=== PATIENT | male | born 1950 | race African-American/Black ===

== ENCOUNTER 2017-08-12 09:00 | Outpatient (CLI) | payer MEDICARE, OTHER, SELFPAY ==
[2017-08-12] VITALS (11 sets, daily range): BP systolic 126–161; BP diastolic 71–91; PULSE 69–83; RESP 18; TEMP 36.4–36.5; O2SAT 97–98; BMI 27.3
[2017-08-12 09:26] LABS: Eosinophils # 0.1 K/mm3 (0.0-0.4); Hematocrit 41.4 % (42.0-52.0); Hemoglobin 13.7 g/dL (14.1-18.0); Lymphocytes # 1.5 K/mm3 (0.7-4.5); Mean Corpuscular HGB Conc 33.2 g/dL (31.8-35.4); Mean Corpuscular Hemoglobin 29.2 pg (27.0-31.2); Mean Platelet Volume 8.8 fl (7.4-10.4); Monocytes # 0.3 K/mm3 (0.1-1.0); Monocytes % 8.8 % (1.7-9.3); Neutrophils # 1.4 K/mm3 (1.8-7.8); Neutrophils % 42.2 % (37.0-80.0); Platelet Count 234 K/mm3 (142-424); Red Blood Count 4.71 M/mm3 (4.60-6.20); Red Cell Distribution Width 12.9 % (11.5-17.5); White Blood Count 3.2 K/mm3 (4.8-10.8)
[2017-08-12 09:41] LABS: Alanine Aminotransferase 24 U/L (12-78); Albumin Level 3.2 gm/dL (3.4-5.0); Albumin/Globulin Ratio 0.9 (1.1-1.8); Alkaline Phosphatase 64 U/L (46-116); Anion Gap 9.8 mEq/L (5-15); Aspartate Amino Transferase 15 U/L (15-37); Bilirubin,Total 0.4 mg/dL (0.2-1.0); Blood Urea Nitrogen 15 mg/dL (7-18); Calcium 8.1 mg/dL (8.5-10.1); Carbon Dioxide 27 mmol/L (21.0-32.0); Chloride 107 mmol/L (98-107); Creatinine Clearance Estimated 85 mL/min (0-300); Creatinine,Serum 0.97 mg/dL (0.70-1.30); Estimated Glomerular Filt Rate 77 ml/min (>60); GFR (African American) 93 ML/MIN (>60); Globulin 3.6 gm/dl (1.3-3.2); Glucose 98 mg/dL (74-106); Potassium 3.8 mmoL/L (3.5-5.1); Sodium 140 mmol/L (136-145); Total Protein,Serum 6.8 gm/dL (6.4-8.2)
[2017-08-12 09:44] LABS: C-Reactive Protein < 0.2 mg/L (0.0-0.9)
== END 2017-08-12 12:50 | disposition home or self-care (01) ==
LOC: INF 09:25
PROVIDERS: Visit Provider Internal Medicine Gastroenterology
DX: K51.90 Ulcerative colitis, unspecified, without complications (principal)
CPT/HCPCS: 80053; 85025; 86140; 96365; 96366; 96413; 96415; J1745

== ENCOUNTER 2017-10-14 09:00 | Outpatient (CLI) | payer MEDICARE, OTHER, SELFPAY ==
[2017-10-14] VITALS (10 sets, daily range): BP systolic 129–173; BP diastolic 75–89; PULSE 64–82; RESP 18; TEMP 36.6; O2SAT 96–98; BMI 29.0
[2017-10-14 10:07] LABS: Basophils % 1.2 % (0.1-2.0); Hemoglobin 14.3 g/dL (14.1-18.0); Lymphocytes # 1.6 K/mm3 (0.7-4.5); Lymphocytes % 49.6 K/mm3 (10-50); Mean Corpuscular HGB Conc 32.6 g/dL (31.8-35.4); Mean Corpuscular Hemoglobin 28.9 pg (27.0-31.2); Mean Corpuscular Volume 88.7 fl (80-94); Mean Platelet Volume 9.4 fl (7.4-10.4); Monocytes # 0.3 K/mm3 (0.1-1.0); Monocytes % 8.5 % (1.7-9.3); Neutrophils # 1.3 K/mm3 (1.8-7.8); Neutrophils % 39.7 % (37.0-80.0); Platelet Count 191 K/mm3 (142-424); Red Blood Count 4.96 M/mm3 (4.60-6.20); Red Cell Distribution Width 12.8 % (11.5-17.5); White Blood Count 3.3 K/mm3 (4.8-10.8)
[2017-10-14 10:10] LABS: Alanine Aminotransferase 10 U/L (12-78); Albumin Level 3.4 gm/dL (3.4-5.0); Albumin/Globulin Ratio 0.9 (1.1-1.8); Alkaline Phosphatase 62 U/L (46-116); Anion Gap 10.6 mEq/L (5-15); Aspartate Amino Transferase 13 U/L (15-37); Bilirubin,Total 0.5 mg/dL (0.2-1.0); Blood Urea Nitrogen 17 mg/dL (7-18); Calcium 8.4 mg/dL (8.5-10.1); Carbon Dioxide 26 mmol/L (21.0-32.0); Chloride 108 mmol/L (98-107); Creatinine Clearance Estimated 91 mL/min (0-300); Creatinine,Serum 0.92 mg/dL (0.70-1.30); Estimated Glomerular Filt Rate 82 ml/min (>60); GFR (African American) 99 ML/MIN (>60); Globulin 3.9 gm/dl (1.3-3.2); Glucose 100 mg/dL (74-106); Potassium 3.6 mmoL/L (3.5-5.1); Sodium 141 mmol/L (136-145); Total Protein,Serum 7.3 gm/dL (6.4-8.2)
[2017-10-14 10:15] LABS: C-Reactive Protein < 0.2 mg/L (0.0-0.9)
--- NOTE | 2017-10-14 13:33 | XR_ITS ---
XR hip RT 2-3V w/pelvis HISTORY: ITS.REASON: RT HIP PAIN ON SCOLIOSIS PT ORDERING PHYSICIAN: Brayden Steward MD PATIENT AGE: 66 years COMPARISON: None FINDINGS: No fracture or dislocation. No lytic changes. Mild sclerosis superior aspect of left SI joint. Degenerative changes lower lumbar spine. There is an oval density overlying left iliac crest laterally at 12 mm and could be something within the soft tissues or within the bone itself. IMPRESSION: 1. Negative right hip. 2. Other findings as described above
== END 2017-10-14 13:20 | disposition home or self-care (01) ==
PROVIDERS: PCP Family Medicine; Visit Provider Internal Medicine Gastroenterology
DX: K51.90 Ulcerative colitis, unspecified, without complications (principal); M25.551 Pain in right hip
CPT/HCPCS: 73502; 80053; 85025; 86140; 96413; 96415; J1745

== ENCOUNTER 2017-12-16 08:35 | Outpatient (CLI) | payer MEDICARE, OTHER, SELFPAY ==
[2017-12-16] VITALS (9 sets, daily range): BP systolic 137–166; BP diastolic 83–96; PULSE 63–79; RESP 18; TEMP 36.6; O2SAT 97–98; BMI 28.3
[2017-12-16 09:32] LABS: Basophils % 1.1 % (0.1-2.0); Eosinophils # 0.1 K/mm3 (0.0-0.4); Eosinophils % 2.7 % (0.1-12.0); Hematocrit 43.6 % (42.0-52.0); Hemoglobin 14.7 g/dL (14.1-18.0); Lymphocytes # 1.8 K/mm3 (0.7-4.5); Lymphocytes % 46.5 K/mm3 (10-50); Mean Corpuscular HGB Conc 33.7 g/dL (31.8-35.4); Mean Corpuscular Hemoglobin 28.9 pg (27.0-31.2); Mean Corpuscular Volume 85.7 fl (80-94); Mean Platelet Volume 9.9 fl (7.4-10.4); Monocytes # 0.3 K/mm3 (0.1-1.0); Monocytes % 8.9 % (1.7-9.3); Neutrophils # 1.6 K/mm3 (1.8-7.8); Neutrophils % 40.8 % (37.0-80.0); Platelet Count 200 K/mm3 (142-424); Red Blood Count 5.09 M/mm3 (4.60-6.20); Red Cell Distribution Width 13.4 % (11.5-17.5); White Blood Count 3.8 K/mm3 (4.8-10.8)
[2017-12-16 09:33] LABS: Alanine Aminotransferase 22 U/L (12-78); Albumin Level 3.6 gm/dL (3.4-5.0); Albumin/Globulin Ratio 0.9 (1.1-1.8); Alkaline Phosphatase 73 U/L (46-116); Anion Gap 14.5 mEq/L (5-15); Aspartate Amino Transferase 13 U/L (15-37); Bilirubin,Total 0.6 mg/dL (0.2-1.0); Blood Urea Nitrogen 19 mg/dL (7-18); Calcium 8.8 mg/dL (8.5-10.1); Carbon Dioxide 25 mmol/L (21.0-32.0); Chloride 111 mmol/L (98-107); Creatinine Clearance Estimated 71 mL/min (0-300); Creatinine,Serum 1.22 mg/dL (0.70-1.30); Estimated Glomerular Filt Rate 59 ml/min (>60); GFR (African American) 71 ML/MIN (>60); Glucose 100 mg/dL (74-106); Potassium 3.5 mmoL/L (3.5-5.1); Sodium 147 mmol/L (136-145); Total Protein,Serum 7.6 gm/dL (6.4-8.2)
[2017-12-16 09:34] LABS: C-Reactive Protein < 0.2 mg/L (0.0-0.9)
== END 2017-12-16 12:40 | disposition home or self-care (01) ==
LOC: INF 08:35
PROVIDERS: PCP Family Medicine; Visit Provider Internal Medicine Gastroenterology
DX: K51.90 Ulcerative colitis, unspecified, without complications (principal)
CPT/HCPCS: 80053; 85025; 86140; 96413; 96415; J1745

== ENCOUNTER 2017-12-31 09:00 | Outpatient (RCR) | payer MEDICARE, OTHER, SELFPAY ==
--- NOTE | 2017-10-27 08:47 | HMH.PTOPEV ---
Rehab Outpatient Evaluation Rehab OP Evaluation Start: 10/27/17 08:34 Freq: Status: Active Protocol: Document 10/27/17 08:34 CINDY (Rec: 10/27/17 08:47 CINDY [id number]) Electronically Signed By Dru De Los Santos, PT 10/27/17 08:34 Outpatient Therapy Subjective History Subjective History Pt reports h/o chronic LBP beginning ~2 yrs ago, with most recent exacerbation beginning with insidious onset ~1 month ago. Pt reports mild R sided LBP with more intense R LE radicular s/s from R hip /glut area to mid thigh ( lateral). PMH: lumbar spine DDD, scoliosis Chief Complaint Pain Stiff Paresthesia Weakness Symptom Type Ache Throb Sharp Symptoms Relieved By Rest/Positioning Heat Ice Symptoms Aggravated By Sitting Standing Physical Activity Twisting Walking Lifting Prior Functional Limitations None Current Functional Limitations Lifting Housework Standing Sitting Walking Symptom Description Constant but Variable Level of pain today (0-10) 3 Pain scale - at its best (0-10) 3 Pain scale - at its worst (0-10) 8 Lumbopelvic Eval Posture Thoracic Spine Posture Standing Position Fixed Scoliosis on (R) Lumbar Spine Posture Standing Position Flattened Assistive device Assistive Devices None / NA Palapation tenderness right lumbar spinal tenderness Yes: 2/4 paraspinal tenderness Yes: 2/4 buttock tenderness Yes: 3/4 Accessory Movement T-spine Vertebrae Accessory Movements Central P/A Bejou that Elicit Symptoms T11 bilateral T12 bilateral L-spine Vertebrae Accessory Movements Central P/A Bejou that Elicit Symptoms L2 bilateral L3 bilateral L4 bilateral L5 bilateral Range of Motion Lumbar Spine Active Flexion Range of 0-60 Motion (degrees)
--- NOTE | 2017-12-29 11:09 | HMH.RHREAS ---
Rehab Reassessment Rehab OP Re-assessment Start: 12/29/17 08:13 Freq: Status: Active Protocol: Document 12/29/17 08:14 CINDY (Rec: 12/29/17 08:19 CINDY [id number]) Electronically Signed By Dru De Los Santos, PT 12/29/17 08:14 Rehab Re-assessment Subjective Subjective Pt reports intermittent R hip pain @8/10 on VAS, however, reports all other LBP related s/s are 85% better overall since I EVAL Objective Objective Notes AROM L-SPINE FLX 0-90, EXT 0- 30, R SB 0-28, L SB 0-35 MMT: B LE'S WFL TTP: R LUMBAR PARA. MM 07/31, R PIRI. MM 07/31 Assessment Progress Assessment Progressing as Expected Assessment Notes PT W/IMPROVED AROM, STRENGTH, AND TTP Patient goals met STG'S 03/04 LTG'S 10 Goals Not Met LTG'S 10 Plan Plan PT TO CONTINUE W/SKILLED P.T. TO MAKE FURTHER IMPROVEMENTS WITH ROM AND TTP TO ALLOW FOR OPTIMAL FUNCTION Frequency of Therapy 1-2X/WK Duration of therapy 2-4WKS Time and Billing Re-Eval Time 15 Re-Eval Billing Units 0 PHYSICIAN CERTIFICATION: I certify the specified therapy services for Simba Cuevas JR are required, authorized, and reviewed every 30 days.
== END 2017-12-31 09:01 | disposition home or self-care (01) ==
LOC: PT 09:00
PROVIDERS: PCP Family Medicine; Visit Provider Nurse Practitioner
DX: M25.551 Pain in right hip (principal)
CPT/HCPCS: 97010; 97012; 97014; 97035; 97110; 97164; G0283

== ENCOUNTER 2018-02-10 09:08 | Outpatient (CLI) | payer MEDICARE, OTHER, SELFPAY ==
[2018-02-10] VITALS (11 sets, daily range): BP systolic 132–172; BP diastolic 85–113; PULSE 70–88; RESP 16–18; TEMP 36.2; BMI 27.6
[2018-02-10 09:43] LABS: Basophils % 1.4 % (0.1-2.0); Eosinophils % 1.4 % (0.1-12.0); Hematocrit 44.1 % (42.0-52.0); Hemoglobin 13.9 g/dL (14.1-18.0); Lymphocytes # 1.4 K/mm3 (0.7-4.5); Lymphocytes % 46.7 K/mm3 (10-50); Mean Corpuscular HGB Conc 31.5 g/dL (31.8-35.4); Mean Corpuscular Hemoglobin 27.7 pg (27.0-31.2); Mean Corpuscular Volume 87.8 fl (80-94); Mean Platelet Volume 9.2 fl (7.4-10.4); Monocytes # 0.3 K/mm3 (0.1-1.0); Monocytes % 8.8 % (1.7-9.3); Neutrophils # 1.2 K/mm3 (1.8-7.8); Neutrophils % 41.7 % (37.0-80.0); Platelet Count 186 K/mm3 (142-424); Red Blood Count 5.02 M/mm3 (4.60-6.20); Red Cell Distribution Width 13.3 % (11.5-17.5); White Blood Count 2.9 K/mm3 (4.8-10.8)
[2018-02-10 09:59] LABS: Alanine Aminotransferase 23 U/L (12-78); Albumin Level 3.2 gm/dL (3.4-5.0); Albumin/Globulin Ratio 0.9 (1.1-1.8); Alkaline Phosphatase 66 U/L (46-116); Anion Gap 11.1 mEq/L (5-15); Aspartate Amino Transferase 10 U/L (15-37); Bilirubin,Total 0.5 mg/dL (0.2-1.0); Blood Urea Nitrogen 13 mg/dL (7-18); Calcium 8.1 mg/dL (8.5-10.1); Carbon Dioxide 26 mmol/L (21.0-32.0); Chloride 109 mmol/L (98-107); Creatinine Clearance Estimated 85 mL/min (0-300); Creatinine,Serum 0.96 mg/dL (0.70-1.30); Estimated Glomerular Filt Rate 78 ml/min (>60); GFR (African American) 94 ML/MIN (>60); Globulin 3.7 gm/dl (1.3-3.2); Glucose 94 mg/dL (74-106); Potassium 4.1 mmoL/L (3.5-5.1); Sodium 142 mmol/L (136-145); Total Protein,Serum 6.9 gm/dL (6.4-8.2)
[2018-02-10 10:00] LABS: C-Reactive Protein < 0.2 mg/L (0.0-0.9)
== END 2018-02-10 13:05 | disposition home or self-care (01) ==
LOC: INF 09:08
PROVIDERS: PCP Family Medicine; Visit Provider Internal Medicine Gastroenterology
DX: K51.90 Ulcerative colitis, unspecified, without complications (principal)
CPT/HCPCS: 80053; 85025; 86140; 96413; 96415; J1745

== ENCOUNTER 2018-04-01 09:15 | Outpatient (CLI) | payer MEDICARE, OTHER, SELFPAY ==
[2018-04-01] VITALS (7 sets, daily range): BP systolic 140–150; BP diastolic 71–85; PULSE 72–92; RESP 18; TEMP 36.6; O2SAT 96–98; BMI 27.6
[2018-04-01 09:49] LABS: Basophils % 0.8 % (0.1-2.0); Eosinophils # 0.1 K/mm3 (0.0-0.4); Eosinophils % 1.6 % (0.1-12.0); Hematocrit 41.4 % (42.0-52.0); Hemoglobin 13.6 g/dL (14.1-18.0); Lymphocytes # 1.5 K/mm3 (0.7-4.5); Lymphocytes % 43.4 K/mm3 (10-50); Mean Corpuscular HGB Conc 32.9 g/dL (31.8-35.4); Mean Corpuscular Hemoglobin 28.5 pg (27.0-31.2); Mean Corpuscular Volume 86.6 fl (80-94); Monocytes # 0.3 K/mm3 (0.1-1.0); Monocytes % 7.2 % (1.7-9.3); Neutrophils # 1.6 K/mm3 (1.8-7.8); Neutrophils % 47.1 % (37.0-80.0); Platelet Count 212 K/mm3 (142-424); Red Blood Count 4.77 M/mm3 (4.60-6.20); White Blood Count 3.4 K/mm3 (4.8-10.8)
[2018-04-01 10:01] LABS: Alanine Aminotransferase 11 U/L (12-78); Albumin Level 3.1 gm/dL (3.4-5.0); Albumin/Globulin Ratio 0.7 (1.1-1.8); Alkaline Phosphatase 82 U/L (46-116); Anion Gap 12.6 mEq/L (5-15); Aspartate Amino Transferase 13 U/L (15-37); Bilirubin,Total 0.5 mg/dL (0.2-1.0); Blood Urea Nitrogen 16 mg/dL (7-18); C-Reactive Protein 0.7 mg/L (0.0-0.9); Calcium 8.3 mg/dL (8.5-10.1); Carbon Dioxide 25 mmol/L (21.0-32.0); Chloride 111 mmol/L (98-107); Creatinine Clearance Estimated 74 mL/min (0-300); Creatinine,Serum 1.15 mg/dL (0.70-1.30); Estimated Glomerular Filt Rate 63 ml/min (>60); GFR (African American) 77 ML/MIN (>60); Globulin 4.2 gm/dl (1.3-3.2); Glucose 105 mg/dL (74-106); Potassium 3.6 mmoL/L (3.5-5.1); Sodium 145 mmol/L (136-145); Total Protein,Serum 7.3 gm/dL (6.4-8.2)
== END 2018-04-01 12:30 | disposition home or self-care (01) ==
LOC: INF 09:15
PROVIDERS: PCP Family Medicine; Visit Provider Internal Medicine Gastroenterology
DX: K51.90 Ulcerative colitis, unspecified, without complications (principal)
CPT/HCPCS: 80053; 85025; 86140; 96413; 96415; J1745

== ENCOUNTER 2018-06-01 09:02 | Outpatient (CLI) | payer MEDICARE, OTHER, SELFPAY ==
[2018-06-01] VITALS (8 sets, daily range): BP systolic 139–163; BP diastolic 74–91; PULSE 73–85; RESP 18–20; TEMP 36.4–36.6; O2SAT 95–97; BMI 27.6
[2018-06-01 09:41] LABS: Basophils % 0.9 % (0.1-2.0); Eosinophils # 0.1 K/mm3 (0.0-0.4); Eosinophils % 1.5 % (0.1-12.0); Hematocrit 45.7 % (42.0-52.0); Hemoglobin 14.4 g/dL (14.1-18.0); Lymphocytes # 1.7 K/mm3 (0.7-4.5); Lymphocytes % 51.7 K/mm3 (10-50); Mean Corpuscular HGB Conc 31.4 g/dL (31.8-35.4); Mean Corpuscular Hemoglobin 28.2 pg (27.0-31.2); Mean Corpuscular Volume 89.6 fl (80-94); Monocytes # 0.2 K/mm3 (0.1-1.0); Monocytes % 6.8 % (1.7-9.3); Neutrophils # 1.3 K/mm3 (1.8-7.8); Platelet Count 206 K/mm3 (142-424); Red Cell Distribution Width 14.1 % (11.5-17.5); White Blood Count 3.2 K/mm3 (4.8-10.8)
[2018-06-01 09:44] LABS: MANUAL DIFFERENTIAL MANUAL DIFFERENTIAL (MANUAL DIFF)
[2018-06-01 09:50] LABS: Alanine Aminotransferase 26 U/L (12-78); Albumin Level 3.2 gm/dL (3.4-5.0); Albumin/Globulin Ratio 0.8 (1.1-1.8); Alkaline Phosphatase 84 U/L (46-116); Anion Gap 10.7 mEq/L (5-15); Aspartate Amino Transferase 13 U/L (15-37); Bilirubin,Total 0.4 mg/dL (0.2-1.0); Blood Urea Nitrogen 20 mg/dL (7-18); C-Reactive Protein < 0.2 mg/L (0.0-0.9); Calcium 8.3 mg/dL (8.5-10.1); Carbon Dioxide 28 mmol/L (21.0-32.0); Chloride 108 mmol/L (98-107); Creatinine Clearance Estimated 72 mL/min (0-300); Creatinine,Serum 1.17 mg/dL (0.70-1.30); Estimated Glomerular Filt Rate 62 ml/min (>60); GFR (African American) 75 ML/MIN (>60); Globulin 4.2 gm/dl (1.3-3.2); Glucose 93 mg/dL (74-106); Potassium 3.7 mmoL/L (3.5-5.1); Sodium 143 mmol/L (136-145); Total Protein,Serum 7.4 gm/dL (6.4-8.2)
[2018-06-01 10:02] LABS: Lymphocytes % 49 % (10-50); Monocytes % 7 % (2-9); Neutrophils % 42 % (42-76); Platelet Estimate Normal; RBC Morphology Normal; Total Cells Counted 100
== END 2018-06-01 12:50 | disposition home or self-care (01) ==
LOC: INF 09:02
PROVIDERS: Visit Provider Internal Medicine Gastroenterology
DX: K51.90 Ulcerative colitis, unspecified, without complications (principal)
CPT/HCPCS: 80053; 85007; 85025; 86140; 86480; 96413; 96415; J1745

== ENCOUNTER → 2018-07-03 07:48 | Outpatient (CLI) | payer MEDICARE, OTHER, SELFPAY ==
--- NOTE | 2018-07-03 07:52 | MR_ITS ---
MR lumbar spine wo con, MR 3-d myelogram/MRCP HISTORY: LBP on RT side X1YR. Pain and numbness down RT leg and into hip. Weakness RT leg. No trauma. NO HX back surgery. ITS.REASON: LUMBAR SPINE PAIN ORDERING PHYSICIAN: Rosa Jones MD PATIENT AGE: 67 years Comparison: X-RAY 02-14-15 TECHNIQUE: Standard multiplanar multiecho sequences are performed without contrast. 3-D MIP and myelographic images are also rendered and reviewed FINDINGS: There is upper lumbar scoliosis convex right measuring 30 degrees and lower lumbar scoliosis convex left measuring 26 degrees. There is diffuse lumbar spondylosis as described below. The spinal cord and at the T12-L1 level. T11-T12: Degenerative disc disease with small left paracentral/foraminal disc protrusion causing left lateral recess narrowing and moderate left-sided foraminal narrowing. There is facet hypertrophic change with moderate to severe bilateral foraminal narrowing. T12-L1: Degenerative disc disease with bulging disc along with facet and ligamentum flavum hypertrophy with mild bilateral foraminal narrowing. L1-L2: Degenerative disc disease with bulging disc with moderate facet and ligamentum flavum hypertrophy greater on the left with moderate left lateral recess narrowing and severe left-sided foraminal narrowing. There are type III endplate changes L2-L3: Degenerative disc disease with bulging disc with facet and ligamentum flavum hypertrophy and moderate bilateral lateral recess narrowing with severe left-sided foraminal narrowing. L3-L4: Degenerative disc disease with bulging disc. There is facet hypertrophic change which is greater on the right a bone spur from the facets projecting medially with impingement upon the right L4 nerve root with moderate right-sided foraminal narrowing. There is minimal retrolisthesis of L3 of 2 to 3 mm. L4-L5: Severe degenerative disc disease with bulging disc. There is a small right paracentral/foraminal disc osteophyte complex that are best detected on sagittal images with moderate to severe right-sided foraminal narrowing. Type II endplate changes. L5-S1: Facet and ligamentum flavum hypertrophy with concentric bulging disc with moderate to severe bilateral foraminal narrowing. Incidental left renal cyst noted at 19 mm. IMPRESSION: Abnormal MRI of the lumbar spine. There is scoliosis with severe spondylosis with multilevel degenerative disc disease with bulging discs, disc osteophyte complexes, with facet arthritic change and facet and ligamentum flavum hypertrophy with very levels of foraminal and lateral recess narrowing. Please see above for description at each level. No extruded herniated disc or canal stenosis is evident.
== END ==
PROVIDERS: PCP Family Medicine; Visit Provider Family Medicine
DX: M54.5 Low back pain (principal)
CPT/HCPCS: 72148; 76376

== ENCOUNTER 2018-08-04 08:29 | Outpatient (CLI) | payer MEDICARE, OTHER, SELFPAY ==
[2018-08-04] VITALS (8 sets, daily range): BP systolic 135–145; BP diastolic 71–88; PULSE 67–73; RESP 18–20; TEMP 36.9; O2SAT 97–98; BMI 27.6
[2018-08-04 08:51] LABS: Basophils % 0.7 % (0.1-2.0); Eosinophils # 0.1 K/mm3 (0.0-0.4); Eosinophils % 1.9 % (0.1-12.0); Hematocrit 46.5 % (42.0-52.0); Hemoglobin 15.5 g/dL (14.1-18.0); Lymphocytes # 1.9 K/mm3 (0.7-4.5); Lymphocytes % 44.7 % (10-50); Mean Corpuscular HGB Conc 33.4 g/dL (31.8-35.4); Mean Corpuscular Hemoglobin 29.2 pg (27.0-31.2); Mean Corpuscular Volume 87.6 fl (80-94); Mean Platelet Volume 8.5 fl (7.4-10.4); Monocytes # 0.3 K/mm3 (0.1-1.0); Monocytes % 6.2 % (1.7-9.3); Neutrophils # 1.9 K/mm3 (1.8-7.8); Neutrophils % 46.5 % (37.0-80.0); Platelet Count 208 K/mm3 (142-424); Red Cell Distribution Width 13.7 % (11.5-17.5); White Blood Count 4.2 K/mm3 (4.8-10.8)
[2018-08-04 09:05] LABS: Alanine Aminotransferase 26 U/L (12-78); Albumin Level 3.4 gm/dL (3.4-5.0); Albumin/Globulin Ratio 0.8 (1.1-1.8); Alkaline Phosphatase 78 U/L (46-116); Anion Gap 13.9 mEq/L (5-15); Aspartate Amino Transferase 16 U/L (15-37); Bilirubin,Total 0.8 mg/dL (0.2-1.0); Blood Urea Nitrogen 15 mg/dL (7-18); Calcium 8.4 mg/dL (8.5-10.1); Carbon Dioxide 24 mmol/L (21.0-32.0); Chloride 107 mmol/L (98-107); Creatinine Clearance Estimated 78 mL/min (50-200); Creatinine,Serum 1.09 mg/dL (0.70-1.30); Estimated Glomerular Filt Rate 67 ml/min (>60); GFR (African American) 81 ML/MIN (>60); Globulin 4.1 gm/dl (1.3-3.2); Glucose 99 mg/dL (74-106); Potassium 3.9 mmoL/L (3.5-5.1); Sodium 141 mmol/L (136-145); Total Protein,Serum 7.5 gm/dL (6.4-8.2)
[2018-08-04 09:46] LABS: C-Reactive Protein < 0.2 mg/L (0.0-0.9)
== END 2018-08-04 11:45 | disposition home or self-care (01) ==
PROVIDERS: Visit Provider Internal Medicine Gastroenterology
DX: K51.90 Ulcerative colitis, unspecified, without complications (principal)
CPT/HCPCS: 80053; 85025; 86140; 96413; 96415; J1745

== ENCOUNTER 2018-09-29 08:05 | Outpatient (CLI) | payer MEDICARE, OTHER, SELFPAY ==
[2018-09-29] VITALS (9 sets, daily range): BP systolic 140–169; BP diastolic 87–101; PULSE 72–82; RESP 16; TEMP 36.3; O2SAT 99; BMI 30.5
[2018-09-29 08:56] LABS: Basophils % 0.8 % (0.1-2.0); Eosinophils # 0.1 K/mm3 (0.0-0.4); Eosinophils % 2.8 % (0.1-12.0); Hematocrit 43.6 % (42.0-52.0); Hemoglobin 14.6 g/dL (14.1-18.0); Lymphocytes # 1.6 K/mm3 (0.7-4.5); Lymphocytes % 34.7 % (10-50); Mean Corpuscular HGB Conc 33.6 g/dL (31.8-35.4); Mean Corpuscular Hemoglobin 29.9 pg (27.0-31.2); Mean Corpuscular Volume 89.1 fl (80-94); Mean Platelet Volume 8.5 fl (7.4-10.4); Monocytes # 0.3 K/mm3 (0.1-1.0); Monocytes % 7.2 % (1.7-9.3); Neutrophils # 2.5 K/mm3 (1.8-7.8); Neutrophils % 54.5 % (37.0-80.0); Platelet Count 232 K/mm3 (142-424); Red Blood Count 4.89 M/mm3 (4.60-6.20); Red Cell Distribution Width 13.4 % (11.5-17.5); White Blood Count 4.5 K/mm3 (4.8-10.8)
[2018-09-29 09:11] LABS: Alanine Aminotransferase 20 U/L (12-78); Albumin Level 3.2 gm/dL (3.4-5.0); Albumin/Globulin Ratio 0.7 (1.1-1.8); Alkaline Phosphatase 85 U/L (46-116); Anion Gap 11.7 mEq/L (5-15); Aspartate Amino Transferase 8 U/L (15-37); Bilirubin,Total 0.4 mg/dL (0.2-1.0); Blood Urea Nitrogen 16 mg/dL (7-18); C-Reactive Protein 0.3 mg/L (0.0-0.9); Calcium 8.7 mg/dL (8.5-10.1); Carbon Dioxide 29 mmol/L (21.0-32.0); Chloride 107 mmol/L (98-107); Creatinine Clearance Estimated 90 mL/min (50-200); Creatinine,Serum 1.04 mg/dL (0.70-1.30); Estimated Glomerular Filt Rate 71 ml/min (>60); GFR (African American) 86 ML/MIN (>60); Globulin 4.3 gm/dl (1.3-3.2); Glucose 97 mg/dL (74-106); Potassium 3.7 mmoL/L (3.5-5.1); Sodium 144 mmol/L (136-145); Total Protein,Serum 7.5 gm/dL (6.4-8.2)
== END 2018-09-29 11:50 | disposition home or self-care (01) ==
LOC: INF 08:16
PROVIDERS: Visit Provider Internal Medicine Gastroenterology
DX: K51.90 Ulcerative colitis, unspecified, without complications (principal)
CPT/HCPCS: 80053; 85025; 86140; 96413; 96415; J1745

== ENCOUNTER → 2018-10-27 10:06 | Outpatient (CLI) | payer MEDICARE, OTHER, SELFPAY ==
[2018-10-31 18:07] LABS: Calprotectin, Fecal 740 ug/g (0-120)
== END ==
PROVIDERS: Visit Provider Physician Assistant
DX: K51.90 Ulcerative colitis, unspecified, without complications (principal)
CPT/HCPCS: 83993

== ENCOUNTER → 2018-11-13 18:54 | Outpatient (CLI) | payer MEDICARE, OTHER, SELFPAY ==
[2018-11-13 11:38] VITALS: BMI 30.5
--- NOTE | 2018-11-13 18:57 | PC.NURSE ---
PT GOT LABS ONLY PER LAB
[2018-11-21 06:44] LABS: Anti-Infliximab Antibody <22 ng/mL (.); Infliximab Drug Level 1.9 ug/mL (.)
== END ==
PROVIDERS: Visit Provider Physician Assistant
DX: K51.90 Ulcerative colitis, unspecified, without complications (principal)
CPT/HCPCS: 36415; 80299; 82397

== ENCOUNTER 2018-11-27 08:00 | Outpatient (CLI) | payer MEDICARE, OTHER, SELFPAY ==
[2018-11-27] VITALS (10 sets, daily range): BP systolic 136–188; BP diastolic 83–101; PULSE 65–80; RESP 16–18; TEMP 36.3; O2SAT 99; BMI 30.5
[2018-11-27 08:36] LABS: Basophils % 0.6 % (0.1-2.0); Eosinophils # 0.1 K/mm3 (0.0-0.4); Eosinophils % 1.9 % (0.1-12.0); Hematocrit 43.9 % (42.0-52.0); Hemoglobin 14.8 g/dL (14.1-18.0); Lymphocytes # 2.2 K/mm3 (0.7-4.5); Lymphocytes % 48.9 % (10-50); Mean Corpuscular HGB Conc 33.8 g/dL (31.8-35.4); Mean Corpuscular Hemoglobin 29.4 pg (27.0-31.2); Mean Platelet Volume 8.1 fl (7.4-10.4); Monocytes # 0.3 K/mm3 (0.1-1.0); Monocytes % 6.3 % (1.7-9.3); Neutrophils # 1.9 K/mm3 (1.8-7.8); Neutrophils % 42.3 % (37.0-80.0); Platelet Count 235 K/mm3 (142-424); Red Blood Count 5.05 M/mm3 (4.60-6.20); Red Cell Distribution Width 13.2 % (11.5-17.5); White Blood Count 4.4 K/mm3 (4.8-10.8)
[2018-11-27 08:49] LABS: Alanine Aminotransferase 22 U/L (12-78); Albumin Level 3.3 gm/dL (3.4-5.0); Albumin/Globulin Ratio 0.7 (1.1-1.8); Alkaline Phosphatase 83 U/L (46-116); Anion Gap 10.6 mEq/L (5-15); Aspartate Amino Transferase 8 U/L (15-37); Bilirubin,Total 0.6 mg/dL (0.2-1.0); Blood Urea Nitrogen 11 mg/dL (7-18); Calcium 8.6 mg/dL (8.5-10.1); Carbon Dioxide 28 mmol/L (21.0-32.0); Chloride 105 mmol/L (98-107); Creatinine Clearance Estimated 88 mL/min (50-200); Creatinine,Serum 1.05 mg/dL (0.70-1.30); Estimated Glomerular Filt Rate 70 ml/min (>60); GFR (African American) 85 ML/MIN (>60); Globulin 4.6 gm/dl (1.3-3.2); Glucose 92 mg/dL (74-106); Potassium 3.6 mmoL/L (3.5-5.1); Sodium 140 mmol/L (136-145); Total Protein,Serum 7.9 gm/dL (6.4-8.2)
[2018-11-27 08:51] LABS: C-Reactive Protein < 0.2 mg/L (0.0-0.9)
== END 2018-11-27 11:45 | disposition home or self-care (01) ==
LOC: INF 08:11
PROVIDERS: Visit Provider Physician Assistant
DX: K51.90 Ulcerative colitis, unspecified, without complications (principal)
CPT/HCPCS: 80053; 85025; 86140; 96413; 96415; J1745

== ENCOUNTER 2019-01-19 13:00 | Outpatient (CLI) | payer MEDICARE, OTHER, SELFPAY ==
[2019-01-19] VITALS (11 sets, daily range): BP systolic 105–154; BP diastolic 70–99; PULSE 77–99; RESP 16–18; O2SAT 93–98; BMI 27.6
[2019-01-19 13:30] LABS: Basophils # 0.1 K/mm3 (0-0.2); Basophils % 1.2 % (0.1-2.0); Eosinophils # 0.1 K/mm3 (0.0-0.4); Eosinophils % 1.6 % (0.1-12.0); Hematocrit 37.5 % (42.0-52.0); Hemoglobin 11.4 g/dL (14.1-18.0); Lymphocytes # 1.4 K/mm3 (0.7-4.5); Lymphocytes % 27.7 % (10-50); Mean Corpuscular HGB Conc 30.4 g/dL (31.8-35.4); Mean Corpuscular Hemoglobin 26.9 pg (27.0-31.2); Mean Corpuscular Volume 88.6 fl (80-94); Monocytes # 0.4 K/mm3 (0.1-1.0); Monocytes % 8.3 % (1.7-9.3); Neutrophils % 61.2 % (37.0-80.0); Platelet Count 395 K/mm3 (142-424); Red Blood Count 4.23 M/mm3 (4.60-6.20); Red Cell Distribution Width 13.7 % (11.5-17.5)
[2019-01-19 13:40] LABS: Alanine Aminotransferase 17 U/L (12-78); Albumin Level 2.7 gm/dL (3.4-5.0); Albumin/Globulin Ratio 0.5 (1.1-1.8); Alkaline Phosphatase 133 U/L (46-116); Anion Gap 13.5 mEq/L (5-15); Aspartate Amino Transferase 11 U/L (15-37); Bilirubin,Total 0.4 mg/dL (0.2-1.0); Blood Urea Nitrogen 11 mg/dL (7-18); C-Reactive Protein 2.9 mg/L (0.0-0.9); Calcium 8.6 mg/dL (8.5-10.1); Carbon Dioxide 27 mmol/L (21.0-32.0); Chloride 104 mmol/L (98-107); Creatinine Clearance Estimated 79 mL/min (50-200); Creatinine,Serum 1.06 mg/dL (0.70-1.30); Estimated Glomerular Filt Rate 69 ml/min (>60); GFR (African American) 84 ML/MIN (>60); Globulin 5.3 gm/dl (1.3-3.2); Glucose 92 mg/dL (74-106); Potassium 3.5 mmoL/L (3.5-5.1); Sodium 141 mmol/L (136-145)
== END 2019-01-19 16:20 | disposition home or self-care (01) ==
LOC: INF 13:04
PROVIDERS: Visit Provider Internal Medicine Gastroenterology
DX: K51.90 Ulcerative colitis, unspecified, without complications (principal)
CPT/HCPCS: 80053; 85025; 86140; 96413; 96415; J1745

== ENCOUNTER 2019-03-16 13:09 | Outpatient (CLI) | payer MEDICARE, OTHER, SELFPAY ==
[2019-03-16] VITALS (10 sets, daily range): BP systolic 99–165; BP diastolic 71–104; PULSE 66–95; RESP 16–18; TEMP 36.4; O2SAT 96; BMI 27.6
[2019-03-16 13:33] LABS: Basophils % 0.9 % (0.1-2.0); Hemoglobin 11.3 g/dL (14.1-18.0); Lymphocytes # 1.7 K/mm3 (0.7-4.5); Lymphocytes % 44.2 % (10-50); Mean Corpuscular HGB Conc 30.4 g/dL (31.8-35.4); Mean Corpuscular Hemoglobin 24.1 pg (27.0-31.2); Mean Corpuscular Volume 79.2 fl (80-94); Mean Platelet Volume 8.4 fl (7.4-10.4); Monocytes # 0.3 K/mm3 (0.1-1.0); Neutrophils # 1.8 K/mm3 (1.8-7.8); Neutrophils % 46.9 % (37.0-80.0); Platelet Count 362 K/mm3 (142-424); Red Blood Count 4.68 M/mm3 (4.60-6.20); Red Cell Distribution Width 14.9 % (11.5-17.5); White Blood Count 3.9 K/mm3 (4.8-10.8)
[2019-03-16 14:11] LABS: Alanine Aminotransferase 13 U/L (12-78); Albumin Level 2.8 gm/dL (3.4-5.0); Albumin/Globulin Ratio 0.6 (1.1-1.8); Alkaline Phosphatase 96 U/L (46-116); Anion Gap 13.8 mEq/L (5-15); Aspartate Amino Transferase 9 U/L (15-37); Bilirubin,Total 0.3 mg/dL (0.2-1.0); Blood Urea Nitrogen 11 mg/dL (7-18); C-Reactive Protein 2.4 mg/dL (0.0-0.9); Calcium 8.6 mg/dL (8.5-10.1); Carbon Dioxide 26 mmol/L (21.0-32.0); Chloride 107 mmol/L (98-107); Creatinine Clearance Estimated 83 mL/min (50-200); Creatinine,Serum 1.01 mg/dL (0.70-1.30); Estimated Glomerular Filt Rate 73 ml/min (>60); GFR (African American) 89 ML/MIN (>60); Glucose 105 mg/dL (74-106); Potassium 3.8 mmoL/L (3.5-5.1); Sodium 143 mmol/L (136-145); Total Protein,Serum 7.8 gm/dL (6.4-8.2)
[2019-03-16 14:48] LABS: Ferritin 33 ng/mL (8-388)
[2019-03-18 08:19] LABS: Iron 23 ug/dL (38-169); UIBC 229 ug/dL (111-343)
[2019-03-19 09:41] LABS: Iron Saturation 9 % (15-55)
== END 2019-03-16 16:38 | disposition home or self-care (01) ==
LOC: INF 13:09
PROVIDERS: Visit Provider Internal Medicine Gastroenterology
DX: K51.90 Ulcerative colitis, unspecified, without complications (principal)
CPT/HCPCS: 80053; 82728; 83540; 83550; 85025; 86140; 96413; 96415; J1745

== ENCOUNTER → 2019-03-17 10:37 | Outpatient (CLI) | payer MEDICARE, OTHER, SELFPAY ==
[2019-03-19 09:51] LABS: Calprotectin, Fecal 322 ug/g (0-120)
== END ==
PROVIDERS: Visit Provider Physician Assistant
DX: K51.90 Ulcerative colitis, unspecified, without complications (principal)
CPT/HCPCS: 83993

== ENCOUNTER 2019-06-02 08:00 | Outpatient (CLI) | payer MEDICARE, OTHER, SELFPAY ==
[2019-06-02] VITALS (10 sets, daily range): BP systolic 129–155; BP diastolic 71–90; PULSE 67–83; RESP 16–18; TEMP 36.7; BMI 27.6
[2019-06-02 08:52] LABS: Basophils % 0.6 % (0.1-2.0); Eosinophils # 0.1 K/mm3 (0.0-0.4); Eosinophils % 1.9 % (0.1-12.0); Hemoglobin 12.5 g/dL (14.1-18.0); Lymphocytes # 1.9 K/mm3 (0.7-4.5); Lymphocytes % 41.8 % (10-50); Mean Corpuscular HGB Conc 30.6 g/dL (31.8-35.4); Mean Corpuscular Hemoglobin 25.2 pg (27.0-31.2); Mean Corpuscular Volume 82.6 fl (80-94); Mean Platelet Volume 9.1 fl (7.4-10.4); Monocytes # 0.3 K/mm3 (0.1-1.0); Monocytes % 6.2 % (1.7-9.3); Neutrophils # 2.2 K/mm3 (1.8-7.8); Neutrophils % 49.5 % (37.0-80.0); Platelet Count 256 K/mm3 (142-424); Red Blood Count 4.96 M/mm3 (4.60-6.20); Red Cell Distribution Width 15.8 % (11.5-17.5); White Blood Count 4.5 K/mm3 (4.8-10.8)
[2019-06-02 09:12] LABS: Alanine Aminotransferase 15 U/L (12-78); Albumin Level 3.2 gm/dL (3.4-5.0); Albumin/Globulin Ratio 0.7 (1.1-1.8); Alkaline Phosphatase 93 U/L (46-116); Anion Gap 11.1 mEq/L (5-15); Aspartate Amino Transferase 10 U/L (15-37); Bilirubin,Total 0.5 mg/dL (0.2-1.0); Blood Urea Nitrogen 12 mg/dL (7-18); Calcium 8.7 mg/dL (8.5-10.1); Carbon Dioxide 27 mmol/L (21.0-32.0); Chloride 106 mmol/L (98-107); Creatinine Clearance Estimated 84 mL/min (50-200); Creatinine,Serum 0.97 mg/dL (0.70-1.30); Estimated Glomerular Filt Rate 77 ml/min (>60); GFR (African American) 93 ML/MIN (>60); Globulin 4.4 gm/dl (1.3-3.2); Glucose 94 mg/dL (74-106); Potassium 4.1 mmoL/L (3.5-5.1); Sodium 140 mmol/L (136-145); Total Protein,Serum 7.6 gm/dL (6.4-8.2)
[2019-06-02 09:13] LABS: C-Reactive Protein < 0.2 mg/dL (0.0-0.9)
== END 2019-06-02 12:25 | disposition home or self-care (01) ==
LOC: INF 08:18
PROVIDERS: Visit Provider Internal Medicine Gastroenterology
DX: K51.90 Ulcerative colitis, unspecified, without complications (principal)
CPT/HCPCS: 80053; 85025; 86140; 96413; 96415; J1745

== ENCOUNTER 2019-06-03 08:00 | Outpatient (RCR) | payer MEDICARE, OTHER, SELFPAY | END 2019-06-03 08:05 | disposition home or self-care (01) | LOC: PT 08:00 | PROVIDERS: Visit Provider Neurological Surgery | DX: M54.5 Low back pain (principal) | CPT/HCPCS: 97010; 97110; 97163 ==

== ENCOUNTER 2019-07-27 08:29 | Outpatient (CLI) | payer MEDICARE, OTHER, SELFPAY ==
[2019-07-27] VITALS (8 sets, daily range): BP systolic 131–173; BP diastolic 73–95; PULSE 73–94; RESP 20; TEMP 36.7; O2SAT 98–99
== END 2019-07-27 12:00 | disposition home or self-care (01) ==
LOC: INF 08:29
PROVIDERS: Visit Provider Physician Assistant
DX: K51.90 Ulcerative colitis, unspecified, without complications (principal)
CPT/HCPCS: 96413; 96415; J1745

== ENCOUNTER → 2019-07-30 09:21 | Outpatient (CLI) | payer OTHER, SELFPAY ==
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
== END ==
PROVIDERS: PCP Nurse Practitioner Family; Visit Provider Nurse Practitioner Family
DX: R07.81 Pleurodynia (principal); M41.124 Adolescent idiopathic scoliosis, thoracic region; M54.6 Pain in thoracic spine; V89.2XXA Person injured in unspecified motor-vehicle accident, traffic, initial encounter
CPT/HCPCS: 71101; 72072

== ENCOUNTER 2019-09-29 09:01 | Outpatient (CLI) | payer MEDICARE, OTHER, SELFPAY ==
[2019-09-29] VITALS (11 sets, daily range): BP systolic 141–172; BP diastolic 82–104; PULSE 77–83; RESP 18; TEMP 36.5; O2SAT 98–99; BMI 27.6
[2019-09-29 09:22] LABS: Basophils % 1.2 % (0.1-2.0); Chloride 107 mmol/L (98-107); Eosinophils % 0.8 % (0.1-12.0); Hematocrit 43.7 % (42.0-52.0); Hemoglobin 13.7 g/dL (14.1-18.0); Lymphocytes # 1.9 K/mm3 (0.7-4.5); Lymphocytes % 57.6 % (10-50); Mean Corpuscular HGB Conc 31.4 g/dL (31.8-35.4); Mean Corpuscular Hemoglobin 26.4 pg (27.0-31.2); Mean Platelet Volume 9.2 fl (7.4-10.4); Monocytes # 0.2 K/mm3 (0.1-1.0); Monocytes % 7.1 % (1.7-9.3); Neutrophils # 1.1 K/mm3 (1.8-7.8); Neutrophils % 33.3 % (37.0-80.0); Platelet Count 227 K/mm3 (142-424); Potassium 3.8 mmoL/L (3.5-5.1); Red Blood Count 5.19 M/mm3 (4.60-6.20); Red Cell Distribution Width 14.3 % (11.5-17.5); Sodium 141 mmol/L (136-145); White Blood Count 3.3 K/mm3 (4.8-10.8)
[2019-09-29 09:24] LABS: Alanine Aminotransferase 15 U/L (12-78); Alkaline Phosphatase 80 U/L (38-126); Aspartate Amino Transferase 18 U/L (17-59); Bilirubin,Total 0.6 mg/dl (0.2-1.3); Blood Urea Nitrogen 15 mg/dl (9-20); Creatinine Clearance Estimated 84 mL/min (50-200); Estimated Glomerular Filt Rate 74 ml/min (>60); GFR (African American) 90 ML/MIN (>60); MANUAL DIFFERENTIAL MANUAL DIFFERENTIAL (MANUAL DIFF)
[2019-09-29 09:25] LABS: Albumin/Globulin Ratio 1.1 (1.1-1.8); Anion Gap 9.8 mEq/L (5-15); Calcium 8.8 mg/dl (8.4-10.2); Carbon Dioxide 28 mmol/L (22.0-30.0); Globulin 3.5 g/dL (1.3-3.2); Glucose 85 mg/dl (74-100); Total Protein,Serum 7.5 g/dl (6.3-8.2)
[2019-09-29 09:32] LABS: Lymphocytes % 57 % (10-50); Monocytes % 8 % (2-9); Neutrophils % 31 % (42-76); Platelet Estimate Normal; RBC Morphology Normal; Total Cells Counted 100
[2019-09-29 09:54] LABS: C-Reactive Protein 0.7 mg/L (0-4)
== END 2019-09-29 12:21 | disposition home or self-care (01) ==
LOC: INF 09:01
PROVIDERS: Visit Provider Physician Assistant
DX: K51.90 Ulcerative colitis, unspecified, without complications (principal)
CPT/HCPCS: 80053; 85007; 85025; 86140; 96413; 96415; J1745

== ENCOUNTER → 2019-10-12 12:18 | Outpatient (CLI) | payer MEDICARE, OTHER, SELFPAY ==
--- NOTE | 2019-10-12 12:29 | XR_ITS ---
PROCEDURE: XR MULTIPLE SPINE 4-5V CLINICAL INDICATION: THORACIC AND LOW BACK PAIN COMPARISON: LS5 LUMBAR SPINE 5 VIEWS from 02/14/2015 XR THORACIC SPINE 3V from 07/30/2019 FINDINGS: AP and lateral views are obtained of the thoracic lumbar spine. Status post prior thoracic and lumbar surgery with inter pedicular screws from T10 L5 and including 2 inter pedicular screws at S1 and S2 with the S2 screws extending into the ileitis on both sides with rods. Disc spacer devices are present at L2-L3 L3-L4 and L5-S1. There is some thoracolumbar scoliosis convex right with multilevel degenerative changes in the lower thoracic and lumbar spine. There is degenerative disc disease from T12-S1. No acute fracture or dislocation. No lytic or blastic change. IMPRESSION: Status post prior posterior fusion with underlying degenerative disc disease and thoracolumbar scoliosis convex right Dictated by: Carlos Pena MD 10/12/2019 13:13 Electronically signed by Carlos Pena MD in [place] 10/12/2019 13:13
== END ==
PROVIDERS: Visit Provider Neurological Surgery
DX: M54.6 Pain in thoracic spine (principal); M54.5 Low back pain
CPT/HCPCS: 72083

== ENCOUNTER 2019-12-01 15:33 | Emergency (ER) | payer MEDICARE, OTHER, SELFPAY ==
--- NOTE | 2019-12-01 | XR_ITS ---
PROCEDURE: XR CHEST PORTABLE CLINICAL HISTORY: REPOSITION PICC LINE COMPARISON: XR RIBS RT MIN 3V W CXR1V from 07/30/2019 XR CHEST PORTABLE PICC PLAC from 12/01/2019 FINDINGS: Left upper extremity PICC line has been reposition. The tip of the line is not well delineated however, the line no longer projects toward the neck and projects toward the superior vena cava. The tip may be at the SVC at the T6-T7 level. It does not appear to be within the right atrium or right ventricle. Metallic artifact from the overlying thoracic and lumbar inter pedicular screws with connecting rods obscures the tip of the line. Hiatal hernia is present. IMPRESSION: Repositioning of the PICC line with tip in the region of the superior vena cava Dictated by: Carlos Pena MD 12/01/2019 17:30 Electronically signed by Carlos Pena MD in [place] 12/01/2019 17:30
[2019-12-01 15:36] VITALS: BP 122/85; PULSE 80; RESP 20; TEMP 36.8; O2SAT 98; BMI 27.1
--- NOTE | 2019-12-01 15:48 | HMH.EDGENADL ---
ED Disposition Clinical Impression: Urinary hesitancy due to benign prostatic hyperplasia, PIC line (peripherally inserted central catheter) removal Disposition: Home, Self-Care Condition on Discharge: Good Referrals: Provider,Referral, [Primary Care Provider] - - Critical Care Critical Care Time: No Attestation: On 12/01/19, the high probability of a clinically significant, sudden or life threatening deterioration of the following system(s) required my full and direct attention, intervention and personal management. The time I documented below is in addition to time spent performing reported procedures but includes the following listed in this critical care notation. Medical Decision Making - Medical Records Medical records reviewed: Yes: I reviewed the patient's medical records. - Bereket Inquiry Pt receiving controlled substance: No Vital Signs: 12/01/19 15:36 Temperature 98.2 F Temperature Source Oral Pulse Rate [Right] 80 Respiratory Rate 20 Blood Pressure [Right Arm] 122/85 Blood Pressure Mean [Right Arm] 97 02 Sat by Pulse Oximetry 98 - Lab Data Lab results reviewed: Yes: I reviewed the patient's lab results. General Adult HPI - General Chief complaint: Extremity Problem,Nontraumatic Stated complaint: picc line issue Time Seen by Provider: 12/01/19 15:48 Mode of Arrival: EMS Limitations: No Limitations Description of Symptoms (Recalled from ER Triage Doc. by RN): Issue with PICC line per home health, pt PICC line lumen is broken off. - History of Present Illness HPI narrative: 69-year-old pleasant gentleman presents to the ED with a PICC line that his faulted. Apparently patient is getting IV antibiotic therapy for a abdominal infection. A subsequent PICC line was placed. Patient been at [facility] for rehab and he was just sent home yesterday. Patient is also getting cath every 4 hours and so I explained to the family how would really benefit the patient to have an indwelling Ovalle catheter and they seem to be agreement. Denies any swelling or pain in the area. - Related Data Home Medications Medication Instructions Recorded Confirmed Carbidopa/Levodopa [Sinemet 25-100 1 each PO TID 08/12/17 09/29/19 mg Tablet] Omeprazole [Omeprazole 20mg 20 mg PO BID 08/12/17 09/29/19 Capsule] Pramipexole Di-HCl [Mirapex ER] 4.5 mg PO DAILY 08/12/17 09/29/19 Rasagiline Mesylate [Azilect] 1 mg PO DAILY 08/12/17 09/29/19 clonazePAM [Clonazepam] 0.5 mg PO HS 08/12/17 09/29/19 Allergies Allergy/AdvReac Type Severity Reaction Status Date / Time No Known Allergies Allergy Verified 08/12/17 09:28 [facility] History - Hepatitis A Screen Drug use history?: No High risk sexual behaviors?: No History of sexually transmitted infection?: No Currently employed?: No Childcare worker?: No Do you have indoor plumbing?: Yes Do you have electricity?: Yes Attestation statement:: This patient has been screened for Hepatitis A risk factors. I have reviewed the patient's past medical history: Yes Medical History: Reports:: Hypertension Denies:: Cancer, Diabetes Mellitus Type 1, Diabetes Mellitus Type 2, MRSA Other Medical History: Reports: Anemia, Cataracts Other Surgeries: Yes: Colonoscopy, EGD, Other (BACK SURERY FOR SCOLIOSIS) - Social History Alcohol Intake: never Occupational Status: retired Housing: house Household Members: spouse Family Hx:: Cancer, Diabetes ROS Obtained: Yes All systems reviewed & no additional complaints - Constitutional Constitutional: Reports system reviewed and no additional complaints, except as docu - Eyes Eyes: Reports system reviewed and no additional complaints, except as docu - ENT Ears, Nose, Mouth, and Throat: Reports system reviewed and no additional complaints, except as docu - Cardiovascular Cardiovascular: Reports system reviewed and no additional complaints, except as docu - Respiratory Respiratory: Yes system reviewed and no
--- NOTE | 2019-12-01 15:48 | PC.NURSE ---
PICC line team at bedside
--- NOTE | 2019-12-01 16:04 | XR_ITS ---
PROCEDURE: XR CHEST PORTABLE PICC PLAC CLINICAL HISTORY: Confirm PICC line placement COMPARISON: XR RIBS RT MIN 3V W CXR1V from 07/30/2019 FINDINGS: Left upper extremity PICC line has been inserted. The tip is not visible but is projected toward the neck. There is increased density in the left paratracheal region suspicious for enlarged thyroid gland. There is a hiatal hernia and there postsurgical changes of the thoracic and lumbar spine. No acute bony abnormalities. IMPRESSION: Abnormal position of the PICC line. Dictated by: Carlos Pena MD 12/01/2019 16:51 Electronically signed by Carlos Pena MD in [place] 12/01/2019 16:51
--- NOTE | 2019-12-01 16:44 | PC.NURSE ---
Rad at bedside.
--- NOTE | 2019-12-01 17:19 | PC.NURSE ---
[address] in the left basilic vein. 13cm was trimmed from original length of 55. 42cm inserted. LOT-[id number], expiration-08/27/20. Flushed with 50ml NS. Verified with Chest x-ray and positive blood return. no distress noted. Picc line education provided and picc line booklet given.
[2019-12-01 18:10] VITALS: BP 122/85; PULSE 80; RESP 20; TEMP 36.8; O2SAT 98
== END 2019-12-01 18:29 | disposition home or self-care (01) ==
PROVIDERS: Emergency Provider Family Medicine
DX: N40.1 Benign prostatic hyperplasia with lower urinary tract symptoms (principal); Z45.2 Encounter for adjustment and management of vascular access device; K51.90 Ulcerative colitis, unspecified, without complications
CPT/HCPCS: 71045; 99283; C1751

== ENCOUNTER 2019-12-29 11:33 | Outpatient (CLI) | payer MEDICARE, OTHER, SELFPAY ==
[2019-12-29 11:38] VITALS: BMI 27.6
[2019-12-29 12:04] VITALS: BP 102/74; PULSE 91; RESP 16; TEMP 36.3; O2SAT 99
[2019-12-29 12:17] LABS: Basophils # 0.1 K/mm3 (0-0.2); Basophils % 0.9 % (0.1-2.0); Eosinophils # 0.1 K/mm3 (0.0-0.4); Eosinophils % 1.5 % (0.1-12.0); Hematocrit 36.2 % (42.0-52.0); Hemoglobin 12.2 g/dL (14.1-18.0); Lymphocytes # 1.9 K/mm3 (0.7-4.5); Lymphocytes % 32.1 % (10-50); Mean Corpuscular HGB Conc 33.6 g/dL (31.8-35.4); Mean Corpuscular Hemoglobin 28.2 pg (27.0-31.2); Mean Corpuscular Volume 83.8 fl (80-94); Mean Platelet Volume 8.6 fl (7.4-10.4); Monocytes # 0.3 K/mm3 (0.1-1.0); Monocytes % 5.3 % (1.7-9.3); Neutrophils # 3.6 K/mm3 (1.8-7.8); Neutrophils % 60.1 % (37.0-80.0); Platelet Count 243 K/mm3 (142-424); Red Blood Count 4.32 M/mm3 (4.60-6.20); Red Cell Distribution Width 16.5 % (11.5-17.5)
[2019-12-29 12:27] LABS: Alanine Aminotransferase 16 U/L (12-78); Albumin Level 3.8 g/dl (3.5-5.0); Albumin/Globulin Ratio 0.9 (1.1-1.8); Alkaline Phosphatase 97 U/L (38-126); Anion Gap 14.2 mEq/L (5-15); Aspartate Amino Transferase 21 U/L (17-59); Bilirubin,Total 0.4 mg/dl (0.2-1.3); Blood Urea Nitrogen 13 mg/dl (9-20); Calcium 9.1 mg/dl (8.4-10.2); Carbon Dioxide 17 mmol/L (22.0-30.0); Chloride 109 mmol/L (98-107); Creatinine Clearance Estimated 82 mL/min (50-200); Estimated Glomerular Filt Rate 83 ml/min (>60); GFR (African American) 101 ML/MIN (>60); Globulin 4.2 g/dL (1.3-3.2); Glucose 137 mg/dl (74-100); Potassium 3.2 mmoL/L (3.5-5.1); Sodium 137 mmol/L (136-145)
[2019-12-29 12:32] LABS: C-Reactive Protein 32.5 mg/L (0-4)
[2019-12-29 12:40] VITALS: BP 112/71; PULSE 83; RESP 18
== END 2019-12-29 12:50 | disposition home or self-care (01) ==
LOC: INF 11:33
PROVIDERS: Visit Provider Physician Assistant
DX: Z87.19 Personal history of other diseases of the digestive system (principal); K51.00 Ulcerative (chronic) pancolitis without complications; K51.90 Ulcerative colitis, unspecified, without complications; K29.70 Gastritis, unspecified, without bleeding; B96.81 Helicobacter pylori [H. pylori] as the cause of diseases classified elsewhere; R14.0 Abdominal distension (gaseous); K25.7 Chronic gastric ulcer without hemorrhage or perforation; D64.9 Anemia, unspecified
CPT/HCPCS: 36415; 80053; 85025; 86140; 96413; J3380

== ENCOUNTER → 2019-12-30 16:55 | Outpatient (CLI) | payer MEDICARE, OTHER, SELFPAY | PROVIDERS: Visit Provider Family Medicine | DX: K52.1 Toxic gastroenteritis and colitis (principal) | CPT/HCPCS: 87045 ==

== ENCOUNTER → 2019-12-31 12:49 | Outpatient (CLI) | payer MEDICARE, OTHER, SELFPAY ==
[2019-12-31 12:53] LABS: Adenovirus F 40/41, stool Not Detected (NotDetected); Astrovirus Not Detected (NotDetected); Campylobacter Not Detected (NotDetected); Cryptosporidium Not Detected (NotDetected); Cyclospora Cayetanesis Not Detected (NotDetected); Entamoeba histolytica Not Detected (NotDetected); Enteroaggregative E coli Not Detected (NotDetected); Enteropathogenic E coli Not Detected (NotDetected); Enterotoxigenic E coli Not Detected (NotDetected); Giardia lamblia Not Detected (NotDetected); Norovirus Not Detected (NotDetected); Plesimonas Shigalloides, PCR Not Detected (NotDetected); Rotavirus A Not Detected (NotDetected); Salmonella, PCR Not Detected (NotDetected); Sapovirus Not Detected (NotDetected); Shiga-like toxin E coli Not Detected (NotDetected); Shigella Enterovasive E coli Not Detected (NotDetected); Vibrio Cholerae Not Detected (NotDetected); Vibrio, PCR Not Detected (NotDetected); Yersinia Entercolitica, PCR Not Detected (NotDetected)
[2019-12-31 17:30] LABS: Clostridium Difficile A/B, PCR Detected (NotDetected)
== END ==
PROVIDERS: Visit Provider Family Medicine
DX: R19.7 Diarrhea, unspecified (principal); A04.72 Enterocolitis due to Clostridium difficile, not specified as recurrent; Z03.818 Encounter for observation for suspected exposure to other biological agents ruled out
CPT/HCPCS: 87507

== ENCOUNTER 2020-01-06 14:58 | Emergency (ER) | payer MEDICARE, OTHER, SELFPAY ==
[2020-01-06 14:58] VITALS: BP 133/88; PULSE 84; RESP 16; TEMP 36.9; O2SAT 98; BMI 27.3
[2020-01-06 14:59] VITALS: BMI 27.3
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
[2020-01-06 15:41] LABS: Basophils # 0.1 K/mm3 (0-0.2); Basophils % 0.7 % (0.1-2.0); Chloride 108 mmol/L (98-107); Eosinophils # 0.1 K/mm3 (0.0-0.4); Eosinophils % 1.5 % (0.1-12.0); Hematocrit 34.7 % (42.0-52.0); Hemoglobin 11.9 g/dL (14.1-18.0); Lymphocytes # 2.7 K/mm3 (0.7-4.5); Lymphocytes % 29.9 % (10-50); Mean Corpuscular HGB Conc 34.3 g/dL (31.8-35.4); Mean Corpuscular Volume 84.6 fl (80-94); Mean Platelet Volume 8.3 fl (7.4-10.4); Monocytes # 0.6 K/mm3 (0.1-1.0); Monocytes % 6.4 % (1.7-9.3); Neutrophils # 5.5 K/mm3 (1.8-7.8); Neutrophils % 61.4 % (37.0-80.0); Platelet Count 290 K/mm3 (142-424); Red Blood Count 4.11 M/mm3 (4.60-6.20); Red Cell Distribution Width 16.2 % (11.5-17.5); White Blood Count 8.9 K/mm3 (4.8-10.8)
[2020-01-06 15:42] LABS: Potassium 3.2 mmoL/L (3.5-5.1); Sodium 137 mmol/L (136-145)
[2020-01-06 15:44] LABS: Blood Urea Nitrogen 13 mg/dl (9-20); Creatinine Clearance Estimated 82 mL/min (50-200); Estimated Glomerular Filt Rate 83 ml/min (>60); GFR (African American) 101 ML/MIN (>60)
[2020-01-06 15:45] LABS: Albumin Level 3.7 g/dl (3.5-5.0); Albumin/Globulin Ratio 0.9 (1.1-1.8); Alkaline Phosphatase 97 U/L (38-126); Anion Gap 12.2 mEq/L (5-15); Bilirubin,Total 0.5 mg/dl (0.2-1.3); Calcium 8.9 mg/dl (8.4-10.2); Carbon Dioxide 20 mmol/L (22.0-30.0); Glucose 91 mg/dl (74-100); Total Protein,Serum 7.7 g/dl (6.3-8.2)
[2020-01-06 15:46] LABS: Alanine Aminotransferase 10 U/L (12-78); Aspartate Amino Transferase 30 U/L (17-59)
[2020-01-06 15:48] LABS: Prothrombin Time 11.1 seconds (9.4-11.8)
[2020-01-06 15:49] LABS: Activated Partial Thrombo Time 23.3 seconds (23.6-34.0); INR 1.09 (0.9-1.1)
[2020-01-06 16:08] VITALS: BP 117/87; PULSE 80; RESP 20; TEMP 36.8; O2SAT 98
== END 2020-01-06 16:17 | disposition home or self-care (01) ==
PROVIDERS: Emergency Provider Emergency Medicine; PCP Family Medicine
DX: I82.412 Acute embolism and thrombosis of left femoral vein (principal); I10 Essential (primary) hypertension; G82.20 Paraplegia, unspecified
CPT/HCPCS: 80053; 85025; 85610; 85730; 93971; 96372; 99282

== ENCOUNTER 2020-01-11 11:38 | Outpatient (CLI) | payer MEDICARE, OTHER, SELFPAY ==
[2020-01-11 11:40] VITALS: BMI 27.3
[2020-01-11 12:02] LABS: Basophils % 0.5 % (0.1-2.0); Eosinophils # 0.1 K/mm3 (0.0-0.4); Eosinophils % 0.9 % (0.1-12.0); Hematocrit 37.7 % (42.0-52.0); Hemoglobin 12.3 g/dL (14.1-18.0); Lymphocytes # 2.3 K/mm3 (0.7-4.5); Mean Corpuscular HGB Conc 32.6 g/dL (31.8-35.4); Mean Corpuscular Hemoglobin 28.3 pg (27.0-31.2); Mean Corpuscular Volume 86.9 fl (80-94); Mean Platelet Volume 7.7 fl (7.4-10.4); Monocytes # 0.4 K/mm3 (0.1-1.0); Monocytes % 5.6 % (1.7-9.3); Neutrophils # 5.1 K/mm3 (1.8-7.8); Platelet Count 394 K/mm3 (142-424); Red Blood Count 4.34 M/mm3 (4.60-6.20); Red Cell Distribution Width 16.1 % (11.5-17.5)
[2020-01-11 12:12] VITALS: BP 123/87; PULSE 84; RESP 18; TEMP 36.7; O2SAT 98
[2020-01-11 12:12] LABS: Blood Urea Nitrogen 9 mg/dl (9-20); Creatinine Clearance Estimated 82 mL/min (50-200); Estimated Glomerular Filt Rate 83 ml/min (>60); GFR (African American) 101 ML/MIN (>60)
[2020-01-11 12:13] LABS: Alanine Aminotransferase 11 U/L (12-78); Albumin Level 3.8 g/dl (3.5-5.0); Alkaline Phosphatase 103 U/L (38-126); Aspartate Amino Transferase 20 U/L (17-59); Bilirubin,Total 0.5 mg/dl (0.2-1.3); Calcium 9.2 mg/dl (8.4-10.2); Glucose 83 mg/dl (74-100); Total Protein,Serum 7.8 g/dl (6.3-8.2)
[2020-01-11 12:18] LABS: C-Reactive Protein 12.9 mg/L (0-4)
[2020-01-11 12:42] VITALS: BP 121/89; PULSE 79; RESP 18; O2SAT 97
[2020-01-11 13:10] LABS: Anion Gap 12.8 mEq/L (5-15)
[2020-01-11 13:11] LABS: Carbon Dioxide 25 mmol/L (22.0-30.0); Chloride 107 mmol/L (98-107); Potassium 3.8 mmoL/L (3.5-5.1); Sodium 141 mmol/L (136-145)
[2020-01-11 13:15] VITALS: BP 119/78; PULSE 81; RESP 18; O2SAT 98
== END 2020-01-11 13:15 | disposition home or self-care (01) ==
LOC: INF 11:38
PROVIDERS: Visit Provider Physician Assistant
DX: K51.80 Other ulcerative colitis without complications (principal)
CPT/HCPCS: 80053; 85025; 86140; 96413; J3380

== ENCOUNTER 2020-02-08 11:55 | Outpatient (CLI) | payer MEDICARE, OTHER, SELFPAY ==
[2020-02-08 11:55] VITALS: BMI 27.6
[2020-02-08 12:16] LABS: Basophils # 0.1 K/mm3 (0-0.2); Basophils % 1.3 % (0.1-2.0); Eosinophils # 0.2 K/mm3 (0.0-0.4); Eosinophils % 3.9 % (0.1-12.0); Hemoglobin 13.4 g/dL (14.1-18.0); Lymphocytes # 1.9 K/mm3 (0.7-4.5); Lymphocytes % 36.1 % (10-50); Mean Corpuscular HGB Conc 34.2 g/dL (31.8-35.4); Mean Corpuscular Hemoglobin 29.2 pg (27.0-31.2); Mean Corpuscular Volume 85.4 fl (80-94); Monocytes # 0.4 K/mm3 (0.1-1.0); Neutrophils # 2.7 K/mm3 (1.8-7.8); Neutrophils % 50.8 % (37.0-80.0); Platelet Count 282 K/mm3 (142-424); Red Blood Count 4.57 M/mm3 (4.60-6.20); Red Cell Distribution Width 15.2 % (11.5-17.5); White Blood Count 5.4 K/mm3 (4.8-10.8)
[2020-02-08 12:20] VITALS: BP 125/84; PULSE 68; RESP 20; TEMP 36.9; O2SAT 95
[2020-02-08 12:20] LABS: Chloride 104 mmol/L (98-107); Potassium 4.3 mmoL/L (3.5-5.1); Sodium 138 mmol/L (136-145)
[2020-02-08 12:23] LABS: Alanine Aminotransferase 11 U/L (12-78); Albumin Level 3.8 g/dl (3.5-5.0); Alkaline Phosphatase 78 U/L (38-126); Anion Gap 13.3 mEq/L (5-15); Aspartate Amino Transferase 24 U/L (17-59); Bilirubin,Total 0.6 mg/dl (0.2-1.3); Blood Urea Nitrogen 12 mg/dl (9-20); Calcium 9.2 mg/dl (8.4-10.2); Carbon Dioxide 25 mmol/L (22.0-30.0); Creatinine Clearance Estimated 82 mL/min (50-200); Estimated Glomerular Filt Rate 111 ml/min (>60); GFR (African American) 135 ML/MIN (>60); Globulin 3.8 g/dL (1.3-3.2); Glucose 91 mg/dl (74-100); Total Protein,Serum 7.6 g/dl (6.3-8.2)
[2020-02-08 13:10] VITALS: BP 124/84; PULSE 60; RESP 20; TEMP 36.9; O2SAT 95
== END 2020-02-08 13:10 | disposition home or self-care (01) ==
LOC: INF 11:55
PROVIDERS: Visit Provider Physician Assistant
DX: K51.90 Ulcerative colitis, unspecified, without complications (principal)
CPT/HCPCS: 80053; 85025; 86140; 96413; J3380

== ENCOUNTER 2020-02-22 13:36 | Outpatient (RCR) | payer MEDICARE, OTHER, SELFPAY ==
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
== END 2020-02-22 15:00 | disposition home or self-care (01) ==
LOC: PT 13:36
PROVIDERS: Visit Provider Family Medicine
DX: L89.319 Pressure ulcer of right buttock, unspecified stage; L89.329 Pressure ulcer of left buttock, unspecified stage
CPT/HCPCS: 97161

== ENCOUNTER → 2020-02-22 14:48 | Outpatient (CLI) | payer MEDICARE, OTHER, SELFPAY | PROVIDERS: Visit Provider Family Medicine | DX: L89.319 Pressure ulcer of right buttock, unspecified stage (principal); L89.329 Pressure ulcer of left buttock, unspecified stage | CPT/HCPCS: 87070; 87077; 87081; 87186; 87205 ==

== ENCOUNTER → 2020-03-31 16:30 | Outpatient (CLI) | payer MEDICARE, OTHER, SELFPAY ==
[2020-03-31 16:37] LABS: Adenovirus F 40/41, stool Not Detected (NotDetected); Astrovirus Not Detected (NotDetected); Campylobacter Not Detected (NotDetected); Cryptosporidium Not Detected (NotDetected); Cyclospora Cayetanesis Not Detected (NotDetected); Entamoeba histolytica Not Detected (NotDetected); Enteroaggregative E coli Not Detected (NotDetected); Enteropathogenic E coli Not Detected (NotDetected); Enterotoxigenic E coli Not Detected (NotDetected); Giardia lamblia Not Detected (NotDetected); Norovirus Not Detected (NotDetected); Plesimonas Shigalloides, PCR Not Detected (NotDetected); Rotavirus A Not Detected (NotDetected); Salmonella, PCR Not Detected (NotDetected); Sapovirus Not Detected (NotDetected); Shiga-like toxin E coli Not Detected (NotDetected); Shigella Enterovasive E coli Not Detected (NotDetected); Vibrio Cholerae Not Detected (NotDetected); Vibrio, PCR Not Detected (NotDetected); Yersinia Entercolitica, PCR Not Detected (NotDetected)
[2020-03-31 20:24] LABS: Clostridium Difficile A/B, PCR Detected (NotDetected)
== END ==
PROVIDERS: Visit Provider Physician Assistant
DX: K51.00 Ulcerative (chronic) pancolitis without complications (principal); A04.72 Enterocolitis due to Clostridium difficile, not specified as recurrent
CPT/HCPCS: 87177; 87506

== ENCOUNTER 2020-04-04 12:50 | Outpatient (CLI) | payer MEDICARE, OTHER, SELFPAY ==
[2020-04-04 12:52] VITALS: BMI 27.6
[2020-04-04 13:10] VITALS: BP 126/86; PULSE 68; RESP 20; TEMP 36.7; O2SAT 95
[2020-04-04 13:20] LABS: Basophils % 0.4 % (0.1-2.0); Eosinophils # 0.2 K/mm3 (0.0-0.4); Eosinophils % 1.9 % (0.1-12.0); Hematocrit 39.9 % (42.0-52.0); Hemoglobin 13.8 g/dL (14.1-18.0); Lymphocytes # 2.4 K/mm3 (0.7-4.5); Lymphocytes % 23.5 % (10-50); Mean Corpuscular HGB Conc 34.5 g/dL (31.8-35.4); Mean Corpuscular Volume 84.2 fl (80-94); Mean Platelet Volume 7.5 fl (7.4-10.4); Monocytes # 0.6 K/mm3 (0.1-1.0); Monocytes % 5.5 % (1.7-9.3); Neutrophils # 6.9 K/mm3 (1.8-7.8); Neutrophils % 68.7 % (37.0-80.0); Platelet Count 347 K/mm3 (142-424); Red Blood Count 4.74 M/mm3 (4.60-6.20); Red Cell Distribution Width 14.8 % (11.5-17.5)
[2020-04-04 13:26] LABS: Alanine Aminotransferase 9 U/L (12-78); Alkaline Phosphatase 103 U/L (38-126); Anion Gap 17.6 mEq/L (5-15); Aspartate Amino Transferase 17 U/L (17-59); Bilirubin,Total 0.3 mg/dl (0.2-1.3); Blood Urea Nitrogen 12 mg/dl (9-20); Calcium 9.3 mg/dl (8.4-10.2); Carbon Dioxide 24 mmol/L (22.0-30.0); Chloride 101 mmol/L (98-107); Creatinine Clearance Estimated 82 mL/min (50-200); Estimated Glomerular Filt Rate 96 ml/min (>60); GFR (African American) 116 ML/MIN (>60); Globulin 4.1 g/dL (1.3-3.2); Glucose 113 mg/dl (74-100); Potassium 3.6 mmoL/L (3.5-5.1); Sodium 139 mmol/L (136-145); Total Protein,Serum 8.1 g/dl (6.3-8.2)
[2020-04-04 13:33] LABS: C-Reactive Protein 16.9 mg/L (0-4)
[2020-04-04 14:05] VITALS: BP 128/68; PULSE 68; RESP 20; TEMP 36.9; O2SAT 95
== END 2020-04-04 14:10 | disposition home or self-care (01) ==
LOC: INF 12:50
PROVIDERS: Visit Provider Physician Assistant
DX: K51.818 Other ulcerative colitis with other complication (principal)
CPT/HCPCS: 80053; 85025; 86140; 96413; J3380

== ENCOUNTER 2020-05-09 00:02 | Observation (INO) | payer MEDICARE, OTHER, SELFPAY ==
[2020-05-09] VITALS (28 sets, daily range): BP systolic 91–185; BP diastolic 60–103; PULSE 96–115; RESP 14–19; TEMP 36.6–43; O2SAT 94–100; BMI 27.3; BMI 24.8
[2020-05-09 00:18] LABS: Basophils # 0.1 K/mm3 (0-0.2); Basophils % 0.5 % (0.1-2.0); Eosinophils # 0.3 K/mm3 (0.0-0.4); Eosinophils % 2.7 % (0.1-12.0); Hematocrit 37.7 % (42.0-52.0); Lymphocytes # 1.2 K/mm3 (0.7-4.5); Lymphocytes % 9.9 % (10-50); Mean Corpuscular HGB Conc 31.9 g/dL (31.8-35.4); Mean Corpuscular Hemoglobin 27.5 pg (27.0-31.2); Mean Corpuscular Volume 86.2 fl (80-94); Monocytes # 0.4 K/mm3 (0.1-1.0); Neutrophils # 10.1 K/mm3 (1.8-7.8); Neutrophils % 83.8 % (37.0-80.0); Platelet Count 412 K/mm3 (142-424); Red Blood Count 4.37 M/mm3 (4.60-6.20); Red Cell Distribution Width 14.7 % (11.5-17.5); White Blood Count 12.1 K/mm3 (4.8-10.8)
[2020-05-09 00:30] LABS: Anion Gap 11.6 mEq/L (5-15); Blood Urea Nitrogen 10 mg/dl (9-20); Carbon Dioxide 23 mmol/L (22.0-30.0); Chloride 103 mmol/L (98-107); Creatinine Clearance Estimated 82 mL/min (50-200); Estimated Glomerular Filt Rate 83 ml/min (>60); GFR (African American) 101 ML/MIN (>60); Glucose 109 mg/dl (74-100); Potassium 3.6 mmoL/L (3.5-5.1); Sodium 134 mmol/L (136-145)
--- NOTE | 2020-05-09 01:14 | HMH.EDUROGM ---
ED Disposition Clinical Impression: Acute retention of urine, SIRS (systemic inflammatory response syndrome) Hematuria Qualifiers: Hematuria type: gross Qualified Code(s): R31.0 - Gross hematuria UTI (urinary tract infection) Qualifiers: Urinary tract infection type: site unspecified Hematuria presence: with hematuria Qualified Code(s): N39.0 - Urinary tract infection, site not specified; R31.9 - Hematuria, unspecified Disposition: Admitted as Observation Condition on Discharge: Fair Instructions: DI for Urinary Tract Infection (UTI), DI for Urinary Tract Infection in Children Referrals: Rosa Jones MD [Primary Care Provider] - - Critical Care Critical Care Time: No Attestation: On 05/09/20, the high probability of a clinically significant, sudden or life threatening deterioration of the following system(s) required my full and direct attention, intervention and personal management. The time I documented below is in addition to time spent performing reported procedures but includes the following listed in this critical care notation. Medical Decision Making - Medical Records Medical records reviewed: Yes: I reviewed the patient's medical records. - [place]re[place] Inquiry Pt receiving controlled substance: No Vital Signs: 05/09/20 00:03 05/09/20 01:13 05/09/20 01:32 Temperature 98.7 F Temperature Source Oral Pulse Rate [Right Brachial] 105 H 109 H 109 H Respiratory Rate 17 18 18 Blood Pressure [Right Arm] 175/100 H 138/93 H 158/94 H Blood Pressure Mean [Right Arm] 125 108 115 Blood Pressure Source [Right Arm] Automatic Cuff Blood Pressure Position [Right Arm] Sitting 02 Sat by Pulse Oximetry 99 99 97 Oxygen Delivery Method Room Air Room Air Room Air 05/09/20 02:00 Temperature Temperature Source Pulse Rate [Right Brachial] 110 H Respiratory Rate 112 H Blood Pressure [Right Arm] 165/102 H Blood Pressure Mean [Right Arm] 123 Blood Pressure Source [Right Arm] Automatic Cuff Blood Pressure Position [Right Arm] Sitting 02 Sat by Pulse Oximetry 100 Oxygen Delivery Method Room Air - Lab Data Lab results reviewed: Yes: I reviewed the patient's lab results. Lab Results 05/09/20 00:10: WBC 12.1 H, RBC 4.37 L, Hgb 12.0 L, Hct 37.7 L, MCV 86.2, MCH 27.5, MCHC 31.9, RDW 14.7, Plt Count 412, MPV 7.0 L, Neut % (Auto) 83.8 H, Lymph % (Auto) 9.9 L, [place] % (Auto) 3.0, Eos % (Auto) 2.7, Baso % (Auto) 0.5, Neut # (Auto) 10.1 H, Lymph # (Auto) 1.2, [place] # (Auto) 0.4, Eos # (Auto) 0.3, Baso # (Auto) 0.1 05/09/20 00:10: Sodium 134 L, Potassium 3.6, Chloride 103, Carbon Dioxide 23, Anion Gap 11.6, BUN 10, Creatinine 0.90, Estimated Creat Clear 82, Estimated GFR 83, Est GFR ( Amer) 101, Glucose 109 H, Calcium 9.0 05/09/20 00:10: SARS-CoV-2 IgG Ab (Rapid) Negative, SARS-CoV-2 IgM Ab (Rapid) Negative 05/09/20 01:31: Urine Color Red, Urine Appearance Turbid, Urine pH 7.5, Ur Specific [place] 1.025, Urine Protein 3+, Urine Glucose (UA) Negative, Urine Ketones Negative, Urine Blood 3+, Urine Nitrate Positive, Urine Bilirubin Negative, Urine Urobilinogen 1.0, Ur Leukocyte Esterase Trace, Urine RBC Tntc, Urine WBC 3-5, Urine Bacteria 2+ Result diagrams: 05/09/20 00:10 05/09/20 00:10 Orders (Tests/Meds): ED MEDICATIONS Discontinued Medications Generic Name Dose Route Start Last Admin Trade Name Kiranq PRN Reason Stop Dose Admin Acetaminophen 1,000 mg 05/09/20 01:22 05/09/20 01:24 Acetaminophen 500mg Tab PO 05/09/20 01:23 1,000 mg ONCE ONE Administration ORDERS Category Date Time Status CT abdomen pelvis wo con Stat Cat Scan 05/09/20 01:19 Taken Urine Culture Stat Micro 05/09/20 01:31 Received - CT Data CT Scan: Abdomen, Pelvis Time Received: 02:[address] Reviewed: Yes: I have viewed the radiologist's interpretation Preliminary Findings: Abnormal (see report ) - Physician Consults Physician Consulted: dorie Reason -: Admission Male Urogenital HPI - General Chief complain
--- NOTE | 2020-05-09 01:19 | CT_ITS ---
PROCEDURE: CT ABDOMEN PELVIS WO CON CLINICAL INDICATION: urinary retention Urinary retention with hematuria, lower abdominal pain COMPARISON: No exams were available for comparison TECHNIQUE: Axial images obtained with sagittal and coronal reformats. All CT scans at the facility use one or more dose reduction, viz: automated exposure control, ma/kV adjustment per patient size (including targeted exams where dose is matched to indication, i.e. head), or iterative reconstruction technique. FINDINGS: LOWER THORAX: Artifact is present from multilevel inter pedicular screws in the lower thoracic and lumbar spine extending to the sacrum. There is a large hiatal hernia containing most of the stomach. ABDOMEN & PELVIS: Large hiatal hernia. The liver, gallbladder, spleen, pancreas, and right kidney has an unremarkable appearance. 2 cm hypodensity is present in the left renal pelvis and may represent a parapelvic renal cyst. No renal or ureteral calculi. Along the lateral left margin of the hiatal hernia there is a curvilinear area of increased soft tissue density which extends from the anterior para-aortic region left lateral to the posterior margin of the heart. This may represent a thickened michelle of the diaphragm. An anomalous vascular structures also consideration. Consider follow-up with IV contrast and oral contrast. There is a moderate amount of retained colonic feces throughout the colon. No evidence of diverticulitis. No evidence of appendicitis. There is a small left inguinal hernia containing a knuckle of colon. No bowel obstruction There is a Ovalle catheter present. There is increased density within the lumen of the urinary bladder with an irregular margin anteriorly. This could be related to blood clot formation. Cannot exclude bladder mass. There is a small amount air within the urinary bladder is well which could be iatrogenic. Prostate is enlarged at 6.8 cm. There is some minimal nodularity in the bladder floor nonspecific best detected on the coronal and sagittal reformatted images. Extensive spinal fusion has been performed involving the entire lumbar spine lower thoracic spine and upper sacrum. There has been prior vertebroplasty at T8 and T9. IMPRESSION: 1. Ovalle catheter in place with intraluminal blood clot noted within the urinary bladder. Neoplasm is also a consideration.. The prostate is enlarged. There is some minimal nodularity in the bladder floor nonspecific. Neoplasm is a consideration. 2. Large hiatal hernia with intrathoracic stomach. Curvilinear density extending from the hernia on the left to the posterior aspect of the heart which may be due to asymmetric prominence of the michelle of the diaphragm versus anomalous vascular structure. Repeat exam with IV and oral contrast may provide further evaluation. 3. Moderate amount of retained colonic feces with small left inguinal hernia containing a knuckle of large bowel 4. Other nonacute findings as described above Dictated by: Carlos Pena MD 05/09/2020 06:19 Carlos Pena MD in [place] 05/09/2020 06:19
[2020-05-09 01:47] LABS: Microscopic, Urine URINE MICROSCOPIC (MICROSCOPIC)
[2020-05-09 01:54] LABS: Coronavirus 19 IgG Antibody Negative (Negative); Coronavirus 19 IgM Antibody Negative (Negative)
[2020-05-09 02:13] LABS: Appearance,Urine TURBID (Clear); Blood, Urine 3+ (Negative); Color,Urine RED (Yellow); Glucose,Urine (UA) Negative (Negative); Ketones,Urine Negative (Negative); Leukocyte Esterase,Urine TRACE (Negative); Nitrate,Urine POSITIVE (Negative); PH,Urine 7.5 (5.0-8.5); Protein,Urine 3+ (Negative); Specific Gravity, Urine 1.025 (1.005-1.030)
[2020-05-09 02:14] LABS: Bilirubin,Urine Negative (Negative)
[2020-05-09 02:15] LABS: Bacteria,Urine 2+ /lpf; RBC,Urine TNTC #/hpf (0-3)
--- NOTE | 2020-05-09 03:30 | PC.NURSE ---
patient up to floor via wheelchair.
--- NOTE | 2020-05-09 03:31 | PC.NURSE ---
patient up to floor via stretcher.
[2020-05-09 04:44] LABS: Occult Blood,Stool Positive (Negative)
--- NOTE | 2020-05-09 06:08 | PC.NURSE ---
Round wound located on upper right medial buttock. Wound approximately 0.30aaylp1.25inch. Wound approx. 0.15inch deep. Wound has small amount of serosanguineous drainage. Polymem dressing applied.
[2020-05-09 06:16] LABS: Chloride 103 mmol/L (98-107); Potassium 3.9 mmoL/L (3.5-5.1); Sodium 134 mmol/L (136-145)
[2020-05-09 06:17] LABS: Basophils % 0.4 % (0.1-2.0); Eosinophils % 0.4 % (0.1-12.0); Hematocrit 35.2 % (42.0-52.0); Hemoglobin 11.1 g/dL (14.1-18.0); Lymphocytes # 1.3 K/mm3 (0.7-4.5); Lymphocytes % 13.2 % (10-50); Mean Corpuscular HGB Conc 31.4 g/dL (31.8-35.4); Mean Corpuscular Hemoglobin 27.4 pg (27.0-31.2); Mean Corpuscular Volume 87.2 fl (80-94); Mean Platelet Volume 7.2 fl (7.4-10.4); Monocytes # 0.7 K/mm3 (0.1-1.0); Monocytes % 7.3 % (1.7-9.3); Neutrophils # 7.9 K/mm3 (1.8-7.8); Neutrophils % 78.7 % (37.0-80.0); Platelet Count 380 K/mm3 (142-424); Red Blood Count 4.03 M/mm3 (4.60-6.20); Red Cell Distribution Width 14.9 % (11.5-17.5)
[2020-05-09 06:19] LABS: Anion Gap 10.9 mEq/L (5-15); Blood Urea Nitrogen 10 mg/dl (9-20); Calcium 8.5 mg/dl (8.4-10.2); Carbon Dioxide 24 mmol/L (22.0-30.0); Creatinine Clearance Estimated 74 mL/min (50-200); Estimated Glomerular Filt Rate 74 ml/min (>60); GFR (African American) 89 ML/MIN (>60); Glucose 108 mg/dl (74-100)
--- NOTE | 2020-05-09 07:13 | HMH.HP ---
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 Patient has his Ovalle catheter changed with local home health. After changing of his Ovalle catheter he developed urinary retention and then blood was leaking out around the catheter. Patient was brought to the emergency department where a new catheter was reinserted and produced grossly bloody urine with improvement in bladder distention and urinary retention. Urinalysis was abnormal with positive nitrites. Patient was admitted for urologic consultation. Since admission nursing has reported bright red blood per rectum as well. Patient does take anticoagulants for history of DVT of the left lower extremity. [facility] History I have reviewed the patient's past medical history: Yes Medical History: Reports:: Deep Vein Thrombosis, Hypertension Denies:: Cancer, Diabetes Mellitus Type 1, Diabetes Mellitus Type 2, MRSA *Have you ever received a pneumonia vaccine?: Yes *Have you received a flu vaccine this season?: Yes Other Medical History: Reports: Anemia, Cataracts, Other (colitis,parkinson disease) Comment:: Parkinson's disease Other Surgeries: Yes: No Previous Surgery, Colonoscopy, EGD, Hernia Repair, Other (back surgery) Amputation: No Fractures: No Comment: Lumbar spine surgery complicated with spinal stroke - *Social History Smoking Status: Never smoker Alcohol Intake: never Substance Use Type: denies use *Occupational Status:: retired, disabled Housing: house Household Members: spouse *Travel in the last 8 weeks: None Family Hx:: Cancer Review of Systems - Constitutional Denies body ache(s), Denies chills - *Cardiovascular Denies chest pain, Denies chest pain at rest - *Respiratory Denies change in phlegm color, Denies chest congestion, Denies cough, Denies shortness of breath - *Gastrointestinal Denies abdominal pain - *Genitourinary Reports difficulty urinating, Reports blood in urine - *Neurologic Denies localized weakness, Denies seizure-like activity Meds Home Medications Medication Instructions Recorded Confirmed Type Apixaban [Eliquis 5mg tab] 5 mg PO BID 01/11/20 05/09/20 History Bisacodyl [Bisacodyl 10mg Supp] 10 mg RC DAILYP PRN 01/11/20 05/09/20 History Lactobacillus 3/Fos/Pantethine 1 each PO DAILY 01/11/20 05/09/20 History [Probiotic & Acidophilus Cap] Melatonin 5 mg PO HS 01/11/20 05/09/20 History polyethylene glycoL 3350 [Miralax 17 gm PO DAILY 01/11/20 05/09/20 History 17gm Packet] acetaminophen 325 mg tablet 325 mg PO QID PRN 02/21/20 05/09/20 History fluoxetine 10 mg capsule 10 mg PO DAILY 02/21/20 05/09/20 History megestrol 40 mg tablet 40 mg PO DAILY 02/21/20 05/09/20 History rasagiline 1 mg tablet 1 mg PO DAILY #90 tab 02/22/20 05/09/20 Rx carbidopa 25 mg-levodopa 100 mg 3 tab PO QID #1080 tab 04/06/20 05/09/20 Rx tablet cyclobenzaprine 10 mg tablet 10 mg PO TID tab 04/06/20 05/09/20 History sennosides 8.6 mg capsule 8.6 mg PO HS 04/06/20 05/09/20 History Allergies Allergy/AdvReac Type Severity Reaction Status Date / Time No Known Allergies Allergy Verified 04/06/20 13:36 Exam Vital signs and Labs for Last 24 Hours: Temp Pulse Resp BP Pulse Ox 98.5 F 100 H 18 155/89 H 98 05/09/20 04:19 05/09/20 04:19 05/09/20 04:19 05/09/20 04:19 05/09/20 04:19 Laboratory Results - last 24 hr 05/09/20 00:10: WBC 12.1 H, RBC 4.37 L, Hgb 12.0 L, Hct 37.7 L, MCV 86.2, MCH 27.5, MCHC 31.9, RDW 14.7, Plt Count 412, MPV 7.0 L, Neut % (Auto) 83.8 H, Lymph % (Auto) 9.9 L, [place] % (Auto) 3.0, Eos % (Auto) 2.7, Baso % (Auto) 0.5, Neut # (Auto) 10.1 H, Lymph # (Auto) 1.2, [place] # (Auto) 0.4, Eos # (Auto) 0.3, Baso # (Auto) 0.1 05/09/20 00:10: Sodium 134 L, Potassium 3.6, Chloride 103, Carbon Dioxid
--- NOTE | 2020-05-09 07:42 | P.CONPHA_ITS ---
[facility] Pharmacy VTE Monitoring - Patient Demographics Admission date: 05/08/20 Report Date: 05/09/20 Time: 07:42 Allergies/Adverse Reactions: Patient Allergies No Known Allergies Allergy (Verified 04/06/20 13:36) Height: 1.75 m Weight: 76.345 kg Patient Problems: Current Active Problems Hematuria (Acute) Acute retention of urine (Acute) UTI (urinary tract infection) (Acute) SIRS (systemic inflammatory response syndrome) (Acute) salvage determiner current use of anticoagulant (Acute) - VTE Risk Labs: VTE Related Lab Results Hgb 11.1 g/dL (14.1-18.0) L 05/09/20 05:19 Hct 35.2 % (42.0-52.0) L 05/09/20 05:19 Plt Count 380 K/mm3 (142-424) 05/09/20 05:19 BUN 10 mg/dl (9-20) 05/09/20 05:19 Creatinine 1.00 mg/dl (0.66-1.25) 05/09/20 05:19 Estimated Creat Clear 74 mL/min (50-200) 05/09/20 05:19 Was VTE Risk Assessment Performed: Yes VTE Score: 7 VTE Risk Level: Moderate Risk Clinical Trial Participant: No - Prophylaxis VTE Prophylaxis Ordered?: Yes Types of VTE Prophylaxis: TEDS Knee High
--- NOTE | 2020-05-09 08:30 | PC.NURSE ---
Dr. Weir office notified of consult.
--- NOTE | 2020-05-09 10:15 | HMH.PHAINT ---
clarified home medication list using list form [facility] pharmacy and list fro Dr. Ramirez' office. Discussed with patient.
--- NOTE | 2020-05-09 11:25 | HMH.CONS ---
*Admission Date: 05/08/20 *Reason for consult:: Gross hematuria *History of present illness: Patient is a 69-year-old black male with history of neurogenic bladder and indwelling Ovalle catheter. Came to the emergency room with onset of gross hematuria after a Ovalle catheter changed by the home health nurse. Patient is on Eliquis. He denies any hematuria prior to the Ovalle change. Is also noted he had no urine output since the Ovalle change. His white count emergency room was 12.1 and his creatinine is 0.9. Urine was obtained which is grossly bloody. Ovalle catheter was changed in the emergency room with gross hematuria. CT scan was obtained which showed very large prostate and clot in the bladder. [facility] History Medical History: Reports:: Deep Vein Thrombosis, Hypertension Denies:: Cancer, Diabetes Mellitus Type 1, Diabetes Mellitus Type 2, MRSA *Have you ever received a pneumonia vaccine?: Yes *Have you received a flu vaccine this season?: Yes Other Medical History: Reports: Anemia, Cataracts, Other (colitis,parkinson disease) Other Surgeries: Yes: No Previous Surgery, Colonoscopy, EGD, Hernia Repair, Other (back surgery) Amputation: No Fractures: No - *Social History Smoking Status: Never smoker Alcohol Intake: never Substance Use Type: denies use *Occupational Status:: retired, disabled Housing: house Household Members: spouse *Travel in the last 8 weeks: None Family Hx:: Cancer Review of Systems - Review of Systems Review of systems:: pertinent systems reviewed and negative unless documented below - *Neurologic Denies localized weakness, Denies seizure-like activity Meds Home Medications Medication Instructions Recorded Confirmed Type Apixaban [Eliquis 5mg tab] 5 mg PO BID 01/11/20 05/09/20 History Bisacodyl [Bisacodyl 10mg Supp] 10 mg RC DAILYP PRN 01/11/20 05/09/20 History Lactobacillus 3/Fos/Pantethine 1 each PO DAILY 01/11/20 05/09/20 History [Probiotic & Acidophilus Cap] Melatonin 5 mg PO HS 01/11/20 05/09/20 History polyethylene glycoL 3350 [Miralax 17 gm PO DAILY 01/11/20 05/09/20 History 17gm Packet] acetaminophen 325 mg tablet 325 mg PO QID PRN 02/21/20 05/09/20 History megestrol 40 mg tablet 40 mg PO DAILY 02/21/20 05/09/20 History rasagiline 1 mg tablet 1 mg PO DAILY #90 tab 02/22/20 05/09/20 Rx cyclobenzaprine 10 mg tablet 10 mg PO TID tab 04/06/20 05/09/20 History sennosides 8.6 mg capsule 8.6 mg PO HS 04/06/20 05/09/20 History Amlodipine Besylate [Norvasc 5mg 5 mg PO DAILY 05/09/20 05/09/20 History tablet] Carbidopa/Levodopa 3 tab PO QID 05/09/20 05/09/20 History [Carbidopa/Levodopa 25/100mg Tablet] Fluoxetine HCl 20 mg PO DAILY 05/09/20 05/09/20 History Oxybutynin Chloride [Oxybutynin 10 mg PO DAILY 05/09/20 05/09/20 History Chloride ER] Allergies Allergy/AdvReac Type Severity Reaction Status Date / Time No Known Allergies Allergy Verified 04/06/20 13:36 Exam Vital signs and Labs for Last 24 Hours: Temp Pulse Resp BP Pulse Ox 98.3 F 103 H 17 132/89 98 05/09/20 11:08 05/09/20 11:08 05/09/20 11:08 05/09/20 11:08 05/09/20 11:08 Laboratory Results - last 24 hr 05/09/20 00:10: WBC 12.1 H, RBC 4.37 L, Hgb 12.0 L, Hct 37.7 L, MCV 86.2, MCH 27.5, MCHC 31.9, RDW 14.7, Plt Count 412, MPV 7.0 L, Neut % (Auto) 83.8 H, Lymph % (Auto) 9.9 L, [place] % (Auto) 3.0, Eos % (Auto) 2.7, Baso % (Auto) 0.5, Neut # (Auto) 10.1 H, Lymph # (Auto) 1.2, [place] # (Auto) 0.4, Eos # (Auto) 0.3, Baso # (Auto) 0.1 05/09/20 00:10: Sodium 134 L, Potassium 3.6, Chloride 103, Carbon Dioxide 23, Anion Gap 11.6, BUN 10, Creatinine 0.90, Estimated Creat Clear 82, Estimated GFR 83, Est GFR ( Amer) 101, Glucose 109 H, Calcium 9.0 05/09/20 00:10: SARS-CoV-2 IgG Ab (Rapid) Negative, SARS-CoV-2 IgM Ab (Rapid) Negative 05/09/20 01:31: Urine Color Red, Urine Appearance Turbid, Urine pH 7.5, Ur Specific [place] 1.025, Urine Protein 3+, Urine Glucose (UA) Negative, Urine Ketones Negativ
--- NOTE | 2020-05-09 12:56 | HMH.ANESCL ---
[facility] Anesthesia Checklist - Patient Identification Patient Identification: Arm Band, Verbal (Name & ) - Structural Data Admitted From: Inpatient Planned Operative Procedure/s: cysto Consent for Planned Operative Procedure(s) Verified: Yes Verified Documents: History and Physical - NPO Status Verified Time NPO: 00:00 - Chart Verification Results Verified: CBC, BMP - Additional verifications Patient : No Anesthesia Reactions: No Hx Blood Transfusions: No Blood Transfusion Reaction: No Cephalosporin Allergy: No Previous Colonoscopy: Yes - Cardiovascular Assessment Heart Sounds: S1 & S2 Pulse Strength: Baseline Pulse Rhythm: Regular Peripheral Edema: No - Airway Assessment C-Spine Mobility Assessed: Yes TMJ Mobility Assessed: Yes Dentition: Good Dentition - Neurological Assessment Level of Consciousness: Awake, Alert, Appropriate Hx Seizures: No Numbness or tingling in extremities: No - Anesthesia Plan Anesthesia Risk discussed: Yes Anesthesia Plan: Verified ASA Class: III Anesthesia Type: General [facility] History I have reviewed the patient's past medical history: Yes Medical History: Reports:: Deep Vein Thrombosis, Hypertension Denies:: Cancer, Diabetes Mellitus Type 1, Diabetes Mellitus Type 2, MRSA *Have you ever received a pneumonia vaccine?: Yes *Have you received a flu vaccine this season?: Yes Other Medical History: Reports: Anemia, Cataracts, Other (colitis,parkinson disease) Anesthesia experience/problems:: none Other Surgeries: Yes: No Previous Surgery, Colonoscopy, EGD, Hernia Repair, Other (back surgery) Amputation: No Fractures: No - *Social History Smoking Status: Never smoker Alcohol Intake: never Substance Use Type: denies use *Occupational Status:: retired, disabled Housing: house Household Members: spouse *Travel in the last 8 weeks: None Family Hx:: Cancer
--- NOTE | 2020-05-09 15:00 | P.PN_ITS ---
[facility] Anesthesia Record Part I Intake, IV Amount: 900 Estimated blood loss (mL): 0 Urine output (mL): 750 (CBI infusing) Blood Products used (#): none Blood Pressure: 185/103 SaO2: 94 Pulse Rate: 97 Respiratory Rate: 16 Temperature: 97.8 F Patient is:: Drowsy, Stable Stable to PACU at:: 14:55
--- NOTE | 2020-05-09 15:15 | P.OP_ITS ---
Date of procedure: 05/09/20 Pre-op Diagnosis:: Gross hematuria Post-op Diagnosis:: Gross hematuria, multiple bladder clots, prostate bleeding Procedure performed:: Cystoscopy with clot evacuation, fulguration of prostate and bladder bleeding Surgeon:: Chidi Weir MD ASSISTANT PROFESSOR OF GEOGRAPHY:: Thomas Chin Anesthesia: GETA Estimated blood loss (mL): 2 Clinical Note:: 69-year-old white male with history of neurogenic bladder and indwelling Ovalle catheter. Patient with onset of gross hematuria and no urine output after his Ovalle catheter was changed yesterday. He presented to the emergency room at [facility] where CT showed evidence of bladder clots in the bladder. Ovalle catheter was replaced in the emergency room with return of bloody urine. I discussed the need for cystoscopy and clot evacuation. Operative findings:: Half a liter of bladder clots were obtained from the bladder. There was some bleeding at the bladder neck and a small area in the bladder. Was evidence of some Ovalle trauma in the mid prostatic urethra. Operative note:: Patient taken to the operating room after informed consent was obtained. Placed on the operating table in the supine position and general anesthesia administered. His Eliquis has been stopped since his admission. He was given Rocephin at 3 AM and another 2 g of Ancef was given preoperatively. Placed into the dorsolithotomy position after anesthesia and prepped and draped in the standard surgical fashion. 25 Ukrainian scope then passed into the urethra into the mid prostate with was some evidence of some minor trauma in the mid prostatic urethra. Scope was passed onto and into the bladder where only clots were visualized. The evacuator then used to barbotage clot from the bladder. Most the clot was able to be irrigated free with the evacuator but there was a larger clot that we had fish out with the resectoscope sheath and loop. For this the cystoscope was removed and a 26 Ukrainian resectoscope sheath passed into the bladder and the loop was used to grasp the end of the clots and bring out the larger ones. We then irrigated the bladder where we could visualize it in its entirety. There is no evidence of any bladder tumors, stones, trabeculation or diverticula. There was an area in the posterior bladder where the Ovalle catheter probably lies that was a little erythematous in this area was cauterized. The bladder neck and proximal prostate had a little bleeding likely from the manipulation and these areas were cauterized. We then removed the scope and placed a 20 Ukrainian three-way catheter without difficulty. 20 cc were placed into the Ovalle balloon and it was hooked up to continuous bladder irrigation. Patient tolerated procedure well there are no complications. Condition: stable Disposition: PACU Specimens:: Bladder clot was not sent to pathology Complications:: None
--- NOTE | 2020-05-09 16:20 | PC.NURSE ---
1525-detailed report called to RenéeRN 1538-pt transported to 2nd floor room 202 via hospital bed per MY Mo and BaltaRN and left in care of MY Chinchilla with bed locked in lowest position, vss, pt stable
--- NOTE | 2020-05-09 17:04 | PC.NURSE ---
pt has done well today after his surgery. no pain thus far. CBI currently going, urine is pink tinge to yellow. bleeding at insertion site of sotomayor, Dr. Weir is aware. pt turned q2hr when he request. lungs cta, bowel sounds active. at bedside. vss. will cont. to monitor.
[2020-05-10] VITALS: BP 146/91; PULSE 104; RESP 22; TEMP 36.5; O2SAT 100
--- NOTE | 2020-05-10 03:00 | PC.NURSE ---
A&OX3. [employer] AGENT EQUAL BILAT. LUNGS CLEAR T/O AUSCULTATION. TOLERATED RA WELL. ABDOMEN NONDISTENDED, ACTIVE BOWEL SOUNDS, SOFT AND NONTENDER PER PALPATION. CBI THIS SHIFT, PATENT YELLOW URINE WITH SEDIMENT NOTED, ONLY ONE 3000 ML BAG HAS ADMINISTERED SO FAR THIS SHIFT. NAILS CATHETER SITE NOTED WITH GAUZE THAT CONTAINS BLOODY DRAINAGE, UNCHANGED FROM DAY SHIFT REPORT. TURNED AND REPOSITIONED INTERMITTENTLY T/O SHIFT. VSS. WILL CONTINUE TO MONITOR.
[2020-05-10 04:00] VITALS: BP 160/91; PULSE 101; RESP 21; TEMP 36.8; O2SAT 97
[2020-05-10 05:00] VITALS: BMI 25.0
[2020-05-10 07:03] LABS: Basophils % 0.4 % (0.1-2.0); Eosinophils # 0.1 K/mm3 (0.0-0.4); Eosinophils % 1.3 % (0.1-12.0); Hematocrit 30.4 % (42.0-52.0); Hemoglobin 9.4 g/dL (14.1-18.0); Lymphocytes # 1.7 K/mm3 (0.7-4.5); Mean Corpuscular HGB Conc 30.8 g/dL (31.8-35.4); Mean Corpuscular Hemoglobin 27.7 pg (27.0-31.2); Mean Platelet Volume 8.1 fl (7.4-10.4); Monocytes # 0.6 K/mm3 (0.1-1.0); Monocytes % 5.7 % (1.7-9.3); Neutrophils # 7.7 K/mm3 (1.8-7.8); Neutrophils % 75.5 % (37.0-80.0); Platelet Count 318 K/mm3 (142-424); Red Blood Count 3.38 M/mm3 (4.60-6.20); White Blood Count 10.1 K/mm3 (4.8-10.8)
[2020-05-10 07:22] LABS: Chloride 106 mmol/L (98-107); Potassium 4.4 mmoL/L (3.5-5.1); Sodium 137 mmol/L (136-145)
[2020-05-10 07:25] LABS: Anion Gap 11.4 mEq/L (5-15); Blood Urea Nitrogen 13 mg/dl (9-20); Calcium 8.3 mg/dl (8.4-10.2); Carbon Dioxide 24 mmol/L (22.0-30.0); Creatinine Clearance Estimated 74 mL/min (50-200); Estimated Glomerular Filt Rate 74 ml/min (>60); GFR (African American) 89 ML/MIN (>60); Glucose 104 mg/dl (74-100)
[2020-05-10 08:00] VITALS: BP 156/86; PULSE 94; RESP 18; TEMP 36.7; O2SAT 98
--- NOTE | 2020-05-10 08:01 | HMH.DCSUM ---
General - General Admission date:: 05/09/20 Discharge date: 05/10/20 HPI HPI: 69-year-old male paraplegic from spinal stroke after lumbar spine surgery presented to the emergency department with inability to urinate and blood around his catheter site yesterday evening. Patient has his Ovalle catheter changed with local home health. After changing of his Ovalle catheter he developed urinary retention and then blood was leaking out around the catheter. Patient was brought to the emergency department where a new catheter was reinserted and produced grossly bloody urine with improvement in bladder distention and urinary retention. Urinalysis was abnormal with positive nitrites. Patient was admitted for urologic consultation. Since admission nursing has reported bright red blood per rectum as well. Patient does take anticoagulants for history of DVT of the left lower extremity. Hospital Course Hospital Course: Patient was admitted for urologic consultation. On May 09 he was taken to the OR for cystoscopy. Patient had evidence of some mild bladder trauma but no signs of malignancy. Large clots were removed. Postoperatively patient was more comfortable. Continuous bladder irrigation was performed with no recurrence of gross hematuria. At discharge patient had gram-negative rods growing in his urine and will be started on Augmentin. Patient will follow-up with Dr. Weir and myself. Patient will discontinue therapeutic dosing of Eliquis. In 1 week he will restart prophylactic dosing of Eliquis for his history of DVT and his immobility Objective Vital signs: Temp Pulse Resp BP Pulse Ox 98.3 F 101 H 21 160/91 H 97 05/10/20 04:00 05/10/20 04:00 05/10/20 04:00 05/10/20 04:00 05/10/20 04:00 no acute distress - *Routine Respiratory Exam Present: CTA bilaterally - *Routine Cardiovascular Exam Present: RRR - *Routine Exam Comments: Ovalle catheter is in place with clear yellow urine in the Ovalle bag Results Labs on day of discharge: Labs from last 24 hours 05/10/20 05/10/20 05/09/20 06:25 06:25 01:31 WBC 10.1 RBC 3.38 L Hgb 9.4 L Hct 30.4 L MCV 90.0 MCH 27.7 MCHC 30.8 L RDW 15.0 Plt Count 318 MPV 8.1 Neut % (Auto) 75.5 Lymph % (Auto) 17.0 [place] % (Auto) 5.7 Eos % (Auto) 1.3 Baso % (Auto) 0.4 Neut # (Auto) 7.7 Lymph # (Auto) 1.7 [place] # (Auto) 0.6 Eos # (Auto) 0.1 Baso # (Auto) 0.0 Sodium 137 Potassium 4.4 Chloride 106 Carbon Dioxide 24 Anion Gap 11.4 BUN 13 D Creatinine 1.00 Estimated Creat Clear 74 Estimated GFR 74 Est GFR ( Amer) 89 Glucose 104 H Calcium 8.3 L Urine Color Red Urine Appearance Turbid Urine pH 7.5 Ur Specific [place] 1.025 Urine Protein 3+ Urine Glucose (UA) Negative Urine Ketones Negative Urine Blood 3+ Urine Nitrate Positive Urine Bilirubin Negative Urine Urobilinogen 1.0 Ur Leukocyte Esterase Trace Urine RBC Tntc Urine WBC 3-5 Urine Bacteria 2+ Preliminary micro results at discharge 05/09/20 01:31 Urine Culture - Preliminary Urine,Clean Catch Gram Negative Rods DS: Diagnosis - Discharge Diagnosis (1) UTI (urinary tract infection) Status: Acute (2) Hematuria Status: Resolved (3) Acute retention of urine Status: Resolved (4) long-term current use of anticoagulant Status: Acute Discharge Plan - Patient Discharge Instructions ACTIVITY: Continue current activity DIET: continue same diet Patient Instructions: How to Prevent Pressure Ulcers, Pressure Injuries, DI for Urinary Tract Infection (UTI), DI for Hematuria, DI for Urinary Retention in Men, DI for Multiple Drug-resistant Organism (MDRO) Infection, Catheter-Associated Urinary Tract Infection - Follow up Plan Follow up with: Denis Ramirez MD [Staff Physician] - 05/17/20 2:15 pm Chidi Weir
--- NOTE | 2020-05-10 10:17 | HMH.ANESII ---
[facility] Anesthesia Record Part II Discharge Time: 15:25 Destination: Medical Surgical Department PACU nurse assessment reviewed?: Yes Patient Condition:: Good Anesthesia Complications:: None Swallowing reflex intact?: Yes Cyanosis?: No Blood Pressure: 131/80 Pulse Rate: 103 Temperature: 98.9 F Mental Status: Alert & Oriented Pain level:: 0 Nausea and/or vomitting:: None Intake, IV Amount: 0
[2020-05-10 10:18] VITALS: BP 131/80; PULSE 103; TEMP 37.2
--- NOTE | 2020-05-10 10:46 | PC.NURSE ---
Notifed [facility] about transfer to patient's home. They said they would be up shortly.
--- NOTE | 2020-05-10 11:15 | PC.NURSE ---
A&OX4. PT HAS TOLERATED ROOM AIR WELL THROUGHOUT SHIFT. RESPIRATIONS REGULAR AND UNLABORED. LUNG SOUNDS BILATERALLY CLEAR. NO COUGH NOTED. NO EDEMA NOTED. TEDS ON. ACTIVE BOWEL SOUNDS HEARD IN ALL 4 QUADRANTS. SOFT AND NONTENDER ABDOMEN. NO BM THUS FAR. NAILS CATHETER IN PLACE W CLEAR YELLOW URINE NOTED IN DRAINAGE BAG. NO KINKS NOTED. CBI WAS GOING THIS AM BUT DR BURNS CALLED AND ASKED TO STOP IT. PT TOLERATED IT WELL. NAILS WAS CAPPED OFF AND LEFT IN ON DISCHARGE. IV WAS REMOVED W CATHETER INTACT. KOBAN AND 4X4S APPLIED. PHARMACY EDUCATED PT AND FAMILY ON MEDICATIONS BEING SENT HOME. [facility] IS TRANSPORTING PT BACK TO HIS HOME. PT IS CURRENTLY LYING IN BED W CALL LIGHT WITHIN REACH. BED IN LOWEST POSITION. VSS. WILL CONTINUE TO MONITOR.
--- NOTE | 2020-05-10 11:20 | PC.NURSE ---
[facility] arrived to transfer ptMessi
== END 2020-05-10 11:25 | disposition home or self-care (01) ==
LOC: ER 02:47 → 2ND 03:02
PROVIDERS: Urology; Admitting Provider Internal Medicine Adolescent Medicine; Emergency Provider Emergency Medicine; PCP Family Medicine; Visit Provider Family Medicine
PROC: 0TJB8ZZ Inspection of Bladder, Via Natural or Artificial Opening Endoscopic (ICD-10-PCS; CPT 52000; principal; 2020-05-09 13:30)
DX: R31.0 Gross hematuria (principal); N39.0 Urinary tract infection, site not specified; B96.20 Unspecified Escherichia coli [E. coli] as the cause of diseases classified elsewhere; N31.9 Neuromuscular dysfunction of bladder, unspecified; Z86.718 Personal history of other venous thrombosis and embolism; I10 Essential (primary) hypertension; I69.369 Other paralytic syndrome following cerebral infarction affecting unspecified side; G82.20 Paraplegia, unspecified
CPT/HCPCS: 52001; 52214; 36415; 74176; 80048; 81001; 82272; 85025; 86328; 87081; 87086; 87088; 87186; 96374; 99284; G0328; G0378; J2405

== ENCOUNTER 2020-06-06 11:55 | Outpatient (CLI) | payer MEDICARE, OTHER, SELFPAY ==
[2020-06-06 12:00] VITALS: BMI 27.3
[2020-06-06 12:21] LABS: Basophils # 0.1 K/mm3 (0-0.2); Basophils % 1.1 % (0.1-2.0); Eosinophils # 0.4 K/mm3 (0.0-0.4); Eosinophils % 7.5 % (0.1-12.0); Hematocrit 31.5 % (42.0-52.0); Hemoglobin 9.7 g/dL (14.1-18.0); Lymphocytes # 1.8 K/mm3 (0.7-4.5); Lymphocytes % 37.8 % (10-50); Mean Corpuscular HGB Conc 30.7 g/dL (31.8-35.4); Mean Corpuscular Hemoglobin 25.3 pg (27.0-31.2); Mean Corpuscular Volume 82.5 fl (80-94); Mean Platelet Volume 8.6 fl (7.4-10.4); Monocytes # 0.5 K/mm3 (0.1-1.0); Monocytes % 10.4 % (1.7-9.3); Neutrophils # 2.1 K/mm3 (1.8-7.8); Neutrophils % 43.3 % (37.0-80.0); Platelet Count 454 K/mm3 (142-424); Red Blood Count 3.81 M/mm3 (4.60-6.20); Red Cell Distribution Width 14.4 % (11.5-17.5); White Blood Count 4.8 K/mm3 (4.8-10.8)
[2020-06-06 12:22] VITALS: BP 119/74; PULSE 94; RESP 18; TEMP 36.6; O2SAT 99
[2020-06-06 12:27] LABS: Chloride 105 mmol/L (98-107); Potassium 3.6 mmoL/L (3.5-5.1); Sodium 139 mmol/L (136-145)
[2020-06-06 12:29] LABS: Alanine Aminotransferase 6 U/L (12-78); Alkaline Phosphatase 92 U/L (38-126); Aspartate Amino Transferase 15 U/L (17-59); Bilirubin,Total 0.5 mg/dl (0.2-1.3); Blood Urea Nitrogen 10 mg/dl (9-20); Creatinine Clearance Estimated 82 mL/min (50-200); Estimated Glomerular Filt Rate 74 ml/min (>60); GFR (African American) 89 ML/MIN (>60)
[2020-06-06 12:30] LABS: Albumin Level 4.1 g/dl (3.5-5.0); Albumin/Globulin Ratio 1.1 (1.1-1.8); Anion Gap 14.6 mEq/L (5-15); Carbon Dioxide 23 mmol/L (22.0-30.0); Globulin 3.6 g/dL (1.3-3.2); Glucose 79 mg/dl (74-100); Total Protein,Serum 7.7 g/dl (6.3-8.2)
[2020-06-06 12:35] LABS: C-Reactive Protein 2.1 mg/L (0-4)
[2020-06-06 13:05] VITALS: BP 153/85; PULSE 94; RESP 18
== END 2020-06-06 13:05 | disposition home or self-care (01) ==
LOC: INF 12:00
PROVIDERS: Visit Provider Physician Assistant
DX: K51.00 Ulcerative (chronic) pancolitis without complications (principal); K51.80 Other ulcerative colitis without complications
CPT/HCPCS: 80053; 85025; 86140; 96413; J3380

== ENCOUNTER → 2020-07-24 16:57 | Outpatient (CLI) | payer MEDICARE, OTHER, SELFPAY ==
[2020-07-24 17:39] LABS: Iron 29 ug/dL (49-181)
[2020-07-24 17:48] LABS: Total Iron Binding Capacity 277 ug/dL (261-462)
[2020-07-24 18:16] LABS: Ferritin 12.3 ng/ml (17.9-464)
[2020-07-26 09:50] LABS: Transferrin 231 mg/dL (177-329)
== END ==
PROVIDERS: Visit Provider Family Medicine
DX: D50.9 Iron deficiency anemia, unspecified (principal)
CPT/HCPCS: 82728; 83540; 83550; 84466

== ENCOUNTER 2020-07-25 12:45 | Outpatient (CLI) | payer MEDICARE, OTHER, SELFPAY ==
[2020-07-25 12:58] VITALS: BMI 27.3
[2020-07-25 13:19] LABS: Basophils # 0.1 K/mm3 (0-0.2); Eosinophils # 0.1 K/mm3 (0.0-0.4); Eosinophils % 2.4 % (0.1-12.0); Hematocrit 44.4 % (42.0-52.0); Hemoglobin 13.5 g/dL (14.1-18.0); Lymphocytes # 2.2 K/mm3 (0.7-4.5); Lymphocytes % 43.2 % (10-50); Mean Corpuscular HGB Conc 30.3 g/dL (31.8-35.4); Mean Corpuscular Hemoglobin 25.1 pg (27.0-31.2); Mean Corpuscular Volume 82.7 fl (80-94); Mean Platelet Volume 8.7 fl (7.4-10.4); Monocytes # 0.4 K/mm3 (0.1-1.0); Monocytes % 7.8 % (1.7-9.3); Neutrophils # 2.3 K/mm3 (1.8-7.8); Neutrophils % 45.6 % (37.0-80.0); Platelet Count 316 K/mm3 (142-424); Red Blood Count 5.37 M/mm3 (4.60-6.20); Red Cell Distribution Width 17.9 % (11.5-17.5)
[2020-07-25 13:20] VITALS: BP 158/97; PULSE 93; RESP 18; TEMP 36.3; O2SAT 99
[2020-07-25 13:27] LABS: Chloride 105 mmol/L (98-107); Sodium 141 mmol/L (136-145)
[2020-07-25 13:30] LABS: Alanine Aminotransferase 6 U/L (12-78); Albumin Level 4.2 g/dl (3.5-5.0); Alkaline Phosphatase 92 U/L (38-126); Aspartate Amino Transferase 21 U/L (17-59); Bilirubin,Total 0.3 mg/dl (0.2-1.3); Blood Urea Nitrogen 12 mg/dl (9-20); Carbon Dioxide 30 mmol/L (22.0-30.0); Creatinine Clearance Estimated 82 mL/min (50-200); Estimated Glomerular Filt Rate 74 ml/min (>60); GFR (African American) 89 ML/MIN (>60); Globulin 4.1 g/dL (1.3-3.2); Total Protein,Serum 8.3 g/dl (6.3-8.2)
[2020-07-25 13:31] LABS: Calcium 9.5 mg/dl (8.4-10.2); Glucose 82 mg/dl (74-100)
[2020-07-25 13:35] VITALS: BP 176/105; PULSE 103; RESP 18
[2020-07-25 13:55] VITALS: BP 143/87; PULSE 100; RESP 18
--- NOTE | 2020-07-25 15:37 | PC.NURSE ---
1355-ENCOURAGED TO F/U WITH PCP IN REGARDS TO ELEVATED BP PT IS NOT CURRENTLY TAKING ANTIHYPERTENSIVE. MESSAGE ALSO LEFT WITH HOME HEALTH NURSE, CARLOS WEINBERG, IN REGARDS TO ELEVATED BP'S WHILE GETTING INFUSION TODAY.
== END 2020-07-25 14:00 | disposition home or self-care (01) ==
LOC: INF 12:51
PROVIDERS: Visit Provider Physician Assistant
DX: K51.00 Ulcerative (chronic) pancolitis without complications (principal); K51.80 Other ulcerative colitis without complications
CPT/HCPCS: 80053; 85025; 86140; 96413; J3380

== ENCOUNTER 2020-09-19 12:14 | Outpatient (CLI) | payer MEDICARE, OTHER, SELFPAY ==
[2020-09-19 12:15] VITALS: BMI 27.3
[2020-09-19 12:22] LABS: Microscopic, Urine URINE MICROSCOPIC (MICROSCOPIC)
[2020-09-19 12:36] LABS: Appearance,Urine SL CLOUDY (Clear); Bilirubin,Urine Negative (Negative); Blood, Urine TRACE-I (Negative); Color,Urine STRAW (Yellow); Glucose,Urine (UA) Negative (Negative); Ketones,Urine Negative (Negative); Leukocyte Esterase,Urine 3+ (Negative); Nitrate,Urine POSITIVE (Negative); PH,Urine 6.5 (5.0-8.5); Protein,Urine Negative (Negative); Specific Gravity, Urine 1.015 (1.005-1.030); Urobilinogen,Urine 0.2 EU/dl (0.2)
[2020-09-19 12:41] VITALS: BP 128/84; PULSE 82; RESP 20; TEMP 36.6; O2SAT 100
[2020-09-19 12:43] LABS: Basophils % 0.7 % (0.1-2.0); Eosinophils # 0.2 K/mm3 (0.0-0.4); Eosinophils % 2.9 % (0.1-12.0); Hematocrit 44.8 % (42.0-52.0); Hemoglobin 13.7 g/dL (14.1-18.0); Lymphocytes # 1.9 K/mm3 (0.7-4.5); Lymphocytes % 32.6 % (10-50); Mean Corpuscular HGB Conc 30.6 g/dL (31.8-35.4); Mean Corpuscular Hemoglobin 25.2 pg (27.0-31.2); Mean Corpuscular Volume 82.4 fl (80-94); Mean Platelet Volume 8.3 fl (7.4-10.4); Monocytes # 0.4 K/mm3 (0.1-1.0); Monocytes % 6.7 % (1.7-9.3); Neutrophils # 3.4 K/mm3 (1.8-7.8); Neutrophils % 57.2 % (37.0-80.0); Platelet Count 320 K/mm3 (142-424); Red Blood Count 5.44 M/mm3 (4.60-6.20); Red Cell Distribution Width 19.8 % (11.5-17.5); White Blood Count 5.9 K/mm3 (4.8-10.8)
[2020-09-19 12:44] LABS: WBC,Urine TNTC #/hpf (0-3)
[2020-09-19 12:45] LABS: Bacteria,Urine 4+ /lpf
[2020-09-19 12:50] LABS: Alanine Aminotransferase 7 U/L (12-78); Albumin Level 4.4 g/dl (3.5-5.0); Alkaline Phosphatase 104 U/L (38-126); Anion Gap 10.9 mEq/L (5-15); Aspartate Amino Transferase 26 U/L (17-59); Bilirubin,Total 0.5 mg/dl (0.2-1.3); Blood Urea Nitrogen 15 mg/dl (9-20); Calcium 9.8 mg/dl (8.4-10.2); Carbon Dioxide 30 mmol/L (22.0-30.0); Chloride 105 mmol/L (98-107); Creatinine Clearance Estimated 74 mL/min (50-200); Estimated Glomerular Filt Rate 66 ml/min (>60); GFR (African American) 80 ML/MIN (>60); Globulin 4.3 g/dL (1.3-3.2); Glucose 119 mg/dl (74-100); Potassium 3.9 mmoL/L (3.5-5.1); Sodium 142 mmol/L (136-145); Total Protein,Serum 8.7 g/dl (6.3-8.2)
[2020-09-19 13:11] VITALS: BP 133/81; PULSE 80; RESP 20; O2SAT 99
[2020-09-19 13:25] VITALS: BP 140/86; PULSE 82; RESP 20; O2SAT 100
[2020-09-19 14:26] LABS: C-Reactive Protein 3.1 mg/L (0-4)
== END 2020-09-19 13:25 | disposition home or self-care (01) ==
LOC: INF 12:14
PROVIDERS: Visit Provider Physician Assistant
DX: K51.90 Ulcerative colitis, unspecified, without complications (principal); N39.0 Urinary tract infection, site not specified
CPT/HCPCS: 80053; 81001; 85025; 86140; 87086; 87088; 87186; 96413; J3380

== ENCOUNTER 2020-11-14 11:30 | Outpatient (CLI) | payer MEDICARE, OTHER, SELFPAY ==
[2020-11-14 11:32] VITALS: BMI 27.3
[2020-11-14 11:53] LABS: Basophils # 0.1 K/mm3 (0-0.2); Basophils % 1.3 % (0.1-2.0); Eosinophils # 0.1 K/mm3 (0.0-0.4); Eosinophils % 2.2 % (0.1-12.0); Hematocrit 42.2 % (42.0-52.0); Hemoglobin 13.8 g/dL (14.1-18.0); Lymphocytes % 43.5 % (10-50); Mean Corpuscular HGB Conc 32.8 g/dL (31.8-35.4); Mean Corpuscular Hemoglobin 28.3 pg (27.0-31.2); Mean Corpuscular Volume 86.3 fl (80-94); Mean Platelet Volume 8.4 fl (7.4-10.4); Monocytes # 0.4 K/mm3 (0.1-1.0); Neutrophils # 2.1 K/mm3 (1.8-7.8); Platelet Count 284 K/mm3 (142-424); Red Cell Distribution Width 17.1 % (11.5-17.5); White Blood Count 4.7 K/mm3 (4.8-10.8)
[2020-11-14 12:09] LABS: Alanine Aminotransferase 9 U/L (12-78); Albumin Level 4.1 g/dl (3.5-5.0); Albumin/Globulin Ratio 1.1 (1.1-1.8); Alkaline Phosphatase 86 U/L (38-126); Anion Gap 12.1 mEq/L (5-15); Aspartate Amino Transferase 24 U/L (17-59); Bilirubin,Total 0.5 mg/dl (0.2-1.3); Blood Urea Nitrogen 16 mg/dl (9-20); Calcium 9.1 mg/dl (8.4-10.2); Carbon Dioxide 27 mmol/L (22.0-30.0); Chloride 106 mmol/L (98-107); Creatinine Clearance Estimated 80 mL/min (50-200); Estimated Glomerular Filt Rate 74 ml/min (>60); GFR (African American) 89 ML/MIN (>60); Globulin 3.7 g/dL (1.3-3.2); Glucose 90 mg/dl (74-100); Potassium 4.1 mmoL/L (3.5-5.1); Sodium 141 mmol/L (136-145); Total Protein,Serum 7.8 g/dl (6.3-8.2)
[2020-11-14 12:15] VITALS: BP 132/74; PULSE 72; RESP 20; TEMP 36.4; O2SAT 98
[2020-11-14 12:50] VITALS: BP 135/74; PULSE 68; RESP 20; TEMP 36.9; O2SAT 95
== END 2020-11-14 12:45 | disposition home or self-care (01) ==
LOC: INF 11:31
PROVIDERS: Visit Provider Physician Assistant
DX: K51.80 Other ulcerative colitis without complications (principal)
CPT/HCPCS: 80053; 85025; 86140; 96365; 96413; J3380

== ENCOUNTER → 2020-12-07 15:21 | Outpatient (CLI) | payer MEDICARE, OTHER, SELFPAY | PROVIDERS: Visit Provider Urology | DX: N40.1 Benign prostatic hyperplasia with lower urinary tract symptoms (principal); R39.11 Hesitancy of micturition | CPT/HCPCS: 87086; 87088; 87186 ==

== ENCOUNTER 2021-01-09 11:12 | Outpatient (CLI) | payer MEDICARE, OTHER, SELFPAY ==
[2021-01-09 11:14] VITALS: BMI 27.3
[2021-01-09 11:57] LABS: Basophils # 0.1 K/mm3 (0-0.2); Eosinophils # 0.1 K/mm3 (0.0-0.4); Eosinophils % 2.7 % (0.1-12.0); Hematocrit 46.1 % (42.0-52.0); Hemoglobin 15.6 g/dL (14.1-18.0); Lymphocytes % 36.2 % (10-50); Mean Corpuscular HGB Conc 33.8 g/dL (31.8-35.4); Mean Corpuscular Hemoglobin 29.3 pg (27.0-31.2); Mean Corpuscular Volume 86.8 fl (80-94); Mean Platelet Volume 8.6 fl (7.4-10.4); Monocytes # 0.3 K/mm3 (0.1-1.0); Neutrophils # 2.9 K/mm3 (1.8-7.8); Neutrophils % 54.2 % (37.0-80.0); Platelet Count 269 K/mm3 (142-424); Red Blood Count 5.31 M/mm3 (4.60-6.20); Red Cell Distribution Width 13.9 % (11.5-17.5); White Blood Count 5.4 K/mm3 (4.8-10.8)
[2021-01-09 12:05] LABS: Chloride 102 mmol/L (98-107); Sodium 137 mmol/L (136-145)
[2021-01-09 12:10] VITALS: BP 151/80; PULSE 105; RESP 18; TEMP 36.2
[2021-01-09 12:25] LABS: Alanine Aminotransferase 8 U/L (12-78); Albumin Level 4.6 g/dl (3.5-5.0); Albumin/Globulin Ratio 1.2 (1.1-1.8); Alkaline Phosphatase 124 U/L (38-126); Anion Gap 12.9 mEq/L (5-15); Aspartate Amino Transferase 34 U/L (17-59); Blood Urea Nitrogen 18 mg/dl (9-20); C-Reactive Protein 3.1 mg/L (0-4); Calcium 9.1 mg/dl (8.4-10.2); Carbon Dioxide 27 mmol/L (22.0-30.0); Creatinine Clearance Estimated 80 mL/min (50-200); Estimated Glomerular Filt Rate 83 ml/min (>60); GFR (African American) 101 ML/MIN (>60); Globulin 3.9 g/dL (1.3-3.2); Glucose 89 mg/dl (74-100); Potassium 4.9 mmoL/L (3.5-5.1); Total Protein,Serum 8.5 g/dl (6.3-8.2)
[2021-01-09 12:50] VITALS: BP 169/84; PULSE 105; RESP 18
[2021-01-12 04:38] LABS: QuantiFERON-TB Gold Plus Negative (Negative)
== END 2021-01-09 12:50 | disposition home or self-care (01) ==
LOC: INF 11:12
PROVIDERS: Visit Provider Physician Assistant
DX: K51.00 Ulcerative (chronic) pancolitis without complications (principal)
CPT/HCPCS: 80053; 85025; 86140; 86480; 96365; 96413; J3380

== ENCOUNTER → 2021-02-06 16:07 | Outpatient (CLI) | payer MEDICARE, OTHER, SELFPAY | PROVIDERS: Visit Provider Urology | DX: N40.1 Benign prostatic hyperplasia with lower urinary tract symptoms (principal); R39.11 Hesitancy of micturition | CPT/HCPCS: 87086; 87088; 87186 ==

== ENCOUNTER 2021-03-13 11:11 | Outpatient (CLI) | payer MEDICARE, OTHER, SELFPAY ==
[2021-03-13 11:16] VITALS: BMI 27.3
[2021-03-13 11:38] LABS: Basophils # 0.1 K/mm3 (0-0.2); Basophils % 1.2 % (0.1-2.0); Eosinophils # 0.1 K/mm3 (0.0-0.4); Eosinophils % 2.1 % (0.1-12.0); Hematocrit 44.1 % (42.0-52.0); Hemoglobin 14.6 g/dL (14.1-18.0); Lymphocytes # 1.7 K/mm3 (0.7-4.5); Lymphocytes % 38.4 % (10-50); Mean Corpuscular Hemoglobin 28.9 pg (27.0-31.2); Mean Corpuscular Volume 87.6 fl (80-94); Mean Platelet Volume 8.7 fl (7.4-10.4); Monocytes # 0.4 K/mm3 (0.1-1.0); Monocytes % 8.2 % (1.7-9.3); Neutrophils # 2.2 K/mm3 (1.8-7.8); Platelet Count 236 K/mm3 (142-424); Red Blood Count 5.04 M/mm3 (4.60-6.20); Red Cell Distribution Width 14.2 % (11.5-17.5); White Blood Count 4.4 K/mm3 (4.8-10.8)
[2021-03-13 11:41] LABS: Chloride 107 mmol/L (98-107); Potassium 3.8 mmoL/L (3.5-5.1); Sodium 143 mmol/L (136-145)
[2021-03-13 11:44] LABS: Alanine Aminotransferase 6 U/L (12-78); Albumin Level 4.3 g/dl (3.5-5.0); Albumin/Globulin Ratio 1.1 (1.1-1.8); Alkaline Phosphatase 102 U/L (38-126); Anion Gap 10.8 mEq/L (5-15); Aspartate Amino Transferase 28 U/L (17-59); Bilirubin,Total 0.5 mg/dl (0.2-1.3); Blood Urea Nitrogen 20 mg/dl (9-20); Carbon Dioxide 29 mmol/L (22.0-30.0); Creatinine Clearance Estimated 80 mL/min (50-200); Estimated Glomerular Filt Rate 74 ml/min (>60); GFR (African American) 89 ML/MIN (>60); Globulin 3.8 g/dL (1.3-3.2); Total Protein,Serum 8.1 g/dl (6.3-8.2)
[2021-03-13 11:45] LABS: Calcium 9.1 mg/dl (8.4-10.2); Glucose 73 mg/dl (74-100)
[2021-03-13 11:52] LABS: C-Reactive Protein 1.5 mg/L (0-4)
[2021-03-13 12:31] VITALS: BP 147/60; PULSE 77; RESP 17; TEMP 36.6; O2SAT 100
[2021-03-13 13:25] VITALS: BP 147/90; PULSE 93; RESP 17; O2SAT 97
== END 2021-03-13 13:31 | disposition home or self-care (01) ==
LOC: INF 11:11
PROVIDERS: Visit Provider Physician Assistant
DX: K51.90 Ulcerative colitis, unspecified, without complications (principal)
CPT/HCPCS: 80053; 85025; 86140; 96365; 96413; J3380

== ENCOUNTER 2021-05-08 10:58 | Outpatient (CLI) | payer MEDICARE, OTHER, SELFPAY ==
[2021-05-08 11:15] VITALS: BMI 27.3
[2021-05-08 11:40] VITALS: BP 132/88; PULSE 92; RESP 18; TEMP 36.2; O2SAT 98
[2021-05-08 11:42] LABS: Basophils # 0.1 K/mm3 (0-0.2); Basophils % 0.9 % (0.1-2.0); Eosinophils # 0.1 K/mm3 (0.0-0.4); Eosinophils % 2.2 % (0.1-12.0); Lymphocytes # 1.4 K/mm3 (0.7-4.5); Lymphocytes % 28.1 % (10-50); Mean Corpuscular HGB Conc 32.5 g/dL (31.8-35.4); Mean Corpuscular Hemoglobin 29.5 pg (27.0-31.2); Mean Corpuscular Volume 90.7 fl (80-94); Mean Platelet Volume 8.5 fl (7.4-10.4); Monocytes # 0.3 K/mm3 (0.1-1.0); Monocytes % 6.1 % (1.7-9.3); Neutrophils # 3.2 K/mm3 (1.8-7.8); Neutrophils % 62.7 % (37.0-80.0); Platelet Count 310 K/mm3 (142-424); Red Blood Count 5.08 M/mm3 (4.60-6.20); Red Cell Distribution Width 14.1 % (11.5-17.5); White Blood Count 5.1 K/mm3 (4.8-10.8)
[2021-05-08 11:47] LABS: Alanine Aminotransferase 8 U/L (12-78); Albumin Level 4.1 g/dl (3.5-5.0); Alkaline Phosphatase 100 U/L (38-126); Anion Gap 11.7 mEq/L (5-15); Aspartate Amino Transferase 20 U/L (17-59); Bilirubin,Total 0.4 mg/dl (0.2-1.3); Blood Urea Nitrogen 11 mg/dl (9-20); Calcium 9.1 mg/dl (8.4-10.2); Carbon Dioxide 27 mmol/L (22.0-30.0); Chloride 106 mmol/L (98-107); Creatinine Clearance Estimated 80 mL/min (50-200); Estimated Glomerular Filt Rate 95 ml/min (>60); GFR (African American) 115 ML/MIN (>60); Globulin 4.1 g/dL (1.3-3.2); Glucose 123 mg/dl (74-100); Potassium 3.7 mmoL/L (3.5-5.1); Sodium 141 mmol/L (136-145); Total Protein,Serum 8.2 g/dl (6.3-8.2)
[2021-05-08 12:03] LABS: C-Reactive Protein 3.3 mg/L (0-4)
[2021-05-08 12:30] VITALS: BP 160/87; PULSE 102; RESP 18; O2SAT 97
== END 2021-05-08 12:30 | disposition home or self-care (01) ==
LOC: INF 11:00
PROVIDERS: PCP Family Medicine; Visit Provider Physician Assistant
DX: K51.90 Ulcerative colitis, unspecified, without complications (principal)
CPT/HCPCS: 80053; 85025; 86140; 96365; 96413; J3380

== ENCOUNTER 2021-07-03 11:46 | Outpatient (CLI) | payer MEDICARE, OTHER, SELFPAY ==
[2021-07-03 11:57] VITALS: BMI 27.3
[2021-07-03 12:23] LABS: Basophils # 0.1 K/mm3 (0-0.2); Basophils % 1.7 % (0.1-2.0); Eosinophils # 0.1 K/mm3 (0.0-0.4); Hematocrit 44.4 % (42.0-52.0); Hemoglobin 14.8 g/dL (14.1-18.0); Lymphocytes # 1.9 K/mm3 (0.7-4.5); Lymphocytes % 45.4 % (10-50); Mean Corpuscular HGB Conc 33.3 g/dL (31.8-35.4); Mean Corpuscular Hemoglobin 29.1 pg (27.0-31.2); Mean Corpuscular Volume 87.6 fl (80-94); Mean Platelet Volume 9.1 fl (7.4-10.4); Monocytes # 0.4 K/mm3 (0.1-1.0); Monocytes % 9.9 % (1.7-9.3); Neutrophils # 1.6 K/mm3 (1.8-7.8); Platelet Count 287 K/mm3 (142-424); Red Blood Count 5.06 M/mm3 (4.60-6.20); Red Cell Distribution Width 14.3 % (11.5-17.5); White Blood Count 4.1 K/mm3 (4.8-10.8)
[2021-07-03 12:32] LABS: Alanine Aminotransferase 15 U/L (12-78); Albumin Level 4.3 g/dl (3.5-5.0); Albumin/Globulin Ratio 1.2 (1.1-1.8); Alkaline Phosphatase 70 U/L (38-126); Aspartate Amino Transferase 43 U/L (17-59); Blood Urea Nitrogen 15 mg/dl (9-20); Calcium 8.9 mg/dl (8.4-10.2); Carbon Dioxide 25 mmol/L (22.0-30.0); Chloride 106 mmol/L (98-107); Creatinine Clearance Estimated 80 mL/min (50-200); Estimated Glomerular Filt Rate 95 ml/min (>60); GFR (African American) 115 ML/MIN (>60); Globulin 3.7 g/dL (1.3-3.2); Glucose 100 mg/dl (74-100); Sodium 138 mmol/L (136-145)
[2021-07-03 12:37] VITALS: BP 152/97; PULSE 99; RESP 18; TEMP 36.8; O2SAT 100
[2021-07-03 12:37] LABS: C-Reactive Protein 1.6 mg/L (0-4)
[2021-07-03 13:25] VITALS: BP 132/84; PULSE 98; RESP 18
== END 2021-07-03 13:25 | disposition home or self-care (01) ==
LOC: INF 11:47
PROVIDERS: PCP Family Medicine; Visit Provider Physician Assistant
DX: Z87.19 Personal history of other diseases of the digestive system (principal); K51.90 Ulcerative colitis, unspecified, without complications
CPT/HCPCS: 80053; 85025; 86140; 96365; 96413; J3380

== ENCOUNTER 2021-09-05 12:30 | Outpatient (CLI) | payer MEDICARE, OTHER, SELFPAY ==
[2021-09-05 12:16] VITALS: BMI 27.3
[2021-09-05 13:20] VITALS: BP 137/87; PULSE 93; RESP 16; O2SAT 99
[2021-09-05 13:25] LABS: Basophils # 0.1 K/mm3 (0-0.2); Eosinophils # 0.1 K/mm3 (0.0-0.4); Eosinophils % 2.4 % (0.1-12.0); Hematocrit 49.8 % (42.0-52.0); Hemoglobin 15.5 g/dL (14.1-18.0); Lymphocytes # 1.7 K/mm3 (0.7-4.5); Lymphocytes % 39.8 % (10-50); Mean Corpuscular HGB Conc 31.1 g/dL (31.8-35.4); Mean Corpuscular Hemoglobin 28.3 pg (27.0-31.2); Mean Platelet Volume 8.8 fl (7.4-10.4); Monocytes # 0.4 K/mm3 (0.1-1.0); Monocytes % 9.1 % (1.7-9.3); Neutrophils % 45.7 % (37.0-80.0); Platelet Count 309 K/mm3 (142-424); Red Blood Count 5.47 M/mm3 (4.60-6.20); Red Cell Distribution Width 14.6 % (11.5-17.5); White Blood Count 4.3 K/mm3 (4.8-10.8)
[2021-09-05 13:32] LABS: Chloride 101 mmol/L (98-107); Potassium 4.3 mmoL/L (3.5-5.1); Sodium 136 mmol/L (136-145)
[2021-09-05 13:35] VITALS: BP 121/77; PULSE 100; RESP 16
[2021-09-05 13:35] LABS: Alanine Aminotransferase 11 U/L (12-78); Albumin Level 4.5 g/dl (3.5-5.0); Albumin/Globulin Ratio 1.1 (1.1-1.8); Alkaline Phosphatase 97 U/L (38-126); Anion Gap 13.3 mEq/L (5-15); Aspartate Amino Transferase 29 U/L (17-59); Bilirubin,Total 0.8 mg/dl (0.2-1.3); Blood Urea Nitrogen 14 mg/dl (9-20); Calcium 8.5 mg/dl (8.4-10.2); Carbon Dioxide 26 mmol/L (22.0-30.0); Creatinine Clearance Estimated 80 mL/min (50-200); Estimated Glomerular Filt Rate 95 ml/min (>60); GFR (African American) 115 ML/MIN (>60); Glucose 74 mg/dl (74-100); Total Protein,Serum 8.5 g/dl (6.3-8.2)
[2021-09-05 13:41] LABS: C-Reactive Protein 1.6 mg/L (0-4)
[2021-09-05 13:50] VITALS: BP 151/92; PULSE 98; RESP 16
== END 2021-09-05 14:05 | disposition home or self-care (01) ==
LOC: INF 12:31
PROVIDERS: PCP Family Medicine; Visit Provider Physician Assistant
DX: K51.90 Ulcerative colitis, unspecified, without complications (principal)
CPT/HCPCS: 80053; 85025; 86140; 96365; 96413; J3380

== ENCOUNTER 2021-10-30 11:47 | Outpatient (CLI) | payer MEDICARE, OTHER, SELFPAY ==
[2021-10-30 11:58] VITALS: BMI 29.5
[2021-10-30 12:00] VITALS: BP 147/93; PULSE 83; RESP 16; TEMP 36.1; O2SAT 97
[2021-10-30 12:13] LABS: Basophils % 0.8 % (0.1-2.0); Eosinophils # 0.1 K/mm3 (0.0-0.4); Eosinophils % 2.1 % (0.1-12.0); Hematocrit 46.9 % (42.0-52.0); Hemoglobin 15.4 g/dL (14.1-18.0); Lymphocytes # 1.5 K/mm3 (0.7-4.5); Lymphocytes % 44.6 % (10-50); Mean Corpuscular HGB Conc 32.8 g/dL (31.8-35.4); Mean Corpuscular Hemoglobin 29.7 pg (27.0-31.2); Mean Corpuscular Volume 90.6 fl (80-94); Mean Platelet Volume 9.2 fl (7.4-10.4); Monocytes # 0.3 K/mm3 (0.1-1.0); Monocytes % 8.9 % (1.7-9.3); Neutrophils # 1.5 K/mm3 (1.8-7.8); Neutrophils % 43.5 % (37.0-80.0); Platelet Count 259 K/mm3 (142-424); Red Blood Count 5.18 M/mm3 (4.60-6.20); Red Cell Distribution Width 14.4 % (11.5-17.5); White Blood Count 3.5 K/mm3 (4.8-10.8)
[2021-10-30 12:19] LABS: Chloride 108 mmol/L (98-107); Sodium 139 mmol/L (136-145)
[2021-10-30 12:20] LABS: Potassium 4.5 mmoL/L (3.5-5.1)
[2021-10-30 12:22] LABS: Alanine Aminotransferase 11 U/L (12-78); Albumin Level 4.1 g/dl (3.5-5.0); Alkaline Phosphatase 75 U/L (38-126); Aspartate Amino Transferase 31 U/L (17-59); Blood Urea Nitrogen 12 mg/dl (9-20); Creatinine Clearance Estimated 86 mL/min (50-200); Estimated Glomerular Filt Rate 111 ml/min (>60); GFR (African American) 134 ML/MIN (>60)
[2021-10-30 12:23] LABS: Albumin/Globulin Ratio 1.1 (1.1-1.8); Anion Gap 10.5 mEq/L (5-15); Calcium 8.3 mg/dl (8.4-10.2); Carbon Dioxide 25 mmol/L (22.0-30.0); Globulin 3.6 g/dL (1.3-3.2); Glucose 85 mg/dl (74-100); Total Protein,Serum 7.7 g/dl (6.3-8.2)
[2021-10-30 13:24] VITALS: BP 137/75; PULSE 82; RESP 16; TEMP 36.1; O2SAT 100
== END 2021-10-30 13:28 | disposition home or self-care (01) ==
PROVIDERS: PCP Family Medicine; Visit Provider Physician Assistant
DX: K51.90 Ulcerative colitis, unspecified, without complications (principal)
CPT/HCPCS: 80053; 85025; 96365; 96413; J3380

== ENCOUNTER 2021-12-27 11:51 | Outpatient (CLI) | payer MEDICARE, OTHER, SELFPAY ==
[2021-12-27 12:05] VITALS: BMI 27.3
[2021-12-27 12:35] LABS: Basophils # 0.1 K/mm3 (0-0.2); Basophils % 3.1 % (0.1-2.0); Eosinophils # 0.1 K/mm3 (0.0-0.4); Eosinophils % 1.8 % (0.1-12.0); Hematocrit 46.6 % (42.0-52.0); Hemoglobin 15.6 g/dL (14.1-18.0); Lymphocytes # 1.5 K/mm3 (0.7-4.5); Lymphocytes % 40.2 % (10-50); Mean Corpuscular HGB Conc 33.4 g/dL (31.8-35.4); Mean Corpuscular Hemoglobin 30.4 pg (27.0-31.2); Mean Corpuscular Volume 91.1 fl (80-94); Mean Platelet Volume 9.1 fl (7.4-10.4); Monocytes # 0.2 K/mm3 (0.1-1.0); Monocytes % 6.5 % (1.7-9.3); Neutrophils # 1.8 K/mm3 (1.8-7.8); Neutrophils % 48.5 % (37.0-80.0); Platelet Count 247 K/mm3 (142-424); Red Blood Count 5.12 M/mm3 (4.60-6.20); Red Cell Distribution Width 14.4 % (11.5-17.5); White Blood Count 3.6 K/mm3 (4.8-10.8)
[2021-12-27 12:40] LABS: Chloride 105 mmol/L (98-107); Potassium 4.1 mmoL/L (3.5-5.1); Sodium 139 mmol/L (136-145)
[2021-12-27 12:43] LABS: Alanine Aminotransferase 15 U/L (12-78); Albumin Level 4.2 g/dl (3.5-5.0); Albumin/Globulin Ratio 1.2 (1.1-1.8); Alkaline Phosphatase 87 U/L (38-126); Anion Gap 12.1 mEq/L (5-15); Aspartate Amino Transferase 35 U/L (17-59); Bilirubin,Total 0.7 mg/dl (0.2-1.3); Blood Urea Nitrogen 11 mg/dl (9-20); Calcium 9.2 mg/dl (8.4-10.2); Carbon Dioxide 26 mmol/L (22.0-30.0); Creatinine Clearance Estimated 79 mL/min (50-200); Estimated Glomerular Filt Rate 95 ml/min (>60); GFR (African American) 115 ML/MIN (>60); Globulin 3.6 g/dL (1.3-3.2); Glucose 109 mg/dl (74-100); Total Protein,Serum 7.8 g/dl (6.3-8.2)
[2021-12-27 12:49] LABS: C-Reactive Protein 1.3 mg/L (0-4)
[2021-12-27 12:50] VITALS: BP 133/88; PULSE 81; RESP 16
[2021-12-27 13:25] VITALS: BP 107/68; PULSE 90; RESP 16
== END 2021-12-27 13:35 | disposition home or self-care (01) ==
LOC: INF 11:52
PROVIDERS: PCP Family Medicine; Visit Provider Physician Assistant
DX: K51.90 Ulcerative colitis, unspecified, without complications (principal)
CPT/HCPCS: 80053; 85025; 86140; 96365; 96413; J3380

== ENCOUNTER 2022-02-19 12:00 | Outpatient (CLI) | payer MEDICARE, OTHER, SELFPAY ==
[2022-02-19 12:13] VITALS: BMI 27.3
[2022-02-19 12:35] VITALS: BP 151/96; PULSE 87; RESP 18; O2SAT 99
[2022-02-19 12:45] LABS: Basophils % 0.8 % (0.1-2.0); Eosinophils # 0.1 K/mm3 (0.0-0.4); Eosinophils % 1.5 % (0.1-12.0); Hemoglobin 14.9 g/dL (14.1-18.0); Lymphocytes # 1.7 K/mm3 (0.7-4.5); Lymphocytes % 33.7 % (10-50); Mean Corpuscular HGB Conc 33.9 g/dL (31.8-35.4); Mean Corpuscular Hemoglobin 29.7 pg (27.0-31.2); Mean Corpuscular Volume 87.8 fl (80-94); Mean Platelet Volume 8.5 fl (7.4-10.4); Monocytes # 0.3 K/mm3 (0.1-1.0); Monocytes % 6.5 % (1.7-9.3); Neutrophils # 2.9 K/mm3 (1.8-7.8); Neutrophils % 57.5 % (37.0-80.0); Platelet Count 277 K/mm3 (142-424); Red Blood Count 5.01 M/mm3 (4.60-6.20); Red Cell Distribution Width 13.5 % (11.5-17.5)
[2022-02-19 12:49] LABS: Alanine Aminotransferase 8 U/L (12-78); Albumin Level 3.9 g/dl (3.5-5.0); Albumin/Globulin Ratio 1.1 (1.1-1.8); Alkaline Phosphatase 97 U/L (38-126); Anion Gap 8.1 mEq/L (5-15); Aspartate Amino Transferase 25 U/L (17-59); Bilirubin,Total 0.5 mg/dl (0.2-1.3); Blood Urea Nitrogen 14 mg/dl (9-20); Calcium 8.9 mg/dl (8.4-10.2); Carbon Dioxide 27 mmol/L (22.0-30.0); Chloride 108 mmol/L (98-107); Creatinine Clearance Estimated 79 mL/min (50-200); Estimated Glomerular Filt Rate 95 ml/min (>60); GFR (African American) 115 ML/MIN (>60); Globulin 3.6 g/dL (1.3-3.2); Glucose 99 mg/dl (74-100); Potassium 4.1 mmoL/L (3.5-5.1); Sodium 139 mmol/L (136-145); Total Protein,Serum 7.5 g/dl (6.3-8.2)
[2022-02-19 12:55] LABS: C-Reactive Protein 7.5 mg/L (0-4)
[2022-02-19 13:19] VITALS: BP 175/92; PULSE 88; RESP 18
[2022-02-22 11:16] LABS: QuantiFERON-TB Gold Plus Negative (Negative)
== END 2022-02-19 13:19 | disposition home or self-care (01) ==
LOC: INF 12:00
PROVIDERS: PCP Family Medicine; Visit Provider Physician Assistant
DX: K51.90 Ulcerative colitis, unspecified, without complications (principal)
CPT/HCPCS: 80053; 85025; 86140; 86480; 96365; 96413; J3380

== ENCOUNTER → 2022-02-28 06:20 | Outpatient (CLI) | payer MEDICARE, OTHER, SELFPAY | PROVIDERS: Visit Provider Urology | DX: N40.1 Benign prostatic hyperplasia with lower urinary tract symptoms (principal); R39.11 Hesitancy of micturition; B96.29 Other Escherichia coli [E. coli] as the cause of diseases classified elsewhere | CPT/HCPCS: 87086; 87088; 87186 ==

== ENCOUNTER → 2022-03-20 13:50 | Outpatient (CLI) | payer MEDICARE, OTHER, SELFPAY | PROVIDERS: Visit Provider Urology | DX: N40.1 Benign prostatic hyperplasia with lower urinary tract symptoms (principal); R39.11 Hesitancy of micturition; B96.29 Other Escherichia coli [E. coli] as the cause of diseases classified elsewhere | CPT/HCPCS: 87086; 87088; 87186 ==

== ENCOUNTER 2022-03-31 19:08 | Emergency (ER) | payer MEDICARE, OTHER, SELFPAY ==
[2022-03-31 19:40] VITALS: BP 129/97; PULSE 112; RESP 20; TEMP 37.5; O2SAT 98; BMI 27.6
[2022-03-31 19:54] VITALS: BP 129/97; PULSE 112; RESP 20; TEMP 37.5; O2SAT 98
--- NOTE | 2022-03-31 19:59 | EXP.UTC ---
Discharge Plan Disposition Patient Disposition: Home, Self-Care Condition: Good Prescriptions Prescriptions: No Action acetaminophen 325 mg tablet 325 mg PO QID PRN (Reason: pain) apixaban 2.5 mg tablet 2.5 mg PO DAILY levetiracetam [Keppra] 500 mg tablet See Rx Instructions PO BID Rx Instructions: PO twice a day; 500 mg po qam and 1000 mg po qhs cholecalciferol (vitamin D3) 125 mcg (5,000 unit) tablet 125 mcg PO DAILY pimavanserin 34 mg capsule 34 mg PO DAILY MDD 34 mg Qty: 90 3RF Rx Instructions: 1 tab po daily at 4:00 PM. Take with food carbidopa-levodopa 25-100 mg tablet 2 tab PO QID Qty: 720 3RF furosemide 40 mg tablet 40 mg PO DAILY baclofen 10 mg tablet 10 mg PO TID Qty: 90 3RF Rx Instructions: Slow titration as directed on calendar up to 10 mg p.o. 3 times daily cefdinir 300 mg capsule 300 mg PO BID 7 Days Qty: 14 0RF cefdinir 300 mg capsule 300 mg PO BID Qty: 14 0RF fluoxetine 20 MG capsule 20 mg PO DAILY amlodipine 5 MG tablet 5 mg PO DAILY Lactobac comb [id number] 1 EACH capsule 1 each PO DAILY polyethylene glycol 3350 17 GM powder in packet 17 gm PO DAILY bisacodyl 10 MG suppository 10 mg RC DAILYP PRN (Reason: Constipation) Referrals Follow up/Referrals: Rosa Jones MD [Primary Care Provider] - See instructions Clinical Impressions Clinical Impression: Upper respiratory tract infection Instructions Patient Instructions: DI for Viral Upper Respiratory Infection -- Adult Discharge ED Provider: Joslyn Brand [facility] General Stated complaint: covid test cough parminder Mode of Arrival: Ambulatory Source of Information: Patient Limitations: No Limitations Time Seen by Provider: 03/31/22 19:50 Description of Symptoms (Recalled from Triage Doc. by RN): PATIENT REQUESTING COVID TEST. C/O COUGH TODAY HEENT Symptoms (Recalled from RN notes): No Resp Symptoms (Recalled from RN notes): Yes Skin Symptoms (Recalled from RN notes): No MS Symptoms (Recalled from RN notes): No Functional Status (Recalled from RN notes): WNL History of Present Illness Provider Complaint: Reports that a fellow [employer] member had Covid last Friday and her was at [employer]. states that he has been coughing this weekend and usually has a sinus drainage. The request Covid testing. Related Data Home Medications Medication Instructions Recorded Confirmed Lactobacillus comb 1 each PO DAILY Supplement 01/11/20 02/21/22 no.[id number] 300 million cell-250 mg capsule bisacodyl 10 mg rectal suppository 10 mg TN DAILYP PRN Constipation 01/11/20 02/21/22 polyethylene glycol 3350 17 gram 17 gm PO DAILY bowels 01/11/20 02/21/22 oral powder packet acetaminophen 325 mg tablet 325 mg PO QID PRN pain 02/21/20 02/21/22 fluoxetine 20 mg capsule 20 mg PO DAILY Depression 05/09/20 02/21/22 apixaban 2.5 mg tablet 2.5 mg PO DAILY Blood thinner 08/22/20 02/21/22 amlodipine 5 mg tablet 5 mg PO DAILY blood pressure 01/09/21 02/21/22 cholecalciferol (vitamin D3) 125 125 mcg PO DAILY Supplement 09/13/21 02/21/22 mcg (5,000 unit) tablet levetiracetam 500 mg tablet See Rx Instructions PO BID unknown 12/25/21 02/21/22 (Keppra) furosemide 40 mg tablet 40 mg PO DAILY 02/21/22 02/21/22 Previous Rx's Medication Instructions Recorded carbidopa 25 mg-levodopa 100 mg 2 tab PO QID PARKINSONS DISEASE 11/13/21 tablet #720 tabs pimavanserin 34 mg capsule 34 mg PO DAILY parkinson's dx #90 11/13/21 caps baclofen 10 mg tablet 10 mg PO TID Spasticity #90 tabs 02/21/22 cefdinir 300 mg capsule 300 mg PO BID 7 days #14 caps 03/01/22 cefdinir 300 mg capsule 300 mg PO BID #14 caps 03/21/22 Allergies Allergy/AdvReac Type Severity Reaction Status Date / Time No Known Allergies Allergy Verified 02/21/22 13:30 Worker's Comp Is this a Worker's Comp case?: No PFSH PFSH Social History Smoking Status: N
== END 2022-03-31 20:07 | disposition home or self-care (01) ==
PROVIDERS: Emergency Provider Nurse Practitioner Family; PCP Family Medicine
DX: U07.1 COVID-19 (principal)
CPT/HCPCS: 99212; C9803; G0463; U0003; U0005

== ENCOUNTER 2022-04-16 11:41 | Outpatient (CLI) | payer MEDICARE, OTHER, SELFPAY ==
[2022-04-16 11:53] VITALS: BMI 27.3
[2022-04-16 12:12] LABS: Basophils # 0.1 K/mm3 (0-0.2); Basophils % 1.2 % (0.1-2.0); Eosinophils # 0.1 K/mm3 (0.0-0.4); Eosinophils % 1.5 % (0.1-12.0); Lymphocytes # 1.6 K/mm3 (0.7-4.5); Lymphocytes % 36.8 % (10-50); Mean Corpuscular HGB Conc 31.9 g/dL (31.8-35.4); Mean Corpuscular Hemoglobin 29.3 pg (27.0-31.2); Mean Corpuscular Volume 91.7 fl (80-94); Mean Platelet Volume 9.1 fl (7.4-10.4); Monocytes # 0.4 K/mm3 (0.1-1.0); Monocytes % 9.8 % (1.7-9.3); Neutrophils # 2.2 K/mm3 (1.8-7.8); Neutrophils % 50.8 % (37.0-80.0); Platelet Count 271 K/mm3 (142-424); Red Blood Count 4.79 M/mm3 (4.60-6.20); Red Cell Distribution Width 13.8 % (11.5-17.5); White Blood Count 4.3 K/mm3 (4.8-10.8)
[2022-04-16 12:19] LABS: Chloride 103 mmol/L (98-107)
[2022-04-16 12:20] LABS: Sodium 143 mmol/L (136-145)
[2022-04-16 12:22] LABS: Alanine Aminotransferase 8 U/L (12-78); Alkaline Phosphatase 98 U/L (38-126); Aspartate Amino Transferase 23 U/L (17-59); Bilirubin,Total 0.3 mg/dl (0.2-1.3); Blood Urea Nitrogen 12 mg/dl (9-20); Creatinine Clearance Estimated 79 mL/min (50-200); Estimated Glomerular Filt Rate 95 ml/min (>60); GFR (African American) 115 ML/MIN (>60)
[2022-04-16 12:23] LABS: Albumin/Globulin Ratio 1.2 (1.1-1.8); Calcium 8.6 mg/dl (8.4-10.2); Carbon Dioxide 30 mmol/L (22.0-30.0); Globulin 3.4 g/dL (1.3-3.2); Glucose 99 mg/dl (74-100); Total Protein,Serum 7.4 g/dl (6.3-8.2)
[2022-04-16 12:28] LABS: C-Reactive Protein 1.5 mg/L (0-4)
[2022-04-16 12:39] VITALS: BP 138/69; PULSE 72; RESP 18; TEMP 36.3; O2SAT 98
[2022-04-16 13:25] VITALS: BP 140/72; PULSE 78; RESP 18; TEMP 36.6; O2SAT 99
== END 2022-04-16 13:25 | disposition home or self-care (01) ==
LOC: INF 11:42
PROVIDERS: PCP Family Medicine; Visit Provider Physician Assistant
DX: K51.90 Ulcerative colitis, unspecified, without complications (principal)
CPT/HCPCS: 80053; 85025; 86140; 96413; J3380

== ENCOUNTER 2022-06-11 10:59 | Outpatient (CLI) | payer MEDICARE, OTHER, SELFPAY ==
[2022-06-11 11:16] VITALS: BMI 27.3
[2022-06-11 11:32] LABS: Basophils % 0.7 % (0.1-2.0); Eosinophils # 0.1 K/mm3 (0.0-0.4); Eosinophils % 1.9 % (0.1-12.0); Hematocrit 45.9 % (42.0-52.0); Hemoglobin 14.9 g/dL (14.1-18.0); Lymphocytes # 1.7 K/mm3 (0.7-4.5); Lymphocytes % 32.2 % (10-50); Mean Corpuscular HGB Conc 32.4 g/dL (31.8-35.4); Mean Corpuscular Hemoglobin 29.5 pg (27.0-31.2); Mean Corpuscular Volume 91.1 fl (80-94); Monocytes # 0.4 K/mm3 (0.1-1.0); Monocytes % 7.1 % (1.7-9.3); Platelet Count 265 K/mm3 (142-424); Red Blood Count 5.03 M/mm3 (4.60-6.20); Red Cell Distribution Width 13.6 % (11.5-17.5); White Blood Count 5.2 K/mm3 (4.8-10.8)
[2022-06-11 11:35] LABS: Chloride 101 mmol/L (98-107); Sodium 141 mmol/L (136-145)
[2022-06-11 11:37] LABS: Alanine Aminotransferase 9 U/L (12-78); Aspartate Amino Transferase 23 U/L (17-59); Blood Urea Nitrogen 17 mg/dl (9-20); Creatinine Clearance Estimated 79 mL/min (50-200); Estimated Glomerular Filt Rate 83 ml/min (>60); GFR (African American) 100 ML/MIN (>60)
[2022-06-11 11:38] LABS: Albumin Level 4.1 g/dl (3.5-5.0); Albumin/Globulin Ratio 1.2 (1.1-1.8); Alkaline Phosphatase 92 U/L (38-126); Bilirubin,Total 0.4 mg/dl (0.2-1.3); Calcium 9.2 mg/dl (8.4-10.2); Carbon Dioxide 31 mmol/L (22.0-30.0); Globulin 3.4 g/dL (1.3-3.2); Glucose 81 mg/dl (74-100); Total Protein,Serum 7.5 g/dl (6.3-8.2)
[2022-06-11 12:18] VITALS: BP 103/71; PULSE 101; RESP 18
[2022-06-11 12:28] VITALS: BP 138/87; PULSE 95; RESP 18; O2SAT 96
== END 2022-06-11 12:18 | disposition home or self-care (01) ==
LOC: INF 11:01
PROVIDERS: PCP Family Medicine; Visit Provider Physician Assistant
DX: K51.90 Ulcerative colitis, unspecified, without complications (principal)
CPT/HCPCS: 80053; 85025; 86140; 96413; J3380

== ENCOUNTER 2022-08-06 10:52 | Outpatient (CLI) | payer MEDICARE, OTHER, SELFPAY ==
[2022-08-06 10:57] VITALS: BMI 27.3
[2022-08-06 11:25] VITALS: BP 126/68; PULSE 65; RESP 18; TEMP 36.1; O2SAT 96
[2022-08-06 11:27] LABS: Basophils % 0.9 % (0.1-2.0); Eosinophils # 0.1 K/mm3 (0.0-0.4); Eosinophils % 3.3 % (0.1-12.0); Hematocrit 45.9 % (42.0-52.0); Hemoglobin 14.6 g/dL (14.1-18.0); Lymphocytes # 1.7 K/mm3 (0.7-4.5); Lymphocytes % 42.2 % (10-50); Mean Corpuscular HGB Conc 31.9 g/dL (31.8-35.4); Mean Corpuscular Hemoglobin 29.3 pg (27.0-31.2); Mean Corpuscular Volume 91.9 fl (80-94); Mean Platelet Volume 8.9 fl (7.4-10.4); Monocytes # 0.3 K/mm3 (0.1-1.0); Monocytes % 6.2 % (1.7-9.3); Neutrophils % 47.4 % (37.0-80.0); Platelet Count 276 K/mm3 (142-424); Red Blood Count 4.99 M/mm3 (4.60-6.20); Red Cell Distribution Width 13.9 % (11.5-17.5); White Blood Count 4.1 K/mm3 (4.8-10.8)
[2022-08-06 12:08] LABS: Alanine Aminotransferase 14 U/L (12-78); Albumin Level 4.2 g/dl (3.5-5.0); Albumin/Globulin Ratio 1.2 (1.1-1.8); Alkaline Phosphatase 83 U/L (38-126); Aspartate Amino Transferase 41 U/L (17-59); Bilirubin,Total 0.6 mg/dl (0.2-1.3); Blood Urea Nitrogen 14 mg/dl (9-20); Calcium 8.6 mg/dl (8.4-10.2); Carbon Dioxide 27 mmol/L (22.0-30.0); Chloride 107 mmol/L (98-107); Creatinine Clearance Estimated 72 mL/min (50-200); Estimated Glomerular Filt Rate 66 ml/min (>60); GFR (African American) 80 ML/MIN (>60); Globulin 3.5 g/dL (1.3-3.2); Glucose 139 mg/dl (74-100); Sodium 142 mmol/L (136-145); Total Protein,Serum 7.7 g/dl (6.3-8.2)
[2022-08-06 12:14] LABS: C-Reactive Protein 1.2 mg/L (0-4)
[2022-08-06 12:15] VITALS: BP 124/67; PULSE 67; RESP 18; O2SAT 98
== END 2022-08-06 12:18 | disposition home or self-care (01) ==
LOC: INF 10:53
PROVIDERS: PCP Family Medicine; Visit Provider Physician Assistant
DX: K51.90 Ulcerative colitis, unspecified, without complications (principal)
CPT/HCPCS: 80053; 85025; 86140; 96413; J3380

== ENCOUNTER 2022-10-01 11:09 | Outpatient (CLI) | payer MEDICARE, OTHER, SELFPAY ==
[2022-10-01 11:11] VITALS: BMI 27.3
[2022-10-01 11:29] LABS: Basophils # 0.1 K/mm3 (0-0.2); Basophils % 1.3 % (0.1-2.0); Eosinophils # 0.1 K/mm3 (0.0-0.4); Eosinophils % 2.9 % (0.1-12.0); Hemoglobin 14.8 g/dL (14.1-18.0); Lymphocytes # 1.6 K/mm3 (0.7-4.5); Lymphocytes % 43.1 % (10-50); Mean Corpuscular HGB Conc 32.9 g/dL (31.8-35.4); Mean Corpuscular Hemoglobin 29.7 pg (27.0-31.2); Mean Corpuscular Volume 90.4 fl (80-94); Monocytes # 0.2 K/mm3 (0.1-1.0); Monocytes % 6.1 % (1.7-9.3); Neutrophils # 1.7 K/mm3 (1.8-7.8); Neutrophils % 46.7 % (37.0-80.0); Platelet Count 252 K/mm3 (142-424); Red Blood Count 4.97 M/mm3 (4.60-6.20); Red Cell Distribution Width 14.1 % (11.5-17.5); White Blood Count 3.6 K/mm3 (4.8-10.8)
[2022-10-01 11:30] VITALS: BP 120/79; PULSE 91; RESP 18; TEMP 36.3; O2SAT 97
[2022-10-01 11:33] LABS: Chloride 106 mmol/L (98-107); Sodium 139 mmol/L (136-145)
[2022-10-01 11:36] LABS: Alanine Aminotransferase 15 U/L (12-78); Albumin Level 4.1 g/dl (3.5-5.0); Albumin/Globulin Ratio 1.2 (1.1-1.8); Alkaline Phosphatase 75 U/L (38-126); Aspartate Amino Transferase 24 U/L (17-59); Bilirubin,Total 0.6 mg/dl (0.2-1.3); Blood Urea Nitrogen 13 mg/dl (9-20); Carbon Dioxide 26 mmol/L (22.0-30.0); Creatinine Clearance Estimated 79 mL/min (50-200); Estimated Glomerular Filt Rate 73 ml/min (>60); GFR (African American) 89 ML/MIN (>60); Globulin 3.3 g/dL (1.3-3.2); Total Protein,Serum 7.4 g/dl (6.3-8.2)
[2022-10-01 11:37] LABS: Calcium 8.5 mg/dl (8.4-10.2); Glucose 96 mg/dl (74-100)
[2022-10-01 11:42] LABS: C-Reactive Protein 0.8 mg/L (0-4)
[2022-10-01 12:21] VITALS: BP 141/85; PULSE 86; RESP 18; O2SAT 99
== END 2022-10-01 12:21 | disposition home or self-care (01) ==
LOC: INF 11:10
PROVIDERS: PCP Family Medicine; Visit Provider Physician Assistant
DX: K51.90 Ulcerative colitis, unspecified, without complications (principal)
CPT/HCPCS: 80053; 85025; 86140; 96413; J3380

== ENCOUNTER 2022-11-26 10:49 | Outpatient (CLI) | payer MEDICARE, OTHER, SELFPAY ==
[2022-11-26 10:56] VITALS: BMI 27.3
[2022-11-26 11:29] LABS: Basophils % 0.9 % (0.1-2.0); Eosinophils # 0.1 K/mm3 (0.0-0.4); Eosinophils % 1.8 % (0.1-12.0); Hemoglobin 14.8 g/dL (14.1-18.0); Lymphocytes # 1.8 K/mm3 (0.7-4.5); Lymphocytes % 43.2 % (10-50); Mean Corpuscular HGB Conc 32.1 g/dL (31.8-35.4); Mean Corpuscular Hemoglobin 28.9 pg (27.0-31.2); Mean Corpuscular Volume 89.9 fl (80-94); Mean Platelet Volume 8.8 fl (7.4-10.4); Monocytes # 0.4 K/mm3 (0.1-1.0); Monocytes % 8.6 % (1.7-9.3); Neutrophils # 1.8 K/mm3 (1.8-7.8); Neutrophils % 45.5 % (37.0-80.0); Platelet Count 243 K/mm3 (142-424); Red Blood Count 5.12 M/mm3 (4.60-6.20); Red Cell Distribution Width 13.8 % (11.5-17.5); White Blood Count 4.1 K/mm3 (4.8-10.8)
[2022-11-26 11:31] LABS: Chloride 100 mmol/L (98-107); Potassium 4.1 mmoL/L (3.5-5.1); Sodium 140 mmol/L (136-145)
[2022-11-26 11:34] LABS: Alanine Aminotransferase 16 U/L (12-78); Albumin/Globulin Ratio 1.1 (1.1-1.8); Alkaline Phosphatase 76 U/L (38-126); Anion Gap 16.1 mEq/L (5-15); Aspartate Amino Transferase 30 U/L (17-59); Bilirubin,Total 0.6 mg/dl (0.2-1.3); Blood Urea Nitrogen 14 mg/dl (9-20); Calcium 8.9 mg/dl (8.4-10.2); Carbon Dioxide 28 mmol/L (22.0-30.0); Creatinine Clearance Estimated 78 mL/min (50-200); Estimated Glomerular Filt Rate 73 ml/min (>60); GFR (African American) 89 ML/MIN (>60); Globulin 3.6 g/dL (1.3-3.2); Glucose 83 mg/dl (74-100); Total Protein,Serum 7.6 g/dl (6.3-8.2)
[2022-11-26 11:39] VITALS: BP 112/77; PULSE 88; RESP 18; TEMP 36.8; O2SAT 97
[2022-11-26 12:07] LABS: C-Reactive Protein 1.1 mg/L (0-4)
[2022-11-26 12:20] VITALS: BP 98/63; PULSE 78; RESP 18; O2SAT 97
== END 2022-11-26 12:20 | disposition home or self-care (01) ==
LOC: INF 10:50
PROVIDERS: PCP Family Medicine; Visit Provider Physician Assistant
DX: K51.90 Ulcerative colitis, unspecified, without complications (principal)
CPT/HCPCS: 80053; 85025; 86140; 96413; J3380

== ENCOUNTER 2023-01-24 11:18 | Outpatient (CLI) | payer MEDICARE, OTHER, SELFPAY ==
[2023-01-24 11:25] VITALS: BMI 27.3
[2023-01-24 11:49] LABS: Basophils % 0.4 % (0.1-2.0); Eosinophils # 0.1 K/mm3 (0.0-0.4); Hematocrit 43.7 % (42.0-52.0); Hemoglobin 13.7 g/dL (14.1-18.0); Lymphocytes # 1.6 K/mm3 (0.7-4.5); Lymphocytes % 36.9 % (10-50); Mean Corpuscular HGB Conc 31.3 g/dL (31.8-35.4); Mean Corpuscular Volume 89.6 fl (80-94); Mean Platelet Volume 8.8 fl (7.4-10.4); Monocytes # 0.4 K/mm3 (0.1-1.0); Monocytes % 8.5 % (1.7-9.3); Neutrophils # 2.1 K/mm3 (1.8-7.8); Neutrophils % 51.1 % (37.0-80.0); Platelet Count 268 K/mm3 (142-424); Red Blood Count 4.88 M/mm3 (4.60-6.20); Red Cell Distribution Width 13.7 % (11.5-17.5); White Blood Count 4.2 K/mm3 (4.8-10.8)
[2023-01-24 12:00] LABS: Chloride 106 mmol/L (98-107)
[2023-01-24 12:01] LABS: Potassium 3.9 mmoL/L (3.5-5.1); Sodium 140 mmol/L (136-145)
[2023-01-24 12:03] LABS: Alanine Aminotransferase 17 U/L (12-78); Aspartate Amino Transferase 32 U/L (17-59); Blood Urea Nitrogen 13 mg/dl (9-20); Creatinine Clearance Estimated 78 mL/min (50-200); Estimated Glomerular Filt Rate 95 ml/min (>60); GFR (African American) 115 ML/MIN (>60)
[2023-01-24 12:04] LABS: Albumin Level 3.8 g/dl (3.5-5.0); Albumin/Globulin Ratio 1.1 (1.1-1.8); Alkaline Phosphatase 75 U/L (38-126); Anion Gap 12.9 mEq/L (5-15); Bilirubin,Total 0.4 mg/dl (0.2-1.3); Calcium 8.5 mg/dl (8.4-10.2); Carbon Dioxide 25 mmol/L (22.0-30.0); Globulin 3.4 g/dL (1.3-3.2); Glucose 116 mg/dl (74-100); Total Protein,Serum 7.2 g/dl (6.3-8.2)
[2023-01-24 12:05] VITALS: BP 104/74; PULSE 83; RESP 18; O2SAT 99
[2023-01-24 12:09] LABS: C-Reactive Protein 3.4 mg/L (0-4)
[2023-01-24 12:45] VITALS: BP 110/71; PULSE 85; RESP 18; O2SAT 97
== END 2023-01-24 12:45 | disposition home or self-care (01) ==
LOC: INF 11:19
PROVIDERS: PCP Family Medicine; Visit Provider Physician Assistant
DX: K51.90 Ulcerative colitis, unspecified, without complications (principal)
CPT/HCPCS: 80053; 85025; 86140; 96413; J3380

== ENCOUNTER 2023-03-19 11:07 | Outpatient (CLI) | payer MEDICARE, OTHER, SELFPAY ==
[2023-03-19 11:17] VITALS: BMI 28.0
[2023-03-19 11:43] VITALS: BP 134/89; PULSE 84; RESP 16; TEMP 36.5; O2SAT 99
[2023-03-19 11:52] LABS: Basophils % 0.7 % (0.1-2.0); Eosinophils # 0.1 K/mm3 (0.0-0.4); Eosinophils % 2.1 % (0.1-12.0); Lymphocytes # 1.6 K/mm3 (0.7-4.5); Lymphocytes % 45.9 % (10-50); Mean Corpuscular HGB Conc 31.9 g/dL (31.8-35.4); Mean Corpuscular Hemoglobin 28.7 pg (27.0-31.2); Mean Corpuscular Volume 90.2 fl (80-94); Mean Platelet Volume 9.1 fl (7.4-10.4); Monocytes # 0.3 K/mm3 (0.1-1.0); Monocytes % 8.3 % (1.7-9.3); Neutrophils # 1.5 K/mm3 (1.8-7.8); Platelet Count 219 K/mm3 (142-424); Red Blood Count 5.21 M/mm3 (4.60-6.20); Red Cell Distribution Width 14.1 % (11.5-17.5); White Blood Count 3.4 K/mm3 (4.8-10.8)
[2023-03-19 12:11] LABS: Chloride 107 mmol/L (98-107); Potassium 3.9 mmoL/L (3.5-5.1); Sodium 143 mmol/L (136-145)
[2023-03-19 12:14] LABS: Alanine Aminotransferase 14 U/L (12-78); Albumin Level 3.8 g/dl (3.5-5.0); Alkaline Phosphatase 90 U/L (38-126); Anion Gap 12.9 mEq/L (5-15); Aspartate Amino Transferase 34 U/L (17-59); Bilirubin,Total 0.6 mg/dl (0.2-1.3); Blood Urea Nitrogen 15 mg/dl (9-20); Calcium 9.2 mg/dl (8.4-10.2); Carbon Dioxide 27 mmol/L (22.0-30.0); Creatinine Clearance Estimated 80 mL/min (50-200); Estimated Glomerular Filt Rate 73 ml/min (>60); GFR (African American) 89 ML/MIN (>60); Globulin 3.7 g/dL (1.3-3.2); Glucose 92 mg/dl (74-100); Total Protein,Serum 7.5 g/dl (6.3-8.2)
[2023-03-19 12:30] VITALS: BP 157/89; PULSE 83; RESP 18; O2SAT 99
[2023-03-19 13:33] LABS: C-Reactive Protein 1.3 mg/L (0-4)
[2023-03-22 20:02] LABS: QuantiFERON-TB Gold Plus Negative (Negative)
== END 2023-03-19 13:00 | disposition home or self-care (01) ==
LOC: INF 11:08
PROVIDERS: PCP Family Medicine; Visit Provider Physician Assistant
DX: Z79.899 Other long term (current) drug therapy (principal); K51.90 Ulcerative colitis, unspecified, without complications
CPT/HCPCS: 80053; 85025; 86140; 86480; 96413; J3380

== ENCOUNTER 2023-05-06 13:45 | Outpatient (CLI) | payer MEDICARE, OTHER, SELFPAY ==
--- OUTSIDE RECORDS SUMMARY | 2023-05-06 13:48 | XMS_ITS | Summary of Care ---
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 Name Role Phone Faustino Jones Primary Care Physician Unavailab le Encounter 11/10/19 - 12/01/19 [facility] [address] [place], [place] [id number] Encounter Diagnosis Back pain(Discharge Diagnosis) - 11/09/19 Discharge Disposition: Home with Home Health Care Attending Physician: Anne-Marie Husain DO Admitting Physician: Anne-Marie Husain DO Allergies, Adverse Reactions, Alerts No Known Medication Allergies Substance Reaction Severity Status No Known Allergies Active Assessment and Plan Extracted from: Title:Inpatient Clinical Summary Author:Joslyn Ackerman RN Date:12/01/19 [facility] [address] [facility] [place] [id number] Clinical Discharge Summary PERSON INFORMATION Name EILEEN MAYEN JR [id number] Sex Male Age 69 Years Race Black or Admitted 11/10/2019 14:35:00 Discharged Address: [address] [place] [address] PROVIDER INFORMATION Attending Physician: Anne-Marie Husain DO Consulting Physician: Moshe Gonsales MD DIAGNOSIS 3:Back pain Current Vitals Temp Oral: 98.3 DegF Temp Tympanic: 97.6 DegF Temp Axillary: Temp Rectal: SPO2 : 99 % Respiratory Rate: 17 br/min Peripheral Pulse Rate: 70 bpm Apical Heart Rate: Blood Pressure: 134 mmHg / 87 mmHg Discharge Orders ??Order Name Order Details : Electronically Signed By: Discharge Followup 11/10/19 15:33:00 EDT, PCP days of discharge from Rik Guthrie MD Discharge Followup 11/10/19 15:33:00 EDT, Dr. Balderas in 4-6 weeks from discharge from Rik Guthrie MD Discharge Followup 11/10/19 17:48:00 EDT, Dr Barnett for FNA of thyroid lesion/goiter. Rik Joseph MD Discharge Followup 11/10/19 15:33:00 EDT, Urology for neurogenic bladder Rik Joseph MD Discharge Followup 11/10/19 15:33:00 EDT, [facility] Opal DEMPSEY, J
--- OUTSIDE RECORDS SUMMARY | 2023-05-06 13:48 | XMS_ITS | Clinical Summary ---
Author Name Unknown Address [address] [place] [address] Phone Organization [facility] Address [address] [place] [address] Phone Care Team Providers Care Equity Research Associate Name Role Phone Alyssa Otero MD [phone] [ ] Conditions or Problems Problem Name Problem Code Onset Date Status Entry Date Provider Comment Standard Description Annotate Decubitus ulcer 585296420 (SNOMED CT) 12/14 Active 12/14 Janae York Pressure ulcer Candidiasis, skin 20698941 (SNOMED CT) 12/14 Active 12/14 Janae York Candidiasis of skin Diarrhea, antibiotic associated 507402881 (SNOMED CT) 12/14 Active 12/14 Janae York Antibiotic-ass ociated diarrhea Abscess, epidural G06.1 (ICD-10-CM) 12/13 Active 12/13 Joslyn L 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
[2023-05-06 13:50] VITALS: BMI 28.0
[2023-05-06 14:11] VITALS: BP 130/84; PULSE 91; RESP 20; TEMP 36.7; O2SAT 99
[2023-05-06 14:14] LABS: Basophils % 0.8 % (0.1-2.0); Eosinophils # 0.1 K/mm3 (0.0-0.4); Eosinophils % 1.8 % (0.1-12.0); Hematocrit 45.2 % (42.0-52.0); Hemoglobin 15.4 g/dL (14.1-18.0); Lymphocytes # 1.6 K/mm3 (0.7-4.5); Lymphocytes % 37.9 % (10-50); Mean Corpuscular Hemoglobin 29.9 pg (27.0-31.2); Mean Platelet Volume 8.6 fl (7.4-10.4); Monocytes # 0.3 K/mm3 (0.1-1.0); Monocytes % 5.8 % (1.7-9.3); Neutrophils # 2.3 K/mm3 (1.8-7.8); Neutrophils % 53.7 % (37.0-80.0); Platelet Count 300 K/mm3 (142-424); Red Blood Count 5.14 M/mm3 (4.60-6.20); White Blood Count 4.3 K/mm3 (4.8-10.8)
[2023-05-06 14:15] LABS: Chloride 106 mmol/L (98-107)
[2023-05-06 14:16] LABS: Potassium 3.9 mmoL/L (3.5-5.1); Sodium 141 mmol/L (136-145)
[2023-05-06 14:18] LABS: Alanine Aminotransferase 15 U/L (12-78); Alkaline Phosphatase 76 U/L (38-126); Anion Gap 12.9 mEq/L (5-15); Aspartate Amino Transferase 21 U/L (17-59); Bilirubin,Total 0.4 mg/dl (0.2-1.3); Blood Urea Nitrogen 16 mg/dl (9-20); Carbon Dioxide 26 mmol/L (22.0-30.0); Creatinine Clearance Estimated 80 mL/min (50-200); Estimated Glomerular Filt Rate 73 ml/min (>60); GFR (African American) 89 ML/MIN (>60)
[2023-05-06 14:19] LABS: Albumin/Globulin Ratio 0.9 (1.1-1.8); Calcium 8.7 mg/dl (8.4-10.2); Globulin 4.3 g/dL (1.3-3.2); Glucose 110 mg/dl (74-100); Total Protein,Serum 8.3 g/dl (6.3-8.2)
[2023-05-06 15:00] VITALS: BP 124/79; PULSE 78; RESP 20; O2SAT 99
[2023-05-08 09:16] LABS: C-Reactive Protein 4.4 mg/L (0-4)
== END 2023-05-06 15:00 | disposition home or self-care (01) ==
LOC: INF 13:46
PROVIDERS: PCP Family Medicine; Visit Provider Physician Assistant
DX: K51.90 Ulcerative colitis, unspecified, without complications (principal)
CPT/HCPCS: 80053; 85025; 86140; 96413; J3380

== ENCOUNTER 2023-07-01 11:07 | Outpatient (CLI) | payer MEDICARE, OTHER, SELFPAY ==
[2023-07-01 11:17] VITALS: BMI 28.0
[2023-07-01 11:40] VITALS: BP 138/63; PULSE 76; RESP 18; TEMP 36.7; O2SAT 98
[2023-07-01 11:41] LABS: Basophils % 0.6 % (0.1-2.0); Eosinophils # 0.1 K/mm3 (0.0-0.4); Eosinophils % 2.2 % (0.1-12.0); Hematocrit 41.8 % (42.0-52.0); Hemoglobin 14.4 g/dL (14.1-18.0); Lymphocytes # 1.2 K/mm3 (0.7-4.5); Lymphocytes % 35.8 % (10-50); Mean Corpuscular HGB Conc 34.4 g/dL (31.8-35.4); Mean Corpuscular Hemoglobin 30.3 pg (27.0-31.2); Monocytes # 0.2 K/mm3 (0.1-1.0); Monocytes % 6.4 % (1.7-9.3); Neutrophils # 1.9 K/mm3 (1.8-7.8); Neutrophils % 54.9 % (37.0-80.0); Platelet Count 189 K/mm3 (142-424); Red Blood Count 4.74 M/mm3 (4.60-6.20); Red Cell Distribution Width 14.3 % (11.5-17.5); White Blood Count 3.4 K/mm3 (4.8-10.8)
[2023-07-01 11:46] LABS: Alanine Aminotransferase 12 U/L (12-78); Albumin Level 3.7 g/dl (3.5-5.0); Albumin/Globulin Ratio 1.1 (1.1-1.8); Alkaline Phosphatase 69 U/L (38-126); Aspartate Amino Transferase 29 U/L (17-59); Bilirubin,Total 0.7 mg/dl (0.2-1.3); Blood Urea Nitrogen 11 mg/dl (9-20); Calcium 8.2 mg/dl (8.4-10.2); Carbon Dioxide 26 mmol/L (22.0-30.0); Chloride 106 mmol/L (98-107); Creatinine Clearance Estimated 80 mL/min (50-200); Estimated Glomerular Filt Rate 83 ml/min (>60); GFR (African American) 100 ML/MIN (>60); Globulin 3.4 g/dL (1.3-3.2); Glucose 109 mg/dl (74-100); Sodium 138 mmol/L (136-145); Total Protein,Serum 7.1 g/dl (6.3-8.2)
[2023-07-01 11:52] LABS: C-Reactive Protein 3.2 mg/L (0-4)
[2023-07-01 11:59] LABS: Anion Gap 9.8 mEq/L (5-15); Potassium 3.8 mmoL/L (3.5-5.1)
[2023-07-01 12:24] VITALS: BP 142/86; PULSE 78; RESP 18; O2SAT 99
== END 2023-07-01 12:24 | disposition home or self-care (01) ==
LOC: INF 11:08
PROVIDERS: PCP Family Medicine; Visit Provider Physician Assistant
DX: K51.90 Ulcerative colitis, unspecified, without complications (principal)
CPT/HCPCS: 80053; 85025; 86140; 96413; J3380

== ENCOUNTER 2023-08-27 11:09 | Outpatient (CLI) | payer MEDICARE, OTHER, SELFPAY ==
[2023-08-27 11:19] VITALS: BP 122/73; PULSE 84; RESP 18; TEMP 36.5; BMI 28.0
[2023-08-27 11:36] LABS: Basophils # 0.1 K/mm3 (0-0.2); Basophils % 1.3 % (0.1-2.0); Eosinophils # 0.1 K/mm3 (0.0-0.4); Eosinophils % 1.9 % (0.1-12.0); Hematocrit 46.3 % (42.0-52.0); Hemoglobin 15.6 g/dL (14.1-18.0); Lymphocytes # 1.6 K/mm3 (0.7-4.5); Lymphocytes % 47.4 % (10-50); Mean Corpuscular HGB Conc 33.6 g/dL (31.8-35.4); Mean Corpuscular Hemoglobin 30.1 pg (27.0-31.2); Mean Corpuscular Volume 89.5 fl (80-94); Mean Platelet Volume 9.7 fl (7.4-10.4); Monocytes # 0.3 K/mm3 (0.1-1.0); Monocytes % 7.4 % (1.7-9.3); Neutrophils # 1.5 K/mm3 (1.8-7.8); Platelet Count 211 K/mm3 (142-424); Red Blood Count 5.18 M/mm3 (4.60-6.20); Red Cell Distribution Width 14.3 % (11.5-17.5); White Blood Count 3.5 K/mm3 (4.8-10.8)
[2023-08-27] MEDS: VEDOLIZUMAB 300 MG in 0.9 % SODIUM CHLORIDE 250 ML 500 MG IV (11:39)
[2023-08-27] MEDS: SODIUM CHLORIDE 0.9% 50ML BAG 50 ML IV (11:39)
[2023-08-27 12:01] LABS: Alanine Aminotransferase 12 U/L (12-78); Albumin/Globulin Ratio 1.2 (1.1-1.8); Alkaline Phosphatase 81 U/L (38-126); Anion Gap 10.9 mEq/L (5-15); Aspartate Amino Transferase 32 U/L (17-59); Bilirubin,Total 0.6 mg/dl (0.2-1.3); Blood Urea Nitrogen 12 mg/dl (9-20); Carbon Dioxide 28 mmol/L (22.0-30.0); Chloride 105 mmol/L (98-107); Creatinine Clearance Estimated 80 mL/min (50-200); Estimated Glomerular Filt Rate 73 ml/min (>60); GFR (African American) 89 ML/MIN (>60); Globulin 3.3 g/dL (1.3-3.2); Glucose 113 mg/dl (74-100); Potassium 3.9 mmoL/L (3.5-5.1); Sodium 140 mmol/L (136-145); Total Protein,Serum 7.3 g/dl (6.3-8.2)
[2023-08-27 12:06] LABS: C-Reactive Protein 0.9 mg/L (0-4)
[2023-08-27 12:26] VITALS: BP 122/72; PULSE 84; RESP 18; O2SAT 98
== END 2023-08-27 12:28 | disposition home or self-care (01) ==
LOC: INF 11:11
PROVIDERS: PCP Family Medicine; Visit Provider Physician Assistant
DX: K51.80 Other ulcerative colitis without complications (principal)
CPT/HCPCS: 80053; 85025; 86140; 96413; J3380

== ENCOUNTER 2023-10-29 12:08 | Outpatient (CLI) | payer MEDICARE, OTHER, SELFPAY ==
[2023-10-29 12:13] VITALS: BMI 28.0
[2023-10-29] MEDS: SODIUM CHLORIDE 0.9% 10ML FLUSH SYRINGE 10 ML IV (12:31)
[2023-10-29] MEDS: SODIUM CHLORIDE 0.9% 50ML BAG 50 ML IV (12:32)
[2023-10-29 12:37] LABS: Basophils # 0.1 K/mm3 (0-0.2); Basophils % 1.7 % (0.1-2.0); Eosinophils # 0.1 K/mm3 (0.0-0.4); Eosinophils % 3.2 % (0.1-12.0); Hematocrit 50.3 % (42.0-52.0); Hemoglobin 16.2 g/dL (14.1-18.0); Lymphocytes # 1.5 K/mm3 (0.7-4.5); Mean Corpuscular HGB Conc 32.2 g/dL (31.8-35.4); Mean Corpuscular Hemoglobin 30.2 pg (27.0-31.2); Mean Corpuscular Volume 93.9 fl (80-94); Mean Platelet Volume 9.1 fl (7.4-10.4); Monocytes # 0.3 K/mm3 (0.1-1.0); Monocytes % 6.4 % (1.7-9.3); Neutrophils # 2.3 K/mm3 (1.8-7.8); Neutrophils % 53.7 % (37.0-80.0); Platelet Count 209 K/mm3 (142-424); Red Blood Count 5.36 M/mm3 (4.60-6.20); White Blood Count 4.4 K/mm3 (4.8-10.8)
[2023-10-29 12:45] VITALS: BP 133/74; PULSE 91; RESP 18; TEMP 36.2; O2SAT 99
[2023-10-29] MEDS: VEDOLIZUMAB 300 MG in 0.9 % SODIUM CHLORIDE 250 ML 500 MG IV (12:45)
[2023-10-29 13:01] LABS: Alanine Aminotransferase 15 U/L (12-78); Albumin Level 4.1 g/dl (3.5-5.0); Albumin/Globulin Ratio 1.2 (1.1-1.8); Alkaline Phosphatase 84 U/L (38-126); Anion Gap 8.7 mEq/L (5-15); Aspartate Amino Transferase 27 U/L (17-59); Bilirubin,Total 0.7 mg/dl (0.2-1.3); Blood Urea Nitrogen 15 mg/dl (9-20); Calcium 9.1 mg/dl (8.4-10.2); Carbon Dioxide 29 mmol/L (22.0-30.0); Chloride 108 mmol/L (98-107); Creatinine Clearance Estimated 72 mL/min (50-200); Estimated Glomerular Filt Rate 65 ml/min (>60); GFR (African American) 79 ML/MIN (>60); Globulin 3.3 g/dL (1.3-3.2); Glucose 92 mg/dl (74-100); Potassium 3.7 mmoL/L (3.5-5.1); Sodium 142 mmol/L (136-145); Total Protein,Serum 7.4 g/dl (6.3-8.2)
[2023-10-29 13:06] LABS: C-Reactive Protein 0.9 mg/L (0-4)
[2023-10-29 13:30] VITALS: BP 146/80; PULSE 91; RESP 18; O2SAT 99
== END 2023-10-29 13:43 | disposition home or self-care (01) ==
LOC: INF 12:09
PROVIDERS: PCP Family Medicine; Visit Provider Physician Assistant
DX: K51.90 Ulcerative colitis, unspecified, without complications (principal)
CPT/HCPCS: 80053; 85025; 86140; 96413; J3380

== ENCOUNTER 2023-12-24 12:39 | Outpatient (CLI) | payer MEDICARE, OTHER, SELFPAY ==
[2023-12-24 13:06] VITALS: BP 129/84; PULSE 84; RESP 18; TEMP 36.6; O2SAT 98
[2023-12-24] MEDS: VEDOLIZUMAB 300 MG in 0.9 % SODIUM CHLORIDE 250 ML 500 MG IV (13:06)
[2023-12-24] MEDS: SODIUM CHLORIDE 0.9% 10ML FLUSH SYRINGE 10 ML IV (13:06)
[2023-12-24] MEDS: SODIUM CHLORIDE 0.9% 50ML BAG 50 ML IV (13:08)
[2023-12-24 13:36] VITALS: BP 123/82; PULSE 87; RESP 18; O2SAT 98
[2023-12-24 14:05] VITALS: BP 131/85; PULSE 82; RESP 18; O2SAT 98
== END 2023-12-24 14:05 | disposition home or self-care (01) ==
LOC: INF 12:40
PROVIDERS: PCP Family Medicine; Visit Provider Physician Assistant
DX: K51.80 Other ulcerative colitis without complications (principal)
CPT/HCPCS: 96413; J3380

== ENCOUNTER 2024-01-01 14:11 | Emergency (ER) | payer MEDICARE, OTHER, SELFPAY ==
[2024-01-01 14:14] VITALS: BP 166/91; PULSE 84; RESP 16; TEMP 37; O2SAT 98; BMI 29.5
--- NOTE | 2024-01-01 14:19 | ED_ITS ---
<Statement entered by Alison Kumar DO - 01/01/24 15:50> I was consulted by the CLINT, and we discussed the complexity of the problems being addressed. I approved the treatment and management plan for this patient's care in the emergency department, thus performing a substantive portion of the medical decision making. Alison Kumar DO Discharge Plan Disposition Patient Disposition: Home, Self-Care Condition: Good Prescriptions Prescriptions: No Action acetaminophen 325 mg tablet 325 mg PO QID PRN (Reason: pain) apixaban 2.5 mg tablet 2.5 mg PO BID carbidopa-levodopa 25-100 mg tablet 2 tab PO QID Qty: 720 3RF levetiracetam [Keppra] 500 mg tablet 1,500 mg PO BID MDD 3000 Qty: 540 3RF cholecalciferol (vitamin D3) 125 mcg (5,000 unit) tablet 125 mcg PO DAILY furosemide 40 mg tablet 40 mg PO DAILY PRN (Reason: Hypertension) multivitamin Tablet 1 tab PO DAILY melatonin 5 mg capsule See Rx Instructions .ROUTE .COMPLEX Rx Instructions: 5MG PO PRN-HS; baclofen 10 mg tablet 15 mg PO TID MDD 45 mg Qty: 405 3RF clonazepam 0.5 mg tablet 0.25 mg PO HS 30 Days Qty: 15 5RF Rx Instructions: administer 60 minutes before bedtime pimavanserin 34 mg capsule 34 mg PO DAILY MDD 34 mg Qty: 90 3RF Rx Instructions: 1 tab po daily at 4:00 PM. Take with food fluoxetine 20 MG capsule 20 mg PO DAILY amlodipine 5 MG tablet 5 mg PO DAILY Lactobac comb [id number] 1 EACH capsule 1 each PO DAILY bisacodyl 10 MG suppository 10 mg RC DAILYP PRN (Reason: Constipation) polyethylene glycol 3350 17 gram powder in packet 17 g PO DAILY Referrals Follow up/Referrals: Rosa Jones MD [Primary Care Provider] - See instructions Jordan Douglas DO [Staff Physician] - See instructions (Left distal fibula fracture) Activity Restrictions/Add. Instructions Additional Instructions/Restrictions: Please keep foot in walking boot. May use ice along with Tylenol alternating every 4 hours with Motrin as needed for symptom control. Turn to ER for any worsening signs or symptoms as needed. Clinical Impressions Clinical Impression: Closed fracture of distal end of left fibula Qualifiers: Encounter type: initial encounter Fracture morphology: unspecified fracture morphology Qualified Code(s): S82.832A - Other fracture of upper and lower end of left fibula, initial encounter for closed fracture Instructions Patient Instructions: DI for Fracture, Fibula Shaft Fracture Discharge ED Provider: Alison Kumar General Adult HPI General Chief complaint: Extremity Injury, Lower Stated complaint: left foot pain Time Seen by Provider: 01/01/24 14:19 History of Present Illness HPI narrative: Patient presents for evaluation of left ankle pain. Patient has a history of Lewy body dementia, myoclonus, myelopathy, obstructive sleep apnea, BPH, hypertension, anxiety and depression. Patient is primarily wheelchair-bound and woke up this morning complaining of left foot pain. There is no known trauma. Pain is located on both sides of his ankle. He noticed swelling as well. Related Data Home Medications Medication Instructions Recorded Confirmed Lactobacillus comb 1 each PO DAILY Supplement 01/11/20 12/24/23 no.[id number] 300 million cell-250 mg capsule bisacodyl 10 mg rectal suppository 10 mg SC DAILYP PRN Constipation 01/11/20 12/24/23 acetaminophen 325 mg tablet 325 mg PO QID PRN pain 02/21/20 12/24/23 fluoxetine 20 mg capsule 20 mg PO DAILY Depression 05/09/20 12/24/23 amlodipine 5 mg tablet 5 mg PO DAILY blood pressure 01/09/21 12/24/23 cholecalciferol (vitamin D3) 125 125 mcg PO DAILY Supplement 09/13/21 12/24/23 mcg (5,000 unit) tablet apixaban 2.5 mg tablet 2.5 mg PO BID Blood thinner 08/05/22 12/24/23 polyethylene glycol 3350 17 gram 17 g PO DAILY bowels 11/27/22 12/24/23 oral powder packet furosemide 40 mg tablet 40 mg PO DAILY PRN Hypertension 02/26/23 12/24/23 melatonin 5 mg capsule See Rx Instructions .Route .COMPLEX 12/09/23 12/24/23 multivitamin 1 tab PO DAILY 12/09/23 12/24/23 Previous Rx's Medication Instructions Recorded carbidopa 25 mg-levodopa 100 mg 2 tab PO QID PARKINSONS DISEASE 08/04/23 tablet #720 tabs levetiracetam 500 mg tablet 1,500 mg (3 x 500 mg) PO BID 08/04/23 (Keppra) Myoclonus #540 tabs pimavanserin 34 mg capsule 34 mg PO DAILY parkinson's, 09/18/23 hallucinations #90 caps baclofen 10 mg tablet 15 mg (1.5 x 10 mg) PO TID 12/09/23 Spasticity, myoclonus #405 tabs clonazepam 0.5 mg tablet 0.25 mg (1/2 x 0.5 mg) PO HS RBD 12/09/23 30 days #15 tabs Allergies Allergy/AdvReac Type Severity Reaction Status Date / Time No Known Allergies Allergy Verified 12/24/23 14:48 [facility] Disclaimer: The information contained in this section may have been updated after the patient was seen, as this information can be updated by other users. Medical History HTN (hypertension) UTI (urinary tract infection) Enlarged prostate GERD (gastroesophageal reflux disease) Gastric ulcer Anemia Ulcerative (chronic) enterocolitis Parkinsons disease Surgical History H/O colonoscopy Previous back surgery Family History Other Inguinal hernia Leukemia Social History (Updated 12/24/23 @ 13:54 by Hawk Crump RN) Smoking Status: Never smoker second hand exposure: No alcohol intake: never substance use type: denies use current occupational status: retired and disabled Travel in the last 8 weeks: None household members: spouse housing: house marital status: education level: high school current occupational exposures/hazards: Yes caffeine: Yes ROS Obtained: Yes Systems reviewed as appropriate & no additional complaints except as documented Physical Exam General General appearance: alert and in no apparent distress Respiratory Respiratory exam: Present normal lung sounds bilaterally Cardiovascular Cardiovascular exam: Present regular rate and normal rhythm Expanded Lower Extremity Exam Left: Ankle exam: Present tenderness (Bilateral malleoli) and swelling; Absent ecchymosis Neurological Exam Neurological exam: Present alert, oriented X3 and CN II-XII intact Medical Decision Making Medical Records Medical records reviewed: Yes I reviewed the patient's medical records. [place]reket Inquiry Pt receiving controlled substance: No Vital Signs: 01/01/24 14:14 01/01/24 14:31 01/01/24 15:00 Temperature 98.6 F Temperature Source Oral Pulse Rate 73 74 Pulse Rate [Right] 84 Respiratory Rate 16 Blood Pressure 176/91 H 174/91 H Blood Pressure [Left Arm] 166/91 H Blood Pressure Mean [Left Arm] 116 Blood Pressure Source [Left Arm] Automatic Cuff 02 Sat by Pulse Oximetry 98 97 98 Oxygen Delivery Method Room Air Orders (Tests/Meds): ED MEDICATIONS Discontinued Medications Generic Name Dose Route Start Last Admin Trade Name Freq PRN Reason Stop Dose Admin Acetaminophen 1,000 mg 01/01/24 14:29 01/01/24 14:32 Acetaminophen 500mg Tab PO 01/01/24 14:30 1,000 mg ONCE ONE Administration Ibuprofen 800 mg 01/01/24 14:29 01/01/24 14:32 Ibuprofen 400 Mg Tablet PO 01/01/24 14:30 800 mg ONCE ONE Administration ORDERS Category Date Time Status Ankle XR - Left minimum 3 Views [XR ankle LT min 3V] Exams 01/01/24 14:29 Taken Stat Foot XR left minimum 3 views [XR foot LT min 3V] Stat Exams 01/01/24 14:29 Taken Tibia/fibula XR left 2 views [XR tibia fibula LT 2V] Exams 01/01/24 15:05 Taken Stat XR knee LT 3V Stat Exams 01/01/24 15:05 Taken Medical Decision Narrative: In summary patient is a 73-year-old male who presents to the emergency department for evaluation of left ankle pain. Patient is hemodynamically stable upon arrival, afebrile. Physical exam is remarkable for tenderness to palpation of the bilateral malleoli and edema. There is no obvious deformity of the ankle or foot on palpation. There is painful range of motion but patient is neurovascular intact distally.. Differential diagnosis includes dependent edema, ankle sprain, occult fracture etc. Initial workup will be conducted with plain film x-rays. Initial interventions include Tylenol and Motrin. Initial workup reviewed by me and my informal interpretation of his plain film x-ray shows a nondisplaced distal fibula fracture. Upon repeat evaluation good reduction in his discomfort after initial intervention. Given this patient was placed in a walking boot and referred to orthopedics for follow-up. Critical Care Critical Care Time Critical Care Time: No
--- NOTE | 2024-01-01 14:29 | XR_ITS ---
FINAL REPORT CLINICAL HISTORY: swelling and pain best images possible COMPARISON: None FINDINGS: LEFT ANKLE: Three views of the left ankle were obtained. Diffuse osteopenia is present. There is an oblique fracture of the distal fibular metaphysis, of indeterminate age, with mild associated soft tissue swelling, greatest laterally. The joint spaces and mortise are intact. IMPRESSION: Diffuse osteopenia. Oblique fracture of the distal fibular metaphysis, of indeterminate age. Mild associated soft tissue swelling of the ankle, more prominent laterally. Reviewed, Interpreted and Dictated by Philip Mustafa III, MD Transcribed by Argentina Michael Authenticated and [facility]
--- NOTE | 2024-01-01 14:29 | XR_ITS ---
FINAL REPORT CLINICAL HISTORY: swelling and pain best images possible COMPARISON: None FINDINGS: LEFT FOOT: Three views of the left foot were obtained. Diffuse severe osteopenia is present. There is an oblique fracture of the distal fibular metaphysis of uncertain age. The joint spaces are intact. Mild ankle soft tissue swelling is present, more prominent laterally. IMPRESSION: Diffuse osteopenia. Oblique fracture of the distal fibular metaphysis of uncertain age. Reviewed, Interpreted and Dictated by Philip Mustafa III, MD Transcribed by Argentina Michael Authenticated and [facility]
[2024-01-01 14:31] VITALS: BP 176/91; PULSE 73; O2SAT 97
[2024-01-01] MEDS: ACETAMINOPHEN 500MG TAB 1000 MG PO (14:32)
[2024-01-01] MEDS: IBUPROFEN 400 MG TABLET 800 MG PO (14:32)
[2024-01-01 15:00] VITALS: BP 174/91; PULSE 74; O2SAT 98
--- NOTE | 2024-01-01 15:05 | XR_ITS ---
FINAL REPORT CLINICAL HISTORY: ankle pain, fibular fx FINDINGS: Left knee Three views were obtained. There is no acute fracture or dislocation. There are moderate degenerative changes with medial compartment narrowing. No soft tissue abnormality is identified. IMPRESSION: No acute process. Reviewed, Interpreted and Dictated by Philip Mustafa III, MD Transcribed by Jenniffer Thomas Authenticated and [facility]
--- NOTE | 2024-01-01 15:05 | XR_ITS ---
FINAL REPORT CLINICAL HISTORY: ankle pain, fibular fx FINDINGS: Left tibia fibula Two views were obtained. There is an oblique nondisplaced fracture of the distal fibular metaphysis . There is lateral soft tissue swelling of the ankle. The bones are osteopenic. There are mild degenerative changes. IMPRESSION: Fracture as above. Reviewed, Interpreted and Dictated by Philip Mustafa III, MD Transcribed by Jenniffer Thomas Authenticated and [facility]
--- NOTE | 2024-01-01 15:18 | PC.NURSE ---
XR AT BEDSIDE
[2024-01-01 15:57] VITALS: BP 183/85; PULSE 78; RESP 16; TEMP 37; O2SAT 98
== END 2024-01-01 15:58 | disposition home or self-care (01) ==
PROVIDERS: Emergency Provider Emergency Medicine; PCP Family Medicine
DX: S82.435A Nondisplaced oblique fracture of shaft of left fibula, initial encounter for closed fracture (principal); X58.XXXA Exposure to other specified factors, initial encounter; G31.83 Neurocognitive disorder with Lewy bodies; F02.80 Dementia in other diseases classified elsewhere, unspecified severity, without behavioral disturbance, psychotic disturbance, mood disturbance, and anxiety; I10 Essential (primary) hypertension
CPT/HCPCS: 73562; 73590; 73610; 73630; 99284

== ENCOUNTER 2024-01-07 10:39 | Outpatient (CLI) | payer MEDICARE, OTHER, SELFPAY ==
--- NOTE | 2024-01-07 10:40 | FL_ITS ---
FINAL REPORT CLINICAL HISTORY: 717.41 dap 5.43 fluoro time FINDINGS: MODIFIED BARIUM SWALLOW History: Dysphagia. FINDINGS: Fluoroscopy was provided for the speech pathologist to evaluate the swallowing mechanism. The patient was given several different consistencies of barium while the swallow was visualized fluoroscopically. The report of the speech pathologist should be consulted prior to making dietary decisions. Fluoro time: 5 minutes 43 seconds DAP: 717.41 uGy.m2 IMPRESSION: Modified barium swallow under fluoroscopic guidance. Please see the report of the speech pathologist for more detail. Films reviewed , interpreted and dictated by Dr. Mustafa. Transcribed by Jhonatan Sandhu PA-C. Reviewed, Interpreted and Dictated by Philip Mustafa III, MD Transcribed by EFREN Llanos Authenticated and [facility]
--- NOTE | 2024-01-07 12:41 | HMH.SLMBS2 ---
Speech & Language Evaluation Speech/Language Mod Barium Swallow Start: 01/07/24 11:40 Freq: once Status: Complete Protocol: [facility] 01/07/24 11:40 [facility] (Rec: 01/07/24 12:07 [facility] L[facility] General Information General Current Food Consistancy Regular,Thin Liquids Dentition Good Dentition Oxygen Status Room Air Facial Symmetry Symmetrical Ability to Follow Directions Good Communication Ability Mild Impairment MBS Recommendations Diet Dietary Recommendations Regular,Thin Liquids Comment Easy to chew- extra sauces/ gravy Treatment/Strategies Strategy/Precaution Recommend Sitting Upright (90 deg), Double Swallow,Small Bites and Sips,Alternate Liquids/Solids Mod Barium Swallow Impressions Summary and Impressions Oral Phase Impression Moderate Impairment Oral Phase Summary Mild-moderate impairment of the oral preparatory and oral transit phase of the swallow. Mild impairment of thin liquids 2' oral withholding. Moderate impairment of oral preparatory and transit of solids. Premature spillage to the vallecula noted on all trials. Oral withholding observed on all solid consistencies. Fatigue observed on mech soft and regular food consistencies 2' discoordinated mastication and lingual movement. Mild oral residue noted on solids, which were cleared with liquid wash . Pharyngeal Phase Impression Moderate Impairment Pharyngeal Phase Summary Mild-moderate impairment of the pharyngeal phase of swallowing. No aspiration or penetration noted on any trial . Moderate vallecular residue observed 2' decreased pharyngeal stripping, reduced hyolaryngeal excursion and elevation, and reduced base of tongue retraction. Multiple trials of double swallows and throat clear with subsequent swallow were completed to clear vallecular residue on solid consistencies. Liquid wash completed x2 to clear vallecular residue on mech soft and regular food trials. No impairments observed with thin liquids. UES opening observed to be WFL on all consistencies. Speech/Language MBS Assessment/Goals/Plan Assessment Date of Evaluation: 01/07/24 Evaluation Type Initial Certification Assessment/Problems Choking and dysphagia per MD order Does Patient Qualify for Service No Qualify/Failure Comment Based on clinical observations made throughout instrumental assessment (MBSS), Mr. Cuevas'aubrey mastication and manipulation of bolus and swallowing with implementation of recommended compensatory strategies and aspiration precautions are WFL given Lewy Body Dementia dx and no further skilled speech therapy services are warranted at this time. Recommendations PHYSICIAN CERTIFICATION: The specified therapy services are required, authorized, and reviewed every 30 days. Diet Recommendations Normal Liquid Type Recommendations Normal/Thin SL Swallow Guidelines Assist w/all meals,Alt bite w/ sip thru meal,Standard Aspiration Prec.,Chk mough for pocketing,Eat at slow rate, Oral Care Education,Oral care pre/post meals Dysphagia Swallow Precautions/Strategies Sitting Upright (90 deg), Double Swallow,Small Bites and Sips,Alternate Liquids/Solids Plan Pt/Guardian verbally ack understanding Yes of dx/prognosis/goals G -code Required No Education Instructions provided Discussed MBSS results, diet recommendations, compensatory strategies, and aspiration risks/precautions with pt and both of which expressed understanding. HOSEMAN also provided pt with packet reviewing clinical recommendations and diet. Pt/Caregiver able to recall information Able to recall/restate Reinforcement needed No Mod Barium Swallow Setup Exam Setup Radiologist Philip Mustafa Level of Consciousness Awake,Alert,Appropriate, Follows Commands Mod Barium Swallow-Lat View Textures Lateral View Food Presentation Thin Liquid via Cup,Thin Liquid via Straw,Pureed Food- Thin,Mech. Soft Food- Regular, Barium Tablet,Regular Food, Pudding Comment puree: applesauce mechanical soft: nutrigrain bar with barium pudding regular: manohar cracker with barium pudding Oral Phase Labial Closure Minimal Impairment Bolus Formation Pooling L/R Minimal Impairment Bolus Formation under Tongue No Impairment (WFL) Bolus Formation Scattered Loss Mild Impairment Mastication Rotary Chew Moderate Impairment Mastication Munching Moderate Impairment Mastication Lateralization Moderate Impairment Lingual Movement Moderate Impairment Residue Clearing Mild Impairment Pharyngeal Phase A/P Lingual Propulsion Spills Moderate Impairment Swallow Response Delay Moderate Impairment Base of Tongue Moderate Impairment Epiglottic Coverage Moderate Impairment Laryngeal Elevation Moderate Impairment Vallecular Retention Clearing Moderate Impairment Pharyn. Wall Residue Clearing No Impairment (WFL) Piriform Sinus Retention No Impairment (WFL) Aspiration? No Silent aspiration? No Mod Barium Swallow-AP View Performed Mod Barium Swallow A/P View Test Not Applicable/Performed PHYSICIAN CERTIFICATION: I certify the specified therapy services for Simba Cuevas JR are required, authorized, and reviewed every 30 days.
== END 2024-01-07 23:59 | disposition home or self-care (01) ==
LOC: RAD 10:40
PROVIDERS: PCP Specialist; Visit Provider Specialist
DX: R13.10 Dysphagia, unspecified (principal); G31.83 Neurocognitive disorder with Lewy bodies; F02.B18 Dementia in other diseases classified elsewhere, moderate, with other behavioral disturbance; R09.89 Other specified symptoms and signs involving the circulatory and respiratory systems; G20.C Parkinsonism, unspecified
CPT/HCPCS: 70371; 92611

== ENCOUNTER 2024-01-13 12:41 | Outpatient (CLI) | payer MEDICARE, OTHER, SELFPAY ==
--- NOTE | 2024-01-13 12:46 | XR_ITS ---
FINAL REPORT CLINICAL HISTORY: lt fibula fx COMPARISON: 01/01/2024 FINDINGS: Left tibia fibula Two views were obtained. There is an oblique minimally displaced distal fibular fracture. Fracture line is slightly less distinct than previous indicating mild fracture healing. There is generalized osteopenia. IMPRESSION: Minimal change in the distal fibular fracture. Reviewed, Interpreted and Dictated by Abena Fay MD Transcribed by Jenniffer Thomas Authenticated and [facility]
== END 2024-01-13 23:59 | disposition home or self-care (01) ==
LOC: RAD 12:42
PROVIDERS: PCP Family Medicine; Visit Provider Physician Assistant Surgical
DX: M79.605 Pain in left leg (principal); S82.832A Other fracture of upper and lower end of left fibula, initial encounter for closed fracture
CPT/HCPCS: 73590

== ENCOUNTER 2024-01-27 12:59 | Outpatient (CLI) | payer MEDICARE, OTHER, SELFPAY ==
--- NOTE | 2024-01-27 13:03 | XR_ITS ---
FINAL REPORT CLINICAL HISTORY: lt fibula fx COMPARISON: 01/13/2024 FINDINGS: Two views of the left tibia/fibula were obtained. There is moderate degenerative change of the knee. There is a subacute fracture of the distal fibula. There is a lucency in the distal tibia which may represent a subacute fracture also. The overall appearance is similar to the prior study. Soft tissue swelling is noted. IMPRESSION: Subacute distal fibula fracture with possible subacute distal tibia fracture. Reviewed, Interpreted and Dictated by Philip Mustafa III, MD Transcribed by Ally Parra Authenticated and . [facility]
== END 2024-01-27 23:59 | disposition home or self-care (01) ==
LOC: RAD 13:00
PROVIDERS: PCP Family Medicine; Visit Provider Physician Assistant Surgical
DX: S82.832A Other fracture of upper and lower end of left fibula, initial encounter for closed fracture (principal); M25.572 Pain in left ankle and joints of left foot
CPT/HCPCS: 73590

== ENCOUNTER 2024-02-18 11:22 | Outpatient (CLI) | payer MEDICARE, OTHER, SELFPAY ==
[2024-02-18] MEDS: SODIUM CHLORIDE 0.9% 50ML BAG 50 ML IV (11:53)
[2024-02-18] MEDS: VEDOLIZUMAB 300 MG in 0.9 % SODIUM CHLORIDE 250 ML 500 MG IV (11:53)
[2024-02-18 12:14] VITALS: BP 144/90; PULSE 90; RESP 18; O2SAT 99
[2024-02-18 12:38] VITALS: BP 137/76; PULSE 91; RESP 18; O2SAT 99
== END 2024-02-18 12:38 | disposition home or self-care (01) ==
LOC: INF 11:24
PROVIDERS: PCP Family Medicine; Visit Provider Physician Assistant
DX: K51.90 Ulcerative colitis, unspecified, without complications (principal); Z79.620 Long term (current) use of immunosuppressive biologic
CPT/HCPCS: 96413; J3380

== ENCOUNTER 2024-02-24 13:07 | Outpatient (CLI) | payer MEDICARE, OTHER, SELFPAY ==
--- NOTE | 2024-02-24 13:12 | XR_ITS ---
FINAL REPORT CLINICAL HISTORY: Left tib fib fx COMPARISON: 01/27/2024 FINDINGS: LEFT TIBIA FIBULA: There is an oblique healing fracture of the distal fibular metaphysis with associated callus formation. The overall positioning of the fracture fragments is stable since the prior exam. The joint spaces are intact. There is no soft tissue abnormality. IMPRESSION: Oblique healing fracture of the distal fibular metaphysis with callus formation. Reviewed, Interpreted and Dictated by Kevin Bautista MD Transcribed by [place] Michael Authenticated and [facility]
== END 2024-02-24 23:59 | disposition home or self-care (01) ==
LOC: RAD 13:09
PROVIDERS: PCP Family Medicine; Visit Provider Orthopaedic Surgery
DX: S82.202A Unspecified fracture of shaft of left tibia, initial encounter for closed fracture (principal); S82.402A Unspecified fracture of shaft of left fibula, initial encounter for closed fracture; M79.662 Pain in left lower leg
CPT/HCPCS: 73590

== ENCOUNTER 2024-03-23 13:27 | Outpatient (CLI) | payer MEDICARE, OTHER, SELFPAY ==
--- NOTE | 2024-03-23 13:31 | XR_ITS ---
FINAL REPORT CLINICAL HISTORY: lt tib fib fx COMPARISON: 02/24/2024 FINDINGS: Two views of the left tibia/fibula were obtained. Distal fibular fracture line is not well seen but there appears to be callus formation at the posterior cortex of the distal fibula. There is osteopenia. The joint spaces are intact. There is no soft tissue abnormality. IMPRESSION: Healing distal fibular fracture. Reviewed, Interpreted and Dictated by Kevin Bautista MD Transcribed by Ally Parra Authenticated and [facility]
--- NOTE | 2024-03-23 14:56 | CA_ITS ---
FINAL REPORT TECHNIQUE: Ultrasound images of the deep venous system were obtained from the left groin to the calf veins. CLINICAL HISTORY: lt lower extremity swelling, wheelchair bound COMPARISON: None FINDINGS: Exam is technically limited. The deep venous system is normally compressible. Normal flow is identified. IMPRESSION: No evidence of left lower extremity DVT. Reviewed, Interpreted and Dictated by Kevin Bautista MD Transcribed by Ally Parra Authenticated and [facility]
== END 2024-03-23 23:59 | disposition home or self-care (01) ==
PROVIDERS: PCP Family Medicine; Visit Provider Physician Assistant Surgical
DX: S82.832A Other fracture of upper and lower end of left fibula, initial encounter for closed fracture (principal); M79.89 Other specified soft tissue disorders
CPT/HCPCS: 73590; 93971

== ENCOUNTER 2024-04-12 14:51 | Outpatient (CLI) | payer MEDICARE, OTHER, SELFPAY ==
[2024-04-12 15:17] LABS: Adenovirus F 40/41, stool Not Detected (NotDetected); Astrovirus Not Detected (NotDetected); Campylobacter Not Detected (NotDetected); Clostridium Difficile A/B, PCR Not Detected (NotDetected); Cryptosporidium Not Detected (NotDetected); Cyclospora Cayetanesis Not Detected (NotDetected); Entamoeba histolytica Not Detected (NotDetected); Enteroaggregative E coli Not Detected (NotDetected); Enteropathogenic E coli Not Detected (NotDetected); Enterotoxigenic E coli Not Detected (NotDetected); Giardia lamblia Not Detected (NotDetected); Norovirus Not Detected (NotDetected); Plesimonas Shigalloides, PCR Not Detected (NotDetected); Rotavirus A Not Detected (NotDetected); Salmonella, PCR Not Detected (NotDetected); Sapovirus Not Detected (NotDetected); Shiga-like toxin E coli Not Detected (NotDetected); Shigella Enterovasive E coli Not Detected (NotDetected); Vibrio Cholerae Not Detected (NotDetected); Vibrio, PCR Not Detected (NotDetected); Yersinia Entercolitica, PCR Not Detected (NotDetected)
== END 2024-04-12 23:59 | disposition home or self-care (01) ==
LOC: LAB 14:52
PROVIDERS: PCP Family Medicine; Visit Provider Nurse Practitioner
DX: R19.7 Diarrhea, unspecified (principal)
CPT/HCPCS: 87506

== ENCOUNTER 2024-04-14 12:04 | Outpatient (CLI) | payer MEDICARE, OTHER, SELFPAY ==
[2024-04-14 12:41] VITALS: BP 143/90; PULSE 92; RESP 18; TEMP 36.6; O2SAT 97
[2024-04-14] MEDS: VEDOLIZUMAB 300 MG in 0.9 % SODIUM CHLORIDE 250 ML 500 MG IV (12:41)
[2024-04-14] MEDS: SODIUM CHLORIDE 0.9% 50ML BAG 50 ML IV (12:41)
[2024-04-14] MEDS: SODIUM CHLORIDE 0.9% 10ML FLUSH SYRINGE 10 ML IV (12:41)
[2024-04-14 13:25] VITALS: BP 134/91; PULSE 84; RESP 18; TEMP 36.6; O2SAT 96
== END 2024-04-14 13:25 | disposition home or self-care (01) ==
LOC: INF 12:05
PROVIDERS: PCP Family Medicine; Visit Provider Internal Medicine
DX: K51.90 Ulcerative colitis, unspecified, without complications (principal)
CPT/HCPCS: 96413; J3380

== ENCOUNTER 2024-06-09 12:01 | Outpatient (CLI) | payer MEDICARE, OTHER, SELFPAY ==
[2024-06-09] MEDS: VEDOLIZUMAB 300 MG in 0.9 % SODIUM CHLORIDE 250 ML 500 MG IV (12:35)
[2024-06-09] MEDS: SODIUM CHLORIDE 0.9% 50ML BAG 50 ML IV (12:35)
[2024-06-09 12:45] VITALS: BP 134/82; PULSE 90; RESP 18; O2SAT 98
[2024-06-09 13:30] VITALS: BP 134/82; PULSE 90; RESP 18; O2SAT 98
== END 2024-06-09 13:30 | disposition home or self-care (01) ==
LOC: INF 12:03
PROVIDERS: PCP Family Medicine; Visit Provider Physician Assistant
DX: K51.00 Ulcerative (chronic) pancolitis without complications (principal)
CPT/HCPCS: 96413; J3380

== ENCOUNTER 2024-06-15 13:18 | Outpatient (CLI) | payer MEDICARE, OTHER, SELFPAY ==
--- NOTE | 2024-06-15 13:22 | XR_ITS ---
FINAL REPORT CLINICAL HISTORY: pain COMPARISON: None FINDINGS: LEFT FOOT Three views of the left foot demonstrate no acute fracture or dislocation. Osteopenia is present. There is a moderate hallux valgus deformity. The visualized joint spaces are otherwise normally aligned. The soft tissues are unremarkable. IMPRESSION: No acute bony abnormality. However, osteopenia decreases the diagnostic sensitivity for fractures. If symptoms persist, follow-up radiographs or MRI might be helpful. Reviewed, Interpreted and Dictated by Kevin Bautista MD Transcribed by Argentina Michael Authenticated and [facility]
== END 2024-06-15 23:59 | disposition home or self-care (01) ==
LOC: RAD 13:20
PROVIDERS: PCP Family Medicine; Visit Provider Physician Assistant Surgical
DX: M79.89 Other specified soft tissue disorders (principal); M79.672 Pain in left foot
CPT/HCPCS: 73630

== ENCOUNTER 2024-08-11 11:59 | Outpatient (CLI) | payer MEDICARE, OTHER, SELFPAY ==
[2024-08-11] MEDS: VEDOLIZUMAB 300 MG in 0.9 % SODIUM CHLORIDE 250 ML 500 MG IV (12:36)
[2024-08-11] MEDS: SODIUM CHLORIDE 0.9% 50ML BAG 50 ML IV (12:36)
[2024-08-11 12:53] VITALS: BP 144/81; PULSE 84; RESP 18; O2SAT 97
[2024-08-11 13:30] VITALS: BP 127/80; PULSE 89; RESP 18; O2SAT 96
== END 2024-08-11 13:36 | disposition home or self-care (01) ==
LOC: INF 12:03
PROVIDERS: PCP Family Medicine; Visit Provider Internal Medicine
DX: K51.90 Ulcerative colitis, unspecified, without complications (principal)
CPT/HCPCS: 96413; J3380

== ENCOUNTER 2024-10-06 11:58 | Outpatient (CLI) | payer MEDICARE, OTHER, SELFPAY ==
[2024-10-06] MEDS: VEDOLIZUMAB 300 MG in 0.9 % SODIUM CHLORIDE 250 ML 500 MG IV (12:20)
[2024-10-06] MEDS: SODIUM CHLORIDE 0.9% 50ML BAG 50 ML IV (12:20)
[2024-10-06 12:30] VITALS: BP 138/80; PULSE 92; RESP 18; TEMP 36.8; O2SAT 96
[2024-10-06 13:00] VITALS: BP 129/80; PULSE 88
== END 2024-10-06 13:10 | disposition home or self-care (01) ==
LOC: INF 11:59
PROVIDERS: PCP Family Medicine; Visit Provider Physician Assistant
DX: K51.90 Ulcerative colitis, unspecified, without complications (principal)
CPT/HCPCS: 96413; J3380

== ENCOUNTER 2024-12-01 12:03 | Outpatient (CLI) | payer MEDICARE, OTHER, SELFPAY ==
--- OUTSIDE RECORDS SUMMARY | 2024-12-01 12:18 | XMS_ITS | Continuity of Care Document ---
Author Name [facility] Organization [facility] Care Team Providers Care Station [place]eman Name Role Phone [facility] Unavailable Unavailable Medications Combined list of outpatient medications from Department of Defense and Veterans Affairs facilities.Medications provided include 1) outpatient medications from the last 15 months, and 2) patient-reported medications. Medication Details Route Status Patient Instructions Prescription Expires Prescription Number Last Dispense Date Ordering Provider Order Date Order Qty Source AMOX TR-POTASSIU M CLAVULANATE (AMOXICILLI N/POTASSIUM CLAV), 875-125 MG, TABLET, ORAL, AUROBINDO PHARM, 20 ea. BOTTLE Active [id number] 4 2023 14 Pharmac y Data Transac tion Service Facilit y BACLOFEN (BACLOFEN), 10 MG, TABLET, ORAL, MARLEX PHARM., 100 ea. BOTTLE Cancele d [id number] : 2023 0 Pharmac y Data Transac tion Service Facilit y CIPROFLOXAC IN HCL (CIPROFLOXA LISSA HCL), 250 MG, TABLET, ORAL, PACK PHARMACEUT, 100 ea. BOTTLE Active [id number] 4 2023 28 Pharmac y Data Transac tion Service Facilit y CLONAZEPAM (clonazepam ), 0.5 MG, TABLET, ORAL, AUROBINDO PHARM, 1000 ea. BOTTLE Cancele d [id number] : 2023 0 Pharmac y Data Transac tion Service Facilit y CLONAZEPAM (clonazepam ), 0.5 MG, TABLET, ORAL, AUROBINDO PHARM, 1000 ea. BOTTLE Cancele d [id number] : 2023 0 Pharmac y Data Transac tion Service Facilit y CLONAZEPAM (CLONAZEPAM ), 0.5MG, TABLET, ORAL, TEVA [place], 500 ea. BOTTLE Active [id number] 4 2023 15 Pharmac y Data Transac tion Service Facilit y FLUOXETINE HCL (FLUOXETINE HCL), 20MG, CAPSULE, ORAL, [employer], 1000 ea. BOTTLE Cancele d [id number] : 2023 0 Pharmac y Data Transac tion Service Facilit y NUPLAZID (pimavanser in tartrate), 34 MG, CAPSULE, ORAL, ACADIA PHARMACE, 30 ea. BOTTLE Cancele d [id number] : 2023 0 Pharmac y Data Transac tion Service Facilit y NUPLAZID (pimavanser in tartrate), 34 MG, CAPSULE, ORAL, ACADIA PHARMACE, 30 ea. BOTTLE Active [id number] 4 2023 90 Pharmac y Data Transac tion Service Facilit y NUPLAZID (pimavanser in tartrate), 34 MG, CAPSULE, ORAL, ACADIA PHARMACE, 30 ea. BOTTLE Active [id number] 4 2023 90 Pharmac y Data Transac tion Service Facilit y OMEPRAZOLE (omeprazole ), 20 MG, CAPSULE DR, ORAL, [employer], 1000 ea. BOTTLE Active [id number] 4 2023 90 Pharmac y Data Transac tion Service Facilit y Social History Combined list of available smoking, tobacco, and other social history from Department of Defense and Veterans Affairs facilities. Social History Type Response Date Comment [facility] e This section is an empty social history section. [employer]
--- OUTSIDE RECORDS SUMMARY | 2024-12-01 12:18 | XMS_ITS | Data Portability ---
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 He has been in symptomatic remission with Entyvio infusions q8 weeks for a few years now. We will assume prescribing for this. Order was faxed to the [facility] infusion center. -Obtain labs per below for continued monitoring -I have discussed surveillance colonoscopy with the patient today. His last endoscopy was in 2019 with 1 adenomatous polyp resected. He understands that he is at increased risk for colorectal malignancy due to his history of polyps as well as IBD. He defers colonoscopy at this time due to his mobility issues. He had a negative cologard about 3 years ago, although this is not recommended for people at increased risk of CRC. 2) GERD: He notes some increased cough with lying, worse since he previously stopped PPI. -Start Omeprazole 20 mg p.o. once daily and monitor. f/u 3 weeks to ensure he has continued to receive his infusions, then in 6 months. [email or web address] Not available 12/04/2023 22:09:39 06/07/2024 06/07/2024 73-year-old male with: 1) Ulcerative colitis:He has been in symptomatic remission with Entyvio infusions q8 weeks for a few years now. He receives his infusions at [facility]. His order for this is currently good through 11/2024. -Obtain labs per below for continued monitoring -His last endoscopy was in 2019 with 1 adenomatous polyp resected. He understands that he is at increased risk for colorectal malignancy due to his history of polyps as well as IBD. He defers colonoscopy at this time due to his mobility issues. He had a negative cologard about 3 years ago, although this is not recommended for people at increased risk of CRC. 2) Constipation/ex cessive gas: I have recommended he decrease Miralax to 1/2 capful once daily and add Citrucel 1 heaping tablespoon in 8 oz of water once daily. Instructed them to contact the office if symptoms are not improved. f/u 6 months and PRN. Will call with lab results. [email or web address] Not available 06/07/2024 18:38:26 Plan of Treatment Reminders Order Date Submit Date Provider Last Modified By Organization Details Last Modified Time Details Appointments None recorded. Lab ESR (erythrocyt e sedimentati on rate), blood 2023 KOBI Janay, [address], [address], [place], [address], 4 16:13:15 C reactive protein, QN, serum or plasma 2023 024 KO[facility] Stacyrp, [address], [address], [place], [address], 4 16:13:16 CMP, serum or plasma 2023 [facility], [address], [address], [place], [address], 4 16:13:13 CBC w/ auto diff 2023 024 [facility], [address], [address], [place], [address], 4 16:13:11 vitamin D, 25-hydroxy, total, serum 2023 [facility], [address], [address], [place], [address], 4 16:13:14 ESR (erythrocyt e sedimentati on rate), blood 2023 024 [facility], [address], [address], [place], [address], 4 16:10:31 C reactive protein, QN, serum or plasma 2023 024 [facility], [address], [address], [place], [address], 4 16:10:32 CMP, serum or plasma 2023 024 [facility], [address], [address], [place], [address], 4 16:10:28 CBC w/ auto diff 2023 024 [facility], [address], [address], [place], [address], 4 16:10:27 vitamin D, 25-hydroxy, total, serum 2023 024 [facility], [address], [address], [place], [address], 4 16:10:30 Mycobacteri um tuberculosi s stimulated gamma interferon, qual, blood 2023 024 [facility], [address], [address], [place], [address], 4 16:10:29 hepatitis B surface Ab, quantitativ e, serum 2023 024 [facility], [address], [address], [place], [address], 4 16:10:29 HBsAg (hepatitis B surface Ag), EIA, serum 2023 [facility], [address], [address], [place], [address], 16:10:32 Referral None recorded. Procedures None recorded. Surgeries None recorded. Imaging None recorded. Medication Orders polyethylen e glycol 3350 17 gram/dose oral powder 2023 024 [id number], [address], [id number], 4 14:18:08 Citrucel (sucrose) oral powder 2023 024 [facility] #[id number], [address], [id number], 4 14:18:09 omeprazole 20 mg capsule,del ayed release 2023 024 [email or web address] [facility] #[id number], [address], [id number], 4 18:10:43 Patient TargetsNo targets recorded. Patient InstructionsNo instructions recorded. Reason for Referral None Reported. Results Created Date Observation Date Name Description Value Unit Range Abnormal Flag Note LastModifiedBy Organization Detail LastModifiedTime 12/04/19 24 12/05/2023 CBC WITH DIFFE RENTI AL/PL ATELE T WBC 4.6 x10e3 /uL 3.4-10 .8 Not Available [facility] ([facility]) [address] [facility], [place], [address], 12/06/2023 16:10:27 12/04/19 24 12/05/2023 CBC WITH DIFFE RENTI AL/PL ATELE T RBC 5.37 x10e6 /uL 4.14-5 .80 Not Available [facility] ([facility]) [address] [facility], [place], [address], 12/06/2023 16:10:27 12/04/19 24 12/05/2023 CBC WITH DIFFE RENTI AL/PL ATELE T hemoglobin 15.7 g/dL 13.0-1 7.7 Not Available [facility] ([facility]) [address] [place], [address], 12/06/2023 16:10:27 12/04/19 24 12/05/2023 CBC WITH DIFFE RENTI AL/PL ATELE T hematocrit 47.8 % 37.5-5 1.0 Not Available [facility] ([facility]) [address] [place], [address], 12/06/2023 16:10:27 12/04/19 24 12/05/2023 CBC WITH DIFFE RENTI AL/PL ATELE T MCV 89 fL 79-97 Not Available [facility] ([facility]) [address] [place], [address], 12/06/2023 16:10:27 12/04/19 24 12/05/2023 CBC WITH DIFFE RENTI AL/PL ATELE T MCH 29.2 pg 26.6-3 3.0 Not Available [facility] ([facility]) [address] [place], [address], 12/06/2023 16:10:27 12/04/19 24 12/05/2023 CBC WITH DIFFE RENTI AL/PL ATELE T MCHC 32.8 g/dL 31.5-3 5.7 Not Available [facility] ([facility]) [address] [place], [address], 12/06/2023 16:10:27 12/04/19 24 12/05/2023 CBC WITH DIFFE RENTI AL/PL ATELE T RDW 12.7 % 11.6-1 5.4 Not Available [facility] ([facility]) [address] [place], [address], 12/06/2023 16:10:27 12/04/19 24 12/05/2023 CBC WITH DIFFE RENTI AL/PL ATELE T platelets 237 x10e3 /uL 150-45 0 Not Available [facility] ([facility]) [address] [facility], [place], [address], 12/06/2023 16:10:27 12/04/19 24 12/05/2023 CBC WITH DIFFE RENTI AL/PL ATELE T neutrophils 44 % not estab. Not Available [facility] ([facility]) [address] [facility], [place], [address], 12/06/2023 16:10:27 12/04/19 24 12/05/2023 CBC WITH DIFFE RENTI AL/PL ATELE T lymphs 42 % not estab. Not Available [facility] ([facility]) [address] [facility], [place], [address], 12/06/2023 16:10:27 12/04/19 24 12/05/2023 CBC WITH DIFFE RENTI AL/PL ATELE T monocytes 11 % not estab. Not Available [facility] ([facility]) [address] [facility], [place], [address], 12/06/2023 16:10:27 12/04/19 24 12/05/2023 CBC WITH DIFFE RENTI AL/PL ATELE T eos 2 % not estab. Not Available [facility] ([facility]) [address] [facility], [place], [address], 12/06/2023 16:10:27 12/04/19 24 12/05/2023 CBC WITH DIFFE RENTI AL/PL ATELE T basos 1 % not estab. Not Available [facility] ([facility]) [address] [facility], [place], [address], 12/06/2023 16:10:27 12/04/19 24 12/05/2023 CBC WITH DIFFE RENTI AL/PL ATELE T immature cells NIGHT COORDINATOR Not Available [facility] ([facility]) [address] [facility], [place], [address], 12/06/2023 16:10:27 12/04/19 24 12/05/2023 CBC WITH DIFFE RENTI AL/PL ATELE T neutrophils (absolute) 2.0 x10e3 /uL 1.4-7. 0 Not Available [facility] ([facility]) [address] [facility], [place], [address], 12/06/2023 16:10:27 12/04/19 24 12/05/2023 CBC WITH DIFFE RENTI AL/PL ATELE T lymphs (absolute) 2.0 x10e3 /uL 0.7-3. 1 Not Available [facility] ([facility]) [address] [facility], [place], [address], 12/06/2023 16:10:27 12/04/19 24 12/05/2023 CBC WITH DIFFE RENTI AL/PL ATELE T monocytes(ab solute) 0.5 x10e3 /uL 0.1-0. 9 Not Available [facility] ([facility]) [address] [place], [address], 12/06/2023 16:10:27 12/04/19 24 12/05/2023 CBC WITH DIFFE RENTI AL/PL ATELE T eos (absolute) 0.1 x10e3 /uL 0.0-0. 4 Not Available [facility] ([facility]) [address] [place], [address], 12/06/2023 16:10:27 12/04/19 24 12/05/2023 CBC WITH DIFFE RENTI AL/PL ATELE T baso (absolute) 0.0 x10e3 /uL 0.0-0. 2 Not Available [facility] ([facility]) [address] [place], [address], 12/06/2023 16:10:27 12/04/19 24 12/05/2023 CBC WITH DIFFE RENTI AL/PL ATELE T immature granulocytes 0 % not estab. Not Available [facility] ([facility]) [address] [facility], [place], [address], 12/06/2023 16:10:27 12/04/19 24 12/05/2023 CBC WITH DIFFE RENTI AL/PL ATELE T immature grans (abs) 0.0 x10e3 /uL 0.0-0. 1 Not Available [facility] ([facility]) [address] [facility], [place], [address], 12/06/2023 16:10:27 12/04/19 24 12/05/2023 CBC WITH DIFFE RENTI AL/PL ATELE T NRBC NIGHT COORDINATOR Not Available [facility] ([facility]) [address] [facility], [place], [address], 12/06/2023 16:10:27 12/04/19 24 12/05/2023 CBC WITH DIFFE RENTI AL/PL ATELE T hematology comments: NIGHT COORDINATOR Not Available [facility] ([facility]) [address] [facility], [place], [address], 12/06/2023 16:10:27 12/04/19 24 12/05/2023 COMP. METAB OLIC PANEL (14) glucose 73 mg/dL 70-99 Not Available [facility] ([facility]) [address] [facility], [place], [address], 12/06/2023 16:10:28 12/04/19 24 12/05/2023 COMP. METAB OLIC PANEL (14) BUN 12 mg/dL 8-27 Not Available [facility] ([facility]) [address] [facility], [place], [address], 12/06/2023 16:10:28 12/04/19 24 12/05/2023 COMP. METAB OLIC PANEL (14) creatinine 1.04 mg/dL 0.76-1 .27 Not Available [facility] ([facility]) [address], [place], [address], 12/06/2023 16:10:28 12/04/19 24 12/05/2023 COMP. METAB OLIC PANEL (14) eGFR 75 mL/mi n/1.7 3 >59 Not Available [facility] ([facility]) [address] [place], [address], 12/06/2023 16:10:28 12/04/19 24 12/05/2023 COMP. METAB OLIC PANEL (14) BUN/creatini ne ratio 12 - Not Available [facility] ([facility]) [address], [place], [address], 12/06/2023 16:10:28 12/04/19 24 12/05/2023 COMP. METAB OLIC PANEL (14) sodium 141 mmol/ L 134-14 4 Not Available [facility] ([facility]) [address] [place], [address], 12/06/2023 16:10:28 12/04/19 24 12/05/2023 COMP. METAB OLIC PANEL (14) potassium 4.3 mmol/ L 3.5-5. 2 Not Available [facility] ([facility]) [address] [place], [address], 12/06/2023 16:10:28 12/04/19 24 12/05/2023 COMP. METAB OLIC PANEL (14) chloride 104 mmol/ L 96-106 Not Available [facility] ([facility]) [address] [place], [address], 12/06/2023 16:10:28 12/04/19 24 12/05/2023 COMP. METAB OLIC PANEL (14) carbon dioxide, total 23 mmol/ L 20-29 Not Available [facility] ([facility]) [address] [facility] [place], [address], 12/06/2023 16:10:28 12/04/19 24 12/05/2023 COMP. METAB OLIC PANEL (14) calcium 9.0 mg/dL 8.6-10 .2 Not Available [facility] ([facility]) [address] [facility], [place], [address], 12/06/2023 16:10:28 12/04/19 24 12/05/2023 COMP. METAB OLIC PANEL (14) protein, total 7.3 g/dL 6.0-8. 5 Not Available [facility] ([facility]) [address] [facility], [place], [address], 12/06/2023 16:10:28 12/04/19 24 12/05/2023 COMP. METAB OLIC PANEL (14) albumin 4.2 g/dL 3.8-4. 8 Not Available [facility] ([facility]) [address] [facility], [place], [address], 12/06/2023 16:10:28 12/04/19 24 12/05/2023 COMP. METAB OLIC PANEL (14) globulin, total 3.1 g/dL 1.5-4. 5 Not Available [facility] ([facility]) [address] [facility], [place], [address], 12/06/2023 16:10:28 12/04/19 24 12/05/2023 COMP. METAB OLIC PANEL (14) A/G ratio 1.4 1.2-2. 2 Not Available [facility] ([facility]) [address] [facility], [place], [address], 12/06/2023 16:10:28 12/04/19 24 12/05/2023 COMP. METAB OLIC PANEL (14) bilirubin, total 0.4 mg/dL 0.0-1. 2 Not Available [facility] ([facility]) [address] [facility], [place], [address], 12/06/2023 16:10:28 12/04/19 24 12/05/2023 COMP. METAB OLIC PANEL (14) alkaline phosphatase 95 IU/L 44-121 Not Available [facility] ([facility]) [address] [facility], [place], [address], 12/06/2023 16:10:28 12/04/19 24 12/05/2023 COMP. METAB OLIC PANEL (14) AST (SGOT) 17 IU/L 0-40 Not Available [facility] ([facility]) [address] [facility], [place], [address], 12/06/2023 16:10:28 12/04/19 24 12/05/2023 COMP. METAB OLIC PANEL (14) ALT (SGPT) 14 IU/L 0-44 Not Available [facility] ([facility]) [address] [facility], [place], [address], 12/06/2023 16:10:28 12/04/19 24 12/05/2023 QUANT IFERO N-TB GOLD PLUS quantiferon incubation INCUBA TION PERFOR MED. Not Available [facility] ([facility]) [address] [facility], [place], [address], 12/06/2023 16:10:28 12/04/19 24 12/05/2023 QUANT IFERO N-TB GOLD PLUS quantiferon criteria COMMEN T Quant iFERO N-TB Gold Plus is a quali tativ e indir ect test for M tuber culos is infec tion (incl uding disea se) and is inten ded for use in conju nctio n with risk asses sment , radio graph y, and other medic al and diagn ostic evalu ation s. The Quant iFERO N-TB Gold Plus resul t is deter mined by subtr actin g the Nil value from eithe r TB antig en (Ag) value . The Mitog en tube serve s as a contr ol for the test. Not Available [facility] ([facility]) [address] [facility], [place], [address], 12/06/2023 16:10:28 12/04/19 24 12/06/2023 QUANT IFERO N-TB GOLD PLUS quantiferon TB1 Ag value 0.06 IU/mL Not Available [facility] ([facility]) [address] [place], [address], 12/06/2023 16:10:28 12/04/19 24 12/06/2023 QUANT IFERO N-TB GOLD PLUS quantiferon TB2 Ag value 0.06 IU/mL Not Available [facility] ([facility]) [address] [place], [address], 12/06/2023 16:10:28 12/04/19 24 12/06/2023 QUANT IFERO N-TB GOLD PLUS quantiferon nil value 0.05 IU/mL Not Available [facility] ([facility]) [address] [place], [address], 12/06/2023 16:10:28 12/04/19 24 12/06/2023 QUANT IFERO N-TB GOLD PLUS quantiferon mitogen value >10.00 IU/mL Not Available [facility] ([facility]) [address] [place], [address], 12/06/2023 16:10:28 12/04/19 24 12/06/2023 QUANT IFERO N-TB GOLD PLUS quantiferon- TB gold plus NEGATI VE negati ve No respo nse to M beverly hayesos is antig ens detec radha. Infec tion with M beverly hayesos is is unlik rubén, but high risk indiv idual s shoul d be consi dered for addit ional testi ng (ATS/ IDSA/ CDC Clini reuben Pract ice Guide lines , 2017) . The refer ence range is an Antig en minus Nil resul t of <0.35 IU/mL . Chemi lumin escen ce immun oassa y metho dolog y Not Available [facility] ([facility]) [address] [place], [address], 12/06/2023 16:10:28 12/04/19 24 12/05/2023 HEPAT ITIS B SURF AB QUANT hepatitis B surf Ab quant <3.1 mIU/m L immuni ty>9.9 below low normal Statu s of Immun ity Anti- HBs Level ----- ----- ----- --- ----- ----- ---- Incon siste nt with Immun ity 0.0 - 9.9 Consi stent with Immun ity >9.9 Not Available [facility] ([facility]) [address] [facility], [place], [address], 12/06/2023 16:10:29 12/04/19 24 12/05/2023 VITAM IN D, 25-HY DROXY vitamin D, 25-hydroxy 70.6 NG/mL 30.0-1 00.0 Vitam in D defic iency has been defin ed by the Insti tute of Medic ine and an Endoc rine Socie ty pract ice guide line as a level of serum 25-OH vitam in D less than 20 ng/mL (1,2) . The Endoc rine Socie ty went on to furth er defin e vitam in D insuf ficie ncy as a level betwe en 21 and 29 ng/mL (2). 1. IOM (Inst itute of Medic ine). 2010. Whitney ry refer ence valdemar es for calci um and D. Fuentes hein [place]: The Natio nal [facility] Press . 2. Radames valdez [place], Ijeoma chau [place], Renetta off-F errar i BAUTISTA, et al. Evalu ation , treat ment, and preve ntion of vitam in D defic iency : an Endoc rine Socie ty clini reuben pract ice guide line. JCEM. 2010; 96(7) :1911 -30. Not Available [facility] ([facility]) [address] [facility], [place], [address], 12/06/2023 16:10:30 12/04/19 24 12/05/2023 SEDIM ENTAT ION RATE- WESTE RGREN sedimentatio n rate-westerg ahmet 29 mm/HR 0-30 Not Available [facility] ([facility]) [address] [facility], [place], [address], 12/06/2023 16:10:31 12/04/19 24 12/05/2023 HBSAG SCREE N HBsAg screen NEGATI VE negati ve Not Available [facility] ([facility]) [address] [facility], [place], [address], 12/06/2023 16:10:32 12/04/19 24 12/05/2023 C-ANN MARIE CTIVE PROTE IN, QUANT C-reactive protein, quant <1 mg/L 0-10 Not Available [facility] ([facility]) [address] [facility], [place], [address], 12/06/2023 16:10:32 06/07/20 24 06/08/2024 CBC WITH DIFFE RENTI AL/PL ATELE T WBC 5.4 x10e3 /uL 3.4-10 .8 normal Not Available [facility] ([facility]) [address] [facility], [place], [address], 06/08/2024 16:13:11 06/07/20 24 06/08/2024 CBC WITH DIFFE RENTI AL/PL ATELE T RBC 5.09 x10e6 /uL 4.14-5 .80 normal Not Available [facility] ([facility]) [address] [facility], [place], [address], 06/08/2024 16:13:11 06/07/20 24 06/08/2024 CBC WITH DIFFE RENTI AL/PL ATELE T hemoglobin 15.2 g/dL 13.0-1 7.7 normal Not Available [facility] ([facility]) [address] [place], [address], 06/08/2024 16:13:11 06/07/20 24 06/08/2024 CBC WITH DIFFE RENTI AL/PL ATELE T hematocrit 45.3 % 37.5-5 1.0 normal Not Available [facility] ([facility]) [address] [facility], [place], [address], 06/08/2024 16:13:11 06/07/20 24 06/08/2024 CBC WITH DIFFE RENTI AL/PL ATELE T MCV 89 fL 79-97 normal Not Available [facility] ([facility]) [address] [facility], [place], [address], 06/08/2024 16:13:11 06/07/20 24 06/08/2024 CBC WITH DIFFE RENTI AL/PL ATELE T MCH 29.9 pg 26.6-3 3.0 normal Not Available [facility] ([facility]) [address] [facility], [place], [address], 06/08/2024 16:13:11 06/07/20 24 06/08/2024 CBC WITH DIFFE RENTI AL/PL ATELE T MCHC 33.6 g/dL 31.5-3 5.7 normal Not Available [facility] ([facility]) [address] [facility], [place], [address], 06/08/2024 16:13:11 06/07/20 24 06/08/2024 CBC WITH DIFFE RENTI AL/PL ATELE T RDW 12.2 % 11.6-1 5.4 Not Available [facility] ([facility]) [address] [place], [address], 06/08/2024 16:13:11 06/07/20 24 06/08/2024 CBC WITH DIFFE RENTI AL/PL ATELE T platelets 245 x10e3 /uL 150-45 0 normal Not Available [facility] ([facility]) [address] [place], [address], 06/08/2024 16:13:11 06/07/20 24 06/08/2024 CBC WITH DIFFE RENTI AL/PL ATELE T neutrophils 54 % not estab. normal Not Available [facility] ([facility]) [address] [facility], [place], [address], 06/08/2024 16:13:11 06/07/20 24 06/08/2024 CBC WITH DIFFE RENTI AL/PL ATELE T lymphs 35 % not estab. normal Not Available [facility] ([facility]) [address] [facility], [place], [address], 06/08/2024 16:13:11 06/07/20 24 06/08/2024 CBC WITH DIFFE RENTI AL/PL ATELE T monocytes 9 % not estab. normal Not Available [facility] ([facility]) [address] [facility], [place], [address], 06/08/2024 16:13:11 06/07/20 24 06/08/2024 CBC WITH DIFFE RENTI AL/PL ATELE T eos 1 % not estab. normal Not Available [facility] ([facility]) [address] [facility], [place], [address], 06/08/2024 16:13:11 06/07/20 24 06/08/2024 CBC WITH DIFFE RENTI AL/PL ATELE T basos 1 % not estab. normal Not Available [facility] ([facility]) [address] [facility], [place], [address], 06/08/2024 16:13:11 06/07/20 24 06/08/2024 CBC WITH DIFFE RENTI AL/PL ATELE T immature cells NIGHT COORDINATOR Not Available [facility] ([facility]) [address] [facility], [place], [address], 06/08/2024 16:13:11 06/07/20 24 06/08/2024 CBC WITH DIFFE RENTI AL/PL ATELE T neutrophils (absolute) 2.8 x10e3 /uL 1.4-7. 0 normal Not Available [facility] ([facility]) [address] [facility], [place], [address], 06/08/2024 16:13:11 06/07/20 24 06/08/2024 CBC WITH DIFFE RENTI AL/PL ATELE T lymphs (absolute) 1.9 x10e3 /uL 0.7-3. 1 normal Not Available [facility] ([facility]) [address] [facility], [place], [address], 06/08/2024 16:13:11 06/07/20 24 06/08/2024 CBC WITH DIFFE RENTI AL/PL ATELE T monocytes(ab solute) 0.5 x10e3 /uL 0.1-0. 9 normal Not Available [facility] ([facility]) [address] [facility], [place], [address], 06/08/2024 16:13:11 06/07/20 24 06/08/2024 CBC WITH DIFFE RENTI AL/PL ATELE T eos (absolute) 0.1 x10e3 /uL 0.0-0. 4 normal Not Available [facility] ([facility]) [address] [facility], [place], [address], 06/08/2024 16:13:11 06/07/20 24 06/08/2024 CBC WITH DIFFE RENTI AL/PL ATELE T baso (absolute) 0.1 x10e3 /uL 0.0-0. 2 normal Not Available [facility] ([facility]) [address] [place], [address], 06/08/2024 16:13:11 06/07/20 24 06/08/2024 CBC WITH DIFFE RENTI AL/PL ATELE T immature granulocytes 0 % not estab. Not Available [facility] ([facility]) [address] [facility], [place], [address], 06/08/2024 16:13:11 06/07/20 24 06/08/2024 CBC WITH DIFFE RENTI AL/PL ATELE T immature grans (abs) 0.0 x10e3 /uL 0.0-0. 1 Not Available [facility] ([facility]) [address] [facility], [place], [address], 06/08/2024 16:13:11 06/07/20 24 06/08/2024 CBC WITH DIFFE RENTI AL/PL ATELE T NRBC NIGHT COORDINATOR Not Available [facility] ([facility]) [address] [facility], [place], [address], 06/08/2024 16:13:11 06/07/20 24 06/08/2024 CBC WITH DIFFE RENTI AL/PL ATELE T hematology comments: NIGHT COORDINATOR Not Available [facility] ([facility]) [address] [facility], [place], [address], 06/08/2024 16:13:11 06/07/20 24 06/08/2024 COMP. METAB OLIC PANEL (14) glucose 83 mg/dL 70-99 normal Not Available [facility] ([facility]) [address] [facility], [place], [address], 06/08/2024 16:13:13 06/07/20 24 06/08/2024 COMP. METAB OLIC PANEL (14) BUN 16 mg/dL 8-27 normal Not Available [facility] ([facility]) [address] [facility], [place], [address], 06/08/2024 16:13:13 06/07/20 24 06/08/2024 COMP. METAB OLIC PANEL (14) creatinine 0.94 mg/dL 0.76-1 .27 normal Not Available [facility] ([facility]) [address] [place], [address], 06/08/2024 16:13:13 06/07/20 24 06/08/2024 COMP. METAB OLIC PANEL (14) eGFR 85 mL/mi n/1.7 3 >59 normal Not Available [facility] ([facility]) [address] [place], [address], 06/08/2024 16:13:13 06/07/20 24 06/08/2024 COMP. METAB OLIC PANEL (14) BUN/creatini ne ratio 17 10-24 normal Not Available [facility] ([facility]) [address] [facility] [place], [address], 06/08/2024 16:13:13 06/07/20 24 06/08/2024 COMP. METAB OLIC PANEL (14) sodium 141 mmol/ L 134-14 4 normal Not Available [facility] ([facility]) [address] [place] [place], [address], 06/08/2024 16:13:13 06/07/20 24 06/08/2024 COMP. METAB OLIC PANEL (14) potassium 4.4 mmol/ L 3.5-5. 2 normal Not Available [facility] ([facility]) [address] [facility], [place], [address], 06/08/2024 16:13:13 06/07/20 24 06/08/2024 COMP. METAB OLIC PANEL (14) chloride 105 mmol/ L 96-106 normal Not Available [facility] ([facility]) [address] [place] [place], [address], 06/08/2024 16:13:13 06/07/20 24 06/08/2024 COMP. METAB OLIC PANEL (14) carbon dioxide, total 23 mmol/ L 20-29 normal Not Available [facility] ([facility]) [address] [place] [place], [address], 06/08/2024 16:13:13 06/07/20 24 06/08/2024 COMP. METAB OLIC PANEL (14) calcium 8.6 mg/dL 8.6-10 .2 normal Not Available [facility] ([facility]) [address] [place] [place], [address], 06/08/2024 16:13:13 06/07/20 24 06/08/2024 COMP. METAB OLIC PANEL (14) protein, total 7.2 g/dL 6.0-8. 5 normal Not Available [facility] ([facility]) [address], [place], [address], 06/08/2024 16:13:13 06/07/20 24 06/08/2024 COMP. METAB OLIC PANEL (14) albumin 4.0 g/dL 3.8-4. 8 normal Not Available [facility] ([facility]) [address] [place], [address], 06/08/2024 16:13:13 06/07/20 24 06/08/2024 COMP. METAB OLIC PANEL (14) globulin, total 3.2 g/dL 1.5-4. 5 Not Available [facility] ([facility]) [address] [place] [place], [address], 06/08/2024 16:13:13 06/07/20 24 06/08/2024 COMP. METAB OLIC PANEL (14) bilirubin, total 0.3 mg/dL 0.0-1. 2 normal Not Available [facility] ([facility]) [address] [facility], [place], [address], 06/08/2024 16:13:13 06/07/20 24 06/08/2024 COMP. METAB OLIC PANEL (14) alkaline phosphatase 92 IU/L 44-121 normal Not Available [facility] ([facility]) [address] [facility] [place], [address], 06/08/2024 16:13:13 06/07/20 24 06/08/2024 COMP. METAB OLIC PANEL (14) AST (SGOT) 15 IU/L 0-40 normal Not Available [facility] ([facility]) [address] [facility] [place], [address], 06/08/2024 16:13:13 06/07/20 24 06/08/2024 COMP. METAB OLIC PANEL (14) ALT (SGPT) 11 IU/L 0-44 normal Not Available [facility] ([facility]) [address] [facility], [place], [address], 06/08/2024 16:13:13 06/07/20 24 06/08/2024 VITAM IN D, 25-HY DROXY vitamin D, 25-hydroxy 65.3 NG/mL 30.0-1 00.0 Vitam in D defic iency has been defin ed by the Insti tute of Medic ine and an Endoc rine Socie ty pract ice guide line as a level of serum 25-OH vitam in D less than 20 ng/mL (1,2) . The Endoc rine Socie ty went on to furth er defin e vitam in D insuf ficie ncy as a level betwe en 21 and 29 ng/mL (2). 1. IOM (Inst itute of Medic ine). 2009. Dieta ry refer ence intak es for calci um and D. Fuentes hein [place]: [facility] . 2. Radames valdez MF, Ijeoma chau [place], Renetta off-F thomas i BAUTISTA, et al. Evalu ation , treat ment, and preve ntion of vitam in D defic iency : an Endoc rine Socie ty clini reuben pract ice guide line. JCEM. 2010; 96(7) :1911 -30. Not Available [facility] ([facility]) [address] [facility], [place], [address], 06/08/2024 16:13:14 06/07/20 24 06/08/2024 SEDIM ENTAT ION RATE- WESTE RGREN sedimentatio n rate-westerg ahmet 35 mm/HR 0-30 above high normal Not Available [facility] ([facility]) [address] [facility], [place], [address], 06/08/2024 16:13:15 06/07/20 24 06/08/2024 C-ANN MARIE CTIVE PROTE IN, QUANT C-reactive protein, quant 2 mg/L 0-10 normal Not Available [facility] ([facility]) [address] [facility], [place], [address], 06/08/2024 16:13:16 06/07/20 24 06/07/2024 PLEAS E NOTE please note Commen t The date and/o r time of colle ction was not indic ated on the requi sitio n as requi red by state and rocio al law. The date of recei pt of the speci men was used as the colle ction date if not suppl ied. Not Available [facility] ([facility]) [address] [facility], [place], [address], 06/08/2024 16:13:17 Result Notes None recorded. Problems Name Problem SNOMED Code Status Onset Date Resolution Date Notes Provider Name and Address Organization Details Recorded Time Constipation 81721773 Active 2023 Dewayne Michael PA-C [address] , [place], [address] , [facility] & [place] 4 14:11:57 Ulcerative colitis 22092864 Active 2023 Dewayne Michael PA-C [address] , [facility] [address] , [facility] & [place] 4 13:57:51 Acid reflux 646312924 Active 2023 Dewayne Michael PA-C [address] , [facility] [address] , [facility] & [place] 4 14:46:10 Problem Notes None recorded. Procedures Surgical History Date Name Laterality Status Provider Name and Address Organization Details Recorded Time Back Surgery completed Susu Parikh [facility] & [place] 12/04/2023 13:24:00 Imaging Results None recorded. Procedure Notes None recorded. Medical Equipment None Reported. Allergies No known drug allergies Medications Name Sig Start Date Stop Date Status Note LastModified by Organization Details LastModified Time levetiracet am 500 mg tablet active Not Available Not Available Not Available valacyclovi r 1 gram tablet TAKE 1 TABLET BY MOUTH THREE TIMES DAILY FOR 10 DAYS active Not Available Not Available No t Available prednisone 20 mg tablet TAKE 2 TABLETS BY MOUTH ONCE A DAY IN AM WITH FOOD FOR 5 DAYS active Not Available Not Available No t Available clonazepam 0.5 mg tablet Take 1 tablet 3 times a day by oral route. active Not Available Not Available No t Available ciprofloxac in 250 mg tablet TAKE 1 TABLET BY MOUTH EVERY 12 HOURS FOR 14 DAYS active Not Available Not Available No t Available amlodipine 5 mg tablet TAKE 1 TABLET BY MOUTH EVERY DAY active Not Available Not Available No t Available ciprofloxac in 500 mg tablet TAKE 1 TABLET BY MOUTH EVERY 12 HOURS FOR 7 DAYS active Not Available Not Available No t Available baclofen 10 mg tablet active Not Available Not Available No t Available amlodipine 10 mg tablet Take 1 tablet every day by oral route. 06/07 completed Not Available Not Available Not Available Gentle Laxative (bisacodyl) 5 mg tablet,geoff yed release Take 2 tablets every day by oral route. active Not Available Not Available No t Available omeprazole 20 mg capsule,del ayed release TAKE 1 CAPSULE BY MOUTH EVERY DAY FOR STOMACH ACID OR REFLUX 2024 active Not Available Not Available Not Avai lable polyethylen e glycol 3350 17 gram/dose oral powder MIX 17 GRAMS WITH CLEAR LIQUID AND DRINK ONCE DAILY active Not Available Not Available No t Available carbidopa 25 mg-levodopa 100 mg tablet Take 1 tablet 3 times a day by oral route. active Not Available Not Available No t Available Citrucel (sucrose) oral powder mix 1 heaping tablespoo n in 8 oz of water and drink once daily, 30 days 2023 active Not Available Not Available Not Avai lable fluoxetine 20 mg capsule TAKE 1 CAPSULE BY MOUTH EVERY DAY active Not Available Not Available No t Available amoxicillin 875 mg-potassiu m clavulanate 125 mg tablet active Not Available Not Available Not Available nitrofurant oin monohydrate /macrocryst als 100 mg capsule TAKE 1 CAPSULE BY MOUTH EVERY 12 HOURS WITH FOOD FOR 7 DAYS active Not Available Not Available No t Available baclofen active Not Available Not Avai lable Not Available ciprofloxac in active Not Available Not Available Not Available levetiracet am 1,000 mg tablet Take 1 tablet every 12 hours by oral route. active Not Available Not Available No t Available ClearLax 17 gram oral powder packet Take by oral route. active Not Available Not Available No t Available ClearLax 12/03 completed Not Available Not Available Not Available Probiotic 12/03 completed Not Available Not Available Not Available Eliquis 2.5 mg tablet Take 1 tablet twice a day by oral route. active Not Available Not Available No t Available Probiotic (B. coagulans) 10 billion cell capsule,del ayed release Take by oral route. active Not Available Not Available No t Available Nuplazid 34 mg capsule active Not Available Not Available N ot Available vitamin D3 1,250 mcg (50,000 unit)-vitam in K2 200 mcg capsule Take by oral route. active Not Available Not Available No t Available Vitals Date Recorded Body height Body mass index (BMI) Body weight Body temperature Heart rate Heart rate Oxygen saturation Oxygen saturation in Arterial blood by Pulse oximetry Systolic blood pressure Diastolic blood pressure Provider Name and Address Organization Details Last Updated DateTime 175.26 cm 29.5 kg/m2 56135.4 7 g 97.6 [degF] 78 /min 78 /min 98 % 98 % 148 mm[Hg] 97 mm[Hg] Susu Parikh [facility] & [place] 13:19:28 Date Recorded Body height Heart rate Systolic blood pressure Diastolic blood pressure Provider Name and Address Organization Details Last Updated DateTime 06/07/2024 175.26 cm 87 /min 115 mm[Hg] 85 mm[Hg] Susu De Los Santos [facility] & [place] 06/07/2024 13:34:09 Social History Question Answer Notes LastModified by Organizat ion Details LastModified Time Tobacco Smoking Status Never Smoker Susu Parikh [facility] & [place] 12/04/2023 13:20:51 What Is Your Level Of Alcohol Consumption? Occasional [email or web address] Information not available 12/04/2023 What Is Your Level Of Caffeine Consumption? Moderate [email or web address] Information not available 12/04/2023 Do You Use Any Illicit Or Recreational Drugs? No [email or web address] Information not available 12/04/2023 Sex: Unknown Functional Status None recorded. Mental Status None recorded. Family History Nothing Reported. Medical History No medical history recorded. Past Encounters Encounter ID Performer Location Encounter Start Date Encounter Closed Date Diagnosis/Indication Diagnosis SNOMED-CT Code Diagnosis ICD10 Code Diagnosis Note [id number] Dewayne Michael PA-C [facility] [address] [place] [address] 12/04/2023 13:05:56 12/04/2023 15:14:41 Ulcerative colitis 16243404 K51.90 Acid reflux 974247232 K2 1.9 [id number] Dewayne Michael PA-C [facility] [address] [address] 06/07/2024 13:06:35 06/07/2024 14:43:37 Ulcerative colitis 99472124 K51.90 Acid reflux 771119164 K2 1.9 Constipation 92299277 K5 9.00 Health Concerns Section Related Observation LastModified by Organization Detai ls LastModified Time None Recorded Concern Status LastModified by Organization Details LastModified Time None Recorded Advance Directives Directive None Recorded Payers Insurance Date Sequence Insurance Name Policy Number Policy Sparks Covered Member ID Sparks Member ID Guarantor Name 06/07/2024 1 [place]ARE[place]ARE[place] Simba Cuevas [id number] Simba Cuevas 06/29/2024 2 [employer] - FOR LIFE (MEDICARE SUPPLEMENT) Simba Cuevas [id number] Simba Cuevas Notes Date Note Type Note Provider Name and Address Organization Details Recorded Time 12/04/2023 text/html Mr. Cuevas is a evens hernandezy ashley 73-year-old male with past medical history significant for Parkinson's disease, spinal stenosis s/p laminectomy, RA, SAM, colon polyps, chronic gastric ulcer, and ulcerative pancolitis diagnosed in 2007 who presents to establish care for UC. He has previously been managed by GI but wishes to transition care to our clinic. Currently, he is feeling well. He was diagnosed with ulcerative colitis in 2007. Colonoscopy from June 14, 2019 did not show evidence of active UC. A sessile serrated adenoma was removed from the descending colon at that time as well as a hyperplastic polyp in the rectum. At the time of colonoscopy he was managed with 10 milligrams/kilogram of infliximab every 8 weeks. However, his treatment was then transitioned to Entyvio in 2019 after Mr. Cuevas underwent back surgery. He has continued Entyvio infusions every 8 weeks and receives the infusions at [facility]. He reports occasional constipation and takes miralax once daily as well as 5 mg of oral bisacodyl at bedtime. He has soft to loose BMs once every few days. He denies rectal bleeding or abdominal pain. He has deferred further colonoscopies due to dependency on an electric wheelchair and difficulty tolerating the preparation. He states he did have a cologard in 2021 that was negative.Additional ly, his states that he is having some intermittent coughing and halitosis and is concerned he may be having reflux. He was previously on a PPI and did not seem to have the problem at that time, but it has since been stopped. Deawyne Michael PA-C [address] [facility], [place], [address], [place] [facility] & [place] 12/04/2023 22:10:36 06/07/2024 text/html PREVIOUS (12/04/23 ): Mr. Cuevas is a very pleasant 73-year-old male with past medical history significant for Parkinson's disease, spinal stenosis s/p laminectomy, RA, SAM, colon polyps, chronic gastric ulcer, and ulcerative pancolitis diagnosed in 2007 who presents to establish care for UC. He has previously been managed by GI but wishes to transition care to our clinic. Currently, he is feeling well. He was diagnosed with ulcerative colitis in 2007. Colonoscopy from June 14, 2019 did not show evidence of active UC. A sessile serrated adenoma was removed from the descending colon at that time as well as a hyperplastic polyp in the rectum. At the time of colonoscopy he was managed with 10 milligrams/kilogram of infliximab every 8 weeks. However, his treatment was then transitioned to Entyvio in 2019 after Mr. Cuevas underwent back surgery. He has continued Entyvio infusions every 8 weeks and receives the infusions at [facility]. He reports occasional constipation and takes miralax once daily as well as 5 mg of oral bisacodyl at bedtime. He has soft to loose BMs once every few days. He denies rectal bleeding or abdominal pain. He has deferred further colonoscopies due to dependency on an electric wheelchair and difficulty tolerating the preparation. He states he did have a cologard in 2021 that was negative.Additional ly, his states that he is having some intermittent coughing and halitosis and is concerned he may be having reflux. He was previously on a PPI and did not seem to have the problem at that time, but it has since been stopped. CURRENT (06/07/24): Mr. Cuevas returns to the office today for 6 month follow-up regarding ulcerative colitis. He has continued q8 week Entyvio infusions at [facility]. He complains of of intermittent constipation and gas. He denies abdominal pain, diarrhea, or bloody stools. He is taking Miralax as needed and will go 3-4 days between BMs despite this, then will eventually have a large amount of soft to liquid stools. Dewayne Michael PA-C [address] , [place], [address], [facility] [place] - [place] & [place] 06/07/2024 18:39:06
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
[2024-12-01] MEDS: VEDOLIZUMAB 300 MG in 0.9 % SODIUM CHLORIDE 250 ML 500 MG IV (12:40)
[2024-12-01] MEDS: SODIUM CHLORIDE 0.9% 50ML BAG 50 ML IV (12:40)
[2024-12-01 12:45] VITALS: BP 155/82; PULSE 97; RESP 17
[2024-12-01 13:20] VITALS: BP 130/72; PULSE 112; RESP 16
== END 2024-12-01 13:35 | disposition home or self-care (01) ==
LOC: INF 12:16
PROVIDERS: PCP Family Medicine; Visit Provider Physician Assistant
DX: K51.90 Ulcerative colitis, unspecified, without complications (principal)
CPT/HCPCS: 96413; J3380

== ENCOUNTER 2025-01-27 13:03 | Outpatient (CLI) | payer MEDICARE, OTHER, SELFPAY ==
--- OUTSIDE RECORDS SUMMARY | 2025-01-27 13:06 | XMS_ITS | Continuity of Care Document ---
Author Name [facility] Organization [facility] Care Team Providers Care Return Agent Airport Name Role Phone [facility] Unavailable Unavailable Medications Combined list of outpatient medications from Department of Defense and Veterans Affairs facilities.Medications provided include 1) outpatient medications from the last 15 months, and 2) patient-reported medications. Medication Details Route Status Patient Instructions Prescription Expires Prescription Number Last Dispense Date Ordering Provider Order Date Order Qty Source BACLOFEN (BACLOFEN), 10 MG, TABLET, ORAL, MARLEX PHARM., 100 ea. BOTTLE Cancele d [id number] : 2023 0 Pharmac y Data Transac tion Service Facilit y CIPROFLOXAC IN HCL (CIPROFLOXA LISSA HCL), 250 MG, TABLET, ORAL, PACK PHARMACEUT, 100 ea. BOTTLE Active [id number] 4 2023 28 Pharmac y Data Transac tion Service Facilit y CLONAZEPAM (clonazepam ), 0.5 MG, TABLET, ORAL, AUROBINDO PHARM, 1000 ea. BOTTLE Cancele d [id number] : 2023 0 Pharmac y Data Transac tion Service Facilit y FLUOXETINE HCL (FLUOXETINE HCL), 20MG, CAPSULE, ORAL, PLIVA, INC, 1000 ea. BOTTLE Cancele d [id number] : 2023 0 Pharmac y Data Transac tion Service Facilit y NUPLAZID (pimavanser in tartrate), 34 MG, CAPSULE, ORAL, ACADIA PHARMACE, 30 ea. BOTTLE Cancele d [id number] : 2023 0 Pharmac y Data Transac tion Service Facilit y OMEPRAZOLE (omeprazole ), 20 MG, CAPSULE DR, ORAL, Intentiva PHARMA, 1000 ea. BOTTLE Active [id number] 4 2023 90 Pharmac y Data Transac tion Service Facilit y Social History Combined list of available smoking, tobacco, and other social history from Department of Defense and Veterans Affairs facilities. Social History Type Response Date Comment Sour e This section is an empty social history section. DoD
--- OUTSIDE RECORDS SUMMARY | 2025-01-27 13:07 | XMS_ITS | Encounter Summary ---
Author Organization [employer] ([place], [place], [place], [place]) Address [address] [place] [address] Care Team Providers Care Mma Fighter Name Role Phone Unavailable Primary Care Provider Unavailabl e Encounter Details Date Type Department Care Team (Late st Contact Info) Description 12/24/2018 Transcribed Document [facility] [place] [facility] [place] [address] ProviderAgnieszka MD [address] [place] [address] Social History Tobacco Use Types Packs/Day Years Used Date Smoking Tobacco: Never Assessed Sex and Gender Information Value Date Recorded Sex Assigned at Not on file Legal Sex Male 2:38 PM CDT Gender Identity Not on file Sexual Orientation Not on file documented as of this encounter Miscellaneous Notes * Cerner Conversion Note - Agnieszka ProviderMD - 12/24/2018 3:42 PM CDT [address] [address] Patient Copy Patient Information: Name: SIMBA MAYEN JR Current Date: 12/24/2018 15:42:15 : 1950 Patient Address: [address] [place] [id number] Patient Attending Physician: [facility] KAT [facility] Primary Care Provider: NOAH NUNEZ MD Primary Care Provider Discharge Diagnosis: Lumbar spine scoliosis; Lumbar stenosis Weight on Admission: 409 lb, 3 oz Comment: Follow-up Instructions: With: Address: When: HEIDE KAT [address] [facility] [place] [address] Business (1) Within 1 month Comments: with x rays With: Address: When: HEIDE KAT [address] [facility], [address] [place], [place] [id number] Business (1) Within 2 weeks Comments: staple removal Discharge Instructions: Immunizations Documented During Stay: No Immunizations Found Heart Failure Discharge Instructions (if any): Stroke Related Discharge Instructions (if any): Warfarin Related Discharge Instructions (if any): Final Medication List: Other Medications acetaminophen-oxyCODONE (Percocet 7.5/325 oral tablet) 1 Tablet(s) Oral Every 6 Hours as needed for pain. Refills: 0. azaTHIOprine (Imuran) Every 8 Weeks. every 8 weeks at hospital last dose 11/29/2018. carbidopa-levodopa (carbidopa-levodopa 25 mg-100 mg oral tablet) 1 Tablet(s) Oral Four Times A Day. omeprazole (omeprazole 20 mg oral delayed release capsule) 1 Capsule(s) Oral Every Day. before a meal. pramipexole (Mirapex ER 4.5 mg oral tablet, extended release) Oral Every Day. rasagiline (Azilect 1 mg oral tablet) 1 Tablet(s) Oral Every Day. Patient Allergies: No Known Medication Allergies Medication Instructions: Take your medications faithfully. Do NOT skip medication. Do NOT stop taking medications without the direction of a physician. Carry a list of your medications with you at all times, and take this medication list with you to your first follow up visit. Report any side effects. Avoid herbal remedies unless discussed with your physician. As part of your treatment plan, your physician may have prescribed a limited course of a controlled substance. This medication may be given to help people with moderate or severe pain or for other medical conditions, but there are risks involved with treatment. Common side effects may include nausea, constipation, drowsiness, sweating, itching, dry mouth, and rash. More serious side effects may include cognitive and motor impairment, like problems with thinking, concentrating, alertness, and movement (e.g. slowed reflexes), and driving and operating heavy machinery can be dangerous. It is important for you to talk to your physician if you have these side effects or questions. These controlled substances can produce physical dependence and be habit-forming if taken for an extended period of time, which means that the body has gotten used to them and may experience withdrawal symptoms if they are abruptly stopped. Withdrawal symptoms can include runny nose, sweating, goose bumps, diarrhea, abdominal cramping, rapid heartbeat, difficulty sleeping, and nervousness. CIGARETTE SMOKING: The facts are clear, cigarette smoking will shorten your life. Smoking can cause many illnesses along the way. As a healthcare provider, we recommend that you stop smoking. Assistance with quitting is available by contacting 7-918-FZWY-NOW. This is a free resource providing counseling, support, and referral. Or you may contact your personal physician. 4 WAYS TO GET AHEAD OF SEPSIS SEPSIS is a MEDICAL EMERGENCY. Time matters! Infections put you and your family at risk for a life-threatening condition called sepsis. Sepsis is the body???s extreme response to an infection. It is life-threatening, and without timely treatment, sepsis can rapidly lead to tissue damage, organ failure, and . Sepsis happens when an infection you already have???in your skin, lungs, urinary tract or somewhere else???triggers a chain reaction throughout your body. 1 PREVENT INFECTIONS Take good care of chronic conditions. Talk to your doctor about getting the recommended vaccines. 2 PRACTICE GOOD HYGIENE Wash your hands frequently. Keep cuts or open sores clean and covered until they are healed. 3 KNOW THE SYMPTOMS Confusion or disorientation Shortness of breath High heart rate Fever, shivering, or feeling very cold Extreme pain or discomfort Clammy or sweaty skin 4 ACT FAST Get medical care IMMEDIATELY if you suspect sepsis or if you have an infection that???s not getting better or is getting worse. To learn more about sepsis and how to prevent infections, visit www.cdc.gov/sepsis. STROKE is an EMERGENCY Every Minute Counts ACT F.A.S.T! FACE ?? Facial droop ?? Uneven smile ARM ?? Arm numbness ?? Arm weakness SPEECH ?? Slurred speech ?? Difficulty speaking or understanding TIME ?? Call 911 and get to the hospital immediately Have the ambulance go to the nearest stroke center. STROKE Risk Factors High blood pressure High cholesterol Heart Disease Diabetes Smoking Heavy alcohol use Physical inactivity and obesity Atrial Fibrillation (irregular heartbeat) Family history of stroke Reminder: Be sure to sign up for the [email or web address] patient portal, which gives you 17/02 access to your medical information ??? including these discharge instructions ??? using your computer, smartphone, or tablet. Just go to [employer] to get started. Questions? Call . [facility] would like to thank you for allowing us to assist you with your healthcare needs. FAHEEM Chan JR, KENNETH, (or patient accounting representative) have received the above patient education materials/instructions and have verbalized understanding: Patient Signature _ Date/Time Patient Surgical Supervisor Signature (if needed) Date/Time Clinician/Hospital Surgical Supervisor Signature (if needed) Date/Time documented in this encounter Plan of Treatment Not on file documented as of this encounter Visit Diagnoses Not on filedocumented in this encounter
--- OUTSIDE RECORDS SUMMARY | 2025-01-27 13:07 | XMS_ITS | Encounter Summary ---
Author Organization [employer] ([place], [place], [place], [place]) Address [address] [place] [address] Care Team Providers Care Sterilization Tech Name Role Phone Unavailable Primary Care Provider Unavailabl e Encounter Details Date Type Department Care Team (Late st Contact Info) Description 12/23/2018 Transcribed Document [facility] [place] [facility] [place] [address] ProviderAgnieszka MD [address] [place], [place] [id number] Social History Tobacco Use Types Packs/Day Years Used Date Smoking Tobacco: Never Assessed Sex and Gender Information Value Date Recorded Sex Assigned at Not on file Legal Sex Male 2:38 PM CDT Gender Identity Not on file Sexual Orientation Not on file documented as of this encounter Miscellaneous Notes * Cerner Conversion Note - Agnieszka ProviderMD - 12/23/2018 9:56 AM CDT Patient: SIMBA MAYEN JR Age: 68 years Sex: Male : 1950 Associated Diagnoses: None Author: ANITA PALOMARES NP-SABRA 12/23/18 cc: medical management - awaiting [id number] PLIF per Dr. Akers S: Doing fine No fevers, chills, sweats No shortness of breath, cough No Chest pain, palpitations, syncope No nausea, vomiting, -flatus, -BM +sotomayor anchored + post-op back pain HPI: Patient is a 68 yo male admitted to [facility] per Dr. Akers for a [id number] PLIF. Preoperatively patient was found to have advanced spondylolisthesis of the lumbar spine and elected surgical intervention after failing conservative treatment. Patient is followed perioperatively while hospitalized for medical managemen t. Past Med Hx: Arthritis Colitis DJD (degenerative joint disease) of thoracic spine History of obstructive sleep apnea Parkinson disease Scoliosis back pain with RLE radiculopathy Procedure history: right inguinal surgery 15 yrs ago. left inguinal hernia 4 yrs ago. bilat catarract surgery 2018. colonoscopy many times. Family Hx: not contributory Social & Psychosocial Habits Alcohol 12/16/2018 Alcohol Use History, Social Habits No Alcohol Use in Last Twelve Months No Substance Abuse 12/16/2018 Recreational Drug Use History No Recreational Drug Use Last 12 Months No Tobacco 12/16/2018 Smoking Status Never (less than 100 in l Smokeless Tobacco Status Never Allergies (1) Active Reaction No Known Medication Allergies None Documented Home Medications (6) Active carbidopa-levodopa 10 mg-100 mg oral tablet 1 Tab, Oral, QID Imuran meloxicam 7.5 mg oral tablet , Oral, Daily Mirapex ER 4.5 mg oral tablet, extended release , Oral, Daily omeprazole 20 mg oral delayed release capsule 20 mg = 1 Cap, Oral, Daily rasagiline , Oral, Daily Exam: Vitals Signs (last 24 hrs) Last Charted Minimum Maximum Temp 97.8 (DECEMBER 23 06:00) 97.8 (DECEMBER 23 06:00) 99 (DECEMBER 22 18:11) Mon HR 92 (DECEMBER 23 06:00) 66 (DECEMBER 22 20:15) 94 (DECEMBER 23 02:45) Resp Rate 16 (DECEMBER 23 06:00) L 5 (DECEMBER 22 18:11) 20 (DECEMBER 22 10:00) SBP 137 (DECEMBER 23 06:00) 102 (DECEMBER 22 18:30) H 155 (DECEMBER 22 10:00) DBP H 93 (DECEMBER 23 06:00) 60 (DECEMBER 22 18:15) H 96 (DECEMBER 22 10:00) MAP 101 (DECEMBER 23 02:45) 76 (DECEMBER 22 19:30) 101 (DECEMBER 22 18:50) SpO2 100 (DECEMBER 23 06:00) 95 (DECEMBER 22 21:00) 100 (DECEMBER 22 10:00) PE: PE: AA male, pleasant, cooperative, good historian, lethargic, laying in bed, daughter at bedsides pale pink conjunctiva, dry mucous membranes, no thyromegaly or cervical lymphadenopathy =expansion b/l , no wheezing or rhonchi, O2 applied non-displaced PMI, S1S2 ABD is soft non-tender, non-distended, hypoactive bowel sounds skin warm, dry without rashes ext: no low ext edema, no calf tenderness neuro: cn 2-12 intact; no gross motor -sensory deficits, slow to respond psych: flat affect and mood Data: Reviewed PRE-OP CBC and BMP from 12/16/18 CBC Results (Current Encounter/Past 24 Hours) WBC 9.0 K/uL 12/23/2018 03:50 Hct 37.0 % LOW 12/23/2018 03:50 Hgb 11.8 g/dL LOW 12/23/2018 03:50 Platelet Count 145 K/uL LOW 12/23/2018 03:50 Electrolytes(BMP) Results (Current Encounter/Past 24 Hours) Sodium Level 143 mmol/L 12/23/2018 04:01 Potassium Level 3.9 mmol/L 12/23/2018 04:01 Chloride Level 113 mmol/L OH 12/23/2018 04:01 Carbon Dioxide Level 25 mmol/L 12/23/2018 04:01 Anion Gap 9 12/23/2018 04:01 Blood Urea Nitrogen 13 mg/dL 12/23/2018 04:01 Glucose Level 100 mg/dL 12/23/2018 04:01 Calcium Level 7.3 mg/dL LOW 12/23/2018 04:01 Creatinine Level 0.90 mg/dL 12/23/2018 04:01 Impression: spondylolisthesis Lspine; awaiting [id number] PLIF per Dr. Akers hx Arthritis hx Colitis hx DJD (degenerative joint disease) of thoracic spine History of obstructive sleep apnea hx Parkinson disease hx Scoliosis hx back pain with RLE radiculopathy hx right inguinal surgery 15 yrs ago. hx left inguinal hernia 4 yrs ago. hx bilat catarract surgery 2018. hx colonoscopy many times. Plan: wean O2 for sat >92% DC sotomayor this evening limit narcs- watch sedation level Monitor HTN; add PRN's, hold parameters bowel regimen incentive spirometer-encouraged use PT/OT DVT prophylaxis per surgeon Pain management deferred to surgeon will monitor hb/hct daily for signs of ongoing acute blood loss will monitor bun/cr daily for signs of dehydration, prerenal azotemia will monitor for signs/symptoms of post-op wound infection or hospital acquired infectious process resume outpatient medication regimen for comorbidities post-op Assessment and treatment plan made in conjunction with Joselyn Salcido MD Health Status Allergies: Allergic Reactions (Selected) No Known Medication Allergies, Allergies (1) Active Reaction No Known Medication Allergies None Documented Current medications: (Selected) Inpatient Medications Ordered Ancef: 2 Gram, 50 mL, 100 mL/Hr, IV Piggyback, PREOP Chloraseptic 6 mg-10 mg mucous membrane lozenge: 1 Lozenge, Oral, Q2H, PRN: Sore Throat Dulcolax Laxative: 10 mg, Oral, BID, PRN: Constipation Dulcolax Laxative: 10 mg, Rectal, BID, PRN: Constipation Fleet Enema: 133 mL, Rectal, Daily, PRN: Constipation Flexeril: 10 mg, Oral, TID, PRN: Spasms Lactated Ringers Injection intravenous solution 1,000 mL: 125 mL/Hr, IntraVENous MS Contin: 15 mg, Oral, Q8HInt Milk of Magnesia 8% oral suspension: 30 mL, Oral, TID, PRN: Constipation MiraLax: 17 Gram, Oral, Daily Mirapex ER: 4.5 mg, Oral, Daily Phenergan: 12.5 mg, IV Push, Q6H, PRN: Nausea Tylenol: 650 mg, Oral, Q4H Zofran: 4 mg, IV Push, Q4H, PRN: Nausea carbidopa-levodopa 10 mg-100 mg oral tablet: 1 Tab, Oral, QID cloNIDine: 0.2 mg, Oral, Q4H, PRN: Hypertension docusate sodium: 200 mg, Oral, BID heparin: 5,000 Units, SubCutaneous, Q8H hydrALAZINE: 10 mg, IV Push, Q6H, PRN: Hypertension morphine: 2 mg, IV Push, Q2H, PRN: Pain (Moderate 4-6) morphine: 4 mg, IV Push, Q2H, PRN: Pain (Severe 7-10) oxyCODONE: 10 mg, Oral, Q4H, PRN: Pain (Moderate 4-6) oxyCODONE: 5 mg, Oral, Q4H, PRN: Pain (Mild 1-3) pantoprazole: 40 mg, Oral, Daily simethicone: 80 mg, Oral, Q6H, PRN: Gas sodium chloride 0.9% injectable solution: 10 mL, IV Push, See Comment, PRN: Other (See Comment) Documented Medications Documented Imuran: every 8 weeks at hospital last dose 11/29/2018, 0 Refill(s) Mirapex ER 4.5 mg oral tablet, extended release: Tab, Oral, Daily, 0 Refill(s) carbidopa-levodopa 10 mg-100 mg oral tablet: 1 Tab, Oral, QID, 120 Tab, 0 Refill(s) meloxicam 7.5 mg oral tablet: Tab, Oral, Daily, 0 Refill(s) omeprazole 20 mg oral delayed release capsule: 1 Cap, Oral, Daily, before a meal, 30 Cap, 0 Refill(s) rasagiline: Oral, Daily, 0 Refill(s), Home Medications (6) Active carbidopa-levodopa 10 mg-100 mg oral tablet 1 Tab, Oral, QID Imuran meloxicam 7.5 mg oral tablet , Oral, Daily Mirapex ER 4.5 mg oral tablet, extended release , Oral, Daily omeprazole 20 mg oral delayed release capsule 20 mg = 1 Cap, Oral, Daily rasagiline , Oral, Daily , Medications (26) Active Scheduled: (9) acetaminophen 325 mg tab 650 mg 2 Tab, Oral, Q4H carbidopa/levodopa 10/100 mg tab 1 Tab, Oral, QID ceFAZolin/D5w 2 Gram 50 mL, IV Piggyback, PREOP docusate sodium 100 mg cap 200 mg 2 Cap, Oral, BID heparin 5,000 units/1 mL inj 5,000 Units 1 mL, SubCutaneous, Q8H morphine SR 15 mg tab 15 mg 1 Tab, Oral, Q8HInt pantoprazole EC 40 mg tab 40 mg 1 Tab, Oral, Daily polyethylene glycol 3350 pwd 17 g pkt 17 Gram 1 Packet, Oral, Daily pramipexole ER 0.75 mg tab 4.5 mg 6 Tab, Oral, Daily Continuous: (1) lactated ringers 1,000 mL 1,000 mL, IntraVENous, 125 mL/Hr PRN: (16) #NaCl 0.9% *FLUSH* inj 10 mL 10 mL, IV Push, See Comment benzocaine-menthol 6 mg alyssa 1 Lozenge, Oral, Q2H bisacodyl 10 mg supp 10 mg 1 Supp, Rectal, BID bisacodyl EC 5 mg tab 10 mg 2 Tab, Oral, BID cloNIDine 0.2 mg tab 0.2 mg 1 Tab, Oral, Q4H cyclobenzaprine 10 mg tab 10 mg 1 Tab, Oral, TID hydrALAZINE 20 mg/1 mL inj 10 mg 0.5 mL, IV Push, Q6H magnesium hydroxide 8% liq 30 mL 30 mL, Oral, TID morphine 2 mg/1 ml inj 2 mg 1 mL, IV Push, Q2H morphine 4 mg/1 mL inj 4 mg 1 mL, IV Push, Q2H Na biphos-Na phos 19 g-7 g enema 133 mL, Rectal, Daily ondansetron 4 mg/2 mL inj 4 mg 2 mL, IV Push, Q4H oxyCODONE 5 mg tab 5 mg 1 Tab, Oral, Q4H oxyCODONE 5 mg tab 10 mg 2 Tab, Oral, Q4H promethazine 25 mg/1 mL inj 12.5 mg 0.5 mL, IV Push, Q6H simethicone 80 mg chew tab 80 mg 1 Tab, Oral, Q6H Problem list: All Problems Arthritis / SNOMED CT 8182530 / Confirmed Colitis / SNOMED CT 3468385960 / Confirmed DJD (degenerative joint disease) of thoracic spine / SNOMED CT 7543105485 / Confirmed History of obstructive sleep apnea / IMO [id number] / Confirmed Parkinson disease / SNOMED CT 73188221 / Confirmed Scoliosis / SNOMED CT 857224791 / Confirmed, Active Problems (6) Arthritis Colitis DJD (degenerative joint disease) of thoracic spine History of obstructive sleep apnea Parkinson disease Scoliosis Objective VS/Measurements Vitals Signs (last 24 hrs) Last Charted Minimum Maximum Temp 97.8 (DECEMBER 23 06:00) 97.8 (DECEMBER 23 06:00) 99 (DECEMBER 22 18:11) Mon HR 92 (DECEMBER 23 06:00) 66 (DECEMBER 22 20:15) 94 (DECEMBER 23 02:45) Resp Rate 16 (DECEMBER 23 06:00) L 5 (DECEMBER 22 18:11) 20 (DECEMBER 22 10:00) SBP 137 (DECEMBER 23 06:00) 102 (DECEMBER 22 18:30) H 155 (DECEMBER 22 10:00) DBP H 93 (DECEMBER 23 06:00) 60 (DECEMBER 22 18:15) H 96 (DECEMBER 22 10:00) MAP 101 (DECEMBER 23 02:45) 76 (DECEMBER 22 19:30) 101 (DECEMBER 22 18:50) SpO2 100 (DECEMBER 23 06:00) 95 (DECEMBER 22 21:00) 100 (DECEMBER 22 10:00) Electronically signed by Taryn, [facility] Conversion Packaging Line Operator Cerner at 11/12/2022 9:52 PM CDT documented in this encounter Plan of Treatment Not on file documented as of this encounter Visit Diagnoses Not on filedocumented in this encounter
--- OUTSIDE RECORDS SUMMARY | 2025-01-27 13:07 | XMS_ITS | Encounter Summary ---
Author Organization [employer] ([place], [place], [place], [place]) Address [address] [place] [address] Care Team Providers Care Pen Rider Name Role Phone Unavailable Primary Care Provider Unavailabl e Encounter Details Date Type Department Care Team (Late st Contact Info) Description 11/02/2019 Transcribed Document [facility] [place] [facility] [place] [address] ProviderAgnieszka MD [address], [place] [id number] Social History Tobacco Use Types Packs/Day Years Used Date Smoking Tobacco: Never Assessed Sex and Gender Information Value Date Recorded Sex Assigned at Not on file Legal Sex Male 2:38 PM CDT Gender Identity Not on file Sexual Orientation Not on file documented as of this encounter Miscellaneous Notes * Cerner Conversion Note - Historical ProviderMD - 11/02/2019 3:33 AM CDT ED Discharge Entered On: 11/02/2019 3:33 EDT Performed On: 11/02/2019 3:33 EDT by Teresa Mohamud Drawbench Operator Helper Process Patient Disposition : Admit/Observe Personal Belongings With Patient : Yes Patient Education Completed : Yes Teaching Evaluation : Verbalizes understanding IV Discontinued : No Nursing Documentation Completed : Yes Teresa Mohamud Rn - 11/02/2019 3:33 EDT Admission, ED Nurse Report Accepted By : Tal Cook RN `Nurse Report (Hand Off) : Called Accompanied By, Discharge : Unaccompanied Teresa Mohamud Rn - 11/02/2019 3:33 EDT documented in this encounter Plan of Treatment Not on file documented as of this encounter Visit Diagnoses Not on filedocumented in this encounter
--- OUTSIDE RECORDS SUMMARY | 2025-01-27 13:07 | XMS_ITS | Encounter Summary ---
Author Organization [employer] ([place], [place], [place], [place]) Address [address] [place] [address] Care Team Providers Care Fire Captain Name Role Phone Unavailable Primary Care Provider Unavailabl e Encounter Details Date Type Department Care Team (Late st Contact Info) Description 11/02/2019 Transcribed Document [facility] [place] Medicine [address] [place] [address] ProviderAgnieszka MD [address], [place] [address] Social History Tobacco Use Types Packs/Day Years Used Date Smoking Tobacco: Never Assessed Sex and Gender Information Value Date Recorded Sex Assigned at Not on file Legal Sex Male 2:38 PM CDT Gender Identity Not on file Sexual Orientation Not on file documented as of this encounter Miscellaneous Notes * Cerner Conversion Note - Historical ProviderMD - 11/02/2019 3:01 AM CDT Pain Assessment Entered On: 11/02/2019 17:14 EDT Performed On: 11/02/2019 15:02 EDT by Zee Taylor RN Intervention Information: morphine Performed by Zee Taylor RN on 11/02/2019 14:32:00 EDT morphine,2mg IV Push,Peripheral Line 1,Pain (Severe 7-10) Pain Assessment Pain Assessment : Follow-up assessment Pain Scale Goal : 4 Pain Improved by Intervention : No Zee Taylor RN - 11/02/2019 17:14 EDT documented in this encounter Plan of Treatment Not on file documented as of this encounter Visit Diagnoses Not on filedocumented in this encounter
--- OUTSIDE RECORDS SUMMARY | 2025-01-27 13:07 | XMS_ITS | Encounter Summary ---
Author Organization [employer] ([place], [place], [place], [place]) Address [address] [place] [address] Care Team Providers Care Wiener Packer Name Role Phone Unavailable Primary Care Provider Unavailabl e Encounter Details Date Type Department Care Team (Late st Contact Info) Description 11/02/2019 Transcribed Document [facility] [place] [facility] [place] [address] ProviderAgnieszka MD [address], [place] [id number] Social History Tobacco Use Types Packs/Day Years Used Date Smoking Tobacco: Never Assessed Sex and Gender Information Value Date Recorded Sex Assigned at Not on file Legal Sex Male 2:38 PM CDT Gender Identity Not on file Sexual Orientation Not on file documented as of this encounter Miscellaneous Notes * [employer]ner Conversion Note - Agnieszka ProviderMD - 11/02/2019 12:31 AM CDT ED Assessment Entered On: 11/02/2019 2:21 EDT Performed On: 11/02/2019 2:19 EDT by Teresa Mohamud Rn ED Quick Look Assessment Level of Consciousness : Alert, Awake Affect/Behavior : Appropriate, Calm, Cooperative Orientation : Oriented x 4 Skin Temperature : Warm Skin Description : Normal for ethnicity Teresa Moahmud Rn - 11/02/2019 2:19 EDT ED General-Functional Assess Information Obtained From : Patient Communication Barrier : None Primary Language : German Any Spiritual/Cultural Needs or Requests : No Currently in Unsafe Situation : No Teresa Mohamud Rn - 11/02/2019 2:19 EDT Social Habits Smoking Status : Never (less than 100 in lifetime; none in last 30 days) Smokeless Tobacco Status : Never Desires Tobacco Cessation Calc : 0 Teresa Mohamud Rn - 11/02/2019 2:19 EDT Social History (As Of: 11/02/2019 02:21:52 EDT) Tobacco: Never (less than 100 in lifetime) Smoking Status. Never Smokeless Tobacco Status. (Last Updated: 12/16/2018 11:32:50 EDT by MILTON GAMEZ, MY) Alcohol: Alcohol Use History No. Use in Last 12 Months: No. (Last Updated: 12/16/2018 11:33:00 EDT by MILTON GAMEZ, MY) Substance Abuse: Drug Use Hx: No. Use in Last 12 Months: No. (Last Updated: 12/16/2018 11:33:06 EDT by MILTON GAMEZ, MY) Musculoskeletal Musculoskeletal Assessment WDL : WDL with exceptions (Comment: pt from home c/o low back pain and muscle spasms x 3-4 days. pt denies any injury to back. pt denies any numbness/tingling. [Teresa Mohamud Rn - 11/02/2019 2:19 EDT] ) Teresa Mohamud Rn - 11/02/2019 2:19 EDT documented in this encounter Plan of Treatment Not on file documented as of this encounter Visit Diagnoses Not on filedocumented in this encounter
--- OUTSIDE RECORDS SUMMARY | 2025-01-27 13:07 | XMS_ITS | Encounter Summary ---
Author Organization [employer] ([place], [place], [place], [place]) Address [address] [place] [address] Care Team Providers Care Test Preparation Tutor Name Role Phone Unavailable Primary Care Provider Unavailabl e Encounter Details Date Type Department Care Team (Late st Contact Info) Description 12/24/2018 Transcribed Document [facility] [place] [facility] [place] [address] ProviderAgnieszka MD [address], [place] [id number] Social History Tobacco Use Types Packs/Day Years Used Date Smoking Tobacco: Never Assessed Sex and Gender Information Value Date Recorded Sex Assigned at Not on file Legal Sex Male 2:38 PM CDT Gender Identity Not on file Sexual Orientation Not on file documented as of this encounter Miscellaneous Notes * Cerner Conversion Note - Agnieszka ProviderMD - 12/24/2018 3:22 PM CDT On Going Discharge Planning Entered On: 12/24/2018 15:23 EDT Performed On: 12/24/2018 15:22 EDT by MARTÍNEZ VALENZUELA RN-Power Press OperatorAtmospheric Drier Tender Progress Note Discharge Arrangements : Patient Post-Acute Information Patient Name: SIMBA MAYEN JR Gender: Male : [birth year] Age: 68 Years No Post-Acute Placement(s) Listed No Post-Acute Service(s) Listed No [place] Referral(s) Listed Discharge Options Discussed with Patient : Acute rehabilitation Designation of Choice Signed : Yes Patient Offered Choice/Affiliations Explained : Yes List/Info Provided Pt/Fam/Support Person : Other: acute rehab Were Referrals Sent to Post Acute Providers : Yes MARTÍNEZ VALENZUELA RN-Power Press Operator - 12/24/2018 15:22 EDT Electronically signed by Taryn, [facility] Conversion Digital Product Manager Cerner at 11/12/2022 9:41 PM CDT documented in this encounter Plan of Treatment Not on file documented as of this encounter Visit Diagnoses Not on filedocumented in this encounter
--- OUTSIDE RECORDS SUMMARY | 2025-01-27 13:07 | XMS_ITS | Encounter Summary ---
Author Organization [employer] ([place], [place], [place], [place]) Address [address] [place] [address] Care Team Providers Care Mold Stripper Name Role Phone Unavailable Primary Care Provider Unavailabl e Encounter Details Date Type Department Care Team (Late st Contact Info) Description 11/02/2019 Transcribed Document [facility] [place] [address] [place] [address] ProviderAgnieszka MD [address], [place] [id number] Social History Tobacco Use Types Packs/Day Years Used Date Smoking Tobacco: Never Assessed Sex and Gender Information Value Date Recorded Sex Assigned at Not on file Legal Sex Male 2:38 PM CDT Gender Identity Not on file Sexual Orientation Not on file documented as of this encounter Miscellaneous Notes * [employer]ner Conversion Note - Historical ProviderMD - 11/02/2019 2:43 PM CDT Attempt to Treat, PT Entered On: 11/02/2019 14:43 EDT Performed On: 11/02/2019 14:43 EDT by LIANG ROA PT Attempt to Treat Unable to Treat Due To : Patient Unavailable Inability to Treat Comment : Patient off the floor for MRI. PT will attempt again Notification : LIANG Gustafson, RONY - 11/02/2019 14:43 EDT documented in this encounter Plan of Treatment Not on file documented as of this encounter Visit Diagnoses Not on filedocumented in this encounter
--- OUTSIDE RECORDS SUMMARY | 2025-01-27 13:07 | XMS_ITS | Encounter Summary ---
Author Organization [employer] ([place], [place], [place], [place]) Address [address] [place] [address] Care Team Providers Care Netezza Developer Name Role Phone Unavailable Primary Care Provider Unavailabl e Encounter Details Date Type Department Care Team (Late st Contact Info) Description 12/24/2018 Transcribed Document [facility] [place] [place] Family Medicine [address] [place] [address] ProviderAgnieszka MD [address] [place] [address] Social History Tobacco Use Types Packs/Day Years Used Date Smoking Tobacco: Never Assessed Sex and Gender Information Value Date Recorded Sex Assigned at Not on file Legal Sex Male 2:38 PM CDT Gender Identity Not on file Sexual Orientation Not on file documented as of this encounter Miscellaneous Notes * Cerner Conversion Note - Agnieszka ProviderMD - 12/24/2018 3:59 PM CDT [facility] [place] [id number] SIMBA MAYEN JR :1950 Visit Time:12/22/2018 Your Visit Summary Your Care Team Admitting Physician - HEIDE KAT MD-DIVYA Attending Physician - NORTH, HEIDE MORENO MD-DIVYA Primary Care Physician - NOAH NUNEZ (REF), -[facility] Referring Physician - HEIDE KAT MD-DIVYA Your Diagnosis Lumbar radiculopathy, Radiculopathy, lumbar region, Radiculopathy, lumbar region Lumbar spine scoliosis Lumbar stenosis Discharge Vitals Temperature 36.8 ??C Heart Rate (Monitored) 107 Respiratory Rate 17 Blood Pressure 93/63 What to do next Instructions From Your Care Team Diet after Discharge: Resume usual diet as tolerated, Activity after Discharge: _, _, No strenuous activity; No bending, lifting or tisting Lifting Restrictions: No heavy lifting over 10 pounds Weight Bearing: Full weight bearing Driving after Discharge: Do not drive Showering/Bathing: May shower, No tub bathing, soaking or swimming; Cover with plastic wrap before shower Notify Provider of: Wound/Incision Care after Discharge: Keep operative site/wound site clean and dry, Change dressing with dry dressing daily and as needed Medical Equipment for Home Use: Home Health Services: Community Services: Follow-Up Appointments Follow Up with HEIDE KAT When 01/25/2019 11:30 AM EDT Comments Please go to [facility] at 10:45am for x-rays before appointment at 11:30am Where: [address] [place] [address] [phone] (1) Follow Up with HEIDE KAT When 01/04/2019 11:00 AM EDT Comments Appointment has been made Where: [address] [place] [address] [phone] [phone] (1) Medications What How Much When Instructions Next Dose acetaminophen-oxyCODONE (Percocet 7.5/ 325 oral tablet) 1 Tablet(s) Oral Every 6 Hours as needed for for pain 2000 azaTHIOprine (Imuran) Every 8 Weeks every 8 weeks at hospital last dose 2018 as scheduled rasagiline (Azilect 1 mg oral tablet) 1 Tablet(s) Oral Every Day 0900 on 12-25-18 carbidopa-levodopa (carbidopa-levodopa 25 mg-100 mg oral tablet) 1 Tablet(s) Oral Four Times A Day 1700 omeprazole (omeprazole 20 mg oral delayed release capsule) 1 Capsule(s) Oral Every Day before a meal 0900 on 12-25-18 pramipexole (Mirapex ER 4.5 mg oral tablet, extended release) Oral Every Day 0900 on 12-25-18 Take your medications faithfully. Do NOT skip [...] cramping, rapid heartbeat, difficulty sleeping, and nervousness. Please dispose of unused and medications per your retail pharmacy guidance. Allergies No Known Medication Allergies Immunizations This Visit No Immunizations Found Education Materials Wound Infection A wound infection happens when germs start to grow in the wound. Germs that cause wound infections are most often bacteria. Other types of infections can occur as well. In some cases, infection can cause the wound to break open. Wound infections need treatment. If a wound infection is not treated, complications can happen. Follow these instructions at home: Medicines ??? Take or apply keoe-qfl-eflchoe and prescription medicines only as told by your doctor. ??? If you were prescribed antibiotic medicine, take or apply it as told by your doctor. Do not stop using the antibiotic even if your condition improves. Wound care ??? Clean the wound each day or as told by your doctor. ? Wash the wound with mild soap and water. ? Rinse the wound with water to remove all soap. ? Pat the wound dry with a clean towel. Do not rub it. ??? Follow instructions from your doctor about how to take care of your wound. Make sure you: ? Wash your hands with soap and water before you change your bandage (dressing). If you cannot use soap and water, use hand stereotype finisher. ? Change your bandage as told by your doctor. ? Leave stitches (sutures), skin glue, or skin tape (adhesive) strips in place if your wound has been closed. They may need to stay in place for 2 weeks or longer. If tape strips get loose and curl up, you may trim the loose edges. Do not remove tape strips completely unless your doctor says it is okay. Some wounds are left open to heal on their own. ??? Check your wound every day for signs of infection. Watch for: ? More redness, swelling, or pain. ? More fluid or blood. ? Warmth. ? Pus or a bad smell. General instructions ??? Keep the bandage dry until your doctor says it can be removed. ??? Do not take baths, swim, use a hot tub, or do anything that would put your wound underwater until your doctor says it is okay. ??? Raise (elevate) the injured area above the level of your heart while you are sitting or lying down. ??? Do not scratch or pick at the wound. ??? Keep all follow-up visits as told by your doctor. This is important. Contact a doctor if: ??? Medicine does not help your pain. ??? You have more redness, swelling, or pain in the area of your wound. ??? You have more fluid or blood coming from your wound. ??? Your wound feels warm to the touch. ??? You have pus coming from your wound. ??? You continue to notice a bad smell coming from your wound or your bandage. ??? Your wound that was closed breaks open. Get help right away if: ??? You have a red streak going away from your wound. ??? You have a fever. This information is not intended to replace advice given to you by your health care provider. Make sure you discuss any questions you have with your health care provider. Document Released: 04/22/2009 Document Revised: 12/19/2016 Document Reviewed: 01/01/2016 [employer] Interactive Patient Education ?? 2019 [employer] Spinal Fusion, Adult, Care After This sheet gives you information about how to care for yourself after your procedure. Your doctor may also give you more specific instructions. If you have problems or questions, contact your doctor. Follow these instructions at home: Medicines ??? Take mpcr-kjm-ucenwev and prescription medicines only as told by your doctor. These include any medicines for pain or blood-thinning medicines (anticoagulants). ??? If you were prescribed an antibiotic medicine, take it as told by your doctor. Do not stop taking the antibiotic even if you start to feel better. ??? Do not drive for 24 hours if you were given a medicine to help you relax (sedative) during your procedure. ??? Do not drive or use heavy machinery while taking prescription pain medicine. If you have a brace: ??? Wear the brace as told by your doctor. Take it off only as told by your doctor. ??? Keep the brace clean. Managing pain, stiffness, and swelling ??? If directed, put ice on the surgery area: ? If you have a removable brace, take it off as told by your doctor. ? Put ice in a plastic bag. ? Place a towel between your skin and the bag. ? Leave the ice on for 20 minutes, 2???3 times a day. Surgery cut care ??? Follow instructions from your doctor about how to take care of your cut from surgery (incision). Make sure you: ? Wash your hands with soap and water before you change your bandage (dressing). If you cannot use soap and water, use hand stereotype finisher. ? Change your bandage as told by your doctor. ? Leave stitches (sutures), skin glue, or skin tape (adhesive) strips in place. They may need to stay in place for 2 weeks or longer. If tape strips get loose and curl up, you may trim the loose edges. Do not remove tape strips completely unless your doctor says it is okay. ??? Keep your cut from surgery clean and dry. ? Do not take baths, swim, or use a hot tub until your doctor says it is okay. ? Ask your doctor if you can take showers. You may only be allowed to take sponge baths. ??? Every day, check your cut from surgery and the area around it for: ? More redness, swelling, or pain. ? Fluid or blood. ? Warmth. ? Pus or a bad smell. ??? If you have a drain tube, follow instructions from your doctor about caring for it. Do not take out the drain tube or any bandages unless your doctor says it is okay. Physical activity ??? Rest and protect your back as much as possible. ??? Follow instructions from your doctor about how to move. Use good posture to help your spine heal. ??? Do not lift anything that is heavier than 8 lb (3.6 kg), or the limit that you are told, until your doctor says that it is safe. ??? Do not twist or bend at the waist until your doctor says it is okay. ??? It is best if you: ? Do not make pushing and pulling motions. ? Do not sit or lie down in the same position for a long time. ? Do not raise your hands or arms above your head. ??? Return to your normal activities as told by your doctor. Ask your doctor what activities are safe for you. Rest and protect your back as much as you can. ??? Do not start to exercise until your doctor says it is okay. Ask your doctor what kinds of exercise you can do to make your back stronger. General instructions ??? To prevent blood clots and lessen swelling in your legs: ? Wear compression stockings as told. ? Walk one or more times every few hours as told by your doctor. ??? Do not use any products that contain nicotine or tobacco, such as cigarettes and e-cigarettes. These can delay bone healing. If you need help quitting, ask your doctor. ??? To prevent or treat constipation while you are taking prescription pain medicine, your doctor may suggest that you: ? Drink enough fluid to keep your pee (urine) pale yellow. ? Take clhm-dji-xvpcbmh or prescription medicines. ? Eat foods that are high in fiber. These include fresh fruits and vegetables, whole grains, and beans. ? Limit foods that are high in fat and processed sugars, such as fried and sweet foods. ??? Keep all follow-up visits as told by your doctor. This is important. Contact a doctor if: ??? Your pain gets worse. ??? Your medicine does not help your pain. ??? Your legs or feet get painful or swollen. ??? Your cut from surgery is more red, swollen, or painful. ??? Your cut from surgery feels warm to the touch. ??? You have: ? Fluid or blood coming from your cut from surgery. ? Pus or a bad smell coming from your cut from surgery. ? A fever. ? Weakness or loss of feeling (numbness) in your legs that is new or getting worse. ? Trouble controlling when you pee (urinate) or poop (have a bowel movement). ??? You feel sick to your stomach (nauseous). ??? You throw up (vomit). Get help right away if: ??? Your pain is very bad. ??? You have chest pain. ??? You have trouble breathing. ??? You start to have a cough. These symptoms may be an emergency. Do not wait to see if the symptoms will go away. Get medical help right away. Call your local emergency services (911 in the [place] Do not drive yourself to the hospital. Summary ??? After the procedure, it is common to have pain in your back and pain by your surgery cut(s). ??? Icing and pain medicines may help to control the pain. Follow directions from your doctor. ??? Rest and protect your back as much as possible. Do not twist or bend at the waist. ??? Get up and walk one or more times every few hours as told by your doctor. This information is not intended to replace advice given to you by your health care provider. Make sure you discuss any questions you have with your health care provider. Document Released: 11/07/2011 Document Revised: 10/28/2017 Document Reviewed: 10/28/2017 [employer] Interactive Patient Education ?? 2019 [employer]. acetaminophen and oxycodone (a SEET a MIN oh fen and OX i KOE done) Endocet 10/325, Endocet 2.5/325, Endocet 5/325, Endocet 7.5/325, Nalocet, Percocet 10/325, Percocet 2.5/325, Percocet 5/325, Percocet 7.5/325, Primalev, Primlev, Roxicet, Xartemis XR What is the most important information I should know about acetaminophen and oxycodone? MISUSE OF OPIOID MEDICINE CAN CAUSE ADDICTION, OVERDOSE, OR . Keep the medication in a place where others cannot get to it. An overdose of acetaminophen can damage your liver or cause . Call your doctor at once if you have pain in your upper stomach, loss of appetite, dark urine, or jaundice (yellowing of your skin or eyes). Taking opioid medicine during may cause life-threatening withdrawal symptoms in the . Fatal side effects can occur if you use opioid medicine with alcohol, or with other drugs that cause drowsiness or slow your breathing. Stop taking this medicine and call your doctor right away if you have skin redness or a rash that spreads and causes blistering and peeling. What is acetaminophen and oxycodone? Oxycodone is an opioid pain medication, sometimes called a narcotic. Acetaminophen is a less potent pain reliever that increases the effects of oxycodone. Acetaminophen and oxycodone is a combination medicine used to relieve moderate to severe pain. Acetaminophen and oxycodone may also be used for purposes not listed in this medication guide. What should I discuss with my healthcare provider before taking acetaminophen and oxycodone? You should not use this medicine if you are allergic to acetaminophen or oxycodone, or if you have: ? severe asthma or breathing problems; or ?? a blockage in your stomach or intestines. Tell your doctor if you have ever had: ? liver disease; ?? a drug or alcohol addiction; ?? kidney disease; ?? a head injury or seizures; ?? urination problems; or ?? problems with your thyroid, pancreas, or gallbladder. If you use opioid medicine while you are , your baby could become dependent on the drug. This can cause life-threatening withdrawal symptoms in the baby after it is born. Babies born dependent on opioids may need medical treatment for several weeks. Do not breast-feed. This medicine can pass into breast milk and cause drowsiness, breathing problems, or in a nursing baby. How should I take acetaminophen and oxycodone? Follow all directions on your prescription label. Never take this medicine in larger amounts, or for longer than prescribed. An overdose can damage your liver or cause . Tell your doctor if the medicine seems to stop working as well in relieving your pain. Never share this medicine with another person, especially someone with a history of drug abuse or addiction. MISUSE CAN CAUSE ADDICTION, OVERDOSE, OR . Keep the medicine in a place where others cannot get to it. Selling or giving away acetaminophen and oxycodone is against the law. Measure liquid medicine carefully. Use the dosing syringe provided, or use a medicine dose-measuring device (not a kitchen spoon). If you need surgery or medical tests, tell the doctor ahead of time that you are using this medicine. You should not stop using this medicine suddenly. Follow your doctor's instructions about tapering your dose. Store at room temperature away from moisture and heat. Keep track of your medicine. You should be aware if anyone is using it improperly or without a prescription. Do not keep leftover opioid medication. Just one dose can cause in someone using this medicine accidentally or improperly. Ask your pharmacist where to locate a drug take-back disposal program. If there is no take-back program, flush the unused medicine down the toilet. What happens if I miss a dose? Since this medicine is used for pain, you are not likely to miss a dose. Skip any missed dose if it is almost time for your next dose. Do not use two doses at one time. What happens if I overdose? Seek emergency medical attention or call the Poison Help line at . An overdose of acetaminophen and oxycodone can be fatal. The first signs of an acetaminophen overdose include loss of appetite, nausea, vomiting, stomach pain, sweating, and confusion or weakness. Later symptoms may include pain in your upper stomach, dark urine, and yellowing of your skin or the whites of your eyes. Overdose can also cause severe muscle weakness, pinpoint pupils, very slow breathing, extreme drowsiness, or coma. What should I avoid while taking acetaminophen and oxycodone? Avoid driving or operating machinery until you know how this medicine will affect you. Dizziness or drowsiness can cause falls, accidents, or severe injuries. Do not drink alcohol. Dangerous side effects or could occur. Ask a doctor or pharmacist before using any other medicine that may contain acetaminophen (sometimes abbreviated as APAP). Taking certain medications together can lead to a fatal overdose. What are the possible side effects of acetaminophen and oxycodone? Get emergency medical help if you have signs of an allergic reaction: hives; difficulty breathing; swelling of your face, lips, tongue, or throat. Opioid medicine can slow or stop your breathing, and may occur. A person caring for you should seek emergency medical attention if you have slow breathing with long pauses, blue colored lips, or if you are hard to wake up. In rare cases, acetaminophen may cause a severe skin reaction that can be fatal. This could occur even if you have taken acetaminophen in the past and had no reaction. Stop taking this medicine and call your doctor right away if you have skin redness or a rash that spreads and causes blistering and peeling. Call your doctor at once if you have: ? noisy breathing, sighing, shallow breathing; ?? a light-headed feeling, like you might pass out; ?? weakness, tiredness, fever, unusual bruising or bleeding; ?? confusion, unusual thoughts or behavior; ?? problems with urination; ?? liver problems--nausea, upper stomach pain, tiredness, loss of appetite, dark urine, crystal-colored stools, jaundice (yellowing of the skin or eyes); or ?? low cortisol levels-- nausea, vomiting, loss of appetite, dizziness, worsening tiredness or weakness. Seek medical attention right away if you have symptoms of serotonin syndrome, such as: agitation, hallucinations, fever, sweating, shivering, fast heart rate, muscle stiffness, twitching, loss of coordination, nausea, vomiting, or diarrhea. Serious side effects may be more likely in older adults and those who are overweight, malnourished, or debilitated. Long-term use of opioid medication may affect fertility (ability to have children) in men or women. It is not known whether opioid effects on fertility are permanent. Common side effects include: ? dizziness, drowsiness, feeling tired; ?? feelings of extreme happiness or sadness; ?? nausea, vomiting, stomach pain; ?? constipation; or ?? headache. This is not a complete list of side effects and others may occur. Call your doctor for medical advice about side effects. You may report side effects to FDA at 7-790-XNY-2162. What other drugs will affect acetaminophen and oxycodone? You may have breathing problems or withdrawal symptoms if you start or stop taking certain other medicines. Tell your doctor if you also use an antibiotic, antifungal medication, heart or blood pressure medication, seizure medication, or medicine to treat HIV or hepatitis C. Opioid medication can interact with many other drugs and cause dangerous side effects or . Be sure your doctor knows if you also use: ? cold or allergy medicines, bronchodilator asthma/COPD medication, or a diuretic ('water pill'); ?? medicines for motion sickness, irritable bowel syndrome, or overactive bladder; ?? other narcotic medications--opioid pain medicine or prescription cough medicine; ?? a sedative like Valium--diazepam, alprazolam, lorazepam, Xanax, Klonopin, Versed, and others; ?? drugs that make you sleepy or slow your breathing--a sleeping pill, muscle relaxer, medicine to treat mood disorders or mental illness; ?? drugs that affect serotonin levels in your body--a stimulant, or medicine for depression, Parkinson's disease, migraine headaches, serious infections, or nausea and vomiting. This list is not complete. Other drugs may affect acetaminophen and oxycodone, including prescription and wixi-jor-pgdwykt medicines, vitamins, and herbal products. Not all possible interactions are listed here. Where can I get more information? Your doctor or pharmacist can provide more information about acetaminophen and oxycodone. Remember, keep this and all other medicines out of the reach of children, never share your medicines with others, and use this medication only for the indication prescribed. Every effort has been made to ensure that the information provided by [employer]') is accurate, up-to-date, and complete, but no guarantee is made to that effect. Drug information contained herein may be time sensitive. [employer] information has been compiled for use by healthcare practitioners and consumers in the [place] and therefore [employer] does not warrant that uses outside of the [place] are appropriate, unless specifically indicated otherwise. [employer]'s drug information does not endorse drugs, diagnose patients or recommend therapy. [employer] drug information is an informational resource designed to assist licensed healthcare practitioners in caring for their patients and/or to serve consumers viewing this service as a supplement to, and not a substitute for, the expertise, skill, knowledge and judgment of healthcare practitioners. The absence of a warning for a given drug or drug combination in no way should be construed to indicate that the drug or drug combination is safe, effective or appropriate for any given patient. [employer] does not assume any responsibility for any aspect of healthcare administered with the aid of information [employer] provides. The information contained herein is not intended to cover all possible uses, directions, precautions, warnings, drug interactions, allergic reactions, or adverse effects. If you have questions about the drugs you are taking, check with your doctor, nurse or pharmacist. Copyright 2280-9992 [employer]. Version: 18.02. Revision Date: 06/24/2018. Emergency Awareness and Preventative Care STROKE is an EMERGENCY Every Minute Counts Act FAST and Check for these signs: FACE Does the face look uneven? ARM Does one arm drift down? SPEECH Does their speech sound strange? TIME Call at any sign of stroke Stroke Risk Factors Atrial Fibrillation (irregular heartbeat) Diabetes Family history of stroke Heart Disease Heavy alcohol use High Blood Pressure High Cholesterol Physical inactivity and obesity Smoking Cigarette Smoking The facts are clear, cigarette smoking will shorten your life. Smoking can cause many illnesses along the way. As a healthcare provider, we recommend that you stop smoking. Assistance with quitting is available by contacting 3-669-YJUKAlphionNOW. This is a free resource providing counseling, support, and referral. Or you may contact your personal physician. National Suicide Prevention Lifeline: The National Suicide Prevention Lifeline is a national network of local crisis centers that provides free and confidential emotional support to people in suicidal crisis or emotional distress 24 hours a day, 7 days a week. Don't Wait! Stop a Heart Attack Before it Starts What is a heart attack? A heart attack is damage or to a part of the heart from severely decreased or lack of blood flow to the heart. Over time, arteries can become narrow from the buildup of fat and cholesterol, which is called plaque. The plaque can rupture causing a blood clot to form. When the blood clot forms, the artery can become severely narrowed or completely blocked, causing a heart attack. Heart attack is the leading cause of in the [place]. 85% of muscle damage occurs within the first 2 hours. Delay in the recognition of heart attack symptoms increases the chances of . Know the early symptoms of a heart attack: Nausea Feeling of fullness in chest Jaw Pain Pain that travels down one or both arms Fatigue/being tired Anxiety Back Pain Chest pressure, squeezing, or discomfort Shortness of breath Sweating, or a cold sweat Feeling of impending doom There are unusual signs of a heart attack, too! Women, the elderly, and diabetics may present with atypical symptoms: Fainting/dizziness Weakness Confusion Risk Factors for a Heart Attack Some heart disease risk factors, such as age and family history, cannot be changed. Others, like smoking and lack of exercise, can be changed. Smoking High Cholesterol High Blood Pressure Family History Obesity Age Gender (Males are at higher risk) Lack of Exercise Diabetes Diet Stress Excessive Alcohol Intake If you or someone you know is experiencing the signs and symptoms of a heart attack, DON???T DELAY. Call immediately and seek help. If someone collapses, perform CPR! Do not attempt to drive if you are having symptoms of heart attack. Hands-Only CPR Why Hands-Only CPR? Hands-Only CPR has been shown to be as effective as conventional CPR for cardiac arrests that occur outside of a hospital. Survival depends on immediately receiving CPR from someone nearby. How do you perform Hands-Only CPR? There are two easy steps: Call if you see a teen or adult collapse Push hard and fast in the center of the chest at a beat of 100 beats per minute. Save a life! 4 WAYS TO GET AHEAD OF SEPSIS SEPSIS is a MEDICAL EMERGENCY. Time matters! Infections put you and your family at risk for a life-threatening condition called sepsis. Sepsis is the body's extreme response to an infection. It is life-threatening, and without timely treatment, sepsis can rapidly lead to tissue damage, organ failure, and . Sepsis happens when an infection you already have-in your skin, lungs, urinary tract or somewhere else-triggers a chain reaction throughout your body. 1 [...] sepsis or if you have an infection that is not getting better or is getting worse. To learn more about sepsis and how to prevent infections, visit www.cdc.gov/sepsis. Patient Portal Reminder: Be sure to sign up for the [facility] patient portal, which gives you 17/02 access to your medical information ??? including these discharge instructions ??? using your computer, smartphone, or tablet. Just go to [employer] to get started. Questions? Call . Test Results Laboratory or Other Results This Visit (last charted value for your 12/22/2018 visit) Hematology 12/24/18 04:29:00 WBC: 8.2 K/uL -- Normal range between ( 3.6 and 9.5 ) RBC: 3.50 Million/uL -- Normal range between ( 4.20 and 5.70 ) Hct: 32.0 % -- Normal range between ( 40.1 and 51.0 ) Hgb: 10.5 g/dL -- Normal range between ( 13.5 and 17.3 ) Platelet Count: 121 K/uL -- Normal range between ( 163 and 369 ) MCH: 30.0 pg -- Normal range between ( 25.6 and 32.2 ) MCHC: 32.8 Gram/dL -- Normal range between ( 32.2 and 36.5 ) MCV: 91.4 fL -- Normal range between ( 79.0 and 94.8 ) Slide Review: No Eos %: 0.4 % -- Normal range between ( 0.0 and 7.0 ) Spencer #: 0.81 K/uL -- Normal range between ( 0.16 and 1.00 ) Eos #: 0.03 x10(3)/uL -- Normal range between ( 0.00 and 0.80 ) Spencer %: 9.9 % -- Normal range between ( 3.0 and 9.0 ) Baso %: 0.6 % -- Normal range between ( 0.0 and 1.5 ) Baso #: 0.05 x10(3)/uL -- Normal range between ( 0.00 and 0.20 ) RDW: 13.2 % -- Normal range between ( 11.7 and 14.9 ) Neut %: 67.5 % -- Normal range between ( 34.0 and 71.0 ) Neut #: 5.55 K/uL -- Normal range between ( 1.56 and 6.13 ) Lymph %: 21.2 % -- Normal range between ( 19.3 and 53.1 ) Lymph #: 1.74 x10(3)/uL -- Normal range between ( 1.00 and 3.90 ) MPV: 11.8 fL -- Normal range between ( 9.4 and 12.4 ) IG#: 0.03 x10(3)/uL -- Normal range between ( 0.00 and 0.05 ) IG%: 0.40 % -- Normal range between ( 0.00 and 0.60 ) Urinalysis 12/16/18 11:55:00 Urine Nitrite: Negative Urine Leukocyte Esterase: Negative Urine Appearance: Cloudy Urine Glucose Dipstick: Negative Urine Blood Dipstick: Negative Urine Type: U CleanCatch Urine Urobilinogen Dipstick: 1.0 EU/dL Urine Protein Dipstick: Trace Urine Color: Alison Urine Ketones Dipstick: Trace Urine pH Dipstick: 5.5 -- Normal range between ( 6.0 and 8.0 ) Urine Bilirubin Dipstick: Small Urine Specific [place]: >1.030 -- Normal range between ( 1.005 and 1.030 ) Blood Bank 12/22/18 10:17:00 ABO/Rh (ECHO): AB NEG Antibody Screen: Negative ABSC 12/16/18 11:55:00 ABO/Rh Repeat: AB NEG General Chemistry 12/24/18 04:29:00 Creatinine Level: 0.80 mg/dL -- Normal range between ( 0.70 and 1.30 ) Sodium Level: 139 mmol/L -- Normal range between ( 136 and 146 ) Potassium Level: 3.8 mmol/L -- Normal range between ( 3.5 and 5.1 ) Chloride Level: 110 mmol/L -- Normal range between ( 102 and 112 ) Carbon Dioxide Level: 24 mmol/L -- Normal range between ( 21 and 32 ) Anion Gap: 9 -- Normal range between ( 9 and 20 ) Bun/Creatinine: 10.0 -- Normal range between ( 8.0 and 20.0 ) Calcium Level: 7.5 mg/dL -- Normal range between ( 8.4 and 10.1 ) eGFR : >60 mL/min/1.73m2 eGFR NonAfrican: >60 mL/min/1.73m2 Glucose Level: 106 mg/dL -- Normal range between ( 74 and 106 ) Blood Urea Nitrogen: 8 mg/dL -- Normal range between ( 7 and 22 ) Diagnostic Radiology 12/22/18 17:30:[address] in OR: CR CT in OR Patient Name:FAHEEM REYES SIMBA I have received and understand this information and was given the opportunity to ask questions. Patient/Senior Stock Plan Administrator Name: Patient/Senior Stock Plan Administrator Signature: Relationship to Patient: Clinician/Hospital Senior Stock Plan Administrator Signature: Date: documented in this encounter Plan of Treatment Not on file documented as of this encounter Visit Diagnoses Not on filedocumented in this encounter
--- OUTSIDE RECORDS SUMMARY | 2025-01-27 13:07 | XMS_ITS | Encounter Summary ---
Author Organization [employer] ([place], [place], [place], [place]) Address [address] [place] [address] Care Team Providers Care Manager Creative Services Name Role Phone Unavailable Primary Care Provider Unavailabl e Encounter Details Date Type Department Care Team (Late st Contact Info) Description 12/24/2018 Transcribed Document [facility] Radiology [address] [place] [address] Ivana Salcido MD [facility] [address] [address] Social History Tobacco Use Types Packs/Day Years Used Date Smoking Tobacco: Never Assessed Sex and Gender Information Value Date Recorded Sex Assigned at Not on file Legal Sex Male 2:38 PM CDT Gender Identity Not on file Sexual Orientation Not on file documented as of this encounter Miscellaneous Notes * Cerner Conversion Note - Ivana Salcido MD - 12/24/2018 12:19 PM EDT Patient: SIMBA MAYEN JR Age: 68 years Sex: Male : 1950 Associated Diagnoses: None Author: SERG MARK PA-SABRA 12/24/18 cc: medical management s/p [id number] PLIF per Dr. Akers S: pt is sleepy. Sitting up in chair. Pt did wake up to answer questions for me. Denies any f/cs/. no n/v/d. No cp, soa. Pt did cough a little bit when I was in the room.. +gas. F/c removed yesterday. Had 300 ml out sometime afterwards, then 100 mls per . the last time he urinated it wasn't measured because he was in the bed. states that since he has had Parkinson's Dz he has been tired more often, but doesn't sleep this much at a time. Last pain pill was around 7 am this morning. D/w Dr. Akers, pt had MS Contin for 24 hours after surgery and likely contributing some to lethargy. HPI: Patient is a 68 yo male admitted to [facility] per Dr. Akers for a [id number] PLIF. Preoperatively patient was found to have [...] 24 hrs) Last Charted Minimum Maximum Temp 99.0 (DECEMBER 24 05:19) 98.3 (DECEMBER 23 21:12) 99.2 (DECEMBER 23 18:00) Mon HR 94 (DECEMBER 24 05:19) 92 (DECEMBER 23 12:54) 108 (DECEMBER 23 21:12) Resp Rate 18 (DECEMBER 24 03:06) 14 (DECEMBER 23 18:00) 18 (DECEMBER 24 03:06) SBP H 169 (DECEMBER 24 05:19) 95 (DECEMBER 23 15:09) H 169 (DECEMBER 24 05:19) DBP H 95 (DECEMBER 24 05:19) L 56 (DECEMBER 23 15:09) H 95 (DECEMBER 24 05:19) MAP 109 (DECEMBER 24 05:19) 67 (DECEMBER 23 15:09) 109 (DECEMBER 24 05:19) SpO2 99 (DECEMBER 24 05:19) 96 (DECEMBER 23 11:40) 100 (DECEMBER 23 23:21) GEN:sleepy, NAD CV: S1S2, no murmur. No LE edema, tachy Resp: decreased BS, NL Abd: Soft, NT, ND +BS Skin: no rashes on inspection and palpation. Ext: No LE edema. No joint edema, erythema. Neuro: orietned to self Data: Reviewed PRE-OP CBC and BMP from 12/16/18 Blood Gases (Current Encounter/Past 24 Hours) No Blood Gas Results Found (Past 24 Hours) Electrolytes(BMP) Results (Current Encounter/Past 24 Hours) Sodium Level 139 mmol/L 12/24/2018 05:30 Potassium Level 3.8 mmol/L 12/24/2018 05:30 Chloride Level 110 mmol/L 12/24/2018 05:30 Carbon Dioxide Level 24 mmol/L 12/24/2018 05:30 Anion Gap 9 12/24/2018 05:30 Blood Urea Nitrogen 8 mg/dL 12/24/2018 05:30 Glucose Level 106 mg/dL 12/24/2018 05:30 Calcium Level 7.5 mg/dL LOW 12/24/2018 05:30 Creatinine Level 0.80 mg/dL 12/24/2018 05:30 Cardiac Markers (Current Encounter/Past 24 Hours) No Cardiac Marker Results Found (Past 24 Hours) CBC Results (Current Encounter/Past 24 Hours) WBC 8.2 K/uL 12/24/2018 05:10 Hct 32.0 % LOW 12/24/2018 05:10 Hgb 10.5 g/dL LOW 12/24/2018 05:10 Platelet Count 121 K/uL LOW 12/24/2018 05:10 CMP Results (Current Encounter/Past 24 Hours) Creatinine Level 0.80 mg/dL 12/24/2018 05:30 Bun/Creatinine 10.0 12/24/2018 05:30 eGFR >60 mL/min/1.73m2 12/24/2018 05:30 eGFR NonAfrican >60 mL/min/1.73m2 12/24/2018 05:30 Sodium Level 139 mmol/L 12/24/2018 05:30 Potassium Level 3.8 mmol/L 12/24/2018 05:30 Chloride Level 110 mmol/L 12/24/2018 05:30 Carbon Dioxide Level 24 mmol/L 12/24/2018 05:30 Anion Gap 9 12/24/2018 05:30 Blood Urea Nitrogen 8 mg/dL 12/24/2018 05:30 Glucose Level 106 mg/dL 12/24/2018 05:30 Calcium Level 7.5 mg/dL LOW 12/24/2018 05:30 Coagulation Results (Current Encounter/Past 24 Hours) No Coagulation Results Found (Past 24 Hours) Creatinine Clearance (Current Encounter/Past 24 Hours) Creatinine Level 0.80 mg/dL 12/24/2018 05:30 Bun/Creatinine 10.0 12/24/2018 05:30 Estimated Creatinine Clearance 87.15 mL/Min 12/24/2018 05:30 Impression: spondylolisthesis Lspine; s/p [id number] PLIF per Dr. Akers mild tachycardia, ?pain hx Arthritis hx Colitis hx DJD (degenerative joint disease) of thoracic spine History of obstructive sleep apnea hx Parkinson disease hx Scoliosis hx back pain with RLE radiculopathy hx right inguinal surgery 15 yrs ago. hx left inguinal hernia 4 yrs ago. hx bilat catarract surgery 2018. hx colonoscopy many times. Plan: EKG x 1 recommend utilizing tylenol for pain and only give 5 mg oxycodone instead of 10 mg while at hospital Pending DC to [facility] Acute today per DC network planner and Dr. Akers wean O2 for sat >92% limit narcs- watch sedation level; limit narcotic us at [facility] Monitor HTN; add PRN's, hold parameters bowel [...] made in conjunction with Joselyn Salcido MD documented in this encounter Plan of Treatment Not on file documented as of this encounter Visit Diagnoses Not on filedocumented in this encounter
--- OUTSIDE RECORDS SUMMARY | 2025-01-27 13:07 | XMS_ITS | Clinical Summary ---
Author Organization [facility] Address [address] [place] [address] Phone Care Team Providers Care Serging Machine Operator Name Role Phone Alyssa Otero MD [phone] [ ] Conditions or Problems Problem Name Problem Code Onset Date Status Entry Date Provider Comment Standard Description Annotate Decubitus ulcer 745079428 (SNOMED CT) 12/14 Active 12/14 Janae Flowood Pressure ulcer Candidiasis, skin 83410502 (SNOMED CT) 12/14 Active 12/14 Janae Flowood Candidiasis of skin Diarrhea, antibiotic associated 932715095 (SNOMED CT) 12/14 Active 12/14 Janae Flowood Antibiotic-ass ociated diarrhea Abscess, epidural G06.1 (ICD-10-CM) 12/13 Active 12/13 Joslyn Tim 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, thoracic region M46.24 (ICD-10-CM) 12/13 Active 12/13 Joslyn Tim Osteomyelitis of vertebra, thoracic region Pseudomonas infection 30121559 (SNOMED CT) 12/13 Active 12/13 Joslyn Tim Bacterial infection caused by Pseudomonas Positive blood cultures 894501466 (SNOMED CT) 12/13 Active 12/13 Joslyn Tim Organism isolated by microbial culture Benign Essential Hypertension 3246361 (SNOMED CT) 12/13 Active 12/13 Joslyn Tim Benign essential hypertension 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, 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 (ICD-10-CM) 12/13 Active 12/13 Joslyn Tim Rheumatoid arthritis without rheumatoid factor, multiple sites RA with rheumatoid factor, multiple sites M05.79 (ICD-10-CM) 12/13 Active 12/13 Joslyn Dumont Rheumatoid arthritis with rheumatoid factor of multiple sites without organ or systems involvement Parkinson's disease 38544726 (SNOMED CT) 12/13 Active 12/13 Joslyn Dumont Parkinson's disease Medications Medication Instructions Start Date Stop Date Generic Name NDC Provider CEFEPIME HCL 2 GM INJECTION SOLUTION RECONSTITUTED 2 gms IV Q 12 hours/Bioscript s/Wedco 12/14 CEFEPIME HCL 90905658682 Janae Castaneda NYSTATIN POWD apply to groin rash bid NYSTATIN 34459783250 Alyssa Otero MD FLUCONAZOLE 200 MG TABS 1 tablet FLUCONAZOLE 17505742186 Alyssa Otero MD CEFEPIME HCL 2 GM INJECTION SOLUTION RECONSTITUTED 2 gms IV Q 12 hours/Bioscript s/Wedco 09/23 CEFEPIME HCL 96874950005 Monica Sepulveda RN SENNA 8.6 MG TABS Take one by mouth daily SENNOSIDES 70230608079 Eva Dodson MIRALAX ORAL PACKET 17 g daily POLYETHYLENE GLYCOL 3350 [id number] Eva Dodson OXYCODONE HCL 5 MG CAPS Q6H/PRN OXYCODONE HCL 61540223208 Eva Dodson OXYBUTYNIN CHLORIDE ER 5 MG [id number] Take by mouth twice a day OXYBUTYNIN CHLORIDE 80468668601 Eva Dodson MICONAZOLE NITRATE 2 % POWD applt twice daily MICONAZOLE NITRATE 88056945137 Eva Dodson CVS MELATONIN 5 MG TABS Take one by mouth daily MELATONIN 56237356143 Eva Dodson MEGESTROL ACETATE 40 MG/ML SUSP 10Milliliter* *OralTwoJeramy esPerDay MEGESTROL ACETATE 47950098774 Eva Dodson ANUCORT-HC 25 MG SUPP take as needed HYDROCORTISONE ACETATE 03350839487 Eva Dodson DIAZEPAM 2 MG TABS Take by mouth twice a day DIAZEPAM 20166118566 Eva Dodson VITAMIN D (CHOLECALCIFEROL ) 25 MCG (1000 UT) CAPS Take one by mouth daily CHOLECALCIFEROL 02846508706 Eva Dodson BISACODYL 10 MG SUPP once daily BISACODYL 02508235246 Eva Dodson BALSAM AMIE-CASTOR OIL OINT 1Application* *TopicalTwo TimesPerDay BALSAM AMIE-CASTOR OIL 18500013376 Eva Dodson BACLOFEN 10 MG TABS Take one by mouth four times daily, morning, noon, early evening and bedtime. BACLOFEN 16480499275 Eva Dodson AMANTADINE HCL 100 MG CAPS Take by mouth twice a day AMANTADINE HCL 94584108724 Eva Dodson ACETAMINOPHEN 325 MG TABS Q6H/PRN ACETAMINOPHEN 80285507053 Eva Dodson AMLODIPINE BESYLATE 10 MG TABS Take one by mouth daily AMLODIPINE BESYLATE 02356422598 Eva Dodson ACIDOPHILUS LACTOBACILLUS CAPS Take one by mouth daily LACTOBACILLUS 25210956544 Eva Dodson CARBIDOPA-LEVODO PA 25-100 MG TABS Take one by mouth four times daily, morning, noon, early evening and bedtime. CARBIDOPA-LEVODOP A 97002021508 Eva Dodson AZILECT 1 MG TABS Take one by mouth daily RASAGILINE MESYLATE 70414701372 Eva Dodson Medications Administered No information available. Allergies, Adverse Reactions, Alerts No information available. Results Date Name Value Unit Range Flag Description Chart Maintenance: cbc, cmp, crp CRP 3.3 mg/dL C reactive pr otein [Mass/volume] in Serum or Plasma LYMPHCT AUTO 2.2 10*3/mm3 Lymphoc ytes [#/volume] in Blood by Automated count LYMPHS % 34 % Lymphocytes/ 100 leukocytes in Blood by Automated count ABS NEUTROPH 3.7 10*3/uL Neutroph ils [#/volume] in Blood NEUTROP BF 56 % Neutrophil s/100 leukocytes in Body fluid PLATELETS 218 10*3/mm3 Platelets [#/volume] in Blood by Automated count HCT 33.1 % Hematocrit [V olume Fraction] of Blood by Automated count HGB 11.5 g/dL Hemoglobin [M ass/volume] in Blood RBC 4.0 10*6/mm3 Erythrocytes [#/volume] in Blood by Automated count WBC 6.5 10*3/mm3 Leukocytes [ #/volume] in Blood by Automated count BILI TOTAL 0.4 mg/dL Bilirubin. total [Mass/volume] in Serum or Plasma SGOT (AST) 11 U/L Aspartate aminotransferase [Enzymatic activity/volume] in Serum or Plasma SGPT (ALT) 9 U/L Alanine am inotransferase [Enzymatic activity/volume] in Serum or Plasma ALK PHOS 84 U/L Alkaline naif sphatase [Enzymatic activity/volume] in Blood CREATININE 1.1 mg/dL Creatinine [Mass/volume] in Serum or Plasma BUN 25 mg/dL Urea nitrogen [Mass/volume] in Serum or Plasma CALCIUM 9.4 mg/dL Calcium [Mole s/volume] in Serum or Plasma POTASSIUM 3.9 mmol/L Potassium [ Moles/volume] in Serum or Plasma SODIUM 139 mmol/L Sodium [Moles /volume] in Serum or Plasma GLUCOSE SER 86 mg/dL Glucose [ Mass/volume] in Serum or Plasma Office Visit: Room 10 HFU MEDS REVIEW Done Documenta tion of current medications (procedure) SMOK STATUS Never smoker 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 Procedures No information available. Vital Signs Date Name Value Unit Description BMI (Body Mass Index) 27.32 kg/m2 Bod y Mass Index (Ratio) Body Temperature 97.5 [degF] temperat ure E&M BP Diastolic 62 mm[Hg] blood pressu re, diastolic BP Systolic 132 mm[Hg] blood pressur e, systolic Heart Rate 76 /min pulse rate Height 69 [in_us] height E&M Respiratory Rate 14 /min respirat ory rate E&M Weight Measured 185 [lb_av] weight E& M Weight Measured 185 [lb_av] weight E& M Immunizations No information available. Advance Directives No information available.
--- OUTSIDE RECORDS SUMMARY | 2025-01-27 13:07 | XMS_ITS | Encounter Summary ---
Author Organization [employer] ([place], [place], [place], [place]) Address [address] [place] [address] Care Team Providers Care Matchbook Assembler Name Role Phone Unavailable Primary Care Provider Unavailabl e Encounter Details Date Type Department Care Team (Late st Contact Info) Description 11/08/2019 Transcribed Document [facility] Neurology - [address] [facility] [address] [place] [address] Heide Akers MD [address] [place] [address] Social History Tobacco Use Types Packs/Day Years Used Date Smoking Tobacco: Never Assessed Sex and Gender Information Value Date Recorded Sex Assigned at Not on file Legal Sex Male 2:38 PM CDT Gender Identity Not on file Sexual Orientation Not on file documented as of this encounter Miscellaneous Notes * Cerner Conversion Note - Heide Akers MD - 11/08/2019 3:38 PM EDT Patient: SIMBA MAYEN JR Age: 69 years Sex: Male : 1950 Associated Diagnoses: None Author: HEIDE AKERS MD-SNU Patient relates some sensation in feet bilaterally. Spontaneous movement of left foot witnessed. at bedside. Discuss the possibility of ischemic event to cord. Hopeful to see recovery in time. Thoracic MRI shows good decompression no cord issues. D/c EILEEN tomorrow. OK to d/c to rehab anytime from NS standpoint. Needs gilson removed 2 weeks post op. documented in this encounter Plan of Treatment Not on file documented as of this encounter Visit Diagnoses Not on filedocumented in this encounter
--- OUTSIDE RECORDS SUMMARY | 2025-01-27 13:07 | XMS_ITS | Encounter Summary ---
Author Organization [employer] ([place], [place], [place], [place]) Address [address] [place] [address] Care Team Providers Care Fire Operations Forester Name Role Phone Unavailable Primary Care Provider Unavailabl e Encounter Details Date Type Department Care Team (Late st Contact Info) Description 11/02/2019 Transcribed Document [facility] [place] [address] ProviderAgnieszka MD [address] [place], [place] [id number] Social History Tobacco Use Types Packs/Day Years Used Date Smoking Tobacco: Never Assessed Sex and Gender Information Value Date Recorded Sex Assigned at Not on file Legal Sex Male 2:38 PM CDT Gender Identity Not on file Sexual Orientation Not on file documented as of this encounter Miscellaneous Notes * Cerner Conversion Note - Historical ProviderMD - 11/02/2019 6:26 AM CDT Pain Assessment Entered On: 11/03/2019 17:32 EDT Performed On: 11/03/2019 16:44 EDT by DUANE CHUN RN Intervention Information: acetaminophen-HYDROcodone Performed by DUANE CHUN RN on 11/03/2019 15:44:00 EDT acetaminophen-HYDROcodone,1.5Tab Oral,Pain (Moderate 4-6) Pain Assessment Pain Assessment : Follow-up assessment Pain Scale Goal : 4 Pain Scale Used : 0-10 Scale DUANE CHUN RN - 11/03/2019 17:32 EDT Pain Scale Intensity : 8 DUANE CHNU RN - 11/03/2019 17:32 EDT Image 4 - Images currently included in the form version of this document have not been included in the text rendition version of the form. documented in this encounter Plan of Treatment Not on file documented as of this encounter Visit Diagnoses Not on filedocumented in this encounter
--- OUTSIDE RECORDS SUMMARY | 2025-01-27 13:07 | XMS_ITS | Encounter Summary ---
Author Organization [employer] ([place], [place], [place], [place]) Address [address] [place] [address] Care Team Providers Care Bank President Name Role Phone Unavailable Primary Care Provider Unavailabl e Encounter Details Date Type Department Care Team (Late st Contact Info) Description 11/08/[address] [facility] [place] [facility] [place] [address] ProviderAgnieszka MD [address] [id number] Social History Tobacco Use Types Packs/Day Years Used Date Smoking Tobacco: Never Assessed Sex and Gender Information Value Date Recorded Sex Assigned at Not on file Legal Sex Male 2:38 PM CDT Gender Identity Not on file Sexual Orientation Not on file documented as of this encounter Miscellaneous Notes * Cerner Conversion Note - Historical ProviderMD - 11/08/2019 1:14 PM CDT Event Note Entered On: 11/08/2019 13:28 EDT Performed On: 11/08/2019 13:14 EDT by DUANE CHUN, RN Event Note Event Date/Time : 11/08/2019 11:10 EDT Event Location : Assigned room Event Details : Nursing assessment additional narrative DUANE CHUN RN - 11/08/2019 13:14 EDT Description of Event : Pt rated his pain a 7 , had refused Oxycodone at 08:30 am and was being reassessed forpain at 8:46. I read the MAR stating Morphine was available for pain 7 and above. I got the Morphine 2mg dose, scanned his bracelet and scanned the vial. A pop up showed up that said that Morphine is on the MAR however it is not witnin the task list for time to give to patient. An administrative note was made to the medication and delivered to the patient. In checking, the note did not show up and there was no documentation showing on the MAR that it had been administered to the pt. I calledpharmacy for assistance with this issue suggesting the Morphine be removed because there is an Alert History profile that it may be contrary to give with another on of his meds. DUANE CHUN RN - 11/08/2019 14:04 EDT Electronically signed by Taryn [facility] Conversion Education Coordinator Cerner at 11/12/2022 9:35 PM CDT documented in this encounter Plan of Treatment Not on file documented as of this encounter Visit Diagnoses Not on filedocumented in this encounter
--- OUTSIDE RECORDS SUMMARY | 2025-01-27 13:07 | XMS_ITS | Encounter Summary ---
Author Organization [employer] ([place], [place], [place], [place]) Address [address] [place] [address] Care Team Providers Care Radio News Writer Name Role Phone Unavailable Primary Care Provider Unavailabl e Encounter Details Date Type Department Care Team (Late st Contact Info) Description 11/07/2019 Transcribed Document [facility] [place] Family Medicine [address] [place] [address] ProviderAgnieszka MD [address], [place] [id number] Social History Tobacco Use Types Packs/Day Years Used Date Smoking Tobacco: Never Assessed Sex and Gender Information Value Date Recorded Sex Assigned at Not on file Legal Sex Male 2:38 PM CDT Gender Identity Not on file Sexual Orientation Not on file documented as of this encounter Miscellaneous Notes * Cerner Conversion Note - Historical ProviderMD - 11/07/2019 10:11 AM CDT Attempt to Treat, OT Entered On: 11/07/2019 10:48 EDT Performed On: 11/07/2019 10:11 EDT by JOSE GONSALVES OTR/Lc Attempt to Treat Unable to Treat Due To : Patient on hold Inability to Treat Comment : Per MY Koch, hold for neuro sx consult due to no sensory or motor movement below waist since sx. OT will f/u tomorrow. JOSE GONSALVES OTR/L - 11/07/2019 10:47 EDT documented in this encounter Plan of Treatment Not on file documented as of this encounter Visit Diagnoses Not on filedocumented in this encounter
--- OUTSIDE RECORDS SUMMARY | 2025-01-27 13:07 | XMS_ITS | Encounter Summary ---
Author Organization [employer] ([place], [place], [place], [place]) Address [address] [place] [address] Care Team Providers Care Retirement Benefits Specialist Name Role Phone Unavailable Primary Care Provider Unavailabl e Encounter Details Date Type Department Care Team (Late st Contact Info) Description 11/02/2019 Transcribed Document [facility] [place] [address] [place] [address] ProviderAgnieszka MD [address], [place] [id number] Social History Tobacco Use Types Packs/Day Years Used Date Smoking Tobacco: Never Assessed Sex and Gender Information Value Date Recorded Sex Assigned at Not on file Legal Sex Male 2:38 PM CDT Gender Identity Not on file Sexual Orientation Not on file documented as of this encounter Miscellaneous Notes * Cerner Conversion Note - Historical ProviderMD - 11/02/2019 5:00 PM CDT Chart Check - Review Order Profile Entered On: 11/02/2019 17:14 EDT Performed On: 11/02/2019 17:00 EDT by Zee Taylor RN Chart Check Powerplans Initiated/Discontinued as Appropriate : Yes All Active Orders Reviewed : Yes Zee Taylor RN - 11/02/2019 17:14 EDT Electronically signed by Gay Centeno Conversion Commercial Loan Collection Officer Cerner at 11/12/2022 9:41 PM CDT documented in this encounter Plan of Treatment Not on file documented as of this encounter Visit Diagnoses Not on filedocumented in this encounter
--- OUTSIDE RECORDS SUMMARY | 2025-01-27 13:07 | XMS_ITS | Encounter Summary ---
Author Organization [employer] ([place], [place], [place], [place]) Address [address] [place] [address] Care Team Providers Care Pattern Wheel Maker Name Role Phone Unavailable Primary Care Provider Unavailabl e Encounter Details Date Type Department Care Team (Late st Contact Info) Description 11/08/2019 Transcribed Document [facility] [place] Family Medicine [address] [place] [address] ProviderAgnieszka MD [address] [place] [address] Social History Tobacco Use Types Packs/Day Years Used Date Smoking Tobacco: Never Assessed Sex and Gender Information Value Date Recorded Sex Assigned at Not on file Legal Sex Male 2:38 PM CDT Gender Identity Not on file Sexual Orientation Not on file documented as of this encounter Miscellaneous Notes * Cerner Conversion Note - Agnieszka ProviderMD - 11/08/2019 3:54 PM CDT Evaluation, Occupational Therapy Entered On: 11/09/2019 10:49 EDT Performed On: 11/09/2019 10:17 EDT by MARSHA JOSE OTR/L General Information, OT Co-treated by, OT : Physical Therapist General Information Comment, OT : Re-eval after T6-10 posteolateral fusion 11/04 T8-11 laminectomy for decompression of epidural abscess MARSHA JOSE OTR/L - 11/09/2019 10:54 EDT Visit Type, OT : Re-Evaluation MARSHA JOSE OTR/L - 11/09/2019 10:49 EDT Patient Orders : Order Date Order Ordering 11/02/2019 03:01 OT Evaluation and Treatment Ordered By: LORENA SAGASTUME MD-INT 11/03/2019 11:29 Occupational Therapy Additional Tx Ordered By: 11/05/2019 11:20 Occupational Therapy Evaluation and Treatme Ordered By: HEIDE KAT MD-SNLanie 11/08/2019 15:54 OT Evaluation and Treatment Ordered By: MYRTLE HOUSTON PA Active Diagnoses : 11/02/2019 12:00 Back pain 11/02/2019 12:00 Dorsalgia, unspecified 11/02/2019 12:00 Osteomyelitis, unspecified MARSHA JOSE OTR/L - 11/09/2019 10:54 EDT Therapy Diagnosis, OT : Decline in ADLs/functional mobility due to back pain. Possible sx intervention, unknown date. MARSHA JOSE OTR/L - 11/09/2019 10:49 EDT Admission Date : 11/02/2019 02:59 Personal Devices : Personal Devices Glasses Assistive Devices : Assistive Devices No Devices Recorded MARSHA JOSE OTR/L 11/09/2019 10:[address] : Fall prevention measures, Log roll precautions MARSHA JOSE OTR/L 11/09/2019 10:49 EDT General Status Patient Received Status : Supine in bed Treatment Start Time : 11/09/2019 10:04 EDT Patient Left Status : Supine in bed, RN/PCT informed, Family/Visitors at bedside, All needs met and within reach Treatment End Time : 11/09/2019 10:17 EDT Treatment Time : 13 Minute(s) MARSHA JOSE OTR/L 11/09/2019 10:54 EDT History and Environment, OT Living Situation, Therapy : Home Patient Lives With : Spouse Persons Assisting Patient at Home : Alone, Spouse Professional Skilled Services : None Persons Providing Information : Patient Home Setup : One story Stairs : Yes Stair Location(s) : Outside Outside Stairs, Number of Steps : 1 Railing Outside : No MARSHA JOSE OTR/L - 11/09/2019 10:54 EDT Prior LOF Bathing, OT : Independent Prior LOF Bed Mobility : Independent Prior LOF Upper Body Dressing, OT : Independent Prior LOF Lower Body Dressing, OT : Independent Prior LOF Toileting : Independent Prior LOF Transfer : Independent Prior LOF Grooming, OT : Independent Prior LOF for IADLs, OT : Independent MARSHA JOSE OTR/L 11/09/2019 10:54 EDT Upper Extremity Right UE Active ROM : WFL Left UE Active ROM : WFL MARSHA JOSE OTR/Lc - 11/09/2019 10:54 EDT Right Upper Extremity MMT Shoulder Flexion 0-180 : 3/fair Shoulder Extension 0-60 : 3/fair Shoulder Abduction 0-180 : 3/fair Shoulder Adduction 0-180 : 3/fair Shoulder Internal Rotation 0-90 : 3/fair Shoulder External Rotation 0-90 : 3/fair Elbow Flexion 0-150 : 3/fair Elbow Extension 0-0 : 3/fair Wrist Flexion 0-80 : 3/fair Wrist Extension 0-70 : 3/fair Forearm Pronation 0-70 : 3/fair Forearm Supination 0-85 : 3/fair Ulnar Deviation 0-45 : 3/fair RadialDeviation 0-20 : 3/fair MARSHA JOSE OTR/Lc - 11/09/2019 10:54 EDT Left Upper Extremity MMT Shoulder Flexion 0-180 : 3/fair Shoulder Extension 0-60 : 3/fair Shoulder Abduction 0-180 : 3/fair Shoulder Adduction 0-180 : 3/fair Shoulder Internal Rotation 0-90 : 3/fair Shoulder External Rotation 0-90 : 3/fair Elbow Flexion 0-150 : 3/fair Elbow Extension 0-0 : 3/fair Wrist Flexion 0-80 : 3/fair Wrist Extension 0-70 : 3/fair Forearm Pronation 0-70 : 3/fair Forearm Supination 0-85 : 3/fair Ulnar Deviation 0-45 : 3/fair RadialDeviation 0-20 : 3/fair MARSHA JOSE OTR/Lc - 11/09/2019 10:54 EDT Self Care/Home Management, OT Self Feeding Assist Level, OT : Supervision or set-up Grooming Assist Level, OT : Assist, minimal Bathing Assist Level, OT : Assist, moderate Upper Body Dressing Assist Level, OT : Assist, minimal Lower Body Dressing Assist Level, OT : Assist, maximal Toileting Assist Level : Assist, maximal MARSHA JOSE OTR/Lc - 11/09/2019 10:54 EDT Functional Mobility Mobility Grid Supine to Sit : Rehab Maximal assistance Sit to Supine : Rehab Maximal assistance MARSHA JOSE OTR/Lc Adhikari 11/09/2019 10:54 EDT Cognition Assessment, OT Orientation : Oriented x 4 MARSHA JOSE OTR/L - 11/09/2019 10:54 EDT Indication Assessment, OT Occupational Therapy Indicated : Yes Problem List, OT : Impaired, bed mobility, Impaired, activities daily living, Impaired functional mobility Potential Barriers, OT : None evident Rehabilitation Potential, OT : Good MARSHA JOSE OTR/Lc - 11/09/2019 10:54 EDT Plan of Care, OT OT Tx Plan/Goals Established w Patient : Yes OT Frequency Rehab : Five days per week OT Duration Rehab : Fourteen days OT Treatments Planned : Activities of daily living, Functional mobility training, Therapeutic activities MARSHA JOSE OTR/Lc - 11/09/2019 10:54 EDT Custodial Goals, OT Grooming LTG Grid Goal #1 Goal #2 Activity : Grooming Grooming Assist : Independent, modified Supervision or set up Date to Meet : 11/17/2019 EDT 11/23/2019 EDT Goal Status : Discontinue Revised MARSHA JOSE OTR/Lc - 11/09/2019 10:54 EDT MARSHA JOSE OTR/Lc - 11/09/2019 10:54 EDT Bathing LTG Grid Goal #1 Activity : Bathing Assist : Assist, minimal Date to Meet : 11/23/2019 EDT Goal Status : MARSHA Hdz OTR/Lc - 11/09/2019 10:54 EDT Dressing, Lower Body LTG Grid Goal #1 Activity : Dressing, Lower Body Assist : Assist, minimal Date to Meet : 11/23/2019 EDT Goal Status : Revised MARSHA JOSE OTR/Lc - 11/09/2019 10:54 EDT Toilet Transfer LTG Grid Goal #1 Activity : Toilet Transfer, Stand Pivot Sit Assist : Supervision or set up Date to Meet : 11/17/2019 EDT Goal Status : Discontinue MARSHA JOSE OTR/Lc - 11/09/2019 10:54 EDT Bed Mobility/ Bed Transfer LTG Grid Goal #1 Activity : Bed Mobility/Bed Transfer Assist : Assist, minimal Date to Meet : 11/23/2019 EDT Goal Status : Revised MARSHA JOSE OTR/Lc - 11/09/2019 10:54 EDT Other LTG Grid Goal #1 Goal : Pt will sit EOB x 5' with SBA for balance during functional activity Date to Meet : 11/23/2019 EDT Goal Status : Initial goal MARSHA JOSE OTR/Lc - 11/09/2019 10:54 EDT Treatment Note Subjective Comment : Pt agreeable Patient's Response to Treatment : Pt tolerated re-evaluation well Additional Objective Information : Pt supine upon arrival. Pt max A supine to sit. Pt sat EOB with min-mod A for balance. Pt reports no feeling or movement in LEs. Pt returned to supine, left with needs met and CL in reach. Assessment : Pt will benefit from OT services during hospital admission, pt will extensive rehab at discharge Plan for Treatment : See goals MARSHA JOSE OTR/Lc - 11/09/2019 10:[address] [facility] OT Charges OT Re-Evaluation : 1 MARSHA JOSE OTR/Lc - 11/09/2019 10:54 EDT documented in this encounter Plan of Treatment Not on file documented as of this encounter Visit Diagnoses Not on filedocumented in this encounter
--- OUTSIDE RECORDS SUMMARY | 2025-01-27 13:07 | XMS_ITS | Encounter Summary ---
Author Organization [employer] ([place], [place], [place], [place]) Address [address] [place] [address] Care Team Providers Care Refrigerating Machine Operator Name Role Phone Unavailable Primary Care Provider Unavailabl e Encounter Details Date Type Department Care Team (Late st Contact Info) Description 12/24/[address] [facility] [place] Family Medicine [address] [place] [address] ProviderAgnieszka MD [address] [place], [place] [id number] Social History Tobacco Use Types Packs/Day Years Used Date Smoking Tobacco: Never Assessed Sex and Gender Information Value Date Recorded Sex Assigned at Not on file Legal Sex Male 2:38 PM CDT Gender Identity Not on file Sexual Orientation Not on file documented as of this encounter Miscellaneous Notes * Cerner Conversion Note - Historical ProviderMD - 12/24/2018 3:59 PM CDT Stroke/Warfarin Instructions Entered On: 12/24/2018 15:59 EDT Performed On: 12/24/2018 15:59 EDT by ADALI NAIR RN Stroke/Warfarin Instructions Stroke/TIA Discharge Ins : N/A Warfarin Discharge Ins : N/A ADALI NAIR RN - 12/24/2018 15:59 EDT documented in this encounter Plan of Treatment Not on file documented as of this encounter Visit Diagnoses Not on filedocumented in this encounter
--- OUTSIDE RECORDS SUMMARY | 2025-01-27 13:07 | XMS_ITS | Encounter Summary ---
Author Organization [employer] ([place], [place], [place], [place]) Address [address] [place] [address] Care Team Providers Care Airplane Gastank Liner Assembler Name Role Phone Unavailable Primary Care Provider Unavailabl e Encounter Details Date Type Department Care Team (Late st Contact Info) Description 11/08/2019 Transcribed Document [facility] [place] Family Medicine Pending sale to [facility] [address] ProviderAgnieszka MD [address], [place] [id number] Social History Tobacco Use Types Packs/Day Years Used Date Smoking Tobacco: Never Assessed Sex and Gender Information Value Date Recorded Sex Assigned at Not on file Legal Sex Male 2:38 PM CDT Gender Identity Not on file Sexual Orientation Not on file documented as of this encounter Miscellaneous Notes * Cerner Conversion Note - Historical ProviderMD - 11/08/2019 6:00 AM CDT Pain Assessment Entered On: 11/08/2019 10:47 EDT Performed On: 11/08/2019 7:03 EDT by DUANE CHUN RN Intervention Information: acetaminophen Performed by Geno Whipple RN on 11/08/2019 06:03:00 EDT acetaminophen,650mg Oral Pain Assessment Pain Assessment : Follow-up assessment Pain Scale Goal : 2 Pain Scale Used : 0-10 Scale DUANE CHUN RN - 11/08/2019 10:47 EDT Pain Scale Intensity : 0 DUANE CHUN RN - 11/08/2019 10:47 EDT Image 4 - Images currently included in the form version of this document have not been included in the text rendition version of the form. documented in this encounter Plan of Treatment Not on file documented as of this encounter Visit Diagnoses Not on filedocumented in this encounter
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
--- OUTSIDE RECORDS SUMMARY | 2025-01-27 13:07 | XMS_ITS | Encounter Summary ---
Author Organization [employer] ([place], [place], [place], [place]) Address [address] [place] [address] Care Team Providers Care Dinkey Engineer Name Role Phone Unavailable Primary Care Provider Unavailabl e Encounter Details Date Type Department Care Team (Late st Contact Info) Description 12/23/2018 Transcribed Document [facility] Neurology - [address] [facility] [address] [place] [address] Mark Akers MD [address] [place] [address] Social History Tobacco Use Types Packs/Day Years Used Date Smoking Tobacco: Never Assessed Sex and Gender Information Value Date Recorded Sex Assigned at Not on file Legal Sex Male 2:38 PM CDT Gender Identity Not on file Sexual Orientation Not on file documented as of this encounter Miscellaneous Notes * Cerner Conversion Note - Mark Akers MD - 12/23/2018 8:56 AM EDT Patient: SIMBA MAYEN JR Age: 68 years Sex: Male : 1950 Associated Diagnoses: None Author: THERESA SHORT PA Subjective Back pain, but patient wants to limit pain medication. Objective VS/Measurements Vitals Signs (last 24 hrs) [...] (DECEMBER 22 21:00) 100 (DECEMBER 22 10:00) Pleasant. Incision intact with moderate bloody drainage on dressing. Moving lower extremities. EILEEN with 480cc since surgery. Impression and Plan POD 1 [id number] fusion. Continue drain. Keep sotomayor until ambulatory. Heparin for dvt prophylaxis. PT/OT. documented in this encounter Plan of Treatment Not on file documented as of this encounter Visit Diagnoses Not on filedocumented in this encounter
--- OUTSIDE RECORDS SUMMARY | 2025-01-27 13:07 | XMS_ITS | Encounter Summary ---
Author Organization [employer] ([place], [place], [place], [place]) Address [address] [place] [address] Care Team Providers Care Quality Control Microbiologist Name Role Phone Unavailable Primary Care Provider Unavailabl e Encounter Details Date Type Department Care Team (Late st Contact Info) Description 11/02/2019 Transcribed Document [facility] [place] Family Medicine [address] [place] [address] ProviderAgnieszka MD [address] [place], [place] [id number] Social History Tobacco Use Types Packs/Day Years Used Date Smoking Tobacco: Never Assessed Sex and Gender Information Value Date Recorded Sex Assigned at Not on file Legal Sex Male 2:38 PM CDT Gender Identity Not on file Sexual Orientation Not on file documented as of this encounter Miscellaneous Notes * Cerner Conversion Note - Historical ProviderMD - 11/02/2019 9:43 AM CDT Advance Directive Entered On: 11/02/2019 10:48 EDT Performed On: 11/02/2019 9:43 EDT by KOBI PALACIOS Advance Directive Patient has Advance Directive *Q : No, patient requests information about Advance Directive Patient Given Information about AD : Yes Advance Directive Comment : Discussed Living Will; Mr. Cuevas requested a booklet of information; Gave copy of Personal Choices booklet; He reported he would call for water server if/when he is ready to complete a Living Will KOBI PALACIOS - 11/02/2019 10:48 EDT documented in this encounter Plan of Treatment Not on file documented as of this encounter Visit Diagnoses Not on filedocumented in this encounter
--- OUTSIDE RECORDS SUMMARY | 2025-01-27 13:07 | XMS_ITS | Encounter Summary ---
Author Organization [employer] ([place], [place], [place], [place]) Address [address] [place] [address] Care Team Providers Care Snowboard Designer Name Role Phone Unavailable Primary Care Provider Unavailabl e Encounter Details Date Type Department Care Team (Late st Contact Info) Description 12/24/2018 Transcribed Document [facility] [place] Family Medicine [facility] [place] [address] ProviderAgnieszka MD [address] [place] [address] Social History Tobacco Use Types Packs/Day Years Used Date Smoking Tobacco: Never Assessed Sex and Gender Information Value Date Recorded Sex Assigned at Not on file Legal Sex Male 2:38 PM CDT Gender Identity Not on file Sexual Orientation Not on file documented as of this encounter Miscellaneous Notes * Cerner Conversion Note - Historical ProviderMD - 12/24/2018 6:45 PM CDT Nursing Discharge Summary Entered On: 12/24/2018 18:46 EDT Performed On: 12/24/2018 18:45 EDT by ADALI NAIR distance learning administrator Documentation Discharge Date/Time : 12/24/2018 16:25 EDT Patient Disposition, General : Discharge Discharge To : Rehabilitation unit/facility Mode Of Departure, General Discharge : Private vehicle Accompanied By, Discharge : Son IV Discontinued : Yes Personal Belongings With Patient : Yes Prescriptions Given to Patient : Other: placed in packet Discharge Instructions Reviewed With, Opportunity For Questions Given : Patient, Spouse Patient Education Completed : Yes Teaching Method : Explanation Teaching Evaluation : Verbalizes understanding ADALI NAIR, RN - 12/24/2018 18:45 EDT documented in this encounter Plan of Treatment Not on file documented as of this encounter Visit Diagnoses Not on filedocumented in this encounter
--- OUTSIDE RECORDS SUMMARY | 2025-01-27 13:07 | XMS_ITS | Encounter Summary ---
Author Organization [employer] ([place], [place], [place], [place]) Address [address] [place] [address] Care Team Providers Care Unmanned Equipment Operator Name Role Phone Unavailable Primary Care Provider Unavailabl e Encounter Details Date Type Department Care Team (Late st Contact Info) Description 11/08/2019 Transcribed Document [facility] [place] [address] [place] [address] ProviderAgnieszka MD [address] [place], [place] [id number] Social History Tobacco Use Types Packs/Day Years Used Date Smoking Tobacco: Never Assessed Sex and Gender Information Value Date Recorded Sex Assigned at Not on file Legal Sex Male 2:38 PM CDT Gender Identity Not on file Sexual Orientation Not on file documented as of this encounter Miscellaneous Notes * Cerner Conversion Note - Historical ProviderMD - 11/08/2019 2:00 AM CDT Seed Sorter Details Entered On: 11/08/2019 5:11 EDT Performed On: 11/08/2019 2:00 EDT by Geno Whipple RN Order Details Transport Mode Order Detail : Stretcher/Gurney Isolation Precautions Order Detail : Standard Precautions Order Detail : N/A IV Order Detail : 0 Oxygen Order Detail : 0 Nurse Collect Order Detail : 1 Lift/Transfer : Independent Central Line Order Detail : Yes Room Service : Not Appropriate Arterial Line : No Geno Whipple RN - 11/08/2019 5:11 EDT documented in this encounter Plan of Treatment Not on file documented as of this encounter Visit Diagnoses Not on filedocumented in this encounter
--- OUTSIDE RECORDS SUMMARY | 2025-01-27 13:07 | XMS_ITS | Encounter Summary ---
Author Organization [employer] ([place], [place], [place], [place]) Address [address] [place] [address] Care Team Providers Care Channeling Machine Operator Name Role Phone Unavailable Primary Care Provider Unavailabl e Encounter Details Date Type Department Care Team (Late st Contact Info) Description 11/02/2019 Transcribed Document [facility] [place] Family Medicine [facility] [place] [address] ProviderAgnieszka MD [address], [place] [address] Social History Tobacco Use Types Packs/Day Years Used Date Smoking Tobacco: Never Assessed Sex and Gender Information Value Date Recorded Sex Assigned at Not on file Legal Sex Male 2:38 PM CDT Gender Identity Not on file Sexual Orientation Not on file documented as of this encounter Miscellaneous Notes * Cerner Conversion Note - Agnieszka ProviderMD - 11/02/2019 4:32 PM CDT Patient: SIMBA MAYEN JR Age: 69 years Sex: Male : 1950 Associated Diagnoses: None Author: COSMO BOWENS MD-INF Basic Information cc: acute osteomyelitis of the thoracic spine HISTORY OF PRESENT ILLNESS 69-year-old male with a history spinal stenosis admitted through the ED after he presented with a subacute history of progressive back pain. Most of the information is obtained from the chart as the patient is very lethargic after a dose of morphine administered recently He underwent T10 to S1 posterolateral fusion 11/2018 which involved multilevel laminectomy and thoracic through sacral posterior instrumentation by Dr. Akers He had done quite well until 2 weeks ago when he developed pain in his mid back while doing abdominal crunches. The pain is spasm-like in nature, worsened by movement and is associated with swelling on the right side of his mid back. He has tried muscle relaxers and NSAIDS without relief. He denied fever, chills, any lower extremity weakness, numbness, or urinary symptoms. Patient denies any fever or chills His daughter in law called the ED to say called that oral intake has been poor over several day and that she noted he had been slower than usual. He denied fever, history of IV drug abuse, falls or trauma. CT scan in the ED revealed erosion of the endplate of T9 and the superior endplate of T10 with compression deformity of the superior endplate of T10 with abnormal swelling of the surrounding soft tissue. There was lucency surrounding the right pedicle screw at T10. PAST MEDICAL HISTORY Rheumatoid Arthritis on Remicade Colitis DJD (degenerative joint disease) of thoracic spine History of obstructive sleep apnea Parkinson disease Scoliosis PSH: Thoracolumbar fusion, multilevel laminectomy and thoracic through iliac posterior instrumentation 11/2018 Right inguinal surgery 15 yrs ago Left inguinal hernia 4 yrs ago. Bilateral/ cataract surgery 2018. Colonoscopy Social history Patient denies any smoking or alcohol use Family History not relevant Review of Systems unable to obtain Health Status Current medications: (Selected) Inpatient Medications Ordered Azilect: 1 mg, Oral, Daily Colace: 100 mg, Oral, BID DuoNeb 0.5 mg-2.5 mg/3 mL inhalation solution: 3 mL, Nebulized Inhalation, RT_Q6H, PRN: Shortness of Breath MiraLax: 17 Gram, Oral, Daily, PRN: Constipation [place] 5 mg-325 mg oral tablet: 1.5 Tab, Oral, Q6H, PRN: Pain (Moderate 4-6) Sodium Chloride 0.9% intravenous solution 1,000 mL: 75 mL/Hr, IntraVENous Zofran: 4 mg, IV Push, Q4H, PRN: Nausea Zosyn + Sodium Chloride 0.9% intravenous solution 100 mL: 3.375 Gram, 33.33 mL/Hr, IV Piggyback, Q6H carbidopa-levodopa 25 mg-100 mg oral tablet: 1 Tab, Oral, QID heparin: 5,000 Units, SubCutaneous, Q8HInt hydrALAZINE: 10 mg, IV Push, Q6H, PRN: Hypertension lactobacillus acidophilus: 1 Cap, Oral, Daily morphine: 2 mg, IV Push, Q2H, PRN: Pain (Severe 7-10) sodium chloride 0.9% injectable solution: 10 mL, IV Push, Q8H vancomycin + Sodium Chloride 0.9% intravenous solution 250 mL: 1,250 mg, 250 mL/Hr, IV Piggyback, [id number] Documented Medications Documented Azilect 1 mg oral tablet: 1 Tab, Oral, Daily, 30 Tab, 0 Refill(s) Remicade: 10 mg/kg, IntraVENous, [id number], for Ulcerative Colitis; Last dose: 09/29/2019, 0 Refill(s) carbidopa-levodopa 25 mg-100 mg oral tablet: 1 Tab, Oral, QID, 120 Tab, 0 Refill(s) Physical Examination VS/Measurements Vitals Signs (last 24 hrs) Last Charted Minimum Maximum Temp 98.4 (NOV 01 05:00) 98.4 (NOV 01 05:00) 98.6 (NOV 01 00:47) Apical HR 72 (NOV 01 11:09) 64 (NOV 01 04:32) 90 (NOV 01 05:00) Periph HR 81 (NOV 01 02:52) 81 (NOV 01 02:52) 110 (NOV 01 00:47) Resp Rate 18 (NOV 01 05:00) 18 (NOV 01 02:52) 20 (NOV 01 00:47) SBP H 163 (NOV 01 05:00) H 163 (NOV 01 05:00) H 188 (NOV 01 02:52) DBP H 103 (NOV 01 05:00) H 99 (NOV 01 02:52) H 107 (NOV 01 00:47) SpO2 97 (NOV 01 02:52) 97 (NOV 01 02:52) 99 (NOV 01 00:47) , Measurements from flowsheet : Measurements 11/02/2019 3:16 EDT Height Source Stated Height Entry Format [place] Height/Length, LITHUANIAN (ft) 5 ft Height/Length LITHUANIAN 9 Inch CLINICALHEIGHT 175.26 cm [place] Body Weight 70 kg Weight Source Standing scale Weight Entry Format [place] Weight [place] lb 178 lb Weight [place] oz 6 oz CLINICALWEIGHT 81.08 kg Body Surface Area (BSA) 1.97 m2 Body Mass Index 26.4 kg/m2 HI 11/02/2019 0:47 EDT Height Source Stated Height Entry Format [place] Height/Length, LITHUANIAN (ft) 5 ft Height/Length LITHUANIAN 9 Inch CLINICALHEIGHT 175.26 cm [place] Body Weight 69.73 kg Weight Source, ED Critical estimated dosing weight Weight Entry Format Flo Weight [place] lb 205 lb CLINICALWEIGHT 93.18 kg Body Surface Area (BSA) 2.09 m2 Body Mass Index 30.3 kg/m2 HI General: sleepy but easily awakened for short periods; No acute distress. Eye: Normal conjunctiva, Vision unchanged. HENT: Normocephalic. Neck: Supple. Respiratory: Lungs are clear to auscultation, Respirations are non-labored, Breath sounds are equal, Symmetrical chest wall expansion. Cardiovascular: Normal rate, Regular rhythm, No murmur, No edema. Gastrointestinal: Soft, Non-tender, Non-distended, Normal bowel sounds. Musculoskeletal: Normal range of motion, No tenderness, No swelling. Integumentary: Warm, Moist, No pallor, No rash. Neurologic: Arousable, Oriented, No focal deficits. Psychiatric: Cooperative, Appropriate mood & affect. Review / Management Results review: Labs (Last four charted values) WBC 8.7 (NOV 01) HB 13.5 (NOV 01) HCT 43.0 (NOV 01) Plt 283 (NOV 01) Na 137 (NOV 01) K 4.5 (NOV 01) Cl 106 (NOV 01) CO2 23 (NOV 01) BUN 19 (NOV 01) Cr 1.00 (NOV 01) Glu R 100 (NOV 01) Ca 8.9 (NOV 01) Lactic 1.3 (NOV 01) PT 11.2 (NOV 01) INR 1.1 (NOV 01) AST 16 (NOV 01) ALT 29 (NOV 01) ALK P 109 (NOV 01) T Bili 0.3 (NOV 01) PTN 7.9 (NOV 01) ALB L 2.5 (NOV 01) . Impression and Plan IMPRESSION -- Subacute back pain w/o systemic symptoms of infection but advanced findings on CT scan and significant elevations of inflammatory markers (crp 2.4 and ESR 80) The lucency around the right pedicle screw at T10 suggests hardware infection Blood culture pending Given the paucity of systemic symptoms an indolent pathogen such as CN staph would be most likely but the differential of bacterial pathogens includes staph aureua, gram negative rods, etc. As an immune compromised host he is also at risk for granulomatous pathogens -- Rheumatoid Arthritis on remicade -- Hypertension -- Parkinson's Disease -- Hiatal Hernia PLAN -- Agree with vancomycin; will change zosyn to cefepime for improved penetration epidural tissue -- note plans for surgery 11/04 -- Anticipate prolonged course of parenteral therapy -- probiotic Electronically signed by Taryn [facility] Conversion Chocolate Finisher Operator Cerner at 11/12/2022 9:34 PM CDT documented in this encounter Plan of Treatment Not on file documented as of this encounter Visit Diagnoses Not on filedocumented in this encounter
--- OUTSIDE RECORDS SUMMARY | 2025-01-27 13:07 | XMS_ITS | Encounter Summary ---
Author Organization [employer] ([place], [place], [place], [place]) Address [address] [place] [address] Care Team Providers Care Loss Prevention Manager Name Role Phone Unavailable Primary Care Provider Unavailabl e Encounter Details Date Type Department Care Team (Late st Contact Info) Description 12/23/2018 Transcribed Document [facility] [place] Family Medicine [address] [place] [address] ProviderAgnieszka MD [address] [place], [place] [id number] Social History Tobacco Use Types Packs/Day Years Used Date Smoking Tobacco: Never Assessed Sex and Gender Information Value Date Recorded Sex Assigned at Not on file Legal Sex Male 2:38 PM CDT Gender Identity Not on file Sexual Orientation Not on file documented as of this encounter Miscellaneous Notes * Cerner Conversion Note - Agnieszka ProviderMD - 12/23/2018 1:23 PM CDT Initial Discharge Planning Entered On: 12/23/2018 13:26 EDT Performed On: 12/23/2018 13:23 EDT by MARTÍNEZ VALENZUELA RN-Cad Application Support Specialist Initial Assessment I Previously Documented Living Environment : No qualifying data available. Living Situation : Home Patient Lives With : Spouse Is the Patient a Caregiver at Home? : No Emergency Contact #1 : coleen Emergency Contact #1 Emergency Contact #1 Relationship : spouse Emergency Contact #2 : , Emergency Contact #2 Phone Number : , Emergency Contact #2 Relationship : , MARTÍNEZ VALENZUELA RN-Cad Application Support Specialist - 12/23/2018 13:23 EDT Initial Assessment II Sensory and Motor Deficits : Other: Parkinson's Current Home Treatments and Equipment : None MARTÍNEZ VALENZUELA RN-Cad Application Support Specialist - 12/23/2018 13:23 EDT Discharge Needs I Anticipated Discharge Date : 12/24/2018 EDT Anticipated Discharge To, CM : Acute Care Facility, group home facility Current Home Treatment/Equipment : Current Home Treatment/Equipment No qualifying data available. MARTÍNEZ VALENZUELA RN-Cad Application Support Specialist - 12/23/2018 13:23 EDT Discharge Needs II Professional Skilled Services : Professional Skilled Services No qualifying data available. Needs Assistance with Transportation : Maybe MARTÍNEZ VALENZUELA RN-Cad Application Support Specialist - 12/23/2018 13:23 EDT Narrative Note Narrative Note : 68yo male pt s/p T10-S1 posterior lateral fusion, L2-S1 lami and PLIF with bilateral iliac bolts. PMH: Parkinson's. met withpt and family at bedside to discuss DCP. Pt ambulated 70ft with Ax2 this am with PT. has concerns regarding taking patient home. She requests rehab at [facility]. Referral sent and informed Colleene. CM will follow. MARTÍNEZ VALENZUELA RN-Cad Application Support Specialist - 12/23/2018 13:23 EDT documented in this encounter Plan of Treatment Not on file documented as of this encounter Visit Diagnoses Not on filedocumented in this encounter
--- OUTSIDE RECORDS SUMMARY | 2025-01-27 13:07 | XMS_ITS | Encounter Summary ---
Author Organization [employer] ([place], [place], [place], [place]) Address [address] [place] [address] Care Team Providers Care Systems Analyst Name Role Phone Unavailable Primary Care Provider Unavailabl e Encounter Details Date Type Department Care Team (Late st Contact Info) Description 12/24/2018 Transcribed Document [facility] [place] [address] [place] [address] ProviderAgnieszka MD [address] [place], [place] [id number] Social History Tobacco Use Types Packs/Day Years Used Date Smoking Tobacco: Never Assessed Sex and Gender Information Value Date Recorded Sex Assigned at Not on file Legal Sex Male 2:38 PM CDT Gender Identity Not on file Sexual Orientation Not on file documented as of this encounter Miscellaneous Notes * Cerner Conversion Note - Agnieszka Centeno MD - 12/24/2018 3:57 PM CDT Patient Education Materials Follows: Spinal Fusion, Adult, Care After This sheet gives you information about how to care for yourself after your procedure. Your doctor may also give you more specific instructions. If you have problems or questions, contact your doctor. Follow these instructions at home: Medicines ??? Take bhmy-gwf-exduwwq and prescription medicines only as told by [...] Leave the ice on for 20 minutes, 2?3 times a day. Surgery cut care ??? Follow instructions from your doctor about how to take care of your cut from surgery (incision). Make sure you: ? Wash your hands with soap and water before you change your bandage (dressing). If you cannot use soap and water, use hand noteman. ? Change your bandage as told by [...] your pee (urine) pale yellow. ? Take prro-ivl-icfqufh or prescription medicines. ? Eat foods that [...] 11/07/2011 Document Revised: 10/28/2017 Document Reviewed: 10/28/2017 [employer] Interactive Patient Education ? 2019 [employer]. Infectious Disease Wound Infection A wound infection happens when [...] at home: Medicines ??? Take or apply jftp-qfm-llagqur and prescription medicines only as told by [...] cannot use soap and water, use hand noteman. ? Change your bandage as told by [...] 04/22/2009 Document Revised: 12/19/2016 Document Reviewed: 01/01/2016 [employer] Interactive Patient Education ? 2019 [employer] documented in this encounter Plan of Treatment Not on file documented as of this encounter Visit Diagnoses Not on filedocumented in this encounter
--- OUTSIDE RECORDS SUMMARY | 2025-01-27 13:07 | XMS_ITS | Encounter Summary ---
Author Organization [employer] ([place], [place], [place], [place]) Address [address] [place] [address] Care Team Providers Care Supervisor Ornamental Ironworking Name Role Phone Unavailable Primary Care Provider Unavailabl e Encounter Details Date Type Department Care Team (Late st Contact Info) Description 11/02/2019 Transcribed Document [facility] [place] [address] ProviderAgnieszka MD [address] [place], [place] [id number] Social History Tobacco Use Types Packs/Day Years Used Date Smoking Tobacco: Never Assessed Sex and Gender Information Value Date Recorded Sex Assigned at Not on file Legal Sex Male 2:38 PM CDT Gender Identity Not on file Sexual Orientation Not on file documented as of this encounter Miscellaneous Notes * Cerner Conversion Note - Agnieszka ProviderMD - 11/02/2019 8:42 AM CDT Patient: SIMBA MAYEN JR Age: 69 years Sex: Male : 1950 Associated Diagnoses: None Author: BROOKS GORE, [facility] 69yoM with Low Back Pain - R/O Osteo PMH: 12/13 PLIF T10-S1, Parkinson's Rx Consult: Vancomycin MD: David Hernández Dx: Lumbar / Thoracic Osteo goal trough = 15-20 ID: pending wt = 81kg I/O = 355 / ---- NKDA Atb: Vanco / Zosyn (Start 11/01) Labs (Last four charted values) WBC 8.7 (NOV 01) HB 13.5 (NOV 01) HCT 43.0 (NOV 01) Plt 283 (NOV 01) Na 137 (NOV 01) K 4.5 (NOV 01) Cl 106 (NOV 01) CO2 23 (NOV 01) BUN 19 (NOV 01) Cr 1.00 (NOV 01) Glu R 100 (NOV 01) Ca 8.9 (NOV 01) Lactic 1.3 (NOV 01) Calc CrCl = 69ml/min Vitals Signs (last 24 hrs) Last Charted Minimum Maximum Temp 98.4 (NOV 01 05:00) 98.4 (NOV 01 05:00) 98.6 (NOV 01 00:47) Apical HR 90 (NOV 01 05:00) 64 (NOV 01 04:32) 90 (NOV 01 [...] (NOV 01 02:52) 99 (NOV 01 00:47) Cultures: 11/01 blood - pending 10/31 CT Lumbar / Thoracic - CT Spine... Posterior fusion of T10-S1. Destruction of the T9/T10 intervertebral disc with erosion of the adjacent endplates and surrounding paraspinous soft tissue density. Findings raise concern for discitis and osteomyelitis. The spinal canal is not well visualized at this level due to streak artifact. There is a rim of lucency surrounding the right pedicle screw at T10 which raises concern for hardware infection. There is destruction of the base of the right 10th rib consistent with osteomyelitis. Large hiatal hernia containing majority of the stomach.. Plan: 1) Vancomycin 1500mg IV total dose given as load this AM 2) Initiate Vancomycin 1250mg (~15mg/kg) IV q12h 3) Order Vancomycin trough on 11/02 @ 20:00 -hold if > 22 4) Rx to follow Thank You, Brooks Gore RPh Electronically signed by Taryn, [facility] Conversion Commercial Construction Project Manager Cerjulio at 11/12/2022 9:28 PM CDT documented in this encounter Plan of Treatment Not on file documented as of this encounter Visit Diagnoses Not on filedocumented in this encounter
--- OUTSIDE RECORDS SUMMARY | 2025-01-27 13:07 | XMS_ITS | Encounter Summary ---
Author Organization [employer] ([place], [place], [place], [place]) Address [address] [place] [address] Care Team Providers Care Textile Knitter Name Role Phone Unavailable Primary Care Provider Unavailabl e Encounter Details Date Type Department Care Team (Late st Contact Info) Description 11/08/2019 Transcribed Document [facility] [place] [facility] [place] [address] ProviderAgnieszka MD [address], [place] [id number] Social History Tobacco Use Types Packs/Day Years Used Date Smoking Tobacco: Never Assessed Sex and Gender Information Value Date Recorded Sex Assigned at Not on file Legal Sex Male 2:38 PM CDT Gender Identity Not on file Sexual Orientation Not on file documented as of this encounter Miscellaneous Notes * Cerner Conversion Note - Agnieszka ProviderMD - 11/08/2019 7:35 AM CDT Patient: SIMBA MAYEN JR Age: 69 years Sex: Male : 1950 Associated Diagnoses: None Author: BROOKS GORE, [facility] 69yoM with Low Back Pain - R/O Osteo PMH: 12/13 PLIF T10-S1, Parkinson's, 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 / Remicade 11/04 revision of T9-T10 with extension of laminectomies Rx Consult: Vancomycin MD: David Hernández Dx: Thoracic Osteo goal trough = 15-20 ID: Branden wt = 81kg I/O = 701 / 885 (85 out of surgical drain) NKDA Atb: Vanco / Cefepime (Start 11/01) Labs (Last four charted values) WBC 5.1 (NOV 07) 7.2 (APR 12) 7.2 (APR 11) 7.5 (OCT 10) HB L 9.1 (OCT 13) L 9.4 (OCT 12) L 11.7 (OCT 11) 14.7 (OCT 10) HCT L 29.2 (OCT 13) L 28.9 (OCT 12) L 36.4 (OCT 11) 49.8 (OCT 10) Plt 168 (OCT 13) 184 (OCT 12) 230 (OCT 11) 240 (OCT 10) Na 137 (OCT 13) L 135 (OCT 12) L 133 (OCT 11) 136 (OCT 10) K 4.2 (OCT 13) 4.1 (OCT 12) 4.2 (OCT 11) 4.0 (OCT 10) Cl 105 (OCT 13) 104 (OCT 12) 103 (OCT 11) 104 (OCT 10) CO2 26 (NOV 07) 27 (OCT 12) 27 (OCT 11) 26 (OCT 10) BUN 10 (NOV 07) 11 (OCT 12) 9 (OCT 11) 12 (OCT 10) Cr 0.70 (NOV 07) L 0.60 (OCT 12) 0.70 (OCT 11) 0.80 (OCT 10) Glu R 88 (NOV 07) 98 (OCT 12) 98 (OCT 11) 95 (OCT 10) Ca L 8.0 (NOV 07) L 7.8 (OCT 12) L 8.3 (OCT 11) 8.4 (OCT 10) Lactic C 2.4 (NOV 07) 1.3 (NOV 01) Calc CrCl = 68ml/min Vitals Signs (last 24 hrs) Last Charted Minimum Maximum Temp 98.8 (NOV 07 05:57) 97.9 (NOV 07 04:15) 99 (NOV 06 18:15) Mon HR 93 (NOV 07 05:57) 89 (NOV 06 16:55) 96 (NOV 06 11:14) Resp Rate 16 (NOV 07 05:57) 16 (NOV 06 11:14) 17 (NOV 06 16:55) SBP 136 (NOV 07 05:57) 123 (NOV 06 11:14) H 149 (NOV 06 18:15) DBP 83 (NOV 07 05:57) 73 (NOV 06 23:25) 86 (NOV 07 04:15) MAP 100 (NOV 07 04:15) 86 (NOV 06 23:25) 101 (NOV 06 18:15) SpO2 97 (NOV 07 04:15) 96 (NOV 06 11:14) 97 (NOV 06 16:55) Cultures: 11/01 blood - anaerobic - Gram Positive Rods 07/31 btl 11/01 urine - NGTD 11/04 Wound/fungus/AFB/anaerobic - NGTD Levels: 11/02 vanc trough - 17.4 (2019 ~ 2h early. Continue vanc 1.25gm IV q12h) 11/07 vanc trough=18.5 @ 0753 - On time but last PM dose given 1.5 hrs late -extrapolated trough ~ 16 just before dose 10/31 CT Lumbar / Thoracic - CT [...] Large hiatal hernia containing majority of the stomach. Plan: 1) Continue Vancomycin 1250mg (~15mg/kg) IV q12h -repeat trough is WNL - repeat in 3-4 days -hold if > 22 2) Monitor for changes in renal function and culture results. 3) Rx to follow -Surgical repair 11/04 with intraop cultures - NGTD Thank You, Brooks Gore RPh documented in this encounter Plan of Treatment Not on file documented as of this encounter Visit Diagnoses Not on filedocumented in this encounter
--- OUTSIDE RECORDS SUMMARY | 2025-01-27 13:07 | XMS_ITS | Encounter Summary ---
Author Organization [employer] ([place], [place], [place], [place]) Address [address] [place] [address] Care Team Providers Care In Service Coordinator Name Role Phone Unavailable Primary Care Provider Unavailabl e Encounter Details Date Type Department Care Team (Late st Contact Info) Description 12/25/2018 Transcribed Document [facility] [place] [facility] [place] [address] ProviderAgnieszka MD [address] [place], [place] [id number] Social History Tobacco Use Types Packs/Day Years Used Date Smoking Tobacco: Never Assessed Sex and Gender Information Value Date Recorded Sex Assigned at Not on file Legal Sex Male 2:38 PM CDT Gender Identity Not on file Sexual Orientation Not on file documented as of this encounter Miscellaneous Notes * Cerner Conversion Note - Historical ProviderMD - 12/25/2018 7:42 AM CDT Discharge Summary, PT Entered On: 12/25/2018 7:43 EDT Performed On: 12/25/2018 7:42 EDT by OSMANI RAINEY PTA Discharge Summary Discharge Summary Provider Notified : Physical Therapy Reason for Discharge : Discharged from hospital Discharged to, Therapy : Unit, rehabilitation OSMANI RAINEY PTA - 12/25/2018 7:42 EDT Discharge Summary Comment, PT : Patient was min assist x2 for alll transfers ambulates 400ft with RWx min assist Patient has not met 1 STG and 2 LTGs and would benefit from continued PT. PT has reviewed and agrees with note. JACQUI MCGUIRE, PT - 12/25/2018 11:46 EDT Short Term Goals Mobility/Bed Mobility STG PT Grid Goal #1 Activity : Supine to sit Assist : Supervision or set-up Date to Meet : 12/30/2018 EDT Goal Status : Not met OSMANI RAINEY PTA - 12/25/2018 7:42 EDT [facility] Goals Mobility/Bed Mobility LTG PT Grid Goal #1 Activity : Sit to stand Cues : Minimum verbal cues Assist : Supervision or set-up Date to Meet : 01/06/2019 EDT Goal Status : Not met OSMANI RAINEY PTA - 12/25/2018 7:42 EDT Ambulation LTG Grid Goal #1 Device : Walker, front wheel Distance : 200' Cues : Minimum verbal cues Assist : Supervision or set-up Date to Meet : 01/06/2019 EDT Goal Status : Not met OSMANI RAINEY PTA - 12/25/2018 7:42 EDT documented in this encounter Plan of Treatment Not on file documented as of this encounter Visit Diagnoses Not on filedocumented in this encounter
--- OUTSIDE RECORDS SUMMARY | 2025-01-27 13:07 | XMS_ITS | Encounter Summary ---
Author Organization [employer] ([place], [place], [place], [place]) Address [address] [place] [address] Care Team Providers Care Aerial Erector Name Role Phone Unavailable Primary Care Provider Unavailabl e Encounter Details Date Type Department Care Team (Late st Contact Info) Description 11/08/2019 Transcribed Document [facility] [place] Family [place] [address] [place] [address] ProviderAgnieszka MD [address] [place], [place] [address] Social History Tobacco Use Types Packs/Day Years Used Date Smoking Tobacco: Never Assessed Sex and Gender Information Value Date Recorded Sex Assigned at Not on file Legal Sex Male 2:38 PM CDT Gender Identity Not on file Sexual Orientation Not on file documented as of this encounter Miscellaneous Notes * Cerner Conversion Note - Historical ProviderMD - 11/08/2019 5:05 PM CDT Spiritual Care Short Form Entered On: 11/08/2019 17:05 EDT Performed On: 11/08/2019 17:05 EDT by JEROME CONNELLY Chaplain General Information, Spiritual Care Spiritual Care Referred by : Nurse Reason for Visit : Initial Ministry Provided to : Patient, Family/Significant other Intervention/Comment/Summary Points : provided a meal voucher for patient's , who is staying in room tonight with him. Worship Preference : [employer] JEROME CONNELLY Chaplain - 11/08/2019 17:05 EDT documented in this encounter Plan of Treatment Not on file documented as of this encounter Visit Diagnoses Not on filedocumented in this encounter
--- OUTSIDE RECORDS SUMMARY | 2025-01-27 13:07 | XMS_ITS | Encounter Summary ---
Author Organization [employer] ([place], [place], [place], [place]) Address [address] [place] [address] Care Team Providers Care Family Medicine Physician Assistant Name Role Phone Unavailable Primary Care Provider Unavailabl e Encounter Details Date Type Department Care Team (Late st Contact Info) Description 11/07/2019 Transcribed Document [facility] [place] [address] [place] [address] ProviderAgnieszka MD [address] [place], [place] [id number] Social History Tobacco Use Types Packs/Day Years Used Date Smoking Tobacco: Never Assessed Sex and Gender Information Value Date Recorded Sex Assigned at Not on file Legal Sex Male 2:38 PM CDT Gender Identity Not on file Sexual Orientation Not on file documented as of this encounter Miscellaneous Notes * Cerner Conversion Note - Historical ProviderMD - 11/07/2019 12:42 PM CDT Patient: SIMBA MAYEN JR Age: 69 Years Sex: Male : 1950 No issues overnight or this AM. Laying in bed. awake, drowsy, oriented perrl face symmetric no movement BLE some sensation to light touch and pressure, left greater than right rukhsana 175 cc pod#2 thoracic fusion extension, pod#1 multilevel thoracic laminectomy for abscess per operative report. Neurological examination stable compared to post operative exam by Dr. Akers. Continue supportive care for now. Ok for dvt ppx, heparin sq. keep rukhsana for now. Electronically signed by Taryn [facility] Conversion Yard Specialist Cerner at 11/12/2022 9:55 PM CDT documented in this encounter Plan of Treatment Not on file documented as of this encounter Visit Diagnoses Not on filedocumented in this encounter
--- OUTSIDE RECORDS SUMMARY | 2025-01-27 13:07 | XMS_ITS | Encounter Summary ---
Author Organization [employer] ([place], [place], [place], [place]) Address [address] [place] [address] Care Team Providers Care Reports Analyst Name Role Phone Unavailable Primary Care Provider Unavailabl e Encounter Details Date Type Department Care Team (Late st Contact Info) Description 12/24/2018 Transcribed Document [facility] [place] [facility] [place] [address] ProviderAgnieszka MD [address], [place] [phone] Social History Tobacco Use Types Packs/Day Years Used Date Smoking Tobacco: Never Assessed Sex and Gender Information Value Date Recorded Sex Assigned at Not on file Legal Sex Male 2:38 PM CDT Gender Identity Not on file Sexual Orientation Not on file documented as of this encounter Miscellaneous Notes * Cerner Conversion Note - Agnieszka ProviderMD - 12/24/2018 3:23 PM CDT Final Discharge Planning Entered On: 12/24/2018 15:32 EDT Performed On: 12/24/2018 15:23 EDT by MARTÍNEZ VALENZUELA RN-Hoop Coiler Final Discharge Planning Discharge Arrangements : Patient Post-Acute Information Patient Name: SIMBA MAYEN JR Gender: Male : [birth year] Age: 68 Years No Post-Acute Placement(s) Listed No Post-Acute Service(s) Listed No Cur[place] Referral(s) Listed Important Medicare Message Reviewed With : Spouse Important Medicare Message Reviewed D/T : 12/24/2018 10:00 EDT Transportation Needs : Car Follow Up Appointment Scheduled : Yes Is Patient High/Moderate Readmission Risk? : No Patient/Family Notified of Plan : Yes Support Person/Pt Rep Notified of Plan : Yes Is Patient Ready for Discharge? : Yes Physician Notified Patient is Ready for Discharge? : Yes Discharge To Care Management : [facility] -[facility]patient Rehabilitation Facility[facility] MARTÍNEZ VALENZUELA RN-Hoop Coiler - 12/24/2018 15:23 EDT Final Narrative Note Final Narrative Note : Pt has bed on [facility] at [facility] . Family will transport. D/W Kavya, Leroy, spouse, pt, and bedside RN Malka. MARTÍNEZ VALENZUELA RN-Hoop Coiler - 12/24/2018 15:23 EDT documented in this encounter Plan of Treatment Not on file documented as of this encounter Visit Diagnoses Not on filedocumented in this encounter
--- OUTSIDE RECORDS SUMMARY | 2025-01-27 13:07 | XMS_ITS | Encounter Summary ---
Author Organization [employer] ([place], [place], [place], [place]) Address [address] [place] [address] Care Team Providers Care Application Engineer Name Role Phone Unavailable Primary Care Provider Unavailabl e Encounter Details Date Type Department Care Team (Late st Contact Info) Description 12/24/2018 Transcribed Document [facility] Neurology - [address] [facility] [address] [place] [address] Mark Akers MD [address] [place] [address] Social History Tobacco Use Types Packs/Day Years Used Date Smoking Tobacco: Never Assessed Sex and Gender Information Value Date Recorded Sex Assigned at Not on file Legal Sex Male 2:38 PM CDT Gender Identity Not on file Sexual Orientation Not on file documented as of this encounter Miscellaneous Notes * Cerner Conversion Note - Mark Akers MD - 12/24/2018 9:00 AM EDT Patient: SIMBA MAYEN JR Age: 68 Years Sex: Male : 1950 naeo. incisional back pain well controlled. no radic leg sxs. tolerating po. +voiding. walked 200' afvss lying in bed, nad slightly drowsy, but easily arousable a/a/o ms baseline maew c/d/i rukhsana holding sxn, ss, 30cc recorded in 24hr. scant in bulb when i rounded. cr: 0.8 hgb: 10.5 plts: 121 1. pod 2 [id number] fusion doing well. good response to surgery. rukhsana output low. -dc rukhsana -cont present care -rehab when bed avail 2. thrombocytopenia mild. likely dilutional. will monitor documented in this encounter Plan of Treatment Not on file documented as of this encounter Visit Diagnoses Not on filedocumented in this encounter
--- OUTSIDE RECORDS SUMMARY | 2025-01-27 13:07 | XMS_ITS | Encounter Summary ---
Author Organization [employer] ([place], [place], [place], [place]) Address [address] [place] [address] Care Team Providers Care Automotive Service Director Name Role Phone Unavailable Primary Care Provider Unavailabl e Encounter Details Date Type Department Care Team (Late st Contact Info) Description 11/02/2019 Transcribed Document [facility] [place] [address] [place] [address] ProviderAgnieszka MD [address] [place] [address] Social History Tobacco Use Types Packs/Day Years Used Date Smoking Tobacco: Never Assessed Sex and Gender Information Value Date Recorded Sex Assigned at Not on file Legal Sex Male 2:38 PM CDT Gender Identity Not on file Sexual Orientation Not on file documented as of this encounter Miscellaneous Notes * Cerner Conversion Note - Historical ProviderMD - 11/02/2019 7:20 AM CDT Consult Phone Call Documentation Entered On: 11/02/2019 9:04 EDT Performed On: 11/02/2019 7:20 EDT by Sue Beck [facility] Coord Phone Call for Consults Consult Phone Call/Page Attempt : First call Consult Reason : back osteomylitis Physician Requesting Consult : DONY NOONAN PA-C Physician Requested for Consult : NIC CEVALLOS MD-INF Provider Service Notified Name : Infectious Disease Date and Time Call Returned : 11/02/2019 9:00 EDT Sue Beck [facility] Coord - 11/02/2019 9:04 EDT documented in this encounter Plan of Treatment Not on file documented as of this encounter Visit Diagnoses Not on filedocumented in this encounter
--- OUTSIDE RECORDS SUMMARY | 2025-01-27 13:07 | XMS_ITS | Encounter Summary ---
Author Organization [employer] ([place], [place], [place], [place]) Address [address] [place] [address] Care Team Providers Care Electric Meter Tester Name Role Phone Unavailable Primary Care Provider Unavailabl e Encounter Details Date Type Department Care Team (Late st Contact Info) Description 11/08/2019 Transcribed Document [facility] [place] [address] ProviderAgnieszka MD [address], [place] [address] Social History Tobacco Use Types Packs/Day Years Used Date Smoking Tobacco: Never Assessed Sex and Gender Information Value Date Recorded Sex Assigned at Not on file Legal Sex Male 2:38 PM CDT Gender Identity Not on file Sexual Orientation Not on file documented as of this encounter Miscellaneous Notes * Cerner Conversion Note - Agnieszka ProviderMD - 11/08/2019 2:29 PM CDT Patient: SIMBA MAYEN JR Age: 69 years Sex: Male : 1950 Associated Diagnoses: None Author: ALYSSA BOWENS MD-INF Basic Information cc: acute osteomyelitis [...] surrounding the right pedicle screw at T10. 11/03/19 alert, very concerned that he might be asked to undergo MRI again; comfortable in bed but could not tolerate lying on the hard table 11/03 alert, afebrile, able to walk in the rainey with assistance from PT 11/04: Patient is off the floor in surgery but has been afebrile overnight. No events to report overnight. Staff states tolerating medications well with no adverse drug reactions. Microbiology reports. 11/06/19: patient off the floor for emergency surgery, scan showed compression of t-12 of spine and pt reportedly could not feel legs. he has been afebrile overnight with no no new microbiology reports. 11/07/19: Patient sitting up in bed awake and alert upon arrival. He is status post T8???T11 laminectomy for decompression an epidural abscess. Procedure was performed with no documented complications. Culture specimens were sent. Per OR report there was no copious/obvious purulence there was however some blood-tinged serous fluid. Temperature of 99.0 overnight. He has been tachycardic up to 107. He remains without leukocytosis. No new positive microbiology reports noted. He has complaints of numbness in bilateral feet stating that he can't feel when I touch his feet and he also states he is unable to move his feet or even wiggle his toes. 11/08/19: Patient sitting in bed, awake and alert. Tmax 99, Surgical cultures remain negative. Asked micro to hold anaerobic cultures for 2 weeks to r/o P. acnes. He has tingling in his feet and can wiggle his toes a bit today. PAST MEDICAL HISTORY Rheumatoid Arthritis on Remicade Colitis DJD (degenerative joint disease) of thoracic spine History of obstructive sleep apnea Parkinson disease Scoliosis PSH: Thoracolumbar fusion, multilevel laminectomy and thoracic through iliac posterior instrumentation 11/2018 Right inguinal surgery 15 yrs ago Left inguinal hernia 4 yrs ago. Bilateral/ cataract surgery 2017. Colonoscopy Social history Patient denies any smoking or alcohol use Family History not relevant Review of Systems As above in history of present illness Health Status Allergies: Allergic Reactions (All) No Known Allergies No Known Medication Allergies Current medications: (Selected) Inpatient Medications Ordered Azilect: 1 mg, Oral, Daily Dilaudid: 0.25 mg, IV Push, Q1H, PRN: Pain (Moderate 4-6) Dilaudid: 0.5 mg, IV Push, Q1H, PRN: Pain (Moderate 4-6) Dulcolax Laxative: 10 mg, Oral, BID, PRN: Constipation DuoNeb 0.5 mg-2.5 mg/3 mL inhalation solution: 3 mL, Nebulized Inhalation, RT_Q6H, PRN: Shortness of Breath Fleet Enema: 133 mL, Rectal, Daily, PRN: Constipation Lactated Ringers Injection intravenous solution 1,000 mL: 100 mL/Hr, IntraVENous MiraLax: 17 Gram, Oral, Daily MiraLax: 17 Gram, Oral, Daily, PRN: Constipation Norvasc: 10 mg, Oral, Daily Tylenol: 650 mg, Oral, Q4H Valium: 5 mg, IV Push, Q6H, PRN: Spasms Zofran: 4 mg, IV Push, Q4H, PRN: Nausea alteplase + sterile water 1 mL: 1 mg, 60 mL/Hr, IntraCATHeter, 1-Time, PRN: Other (See Comment) bisacodyl: 10 mg, Rectal, BID, PRN: Constipation carbidopa-levodopa 25 mg-100 mg oral tablet: 1 Tab, Oral, QID cefepime + Sodium Chloride 0.9% intravenous solution 100 mL: 2 Gram, 200 mL/Hr, IV Piggyback, [id number] docusate sodium: 200 mg, Oral, BID heparin: 5,000 Units, SubCutaneous, Q8H hydrALAZINE: 10 mg, IV Push, Q6H, PRN: Hypertension lactobacillus acidophilus: 1 Cap, Oral, Daily morphine: 2 mg, IV Push, Q2H, PRN: Pain (Severe 7-10) oxyCODONE: 10 mg, Oral, Q4H, PRN: Pain (Moderate 4-6) oxyCODONE: 5 mg, Oral, Q4H, PRN: Pain (Mild 1-3) senna: 8.6 mg, Oral, BID sodium chloride 0.9% injectable solution: 10 mL, IV Push, Q8H vancomycin + Sodium Chloride 0.9% intravenous solution 250 mL: 1,250 mg, 250 mL/Hr, IV Piggyback, [id number] Pending Complete fentaNYL: 25 mcg, IV Push, Q10Min Documented Medications Documented Azilect 1 mg oral tablet: 1 Tab, Oral, Daily, 30 Tab, 0 Refill(s) Remicade: 10 mg/kg, IntraVENous, [id number], for Ulcerative Colitis; Last dose: 09/29/2019, 0 Refill(s) carbidopa-levodopa 25 mg-100 mg oral tablet: 1 Tab, Oral, QID, 120 Tab, 0 Refill(s) Problem list: Active Problems (6) Arthritis Colitis DJD (degenerative joint disease) of thoracic spine History of obstructive sleep apnea Parkinson disease Scoliosis Physical Examination VS/Measurements Vitals Signs (last 24 hrs) Last Charted Minimum Maximum Temp 97.6 (NOV 07 11:00) 97.6 (NOV 07 11:00) 99 (NOV 06 18:15) Mon HR 101 (NOV 07 11:00) 89 (NOV 06 16:55) 101 (NOV 07 11:00) Resp Rate 16 (NOV 07 05:57) 16 (NOV 06 18:15) 17 (NOV 06 16:55) SBP 122 (NOV 07 11:00) 122 (NOV 07 11:00) H 149 (NOV 06 18:15) DBP 74 (NOV 07 11:00) 73 (NOV 06 23:25) 86 (NOV 07 04:15) MAP 86 (NOV 07 11:00) 86 (NOV 06 23:25) 101 (NOV 06 18:15) SpO2 97 (NOV 07 11:00) 96 (NOV 06 23:25) 97 (NOV 06 16:55) General: alert; No acute distress. HENT: Normocephalic. sclerae NI Respiratory: Lungs are clear to auscultation , Respirations are non-labored, . Cardiovascular: Normal rate, Regular rhythm, Gastrointestinal: Soft, Non-tender, Non-distended, Normal bowel sounds. Musculoskeletal: Wiggled his toes. Integumentary: Warm, Moist, No pallor, No rash. Back wound with gilson Neurologic: Alert and oriented Psychiatric: Cooperative, Appropriate mood & affect. Review / Management Results review: Labs (Last four charted values) WBC 5.1 (NOV 07) 7.2 (NOV 06) 7.2 (NOV 05) 7.5 (NOV 04) HB L 9.1 (NOV 07) L 9.4 (NOV 06) L 11.7 (OCT 11) 14.7 (OCT 10) HCT L 29.2 (NOV 07) L 28.9 (NOV 06) L 36.4 (NOV 05) 49.8 (OCT 10) Plt 168 (NOV 07) 184 (OCT 12) 230 (NOV 05) 240 (OCT 10) Na 137 (NOV 07) L 135 (OCT 12) L 133 (OCT 11) 136 (OCT 10) K 4.2 (NOV 07) 4.1 (OCT 12) 4.2 (OCT 11) 4.0 (OCT 10) Cl 105 (OCT 13) 104 (OCT 12) 103 (OCT 11) 104 (OCT 10) CO2 26 (OCT 13) 27 (OCT 12) 27 (OCT 11) 26 (OCT 10) BUN 10 (NOV 07) 11 (OCT 12) 9 (OCT 11) 12 (OCT 10) Cr 0.70 (OCT 13) L 0.60 (OCT 12) 0.70 (OCT 11) 0.80 (OCT 10) Glu R 88 (NOV 07) 98 (OCT 12) 98 (OCT 11) 95 (OCT 10) Ca L 8.0 (OCT 13) L 7.8 (OCT 12) L 8.3 (OCT 11) 8.4 (OCT 10) Lactic 0.8 (NOV 07) C 2.4 (NOV 07) 1.3 (NOV 01) PT 11.3 (OCT 10) 11.2 (NOV 01) INR 1.1 (OCT 10) 1.1 (NOV 01) PTT H 36.2 (OCT 09) AST 15 (OCT 12) 19 (OCT 11) 16 (NOV 01) ALT L 6 (NOV 06) L 8 (NOV 05) 29 (NOV 01) ALK P 89 (NOV 06) 100 (NOV 05) 109 (NOV 01) T Bili 0.6 (NOV 06) 0.5 (NOV 05) 0.3 (NOV 01) PTN L 5.8 (NOV 06) 6.8 (NOV 05) 7.9 (NOV 01) ALB L 1.7 (NOV 06) L 2.0 (NOV 05) L 2.5 (NOV 01) . Impression and [...] also at risk for granulomatous pathogens -- Reconstructive surgery 11/04 with continuation of prior spinal instrumentation to T6-T9 after T9-T10 fracture -- Reoperation 11/05 with drainage of epidural abscess and T8-T11 laminectomy ?Bilateral lower extremity numbness and weakness - to have MRI to r/o hematoma -- Rheumatoid Arthritis on remicade -- Hypertension -- Parkinson's Disease -- Hiatal Hernia PLAN -continue vancomycin and cefepime for improved penetration epidural tissue -- Anticipate prolonged course of parenteral therapy -- probiotic ?Continue to follow cultures and sensitivity reports an just antibiotics accordingly ?Follow daily labs while in hospital and trend results d/w Dr. Akers, plan is to get to [facility] soon. Alyssa Bowens MD saw and examined patient, verified findings, reviewed labs and radiographic data, formulated diagnosis, plan for treatment, and all medical decision making. Stef Villalobos PA-C for Dr. Robson Bowens. documented in this encounter Plan of Treatment Not on file documented as of this encounter Visit Diagnoses Not on filedocumented in this encounter
--- OUTSIDE RECORDS SUMMARY | 2025-01-27 13:08 | XMS_ITS | Encounter Summary ---
Author Organization [employer] ([place], [place], [place], [place]) Address [address] [place] [address] Care Team Providers Care Aluminum Boat Assembly Supervisor Name Role Phone Unavailable Primary Care Provider Unavailabl e Encounter Details Date Type Department Care Team (Late st Contact Info) Description 11/08/2019 Transcribed Document [facility] [place] Family Medicine [facility] [place] [address] ProviderAgnieszka MD [address], [place] [id number] Social History Tobacco Use Types Packs/Day Years Used Date Smoking Tobacco: Never Assessed Sex and Gender Information Value Date Recorded Sex Assigned at Not on file Legal Sex Male 2:38 PM CDT Gender Identity Not on file Sexual Orientation Not on file documented as of this encounter Miscellaneous Notes * Cerner Conversion Note - Agnieszka ProviderMD - 11/08/2019 1:58 PM CDT On Going Discharge Planning Entered On: 11/08/2019 14:04 EDT Performed On: 11/08/2019 13:58 EDT by SAL BERRIOS RN-Care Management Care Management Progress Note Discharge Arrangements : Patient Post-Acute Information Patient Name: SIMBA MAYEN JR Gender: Male : [birth year] Age: 69 Years No Post-Acute Placement(s) Listed No Post-Acute Service(s) Listed No Cur[place] Referral(s) Listed Discharge Options Discussed with Patient : Acute rehabilitation, Discharge transportation, DME, Home Health, Short term rehabilitation Barriers to Discharge Identified : Clinical Condition of Patient Barriers to Discharge Unresolved : Clinical Condition of Patient Patient Offered Choice/Affiliations Explained : No SAL BERRIOS RN-Care Management - 11/08/2019 13:58 EDT Narrative Progress Note Narrative Progress Note : Neuro surgery note for today pending. Initial plans before first surgery were to transition to [facility]. Second surgery was performed, and spoke with pt/spouse and both still agree to safe plan of discharge being [facility] for rehab when medically cleared for discharge. Spoke to [facility] today, and is going to speak w/pt about facility. CM to cont following Historical Progress Note : Pt off floor since this am for thoracic extension with arrow procedure. CM to cont following, and safe plans of discharge is [facility] when medically cleared to be released. [facility] following SAL BERRIOS RN-Care Management - 11/05/19 12:51:13 Elvia stated that [facility] is following for patient placement. Patient is scheduled for surgery Friday11/05/19. Cm will continue to follow. ELKE VELÁZQUEZ, Wire Bender-Metal Leaf Layer - 11/04/19 13:06:08 Patient is scheduled for an MRI on and surgery on Friday. He reported wanting to go to [facility]. Cm sent referral packet to [facility]. ELKE VELÁZQUEZ Wire Bender-Metal Leaf Layer - 11/03/19 14:33:22 SAL BERRIOS RN-Care Management - 11/08/2019 13:58 EDT documented in this encounter Plan of Treatment Not on file documented as of this encounter Visit Diagnoses Not on filedocumented in this encounter
--- OUTSIDE RECORDS SUMMARY | 2025-01-27 13:08 | XMS_ITS | Encounter Summary ---
Author Organization [employer] ([place], [place], [place], [place]) Address [address] [place] [address] Care Team Providers Care Enrollment Processor Name Role Phone Unavailable Primary Care Provider Unavailabl e Encounter Details Date Type Department Care Team (Late st Contact Info) Description 11/10/2019 Transcribed Document [facility] [place] Family Medicine [address] [place] [address] ProviderAgnieszka MD [address], [place] [id number] Social History Tobacco Use Types Packs/Day Years Used Date Smoking Tobacco: Never Assessed Sex and Gender Information Value Date Recorded Sex Assigned at Not on file Legal Sex Male 2:38 PM CDT Gender Identity Not on file Sexual Orientation Not on file documented as of this encounter Miscellaneous Notes * Cerner Conversion Note - Historical ProviderMD - 11/10/2019 5:00 AM CDT Chart Check - Review Order Profile Entered On: 11/10/2019 4:25 EDT Performed On: 11/10/2019 5:00 EDT by Ciara Mccoy RN Chart Check Powerplans Initiated/Discontinued as Appropriate : Yes All Active Orders Reviewed : Yes Ciara Mccoy RN - 11/10/2019 4:25 EDT Electronically signed by Gay Centeno Conversion Victims Advocate Clerk/Specialist Cerner at 11/12/2022 9:53 PM CDT documented in this encounter Plan of Treatment Not on file documented as of this encounter Visit Diagnoses Not on filedocumented in this encounter
--- OUTSIDE RECORDS SUMMARY | 2025-01-27 13:08 | XMS_ITS | Encounter Summary ---
Author Organization [employer] ([place], [place], [place], [place]) Address [address] [place] [address] Care Team Providers Care Curer Acid Drum Name Role Phone Unavailable Primary Care Provider Unavailabl e Encounter Details Date Type Department Care Team (Late st Contact Info) Description 11/09/2019 Transcribed Document [facility] [place] Family Medicine [facility] [place] [address] ProviderAgnieszka MD [address], [place] [id number] Social History Tobacco Use Types Packs/Day Years Used Date Smoking Tobacco: Never Assessed Sex and Gender Information Value Date Recorded Sex Assigned at Not on file Legal Sex Male 2:38 PM CDT Gender Identity Not on file Sexual Orientation Not on file documented as of this encounter Miscellaneous Notes * Cerner Conversion Note - Historical ProviderMD - 11/09/2019 10:59 AM CDT Treatment Intervention, OT Entered On: 11/10/2019 15:34 EDT Performed On: 11/10/2019 11:00 EDT by MALIHA COLIN, OTR/L General Information, OT Visit Type, OT : Treatment Note Patient Orders : Order Date Order Ordering 11/02/2019 03:01 OT Evaluation and Treatment Ordered By: LORENA SAGASTUME MD-INT 11/03/2019 11:29 Occupational Therapy Additional Tx Ordered By: 11/05/2019 11:20 Occupational Therapy Evaluation and Treatme Ordered By: HEIDE KAT MD-SNU 11/08/2019 15:54 OT Evaluation and Treatment Ordered By: MYRTLE HOUSTON PA 11/09/2019 10:59 OT Additional Treatment Ordered By: Active Diagnoses : 11/02/2019 12:00 Back pain 11/02/2019 12:00 Dorsalgia, unspecified 11/02/2019 12:00 Osteomyelitis, unspecified Therapy Diagnosis, OT : Decline in ADLs/functional mobility due to back pain. Possible sx intervention, unknown date. Admission Date : 11/02/2019 02:59 Co-treated by, OT : Physical Therapist Personal Devices : Personal Devices Glasses Assistive Devices : Assistive Devices No Devices Recorded Precautions in Place : Fall prevention measures, Log roll precautions MALIHA COLIN OTR/Lc - 11/10/2019 15:28 EDT General Status Patient Received Status : Supine in bed Treatment Start Time : 11/10/2019 10:34 EDT Patient Left Status : Supine in bed, RN/PCT informed, Family/Visitors at bedside, All needs met and within reach RN/PCT Informed Comment : MY richardsoned treatment. Treatment End Time : 11/10/2019 11:00 EDT Treatment Time : 26 Minute(s) MALIHA COLIN OTR/Lc - 11/10/2019 15:28 EDT Functional Mobility Mobility Grid Bed Roll Left : Rehab Maximal assistance Bed Roll Right : Rehab Maximal assistance Bed Scooting : Rehab Maximal assistance Supine to Sit : Rehab Maximal assistance Sit to Supine : Rehab Maximal assistance MALIHA COLIN OTR/Lc - 11/10/2019 15:28 EDT Plan of Care, OT OT Tx Plan/Goals Established w Patient : Yes MALIHA COLIN OTR/Lc - 11/10/2019 15:28 EDT Primary Substance Abuse Counselor Goals, OT Grooming LTG Grid Goal #1 Goal #2 Activity : Grooming Grooming Assist : Independent, modified Supervision or set up Date to Meet : 11/17/2019 EDT 11/23/2019 EDT Goal Status : Discontinue Revised MALIHA COLIN OTR/Lc - 11/10/2019 15:28 EDT MALIHA COLIN OTR/Lc - 11/10/2019 15:28 EDT Bathing LTG Grid Goal #1 Activity : Bathing Assist : Assist, minimal Date to Meet : 11/23/2019 EDT Goal Status : MALIHA Aden OTR/Lc Adhikari 11/10/2019 15:28 EDT Dressing, Lower Body LTG Grid Goal #1 Activity : Dressing, Lower Body Assist : Assist, minimal Date to Meet : 11/23/2019 EDT Goal Status : Revised MALIHA COLIN OTR/Lc - 11/10/2019 15:28 EDT Toilet Transfer LTG Grid Goal #1 Activity : Toilet Transfer, Stand Pivot Sit Assist : Supervision or set up Date to Meet : 11/17/2019 EDT Goal Status : Discontinue MALIHA COLIN OTR/L - 11/10/2019 15:28 EDT Bed Mobility/ Bed Transfer LTG Grid Goal #1 Activity : Bed Mobility/Bed Transfer Assist : Assist, minimal Date to Meet : 11/23/2019 EDT Goal Status : Progressing, continue MALIHA COLIN OTR/L - 11/10/2019 15:28 EDT Other LTG Grid Goal #1 Goal : Pt will sit EOB x 5' with SBA for balance during functional activity Date to Meet : 11/23/2019 EDT Goal Status : Initial goal MALIHA COLIN OTR/L - 11/10/2019 15:28 EDT Treatment Note Subjective Comment : Pt agreeable. Patient's Response to Treatment : Pt tolerated fair. Additional Objective Information : Pt supine in bed and transfered to EOB with total A. Pt sitting EOB with close supervision with BUE support on railings. When unsupported, pt required max A due to poor truck control. Pt participated in TA tasks for sensation, vision, coordination, balance, and strength. Pt fatigued and transfered back to supine in bed. Assessment : Pt will benefit from continued skilled OT services. Pt very motivated. Pt BLE flaccid throughout session. Pt BUE 4/5. Plan for Treatment : See LTG MALIHA COLIN OTR/L - 11/10/2019 15:28 EDT Pain Assessment Pain Scaled Used : 0-10 Pain scale Pain Score Pre-Intervention : 0 MALIHA COLIN OTR/L - 11/10/2019 15:28 EDT Image 1 - Images currently included in the form version of this document have not been included in the text rendition version of the form. [facility] OT Charges OT Selfcare/Hm Mgmt Ea 15 Min : 1 OT Ther Activities Ea 15 Min : 1 MALIHA COLIN OTR/L - 11/10/2019 15:28 EDT documented in this encounter Plan of Treatment Not on file documented as of this encounter Visit Diagnoses Not on filedocumented in this encounter
--- OUTSIDE RECORDS SUMMARY | 2025-01-27 13:08 | XMS_ITS | Encounter Summary ---
Author Organization [employer] ([place], [place], [place], [place]) Address [address] [place] [address] Care Team Providers Care Frame Catcher Name Role Phone Unavailable Primary Care Provider Unavailabl e Encounter Details Date Type Department Care Team (Late st Contact Info) Description 11/09/2019 Transcribed Document [facility] [place] Family Medicine [facility] [place] [address] ProviderAgnieszka MD [address] [place], [place] [id number] Social History Tobacco Use Types Packs/Day Years Used Date Smoking Tobacco: Never Assessed Sex and Gender Information Value Date Recorded Sex Assigned at Not on file Legal Sex Male 2:38 PM CDT Gender Identity Not on file Sexual Orientation Not on file documented as of this encounter Miscellaneous Notes * Cerner Conversion Note - Historical ProviderMD - 11/09/2019 10:00 PM CDT Pain Assessment Entered On: 11/09/2019 23:27 EDT Performed On: 11/09/2019 21:27 EDT by Ciara Mccoy RN Intervention Information: acetaminophen Performed by Ciara Mccoy RN on 11/09/2019 20:27:00 EDT acetaminophen,650mg Oral Pain Assessment Pain Assessment : Follow-up assessment Pain Scale Goal : 2 Pain Scale Used : 0-10 Scale Ciara Mccoy RN - 11/09/2019 23:27 EDT Pain Scale Intensity : 2 Ciara Mccoy RN - 11/09/2019 23:27 EDT Image 4 - Images currently included in the form version of this document have not been included in the text rendition version of the form. documented in this encounter Plan of Treatment Not on file documented as of this encounter Visit Diagnoses Not on filedocumented in this encounter
--- OUTSIDE RECORDS SUMMARY | 2025-01-27 13:08 | XMS_ITS | Encounter Summary ---
Author Organization [employer] ([place], [place], [place], [place]) Address [address] [place] [address] Care Team Providers Care Corking Machine Operator Name Role Phone Unavailable Primary Care Provider Unavailabl e Encounter Details Date Type Department Care Team (Late st Contact Info) Description 11/09/2019 Transcribed Document [facility] [place] [facility] [address] ProviderAgnieszka MD [address], [place] [id number] Social History Tobacco Use Types Packs/Day Years Used Date Smoking Tobacco: Never Assessed Sex and Gender Information Value Date Recorded Sex Assigned at Not on file Legal Sex Male 2:38 PM CDT Gender Identity Not on file Sexual Orientation Not on file documented as of this encounter Miscellaneous Notes * Cerner Conversion Note - Historical ProviderMD - 11/09/2019 2:00 PM CDT Pain Assessment Entered On: 11/09/2019 17:56 EDT Performed On: 11/09/2019 14:47 EDT by Teresa Bucio RN Intervention Information: acetaminophen Performed by Teresa Bucio RN on 11/09/2019 13:47:00 EDT acetaminophen,650mg Oral Pain Assessment Pain Assessment : Initial assessment Pain Scale Goal : 2 Pain Scale Used : 0-10 Scale Teresa Bucio RN - 11/09/2019 17:56 EDT Pain Scale Intensity : 2 Teresa Bucio RN - 11/09/2019 17:56 EDT Image 4 - Images currently included in the form version of this document have not been included in the text rendition version of the form. documented in this encounter Plan of Treatment Not on file documented as of this encounter Visit Diagnoses Not on filedocumented in this encounter
--- OUTSIDE RECORDS SUMMARY | 2025-01-27 13:08 | XMS_ITS | Encounter Summary ---
Author Organization [employer] ([place], [place], [place], [place]) Address [address] [place] [address] Care Team Providers Care Nursing Program Coordinator Name Role Phone Unavailable Primary Care Provider Unavailabl e Encounter Details Date Type Department Care Team (Late st Contact Info) Description 11/10/2019 Transcribed Document [facility] [place] [address] [place] [address] ProviderAgnieszka MD [address], [place] [id number] Social History Tobacco Use Types Packs/Day Years Used Date Smoking Tobacco: Never Assessed Sex and Gender Information Value Date Recorded Sex Assigned at Not on file Legal Sex Male 2:38 PM CDT Gender Identity Not on file Sexual Orientation Not on file documented as of this encounter Miscellaneous Notes * Cerner Conversion Note - Historical ProviderMD - 11/10/2019 10:00 AM CDT Pain Assessment Entered On: 11/10/2019 13:09 EDT Performed On: 11/10/2019 10:39 EDT by Dudley Stuart RN-TRAVELER Intervention Information: acetaminophen Performed by Dudley Stuart RN-TRAVELER on 11/10/2019 09:39:00 EDT acetaminophen,650mg Oral Pain Assessment Pain Assessment : Follow-up assessment Pain Scale Goal : 2 Pain Scale Used : 0-10 Scale Pain Improved by Intervention : Yes Dudley Stuart RN-TRAVELER - 11/10/2019 13:09 EDT Pain Scale Intensity : 1 Dudley Stuart RN-TRAVELER - 11/10/2019 13:09 EDT Image 4 - Images currently included in the form version of this document have not been included in the text rendition version of the form. documented in this encounter Plan of Treatment Not on file documented as of this encounter Visit Diagnoses Not on filedocumented in this encounter
--- OUTSIDE RECORDS SUMMARY | 2025-01-27 13:08 | XMS_ITS | Encounter Summary ---
Author Organization [employer] ([place], [place], [place], [place]) Address [address] [place] [address] Care Team Providers Care Shear Assembler Name Role Phone Unavailable Primary Care Provider Unavailabl e Encounter Details Date Type Department Care Team (Late st Contact Info) Description 11/10/2019 Transcribed Document [facility] [place] [address] [place] [address] ProviderAgnieszka MD [address] [place], [place] [address] Social History Tobacco Use Types Packs/Day Years Used Date Smoking Tobacco: Never Assessed Sex and Gender Information Value Date Recorded Sex Assigned at Not on file Legal Sex Male 2:38 PM CDT Gender Identity Not on file Sexual Orientation Not on file documented as of this encounter Miscellaneous Notes * Cerner Conversion Note - Historical ProviderMD - 11/10/2019 1:31 PM CDT Stroke/Warfarin Instructions Entered On: 11/10/2019 13:31 EDT Performed On: 11/10/2019 13:31 EDT by Dudley Stuart RN-TRAVELER Stroke/Warfarin Instructions Stroke/TIA Discharge Ins : N/A Warfarin Discharge Ins : N/A Dudley Stuart RN-TRAVELER - 11/10/2019 13:31 EDT documented in this encounter Plan of Treatment Not on file documented as of this encounter Visit Diagnoses Not on filedocumented in this encounter
--- OUTSIDE RECORDS SUMMARY | 2025-01-27 13:08 | XMS_ITS | Encounter Summary ---
Author Organization [email or web address] ([place], [place], [place], [place]) Address [address] [place] [address] Care Team Providers Care Aquatics Assistant Department Head Name Role Phone Unavailable Primary Care Provider Unavailabl e Encounter Details Date Type Department Care Team (Late st Contact Info) Description 11/10/2019 Transcribed Document [facility] [place] [facility] [place] [address] ProviderAgnieszka MD [address], [place] [phone] Social History Tobacco Use Types Packs/Day Years Used Date Smoking Tobacco: Never Assessed Sex and Gender Information Value Date Recorded Sex Assigned at Not on file Legal Sex Male 2:38 PM CDT Gender Identity Not on file Sexual Orientation Not on file documented as of this encounter Miscellaneous Notes * Cerner Conversion Note - Agnieszka ProviderMD - 11/10/2019 10:12 AM CDT Patient: SIMBA MAYEN JR Age: 69 years Sex: Male : 1950 Associated Diagnoses: None Author: BROOKS GORE, [facility] 69yoM with Low Back Pain - R/O Osteo PMH: 12/13 PLIF T10-S1, Parkinson's, 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 / Remicade 11/04 revision of T9-T10 with extension of laminectomies Rx Consult: Vancomycin MD: David Hernández Dx: Thoracic Osteo goal trough = 15-20 ID: Branden wt = 81kg I/O = 1670 / 2700 (50ml surg drain) NKDA Atb: Vanco / Cefepime (Start 11/01) Labs (Last four charted values) WBC 6.8 (NOV 09) 5.0 (APR 14) 5.1 (APR 13) 7.2 (OCT 12) HB L 10.1 (OCT 15) L 9.2 (OCT 14) L 9.1 (OCT 13) L 9.4 (OCT 12) HCT L 32.4 (OCT 15) L 29.4 (OCT 14) L 29.2 (OCT 13) L 28.9 (OCT 12) Plt 274 (OCT 15) 221 (OCT 14) 168 (OCT 13) 184 (OCT 12) Na L 135 (OCT 15) 137 (OCT 14) 137 (OCT 13) L 135 (OCT 12) K 4.1 (OCT 15) 4.3 (OCT 14) 4.2 (OCT 13) 4.1 (OCT 12) Cl 104 (OCT 15) 106 (OCT 14) 105 (OCT 13) 104 (OCT 12) CO2 29 (OCT 15) 29 (OCT 14) 26 (OCT 13) 27 (OCT 12) BUN 11 (OCT 15) 12 (OCT 14) 10 (OCT 13) 11 (OCT 12) Cr 0.80 (OCT 15) 0.80 (OCT 14) 0.70 (OCT 13) L 0.60 (OCT 12) Glu R 91 (OCT 15) 88 (OCT 14) 88 (OCT 13) 98 (OCT 12) Ca 8.7 (OCT 15) L 8.3 (OCT 14) L 8.0 (OCT 13) L 7.8 (OCT 12) Lactic 0.8 (NOV 07) C 2.4 (NOV 07) 1.3 (OCT 07) Calc CrCl = 68ml/min Vitals Signs (last 24 hrs) Last Charted Minimum Maximum Temp 98.9 (NOV 09 05:52) 97.5 (NOV 09 00:00) 98.4 (NOV 08 11:00) Mon HR 90 (NOV 09 05:52) 87 (NOV 09 04:00) 100 (NOV 08 11:00) Resp Rate 18 (NOV 09 05:52) 14 (NOV 09 00:00) 18 (NOV 08 18:08) SBP H 155 (NOV 09 05:52) 124 (NOV 08 11:00) H 172 (NOV 09 04:00) DBP H 94 (NOV 09 05:52) 77 (NOV 08 11:00) H 99 (NOV 09 04:00) MAP 120 (NOV 09 04:00) 90 (NOV 08 11:00) 120 (NOV 09 04:00) SpO2 97 (NOV 09 04:00) 95 (NOV 08 18:08) 97 (NOV 08 11:00) Cultures: 11/01 blood - anaerobic - Gram Positive Rods 07/31 btl 11/01 urine - NGTD 11/04 Wound/fungus/AFB/anaerobic - NGTD 11/05 Back - Pseudomonas Auriginosa Cefepime S Levels: 11/02 vanc trough - 17.4 (2019 [...] containing majority of the stomach. Plan: 1) De-Escalate Vancomycin per Dr David Otero 2) Monitor for changes in renal function and culture results. 3) Rx to sign off -pt to transfer to [facility] today Thank You, Brooks Gore RPh Electronically signed by Taryn [facility] Conversion Building Drafter Cerner at 11/12/2022 9:30 PM CDT documented in this encounter Plan of Treatment Not on file documented as of this encounter Visit Diagnoses Not on filedocumented in this encounter
--- OUTSIDE RECORDS SUMMARY | 2025-01-27 13:08 | XMS_ITS | Encounter Summary ---
Author Organization [employer] ([place], [place], [place], [place]) Address [address] [place] [address] Care Team Providers Care Elocution Teacher Name Role Phone Unavailable Primary Care Provider Unavailabl e Encounter Details Date Type Department Care Team (Late st Contact Info) Description 11/10/2019 Transcribed Document [facility] [place] Family [place] [facility] [place] [address] ProviderAgnieszka MD [address], [place] [id number] Social History Tobacco Use Types Packs/Day Years Used Date Smoking Tobacco: Never Assessed Sex and Gender Information Value Date Recorded Sex Assigned at Not on file Legal Sex Male 2:38 PM CDT Gender Identity Not on file Sexual Orientation Not on file documented as of this encounter Miscellaneous Notes * Cerner Conversion Note - Agnieszka ProviderMD - 11/10/2019 1:06 PM CDT Patient: SIMBA MAYEN JR Age: [...] surrounding the right pedicle screw at T10. 11/01 alert, NS has evaluated and is considering surgery 11/03/19 alert, very concerned that he might [...] can wiggle his toes a bit today. 11/08 afebrile, alert, states that he is unable to move his toes; P acnes from blood; gnr from op culture PAST MEDICAL HISTORY Rheumatoid Arthritis on Remicade [...] in history of present illness Health Status Current medications: (Selected) Inpatient Medications [...] Enema: 133 mL, Rectal, Daily, PRN: Constipation MiraLax: 17 Gram, Oral, Daily, PRN: Constipation [...] mL: 2 Gram, 200 mL/Hr, IV Piggyback, [id number] docusate sodium: 200 mg, Oral, BID heparin: 5,000 Units, SubCutaneous, Q8H hydrALAZINE: 10 mg, IV Push, Q6H, PRN: Hypertension lactobacillus acidophilus: 1 Cap, Oral, Daily morphine: 2 mg, IV Push, Q2H, PRN: Pain (Severe 7-10) oxyCODONE: 10 mg, Oral, Q4H, PRN: Pain (Moderate 4-6) oxyCODONE: 5 mg, Oral, Q4H, PRN: Pain (Mild 1-3) senna: 8.6 mg, Oral, At Bedtime sodium chloride 0.9% injectable solution: 10 mL, IV Push, Q8H Pending Complete fentaNYL: 25 mcg, IV Push, Q10Min Prescriptions Prescribed Norvasc 10 mg oral tablet: 1 Tab, Oral, Daily, 30 Tab, 0 Refill(s) cefepime 2 g/100 mL intravenous solution: 2 Gram, IV Piggyback, Q12H, till January 03, 2020. (8 weeks since surgery)., 1 Each, 0 Refill(s) lactobacillus acidophilus oral capsule: 1 Cap, Oral, Daily, for 8 weeks, 56 Cap, 0 Refill(s) Documented Medications Documented Azilect 1 mg oral tablet: 1 Tab, Oral, Daily, 30 Tab, 0 Refill(s) carbidopa-levodopa 25 mg-100 mg oral tablet: 1 Tab, Oral, QID, 120 Tab, 0 Refill(s) Physical Examination VS/Measurements Vitals Signs (last 24 hrs) Last Charted Minimum Maximum Temp 98.9 (NOV 09 05:52) 97.5 (NOV 09 00:00) 98.5 (NOV 08:) Mon HR 90 (NOV 09 05:52) 87 (NOV 09 04:00) 96 (NOV 08:) Resp Rate 18 (NOV 09 05:52) 14 (NOV 09 00:00) 18 (NOV 08 18:08) SBP H 155 (NOV 09 05:52) 134 (NOV 08:) H 172 (NOV 09 04:00) DBP H 94 (NOV 09 05:52) 86 (NOV 08:) H 99 (NOV 09 04:00) MAP 120 (NOV 09 04:00) 101 (NOV 08 14:21) 120 (NOV 09 04:00) SpO2 97 (NOV 09 04:00) 95 (NOV 08 18:08) 97 (NOV 09 04:00) General: alert; No acute distress. HENT: Normocephalic. [...] review: Labs (Last four charted values) WBC 6.8 (OCT 15) 5.0 (OCT 14) 5.1 (OCT 13) 7.2 (OCT 12) HB L 10.1 [...] 13) L 7.8 (OCT 12) Lactic 0.8 (OCT 13) C 2.4 (OCT 13) 1.3 (OCT 07) PT 11.3 (OCT 10) 11.2 (OCT 07) INR 1.1 (OCT 10) 1.1 (OCT 07) PTT H 36.2 (OCT 09) AST 15 (APR 12) 19 (NOV 05) 16 (NOV 01) ALT L 6 (NOV [...] at T10 suggests hardware infection Blood culture with P acnes from 1/2 sets Await ID of isolate from surgery- if it is P acnes then is the pathogen . As an immune compromised host he is also at risk for granulomatous pathogens -- P acnes from blood with only 1 of 2 sets + this potentially a contaminant but await final id of wound isolate -- Reconstructive surgery 11/04 with continuation of [...] Anticipate prolonged course of parenteral therapy -- Await micro id prior to making plans for [facility] transfer -- probiotic ?Continue to follow cultures and sensitivity reports an just antibiotics accordingly ?Follow daily labs while in hospital and trend results Discussed at length with in room documented in this encounter Plan of Treatment Not on file documented as of this encounter Visit Diagnoses Not on filedocumented in this encounter
--- OUTSIDE RECORDS SUMMARY | 2025-01-27 13:08 | XMS_ITS | Encounter Summary ---
Author Organization [employer] ([place], [place], [place], [place]) Address [address] [place] [address] Care Team Providers Care Mds Coordinator Name Role Phone Unavailable Primary Care Provider Unavailabl e Encounter Details Date Type Department Care Team (Late st Contact Info) Description 11/09/2019 Transcribed Document [facility] [place] [address] [place] [address] ProviderAgnieszka MD [address], [place] [id number] Social History Tobacco Use Types Packs/Day Years Used Date Smoking Tobacco: Never Assessed Sex and Gender Information Value Date Recorded Sex Assigned at Not on file Legal Sex Male 2:38 PM CDT Gender Identity Not on file Sexual Orientation Not on file documented as of this encounter Miscellaneous Notes * Cerner Conversion Note - Historical ProviderMD - 11/09/2019 5:00 PM CDT Chart Check - Review Order Profile Entered On: 11/09/2019 18:55 EDT Performed On: 11/09/2019 17:00 EDT by Teresa Bucio RN Chart Check Powerplans Initiated/Discontinued as Appropriate : Yes All Active Orders Reviewed : Yes Teresa Bucio RN - 11/09/2019 18:55 EDT Electronically signed by Gay Centeno Conversion Reeling And Tubing Machine Operator Cerner at 11/12/2022 9:53 PM CDT documented in this encounter Plan of Treatment Not on file documented as of this encounter Visit Diagnoses Not on filedocumented in this encounter
--- OUTSIDE RECORDS SUMMARY | 2025-01-27 13:08 | XMS_ITS | Encounter Summary ---
Author Organization [employer] ([place], [place], [place], [place]) Address [address] [place] [address] Care Team Providers Care Cold Water Machine Operator Name Role Phone Unavailable Primary Care Provider Unavailabl e Encounter Details Date Type Department Care Team (Late st Contact Info) Description 11/10/2019 Transcribed Document [facility] [place] [facility] [place] [address] ProviderAgnieszka MD [address], [place] [address] Social History Tobacco Use Types Packs/Day Years Used Date Smoking Tobacco: Never Assessed Sex and Gender Information Value Date Recorded Sex Assigned at Not on file Legal Sex Male 2:38 PM CDT Gender Identity Not on file Sexual Orientation Not on file documented as of this encounter Miscellaneous Notes * Cerner Conversion Note - Agnieszka ProviderMD - 11/10/2019 1:34 PM CDT Nursing Discharge Summary Entered On: 11/10/2019 13:36 EDT Performed On: 11/10/2019 13:34 EDT by Dudley Stuart RN-TRAVELER Discharge Documentation Nurse Report w/Opportunity for Questions : Called Discharge, Comment : Rosa from Spine Unit Discharge Date/Time : 11/10/2019 14:23 EDT Dudley Stuart RN-TRAVELER - 11/10/2019 14:23 EDT Patient Disposition, General : Discharge Discharge To : Fdc unit/facility Name of Receiving Facility/Provider : [facility] Mode Of Departure, General Discharge : Ambulance/ALS Accompanied By, Discharge : pad extraction tender IV Discontinued : Not applicable IV Therapy Comment : discharged with PICC for fdc antibiotics until January 02 Personal Belongings With Patient : Yes Pt's Own Supply of Medications Returned : No patient supply of medications to return Prescriptions Given to Patient : Yes (Comment: sent with packet to [facility] [Dudley Stuart RN-TRAVELER - 11/10/2019 13:34 EDT] ) Medications Given to Patient : No Discharge Instructions Reviewed With, Opportunity For Questions Given : Other: [facility] staff Patient Education Completed : Yes Number of Prescriptions Given : 3 Teaching Method : Explanation Teaching Evaluation : Verbalizes understanding Education Comment : Advised on plan of care and position changes Dudley Stuart RN-TRAVELER - 11/10/2019 13:34 EDT Electronically signed by Taryn [facility] Conversion Door Operator Cerner at 11/12/2022 9:39 PM CDT documented in this encounter Plan of Treatment Not on file documented as of this encounter Visit Diagnoses Not on filedocumented in this encounter
--- OUTSIDE RECORDS SUMMARY | 2025-01-27 13:08 | XMS_ITS | Encounter Summary ---
Author Organization [employer] ([place], [place], [place], [place]) Address [address] [place] [address] Care Team Providers Care Eyelet Row Marker Name Role Phone Unavailable Primary Care Provider Unavailabl e Encounter Details Date Type Department Care Team (Late st Contact Info) Description 11/10/2019 Transcribed Document [facility] [place] [address] [place] [address] ProviderAgnieszka MD [address], [place] [id number] Social History Tobacco Use Types Packs/Day Years Used Date Smoking Tobacco: Never Assessed Sex and Gender Information Value Date Recorded Sex Assigned at Not on file Legal Sex Male 2:38 PM CDT Gender Identity Not on file Sexual Orientation Not on file documented as of this encounter Miscellaneous Notes * Cerner Conversion Note - Agnieszka ProviderMD - 11/10/2019 11:14 AM CDT Final Discharge Planning Entered On: 11/10/2019 11:17 EDT Performed On: 11/10/2019 11:14 EDT by SAL BERRIOS RN-Care Management Final Discharge Planning Discharge Arrangements : Patient Post-Acute Information Patient Name: SIMBA MAYEN JR Gender: Male : [birth year] Age: 69 Years No Post-Acute Placement(s) Listed No Post-Acute Service(s) Listed No [place] Referral(s) Listed Patient Offered Choice/Affiliations Explained : Yes Designation of Choice Signed : Yes Important Medicare Message Reviewed With : Spouse Important Medicare Message Reviewed D/T : 11/10/2019 11:15 EDT Transportation Needs : Ambulance Discharge Transportation Arrangement Cmt : [facility] to transport 1400 Patient/Family Notified of Plan : Yes Is Patient Ready for Discharge? : Yes Physician Notified Patient is Ready for Discharge? : Yes Discharge To Care Management : [facility] -Inpatient Rehabilitation Facility-[facility] SAL BERRIOS RN-Care Management - 11/10/2019 11:14 EDT Final Narrative Note Final Narrative Note : Pt discharging today and transferring to [facility]/Spinal Unit. [facility] transporting pt at 1400. Will reach out to spouse to update. No additional needs noted to be addressed, will fax d/c summary when availabl e SAL BERRIOS RN-Care Management - 11/10/2019 11:14 EDT Electronically signed by Gay Centeno Conversion Provider Relations Representative Cerner at 11/12/2022 9:44 PM CDT documented in this encounter Plan of Treatment Not on file documented as of this encounter Visit Diagnoses Not on filedocumented in this encounter
--- OUTSIDE RECORDS SUMMARY | 2025-01-27 13:08 | XMS_ITS | Encounter Summary ---
Author Organization [employer] ([place], [place], [place], [place]) Address [address] [place] [address] Care Team Providers Care Tiller Man Name Role Phone Unavailable Primary Care Provider Unavailabl e Encounter Details Date Type Department Care Team (Late st Contact Info) Description 11/02/2019 Transcribed Document [facility] [place] [address] [place] [address] ProviderAgnieszka MD [address] [place] [address] Social History Tobacco Use Types Packs/Day Years Used Date Smoking Tobacco: Never Assessed Sex and Gender Information Value Date Recorded Sex Assigned at Not on file Legal Sex Male 2:38 PM CDT Gender Identity Not on file Sexual Orientation Not on file documented as of this encounter Miscellaneous Notes * Cerner Conversion Note - Historical ProviderMD - 11/02/2019 3:01 AM CDT Evaluation, Occupational Therapy Entered On: 11/03/2019 11:00 EDT Performed On: 11/03/2019 9:25 EDT by JESSICA ROSENBAUM, OTR/L General Information, OT Patient Orders : Order Date Order Ordering MD 11/02/2019 03:01 OT Evaluation and Treatment Ordered By: LORENA SAGASTUME MD-INT Active Diagnoses : 11/02/2019 12:00 Back pain 11/02/2019 12:00 Dorsalgia, unspecified 11/02/2019 12:00 Osteomyelitis, unspecified Therapy Diagnosis, OT : Decline in ADLs/functional mobility due to back pain. Possible sx intervention, unknown date. Onset of Problem, OT : 11/03/2019 EDT Admission Date : 11/02/2019 02:59 Co-treated by, OT : Physical Therapist Personal Devices : Personal Devices Glasses Assistive Devices : Assistive Devices No Devices Recorded General Information Comment, OT : Back pain. Hx scoliosis. Parkinson's. JESSICA ROSENBAUM OTR/Lc - 11/03/2019 11:18 EDT Visit Type, OT : Initial evaluation JESSICA ROSENBAUM OTR/Lc - 11/03/2019 11:00 EDT General Status Patient Received Status : Supine in bed Treatment Start Time : 11/03/2019 9:00 EDT Patient Left Status : Supine in bed, RN/PCT informed, All needs met and within reach RN/PCT Informed Comment : MY frost Treatment End Time : 11/03/2019 9:25 EDT Treatment Time : 25 Minute(s) JESSICA ROSENBAUM OTR/Lc - 11/03/2019 11:18 EDT History and Environment, OT Living Situation, Therapy : Home Patient Lives With : Spouse Persons Assisting Patient at Home : Alone, Spouse Professional Skilled Services : None Persons Providing Information : Patient Home Equipment, Therapy : Walker Home Setup : One story Stairs : Yes Stair Location(s) : Outside Outside Stairs, Number of Steps : 1 JESSICA ROSENBAUM OTR/Lc - 11/03/2019 11:18 EDT Prior LOF Bathing, OT : Independent Prior LOF Bed Mobility : Independent Prior LOF Upper Body Dressing, OT : Independent Prior LOF Lower Body Dressing, OT : Independent Prior LOF Toileting : Independent Prior LOF Transfer : Independent Prior LOF Grooming, OT : Independent Prior LOF for IADLs, OT : Independent JESSICA ROSENBAUM OTR/Lc - 11/03/2019 11:18 EDT Prior LOF for IADLs, OT : Independent until recent back pain began. Pt's assisting at times with ADL set up. Pt states he could not get in and out of the bathtube just before coming in. Pt is retired. Pt drives. JESSICA ROSENBAUM OTR/Lc - 11/03/2019 11:18 EDT Upper Extremity Right UE Active ROM : WFL Left UE Active ROM : WFL JESSICA ROSENBAUM OTR/L - 11/03/2019 11:18 EDT Self Care/Home Management, OT Self Feeding Assist Level, OT : Supervision or set-up Grooming Assist Level, OT : Supervision or set-up Bathing Assist Level, OT : Assist, moderate Upper Body Dressing Assist Level, OT : Supervision or set-up Lower Body Dressing Assist Level, OT : Assist, maximal Toileting Assist Level : Assist, maximal Toilet Transfer Assist Level : Assist, minimal JESSICA ROSENBAUM OTR/L - 11/03/2019 11:18 EDT Functional Mobility Mobility Grid Supine to Sit : Rehab Moderate assistance (Comment: log roll [JESSICA ROSENBAUM OTR/L - 11/03/2019 11:18 EDT] ) Sit to Stand : Rehab Minimal assistance Stand to Sit : Rehab Minimal assistance Sit to Supine : Rehab Moderate assistance JESSICA ROSENBAUM OTR/L - 11/03/2019 11:18 EDT Cognition Assessment, OT Orientation : Oriented x 4 Cognition Assessment, OT : Intact JESSICA ROSENBAUM OTR/L - 11/03/2019 11:18 EDT Indication Assessment, OT Occupational Therapy Indicated : Yes Interdisciplinary Consultation(s) Needed : Yes Interdisciplinary Consult, OT : Physical Therapy Problem List, OT : Impaired, bed mobility, Impaired, activities daily living, Impaired, endurance tolerance, Impaired functional mobility, Impaired, transfers, Pain limiting function Potential Barriers, OT : None evident Rehabilitation Potential, OT : Good JESSICA ROSENBAUM OTR/L - 11/03/2019 11:18 EDT Plan of Care, OT OT Tx Plan/Goals Established w Patient : Yes OT Frequency Rehab : Five days per week OT Duration Rehab : Fourteen days OT Treatments Planned : Activities of daily living, Functional mobility training, Safety education, Therapeutic activities, Therapeutic exercises JESSICA ROSENBAUM OTR/L - 11/03/2019 11:18 EDT Skilled Nursing Goals, OT Grooming LTG Grid Goal #1 Activity : Grooming Assist : Independent, modified Date to Meet : 11/17/2019 EDT Goal Status : Initial goal JESSICA ROSENBAUM OTR/L - 11/03/2019 11:18 EDT Bathing LTG Grid Goal #1 Activity : Bathing Assist : Assist, minimal Date to Meet : 11/17/2019 EDT Goal Status : Initial goal JESSICA ROSENBAUM OTR/L - 11/03/2019 11:18 EDT Dressing, Lower Body LTG Grid Goal #1 Activity : Dressing, Lower Body Assist : Assist, minimal Date to Meet : 11/17/2019 EDT Goal Status : Initial goal JESSICA ROSENBAUM OTR/Lc - 11/03/2019 11:18 EDT Toilet Transfer LTG Grid Goal #1 Activity : Toilet Transfer, Stand Pivot Sit Assist : Supervision or set up Date to Meet : 11/17/2019 EDT Goal Status : Initial goal ROSENBAUM SASCHA ELIZONDO/Lc - 11/03/2019 11:18 EDT Bed Mobility/ Bed Transfer LTG Grid Goal #1 Activity : Bed Mobility/Bed Transfer Assist : Assist, minimal Date to Meet : 11/17/2019 EDT Goal Status : Initial goal JESSICA ROSENBAUM OTR/Lc - 11/03/2019 11:18 EDT Treatment Note Subjective Comment : Agreeable. Patient's Response to Treatment : Pt responding well despite pain. Bed transfers the most painful for pt. Additional Objective Information : Log roll in and out of bed with ModA. Pt stood with Mariza and ambulated with RW, Mariza. Short, functional distance. Nicole care with assist from INTENSIVE CARE MEDICINE SPECIALIST Total. Pt washed his face with set up. Assessment : Pt will benefit from skilled OT during this hospital stay. Plan for Treatment : see ltgs JESSICA ROSENBAUM OTR/Lc - 11/03/2019 11:18 EDT Pain Assessment Pain Scaled Used : 0-10 Pain scale Pain Comment : 410 initially laying in bed. More pain with movement, particularly log roll. JESSICA ROSENBAUM OTR/Lc - 11/03/2019 11:18 EDT Image 1 - Images currently included in the form version of this document have not been included in the text rendition version of the form. Anticipated Discharge Needs, OT/PT Anticipated Discharge to : Home, with home health JESSICA ROSENBAUM OTR/Lc - 11/03/2019 11:18 EDT [place] OT Charges OT Selfcare/Hm Mgmt Ea 15 Min : 1 OT Eval Moderate Complexity : 1 JESSICA ROSENBAUM OTR/Lc - 11/03/2019 11:18 EDT documented in this encounter Plan of Treatment Not on file documented as of this encounter Visit Diagnoses Not on filedocumented in this encounter
--- OUTSIDE RECORDS SUMMARY | 2025-01-27 13:08 | XMS_ITS | Encounter Summary ---
Author Organization [employer] ([place], [place], [place], [place]) Address [address] [place] [address] Care Team Providers Care Inventory Associate Name Role Phone Unavailable Primary Care Provider Unavailabl e Encounter Details Date Type Department Care Team (Late st Contact Info) Description 11/09/2019 Transcribed Document [facility] [place] Family Medicine Replaced by [facility] [place] [address] ProviderAgnieszka MD [address], [place] [id number] Social History Tobacco Use Types Packs/Day Years Used Date Smoking Tobacco: Never Assessed Sex and Gender Information Value Date Recorded Sex Assigned at Not on file Legal Sex Male 2:38 PM CDT Gender Identity Not on file Sexual Orientation Not on file documented as of this encounter Miscellaneous Notes * Cerner Conversion Note - Agnieszka ProviderMD - 11/09/2019 11:49 AM CDT On Going Discharge Planning Entered On: 11/09/2019 11:50 EDT Performed On: 11/09/2019 11:49 EDT by SAL BERRIOS RN-Care Management Care [...] : No SAL BERRIOS RN-Care Management - 11/09/2019 11:49 EDT Narrative Progress Note Narrative Progress Note : Visited w/pt during MDR, and safe plan of discharge is to cont with [facility] upon being released. Pt was resting well this am and reported that OT did visit with him earlier. PT orders entered, and awaiting eval. [facility] is closely following pt. Tranportation will need to be arranged. Historical Progress Note : Neuro surgery note for today pending. Initial plans before first surgery were to transition to [facility]. Second surgery was performed, and spoke with pt/spouse and both still agree to safe plan of discharge being [facility] for rehab when medically cleared for discharge. [facility], and is going to speak w/pt about facility. CM to cont following SAL BERRIOS RN-Care Management - 11/08/19 14:04:02 Pt off floor since this am for thoracic extension with arrow procedure. CM to cont following, and safe plans of discharge is [facility] when medically cleared to be released. [facility] following SAL BERRIOS RN-Care Management - 11/05/19 12:51:13 Elvia stated that [facility] is following for patient placement. Patient is scheduled for surgery Friday11/05/19. Cm will continue to follow. ELKE VELÁZQUEZ, Broker In Charge-Gun Repair Clerk - 11/04/19 13:06:08 Patient is scheduled for an MRI on and surgery on Friday. He reported wanting to go to [facility]. Cm sent referral packet to [facility]. ELKE VELÁZQUEZ Broker In Charge-Gun Repair Clerk - 11/03/19 14:33:22 SAL BERRIOS RN-Care Management - 11/09/2019 11:49 EDT documented in this encounter Plan of Treatment Not on file documented as of this encounter Visit Diagnoses Not on filedocumented in this encounter
--- OUTSIDE RECORDS SUMMARY | 2025-01-27 13:08 | XMS_ITS | Encounter Summary ---
Author Organization [employer] ([place], [place], [place], [place]) Address [address] [place] [address] Care Team Providers Care Product Examiner Name Role Phone Unavailable Primary Care Provider Unavailabl e Encounter Details Date Type Department Care Team (Late st Contact Info) Description 11/11/2019 Transcribed Document [facility] [place] [address] ProviderAgnieszka MD [address], [place] [address] Social History Tobacco Use Types Packs/Day Years Used Date Smoking Tobacco: Never Assessed Sex and Gender Information Value Date Recorded Sex Assigned at Not on file Legal Sex Male 2:38 PM CDT Gender Identity Not on file Sexual Orientation Not on file documented as of this encounter Miscellaneous Notes * Cerner Conversion Note - Historical ProviderMD - 11/11/2019 8:07 AM CDT Discharge Summary, PT Entered On: 11/11/2019 8:09 EDT Performed On: 11/11/2019 8:07 EDT by LILA PIERCE, PT Discharge Summary Reason for Discharge : Discharged from hospital Discharged to, Therapy : Unit, rehabilitation Discharge Equipment, PT : None Discharge Summary Comment, PT : When last seen the patient was total assist for all bed mobilty and was non-ambulatory. He discharged to [facility]. LILA PIERCE, PT - 11/11/2019 8:07 EDT Short Term Goals Mobility/Bed Mobility STG PT Grid Goal #1 Goal #2 Activity : Supine to sit Assist : Assist, moderate Date to Meet : 11/16/2019 EDT Goal Status : Not met Comment : Re-eval 4/14/AM See goals below. LILA PIERCE, PT - 11/11/2019 8:07 EDT LILA PIERCE, PT - 11/11/2019 8:07 EDT Other PT STG Grid Goal #1 Goal : Patient will be able to sit at edge of bed independently for 1 minute (static sitting balance). Date to Meet : 11/16/2019 EDT Goal Status : Not met Comment : Re-eval 11/08 AM LILA PIERCE, PT - 11/11/2019 8:07 EDT Care Home Goals Mobility/Bed Mobility LTG PT Grid Goal #1 Goal #2 Activity : Supine to sit Sit to stand Assist : Assist, minimal Assist, moderate Date to Meet : 11/23/2019 EDT 11/23/2019 EDT Goal Status : Not met Not met Comment : via logroll, Re-paola 11/08AM Re-evgiselle 11/08/AM LILA PIERCE, PT - 11/11/2019 8:07 EDT LILA PIERCE, PT - 11/11/2019 8:07 EDT Ambulation LTG Grid Goal #1 Device : Walker, front wheel Distance : 200ft Assist : Independent, modified Date to Meet : 11/17/2019 EDT Goal Status : Discontinue LILA PIERCE, PT - 11/11/2019 8:07 EDT Other PT LTG Grid Goal #1 Other : Patient will tolerate exercises at edge of bed with fair sitting balance for dynamic activity. Date to Meet : 11/23/2019 EDT Goal Status : Not met Comment : Re-paola 11/08AM LILA PIERCE, PT - 11/11/2019 8:07 EDT documented in this encounter Plan of Treatment Not on file documented as of this encounter Visit Diagnoses Not on filedocumented in this encounter
--- OUTSIDE RECORDS SUMMARY | 2025-01-27 13:08 | XMS_ITS | Encounter Summary ---
Author Organization [employer] ([place], [place], [place], [place]) Address [address] [place] [address] Care Team Providers Care Tooling Engineering Tech Name Role Phone Unavailable Primary Care Provider Unavailabl e Encounter Details Date Type Department Care Team (Late st Contact Info) Description 11/09/2019 Transcribed Document [facility] [place] Family [place] [facility] [place] [address] ProviderAgnieszka MD [address], [place] [address] Social History Tobacco Use Types Packs/Day Years Used Date Smoking Tobacco: Never Assessed Sex and Gender Information Value Date Recorded Sex Assigned at Not on file Legal Sex Male 2:38 PM CDT Gender Identity Not on file Sexual Orientation Not on file documented as of this encounter Miscellaneous Notes * Cerner Conversion Note - Agnieszka ProviderMD - 11/09/2019 6:02 PM CDT Patient: SIMBA MAYEN JR Age: [...] mL: 2 Gram, 200 mL/Hr, IV Piggyback, [id number] docusate sodium: 200 mg, Oral, BID heparin: [...] mL: 1,250 mg, 250 mL/Hr, IV Piggyback, [id number] Pending Complete fentaNYL: 25 mcg, IV Push, Q10Min Documented Medications Documented Azilect 1 mg oral tablet: 1 Tab, Oral, Daily, 30 Tab, 0 Refill(s) Remicade: 10 mg/kg, IntraVENous, [id number], for Ulcerative Colitis; Last dose: 09/29/2019, 0 Refill(s) carbidopa-levodopa 25 mg-100 mg oral tablet: 1 Tab, Oral, QID, 120 Tab, 0 Refill(s) Physical Examination VS/Measurements Vitals Signs (last 24 hrs) Last Charted Minimum Maximum Temp 98.5 (NOV 08:) 97.8 (NOV 08 04:00) 98.7 (NOV 07:) Mon HR 96 (NOV 08:) 87 (NOV 07 18:) 100 (NOV 08 11:00) Resp Rate 16 (NOV 08 06:30) 16 (NOV 07:) 18 (NOV 07 23:30) SBP 134 (NOV 08) 124 (NOV 08 11:00) H 147 (NOV 07:) DBP 86 (NOV 08:) 77 (NOV 08 11:00) H 95 (NOV 08 06:30) MAP 101 (NOV 08:) 90 (NOV 08 11:00) 111 (NOV 07 18:) SpO2 96 (NOV 08:) 96 (NOV 08 06:30) 98 (NOV 07 23:30) General: alert; No acute distress. HENT: Normocephalic. [...] review: Labs (Last four charted values) WBC 5.0 (OCT 14) 5.1 (OCT 13) 7.2 (OCT 12) 7.2 (OCT 11) HB L 9.2 (OCT 14) L 9.1 (OCT 13) L 9.4 (OCT 12) L 11.7 (OCT 11) HCT L 29.4 (OCT 14) L 29.2 (OCT 13) L 28.9 (OCT 12) L 36.4 (OCT 11) Plt 221 (OCT 14) 168 (OCT 13) 184 (OCT 12) 230 (OCT 11) Na 137 (OCT 14) 137 (OCT 13) L 135 (OCT 12) L 133 (OCT 11) K 4.3 (OCT 14) 4.2 (OCT 13) 4.1 (OCT 12) 4.2 (OCT 11) Cl 106 (OCT 14) 105 (OCT 13) 104 (OCT 12) 103 (OCT 11) CO2 29 (OCT 14) 26 (OCT 13) 27 (OCT 12) 27 (OCT 11) BUN 12 (OCT 14) 10 (OCT 13) 11 (OCT 12) 9 (OCT 11) Cr 0.80 (OCT 14) 0.70 (OCT 13) L 0.60 (OCT 12) 0.70 (OCT 11) Glu R 88 (OCT 14) 88 (OCT 13) 98 (OCT 12) 98 (OCT 11) Ca L 8.3 (OCT 14) L 8.0 (OCT 13) L 7.8 (OCT 12) L 8.3 (OCT 11) Lactic 0.8 (OCT 13) C 2.4 (OCT 13) 1.3 (OCT 07) PT 11.3 (OCT 10) 11.2 (NOV 01) INR 1.1 (OCT 10) 1.1 (NOV 01) PTT H 36.2 (OCT 09) AST 15 (OCT 12) 19 (OCT 11) 16 (NOV 01) ALT L 6 (OCT 12) L 8 (OCT 11) 29 (NOV 01) ALK P 89 (OCT 12) 100 (OCT 11) 109 (APR 07) T Bili 0.6 (NOV 06) 0.5 (NOV [...] micro id prior to making plans for [facility] transfer -- probiotic ?Continue to follow cultures and sensitivity reports an just antibiotics accordingly ?Follow daily labs while in hospital and trend results Discussed at length with in room documented in this encounter Plan of Treatment Not on file documented as of this encounter Visit Diagnoses Not on filedocumented in this encounter
--- OUTSIDE RECORDS SUMMARY | 2025-01-27 13:08 | XMS_ITS | Encounter Summary ---
Author Organization [employer] ([place], [place], [place], [place]) Address [address] [place] [address] Care Team Providers Care Compliance Representative Name Role Phone Unavailable Primary Care Provider Unavailabl e Encounter Details Date Type Department Care Team (Late st Contact Info) Description 11/10/2019 Transcribed Document [facility] [place] [address] [place] [address] ProviderAgnieszka MD [address], [place] [id number] Social History Tobacco Use Types Packs/Day Years Used Date Smoking Tobacco: Never Assessed Sex and Gender Information Value Date Recorded Sex Assigned at Not on file Legal Sex Male 2:38 PM CDT Gender Identity Not on file Sexual Orientation Not on file documented as of this encounter Miscellaneous Notes * Cerner Conversion Note - Historical ProviderMD - 11/10/2019 7:44 PM CDT Spiritual Care Short Form Entered On: 11/10/2019 19:45 EDT Performed On: 11/10/2019 19:44 EDT by JEROME CONNELLY Chaplain General Information, Spiritual Care Spiritual Care Referred by : follow-up Reason for Visit : Follow Up Ministry Provided to : Patient, Family/Significant other Intervention/Comment/Summary Points : follow up visit. Carlos are pleased for one more visit. encouragement provided. Advent Preference : Jew JEROME CONNELLY Chaplain - 11/10/2019 19:44 EDT documented in this encounter Plan of Treatment Not on file documented as of this encounter Visit Diagnoses Not on filedocumented in this encounter
--- OUTSIDE RECORDS SUMMARY | 2025-01-27 13:08 | XMS_ITS | Encounter Summary ---
Author Organization [employer] ([place], [place], [place], [place]) Address [address] [place] [address] Care Team Providers Care Host And Hostess Name Role Phone Unavailable Primary Care Provider Unavailabl e Encounter Details Date Type Department Care Team (Late st Contact Info) Description 11/02/2019 Transcribed Document [facility] [place] [facility] [place] [address] ProviderAgnieszka MD [address], [place] [id number] Social History Tobacco Use Types Packs/Day Years Used Date Smoking Tobacco: Never Assessed Sex and Gender Information Value Date Recorded Sex Assigned at Not on file Legal Sex Male 2:38 PM CDT Gender Identity Not on file Sexual Orientation Not on file documented as of this encounter Miscellaneous Notes * Cerner Conversion Note - Agnieszka ProviderMD - 11/02/2019 3:41 AM CDT Spiritual Care Assessment Entered On: 11/02/2019 9:53 EDT Performed On: 11/02/2019 9:43 EDT by KOBI PALACIOS General Information Referred by : Patient Ministry Provided to : Patient KOBI PALACIOS - 11/02/2019 9:43 EDT Interventions Advance Directive Information Provided : Yes Advance Directive Comment : Discussed Living Will; Mr. Cuevas requested a booklet of information; Gave copy of Personal Choices booklet; He reported he would call for hangersmith if/when he is ready to complete a Living Will Emotional Support : Empathic/Engaged listening, Feelings expressed, Information provided Spiritual and Samaritan : Prayer shared, Spiritual/Samaritan support provided Change, Adjustment and Loss : End of life discussion/care, Relationships/Community/Support system discussed Ethics, Advocacy and Referral : Advocated for patient, Care now and/or in the future discussed, Resources provided KOBI PALACIOS - 11/02/2019 9:43 EDT Outcomes Affect/Behavior Changed : Encouraged Appreciation Expressed : Yes Information Received and Understood : Yes Thoughts, Feelings and Emotions Exp. : Yes Supportive Relationships Described : HEADKOBI - 11/02/2019 9:43 EDT documented in this encounter Plan of Treatment Not on file documented as of this encounter Visit Diagnoses Not on filedocumented in this encounter
--- OUTSIDE RECORDS SUMMARY | 2025-01-27 13:08 | XMS_ITS | Encounter Summary ---
Author Organization [employer] ([place], [place], [place], [place]) Address [address] [place] [address] Care Team Providers Care Mechanical Energy Engineer Name Role Phone Unavailable Primary Care Provider Unavailabl e Encounter Details Date Type Department Care Team (Late st Contact Info) Description 11/09/2019 Transcribed Document [facility] [place] Family Medicine [address] [place] [address] ProviderAgnieszka MD [address], [place] [address] Social History Tobacco Use Types Packs/Day Years Used Date Smoking Tobacco: Never Assessed Sex and Gender Information Value Date Recorded Sex Assigned at Not on file Legal Sex Male 2:38 PM CDT Gender Identity Not on file Sexual Orientation Not on file documented as of this encounter Miscellaneous Notes * Cerner Conversion Note - Historical ProviderMD - 11/09/2019 5:00 AM CDT Chart Check - Review Order Profile Entered On: 11/09/2019 4:54 EDT Performed On: 11/09/2019 5:00 EDT by Radha Josue Fire Warden-Health Unit Coord Chart Check Powerplans Initiated/Discontinued as Appropriate : Yes All Active Orders Reviewed : Yes Radha Josue Care Asst-Health Unit Coord - 11/09/2019 4:54 EDT documented in this encounter Plan of Treatment Not on file documented as of this encounter Visit Diagnoses Not on filedocumented in this encounter
--- OUTSIDE RECORDS SUMMARY | 2025-01-27 13:08 | XMS_ITS | Encounter Summary ---
Author Organization [employer] ([place], [place], [place], [place]) Address [address] [place] [address] Care Team Providers Care Perishable Freight Inspector Name Role Phone Unavailable Primary Care Provider Unavailabl e Encounter Details Date Type Department Care Team (Late st Contact Info) Description 11/08/2019 Transcribed Document [facility] Family Medicine [address] [place] [address] ProviderAgnieszka MD [facility] [address], [place] [id number] Social History Tobacco Use Types Packs/Day Years Used Date Smoking Tobacco: Never Assessed Sex and Gender Information Value Date Recorded Sex Assigned at Not on file Legal Sex Male 2:38 PM CDT Gender Identity Not on file Sexual Orientation Not on file documented as of this encounter Miscellaneous Notes * Cerner Conversion Note - Historical ProviderMD - 11/08/2019 10:35 AM CDT Attempt to Treat, PT Entered On: 11/08/2019 10:36 EDT Performed On: 11/08/2019 10:35 EDT by GABINO WILCOX PT Attempt to Treat Unable to Treat Due To : Patient on hold, Pending order clarification Inability to Treat Comment : Pt is s/p T8-T11 laminectomy. Pt will need new orders if skilled therapy is appropriate. RN Dana benítez. GABINO WILCOX, PT - 11/08/2019 10:35 EDT documented in this encounter Plan of Treatment Not on file documented as of this encounter Visit Diagnoses Not on filedocumented in this encounter
--- OUTSIDE RECORDS SUMMARY | 2025-01-27 13:08 | XMS_ITS | Encounter Summary ---
Author Organization [employer] ([place], [place], [place], [place]) Address [address] [place] [address] Care Team Providers Care Dealer Development Manager Name Role Phone Unavailable Primary Care Provider Unavailabl e Encounter Details Date Type Department Care Team (Late st Contact Info) Description 11/02/2019 Transcribed Document [facility] [place] [address] [place] [address] ProviderAgnieszka MD [address], [place] [address] Social History Tobacco Use Types Packs/Day Years Used Date Smoking Tobacco: Never Assessed Sex and Gender Information Value Date Recorded Sex Assigned at Not on file Legal Sex Male 2:38 PM CDT Gender Identity Not on file Sexual Orientation Not on file documented as of this encounter Miscellaneous Notes * Cerner Conversion Note - Historical ProviderMD - 11/02/2019 3:19 AM CDT ED Event Note Entered On: 11/02/2019 3:19 EDT Performed On: 11/02/2019 3:19 EDT by Dori Bah RN ED Event Note ED Event Date/Time : 11/02/2019 3:19 EDT ED Description of Event : Jovi (son) phone number: [phone] Dori Bah RN - 11/02/2019 3:19 EDT documented in this encounter Plan of Treatment Not on file documented as of this encounter Visit Diagnoses Not on filedocumented in this encounter
--- OUTSIDE RECORDS SUMMARY | 2025-01-27 13:08 | XMS_ITS | Encounter Summary ---
Author Organization [employer] ([place], [place], [place], [place]) Address [address] [place] [address] Care Team Providers Care Bill Poster Installer Name Role Phone Unavailable Primary Care Provider Unavailabl e Encounter Details Date Type Department Care Team (Late st Contact Info) Description 11/09/2019 Transcribed Document [facility] [place] [address] [place] [address] ProviderAgnieszka MD [address], [place] [id number] Social History Tobacco Use Types Packs/Day Years Used Date Smoking Tobacco: Never Assessed Sex and Gender Information Value Date Recorded Sex Assigned at Not on file Legal Sex Male 2:38 PM CDT Gender Identity Not on file Sexual Orientation Not on file documented as of this encounter Miscellaneous Notes * Cerner Conversion Note - Historical ProviderMD - 11/09/2019 7:24 PM CDT Spiritual Care Assessment Entered On: 11/09/2019 19:25 EDT Performed On: 11/09/2019 19:24 EDT by JEROME CONNELLY Chaplain General Information Initial Visit : No Referred by : follow-up Ministry Provided to : Patient, Family/Significant other Christian Preference : Hoahaoism JEROME CONNELLY Chaplain - 11/09/2019 19:24 EDT Spiritual Assessment Spiritual Assessment Comment/Summary Points : follow up visit with Simba and Marlys. Marlys still has meal voucher from yesterday. Prayer for both of them provided. Spirital Assessment Comment/Summary Report : SPIRITUAL ASSESSMENT COMMENT/SUMMARY No qualifying data available. JEROME CONNELLY Chaplain - 11/09/2019 19:24 EDT documented in this encounter Plan of Treatment Not on file documented as of this encounter Visit Diagnoses Not on filedocumented in this encounter
--- OUTSIDE RECORDS SUMMARY | 2025-01-27 13:08 | XMS_ITS | Encounter Summary ---
Author Organization [employer] ([place], [place], [place], [place]) Address [address] [place] [address] Care Team Providers Care Tube Sizer Operator Name Role Phone Unavailable Primary Care Provider Unavailabl e Encounter Details Date Type Department Care Team (Late st Contact Info) Description 11/09/2019 Transcribed Document [facility] [place] Family Medicine [address] [place] [address] ProviderAgnieszka MD [address], [place] [address] Social History Tobacco Use Types Packs/Day Years Used Date Smoking Tobacco: Never Assessed Sex and Gender Information Value Date Recorded Sex Assigned at Not on file Legal Sex Male 2:38 PM CDT Gender Identity Not on file Sexual Orientation Not on file documented as of this encounter Miscellaneous Notes * Cerner Conversion Note - Historical ProviderMD - 11/09/2019 2:00 AM CDT Pain Assessment Entered On: 11/09/2019 4:51 EDT Performed On: 11/09/2019 2:59 EDT by [facility] Intervention Information: acetaminophen Performed by Radha Josue [facility] Unit Coord on 11/09/2019 01:59:00 EDT acetaminophen,650mg Oral Pain Assessment Pain Assessment : Follow-up assessment Pain Scale Goal : 2 Pain Scale Used : 0-10 Scale Radha [facility]ue [facility] - 11/09/2019 4:51 EDT documented in this encounter Plan of Treatment Not on file documented as of this encounter Visit Diagnoses Not on filedocumented in this encounter
--- OUTSIDE RECORDS SUMMARY | 2025-01-27 13:08 | XMS_ITS | Encounter Summary ---
Author Organization [employer] ([place], [place], [place], [place]) Address [address] [place] [address] Care Team Providers Care Head Stock Transfer Clerk Name Role Phone Unavailable Primary Care Provider Unavailabl e Encounter Details Date Type Department Care Team (Late st Contact Info) Description 11/10/2019 Transcribed Document [facility] [place] Family Medicine [facility] [place] [address] ProviderAgnieszka MD [address], [place] [id number] Social History Tobacco Use Types Packs/Day Years Used Date Smoking Tobacco: Never Assessed Sex and Gender Information Value Date Recorded Sex Assigned at Not on file Legal Sex Male 2:38 PM CDT Gender Identity Not on file Sexual Orientation Not on file documented as of this encounter Miscellaneous Notes * Cerner Conversion Note - Agnieszka ProviderMD - 11/10/2019 1:33 PM CDT Patient Education Materials Follows: Preventing Pressure Injuries A pressure injury, sometimes called a bedsore or a pressure ulcer, is an injury to the skin and underlying tissue caused by pressure. A pressure injury can happen when your skin presses against a surface, such as a mattress or wheelchair seat, for too long. The pressure on the blood vessels causes reduced blood flow to your skin. This can eventually cause the skin tissue to and break down into a wound. Pressure injuries usually develop: ??? Over bony parts of the body, such as the tailbone, shoulders, elbows, hips, and heels. ??? Under medical devices, such as respiratory equipment, stockings, tubes, and splints. How can this condition affect me? Pressure injuries are caused by a lack of blood supply to an area of skin. These injuries begin as a reddened area on the skin and can become an open sore. They can result from intense pressure over a short period of time or from less pressure over a long period of time. Pressure injuries can vary in severity. They can cause pain, muscle damage, and infection. What can increase my risk? This condition is more likely to develop in people who: ??? Are in the hospital or an extended care facility. ??? Are bedridden or in a wheelchair. ??? Have an injury or disease that keeps them from: ? Moving normally. ? Feeling pain or pressure. ? Communicating if they feel pain or pressure. ??? Have a condition that: ? Makes them sleepy or less alert. ? Causes poor blood flow. ??? Need to wear a quality engineer medical device. ??? Have poor control of their bladder or bowel functions (incontinence). ??? Have poor nutrition (malnutrition). ??? Have had this condition before. ??? Are of certain ethnicities. People of , , or descent are at higher risk compared to other ethnic groups. What actions can I take to prevent pressure injuries? Reducing and redistributing pressure ??? Do not lie or sit in one position for a long time. Move or change position: ? Every hour when out of bed in a chair. ? Every two hours when in bed. ? As often as told by your health care provider. ??? Use pillows, wedges, or cushions to redistribute pressure. Ask your health care provider to recommend a mattress, cushions, or pads for you. ??? Use medical devices that do not rub your skin. Tell your health care provider if one of your medical devices is causing pain or irritation. Skin care If you are in the hospital, your health care providers: ??? Will inspect your skin, including areas under or around medical devices, at least twice a day. ??? May recommend that you use certain types of bedding to help prevent pressure injuries. These may include a pad, mattress, or chair cushion that is filled with gel, air, water, or foam. ??? Will evaluate your nutrition and consult a dietitian if needed. ??? Will inspect and change any wound dressings regularly. ??? May help you move into different positions every few hours. ??? Will adjust any medical devices and braces as needed to limit pressure on your skin. ??? Will keep your skin clean and dry. ??? May use gentle cleansers and skin protectants if you are incontinent. ??? Will moisturize any dry skin. In general, at home: ??? Keep your skin clean and dry. Gently pat your skin dry. ??? Do not rub or massage bony areas of your skin. ??? Moisturize dry skin. ??? Use gentle cleansers and skin protectants routinely if you are incontinent. ??? Check your skin at least once a day for any changes in color and for any new blisters or sores. Make sure to check under and around any medical devices and between skin folds. Have a caregiver do this for you if you are not able. Lifestyle ??? Be as active as you can every day. Ask your health care provider to suggest safe exercises or activities. ??? Do not abuse drugs or alcohol. ??? Do not use any products that contain nicotine or tobacco, such as cigarettes, e-cigarettes, and chewing tobacco. If you need help quitting, ask your health care provider. General instructions ??? Take [id number] and prescription medicines only as told by your health care provider. ??? Work with your health care provider to manage any chronic health conditions. ??? Eat a healthy diet that includes protein, vitamins, and minerals. Ask your health care provider what types of food you should eat. ??? Drink enough fluid to keep your urine pale yellow. ??? Keep all follow-up visits as told by your health care provider. This is important. Contact a health care provider if you: ??? Feel or see any changes in your skin. Summary ??? A pressure injury, sometimes called a bedsore or a pressure ulcer, is an injury to the skin and underlying tissue caused by pressure. ??? Do not lie or sit in one position for a long time. ??? Check your skin at least once a day for any changes in color and for any new blisters or sores. ??? Make sure to check under and around any medical devices and between skin folds. Have a caregiver do this for you if you are not able. ??? Eat a healthy diet that includes protein, vitamins, and minerals. Ask your health care provider what types of food you should eat. This information is not intended to replace advice given to you by your health care provider. Make sure you discuss any questions you have with your health care provider. Document Released: 08/21/2005 Document Revised: 04/06/2019 Document Reviewed: 04/06/2019 [employer] Interactive Patient Education ? 2019 [employer] Orthopedics Acute Back Pain, Adult Acute back pain is sudden and usually short-lived. It is often caused by an injury to the muscles and tissues in the back. The injury may result from: ??? A muscle or ligament getting overstretched or torn (strained). Ligaments are tissues that connect bones to each other. Lifting something improperly can cause a back strain. ??? Wear and tear (degeneration) of the spinal disks. Spinal disks are circular tissue that provides cushioning between the bones of the spine (vertebrae). ??? Twisting motions, such as while playing sports or doing yard work. ??? A hit to the back. ??? Arthritis. You may have a physical exam, lab tests, and imaging tests to find the cause of your pain. Acute back pain usually goes away with rest and home care. Follow these instructions at home: Managing pain, stiffness, and swelling ??? Take [id number]-[id number] and prescription medicines only as told by your health care provider. ??? Your health care provider may recommend applying ice during the first 24?48 hours after your pain starts. To do this: ? Put ice in a plastic bag. ? Place a towel between your skin and the bag. ? Leave the ice on for 20 minutes, 2?3 times a day. ??? If directed, apply heat to the affected area as often as told by your health care provider. Use the heat source that your health care provider recommends, such as a moist heat pack or a heating pad. ? Place a towel between your skin and the heat source. ? Leave the heat on for 20?30 minutes. ? Remove the heat if your skin turns bright red. This is especially important if you are unable to feel pain, heat, or cold. You have a greater risk of getting burned. Activity ??? Do not stay in bed. Staying in bed for more than 1?2 days can delay your recovery. ??? Sit up and stand up straight. Avoid leaning forward when you sit, or hunching over when you stand. ? If you work at a desk, sit close to it so you do not need to lean over. Keep your chin tucked in. Keep your neck drawn back, and keep your elbows bent at a right angle. Your arms should look like the letter L. ? Sit high and close to the steering wheel when you drive. Add lower back (lumbar) support to your car seat, if needed. ??? Take short walks on even surfaces as soon as you are able. Try to increase the length of time you walk each day. ??? Do not sit, drive, or housing project manager one place for more than 30 minutes at a time. Sitting or standing for long periods of time can put stress on your back. ??? Do not drive or use heavy machinery while taking prescription pain medicine. ??? Use proper lifting techniques. When you bend and lift, use positions that put less stress on your back: ? Bend your knees. ? Keep the load close to your body. ? Avoid twisting. ??? Exercise regularly as told by your health care provider. Exercising helps your back heal faster and helps prevent back injuries by keeping muscles strong and flexible. ??? Work with a physical therapist to make a safe exercise program, as recommended by your health care provider. Do any exercises as told by your physical therapist. Lifestyle ??? Maintain a healthy weight. Extra weight puts stress on your back and makes it difficult to have good posture. ??? Avoid activities or situations that make you feel anxious or stressed. Stress and anxiety increase muscle tension and can make back pain worse. Learn ways to manage anxiety and stress, such as through exercise. General instructions ??? Sleep on a firm mattress in a comfortable position. Try lying on your side with your knees slightly bent. If you lie on your back, put a pillow under your knees. ??? Follow your treatment plan as told by your health care provider. This may include: ? Cognitive or behavioral therapy. ? Acupuncture or massage therapy. ? Meditation or yoga. Contact a health care provider if: ??? You have pain that is not relieved with rest or medicine. ??? You have increasing pain going down into your legs or buttocks. ??? Your pain does not improve after 2 weeks. ??? You have pain at night. ??? You lose weight without trying. ??? You have a fever or chills. Get help right away if: ??? You develop new bowel or bladder control problems. ??? You have unusual weakness or numbness in your arms or legs. ??? You develop nausea or vomiting. ??? You develop abdominal pain. ??? You feel faint. Summary ??? Acute back pain is sudden and usually short-lived. ??? Use proper lifting techniques. When you bend and lift, use positions that put less stress on your back. ??? Take wzlv-lwv-llhzwvm and prescription medicines and apply heat or ice as directed by your health care provider. This information is not intended to replace advice given to you by your health care provider. Make sure you discuss any questions you have with your health care provider. Document Released: 07/14/2006 Document Revised: 02/18/2019 Document Reviewed: 02/25/2018 [employer] Interactive Patient Education ? 2019 [employer] Electronically signed by Gay Centeno Conversion Radar Signal Processing Engineer Evelio at 11/12/2022 9:34 PM CDT documented in this encounter Plan of Treatment Not on file documented as of this encounter Visit Diagnoses Not on filedocumented in this encounter
--- OUTSIDE RECORDS SUMMARY | 2025-01-27 13:08 | XMS_ITS | Encounter Summary ---
Author Organization [employer] ([place], [place], [place], [place]) Address [address] [place] [address] Care Team Providers Care Spinner Tender Name Role Phone Unavailable Primary Care Provider Unavailabl e Encounter Details Date Type Department Care Team (Late st Contact Info) Description 11/09/2019 Transcribed Document [facility] [place] Family Medicine [address] [place] [address] ProviderAgnieszka MD [address], [place] [id number] Social History Tobacco Use Types Packs/Day Years Used Date Smoking Tobacco: Never Assessed Sex and Gender Information Value Date Recorded Sex Assigned at Not on file Legal Sex Male 2:38 PM CDT Gender Identity Not on file Sexual Orientation Not on file documented as of this encounter Miscellaneous Notes * Cerner Conversion Note - Historical ProviderMD - 11/09/2019 2:00 AM CDT Reporter Details Entered On: 11/09/2019 4:51 EDT Performed On: 11/09/2019 2:00 EDT by [facility] Order Details Transport Mode Order Detail : Stretcher/Gurney Isolation Precautions Order Detail : Standard Precautions Order Detail : N/A IV Order Detail : 0 Oxygen Order Detail : 0 Nurse Collect Order Detail : 1 Lift/Transfer : Independent Central Line Order Detail : Yes Room Service : Not Appropriate Arterial Line : No [facility] - 11/09/2019 4:51 EDT documented in this encounter Plan of Treatment Not on file documented as of this encounter Visit Diagnoses Not on filedocumented in this encounter
--- OUTSIDE RECORDS SUMMARY | 2025-01-27 13:08 | XMS_ITS | Encounter Summary ---
Author Organization [employer] ([place], [place], [place], [place]) Address [address] [place] [address] Care Team Providers Care Shutdown Planner Name Role Phone Unavailable Primary Care Provider Unavailabl e Encounter Details Date Type Department Care Team (Late st Contact Info) Description 11/09/2019 Transcribed Document [facility] [place] Family Medicine [facility] [place] [address] ProviderAgineszka MD [address], [place] [id number] Social History Tobacco Use Types Packs/Day Years Used Date Smoking Tobacco: Never Assessed Sex and Gender Information Value Date Recorded Sex Assigned at Not on file Legal Sex Male 2:38 PM CDT Gender Identity Not on file Sexual Orientation Not on file documented as of this encounter Miscellaneous Notes * Cerner Conversion Note - Historical ProviderMD - 11/09/2019 6:00 PM CDT Pain Assessment Entered On: 11/09/2019 18:55 EDT Performed On: 11/09/2019 18:32 EDT by Teresa Bucio RN Intervention Information: acetaminophen Performed by Teresa Bucio RN on 11/09/2019 17:32:00 EDT acetaminophen,650mg Oral Pain Assessment Pain Assessment : Initial assessment Pain Scale Goal : 2 Pain Scale Used : 0-10 Scale Teresa Bucio RN - 11/09/2019 18:55 EDT Pain Scale Intensity : 1 Teresa Bucio RN - 11/09/2019 18:55 EDT Image 4 - Images currently included in the form version of this document have not been included in the text rendition version of the form. documented in this encounter Plan of Treatment Not on file documented as of this encounter Visit Diagnoses Not on filedocumented in this encounter
--- OUTSIDE RECORDS SUMMARY | 2025-01-27 13:08 | XMS_ITS | Clinical Summary ---
Author Organization [employer] ([place], [place], [place], [place]) Address [address] [place] [address] Care Team Providers Care Vessel Engineer Name Role Phone Unavailable Primary Care Provider Unavailabl e Social History Tobacco Use Types Packs/Day Years Used Date Smoking Tobacco: Never Assessed Sex and Gender Information Value Date Recorded Sex Assigned at Not on file Legal Sex Male 2:38 PM CDT Gender Identity Not on file Sexual Orientation Not on file Plan of Treatment Not on file
--- OUTSIDE RECORDS SUMMARY | 2025-01-27 13:08 | XMS_ITS | Encounter Summary ---
Author Organization [employer] ([place], [place], [place], [place]) Address [address] [place] [address] Care Team Providers Care Dairy Equipment Specialist Name Role Phone Unavailable Primary Care Provider Unavailabl e Encounter Details Date Type Department Care Team (Late st Contact Info) Description 11/10/2019 Transcribed Document [facility] [place] [facility] [place] [address] ProviderAgnieszka MD [address], [place] [id number] Social History Tobacco Use Types Packs/Day Years Used Date Smoking Tobacco: Never Assessed Sex and Gender Information Value Date Recorded Sex Assigned at Not on file Legal Sex Male 2:38 PM CDT Gender Identity Not on file Sexual Orientation Not on file documented as of this encounter Miscellaneous Notes * Cerner Conversion Note - Agnieszka ProviderMD - 11/10/2019 3:00 PM CDT NOAH NUNEZ, [address] [place] [address] [place]ii [place] NURSE PRACTITIONER Re: SIMBA MAYEN Date of Visit: 11/02/2019 Dear NOAH NUNEZ Thank you for allowing me to participate in your patient's care. Please see the accompanying information that I would like to share with you regarding your patient. Needs repeat CBC and BMP in 2-3 days. Follow-up with PCP regarding thyroid nodule and large hiatal hernia. Follow-up with neurosurgery and neurologist outpatient. See discharge summary with imaging reports and labs attached. This Document is confidential and intended solely for the use of the individual or entity to which it is addressed. If you are not the named addressee, please disregard and do not disseminate, distribute or copy this information. If you are the intended recipient any disclosure of this information and its contents is strictly prohibited. Sincerely, LEXII HOUSTON [address] [place] [address] The following document(s) were included in the letter: November 10, 2019 11:51:00 EDT - (11/10/2019) Discharge Note documented in this encounter Plan of Treatment Not on file documented as of this encounter Visit Diagnoses Not on filedocumented in this encounter
--- OUTSIDE RECORDS SUMMARY | 2025-01-27 13:08 | XMS_ITS | Encounter Summary ---
Author Organization [employer] ([place], [place], [place], [place]) Address [address] [place] [address] Care Team Providers Care Elevated Motorman Name Role Phone Unavailable Primary Care Provider Unavailabl e Encounter Details Date Type Department Care Team (Late st Contact Info) Description 11/09/2019 Transcribed Document [facility] [place] [address] [place] [address] ProviderAgnieszka MD [address] [place] [address] Social History Tobacco Use Types Packs/Day Years Used Date Smoking Tobacco: Never Assessed Sex and Gender Information Value Date Recorded Sex Assigned at Not on file Legal Sex Male 2:38 PM CDT Gender Identity Not on file Sexual Orientation Not on file documented as of this encounter Miscellaneous Notes * Cerner Conversion Note - Historical ProviderMD - 11/09/2019 10:25 AM CDT Re-Evaluation, Physical Therapy Entered On: 11/09/2019 10:25 EDT Performed On: 11/09/2019 10:25 EDT by JACQUI MCGUIRE, PT General Information, PT Onset of Problem, PT : 11/02/2019 EDT Co-treated by, PT : Occupational Therapist General Information Comment, PT : Dx: back pain, T9-T10 fracture Sx: 11/04: T8-T11 Laminectomy Hx: Parkinsons, DJD, spinal stenosis, previous [id number] fusion. JACQUI MCGUIRE, PT - 11/09/2019 11:42 EDT Visit Type, PT : Re-evaluation JACQUI MCGUIRE, PT - 11/09/2019 10:25 EDT Patient Orders : Order Date Order Ordering 11/02/2019 03:01 PT Evaluation and Treatment Ordered By: LORENA SAGASTUME MD-INT 11/03/2019 11:32 PT Additional Treatment Ordered By: LAVERNE OLSON, RONY 11/05/2019 11:20 Physical Therapy Eval and Treat Ordered By: HEIDE KAT MD-SNU 11/08/2019 15:53 PT Evaluation and Treatment Ordered By: MYRTLE HOUSTON PA Active Diagnoses : 11/02/2019 12:00 Back pain 11/02/2019 12:00 Dorsalgia, unspecified 11/02/2019 12:00 Osteomyelitis, unspecified JACQUI MCGUIRE, PT - 11/09/2019 11:53 EDT Therapy Diagnosis, PT : No muscle activiation BLE. JACQUI MCGUIRE, PT - 11/09/2019 11:42 EDT Admission Date : 11/02/2019 02:59 Personal Devices : Personal Devices Glasses Assistive Devices : Assistive Devices No Devices Recorded JACQUI MCGUIRE, PT - 11/09/2019 11:[address] : Fall prevention measures, Log roll precautions JACQUI MCGUIRE, PT - 11/09/2019 10:25 EDT General Status Patient Received Status : Supine in bed Treatment Start Time : 11/09/2019 10:05 EDT Patient Left Status : Supine in bed, Family/Visitors at bedside, Communication board completed, All needs met and within reach Treatment End Time : 11/09/2019 10:20 EDT Treatment Time : 15 Minute(s) JACQUI MCGUIRE, PT - 11/09/2019 11:42 EDT History and Environment Living Situation, Therapy : Home Patient Lives With : Spouse Persons Assisting Patient at Home : Alone, Spouse Professional Skilled Services : None Persons Providing Information : Patient, Spouse Home Equipment Therapy, PT : Shower Equipment, Walker Home Setup : One story Stairs : Yes Stair Location(s) : Outside Outside Stairs, Number of Steps : 1 Railing Outside : No Prior LOF Assist with ADL Comment : As of 3 weeks ago he was walking without a walker. Then he started to have a gradual decline with worsening weakness. JACQUI MCGUIRE, PT - 11/09/2019 11:42 EDT Upper Extremity Right UE Active Assist ROM : WFL Left UE Active Assist ROM : WFL Upper Extremity Comment : OT states once she positioned BUE in testing position he was strong. JACQUI MCGUIRE, PT - 11/09/2019 11:42 EDT Lower Extremity RLE Passive ROM : WFL LLE Passive ROM : WFL Lower Extremity Comment : Patient had no muscle activation BLE. JACQUI MCGUIRE, PT - 11/09/2019 11:42 EDT Functional Mobility Mobility Grid Bed Roll Left : Rehab Total assistance Bed Scooting : Rehab Total assistance Supine to Sit : Rehab Total assistance Sit to Supine : Rehab Total assistance JACQUI MCGUIRE, PT - 11/09/2019 11:42 EDT Gait Training/Assessment, PT Gait Assistance Level : Unable to assess/activity not appropriate JACQUI MCGUIRE, PT - 11/09/2019 11:42 EDT Cognition Assessment, PT Orientation : Oriented x 4 Cognition Assessment Comment : Patient appears lethargic. Attention Assessment : Present JACQUI MCGUIRE, PT - 11/09/2019 11:42 EDT Edu Topics Physical Therapy Education Grid Bed Mobility Training : Needs further teaching, Needs reinforcement Role of Physical Therapy : Verbalizes understanding Therapeutic Exercises : Needs further teaching, Needs reinforcement JACQUI MCGUIRE, PT - 11/09/2019 11:42 EDT Indication Assesessment, PT Physical Therapy Indicated : Yes PT Problem List : Impaired, bed mobility, Impaired, endurance tolerance, Impaired, sitting balance, Impaired, standing balance, Impaired, strength, Impaired, transfers Potential Barriers To Therapy : Acuity of Illness Rehabilitation Potential : Fair JACQUI MCGUIRE, PT - 11/09/2019 11:42 EDT Plan of Care, PT PT Tx Plan/Goals Established w Patient : Yes PT Frequency Rehab : Daily PT Duration Rehab : Fourteen days PT Treatments Planned : Balance training, Bed mobility training, Therapeutic exercises, Transfer training JACQUI MCGUIRE, PT - 11/09/2019 11:42 EDT Short Term Goals Mobility/Bed Mobility STG PT Grid Goal #1 Goal #2 Activity : Supine to sit Assist : Assist, moderate Date to Meet : 11/16/2019 EDT Goal Status : Initial goal Comment : Re-eval AM See goals below. JACQUI MCGUIRE, PT - 11/09/2019 11:42 EDT JACQUI MCGUIRE, PT - 11/09/2019 11:42 EDT Other PT STG Grid Goal #1 Goal : Patient will be able to sit at edge of bed independently for 1 minute (static sitting balance). Date to Meet : 11/16/2019 EDT Goal Status : Initial goal Comment : Re-eval 11/08 AM JACQUI MCGUIRE, PT - 11/09/2019 11:42 EDT [facility] Goals Mobility/Bed Mobility LTG PT Grid Goal #1 Goal #2 Activity : Supine to sit Sit to stand Assist : Assist, minimal Assist, moderate Date to Meet : 11/23/2019 EDT 11/23/2019 EDT Goal Status : Revised Revised Comment : via logroll, Re-paola 11/08AM Re-eval 11/08/AM JACQUI MCGUIRE, PT - 11/09/2019 11:42 EDT JACQUI MCGUIRE, PT - 11/09/2019 11:42 EDT Ambulation LTG Grid Goal #1 Device : Walker, front wheel Distance : 200ft Assist : Independent, modified Date to Meet : 11/17/2019 EDT Goal Status : Discontinue JACQUI MCGUIRE, PT - 11/09/2019 11:42 EDT Other PT LTG Grid Goal #1 Other : Patient will tolerate exercises at edge of bed with fair sitting balance for dynamic activity. Date to Meet : 11/23/2019 EDT Goal Status : Initial goal Comment : Re-paola JACQUI MCGUIRE, PT - 11/09/2019 11:42 EDT Treatment Note Subjective Comment : Patient agrees to PTx. Nsg. Ok'd PTx. Additional Objective Information : patient with decreased sensation BLE from anterior thighs to toes, but states he has numbness and tingling. Patient was able to sit at edge of bed for 5 minutes before fatiguing. He was performing BUE AAROM shoulder flexion, elbow flexion, shoulder shrugs, scapular squeezes. Sitting balance was Max Ax1 to hold and constant verbal cues due to his lethargy. Assessment : patient presents with functional decline and no motor control of BLE. patient would benefit from skilled PT to work on trunk control and strengthening at edge of bed to further progress patient's mobility and prepare him for rehab placement. Plan for Treatment : con't PTx. JACQUI MCGUIRE, PT - 11/09/2019 11:42 EDT Pain Assessment Pain Scaled Used : 0-10 Pain scale Pain Score Pre-Intervention : 0 Pain Score During-Intervention : 0 Pain Score Post-Intervention. : 0 JACQUI MCGUIRE, PT - 11/09/2019 11:42 EDT Image 1 - Images currently included in the form version of this document have not been included in the text rendition version of the form. Anticipated Discharge Needs, OT/PT Anticipated Discharge to : Unit, rehabilitation Recommend Continued Therapy at Discharge : Yes JACQUI MCGUIRE, PT - 11/09/2019 11:42 EDT [place] [facility] Charges PT Re-Evaluation : 1 JACQUI MCGUIRE PT - 11/09/2019 11:53 EDT PT Therap. Exercise 15 min : 1 JACQUI MCGUIRE PT - 11/09/2019 11:42 EDT JACQUI MCGUIRE PT - 11/09/2019 11:53 EDT documented in this encounter Plan of Treatment Not on file documented as of this encounter Visit Diagnoses Not on filedocumented in this encounter
--- OUTSIDE RECORDS SUMMARY | 2025-01-27 13:08 | XMS_ITS | Encounter Summary ---
Author Organization [employer] ([place], [place], [place], [place]) Address [address] [place] [address] Care Team Providers Care Flight Inspector Name Role Phone Unavailable Primary Care Provider Unavailabl e Encounter Details Date Type Department Care Team (Late st Contact Info) Description 11/02/2019 Transcribed Document [facility] [place] Family Medicine [facility] [place] [address] ProviderAgnieszka MD [address], [place] [id number] Social History Tobacco Use Types Packs/Day Years Used Date Smoking Tobacco: Never Assessed Sex and Gender Information Value Date Recorded Sex Assigned at Not on file Legal Sex Male 2:38 PM CDT Gender Identity Not on file Sexual Orientation Not on file documented as of this encounter Miscellaneous Notes * Cerner Conversion Note - Historical ProviderMD - 11/02/2019 1:00 AM CDT Pain Assessment Entered On: 11/02/2019 2:24 EDT Performed On: 11/02/2019 2:23 EDT by Teresa Mohamud Rn Intervention Information: ketorolac Performed by Dori Bah RN on 11/02/2019 01:36:00 EDT ketorolac,30mg IV Push,Peripheral Line 1 Pain Assessment Pain Assessment : Follow-up assessment Pain Scale Used : 0-10 Scale Location : Back Teresa Mohamud Rn - 11/02/2019 2:23 EDT Pain Scale Intensity : 7 Teresa Mohamud Rn - 11/02/2019 2:23 EDT Image 4 - Images currently included in the form version of this document have not been included in the text rendition version of the form. documented in this encounter Plan of Treatment Not on file documented as of this encounter Visit Diagnoses Not on filedocumented in this encounter
--- OUTSIDE RECORDS SUMMARY | 2025-01-27 13:08 | XMS_ITS | Encounter Summary ---
Author Organization [employer] ([place], [place], [place], [place]) Address [address] [place] [address] Care Team Providers Care Marine Operations Coordinator Name Role Phone Unavailable Primary Care Provider Unavailabl e Encounter Details Date Type Department Care Team (Late st Contact Info) Description 11/02/2019 Transcribed Document [facility] [place] [address] [place] [address] ProviderAgnieszka MD [address], [place] [id number] Social History Tobacco Use Types Packs/Day Years Used Date Smoking Tobacco: Never Assessed Sex and Gender Information Value Date Recorded Sex Assigned at Not on file Legal Sex Male 2:38 PM CDT Gender Identity Not on file Sexual Orientation Not on file documented as of this encounter Miscellaneous Notes * Cerner Conversion Note - Historical ProviderMD - 11/02/2019 2:30 PM CDT Attempt to Treat, OT Entered On: 11/02/2019 14:51 EDT Performed On: 11/02/2019 14:30 EDT by JESSICA ROSENBAUM OTR/Lc Attempt to Treat Inability to Treat Comment : N/A. Off floor for MRI. JESSICA ROSENBAUM OTR/Lc - 11/02/2019 14:49 EDT documented in this encounter Plan of Treatment Not on file documented as of this encounter Visit Diagnoses Not on filedocumented in this encounter
--- OUTSIDE RECORDS SUMMARY | 2025-01-27 13:08 | XMS_ITS | Encounter Summary ---
Author Organization [employer] ([place], [place], [place], [place]) Address [address] [place] [address] Care Team Providers Care Industrial Relations Specialist Name Role Phone Unavailable Primary Care Provider Unavailabl e Encounter Details Date Type Department Care Team (Late st Contact Info) Description 11/02/2019 Transcribed Document [facility] [place] Family Medicine [address] [place] [address] ProviderAgnieszka MD [address] [place], [place] [address] Social History Tobacco Use Types Packs/Day Years Used Date Smoking Tobacco: Never Assessed Sex and Gender Information Value Date Recorded Sex Assigned at Not on file Legal Sex Male 2:38 PM CDT Gender Identity Not on file Sexual Orientation Not on file documented as of this encounter Miscellaneous Notes * Cerner Conversion Note - Historical ProviderMD - 11/02/2019 12:31 AM CDT [place] Suicide Severity Rating Scale (C-SSRS) Entered On: 11/02/2019 2:21 EDT Performed On: 11/02/2019 2:19 EDT by Teresa Mohamud Rn [place] Suicide Severity Rating Scale (C-SSRS) CSSRS Past Month Wish to be : No CSSRS Past Month Suicidal Thoughts : No CSSRS Lifetime Suicide Behavior : No Suicide Severity Rating Score : 0 Suicide Severity Rating : No Additional Care Required at this time Teresa Mohamud Rn - 11/02/2019 2:19 EDT Electronically signed by Gay [employer] Conversion [employer] Machine Operator Cerner at 11/12/2022 9:52 PM CDT documented in this encounter Plan of Treatment Not on file documented as of this encounter Visit Diagnoses Not on filedocumented in this encounter
--- OUTSIDE RECORDS SUMMARY | 2025-01-27 13:08 | XMS_ITS | Encounter Summary ---
Author Organization [employer] ([place], [place], [place], [place]) Address [address] [place] [address] Care Team Providers Care Metal Flow Coordinator Name Role Phone Unavailable Primary Care Provider Unavailabl e Encounter Details Date Type Department Care Team (Late st Contact Info) Description 11/02/2019 Transcribed Document [facility] [place] [address] [place] [address] ProviderAgnieszka MD [address], [place] [id number] Social History Tobacco Use Types Packs/Day Years Used Date Smoking Tobacco: Never Assessed Sex and Gender Information Value Date Recorded Sex Assigned at Not on file Legal Sex Male 2:38 PM CDT Gender Identity Not on file Sexual Orientation Not on file documented as of this encounter Miscellaneous Notes * Cerner Conversion Note - Historical ProviderMD - 11/02/2019 3:01 AM CDT Evaluation, Physical Therapy Entered On: 11/03/2019 11:49 EDT Performed On: 11/03/2019 11:33 EDT by LAVERNE OLSON, RONY General Information, PT Visit Type, PT : Initial evaluation Patient Orders : Order Date Order Ordering 11/02/2019 03:01 PT Evaluation and Treatment Ordered By: LORENA SAGASTUME MD-INT 11/03/2019 11:32 PT Additional Treatment Ordered By: LAVERNE OLSON, PT Active Diagnoses : 11/02/2019 12:00 Back pain 11/02/2019 12:00 Dorsalgia, unspecified 11/02/2019 12:00 Osteomyelitis, unspecified Therapy Diagnosis, PT : Debility Onset of Problem, PT : 11/03/2019 EDT Admission Date : 11/02/2019 02:59 Personal Devices : Personal Devices Glasses Assistive Devices : Assistive Devices No Devices Recorded Precautions in Place : Fall prevention measures, Log roll precautions General Information Comment, PT : Admit Dx: back pain due to osteomyelitis/discitis T9-T10 Anticipated thoracic fusion extension (11/04) per chart review Hx: scoliosis, compression fx, colitis, Parkinson's LAVERNE OLSON, PT - 11/03/2019 11:33 EDT General Status Patient Received Status : Supine in bed Treatment Start Time : 11/03/2019 8:59 EDT Patient Left Status : Supine in bed, RN/PCT informed, Communication board completed, All needs met and within reach Treatment End Time : 11/03/2019 9:25 EDT Treatment Time : 26 Minute(s) LAVERNE OLSON, PT - 11/03/2019 11:33 EDT History and Environment Living Situation, Therapy : Home Patient Lives With : Spouse Persons Assisting Patient at Home : Alone, Spouse Professional Skilled Services : None Persons Providing Information : Patient Home Equipment Therapy, PT : Shower Equipment, Walker Shower Equipment : Shower Chair, with back Walker : Walker, front wheel Home Setup : One story Stairs : Yes Stair Location(s) : Outside Outside Stairs, Number of Steps : 1 Railing Outside : No LAVERNE OLSON, PT - 11/03/2019 11:33 EDT Prior Level of Function PT GRID Prior LOF Ambulation, Household : Independent Prior LOF Ambulation, Community : Independent Prior LOF Bed Mobility : Independent Prior LOF Toileting : Independent Prior LOF Transfer : Independent LAVERNE OLSON, PT - 11/03/2019 11:33 EDT Prior LOF Assist with ADL Comment : pt stating generally independent but admits to difficulty at times with showering and stepping over his tub requiring assist from his ; pt stating drives LAVERNE OLSON, PT - 11/03/2019 11:33 EDT Lower Extremity RLE Active ROM : WFL Right LE Strength : WFL LLE Active ROM : WFL Left LE Strength : WFL LAVERNE OLSON, PT - 11/03/2019 11:33 EDT Functional Mobility Mobility Grid Supine to Sit : Rehab Moderate assistance Sit to Stand : Rehab Minimal assistance (Comment: x2 [LAVERNE OLSON, PT - 11/03/2019 11:33 EDT] ) Stand to Sit : Rehab Minimal assistance (Comment: x2 [LAVERNE OLSON, PT - 11/03/2019 11:33 EDT] ) Sit to Supine : Rehab Moderate assistance LAVERNE OLSON, PT - 11/03/2019 11:33 EDT Sit to Stand Device : Belt, gait, Walker, front wheel Stand to Sit Device : Belt, gait, Walker, front wheel LAVERNE OLSON, PT - 11/03/2019 11:33 EDT Gait Training/Assessment, PT Gait Assistance Level : Assist, minimal Walking Distance : ~70ft with RWx Broderick x2 for safety/balance, posture per noted pt with mild kyphosis during gait Ambulatory Devices : Gait belt, Walker, front wheel LAVERNE OLSON, PT - 11/03/2019 11:33 EDT Cognition Assessment, PT Orientation : Oriented x 4 Attention Assessment : Present LAVERNE OLSON, PT - 11/03/2019 11:33 EDT Edu Topics Physical Therapy Education Grid Bed Mobility Training : Verbalizes understanding, Returns demonstration, Needs reinforcement Gait Training : Verbalizes understanding, Returns demonstration, Needs reinforcement Transfer Training : Verbalizes understanding, Returns demonstration, Needs reinforcement LAVERNE OLSON, PT - 11/03/2019 11:33 EDT Indication Assesessment, PT Physical Therapy Indicated : Yes PT Problem List : Impaired, endurance tolerance, Impaired, gait, Impaired, strength, Impaired, transfers LAVERNE OLSON, PT - 11/03/2019 11:33 EDT Plan of Care, PT PT Tx Plan/Goals Established w Patient : Yes PT Frequency Rehab : Five days per week PT Duration Rehab : Fourteen days PT Treatments Planned : Gait training, Therapeutic exercises, Transfer training LAVERNE OLSON, PT - 11/03/2019 11:33 EDT Equipment Operator Goals Mobility/Bed Mobility LTG PT Grid Goal #1 Goal #2 Activity : Supine to sit Sit to stand Assist : Independent, modified Independent, modified Date to Meet : 11/17/2019 EDT 11/17/2019 EDT Goal Status : Intial Goal Intial Goal Comment : via logroll LAVERNE OLSON, PT - 11/03/2019 11:33 EDT LAVERNE OLSON, PT - 11/03/2019 11:33 EDT Ambulation LTG Grid Goal #1 Device : Walker, front wheel Distance : 200ft Assist : Independent, modified Date to Meet : 11/17/2019 EDT Goal Status : Intial Goal LAVERNE OLSON, PT - 11/03/2019 11:33 EDT Treatment Note Subjective Comment : pt agreed to PTx eval Patient's Response to Treatment : Stable Assessment : pt with weakness, limited endurance, and c/o back pain; pt displays most difficulty with bed mobility and transfers OOB needing cues for body mechanics and logroll sequencing technique but once pt in stance, pt stating improved pain symptoms ambulating ~70ft with RWx Broderick x2 Plan for Treatment : cont PTx POC with anticipated thoracic fusion 11/04 per chart review LAVERNE OLSON PT - 11/03/2019 11:33 EDT Pain Assessment Pain Scaled Used : 0-10 Pain scale Pain Score Pre-Intervention : 5 Pain Score Post-Intervention. : 6 Location : Back Pain Intervention, Drug : Other: RN notified LAVERNE OLSON PT - 11/03/2019 11:33 EDT Image 1 - Images currently included in the form version of this document have not been included in the text rendition version of the form. Anticipated Discharge Needs, OT/PT Anticipated Discharge to : Other: will cont to assess awaiting surgical intervention Recommend Continued Therapy at Discharge : Yes LAVERNE OLSON PT - 11/03/2019 11:[address] PT Charges PT Ther Activities Ea 15 Min : 1 PT Eval Moderate Complexity : 1 LAVERNE OLSON PT - 11/03/2019 11:33 EDT documented in this encounter Plan of Treatment Not on file documented as of this encounter Visit Diagnoses Not on filedocumented in this encounter
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
--- OUTSIDE RECORDS SUMMARY | 2025-01-27 13:08 | XMS_ITS | Encounter Summary ---
Author Organization [employer] ([place], [place], [place], [place]) Address [address] [place] [address] Care Team Providers Care Structural Mill Supervisor Name Role Phone Unavailable Primary Care Provider Unavailabl e Encounter Details Date Type Department Care Team (Late st Contact Info) Description 11/02/2019 Transcribed Document [facility] [place] [facility] [place] [address] ProviderAgnieszka MD [address], [place] [id number] Social History Tobacco Use Types Packs/Day Years Used Date Smoking Tobacco: Never Assessed Sex and Gender Information Value Date Recorded Sex Assigned at Not on file Legal Sex Male 2:38 PM CDT Gender Identity Not on file Sexual Orientation Not on file documented as of this encounter Miscellaneous Notes * Cerner Conversion Note - Agnieszka ProviderMD - 11/02/2019 1:06 AM CDT Patient: SIMBA MAYEN JR Age: 69 years Sex: Male : 1950 Associated Diagnoses: Osteomyelitis; Back pain Author: RYAN SALGADO MD Basic Information History source: Patient. Arrival mode: Private vehicle. History limitation: None. Additional information: Chief Complaint from Nursing Triage Note : Chief Complaint 11/02/2019 0:47 EDT Chief Complaint presents w/ lower and upper back spasms x 3-4 days . History of Present Illness This is a 69-year-old male with a past medical history significant for Parkinson's, degenerative joint disease, spinal stenosis who presents to the emergency department for back pain of several weeks' duration. He states that he had been doing [...] is swelling on the right side of her mid back. No midline tenderness. No abdominal pain. It is worse with movement. He has tried muscle relaxers of unknown name, Motrin with no persistent relief of symptoms. He complains of pain along the right [...] pad yesterday with no relief of symptoms. Review of Systems Additional review of systems information: 10 point review of systems reviewed and negative except as stated in history of present illness . Health Status Allergies: Allergic Reactions (Selected) No Known Medication Allergies. Medications: (Selected) Inpatient Medications Ordered vancomycin + Sodium Chloride 0.9% intravenous solution 250 mL: 1,000 mg, 250 mL/Hr, IV Piggyback, 1-Time Prescriptions Prescribed Percocet 7.5/325 oral tablet: 1 Tab, Oral, Q6H, PRN: for pain, 50 Tab, 0 Refill(s) Documented Medications Documented Azilect 1 mg oral tablet: 1 Tab, Oral, Daily, 30 Tab, 0 Refill(s) Imuran: L1Nthmr, every 8 weeks at hospital last dose 11/29/2018, 0 Refill(s) Mirapex ER 4.5 mg oral tablet, extended release: Tab, Oral, Daily, 0 Refill(s) carbidopa-levodopa 25 mg-100 mg oral tablet: 1 Tab, Oral, QID, 120 Tab, 0 Refill(s) omeprazole 20 mg oral delayed release capsule: 1 Cap, Oral, Daily, before a meal, 30 Cap, 0 Refill(s), per nurse's notes. Immunizations: Per nurse's notes. Past Medical/ Family/ Social History Medical history Reviewed as documented in chart. Surgical history: Reviewed as documented in chart. Family history: Reviewed as documented in chart. Social history: Reviewed as documented in chart. Problem list: Active Problems (6) Arthritis Colitis DJD (degenerative joint disease) of thoracic spine History of obstructive sleep apnea Parkinson disease Scoliosis , per nurse's notes. Physical Examination Vital Signs Vital Signs/Vital Measures 11/02/2019 2:52 EDT Systolic [...] 99 % Oxygen Therapy Mode Room air . Per nurse's notes. General: Alert, no acute distress. Skin: Warm, dry. Head: Normocephalic. Neck: Supple. Ears, nose, mouth and throat: Oral mucosa moist. Cardiovascular: Regular rate and rhythm, No murmur. Respiratory: Lungs are clear to auscultation, respirations are non-labored, breath sounds are equal. Gastrointestinal: Soft, Nontender, Non distended, No pulsatile mass. Back: Costovertebral angle tenderness: Increased muscle tone right mid thoracic region in the paraspinal musculature. No midline tenderness. No CVA tenderness. Musculoskeletal: BLE: Sensation grossly intact distally with warm, well-perfused distal extremities. 5/5 ankle dorsiflexion and plantar flexion, EHL/FHL.. Neurological: Normal speech observed, normal coordination observed, Alert, oriented x3.. Psychiatric: Cooperative. Medical Decision Making Differential Diagnosis: Back pain, abdominal aortic aneurysm, degenerative joint disease, degenerative disc disease, disc herniation, spinal stenosis, chronic back pain, thoracic strain, vertebral fracture, osteoporosis, compression fracture. Documents reviewed: Emergency department nurses' notes, prior records. Results review: Lab results : Lab Results 11/02/2019 1:51 EDT Sodium Level 137 mmol/L Potassium Level 4.5 mmol/L Chloride Level 106 mmol/L Carbon Dioxide Level 23 mmol/L Anion Gap 12 Glucose Level 100 mg/dL Blood Urea Nitrogen 19 mg/dL CREATININE 1.00 mg/dL eGFR >60 mL/min/1.73m2 eGFR NonAfrican >60 mL/min/1.73m2 Bun/Creatinine 19.0 Calcium Level 8.9 mg/dL WBC 8.7 K/uL RBC 5.08 Million/uL Hgb 13.5 g/dL Hct 43.0 % MCV 84.6 fL MCH 26.6 pg MCHC 31.4 Gram/dL LOW Platelet Count 283 K/uL MPV 10.5 fL RDW 14.3 % Neut % 58.9 % Neut # 5.12 K/uL Lymph % 26.3 % Lymph # 2.29 x10(3)/uL Elmore % 13.9 % HI Elmore # 1.21 K/uL HI Eos % 0.1 % Eos # 0.01 x10(3)/uL Baso % 0.5 % Baso # 0.04 x10(3)/uL Slide Review No IG# 0.03 x10(3)/uL IG% 0.30 % . Radiology results: Posterior fusion of T10-S1. Destruction of the [...] hiatal hernia containing majority of the stomach.. Notes: Patient here with back pain, mostly tender in the paraspinal musculature. He has no fever and no significant leukocytosis that would suggest infectious process. However, CT scan of the thoracic and lumbar spine shows concern for possible osteomyelitis or discitis. I discussed this case with Dr. Benitez, engineer/conductor for neurosurgery, and he suggested that this might also be related to a fracture. Patient's symptoms did start acutely while attempting to do crunches. He has not reported any feelings of illness over the last 2 weeks as well. No history of IV drug abuse. Patient covered empirically with vancomycin and Zosyn. I discussed this case with Dr. Sagastume, hospitalist engineer/conductor and patient will be admitted for further management.. Impression and Plan Diagnosis Osteomyelitis - Discharge, Medical Back pain - Discharge, Medical Plan Condition: Stable. Disposition: Admit Admit/Transfer/Discharge: Admit to Inpatient (Order): Start: 11/02/2019 2:59 EDT, Admit reason: osteomyelitis, back pain, Estimated length of stay 2 Midnights or LONGER, Level of Care: Med-Surg, Admitting: LORENA SAGASTUME MD-INT. Counseled: Patient, Regarding diagnosis, Regarding diagnostic results, Regarding treatment plan, Patient indicated understanding of instructions. documented in this encounter Plan of Treatment Not on file documented as of this encounter Visit Diagnoses Not on filedocumented in this encounter
--- OUTSIDE RECORDS SUMMARY | 2025-01-27 13:08 | XMS_ITS | Encounter Summary ---
Author Organization [employer] ([place], [place], [place], [place]) Address [address] [place] [address] Care Team Providers Care Buyer Renter Name Role Phone Unavailable Primary Care Provider Unavailabl e Encounter Details Date Type Department Care Team (Late st Contact Info) Description 11/10/2019 Transcribed Document [facility] [place] Medicine [address] [place] [address] ProviderAgnieszka MD [address] [place], [place] [id number] Social History Tobacco Use Types Packs/Day Years Used Date Smoking Tobacco: Never Assessed Sex and Gender Information Value Date Recorded Sex Assigned at Not on file Legal Sex Male 2:38 PM CDT Gender Identity Not on file Sexual Orientation Not on file documented as of this encounter Miscellaneous Notes * Cerner Conversion Note - Historical ProviderMD - 11/10/2019 2:00 AM CDT Day Trader Details Entered On: 11/10/2019 4:25 EDT Performed On: 11/10/2019 2:00 EDT by Ciara Mccoy RN Order Details Transport Mode Order Detail : Stretcher/Gurney Isolation Precautions Order Detail : Standard Precautions Order Detail : N/A Lift/Transfer : Independent Central Line Order Detail : Yes Room Service : Not Appropriate Arterial Line : No Ciara Mccoy RN - 11/10/2019 4:25 EDT Electronically signed by Gay Centeno Conversion [facility] Director Cerner at 11/12/2022 9:34 PM CDT documented in this encounter Plan of Treatment Not on file documented as of this encounter Visit Diagnoses Not on filedocumented in this encounter
--- OUTSIDE RECORDS SUMMARY | 2025-01-27 13:08 | XMS_ITS | Encounter Summary ---
Author Organization [employer] ([place], [place], [place], [place]) Address [address] [place] [address] Care Team Providers Care Counter Manager Name Role Phone Unavailable Primary Care Provider Unavailabl e Encounter Details Date Type Department Care Team (Late st Contact Info) Description 11/09/2019 Transcribed Document [facility] [place] Family Medicine [facility] [place] [address] ProviderAgnieszka MD [address], [place] [phone] Social History Tobacco Use Types Packs/Day Years Used Date Smoking Tobacco: Never Assessed Sex and Gender Information Value Date Recorded Sex Assigned at Not on file Legal Sex Male 2:38 PM CDT Gender Identity Not on file Sexual Orientation Not on file documented as of this encounter Miscellaneous Notes * Cerner Conversion Note - Historical ProviderMD - 11/09/2019 6:00 AM CDT Pain Assessment Entered On: 11/09/2019 11:12 EDT Performed On: 11/09/2019 8:07 EDT by Teresa Bucio RN Intervention Information: acetaminophen(Pending Validation) Performed by Radha Josue Care [facility] on 11/09/2019 07:07:00 EDT acetaminophen,650mg Oral Pain Assessment Pain Assessment : Initial assessment Pain Scale Goal : 2 Pain Scale Used : 0-10 Scale Teresa Bucio RN - 11/09/2019 11:12 EDT Pain Scale Intensity : 3 Teresa Bucio RN - 11/09/2019 11:12 EDT Image 4 - Images currently included in the form version of this document have not been included in the text rendition version of the form. documented in this encounter Plan of Treatment Not on file documented as of this encounter Visit Diagnoses Not on filedocumented in this encounter
--- OUTSIDE RECORDS SUMMARY | 2025-01-27 13:09 | XMS_ITS | Encounter Summary ---
Author Organization [employer] ([place], [place], [place], [place]) Address [address] [place] [address] Care Team Providers Care White Kid Buffer Name Role Phone Unavailable Primary Care Provider Unavailabl e Encounter Details Date Type Department Care Team (Late st Contact Info) Description 11/03/2019 Transcribed Document [facility] [place] Former[facility] [place] [address] ProviderAgnieszka MD [address] [place], [place] [id number] Social History Tobacco Use Types Packs/Day Years Used Date Smoking Tobacco: Never Assessed Sex and Gender Information Value Date Recorded Sex Assigned at Not on file Legal Sex Male 2:38 PM CDT Gender Identity Not on file Sexual Orientation Not on file documented as of this encounter Miscellaneous Notes * Cerner Conversion Note - Agnieszka ProviderMD - 11/03/2019 2:32 PM CDT On Going Discharge Planning Entered On: 11/03/2019 14:33 EDT Performed On: 11/03/2019 14:32 EDT by ELKE VELÁZQUEZ, Ball Machine Operator-Transformer Repairer Care Management Progress Note Discharge Arrangements : [...] Discharge Unresolved : Clinical Condition of Patient Designation of Choice Signed : No Patient Offered Choice/Affiliations Explained : No Were Referrals Sent to Post Acute Providers : No Is the Patient Meeting Medical Necessity : Yes Did you Attend Multidisciplinary Rounds? : No ELKE VELÁZQUEZ, Ball Machine Operator-Transformer Repairer - 11/03/2019 14:32 EDT Narrative Progress Note Narrative Progress Note : Patient is scheduled for an MRI on and surgery on Friday. He reported wanting to go to [facility]. Cm sent referral packet to [facility]. ELKE VELÁZQUEZ Ball Machine Operator-Transformer Repairer - 11/03/2019 14:32 EDT documented in this encounter Plan of Treatment Not on file documented as of this encounter Visit Diagnoses Not on filedocumented in this encounter
--- OUTSIDE RECORDS SUMMARY | 2025-01-27 13:09 | XMS_ITS | Encounter Summary ---
Author Organization [employer] ([place], [place], [place], [place]) Address [address] [place] [address] Care Team Providers Care Deck Engineer Name Role Phone Unavailable Primary Care Provider Unavailabl e Encounter Details Date Type Department Care Team (Late st Contact Info) Description 11/02/2019 Transcribed Document [facility] [place] [facility] [place] [address] ProviderAgnieszka MD [address] [place], [place] [phone] Social History Tobacco Use Types Packs/Day Years Used Date Smoking Tobacco: Never Assessed Sex and Gender Information Value Date Recorded Sex Assigned at Not on file Legal Sex Male 2:38 PM CDT Gender Identity Not on file Sexual Orientation Not on file documented as of this encounter Miscellaneous Notes * Cerner Conversion Note - Agnieszka ProviderMD - 11/02/2019 3:16 AM CDT Admission History, Adult Entered On: 11/02/2019 3:41 EDT Performed On: 11/02/2019 3:16 EDT by Joyce Melendez RN Advance Directive Patient has Advance Directive *Q : No, patient requests information about Advance Directive Joyce Melendez RN - 11/02/2019 3:36 EDT Anesthesia/Transfusion History Family History of Anesthesia Reaction : Prior transfusion without reaction Transfusion History : Prior anesthesia without reaction Family History of Anesthesia Reaction : None Joyce Melendez RN - 11/02/2019 3:36 EDT Functional Assessment Living Situation : Home SORIANO Hx Falls Immediate/Within 3 Months : No Current Home Treatments : None Joyce Melendez RN - 11/02/2019 3:36 EDT General Info Support Person/Pt Rep Name : Marlys Cuevas Contact Password : DUANE CHUNMY - 11/03/2019 14:15 EDT Mode of Arrival on Unit : Wheelchair Legal Guardian : Unaccompanied Want Family/Rep/Phys Notified of Admit : No Emergency Contact #1 : Marlys Joyce Delcid RN - 11/02/2019 3:36 EDT Emergency Contact #1 - jacqui, guy. DUANE CHUN RN - 11/03/2019 15:46 EDT Emergency Contact #1 Relationship : Emergency Contact #2 : Lexii Cuevas Emergency Contact #2 Phone Number : [phone] Emergency Contact #2 Relationship : Mother Chief Complaint : presents w/ lower and upper back spasms x 3-4 days Information Obtained From : Patient Primary Language : Ken[place] Communication Barrier : None Joyce Melendez RN - 11/02/2019 3:36 EDT Fall Risk Scales ABCs Fall Injury Risk Identification : Bones ABC Fall Injury Risk : Moderate to high injury risk SORIANO Hx Falls Immediate/Within 3 Months : No Soriano Secondary Diagnosis : No SORIANO Use of Ambulatory Aid : Bed rest/Nurse assist SORIANO IV Therapy or IV Access : Yes Soriano Gait/Transferring : Weak Soriano Mental Status : Oriented to own ability Soriano Fall Risk Score : 30 SORIANO Fall Scale Risk Level : 25-45 Medium Risk [place] Fall Interventions : Adequate lighting, Assistive devices within reach, Bed in low position, Call device within reach, Hourly comfort/safety rounds, Non-slip footwear, Personal items within reach, Reinforced to call for assistance before getting out of bed, Room free of clutter/spills, Upper side-rails up, Wheels locked, Wires/Cords secured Joyce Melendez RN - 11/02/2019 3:36 EDT Health Histories Smoking Status : Never (less than 100 in lifetime; none in last 30 days) Smokeless Tobacco Status : Never Joyce Melendez RN - 11/02/2019 3:36 EDT Social History (As Of: 11/02/2019 03:41:09 EDT) Tobacco: Never (less than 100 in lifetime) Smoking Status. Never Smokeless Tobacco Status. (Last Updated: 12/16/2018 11:32:50 EDT by MILTON GAMEZ RN) Alcohol: Alcohol Use History No. Use in Last 12 Months: No. (Last Updated: 12/16/2018 11:33:00 EDT by MILTON GAMEZ RN) Substance Abuse: Drug Use Hx: No. Use in Last 12 Months: No. (Last Updated: 12/16/2018 11:33:06 EDT by MILTON GAMEZ RN) Height and Weight, Clinical Dosing Height Source : Stated Height Entry Format : [place] Height, Feet : 5 ft(Converted to: 152 cm, 60 Inch) Height, Inches : 9 Inch(Converted to: 0 ft 9 Inch, 22.86 cm) Clinical Height : 175.26 cm Weight Source : Standing scale Weight Entry Format : [place] Clinical Dosing Weight : 81.08 kg Weight, Pounds : 178 lb Weight, Ounces : 6 oz Body Surface Area (BSA) : 1.97 m2 Body Mass Index : 26.4 kg/m2 (HI) [place] Body Weight : 70 kg Joyce Melendez RN - 11/02/2019 3:36 EDT Infectious Disease History COVID19 Screening : No Experiencing Infectious Disease Symptoms : No symptoms Physical contact outside [place] in the last 30 days : No Infectious Disease History : Chicken pox/Shingles, Measles, Mumps Tuberculosis Symptoms : None Joyce Melendez RN - 11/02/2019 3:36 EDT Influenza Vaccine Asmt, Adult Previous Vaccines from Immunization Schedule : No qualifying data available. Influenza Immunization, Current Season : Yes Joyce Melendez RN - 11/02/2019 3:36 EDT Pneumococcal Vaccine Previous Vaccines from Immunization Schedule : No qualifying data available. Pneumonia Immunization Received : Yes Joyce Melendez RN - 11/02/2019 3:36 EDT Nutrition History Eating Poorly Due to Decreased Appetite : No Unplanned Weight Loss in Past 3-6 Months : No Malnutrition Screening Tool Total(mal) : 0 Malnutrition Screening Tool Risk Level : Patient not at risk Joyce Melendez RN - 11/02/2019 3:36 EDT [place] Suicide Severity Rating Scale (C-SSRS) CSSRS Past Month Wish to be : No CSSRS Past Month Suicidal Thoughts : No CSSRS Lifetime Suicide Behavior : No Suicide Severity Rating Score : 0 Suicide Severity Rating : No Additional Care Required at this time Joyce Melendez RN - 11/02/2019 3:36 EDT Psychosocial History Do You Have a History of the Following? : Patient denies history Currently in Unsafe Situation : No Joyce Melendez RN - 11/02/2019 3:36 EDT Sleep Apnea Risk Assmt BiPAP/CPAP Ordered for Home Use : Yes Hx of Obstructive Sleep Apnea Diagnosis : Yes BiPAP/CPAP Used at Home : Yes Age over 50 Years Old : Yes Gender Male : Yes Joyce Melendez RN - 11/02/2019 3:36 EDT Valuables and Belongings Valuables and Belongings : Clothing, Personal devices, Personal items, No medications Clothing : Common streetwear Clothing Disposition : With patient Personal Device Disposition : Bedside Personal Devices : Glasses Personal Items : Cell phone Personal Items Disposition : Bedside Joyce Melendez RN - 11/02/2019 3:36 EDT documented in this encounter Plan of Treatment Not on file documented as of this encounter Visit Diagnoses Not on filedocumented in this encounter
--- OUTSIDE RECORDS SUMMARY | 2025-01-27 13:09 | XMS_ITS | Encounter Summary ---
Author Organization [employer] ([place], [place], [place], [place]) Address [address] [place] [address] Care Team Providers Care Supervisor Instant Potato Processing Name Role Phone Unavailable Primary Care Provider Unavailabl e Encounter Details Date Type Department Care Team (Late st Contact Info) Description 12/22/2018 Transcribed Document [facility] [place] [facility] [place] [address] ProviderAgnieszka MD [address] [place], [place] [phone] Social History Tobacco Use Types Packs/Day Years Used Date Smoking Tobacco: Never Assessed Sex and Gender Information Value Date Recorded Sex Assigned at Not on file Legal Sex Male 2:38 PM CDT Gender Identity Not on file Sexual Orientation Not on file documented as of this encounter Miscellaneous Notes * Cerner Conversion Note - Agnieszka ProviderMD - 12/22/2018 6:36 AM CDT Admission History, Adult Entered On: 12/22/2018 20:48 EDT Performed On: 12/22/2018 6:36 EDT by Melissa Alexander RN Advance Directive Patient has Advance Directive *Q : No, patient refuses Advance Directive information Melissa Alexander RN - 12/22/2018 20:45 EDT Anesthesia/Transfusion History Family History of Anesthesia Reaction : Prior transfusion without reaction Blood Transfusion Acceptable to Patient : Yes Transfusion History : Prior anesthesia without reaction Family History of Anesthesia Reaction : None Melissa Alexander RN - 12/22/2018 20:45 EDT Functional Assessment Living Situation : Home Patient Lives With : Spouse Current Home Treatments : None Melissa Alexander RN - 12/22/2018 20:45 EDT General Info Arrived From : Home Mode of Arrival on Unit : Ambulatory Want Family/Rep/Phys Notified of Admit : No Emergency Contact #1 : coleen Emergency Contact #1 Emergency Contact #1 Relationship : spouse Emergency Contact #2 : , Emergency Contact #2 Phone Number : , Emergency Contact #2 Relationship : , Primary Language : Divehi Communication Barrier : None Melissa Alexander RN - 12/22/2018 20:45 EDT Fall Risk Scales ABCs Fall Injury Risk Identification : Surgery ABC Fall Injury Risk : Moderate to high injury risk SORIANO Hx Falls Immediate/Within 3 Months : No Soriano Secondary Diagnosis : Yes SORIANO Use of Ambulatory Aid : Bed rest/Nurse assist SORIANO IV Therapy or IV Access : Yes Soriano Gait/Transferring : Normal, bedrest, immobile Soriano Mental Status : Oriented to own ability [place] Fall Risk Score : 35 SORIANO Fall Scale Risk Level : 25-45 Medium Risk [place] Fall Interventions : Adequate lighting, Assistive devices within reach, Bed in low position, Call device within reach, Fall prevention handout/education per facility policy, Frequent orientation to call device, Frequent orientation to surroundings, Hourly comfort/safety rounds, Non-slip footwear, Personal items within reach, Reinforced to call for assistance before getting out of bed, Room free of clutter/spills, Upper side-rails up, Wheels locked, Wires/Cords secured Fall Moderate to High Risk Interventions : Fall contract/letter per facility policy, High Risk for Fall sign in place per policy, Patient room close to nurses station, Supervise toileting as indicated, Transport methods appropriate to patient Fall Risk Scale Calc Temp : 0 Melissa Alexander RN - 12/22/2018 20:45 EDT Health Histories Smoking Status : Never (less than 100 in lifetime; none in last 30 days) Smokeless Tobacco Status : Never Melissa Alexander RN - 12/22/2018 20:45 EDT Social History (As Of: 12/22/2018 20:48:07 EDT) Tobacco: Never (less than 100 in lifetime) Smoking Status. Never Smokeless Tobacco Status. (Last Updated: 12/16/2018 11:32:50 EDT by MILTON GAMEZ, MY) Alcohol: Alcohol Use History No. Use in Last 12 Months: No. (Last Updated: 12/16/2018 11:33:00 EDT by MILTON GAMEZ, RN) Substance Abuse: Drug Use Hx: No. Use in Last 12 Months: No. (Last Updated: 12/16/2018 11:33:06 EDT by MILTON GAMEZ RN) Height and Weight, Clinical Dosing Height Source : Measured Height Entry Format : [place] Height, Feet : 5 ft(Converted to: 152 cm, 60 Inch) Height, Inches : 9 Inch(Converted to: 0 ft 9 Inch, 22.86 cm) Clinical Height : 175.26 cm Weight Source : Standing scale Weight Entry Format : [place] Clinical Dosing Weight : 84.55 kg Weight, Pounds : 186 lb Body Surface Area (BSA) : 2 m2 Body Mass Index : 27.5 kg/m2 (HI) [place] Body Weight : 70 kg Melissa Alexander RN - 12/22/2018 20:45 EDT Infectious Disease History Infectious Disease History : Chicken pox/Shingles, Measles, Mumps Fever/Chills Last 48 Hours : No Travel To Regions with Travel Advisories : No Travel Outside [place] Within Last 30 Days : No Contact With Traveler to Advisory Region : No Tuberculosis Symptoms : None Melissa Alexander RN - 12/22/2018 20:45 EDT Influenza Vaccine Asmt, Adult Previous Vaccines from Immunization Schedule : No qualifying data available. Influenza Immunization, Current Season : Yes Melissa Alexander RN - 12/22/2018 20:45 EDT Pneumococcal Vaccine Previous Vaccines from Immunization Schedule : No qualifying data available. Pneumonia Immunization Received : No Pneumococcal Risk Assessment < Age 65 : N/A- Patient 65 years of age or older Pneumococcal Vaccine Contraindications : No contraindications to pneumococcal vaccine Transplant Workup/Recent Transplant : No Order for Pneumococcal Vaccine : Declined Vaccination Melissa Alexander RN - 12/22/2018 20:45 EDT Nutrition History Eating Poorly Due to Decreased Appetite : No Unplanned Weight Loss in Past 3-6 Months : No Malnutrition Screening Tool Total(mal) : 0 Malnutrition Screening Tool Risk Level : Patient not at risk Melissa Alexander RN - 12/22/2018 20:45 EDT Psychosocial History Do You Have a History of the Following? : Patient denies history Currently in Unsafe Situation : No Tried to Harm Yourself in the Past? : No Thoughts of Harming/Killing Yourself : No Melissa Alexander RN - 12/22/2018 20:45 EDT Sleep Apnea Risk Assmt BiPAP/CPAP Ordered for Home Use : Yes Hx of Obstructive Sleep Apnea Diagnosis : Yes BiPAP/CPAP Used at Home : No Reason BiPAP/CPAP Not Used at Home : uses off and on- pulls off in the night Age over 50 Years Old : Yes Gender Male : Yes Melissa Alexander RN - 12/22/2018 20:45 EDT Valuables and Belongings Valuables and Belongings : No personal items Melissa Alexander RN - 12/22/2018 20:45 EDT documented in this encounter Plan of Treatment Not on file documented as of this encounter Visit Diagnoses Not on filedocumented in this encounter
--- OUTSIDE RECORDS SUMMARY | 2025-01-27 13:09 | XMS_ITS | Encounter Summary ---
Author Organization [employer] ([place], [place], [place], [place]) Address [address] [place] [address] Care Team Providers Care Throw Out Clerk Name Role Phone Unavailable Primary Care Provider Unavailabl e Encounter Details Date Type Department Care Team (Late st Contact Info) Description 11/04/2019 Transcribed Document [facility] [place] Formerly [facility] [address] ProviderAgnieszka MD [address] [place], [place] [phone] Social History Tobacco Use Types Packs/Day Years Used Date Smoking Tobacco: Never Assessed Sex and Gender Information Value Date Recorded Sex Assigned at Not on file Legal Sex Male 2:38 PM CDT Gender Identity Not on file Sexual Orientation Not on file documented as of this encounter Miscellaneous Notes * Cerner Conversion Note - Agnieszka ProviderMD - 11/04/2019 11:16 AM CDT Patient: SIMBA MAYEN JR Age: 69 Years Sex: Male : 1950 Subjective Date of Service: 11/04/2019 seen and examined tearful, lonely, in pain anxious for procedure tomorrow adjusting pain meds Vital Signs T: 36.4 ??C TMIN: 36.3 ??C TMAX: 36.9 ??C HR: 110(Monitored) RR: 18 BP: 153/102 SpO2: 97% Oxygen Settings (Last) Oxygen Therapy Mode: Room air (11/04/19 06:00:00) Intake & Output Totals Last 24 Hours (7a-7a) Input Total: 899.92 mL Output Total: 1050 mL Balance: -150.08 mL Physical Exam General: [Alert and oriented, well nourished, anxious, mild distress, tearful]. Neurologic: [Awake, alert, and oriented X3, CN II-XII intact]. Eye: [PERRL, EOMI, normal conjunctiva]. HENT: [Normocephalic, normal hearing, moist oral mucosa] Neck: [no JVD]. Lungs: [Clear to auscultation, non-labored respiration]. Heart: [Normal rate, regular rhythm, no murmur, or edema]. Abdomen: [Soft, non-tender, non-distended, normal bowel sounds]. Musculoskeletal: [no deformity]. Skin: [Skin is warm, dry and pink, no rashes]. Psychiatric: [Cooperative, appropriate mood and affect]. Assessment/Plan acute back pain in immunocompromised host -Discitis versus osteomyelitis per CT spine 1. Findings concerning for osteomyelitis/discitis at T9-T10. 2. Lucency surrounding the right pedicle screw at T10. Hardware complication/infection is a consideration. -mri T and L pending-->pt could not tolerate. Discussed w Dr. Akers--> ok to hold -Dr. Akers following -ESR 80, crp 2.4 -PAIN control -Blood culture x 2 -IV antibiotic -PT/OT consult when able RA -pt on on Remicade as outpt -immunocompromised host Right 10th rib consistent with osteomyelitis. -seen on preliminary CT read, discussed w Dr. Delgado, this is evident on CT findings in the general region of the T9/T10 area. -will clarify with Dr. Delgado -BC x 2 -vancomycin and Cefepime -ID consult -NSY consult--OR 11/04 Uncontrolled hypertension -Likely secondary to pain--still believe pain related -increased Norvasc, prn hydralazine -Patient not on blood pressure medication at home -prn hydralazine Large hiatal hernia containing majority of the stomach. -noted on CT spine -consider surgery consult--will recommend as outpt History of Parkinson disease -Continue home medication Constipation -bowel regimen, monitor DVT prophylaxis, heparin Gi ppx: lactobacillus full code Time spent is 25 mins. 11/03: OR tomorrow. BP continues to be an issue. Feel pain related but increasing anti-HTN. Very pleasant male. Please keep informed. He would like to face time with his if able to help him. VTE Prophylaxis - Medical Heparin 5,000 Units, SubCutaneous, Inj, Q8HInt, Routine, Start 11/02/19 4:00:00 EDT (KAREM, EMHEMMID) Medications Azilect, 1 mg= 1 Tab, Oral, Daily carbidopa-levodopa 25 mg-100 mg oral tablet, 1 Tab, Oral, QID cefepime + Sodium Chloride 0.9% intravenous solution 50 mL Colace, 100 mg= 1 Cap, Oral, BID DuoNeb 0.5 mg-2.5 mg/3 mL inhalation solution, 3 mL, Nebulized Inhalation , RT_Q6H, PRN heparin, 5000 Units= 1 mL, SubCutaneous, Q8HInt hydrALAZINE, 10 mg= 0.5 mL, IV Push, Q6H, PRN lactobacillus acidophilus, 1 Cap, Oral, Daily MiraLax, 17 Gram= 1 Packet, Oral, Daily, PRN morphine, 2 mg= 1 mL, IV Push, Q2H, PRN [place] 10 mg-325 mg oral tablet, 1 Tab, Oral, Q6H, PRN Norvasc, 10 mg= 1 Tab, Oral, Daily sodium chloride 0.9% injectable solution, 10 mL, IV Push, Q8H Sodium Chloride 0.9% intravenous solution 1,000 mL, 1000 mL, IntraVENous Valium, 5 mg= 1 mL, IV Push, Q6H, PRN vancomycin + Sodium Chloride 0.9% intravenous solution 250 mL Zofran, 4 mg= 2 mL, IV Push, Q4H, PRN Lab Results Test Name Test Result Date/Time Platelet Count 280 K/uL 11/04/2019 07:00 EDT Urine Type U CleanCatch 11/03/2019 14:00 EDT Urine Color YELLOW2 11/03/2019 14:00 EDT Urine Appearance CLEAR2 11/03/2019 14:00 EDT Urine Specific Morse 1.027 11/03/2019 14:00 EDT Urine pH Dipstick 6.0 11/03/2019 14:00 EDT Urine Leukocyte Esterase NEGATIVE2 11/03/2019 14:00 EDT Urine Nitrite NEGATIVE2 11/03/2019 14:00 EDT Urine Protein Dipstick NEGATIVE2 11/03/2019 14:00 EDT Urine Glucose Dipstick NEGATIVE2 11/03/2019 14:00 EDT Urine Ketones Dipstick TRACE2 (Abnormal) 11/03/2019 14:00 EDT Urine Urobilinogen Dipstick 1.0 (Abnormal) 11/03/2019 14:00 EDT Urine Bilirubin Dipstick NEGATIVE2 11/03/2019 14:00 EDT Urine Blood Dipstick NEGATIVE2 11/03/2019 14:00 EDT Vancomycin Trough 17.4 mcg/mL (High) 11/03/2019 20:19 EDT Electronically signed by Taryn, [facility] Conversion Sampler Radioactive Waste Cerner at 11/12/2022 9:31 PM CDT documented in this encounter Plan of Treatment Not on file documented as of this encounter Visit Diagnoses Not on filedocumented in this encounter
--- OUTSIDE RECORDS SUMMARY | 2025-01-27 13:09 | XMS_ITS | Encounter Summary ---
Author Organization [employer] ([place], [place], [place], [place]) Address [address] [place] [address] Care Team Providers Care Psychological Examiner Name Role Phone Unavailable Primary Care Provider Unavailabl e Encounter Details Date Type Department Care Team (Late st Contact Info) Description 11/05/2019 Transcribed Document [facility] [place] [address] [place] [address] ProviderAgnieszka MD [address], [place] [phone] Social History Tobacco Use Types Packs/Day Years Used Date Smoking Tobacco: Never Assessed Sex and Gender Information Value Date Recorded Sex Assigned at Not on file Legal Sex Male 2:38 PM CDT Gender Identity Not on file Sexual Orientation Not on file documented as of this encounter Miscellaneous Notes * Cerner Conversion Note - Historical ProviderMD - 11/05/2019 5:00 PM CDT Chart Check - Review Order Profile Entered On: 11/05/2019 17:13 EDT Performed On: 11/05/2019 17:00 EDT by Sally Azevedo LPN Chart Check All Active Orders Reviewed : Yes Sally Azevedo LPN - 11/05/2019 17:13 EDT documented in this encounter Plan of Treatment Not on file documented as of this encounter Visit Diagnoses Not on filedocumented in this encounter
--- OUTSIDE RECORDS SUMMARY | 2025-01-27 13:09 | XMS_ITS | Encounter Summary ---
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 Name Role Phone Unavailable Primary Care Provider Unavailabl e Encounter Details Date Type Department Care Team (Late st Contact Info) Description 11/07/2019 Transcribed Document [id number] Radiology [address] [place] [address] Carlo Evnas MD [address] [place], [place] [id number] Social History Tobacco Use Types Packs/Day Years Used Date Smoking Tobacco: Never Assessed Sex and Gender Information Value Date Recorded Sex Assigned at Not on file Legal Sex Male 2:38 PM CDT Gender Identity Not on file Sexual Orientation Not on file documented as of this encounter Miscellaneous Notes * Cerner Conversion Note - Carlo Evans MD - 11/07/2019 3:54 PM EDT Patient: SIMBA MAYEN JR Age: 69 Years Sex: Male : 1950 Subjective Patient seen and examined Date Of Service 11/07/2019. Patient with continued lower leg paralysis. He cannot feel or move his legs. Discussed with Dr. Kat who reports patient had some spontaneous fasciculations in thigh post-op yesterday. Intermittent tachycardia likely due to anxiety and osteomyelitis/bacteremia. HR of 23 not felt to be legit and error per nursing as HR was 101 ten minutes later per documentation. Oriented 09/27. called and discussed paralysis and positive blood culture today. Other than patient reporting inability to feel or move lower legs and having intermittent back pain at incision site he is a negative ROS. Patient denies having fever/chills, SOA, cough, sore throat, myalgias, chest pain, palpitations, n/v/d, abdominal pain, and dysuria. ID and NSY following. 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 Vital Signs T: 37.2 ??C TMIN: 36.6 ??C TMAX: 37.2 ??C HR: 96(Monitored) RR: 16 BP: 123/77 SpO2: 96% Oxygen Settings (Last) Oxygen Therapy Mode: Room air (11/06/19 15:15:00) Oxygen Flow Rate: 2 Liter/Min (11/06/19 14:45:00) Intake & Output Totals Last 24 Hours (7a-7a) Input Total: 1301.5 mL Output Total: 1525 mL Balance: -223.5 mL Physical Exam General: [Alert and oriented, well nourished, no acute distress]. Neurologic: [CN I-XII intact, Equal fur finisher strength bilaterally, no movement or feeling in lower legs bilaterally, Awake, alert, and oriented 3/3]. Eye: [Normal conjunctiva]. HENT: [Normocephalic, normal hearing, moist oral mucosa, no scleral icterus]. Neck: [Supple, no JVD]. Lungs: [Clear to auscultation, non-labored respiration]. Heart: [Normal rate, regular rhythm, no murmur, or edema]. Abdomen: [Soft, non-tender, non-distended, normal bowel sounds]. Musculoskeletal: [Patient able to move arms normally and equally, no movement or feeling in lower legs bilaterally]. Skin: [Skin is warm, dry and pink, no rashes]. Psychiatric: [Cooperative, low affect]. Assessment/Plan Acute back pain and lower leg paralysis in immunocompromised host --> T9/10 osteomyelitis and Gram Positive Bacteremia -Differential discitis/osteomyelitis with possible abscess after thoracic fusion extension on 11/04 so back to OR 11/05 for decompression -Discitis versus osteomyelitis per CT spine: Findings concerning for osteomyelitis/discitis at T9-T10. Lucency surrounding the right pedicle screw at T10. Hardware complication/infection is a consideration. -Initially patient couldn't tolerate MRI due to pain and not being able to lay flat -ESR 80, crp 2.4 to 8.5 -PAIN control PRN -Blood culture x 2: Prelim Gram Positive rods -PT/OT to eval/treat when able -ID following: Cefepime and Vanc, PICC ordered 11/04 in prep for senior living abx -Patient hemodynamically stable, afebrile though low grade temp of 99 and tachycardic -NSY following: thoracic fusion extension with airo navigation on 11/05/[address] Kat --> bilateral lower leg Paralysis on 11/05 with MRI sowing acute anterior compression at T9/10 --> back to OR 11/05 for T8 through T11 laminectomy for decompression of epidural abscess. Discussed with Dr. Kat 11/06, no steroid therapy indicated --> REPEAT STAT MRI ORDERED Rheumatoid Arthritis -On Remicade outpatient, holding due to acute infectious illness -Immunocompromised host noted -ID aware Right 10th rib consistent with osteomyelitis. -Seen on preliminary CT read, discussed w Dr. Delgado, this is evident on CT findings in the general region of the T9/T10 area. -BC x 2 NGTD -ID following: Cefepime and Vanc -S/p thoracic fusion extension with airo navigation on 11/05/[address] Kat. Hypertension, improved control -Likely secondary to pain--still believe pain related -Increased Norvasc 10 mg -Patient not on blood pressure medication at home -PRN hydralazine Large hiatal hernia containing majority of the stomach. -Noted on CT spine -Consider surgery consult -Recommend as outpatient follow-up Goiter -TSH and Free T4 normal -Thyroid US pending Anemia -Likely due to recent surgeries, no obvious signs of bleeding other than serous blood tinged fluid noted around spinal cord in surgery 11/05 -Hemodynamically stable, continue to monitor H&H E History of Parkinson disease -Continue home Sinemet -Complicates physical deconditioning and affect with current illness above Constipation -Bowel regimen, monitor DVT prophylaxis: SCD GI ppx: Lactobacillus Abx: Vanc and Cefepime FULL CODE, next of kin is Debra DISPO: TO OR for Thoracic fusion extension with airo navigation on 11/05/19 with acute paralysis on 11/05 and MRI showing possible abscess with anterior cord compression to back to OR 11/05 for decompression and continued paralysis. NSY Dr. Kat following and unsure if paralysis will improve. Dr. Kat called today. ID following, with prelim BCx positive for GPR which needs to be followed. PICC in place, needs director long term care abx recs prior to discharge. Thyroid US and repeat MRI pending. Monitor anemia and infectious markers. Awaiting PT/OT eval post-op, Bp improved. Will keep informed when available. Time spent: 30 minutes. Lexii Chan PA-C, personally evaluated the patient. Patient discussed with Dr. Evans who also evaluated the patient and agrees with the plan of care above. Patient discussed with Dr. Kat today as well. VTE Prophylaxis - Medical Heparin 5,000 Units, SubCutaneous, Inj, Q8H, Routine, Start 11/07/19 14:00:00 EDT (LEXII [place]) Sequential Compression Device Start: 11/05/19 14:49:00 EDT, Bilateral, Continuous Order (LEXII [place]) Sequential Compression Device Start: 11/05/19 11:19:00 EDT, Bilateral, Continuous Order (HEIDE KAT) Sequential Compression Device Start: 11/05/19 8:37:00 EDT, Bilateral, Continuous Order (LEXII [place]) Medications alteplase + sterile water 1 mL Azilect, 1 mg= 1 Tab, Oral, Daily bisacodyl, 10 mg= 1 Supp, Rectal, BID, PRN carbidopa-levodopa 25 mg-100 mg oral tablet, 1 Tab, Oral, QID cefepime + Sodium Chloride 0.9% intravenous solution 100 mL Dilaudid, 0.5 mg= 0.5 mL, IV Push, Q1H, PRN Dilaudid, 0.25 mg= 0.25 mL, IV Push, Q1H, PRN docusate sodium, 200 mg= 2 Cap, Oral, BID Dulcolax Laxative, 10 mg= 2 Tab, Oral, BID, PRN DuoNeb 0.5 mg-2.5 mg/3 mL inhalation solution, 3 mL, Nebulized Inhalation , RT_Q6H, PRN Fleet Enema, 133 mL, Rectal, Daily, PRN heparin, 5000 Units= 1 mL, SubCutaneous, Q8H hydrALAZINE, 10 mg= 0.5 mL, IV Push, Q6H, PRN Lactated Ringers Injection intravenous solution 1,000 mL, 1000 mL, IntraVENous lactobacillus acidophilus, 1 Cap, Oral, Daily MiraLax, 17 Gram= 1 Packet, Oral, Daily, PRN morphine, 2 mg= 1 mL, IV Push, Q2H, PRN Normal Saline Flush, 10 mL, IntraCATHeter, Q12H Norvasc, 10 mg= 1 Tab, Oral, Daily oxyCODONE, 5 mg= 1 Tab, Oral, Q4H, PRN oxyCODONE, 10 mg= 2 Tab, Oral, Q4H, PRN sodium chloride 0.9% injectable solution, 10 mL, IV Push, Q8H Tylenol, 650 mg= 2 Tab, Oral, Q4H Valium, 5 mg= 1 mL, IV Push, Q6H, PRN vancomycin + Sodium Chloride 0.9% intravenous solution 250 mL Zofran, 4 mg= 2 mL, IV Push, Q4H, PRN Diagnostic Results Radiology Results (Last 48 hours) [id number] -- 11/02/2019 02:59 MRI Spine Thoracic WO (11/06/2019 11:33) Result: MRI OF THE THORACIC SPINEHISTORY: Acute paralysis.PROCEDURE: MR images of the thoracic spine were performed in multiplesequences.FINDINGS: There is posterior screw/jim fixation at T6, T7, T8, T9, T11,T12, L1, L2. There is abnormal disc signal at the T9-10 level worrisomefor discitis/osteomyelitis. It is severely obscured by metallicartifact. Central canal compromise at this level is present. Anextradural mass anterior to the cord appears to be present at thislevel. There is an incompletely imaged mass along the left aspect of thetrachea.IMPRESSION: Severely limited exam due to metallic artifact.Discitis/osteomyelitis at the T9-10 level. There appears to be anextradural mass anterior to the cord at this level with resultant severecentral canal compromise. Differential considerations include hematoma,disc material, bone fragment, phlegmon, abscess. Canal compromise atthis level is present.Incompletely imaged mass along the left aspect of the trachea,presumably a goiter. Dedicated thyroid ultrasound is recommended.Acute findings were discussed with Dr. Kat at the time of thisdictation.Images reviewed, interpreted, and dictated by A. Geo Alyssa, MD Lab Results Test Name Test Result Date/Time Sodium Level 135 mmol/L (Low) 11/07/2019 05:58 EDT Potassium Level 4.1 mmol/L 11/07/2019 05:58 EDT Chloride Level 104 mmol/L 11/07/2019 05:58 EDT Carbon Dioxide Level 27 mmol/L 11/07/2019 05:58 EDT Anion Gap 8 (Low) 11/07/2019 05:58 EDT Glucose Level 98 mg/dL 11/07/2019 05:58 EDT Blood Urea Nitrogen 11 mg/dL 11/07/2019 05:58 EDT Creatinine Level 0.60 mg/dL (Low) 11/07/2019 05:58 EDT eGFR >60 mL/min/1.73m2 11/07/2019 05:58 EDT eGFR NonAfrican >60 mL/min/1.73m2 11/07/2019 05:58 EDT Bun/Creatinine 18.3 11/07/2019 05:58 EDT Calcium Level 7.8 mg/dL (Low) 11/07/2019 05:58 EDT Protein Total 5.8 Gram/dL (Low) 11/07/2019 05:58 EDT Albumin Level 1.7 Gram/dL (Low) 11/07/2019 05:58 EDT Globulin 4.1 Gram/dL 11/07/2019 05:58 EDT A/G Ratio 0.4 (Low) 11/07/2019 05:58 EDT Bilirubin Total 0.6 mg/dL 11/07/2019 05:58 EDT Alk Phos 89 Units/Liter 11/07/2019 05:58 EDT AST 15 Units/Liter 11/07/2019 05:58 EDT ALT 6 Units/Liter (Low) 11/07/2019 05:58 EDT WBC 7.2 K/uL 11/07/2019 04:00 EDT RBC 3.47 Million/uL (Low) 11/07/2019 04:00 EDT Hgb 9.4 g/dL (Low) 11/07/2019 04:00 EDT Hct 28.9 % (Low) 11/07/2019 04:00 EDT MCV 83.3 fL 11/07/2019 04:00 EDT MCH 27.1 pg 11/07/2019 04:00 EDT MCHC 32.5 Gram/dL 11/07/2019 04:00 EDT Platelet Count 184 K/uL 11/07/2019 04:00 EDT MPV 10.4 fL 11/07/2019 04:00 EDT RDW 14.3 % 11/07/2019 04:00 EDT Neut % 58.4 % 11/07/2019 04:00 EDT Neut # 4.22 K/uL 11/07/2019 04:00 EDT Lymph % 24.4 % 11/07/2019 04:00 EDT Lymph # 1.76 x10(3)/uL 11/07/2019 04:00 EDT [place] % 14.8 % (High) 11/07/2019 04:00 EDT [place] # 1.07 K/uL (High) 11/07/2019 04:00 EDT Eos % 1.1 % 11/07/2019 04:00 EDT Eos # 0.08 x10(3)/uL 11/07/2019 04:00 EDT Baso % 0.6 % 11/07/2019 04:00 EDT Baso # 0.04 x10(3)/uL 11/07/2019 04:00 EDT Slide Review No 11/07/2019 04:00 EDT IG# 0.05 x10(3)/uL 11/07/2019 04:00 EDT IG% 0.70 % (High) 11/07/2019 04:00 EDT documented in this encounter Plan of Treatment Not on file documented as of this encounter Visit Diagnoses Not on filedocumented in this encounter
--- OUTSIDE RECORDS SUMMARY | 2025-01-27 13:09 | XMS_ITS | Encounter Summary ---
Author Organization [employer] ([place], [place], [place], [place]) Address [address] [place] [address] Care Team Providers Care Vascular Nurse Name Role Phone Unavailable Primary Care Provider Unavailabl e Encounter Details Date Type Department Care Team (Late st Contact Info) Description 11/04/2019 Transcribed Document [facility] [place] [address] [place] [address] ProviderAgnieszka MD [address] [place], [place] [address] Social History Tobacco Use Types Packs/Day Years Used Date Smoking Tobacco: Never Assessed Sex and Gender Information Value Date Recorded Sex Assigned at Not on file Legal Sex Male 2:38 PM CDT Gender Identity Not on file Sexual Orientation Not on file documented as of this encounter Miscellaneous Notes * Cerner Conversion Note - Historical ProviderMD - 11/04/2019 2:00 AM CDT Hand Molder Meat Details Entered On: 11/04/2019 4:42 EDT Performed On: 11/04/2019 2:00 EDT by [facility] Order Details Transport Mode Order Detail : Stretcher/Gurney Isolation Precautions Order Detail : Standard Precautions Order Detail : N/A IV Order Detail : 1 Oxygen Order Detail : 0 Nurse Collect Order Detail : 0 Lift/Transfer : Independent Central Line Order Detail : No Room Service : Not Appropriate Arterial Line : No Radha [facility] - 11/04/2019 4:41 EDT documented in this encounter Plan of Treatment Not on file documented as of this encounter Visit Diagnoses Not on filedocumented in this encounter
--- OUTSIDE RECORDS SUMMARY | 2025-01-27 13:09 | XMS_ITS | Encounter Summary ---
Author Organization [employer] ([place], [place], [place], [place]) Address [address] [place] [address] Care Team Providers Care Destination Sign Repairer Name Role Phone Unavailable Primary Care Provider Unavailabl e Encounter Details Date Type Department Care Team (Late st Contact Info) Description 11/07/2019 Transcribed Document [facility] [place] [address] [place] [address] ProviderAgnieszka MD [address] [place], [place] [address] Social History Tobacco Use Types Packs/Day Years Used Date Smoking Tobacco: Never Assessed Sex and Gender Information Value Date Recorded Sex Assigned at Not on file Legal Sex Male 2:38 PM CDT Gender Identity Not on file Sexual Orientation Not on file documented as of this encounter Miscellaneous Notes * Cerner Conversion Note - Historical ProviderMD - 11/07/2019 6:00 AM CDT Pain Assessment Entered On: 11/07/2019 18:41 EDT Performed On: 11/07/2019 7:01 EDT by Zee Taylor RN Intervention Information: acetaminophen Performed by Geno Whipple RN on 11/07/2019 06:01:00 EDT acetaminophen,650mg Oral Pain Assessment Pain Assessment : Follow-up assessment Pain Scale Goal : 2 Pain Improved by Intervention : Yes Zee Taylor RN - 11/07/2019 18:41 EDT documented in this encounter Plan of Treatment Not on file documented as of this encounter Visit Diagnoses Not on filedocumented in this encounter
--- OUTSIDE RECORDS SUMMARY | 2025-01-27 13:09 | XMS_ITS | Encounter Summary ---
Author Organization [employer] ([place], [place], [place], [place]) Address [address] [place] [address] Care Team Providers Care Kitchen Cleaner Name Role Phone Unavailable Primary Care Provider Unavailabl e Encounter Details Date Type Department Care Team (Late st Contact Info) Description 11/02/2019 Transcribed Document [facility] [place] [address] [place] [address] ProviderAgnieszka MD [address] [place] [place], [place] [address] Social History Tobacco Use Types Packs/Day Years Used Date Smoking Tobacco: Never Assessed Sex and Gender Information Value Date Recorded Sex Assigned at Not on file Legal Sex Male 2:38 PM CDT Gender Identity Not on file Sexual Orientation Not on file documented as of this encounter Miscellaneous Notes * Cerner Conversion Note - Historical ProviderMD - 11/02/2019 3:00 PM CDT Pain Assessment Entered On: 11/02/2019 17:14 EDT Performed On: 11/02/2019 15:30 EDT by Zee Taylor RN Intervention Information: morphine Performed by Zee Taylor RN on 11/02/2019 15:00:00 EDT morphine,2mg IV Push,Peripheral Line 1 Pain Assessment Pain Scale Goal : 4 Pain Improved by Intervention : Yes Zee Taylor RN - 11/02/2019 17:14 EDT documented in this encounter Plan of Treatment Not on file documented as of this encounter Visit Diagnoses Not on filedocumented in this encounter
--- OUTSIDE RECORDS SUMMARY | 2025-01-27 13:09 | XMS_ITS | Encounter Summary ---
Author Organization [employer] ([place], [place], [place], [place]) Address [address] [place] [address] Care Team Providers Care Sifter And Miller Name Role Phone Unavailable Primary Care Provider Unavailabl e Encounter Details Date Type Department Care Team (Late st Contact Info) Description 11/07/2019 Transcribed Document [facility] [place] [address] [place] [address] ProviderAgnieszka MD [address] [place], [place] [id number] Social History Tobacco Use Types Packs/Day Years Used Date Smoking Tobacco: Never Assessed Sex and Gender Information Value Date Recorded Sex Assigned at Not on file Legal Sex Male 2:38 PM CDT Gender Identity Not on file Sexual Orientation Not on file documented as of this encounter Miscellaneous Notes * Cerner Conversion Note - Historical ProviderMD - 11/07/2019 2:00 AM CDT 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 Details Entered On: 11/07/2019 5:13 EDT Performed On: 11/07/2019 2:00 EDT by Geno Whipple RN Order Details Transport Mode Order Detail : Stretcher/Gurney Isolation Precautions Order Detail : Standard Precautions Order Detail : N/A IV Order Detail : 1 Oxygen Order Detail : 0 Nurse Collect Order Detail : 1 Lift/Transfer : Independent Central Line Order Detail : Yes Room Service : Not Appropriate Arterial Line : No Geno Whipple RN - 11/07/2019 5:12 EDT documented in this encounter Plan of Treatment Not on file documented as of this encounter Visit Diagnoses Not on filedocumented in this encounter
--- OUTSIDE RECORDS SUMMARY | 2025-01-27 13:09 | XMS_ITS | Encounter Summary ---
Author Organization [employer] ([place], [place], [place], [place]) Address [address] [place] [address] Care Team Providers Care Gold Miner Blasting Name Role Phone Unavailable Primary Care Provider Unavailabl e Encounter Details Date Type Department Care Team (Late st Contact Info) Description 11/03/2019 Transcribed Document [facility] [place] [facility] [place] [address] ProviderAgnieszka MD [address] [place], [place] [id number] Social History Tobacco Use Types Packs/Day Years Used Date Smoking Tobacco: Never Assessed Sex and Gender Information Value Date Recorded Sex Assigned at Not on file Legal Sex Male 2:38 PM CDT Gender Identity Not on file Sexual Orientation Not on file documented as of this encounter Miscellaneous Notes * Cerner Conversion Note - Agnieszka ProviderMD - 11/03/2019 9:19 AM CDT Patient: SIMBA MAYEN JR Age: 69 years Sex: Male : 1950 Associated Diagnoses: None Author: BROOKS GORE, [facility] 69yoM with Low Back Pain - R/O Osteo PMH: 12/13 PLIF T10-S1, Parkinson's, 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 11/04 planned revision of T9-T10 Rx Consult: Vancomycin MD: David Hernández Dx: Thoracic Osteo goal trough = 15-20 ID: Branden wt = 81kg I/O = 614 / 300 NKDA Atb: Vanco / Cefepime (Start 11/01) Labs (Last four charted values) WBC 6.5 (NOV 02) 8.7 (NOV 01) HB L 12.2 (NOV 02) 13.5 (NOV 01) HCT L 37.6 (NOV 02) 43.0 (NOV 01) Plt 291 (OCT 08) 283 (NOV 01) Na 139 (OCT 08) 137 (NOV 01) K 3.6 (NOV 02) 4.5 (NOV 01) Cl 109 (OCT 08) 106 (OCT 07) CO2 25 (OCT 08) 23 (NOV 01) BUN 15 (OCT 08) 19 (NOV 01) Cr 0.70 (NOV 02) 1.00 (NOV 01) Glu R 93 (NOV 02) 100 (NOV 01) Ca 8.8 (NOV 02) 8.9 (NOV 01) Lactic 1.3 (NOV 01) CRP 2.4 (H) (NOV 01) ESR 80 (H) (NOV 01) Calc CrCl = 69ml/min Vitals Signs (last 24 hrs) Last Charted Minimum Maximum Temp 97.7 (NOV 02:19) 97.7 (NOV 02:19) 98.6 (NOV 02 03:30) Apical HR 64 (NOV 02 03:54) 64 (NOV 02 03:54) 72 (NOV 01 11:09) Mon HR 92 (NOV 02 06:19) 86 (NOV 01 23:30) 92 (NOV 02 06:19) Resp Rate 18 (NOV 02 06:19) 16 (NOV 01 18:30) 18 (NOV 01 23:30) SBP H 159 (NOV 02 06:19) H 146 (NOV 01 18:30) H 192 (NOV 02 03:30) DBP H 97 (NOV 02 06:19) 90 (NOV 01 18:30) H 115 (NOV 02 03:30) MAP 118 (NOV 02 06:19) 106 (NOV 01 18:30) 145 (NOV 02 03:30) SpO2 97 (NOV 02 03:30) 96 (NOV 01 18:30) 98 (NOV 01 23:30) Cultures: 11/01 blood - 10/31 CT Lumbar / Thoracic - CT [...] containing majority of the stomach.. Plan: 1) Continue Vancomycin 1250mg (~15mg/kg) IV q12h 2) Order Vancomycin trough on 11/02 @ 20:00 -hold if > 22 3) Rx to follow -Planned surgical repair 11/04 with intraop cultures Thank You, Brooks Gore RPh documented in this encounter Plan of Treatment Not on file documented as of this encounter Visit Diagnoses Not on filedocumented in this encounter
--- OUTSIDE RECORDS SUMMARY | 2025-01-27 13:09 | XMS_ITS | Encounter Summary ---
Author Organization [employer] ([place], [place], [place], [place]) Address [address] [place] [address] Care Team Providers Care Occupational Health Professional Name Role Phone Unavailable Primary Care Provider Unavailabl e Encounter Details Date Type Department Care Team (Late st Contact Info) Description 11/02/2019 Transcribed Document [facility] [place] [facility] [place] [address] ProviderAgnieszka MD [address] [place], [place] [id number] Social History Tobacco Use Types Packs/Day Years Used Date Smoking Tobacco: Never Assessed Sex and Gender Information Value Date Recorded Sex Assigned at Not on file Legal Sex Male 2:38 PM CDT Gender Identity Not on file Sexual Orientation Not on file documented as of this encounter Miscellaneous Notes * Cerner Conversion Note - Agnieszka ProviderMD - 11/02/2019 12:31 AM CDT ED Triage Entered On: 11/02/2019 0:50 EDT Performed On: 11/02/2019 0:47 EDT by Danelle Maya RN ED Triage Across the Room Chief Complaint : presents w/ lower and upper back spasms x 3-4 days Triage Date/Time : 11/02/2019 0:47 EDT Danelle Maya RN - 11/02/2019 0:47 EDT DCP GENERIC CODE Tracking Acuity : 3 - Urgent Tracking Group : [facility] ED Danelle Maya RN - 11/02/2019 0:47 EDT Mode of Arrival : Wheelchair Transported to ED by : Private vehicle To Room Via : Wheelchair Accompanied By : Unaccompanied ED Vital Signs : Document Height & Weight : Document ED Allergies : Document ED Reason for Visit : Document Danelle Maya RN - 11/02/2019 0:47 EDT Infectious Disease History COVID19 Screening : No Experiencing Infectious Disease Symptoms : No symptoms Physical contact outside [place] in the last 30 days : No Infectious Disease History : Chicken pox/Shingles, Measles, Mumps Tuberculosis Symptoms : None Danelle Maya RN - 11/02/2019 0:47 EDT Vital Signs ED Temperature Source : Oral Temperature Mode : Fahrenheit Temperature, Fahrenheit : 98.6 Deg F Clinical Temperature, C : 37 Deg C Oxygen Therapy Mode : Room air Peripheral Pulse Rate : 110 bpm (HI) Respiratory Rate : 20 Breaths/Min Blood Pressure Location : Arm, left upper Blood Pressure Source : Non-Invasive BP Device Systolic Blood Pressure : 178 mmHg (HI) Diastolic Blood Pressure : 107 mmHg (HI) Oxygen Saturation : 99 % Danelle Maya RN - 11/02/2019 0:47 EDT Allergy (As Of: 11/02/2019 00:50:04 EDT) Allergies (Active) No Known Medication Allergies Estimated Onset Date: Unspecified ; Created By: MILTON GAMEZ RN; Reaction Status: Active ; Category: Drug ; Substance: No Known Medication Allergies ; Type: Allergy ; Updated By: MILTON GAMEZ RN; Reviewed Date: 11/02/2019 0:49 EDT Diagnosis Control ED (As Of: 11/02/2019 00:50:04 EDT) Problems(Active) Arthritis (SNOMED CT :6031007 ) Name of Problem: Arthritis ; Recorder: MILTON GAMEZ RN; Confirmation: Confirmed ; Classification: Medical ; Code: [id number] ; Contributor System: Extreme DA ; Last Updated: 12/16/2018 11:30 EDT ; Life Cycle Date: 12/16/2018 ; Life Cycle Status: Active ; Vocabulary: SNOMED CT Colitis (SNOMED CT :9199356292 ) Name of Problem: Colitis ; Recorder: MILTON GAMEZ RN; Confirmation: Confirmed ; Classification: Medical ; Code: [id number] ; Contributor System: Extreme DA ; Last Updated: 12/16/2018 11:30 EDT ; Life Cycle Date: 12/16/2018 ; Life Cycle Status: Active ; Vocabulary: SNOMED CT DJD (degenerative joint disease) of thoracic spine (SNOMED CT :1858538389 ) Name of Problem: DJD (degenerative joint disease) of thoracic spine ; Recorder: MILTON GAMEZ RN; Confirmation: Confirmed ; Classification: Medical ; Code: [id number] ; Contributor System: TsukulinkChart ; Last Updated: 12/16/2018 11:30 EDT ; Life Cycle Date: 12/16/2018 ; Life Cycle Status: Active ; Vocabulary: SNOMED CT History of obstructive sleep apnea (IMO :64064428 ) Name of Problem: History of obstructive sleep apnea ; Recorder: SYSTEM, SYSTEM; Confirmation: Confirmed ; Classification: Medical ; Code: [id number] ; Last Updated: 12/16/2018 11:47 EDT ; Life Cycle Date: 12/16/2018 ; Life Cycle Status: Active ; Vocabulary: IMO Parkinson disease (SNOMED CT :46221947 ) Name of Problem: Parkinson disease ; Recorder: MILTON GAMEZ RN; Confirmation: Confirmed ; Classification: Medical ; Code: [id number] ; Contributor System: Extreme DA ; Last Updated: 12/16/2018 11:28 EDT ; Life Cycle Date: 12/16/2018 ; Life Cycle Status: Active ; Vocabulary: SNOMED CT Scoliosis (SNOMED CT :863030944 ) Name of Problem: Scoliosis ; Recorder: MILTON GAMEZ RN; Confirmation: Confirmed ; Classification: Medical ; Code: [id number] ; Contributor System: Extreme DA ; Last Updated: 12/16/2018 11:29 EDT ; Life Cycle Date: 12/16/2018 ; Life Cycle Status: Active ; Vocabulary: SNOMED CT Diagnoses(Active) Back pain Date: 11/02/2019 ; Diagnosis Type: Reason For Visit ; Confirmation: Complaint of ; Clinical Dx: Back pain ; Classification: Medical ; Clinical Service: Non-Specified ; Code: PNED ; Probability: 0 ; Diagnosis Code: [id number] ED Height and Weight Height Source : Stated Height Entry Format : [place] Height, Feet : 5 ft(Converted to: 152 cm, 60 Inch) Height, Inches : 9 Inch(Converted to: 0 ft 9 Inch, 22.86 cm) Clinical Height : 175.26 cm Weight Source, ED : Critical estimated dosing weight Weight Entry Format : [place] Weight, Pounds : 205 lb Clinical Dosing Weight : 93.18 kg Body Surface Area (BSA) : 2.09 m2 Body Mass Index : 30.3 kg/m2 (HI) [place] Body Weight (IBW) : 69.73 kg Danelle Maya RN - 11/02/2019 0:47 EDT documented in this encounter Plan of Treatment Not on file documented as of this encounter Visit Diagnoses Not on filedocumented in this encounter
--- OUTSIDE RECORDS SUMMARY | 2025-01-27 13:09 | XMS_ITS | Encounter Summary ---
Author Organization [employer] ([place], [place], [place], [place]) Address [address] [place] [address] Care Team Providers Care Turbine Blade Assembler Name Role Phone Unavailable Primary Care Provider Unavailabl e Encounter Details Date Type Department Care Team (Late st Contact Info) Description 11/07/2019 Transcribed Document [facility] [place] Medicine [address] [place] [address] ProviderAgnieszka MD [address] [place], [place] [address] Social History Tobacco Use Types Packs/Day Years Used Date Smoking Tobacco: Never Assessed Sex and Gender Information Value Date Recorded Sex Assigned at Not on file Legal Sex Male 2:38 PM CDT Gender Identity Not on file Sexual Orientation Not on file documented as of this encounter Miscellaneous Notes * Cerner Conversion Note - Historical ProviderMD - 11/07/2019 10:00 AM CDT Pain Assessment Entered On: 11/07/2019 17:46 EDT Performed On: 11/07/2019 10:00 EDT by Zee Taylor RN Intervention Information: acetaminophen Performed by Zee Taylor RN on 11/07/2019 09:00:00 EDT acetaminophen,650mg Oral Pain Assessment Pain Assessment : Follow-up assessment Pain Scale Goal : 2 Pain Improved by Intervention : Yes Zee Taylor RN - 11/07/2019 17:46 EDT documented in this encounter Plan of Treatment Not on file documented as of this encounter Visit Diagnoses Not on filedocumented in this encounter
--- OUTSIDE RECORDS SUMMARY | 2025-01-27 13:09 | XMS_ITS | Encounter Summary ---
Author Organization [employer] ([place], [place], [place], [place]) Address [address] [place] [address] Care Team Providers Care Bleach Analyst Name Role Phone Unavailable Primary Care Provider Unavailabl e Encounter Details Date Type Department Care Team (Late st Contact Info) Description 11/07/2019 Transcribed Document [facility] [place] [address] [place] [address] ProviderAgnieszka MD [address], [place] [address] Social History Tobacco Use Types Packs/Day Years Used Date Smoking Tobacco: Never Assessed Sex and Gender Information Value Date Recorded Sex Assigned at Not on file Legal Sex Male 2:38 PM CDT Gender Identity Not on file Sexual Orientation Not on file documented as of this encounter Miscellaneous Notes * Cerner Conversion Note - Historical ProviderMD - 11/07/2019 6:00 PM CDT Pain Assessment Entered On: 11/07/2019 17:48 EDT Performed On: 11/07/2019 18:15 EDT by Zee Taylor RN Intervention Information: acetaminophen Performed by Zee Taylor RN on 11/07/2019 17:15:00 EDT acetaminophen,650mg Oral Pain Assessment Pain Assessment : Follow-up assessment Pain Scale Goal : 2 Pain Improved by Intervention : Yes Zee Taylor RN - 11/07/2019 17:48 EDT documented in this encounter Plan of Treatment Not on file documented as of this encounter Visit Diagnoses Not on filedocumented in this encounter
--- OUTSIDE RECORDS SUMMARY | 2025-01-27 13:09 | XMS_ITS | Encounter Summary ---
Author Organization [employer] ([place], [place], [place], [place]) Address [address] [place] [address] Care Team Providers Care Fraternity House Cook Name Role Phone Unavailable Primary Care Provider Unavailabl e Encounter Details Date Type Department Care Team (Late st Contact Info) Description 11/03/2019 Transcribed Document [facility] [place] Family Medicine [address] [place] [address] ProviderAgnieszka MD [address] [place], [place] [address] Social History Tobacco Use Types Packs/Day Years Used Date Smoking Tobacco: Never Assessed Sex and Gender Information Value Date Recorded Sex Assigned at Not on file Legal Sex Male 2:38 PM CDT Gender Identity Not on file Sexual Orientation Not on file documented as of this encounter Miscellaneous Notes * Cerner Conversion Note - Historical ProviderMD - 11/03/2019 5:00 AM CDT Chart Check - Review Order Profile Entered On: 11/04/2019 7:45 EDT Performed On: 11/03/2019 5:00 EDT by DUANE CHUN, RN Chart Check Powerplans Initiated/Discontinued as Appropriate : Yes All Active Orders Reviewed : Yes DUANE CHUN RN - 11/04/2019 7:45 EDT documented in this encounter Plan of Treatment Not on file documented as of this encounter Visit Diagnoses Not on filedocumented in this encounter
--- OUTSIDE RECORDS SUMMARY | 2025-01-27 13:09 | XMS_ITS | Encounter Summary ---
Author Organization [employer] ([place], [place], [place], [place]) Address [address] [place] [address] Care Team Providers Care Hand Spray Operator Name Role Phone Unavailable Primary Care Provider Unavailabl e Encounter Details Date Type Department Care Team (Late st Contact Info) Description 11/06/2019 Transcribed Document [facility] [place] [address] [place] [address] ProviderAgnieszka MD [address], [place] [id number] Social History Tobacco Use Types Packs/Day Years Used Date Smoking Tobacco: Never Assessed Sex and Gender Information Value Date Recorded Sex Assigned at Not on file Legal Sex Male 2:38 PM CDT Gender Identity Not on file Sexual Orientation Not on file documented as of this encounter Miscellaneous Notes * Cerner Conversion Note - Agnieszka ProviderMD - 11/06/2019 1:02 PM CDT [facility] Main OR IntraOp Summary Primary Physician: HEIDE KAT MD-SNU Finalized Date/Time: 11/07/19 12:14:47 Pt. Name: EILEEN MAYEN JR/Sex: 1950 Male Med Rec #: [id number] Physician: LORENA SAGASTUME MD-INT Financial #: [id number] Pt. Type: I Room/Bed: [facility] Admit/Disch: 11/02/19 02:59:00 - Institution: [facility] IntraOp Case Attendance Entry 1 Entry 2 Entry 3 Case Attendee HEIDE KAT BURBERRY, KEITH, MD-ANS BOWEN, JON B, MD-ANS MD-SNU Role Performed Surgeon/Proceduralist, Anesthesiologist Anesthesiologist First Time In 11/06/19 12:39:00 11/06/19 12:39:00 11/06/19 12:50:00 Time Out 11/06/19 14:40:00 11/06/19 12:50:00 11/06/19 14:40:00 Procedure Thoracic Laminectomy Thoracic Laminectomy Thoracic Laminectomy Other Attendee Superficial Wound Closed By: Last Modified By: ANNABELLE ELDER RN SMITH, MYRIAH L., ANNABELLE HANNAH RN 11/06/19 14:39:34 11/06/19 14:39:34 11/06/19 14:39:34 Entry 4 Entry 5 Case Attendee ANNABELLE ELDER, RN ZEINAB CABRERA, UPPER AND BOTTOM LACER HAND Role Performed Trim Setter, First Scrub, First Time In 11/06/19 12:39:00 11/06/19 12:39:00 Time Out 11/06/19 14:40:00 11/06/19 14:40:00 Procedure Thoracic Laminectomy Thoracic Laminectomy Other Attendee Superficial Wound Closed By: Last Modified By: ANNABELLE ELDER RN SMITH, MYRIAH L., RN 11/06/19 14:39:34 11/06/19 14:39:34 [facility] IntraOp Case Attendance Audit 11/06/19 14:39:34 Yoker Machine Operator: ISIAH Modifier: SMITHML 1 <+> Time Out 1 <*> Procedure Thoracic Laminectomy 2 <*> Procedure Thoracic Laminectomy 3 <+> Time Out 3 <*> Procedure Thoracic Laminectomy 4 <+> Time Out 4 <*> Procedure Thoracic Laminectomy 5 <+> Time Out 5 <*> Procedure Thoracic Laminectomy 11/06/19 14:28:47 Yoker Machine Operator: ISIAH Modifier: SMITHML <+> 1 Procedure <+> 2 Procedure <+> 3 Procedure <+> 4 Procedure <+> 5 Procedure 11/06/19 14:28:11 Yoker Machine Operator: ISIAH Modifier: SMITHML 2 <+> Time In 2 <-> Procedure Lumbar Fusion Posterior 3 <-> Procedure Lumbar Fusion Posterior 4 <+> Time In 4 <-> Procedure Lumbar Fusion Posterior 5 <+> Time In 5 <-> Procedure Lumbar Fusion Posterior [facility] IntraOp Case Times Entry 1 Patient In Room Time 11/06/19 12:39:00 Out Room Time 11/06/19 14:40:00 Anesthesia Start Time 11/06/19 12:39:00 Stop Time 11/06/19 14:40:00 Surgery / Procedure Times Start Time 11/06/19 13:02:00 Stop Time 11/06/19 14:15:00 Last Modified By: ANNABELLE ELDER RN 11/06/19 14:39:04 [facility] IntraOp Case Times Audit 11/06/19 14:39:04 Yoker Machine Operator: SMITHML Modifier: SMITHML <+> 1 Out Room Time <+> 1 Stop Time 11/06/19 14:27:07 Yoker Machine Operator: SMITHML Modifier: SMITHML <+> 1 Stop Time 11/06/19 13:02:31 Yoker Machine Operator: SMITHML Modifier: SMITHML <+> 1 Start Time [facility] IntraOp Cautery Entry 1 Entry 2 ESU Identification Cautery Type Monopolar ESU BiPolar ESU Cautery Type Comments ID Number [id number] ID Type Hospital Number Hospital Number Cautery Settings Cut Setting 40 8 Coag Setting 40 40 Blend Setting Bipolar Setting Argon Setting Argon Rowley ESU Grounding Pad Ground Pad Type Adult Grounding Pad Type Comment Grounding Pad Site Left thigh Grounding Pad Site Comment Grounding Pad ANNABELLE ELDER RN Applied By Grounding Pad Site Warm, dry and intact Skin Condition Before Cautery Site Skin Condition Before Comment Grounding Pad Site Unchanged Skin Condition After Cautery Site Skin Condition After Comment Last Modified By: ANNABELLE ELDER RN SMITH, MYRIAH L., RN 11/06/19 13:08:54 11/06/19 13:08:54 [facility] IntraOp Communication Entry 1 Communication To Family/Significant other Comment spoke to family preoperatively Communication By ANNABELLE ELDER RN Date and Time 11/06/19 13:04:00 Last Modified By: ANNABELLE ELDER RN 11/06/19 13:04:26 [facility] IntraOp Counts Verification Entry 1 Procedure Thoracic Laminectomy Count Info Count Type Sponge, Sharps, Miscellaneous Counts Verification Baseline/pre-procedure Sequence Count Results Not Applicable Counts Performed By Count Performed By ZEINAB CABRERA, UPPER AND BOTTOM LACER HAND (Scrub) Count Performed By ANNABELLE ELDER RN (RN) Last Modified By: ANNABELLE ELDER RN 11/06/19 14:28:48 [facility] IntraOp Counts Verification Audit 11/06/19 14:28:48 Yoker Machine Operator: ISIAH Modifier: SMITHML <+> 1 Procedure 11/06/19 14:28:12 Yoker Machine Operator: SMITHML Modifier: SMITHML 1 <-> Procedure Lumbar Fusion Posterior [facility] IntraOp Counts Final Entry 1 Procedure Thoracic Laminectomy Final Count Info Count Type Sponge, Sharps, Miscellaneous Counts Verification Skin Closure/end of Sequence procedure Count Results Correct, surgeon notified Counts Performed By Count Performed By ZEINAB CABRERA UPPER AND BOTTOM LACER HAND (Scrub) Count Performed By ANNABELLE ELDER RN (RN) Last Modified By: ANNABELLE ELDER RN 11/06/19 14:28:49 [facility] IntraOp Counts Final Audit 11/06/19 14:28:49 Yoker Machine Operator: SMITHML Modifier: SMITHML <+> 1 Procedure 11/06/19 14:28:13 Yoker Machine Operator: ISIAH Modifier: SMITHML 1 <-> Procedure Lumbar Fusion Posterior [facility] IntraOp Cultures and Spec Summary Entry 1 Cultrures and Specimens Specimen Ordered: Yes Test(s) Culture(s)/Microbiology Requested/Final Disposition Last Modified By: ANNABELLE ELDER RN 11/06/19 13:12:47 General Comments: surgical swabs tissue for culture [facility] IntraOp Departure from OR Entry 1 Integumentary Assessment Integumentary WDL with patient Assessment WDL specific variances Patient's Normal incision Integumentary Variance(s) Transfer/Handoff Transfer to PACU Phase I Handoff Method Bedside/Face to face, Phone call Post-op Transport Stretcher/Gurney Via Patient Transport URIEL MATOS MD-ANS, Accompanied by ANNABELLE ELDER RN Last Modified By: ANNABELLE ELDER RN 11/06/19 13:12:37 [facility] IntraOp Dressing and Packing Entry 1 Type Dressing Location back Wound Dressing Item Occlusive dressing Applied By HEIDE KAT MD-SNU Other Comments neosporin Last Modified By: ANNABELLE ELDER RN 11/06/19 13:12:13 [facility] IntraOp Fire Risk Assessment Entry 1 Fire Info Surgical Site or 0- No Incision Above the Xyphoid Open O2 Source 0- No (Mask or Cannula) Available Ignition 1- Yes (ESU, Laser, Light Source) Fire Risk 1 Assessment Score Fire Score Fire Risk Yes Assessment Complete Fire Risk ANNABELLE ELDER RN Assessment Verified By Fire Risk 11/06/19 13:05:00 Assessment Verified Date/Time Fire Risk Standard Fire Yes Safety Precautions Followed Last Modified By: ANNABELLE ELDER RN 11/06/19 13:05:27 [facility] IntraOp General Case Registration Coordinator 1 Case Information OR OR [facility] Case Level 1 Room Verified Yes Wound Class I - Clean Specialty SN Neurosurgery Anesthesia Type General ASA Class 3E Diagnosis Preop Diagnosis thoracic epidural hematoma Postop Same As Preop No Postop Diagnosis see drs post op notes Last Modified By: ANNABELLE ELDER RN 11/06/19 13:05:13 [facility] IntraOp Intraoperative Assessment Entry 1 Handoff Method Bedside/Face to face, Online nursing summary Valid History / Yes Physical in Chart Preoperative Yes Checklist Reviewed/Evaluated Allergies Reviewed Yes Patient is Latex No Sensitive Isolation Not applicable Precautions Noted Level of WDL with patient Consciousness (WDL specific variances = Alert, Oriented to Person, Place, and Time) Patient's Normal decreased Level of affect/parkinsons Consciousness Variance(s) Skin Assessment No Verified Present Upon IVs, Central line Arrival to OR Prosthetic/Assistive Hardware Devices Last Modified By: ANNABELLE ELDER RN 11/06/19 13:07:57 [facility] IntraOp Intraoperative Equipment Entry 1 Type Equipment Equipment Equipment Lithotripsy Machine ID Number [id number] Intraop Monitoring Antiembolic Devices Antiembolic Devices Sequential compression device, knee high Antiembolic Device Bilateral Location Antiembolic Device [id number] ID Number Scopes Photo/Video Documentation Last Modified By: ANNABELLE ELDER RN 11/06/19 13:08:16 [facility] IntraOp Medication Admin Entry 1 Entry 2 Entry 3 Medication/Irrigant Bacitracin 50,00units lidocaine 1% w/ Marcaine 0.25% 30ml powder vial epinephrine 1:100,000 vial - [id number] 30ml vial - [id number] Combo Med List Time Administered Route of irrigation local local Administration Dose Dose 03071 10 20 Unit of Measure units ml ml Volume Administered By HEIDE KAT TUTT, MATTHEW PAIGE, TUTT, MATTHEW PAIGE, MD-SNU MD-SNU MD-SNU Procedure Irrigation Irrigant Volume In Irrigant Volume Out Last Modified By: ANNABELLE ELDER RN SMITH, MYRIAH L., RN SMITH, MYRIAH L., RN 11/06/19 13:11:50 11/06/19 13:11:50 11/06/19 13:11:50 Entry 4 Entry 5 Entry 6 Medication/Irrigant SPNG SURGFOAM Neosporin 15Gm ointment thrombin 5000units [id number] - [id number] topical powder - [id number] Combo Med List 1 - Combo Med 1 - Combo Med Time Administered Route of topical topical topical Administration Dose Dose 1 5000 Unit of Measure pkt units Volume Administered By HEIDE KAT TUTT, MATTHEW PAIGE, TUTT, MATTHEW PAIGE, MD-SNU -SNLanie DEMPSEY-SNLanie Procedure Irrigation Irrigant Volume In Irrigant Volume Out Last Modified By: ANNABELLE ELDER RN SMITH, MYRIAH L., RN SMITH, MYRIAH L., RN 11/06/19 13:11:50 11/06/19 13:11:50 11/06/19 13:11:50 Entry 7 Medication/Irrigant vancomycin 1Gm vial - [id number] Combo Med List Time Administered Route of topical Administration Dose Dose 1 Unit of Measure gram Volume Administered By HEIDE KAT MD-SNLanie Procedure Irrigation Irrigant Volume In Irrigant Volume Out Last Modified By: ANNABELLE ELDER RN 11/06/19 13:11:50 [facility] IntraOp Patient Positioning Entry 1 Procedure Thoracic Laminectomy Body Position Prone Left Arm Position Secured on padded arm board Right Arm Position Secured on padded arm board Left Leg Position Uncrossed, parallel Right Leg Position Uncrossed, parallel Feet Uncrossed Yes Pressure Points Yes Checked Positioning Devices Head Rest, Arm Board, Pad, Arm, Sam Table, Pillows, Safety Strap, Thighs Positioned By HEIDE KAT MD-SNLanie, MARLEN SHETH MD-ANS, ANNBAELLE ELDER, RN, ZEINAB CABRERA, [place]O Position Verified Positioning Yes Verified by Anesthesia Positioning Yes Verified by Surgeon Last Modified By: ANNABELLE ELDER RN 11/06/19 14:28:48 [facility] IntraOp Patient Positioning Audit 11/06/19 14:28:48 Yoker Machine Operator: ISIAH Modifier: ISIAH <+> 1 Procedure 11/06/19 14:28:12 Yoker Machine Operator: ISIAH Modifier: ISIAH 1 <-> Procedure Lumbar Fusion Posterior [facility] IntraOp Sign In Entry 1 Patient, Site, Yes Procedure Identified Surgical Consent No, unable to assess - Confirmed Emergent case Relevant Surgical No, unable to assess - Documents Available Emergent case Surgical Site N/A Marked by person performing procedure Anesthesia Machine Yes Check Completed Medication Checks Yes Completed Allergies Yes Airway Difficult Yes Airway/Aspiration Risk Difficult Yes Airway/Aspiration Intervention Equipment Available Blood Loss Risk Yes Blood Loss Yes Intervention Equipment Prepared and Ready Blood Identifiers Yes Verified Per Policy Hypothermia Risk Yes Warming Measures Yes Taken Last Modified By: ANNABELLE ELDER RN 11/06/19 13:04:05 [facility] IntraOp Sign Out Entry 1 RN Confirmation Surgical Yes Procedure(s) Identified Instrument, Sponge Yes and Sharps Counts Correct/Documented Equipment Problems N/A Documented Specimen Labeled Yes Correctly Urinary Catheter N/A Documented in IView Pillai Patient Yes Recovery Concerns Reviewed with Anesthesia Provider, Surgeon and RN Pillai Patient Yes Management Concerns Reviewed with Anesthesia Provider, Surgeon and RN Safety Checklist Yes Elements Complete? RN Sign Out ANNABELLE ELDER RN Signature RN Sign Out 11/06/19 14:40:00 Signature Date/Time Plan of Care Outcome - Fire Risk OUTCOME STATEMENT: Goal met Patient is free from injury related to surgical fire Plan of Care Outcome - Pt Positioning OUTCOME STATEMENT: Goal met Absence of signs and symptoms of positioning injury. Plan of Care Outcome - Skin Prep OUTCOME STATEMENT: Goal met Intraoperative care is consistent with measures to prevent infection Plan of Care Outcome - Xray/Images OUTCOME STATEMENT: N/A Absence of observable signs or symptoms of radiation injury Plan of Care Outcome - Counts OUTCOME STATEMENT: Goal met Absence of signs and symptoms of injury related to extraneous objects Last Modified By: ANNABELLE ELDER RN 11/06/19 14:39:33 [facility] IntraOp Skin Prep Entry 1 Procedure Thoracic Laminectomy Prescribed N/A Pre-Surgical Prep Completed Prep Area back Intraop Prep Integumentary WDL with patient Assessment WDL specific variances WDL Patient gilson and drain in Exceptions place Prep Agents Alcohol, Chloraprep, Chlorhexadine gluconate Prep by HEIDE KAT MD-SNU Hair Removal Methods No hair removal performed Last Modified By: ANNABELLE ELDER RN 11/06/19 14:28:49 [facility] IntraOp Skin Prep Audit 11/06/19 14:28:49 Yoker Machine Operator: ISIAH Modifier: SMITHML <+> 1 Procedure 11/06/19 14:28:12 Yoker Machine Operator: ISIAH Modifier: SMITHML 1 <-> Procedure Lumbar Fusion Posterior [facility] IntraOp Surgical Procedures Entry 1 Procedure Thoracic Laminectomy Additional thoracic laminectomy, Procedure I&D Description Primary Procedure Yes Primary Surgeon HEIDE KAT MD-SNU Start 11/06/19 13:02:00 Stop 11/06/19 14:15:00 Anesthesia Type General Specialty SN Neurosurgery Wound Class I - Clean Last Modified By: ANNABELLE ELDER RN 11/06/19 14:28:41 [facility] IntraOp Temp Regulation Devices Entry 1 Temp Regulation Temperature Forced Air Warming Regulation Device device, Room temperature, Warm blankets Temperature Upper body, Lower body Regulation Site Temperature URIEL MATOS MD-ANS Regulation Device Applied by Last Modified By: ANNABELLE ELDER RN 11/06/19 13:20:01 [facility] IntraOP Time Out Entry 1 Procedure to be Thoracic Laminectomy Performed Time Out Time Out Pause Time 11/06/19 13:02:00 All activity Yes suspended (unless life threatening emergency) Team Verbally Correct patient Confirms Information identity, Correct side and site are marked, Consent form is present and accurate, Agreement on the procedure to be done, Correct patient position, Relevant images/results properly labeled/appropriately displayed, Confirm antibiotics have been administered, Confirm the skin prep has dried, Confirm prosthesis/implant/devic e is present, Performed in location of procedure after prepped/draped Antibiotic Yes Prophylaxis Administered Or In Progress Within the Last 60 Minutes Beta Nathaniel N/A Administered Venous Yes Thromboembolism Prophylaxis Required Anticipated Critical Events Surgeon None expected Anesthesia Provider Patient specific concerns Nursing Assures Sterility of instruments, Implant Availability Essential Imaging N/A Labeled and Displayed Last Modified By: ANNABELLE ELDER RN 11/06/19 14:28:49 [facility] IntraOP Time Out Audit 11/06/19 14:28:49 Yoker Machine Operator: ISIAH Modifier: SMITHML <+> 1 Procedure to be Performed 11/06/19 14:28:13 Yoker Machine Operator: ISIAH Modifier: SMITHML 1 <-> Procedure to be Performed Lumbar Fusion Posterior Case Comments <None> Finalized By: JUNIE ROWLEY Document Signatures Signed By: ANNABELLE ELDER RN 11/06/19 14:39 ROWLEYJUNIE 11/07/19 12:14 Unfinalized History Date/Time Username Reason for Unfinalizing Freetext Reason for Unfinalizing 11/07/19 12:10 [id number] Correct Billing Electronically signed by Stew Centeno Conversion Neuropsychology Service Director Cerner at 11/12/2022 9:44 PM CDT documented in this encounter Plan of Treatment Not on file documented as of this encounter Visit Diagnoses Not on filedocumented in this encounter
--- OUTSIDE RECORDS SUMMARY | 2025-01-27 13:09 | XMS_ITS | Encounter Summary ---
Author Organization [employer] ([place], [place], [place], [place]) Address [address] [place] [address] Care Team Providers Care Ironworker Name Role Phone Unavailable Primary Care Provider Unavailabl e Encounter Details Date Type Department Care Team (Late st Contact Info) Description 11/04/2019 Transcribed Document [facility] [place] [facility] [place] [address] ProviderAgnieszka MD [address], [place] [address] Social History Tobacco Use Types Packs/Day Years Used Date Smoking Tobacco: Never Assessed Sex and Gender Information Value Date Recorded Sex Assigned at Not on file Legal Sex Male 2:38 PM CDT Gender Identity Not on file Sexual Orientation Not on file documented as of this encounter Miscellaneous Notes * Cerner Conversion Note - Agnieszka ProviderMD - 11/04/2019 4:42 PM CDT Patient: SIMBA MAYEN JR Age: [...] in the rainey with assistance from PT PAST MEDICAL HISTORY Rheumatoid Arthritis on Remicade [...] MiraLax: 17 Gram, Oral, Daily, PRN: Constipation Irvine 10 mg-325 mg oral tablet: 1 Tab, Oral, Q6H, PRN: Pain (Severe 7-10) Norvasc: 10 mg, Oral, Daily Valium: 5 mg, IV Push, Q6H, PRN: Spasms Zofran: 4 mg, IV Push, Q4H, PRN: Nausea bisacodyl: 10 mg, Rectal, BID, PRN: Constipation carbidopa-levodopa 25 mg-100 mg oral tablet: 1 Tab, Oral, QID cefepime + Sodium Chloride 0.9% intravenous solution 50 mL: 2 Gram, 100 mL/Hr, IV Piggyback, [id number] heparin: 5,000 Units, SubCutaneous, Q8H hydrALAZINE: 10 mg, IV Push, Q6H, PRN: Hypertension lactobacillus acidophilus: 1 Cap, Oral, Daily morphine: 2 mg, IV Push, Q2H, PRN: Pain (Severe 7-10) sodium chloride 0.9% injectable solution: 10 mL, IV Push, Q8H vancomycin + Sodium Chloride 0.9% intravenous solution 250 mL: 1,250 mg, 250 mL/Hr, IV Piggyback, [id number] Documented Medications Documented Azilect 1 mg oral tablet: 1 Tab, Oral, Daily, 30 Tab, 0 Refill(s) Remicade: 10 mg/kg, IntraVENous, [id number], for Ulcerative Colitis; Last dose: 09/29/2019, 0 Refill(s) carbidopa-levodopa 25 mg-100 mg oral tablet: 1 Tab, Oral, QID, 120 Tab, 0 Refill(s) Physical Examination VS/Measurements Vitals Signs (last 24 hrs) Last Charted Minimum Maximum Temp 98.5 (NOV 03:) 97.5 (NOV 03 10:37) 98.5 (NOV 02 22:25) Apical HR 100 (NOV 03 13:38) 100 (NOV 03 13:12) 100 (NOV 03 13:12) Mon HR 90 (NOV 03:) 87 (NOV 02 22:25) 110 (NOV 03 06:36) Resp Rate 17 (NOV 03:) 17 (NOV 03:) 20 (NOV 02 22:25) SBP H 154 (NOV 03:) 134 (NOV 02 18:45) H 189 (NOV 03:17) DBP H 101 (NOV 03:31) 90 (NOV 02 18:45) H 112 (NOV 03:17) MAP 121 (NOV 03:) 102 (NOV 02 18:45) 131 (NOV 03 05:17) SpO2 96 (NOV 03:) 96 (NOV 02 18:45) 98 (NOV 03 06:36) General: alert; No acute distress. Eye: Normal conjunctiva, Vision [...] review: Labs (Last four charted values) WBC 6.5 (NOV 02) 8.7 (NOV 01) HB L 12.2 (NOV 02) 13.5 (NOV 01) HCT L 37.6 (NOV 02) 43.0 (NOV 01) Plt 280 (NOV 03) 291 (NOV 02) 283 (NOV 01) Na 139 (NOV 02) 137 (NOV 01) K 3.6 (NOV 02) 4.5 (NOV 01) Cl 109 (NOV 02) 106 (NOV 01) CO2 25 (NOV 02) 23 (NOV 01) BUN 15 (NOV 02) 19 (NOV 01) Cr 0.70 (NOV 02) 1.00 (NOV 01) Glu R 93 (NOV 02) 100 (NOV 01) Ca 8.8 (NOV 02) 8.9 (NOV 01) Lactic 1.3 (NOV 01) PT 11.2 (NOV 01) INR 1.1 (NOV 01) PTT H 36.2 (NOV 03) AST 16 (NOV 01) ALT 29 (NOV [...] prolonged course of parenteral therapy -- probiotic discussed with Dr Akers documented in this encounter Plan of Treatment Not on file documented as of this encounter Visit Diagnoses Not on filedocumented in this encounter
--- OUTSIDE RECORDS SUMMARY | 2025-01-27 13:09 | XMS_ITS | Data Portability ---
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 He has been in symptomatic remission with Entyvio infusions q8 weeks for a few years now. We will assume prescribing for this. Order was faxed to the [facility] infusion center. -Obtain labs per [...] receive his infusions, then in 6 months. [email or web address] Not available 12/04/2023 22:09:39 06/07/2024 06/07/2024 73-year-old male with: 1) Ulcerative colitis:He has been in symptomatic remission with Entyvio infusions q8 weeks for a few years now. He receives his infusions at [facility]. His order for this is [...] and PRN. Will call with lab results. [email or web address] Not available 06/07/2024 18:38:26 Plan of Treatment Reminders Order Date Submit Date Provider Last Modified By Organization Details Last Modified Time Details Appointments None recorded. Lab ESR (erythrocyt e sedimentati on rate), blood 2023 024 KOBI Gustafson, [address], [address], [place], [address], 4 16:13:15 C reactive protein, QN, serum or plasma 2023 024 KOBI Gustafson, [address], [address], [place], [address], 4 16:13:16 CMP, serum or plasma 2023 024 KOBI Gustafson, [address], [address], [place], [address], 4 16:13:13 CBC w/ auto diff 2023 024 KOBI Gustafson, [address], [address], [place], [address], 4 16:13:11 vitamin D, 25-hydroxy, total, serum 2023 024 KOBI Gustafson, [address], [address], [place], [address], 4 16:13:14 ESR (erythrocyt e sedimentati on rate), blood 2023 024 KOBI [facility], [address], [address], [place], [address], 4 16:10:31 C reactive protein, QN, serum or plasma 2023 024 KOBI [facility], [address], [address], [place], [address], 4 16:10:32 CMP, serum or plasma 2023 024 KOBI [facility], [address], [address], [place], [address], 4 16:10:28 CBC w/ auto diff 2023 024 KOBI [facility], [address], [address], [place], [address], 4 16:10:27 vitamin D, 25-hydroxy, total, serum 2023 024 KOBI [facility], [address], [address], [place], [address], 4 16:10:30 Mycobacteri um tuberculosi s stimulated gamma interferon, qual, blood 2023 024 KOBI [facility], [address], [address], [place], [address], 4 16:10:29 hepatitis B surface Ab, quantitativ e, serum 2023 024 KOBI [facility], [address], [address], [place], [address], 4 16:10:29 HBsAg (hepatitis B surface Ag), EIA, serum 2023 GRANTS [facility], [address], [address], [place], [address], 16:10:32 Referral None recorded. Procedures None recorded. Surgeries None recorded. Imaging None recorded. Medication Orders polyethylen e glycol 3350 17 gram/dose oral powder 2023 024 GRANTS [facility] #[id number], [address], [id number], 4 14:18:08 Citrucel (sucrose) oral powder 2023 024 GRANTS [facility] #[id number], [address], [place], [place], [id number], 4 14:18:09 omeprazole 20 mg capsule,del ayed release 2023 024 [email or web address] [facility] #[id number], [address], [phone], 4 18:10:43 Patient TargetsNo targets recorded. Patient InstructionsNo instructions recorded. Reason for Referral None Reported. Results Created Date Observation Date Name Description Value Unit Range Abnormal Flag Note LastModifiedBy Organization Detail LastModifiedTime 12/04/1912/05/2023 CBC WITH DIFFE RENTI AL/PL ATELE T WBC 4.6 x10e3 /uL 3.4-10 .8 Not Available [facility] ([facility]) [address], [place], [address], 12/06/2023 16:10:27 12/04/19 24 12/05/2023 CBC WITH DIFFE RENTI AL/PL ATELE T RBC 5.37 x10e6 /uL 4.14-5 .80 Not Available [facility] ([facility]) [address], [place], [address], 12/06/2023 16:10:27 12/04/19 24 12/05/2023 CBC WITH DIFFE RENTI AL/PL ATELE T hemoglobin 15.7 g/dL 13.0-1 7.7 Not Available [facility] ([facility]) [address] [place], [address], 12/06/2023 16:10:27 12/04/19 24 12/05/2023 CBC WITH DIFFE RENTI AL/PL ATELE T hematocrit 47.8 % 37.5-5 1.0 Not Available [facility] ([facility]) [address] [place], [address], 12/06/2023 16:10:27 12/04/19 24 12/05/2023 CBC WITH DIFFE RENTI AL/PL ATELE T MCV 89 fL 79-97 Not Available [facility] ([facility]) [address] [place], [address], 12/06/2023 16:10:27 12/04/19 24 12/05/2023 CBC WITH DIFFE RENTI AL/PL ATELE T MCH 29.2 pg 26.6-3 3.0 Not Available [facility] ([facility]) [address] [place], [address], 12/06/2023 16:10:27 12/04/19 24 12/05/2023 CBC WITH DIFFE RENTI AL/PL ATELE T MCHC 32.8 g/dL 31.5-3 5.7 Not Available [facility] ([facility]) [address] [place], [address], 12/06/2023 16:10:27 12/04/19 24 12/05/2023 CBC WITH DIFFE RENTI AL/PL ATELE T RDW 12.7 % 11.6-1 5.4 Not Available [facility] ([facility]) [address] [place], [address], 12/06/2023 16:10:27 12/04/19 24 12/05/2023 CBC WITH DIFFE RENTI AL/PL ATELE T platelets 237 x10e3 /uL 150-45 0 Not Available [facility] ([facility]) [address], [place], [address], 12/06/2023 16:10:27 12/04/19 24 12/05/2023 CBC WITH DIFFE RENTI AL/PL ATELE T neutrophils 44 % not estab. Not Available [facility] ([facility]) [address], [place], [address], 12/06/2023 16:10:27 12/04/19 24 12/05/2023 CBC WITH DIFFE RENTI AL/PL ATELE T lymphs 42 % not estab. Not Available [facility] ([facility]) [address], [place], [address], 12/06/2023 16:10:27 12/04/19 24 12/05/2023 CBC WITH DIFFE RENTI AL/PL ATELE T monocytes 11 % not estab. Not Available [facility] ([facility]) [address], [place], [address], 12/06/2023 16:10:27 12/04/19 24 12/05/2023 CBC WITH DIFFE RENTI AL/PL ATELE T eos 2 % not estab. Not Available [facility] ([facility]) [address], [place], [address], 12/06/2023 16:10:27 12/04/19 24 12/05/2023 CBC WITH DIFFE RENTI AL/PL ATELE T basos 1 % not estab. Not Available [facility] ([facility]) [address], [place], [address], 12/06/2023 16:10:27 12/04/19 24 12/05/2023 CBC WITH DIFFE RENTI AL/PL ATELE T immature cells COOK TORTILLA Not Available [facility] ([facility]) [address] [place], [address], 12/06/2023 16:10:27 12/04/19 24 12/05/2023 CBC WITH DIFFE RENTI AL/PL ATELE T neutrophils (absolute) 2.0 x10e3 /uL 1.4-7. 0 Not Available [facility] ([facility]) [address] [place], [address], 12/06/2023 16:10:27 12/04/19 24 12/05/2023 CBC WITH DIFFE RENTI AL/PL ATELE T lymphs (absolute) 2.0 x10e3 /uL 0.7-3. 1 Not Available [facility] ([facility]) [address] [place], [address], 12/06/2023 16:10:27 12/04/19 24 12/05/2023 CBC WITH DIFFE RENTI AL/PL ATELE T monocytes(ab solute) 0.5 x10e3 /uL 0.1-0. 9 Not Available [facility] ([facility]) [address] [place], [address], 12/06/2023 16:10:27 12/04/19 24 12/05/2023 CBC WITH DIFFE RENTI AL/PL ATELE T eos (absolute) 0.1 x10e3 /uL 0.0-0. 4 Not Available [facility] ([facility]) [address] [place], [address], 12/06/2023 16:10:27 12/04/19 24 12/05/2023 CBC WITH DIFFE RENTI AL/PL ATELE T baso (absolute) 0.0 x10e3 /uL 0.0-0. 2 Not Available [facility] ([facility]) [address] [place], [address], 12/06/2023 16:10:27 12/04/19 24 12/05/2023 CBC WITH DIFFE RENTI AL/PL ATELE T immature granulocytes 0 % not estab. Not Available [facility] ([facility]) [address], [place], [address], 12/06/2023 16:10:27 12/04/19 24 12/05/2023 CBC WITH DIFFE RENTI AL/PL ATELE T immature grans (abs) 0.0 x10e3 /uL 0.0-0. 1 Not Available [facility] ([facility]) [address], [place], [address], 12/06/2023 16:10:27 12/04/19 24 12/05/2023 CBC WITH DIFFE RENTI AL/PL ATELE T NRBC COOK TORTILLA Not Available [facility] ([facility]) [address], [place], [address], 12/06/2023 16:10:27 12/04/19 24 12/05/2023 CBC WITH DIFFE RENTI AL/PL ATELE T hematology comments: COOK TORTILLA Not Available [facility] ([facility]) [address], [place], [address], 12/06/2023 16:10:27 12/04/19 24 12/05/2023 COMP. METAB OLIC PANEL (14) glucose 73 mg/dL 70-99 Not Available [facility] ([facility]) [address], [place], [address], 12/06/2023 16:10:28 12/04/19 24 12/05/2023 COMP. METAB OLIC PANEL (14) BUN 12 mg/dL 8-27 Not Available [facility] ([facility]) [address] [place], [address], 12/06/2023 16:10:28 12/04/19 24 12/05/2023 COMP. METAB OLIC PANEL (14) creatinine 1.04 mg/dL 0.76-1 .27 Not Available [facility] ([facility]) [address] [place], [address], 12/06/2023 16:10:28 12/04/19 24 12/05/2023 COMP. METAB OLIC PANEL (14) eGFR 75 mL/mi n/1.7 3 >59 Not Available [facility] ([facility]) [address] [place], [address], 12/06/2023 16:10:28 12/04/19 24 12/05/2023 COMP. METAB OLIC PANEL (14) BUN/creatini ne ratio 12 - Not Available [facility] ([facility]) [address] [place], [address], 12/06/2023 16:10:28 12/04/19 24 12/05/2023 COMP. METAB OLIC PANEL (14) sodium 141 mmol/ L 134-14 4 Not Available [facility] ([facility]) [address] [place], [address], 12/06/2023 16:10:28 12/04/19 24 12/05/2023 COMP. METAB OLIC PANEL (14) potassium 4.3 mmol/ L 3.5-5. 2 Not Available [facility] ([facility]) [address] [place], [address], 12/06/2023 16:10:28 12/04/19 24 12/05/2023 COMP. METAB OLIC PANEL (14) chloride 104 mmol/ L 96-106 Not Available [facility] ([facility]) [address] [place], [address], 12/06/2023 16:10:28 12/04/19 24 12/05/2023 COMP. METAB OLIC PANEL (14) carbon dioxide, total 23 mmol/ L 20-29 Not Available [facility] ([facility]) [address] [place], [address], 12/06/2023 16:10:28 12/04/19 24 12/05/2023 COMP. METAB OLIC PANEL (14) calcium 9.0 mg/dL 8.6-10 .2 Not Available [facility] ([facility]) [address] [place], [address], 12/06/2023 16:10:28 12/04/19 24 12/05/2023 COMP. METAB OLIC PANEL (14) protein, total 7.3 g/dL 6.0-8. 5 Not Available [facility] ([facility]) [address] [place], [address], 12/06/2023 16:10:28 12/04/19 24 12/05/2023 COMP. METAB OLIC PANEL (14) albumin 4.2 g/dL 3.8-4. 8 Not Available [facility] ([facility]) [address] [place], [address], 12/06/2023 16:10:28 12/04/19 24 12/05/2023 COMP. METAB OLIC PANEL (14) globulin, total 3.1 g/dL 1.5-4. 5 Not Available [facility] ([facility]) [address] [place], [address], 12/06/2023 16:10:28 12/04/19 24 12/05/2023 COMP. METAB OLIC PANEL (14) A/G ratio 1.4 1.2-2. 2 Not Available [facility] ([facility]) [address] [place], [address], 12/06/2023 16:10:28 12/04/19 24 12/05/2023 COMP. METAB OLIC PANEL (14) bilirubin, total 0.4 mg/dL 0.0-1. 2 Not Available [facility] ([facility]) [address] [place], [address], 12/06/2023 16:10:28 12/04/19 24 12/05/2023 COMP. METAB OLIC PANEL (14) alkaline phosphatase 95 IU/L 44-121 Not Available [facility] ([facility]) [address], [place], [address], 12/06/2023 16:10:28 12/04/19 24 12/05/2023 COMP. METAB OLIC PANEL (14) AST (SGOT) 17 IU/L 0-40 Not Available [facility] ([facility]) [address], [place], [address], 12/06/2023 16:10:28 12/04/19 24 12/05/2023 COMP. METAB OLIC PANEL (14) ALT (SGPT) 14 IU/L 0-44 Not Available [facility] ([facility]) [address], [place], [address], 12/06/2023 16:10:28 12/04/19 24 12/05/2023 QUANT IFERO N-TB GOLD PLUS quantiferon incubation INCUBA TION PERFOR MED. Not Available [facility] ([facility]) [address], [place], [address], 12/06/2023 16:10:28 12/04/19 24 12/05/2023 QUANT IFERO [...] ol for the test. Not Available [facility] ([facility]) [address] [place], [address], 12/06/2023 16:10:28 12/04/19 24 12/06/2023 QUANT IFERO N-TB GOLD PLUS quantiferon TB1 Ag value 0.06 IU/mL Not Available [facility] ([facility]) [address] [place], [address], 12/06/2023 16:10:28 12/04/19 24 12/06/2023 QUANT IFERO N-TB GOLD PLUS quantiferon TB2 Ag value 0.06 IU/mL Not Available [facility] ([facility]) [address] [place], [address], 12/06/2023 16:10:28 12/04/19 24 12/06/2023 QUANT IFERO N-TB GOLD PLUS quantiferon nil value 0.05 IU/mL Not Available [facility] ([facility]) [address] [place], [address], 12/06/2023 16:10:28 12/04/19 24 12/06/2023 QUANT IFERO N-TB GOLD PLUS quantiferon mitogen value >10.00 IU/mL Not Available [facility] ([facility]) [address] [place], [address], 12/06/2023 16:10:28 12/04/19 24 12/06/2023 QUANT IFERO [...] y metho dolog y Not Available [facility] ([facility]) [address] [place], [address], 12/06/2023 16:10:28 12/04/19 24 12/05/2023 HEPAT ITIS B SURF AB QUANT hepatitis B surf Ab quant <3.1 mIU/m L immuni ty>9.9 below low normal Statu s of Immun ity Anti- HBs Level ----- ----- ----- --- ----- ----- ---- Incon siste nt with Immun ity 0.0 - 9.9 Consi stent with Immun ity >9.9 Not Available [facility] ([facility]) [address], [place], [address], 12/06/2023 16:10:29 12/04/19 24 12/05/2023 VITAM IN [...] IOM (Inst itute of Medic ine). 2009. Whitney ry refer ence valdemar es for calci um and D. Fuentes hein [place]: The Natio nal [facility] Press . 2. Radames valdez MF, Ijeoma chau [place], Renetta off-F errar i BAUTISTA, et al. Evalu ation , treat ment, and preve ntion of vitam in D defic iency : an Endoc rine Socie ty clini reuben pract ice guide line. JCEM. 2010; 96(7) :1911 -30. Not Available [facility] ([facility]) [address], [place], [address], 12/06/2023 16:10:30 12/04/19 24 12/05/2023 SEDIM ENTAT ION RATE- WESTE RGREN sedimentatio n rate-westerg ahmet 29 mm/HR 0-30 Not Available [facility] ([facility]) [address], [place], [address], 12/06/2023 16:10:31 12/04/19 24 12/05/2023 HBSAG SCREE N HBsAg screen NEGATI VE negati ve Not Available [facility] ([facility]) [address], [place], [address], 12/06/2023 16:10:32 12/04/19 24 12/05/2023 C-ANN MARIE CTIVE PROTE IN, QUANT C-reactive protein, quant <1 mg/L 0-10 Not Available [facility] ([facility]) [address], [place], [address], 12/06/2023 16:10:32 06/07/20 24 06/08/2024 CBC WITH DIFFE RENTI AL/PL ATELE T WBC 5.4 x10e3 /uL 3.4-10 .8 normal Not Available [facility] ([facility]) [address], [place], [address], 06/08/2024 16:13:11 06/07/20 24 06/08/2024 CBC WITH DIFFE RENTI AL/PL ATELE T RBC 5.09 x10e6 /uL 4.14-5 .80 normal Not Available [facility] ([facility]) [address], [place], [address], 06/08/2024 16:13:11 06/07/20 24 06/08/2024 CBC WITH DIFFE RENTI AL/PL ATELE T hemoglobin 15.2 g/dL 13.0-1 7.7 normal Not Available [facility] ([facility]) [address] [place], [address], 06/08/2024 16:13:11 06/07/20 24 06/08/2024 CBC WITH DIFFE RENTI AL/PL ATELE T hematocrit 45.3 % 37.5-5 1.0 normal Not Available [facility] ([facility]) [address], [place], [address], 06/08/2024 16:13:11 06/07/20 24 06/08/2024 CBC WITH DIFFE RENTI AL/PL ATELE T MCV 89 fL 79-97 normal Not Available [facility] ([facility]) [address], [place], [address], 06/08/2024 16:13:11 06/07/20 24 06/08/2024 CBC WITH DIFFE RENTI AL/PL ATELE T MCH 29.9 pg 26.6-3 3.0 normal Not Available [facility] ([facility]) [address] [place], [address], 06/08/2024 16:13:11 06/07/20 24 06/08/2024 CBC WITH DIFFE RENTI AL/PL ATELE T MCHC 33.6 g/dL 31.5-3 5.7 normal Not Available [facility] ([facility]) [address] [place], [address], 06/08/2024 16:13:11 06/07/20 24 06/08/2024 CBC WITH DIFFE RENTI AL/PL ATELE T RDW 12.2 % 11.6-1 5.4 Not Available [facility] ([facility]) [address] [place], [address], 06/08/2024 16:13:11 06/07/20 24 06/08/2024 CBC WITH DIFFE RENTI AL/PL ATELE T platelets 245 x10e3 /uL 150-45 0 normal Not Available [facility] ([facility]) [address] [place], [address], 06/08/2024 16:13:11 06/07/20 24 06/08/2024 CBC WITH DIFFE RENTI AL/PL ATELE T neutrophils 54 % not estab. normal Not Available [facility] ([facility]) [address], [place], [address], 06/08/2024 16:13:11 06/07/20 24 06/08/2024 CBC WITH DIFFE RENTI AL/PL ATELE T lymphs 35 % not estab. normal Not Available [facility] ([facility]) [address], [place], [address], 06/08/2024 16:13:11 06/07/20 24 06/08/2024 CBC WITH DIFFE RENTI AL/PL ATELE T monocytes 9 % not estab. normal Not Available [facility] ([facility]) [address], [place], [address], 06/08/2024 16:13:11 06/07/20 24 06/08/2024 CBC WITH DIFFE RENTI AL/PL ATELE T eos 1 % not estab. normal Not Available [facility] ([facility]) [address], [place], [address], 06/08/2024 16:13:11 06/07/20 24 06/08/2024 CBC WITH DIFFE RENTI AL/PL ATELE T basos 1 % not estab. normal Not Available [facility] ([facility]) [address], [place], [address], 06/08/2024 16:13:11 06/07/20 24 06/08/2024 CBC WITH DIFFE RENTI AL/PL ATELE T immature cells COOK TORTILLA Not Available [facility] ([facility]) [address], [place], [address], 06/08/2024 16:13:11 06/07/20 24 06/08/2024 CBC WITH DIFFE RENTI AL/PL ATELE T neutrophils (absolute) 2.8 x10e3 /uL 1.4-7. 0 normal Not Available [facility] ([facility]) [address], [place], [address], 06/08/2024 16:13:11 06/07/20 24 06/08/2024 CBC WITH DIFFE RENTI AL/PL ATELE T lymphs (absolute) 1.9 x10e3 /uL 0.7-3. 1 normal Not Available [facility] ([facility]) [address], [place], [address], 06/08/2024 16:13:11 06/07/20 24 06/08/2024 CBC WITH DIFFE RENTI AL/PL ATELE T monocytes(ab solute) 0.5 x10e3 /uL 0.1-0. 9 normal Not Available [facility] ([facility]) [address], [place], [address], 06/08/2024 16:13:11 06/07/20 24 06/08/2024 CBC WITH DIFFE RENTI AL/PL ATELE T eos (absolute) 0.1 x10e3 /uL 0.0-0. 4 normal Not Available [facility] ([facility]) [address], [place], [address], 06/08/2024 16:13:11 06/07/20 24 06/08/2024 CBC WITH DIFFE RENTI AL/PL ATELE T baso (absolute) 0.1 x10e3 /uL 0.0-0. 2 normal Not Available [facility] ([facility]) [address] [place], [address], 06/08/2024 16:13:11 06/07/20 24 06/08/2024 CBC WITH DIFFE RENTI AL/PL ATELE T immature granulocytes 0 % not estab. Not Available [facility] ([facility]) [address], [place], [address], 06/08/2024 16:13:11 06/07/20 24 06/08/2024 CBC WITH DIFFE RENTI AL/PL ATELE T immature grans (abs) 0.0 x10e3 /uL 0.0-0. 1 Not Available [facility] ([facility]) [address], [place], [address], 06/08/2024 16:13:11 06/07/20 24 06/08/2024 CBC WITH DIFFE RENTI AL/PL ATELE T NRBC COOK TORTILLA Not Available [facility] ([facility]) [address], [place], [address], 06/08/2024 16:13:11 06/07/20 24 06/08/2024 CBC WITH DIFFE RENTI AL/PL ATELE T hematology comments: COOK TORTILLA Not Available [facility] ([facility]) [address], [place], [address], 06/08/2024 16:13:11 06/07/20 24 06/08/2024 COMP. METAB OLIC PANEL (14) glucose 83 mg/dL 70-99 normal Not Available [facility] ([facility]) [address], [place], [address], 06/08/2024 16:13:13 06/07/20 24 06/08/2024 COMP. METAB OLIC PANEL (14) BUN 16 mg/dL 8-27 normal Not Available [facility] ([facility]) [address], [place], [address], 06/08/2024 16:13:13 06/07/20 24 06/08/2024 COMP. METAB OLIC PANEL (14) creatinine 0.94 mg/dL 0.76-1 .27 normal Not Available [facility] ([facility]) [address], [place], [address], 06/08/2024 16:13:13 06/07/20 24 06/08/2024 COMP. METAB OLIC PANEL (14) eGFR 85 mL/mi n/1.7 3 >59 normal Not Available [facility] ([facility]) [address] [place], [address], 06/08/2024 16:13:13 06/07/20 24 06/08/2024 COMP. METAB OLIC PANEL (14) BUN/creatini ne ratio 17 10-24 normal Not Available [facility] ([facility]) [address] [place], [address], 06/08/2024 16:13:13 06/07/20 24 06/08/2024 COMP. METAB OLIC PANEL (14) sodium 141 mmol/ L 134-14 4 normal Not Available [facility] ([facility]) [address] [place], [address], 06/08/2024 16:13:13 06/07/20 24 06/08/2024 COMP. METAB OLIC PANEL (14) potassium 4.4 mmol/ L 3.5-5. 2 normal Not Available [facility] ([facility]) [address], [place], [address], 06/08/2024 16:13:13 06/07/20 24 06/08/2024 COMP. METAB OLIC PANEL (14) chloride 105 mmol/ L 96-106 normal Not Available [facility] ([facility]) [address] [place], [address], 06/08/2024 16:13:13 06/07/20 24 06/08/2024 COMP. METAB OLIC PANEL (14) carbon dioxide, total 23 mmol/ L 20-29 normal Not Available [facility] ([facility]) [address] [place], [address], 06/08/2024 16:13:13 06/07/20 24 06/08/2024 COMP. METAB OLIC PANEL (14) calcium 8.6 mg/dL 8.6-10 .2 normal Not Available [facility] ([facility]) [address] [place], [address], 06/08/2024 16:13:13 06/07/20 24 06/08/2024 COMP. METAB OLIC PANEL (14) protein, total 7.2 g/dL 6.0-8. 5 normal Not Available [facility] ([facility]) [address] [place], [address], 06/08/2024 16:13:13 06/07/20 24 06/08/2024 COMP. METAB OLIC PANEL (14) albumin 4.0 g/dL 3.8-4. 8 normal Not Available [facility] ([facility]) [address] [place], [address], 06/08/2024 16:13:13 06/07/20 24 06/08/2024 COMP. METAB OLIC PANEL (14) globulin, total 3.2 g/dL 1.5-4. 5 Not Available [facility] ([facility]) [address] [place], [address], 06/08/2024 16:13:13 06/07/20 24 06/08/2024 COMP. METAB OLIC PANEL (14) bilirubin, total 0.3 mg/dL 0.0-1. 2 normal Not Available [facility] ([facility]) [address] [place], [address], 06/08/2024 16:13:13 06/07/20 24 06/08/2024 COMP. METAB OLIC PANEL (14) alkaline phosphatase 92 IU/L 44-121 normal Not Available [facility] ([facility]) [address] [place], [address], 06/08/2024 16:13:13 06/07/20 24 06/08/2024 COMP. METAB OLIC PANEL (14) AST (SGOT) 15 IU/L 0-40 normal Not Available [facility] ([facility]) [address] [place], [address], 06/08/2024 16:13:13 06/07/20 24 06/08/2024 COMP. METAB OLIC PANEL (14) ALT (SGPT) 11 IU/L 0-44 normal Not Available [facility] ([facility]) [address], [place], [address], 06/08/2024 16:13:13 06/07/20 24 06/08/2024 VITAM IN [...] Fuentes hein [place]: The [facility] . 2. Radames valdez MF, Ijeoma chau NC, Renetta off-F errar i BAUTISTA, et al. Evalu ation , treat ment, and preve ntion of vitam in D defic iency : an Endoc rine Socie ty clini reuben pract ice guide line. JCEM. 2010; 96(7) :1911 -30. Not Available [facility] ([facility]) [address], [place], [address], 06/08/2024 16:13:14 06/07/20 24 06/08/2024 SEDIM ENTAT ION RATE- WESTE RGREN sedimentatio n rate-westerg ahmet 35 mm/HR 0-30 above high normal Not Available [facility] ([facility]) [address], [place], [address], 06/08/2024 16:13:15 06/07/20 24 06/08/2024 C-ANN MARIE CTIVE PROTE IN, QUANT C-reactive protein, quant 2 mg/L 0-10 normal Not Available [facility] ([facility]) [address], [place], [address], 06/08/2024 16:13:16 06/07/20 24 06/07/2024 PLEAS E NOTE please note Commen t The date and/o r time of colle ction was not indic ated on the requi sitio n as requi red by state and rocio al law. The date of recei pt of the speci men was used as the colle ction date if not suppl ied. Not Available [facility] ([facility]) [address], [place], [address], 06/08/2024 16:13:17 Result Notes None recorded. Problems Name Problem SNOMED Code Status Onset Date Resolution Date Notes Provider Name and Address Organization Details Recorded Time Constipation 45716841 Active 2023 Dewayne Michael PA-C [address] , [place], [address] , [facility] & [place] 14:11:57 Ulcerative colitis 09614799 Active 2023 Dewayne Michael PA-C [address] , [place], [address] , [facility] & [place] 4 13:57:51 Acid reflux 300792927 Active 2023 Dewayne Michael PA-C [address] , [place], [address] , [facility] & [place] 4 14:46:10 Problem Notes None recorded. Procedures Surgical History Date Name Laterality Status Provider Name and Address Organization Details Recorded Time Back Surgery completed Susu Parikh [facility] & [place] 12/04/2023 13:24:00 Imaging Results None recorded. Procedure [...] in Arterial blood by Pulse oximetry Systolic And Diastolic Provider Name and Address Organization Details Last Updated DateTime 175.26 cm 29.5 kg/m2 28724.4 7 g 97.6 [degF] 78 /min 78 /min 98 % 98 % 148/97 mm[Hg] Susu Parikh [facility] & [place] 13:19:28 Date Recorded Body height Heart rate Systolic And Diastolic Provider Name and Address Organization Details Last Updated DateTime 06/07/2024 175.26 cm 87 /min 115/85 mm[Hg] Susu De Los Santos [facility] & [place] 06/07/2024 13:34:09 Social History Question Answer Notes LastModified by [employer] Details LastModified Time Tobacco Smoking Status Never Smoker Susu garzon [facility] & [place] 12/04/2023 13:20:51 What Is Your Level Of Caffeine Consumption? Moderate [email or web address] Information not available 12/04/2023 Sex: Unknown Functional Status Question Answer Note LastModified by [employer] Details LastModified Time Do you use any illicit or recreational drugs? No Information not available 12/04/2023 What is your level of alcohol consumption? Occasional [email or web address] Information not available 12/04/2023 Mental Status None recorded. Family History Nothing Reported. Medical History No medical history recorded. Past Encounters Encounter ID Performer Location Encounter Start Date Encounter Closed Date Diagnosis/Indication Diagnosis SNOMED-CT Code Diagnosis ICD10 Code Diagnosis Note [id number] Dewayne Michael PA-C [facility] [address] [place] [address] 12/04/2023 13:05:56 12/04/2023 15:14:41 Ulcerative colitis 22638241 K51.90 Acid reflux 978605271 K2 1.9 [id number] Dewayne Michael PA-C [facility] [address] [address] 06/07/2024 13:06:35 06/07/2024 14:43:37 Ulcerative colitis 73806503 K51.90 Acid reflux 900498294 K2 1.9 Constipation 67101840 K5 9.00 Health Concerns Section Related Observation LastModified by Organization Detai ls LastModified Time None Recorded Concern Status LastModified by Organization Details LastModified Time None Recorded Advance Directives Directive None Recorded Payers Insurance Date Sequence Insurance Name Policy Number Policy Sparks Covered Member ID Sparks Member ID Guarantor Name 06/07/2024 1 [place] Simba Cuevas [id number] Simba Cuevas 06/29/2024 2 FOR LIFE ( - MEDICARE SUPPLEMENT) Simba Cuevas [id number] Simba Cuevas Notes Date Note Type Note Provider Name and Address Organization Details Recorded Time 12/04/2023 text/html Mr. Cuevas is a kady ashley 73-year-old male with past medical history [...] 8 weeks and receives the infusions at [facility]. He reports occasional constipation and [...] time, but it has since been stopped. Dewayne Michael PA-C [address] [facility], [place], [address], [facility] & [place] 12/04/2023 22:10:36 06/07/2024 text/html PREVIOUS (12/04/23 ): [...] 8 weeks and receives the infusions at [facility]. He reports occasional constipation and [...] has continued q8 week Entyvio infusions at [facility]. He complains of of intermittent constipation and gas. He denies abdominal pain, diarrhea, or bloody stools. He is taking Miralax as needed and will go 3-4 days between BMs despite this, then will eventually have a large amount of soft to liquid stools. Dewayne Michael PA-C [address], [place], [address], [facility] [place] 06/07/2024 18:39:06
--- OUTSIDE RECORDS SUMMARY | 2025-01-27 13:09 | XMS_ITS | Encounter Summary ---
Author Organization [employer] ([place], [place], [place], [place]) Address [address] [place] [address] Care Team Providers Care Rubber Stamps And Dies Supervisor Name Role Phone Unavailable Primary Care Provider Unavailabl e Encounter Details Date Type Department Care Team (Late st Contact Info) Description 12/22/2018 Transcribed Document [facility] [place] Family Medicine [address] [place] [address] ProviderAgnieszka MD [address], [place] [id number] Social History Tobacco Use Types Packs/Day Years Used Date Smoking Tobacco: Never Assessed Sex and Gender Information Value Date Recorded Sex Assigned at Not on file Legal Sex Male 2:38 PM CDT Gender Identity Not on file Sexual Orientation Not on file documented as of this encounter Miscellaneous Notes * Cerner Conversion Note - Historical ProviderMD - 12/22/2018 1:14 PM CDT [facility] Main OR Preop Summary Primary Physician: HEIDE KAT MD-SNU Finalized Date/Time: 12/22/18 15:35:45 Pt. Name: SIMBA MAYEN JR/Sex: 1950 Male Med Rec #: [id number] Physician: HEIDE KAT MD-DIVYA Financial #: [id number] Pt. Type: I Room/Bed: ASA/3 Admit/Disch: 12/22/18 06:36:00 - Institution: [facility] PreOp Case Times Entry 1 In Preop 12/22/18 07:58:00 Ready for Holding n/a Room Patient Ready for 12/22/18 10:27:00 Surgery Patient Out of Preop 12/22/18 12:34:00 Patient Out of n/a Holding Room Last Modified By: GIANLUCA HERRON RN 12/22/18 15:35:43 [facility] PreOp Case Times Audit 12/22/18 15:35:43 Leather Stripping Machine Operator: GIANLUCAMICHELEOFELIA Modifier: EVELYN <+> 1 Patient Out of Preop Finalized By: GIANLUCA HERRON, RN Document Signatures Signed By: GIANLUCA HERRON RN 12/22/18 15:35 Electronically signed by Taryn [facility] Conversion Hematology Oncology Consultant Cerner at 11/12/2022 9:44 PM CDT documented in this encounter Plan of Treatment Not on file documented as of this encounter Visit Diagnoses Not on filedocumented in this encounter
--- OUTSIDE RECORDS SUMMARY | 2025-01-27 13:09 | XMS_ITS | Encounter Summary ---
Author Organization [employer] ([place], [place], [place], [place]) Address [address] [place] [address] Care Team Providers Care Associate Professor Physician Name Role Phone Unavailable Primary Care Provider Unavailabl e Encounter Details Date Type Department Care Team (Late st Contact Info) Description 11/08/2019 Transcribed Document [facility] [place] Family Medicine [address] [place] [address] ProviderAgnieszka MD [address] [place], [place] [address] Social History Tobacco Use Types Packs/Day Years Used Date Smoking Tobacco: Never Assessed Sex and Gender Information Value Date Recorded Sex Assigned at Not on file Legal Sex Male 2:38 PM CDT Gender Identity Not on file Sexual Orientation Not on file documented as of this encounter Miscellaneous Notes * Cerner Conversion Note - Historical ProviderMD - 11/08/2019 5:00 AM CDT Chart Check - Review Order Profile Entered On: 11/08/2019 5:10 EDT Performed On: 11/08/2019 5:00 EDT by Geno Whipple, RN Chart Check Powerplans Initiated/Discontinued as Appropriate : Yes All Active Orders Reviewed : Yes Geno Whipple RN - 11/08/2019 5:10 EDT documented in this encounter Plan of Treatment Not on file documented as of this encounter Visit Diagnoses Not on filedocumented in this encounter
--- OUTSIDE RECORDS SUMMARY | 2025-01-27 13:09 | XMS_ITS | Encounter Summary ---
Author Organization [employer] ([place], [place], [place], [place]) Address [address] [place] [address] Care Team Providers Care Silica Filter Operator Name Role Phone Unavailable Primary Care Provider Unavailabl e Encounter Details Date Type Department Care Team (Late st Contact Info) Description 11/03/2019 Transcribed Document [facility] [place] Family Medicine [address] [place] [address] ProviderAgnieszka MD [address], [place] [id number] Social History Tobacco Use Types Packs/Day Years Used Date Smoking Tobacco: Never Assessed Sex and Gender Information Value Date Recorded Sex Assigned at Not on file Legal Sex Male 2:38 PM CDT Gender Identity Not on file Sexual Orientation Not on file documented as of this encounter Miscellaneous Notes * Cerner Conversion Note - Historical ProviderMD - 11/03/2019 2:00 AM CDT Technician Terminal And Repeater Details Entered On: 11/03/2019 0:41 EDT Performed On: 11/03/2019 2:00 EDT by Joyce Melendez RN Order Details Order Detail : N/A IV Order Detail : 0 Oxygen Order Detail : 0 Nurse Collect Order Detail : 0 Lift/Transfer : Independent Central Line Order Detail : No Room Service : Not Appropriate Arterial Line : No Joyce Melendez RN - 11/03/2019 0:41 EDT documented in this encounter Plan of Treatment Not on file documented as of this encounter Visit Diagnoses Not on filedocumented in this encounter
--- OUTSIDE RECORDS SUMMARY | 2025-01-27 13:09 | XMS_ITS | Encounter Summary ---
Author Organization [employer] ([place], [place], [place], [place]) Address [address] [place] [address] Care Team Providers Care Occupational Physician Name Role Phone Unavailable Primary Care Provider Unavailabl e Encounter Details Date Type Department Care Team (Late st Contact Info) Description 11/03/2019 Transcribed Document [facility] [place] Family Medicine [address] [place] [address] ProviderAgnieszka MD [address], [place] [phone] Social History Tobacco Use Types Packs/Day Years Used Date Smoking Tobacco: Never Assessed Sex and Gender Information Value Date Recorded Sex Assigned at Not on file Legal Sex Male 2:38 PM CDT Gender Identity Not on file Sexual Orientation Not on file documented as of this encounter Miscellaneous Notes * Cerner Conversion Note - Historical ProviderMD - 11/03/2019 12:44 PM CDT [facility] Authorization Entered On: 11/03/2019 12:44 EDT Performed On: 11/03/2019 12:44 EDT by SIMÓN MUSA RN Primary Insurance Authorization Authorization and Policy Numbers : Insurance 1 Health Plan: MEDICARE Policy Number: [id number] Authorization Number: Insurance 2 Health Plan: FOR LIFE Policy Number: [id number] Authorization Number: Insurance Primary Name : MEDICARE Policy Number: [id number] Authorized Service Begin Date-Primary : 11/02/2019 EDT Historical Authorization Comments-Primary : No Authorization Comments Found SIMÓN MUSA RN - 11/03/2019 12:44 EDT documented in this encounter Plan of Treatment Not on file documented as of this encounter Visit Diagnoses Not on filedocumented in this encounter
--- OUTSIDE RECORDS SUMMARY | 2025-01-27 13:09 | XMS_ITS | Encounter Summary ---
Author Organization [employer] ([place], [place], [place], [place]) Address [address] [place] [address] Care Team Providers Care Ecommerce Analyst Name Role Phone Unavailable Primary Care Provider Unavailabl e Encounter Details Date Type Department Care Team (Late st Contact Info) Description 11/04/2019 Transcribed Document [facility] Family Medicine Count includes the [facility] [address] ProviderAgnieszka MD [address], [place] [phone] Social History Tobacco Use Types Packs/Day Years Used Date Smoking Tobacco: Never Assessed Sex and Gender Information Value Date Recorded Sex Assigned at Not on file Legal Sex Male 2:38 PM CDT Gender Identity Not on file Sexual Orientation Not on file documented as of this encounter Miscellaneous Notes * Cerner Conversion Note - Agnieszka ProviderMD - 11/04/2019 10:45 AM CDT Patient: SIMBA MAYEN JR Age: 69 years Sex: Male : 1950 Associated Diagnoses: None Author: EUGENIO BRAXTON, [facility] 69yoM with Low Back Pain - R/O Osteo PMH: 12/13 PLIF T10-S1, Parkinson's, 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 11/04 planned revision of T9-T10 Rx Consult: Vancomycin MD: David Hernández Dx: Thoracic Osteo goal trough = 15-20 ID: Branden wt = 81kg I/O = 900/1050 NKDA Atb: Vanco / Cefepime (Start 11/01) Labs (Last four charted values) WBC 6.5 (NOV 02) 8.7 (NOV 01) HB L 12.2 (NOV 02) 13.5 (NOV 01) HCT L 37.6 (NOV 02) 43.0 (NOV 01) Plt 280 (NOV 03) 291 (NOV 02) 283 (NOV 01) Na 139 (OCT 08) 137 (NOV 01) K 3.6 (NOV 02) 4.5 (NOV 01) Cl 109 (NOV 02) 106 (OCT 07) CO2 25 (OCT 08) 23 (NOV 01) BUN 15 (NOV 02) [...] (NOV 01) ALB L 2.5 (NOV 01) Calc CrCl = 69ml/min Vitals Signs (last 24 hrs) Last Charted Minimum Maximum Temp 97.8 (NOV 03 06:36) 97.8 (NOV 03 06:36) 98.5 (NOV 02 22:25) Mon HR 110 (NOV 03 06:36) 72 (NOV 02 15:35) 110 (NOV 03 06:36) Resp Rate 18 (NOV 03:36) 17 (NOV 02 15:35) 20 (NOV 02 22:25) SBP H 164 (NOV 03:36) 134 (NOV 02 18:45) H 189 (NOV 03 05:17) DBP H 108 (NOV 03 06:36) 90 (NOV 02 18:45) H 112 (NOV 03 05:17) MAP 128 (NOV 03 06:36) 102 (NOV 02 18:45) 131 (NOV 03 05:17) SpO2 98 (NOV 03:36) 96 (NOV 02 15:35) 98 (NOV 03 06:36) Cultures: 11/01 blood - NGTD 11/01 urine - ordered Levels: 11/02 vanc trough - 17.4 (2019 ~ 2h early. Continue vanc 1.25gm IV q12h) 10/31 CT Lumbar / Thoracic - CT [...] Plan: 1) Continue Vancomycin 1250mg (~15mg/kg) IV q12h, trough is within goal range. 2) Monitor for changes in renal function and culture results. 3) Rx to follow -Planned surgical repair 11/04 with intraop cultures Thank You, Eugenio Braxton PharmD documented in this encounter Plan of Treatment Not on file documented as of this encounter Visit Diagnoses Not on filedocumented in this encounter
--- OUTSIDE RECORDS SUMMARY | 2025-01-27 13:09 | XMS_ITS | Encounter Summary ---
Author Organization [employer] ([place], [place], [place], [place]) Address [address] [place] [address] Care Team Providers Care Education Analyst Name Role Phone Unavailable Primary Care Provider Unavailabl e Encounter Details Date Type Department Care Team (Late st Contact Info) Description 11/05/2019 Transcribed Document [facility] Family Medicine [address] [place] [address] ProviderAgnieszka MD [address] [place], [place] [phone] Social History Tobacco Use Types Packs/Day Years Used Date Smoking Tobacco: Never Assessed Sex and Gender Information Value Date Recorded Sex Assigned at Not on file Legal Sex Male 2:38 PM CDT Gender Identity Not on file Sexual Orientation Not on file documented as of this encounter Miscellaneous Notes * Cerner Conversion Note - Agnieszka ProviderMD - 11/05/2019 9:27 AM CDT [facility] Main OR Preop Summary Primary Physician: HEIDE KAT MD-U Finalized Date/Time: 11/05/19 12:33:22 Pt. Name: SIMBA MAYEN JR/Sex: 1950 Male Med Rec #: [id number] Physician: LORENA SAGASTUME MD-INT Financial #: [id number] Pt. Type: I Room/Bed: [facility]/ Admit/Disch: 11/02/19 02:59:00 - Institution: [facility] PreOp Case Times Entry 1 In Preop 11/05/19 06:54:00 Ready for Holding n/a Room Patient Ready for 11/05/19 07:32:00 Surgery Patient Out of Preop 11/05/19 08:23:00 Patient Out of n/a Holding Room Last Modified By: Danelle Parekh, Nurse Retail Maintenance Technician 11/05/19 12:33:18 [facility] PreOp Case Times Audit 11/05/19 12:33:18 Washcloth Folder: [email or web address] Modifier: [id number] <+> 1 Patient Out of Preop Finalized By: Danelle Parekh, Nurse Horse Trekking Guide Signatures Signed By: Danelle Parekh, Nurse Retail Maintenance Technician 11/05/19 12:33 documented in this encounter Plan of Treatment Not on file documented as of this encounter Visit Diagnoses Not on filedocumented in this encounter
--- OUTSIDE RECORDS SUMMARY | 2025-01-27 13:09 | XMS_ITS | Encounter Summary ---
Author Organization [email or web address] ([place], [place], [place], [place]) Address [address] [place] [address] Care Team Providers Care Manufacturing Shift Supervisor Name Role Phone Unavailable Primary Care Provider Unavailabl e Encounter Details Date Type Department Care Team (Late st Contact Info) Description 11/05/2019 Transcribed Document [facility] [place] Family Medicine [facility] [place] [address] ProviderAgnieszka MD [address], [place] [phone] Social History Tobacco Use Types Packs/Day Years Used Date Smoking Tobacco: Never Assessed Sex and Gender Information Value Date Recorded Sex Assigned at Not on file Legal Sex Male 2:38 PM CDT Gender Identity Not on file Sexual Orientation Not on file documented as of this encounter Miscellaneous Notes * Cerner Conversion Note - Agnieszka ProviderMD - 11/05/2019 11:19 AM CDT Pain Assessment Entered On: 11/09/2019 4:51 EDT Performed On: 11/09/2019 0:39 EDT by Radha Josue Latent Print Examiner-Health Unit Coord Intervention Information: oxyCODONE Performed by Radha Joseu Latent Print Examiner-Health Unit Coord on 11/08/2019 23:39:00 EDT oxyCODONE,10mg Oral,Pain (Moderate 4-6) Pain Assessment Pain Assessment : Follow-up assessment Pain Scale Goal : 2 Pain Scale Used : 0-10 Scale Radha Josue Care Asst-Health Unit Coord - 11/09/2019 4:50 EDT Pain Scale Intensity : 1 Radha Josue Latent Print Examiner-Health Unit Coord - 11/09/2019 4:50 EDT Image 4 - Images currently included in the form version of this document have not been included in the text rendition version of the form. documented in this encounter Plan of Treatment Not on file documented as of this encounter Visit Diagnoses Not on filedocumented in this encounter
--- OUTSIDE RECORDS SUMMARY | 2025-01-27 13:09 | XMS_ITS | Encounter Summary ---
Author Organization [employer] ([place], [place], [place], [place]) Address [address] [place] [address] Care Team Providers Care Laboratory Worker Name Role Phone Unavailable Primary Care Provider Unavailabl e Encounter Details Date Type Department Care Team (Late st Contact Info) Description 11/07/2019 Transcribed Document [facility] [address] [place] [address] ProviderAgnieszka MD [address], [place] [address] Social History Tobacco Use Types Packs/Day Years Used Date Smoking Tobacco: Never Assessed Sex and Gender Information Value Date Recorded Sex Assigned at Not on file Legal Sex Male 2:38 PM CDT Gender Identity Not on file Sexual Orientation Not on file documented as of this encounter Miscellaneous Notes * [employer]ner Conversion Note - Historical ProviderMD - 11/07/2019 5:00 AM CDT Chart Check - Review Order Profile Entered On: 11/07/2019 5:13 EDT Performed On: 11/07/2019 5:00 EDT by Geno Whipple, RN Chart Check Powerplans Initiated/Discontinued as Appropriate : Yes All Active Orders Reviewed : Yes Geno Whipple RN - 11/07/2019 5:13 EDT documented in this encounter Plan of Treatment Not on file documented as of this encounter Visit Diagnoses Not on filedocumented in this encounter
--- OUTSIDE RECORDS SUMMARY | 2025-01-27 13:09 | XMS_ITS | Encounter Summary ---
Author Organization [employer] ([place], [place], [place], [place]) Address [address] [place] [address] Care Team Providers Care Adaptive Physical Education Teacher Name Role Phone Unavailable Primary Care Provider Unavailabl e Encounter Details Date Type Department Care Team (Late st Contact Info) Description 11/03/2019 Transcribed Document [facility] [place] Family Medicine [address] [place] [address] ProviderAgnieszka MD [address], [place] [id number] Social History Tobacco Use Types Packs/Day Years Used Date Smoking Tobacco: Never Assessed Sex and Gender Information Value Date Recorded Sex Assigned at Not on file Legal Sex Male 2:38 PM CDT Gender Identity Not on file Sexual Orientation Not on file documented as of this encounter Miscellaneous Notes * Cerner Conversion Note - Historical ProviderMD - 11/03/2019 11:29 AM CDT Treatment Intervention, OT Entered On: 11/04/2019 11:15 EDT Performed On: 11/04/2019 11:05 EDT by JESSICA ROSENBAUM OTR/L General Information, OT Patient Orders : Order Date Order Ordering 11/02/2019 03:01 OT Evaluation and Treatment Ordered By: LORENA SAGASTUME MD-INT 11/03/2019 11:29 Occupational Therapy Additional Tx Ordered By: Active Diagnoses : 11/02/2019 12:00 Back pain 11/02/2019 12:00 Dorsalgia, unspecified 11/02/2019 12:00 Osteomyelitis, unspecified Admission Date : 11/02/2019 02:59 Personal Devices : Personal Devices Glasses Assistive Devices : Assistive Devices No Devices Recorded JESSICA ROSENBAUM OTR/L - 11/04/2019 13:16 EDT Visit Type, OT : Treatment Note Therapy Diagnosis, OT : Decline in ADLs/functional mobility due to back pain. Possible sx intervention, unknown date. Precautions in Place : Fall prevention measures, Log roll precautions JESSICA ROSENBAUM OTR/L - 11/04/2019 11:10 EDT General Status Patient Received Status : Supine in bed Treatment Start Time : 11/04/2019 10:35 EDT Patient Left Status : Up in chair, RN/PCT informed, All needs met and within reach RN/PCT Informed Comment : MY [place] Treatment End Time : 11/04/2019 11:05 EDT Treatment Time : 30 Minute(s) JESSICA ROSENBAUM OTR/L - 11/04/2019 13:16 EDT Self Care/Home Management, OT Grooming Assist Level, OT : Supervision or set-up Grooming Device Comment, OT : CGA/Mariza standing at sink. Sup for ADL tasks. JESSICA ROSENBAUM OTR/L - 11/04/2019 13:16 EDT Functional Mobility Mobility Grid Supine to Sit : Rehab Moderate assistance (Comment: log roll [JESSICA ROSENBAUM OTR/L - 11/04/2019 13:16 EDT] ) Sit to Stand : Rehab Minimal assistance (Comment: RW [JESSICA ROSENBAUM OTR/L - 11/04/2019 13:16 EDT] ) Bed to Chair : Rehab Minimal assistance Stand to Sit : Rehab Minimal assistance JESSICA ROSENBAUM OTR/L - 11/04/2019 13:16 EDT Plan of Care, OT OT Tx Plan/Goals Established w Patient : Yes JESSICA ROSENBAUM OTR/L - 11/04/2019 13:16 EDT Family Law Paralegal Goals, OT Grooming LTG Grid Goal #1 Activity : Grooming Assist : Independent, modified Date to Meet : 11/17/2019 EDT Goal Status : Progressing, continue JESSICA ROSENBAUM OTR/L - 11/04/2019 13:16 EDT Bathing LTG Grid Goal #1 Activity : Bathing Assist : Assist, minimal Date to Meet : 11/17/2019 EDT Goal Status : Initial goal JESSICA ROSENBAUM OTR/L - 11/04/2019 13:16 EDT Dressing, Lower Body LTG Grid Goal #1 Activity : Dressing, Lower Body Assist : Assist, minimal Date to Meet : 11/17/2019 EDT Goal Status : Initial goal JESSICA ROSENBAUM, OTR/L - 11/04/2019 13:16 EDT Toilet Transfer LTG Grid Goal #1 Activity : Toilet Transfer, Stand Pivot Sit Assist : Supervision or set up Date to Meet : 11/17/2019 EDT Goal Status : Progressing, continue JESSICA ROSENBAUM, OTR/L - 11/04/2019 13:16 EDT Bed Mobility/ Bed Transfer LTG Grid Goal #1 Activity : Bed Mobility/Bed Transfer Assist : Assist, minimal Date to Meet : 11/17/2019 EDT Goal Status : Progressing, continue JESSICA ROSENBAUM, OTR/L - 11/04/2019 13:16 EDT Treatment Note Subjective Comment : Agreeable. Patient's Response to Treatment : Pt very lethargic today. Decreased pain. Increased difficulty standing and ambulating. BP running high. 153/102 last reading in supine. Taken by EXOTIC DANCER. 144/103 seated EOB. Pt left up in chair, all needs in reach. Additional Objective Information : Pt came to EOB log roll with heraclio Mcdaniel. Pt stood on second attempt with JOSÉ Dawkins. Pt ambulating into bathroom with CGAMinA. Pt appearing very lethargic and debilitated. Pt states he does not feel dizzy. Pt stood in front of bathroom sink for ADL tasks with chair placed behind for safety. Pt completed oral care with set up. Assessment : Progressing. Plan for Treatment : cont poc ILSASERAJESSICA R, OTR/L - 11/04/2019 13:16 EDT Pain Assessment Pain Scaled Used : 0-10 Pain scale Pain Score Post-Intervention. : 0 JESSICA ROSENBAUM OTR/L - 11/04/2019 13:16 EDT Image 1 - Images currently included in the form version of this document have not been included in the text rendition version of the form. St. [facility] OT Charges OT Selfcare/Hm Mgmt Ea 15 Min : 2 JESSICA ROSENBAUM OTR/L - 11/04/2019 13:16 EDT documented in this encounter Plan of Treatment Not on file documented as of this encounter Visit Diagnoses Not on filedocumented in this encounter
--- OUTSIDE RECORDS SUMMARY | 2025-01-27 13:09 | XMS_ITS | Encounter Summary ---
Author Organization [employer] ([place], [place], [place], [place]) Address [address] [place] [address] Care Team Providers Care Crystallizer Operator Name Role Phone Unavailable Primary Care Provider Unavailabl e Encounter Details Date Type Department Care Team (Late st Contact Info) Description 11/03/2019 Transcribed Document [facility] [place] [address] [place] [address] ProviderAgnieszka MD [address] [place], [place] [id number] Social History Tobacco Use Types Packs/Day Years Used Date Smoking Tobacco: Never Assessed Sex and Gender Information Value Date Recorded Sex Assigned at Not on file Legal Sex Male 2:38 PM CDT Gender Identity Not on file Sexual Orientation Not on file documented as of this encounter Miscellaneous Notes * Cerner Conversion Note - Agnieszka ProviderMD - 11/03/2019 2:41 PM CDT UM Authorization Entered On: 11/03/2019 14:42 EDT Performed On: 11/03/2019 14:41 EDT by OC PRINCE Tester Armature [employer] Primary Insurance Authorization Authorization and Policy Numbers : Insurance 1 Health Plan: MEDICARE Policy Number: [id number] Authorization Number: Insurance 2 Health Plan: [employer] Policy Number: [id number] Authorization Number: Insurance Primary Name : MEDICARE Policy Number: [id number] Authorized Service Begin Date-Primary : 11/02/2019 EDT Authorization Comments-Primary : patient is scheduled for Lumbar Fusion Posterior on 11/05/2019 Pt is currently admitted as an inpt already on 4A. Historical Authorization Comments-Primary : No Authorization Comments Found OC PRINCE, Tester [employer] - 11/03/2019 14:41 EDT documented in this encounter Plan of Treatment Not on file documented as of this encounter Visit Diagnoses Not on filedocumented in this encounter
--- OUTSIDE RECORDS SUMMARY | 2025-01-27 13:09 | XMS_ITS | Encounter Summary ---
Author Organization [employer] ([place], [place], [place], [place]) Address [address] [place] [address] Care Team Providers Care Concrete Float Maker Name Role Phone Unavailable Primary Care Provider Unavaillora e Encounter Details Date Type Department Care Team (Late st Contact Info) Description 12/22/2018 Transcribed Document [facility] [place] Family Medicine [facility] [place] [address] ProviderAgnieszka MD [address] [place] [address] Social History Tobacco Use Types Packs/Day Years Used Date Smoking Tobacco: Never Assessed Sex and Gender Information Value Date Recorded Sex Assigned at Not on file Legal Sex Male 2:38 PM CDT Gender Identity Not on file Sexual Orientation Not on file documented as of this encounter Miscellaneous Notes * Cerner Conversion Note - Historical ProviderMD - 12/22/2018 5:40 PM CDT Evaluation, Occupational Therapy Entered On: 12/23/2018 11:13 EDT Performed On: 12/23/2018 10:48 EDT by CHRISSIE FALK, OTR/L General Information, OT Visit Type, OT : Initial evaluation Patient Orders : Order Date Order Ordering 12/22/2018 17:40 Occupational Therapy Evaluation and Treatme Ordered By: HEIDE KAT MD-SN Active Diagnoses : No Qualifying Diagnoses Therapy Diagnosis, OT : Decreased I with ADLs and fxnl mobility secondary to radiculopathy, resulting in fxnl decline. Onset of Problem, OT : 12/23/2018 EDT Admission Date : 12/22/2018 06:36 Co-treated by, OT : Physical Therapist Personal Devices : Personal Devices No Devices Recorded Assistive Devices : Assistive Devices No Devices Recorded General Information Comment, OT : 68 yo male who was admitted to [facility] on 12/22 for radiculopathy. s/p L2-S1 laminectomy, L2-S1 PLIF, and T10-S1 PLIF. PMHx: arthritis, colitis, DKD, and Parkinson disease. CHRISSIE FALK OTR/Lc - 12/23/2018 11:03 EDT General Status Patient Received Status : Supine in bed Treatment Start Time : 12/23/2018 10:20 EDT Patient Left Status : Up in chair, RN/PCT informed, Family/Visitors at bedside, Communication board completed, All needs met and within reach RN/PCT Informed Comment : MY [place] Treatment End Time : 12/23/2018 10:48 EDT Treatment Time : 28 Minute(s) CHRISSIE FALK OTR/Lc - 12/23/2018 11:03 EDT History and Environment, OT Living Situation, Therapy : Home Patient Lives With : Spouse Persons Assisting Patient at Home : Spouse Professional Skilled Services : None Persons Providing Information : Patient, Spouse Home Equipment, Therapy : None Home Setup : One story Stairs : Yes Stair Location(s) : Outside Outside Stairs, Number of Steps : 1 Railing Outside : No Ramp : No CHRISSIE FALK OTR/Lc - 12/23/2018 11:03 EDT Prior LOF Bathing, OT : Independent Prior LOF Bed Mobility : Independent Prior LOF Upper Body Dressing, OT : Independent Prior LOF Lower Body Dressing, OT : Independent Prior LOF Toileting : Independent Prior LOF Transfer : Independent Prior LOF Grooming, OT : Independent Prior LOF for IADLs, OT : Independent CHRISSIE FALK OTR/Lc - 12/23/2018 11:03 EDT Upper Extremity Upper Extremity Dominance : Right Right UE Active ROM : WFL Right UE Strength : WFL Left UE Active ROM : WFL Left UE Strength : WFL Upper Extremity Strength Impaired : No Right UE Strength : WFL Left UE Strength : WFL Upper Extremity Comment : BUE ROM and MMT WFL CHRISSIE FALK OTR/Lc - 12/23/2018 11:03 EDT Self Care/Home Management, OT Self Feeding Assist Level, OT : Supervision or set-up Grooming Assist Level, OT : Supervision or set-up Bathing Assist Level, OT : Assist, moderate Upper Body Dressing Assist Level, OT : Assist, minimal Lower Body Dressing Assist Level, OT : Assist, maximal Toileting Assist Level : Assist, maximal Toilet Transfer Assist Level : Assist, moderate CHRISSIE FALK, OTR/L 12/23/2018 11:03 EDT Mobility Device/Prosthesis/Wt Bearing Weight Bearing Status Maintained : Yes Weight Bearing Status : As tolerated CHRISSIE FALK, OTR/L 12/23/2018 11:03 EDT Functional Mobility Mobility Grid Supine to Sit : Rehab Moderate assistance Sit to Stand : Rehab Minimal assistance (Comment: x2 [CHRISSIE FALK, OTR/L - 12/23/2018 11:03 EDT] ) Stand to Sit : Rehab Minimal assistance (Comment: x2 [CHRISSIE FALK, OTR/L 12/23/2018 11:03 EDT] ) CHRISSIE FALK OTR/L 12/23/2018 11:03 EDT Sit to Stand Device : Belt, gait, Walker, front wheel Stand to Sit Device : Belt, gait, Walker, front wheel CHRISSIE FALK, OTR/L 12/23/2018 11:03 EDT Cognition Assessment, OT Orientation : Oriented x 4 Cognition Assessment, OT : Intact Comprehension Assessment, OT : Intact CHRISSIE FALK OTR/L 12/23/2018 11:03 EDT Education OT Occupational Therapy Education Grid Activity of Daily Living Training : Needs further teaching Functional Mobility Training : Needs further teaching Role of Occupational Therapy : Verbalizes understanding CHRISSIE FALK OTR/L 12/23/2018 11:03 EDT Teaching/Learning Assessment Barriers To Learning : None evident Individuals Taught : Patient Readiness to Learn : Cooperative Readiness to Learn : Explanation Learning Style Preferences Patient : None CHRISSIE FALKSASCHA/Lc 12/23/2018 11:03 EDT Indication Assessment, OT Occupational Therapy Indicated : Yes Problem List, OT : Impaired, bed mobility, Impaired, activities daily living, Impaired, endurance tolerance, Impaired functional mobility, Impaired, standing balance, Impaired, strength, Impaired, transfers Potential Barriers, OT : None evident Rehabilitation Potential, OT : Good RADHACHRISSIE TAVERAS OTR/L - 12/23/2018 11:03 EDT Plan of Care, OT OT Tx Plan/Goals Established w Patient : Yes OT Frequency Rehab : Five days per week OT Duration Rehab : Fourteen days OT Treatments Planned : Activities of daily living, Balance training, Functional mobility training, Safety education, Therapeutic activities, Therapeutic exercises CHRISSIE FALK OTR/L - 12/23/2018 11:03 EDT Excellence Coach Goals, OT Grooming LTG Grid Goal #1 Activity : Grooming Cues : No cues Assist : Independent, modified Date to Meet : 01/06/2019 EDT Goal Status : Initial goal Comment : Standing at sink CHRISSIE FALK OTR/L - 12/23/2018 11:03 EDT Bathing LTG Grid Goal #1 Activity : Bathing Cues : No cues Assist : Supervision or set up Equipment : Long handled sponge Date to Meet : 01/06/2019 EDT Goal Status : Initial goal CHRISSIE AFLK OTR/L - 12/23/2018 11:03 EDT Dressing, Lower Body LTG Grid Goal #1 Activity : Dressing, Lower Body Cues : No cues Assist : Supervision or set up Equipment : Long Handled Utility Aide, Sock aid, Long handled shoehorn Date to Meet : 01/06/2019 EDT Goal Status : Initial goal CHRISSIE FALK OTR/L - 12/23/2018 11:03 EDT Toilet Transfer LTG Grid Goal #1 Activity : Toilet Transfer, Ambulatory Cues : No cues Assist : Supervision or set up Equipment : Rolling walker Date to Meet : 01/06/2019 EDT Goal Status : Initial goal CHRISSIE FALK OTR/L - 12/23/2018 11:03 EDT Bed Mobility/ Bed Transfer LTG Grid Goal #1 Activity : Bed Mobility/Bed Transfer Cues : No cues Assist : Supervision or set up Date to Meet : 01/06/2019 EDT Goal Status : Initial goal CHRISSIE FALK OTR/L - 12/23/2018 11:03 EDT Other LTG Grid Goal #1 Goal #2 Goal : Pt will sit EOB unsupported for >8 mins for fxnl task without LOB or need for rest break. Pt will complete fxnl mobility of household distance with RWx and supervision without LOB or need for rest break. Date to Meet : 01/06/2019 EDT 01/06/2019 EDT Goal Status : Initial goal Initial goal CHRISSIE FALK MARTINR/Lc - 12/23/2018 11:03 EDT CHRISSIE FALK SASCHA/Lc - 12/23/2018 11:03 EDT Treatment Note Subjective Comment : Pt and RN okay'd OT eval at this time Patient's Response to Treatment : Pt tolerated OT eval well; allow extra time for fxnl mobility and transfers secondary to pt's history of Parkinson disease Additional Objective Information : Pt supine in bed upon OT arrival. Pt to EOB with Mod A. Pt required Max A to don back brace. Pt stood with RWx and Min Ax2. Pt walked ~70ft with RWx, Min Ax2, verbal cues for navigation of walker and gait pattern, and chair follow for safety. Pt sat in chair with Min Ax2. Pt returned to room and left sitting up in chair with call light/phone within reach and family present. Assessment : Pt would benefit from skilled OT services to improve fxnl status. Plan for Treatment : See POC tab CHRISSIE FALK SASCHA/Lc - 12/23/2018 11:03 EDT Pain Assessment Pain Scaled Used : 0-10 Pain scale Pain Score Pre-Intervention : 0 Pain Score During-Intervention : 0 Pain Score Post-Intervention. : 0 CHRISSIE FALK SASCHA/Lc - 12/23/2018 11:03 EDT Image 1 - Images currently included in the form version of this document have not been included in the text rendition version of the form. Anticipated Discharge Needs, OT/PT Anticipated Discharge to : Home, with home health, Unit, rehabilitation, Other: Level 1; pending progress Anticipated Home Equipment : Commode, Walker Recommend Continued Therapy at Discharge : Yes CHRISSIE FALKSASCHA/Lc - 12/23/2018 11:[address] Cha OT Charges OT Ther Activities Ea 15 Min : 1 OT Eval Moderate Complexity : 1 CHRISSIE FALKSASCHA/Lc - 12/23/2018 11:03 EDT documented in this encounter Plan of Treatment Not on file documented as of this encounter Visit Diagnoses Not on filedocumented in this encounter
--- OUTSIDE RECORDS SUMMARY | 2025-01-27 13:09 | XMS_ITS | Encounter Summary ---
Author Organization [employer] ([place], [place], [place], [place]) Address [address] [place] [address] Care Team Providers Care Custom Protection Officer Name Role Phone Unavailable Primary Care Provider Unavailabl e Encounter Details Date Type Department Care Team (Late st Contact Info) Description 11/05/2019 Transcribed Document [facility] [place] [address] [place] [address] ProviderAgnieszka MD [address], [place] [phone] Social History Tobacco Use Types Packs/Day Years Used Date Smoking Tobacco: Never Assessed Sex and Gender Information Value Date Recorded Sex Assigned at Not on file Legal Sex Male 2:38 PM CDT Gender Identity Not on file Sexual Orientation Not on file documented as of this encounter Miscellaneous Notes * Cerner Conversion Note - Historical ProviderMD - 11/05/2019 10:00 PM CDT Pain Assessment Entered On: 11/06/2019 1:58 EDT Performed On: 11/05/2019 22:29 EDT by Faye Parekh RN Intervention Information: acetaminophen Performed by Faye Parekh RN on 11/05/2019 21:29:00 EDT acetaminophen,650mg Oral Pain Assessment Pain Assessment : Follow-up assessment Pain Scale Goal : 4 Pain Scale Used : 0-10 Scale Faye Parekh RN - 11/06/2019 1:58 EDT Pain Scale Intensity : 3 Faye Parekh RN - 11/06/2019 1:58 EDT Image 4 - Images currently included in the form version of this document have not been included in the text rendition version of the form. documented in this encounter Plan of Treatment Not on file documented as of this encounter Visit Diagnoses Not on filedocumented in this encounter
--- OUTSIDE RECORDS SUMMARY | 2025-01-27 13:09 | XMS_ITS | Encounter Summary ---
Author Organization [employer] ([place], [place], [place], [place]) Address [address] [place] [address] Care Team Providers Care Mds Manager Name Role Phone Unavailable Primary Care Provider Unavailabl e Encounter Details Date Type Department Care Team (Late st Contact Info) Description 11/06/2019 Transcribed Document [facility] [place] [address] [place] [address] ProviderAgnieszka MD [address], [place] [phone] Social History Tobacco Use Types Packs/Day Years Used Date Smoking Tobacco: Never Assessed Sex and Gender Information Value Date Recorded Sex Assigned at Not on file Legal Sex Male 2:38 PM CDT Gender Identity Not on file Sexual Orientation Not on file documented as of this encounter Miscellaneous Notes * Cerner Conversion Note - Historical ProviderMD - 11/06/2019 10:53 AM CDT Event Note Entered On: 11/06/2019 10:56 EDT Performed On: 11/06/2019 10:53 EDT by MOE PAIGE RN Event Note Event Date/Time : 11/06/2019 10:50 EDT Event Location : Other: Accessing chart for documentation verification Event Details : Other: accessing chart Description of Event : Accessed chart for documentation verification on neurological assessment during PACU time on 11/05/19. Per Dr. Becerra request. MOE PAIGE RN - 11/06/2019 10:53 EDT Electronically signed by Gay Centeno Conversion Assurance Senior Manager Insurance [employer] at 11/12/2022 9:42 PM CDT documented in this encounter Plan of Treatment Not on file documented as of this encounter Visit Diagnoses Not on filedocumented in this encounter
--- OUTSIDE RECORDS SUMMARY | 2025-01-27 13:09 | XMS_ITS | Encounter Summary ---
Author Organization [employer] ([place], [place], [place], [place]) Address [address] [place] [address] Care Team Providers Care Boiler Installer Name Role Phone Unavailable Primary Care Provider Unavailabl e Encounter Details Date Type Department Care Team (Late st Contact Info) Description 12/23/2018 Transcribed Document [facility] [place] [address] ProviderAgnieszka MD [address] [place] [address] Social History Tobacco Use Types Packs/Day Years Used Date Smoking Tobacco: Never Assessed Sex and Gender Information Value Date Recorded Sex Assigned at Not on file Legal Sex Male 2:38 PM CDT Gender Identity Not on file Sexual Orientation Not on file documented as of this encounter Miscellaneous Notes * Cerner Conversion Note - Historical ProviderMD - 12/23/2018 9:40 AM CDT Pain Assessment Entered On: 12/23/2018 10:41 EDT Performed On: 12/23/2018 9:20 EDT by CLIFTON MONTEJO RN Intervention Information: morphine Performed by CLIFTON MONTEJO RN on 12/23/2018 08:20:00 EDT morphine,15mg Oral Pain Assessment Pain Assessment : Follow-up assessment Pain Scale Goal : 4 Pain Scale Used : 0-10 Scale Pain Improved by Intervention : Yes Pain Comment : Pt states, I don't have pain, I feel a little sore CLIFTON MONTEJO RN - 12/23/2018 10:41 EDT Pain Scale Intensity : 0 CLIFTON MONTEJO RN - 12/23/2018 10:41 EDT Image 4 - Images currently included in the form version of this document have not been included in the text rendition version of the form. Electronically signed by Gay Centeno Conversion Airport Operations Duty Manager [employer] at 11/12/2022 9:33 PM CDT documented in this encounter Plan of Treatment Not on file documented as of this encounter Visit Diagnoses Not on filedocumented in this encounter
--- OUTSIDE RECORDS SUMMARY | 2025-01-27 13:09 | XMS_ITS | Encounter Summary ---
Author Organization [employer] ([place], [place], [place], [place]) Address [address] [place] [address] Care Team Providers Care Scouring Machine Operator Name Role Phone Unavailable Primary Care Provider Unavailabl e Encounter Details Date Type Department Care Team (Late st Contact Info) Description 12/22/2018 Transcribed Document [facility] [place] Family Medicine Counts include [address] beds at the [facility] [place] [address] ProviderAgnieszka MD [address], [place] [phone] Social History Tobacco Use Types Packs/Day Years Used Date Smoking Tobacco: Never Assessed Sex and Gender Information Value Date Recorded Sex Assigned at Not on file Legal Sex Male 2:38 PM CDT Gender Identity Not on file Sexual Orientation Not on file documented as of this encounter Miscellaneous Notes * Cerner Conversion Note - Historical ProviderMD - 12/22/2018 10:00 PM CDT Pain Assessment Entered On: 12/23/2018 2:24 EDT Performed On: 12/22/2018 23:12 EDT by Melissa Alexander RN Intervention Information: acetaminophen Performed by Melissa Alexander RN on 12/22/2018 22:12:00 EDT acetaminophen,650mg Oral Pain Assessment Pain Assessment : Follow-up assessment Pain Scale Goal : 4 Pain Scale Used : 0-10 Scale Location : Back Onset : Acute Quality : Throbbing Pain Worsened by : Movement Pain Intervention, Drug : Medicated Pain Improved by Intervention : Yes Melissa Alexander RN - 12/23/2018 2:23 EDT Pain Scale Intensity : 4 Melissa Alexander RN - 12/23/2018 2:23 EDT Image 4 - Images currently included in the form version of this document have not been included in the text rendition version of the form. documented in this encounter Plan of Treatment Not on file documented as of this encounter Visit Diagnoses Not on filedocumented in this encounter
--- OUTSIDE RECORDS SUMMARY | 2025-01-27 13:09 | XMS_ITS | Encounter Summary ---
Author Organization [employer] ([place], [place], [place], [place]) Address [address] [place] [address] Care Team Providers Care Legal Biller Name Role Phone Unavailable Primary Care Provider Unavailabl e Encounter Details Date Type Department Care Team (Late st Contact Info) Description 11/03/2019 Transcribed Document [facility] [place] Family Medicine [address] [place] [address] ProviderAgnieszka MD [address] [place] [address] Social History Tobacco Use Types Packs/Day Years Used Date Smoking Tobacco: Never Assessed Sex and Gender Information Value Date Recorded Sex Assigned at Not on file Legal Sex Male 2:38 PM CDT Gender Identity Not on file Sexual Orientation Not on file documented as of this encounter Miscellaneous Notes * [employer]ner Conversion Note - Historical ProviderMD - 11/03/2019 11:32 AM CDT Treatment Intervention, PT Entered On: 11/04/2019 11:24 EDT Performed On: 11/04/2019 11:23 EDT by LILA PIERCE PT General Information, PT Visit Type, PT : Treatment Note LILA PIERCE PT - 11/04/2019 11:21 EDT Patient Orders : Order Date Order Ordering 11/02/2019 03:01 PT Evaluation and Treatment Ordered By: LORENA SAGASTUME MD-INT 11/03/2019 11:32 PT Additional Treatment Ordered By: LAVERNE OLSON PT Active Diagnoses : 11/02/2019 12:00 Back pain 11/02/2019 12:00 Dorsalgia, unspecified 11/02/2019 12:00 Osteomyelitis, unspecified LILA PIERCE PT - 11/04/2019 12:30 EDT Therapy Diagnosis, PT : Debility LILA PIERCE PT - 11/04/2019 11:21 EDT Admission Date : 11/02/2019 02:59 LILA PIERCE, PT - 11/04/2019 12:30 EDT Assisted by, PT : copier technician/aide LILA PIERCE, PT - 11/04/2019 11:21 EDT Personal Devices : Personal Devices Glasses Assistive Devices : Assistive Devices No Devices Recorded LILA PIERCE, PT - 11/04/2019 12:[address] : Fall prevention measures, Log roll precautions LILA PIERCE, PT - 11/04/2019 11:21 EDT General Status Patient Received Status : Up in chair Treatment Start Time : 11/04/2019 11:00 EDT Patient Left Status : Up in chair, RN/PCT informed, All needs met and within reach Treatment End Time : 11/04/2019 11:23 EDT Treatment Time : 23 Minute(s) LILA PIERCE, PT - 11/04/2019 11:21 EDT Functional Mobility Mobility Grid Supine to Sit : Supervision/set-up Stand to Sit : Supervision/set-up LILA PIERCE, PT - 11/04/2019 11:21 EDT Gait Training/Assessment, PT Weight Bearing Status : Full Gait Assistance Level : Independent, modified Walking Distance : 125' x 2 Ambulatory Devices : Gait belt, Walker, front wheel Gait Deviations : Yes Gait Training Comment : very slow nina but no propulsion, no lob, no festination. His nina became more consistent with distance. LILA PIERCE, PT - 11/04/2019 11:21 EDT Edu Topics Physical Therapy Education Grid Bed Mobility Training : Returns demonstration, Needs further teaching Gait Training : Returns demonstration, Needs further teaching Thermal/Light Modalities : Returns demonstration, Needs further teaching Transfer Training : Returns demonstration LILA PIERCE, PT - 11/04/2019 12:30 EDT Plan of Care, PT PT Tx Plan/Goals Established w Patient : Yes LILA PIERCE, PT - 11/04/2019 12:30 EDT Detention Goals Mobility/Bed Mobility LTG PT Grid Goal #1 Goal #2 Activity : Supine to sit Sit to stand Assist : Independent, modified Independent, modified Date to Meet : 11/17/2019 EDT 11/17/2019 EDT Goal Status : Intial Goal Progressing, continue Comment : via logroll LILA PIERCE, PT - 11/04/2019 12:30 EDT LILA PIERCE, PT - 11/04/2019 12:30 EDT Ambulation LTG Grid Goal #1 Device : Walker, front wheel Distance : 200ft Assist : Independent, modified Date to Meet : 11/17/2019 EDT Goal Status : Progressing, continue LILA PIERCE, PT - 11/04/2019 12:30 EDT Treatment Note Subjective Comment : agreed to work with PT. Anticipates surgery tomorrow. Assessment : The patient is cooperative. He shows some typical Parkinson's signs such as masked face, delayed initaition and slow movement but he requries no physical assistance to perform routine mobility. Plan for Treatment : cont poc LILA PIERCE, PT - 11/04/2019 12:30 EDT Pain Assessment Pain Scaled Used : 0-10 Pain scale Pain Score Pre-Intervention : 3 Pain Score During-Intervention : 5 Pain Score Post-Intervention. : 4 LILA PIERCE PT - 11/04/2019 12:30 EDT Image 1 - Images currently included in the form version of this document have not been included in the text rendition version of the form. Anticipated Discharge Needs, OT/PT Anticipated Discharge to : Unit, rehabilitation, Unit, retirement LILA PIERCE, PT - 11/04/2019 12:[address] [facility] PT Charges Gait Training Each 15 Min : 2 LILA PIERCE PT - 11/04/2019 11:21 EDT Electronically signed by [employer] Applications Programming Lead Cerner at 11/12/2022 9:45 PM CDT documented in this encounter Plan of Treatment Not on file documented as of this encounter Visit Diagnoses Not on filedocumented in this encounter
--- OUTSIDE RECORDS SUMMARY | 2025-01-27 13:09 | XMS_ITS | Encounter Summary ---
Author Organization [employer] ([place], [place], [place], [place]) Address [address] [place] [address] Care Team Providers Care Children'S Program Coordinator Name Role Phone Unavailable Primary Care Provider Unavailabl e Encounter Details Date Type Department Care Team (Late st Contact Info) Description 11/05/2019 Transcribed Document [facility] [place] [facility] [place] [address] ProviderAgnieszka MD [address], [place] [id number] Social History Tobacco Use Types Packs/Day Years Used Date Smoking Tobacco: Never Assessed Sex and Gender Information Value Date Recorded Sex Assigned at Not on file Legal Sex Male 2:38 PM CDT Gender Identity Not on file Sexual Orientation Not on file documented as of this encounter Miscellaneous Notes * Cerner Conversion Note - Historical ProviderMD - 11/05/2019 11:19 AM CDT Pain Assessment Entered On: 11/09/2019 18:55 EDT Performed On: 11/09/2019 16:17 EDT by Teresa Bucio RN Intervention Information: oxyCODONE Performed by Teresa Bucio RN on 11/09/2019 15:17:00 EDT oxyCODONE,5mg Oral,Pain (Mild 1-3) Pain Assessment Pain Assessment : Initial assessment Pain Scale Goal : 2 Pain Scale Used : 0-10 Scale Teresa Bucio RN - 11/09/2019 18:55 EDT Pain Scale Intensity : 2 Teresa Bucio RN - 11/09/2019 18:55 EDT Image 4 - Images currently included in the form version of this document have not been included in the text rendition version of the form. documented in this encounter Plan of Treatment Not on file documented as of this encounter Visit Diagnoses Not on filedocumented in this encounter
--- OUTSIDE RECORDS SUMMARY | 2025-01-27 13:09 | XMS_ITS | Encounter Summary ---
Author Organization [employer] ([place], [place], [place], [place]) Address [address] [place] [address] Care Team Providers Care Program Schedule Clerk Name Role Phone Unavailable Primary Care Provider Unavailabl e Encounter Details Date Type Department Care Team (Late st Contact Info) Description 12/23/2018 Transcribed Document [facility] [place] Family Medicine [address] [place] [address] ProviderAgnieszka MD [address] [place] [address] Social History Tobacco Use Types Packs/Day Years Used Date Smoking Tobacco: Never Assessed Sex and Gender Information Value Date Recorded Sex Assigned at Not on file Legal Sex Male 2:38 PM CDT Gender Identity Not on file Sexual Orientation Not on file documented as of this encounter Miscellaneous Notes * Cerner Conversion Note - Historical ProviderMD - 12/23/2018 12:11 PM CDT Treatment Intervention, PT Entered On: 12/24/2018 15:05 EDT Performed On: 12/24/2018 14:59 EDT by OSMANI RAINEY, KARLEY General Information, PT Visit Type, PT : Treatment Note Patient Orders : Order Date Order Ordering 12/22/2018 17:40 Physical Therapy Eval and Treat Ordered By: HEIDE KAT MD-SNU 12/23/2018 12:11 PT Additional Treatment Ordered By: JACQUI MCGUIRE PT Active Diagnoses : 12/23/2018 00:00 Radiculopathy, lumbar region 12/23/2018 00:00 Scoliosis, unspecified 12/23/2018 00:00 Spinal stenosis, lumbar region without neurogenic claudication Admission Date : 12/22/2018 06:36 Personal Devices : Personal Devices No Devices Recorded Assistive Devices : Assistive Devices No Devices Recorded Precautions in Place : Log roll precautions, Spinal Precautions, Other: Out of bed with brace OSMANI RAINEY PTA 12/24/2018 14:59 EDT General Status Patient Received Status : Supine in bed Treatment Start Time : 12/24/2018 13:30 EDT Patient Left Status : Supine in bed, Family/Visitors at bedside, All needs met and within reach RN/PCT Informed Comment : MY vo'd to treat. Treatment End Time : 12/24/2018 13:53 EDT Treatment Time : 23 Minute(s) OSMANI RAINEY PTA 12/24/2018 14:59 EDT Functional Mobility Mobility Grid Supine to Sit : Rehab Moderate assistance Sit to Stand : Rehab Minimal assistance (Comment: x2 [OSMANI RAINEY PTA 12/24/2018 14:59 EDT] ) Stand to Sit : Rehab Minimal assistance Sit to Supine : Rehab Moderate assistance OSMANI RAINEY PTA 12/24/2018 14:59 EDT Bed Comment : verbal cues for proper log roll but patient has difficulty initiating movement requiring assist OSMANI RAINEY PTA 12/24/2018 14:59 EDT Gait Training/Assessment, PT Weight Bearing Status Maintained : Yes Weight Bearing Status : Full Gait Assistance Level : Assist, minimal Walking Distance : 400ft. Ambulatory Devices : Gait belt, Walker, front wheel Gait Deviations : Yes Left Lower Gait Deviation : Emeli, decreased, Shuffling Right Lower Gait Deviation : Emeli, decreased, Shuffling Gait Training Comment : patient requires assist directing RWx and is unsteady requiring verbal cues for upright posture and for staying up inside RWx; amb with back brace on OSMANI RAINEY PTA 12/24/2018 14:59 EDT Cognitive Treatment, PT Orientation : Oriented x 4 OSMANI RAINEY PTA 12/24/2018 14:59 EDT Edu Topics Physical Therapy Education Grid Gait Training : Returns demonstration, Needs further teaching Role of Physical Therapy : Returns demonstration Transfer Training : Returns demonstration, Needs further teaching OSMANI RAINEY PTA - 12/24/2018 14:59 EDT Indication Assesessment, PT Physical Therapy Indicated : Yes OSMANI RAINEY PTA - 12/24/2018 14:59 EDT Plan of Care, PT PT Tx Plan/Goals Established w Patient : Yes OSMANI RAINEY PTA 12/24/2018 14:59 EDT Short Term Goals Mobility/Bed Mobility STG PT Grid Goal #1 Activity : Supine to sit Assist : Supervision or set-up Date to Meet : 12/30/2018 EDT Goal Status : Progressing, continue BRIGID KARLEY KEEN - 12/24/2018 14:59 EDT Chief Design Engineer Goals Mobility/Bed Mobility LTG PT Grid Goal #1 Activity : Sit to stand Cues : Minimum verbal cues Assist : Supervision or set-up Date to Meet : 01/06/2019 EDT Goal Status : Progressing, continue OSMANI RAINEY PTA - 12/24/2018 14:59 EDT Ambulation LTG Grid Goal #1 Device : Walker, front wheel Distance : 200' Cues : Minimum verbal cues Assist : Supervision or set-up Date to Meet : 01/06/2019 EDT Goal Status : Progressing, continue BRIGID KARLEY KEEN - 12/24/2018 14:59 EDT Treatment Note Subjective Comment : Patient agrees to treat Additional Objective Information : reviewed back precautions with patient and he verbalized understanding Assessment : Patient is unsafe with transfers and amb being at risk for fall and would benefit from rehab placement upon discharge Plan for Treatment : Continue per POC. OSMANI RAINEY PTA - 12/24/2018 14:59 EDT Pain Assessment Pain Comment : no complaints of pain noted OSMANI RAINEY PTA - 12/24/2018 14:59 EDT Image 1 - Images currently included in the form version of this document have not been included in the text rendition version of the form. Anticipated Discharge Needs, OT/PT Anticipated Discharge to : Unit, rehabilitation OSMANI RAINEY PTA - 12/24/2018 14:59 EDT [place] PT Charges PT Therap. Exercise 15 min : 1 PT Ther Activities Ea 15 Min : 1 OSMANI RAINEY PTA - 12/24/2018 14:59 EDT documented in this encounter Plan of Treatment Not on file documented as of this encounter Visit Diagnoses Not on filedocumented in this encounter
--- OUTSIDE RECORDS SUMMARY | 2025-01-27 13:09 | XMS_ITS | Encounter Summary ---
Author Organization [email or web address] ([place], [place], [place], [place]) Address [address] [place] [address] Care Team Providers Care Cnc Router Operator Name Role Phone Unavailable Primary Care Provider Unavailabl e Encounter Details Date Type Department Care Team (Late st Contact Info) Description 11/04/2019 Transcribed Document [facility] [place] [facility] [place] [address] ProviderAgnieszka MD [address], [place] [id number] Social History Tobacco Use Types Packs/Day Years Used Date Smoking Tobacco: Never Assessed Sex and Gender Information Value Date Recorded Sex Assigned at Not on file Legal Sex Male 2:38 PM CDT Gender Identity Not on file Sexual Orientation Not on file documented as of this encounter Miscellaneous Notes * [employer] Conversion Note - Historical ProviderMD - 11/04/2019 7:42 AM CDT Pain Assessment Entered On: 11/05/2019 5:20 EDT Performed On: 11/05/2019 4:03 EDT by Lily Page RN Intervention Information: acetaminophen-HYDROcodone Performed by Lily Page RN on 11/05/2019 03:03:00 EDT acetaminophen-HYDROcodone,1Tab Oral,Pain (Severe 7-10) Pain Assessment Pain Assessment : Follow-up assessment Pain Scale Goal : 4 Pain Scale Used : 0-10 Scale Lily Page RN - 11/05/2019 5:20 EDT Pain Scale Intensity : 3 Lily Page RN - 11/05/2019 5:20 EDT Image 4 - Images currently included in the form version of this document have not been included in the text rendition version of the form. documented in this encounter Plan of Treatment Not on file documented as of this encounter Visit Diagnoses Not on filedocumented in this encounter
--- OUTSIDE RECORDS SUMMARY | 2025-01-27 13:09 | XMS_ITS | Encounter Summary ---
Author Organization [employer] ([place], [place], [place], [place]) Address [address] [place] [address] Care Team Providers Care Motor Vehicle Clerk Name Role Phone Unavailable Primary Care Provider Unavailabl e Encounter Details Date Type Department Care Team (Late st Contact Info) Description 11/07/2019 Transcribed Document [facility] Neurology - [address] [facility] [address] [place] [address] Heide Akers MD [address] [place] [address] Social History Tobacco Use Types Packs/Day Years Used Date Smoking Tobacco: Never Assessed Sex and Gender Information Value Date Recorded Sex Assigned at Not on file Legal Sex Male 2:38 PM CDT Gender Identity Not on file Sexual Orientation Not on file documented as of this encounter Miscellaneous Notes * Cerner Conversion Note - Heide Akers MD - 11/07/2019 2:42 PM EDT Patient: SIMBA MAYEN JR Age: 69 years Sex: Male : 1950 Associated Diagnoses: None Author: HEIDE AKERS MD-SNU Came in to check on Mr. Mayen. Continued LE paralysis, despite decompression yesterday. Sensory level does seem to be below, T9/10. He can feel near the groin area. Will repeat Thoracic MRI s/p to verify no post-op hematoma, although EILEEN in place and draining. Spoke with Marlys, discuss my concern about his lack of improvement s/p decompression. He may not regain LE control, or might be slow recovery/rehab. She agrees with holding steroids as this is unlikely to improve outcome with regards to SCI, and would be risky in setting of possible infection. I'm concerned that he has suffered a vascular event to his spinal cord, as the degree of stenosis was not impressive intra-operatively. documented in this encounter Plan of Treatment Not on file documented as of this encounter Visit Diagnoses Not on filedocumented in this encounter
--- OUTSIDE RECORDS SUMMARY | 2025-01-27 13:09 | XMS_ITS | Encounter Summary ---
Author Organization [employer] ([place], [place], [place], [place]) Address [address] [place] [address] Care Team Providers Care Computer Graphic Artist Name Role Phone Unavailable Primary Care Provider Unavailabl e Encounter Details Date Type Department Care Team (Late st Contact Info) Description 11/05/2019 Transcribed Document [facility] [place] [address] [place] [address] ProviderAgnieszka MD [address], [place] [id number] Social History Tobacco Use Types Packs/Day Years Used Date Smoking Tobacco: Never Assessed Sex and Gender Information Value Date Recorded Sex Assigned at Not on file Legal Sex Male 2:38 PM CDT Gender Identity Not on file Sexual Orientation Not on file documented as of this encounter Miscellaneous Notes * Cerner Conversion Note - Agnieszka ProviderMD - 11/05/2019 9:27 AM CDT [facility] Main OR PACU Summary Primary Physician: HEIDE KAT MD-U Finalized Date/Time: 11/05/19 13:46:04 Pt. Name: SIMBA MAYEN JR/Sex: 1950 Male Med Rec #: [id number] Physician: LORENA SAGASTUME MD-INT Financial #: [id number] Pt. Type: I Room/Bed: [facility]/ Admit/Disch: 11/02/19 02:59:00 - Institution: [facility] Main OR PACU I Case Times Entry 1 In PACU I 11/05/19 12:11:00 Ready for PACU 11/05/19 13:40:00 Discharge Discharge from PACU 11/05/19 13:40:00 I Last Modified By: Danelle Fam RN 11/05/19 13:44:22 Finalized By: Danelle Fam, RN Document Signatures Signed By: Danelle Fam RN 11/05/19 13:46 Electronically signed by Taryn [facility] Conversion Computer Aided Design Drafter Cerner at 11/12/2022 9:32 PM CDT documented in this encounter Plan of Treatment Not on file documented as of this encounter Visit Diagnoses Not on filedocumented in this encounter
--- OUTSIDE RECORDS SUMMARY | 2025-01-27 13:09 | XMS_ITS | Encounter Summary ---
Author Organization [employer] ([place], [place], [place], [place]) Address [address] [place] [address] Care Team Providers Care Ophthalmologist Name Role Phone Unavailable Primary Care Provider Unavailabl e Encounter Details Date Type Department Care Team (Late st Contact Info) Description 11/07/2019 Transcribed Document [facility] [place] Family Medicine [address] [place] [address] ProviderAgnieszka MD [address], [place] [id number] Social History Tobacco Use Types Packs/Day Years Used Date Smoking Tobacco: Never Assessed Sex and Gender Information Value Date Recorded Sex Assigned at Not on file Legal Sex Male 2:38 PM CDT Gender Identity Not on file Sexual Orientation Not on file documented as of this encounter Miscellaneous Notes * [employer] Conversion Note - Historical ProviderMD - 11/07/2019 2:00 PM CDT Pain Assessment Entered On: 11/07/2019 17:47 EDT Performed On: 11/07/2019 15:50 EDT by Zee Taylor RN Intervention Information: acetaminophen Performed by Zee Taylor RN on 11/07/2019 14:50:00 EDT acetaminophen,650mg Oral Pain Assessment Pain Assessment : Follow-up assessment Pain Scale Goal : 2 Pain Improved by Intervention : Yes Zee Taylor RN - 11/07/2019 17:47 EDT documented in this encounter Plan of Treatment Not on file documented as of this encounter Visit Diagnoses Not on filedocumented in this encounter
--- OUTSIDE RECORDS SUMMARY | 2025-01-27 13:09 | XMS_ITS | Encounter Summary ---
Author Organization [employer] ([place], [place], [place], [place]) Address [address] [place] [address] Care Team Providers Care Substitute Nurse Name Role Phone Unavailable Primary Care Provider Unavailabl e Encounter Details Date Type Department Care Team (Late st Contact Info) Description 11/06/2019 Transcribed Document [facility] [place] [address] ProviderAgnieszka MD [address] [place], [place] [id number] Social History Tobacco Use Types Packs/Day Years Used Date Smoking Tobacco: Never Assessed Sex and Gender Information Value Date Recorded Sex Assigned at Not on file Legal Sex Male 2:38 PM CDT Gender Identity Not on file Sexual Orientation Not on file documented as of this encounter Miscellaneous Notes * Cerner Conversion Note - Agnieszka ProviderMD - 11/06/2019 1:44 PM CDT Patient: SIMBA MAYEN JR Age: [...] overnight with no no new microbiology reports. PAST MEDICAL HISTORY Rheumatoid Arthritis on Remicade [...] of Systems unable to obtain Health Status Allergies: Allergic Reactions (All) No Known Allergies No Known Medication Allergies, Allergies (2) Active Reaction No Known Allergies None Documented No Known Medication Allergies None Documented Current medications: (Selected) Inpatient Medications Ordered Azilect: 1 mg, Oral, Daily Dilaudid: 0.25 mg, IV Push, Q1H, PRN: Pain (Moderate 4-6) Dilaudid: 0.5 mg, IV Push, Q1H, PRN: Pain (Moderate 4-6) Dulcolax Laxative: 10 mg, Oral, BID, PRN: Constipation DuoNeb 0.5 mg-2.5 mg/3 mL inhalation solution: 3 mL, Nebulized Inhalation, RT_Q6H, PRN: Shortness of Breath Fleet Enema: 133 mL, Rectal, Daily, PRN: Constipation HYDROmorphone: 0.25 mg, IV Push, Q10Min, PRN: Pain (Moderate 4-6) HYDROmorphone: 0.5 mg, IV Push, Q10Min, PRN: Pain (Severe 7-10) Lactated Ringers Injection intravenous solution 1,000 mL: 75 mL/Hr, IntraVENous MiraLax: 17 Gram, Oral, Daily, PRN: Constipation Normal Saline Flush: 10 mL, IntraCATHeter, Q12H Norvasc: 10 mg, Oral, Daily Tylenol: 650 [...] mL: 2 Gram, 200 mL/Hr, IV Piggyback, [id number] docusate sodium: 200 mg, Oral, BID fentaNYL: 25 mcg, IV Push, 1-Time, PRN: Pain (Severe 7-10) fentaNYL: 25 mcg, IV Push, Q10Min, PRN: Pain (Moderate 4-6) hydrALAZINE: 10 mg, IV Push, Q6H, PRN: Hypertension lactobacillus acidophilus: 1 Cap, Oral, Daily morphine: 2 mg, IV Push, Q2H, PRN: Pain (Severe 7-10) ondansetron: 4 mg, IV Push, 1-Time, PRN: Nausea/Vomiting oxyCODONE: 10 mg, Oral, Q4H, PRN: Pain (Moderate 4-6) oxyCODONE: 5 mg, Oral, 1-Time, PRN: Pain (Moderate 4-6) oxyCODONE: 5 mg, Oral, Q4H, PRN: Pain (Mild 1-3) sodium chloride 0.9% injectable solution: 10 mL, IV Push, Q8H vancomycin + Sodium Chloride 0.9% intravenous solution 250 mL: 1,250 mg, 250 mL/Hr, IV Piggyback, [id number] Pending Complete fentaNYL: 25 mcg, IV Push, Q10Min Documented Medications Documented Azilect 1 mg oral tablet: 1 Tab, Oral, Daily, 30 Tab, 0 Refill(s) Remicade: 10 mg/kg, IntraVENous, [id number], for Ulcerative Colitis; Last dose: 09/29/2019, 0 Refill(s) carbidopa-levodopa 25 mg-100 mg oral tablet: 1 Tab, Oral, QID, 120 Tab, 0 Refill(s), Medications (31) Active Scheduled: (10) #NaCl 0.9% *FLUSH* inj 10 mL 10 mL, IV Push, Q8H #NaCl 0.9% *FLUSH* inj 10 mL 10 mL, IntraCATHeter, Q12H acetaminophen 325 mg tab 650 mg 2 Tab, Oral, Q4H amLODIPine 10 mg tab 10 mg 1 Tab, Oral, Daily carbidopa/levodopa 25/100 mg tab 1 Tab, Oral, QID cefEPIME + NaCl 0.9% *MBP* 100 mL 2 Gram, IV Piggyback, [id number] docusate sodium 100 mg cap 200 mg 2 Cap, Oral, BID lactobacillus acidophilus cap 1 Cap, Oral, Daily rasagiline 1 mg tab 1 mg 1 Tab, Oral, Daily vancomycin + NaCl 0.9% 250 mL 1,250 mg, IV Piggyback, [id number] Continuous: (1) lactated ringers 1,000 mL 1,000 mL, IntraVENous, 75 mL/Hr PRN: (20) albuterol-ipratropium inh 3 mL 3 mL, Nebulized Inhalation, RT_Q6H alteplase + sterile water 1 mL 1 mg, IntraCATHeter, 1-Time bisacodyl 10 mg supp 10 mg 1 Supp, Rectal, BID bisacodyl EC 5 mg tab 10 mg 2 Tab, Oral, BID diazepam 10 mg/2 mL inj syr 5 mg 1 mL, IV Push, Q6H fentaNYL 100 mcg/2 mL inj 25 mcg 0.5 mL, IV Push, Q10Min fentaNYL 100 mcg/2 mL inj 25 mcg 0.5 mL, IV Push, 1-Time hydrALAZINE 20 mg/1 mL inj 10 mg 0.5 mL, IV Push, Q6H HYDROmorphone 1 mg/1 mL inj 0.5 mg 0.5 mL, IV Push, Q1H HYDROmorphone 1 mg/1 mL inj 0.25 mg 0.25 mL, IV Push, Q1H HYDROmorphone 1 mg/1 mL inj 0.25 mg 0.25 mL, IV Push, Q10Min HYDROmorphone 1 mg/1 mL inj 0.5 mg 0.5 mL, IV Push, Q10Min morphine 2 mg/1 ml inj 2 mg 1 mL, IV Push, Q2H Na biphos-Na phos 19 g-7 g enema 133 mL, Rectal, Daily ondansetron 4 mg/2 mL inj 4 mg 2 mL, IV Push, Q4H ondansetron 4 mg/2 mL inj 4 mg 2 mL, IV Push, 1-Time oxyCODONE 5 mg tab 5 mg 1 Tab, Oral, Q4H oxyCODONE 5 mg tab 10 mg 2 Tab, Oral, Q4H oxyCODONE 5 mg tab 5 mg 1 Tab, Oral, 1-Time polyethylene glycol 3350 pwd 17 g pkt 17 Gram 1 Packet, Oral, Daily Problem list: All Problems Parkinson disease / SNOMED CT 70013796 / Confirmed Scoliosis / SNOMED CT 884292594 / Confirmed Colitis / SNOMED CT 7272705713 / Confirmed Arthritis / SNOMED CT 6299301 / Confirmed 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 History of obstructive sleep apnea / IMO [id number] / Confirmed, Active Problems (6) Arthritis Colitis DJD (degenerative joint disease) of thoracic spine History of obstructive sleep apnea Parkinson disease Scoliosis Physical Examination VS/Measurements Vitals Signs (last 24 hrs) Last Charted Minimum Maximum Temp 97.5 (NOV 05 10:00) 97.5 (NOV 05 10:00) 98.7 (NOV 04 18:25) Mon HR 91 (NOV 05 10:00) 91 (NOV 05 10:00) 117 (NOV 04 18:25) Resp Rate 18 (NOV 05 10:00) 16 (NOV 04 18:25) 18 (NOV 05 10:00) SBP 106 (NOV 05 10:00) 106 (NOV 05 10:00) H 153 (NOV 05 02:15) DBP 65 (NOV 05 10:00) 65 (NOV 05 10:00) H 98 (NOV 05 02:15) MAP 75 (NOV 05 10:00) 75 (NOV 05 10:00) 114 (NOV 04 22:00) SpO2 L 93 (NOV 05 10:00) L 93 (NOV 05 10:00) 99 (NOV 05 06:00) General: alert; No acute distress. Eye: Normal conjunctiva, nonicteric. HENT: Normocephalic. Traumatic Neck: Supple. Respiratory: Lungs are clear to auscultation , Respirations are non-labored, . Cardiovascular: Normal rate, Regular rhythm, No murmur noted, No edema. Gastrointestinal: Soft, Non-tender, Non-distended, Normal bowel sounds. Musculoskeletal: Normal range of motion, No tenderness, No swelling. Integumentary: Warm, Moist, No pallor, No rash. Neurologic: Arousable, Oriented, No focal deficits. Psychiatric: Cooperative, Appropriate mood & affect. Review / Management Results review: Labs (Last four charted values) WBC 7.2 (NOV 05) 7.5 (NOV 04) 6.5 (NOV 02) 8.7 (NOV 01) HB L 11.7 (OCT 11) 14.7 (OCT 10) L 12.2 (OCT 08) 13.5 (OCT 07) HCT L 36.4 (OCT 11) 49.8 (OCT 10) L 37.6 (OCT 08) 43.0 (OCT 07) Plt 230 (OCT 11) 240 (OCT 10) 280 (OCT 09) 291 (OCT 08) Na L 133 (OCT 11) 136 (OCT 10) 139 (OCT 08) 137 (OCT 07) K 4.2 (OCT 11) 4.0 (OCT 10) 3.6 (OCT 08) 4.5 (OCT 07) Cl 103 (OCT 11) 104 (OCT 10) 109 (OCT 08) 106 (OCT 07) CO2 27 (OCT 11) 26 (OCT 10) 25 (OCT 08) 23 (OCT 07) BUN 9 (OCT 11) 12 (OCT 10) 15 (APR 08) 19 (APR 07) Cr 0.70 (NOV 05) 0.80 (NOV 04) 0.70 (NOV 02) 1.00 (NOV 01) Glu R 98 (NOV 05) 95 (NOV 04) 93 (NOV 02) 100 (NOV 01) Ca L 8.3 (NOV 05) 8.4 (NOV 04) 8.8 (NOV 02) 8.9 (NOV 01) Lactic 1.3 (NOV 01) PT 11.3 (NOV 04) 11.2 (NOV 01) INR 1.1 (NOV 04) 1.1 (NOV 01) PTT H 36.2 (NOV 03) AST 19 (NOV 05) 16 (NOV 01) ALT L 8 (NOV 05) 29 (NOV 01) ALK P 100 (NOV 05) 109 (NOV 01) T Bili 0.5 (NOV 05) 0.3 (NOV 01) PTN 6.8 (NOV 05) 7.9 (NOV 01) ALB L 2.0 (NOV 05) L 2.5 (NOV [...] prolonged course of parenteral therapy -- probiotic Dr. Alyssa Bowens has obtained history, performed the physical examination and formulated the above plan of care Vinicio Fine APRN for Dr. Alyssa DONATO DC documented in this encounter Plan of Treatment Not on file documented as of this encounter Visit Diagnoses Not on filedocumented in this encounter
--- OUTSIDE RECORDS SUMMARY | 2025-01-27 13:09 | XMS_ITS | Encounter Summary ---
Author Organization [employer] ([place], [place], [place], [place]) Address [address] [place] [address] Care Team Providers Care Gear Cutting Machine Set Up Operator Name Role Phone Unavailable Primary Care Provider Unavailabl e Encounter Details Date Type Department Care Team (Late st Contact Info) Description 12/22/2018 Transcribed Document [facility] [place] Family Medicine [address] [place] [address] ProviderAgnieszka MD [address] [place], [place] [address] Social History Tobacco Use Types Packs/Day Years Used Date Smoking Tobacco: Never Assessed Sex and Gender Information Value Date Recorded Sex Assigned at Not on file Legal Sex Male 2:38 PM CDT Gender Identity Not on file Sexual Orientation Not on file documented as of this encounter Miscellaneous Notes * Cerner Conversion Note - Historical ProviderMD - 12/22/2018 3:00 AM CDT Nutrition Assessment Entered On: 12/23/2018 14:54 EDT Performed On: 12/23/2018 14:53 EDT by CHRISTIAN ELLIS RD, LD Nutrition Assessment Nutrition Assessment Reason : Automatic referral CHRISTIAN ELLIS RD, LD - 12/23/2018 14:53 EDT Nutrition Recommendations Dietitian Recommendations : 12/23: Rec'd consult for BMI >40. No UWL or skin breakdown noted. Pt ate 100% of breakfast this am. NO nutritional concerns identified, RD will rescreen in 7-[address], LD - 12/23/2018 14:53 EDT Electronically signed by Gay Centeno Conversion Sharepoint Application Developer Cerner at 11/12/2022 9:54 PM CDT documented in this encounter Plan of Treatment Not on file documented as of this encounter Visit Diagnoses Not on filedocumented in this encounter
--- OUTSIDE RECORDS SUMMARY | 2025-01-27 13:09 | XMS_ITS | Encounter Summary ---
Author Organization [employer] ([place], [place], [place], [place]) Address [address] [place] [address] Care Team Providers Care System Designer Name Role Phone Unavailable Primary Care Provider Unavailabl e Encounter Details Date Type Department Care Team (Late st Contact Info) Description 11/04/2019 Transcribed Document [facility] [place] [facility] [place] [address] ProviderAgnieszka MD [address] [place], [place] [address] Social History Tobacco Use Types Packs/Day Years Used Date Smoking Tobacco: Never Assessed Sex and Gender Information Value Date Recorded Sex Assigned at Not on file Legal Sex Male 2:38 PM CDT Gender Identity Not on file Sexual Orientation Not on file documented as of this encounter Miscellaneous Notes * Cerner Conversion Note - Agnieszka ProviderMD - 11/04/2019 1:05 PM CDT On Going Discharge Planning Entered On: 11/04/2019 13:06 EDT Performed On: 11/04/2019 13:05 EDT by ELKE VELÁZQUEZ, [employer] Care Management Progress Note Discharge Arrangements : [...] you Attend Multidisciplinary Rounds? : No ELKE VELÁZQUEZ [employer] - 11/04/2019 13:05 EDT Narrative Progress Note Narrative Progress Note : Elvia stated that [facility] is following for patient placement. Patient is scheduled for surgery Friday11/05/19. Cm will continue to follow. Historical Progress Note : Patient is scheduled for an MRI on and surgery on Friday. He reported wanting to go to [facility]. Cm sent referral packet to [facility]. ELKE VELÁZQUEZ [employer] - 11/03/19 14:33:22 ELKE VELÁZQUEZ [employer] - 11/04/2019 13:05 EDT documented in this encounter Plan of Treatment Not on file documented as of this encounter Visit Diagnoses Not on filedocumented in this encounter
--- OUTSIDE RECORDS SUMMARY | 2025-01-27 13:09 | XMS_ITS | Encounter Summary ---
Author Organization [employer] ([place], [place], [place], [place]) Address [address] [place] [address] Care Team Providers Care Telephone Operator Chief Name Role Phone Unavailable Primary Care Provider Unavailabl e Encounter Details Date Type Department Care Team (Late st Contact Info) Description 11/06/2019 Transcribed Document [facility] Neurology - [address] [facility] [address] [place] [address] [place] [address] [place] [address] Social History Tobacco Use Types Packs/Day Years Used Date Smoking Tobacco: Never Assessed Sex and Gender Information Value Date Recorded Sex Assigned at Not on file Legal Sex Male 2:38 PM CDT Gender Identity Not on file Sexual Orientation Not on file documented as of this encounter Miscellaneous Notes * Cerner Conversion Note - Heide Kat MD - 11/06/2019 11:43 AM EDT Patient: SIMBA MAYEN JR Age: 69 years Sex: Male : 1950 Associated Diagnoses: None Author: HEIDE KAT MD-SNU Subjective Nursing states that patient is numb in lower extremities. Patient states he's unable to move legs this morning. Unable to states whether he had any issues overnight. Vitals Signs (last 24 hrs) Last Charted Minimum Maximum Temp 98.8 (NOV 05 06:00) 97.9 (NOV 04 15:20) 98.7 (NOV 04 18:25) Mon HR 112 (NOV 05 06:00) 74 (NOV 04 12:15) 117 (NOV 04 18:25) Resp Rate 16 (NOV 05 06:00) 16 (NOV 04 12:10) 16 (NOV 04 12:10) SBP H 143 (NOV 05 06:00) 115 (NOV 04 18:25) H 184 (NOV 04 12:45) DBP 89 (NOV 05 06:00) 72 (NOV 04 18:25) H 105 (NOV 04 12:25) MAP 101 (NOV 05 06:) 88 (NOV 04 18:25) 127 (NOV 04 12:40) SpO2 99 (NOV 05 06:00) 94 (NOV 04 12:15) 100 (NOV 04 12:10) Physical Exam 464 nl UE motor bilaterally no thoracic sensory level, able to sense me touching his feet, but decrease to LT in both legs from waist down no babinski no clonus Laboratory Values: NOV 05 05:53 L 133 103 9 / 98 4.2 27 0.70 \ NOV 05 05:53 \ L 11.7 / 7.2 230 / L 36.4 \ Radiology Results (Last 48 hours) [id number] -- 11/02/2019 02:59 CR Fluoro in OR (11/05/2019 11:00) Result: FLUOROSCOPY WITH FILMSHISTORY: Back painFluoroscopic guidance was provided under the direction of the clinicalservice for intraoperative procedure. 2 digital spot radiographs wereobtained for lumbar surgery.Fluoroscopy time was 0.63 minutes.IMPRESSION: Please see postoperative report.Images reviewed, interpreted, and dictated by Dr. Hamzah Shah.Transcribed by Levon Pisano PA-C, R.T. (N), C N M T.I have personally viewed, interpreted and dictated the examination. Ihave read and agree with the above final transcribed report. CR CT in OR (11/05/2019 11:40) Result: CT THORACIC SPINE 11/05/2019 1:50 PMHISTORY: Intraoperative thoracic spine fusion. PROCEDURE: Axial images were obtained in the operative suite through thethoracic spine by computed tomography. This study was performed withtechniques to keep radiation doses as low as reasonably achievable,(ALARA). Individualized dose reduction techniques using automatedexposure control or adjustment of mA and/or kV according to the patientsize were employed.FINDINGS: Posterior hardware is noted. Wide posterior exposure is noted.There is diffuse degenerative disc disease. IMPRESSION: Intraoperative CT for hardware placement as detailed above. Images reviewed, interpreted, and dictated by Dr. Hamzah Shah.Transcribed by Levon Pisano PA-C, Angelo (N), Priscila Camarillo T.I have personally viewed, interpreted and dictated the examination. Ihave read and agree with the above final transcribed report. Assessment s/p thoracic fusion extension, uncomplicated Plan - STAT MRI thoracic this AM, mixed exam - will discuss with family documented in this encounter Plan of Treatment Not on file documented as of this encounter Visit Diagnoses Not on filedocumented in this encounter
--- OUTSIDE RECORDS SUMMARY | 2025-01-27 13:09 | XMS_ITS | Encounter Summary ---
Author Organization [employer] ([place], [place], [place], [place]) Address [address] [place] [address] Care Team Providers Care Gambreler Name Role Phone Unavailable Primary Care Provider Unavailabl e Encounter Details Date Type Department Care Team (Late st Contact Info) Description 11/05/2019 Transcribed Document [facility] Neurology - [address] [facility] [address] [place] [id number] Mark Akers MD [address] [place] [address] Social History Tobacco Use Types Packs/Day Years Used Date Smoking Tobacco: Never Assessed Sex and Gender Information Value Date Recorded Sex Assigned at Not on file Legal Sex Male 2:38 PM CDT Gender Identity Not on file Sexual Orientation Not on file documented as of this encounter Miscellaneous Notes * Cerner Conversion Note - Mark Akers MD - 11/05/2019 12:24 PM EDT DATE OF PROCEDURE: 11/05/2019 SURGEON: Mark Akers MD PRIMARY CARE PHYSICIAN: Dr. Faustino Jones. PREOPERATIVE DIAGNOSES: 1. Previous T10 through iliac fusion. 2. T9-10 fracture. POSTOPERATIVE DIAGNOSES: 1. Previous T10 through iliac fusion. 2. T9-10 fracture. INDICATION FOR PROCEDURE: T9-10 fracture above previous fusion with intractable pain/diskitis. PROCEDURES: 1. T6 through T9 posterior instrumentation and connection onto previous T11 through iliac instrumentation. 2. T6 through T10 posterolateral fusion. 3. T6 through T9 screw augmentation. 4. Intraoperative CT scan with stereotactic navigation. ADMITTING REPRESENTATIVE: Janae Borges. TYPE OF ANESTHESIA: GEA. DESCRIPTION OF PROCEDURE IN DETAIL: Once consent was noted to be on chart, Mr. Cuevas was taken to the operating room. He was anesthetized and placed into the prone position on a Sam spine frame. All pressure points were carefully checked and padded. Preoperative antibiotics were given. A time-out was called. A low-dose CT scan was performed. We planned skin incision. A #10 blade was used to make a midline incision from T6-T11. Bovie electrocautery was used to dissect down to and through the lumbosacral fascia, and a subperiosteal dissection was performed from T6-T10. The instrumentation was exposed at T10 and T11. Four set screws were removed. The jim was bent upward, and the loose screws at T10 were removed entirely. Cultures were sent from the screw holes. A repeat CT scan was performed from T6-T10 and using stereotactic navigation and the usual freehand techniques and the Heyday system, pedicle screws were placed at T6, T7, T8, and T9. Fluoroscopy was draped into the field and used to perform screw augmentation to all these screws. The glue was allowed to harden. Excess jim was connected from the previous 5.5 jim at T9 and at T10. The extension jim was placed. This was an in-line extension jim and it was bent to contour to the polyaxial heads from T6-T9 bilaterally. Set screws were torqued to factory specifications x8. The extension jim was torqued at 100 pounds on each side. To reinforce the construct, we put an additional jim from T8-9 down to T10-11 with four points of connection on the right. All the screws were torqued to factory specifications. Posterolateral bone was decorticated at T6, T7, T8, T9, and T10. Additional allograft and autograft were laid in place for posterolateral fusion. A EILEEN drain was left under the fascia. Vancomycin was put in the wound in order to try to prevent a postoperative infection. 1 Vicryl reapproximated the fascia and paraspinous muscles. 2-0 Vicryl closed the space and closed the skin subcuticularly. The skin was stapled. Bacitracin and Covaderm were applied. Janae Borges assisted throughout the surgery and helped perform the closure. SPECIMEN SENT: Cultures and old hardware. ESTIMATED BLOOD LOSS: 250 mL. DRAINS: Sam-Burger. COMPLICATIONS: None. /[id number] Mark Akers MD MPT/AQ / MPT / MODL /[id number] CC: Dr. Faustino Jones documented in this encounter Plan of Treatment Not on file documented as of this encounter Visit Diagnoses Not on filedocumented in this encounter
--- OUTSIDE RECORDS SUMMARY | 2025-01-27 13:09 | XMS_ITS | Encounter Summary ---
Author Organization [employer] ([place], [place], [place], [place]) Address [address] [place] [address] Care Team Providers Care Grooming Salon Manager Name Role Phone Unavailable Primary Care Provider Unavailabl e Encounter Details Date Type Department Care Team (Late st Contact Info) Description 11/07/2019 Transcribed Document [facility] [place] Medicine [address] [place] [address] ProviderAgnieszka MD [address] [place], [place] [address] Social History Tobacco Use Types Packs/Day Years Used Date Smoking Tobacco: Never Assessed Sex and Gender Information Value Date Recorded Sex Assigned at Not on file Legal Sex Male 2:38 PM CDT Gender Identity Not on file Sexual Orientation Not on file documented as of this encounter Miscellaneous Notes * Cerner Conversion Note - Historical ProviderMD - 11/07/2019 10:00 PM CDT Pain Assessment Entered On: 11/08/2019 0:22 EDT Performed On: 11/07/2019 21:32 EDT by Geno Whipple RN Intervention Information: acetaminophen Performed by Geno Whipple RN on 11/07/2019 20:32:00 EDT acetaminophen,650mg Oral Pain Assessment Pain Assessment : Follow-up assessment Pain Scale Goal : 2 Pain Intervention, Drug : Medicated Pain Improved by Intervention : Yes Geno Whipple RN - 11/08/2019 0:22 EDT Electronically signed by Gay Centeno Conversion Supervisor [employer] Cerner at 11/12/2022 9:38 PM CDT documented in this encounter Plan of Treatment Not on file documented as of this encounter Visit Diagnoses Not on filedocumented in this encounter
--- OUTSIDE RECORDS SUMMARY | 2025-01-27 13:09 | XMS_ITS | Encounter Summary ---
Author Organization [employer] ([place], [place], [place], [place]) Address [address] [place] [address] Care Team Providers Care Dewer Name Role Phone Unavailable Primary Care Provider Unavailabl e Encounter Details Date Type Department Care Team (Late st Contact Info) Description 11/03/2019 Transcribed Document [facility] [place] [address] [place] [address] ProviderAgnieszka MD [address] [place], [place] [address] Social History Tobacco Use Types Packs/Day Years Used Date Smoking Tobacco: Never Assessed Sex and Gender Information Value Date Recorded Sex Assigned at Not on file Legal Sex Male 2:38 PM CDT Gender Identity Not on file Sexual Orientation Not on file documented as of this encounter Miscellaneous Notes * Cerner Conversion Note - Historical ProviderMD - 11/03/2019 5:00 PM CDT Chart Check - Review Order Profile Entered On: 11/04/2019 7:46 EDT Performed On: 11/03/2019 17:00 EDT by DUANE CHUN, RN Chart Check Powerplans Initiated/Discontinued as Appropriate : Yes All Active Orders Reviewed : Yes DUANE CHUN RN - 11/04/2019 7:46 EDT documented in this encounter Plan of Treatment Not on file documented as of this encounter Visit Diagnoses Not on filedocumented in this encounter
--- OUTSIDE RECORDS SUMMARY | 2025-01-27 13:09 | XMS_ITS | Encounter Summary ---
Author Organization [employer] ([place], [place], [place], [place]) Address [address] [place] [address] Care Team Providers Care Farebox Repairer Name Role Phone Unavailable Primary Care Provider Unavailabl e Encounter Details Date Type Department Care Team (Late st Contact Info) Description 11/07/2019 Transcribed Document [facility] [place] Family Medicine [address] [place] [address] ProviderAgnieszka MD [address], [place] [address] Social History Tobacco Use Types Packs/Day Years Used Date Smoking Tobacco: Never Assessed Sex and Gender Information Value Date Recorded Sex Assigned at Not on file Legal Sex Male 2:38 PM CDT Gender Identity Not on file Sexual Orientation Not on file documented as of this encounter Miscellaneous Notes * Cerner Conversion Note - Historical ProviderMD - 11/07/2019 11:49 AM CDT Attempt to Treat, PT Entered On: 11/07/2019 11:50 EDT Performed On: 11/07/2019 11:49 EDT by LILA PIERCE PT Attempt to Treat Unable to Treat Due To : Pending order clarification Inability to Treat Comment : no reorder for PT following return to OR for lami decompression. Pt's nurse unavailable message left with MY Beck to check with neurosurgery for reorder and if need for brace has changed. LILA PIERCE PT - 11/07/2019 11:49 EDT documented in this encounter Plan of Treatment Not on file documented as of this encounter Visit Diagnoses Not on filedocumented in this encounter
--- OUTSIDE RECORDS SUMMARY | 2025-01-27 13:09 | XMS_ITS | Encounter Summary ---
Author Organization [employer] ([place], [place], [place]) Address [address] [place] [address] Care Team Providers Care Toe Lining Closer Name Role Phone Unavailable Primary Care Provider Unavailabl e Encounter Details Date Type Department Care Team (Late st Contact Info) Description 12/23/2018 Transcribed Document [facility] [place] [facility] [place] [address] ProviderAgnieszka MD [address] [place] [address] Social History Tobacco Use Types Packs/Day Years Used Date Smoking Tobacco: Never Assessed Sex and Gender Information Value Date Recorded Sex Assigned at Not on file Legal Sex Male 2:38 PM CDT Gender Identity Not on file Sexual Orientation Not on file documented as of this encounter Miscellaneous Notes * Cerner Conversion Note - Historical ProviderMD - 12/23/2018 11:15 AM CDT Treatment Intervention, OT Entered On: 12/24/2018 15:37 EDT Performed On: 12/24/2018 10:25 EDT by MARY MULLER OTR/Lc General Information, OT Visit Type, OT : Treatment Note Patient Orders : Order Date Order Ordering 12/22/2018 17:40 Occupational Therapy Evaluation and Treatme Ordered By: HEIDE KAT MD-SNU 12/23/2018 11:15 OT Additional Treatment Ordered By: Active Diagnoses : 12/23/2018 00:00 Radiculopathy, lumbar region 12/23/2018 00:00 Scoliosis, unspecified 12/23/2018 00:00 Spinal stenosis, lumbar region without neurogenic claudication Admission Date : 12/22/2018 06:36 Co-treated by, OT : seed analysis laboratory assistant (SUPERVISORY TRAINING SPECIALIST) Personal Devices : Personal Devices No Devices Recorded Assistive Devices : Assistive Devices No Devices Recorded Precautions in Place : Log roll precautions, Spinal Precautions, Other: Out of bed with brace MARY MULLER OTR/Lc - 12/24/2018 15:34 EDT General Status Patient Received Status : Up in chair Treatment Start Time : 12/24/2018 10:02 EDT Patient Left Status : Up in chair, RN/PCT informed, Family/Visitors at bedside, All needs met and within reach RN/PCT Informed Comment : MY yanez Treatment End Time : 12/24/2018 10:25 EDT Treatment Time : 23 Minute(s) MARY MULLER OTR/Lc - 12/24/2018 15:34 EDT Functional Mobility Mobility Grid Sit to Stand : Rehab Minimal assistance Stand to Sit : Rehab Minimal assistance MARY MULLER OTR/Lc - 12/24/2018 15:34 EDT Plan of Care, OT OT Tx Plan/Goals Established w Patient : Yes MARY MULLER OTR/Lc - 12/24/2018 15:34 EDT Night Coordinator Goals, OT Grooming LTG Grid Goal #1 Activity : Grooming Cues : No cues Assist : Independent, modified Date to Meet : 01/06/2019 EDT Goal Status : Initial goal Comment : Standing at sink MARY MULLER OTR/Lc - 12/24/2018 15:34 EDT Bathing LTG Grid Goal #1 Activity : Bathing Cues : No cues Assist : Supervision or set up Equipment : Long handled sponge Date to Meet : 01/06/2019 EDT Goal Status : Initial goal MARY MULLER OTR/Lc - 12/24/2018 15:34 EDT Dressing, Lower Body LTG Grid Goal #1 Activity : Dressing, Lower Body Cues : No cues Assist : Supervision or set up Equipment : Long Handled Storage Facility Rental Clerk, Sock aid, Long handled shoehorn Date to Meet : 01/06/2019 EDT Goal Status : Initial goal MARY MULLER OTR/Lc - 12/24/2018 15:34 EDT Toilet Transfer LTG Grid Goal #1 Activity : Toilet Transfer, Ambulatory Cues : No cues Assist : Supervision or set up Equipment : Rolling walker Date to Meet : 01/06/2019 EDT Goal Status : Progressing, continue MARY MULLER OTR/Lc - 12/24/2018 15:34 EDT Bed Mobility/ Bed Transfer LTG Grid Goal #1 Activity : Bed Mobility/Bed Transfer Cues : No cues Assist : Supervision or set up Date to Meet : 01/06/2019 EDT Goal Status : Initial goal RENZO SASCHA HERNANDEZ/Lc - 12/24/2018 15:34 EDT Other LTG Grid Goal #1 Goal #2 Goal : Pt will sit EOB unsupported for >8 mins for fxnl task without LOB or need for rest break. Pt will complete fxnl mobility of household distance with RWx and supervision without LOB or need for rest break. Date to Meet : 01/06/2019 EDT 01/06/2019 EDT Goal Status : Initial goal Initial goal MARY MULLER OTR/Lc - 12/24/2018 15:34 EDT MARY MULLER OTR/Lc - 12/24/2018 15:34 EDT Treatment Note Subjective Comment : agreeable Patient's Response to Treatment : pt tolerated fairly Additional Objective Information : pt asleep in chair. Required extra time to wake pt up. STood minx 2 from chair. Shuffle steps and extended household distance with RWx. Chair follow. Pt cued for safety.Transfered back to room to chair. Required extended time for activity. Mod to herson socks. Assessment : pt lethargy requires extended time to wake up. Plan for Treatment : cont MARY MULLER OTR/Lc - 12/24/2018 15:34 EDT Pain Assessment Pain Scaled Used : 0-10 Pain scale Pain Score During-Intervention : 0 MARY MULLER OTR/Lc - 12/24/2018 15:34 EDT Image 1 - Images currently included in the form version of this document have not been included in the text rendition version of the form. Anticipated Discharge Needs, OT/PT Anticipated Discharge to : Unit, rehabilitation MARY MULLER OTR/Lc - 12/24/2018 15:34 EDT [place] OT Charges OT Selfcare/Hm Mgmt Ea 15 Min : 2 MARY MULLER OTR/Lc - 12/24/2018 15:34 EDT documented in this encounter Plan of Treatment Not on file documented as of this encounter Visit Diagnoses Not on filedocumented in this encounter
--- OUTSIDE RECORDS SUMMARY | 2025-01-27 13:09 | XMS_ITS | Encounter Summary ---
Author Organization [employer] ([place], [place], [place], [place]) Address [address] [place] [address] Care Team Providers Care Pictures Editor Name Role Phone Unavailable Primary Care Provider Unavailabl e Encounter Details Date Type Department Care Team (Late st Contact Info) Description 11/07/2019 Transcribed Document [facility] [place] Family Medicine [address] [place] [address] ProviderAgnieszka MD [address] [id number] Social History Tobacco Use Types Packs/Day Years Used Date Smoking Tobacco: Never Assessed Sex and Gender Information Value Date Recorded Sex Assigned at Not on file Legal Sex Male 2:38 PM CDT Gender Identity Not on file Sexual Orientation Not on file documented as of this encounter Miscellaneous Notes * Cerner Conversion Note - Historical ProviderMD - 11/07/2019 5:00 PM CDT Chart Check - Review Order Profile Entered On: 11/07/2019 17:48 EDT Performed On: 11/07/2019 17:00 EDT by Zee Taylor RN Chart Check Powerplans Initiated/Discontinued as Appropriate : Yes All Active Orders Reviewed : Yes Zee Taylor RN - 11/07/2019 17:48 EDT documented in this encounter Plan of Treatment Not on file documented as of this encounter Visit Diagnoses Not on filedocumented in this encounter
--- OUTSIDE RECORDS SUMMARY | 2025-01-27 13:09 | XMS_ITS | Encounter Summary ---
Author Organization [employer] ([place], [place], [place], [place]) Address [address] [place] [address] Care Team Providers Care Woodwinds Teacher Name Role Phone Unavailable Primary Care Provider Unavailabl e Encounter Details Date Type Department Care Team (Late st Contact Info) Description 11/02/2019 Transcribed Document [facility] [place] Family Medicine [address] [place] [address] ProviderAgnieszka MD [address] [place], [place] [address] Social History Tobacco Use Types Packs/Day Years Used Date Smoking Tobacco: Never Assessed Sex and Gender Information Value Date Recorded Sex Assigned at Not on file Legal Sex Male 2:38 PM CDT Gender Identity Not on file Sexual Orientation Not on file documented as of this encounter Miscellaneous Notes * Cerner Conversion Note - Agnieszka ProviderMD - 11/02/2019 12:45 PM CDT Initial Discharge Planning Entered On: 11/02/2019 12:51 EDT Performed On: 11/02/2019 12:45 EDT by ELKE VELÁZQUEZ Scow Captain-Fruit Harvester Machine Operator Initial Assessment I Previously Documented Living Environment : No qualifying data available. Living Situation : Home Patient Lives With : Spouse Is the Patient a Caregiver at Home? : No Employment/Vocation : Retired Emergency Contact #1 : Marlys Mason Emergency Contact #1 Emergency Contact #1 Relationship : Emergency Contact #2 : Lexii Mason Emergency Contact #2 Phone Number : [phone] Emergency Contact #2 Relationship : Mother Enter Doctors Name : Dr. Faustino Jones Does Patient have PCP Listed? : Yes Legal Guardian : No Is Guardianship Needed : No ELKE VELÁZQUEZ Scow Captain-Fruit Harvester Machine Operator - 11/02/2019 12:45 EDT Initial Assessment II Sensory and Motor Deficits : Other: Parkinson's Current Home Treatments and Equipment : None ELKE VELÁZQUEZ Scow Captain-Fruit Harvester Machine Operator - 11/02/2019 12:45 EDT Discharge Needs I Anticipated Discharge To, CM : Home independently Current Home Treatment/Equipment : Current Home Treatment/Equipment No qualifying data available. Post Acute/Home Treatments : None Documentation Status Complete : Yes ELKE VELÁZQUEZ Scow Captain-Fruit Harvester Machine Operator - 11/02/2019 12:45 EDT Discharge Needs II Professional Skilled Services : Professional Skilled Services No qualifying data available. Needs Assistance with Transportation : No Discharge Options Discussed with Patient : Acute rehabilitation, Discharge transportation, DME, Home Health, Short term rehabilitation ELKE VELÁZQUEZ Scow Captain-Fruit Harvester Machine Operator - 11/02/2019 12:45 EDT Narrative Note Narrative Note : Patient is a low readmission risk of 34. Patient reported that he has HH in the past through [facility]. Patient reported that he has also been to [facility] in the past. Both of these services were last November. Patient stated that he is ADL independent. He stated that his can transport him home. Patient denied expecting to need any services at discharge. CM will continue to follow. ELKE VELÁZQUEZ Scow Captain-Fruit Harvester Machine Operator - 11/02/2019 12:45 EDT documented in this encounter Plan of Treatment Not on file documented as of this encounter Visit Diagnoses Not on filedocumented in this encounter
--- OUTSIDE RECORDS SUMMARY | 2025-01-27 13:09 | XMS_ITS | Encounter Summary ---
Author Organization [employer] ([place], [place], [place], [place]) Address [address] [place] [address] Care Team Providers Care Real Estate Analyst Name Role Phone Unavailable Primary Care Provider Unavailabl e Encounter Details Date Type Department Care Team (Late st Contact Info) Description 12/22/[address] [facility] Radiology [address] [place] [address] Ivana Salcido MD [facility] [address] [address] Social History Tobacco Use Types Packs/Day Years Used Date Smoking Tobacco: Never Assessed Sex and Gender Information Value Date Recorded Sex Assigned at Not on file Legal Sex Male 2:38 PM CDT Gender Identity Not on file Sexual Orientation Not on file documented as of this encounter Miscellaneous Notes * Cerner Conversion Note - Ivana Salcido MD - 12/22/2018 11:59 AM EDT Patient: SIMBA MAYEN JR Age: 68 years Sex: Male : 1950 Associated Diagnoses: None Author: Rylee Cuadra, BLAS 12/22/18 cc: medical management - awaiting [id number] PLIF per Dr. Akers S: Patient in pre-op. present. Denies F/C/S. Denies SOA or chest pain. Denies headaches. Denies N/V/D. Denies constipation. Denies pain. Denies tobacco or ETOH use. Denies anxiety/depression. Denies any concerns at this time. HPI: Patient is a 68 yo male admitted to [facility] per Dr. Oswald for a [id number] PLIF. Preoperatively patient was found to have [...] 24 hrs) Last Charted Minimum Maximum Temp 98.2 (DECEMBER 22 10:00) 98.2 (DECEMBER 22 10:00) 98.2 (DECEMBER 22 10:00) Mon HR 74 (DECEMBER 22 10:00) 74 (DECEMBER 22 10:00) 74 (DECEMBER 22 10:00) Resp Rate 20 (DECEMBER 22 10:00) 20 (DECEMBER 22 10:00) 20 (DECEMBER 22 10:00) SBP H 155 (DECEMBER 22 10:00) H 155 (DECEMBER 22 10:00) H 155 (DECEMBER 22 10:00) DBP H 96 (DECEMBER 22 10:00) H 96 (DECEMBER 22 10:00) H 96 (DECEMBER 22 10:00) SpO2 100 (DECEMBER 22 10:00) 100 (DECEMBER 22 10:00) 100 (DECEMBER 22 10:00) PE: A&Ox3, elderly white male in NAD, resting in bed; good historian; present; seen in Pre-op nc/at, eomi, PEERL, pink conjunctiva, MMM =expansion b/l , no wheezing, no rhonchi, no rales; normal RR non-displaced PMI, S1S2 ABD is soft, NT, ND, BS+ skin warm, dry ext: no calf tenderness; no edema neuro: cn 2-12 grossly intact; no gross motor -sensory deficits; follows simple commands psych: pleasant mood/affect; cooperative Data: Reviewed PRE-OP CBC and BMP from 12/16/18 CBC Results (Current Encounter/Past 24 Hours) No CBC Results Found (Past 24 Hours) Electrolytes(BMP) Results (Current Encounter/Past 24 Hours) No BMP Results Found (Past 24 Hours) Impression: spondylolisthesis Lspine; awaiting [id number] PLIF per Dr. Akers hx Arthritis hx Colitis hx DJD (degenerative joint disease) of thoracic spine History of obstructive sleep apnea hx Parkinson disease hx Scoliosis hx back pain with RLE radiculopathy hx right inguinal surgery 15 yrs ago. hx left inguinal hernia 4 yrs ago. hx bilat catarract surgery 2017. hx colonoscopy many times. Plan: Monitor HTN; add PRN's, hold parameters bowel regimen incentive spirometer PT/OT DVT prophylaxis per surgeon Pain management deferred to surgeon will monitor hb/hct daily for signs of ongoing acute blood loss will monitor bun/cr daily for signs of dehydration, prerenal azotemia will monitor for signs/symptoms of post-op wound infection or hospital acquired infectious process resume outpatient medication regimen for comorbidities post-op Assessment and treatment plan made in conjunction with Joselyn Salcido MD *Scribed by Flavia Sargent documented in this encounter Plan of Treatment Not on file documented as of this encounter Visit Diagnoses Not on filedocumented in this encounter
--- OUTSIDE RECORDS SUMMARY | 2025-01-27 13:09 | XMS_ITS | Encounter Summary ---
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 [place] Family Medicine [address] [place] [address] ProviderAgnieszka MD [address], [place] [id number] Social History Tobacco Use Types Packs/Day Years Used Date Smoking Tobacco: Never Assessed Sex and Gender Information Value Date Recorded Sex Assigned at Not on file Legal Sex Male 2:38 PM CDT Gender Identity Not on file Sexual Orientation Not on file documented as of this encounter Miscellaneous Notes * Cerner Conversion Note - Historical ProviderMD - 11/07/2019 10:30 AM CDT Spiritual Care Short Form Entered On: 11/07/2019 11:29 EDT Performed On: 11/07/2019 10:30 EDT by NAE BELL Chaplain General Information, Spiritual Care Spiritual Care Referred by : Patient Reason for Visit : Initial Ministry Provided to : Patient Intervention/Comment/Summary Points : Patient requested visit for prayer. Father Jovi Mcclain making rounds, RN requested he see patient. 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 Spiritual/Emotional Acuity : Medium Spiritual Framework : Integrated, provides strength/resource Active in a Anabaptist/Sommer Group : Yes Jainism Preference : Scientology Summary/Next Steps Comment/Summary : Prayer and encouragement shared with patient. NAE BELL Chaplain - 11/07/2019 11:28 EDT documented in this encounter Plan of Treatment Not on file documented as of this encounter Visit Diagnoses Not on filedocumented in this encounter
--- OUTSIDE RECORDS SUMMARY | 2025-01-27 13:09 | XMS_ITS | Encounter Summary ---
Author Organization [employer] ([place], [place], [place]) Address [address] [place] [address] Care Team Providers Care Clinic Director Name Role Phone Unavailable Primary Care Provider Unavailabl e Encounter Details Date Type Department Care Team (Late st Contact Info) Description 11/05/2019 Transcribed Document [facility] [place] [facility] [place] [address] ProviderAgnieszka MD [address] [id number] Social History Tobacco Use Types Packs/Day Years Used Date Smoking Tobacco: Never Assessed Sex and Gender Information Value Date Recorded Sex Assigned at Not on file Legal Sex Male 2:38 PM CDT Gender Identity Not on file Sexual Orientation Not on file documented as of this encounter Miscellaneous Notes * Cerner Conversion Note - Historical ProviderMD - 11/05/2019 4:44 PM CDT Central Line Checklist Entered On: 11/05/2019 16:46 EDT Performed On: 11/05/2019 16:44 EDT by KAROLINE DEE PICC-RN Central Line Checklist History and Physical on Chart : Yes Central Line Insertion Facility : [facility] Central Line Insertion Start Date/Time : 11/05/2019 15:37 EDT Central Catheter Type : Power injection PICC Central Line Lot Number : [id number] Central Line Vessel Cannulated : Median basilic Central Line Laterality : Right Central Line Number of Lumens : 2 Central Line Insertion Site : Upper arm, left Central Line Insertion Reason : New indication PICC Line Exclusion Criteria : None CL Number of Insertion Attempts: : 6 Modified Seldinger Used : Yes Portable Ultrasound Device : Yes Central Line Clean Hands : Yes Site Preparation Procedure : Chlorhexidine (Chloraprep) if patient is 2 months or older Central IV Full Body Drape Used : Yes Proper Use of Sterile Apparel per Policy : Yes Procedure to be Performed : picc line placement Time Out Pause Time : 11/05/2019 15:36 EDT All Activity Suspended : Yes Team Verbally Confirms Information : Correct patient identity, Correct side and site are marked, Consent form is present and accurate, Agreement on the procedure to be done, Correct patient position, Confirm the skin prep has dried, Performed in location of procedure after prepped/draped CL Time Out Additional Attendees : Beronica Croft LPN RN, Karoline Dee RN 1% Lidocaine Amt Used as Anesthetic : 3 mL Central IV Sterile Field Maintained : Yes Central IV Sterile Technique Maintained : Yes Central Line Insertion Complications : attempted picc placement in left arm x 4 sticks, unsuccessful and successful on 2nd attempted rt arm Central Line Secure with : Stabilization device Central Line Dressing Dated : Yes RN Notified CL is Approved to be Used : Yes Central Line Tip Location in SVC : Yes Nurse Notified Name : Sally Azevedo LPN KNAPP, RHONDA G, PICC-RN - 11/05/2019 16:44 EDT documented in this encounter Plan of Treatment Not on file documented as of this encounter Visit Diagnoses Not on filedocumented in this encounter
--- OUTSIDE RECORDS SUMMARY | 2025-01-27 13:09 | XMS_ITS | Encounter Summary ---
Author Organization [employer] ([place], [place], [place], [place]) Address [address] [place] [address] Care Team Providers Care Campaign Analyst Name Role Phone Unavailable Primary Care Provider Unavailabl e Encounter Details Date Type Department Care Team (Late st Contact Info) Description 12/22/2018 Transcribed Document [facility] [place] [facility] [address] [place] [address] ProviderAgnieszka MD [address], [place] [id number] Social History Tobacco Use Types Packs/Day Years Used Date Smoking Tobacco: Never Assessed Sex and Gender Information Value Date Recorded Sex Assigned at Not on file Legal Sex Male 2:38 PM CDT Gender Identity Not on file Sexual Orientation Not on file documented as of this encounter Miscellaneous Notes * Cerner Conversion Note - Historical ProviderMD - 12/22/2018 1:14 PM CDT [facility] Main OR IntraOp Summary Primary Physician: HEIDE KAT MD-SNU Finalized Date/Time: 12/23/18 10:58:23 Pt. Name: EILEEN MAYEN JR/Sex: 1950 Male Med Rec #: [id number] Physician: HEIDE KAT MD-SNU Financial #: [id number] Pt. Type: I Room/Bed: [facility]/ Admit/Disch: 12/22/18 06:36:00 - Institution: [facility] IntraOp Case Attendance Entry 1 Entry 2 Entry 3 Case Attendee HEIDE KAT Burdine, Teresa A, Rn LONG, PAULA R. MD-SNU Role Performed Surgeon/Proceduralist, Compliance Intern, First Scrub, Second First Time In 12/22/18 12:37:00 12/22/18 12:37:00 12/22/18 12:37:00 Time Out 12/22/18 18:08:00 12/22/18 15:30:00 12/22/18 15:00:00 Procedure Lumbar Fusion Posterior Lumbar Fusion Posterior Lumbar Fusion Posterior 3 Level 3 Level 3 Level Other Attendee Superficial Wound Closed By: Last Modified By: Monica Bustillos Rn Burdine, Teresa A, Monica Ambrosio Rn 12/22/18 18:08:27 12/22/18 18:08:27 12/22/18 18:08:27 Entry 4 Entry 5 Entry 6 Case Attendee ANNABELLE ELDER, RN THERESA SHORT PA WORLEY, ANGELICA LANDAVERDE MD Role Performed Scrub, Second APPAREL PATTERN MAKER/Nurse Hvac Designer Anesthesiologist of Record Time In 12/22/18 12:37:00 12/22/18 12:37:00 12/22/18 12:37:00 Time Out 12/22/18 18:08:00 12/22/18 18:08:00 12/22/18 18:08:00 Procedure Lumbar Fusion Posterior Lumbar Fusion Posterior Lumbar Fusion Posterior 3 Level 3 Level 3 Level Other Attendee LUNCH RELIEF Superficial Wound Closed By: Last Modified By: Monica Bustillos Rn Burdine, Teresa A, Monica Ambrosio Rn 12/22/18 18:08:27 12/22/18 18:08:27 12/22/18 18:08:27 Entry 7 Entry 8 Entry 9 Case Attendee JOANIE BONNER, Nadia Jang, Lopez OTHER, ATTENDEE #1 Role Performed Compliance Intern, Second APPAREL PATTERN MAKER/Nurse Hvac Designer Vendor Time In 12/22/18 12:37:00 12/22/18 12:37:00 12/22/18 12:37:00 Time Out 12/22/18 18:08:00 12/22/18 18:08:00 12/22/18 18:08:00 Procedure Lumbar Fusion Posterior Lumbar Fusion Posterior Lumbar Fusion Posterior 3 Level 3 Level 3 Level Other Attendee ALCIDES DYSON Superficial Wound Closed By: Last Modified By: Monica Bustillos Rn Burdine, Teresa A, Rn Burdine, Monica A, Rn 12/22/18 18:08:44 12/22/18 18:08:27 12/22/18 18:08:27 Entry 10 Entry 11 Entry 12 Case Attendee Nadia Valdivia, Assistant Hall Director Clifton Schroeder, Assistant Hall Director Delmi Andino [employer] Pref Card Builder Role Performed APPAREL PATTERN MAKER/Nurse Hvac Designer APPAREL PATTERN MAKER/Nurse Hvac Designer Scrub, First Time In 12/22/18 12:37:00 12/22/18 14:54:00 12/22/18 15:10:00 Time Out 12/22/18 14:55:00 12/22/18 15:08:00 12/22/18 17:00:00 Procedure Lumbar Fusion Posterior Lumbar Fusion Posterior Lumbar Fusion Posterior 3 Level 3 Level 3 Level Other Attendee BREAK Superficial Wound Closed By: Last Modified By: Monica Bustillos Rn Burdine, Teresa A, Monica Ambrosio Rn 12/22/18 18:08:27 12/22/18 18:08:27 12/22/18 18:08:27 Entry 13 Entry 14 Entry 15 Case Attendee Karla Steward Surgical Kiebler, Rachael A, ARCHIE Lincoln Role Performed Scrub, First Compliance Intern, First Scrub, First Time In 12/22/18 12:50:00 12/22/18 15:30:00 12/22/18 17:00:00 Time Out 12/22/18 15:15:00 12/22/18 18:08:00 12/22/18 17:22:00 Procedure Lumbar Fusion Posterior Lumbar Fusion Posterior Lumbar Fusion Posterior 3 Level 3 Level 3 Level Other Attendee Superficial Wound Closed By: Last Modified By: Monica Bustillos Rn Burdine, Teresa A, Monica Ambrosio Rn 12/22/18 18:08:27 12/22/18 18:08:27 12/22/18 18:08:27 Entry 16 Entry 17 Case Attendee ABIGAIL WALLACE, RN AVIVA VILLALPANDO PA-C Role Performed Scrub, First Physician housing assistant property manager Time In 12/22/18 17:22:00 12/22/18 12:37:00 Time Out 12/22/18 18:08:00 12/22/18 18:08:00 Procedure Lumbar Fusion Posterior Lumbar Fusion Posterior 3 Level 3 Level Other Attendee Superficial Wound Closed By: Last Modified By: Monica Bustillos Rn Burdine, Teresa A, Rn 12/22/18 18:08:27 12/22/18 18:08:27 [facility] IntraOp Case Attendance Audit 12/22/18 18:08:44 Regional Coordinator: [id number] Modifier: [id number] <+> Role Performed 15 <*> Procedure Lumbar Fusion Posterior 3 Level 12/22/18 18:08:27 Regional Coordinator: [id number] Modifier: [id number] <+> Time Out 1 <*> Procedure Lumbar Fusion Posterior 3 Level 2 <*> Procedure Lumbar Fusion Posterior 3 Level 3 <*> Procedure Lumbar Fusion Posterior 3 Level 4 <+> Time Out 4 <*> Procedure Lumbar Fusion Posterior 3 Level 5 <+> Time Out 5 <*> Procedure Lumbar Fusion Posterior 3 Level 6 <+> Time Out 6 <*> Procedure Lumbar Fusion Posterior 3 Level 7 <+> Time Out 7 <*> Procedure Lumbar Fusion Posterior 3 Level 8 <+> Time Out 8 <*> Procedure Lumbar Fusion Posterior 3 Level 9 <+> Time Out 9 <*> Procedure Lumbar Fusion Posterior 3 Level 10 <*> Procedure Lumbar Fusion Posterior 3 Level 11 <*> Procedure Lumbar Fusion Posterior 3 Level 12 <*> Procedure Lumbar Fusion Posterior 3 Level 13 <*> Procedure Lumbar Fusion Posterior 3 Level 14 <+> Time Out 14 <*> Procedure Lumbar Fusion Posterior 3 Level 15 <*> Procedure Lumbar Fusion Posterior 3 Level 16 <+> Time Out 16 <*> Procedure Lumbar Fusion Posterior 3 Level 17 <+> Time Out 17 <*> Procedure Lumbar Fusion Posterior 3 Level 12/22/18 17:32:50 Regional Coordinator: [id number] Modifier: [id number] <*> Procedure Lumbar Fusion Posterior 3 Level 2 <*> Procedure Lumbar Fusion Posterior 3 Level 3 <*> Procedure Lumbar Fusion Posterior 3 Level 4 <*> Procedure Lumbar Fusion Posterior 3 Level 5 <*> Procedure Lumbar Fusion Posterior 3 Level 6 <*> Procedure Lumbar Fusion Posterior 3 Level 7 <*> Procedure Lumbar Fusion Posterior 3 Level 8 <*> Procedure Lumbar Fusion Posterior 3 Level 9 <*> Procedure Lumbar Fusion Posterior 3 Level 10 <*> Procedure Lumbar Fusion Posterior 3 Level 11 <*> Procedure Lumbar Fusion Posterior 3 Level 12 <*> Procedure Lumbar Fusion Posterior 3 Level 13 <*> Procedure Lumbar Fusion Posterior 3 Level 14 <*> Procedure Lumbar Fusion Posterior 3 Level 15 <*> Procedure Lumbar Fusion Posterior 3 Level 16 <*> Procedure Lumbar Fusion Posterior 3 Level 17 <+> Time In 17 <*> Procedure Lumbar Fusion Posterior 3 Level 12/22/18 17:31:57 Regional Coordinator: [id number] Modifier: [id number] <+> 17 Case Attendee <+> 17 Role Performed <+> 17 Procedure 12/22/18 17:22:20 Regional Coordinator: [id number] Modifier: [id number] <+> Time Out 15 <*> Procedure Lumbar Fusion Posterior 3 Level <+> 16 Case Attendee <+> 16 Role Performed <+> 16 Time In <+> 16 Procedure 12/22/18 17:20:00 Regional Coordinator: [id number] Modifier: [id number] <+> 15 Case Attendee <+> 15 Time In <+> 15 Procedure 12/22/18 17:19:17 Regional Coordinator: [id number] Modifier: [id number] <+> Time Out 3 <*> Procedure Lumbar Fusion Posterior 3 Level 12 <+> Time Out 12 <*> Procedure Lumbar Fusion Posterior 3 Level 12/22/18 16:40:42 Regional Coordinator: [id number] Modifier: [id number] <+> Time Out 2 <*> Procedure Lumbar Fusion Posterior 3 Level <+> 14 Case Attendee <+> 14 Role Performed <+> 14 Time In <+> 14 Procedure 12/22/18 15:28:44 Regional Coordinator: [id number] Modifier: [id number] <*> Procedure Lumbar Fusion Posterior 3 Level <+> 12 Case Attendee <+> 12 Role Performed <+> 12 Time In <+> 12 Procedure <+> 13 Case Attendee <+> 13 Role Performed <+> 13 Time In <+> 13 Time Out <+> 13 Procedure 12/22/18 15:09:00 Regional Coordinator: [id number] Modifier: [id number] <+> Time Out 11 <*> Procedure Lumbar Fusion Posterior 3 Level 12/22/18 15:08:31 Regional Coordinator: [id number] Modifier: [id number] <+> 10 Case Attendee <+> 10 Role Performed <+> 10 Time In <+> 10 Time Out <+> 10 Procedure <+> 11 Case Attendee <+> 11 Role Performed <+> 11 Time In <+> 11 Procedure <+> 11 Other Attendee 12/22/18 13:27:26 Regional Coordinator: [id number] Modifier: [id number] <+> 1 Procedure 2 <*> Procedure Lumbar Fusion Posterior 3 Level 3 <*> Procedure Lumbar Fusion Posterior 3 Level 4 <*> Procedure Lumbar Fusion Posterior 3 Level 5 <*> Procedure Lumbar Fusion Posterior 3 Level 6 <*> Procedure Lumbar Fusion Posterior 3 Level 7 <*> Procedure Lumbar Fusion Posterior 3 Level 8 <*> Procedure Lumbar Fusion Posterior 3 Level 9 <*> Procedure Lumbar Fusion Posterior 3 Level 12/22/18 13:25:52 Regional Coordinator: [id number] Modifier: [id number] <+> 1 Time In 2 <+> Time In 2 <*> Procedure Lumbar Fusion Posterior 3 Level 3 <+> Time In 3 <*> Procedure Lumbar Fusion Posterior 3 Level 4 <+> Time In 4 <*> Procedure Lumbar Fusion Posterior 3 Level 5 <+> Time In 5 <*> Procedure Lumbar Fusion Posterior 3 Level 6 <+> Time In 6 <*> Procedure Lumbar Fusion Posterior 3 Level 7 <+> Time In 7 <*> Procedure Lumbar Fusion Posterior 3 Level 8 <+> Time In 8 <*> Procedure Lumbar Fusion Posterior 3 Level 9 <+> Time In 9 <*> Procedure Lumbar Fusion Posterior 3 Level [facility] IntraOp Case Times Entry 1 Patient In Room Time 12/22/18 12:37:00 Out Room Time 12/22/18 18:08:00 Anesthesia Start Time 12/22/18 12:37:00 Stop Time 12/22/18 18:08:00 Surgery / Procedure Times Start Time 12/22/18 13:14:00 Stop Time 12/22/18 17:20:00 Last Modified By: Monica Bustillos Rn 12/22/18 18:08:26 [facility] IntraOp Case Times Audit 12/22/18 18:08:26 Regional Coordinator: [id number] Modifier: [id number] <+> 1 Out Room Time <+> 1 Stop Time <+> 1 Stop Time 12/22/18 13:14:12 Regional Coordinator: [id number] Modifier: [id number] <+> 1 Start Time [facility] IntraOp Cautery Entry 1 Entry 2 ESU Identification Cautery Type Monopolar ESU BiPolar ESU Cautery Type Comments ID Number [id number] ID Type Hospital Number Hospital Number Cautery Settings Cut Setting 45 8 Coag Setting 45 45 Blend Setting Bipolar Setting Argon Setting Argon Sibley ESU Grounding Pad Ground Pad Type Adult Grounding Pad Type Comment Grounding Pad Site Right thigh Grounding Pad Site Comment Grounding Pad Monica Bustillos Rn Applied By Grounding Pad Site Warm, dry and intact Skin Condition Before Cautery Site Skin Condition Before Comment Grounding Pad Site Unchanged Skin Condition After Cautery Site Skin Condition After Comment Last Modified By: Monica Bustillos Rn Burdine, Teresa A, Rn 12/22/18 12:35:57 12/22/18 12:35:57 [facility] IntraOp Communication Entry 1 Entry 2 Entry 3 Communication To Family/Significant other Family/Significant other Family/Significant other Comment START UPDATE UPDATE Communication By Monica Bustillos Rn Burdine, Teresa A, Rn Burdine, Teresa A, Rn Date and Time 12/22/18 13:13:00 12/22/18 14:27:00 12/22/18 15:53:00 Last Modified By: Monica Bustillos Rn Burdine, Teresa A, Rn Burdine, Teresa A, Rn 12/22/18 17:55:57 12/22/18 17:55:57 12/22/18 17:55:57 Entry 4 Entry 5 Communication To Family/Significant other Family/Significant other Comment UPDATE CLOSING Communication By Eun Caban Rn Kiebler, Rachael A, Rn Date and Time 12/22/18 16:45:00 12/22/18 17:20:00 Last Modified By: Monica Bustillos Rn Burdine, Teresa A, Rn 12/22/18 17:55:57 12/22/18 17:55:57 General Comments: NO FAMILY PRESENT [facility] IntraOp Communication Audit 12/22/18 17:55:57 Regional Coordinator: [id number] Modifier: [id number] <*> Communication By Monica Bustillos, Adelia 1 <*> Communication By Monica Bustillos Rn 1 <*> Communication By Monica Bustillos Rn 1 <*> Communication By Monica Bustillos Rn 1 <*> Communication By Aopllo, Monica A, Rn 1 <*> Communication By Monica Bustillos, Rn 1 <*> Communication By Monica Bustillos, Rn 1 <*> Date and Time 12/22/18 13:13:00 1 <*> Date and Time 12/22/18 13:13:00 1 <*> Date and Time 12/22/18 13:13:00 1 <*> Date and Time 12/22/18 13:13:00 1 <*> Communication To Family/Significant other 1 <*> Communication To Family/Significant other 1 <*> Communication To Family/Significant other 1 <*> Communication To Family/Significant other 1 <*> Comment START 1 <*> Comment START 1 <*> Comment START 1 <*> Comment START 2 <*> Communication By Monica Bustillos, Rn 2 <*> Communication By Monica Bustillos, Rn 2 <*> Communication By Monica Bustillos, Rn 2 <*> Communication By Monica Bustillos, Rn 2 <*> Communication By Monica Bustillos, Rn 2 <*> Communication By Monica Bustillos, Rn 2 <*> Communication By Monica Bustillos, Rn 2 <*> Date and Time 12/22/18 14:27:00 2 <*> Date and Time 12/22/18 14:27:00 2 <*> Date and Time 12/22/18 14:27:00 2 <*> Date and Time 12/22/18 14:27:00 2 <*> Communication To Family/Significant other 2 <*> Communication To Family/Significant other 2 <*> Communication To Family/Significant other 2 <*> Communication To Family/Significant other 2 <*> Comment UPDATE 2 <*> Comment UPDATE 2 <*> Comment UPDATE 2 <*> Comment UPDATE 3 <*> Communication By Monica Bustillos, Rn 3 <*> Communication By Monica Bustillos, Rn 3 <*> Communication By Monica Bustillos, Rn 3 <*> Communication By Monica Bustillos, Rn 3 <*> Communication By Monica Bustillos, Rn 3 <*> Communication By Monica Bustillos, Rn 3 <*> Communication By Monica Bustillos Rn 3 <*> Date and Time 12/22/18 15:53:00 3 <*> Date and Time 12/22/18 15:53:00 3 <*> Date and Time 12/22/18 15:53:00 3 <*> Date and Time 12/22/18 15:53:00 3 <*> Communication To Family/Significant other 3 <*> Communication To Family/Significant other 3 <*> Communication To Family/Significant other 3 <*> Communication To Family/Significant other 3 <*> Comment UPDATE 3 <*> Comment UPDATE 3 <*> Comment UPDATE 3 <*> Comment UPDATE 4 <*> Communication By Eun Caban Rn 4 <*> Communication By Eun Caban Rn 4 <*> Communication By Eun Caban Rn 4 <*> Date and Time 4 <*> Date and Time 4 <*> Date and Time 4 <*> Communication To 4 <*> Communication To 4 <*> Communication To 4 <*> Comment 4 <*> Comment 4 <*> Comment 5 <*> Communication By Eun Caban Rn 5 <*> Communication By Eun Caban Rn 5 <*> Communication By Eun Caban Rn 5 <*> Date and Time 5 <*> Date and Time 5 <*> Date and Time 5 <*> Communication To 5 <*> Communication To 5 <*> Communication To 5 <*> Comment 5 <*> Comment 5 <*> Comment 12/22/18 15:53:33 Regional Coordinator: [id number] Modifier: [id number] <*> Communication By Monica Bustillos Rn 3 <*> Communication By Monica Bustillos Rn 3 <*> Date and Time 3 <*> Date and Time 3 <*> Communication To 3 <*> Communication To 3 <*> Comment 3 <*> Comment 12/22/18 14:56:30 Regional Coordinator: [id number] Modifier: [id number] <*> Communication By Monica Bustillos, Rn 2 <*> Communication By Monica Bustillos Rn 2 <*> Date and Time 2 <*> Date and Time 2 <*> Communication To 2 <*> Communication To 2 <*> Comment 2 <*> Comment [facility] IntraOp Counts Verification Entry 1 Procedure Lumbar Fusion Posterior 3 Level Count Info Count Type Sponge, Sharps, Miscellaneous Counts Verification Baseline/pre-procedure Sequence Counts Performed By Count Performed By KENNY IGNACIO (Scrub) Count Performed By Monica Bustillos Rn (RN) Last Modified By: Monica Bustillos Rn 12/22/18 12:36:09 [facility] IntraOp Counts Final Entry 1 Procedure Lumbar Fusion Posterior 3 Level Final Count Info Count Type Sponge, Sharps, Miscellaneous Counts Verification Skin Closure/end of Sequence procedure Counts Performed By Count Performed By ARCHIE RUANO (Scrub) Count Performed By Eun Caban Rn (RN) Last Modified By: Monica Bustillos Rn 12/22/18 17:20:13 [facility] IntraOp Counts Final Audit 12/22/18 17:20:13 Regional Coordinator: [id number] Modifier: [id number] <*> Procedure Lumbar Fusion Posterior 3 Level 1 <*> Count Performed By (Scrub) KENNY IGNACIO 12/22/18 17:17:55 Regional Coordinator: [id number] Modifier: [id number] <*> Procedure Lumbar Fusion Posterior 3 Level 1 <*> Count Performed By (RN) Monica Bustillos Rn [facility] IntraOp Departure from OR Entry 1 Integumentary Assessment Integumentary WDL Assessment WDL Transfer/Handoff Transfer to PACU Phase I Handoff Method Phone call Post-op Transport Stretcher/Marcusrney Via Patient Transport THERESA SHORT PA, Accompanied by Nadia Valdivia Crna Last Modified By: Monica Bustillos Rn 12/22/18 13:17:25 [facility] IntraOp Drains and Tubes Entry 1 Device Type Zia Drain Drain/Tube Activity Inserted Drain/Tube Suction Bulb Drain/Tube Drainage Serosanguineous Device Location OP SITE Method of Drainage Compression Last Modified By: Monica Bustillos Rn 12/22/18 13:18:18 [facility] IntraOp Dressing and Packing Entry 1 Type Dressing Wound Dressing Item Occlusive dressing Applied By AVIVA VILLALPANDO PA-C Last Modified By: Monica Bustillos Rn 12/22/18 17:32:15 [facility] IntraOp Dressing and Packing Audit 12/22/18 17:32:15 Regional Coordinator: [id number] Modifier: [id number] <+> 1 Applied By [facility] IntraOp Fire Risk Assessment Entry 1 Fire Info Surgical Site or 0- No Incision Above the Xyphoid Open O2 Source 0- No (Mask or Cannula) Available Ignition 1- Yes (ESU, Laser, Light Source) Fire Risk 1 Assessment Score Fire Score Fire Risk Yes Assessment Complete Fire Risk Monica Bustillos Rn Assessment Verified By Fire Risk 12/22/18 12:37:00 Assessment Verified Date/Time Fire Risk Standard Fire Yes Safety Precautions Followed Last Modified By: Monica Bustillos Rn 12/22/18 13:18:45 [facility] IntraOp General Case Silverware Buffer 1 Case Information OR OR 10 [facility] Case Level 1 Room Verified Yes Wound Class I - Clean Specialty SN Neurosurgery ASA Class 4 Diagnosis Preop Diagnosis LUMBAR REDICULOPATHY Postop Same As Preop No Postop Diagnosis SEE MD POST OP NOTE Last Modified By: Monica Bustillos Rn 12/22/18 13:20:56 [facility] IntraOp General Case Data Audit 12/22/18 13:20:56 Regional Coordinator: [id number] Modifier: [id number] <+> 1 Postop Same As Preop <+> 1 Preop Diagnosis <+> 1 Postop Diagnosis [facility] IntraOp Implant Log Entry 1 Entry 2 Entry 3 Type Tissue Implant Tissue Implant Implant (Synthetic) (Biologic) (Biologic) Implant Log Implant Type Hardware Tissue Implant Type Bone Bone Implant BONE VIVIGEN FRMBLE BONE FT DBX [id number] Identification [facility]LL [facility]-[id number] [facility]-[id number] Description Implant Quantity 1 1 2 Implant Site OP SITE OP SITE OPSITE Implant [id number] Identification Model Number Implant [id number] Identification Serial Number Implant Identification Lot Number Implant Lifenet:Lifenet Musculoskeletal SYNTHES SPINE Identification Transplant Srv Transplant Fnd Cattle Killer Name: Implant [id number] Identification Catalog Number Implant Size PREBENT SCOLI RAE Implant Has an Yes Yes No Expiration Date Implant Expiration 11/27/19 06/12/20 Date Wasted Radioactive Material Time Implanted Tissue Implant Continue for Tissue Implant Documentation Tissue Identification Number Graft Prep Per Cattle Killer Instructions: Tissue Preparation Method: Reconstitution Solution: Reconstitution Solution Lot Number Reconstitution Solution Expiration Date: Thawing Solution Thawing Solution Lot Number Thawing Solution Expiration Date Preparation Materials, Other Preparation Materials, Other Lot Number Preparation Materials, Other Expiration Date Tissue Prepared/Processed By Cattle Killer Paperwork Completed Implant Type Comment Last Modified By: Monica Bustillos Rn Burdine, Teresa A, Rn Burdine, Teresa A, Rn 12/22/18 15:37:38 12/22/18 17:42:10 12/22/18 17:42:10 Entry 4 Entry 5 Entry 6 Type Implant (Synthetic) Implant (Synthetic) Implant (Synthetic) Implant Log Implant Type Hardware Hardware Hardware Tissue Implant Type Implant SCR SPNE ALIN FIX FEN SCR SPNE ALIN FIX FEN SCR SPNE ALIN FIX Identification [id number] Description Implant Quantity 6 8 4 Implant Site OPSITE OPSITE OPSITE Implant Identification Model Number Implant Identification Serial Number Implant Identification Lot Number Implant J&J:Depuy:Depuy Spine J&J:Depuy:Depuy Spine J&J:Depuy:Depuy Spine Identification Cattle Killer Name: Implant [id number] Identification Catalog Number Implant Size Implant Has an No No No Expiration Date Implant Expiration Date Wasted Radioactive Material Time Implanted Tissue Implant Continue for Tissue Implant Documentation Tissue Identification Number Graft Prep Per Cattle Killer Instructions: Tissue Preparation Method: Reconstitution Solution: Reconstitution Solution Lot Number Reconstitution Solution Expiration Date: Thawing Solution Thawing Solution Lot Number Thawing Solution Expiration Date Preparation Materials, Other Preparation Materials, Other Lot Number Preparation Materials, Other Expiration Date Tissue Prepared/Processed By Cattle Killer Paperwork Completed Implant Type Comment Last Modified By: Monica Bustillos Rn Burdine, Teresa A, Rn Burdine, Teresa A, Rn 12/22/18 15:37:38 12/22/18 17:42:10 12/22/18 17:42:10 Entry 7 Entry 8 Entry 9 Type Implant (Synthetic) Implant (Synthetic) Implant (Synthetic) Implant Log Implant Type Hardware Hardware Hardware Tissue Implant Type Implant SCR ILIAM 9MM X 100MM MIS SUNNI PLY SCRW SET CAGE BULLET CONCORDE Identification [id number] Description Implant Quantity 2 20 1 Implant Site OPSITE OPSITE OPSITE Implant Identification Model Number Implant Identification Serial Number Implant Identification Lot Number Implant J&J:Depuy:Depuy Spine J&J:Depuy:Depuy Spine J&J:Depuy:Depuy Spine Identification Cattle Killer Name: Implant [id number] 1867-15-000 [id number] Identification Catalog Number Implant Size Implant Has an No No No Expiration Date Implant Expiration Date Wasted Radioactive Material Time Implanted Tissue Implant Continue for Tissue Implant Documentation Tissue Identification Number Graft Prep Per Cattle Killer Instructions: Tissue Preparation Method: Reconstitution Solution: Reconstitution Solution Lot Number Reconstitution Solution Expiration Date: Thawing Solution Thawing Solution Lot Number Thawing Solution Expiration Date Preparation Materials, Other Preparation Materials, Other Lot Number Preparation Materials, Other Expiration Date Tissue Prepared/Processed By Cattle Killer Paperwork Completed Implant Type Comment Last Modified By: Monica Bustillos Rn Burdine, Teresa A, Rn Burdine, Teresa A, Rn 12/22/18 17:42:10 12/22/18 17:42:10 12/22/18 17:42:10 Entry 10 Entry 11 Type Implant (Synthetic) Implant (Synthetic) Implant Log Implant Type Hardware Hardware Tissue Implant Type Implant CAGE BULLET CONCORDE CONCORDE BUL ANGELIKA Identification [id number] Description Implant Quantity 1 1 Implant Site OPSITE OPSITE Implant Identification Model Number Implant Identification Serial Number Implant Identification Lot Number Implant J&J:Depuy:Depuy Spine J&J:Depuy:Depuy Spine Identification Cattle Killer Name: Implant [id number] Identification Catalog Number Implant Size Implant Has an No No Expiration Date Implant Expiration Date Wasted Radioactive Material Time Implanted Tissue Implant Continue for Tissue Implant Documentation Tissue Identification Number Graft Prep Per Cattle Killer Instructions: Tissue Preparation Method: Reconstitution Solution: Reconstitution Solution Lot Number Reconstitution Solution Expiration Date: Thawing Solution Thawing Solution Lot Number Thawing Solution Expiration Date Preparation Materials, Other Preparation Materials, Other Lot Number Preparation Materials, Other Expiration Date Tissue Prepared/Processed By Cattle Killer Paperwork Completed Implant Type Comment Last Modified By: Monica Bustillos Rn Burdine, Teresa A, Rn 12/22/18 17:42:10 12/22/18 17:42:10 [facility] [facility] IntraOp Implant Log Audit 12/22/18 17:42:10 Regional Coordinator: [id number] Modifier: [id number] <+> 3 Implant Identification Description <+> 3 Implant Identification Cattle Killer Name: <+> 3 Implant Size <+> 3 Implant Site <+> 3 Implant Quantity <+> 3 Implant Type <+> 3 Implant Has an Expiration Date <+> 3 Type <+> 4 Implant Identification Description <+> 4 Implant Identification Cattle Killer Name: <+> 4 Implant Site <+> 4 Implant Quantity <+> 4 Implant Identification Catalog Number <+> 4 Implant Type <+> 4 Implant Has an Expiration Date <+> 4 Type <+> 5 Implant Identification Description <+> 5 Implant Identification Cattle Killer Name: <+> 5 Implant Site <+> 5 Implant Quantity <+> 5 Implant Identification Catalog Number <+> 5 Implant Type <+> 5 Implant Has an Expiration Date <+> 5 Type <+> 6 Implant Identification Description <+> 6 Implant Identification Cattle Killer Name: <+> 6 Implant Site <+> 6 Implant Quantity <+> 6 Implant Identification Catalog Number <+> 6 Implant Type <+> 6 Implant Has an Expiration Date <+> 6 Type <+> 7 Implant Identification Description <+> 7 Implant Identification Cattle Killer Name: <+> 7 Implant Site <+> 7 Implant Quantity <+> 7 Implant Identification Catalog Number <+> 7 Implant Type <+> 7 Implant Has an Expiration Date <+> 7 Type <+> 8 Implant Identification Description <+> 8 Implant Identification Cattle Killer Name: <+> 8 Implant Site <+> 8 Implant Quantity <+> 8 Implant Identification Catalog Number <+> 8 Implant Type <+> 8 Implant Has an Expiration Date <+> 8 Type <+> 9 Implant Identification Description <+> 9 Implant Identification Cattle Killer Name: <+> 9 Implant Site <+> 9 Implant Quantity <+> 9 Implant Identification Catalog Number <+> 9 Implant Type <+> 9 Implant Has an Expiration Date <+> 9 Type <+> 10 Implant Identification Description <+> 10 Implant Identification Cattle Killer Name: <+> 10 Implant Site <+> 10 Implant Quantity <+> 10 Implant Identification Catalog Number <+> 10 Implant Type <+> 10 Implant Has an Expiration Date <+> 10 Type <+> 11 Implant Identification Description <+> 11 Implant Identification Cattle Killer Name: <+> 11 Implant Site <+> 11 Implant Quantity <+> 11 Implant Identification Catalog Number <+> 11 Implant Type <+> 11 Implant Has an Expiration Date <+> 11 Type [facility] IntraOp Intraoperative Assessment Entry 1 Handoff Reported to Monica Bustillos Rn Handoff Method Bedside/Face to face Valid History / Yes Physical in Chart Preoperative Yes Checklist Reviewed/Evaluated Allergies Reviewed Yes Patient is Latex No Sensitive Isolation Not applicable Precautions Noted Level of WDL Consciousness (WDL = Alert, Oriented to Person, Place, and Time) Skin Assessment No Verified Present Upon IVs Arrival to OR Last Modified By: Monica Bustillos Rn 12/22/18 13:21:44 [facility] IntraOp Intraoperative Equipment Entry 1 Type Equipment Equipment Equipment Ganesh Suction System Setting 200MMHG Intraop Monitoring Electrocardiogram Three lead placement (ECG) Electrode Placement Blood Pressure Non-Invasive BP Device Source Blood Pressure Arm, right upper Location Pulse Oximeter Hand, left Probe Site Antiembolic Devices Antiembolic Devices Sequential compression device, knee high Antiembolic Device Bilateral Location Antiembolic Device [id number] ID Number Scopes Photo/Video Documentation Photo No Video No Last Modified By: Monica Bustillos Rn 12/22/18 13:22:24 [facility] IntraOp Medication Admin Entry 1 Entry 2 Entry 3 Medication/Irrigant Bacitracin 50,00units lidocaine 1% w/ Marcaine 0.25% 30ml powder vial epinephrine 1:100,000 vial - [id number] 30ml vial - [id number] Combo Med List Time Administered Route of MIXED WITH NS IRRIGATION LOCAL LOCAL Administration Dose Dose 82594 10 10 Unit of Measure units ml ml Volume Administered By HEIDE KAT TUTT, MATTHEW PAIGE, TUTT, MATTHEW PAIGE, MD-SNU -SNU -SNU Procedure Irrigation Irrigant Volume In Irrigant Volume Out Last Modified By: Monica Bustillos Rn Burdine, Teresa A, Rn Burdine, Teresa A, Rn 12/22/18 13:24:19 12/22/18 13:24:19 12/22/18 13:24:19 Entry 4 Entry 5 Entry 6 Medication/Irrigant Neosporin 15Gm ointment SEALR AQUAMANTYS BIPLR SPNG SURGFOAM - [id number] Combo Med List Time Administered Route of TOPICAL TOPICAL Administration Dose Dose 1 1 Unit of Measure pkt pkt Volume Administered By HEIDE KAT TUTT, MATTHEW PAIGE, TUTT, MATTHEW PAIGE, MD-SNU MD-SNU MD-SNU Procedure Irrigation Irrigant Volume In Irrigant Volume Out Last Modified By: Monica Bustillos Rn Burdine, Teresa A, Rn Burdine, Teresa A, Rn 12/22/18 13:24:19 12/22/18 13:24:19 12/22/18 13:24:19 Entry 7 Entry 8 Medication/Irrigant thrombin 5000units vancomycin -- [id number] topical powder - [id number] Combo Med List Time Administered Route of TOPICAL POWDER IN WOUND Administration Dose Dose 5000 1 Unit of Measure units gram Volume Administered By HEIDE KAT TUTT, MATTHEW PAIGE, MD-SNU MD-SNU Procedure Irrigation Irrigant Volume In Irrigant Volume Out Last Modified By: Monica Bustillos Rn Burdine, Teresa A, Rn 12/22/18 13:24:19 12/22/18 16:41:25 [facility] IntraOp Medication Admin Audit 12/22/18 16:41:25 Regional Coordinator: [id number] Modifier: [id number] <+> 8 Medication/Irrigant <+> 8 Route of Administration <+> 8 Administered By <+> 8 Dose <+> 8 Unit of Measure [facility] IntraOp Patient Positioning Entry 1 Procedure Lumbar Fusion Posterior 3 Level Body Position Prone Left Arm Position Secured on padded arm board Right Arm Position Secured on padded arm board Left Leg Position Uncrossed, parallel Right Leg Position Uncrossed, parallel Feet Uncrossed Yes Pressure Points Yes Checked Positioning Devices Head Rest, Pad, Arm, Pillows, Safety Strap, Thighs, Table, Spinal Positioned By HEIDE KAT MD-SNU, Monica Bustillos Rn, JOANIE BONNER RN, Nadia Valdivia, Lopez Position Verified Positioning Yes Verified by Anesthesia Positioning Yes Verified by Surgeon Last Modified By: Monica Bustillos Rn 12/22/18 13:25:30 [facility] IntraOp Sign In Entry 1 Patient, Site, Yes Procedure Identified Surgical Consent Yes Confirmed Relevant Surgical Yes Documents Available Surgical Site Yes Marked by person performing procedure Anesthesia Machine Yes Check Completed Medication Checks Yes Completed Allergies Yes Airway Difficult Yes Airway/Aspiration Risk Difficult Yes Airway/Aspiration Intervention Equipment Available Blood Loss Risk Yes Blood Loss Yes Intervention Equipment Prepared and Ready Blood Identifiers Yes Verified Per Policy Hypothermia Risk Yes Warming Measures Yes Taken Last Modified By: Monica Bustillos Rn 12/22/18 13:25:49 [facility] IntraOp Sign Out Entry 1 RN Confirmation Surgical Yes Procedure(s) Identified Instrument, Sponge Yes and Sharps Counts Correct/Documented Equipment Problems Yes Documented Specimen Labeled Yes Correctly Urinary Catheter Yes Documented in IView Pillai Patient Yes Recovery Concerns Reviewed with Anesthesia Provider, Surgeon and RN Pillai Patient Yes Management Concerns Reviewed with Anesthesia Provider, Surgeon and RN Safety Checklist Yes Elements Complete? RN Sign Out Eun Caban Rn Signature RN Sign Out 12/22/18 18:09:00 Signature Date/Time Plan of Care Outcome - [...] of Care Outcome - Xray/Images OUTCOME STATEMENT: Goal met Absence of observable signs or symptoms of radiation injury Plan of Care Outcome - Counts OUTCOME STATEMENT: Goal met Absence of signs and symptoms of injury related to extraneous objects Last Modified By: Monica Bustillos Rn 12/22/18 18:09:18 [facility] IntraOp Sign Out Audit 12/22/18 18:09:18 Regional Coordinator: [id number] Modifier: [id number] <*> RN Sign Out Signature Monica Bustillos Rn 1 <+> RN Sign Out Signature Date/Time [facility] IntraOp Skin Prep Entry 1 Entry 2 Procedure Lumbar Fusion Posterior Lumbar Fusion Posterior 3 Level 3 Level Prescribed Yes Yes Pre-Surgical Prep Completed Prep Area OP SITE OP SITE Intraop Prep Integumentary WDL WDL Assessment WDL WDL Patient Exceptions Patients Normal Integumentary Variance(s) Integumentary Assessment Comment Prep Agents Alcohol, Chlorhexadine DuraPrep gluconate Prep by HEIDE KAT Burdine, Teresa A, Rn MD-SNU Skin Prep Comment Hair Removal Methods No hair removal No hair removal performed performed Hair Removal Site Hair Removal By Last Modified By: Monica Bustillos Rn Burdine, Teresa A, Rn 12/22/18 13:27:01 12/22/18 13:27:01 [facility] IntraOp Surgical Procedures Entry 1 Procedure Lumbar Fusion Posterior 3 Level Additional ([id number]) Procedure Description Primary Procedure Yes Primary Surgeon HEIDE KAT MD-SNU Start 12/22/18 13:14:00 Stop 12/22/18 17:20:00 Anesthesia Type General Specialty SN Neurosurgery Wound Class I - Clean Last Modified By: Monica Bustillos Rn 12/22/18 18:09:20 General Comments: ANCEF 2GM IV PER ANESTHESIA [facility] IntraOp Surgical Procedures Audit 12/22/18 18:09:20 Regional Coordinator: [id number] Modifier: [id number] <*> Stop 1 <*> Stop [facility] IntraOp Temp Regulation Devices Entry 1 Temp Regulation Temperature Forced Air Warming Regulation Device device Temperature Upper body Regulation Site Last Modified By: Monica Bustillos Rn 12/22/18 12:37:27 [facility] IntraOP Time Out Entry 1 Electronically signed by Taryn [facility] Conversion Sales Architect Cerner at 11/12/2022 9:34 PM CDT documented in this encounter Plan of Treatment Not on file documented as of this encounter Visit Diagnoses Not on filedocumented in this encounter
--- OUTSIDE RECORDS SUMMARY | 2025-01-27 13:09 | XMS_ITS | Encounter Summary ---
Author Organization [employer] ([place], [place], [place], [place]) Address [address] [place] [address] Care Team Providers Care Client Solutions Manager Name Role Phone Unavailable Primary Care Provider Unavailabl e Encounter Details Date Type Department Care Team (Late st Contact Info) Description 12/22/2018 Transcribed Document [facility] [place] [facility] [place] [address] ProviderAgnieszka MD [address], [place] [address] Social History Tobacco Use Types Packs/Day Years Used Date Smoking Tobacco: Never Assessed Sex and Gender Information Value Date Recorded Sex Assigned at Not on file Legal Sex Male 2:38 PM CDT Gender Identity Not on file Sexual Orientation Not on file documented as of this encounter Miscellaneous Notes * Cerner Conversion Note - Historical ProviderMD - 12/22/2018 1:14 PM CDT [facility] Main OR PACU Summary Primary Physician: HEIDE KAT MD-[facility] Finalized Date/Time: 12/22/18 21:02:24 Pt. Name: SIMBA MAYEN JR/Sex: 1950 Male Med Rec #: [id number] Physician: HEIDE KAT MD-SN Financial #: [id number] Pt. Type: I Room/Bed: 63/1 Admit/Disch: 12/22/18 06:36:00 - Institution: [facility] Main OR PACU I Case Times Entry 1 In PACU I 12/22/18 18:11:00 Ready for PACU 12/22/18 20:27:00 Discharge Discharge from PACU 12/22/18 20:27:00 I Last Modified By: DARYN DOHERTY RN 12/22/18 21:02:02 Finalized By: DARYN DOHERTY, RN Document Signatures Signed By: DARYN DOHERTY RN 12/22/18 21:02 documented in this encounter Plan of Treatment Not on file documented as of this encounter Visit Diagnoses Not on filedocumented in this encounter
--- OUTSIDE RECORDS SUMMARY | 2025-01-27 13:09 | XMS_ITS | Encounter Summary ---
Author Organization [employer] ([place], [place], [place], [place]) Address [address] [place] [address] Care Team Providers Care Fuse Assembler Name Role Phone Unavailable Primary Care Provider Unavailabl e Encounter Details Date Type Department Care Team (Late st Contact Info) Description 11/04/2019 Transcribed Document [facility] [place] Family Medicine [address] [place] [address] ProviderAgnieszka MD [address] [place], [place] [address] Social History Tobacco Use Types Packs/Day Years Used Date Smoking Tobacco: Never Assessed Sex and Gender Information Value Date Recorded Sex Assigned at Not on file Legal Sex Male 2:38 PM CDT Gender Identity Not on file Sexual Orientation Not on file documented as of this encounter Miscellaneous Notes * Cerner Conversion Note - Historical ProviderMD - 11/04/2019 4:22 PM CDT Spiritual Care Short Form Entered On: 11/04/2019 16:29 EDT Performed On: 11/04/2019 16:22 EDT by KOBI PALACIOS General Information, Spiritual Care Intervention/Comment/Summary Points : PreSurgery visit; Provided reflective listening and prayer upon request KOBI PALACIOS - 11/04/2019 16:28 EDT documented in this encounter Plan of Treatment Not on file documented as of this encounter Visit Diagnoses Not on filedocumented in this encounter
--- OUTSIDE RECORDS SUMMARY | 2025-01-27 13:09 | XMS_ITS | Referral Summary ---
Author Organization [employer] ([place], [place], [place], [place]) Address [address] [place] [address] Care Team Providers Care Structural Ironworker Name Role Phone Unavailable Primary Care [...]
--- OUTSIDE RECORDS SUMMARY | 2025-01-27 13:09 | XMS_ITS | Encounter Summary ---
Author Organization [employer] ([place], [place], [place], [place]) Address [address] [place] [address] Care Team Providers Care Lpn Or Medical Assistant Name Role Phone Unavailable Primary Care Provider Unavailabl e Encounter Details Date Type Department Care Team (Late st Contact Info) Description 11/07/2019 Transcribed Document [facility] [place] [facility] [place] [address] ProviderAgnieszka MD [address] [place], [place] [address] Social History Tobacco Use Types Packs/Day Years Used Date Smoking Tobacco: Never Assessed Sex and Gender Information Value Date Recorded Sex Assigned at Not on file Legal Sex Male 2:38 PM CDT Gender Identity Not on file Sexual Orientation Not on file documented as of this encounter Miscellaneous Notes * Cerner Conversion Note - Agnieszka ProviderMD - 11/07/2019 10:36 AM CDT Patient: SIMBA MAYEN JR Age: [...] his feet or even wiggle his toes. PAST MEDICAL HISTORY Rheumatoid Arthritis on Remicade [...] mL: 2 Gram, 200 mL/Hr, IV Piggyback, [id number] docusate sodium: 200 mg, Oral, BID hydrALAZINE: 10 mg, IV Push, Q6H, PRN: [...] mL: 1,250 mg, 250 mL/Hr, IV Piggyback, [id number] Pending Complete fentaNYL: 25 mcg, IV Push, Q10Min Documented Medications Documented Azilect 1 mg oral tablet: 1 Tab, Oral, Daily, 30 Tab, 0 Refill(s) Remicade: 10 mg/kg, IntraVENous, S4Ciosy, for Ulcerative Colitis; Last dose: 09/29/2019, 0 Refill(s) carbidopa-levodopa 25 mg-100 mg oral tablet: 1 Tab, Oral, QID, 120 Tab, 0 Refill(s), Medications (25) Active Scheduled: (10) #NaCl 0.9% *FLUSH* inj 10 mL 10 mL, IV Push, Q8H #NaCl 0.9% *FLUSH* inj 10 mL 10 mL, IntraCATHeter, Q12H acetaminophen 325 mg tab 650 mg 2 Tab, Oral, Q4H amLODIPine 10 mg tab 10 mg 1 Tab, Oral, Daily carbidopa/levodopa 25/100 mg tab 1 Tab, Oral, QID cefEPIME + NaCl 0.9% *MBP* 100 mL 2 Gram, IV Piggyback, [id number] docusate sodium 100 mg cap 200 mg 2 Cap, Oral, BID lactobacillus acidophilus cap 1 Cap, Oral, Daily rasagiline 1 mg tab 1 mg 1 Tab, Oral, Daily vancomycin + NaCl 0.9% 250 mL 1,250 mg, IV Piggyback, [id number] Continuous: (1) lactated ringers 1,000 mL 1,000 mL, IntraVENous, 75 mL/Hr PRN: (14) albuterol-ipratropium inh 3 mL 3 mL, Nebulized Inhalation, RT_Q6H alteplase + sterile water 1 mL 1 mg, IntraCATHeter, 1-Time bisacodyl 10 mg supp 10 mg 1 Supp, Rectal, BID bisacodyl EC 5 mg tab 10 mg 2 Tab, Oral, BID diazepam 10 mg/2 mL inj syr 5 mg 1 mL, IV Push, Q6H hydrALAZINE 20 mg/1 mL inj 10 mg 0.5 mL, IV Push, Q6H HYDROmorphone 1 mg/1 mL inj 0.5 mg 0.5 mL, IV Push, Q1H HYDROmorphone 1 mg/1 mL inj 0.25 mg 0.25 mL, IV Push, Q1H morphine 2 mg/1 ml inj 2 mg 1 mL, IV Push, Q2H Na biphos-Na phos 19 g-7 g enema 133 mL, Rectal, Daily ondansetron 4 mg/2 mL inj 4 mg 2 mL, IV Push, Q4H oxyCODONE 5 mg tab 5 mg 1 Tab, Oral, Q4H oxyCODONE 5 mg tab 10 mg 2 Tab, Oral, Q4H polyethylene glycol 3350 pwd 17 g pkt 17 Gram 1 Packet, Oral, Daily Problem list: All Problems Parkinson disease / SNOMED CT 57926327 / Confirmed Scoliosis / SNOMED CT 889549309 / Confirmed Colitis / SNOMED CT 4859542580 / Confirmed Arthritis / SNOMED CT 9952952 / Confirmed 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 History of obstructive sleep apnea / IMO 89372244 / Confirmed, Active Problems (6) Arthritis Colitis DJD (degenerative joint disease) of thoracic spine History of obstructive sleep apnea Parkinson disease Scoliosis Physical Examination VS/Measurements Vitals Signs (last 24 hrs) Last Charted Minimum Maximum Temp 98.7 (NOV 06 05:58) 97.8 (NOV 06 00:00) 99.3 (NOV 05 18:10) Mon HR 99 (NOV 06 05:58) 23 (NOV 05 17:10) 107 (NOV 05 18:30) Resp Rate 18 (NOV 06 05:58) 16 (NOV 05 18:10) 18 (NOV 05 15:05) SBP 129 (NOV 06 05:58) 97 (NOV 05 18:30) 133 (NOV 05 14:45) DBP 75 (NOV 06 05:58) 60 (NOV 05 18:30) H 96 (NOV 05 14:45) MAP 93 (NOV 06 02:57) 72 (NOV 05 18:30) 110 (NOV 05 14:45) SpO2 L 90 (NOV 06 02:57) L 90 (NOV 06 02:57) 100 (NOV 05 14:45) General: alert; No acute distress. Eye: Normal conjunctiva, nonicteric. HENT: Normocephalic. Traumatic Neck: Supple. Respiratory: Lungs are clear to auscultation , Respirations are non-labored, . Cardiovascular: Normal rate, Regular rhythm, No murmur noted, No edema. Gastrointestinal: Soft, Non-tender, Non-distended, Normal bowel sounds. Musculoskeletal: Numbness noted and bilateral lower extremities and patient is not moving bilateral lower extremities. Reports some mild pain and back in area of surgery. Integumentary: Warm, Moist, No pallor, No rash. Neurologic: Alert and oriented Psychiatric: Cooperative, Appropriate mood & affect. Review / Management Results review: Labs (Last four charted values) WBC 7.2 (NOV 06) 7.2 (NOV 05) 7.5 (NOV 04) 6.5 (OCT 08) HB L 9.4 (NOV 06) L 11.7 (OCT 11) 14.7 (OCT 10) L 12.2 (OCT 08) HCT L 28.9 (NOV 06) L 36.4 (OCT 11) 49.8 (OCT 10) L 37.6 (OCT 08) Plt 184 (OCT 12) 230 (OCT 11) 240 (OCT 10) 280 (OCT 09) Na L 135 (OCT 12) L 133 (OCT 11) 136 (OCT 10) 139 (OCT 08) K 4.1 (OCT 12) 4.2 (OCT 11) 4.0 (OCT 10) 3.6 (OCT 08) Cl 104 (OCT 12) 103 (OCT 11) 104 (OCT 10) 109 (OCT 08) CO2 27 (OCT 12) 27 (OCT 11) 26 (OCT 10) 25 (OCT 08) BUN 11 (OCT 12) 9 (OCT 11) 12 (OCT 10) 15 (OCT 08) Cr L 0.60 (OCT 12) 0.70 (OCT 11) 0.80 (OCT 10) 0.70 (OCT 08) Glu R 98 (OCT 12) 98 (OCT 11) 95 (OCT 10) 93 (OCT 08) Ca L 7.8 (OCT 12) L 8.3 (OCT 11) 8.4 (OCT 10) 8.8 (OCT 08) Lactic 1.3 (OCT 07) PT 11.3 (OCT 10) 11.2 (OCT 07) INR 1.1 (APR 10) 1.1 (NOV 01) PTT H 36.2 (NOV 03) AST 15 (NOV 06) 19 (NOV 05) 16 (NOV 01) ALT [...] and sensitivity reports an just antibiotics accordingly ?Continue to follow physical exam and radiological reports an just therapy as indicated ?Follow daily labs while in hospital and trend results Dr. Alyssa Bowens has obtained history, performed the physical examination and formulated the above plan of care Vinicio Fine APRN for Dr. Alyssa DONATO DC Electronically signed by [facility] Conversion Rack Pusher Cerner at 11/12/2022 9:35 PM CDT documented in this encounter Plan of Treatment Not on file documented as of this encounter Visit Diagnoses Not on filedocumented in this encounter
--- OUTSIDE RECORDS SUMMARY | 2025-01-27 13:09 | XMS_ITS | Encounter Summary ---
Author Organization [email or web address] ([place], [place], [place], [place]) Address [address] [place] [address] Care Team Providers Care Frame Builder Name Role Phone Unavailable Primary Care Provider Unavailabl e Encounter Details Date Type Department Care Team (Late st Contact Info) Description 11/08/2019 Transcribed Document [facility] [place] Family Medicine [address] [place] [address] ProviderAgnieszka MD [address], [place] [id number] Social History Tobacco Use Types Packs/Day Years Used Date Smoking Tobacco: Never Assessed Sex and Gender Information Value Date Recorded Sex Assigned at Not on file Legal Sex Male 2:38 PM CDT Gender Identity Not on file Sexual Orientation Not on file documented as of this encounter Miscellaneous Notes * Cerner Conversion Note - Historical ProviderMD - 11/08/2019 7:38 AM CDT Attempt to Treat, OT Entered On: 11/08/2019 7:39 EDT Performed On: 11/08/2019 7:38 EDT by MARSHA JOSE OTR/Lc Attempt to Treat Inability to Treat Comment : Order to resume therapy placed after 1st surgery. Pt has since returned to surgery. Will await reorder from when appropriate. MARSHA JOSE OTR/Lc - 11/08/2019 7:38 EDT documented in this encounter Plan of Treatment Not on file documented as of this encounter Visit Diagnoses Not on filedocumented in this encounter
--- OUTSIDE RECORDS SUMMARY | 2025-01-27 13:09 | XMS_ITS | Encounter Summary ---
Author Organization [employer] ([place], [place], [place], [place]) Address [address] [place] [address] Care Team Providers Care Clerk To Justice Name Role Phone Unavailable Primary Care Provider Unavailabl e Encounter Details Date Type Department Care Team (Late st Contact Info) Description 11/03/2019 Transcribed Document [facility] [place] Family Medicine Counts include [address] beds [facility] [place] [address] ProviderAgnieszka MD [address], [place] [address] Social History Tobacco Use Types Packs/Day Years Used Date Smoking Tobacco: Never Assessed Sex and Gender Information Value Date Recorded Sex Assigned at Not on file Legal Sex Male 2:38 PM CDT Gender Identity Not on file Sexual Orientation Not on file documented as of this encounter Miscellaneous Notes * Cerner Conversion Note - Agnieszka ProviderMD - 11/03/2019 9:17 AM CDT Patient: SIMBA MAYEN JR Age: [...] not tolerate lying on the hard table PAST MEDICAL HISTORY Rheumatoid Arthritis on Remicade [...] Status Current medications: (Selected) Inpatient Medications Ordered cefepime + Sodium Chloride 0.9% intravenous solution 50 mL: 2 Gram, 100 mL/Hr, IV Piggyback, [id number] lactobacillus acidophilus: 1 Cap, Oral, Daily vancomycin + Sodium Chloride 0.9% intravenous solution 250 mL: 1,250 mg, 250 mL/Hr, IV Piggyback, [id number] Physical Examination VS/Measurements Vitals Signs (last 24 hrs) Last Charted Minimum Maximum Temp 97.7 (NOV 02 06:19) 97.7 (NOV 02 06:19) 98.6 (NOV 02 03:30) Apical HR 64 (NOV 02 03:54) 64 (NOV 02 03:54) 72 (NOV 01 11:09) Mon HR 92 (NOV 02 06:19) 86 (NOV 01 23:30) 92 (NOV 02:19) Resp Rate 18 (NOV 02:19) 16 (NOV 01 18:30) 18 (NOV 01 [...] (NOV 01 18:30) 98 (NOV 01 23:30) , Measurements from flowsheet : Measurements 11/02/2019 3:16 EDT Height Source Stated Height Entry Format [place] Height/Length, ETHIOPIAN (ft) 5 ft Height/Length ETHIOPIAN 9 Inch CLINICALHEIGHT 175.26 cm [place] Body Weight 70 kg Weight Source Standing scale Weight Entry Format [place] Weight Trinid[place] lb 178 lb Weight Trinidadian oz 6 oz CLINICALWEIGHT 81.08 kg Body Surface Area (BSA) 1.97 m2 Body Mass Index 26.4 kg/m2 HI 11/02/2019 0:47 EDT Height Source Stated Height Entry Format [place] Height/Length, ETHIOPIAN (ft) 5 ft Height/Length ETHIOPIAN 9 Inch CLINICALHEIGHT 175.26 cm [place] Body Weight 69.73 kg Weight Source, ED Critical estimated dosing weight Weight Entry Format [place] Weight Trin[place] lb 205 lb CLINICALWEIGHT 93.18 kg Body Surface Area (BSA) 2.09 m2 Body Mass Index 30.3 kg/m2 HI General: alert; No acute distress. Eye: Normal [...] (NOV 02) 43.0 (NOV 01) Plt 291 (NOV 02) 283 (NOV 01) Na [...]
--- OUTSIDE RECORDS SUMMARY | 2025-01-27 13:09 | XMS_ITS | Encounter Summary ---
Author Organization [employer] ([place], [place], [place], [place]) Address [address] [place] [address] Care Team Providers Care Marketing And Communications Officer Name Role Phone Unavailable Primary Care Provider Unavailabl e Encounter Details Date Type Department Care Team (Late st Contact Info) Description 11/04/2019 Transcribed Document [facility] [place] Family Medicine [address] [place] [address] ProviderAgnieszka MD [address], [place] [address] Social History Tobacco Use Types Packs/Day Years Used Date Smoking Tobacco: Never Assessed Sex and Gender Information Value Date Recorded Sex Assigned at Not on file Legal Sex Male 2:38 PM CDT Gender Identity Not on file Sexual Orientation Not on file documented as of this encounter Miscellaneous Notes * Cerner Conversion Note - Historical ProviderMD - 11/04/2019 5:00 AM CDT Chart Check - Review Order Profile Entered On: 11/04/2019 4:43 EDT Performed On: 11/04/2019 5:00 EDT by Radha Josue Icu Nurse-Health Unit Coord Chart Check Powerplans Initiated/Discontinued as Appropriate : Yes All Active Orders Reviewed : Yes Radha Josue Care Asst-Health Unit Coord - 11/04/2019 4:43 EDT documented in this encounter Plan of Treatment Not on file documented as of this encounter Visit Diagnoses Not on filedocumented in this encounter
--- OUTSIDE RECORDS SUMMARY | 2025-01-27 13:09 | XMS_ITS | Encounter Summary ---
Author Organization [employer] ([place], [place], [place], [place]) Address [address] [place] [address] Care Team Providers Care A And P Mechanic Name Role Phone Unavailable Primary Care Provider Unavailabl e Encounter Details Date Type Department Care Team (Late st Contact Info) Description 11/05/2019 Transcribed Document [facility] [place] [facility] [place] [address] ProviderAgnieszka MD [address] [place] [address] Social History Tobacco Use Types [...] 11:19 AM CDT Pain Assessment Entered On: 11/05/2019 17:13 EDT Performed On: 11/05/2019 16:07 EDT by Sally Azevedo LPN Intervention Information: HYDROmorphone Performed by Sally Azevedo LPN on 11/05/2019 15:37:00 EDT HYDROmorphone,0.5mg IV Push,Peripheral Line 1,Pain (Moderate 4-6) Pain Assessment Pain Assessment : Follow-up assessment Pain Scale Goal : 4 Pain Scale Used : 0-10 Scale Sally Azevedo LPN - 11/05/2019 17:12 EDT Pain Scale Intensity : 6 Sally Azevedo LPN - 11/05/2019 17:12 EDT Image 4 - Images currently included in the form version of this document have not been included in the text rendition version of the form. documented in this encounter Plan of Treatment Not on file documented as of this encounter Visit Diagnoses Not on filedocumented in this encounter
--- OUTSIDE RECORDS SUMMARY | 2025-01-27 13:09 | XMS_ITS | Encounter Summary ---
Author Organization [employer] ([place], [place], [place], [place]) Address [address] [place] [address] Care Team Providers Care Switchboard Operator Supervisor Name Role Phone Unavailable Primary Care Provider Unavailabl e Encounter Details Date Type Department Care Team (Late st Contact Info) Description 12/22/2018 Transcribed Document [facility] [place] Family Medicine [facility] [place] [address] ProviderAgnieszka MD [address], [place] [id number] Social History Tobacco Use Types Packs/Day Years Used Date Smoking Tobacco: Never Assessed Sex and Gender Information Value Date Recorded Sex Assigned at Not on file Legal Sex Male 2:38 PM CDT Gender Identity Not on file Sexual Orientation Not on file documented as of this encounter Miscellaneous Notes * Cerner Conversion Note - Agnieszka ProviderMD - 12/22/2018 5:40 PM CDT Pain Assessment Entered On: 12/23/2018 2:24 EDT Performed On: 12/23/2018 1:18 EDT by Melissa Alexander RN Intervention Information: morphine Performed by Melissa Alexander RN on 12/23/2018 00:48:00 EDT morphine,2mg IV Push,Left Hand,Pain (Moderate 4-6) Pain Assessment Pain Assessment : Follow-up assessment Pain Scale Goal : 4 Pain Scale Used : 0-10 Scale Location : Back Onset : Acute Quality : Throbbing Pain Worsened by : Breathing Pain Intervention, Drug : Medicated Pain Intervention, Non-Drug : Positioning Pain Improved by Intervention : Yes Melissa [...]
--- OUTSIDE RECORDS SUMMARY | 2025-01-27 13:09 | XMS_ITS | Encounter Summary ---
Author Organization [employer] ([place], [place], [place], [place]) Address [address] [place] [address] Care Team Providers Care Refrigerator Cabinetmaker Name Role Phone Unavailable Primary Care Provider Unavailabl e Encounter Details Date Type Department Care Team (Late st Contact Info) Description 12/22/2018 Transcribed Document [facility] [place] Family [facility] [place] [address] ProviderAgnieszka MD [address], [place] [id number] Social History Tobacco Use Types Packs/Day Years Used Date Smoking Tobacco: Never Assessed Sex and Gender Information Value Date Recorded Sex Assigned at Not on file Legal Sex Male 2:38 PM CDT Gender Identity Not on file Sexual Orientation Not on file documented as of this encounter Miscellaneous Notes * Cerner Conversion Note - Historical ProviderMD - 12/22/2018 5:40 PM CDT Pain Assessment Entered On: 12/24/2018 6:37 EDT Performed On: 12/23/2018 21:16 EDT by CORRINA HELLER LPN Intervention Information: oxyCODONE Performed by CORRINA HELLER LPN on 12/23/2018 20:16:00 EDT oxyCODONE,10mg Oral,Pain (Moderate 4-6) Pain Assessment Pain Assessment : Follow-up assessment Pain Scale Goal : 4 Pain Scale Used : 0-10 Scale CORRINA HELLER LPN - 12/24/2018 6:37 EDT Pain Scale Intensity : 2 CORRINA HELLER LPN - 12/24/2018 6:37 EDT Image 4 - Images currently included in the form version of this document have not been included in the text rendition version of the form. documented in this encounter Plan of Treatment Not on file documented as of this encounter Visit Diagnoses Not on filedocumented in this encounter
--- OUTSIDE RECORDS SUMMARY | 2025-01-27 13:09 | XMS_ITS | Encounter Summary ---
Author Organization [employer] ([place], [place], [place], [place]) Address [address] [place] [address] Care Team Providers Care Security Patrol Officer Name Role Phone Unavailable Primary Care Provider Unavailabl e Encounter Details Date Type Department Care Team (Late st Contact Info) Description 11/05/2019 Transcribed Document [facility] [place] Family Medicine [address] [place] [address] ProviderAgnieszka MD [address] [place], [place] [id number] Social History Tobacco Use Types Packs/Day Years Used Date Smoking Tobacco: Never Assessed Sex and Gender Information Value Date Recorded Sex Assigned at Not on file Legal Sex Male 2:38 PM CDT Gender Identity Not on file Sexual Orientation Not on file documented as of this encounter Miscellaneous Notes * Cerner Conversion Note - Historical ProviderMD - 11/05/2019 2:00 AM CDT Endless Track Vehicle Mechanic Details Entered On: 11/05/2019 5:20 EDT Performed On: 11/05/2019 2:00 EDT by Lily Page RN Order Details Transport Mode Order Detail : Stretcher/Gurney Isolation Precautions Order Detail : Standard Precautions Order Detail : N/A IV Order Detail : 1 Oxygen Order Detail : 0 Nurse Collect Order Detail : 0 Lift/Transfer : Independent Central Line Order Detail : No Room Service : Not Appropriate Arterial Line : No Lily Page RN - 11/05/2019 5:20 EDT documented in this encounter Plan of Treatment Not on file documented as of this encounter Visit Diagnoses Not on filedocumented in this encounter
--- OUTSIDE RECORDS SUMMARY | 2025-01-27 13:09 | XMS_ITS | Encounter Summary ---
Author Organization [email or web address] ([place], [place], [place], [place]) Address [address] [place] [address] Care Team Providers Care Surgical Asst Name Role Phone Unavailable Primary Care Provider Unavailabl e Encounter Details Date Type Department Care Team (Late st Contact Info) Description 11/05/2019 Transcribed Document [facility] [place] [address] [place] [address] ProviderAgnieszka MD [address], [place] [address] Social History Tobacco Use Types Packs/Day Years Used Date Smoking Tobacco: Never Assessed Sex and Gender Information Value Date Recorded Sex Assigned at Not on file Legal Sex Male 2:38 PM CDT Gender Identity Not on file Sexual Orientation Not on file documented as of this encounter Miscellaneous Notes * Cerner Conversion Note - Historical ProviderMD - 11/05/2019 1:57 PM CDT Attempt to Treat, PT Entered On: 11/05/2019 13:57 EDT Performed On: 11/05/2019 13:57 EDT by LAVERNE OLSON PT Attempt to Treat Unable to Treat Due To : Patient Unavailable Inability to Treat Comment : new orders noted for s/p posterior lumbar fusion (11/04); however, pt still in surgery at this time; will check back as time permits/appropriate for Re-eval LAVERNE OLSON PT - 11/05/2019 13:57 EDT documented in this encounter Plan of Treatment Not on file documented as of this encounter Visit Diagnoses Not on filedocumented in this encounter
--- OUTSIDE RECORDS SUMMARY | 2025-01-27 13:10 | XMS_ITS | Encounter Summary ---
Author Organization [employer] ([place], [place], [place], [place]) Address [address] [place] [address] Care Team Providers Care Client Support Professional Name Role Phone Unavailable Primary Care Provider Unavailabl e Encounter Details Date Type Department Care Team (Late st Contact Info) Description 11/05/2019 Transcribed Document [facility] [place] Family Medicine [address] [place] [address] ProviderAgnieszka MD [address], [place] [address] Social History Tobacco Use Types Packs/Day Years Used Date Smoking Tobacco: Never Assessed Sex and Gender Information Value Date Recorded Sex Assigned at Not on file Legal Sex Male 2:38 PM CDT Gender Identity Not on file Sexual Orientation Not on file documented as of this encounter Miscellaneous Notes * Cerner Conversion Note - Historical ProviderMD - 11/05/2019 5:00 AM CDT Chart Check - Review Order Profile Entered On: 11/05/2019 6:32 EDT Performed On: 11/05/2019 5:00 EDT by Lily Page RN Chart Check Powerplans Initiated/Discontinued as Appropriate : Yes All Active Orders Reviewed : Yes Lily Page RN - 11/05/2019 6:32 EDT documented in this encounter Plan of Treatment Not on file documented as of this encounter Visit Diagnoses Not on filedocumented in this encounter
--- OUTSIDE RECORDS SUMMARY | 2025-01-27 13:10 | XMS_ITS | Encounter Summary ---
Author Organization [employer] ([place], [place], [place], [place]) Address [address] [place] [address] Care Team Providers Care Fountain Server Name Role Phone Unavailable Primary Care Provider Unavailabl e Encounter Details Date Type Department Care Team (Late st Contact Info) Description 11/05/2019 Transcribed Document [facility] [place] [facility] [place] [address] ProviderAgnieszka MD [address] [place], [place] [phone] Social History Tobacco Use Types Packs/Day Years Used Date Smoking Tobacco: Never Assessed Sex and Gender Information Value Date Recorded Sex Assigned at Not on file Legal Sex Male 2:38 PM CDT Gender Identity Not on file Sexual Orientation Not on file documented as of this encounter Miscellaneous Notes * Cerner Conversion Note - Historical ProviderMD - 11/05/2019 6:00 PM CDT Pain Assessment Entered On: 11/06/2019 1:58 EDT Performed On: 11/05/2019 18:08 EDT by Faye Parekh RN Intervention Information: acetaminophen Performed by Sonya Quezada, Back Roller-Student Nurse on 11/05/2019 17:08:00 EDT acetaminophen,650mg Oral Pain Assessment Pain Assessment : Follow-up assessment Pain Scale Goal : 4 Pain Scale Used : 0-10 Scale Faye Parekh RN - 11/06/2019 1:57 EDT Pain Scale Intensity : Alternate pain scale used Faye Parekh RN - 11/06/2019 1:57 EDT Image 4 - Images currently included in the form version of this document have not been included in the text rendition version of the form. documented in this encounter Plan of Treatment Not on file documented as of this encounter Visit Diagnoses Not on filedocumented in this encounter
--- OUTSIDE RECORDS SUMMARY | 2025-01-27 13:10 | XMS_ITS | Encounter Summary ---
Author Organization [employer] ([place], [place], [place], [place]) Address [address] [place] [address] Care Team Providers Care Developer Advocate Name Role Phone Unavailable Primary Care Provider Unavailabl e Encounter Details Date Type Department Care Team (Late st Contact Info) Description 12/22/2018 Transcribed Document [facility] [place] [facility] [place] [address] ProviderAgnieszka MD [address], [place] [id number] Social History Tobacco Use Types Packs/Day Years [...] PM CDT Pain Assessment Entered On: 12/23/2018 2:23 EDT Performed On: 12/22/2018 23:12 EDT by Melissa Alexander RN Intervention Information: morphine Performed by Melissa Alexander RN on 12/22/2018 22:12:00 EDT morphine,15mg Oral Pain Assessment Pain Assessment : Follow-up assessment Pain Scale Goal : 4 Pain Scale Used : 0-10 Scale Location : Back Onset : Acute Quality : Throbbing Pain Radiation : No Pain Worsened by : Movement Pain Intervention, [...]
--- OUTSIDE RECORDS SUMMARY | 2025-01-27 13:10 | XMS_ITS | Encounter Summary ---
Author Organization [employer] ([place], [place], [place], [place]) Address [address] [place] [address] Care Team Providers Care Client Executive Name Role Phone Unavailable Primary Care Provider Unavailabl e Encounter Details Date Type Department Care Team (Late st Contact Info) Description 11/05/2019 Transcribed Document [facility] [place] Family Medicine [facility] [place] [address] ProviderAgnieszka MD [address], [place] [phone] Social History Tobacco Use Types Packs/Day Years Used Date Smoking Tobacco: Never Assessed Sex and Gender Information Value Date Recorded Sex Assigned at Not on file Legal Sex Male 2:38 PM CDT Gender Identity Not on file Sexual Orientation Not on file documented as of this encounter Miscellaneous Notes * Cerner Conversion Note - Agnieszka ProviderMD - 11/05/2019 9:05 AM CDT Patient: SIMBA MAYEN JR Age: 69 years Sex: Male : 1950 Associated Diagnoses: None Author: BROOKS GORE, [facility] 69yoM with Low Back Pain - R/O Osteo PMH: 12/13 PLIF T10-S1, Parkinson's, 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 11/04 planned revision of T9-T10 Rx Consult: Vancomycin MD: David Hernández Dx: Thoracic Osteo goal trough = 15-20 ID: Branden wt = 81kg I/O = 858 / 515 NKDA Atb: Vanco / Cefepime (Start 11/01) Labs (Last four charted values) WBC 6.5 (NOV 02) 8.7 (NOV 01) HB L 12.2 (NOV 02) 13.5 (NOV 01) HCT L 37.6 (NOV 02) 43.0 (NOV 01) Plt 280 (NOV 03) 291 (OCT 08) 283 (NOV 01) Na 136 (OCT 10) 139 (OCT 08) 137 (NOV 01) K 4.0 (NOV 04) 3.6 (NOV 02) 4.5 (NOV 01) Cl 104 (NOV 04) 109 (NOV 02) 106 (NOV 01) CO2 26 (NOV 04) 25 (NOV 02) 23 (NOV 01) BUN 12 (NOV 04) 15 (NOV 02) 19 (NOV 01) Cr 0.80 (NOV 04) 0.70 (NOV 02) 1.00 (NOV 01) Glu R 95 (NOV 04) 93 (NOV 02) 100 (NOV 01) Ca 8.4 (NOV 04) 8.8 (NOV 02) 8.9 (NOV 01) Lactic 1.3 (NOV 01) Calc CrCl = 66ml/min Vitals Signs (last 24 hrs) Last Charted Minimum Maximum Temp 98.5 (NOV 04 06:50) 97.6 (NOV 03 18:30) 98.5 (NOV 03 14:31) Apical HR 80 (NOV 04 05:54) 80 (NOV 04 05:54) 100 (NOV 03 13:12) Mon HR 95 (NOV 04 06:50) 90 (NOV 03 14:31) 110 (NOV 03 10:37) Resp Rate 18 (NOV 04 06:50) 15 (NOV 04 06:20) 20 (NOV 03 13:12) SBP H 189 (NOV 04 06:50) 135 (NOV 03 13:12) H 189 (NOV 04 06:50) DBP 90 (NOV 04 06:50) 90 (NOV 04 06:50) H 106 (NOV 04 03:00) MAP 117 (NOV 04 06:20) 111 (NOV 03 18:30) 128 (NOV 03 10:37) SpO2 96 (NOV 04 06:50) 95 (NOV 04 03:00) 97 (NOV 03 10:37) Cultures: 11/01 blood - NGTD 11/01 urine [...] Vancomycin 1250mg (~15mg/kg) IV q12h -repeat trough in 1-2 days 2) Monitor for changes in renal function and culture results. 3) Rx to follow - BMP in AM -Planned surgical repair 11/04 with intraop cultures Thank You, Brooks Gore RPh documented in this encounter Plan of Treatment Not on file documented as of this encounter Visit Diagnoses Not on filedocumented in this encounter
--- OUTSIDE RECORDS SUMMARY | 2025-01-27 13:10 | XMS_ITS | Encounter Summary ---
Author Organization [employer] ([place], [place], [place], [place]) Address [address] [place] [address] Care Team Providers Care Sod Farmer Name Role Phone Unavailable Primary Care Provider Unavailabl e Encounter Details Date Type Department Care Team (Late st Contact Info) Description 12/22/2018 Transcribed Document [facility] Neurology - [address] [facility] [address] [place] [address] Mark Akers MD [address] [place] [address] Social History Tobacco Use Types Packs/Day Years Used Date Smoking Tobacco: Never Assessed Sex and Gender Information Value Date Recorded Sex Assigned at Not on file Legal Sex Male 2:38 PM CDT Gender Identity Not on file Sexual Orientation Not on file documented as of this encounter Miscellaneous Notes * Cerner Conversion Note - Mark Akers MD - 12/22/2018 11:18 AM EDT Patient: SIMBA MAYEN JR Age: 68 years Sex: Male : 1950 Associated Diagnoses: None Author: ILIANA MARQUES APRN Chief Complaint back, RLE pain Review of Systems ROS reviewed as documented in chart no change since last seen by surgeon Health Status Allergies: Allergic Reactions (Selected) No Known Medication Allergies, Allergies (1) Active Reaction No Known Medication Allergies None Documented Current medications: (Selected) Inpatient Medications Ordered Ancef: 2 Gram, 50 mL, 100 mL/Hr, IV Piggyback, PREOP lidocaine 1% preservative-free injectable solution: 0.5 mL, IntraDermal, 1-Time midazolam: 2 mg, IV Push, Q10Min, PRN: Anxiety Documented Medications Documented Imuran: every 8 weeks [...] Daily rasagiline , Oral, Daily , Medications (3) Active Scheduled: (2) ceFAZolin/D5w 2 Gram 50 mL, IV Piggyback, PREOP lidocaine 1% *PF* inj 30 mL 0.5 mL, IntraDermal, 1-Time Continuous: (0) PRN: (1) midazolam 1 mg/1 mL inj 2 mL 2 mg 2 mL, IV Push, Q10Min Problem list: All Problems DJD (degenerative joint disease) of thoracic spine / SNOMED CT 8657503234 / Confirmed Scoliosis / SNOMED CT 078382494 / Confirmed Parkinson disease / SNOMED CT 14702632 / Confirmed History of obstructive sleep apnea / IMO [id number] / Confirmed Arthritis / SNOMED CT 2312160 / Confirmed Colitis / SNOMED CT 1861714773 / Confirmed, Active Problems (6) Arthritis Colitis DJD (degenerative joint disease) of thoracic spine History of obstructive sleep apnea Parkinson disease Scoliosis back pain with RLE radiculopathy Histories Past Medical History: No active or resolved past medical history items have been selected or recorded. Family History: No family history items have been selected or recorded. Procedure history: right inguinal surgery 15 yrs ago. left inguinal hernia 4 yrs ago. bilat catarract surgery 2018. colonoscopy many times. Social History Social & Psychosocial Habits Alcohol 12/16/2018 Alcohol Use History, Social Habits No Alcohol Use in Last Twelve Months No Substance Abuse 12/16/2018 Recreational Drug Use History No Recreational Drug Use Last 12 Months No Tobacco 12/16/2018 Smoking Status Never (less than 100 in l Smokeless Tobacco Status Never . Physical Examination VS/Measurements No qualifying data available General: Alert and oriented, No acute distress. Eye: Pupils are equal, round and reactive to light, Extraocular movements are intact. HENT: Normocephalic, Normal hearing. Neck: Supple, Non-tender. Respiratory: Lungs are clear to auscultation, Respirations are non-labored. Cardiovascular: Normal rate, Regular rhythm, No murmur, No gallop, No edema. Gastrointestinal: Soft, Non-tender. Genitourinary: No costovertebral angle tenderness. Lymphatics: No lymphadenopathy neck, axilla, groin. Musculoskeletal: painful ROM of back, RLE weakness. Integumentary: Warm, Dry, Ector. Neurologic: Alert, Oriented. Psychiatric: Cooperative, Appropriate mood & affect. Review / Management Results review: Labs (Last four charted values) WBC 3.8 (DECEMBER 16) HB 13.6 (DECEMBER 16) HCT 41.0 (DECEMBER 16) Plt 188 (DECEMBER 16) Na 143 (DECEMBER 16) K 3.8 (DECEMBER 16) Cl 110 (DECEMBER 16) CO2 28 (DECEMBER 16) BUN 15 (DECEMBER 16) Cr 1.10 (DECEMBER 16) Glu R 86 (DECEMBER 16) Ca 8.5 (DECEMBER 16) . Impression and Plan Condition: Stable. documented in this encounter Plan of Treatment Not on file documented as of this encounter Visit Diagnoses Not on filedocumented in this encounter
--- OUTSIDE RECORDS SUMMARY | 2025-01-27 13:10 | XMS_ITS | Encounter Summary ---
Author Organization [employer] ([place], [place], [place], [place]) Address [address] [place] [address] Care Team Providers Care Bitumen Plant Operator Name Role Phone Unavailable Primary Care Provider Unavailabl e Encounter Details Date Type Department Care Team (Late st Contact Info) Description 11/05/[address] [facility] [place] Family Medicine [address] [place] [address] ProviderAgnieszka MD [address], [place] [address] Social History Tobacco Use Types Packs/Day Years Used Date Smoking Tobacco: Never Assessed Sex and Gender Information Value Date Recorded Sex Assigned at Not on file Legal Sex Male 2:38 PM CDT Gender Identity Not on file Sexual Orientation Not on file documented as of this encounter Miscellaneous Notes * Cerner Conversion Note - Historical ProviderMD - 11/05/2019 11:14 AM CDT Attempt to Treat, PT Entered On: 11/05/2019 11:15 EDT Performed On: 11/05/2019 11:14 EDT by LILA PIERCE PT Attempt to Treat Unable to Treat Due To : Patient Unavailable Inability to Treat Comment : Out to surgery for laminectomy by report. Nursing notified that PT will need reorder. Notification : MY Zavala MARK, PT - 11/05/2019 11:14 EDT Electronically signed by Gay Centeno Conversion Supervisor [employer] at 11/12/2022 9:52 PM CDT documented in this encounter Plan of Treatment Not on file documented as of this encounter Visit Diagnoses Not on filedocumented in this encounter
--- OUTSIDE RECORDS SUMMARY | 2025-01-27 13:10 | XMS_ITS | Encounter Summary ---
Author Organization [employer] ([place], [place], [place], [place]) Address [address] [place] [address] Care Team Providers Care Machine Dyer Name Role Phone Unavailable Primary Care Provider Unavailabl e Encounter Details Date Type Department Care Team (Late st Contact Info) Description 11/05/2019 Transcribed Document [facility] [place] Family Medicine [address] [place] [address] ProviderAgnieszka MD [address], [place] [address] Social History Tobacco Use Types Packs/Day Years Used Date Smoking Tobacco: Never Assessed Sex and Gender Information Value Date Recorded Sex Assigned at Not on file Legal Sex Male 2:38 PM CDT Gender Identity Not on file Sexual Orientation Not on file documented as of this encounter Miscellaneous Notes * [employer]ner Conversion Note - Historical ProviderMD - 11/05/2019 8:36 AM CDT Attempt to Treat, OT Entered On: 11/05/2019 8:36 EDT Performed On: 11/05/2019 8:36 EDT by JESSICA ROSENBAUM OTR/Lc Attempt to Treat Inability to Treat Comment : Planned surgical intervention today. Please reorder OT following. JESSICA ROSENBAUM OTR/Lc - 11/05/2019 8:36 EDT documented in this encounter Plan of Treatment Not on file documented as of this encounter Visit Diagnoses Not on filedocumented in this encounter
--- OUTSIDE RECORDS SUMMARY | 2025-01-27 13:10 | XMS_ITS | Encounter Summary ---
Author Organization [employer] ([place], [place], [place], [place]) Address [address] [place] [address] Care Team Providers Care Cocoa Mill Operator Name Role Phone Unavailable Primary Care Provider Unavailabl e Encounter Details Date Type Department Care Team (Late st Contact Info) Description 11/05/2019 Transcribed Document [facility] [place] [facility] [place] [address] ProviderAgnieszka MD [address], [place] [id number] Social History Tobacco Use Types Packs/Day Years Used Date Smoking Tobacco: Never Assessed Sex and Gender Information Value Date Recorded Sex Assigned at Not on file Legal Sex Male 2:38 PM CDT Gender Identity Not on file Sexual Orientation Not on file documented as of this encounter Miscellaneous Notes * Cerner Conversion Note - Agnieszka ProviderMD - 11/05/2019 12:46 PM CDT On Going Discharge Planning Entered On: 11/05/2019 12:51 EDT Performed On: 11/05/2019 12:46 EDT by SAL BERRIOS RN-Care Management Care [...] : No SAL BERRIOS RN-Care Management - 11/05/2019 12:46 EDT Narrative Progress Note Narrative Progress Note : Pt off floor since this am for thoracic extension with arrow procedure. CM to cont following, and safe plans of discharge is STR when medically cleared to be released. [facility] following Historical Progress Note : Elvia stated that [facility] is following for patient placement. Patient is scheduled for surgery Friday11/05/19. Cm will continue to follow. ELKE VELÁZQUEZ, Hris Analyst-Eyelet Machine Operator - 11/04/19 13:06:08 Patient is scheduled for an MRI on and surgery on Friday. He reported wanting to go to [facility]. Cm sent referral packet to [facility]. ELKE VELÁZQUEZ Hris Analyst-Eyelet Machine Operator - 11/03/19 14:33:22 SAL BERRIOS RN-Care Management - 11/05/2019 12:46 EDT documented in this encounter Plan of Treatment Not on file documented as of this encounter Visit Diagnoses Not on filedocumented in this encounter
--- OUTSIDE RECORDS SUMMARY | 2025-01-27 13:10 | XMS_ITS | Encounter Summary ---
Author Organization [employer] ([place], [place], [place], [place]) Address [address] [place] [address] Care Team Providers Care Lining Stitcher Name Role Phone Unavailable Primary Care Provider Unavailabl e Encounter Details Date Type Department Care Team (Late st Contact Info) Description 11/06/2019 Transcribed Document [facility] [place] [address] [place] [address] ProviderAgnieszka MD [address] [place] [address] Social History Tobacco Use Types Packs/Day Years Used Date Smoking Tobacco: Never Assessed Sex and Gender Information Value Date Recorded Sex Assigned at Not on file Legal Sex Male 2:38 PM CDT Gender Identity Not on file Sexual Orientation Not on file documented as of this encounter Miscellaneous Notes * Cerner Conversion Note - Historical ProviderMD - 11/06/2019 4:[address] PT Charges Entered On: 11/06/2019 16:20 EDT Performed On: 11/06/2019 16:19 EDT by STORMY POPE, PT [facility] PT Charges Physical Therapy Screen : 1 STORMY POPE PT - 11/06/2019 16:19 EDT Electronically signed by Taryn [facility] Conversion Distribution Estimator Cerner at 11/12/2022 9:37 PM CDT documented in this encounter Plan of Treatment Not on file documented as of this encounter Visit Diagnoses Not on filedocumented in this encounter
--- OUTSIDE RECORDS SUMMARY | 2025-01-27 13:10 | XMS_ITS | Encounter Summary ---
Author Organization [employer] ([place], [place], [place], [place]) Address [address] [place] [address] Care Team Providers Care Loading Unit Operator Crimping Name Role Phone Unavailable Primary Care Provider Unavailabl e Encounter Details Date Type Department Care Team (Late st Contact Info) Description 11/06/2019 Transcribed Document [facility] [place] [facility] [place] [address] ProviderAgnieszka MD [address] [place], [place] [id number] Social History Tobacco Use Types Packs/Day Years Used Date Smoking Tobacco: Never Assessed Sex and Gender Information Value Date Recorded Sex Assigned at Not on file Legal Sex Male 2:38 PM CDT Gender Identity Not on file Sexual Orientation Not on file documented as of this encounter Miscellaneous Notes * Cerner Conversion Note - Historical ProviderMD - 11/06/2019 9:17 AM CDT Event Note Entered On: 11/06/2019 9:22 EDT Performed On: 11/06/2019 9:17 EDT by Zee Taylor RN Event Note Event Date/Time : 11/06/2019 9:15 EDT Event Location : Assigned room Description of Event : Physicial therapy alerted RN that patient was complaing on no sensation in the lower extremities. Patient was assesssed by nurse and had active pulses in the lower extermities, skin was warm and dry. patient had lumbar fusion on 11/05/[address] Akers, nurse paged performing physician. continuing to monitor patient Zee Taylor RN - 11/06/2019 9:17 EDT documented in this encounter Plan of Treatment Not on file documented as of this encounter Visit Diagnoses Not on filedocumented in this encounter
--- OUTSIDE RECORDS SUMMARY | 2025-01-27 13:10 | XMS_ITS | Encounter Summary ---
Author Organization [employer] ([place], [place], [place], [place]) Address [address] [place] [address] Care Team Providers Care Mems Process Engineer Name Role Phone Unavailable Primary Care Provider Unavailabl e Encounter Details Date Type Department Care Team (Late st Contact Info) Description 11/06/[address] [facility] [place] [address] [place] [address] ProviderAgnieszka MD [address], [place] [phone] Social History Tobacco Use Types Packs/Day Years Used Date Smoking Tobacco: Never Assessed Sex and Gender Information Value Date Recorded Sex Assigned at Not on file Legal Sex Male 2:38 PM CDT Gender Identity Not on file Sexual Orientation Not on file documented as of this encounter Miscellaneous Notes * Cerner Conversion Note - Historical ProviderMD - 11/06/2019 2:00 AM CDT Melter Clerk Details Entered On: 11/06/2019 1:59 EDT Performed On: 11/06/2019 2:00 EDT by Faye Parekh RN Order Details Transport Mode Order Detail : Stretcher/Gurney Isolation Precautions Order Detail : Standard Precautions Order Detail : N/A IV Order Detail : 1 Oxygen Order Detail : 0 Nurse Collect Order Detail : 0 Lift/Transfer : Independent Central Line Order Detail : No Room Service : Not Appropriate Arterial Line : No Faye Parekh RN - 11/06/2019 1:59 EDT documented in this encounter Plan of Treatment Not on file documented as of this encounter Visit Diagnoses Not on filedocumented in this encounter
--- OUTSIDE RECORDS SUMMARY | 2025-01-27 13:10 | XMS_ITS | Encounter Summary ---
Author Organization [employer] ([place], [place], [place], [place]) Address [address] [place] [address] Care Team Providers Care Driller Brake Lining Name Role Phone Unavailable Primary Care Provider Unavailabl e Encounter Details Date Type Department Care Team (Late st Contact Info) Description 11/06/2019 Transcribed Document [facility] [place] [facility] [place] [address] ProviderAgnieszka MD [address], [place] [id number] Social History Tobacco Use Types Packs/Day Years Used Date Smoking Tobacco: Never Assessed Sex and Gender Information Value Date Recorded Sex Assigned at Not on file Legal Sex Male 2:38 PM CDT Gender Identity Not on file Sexual Orientation Not on file documented as of this encounter Miscellaneous Notes * Cerner Conversion Note - Agnieszka ProviderMD - 11/06/2019 11:53 AM CDT Patient: SIMBA MAYEN JR Age: 69 years Sex: Male : 1950 Associated Diagnoses: None Author: Nate Calles, 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 69yoM with Low Back Pain - R/O Osteo PMH: 12/13 PLIF T10-S1, Parkinson's, 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 11/04 planned revision of T9-T10 Rx Consult: Vancomycin MD: David Hernández Dx: Thoracic Osteo goal trough = 15-20 ID: [place] wt = 81kg I/O = 858 / 515 NKDA Atb: Vanco / Cefepime (Start 11/01) Labs (Last four charted values) WBC 7.2 (NOV 05) 7.5 (NOV 04) 6.5 (NOV 02) 8.7 (NOV 01) HB L 11.7 (APR 11) 14.7 (OCT 10) L 12.2 (OCT 08) 13.5 (NOV 01) HCT L 36.4 (OCT 11) 49.8 (OCT 10) L 37.6 (NOV 02) 43.0 (NOV 01) Plt 230 (OCT 11) 240 (OCT 10) 280 (OCT 09) 291 (OCT 08) Na L 133 (OCT 11) 136 (OCT 10) 139 (NOV 02) 137 (NOV 01) K 4.2 (OCT 11) 4.0 (NOV 04) 3.6 (NOV 02) 4.5 (NOV 01) Cl 103 (OCT 11) 104 (NOV 04) 109 (NOV 02) 106 (NOV 01) CO2 27 (NOV 05) 26 (NOV 04) 25 (NOV 02) 23 (NOV 01) BUN 9 (NOV 05) 12 (NOV 04) 15 (NOV 02) 19 (NOV 01) Cr 0.70 (NOV 05) 0.80 (NOV 04) [...] 2.0 (NOV 05) L 2.5 (NOV 01) Calc CrCl = 66ml/min Vitals [...] (NOV 04 12:25) MAP 101 (NOV 05 06:00) 88 (NOV 04 18:25) 127 (NOV 04 12:40) SpO2 99 (NOV 05 06:00) 94 (NOV 04 12:15) 100 (NOV 04 12:10) Cultures: 11/01 blood - NGTD 11/01 urine - NGTD 11/04 Wound/fungus/AFB/anaerobic - [...] Plan: 1) Continue Vancomycin 1250mg (~15mg/kg) IV q12h. No changes to renal function or dose at this time. All Cx negative. -repeat trough in 1-2 days 2) Monitor for changes in renal function and culture results. 3) Rx to follow - BMP in AM -Planned surgical repair 11/04 with intraop cultures Thank You, Nate Calles, PharmD PGY1 Record Tabulating Clerk Pager: [phone], Ext. [phone] documented in this encounter Plan of Treatment Not on file documented as of this encounter Visit Diagnoses Not on filedocumented in this encounter
--- OUTSIDE RECORDS SUMMARY | 2025-01-27 13:10 | XMS_ITS | Encounter Summary ---
Author Organization [employer] ([place], [place], [place], [place]) Address [address] [place] [address] Care Team Providers Care Track Production Engineer Name Role Phone Unavailable Primary Care Provider Unavailabl e Encounter Details Date Type Department Care Team (Late st Contact Info) Description 11/06/2019 Transcribed Document [facility] Neurology - [address] [facility] [address] [place] [id number] Mark Akers MD [address] [place] [address] Social History Tobacco Use Types Packs/Day Years Used Date Smoking Tobacco: Never Assessed Sex and Gender Information Value Date Recorded Sex Assigned at Not on file Legal Sex Male 2:38 PM CDT Gender Identity Not on file Sexual Orientation Not on file documented as of this encounter Miscellaneous Notes * Cerner Conversion Note - Mark Akers MD - 11/06/2019 3:29 PM EDT DATE OF PROCEDURE: 11/06/2019 SURGEON: Mark Akers MD PREOPERATIVE DIAGNOSIS: T9-10 spinal cord compression due to epidural abscess. POSTOPERATIVE DIAGNOSIS: T9-10 spinal cord compression due to epidural abscess. INDICATION FOR PROCEDURE: T9-10 spinal cord compression due to epidural abscess. PROCEDURE: T8 through T11 laminectomy for decompression of epidural abscess. TYPE OF ANESTHESIA: GEA. DESCRIPTION OF PROCEDURE IN DETAIL: Once consent was noted to be on chart, Mr. Cuevas was taken urgently to the operating room. He was anesthetized and placed into the prone position on a Sam spine frame. All pressure points were carefully checked and padded. Preoperative antibiotics were given. A time-out was called. The gilson were removed. Sutures were removed down from the subcuticular layer, deep layer and fascia. Retractors were placed. The laminectomy was then performed at T8, T9, T10, and T11, fully decompressing the cord posteriorly. We reach around the cord bilaterally removing some fluid that did not seem to be obviously purulent, but did seem to be serous and blood tinged. Full decompression of the cord was achieved. The wound was copiously irrigated. Vancomycin powder was left into the wound and the epidural drain was left in place. 1 Vicryl reapproximated the paraspinous muscles and fascia, 2-0 Vicryl closed the space and closed the skin subcuticularly. The skin was stapled. Bacitracin and Covaderm were applied. SPECIMEN SENT: Cultures. ESTIMATED BLOOD LOSS: 150 mL. DRAINS: Sam-Burger. COMPLICATIONS: None. /[id number] Mark Akers MD MPT/AQ / MPT / MODL /[id number] documented in this encounter Plan of Treatment Not on file documented as of this encounter Visit Diagnoses Not on filedocumented in this encounter
--- OUTSIDE RECORDS SUMMARY | 2025-01-27 13:10 | XMS_ITS | Encounter Summary ---
Author Organization [employer] ([place], [place], [place], [place]) Address [address] [place] [address] Care Team Providers Care District Or District Office Director Name Role Phone Unavailable Primary Care Provider Unavailabl e Encounter Details Date Type Department Care Team (Late st Contact Info) Description 11/06/2019 Transcribed Document [facility] [place] [address] [place] [address] ProviderAgnieszka MD [address], [place] [id number] Social History Tobacco Use Types Packs/Day Years Used Date Smoking Tobacco: Never Assessed Sex and Gender Information Value Date Recorded Sex Assigned at Not on file Legal Sex Male 2:38 PM CDT Gender Identity Not on file Sexual Orientation Not on file documented as of this encounter Miscellaneous Notes * Cerner Conversion Note - Historical ProviderMD - 11/06/2019 10:00 AM CDT Pain Assessment Entered On: 11/06/2019 16:23 EDT Performed On: 11/06/2019 10:58 EDT by Zee Taylor RN Intervention Information: acetaminophen Performed by Zee Taylor RN on 11/06/2019 09:58:00 EDT acetaminophen,650mg Oral Pain Assessment Pain Assessment : Follow-up assessment Pain Scale Goal : 4 Pain Improved by Intervention : Yes Zee Taylor RN - 11/06/2019 16:23 EDT documented in this encounter Plan of Treatment Not on file documented as of this encounter Visit Diagnoses Not on filedocumented in this encounter
--- OUTSIDE RECORDS SUMMARY | 2025-01-27 13:10 | XMS_ITS | Encounter Summary ---
Author Organization [employer] ([place], [place], [place], [place]) Address [address] [place] [address] Care Team Providers Care Stake Driver Name Role Phone Unavailable Primary Care Provider Unavailabl e Encounter Details Date Type Department Care Team (Late st Contact Info) Description 11/06/2019 Transcribed Document [facility] On [facility] of [facility] [place] [address] ProviderAgnieszka MD [address] [phone] Social History Tobacco Use Types Packs/Day Years Used Date Smoking Tobacco: Never Assessed Sex and Gender Information Value Date Recorded Sex Assigned at Not on file Legal Sex Male 2:38 PM CDT Gender Identity Not on file Sexual Orientation Not on file documented as of this encounter Miscellaneous Notes * Cerner Conversion Note - Historical ProviderMD - 11/06/2019 9:22 AM CDT Attempt to Treat, PT Entered On: 11/06/2019 9:25 EDT Performed On: 11/06/2019 9:22 EDT by LILA PIERCE PT Attempt to Treat Unable to Treat Due To : Other: post op lack of sensation and motor function in LE Inability to Treat Comment : The patient reported spontaneously that he could not feel his feet. He continue to state the same with donning of socks. He could not detect light touch or modreate presssure at the level of the lateral knee. He was unable to display any motor fuction (Comment: without or with assistance. MY Koch was notified of the finding and asked to contact neurosurgy. Re-evaluation is deferred pending re-examination by neurosurgery. [LILA PIERCE, PT - 11/06/2019 9:22 EDT] ) Notification : MY Haas MARK, PT - 11/06/2019 9:22 EDT documented in this encounter Plan of Treatment Not on file documented as of this encounter Visit Diagnoses Not on filedocumented in this encounter
--- OUTSIDE RECORDS SUMMARY | 2025-01-27 13:10 | XMS_ITS | Encounter Summary ---
Author Organization [employer] ([place], [place], [place], [place]) Address [address] [place] [address] Care Team Providers Care Glass Etcher Helper Name Role Phone Unavailable Primary Care Provider Unavailabl e Encounter Details Date Type Department Care Team (Late st Contact Info) Description 11/05/2019 Transcribed Document [facility] [place] [address] [place] [address] ProviderAgnieszka MD [address], [place] [id number] Social History Tobacco Use Types Packs/Day Years Used Date Smoking Tobacco: Never Assessed Sex and Gender Information Value Date Recorded Sex Assigned at Not on file Legal Sex Male 2:38 PM CDT Gender Identity Not on file Sexual Orientation Not on file documented as of this encounter Miscellaneous Notes * Cerner Conversion Note - Agnieszka ProviderMD - 11/05/2019 9:27 AM CDT [facility] Main OR IntraOp Summary Primary Physician: HEIDE KAT MD-SNU Finalized Date/Time: 11/06/19 17:47:55 Pt. Name: EILEEN MAYEN JR, D.O.B./Sex: 1950 Male Med Rec #: [id number] Physician: LORENA SAGASTUME MD-INT Financial #: [id number] Pt. Type: I Room/Bed: [facility]/ Admit/Disch: 11/02/19 02:59:00 - Institution: [facility] IntraOp Case Attendance Entry 1 Entry 2 Entry 3 Case Attendee HEIDE KAT WASSON, SANDRA D, RN COMPTON, TRACY, RN MD-DIVYA Role Performed Surgeon/Proceduralist, Ux Researcher, First Ux Researcher, First First Time In 11/05/19 08:26:00 11/05/19 08:26:00 11/05/19 08:26:00 Time Out 11/05/19 12:09:00 11/05/19 12:09:00 11/05/19 12:09:00 Procedure Lumbar Fusion Posterior Lumbar Fusion Posterior Lumbar Fusion Posterior 3 Level 3 Level 3 Level Other Attendee ORIENTEE Superficial Wound Closed By: Last Modified By: ARCHIE BENITEZ, ARCHIE BROWN, ARCHIE BROWN, RN 11/05/19 12:08:12 11/05/19 12:08:12 11/05/19 09:11:53 Entry 4 Entry 5 Entry 6 Case Attendee KENNY IGNACIO, MARIN NASCIMENTO CASSIE, APRN COURTNEY, PA-INT Role Performed Scrub, First Physician phys assistant ROAD ENGINEER/Nurse Pinion Staker Time In 11/05/19 08:26:00 11/05/19 08:26:00 11/05/19 08:26:00 Time Out 11/05/19 12:09:00 11/05/19 12:09:00 11/05/19 12:09:00 Procedure Lumbar Fusion Posterior Lumbar Fusion Posterior Lumbar Fusion Posterior 3 Level 3 Level 3 Level Other Attendee Superficial Wound Closed By: Last Modified By: ARCHIE BENITEZ RN WASSON, SANDRA D, ARCHIE BROWN, MY 11/05/19 12:08:12 11/05/19 12:08:12 11/05/19 12:08:12 Entry 7 Entry 8 Entry 9 Case Attendee XOCHITL ALCAZAR, OTHER, ATTENDEE #1 Claribel Monteiro MD-ANS Wrapper Sheeter Role Performed Anesthesiologist of Vendor Armature Repairer Record Time In 11/05/19 08:26:00 11/05/19 08:26:00 11/05/19 08:26:00 Time Out 11/05/19 12:09:00 11/05/19 12:09:00 11/05/19 10:45:00 Procedure Lumbar Fusion Posterior Lumbar Fusion Posterior Lumbar Fusion Posterior 3 Level 3 Level 3 Level Other Attendee ALCIDES DYSON Superficial Wound Closed By: Last Modified By: ARCHIE BENITEZ, ARCHIE BROWN, ARCHIE BROWN, RN 11/05/19 12:08:12 11/05/19 09:11:53 11/05/19 11:54:30 Entry 10 Entry 11 Entry 12 Case Attendee ANTON MORA, RN ANTON MORA, RN MARLEN SHETH MD-ERYN Role Performed Ux Researcher, Second Ux Researcher, First Anesthesiologist Time In 11/05/19 09:25:00 11/05/19 11:00:00 11/05/19 11:16:00 Time Out 11/05/19 09:35:00 11/05/19 11:40:00 11/05/19 12:04:00 Procedure Lumbar Fusion Posterior Lumbar Fusion Posterior Lumbar Fusion Posterior 3 Level 3 Level 3 Level Other Attendee [facility] [address] [facility] ENGINEER LUNCH RELIEF Superficial Wound Closed By: Last Modified By: ARCHIE BENITEZ, RN ARCHIE BENITEZ, RN ARCHIE BENITEZ, RN 11/05/19 09:38:14 11/05/19 11:54:30 11/05/19 11:54:30 [facility] IntraOp Case Attendance Audit 11/05/19 12:08:12 Vp Product Marketing: WASSONSY Modifier: WASSONSY 1 <+> Time Out 1 <*> Procedure Lumbar Fusion Posterior 3 Level 2 <+> Time Out 2 <*> Procedure Lumbar Fusion Posterior 3 Level 3 <+> Time Out 3 <*> Procedure [...] <*> Procedure Lumbar Fusion Posterior 3 Level 11/05/19 12:07:32 Vp Product Marketing: WASSONSY Modifier: WASSONSY 12 <+> Time Out 12 <*> Procedure Lumbar Fusion Posterior 3 Level 11/05/19 11:54:30 Vp Product Marketing: WASSONSY Modifier: WASSONSY 9 <+> Time Out 9 <*> Procedure Lumbar Fusion Posterior 3 Level <+> 11 Case Attendee <+> 11 Role Performed <+> 11 Time In <+> 11 Time Out <+> 11 Procedure <+> 11 Other Attendee <+> 12 Case Attendee <+> 12 Role Performed <+> 12 Time In <+> 12 Procedure <+> 12 Other Attendee 11/05/19 09:38:14 Vp Product Marketing: WASSONSY Modifier: WASSONSY <+> 10 Case Attendee <+> 10 Role Performed <+> 10 Time In <+> 10 Time Out <+> 10 Procedure 11/05/19 09:35:41 Vp Product Marketing: WASSONSY Modifier: WASSONSY 1 <*> Procedure Lumbar Fusion Posterior 3 Level 2 <+> Time In 2 <*> Procedure [...] <*> Procedure Lumbar Fusion Posterior 3 Level [facility] IntraOp Case Times Entry 1 Patient In Room Time 11/05/19 08:26:00 Out Room Time 11/05/19 12:09:00 Anesthesia Start Time 11/05/19 08:26:00 Stop Time 11/05/19 12:09:00 Surgery / Procedure Times Start Time 11/05/19 09:27:00 Stop Time 11/05/19 11:37:00 Last Modified By: ANTON MORA RN 11/05/19 11:39:51 [facility] IntraOp Case Times Audit 11/05/19 12:07:57 Vp Product Marketing: BRADYCM Modifier: WASSONSY <+> 1 Out Room Time <+> 1 Stop Time 11/05/19 11:39:51 Vp Product Marketing: WASSONSY Modifier: BRADYCM <+> 1 Stop Time 11/05/19 09:36:28 Vp Product Marketing: WASSONSY Modifier: WASSONSY <+> 1 Start Time [facility] IntraOp Cautery Entry 1 Entry 2 ESU Identification Cautery Type Monopolar ESU BiPolar ESU Cautery Type Comments ID Number [id number] ID Type Hospital Number Hospital Number Cautery Settings Cut Setting 50 8 Coag Setting 50 50 Blend Setting Bipolar Setting Argon Setting Argon Rowley ESU Grounding Pad Ground Pad Type Adult Grounding Pad Type Comment Grounding Pad Site Right thigh Grounding Pad Site Comment Grounding Pad ARCHIE BENITEZ RN Applied By Grounding Pad Site Warm, dry and intact Skin Condition Before Cautery Site Skin Condition Before Comment Grounding Pad Site Unchanged Skin Condition After Cautery Site Skin Condition After Comment Last Modified By: ARCHIE BENITEZ, ARCHIE BROWN RN 11/05/19 09:40:16 11/05/19 09:40:16 [facility] IntraOp Communication Entry 1 Communication To Family/Significant other Comment START Communication By ANTON MORA RN Date and Time 11/05/19 09:30:00 Last Modified By: ARCHIE BENITEZ RN 11/05/19 09:37:44 [facility] IntraOp Communication Audit 11/05/19 09:38:20 Vp Product Marketing: NIKI Modifier: EMMANUELSY 1 <*> Communication By ARCHIE BENITEZ, RN [facility] IntraOp Counts Verification Entry 1 Procedure Lumbar Fusion Posterior 3 Level Count Info Count Type Sponge, Sharps, Miscellaneous Counts Verification Baseline/pre-procedure Sequence Count Results Not Applicable Counts Performed By Count Performed By KENNY IGNACIO ST (Scrub) Count Performed By ARCHIE BENITEZ RN (RN) Last Modified By: ARCHIE BENITEZ RN 11/05/19 09:36:13 [facility] IntraOp Counts Final Entry 1 Procedure Lumbar Fusion Posterior 3 Level Final Count Info Count Type Sponge, Sharps Counts Verification Skin Closure/end of Sequence procedure Count Results Correct, surgeon notified Counts Performed By Count Performed By KENNY IGNACIO ST (Scrub) Count Performed By ANTON MORA RN (RN) Last Modified By: ANTON MORA RN 11/05/19 11:40:06 [facility] IntraOp Cultures and Spec Summary Entry 1 Cultrures and Specimens Specimen Ordered: Yes Test(s) Routine/Path-Lab, Requested/Final Culture(s)/Microbiology Disposition Last Modified By: ARCHIE BENITEZ RN 11/05/19 09:41:15 General Comments: A. EXPLANTED HARDWARE [facility] IntraOp Departure from OR Entry 1 Integumentary Assessment Integumentary WDL Assessment WDL Transfer/Handoff Transfer to PACU Phase I Handoff Method Phone call Handoff Reported to Simon Huang RN Post-op Transport Stretcher/Gurney Via Patient Transport HARITHA FUNES APRN, Accompanied by ARCHIE BENITEZ RN Last Modified By: ARCHIE BENITEZ RN 11/05/19 12:07:42 [facility] IntraOp Departure from OR Audit 11/05/19 12:07:42 Vp Product Marketing: WASSONSY Modifier: WASSONSY <+> 1 Handoff Reported to 11/05/19 12:02:19 Vp Product Marketing: WASSONSY Modifier: WASSONSY 1 <*> Patient Transport Accompanied by HARITHA FUNES APRN [facility] IntraOp Drains and Tubes Entry 1 Device Type Zia Drain Size 15fr Drain/Tube Activity Inserted Drain/Tube Suction Bulb Drain/Tube Drainage Serosanguineous Device Location OP SITE Method of Drainage Compression Last Modified By: ANTON MORA RN 11/05/19 11:51:07 [facility] IntraOp Dressing and Packing Entry 1 Type Dressing Location OP SITE Wound Dressing Item Steristrip, Other Applied By RUDOLPH NASCIMENTO PA-INT Other Comments NEOSPORIN OINTMENT, STERISTRIPS, COVADERM Last Modified By: ARCHIE BENITEZ RN 11/05/19 10:43:35 [facility] IntraOp Fire Risk Assessment Entry 1 Fire Info Surgical Site or 1- Yes Incision Above the Xyphoid Open O2 Source 0- No (Mask or Cannula) Available Ignition 1- Yes (ESU, Laser, Light Source) Fire Risk 2 Assessment Score Fire Score Fire Risk Yes Assessment Complete Fire Risk 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 Verified By Fire Risk 11/05/19 08:25:00 Assessment Verified Date/Time Fire Risk Standard Fire Yes Safety Precautions Followed Last Modified By: ARCHIE BENITEZ RN 11/05/19 09:40:43 [facility] IntraOp General Case Sandfill Operator Surface 1 Case Information OR OR 10 [facility] Case Level 1 Room Verified Yes Wound Class I - Clean Specialty SN Neurosurgery Anesthesia Type General ASA Class 3 Diagnosis Preop Diagnosis SPINAL INSTABILITY, FRACTURE Postop Same As Preop No Postop Diagnosis SEE MD POST OP NOTE Last Modified By: ARCHIE BENITEZ RN 11/05/19 09:40:59 [facility] IntraOp General Case Data Audit 11/05/19 10:24:22 Vp Product Marketing: NIKI Modifier: NIKI <+> 1 Preop Diagnosis [facility] IntraOp Implant Log Entry 1 Entry 2 Entry 3 Type Implant (Synthetic) Implant (Synthetic) Implant (Synthetic) Implant Log Implant Type Bone Cement Hardware Hardware Tissue Implant Type Implant CEMENT SPINAL SCR SPNE ALIN FIX FEN SCR SPNE ALIN FIX FEN Identification [id number] Description Implant Quantity 2 4 4 Implant Site OP SITE OPSITE OPSITE Implant Identification Model Number Implant Identification Serial Number Implant [id number] Identification Lot Number Implant J&J:Depuy:Depuy Spine J&J:Depuy:Depuy Spine J&J:Depuy:Depuy Spine Identification Industrial Production Manager Name: Implant [id number] Identification Catalog Number Implant Size Implant Has an Yes Expiration Date Implant Expiration 10/25/21 Date Wasted Radioactive Material Time Implanted Tissue Implant Continue for Tissue Implant Documentation Tissue Identification Number Graft Prep Per Industrial Production Manager Instructions: Tissue Preparation Method: Reconstitution Solution: Reconstitution Solution Lot Number Reconstitution Solution Expiration Date: Thawing Solution Thawing Solution Lot Number Thawing Solution Expiration Date Preparation Materials, Other Preparation Materials, Other Lot Number Preparation Materials, Other Expiration Date Tissue Prepared/Processed By Industrial Production Manager Paperwork Completed Implant Type Comment Last Modified By: ANTON MORA RN BRADY, CHRISTINA M, RN WASSON, SANDRA D, RN 11/05/19 11:44:19 11/05/19 11:44:19 11/05/19 11:13:15 Entry 4 Entry 5 Entry 6 Type Implant (Synthetic) Implant (Synthetic) Implant (Synthetic) Implant Log Implant Type Hardware Hardware Hardware Tissue Implant Type Implant MIS SUNNI PLY SCRW SET RAE CONN EXPEDIUM 200MM RAE SPINE EXPEDIUM Identification [id number] Description Implant Quantity 14 2 1 Implant Site OPSITE OPSIE OPSTE Implant Identification Model Number Implant Identification Serial Number Implant Identification Lot Number Implant J&J:Depuy:Depuy Spine J&J:Depuy:Depuy Spine J&J:Depuy:Depuy Spine Identification Industrial Production Manager Name: Implant [id number] Identification Catalog Number Implant Size Implant Has an Expiration Date Implant Expiration Date Wasted Radioactive Material Time Implanted Tissue Implant Continue for Tissue Implant Documentation Tissue Identification Number Graft Prep Per Industrial Production Manager Instructions: Tissue Preparation Method: Reconstitution Solution: Reconstitution Solution Lot Number Reconstitution Solution Expiration Date: Thawing Solution Thawing Solution Lot Number Thawing Solution Expiration Date Preparation Materials, Other Preparation Materials, Other Lot Number Preparation Materials, Other Expiration Date Tissue Prepared/Processed By Industrial Production Manager Paperwork Completed Implant Type Comment Last Modified By: ARCHIE BENITEZ, ARCHIE BROWN RN WASSON, SANDRA D, RN 11/05/19 11:13:15 11/05/19 11:13:15 11/05/19 11:13:15 Entry 7 Entry 8 Type Implant (Synthetic) Implant (Synthetic) Implant Log Implant Type Hardware Hardware Tissue Implant Type Implant CONN VARIABLE CONN [place] BAND Identification OFFSET-[id number] OPEN/CLOSE-[id number] Description Implant Quantity 2 2 Implant Site OPSITE OPSITE Implant Identification Model Number Implant Identification Serial Number Implant Identification Lot Number Implant J&J:Depuy:Depuy Spine J&J:Depuy:Depuy Spine Identification Industrial Production Manager Name: Implant [id number] Identification Catalog Number Implant Size Implant Has an Expiration Date Implant Expiration Date Wasted Radioactive Material Time Implanted Tissue Implant Continue for Tissue Implant Documentation Tissue Identification Number Graft Prep Per Industrial Production Manager Instructions: Tissue Preparation Method: Reconstitution Solution: Reconstitution Solution Lot Number Reconstitution Solution Expiration Date: Thawing Solution Thawing Solution Lot Number Thawing Solution Expiration Date Preparation Materials, Other Preparation Materials, Other Lot Number Preparation Materials, Other Expiration Date Tissue Prepared/Processed By Industrial Production Manager Paperwork Completed Implant Type Comment Last Modified By: ARCHIE BENITEZ, ARCHIE BROWN RN 11/05/19 11:13:15 11/05/19 11:13:15 [facility] IntraOp Implant Log Audit 11/05/19 11:44:19 Vp Product Marketing: NIKI Modifier: BRADYCM 1 <*> Implant Identification Description CEMENT SPINAL CONFIDENCE-[id number] 1 <*> Implant Identification Lot Number [id number] 1 <*> Implant Identification Industrial Production Manager J&J:Depuy:Depuy Spine Name: 1 <*> Implant Expiration Date 10/25/21 1 <*> Implant Site OP SITE 1 <*> Implant Quantity 2 1 <*> Implant Identification Catalog [id number] Number 1 <*> Implant Type Bone Cement 1 <*> Implant Has an Expiration Date Yes 1 <*> Type Implant (Synthetic) 2 <*> Implant Identification Description SCR SPNE ALIN FIX FEN [id number] 2 <*> Implant Identification Industrial Production Manager J&J:Depuy:Depuy Spine Name: 2 <*> Implant Site OPSITE 2 <*> Implant Quantity 4 2 <*> Implant Identification Catalog [id number] Number 2 <*> Implant Type Hardware 2 <*> Type Implant (Synthetic) 3 <*> Implant Identification Description SCR SPNE ALIN FIX FEN [id number] 3 <*> Implant Identification Industrial Production Manager J&J:Depuy:Depuy Spine Name: 3 <*> Implant Site OPSITE 3 <*> Implant Quantity 4 3 <*> Implant Identification Catalog [id number] Number 3 <*> Implant Type Hardware 3 <*> Type Implant (Synthetic) 4 <*> Implant Identification Description MIS SUNNI PLY SCRW SET -[id number] 4 <*> Implant Identification Industrial Production Manager J&J:Rockerbox:Rockerbox Spine Name: 4 <*> Implant Site OPSITE 4 <*> Implant Quantity 14 4 <*> Implant Identification Catalog [id number] Number 4 <*> Implant Type Hardware 4 <*> Type Implant (Synthetic) 5 <*> Implant Identification Description [id number] 5 <+> Implant Identification Industrial Production Manager Name: 5 <+> Implant Site 5 <+> Implant Quantity 5 <+> Implant Identification Catalog Number 5 <*> Implant Type Hardware 5 <*> Type Implant (Synthetic) 6 <*> Implant Identification Description RAE CONN EXPEDIUM 200MM -[id number] 6 <*> Implant Identification Industrial Production Manager J&J:Depuy:Depuy Spine Name: 6 <*> Implant Site OPSIE 6 <*> Implant Quantity 2 6 <*> Implant Identification Catalog [id number] Number 6 <*> Implant Type Hardware 6 <*> Type Implant (Synthetic) 7 <*> Implant Identification Description RAE SPINE EXPEDIUM [id number] 7 <*> Implant Identification Industrial Production Manager J&J:Depuy:Depuy Spine Name: 7 <*> Implant Site OPSTE 7 <*> Implant Quantity 1 7 <*> Implant Identification Catalog [id number] Number 7 <*> Implant Type Hardware 7 <*> Type Implant (Synthetic) 8 <*> Implant Identification Description CONN VARIABLE OFFSET-306210 8 <*> Implant Identification Industrial Production Manager J&J:Elmeruy:Elmeruy Spine Name: 8 <*> Implant Site OPSITE 8 <*> Implant Quantity 2 8 <*> Implant Identification Catalog [id number] Number 8 <*> Implant Type Hardware 8 <*> Type Implant (Synthetic) 9 <-> Implant Identification Description CONN WEDDING BAND OPEN/CLOSE-273316 9 <-> Implant Identification Industrial Production Manager J&J:Depuy:Elmeruy Spine Name: 9 <-> Implant Site OPSITE 9 <-> Implant Quantity 2 9 <-> Implant Identification Catalog [id number] Number 9 <-> Implant Type Hardware 9 <-> Type Implant (Synthetic) 11/05/19 11:13:15 Vp Product Marketing: WASSONSY Modifier: WASSONSY <+> 2 Implant Identification Description <+> 2 Implant Identification Industrial Production Manager Name: <+> 2 Implant Site <+> 2 Implant Quantity <+> 2 Implant Identification Catalog Number <+> 2 Implant Type <+> 2 Type <+> 3 Implant Identification Description <+> 3 Implant Identification Industrial Production Manager Name: <+> 3 Implant Site <+> 3 Implant Quantity <+> 3 Implant Identification Catalog Number <+> 3 Implant Type <+> 3 Type <+> 4 Implant Identification Description <+> 4 Implant Identification Industrial Production Manager Name: <+> 4 Implant Site <+> 4 Implant Quantity <+> 4 Implant Identification Catalog Number <+> 4 Implant Type <+> 4 Type <+> 5 Implant Identification Description <+> 5 Implant Type <+> 5 Type <+> 6 Implant Identification Description <+> 6 Implant Identification Industrial Production Manager Name: <+> 6 Implant Site <+> 6 Implant Quantity <+> 6 Implant Identification Catalog Number <+> 6 Implant Type <+> 6 Type <+> 7 Implant Identification Description <+> 7 Implant Identification Industrial Production Manager Name: <+> 7 Implant Site <+> 7 Implant Quantity <+> 7 Implant Identification Catalog Number <+> 7 Implant Type <+> 7 Type <+> 8 Implant Identification Description <+> 8 Implant Identification Industrial Production Manager Name: <+> 8 Implant Site <+> 8 Implant Quantity <+> 8 Implant Identification Catalog Number <+> 8 Implant Type <+> 8 Type <+> 9 Implant Identification Description <+> 9 Implant Identification Industrial Production Manager Name: <+> 9 Implant Site <+> 9 Implant Quantity <+> 9 Implant Identification Catalog Number <+> 9 Implant Type <+> 9 Type [facility] IntraOp Intraoperative Assessment Entry 1 Handoff Method Online nursing summary Valid History / Yes Physical in Chart Preoperative Yes Checklist Reviewed/Evaluated Allergies Reviewed Yes Patient is Latex No Sensitive Isolation Not applicable Precautions Noted Level of WDL Consciousness (WDL = Alert, Oriented to Person, Place, and Time) Skin Assessment No Verified Present Upon IVs Arrival to OR Intraoperative DRESSING TO COCCYX AREA Assessment Comment 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 Last Modified By: ARCHIE BENITEZ RN 11/05/19 09:41:35 [facility] IntraOp Intraoperative Assessment Audit 11/05/19 10:40:46 Vp Product Marketing: NIKI Modifier: NIKI <+> 1 Intraoperative Assessment Comment [facility] IntraOp Intraoperative Equipment Entry 1 Type Equipment Equipment Equipment Ganesh Suction System ID Number [id number] Setting 200 MM HG Intraop Monitoring Electrocardiogram Five lead placement (ECG) Electrode Placement Blood Pressure Non-Invasive BP Device Source Blood Pressure Arm, right upper Location Pulse Oximeter Hand, left Probe Site Antiembolic Devices Antiembolic Devices Sequential compression device, knee high Antiembolic Device Bilateral Location Antiembolic Device [id number] ID Number Scopes Photo/Video Documentation Photo No Video No Last Modified By: ARCHIE BENITEZ RN 11/05/19 09:42:18 [facility] IntraOp Medication Admin Entry 1 Entry 2 Entry 3 Medication/Irrigant Bacitracin 50,00units lidocaine 1% w/ Neosporin 15Gm ointment powder vial epinephrine 1:100,000 - [id number] 30ml vial - [id number] Combo Med List Time Administered Route of ADDED TO NS IRRIGATION LOCAL TOPICAL Administration Dose Dose 59972 20 1 Unit of Measure units ml pkt Volume Administered By HEIDE KAT, HEIDE KAT HANCOCK SMITH, MD-SNU MD-SNU COURTNEY, PA-INT Procedure Irrigation Irrigant Volume In Irrigant Volume Out Last Modified By: ARCHIE BENITEZ, ARCHIE BROWN, ARCHIE BROWN RN 11/05/19 10:00:31 11/05/19 10:00:31 11/05/19 10:00:31 Entry 4 Entry 5 Entry 6 Medication/Irrigant SEALR AQUAMANTYS BIPLR SPNG SURGFOAM thrombin 5000units 6.0-012604 [id number] topical powder - [id number] Combo Med List Time Administered Route of OTHER TOPICAL TOPICAL Administration Dose Dose 1 5000 Unit of Measure pkt units Volume Administered By HEIDE KAT TUTT, MATTHEW PAIGE, TUTT, MATTHEW PAIGE, MD-SNU MD-SNU MD-SNU Procedure Irrigation Irrigant Volume In Irrigant Volume Out Last Modified By: ARCHIE BENITEZ, ARCHIE BROWN RN WASSON, SANDRA D, RN 11/05/19 10:00:31 11/05/19 10:00:31 11/05/19 10:00:31 Entry 7 Entry 8 Medication/Irrigant Marcaine 0.25% 30ml vancomycin 1Gm vial - vial - [id number] Combo Med List Time Administered Route of LOCAL TOPICAL Administration Dose Dose 1 Unit of Measure gram Volume Administered By HEIDE KAT TUTT, MATTHEW PAIGE, MD-SNU MD-SNU Procedure Irrigation Irrigant Volume In Irrigant Volume Out Last Modified By: ARCHIE BENITEZ RN WASSON, SANDRA D, RN 11/05/19 10:00:31 11/05/19 11:01:15 [facility] IntraOp Medication Admin Audit 11/05/19 11:01:15 Vp Product Marketing: WASSONSY Modifier: WASSONSY <+> 8 Medication/Irrigant <+> 8 Route of Administration <+> 8 Administered By <+> 8 Dose <+> 8 Unit of Measure [facility] IntraOp Patient Positioning Entry 1 Procedure Lumbar Fusion Posterior 3 Level Body Position Prone Left Arm Position Secured on padded arm board Right Arm Position Secured on padded arm board Left Leg Position Elevated Right Leg Position Elevated Feet Uncrossed Yes Pressure Points Yes Checked Positioning Devices Head Rest, Pad, Arm, Pad, Elbow, Pillows, Safety Strap, Arm(s), Safety Strap, Thighs, Table, Spinal Device Position PRONE ON T3 TRUMPF FRAME WITH CHEST, HIP AND THIGH PADS Positioned By HEIDE KAT MD-SNU, ARCHIE BENITEZ RN, RUDOLPH NASCIMENTO PA-INT, HARITHA FUNES APRN Position Verified Positioning No Verified by Anesthesia Positioning No Verified by Surgeon Last Modified By: ARCHIE BENITEZ RN 11/05/19 09:44:47 [facility] IntraOp Sign In Entry 1 Patient, Site, Yes Procedure Identified Surgical Consent Yes Confirmed Relevant Surgical Yes Documents Available Surgical Site N/A Marked by person performing procedure Anesthesia Machine Yes Check Completed Medication Checks Yes Completed Allergies Yes Airway Difficult No Airway/Aspiration Risk Difficult Yes Airway/Aspiration Intervention Equipment Available Blood Loss Risk Yes Blood Loss Yes Intervention Equipment Prepared and Ready Blood Identifiers Yes Verified Per Policy Hypothermia Risk Yes Warming Measures Yes Taken Last Modified By: ARCHIE BENITEZ RN 11/05/19 09:54:12 [facility] IntraOp Sign Out Entry 1 RN [...] Checklist Yes Elements Complete? RN Sign Out ARCHIE BENITEZ, RN Signature RN Sign Out 11/05/19 12:09:00 Signature Date/Time Plan of Care Outcome - [...] related to extraneous objects Last Modified By: ARCHIE BENITEZ RN 11/05/19 10:40:02 [facility] IntraOp Sign Out Audit 11/05/19 12:08:07 Vp Product Marketing: NIKI Modifier: NIKI <+> 1 RN Sign Out Signature Date/Time [facility] IntraOp Skin Prep Entry 1 Procedure Lumbar Fusion Posterior 3 Level Prescribed N/A Pre-Surgical Prep Completed Prep Area OP SITE AFTER ALCOHOL A ND HIBICLENS PREP PER DR KAT Intraop Prep Integumentary WDL Assessment WDL Prep Agents Alcohol, Chlorhexadine gluconate, DuraPrep Prep by ARCHIE BENITEZ RN Hair Removal Methods No hair removal performed Last Modified By: ARCHIE BENITEZ RN 11/05/19 09:57:03 [facility] IntraOp Skin Prep Audit 11/05/19 09:57:58 Vp Product Marketing: WASSONSY Modifier: WASSONSY 1 <+> Prep Agents 1 <+> Methods 1 <*> Procedure Lumbar Fusion Posterior 3 Level 1 <+> Prep by [facility] IntraOp Surgical Procedures Entry 1 Procedure Lumbar Fusion Posterior 3 Level Additional (THORACIC 6 - 9 FUSION Procedure EXTENSION WITH AIRO AND Description SCREW AUGMENTATION Primary Procedure Yes Primary Surgeon NORTH, HEIDE MORENO MD-SNU Start 11/05/19 09:27:00 Stop 11/05/19 11:37:00 Anesthesia Type General Specialty Neurosurgery Wound Class I - Clean Last Modified By: ARCHIE BENITEZ RN 11/05/19 12:01:30 [facility] IntraOp Surgical Procedures Audit 11/05/19 12:01:30 Vp Product Marketing: BRADYCM Modifier: WASSONSY 1 <*> Procedure Lumbar Fusion Posterior 3 Level 1 <*> Additional Procedure Description (THORACIC FUSION EXTENSION WITH AIRO WITH SCREW AUGMENTATION 11/05/19 11:40:16 Vp Product Marketing: WASSONSY Modifier: BRADYCM <+> 1 Stop 11/05/19 10:32:50 Vp Product Marketing: WASSONSY Modifier: WASSONSY 1 <*> Procedure Lumbar Fusion Posterior 3 Level 1 <*> Additional Procedure Description (THORACIC FUSION EXTENSION WITH AIRO) [facility] IntraOp Temp Regulation Devices Entry 1 Temp Regulation Temperature Warm blankets, Forced Regulation Device Air Warming device Temperature 60251 Regulation Device Serial/Unit Number Temperature Upper body Regulation Site Temperature Device 43 C Setting Temperature HARITHA FUNES APRN Regulation Device Applied by Last Modified By: ARCHIE BENITEZ RN 11/05/19 09:53:34 [facility] IntraOP Time Out Entry 1 Procedure to be Lumbar Fusion Posterior Performed 3 Level Time Out Time Out Pause Time 11/05/19 09:26:00 All activity Yes suspended (unless life threatening emergency) Team Verbally Correct patient Confirms Information identity, Consent form is present and accurate, Agreement [...] specific concerns Nursing Assures Sterility of instruments, Equipment concerns or issues, Implant Availability Essential Imaging Yes Labeled and Displayed Last Modified By: ARCHIE BENITEZ RN 11/05/19 09:37:28 [facility] IntraOp X-Ray and Images Entry 1 X-Ray/Imaging Type Other Fluoroscopy Type Other Site OP SITE Daylight Driller Name Claribel Monteiro, Wrapper [facility]IN[facility] AIRO Comment INTRAOPERATAIVE CT SCANNER Last Modified By: ARCHIE BENITEZ RN 11/05/19 10:39:20 Case Comments <None> Finalized By: JUNIE ROWLEY Document Signatures Signed By: ARCHIE BENITEZ RN 11/05/19 12:08 JUNIE ROWLEY 11/06/19 17:47 Unfinalized History Date/Time Username Reason for Unfinalizing Freetext Reason for Unfinalizing 11/06/19 17:39 WATERIC Correct Billing Electronically signed by [facility] Conversion Motorcycle Police Cerner at 11/12/2022 9:52 PM CDT documented in this encounter Plan of Treatment Not on file documented as of this encounter Visit Diagnoses Not on filedocumented in this encounter
--- OUTSIDE RECORDS SUMMARY | 2025-01-27 13:10 | XMS_ITS | Encounter Summary ---
Author Organization [employer] ([place], [place], [place], [place]) Address [address] [place] [address] Care Team Providers Care Drafter (Cad) Electrical Name Role Phone Unavailable Primary Care Provider Unavailabl e Encounter Details Date Type Department Care Team (Late st Contact Info) Description 12/22/2018 Transcribed Document [facility] [place] [address] [place] [address] ProviderAgnieszka MD [address], [place] [id number] Social History Tobacco Use Types Packs/Day Years Used Date Smoking Tobacco: Never Assessed Sex and Gender Information Value Date Recorded Sex Assigned at Not on file Legal Sex Male 2:38 PM CDT Gender Identity Not on file Sexual Orientation Not on file documented as of this encounter Miscellaneous Notes * Cerner Conversion Note - Historical ProviderMD - 12/22/2018 5:40 PM CDT Evaluation, Physical Therapy Entered On: 12/23/2018 10:57 EDT Performed On: 12/23/2018 10:57 EDT by Nate Woodard, [facility] General Information, PT Therapy Diagnosis, PT : Impaired transfers and gait Onset of Problem, PT : 12/22/2018 EDT Co-treated by, PT : Occupational Therapist Sensory Deficits, Rehab : None Precautions in Place : Log roll precautions, Spinal Precautions, Other: Out of bed with brace Nate Woodard, [facility] - 12/23/2018 11:02 EDT General Information Comment, PT : Dx: Back and R LE pain Sx: 1. L2-3, L3-4, L4-5, L5-S1 laminectomy. 2. L2-3, L3-4 and L5-S1 posterior lumbar interbody fusion. 3. Bilateral iliac bolt placement. 4. T10 through iliac posterior instrumentation. 5. T10 through S1 posterior lateral fusion. 6. Intraoperative CT scan with stereotactic navigation using the BrainLAB curve. Hx: Parkinsons, Sleep apnea Orders: with brace Nate Woodard [facility] - 12/23/2018 11:06 EDT Visit Type, PT : Initial evaluation Patient Orders : Order Date Order Ordering MD 12/22/2018 17:40 Physical Therapy Eval and Treat Ordered By: HEIDE KAT MD-SNLanie Active Diagnoses : No Qualifying Diagnoses Admission Date : 12/22/2018 06:36 Personal Devices : Personal Devices No Devices Recorded Assistive Devices : Assistive Devices No Devices Recorded [facility] 12/23/2018 10:57 EDT General Status Patient Received Status : Supine in bed Treatment Start Time : 12/23/2018 10:20 EDT Patient Left Status : Up in chair, Family/Visitors at bedside, Communication board completed, All needs met and within reach RN/PCT Informed Comment : Nsg notified of low blood pressure and PT left patient off of O2 due to saturation reading 97% after ambulation. Treatment End Time : 12/23/2018 10:49 EDT Treatment Time : 29 Minute(s) [facility] 12/23/2018 11:06 EDT History and Environment Living Situation, Therapy : Home Patient Lives With : Spouse Persons Assisting Patient at Home : Spouse Persons Providing Information : Patient Home Equipment Therapy, PT : None Home Setup : One story Stairs : No [facility] - 12/23/2018 11:06 EDT Prior Level of Function PT GRID Prior LOF Ambulation, Household : Independent Prior LOF Ambulation, Community : Independent Prior LOF Bed Mobility : Independent Prior LOF Toileting : Independent Prior LOF Transfer : Independent [facility] - 12/23/2018 11:06 EDT Intervention Summary O2 Pre-Intervention : 2L O2 NC SpO2 Pre-Intervention : 100 % O2 During Intervention : Room air SpO2 During Intervention : 97 % O2 Post-Intervention : Room air. Nsg notified SpO2 Post-Intervention : 96 % Nate Woodard [facility] - 12/23/2018 11:06 EDT Lower Extremity RLE Active ROM : WFL LLE Active ROM : WFL Nate Woodard, [facility] - 12/23/2018 11:06 EDT Right Lower Extremity MMT Knee Flexion (0-140) : 4/good Knee Extension (0-0) : 4/good Ankle Dorsiflexion (0-20) : 4/good Ankle Plantarflexion (0-45) : 4/good Nate Woodard, [facility] - 12/23/2018 11:06 EDT Left Lower Extremity MMT Knee Flexion (0-140) : 4/good Knee Extension (0-0) : 4/good Ankle Dorsiflexion (0-20) : 4/good Ankle Plantarflexion (0-45) : 4/good Nate Woodard, [facility] - 12/23/2018 11:06 EDT Functional Mobility Mobility Grid Bed Roll Right : Rehab Moderate assistance Bed Scooting : Rehab Moderate assistance Supine to Sit : Rehab Moderate assistance Sit to Stand : Rehab Minimal assistance (Comment: x 2 [Nate Woodard, [facility] - 12/23/2018 12:10 EDT] ) Stand to Sit : Rehab Minimal assistance (Comment: x 2 [Nate Woodard, [facility] - 12/23/2018 12:10 EDT] ) Nate Woodard, [facility] - 12/23/2018 11:06 EDT Bed Mobility Scooting Device : Cloth under pad Bed Comment : Patient had difficulty with initation of scooting Nate Woodard, [facility] - 12/23/2018 11:06 EDT Gait Training/Assessment, PT Weight Bearing Status : Full Gait Assistance Level : Assist, minimal Walking Distance : 80' with min. Ax2 with IV pole, bulb drain, LSO brace donned Ambulatory Devices : Gait belt, Walker, front wheel Gait Deviations : Yes Left Lower Gait Deviation : Emeli, decreased, Foot clearance, decreased, Hip flexion, decreased, Knee flexion, decreased, Shuffling, Step length, decreased Right Lower Gait Deviation : Emeli, decreased, Foot clearance, decreased, Hip flexion, decreased, Knee flexion, decreased, Shuffling, Stride length, decreased Nate Woodard, [facility] - 12/23/2018 11:06 EDT Cognition Assessment, PT Orientation : Oriented x 4 Follows Basic Command Assessment : Patient needs extended time to process command [facility] 12/23/2018 11:47 EDT Edu Topics Physical Therapy Education Grid Bed Mobility Training : Needs further teaching, Needs reinforcement Gait Training : Needs further teaching, Needs reinforcement Safety : Needs further teaching, Needs reinforcement Use of Assistive Device : Needs further teaching, Needs reinforcement Nate Woodard [facility] - 12/23/2018 11:47 EDT Indication Assesessment, PT Physical Therapy Indicated : Yes PT Problem List : Impaired, activities daily living, Impaired, bed mobility, Impaired, coordination/proprioception, Impaired, endurance tolerance, Impaired, gait, Impaired, joint mobility, Impaired, sitting balance, Impaired, standing balance, Impaired, transfers Potential Barriers To Therapy : Acuity of Illness Rehabilitation Potential : Good Nate Woodard [facility] - 12/23/2018 11:47 EDT Plan of Care, PT PT Tx Plan/Goals Established w Patient : Yes PT Frequency Rehab : Daily, twice (bid) PT Duration Rehab : Fourteen days PT Treatments Planned : Balance training, Bed mobility training, Caregiver training, Gait training, Pain management, Safety education, Transfer training Nate oWodard [facility] - 12/23/2018 11:47 EDT Short Term Goals Mobility/Bed Mobility STG PT Grid Goal #1 Activity : Supine to sit Assist : Supervision or set-up Date to Meet : 12/30/2018 EDT Goal Status : Initial goal [facility] - 12/23/2018 11:47 EDT Mine Car Mechanic Goals Mobility/Bed Mobility LTG PT Grid Goal #1 Activity : Sit to stand Cues : Minimum verbal cues Assist : Supervision or set-up Date to Meet : 01/06/2019 EDT Goal Status : Intial Goal [facility] - 12/23/2018 11:47 EDT Ambulation LTG Grid Goal #1 Device : Walker, front wheel Distance : 200' Cues : Minimum verbal cues Assist : Supervision or set-up Date to Meet : 01/06/2019 EDT Goal Status : Intial Goal [facility] - 12/23/2018 11:47 EDT Treatment Note Subjective Comment : Patient agreeable to Tx. Nsg ok'd Tx. Additional Objective Information : Patient sat edge of bed with min. assist to don back brace. Patient was dependent for donning of back brace. OT/PT had to assemble back brace. Assessment : Patient requring increase assitance with bed mobility, transfers and gait. Patient would benefit from skilled PT to improve balance and safety, and decrease caregiver burden. [facility] - 12/23/2018 11:47 EDT Plan for Treatment : Cont. PT. PT has reviewed and agrees with note. JACQUI MCGUIRE, PT - 12/23/2018 12:10 EDT Pain Assessment Pain Scaled Used : 0-10 Pain scale Pain Score Pre-Intervention : 0 Pain Score During-Intervention : 0 Pain Score Post-Intervention. : 0 Nate Wood[facility], [facility] - 12/23/2018 11:47 EDT Image 1 - Images currently included in the form version of this document have not been included in the text rendition version of the form. Anticipated Discharge Needs, OT/PT Anticipated Discharge to : Home, with family care, Unit, rehabilitation Recommend Continued Therapy at Discharge : Yes Nate Woodard, [facility] - 12/23/2018 11:[address] [facility] [facility] PT Charges PT Eval Moderate Complexity : 1 Nate Woodard [facility] - 12/23/2018 11:47 EDT documented in this encounter Plan of Treatment Not on file documented as of this encounter Visit Diagnoses Not on filedocumented in this encounter
--- OUTSIDE RECORDS SUMMARY | 2025-01-27 13:10 | XMS_ITS | Encounter Summary ---
Author Organization [employer] ([place], [place], [place], [place]) Address [address] [place] [address] Care Team Providers Care Jumpbasting Facing Baster Name Role Phone Unavailable Primary Care Provider Unavailabl e Encounter Details Date Type Department Care Team (Late st Contact Info) Description 11/05/2019 Transcribed Document [facility] [place] [facility] [place] [address] ProviderAgnieszka MD [address], [place] [id number] Social History Tobacco Use Types Packs/Day Years Used Date Smoking Tobacco: Never Assessed Sex and Gender Information Value Date Recorded Sex Assigned at Not on file Legal Sex Male 2:38 PM CDT Gender Identity Not on file Sexual Orientation Not on file documented as of this encounter Miscellaneous Notes * Cerner Conversion Note - Agnieszka ProviderMD - 11/05/2019 8:06 AM CDT Patient: SIMBA MAYEN JR Age: [...] with no adverse drug reactions. Microbiology reports. PAST MEDICAL HISTORY Rheumatoid Arthritis on [...] Nebulized Inhalation, RT_Q6H, PRN: Shortness of Breath Lactated Ringers Injection intravenous solution 1,000 mL: 20 mL/Hr, IntraVENous MiraLax: 17 Gram, Oral, Daily, PRN: Constipation [place] 10 mg-325 mg oral tablet: 1 Tab, [...] mL: 2 Gram, 100 mL/Hr, IV Piggyback, [id number] hydrALAZINE: 10 mg, IV Push, Q6H, PRN: Hypertension lactobacillus acidophilus: 1 Cap, Oral, Daily lidocaine 1% preservative-free injectable solution: 0.5 mL, IntraDermal, 1-Time morphine: 2 mg, IV Push, Q2H, PRN: Pain (Severe 7-10) sodium chloride 0.9% injectable solution: 10 mL, IV Push, Q8H vancomycin + Sodium Chloride 0.9% intravenous solution 250 mL: 1,250 mg, 250 mL/Hr, IV Piggyback, [id number] Pending Complete fentaNYL: 25 mcg, IV Push, Q10Min Documented Medications Documented Azilect 1 mg oral tablet: 1 Tab, Oral, Daily, 30 Tab, 0 Refill(s) Remicade: 10 mg/kg, IntraVENous, [id number], for Ulcerative Colitis; Last dose: 09/29/2019, 0 Refill(s) carbidopa-levodopa 25 mg-100 mg oral tablet: 1 Tab, Oral, QID, 120 Tab, 0 Refill(s), Medications (18) Active Scheduled: (9) #NaCl 0.9% *FLUSH* inj 10 mL 10 mL, IV Push, Q8H amLODIPine 10 mg tab 10 mg 1 Tab, Oral, Daily carbidopa/levodopa 25/100 mg tab 1 Tab, Oral, QID cefEPIME + NaCl 0.9% 50 mL 2 Gram, IV Piggyback, [id number] docusate sodium 100 mg cap 100 mg 1 Cap, Oral, BID lactobacillus acidophilus cap 1 Cap, Oral, Daily lidocaine 1% *PF* inj 2 mL 0.5 mL, IntraDermal, 1-Time rasagiline 1 mg tab 1 mg 1 Tab, Oral, Daily vancomycin + NaCl 0.9% 250 mL 1,250 mg, IV Piggyback, [id number] Continuous: (1) lactated ringers 1,000 mL 1,000 mL, IntraVENous, 20 mL/Hr PRN: (8) acetaminophen/HYDROcodone 325/10 mg tab 1 Tab, Oral, Q6H albuterol-ipratropium inh 3 mL 3 mL, Nebulized Inhalation, RT_Q6H bisacodyl 10 mg supp 10 mg 1 Supp, Rectal, BID diazepam 10 mg/2 mL inj syr 5 mg 1 mL, IV Push, Q6H hydrALAZINE 20 mg/1 mL inj 10 mg 0.5 mL, IV Push, Q6H morphine 2 mg/1 ml inj 2 mg 1 mL, IV Push, Q2H ondansetron 4 mg/2 mL inj 4 mg 2 mL, IV Push, Q4H polyethylene glycol 3350 pwd 17 g pkt 17 Gram 1 Packet, Oral, Daily Problem list: All Problems Parkinson disease / SNOMED CT 13371443 / Confirmed Scoliosis / SNOMED CT 582742446 / Confirmed Colitis / SNOMED CT 0726295203 / Confirmed Arthritis / SNOMED CT 6493706 / Confirmed 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 Eye: Normal conjunctiva, nonicteric. HENT: Normocephalic. Traumatic Neck: Supple. Respiratory: Lungs are clear to auscultation no rhonchi or wheezing noted, Respirations are non-labored, Breath sounds are equal, Symmetrical chest wall expansion. Cardiovascular: Normal rate, Regular rhythm, No murmur, rubs or gallops, No edema. Gastrointestinal: Soft, Non-tender, Non-distended, Normal [...] 291 (NOV 02) 283 (NOV 01) Na 136 (OCT 10) 139 (NOV 02) 137 (NOV 01) K 4.0 (NOV 04) 3.6 (NOV 02) 4.5 (OCT 07) Cl 104 (OCT 10) 109 (OCT 08) 106 (NOV 01) CO2 26 (NOV 04) 25 (NOV 02) 23 (NOV 01) BUN 12 (OCT 10) 15 (OCT 08) 19 (OCT 07) Cr 0.80 (OCT 10) 0.70 (OCT 08) 1.00 (OCT 07) Glu R 95 (NOV 04) 93 (OCT 08) 100 (NOV 01) Ca 8.4 (NOV 04) 8.8 (NOV 02) 8.9 (NOV 01) Lactic 1.3 (NOV 01) PT 11.3 (OCT 10) 11.2 (OCT 07) INR 1.1 (NOV 04) 1.1 (NOV 01) [...]
--- OUTSIDE RECORDS SUMMARY | 2025-01-27 13:10 | XMS_ITS | Encounter Summary ---
Author Organization [employer] ([place], [place], [place], [place]) Address [address] [place] [address] Care Team Providers Care Hris Coordinator Name Role Phone Unavailable Primary Care Provider Unavailabl e Encounter Details Date Type Department Care Team (Late st Contact Info) Description 11/06/2019 Transcribed Document [facility] Neurology - [address] [facility] [address] [place] [address] Heide Akers MD [address] [place] [address] Social History Tobacco Use Types Packs/Day Years Used Date Smoking Tobacco: Never Assessed Sex and Gender Information Value Date Recorded Sex Assigned at Not on file Legal Sex Male 2:38 PM CDT Gender Identity Not on file Sexual Orientation Not on file documented as of this encounter Miscellaneous Notes * Cerner Conversion Note - Heide Akers MD - 11/06/2019 12:39 PM EDT Patient: SIMBA MAYEN JR Age: 69 years Sex: Male : 1950 Associated Diagnoses: None Author: HEIDE AKERS MD-U MRI shows anterior compression on the thoracic cord at ~T9/10. Spoke with and will go to OR emergently for decompression. documented in this encounter Plan of Treatment Not on file documented as of this encounter Visit Diagnoses Not on filedocumented in this encounter
--- OUTSIDE RECORDS SUMMARY | 2025-01-27 13:10 | XMS_ITS | Encounter Summary ---
Author Organization [employer] ([place], [place], [place], [place]) Address [address] [place] [address] Care Team Providers Care Skeet Operator Name Role Phone Unavailable Primary Care Provider Unavailabl e Encounter Details Date Type Department Care Team (Late st Contact Info) Description 11/06/2019 Transcribed Document [facility] [place] Family Medicine Count [facility] [place] [address] ProviderAgnieszka MD [address], [place] [id number] Social History Tobacco Use Types Packs/Day Years Used Date Smoking Tobacco: Never Assessed Sex and Gender Information Value Date Recorded Sex Assigned at Not on file Legal Sex Male 2:38 PM CDT Gender Identity Not on file Sexual Orientation Not on file documented as of this encounter Miscellaneous Notes * Cerner Conversion Note - Historical ProviderMD - 11/06/2019 2:00 AM CDT Pain Assessment Entered On: 11/06/2019 1:59 EDT Performed On: 11/06/2019 2:00 EDT by Faye Parekh RN Intervention Information: acetaminophen Performed by Faye Parekh RN on 11/06/2019 01:00:00 EDT acetaminophen,650mg Oral Pain Assessment Pain Assessment : Follow-up assessment Pain Scale Goal : 4 Pain Scale Used : 0-10 Scale Faye Parekh RN - 11/06/2019 1:59 EDT Pain Scale Intensity : 3 Faye Parekh RN - 11/06/2019 1:59 EDT Image 4 - Images currently included in the form version of this document have not been included in the text rendition version of the form. documented in this encounter Plan of Treatment Not on file documented as of this encounter Visit Diagnoses Not on filedocumented in this encounter
--- OUTSIDE RECORDS SUMMARY | 2025-01-27 13:10 | XMS_ITS | Clinical Summary ---
Author Organization [facility] Address [address] [place] [address] Care Team Providers Care Customer Marketing Manager Name Role Phone Faustino Jones MD Primary Care Provider [phone] Allergies No known active allergies Medications FLUoxetine (PROzac) 20 MG capsule 05/14/2021 Active amLODIPine (Norvasc) 5 MG tablet 05/14/2021 Active rasagiline (Azilect) 1 MG tablet 02/13/2021 Active carbidopa-levodo pa (Sinemet) 25-100 MG tablet 02/26/2021 Ac tive Eliquis 2.5 MG tablet 05/20/2021 Active Nuplazid 34 MG capsule 03/16/2021 Active vedolizumab (Entyvio) 300 MG injection Every 8 weeks 11/24/2020 Active nitrofurantoin (Macrodantin) 50 MG capsule 05/14/2021 Active cyclobenzaprine (Flexeril) 10 MG tablet 02/24/2021 Active LACTOBACILLUS PROBIOTIC PO Take 1 tablet daily 05/16/2020 Active cholecalciferol (Vitamin D-3) 25 MCG (1000 UT) capsule 02/15/2020 Active baclofen (Lioresal) 10 MG tablet Take 10 mg by mouth 3 (three) times a day. Active Active Problems Problem Noted Date Diagnosed Date Ulcerative colitis without complications 022 SAM (obstructive sleep apnea) 01/04/2021 Parkinson's disease 01/04/2021 Immunizations Immunization Administration Dates Next Due Hep A, Adult 10/20/2018,04/21/2018 Influenza, high-dose, quadrivalent 05/22/2021 Influenza, injectable, quadrivalent, preservativ e free 04/22/2019,04/21/2018 Influenza, seasonal, injectable 05/16/2020 Family History Medical History Relation Name Comments Leukemia Father Diabetes Sibling Relation Name Status Comments Father Sibling Social History Tobacco Use Types Packs/Day Years Used Date Smoking Tobacco: Never Smokeless Tobacco: Never Alcohol Use Standard Drinks/Week Comments No 0 (1 standard drink = 0.6 oz pur e alcohol) PHQ-2 Answer Date Recorded Patient Health Questionnaire-2 Score 0 02/12/2022 Sex and Gender Information Value Date Recorded Sex Assigned at Not on file Legal Sex Male 8:50 PM EDT Gender Identity Not on file Sexual Orientation Not on file Last Filed Vital Signs Vital Sign Reading Time Taken Comments Blood Pressure 127/85 02/12/2022 2:05 PM EDT Pulse 76 02/12/2022 2:05 PM EDT Temperature 37.1 C (98.7 F) 02/12/2022 2:05 PM EDT Respiratory Rate - - Oxygen Saturation 98% 02/12/2022 2:05 PM EDT Inhaled Oxygen Concentration - - Weight 83.9 kg (184 lb 15.8 oz) 11/21/2020 2:16 PM EDT Height 175.3 cm (5' 9 ) 02/12/2022 2:05 PM EDT Body Mass Index 27.32 11/21/2020 2:16 PM EDT Plan of Treatment Health Maintenance Due Date Last Done Comments [facility]-Hepatitis C Screening 1950 [facility]-Medicare Annual Wellness (AWV) 1950 [facility]-Infant/Child/Adol SDOH Screenings 1950 [facility]- SDOH Screenings 10/16/1967 [facility]-Adult SDOH Screenings 10/16/1967 [facility]-DTaP,Tdap,and Td Vaccines (1 - Tdap) 1968 CT Colonography 1994 FIT 1994 FOBT 1994 Sigmoidoscopy 1994 [facility]-Pneumococcal Vaccine: 50+ Years (1 of 1 - PCV) 10/16/1999 [facility]-Zoster Vaccines (1 of 2) 10/16/1999 [facility]-Depression Screening 02/12/2023 02/12/2022 [id number] Vaccine ( - 2024-25 season) 2024 02/07/2022, 05/23/2021, 10/04/2020, Additional history exists [facility]-RSV Vaccine: 60+ Years or (1 - 1-dose 75+ series) 2024 FIT-DNA 01/23/2025 01/23/2022 [facility]-Influenza Vaccine (#1) 03/28/202505/22, 05/16/2020, 04/22/2019, Additional history exists Colonoscopy 06/14/2029 06/14/2019, 06/16/2017 [facility]-Colorectal Cancer Screening 06/14/2029 [facility]-Hepatitis A Vaccines Aged Out 10/20/2018, 03/29 No longer eligible based on patient's age to complete this topic HPV Vaccines Aged Out No longer eligi ble based on patient's age to complete this topic [facility]-HIB Vaccines Aged Out No longer e ligible based on patient's age to complete this topic [facility]-IPV Vaccines Aged Out No longer e ligible based on patient's age to complete this topic [facility]-Rotavirus Vaccines Aged Out No lo nger eligible based on patient's age to complete this topic Procedures Procedure Name Priority Date/Time Associated Diagnosis Comments LAB COLOGUARD COLON CANCER SCREEN Routine 01/23/2022 COLONOSCOPY 06/14/2019 from Last 3 Months or Most Recently Relevant to Health Maintenance Results * Cologuard?? colon cancer screening (01/23/2022) NONINV COLON CA DNA+OCC BLD SCRN STL-IMP Negative [employer] NONINV COLON CA DNA+OCC BLD SCRN STL QL Negative [employer] Stool Stool specimen / Unknown 01/23/2022 us Ally [facility] MOLECULAR DIAGNOSTICS O RDERABLES Final Result [employer] * COLONOSCOPY (06/14/2019) Anatomical Region Laterality Modality Endoscopy Narrative 06/14/2019 Ordered by an unspecified provider. us Historical Provider MD GI PROCEDURE ORDERABLES F inal Result from Last 3 Months or Most Recently Relevant to Health Maintenance Insurance [id number] [place] [place] [id number] [place] [address] Care Teams Customer Marketing Manager Relationship Specialty Start Date End Date Faustino Jones MD [address] [place] [address] [address] [id number] PCP - General 12/08/20
--- OUTSIDE RECORDS SUMMARY | 2025-01-27 13:10 | XMS_ITS | Encounter Summary ---
Author Organization [employer] ([place], [place], [place], [place]) Address [address] [place] [address] Care Team Providers Care Company Controller Name Role Phone Unavailable Primary Care Provider Unavailabl e Encounter Details Date Type Department Care Team (Late st Contact Info) Description 11/06/[address] [facility] Radiology [address] [place] [address] Carlo Evans MD [address] [place], [place] [id number] Social History Tobacco Use Types Packs/Day Years Used Date Smoking Tobacco: Never Assessed Sex and Gender Information Value Date Recorded Sex Assigned at Not on file Legal Sex Male 2:38 PM CDT Gender Identity Not on file Sexual Orientation Not on file documented as of this encounter Miscellaneous Notes * Cerner Conversion Note - Carlo Evans MD - 11/06/2019 7:39 PM EDT Patient: SIMBA MAYEN JR Age: 69 Years Sex: Male : 1950 Subjective Patient seen and examined Date Of Service 11/06/2019. Patient with lower leg paralysis with MRI showing anterior compression of cord so back to OR for washout and decompression today. Tachycardia likely due to anxiety. Oriented /. called and discussed paralysis and MRI this AM. Other than patient reporting inability to feel or move lower legs he is a negative ROS. Patient denies having fever/chills, back pain, SOA, cough, sore throat, myalgias, chest pain, palpitations, n/v/d, abdominal pain, and dysuria. Vital Signs T: 36.9 ??C TMIN: 36.4 ??C TMAX: 37.1 ??C HR: 85(Monitored) RR: 17 BP: 125/75 SpO2: 95% Oxygen Settings (Last) Oxygen Therapy Mode: Room air (11/06/19 15:15:00) Oxygen Flow Rate: 2 Liter/Min (11/06/19 14:45:00) Intake & Output Totals Last 24 Hours (7a-7a) Input Total: 1671.5 mL Output Total: 2009 mL Balance: -338.5 mL Physical Exam General: [Alert and oriented, well nourished, no acute distress]. Neurologic: [Equal cupola melter helper strength bilaterally, no movement or feeling in [...] Psychiatric: [Cooperative, appropriate mood and affect]. Assessment/Plan Acute back pain in immunocompromised host -Differential discitis/osteomyelitis with possible abscess after thoracic [...] -PAIN control PRN -Blood culture x 2: NGTD -PT/OT to eval/treat when able -ID following: Cefepime and Vanc, PICC ordered 11/04 in prep for longterm abx -Patient hemodynamically stable, afebrile -NSY following: thoracic fusion extension with airo navigation on 11/05/[address] Kat --> bilateral lower leg Paralysis on 11/05 with MRI sowing acute anterior compression at T9/10 --> back to OR 11/05 for T8 through T11 laminectomy for decompression of epidural abscess. Rheumatoid Arthritis -On Remicade outpatient, holding due [...] airo navigation on 11/05/[address] Kat. Uncontrolled hypertension -Likely secondary to pain--still believe pain related -Increased Norvasc 10 mg -Patient not on blood pressure medication at home -PRN hydralazine Large hiatal hernia containing majority of the stomach. -Noted on CT spine -Consider surgery consult -Recommend as outpatient follow-up History of Parkinson disease -Continue home medication Constipation -Bowel regimen, monitor DVT prophylaxis: SCD GI ppx: lactobacillus Abx: Vanc and Cefepime FULL CODE DISPO: TO OR for Thoracic fusion extension with airo navigation on 11/05/19 with acute paralysis on 11/05 and MRI showing possible abscess with anterior cord compression to back to OR 11/[address] Kat following. ID following, PICC in place, needs long winder tender abx recs prior to discharge. Awaiting PT/OT eval post-op, Bp improved. Will keep informed when available. Time spent: 30 minutes. ILexii PA-C, personally evaluated the patient. Patient discussed with Dr. Evans who agrees with the plan of care above. VTE Prophylaxis - Medical Sequential Compression Device Start: 11/05/19 14:49:00 EDT, [...] Fleet Enema, 133 mL, Rectal, Daily, PRN hydrALAZINE, 10 mg= 0.5 mL, IV Push, [...] Test Name Test Result Date/Time Sodium Level 133 mmol/L (Low) 11/06/2019 05:53 EDT Potassium Level 4.2 mmol/L 11/06/2019 05:53 EDT Chloride Level 103 mmol/L 11/06/2019 05:53 EDT Carbon Dioxide Level 27 mmol/L 11/06/2019 05:53 EDT Anion Gap 7 (Low) 11/06/2019 05:53 EDT Glucose Level 98 mg/dL 11/06/2019 05:53 EDT Blood Urea Nitrogen 9 mg/dL 11/06/2019 05:53 EDT Creatinine Level 0.70 mg/dL 11/06/2019 05:53 EDT eGFR >60 mL/min/1.73m2 11/06/2019 05:53 EDT eGFR NonAfrican >60 mL/min/1.73m2 11/06/2019 05:53 EDT Bun/Creatinine 12.9 11/06/2019 05:53 EDT Calcium Level 8.3 mg/dL (Low) 11/06/2019 05:53 EDT Protein Total 6.8 Gram/dL 11/06/2019 05:53 EDT Albumin Level 2.0 Gram/dL (Low) 11/06/2019 05:53 EDT Globulin 4.8 Gram/dL (High) 11/06/2019 05:53 EDT A/G Ratio 0.4 (Low) 11/06/2019 05:53 EDT Bilirubin Total 0.5 mg/dL 11/06/2019 05:53 EDT Alk Phos 100 Units/Liter 11/06/2019 05:53 EDT AST 19 Units/Liter 11/06/2019 05:53 EDT ALT 8 Units/Liter (Low) 11/06/2019 05:53 EDT WBC 7.2 K/uL 11/06/2019 05:53 EDT RBC 4.39 Million/uL 11/06/2019 05:53 EDT Hgb 11.7 g/dL (Low) 11/06/2019 05:53 EDT Hct 36.4 % (Low) 11/06/2019 05:53 EDT MCV 82.9 fL 11/06/2019 05:53 EDT MCH 26.7 pg 11/06/2019 05:53 EDT MCHC 32.1 Gram/dL (Low) 11/06/2019 05:53 EDT Platelet Count 230 K/uL 11/06/2019 05:53 EDT MPV 10.3 fL 11/06/2019 05:53 EDT RDW 14.3 % 11/06/2019 05:53 EDT Neut % 66.2 % 11/06/2019 05:53 EDT Neut # 4.75 K/uL 11/06/2019 05:53 EDT Lymph % 18.5 % (Low) 11/06/2019 05:53 EDT Lymph # 1.33 x10(3)/uL 11/06/2019 05:53 EDT [place] % 13.8 % (High) 11/06/2019 05:53 EDT [place] # 0.99 K/uL 11/06/2019 05:53 EDT Eos % 0.3 % 11/06/2019 05:53 EDT Eos # 0.02 x10(3)/uL 11/06/2019 05:53 EDT Baso % 0.4 % 11/06/2019 05:53 EDT Baso # 0.03 x10(3)/uL 11/06/2019 05:53 EDT Slide Review No 11/06/2019 05:53 EDT IG# 0.06 x10(3)/uL (High) 11/06/2019 05:53 EDT IG% 0.80 % (High) 11/06/2019 05:53 EDT TSH 0.642 mcInt Units/mL 11/06/2019 13:23 EDT FT4 1.17 ng/dL 11/06/2019 13:23 EDT documented in this encounter Plan of Treatment Not on file documented as of this encounter Visit Diagnoses Not on filedocumented in this encounter
--- OUTSIDE RECORDS SUMMARY | 2025-01-27 13:10 | XMS_ITS | Encounter Summary ---
Author Organization [employer] ([place], [place], [place], [place]) Address [address] [place] [address] Care Team Providers Care Poke In Name Role Phone Unavailable Primary Care Provider Unavailabl e Encounter Details Date Type Department Care Team (Late st Contact Info) Description 12/22/2018 Transcribed Document [facility] Neurology - [address] [facility] [address] [place] [id number] Mark Akers MD [address] [place] [address] Social History Tobacco Use Types Packs/Day Years Used Date Smoking Tobacco: Never Assessed Sex and Gender Information Value Date Recorded Sex Assigned at Not on file Legal Sex Male 2:38 PM CDT Gender Identity Not on file Sexual Orientation Not on file documented as of this encounter Miscellaneous Notes * Cerner Conversion Note - Mark Akers MD - 12/22/2018 6:50 PM EDT DATE OF PROCEDURE:12/22/2018 PRIMARY CARE PHYSICIAN: Dr. Faustino Jones PREOPERATIVE DIAGNOSIS(ES): T10 through S1 instability, scoliosis and stenosis. POSTOPERATIVE DIAGNOSIS(ES): T10 through S1 instability, scoliosis and stenosis. INDICATION OF PROCEDURE: Mechanical back pain and radicular pain, unresponsive to conservative management. PROCEDURE: 1. L2-3, L3-4, L4-5, L5-S1 laminectomy. 2. L2-3, L3-4 and L5-S1 posterior lumbar interbody fusion. 3. Bilateral iliac bolt placement. 4. T10 through iliac posterior instrumentation. 5. T10 through S1 posterior lateral fusion. 6. Intraoperative CT scan with stereotactic navigation using the y prime. SURGEON: Mark Akers MD PILE FABRIC KNITTER: Bing Colon TYPE OF ANESTHESIA: GEA. DESCRIPTION OF PROCEDURE IN DETAIL: Once consent was noted to be on chart, Mr. Cuevas was taken to the operating room. He was anesthetized and placed into the prone position on a Sam spine frame. All pressure points were carefully inspected and padded. Preoperative antibiotics were given. A time-out was called. A low-dose CT scan was performed to plan the skin incision as well as place two Steinmann pins into the right iliac crest. A two pin fixator was placed on these pins and a reference array for further stereotactic navigation. A 10 blade was used to make an incision from T10-L2. Bovie electrocautery was used to dissect down to into the lumbosacral fascia. A subperiosteal dissection was performed. Retractors were placed. A repeat CT scan at 50% strength was performed from T10 to the iliac. The initials scan was done at 15%, and again, this scan done at 50%. Using the CT information along with stereotactic navigation, pedicle screws were placed bilaterally at T10 through S1 iliac bolts were placed in an S2 to iliac trajectory. With all instrument the [email or web address] system was utilized. With all screws in place, a repeat CT scan confirmed cord placement. This last CT scan was done at 50%. A laminectomy was then performed at L2-3, L3-4, L4-5 and L5-S1 fully decompressing the descending L5 and exiting nerve roots. Based on the CT and MRI information interbody spacers were placed at L2-3, L3-4 and L5-S1 completing a posterior lumbar interbody fusion at these levels. Posterior lateral bone was then decorticated from T10 to sacrum. Additional allograft and autograft was placed posterolaterally for a posterior lateral fusion. The autograft was recycled lamina and spinous process. The carbon fiber spacer was placed at L2-3, L3-4 and L5-S1 were also packed with allograft and autograft. Meticulous hemostasis was obtained. No CSF was visualized throughout this procedure. A jim was bent to contour to the polyaxial heads from T10-L2. Set screws were placed and torqued to factory specifications. A EILEEN drain was left into the epidural space. Vancomycin was placed in the wound in order to try to prevent an infection. One Vicryl reapproximated the paraspinous muscles and fascia. 2-0 Vicryl closed space and closed the skin subcuticularly. The skin was stapled. Bacitracin and Covaderm was applied. Bing Colon assisted throughout the case and helped performing the closure. SPECIMEN SENT: None. ESTIMATED BLOOD LOSS: 500 mL. DRAINS: Sam-Burger. COMPLICATIONS: None. Mark Akers M.D. Dict: 12/22/2018 17:50:40 Trans: 12/22/2018 21:59:09 CC1: Mark Akers M.D. CC2: Dr. Faustino Jones; [address] , [facility], [address], [place] [address] documented in this encounter Plan of Treatment Not on file documented as of this encounter Visit Diagnoses Not on filedocumented in this encounter
--- OUTSIDE RECORDS SUMMARY | 2025-01-27 13:10 | XMS_ITS | Encounter Summary ---
Author Organization [employer] ([place], [place], [place], [place]) Address [address] [place] [address] Care Team Providers Care Head Cleaning Porter Name Role Phone Unavailable Primary Care Provider Unavailabl e Encounter Details Date Type Department Care Team (Late st Contact Info) Description 11/06/2019 Transcribed Document [facility] [place] [address] [place] [address] ProviderAgnieszka MD [address] [place], [place] [id number] Social History Tobacco Use Types Packs/Day Years Used Date Smoking Tobacco: Never Assessed Sex and Gender Information Value Date Recorded Sex Assigned at Not on file Legal Sex Male 2:38 PM CDT Gender Identity Not on file Sexual Orientation Not on file documented as of this encounter Miscellaneous Notes * Cerner Conversion Note - Historical ProviderMD - 11/06/2019 1:02 PM CDT [facility] Main OR PACU Summary Primary Physician: HEIDE KAT MD-U Finalized Date/Time: 11/06/19 15:35:13 Pt. Name: SIMBA MAYEN JR/Sex: 1950 Male Med Rec #: [id number] Physician: LORENA SAGASTUME MD-INT Financial #: [id number] Pt. Type: I Room/Bed: [facility]/ Admit/Disch: 11/02/19 02:59:00 - Institution: [facility] Main OR PACU I Case Times Entry 1 In PACU I 11/06/19 14:45:00 Ready for PACU 11/06/19 15:20:00 Discharge Discharge from PACU 11/06/19 15:20:00 I Last Modified By: MOE PAIGE RN 11/06/19 15:34:[address] [facility] Main OR PACU I Case Times Audit 11/06/19 15:34:56 Patch Washer: KURTIS Modifier: KURTIS <+> 1 Ready for PACU Discharge <+> 1 Discharge from PACU I [facility] Main OR PACU Acuity Entry 1 Start Time 11/06/19 14:45:00 Stop Time 11/06/19 15:20:00 Acuity Level [facility] PACU Acuity I Last Modified By: MOE PAIGE RN 11/06/19 15:35:11 [facility] Main OR PACU Acuity Audit 11/06/19 15:35:11 Patch Washer: KURTIS Modifier: KURTIS <+> 1 Stop Time Finalized By: MOE PAIGE, RN Document Signatures Signed By: MOE PAIGE RN 11/06/19 15:35 Electronically signed by [facility] Conversion Master At [employer] Cerner at 11/12/2022 9:29 PM CDT documented in this encounter Plan of Treatment Not on file documented as of this encounter Visit Diagnoses Not on filedocumented in this encounter
--- OUTSIDE RECORDS SUMMARY | 2025-01-27 13:10 | XMS_ITS | Encounter Summary ---
Author Organization [employer] ([place], [place], [place], [place]) Address [address] [place] [address] Care Team Providers Care Welding Specialist Name Role Phone Unavailable Primary Care Provider Unavailabl e Encounter Details Date Type Department Care Team (Late st Contact Info) Description 11/06/2019 Transcribed Document [facility] [place] [address] [place] [address] ProviderAgnieszka MD [address] [id number] Social History Tobacco Use Types Packs/Day Years Used Date Smoking Tobacco: Never Assessed Sex and Gender Information Value Date Recorded Sex Assigned at Not on file Legal Sex Male 2:38 PM CDT Gender Identity Not on file Sexual Orientation Not on file documented as of this encounter Miscellaneous Notes * Cerner Conversion Note - Historical ProviderMD - 11/06/2019 9:35 AM CDT Attempt to Treat, OT Entered On: 11/06/2019 10:17 EDT Performed On: 11/06/2019 9:35 EDT by MYRTLE PEREIRA OTR/Lc Attempt to Treat Unable to Treat Due To : Acuity of Illness, Patient on hold Inability to Treat Comment : Patient with no sensory/motor movement below waist this AM. RN states to hold evaluation until neurosurgery comes to examine patient. Will hold and attempt back as schedule permits. Notification : RNZee SARAH C., OTR/L - 11/06/2019 10:15 EDT documented in this encounter Plan of Treatment Not on file documented as of this encounter Visit Diagnoses Not on filedocumented in this encounter
--- OUTSIDE RECORDS SUMMARY | 2025-01-27 13:10 | XMS_ITS | Encounter Summary ---
Author Organization [employer] ([place], [place], [place], [place]) Address [address] [place] [address] Care Team Providers Care River Driver Name Role Phone Unavailable Primary Care Provider Unavailabl e Encounter Details Date Type Department Care Team (Late st Contact Info) Description 12/16/2018 Transcribed Document [facility] [place] Family Medicine [facility] [place] [address] ProviderAgnieszka MD [address] [place] [address] Social History Tobacco Use Types Packs/Day Years Used Date Smoking Tobacco: Never Assessed Sex and Gender Information Value Date Recorded Sex Assigned at Not on file Legal Sex Male 2:38 PM CDT Gender Identity Not on file Sexual Orientation Not on file documented as of this encounter Miscellaneous Notes * Cerner Conversion Note - Historical ProviderMD - 12/16/2018 11:33 AM CDT PAT Adult Entered On: 12/16/2018 11:47 EDT Performed On: 12/16/2018 11:33 EDT by MILTON GAMEZ RN Vital Measurements Temperature Source : Oral Temperature Mode : Fahrenheit Temperature, Fahrenheit : 98.0 Deg F Clinical Temperature, C : 36.7 Deg C Pulse Method : Non-Invasive BP Device Heart Rate, Apical : 91 bpm Pulse Rhythm : Regular Respiratory Rate : 18 Breaths/Min Systolic Blood Pressure : 111 mmHg Diastolic Blood Pressure : 76 mmHg MILTON GAMEZ RN - 12/16/2018 11:33 EDT Height and Weight, Clinical Dosing Height Source : Measured Height Entry Format : [place] Height, Feet : 5 ft(Converted to: 152 cm, 60 Inch) Height, Inches : 9 Inch(Converted to: 0 ft 9 Inch, 22.86 cm) Clinical Height : 175.26 cm Weight Source : Standing scale Weight Entry Format : Metric, kilograms Weight, Kilograms : 186 kg(Converted to: 410 lb 1 oz) Clinical Dosing Weight : 186 kg Body Surface Area (BSA) : 2.8 m2 Body Mass Index : 60.6 kg/m2 (>HHI) [place] Body Weight : 70 kg MILTON GAMEZ RN - 12/16/2018 11:33 EDT Health Histories Smoking Status : Never (less than 100 in lifetime; none in last 30 days) Smokeless Tobacco Status : Never MILTON GAMEZ RN - 12/16/2018 11:33 EDT Social History (As Of: 12/16/2018 11:47:01 EDT) Tobacco: Never (less than 100 in [...] 12/16/2018 11:33:06 EDT by MILTON GAMEZ RN) Infectious Disease History Fever/Chills Last 48 Hours : No GIANLUCA HERRON RN - 12/22/2018 10:26 EDT Infectious Disease History : Chicken pox/Shingles, Measles, Mumps Travel To Regions with Travel Advisories : No Travel Outside [place] Within Last 30 Days : No Contact With Traveler to Advisory Region : No Tuberculosis Symptoms : None MILTON GAMEZ RN - 12/16/2018 11:33 EDT Anesthesia/Transfusion History Family History of Anesthesia Reaction : Prior transfusion without reaction Blood Transfusion Acceptable to Patient : Yes Transfusion History : Prior anesthesia without reaction Family History of Anesthesia Reaction : None MILTON GAMEZ RN - 12/16/2018 11:33 EDT Functional Assessment Functional ADL Evaluation Index EBN Bathing : Independent (2) Dressing : Requires assistance (1) Toileting : Independent (2) Transferring Bed or Chair : Independent (2) Continence : Independent (2) Feeding : Independent (2) MILTON GAMEZ RN - 12/16/2018 11:33 EDT ADL Index Score : 11 MILTON GAMEZ RN - 12/16/2018 11:33 EDT Advance Directive Patient has Advance Directive *Q : No, patient refuses Advance Directive information MILTON GAMEZ RN - 12/16/2018 11:33 EDT Psychosocial History Do You Have a History of the Following? : Patient denies history Currently in Unsafe Situation : No Tried to Harm Yourself in the Past? : No Thoughts of Harming/Killing Yourself : No MILTON GAMEZ RN - 12/16/2018 11:33 EDT General Info Arrived From : Home Mode of Arrival on Unit : Ambulatory Want Family/Rep/Phys Notified of Admit : No Emergency Contact #1 : coleen Emergency Contact #1 Emergency Contact #1 Relationship : spouse Emergency Contact #2 : , Emergency Contact #2 Phone Number : , Emergency Contact #2 Relationship : , Primary Language : Guyanese Communication Barrier : None MILTON GAMEZ RN - 12/16/2018 11:33 EDT Osman Scale Osman Sensory Perception : No impairment Osman Moisture : Rarely moist Osman Activity : Walks occasionally Osman Mobility : Slightly limited Osman Nutrition : Adequate Osman Friction and Shear : No apparent problem Osman Score : 20 MILTON GAMEZ RN - 12/16/2018 11:33 EDT Sleep Apnea Risk Assmt BiPAP/CPAP Ordered for Home Use : Yes Hx of Obstructive Sleep Apnea Diagnosis : Yes BiPAP/CPAP Used at Home : No Reason BiPAP/CPAP Not Used at Home : uses off and on- pulls off in the night Age over 50 Years Old : Yes Gender Male : Yes MILTON GAMEZ RN - 12/16/2018 11:33 EDT documented in this encounter Plan of Treatment Not on file documented as of this encounter Visit Diagnoses Not on filedocumented in this encounter
--- OUTSIDE RECORDS SUMMARY | 2025-01-27 13:10 | XMS_ITS | Encounter Summary ---
Author Organization [employer] ([place], [place], [place], [place]) Address [address] [place] [address] Care Team Providers Care Physical Trainer Name Role Phone Unavailable Primary Care Provider Unavailabl e Encounter Details Date Type Department Care Team (Late st Contact Info) Description 12/16/2018 Transcribed Document [facility] [place] Family Medicine [facility] [place] [address] ProviderAgnieszka MD [address] [place] [address] Social History Tobacco Use Types Packs/Day Years Used Date Smoking Tobacco: Never Assessed Sex and Gender Information Value Date Recorded Sex Assigned at Not on file Legal Sex Male 2:38 PM CDT Gender Identity Not on file Sexual Orientation Not on file documented as of this encounter Miscellaneous Notes * Cerner Conversion Note - Historical ProviderMD - 12/16/2018 12:13 PM CDT PAT Adult Entered On: 12/16/2018 12:13 EDT Performed On: 12/16/2018 12:13 EDT by MILTON GAMEZ RN Height and Weight, Clinical Dosing Height Source : Measured Height Entry Format : [place] Height, Feet : 5 ft(Converted to: 152 cm, 60 Inch) Height, Inches : 9 Inch(Converted to: 0 ft 9 Inch, 22.86 cm) Clinical Height : 175.26 cm Weight Source : Standing scale Weight Entry Format : [place] Clinical Dosing Weight : 84.55 kg Weight, Pounds : 186 lb Body Surface Area (BSA) : 2 m2 Body Mass Index : 27.5 kg/m2 (HI) [place] Body Weight : 70 kg MILTON GAMEZ RN - 12/16/2018 12:13 EDT documented in this encounter Plan of Treatment Not on file documented as of this encounter Visit Diagnoses Not on filedocumented in this encounter
--- OUTSIDE RECORDS SUMMARY | 2025-01-27 13:10 | XMS_ITS | Encounter Summary ---
Author Organization [employer] ([place], [place], [place], [place]) Address [address] [place] [address] Care Team Providers Care Typewriters Functional Tester Name Role Phone Unavailable Primary Care Provider Unavailabl e Encounter Details Date Type Department Care Team (Late st Contact Info) Description 11/06/2019 Transcribed Document [facility] [place] Family Medicine Counts include 234 beds at the [facility] [place] [address] ProviderAgnieszka MD [address] [place], [place] [id number] Social History Tobacco Use Types Packs/Day Years Used Date Smoking Tobacco: Never Assessed Sex and Gender Information Value Date Recorded Sex Assigned at Not on file Legal Sex Male 2:38 PM CDT Gender Identity Not on file Sexual Orientation Not on file documented as of this encounter Miscellaneous Notes * Cerner Conversion Note - Historical ProviderMD - 11/06/2019 4:19 PM CDT Therapy Screen, PT Entered On: 11/06/2019 16:20 EDT Performed On: 11/06/2019 16:19 EDT by STORMY POPE PT Therapy Screen, PT Medical Chart Reviewed : Yes Person Providing Information : Nurse Screen Completed : Yes Recommendation for Evaluation, PT : Physical Therapy Recommendations Upon Discharge : Inpatient rehab Additional Therapy Screen Comment : PT was to do re-eval today s/p laminectomy. Pt found to have no sensation from knees distally. Dr. Akers had MRI done which revealed spinal cord compression and pt was taken to OR emergently for decompression. PT to await these post op orders. STORMY POPE, PT - 11/06/2019 16:19 EDT Electronically signed by [facility] Conversion Engineering Operations Leader Evelio at 11/12/2022 9:39 PM CDT documented in this encounter Plan of Treatment Not on file documented as of this encounter Visit Diagnoses Not on filedocumented in this encounter
--- OUTSIDE RECORDS SUMMARY | 2025-01-27 13:10 | XMS_ITS | Encounter Summary ---
Author Organization [employer] ([place], [place], [place], [place]) Address [address] [place] [address] Care Team Providers Care Dairy Associate Name Role Phone Unavailable Primary Care Provider Unavailabl e Encounter Details Date Type Department Care Team (Late st Contact Info) Description 11/06/2019 Transcribed Document [facility] [place] [address] [place] [address] ProviderAgnieszka MD [address] [place], [place] [id number] Social History Tobacco Use Types Packs/Day Years Used Date Smoking Tobacco: Never Assessed Sex and Gender Information Value Date Recorded Sex Assigned at Not on file Legal Sex Male 2:38 PM CDT Gender Identity Not on file Sexual Orientation Not on file documented as of this encounter Miscellaneous Notes * Cerner Conversion Note - Historical ProviderMD - 11/06/2019 5:00 PM CDT Chart Check - Review Order Profile Entered On: 11/06/2019 16:24 EDT Performed On: 11/06/2019 17:00 EDT by Zee Taylor RN Chart Check Powerplans Initiated/Discontinued as Appropriate : Yes All Active Orders Reviewed : Yes Zee Taylor RN - 11/06/2019 16:24 EDT documented in this encounter Plan of Treatment Not on file documented as of this encounter Visit Diagnoses Not on filedocumented in this encounter
[2025-01-27] MEDS: VEDOLIZUMAB 300 MG in 0.9 % SODIUM CHLORIDE 250 ML 500 MG IV (13:29)
[2025-01-27 13:35] VITALS: BP 130/71; PULSE 76; RESP 18; TEMP 36.6; O2SAT 99
[2025-01-27 14:10] VITALS: BP 145/84; PULSE 77; RESP 18; O2SAT 98
== END 2025-01-27 14:15 | disposition home or self-care (01) ==
LOC: INF 13:06
PROVIDERS: PCP Family Medicine; Visit Provider Physician Assistant
DX: K51.90 Ulcerative colitis, unspecified, without complications (principal)
CPT/HCPCS: 96413; J3380; J7050

== ENCOUNTER 2025-02-21 21:00 | Emergency (ER) | payer MEDICARE, OTHER, SELFPAY ==
--- NOTE | 2025-02-21 21:16 | ED_ITS ---
Discharge Plan Disposition Patient Disposition: Home, Self-Care Condition: Good Prescriptions Prescriptions: No Action acetaminophen 325 mg tablet 325 mg PO QID PRN (Reason: pain) apixaban 2.5 mg tablet 2.5 mg PO BID omeprazole 20 mg capsule,delayed release(DR/EC) 20 mg PO DAILY Patient Comments: TAKE 1 CAPSULE BY MOUTH EVERY DAY FOR STOMACH ACID OR REFLUX pimavanserin 34 mg capsule 34 mg PO DAILY MDD 34 mg Qty: 90 3RF Rx Instructions: 1 tab po daily at 4:00 PM. Take with food melatonin 5 mg capsule 10 mg PO QHS MDD 10 mg Qty: 90 3RF levetiracetam [Keppra] 500 mg tablet 1,500 mg PO BID MDD 3000 Qty: 540 3RF carbidopa-levodopa 25-100 mg tablet 2 tab PO QID Qty: 720 3RF baclofen 10 mg tablet 20 mg PO TID MDD 60 mg Qty: 540 3RF Rx Instructions: 20 mg p.o. 3 times daily clonazepam 0.5 mg tablet 0.25 mg PO HS 30 Days Qty: 15 5RF Rx Instructions: administer 60 minutes before bedtime cholecalciferol (vitamin D3) 125 mcg (5,000 unit) tablet 125 mcg PO DAILY multivitamin Tablet 1 tab PO DAILY fluoxetine 20 MG capsule 20 mg PO DAILY amlodipine 5 MG tablet 5 mg PO DAILY Lactobac comb [id number] 1 EACH capsule 1 each PO DAILY bisacodyl 10 MG suppository 10 mg RC DAILYP PRN (Reason: Constipation) polyethylene glycol 3350 17 gram powder in packet 17 g PO DAILY Referrals Follow up/Referrals: Rosa Jones MD [Primary Care Provider, Medical] - See instructions Activity Restrictions/Add. Instructions Additional Instructions/Restrictions: Please return to the emergency department with any worsening signs or symptoms, or if you need assistance removing the Ovalle catheter. Lease follow-up with your PCP and urologist in the upcoming days/weeks. Clinical Impressions Clinical Impression: Encounter for Ovalle catheter replacement Print Language Print Language: Kuwaiti Discharge ED Provider: Kj Oh General Adult HPI <EFREN Moran - Last Filed: 02/21/25 21:33> General Chief complaint: Urogenital-Male Stated complaint: Needs self cathed,pt is out of catheters Time Seen by Provider: 02/21/25 21:05 Mode of Arrival: Wheelchair Source of Information: Patient and Spouse Limitations: No Limitations History of Present Illness HPI narrative: 74-year-old male presents emergency department accompanied by his in need of self catheters , patient is a paraplegic wheelchair-bound, has been for the last 4 years due to spinal compression/spinal myelopathy, patient's self caths , the patient daily, for neurogenic bladder, using home health supplies in a sterile fashion, however patient's supply of self catheterizations is delayed in the mail , and will not be here until Friday according to the patient and at the bedside. She denies any fever chills chest pain shortness of breath no nausea no vomiting no urinary type symptomatology no abdominal pain, other past medical history is consistent with SAM, Parkinson's disease, BPH, on anticoagulation therapy for DVT prophylaxis with Eliquis. Initial triage vitals unremarkable. Related Data Home Medications ?Medication ?Instructions ?Recorded ?Confirmed Lactobacillus comb 1 each PO DAILY Supplement 0 01/11/20 12/01/24 no.[id number] 300 million cell-250 mg capsule bisacodyl 10 mg rectal suppository 10 mg MS DAILYP PRN Constipation 01/11/20 12/01/24 acetaminophen 325 mg tablet 325 mg PO QID PRN pain 12/01/24 fluoxetine 20 mg capsule 20 mg PO DAILY Depression 12/01/24 amlodipine 5 mg tablet 5 mg PO DAILY blood pressure 01/09/21 12/01/24 cholecalciferol (vitamin D3) 125 125 mcg PO DAILY Supp lement 09/13/21 12/01/24 mcg (5,000 unit) tablet apixaban 2.5 mg tablet 2.5 mg PO BID Blood thinner 08/05/22 12/01/24 polyethylene glycol 3350 17 gram 17 g PO DAILY bowels 11/27/22 12/01/24 oral powder packet multivitamin 1 tab PO DAILY 12/09/2302/18 omeprazole 20 mg capsule,delayed 20 mg PO DAILY 12/01/24 release Previous Rx's ?Medication ?Instructions ?Recorded baclofen 10 mg tablet 20 mg (2 x 10 mg) PO TID Myelopathy, spasticity #540 tabs carbidopa 25 mg-levodopa 100 mg 2 tab PO QID PARKINSON S DISEASE 11/22/24 tablet #720 tabs clonazepam 0.5 mg tablet 0.25 mg (1/2 x 0.5 mg) PO HS RBD 11/22/24 30 days #15 tabs levetiracetam 500 mg tablet 1,500 mg (3 x 500 mg) PO B ID 11/22/24 (Keppra) Myoclonus #540 tabs melatonin 5 mg capsule 10 mg (2 x 5 mg) PO QHS inso mnia 11/22/24 #90 caps pimavanserin 34 mg capsule 34 mg PO DAILY parkinson's, 11/22/24 hallucinations #90 caps Allergies Allergy/AdvReac Type Severity Reaction Status Date / Time No Known Allergies Allergy Verified 11/22/24 15:57 [facility] <EFREN Moran - Last Filed: 02/21/25 21:33> [facility] Disclaimer: The information contained in this section may have been updated after the patient was seen, as this information can be updated by other users. Medical History HTN (hypertension) UTI (urinary tract infection) Enlarged prostate GERD (gastroesophageal reflux disease) Gastric ulcer Anemia Ulcerative (chronic) enterocolitis Parkinsons disease Surgical History H/O colonoscopy Previous back surgery Family History Other Inguinal hernia Leukemia Social History Smoking Status: Never smoker second hand exposure: No alcohol intake: never substance use type: denies use current occupational status: retired and disabled Travel in the last 8 weeks?: None household members: spouse housing: house marital status: education level: high school current occupational exposures/hazards: Yes caffeine: Yes Have you lived/traveled outside US in past 30 days?: No Contact w/someone who lives/traveled outside US past 30 days?: No Exposure to someone with infectious disease in past 14 days?: No Do you have a fever (greater than 100.4 F or 38 C)?: No Have you tested positive for COVID-19?: No Exposed to someone with COVID-19 in past 14 days?: No Do you have a sore throat?: No Do you have a cough?: No Do you have any weakness?: No Do you have any diarrhea?: No Are you experiencing any unusual bleeding?: No Do you have any muscle aches/pain?: No Do you have any abdominal pain?: No Are you experiencing loss of taste or smell?: No Other Medical History Have you received the Flu Vaccine for this season: No Have you received the Pneumonia Vaccine: Yes <EFREN Moran - Last Filed: 02/21/25 21:33> ROS Obtained: Yes All systems reviewed & no additional complaints except as documented Physical Exam <EFREN Moran - Last Filed: 02/21/25 21:33> General General appearance: alert and in no apparent distress Head Head exam: atraumatic and normocephalic Eye Eye exam: Present PERRL and EOMI ENT ENT exam: Present mucous membranes moist Neck Neck exam: Present normal inspection Chest Chest inspection: Present normal inspection and symmetric chest wall rise Respiratory Respiratory exam: Present normal lung sounds bilaterally; Absent respiratory distress Cardiovascular Cardiovascular exam: Present regular rate and normal rhythm Abdominal Exam Abdominal exam: Present soft; Absent tenderness, guarding or rebound Extremities Exam Extremities exam: Present normal inspection Neurological Exam Neurological exam: Present alert, oriented X3 and other (Paraplegia, bilateral lower extremities, otherwise moves upper extremities to command, no focal neurological deficit) Psychiatric Psychiatric exam: Present normal affect Skin Skin exam: Present warm and dry Medical Decision Making <EFREN Moran - Last Filed: 02/21/25 21:33> Medical Records Medical records reviewed: Yes I reviewed the patient's medical records. Screening: Per USPSTF and CDC recommendations, given the prevalence of disease in our region, it is our hospital?s policy to screen for HIV and viral Hepatitis for all patients aged 18 and over and those with ongoing risk factors. Bereket Inquiry Pt receiving controlled substance: No Bereket was queried for this patient: No Vital Signs: 02/21/25 21:26 Temperature 97.2 F L Temperature Source Oral Pulse Rate [Radial] 84 Respiratory Rate 16 Blood Pressure [Right Arm] 141/88 H Blood Pressure Mean [Right Arm] 105 Blood Pressure Position [Right Arm] Sitting 02 Sat by Pulse Oximetry 100 Oxygen Delivery Method Room Air Medical Decision Narrative: 74-year-old male presents the emergency department with need for self- catheterization, differential diagnose include but not limited to, neurogenic bl adder, urinary retention, among others. I discussed this patient's case with the attending physician Dr. Oh Unfortunately, we do not have the correct size catheter for the patient here in order for him to be sent home with self-catheterization/catheters. Patient utilizes a 14 [place], unfortunately we have this available and a Ovalle catheter but not a self-catheterization that would be amicable to send the patient and family home with. Discussed the potential for placing a indwelling Ovalle catheter here in the emergency department until the patient can/receive his self catheterizations at his home. Patient and family member at the bedside voiced understanding and agreement with the current treatment plan to place Ovalle catheter here in the emergency department. Detailed instructions of how to remove Ovalle catheter was given to the at the bedside, she voiced understanding and acknowledged in agreement. If for some reason the patient's spouse is unable to remove Ovalle catheter, patient can return to the emergency department for discontinuation of the Ovalle catheter once patient has his self- catheterization supplies. Patient was given strict ED return precautions, pat ient will follow-up with PCP and other providers in the upcoming days/weeks. Will not need urinalysis with no acute symptomatology at this time, patient and family voiced understanding and agreed with current treatment plan/discharge plan. <Kj Oh MD - Last Filed: 02/21/25 21:33> Vital Signs: 02/21/25 21:26 Temperature 97.2 F L Temperature Source Oral Pulse Rate [Radial] 84 Respiratory Rate 16 Blood Pressure [Right Arm] 141/88 H Blood Pressure Mean [Right Arm] 105 Blood Pressure Position [Right Arm] Sitting 02 Sat by Pulse Oximetry 100 Oxygen Delivery Method Room Air Medical Decision Narrative: 74-year-old male presents the emergency department with need for self- catheterization, differential diagnose include but not limited to, neurogenic bladder, urinary retention, among others. I discussed this patient's case with the attending physician Dr. Oh Unfortunately, we do not have the correct size catheter for the patient here in order for him to be sent home with self-catheterization/catheters. Patient utilizes a 14 [place], unfortunately we have this available and a Ovalle catheter but not a self-catheterization that would be amicable to send the patient and family home with. Discussed the potential for placing a indwelling Ovalle catheter here in the emergency department until the patient can/receive his self catheterizations at his home. Patient and family member at the bedside voiced understanding and agreement with the current treatment plan to place Ovalle catheter here in the emergency department. Detailed instructions of how to remove Ovalle catheter was given to the at the bedside, she voiced understanding and acknowledged in agreement. If for some reason the patient's spouse is unable to remove Ovalle catheter, patient can return to the emergency department for discontinuation of the Ovalle catheter once patient has his self- catheterization supplies. Patient was given strict ED return precautions, patient will follow-up with PCP and other providers in the upcoming days/weeks. Will not need urinalysis with no acute symptomatology at this time, patient and family voiced understanding and agreed with current treatment plan/discharge plan. I was consulted by the CLINT, and we discussed the complexity of the problems being addressed. I approved the treatment and management plan for this patient's care in the emergency department, thus performing a substantive portion of the medical decision making. Kj Oh MD Critical Care <EFREN Moran - Last Filed: 02/21/25 21:33> Critical Care Time Critical Care Time: No
[2025-02-21 21:26] VITALS: BP 141/88; PULSE 84; RESP 16; TEMP 36.2; O2SAT 100; BMI 38.4
--- OUTSIDE RECORDS SUMMARY | 2025-02-21 21:26 | XMS_ITS | Continuity of Care Document ---
Author Name [facility] Organization [facility] Care Team Providers Care Resolution Agent Name Role Phone [facility] Unavailable Unavailable Medications Combined list of outpatient medications from Department of Defense and Veterans Affairs facilities.Medications provided include 1) outpatient medications from the last 15 months, and 2) patient-reported medications. Medication Details Route Status Patient Instructions Prescription Expires Prescription Number Last Dispense Date Ordering Provider Order Date Order Qty Source BACLOFEN (BACLOFEN), 10 MG, TABLET, ORAL, [employer] [facility] 100 ea. BOTTLE Cancele d [id number] : 2023 0 Pharmac y Data Transac tion Service Facilit y CLONAZEPAM (clonazepam ), 0.5 MG, TABLET, ORAL, [employer], 1000 ea. BOTTLE Cancele d [id number] : 2023 0 Pharmac y Data Transac tion Service Facilit y FLUOXETINE HCL (FLUOXETINE HCL), 20MG, CAPSULE, ORAL, [employer], 1000 ea. BOTTLE Cancele d [id number] : 2023 0 Pharmac y Data Transac tion Service Facilit y OMEPRAZOLE (omeprazole ), 20 MG, CAPSULE DR, ORAL, [employer], 1000 ea. BOTTLE Active [id number] 2023 90 Pharmac y Data Transac tion Service Facilit y Social History Combined list of available smoking, tobacco, and other social history from Department of Defense and Veterans Affairs facilities. Social History Type Response Date Comment Sour e This section is an empty social history section. [facility]
--- OUTSIDE RECORDS SUMMARY | 2025-02-21 21:26 | XMS_ITS | Clinical Summary ---
Author Organization [facility] Address [address] [place] [address] Phone Care Team Providers Care Inspector Final Assembly Electrical Name Role Phone Alyssa Otero MD [ ] Conditions or Problems Problem Name Problem Code Onset Date Status Entry Date Provider Comment Standard Description Annotate Decubitus ulcer 413284494 (SNOMED CT) 12/14 Active 12/14 Janae Pena Blanca Pressure ulcer Candidiasis, skin 31277949 (SNOMED CT) 12/14 Active 12/14 Janae Pena Blanca Candidiasis of skin Diarrhea, antibiotic associated 418132846 (SNOMED CT) 12/14 Active 12/14 Janae Pena Blanca Antibiotic-ass ociated diarrhea Abscess, epidural G06.1 (ICD-10-CM) 12/13 Active 12/13 Joslyn Tim 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, thoracic region M46.24 (ICD-10-CM) 12/13 Active 12/13 Joslyn Tim Osteomyelitis of vertebra, thoracic region Pseudomonas infection 97084666 (SNOMED CT) 12/13 Active 12/13 Joslyn Tim Bacterial infection caused by Pseudomonas Positive blood cultures 267436559 (SNOMED CT) 12/13 Active 12/13 Joslyn Tim Organism isolated by microbial culture Benign Essential Hypertension 9203957 (SNOMED CT) 12/13 Active 12/13 Joslyn Tim Benign essential hypertension 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, 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 (ICD-10-CM) 12/13 Active 12/13 Joslyn Tim Rheumatoid arthritis without rheumatoid factor, multiple sites RA with rheumatoid factor, multiple sites M05.79 (ICD-10-CM) 12/13 Active 12/13 Joslyn Dumont Rheumatoid arthritis with rheumatoid factor of multiple sites without organ or systems involvement Parkinson's disease 95533431 (SNOMED CT) 12/13 Active 12/13 Joslyn Dumont Parkinson's disease Medications Medication Instructions Start Date Stop Date Generic Name NDC Provider CEFEPIME HCL 2 GM INJECTION SOLUTION RECONSTITUTED 2 gms IV Q 12 hours/Bioscript s/Wedco 12/14 CEFEPIME HCL 29902740763 Janae Castaneda NYSTATIN POWD apply to groin rash bid NYSTATIN 48393989547 Alyssa Otero MD FLUCONAZOLE 200 MG TABS 1 tablet FLUCONAZOLE 46047489940 Alyssa Otero MD CEFEPIME HCL 2 GM INJECTION SOLUTION RECONSTITUTED 2 gms IV Q 12 hours/Bioscript s/Wedco 09/23 CEFEPIME HCL 17747914444 Monica Sepulveda RN SENNA 8.6 MG TABS Take one by mouth daily SENNOSIDES 97840684958 Eva Dodson MIRALAX ORAL PACKET 17 g daily POLYETHYLENE GLYCOL 3350 78168597630 Eva Dodson OXYCODONE HCL 5 MG CAPS Q6H/PRN OXYCODONE HCL 79618097019 Eva Dosdon OXYBUTYNIN CHLORIDE ER 5 MG [id number]-NLU Take by mouth twice a day OXYBUTYNIN CHLORIDE 25859109994 Eva Dodson MICONAZOLE NITRATE 2 % POWD applt twice daily MICONAZOLE NITRATE 78768995118 Eva Dodson CVS MELATONIN 5 MG TABS Take one by mouth daily MELATONIN 44564860361 Eva Dodson MEGESTROL ACETATE 40 MG/ML SUSP 10Milliliter* *OralTwoJeramy esPerDay MEGESTROL ACETATE 29915775249 Eva Dodson ANUCORT-HC 25 MG SUPP take as needed HYDROCORTISONE ACETATE 36530802043 Eva Dodson DIAZEPAM 2 MG TABS Take by mouth twice a day DIAZEPAM 58112776389 Eva Dodson VITAMIN D (CHOLECALCIFEROL ) 25 MCG (1000 UT) CAPS Take one by mouth daily CHOLECALCIFEROL 59281393839 Eva Dodson BISACODYL 10 MG SUPP once daily BISACODYL 87425332192 Eva Dodson BALSAM AMIE-CASTOR OIL OINT 1Application* *TopicalTwo TimesPerDay BALSAM AMIE-CASTOR OIL 14181376000 Eva Dodson BACLOFEN 10 MG TABS Take one by mouth four times daily, morning, noon, early evening and bedtime. BACLOFEN 00076553665 Eva Dodson AMANTADINE HCL 100 MG CAPS Take by mouth twice a day AMANTADINE HCL 04770462190 Eva Dodson ACETAMINOPHEN 325 MG TABS Q6H/PRN ACETAMINOPHEN 74076919823 Eva Dodson AMLODIPINE BESYLATE 10 MG TABS Take one by mouth daily AMLODIPINE BESYLATE 23220044792 Eva Dodson ACIDOPHILUS LACTOBACILLUS CAPS Take one by mouth daily LACTOBACILLUS 74203164764 Eva Dodson CARBIDOPA-LEVODO PA 25-100 MG TABS Take one by mouth four times daily, morning, noon, early evening and bedtime. CARBIDOPA-LEVODOP A 88921016155 Eva Dodson AZILECT 1 MG TABS Take one by mouth daily RASAGILINE MESYLATE 49249652369 Eva Dodson Medications Administered No information available. [...] medications (procedure) SMOK STATUS Never smoker Toba insurance account executive smoking status Plan of Care No information [...]
--- OUTSIDE RECORDS SUMMARY | 2025-02-21 21:27 | XMS_ITS | Encounter Summary ---
Author Organization [employer] ([place], [place], [place], [place]) Address [address] [place] [address] Care Team Providers Care Desktop Architect Name Role Phone Unavailable Primary Care Provider Unavailabl e Encounter Details Date Type Department Care Team (Late st Contact Info) Description 12/23/2018 Transcribed Document [facility] Family Medicine [address] [place] [address] ProviderAgnieszka MD [address] [place], [place] [id number] Social History Tobacco Use Types Packs/Day Years [...] On: 12/23/2018 13:23 EDT by MARTÍNEZ VALENZUELA RN-Bass String Winder Initial Assessment I Previously Documented Living Environment [...] Contact #2 Relationship : , MARTÍNEZ VALENZUELA RN-Bass String Winder - 12/23/2018 13:23 EDT Initial Assessment II Sensory and Motor Deficits : Other: Parkinson's Current Home Treatments and Equipment : None MARTÍNEZ VALENZUELA RN-Bass String Winder - 12/23/2018 13:23 EDT Discharge Needs I Anticipated Discharge Date : 12/24/2018 EDT Anticipated Discharge To, CM : Acute Care Facility, [facility] facility Current Home Treatment/Equipment : Current Home Treatment/Equipment No qualifying data available. MARTÍNEZ VALENZUELA RN-Bass String Winder - 12/23/2018 13:23 EDT Discharge Needs II Professional Skilled Services : Professional Skilled Services No qualifying data available. Needs Assistance with Transportation : Maybe MARTÍNEZ VALENZUELA RN-Bass String Winder - 12/23/2018 13:23 EDT Narrative Note Narrative Note : 68yo male pt s/p T10-S1 posterior lateral fusion, L2-S1 lami and PLIF with bilateral iliac bolts. PMH: Parkinson's. met withpt and family at bedside to discuss DCP. Pt ambulated 70ft with Ax2 this am with PT. has concerns regarding taking patient home. She requests rehab at [facility]. Referral sent and informed Colleene. CM will follow. MARTÍNEZ VALENZUELA RN-Bass String Winder - 12/23/2018 13:23 EDT documented in this encounter Plan of Treatment Not on file documented as of this encounter Visit Diagnoses Not on filedocumented in this encounter
--- OUTSIDE RECORDS SUMMARY | 2025-02-21 21:27 | XMS_ITS | Encounter Summary ---
Author Organization [employer] ([place], [place], [place], [place]) Address [address] [place] [address] Care Team Providers Care Electrical Power Engineer Name Role Phone Unavailable Primary Care Provider Unavailabl e Encounter Details Date Type Department Care Team (Late st Contact Info) Description 11/02/2019 Transcribed Document [facility] [place] [address] [place] [address] ProviderAgnieszka MD [address], [place] [address] Social History Tobacco Use Types Packs/Day Years [...] On: 11/02/2019 14:30 EDT by JESSICA ROSENBAUM OTR/L Attempt to Treat Inability to Treat Comment : N/A. Off floor for MRI. JESSICA ROSENBAUM OTR/Lc - 11/02/2019 14:49 EDT documented in this encounter Plan of Treatment Not on file documented as of this encounter Visit Diagnoses Not on filedocumented in this encounter
--- OUTSIDE RECORDS SUMMARY | 2025-02-21 21:27 | XMS_ITS | Encounter Summary ---
Author Organization [employer] ([place], [place], [place], [place]) Address [address] [place] [address] Care Team Providers Care Security Controls Assessor Name Role Phone Unavailable Primary Care Provider Unavailabl e Encounter Details Date Type Department Care Team (Late st Contact Info) Description 11/08/2019 Transcribed Document [facility] Neurology - [address] [facility] [address] [place] [address] Heide Akers MD [address] [place] [address] Social History Tobacco Use Types [...]
--- OUTSIDE RECORDS SUMMARY | 2025-02-21 21:27 | XMS_ITS | Encounter Summary ---
Author Organization [employer] ([place], [place], [place], [place]) Address [address] [place] [address] Care Team Providers Care Lombardi Developer Name Role Phone Unavailable Primary Care Provider Unavailabl e Encounter Details Date Type Department Care Team (Late st Contact Info) Description 11/08/2019 Transcribed Document [facility] Family Medicine [address] [place] [address] ProviderAgnieszka MD [address] [place], [place] [address] Social History Tobacco Use Types Packs/Day Years [...] is staying in room tonight with him. Nondenominational Preference : Sikh JEROME CONNELLY Chaplain - 11/08/2019 17:05 EDT documented in this encounter Plan of Treatment Not on file documented as of this encounter Visit Diagnoses Not on filedocumented in this encounter
--- OUTSIDE RECORDS SUMMARY | 2025-02-21 21:27 | XMS_ITS | Encounter Summary ---
Author Organization [employer] ([place], [place], [place], [place]) Address [address] [place] [address] Care Team Providers Care Labor Service Representative Name Role Phone Unavailable Primary Care Provider Unavailabl e Encounter Details Date Type Department Care Team (Late st Contact Info) Description 12/24/2018 Transcribed Document [facility] [place] [address] [place] [address] ProviderAgnieszka MD [address], [place] [id number] Social History Tobacco Use Types Packs/Day Years [...] these instructions at home: Medicines ??? Take guuo-ugc-fkyifab and prescription medicines only as told by [...] cannot use soap and water, use hand blend technician. ? Change your bandage as told by [...] your pee (urine) pale yellow. ? Take lfjv-wpr-dokmprm or prescription medicines. ? Eat foods that [...] 11/07/2011 Document Revised: 10/28/2017 Document Reviewed: 10/28/2017 [employer] Interactive Patient Education ? 2019 Bio. Infectious Disease Wound Infection A wound infection [...] at home: Medicines ??? Take or apply ulcp-quz-dfxxtpc and prescription medicines only as told by [...] cannot use soap and water, use hand blend technician. ? Change your bandage as told by [...] 04/22/2009 Document Revised: 12/19/2016 Document Reviewed: 01/01/2016 [employer]igo Interactive Patient Education ? 2019 [employer]. documented in this encounter Plan of Treatment Not on file documented as of this encounter Visit Diagnoses Not on filedocumented in this encounter
--- OUTSIDE RECORDS SUMMARY | 2025-02-21 21:27 | XMS_ITS | Encounter Summary ---
Author Organization [employer] ([place], [place], [place], [place]) Address [address] [place] [address] Care Team Providers Care Precision Machine Operator Name Role Phone Unavailable Primary Care Provider Unavailabl e Encounter Details Date Type Department Care Team (Late st Contact Info) Description 11/08/2019 Transcribed Document [facility] Family Medicine [facility] [place] [address] ProviderAgnieszka MD [address], [place] [phone] Social History Tobacco Use Types Packs/Day Years [...] 1950 Associated Diagnoses: None Author: BROOKS GORE, [facility] 69yoM with Low Back Pain - R/O [...]
--- OUTSIDE RECORDS SUMMARY | 2025-02-21 21:27 | XMS_ITS | Encounter Summary ---
Author Organization [employer] ([place], [place], [place], [place]) Address [address] [place] [address] Care Team Providers Care Elementary Reading Specialist Name Role Phone Unavailable Primary Care Provider Unavailabl e Encounter Details Date Type Department Care Team (Late st Contact Info) Description 11/02/2019 Transcribed Document [facility] [place] [address] [place] [address] ProviderAgnieszka MD [address], [place] [address] Social History Tobacco Use Types Packs/Day Years [...] of Event : Jovi (son) phone number: [phone] Dori Bah RN - 11/02/2019 3:19 EDT documented in this encounter Plan of Treatment Not on file documented as of this encounter Visit Diagnoses Not on filedocumented in this encounter
--- OUTSIDE RECORDS SUMMARY | 2025-02-21 21:27 | XMS_ITS | Encounter Summary ---
Author Organization [employer] ([place], [place], [place], [place]) Address [address] [place] [address] Care Team Providers Care Courtesy Bus Driver Name Role Phone Unavailable Primary Care Provider Unavailabl e Encounter Details Date Type Department Care Team (Late st Contact Info) Description 11/10/2019 Transcribed Document [facility] [place] [address] [place] [address] ProviderAgnieszka MD [address], [place] [phone] Social History Tobacco Use Types Packs/Day Years [...] : Pt discharging today and transferring to [place]/Spinal Unit. [facility] transporting pt at 1400. Will reach out to spouse to update. No additional needs noted to be addressed, will fax d/c summary when availabl e SAL BERRIOS RN-Care Management - 11/10/2019 11:14 EDT Electronically signed by Gay Centeno Conversion Instrument Technician Apprentice Cerner at 11/12/2022 9:44 PM CDT documented in this encounter Plan of Treatment Not on file documented as of this encounter Visit Diagnoses Not on filedocumented in this encounter
--- OUTSIDE RECORDS SUMMARY | 2025-02-21 21:27 | XMS_ITS | Encounter Summary ---
Author Organization [employer] ([place], [place], [place], [place]) Address [address] [place] [address] Care Team Providers Care Field Service Manager Name Role Phone Unavailable Primary Care Provider Unavailabl e Encounter Details Date Type Department Care Team (Late st Contact Info) Description 11/08/2019 Transcribed Document [facility] [place] Family Medicine [address] [place] [address] ProviderAgnieszka MD [address] [place], [place] [address] Social History Tobacco Use Types Packs/Day Years Used Date Smoking Tobacco: Never Assessed Sex and Gender Information Value Date Recorded Sex Assigned at Not on file Legal Sex Male 2:38 PM CDT Gender Identity Not on file Sexual Orientation Not on file documented as of this encounter Miscellaneous Notes * Cerner Conversion Note - Historical ProviderMD - 11/08/2019 2:00 AM CDT Government Affairs Fellow Details Entered On: 11/08/2019 5:11 EDT Performed [...]
--- OUTSIDE RECORDS SUMMARY | 2025-02-21 21:27 | XMS_ITS | Encounter Summary ---
Author Organization [employer] ([place], [place], [place], [place]) Address [address] [place] [address] Care Team Providers Care Batting Machine Operator Insulation Name Role Phone Unavailable Primary Care Provider Unavailabl e Encounter Details Date Type Department Care Team (Late st Contact Info) Description 11/08/2019 Transcribed Document [facility] Family Medicine [place] [address] ProviderAgnieszka MD [address], [place] [phone] Social History Tobacco Use Types Packs/Day Years [...] 11/08/2019 14:04 EDT Electronically signed by Taryn [facility] Conversion Author Agent Cerner at 11/12/2022 9:35 PM CDT documented in this encounter Plan of Treatment Not on file documented as of this encounter Visit Diagnoses Not on filedocumented in this encounter
--- OUTSIDE RECORDS SUMMARY | 2025-02-21 21:27 | XMS_ITS | Encounter Summary ---
Author Organization [employer] ([place], [place], [place], [place]) Address [address] [place] [address] Care Team Providers Care Retail Client Solutions Consultant Name Role Phone Unavailable Primary Care Provider Unavailabl e Encounter Details Date Type Department Care Team (Late st Contact Info) Description 11/02/2019 Transcribed Document [facility] [place] Medicine [facility] [place] [address] ProviderAgnieszka MD [address], [place] [phone] Social History Tobacco Use Types Packs/Day Years [...]
--- OUTSIDE RECORDS SUMMARY | 2025-02-21 21:27 | XMS_ITS | Encounter Summary ---
Author Organization [employer] ([place], [place], [place], [place]) Address [address] [place] [address] Care Team Providers Care Physician Non Invasive Cardiologist Name Role Phone Unavailable Primary Care Provider Unavailabl e Encounter Details Date Type Department Care Team (Late st Contact Info) Description 11/02/2019 Transcribed Document [facility] [place] [facility] [place] [address] ProviderAgnieszka MD [address] [place], [place] [address] Social History Tobacco Use Types Packs/Day Years [...] EDT Pain Scale Intensity : 8 DUANE CHUN RN - 11/03/2019 17:32 EDT Image 4 - Images currently included in the form version of this document have not been included in the text rendition version of the form. documented in this encounter Plan of Treatment Not on file documented as of this encounter Visit Diagnoses Not on filedocumented in this encounter
--- OUTSIDE RECORDS SUMMARY | 2025-02-21 21:27 | XMS_ITS | Encounter Summary ---
Author Organization [employer] ([place], [place], [place], [place]) Address [address] [place] [address] Care Team Providers Care Cryptographic Vulnerability Analyst Name Role Phone Unavailable Primary Care Provider Unavailabl e Encounter Details Date Type Department Care Team (Late st Contact Info) Description 12/24/2018 Transcribed Document [facility] [place] [facility] [place] [address] ProviderAgnieszka MD [address], [place] [address] Social History Tobacco Use Types Packs/Day Years [...] On: 12/24/2018 15:22 EDT by MARTÍNEZ VALENZUELA RN-Electrical Assemblies SupervisorParcel Post Clerk Progress Note Discharge Arrangements : Patient Post-Acute [...] Post Acute Providers : Yes MARTÍNEZ VALENZUELA RN-Electrical Assemblies Supervisor - 12/24/2018 15:22 EDT Electronically signed by Taryn, [facility] Conversion Card Tender Cerner at 11/12/2022 9:41 PM CDT documented in this encounter Plan of Treatment Not on file documented as of this encounter Visit Diagnoses Not on filedocumented in this encounter
--- OUTSIDE RECORDS SUMMARY | 2025-02-21 21:27 | XMS_ITS | Encounter Summary ---
Author Organization [employer] ([place], [place], [place], [place]) Address [address] [place] [address] Care Team Providers Care Sewing Machine Mechanic Name Role Phone Unavailable Primary Care Provider Unavailabl e Encounter Details Date Type Department Care Team (Late st Contact Info) Description 12/24/2018 Transcribed Document [facility] [place] [address] [place] [address] ProviderAgnieszka MD [address] [place] [address] Social History Tobacco Use Types Packs/Day Years Used Date Smoking Tobacco: Never Assessed Sex and Gender Information Value Date Recorded Sex Assigned at Not on file Legal Sex Male 2:38 PM CDT Gender Identity Not on file Sexual Orientation Not on file documented as of this encounter Miscellaneous Notes * Cerner Conversion Note - Agnieszka ProviderMD - 12/24/2018 3:59 PM CDT [facility] [place] [id number] SIMBA MAYEN JR :1950 Visit Time:12/22/2018 Your Visit Summary Your Care Team Admitting Physician - HEIDE KAT MD-DIVYA Attending Physician - NORTH, HEIDE MORENO MD-DIVYA Primary Care Physician - NOAH NUNEZ (REF), -[facility] Referring Physician - HEIDE KAT MD-DIVYA Your [...] 11:30 AM EDT Comments Please go to [facility] at 10:45am for x-rays before appointment at 11:30am Where: [address] [place] [phone]- Neolane (1) Follow Up with HEIDE KAT When 01/04/2019 11:00 AM EDT Comments Appointment has been made Where: [address] [place] [address] [phone]- Neolane (1) Medications What How Much When Instructions [...] at home: Medicines ??? Take or apply rvsf-pbo-hreaemi and prescription medicines only as told by [...] cannot use soap and water, use hand fiscal officer. ? Change your bandage as told by [...] 04/22/2009 Document Revised: 12/19/2016 Document Reviewed: 01/01/2016 Else[employer] Interactive Patient Education ?? 2019 [employer] Inc. Spinal Fusion, Adult, Care After This sheet gives you information about how to care for yourself after your procedure. Your doctor may also give you more specific instructions. If you have problems or questions, contact your doctor. Follow these instructions at home: Medicines ??? Take vccl-ylg-rpsboyv and prescription medicines only as told by [...] cannot use soap and water, use hand fiscal officer. ? Change your bandage as told by [...] your pee (urine) pale yellow. ? Take hnha-bin-zhpdffy or prescription medicines. ? Eat foods that [...] 11/07/2011 Document Revised: 10/28/2017 Document Reviewed: 10/28/2017 [employer]birds Interactive Patient Education ?? 2019 [employer]. acetaminophen and oxycodone (a SEET a MIN [...] may report side effects to FDA at 3-383-NNI-2252. What other drugs will affect acetaminophen and [...] affect acetaminophen and oxycodone, including prescription and afrh-izt-lsiluva medicines, vitamins, and herbal products. Not all [...] to ensure that the information provided by [employer]. ('[employer]') is accurate, up-to-date, and complete, but no guarantee is made to that effect. Drug information contained herein may be time sensitive. [employer] information has been compiled for use by healthcare practitioners and consumers in the [place] and therefore [employer] does not warrant that uses outside of the [place] are appropriate, unless specifically indicated otherwise. [employer]'s drug information does not endorse drugs, diagnose patients or recommend therapy. [employer] drug information is an informational resource designed [...] effective or appropriate for any given patient. [employer] does not assume any responsibility for any aspect of healthcare administered with the aid of information [employer] provides. The information contained herein is not intended to cover all possible uses, directions, precautions, warnings, drug interactions, allergic reactions, or adverse effects. If you have questions about the drugs you are taking, check with your doctor, nurse or pharmacist. Copyright 4304-6044 [employer]. Version: 18.02. Revision Date: 06/24/2018. Emergency Awareness [...] Assistance with quitting is available by contacting 3-865-HXNYSocialGuideNOW. This is a free resource providing counseling, [...] Be sure to sign up for the [facility] patient portal, which gives you 17/02 access to your medical information ??? including these discharge instructions ??? using your computer, smartphone, or tablet. Just go to [employer] to get started. Questions? Call . Test [...] range between ( 0.0 and 7.0 ) [place] #: 0.81 K/uL -- Normal range between ( 0.16 and 1.00 ) Eos #: 0.03 x10(3)/uL -- Normal range between ( 0.00 and 0.80 ) [place] %: 9.9 % -- Normal range between [...] ) Urine Bilirubin Dipstick: Small Urine Specific [place]: >1.030 -- Normal range between ( 1.005 [...] was given the opportunity to ask questions. Patient/Master Police Detective Name: Patient/Master Police Detective Signature: Relationship to Patient: Clinician/Hospital Master Police Detective Signature: Date: documented in this encounter Plan of Treatment Not on file documented as of this encounter Visit Diagnoses Not on filedocumented in this encounter
--- OUTSIDE RECORDS SUMMARY | 2025-02-21 21:27 | XMS_ITS | Encounter Summary ---
Author Organization [employer] ([place], [place], [place], [place]) Address [address] [place] [address] Care Team Providers Care Loan Specialist Name Role Phone Unavailable Primary Care Provider Unavailabl e Encounter Details Date Type Department Care Team (Late st Contact Info) Description 11/02/2019 Transcribed Document [facility] [place] Family Medicine [facility] [place] [address] ProviderAgnieszka MD [address], [place] [address] Social History Tobacco Use Types Packs/Day Years [...] Oral, Daily, 30 Tab, 0 Refill(s) Imuran: [id number], every 8 weeks at hospital last dose [...] % 26.3 % Lymph # 2.29 x10(3)/uL [place] % 13.9 % HI [place] # 1.21 K/uL HI [place] % 0.1 [...] I discussed this case with Dr. Benitez, prevention specialist for neurosurgery, and he suggested that this might also be related to a fracture. Patient's symptoms did start acutely while attempting to do crunches. He has not reported any feelings of illness over the last 2 weeks as well. No history of IV drug abuse. Patient covered empirically with vancomycin and Zosyn. I discussed this case with Dr. Sagastume, hospitalist prevention specialist and patient will be admitted for further [...]
--- OUTSIDE RECORDS SUMMARY | 2025-02-21 21:27 | XMS_ITS | Encounter Summary ---
Author Organization [employer] ([place], [place], [place], [place]) Address [address] [place] [address] Care Team Providers Care Fructose Loader Name Role Phone Unavailable Primary Care Provider Unavailabl e Encounter Details Date Type Department Care Team (Late st Contact Info) Description 11/10/2019 Transcribed Document [facility] [place] Medicine [address] [place] [address] ProviderAgnieszka MD [address] [place], [place] [address] Social History Tobacco Use Types Packs/Day Years [...]
--- OUTSIDE RECORDS SUMMARY | 2025-02-21 21:27 | XMS_ITS | Encounter Summary ---
Author Organization [employer] ([place], [place], [place], [place]) Address [address] [place] [address] Care Team Providers Care Customer Insight Analyst Name Role Phone Unavailable Primary Care Provider Unavailabl e Encounter Details Date Type Department Care Team (Late st Contact Info) Description 11/08/2019 Transcribed Document [facility] [place] [facility] [place] [address] ProviderAgnieszka MD [address], [place] [id number] Social History Tobacco Use Types Packs/Day Years [...]
--- OUTSIDE RECORDS SUMMARY | 2025-02-21 21:27 | XMS_ITS | Encounter Summary ---
Author Organization [employer] ([place], [place], [place], [place]) Address [address] [place] [address] Care Team Providers Care Pipe Bender Name Role Phone Unavailable Primary Care Provider Unavailabl e Encounter Details Date Type Department Care Team (Late st Contact Info) Description 12/24/2018 Transcribed Document [facility] Neurology - [address] [facility] [address] [place] [address] Mark Akers MD [address] [place] [address] Social History Tobacco Use Types [...] hgb: 10.5 plts: 121 1. pod 2 [id number] fusion doing well. good response to surgery. rukhsana output low. -dc rukhsana -cont present care -rehab when bed avail 2. thrombocytopenia mild. likely dilutional. will monitor documented in this encounter Plan of Treatment Not on file documented as of this encounter Visit Diagnoses Not on filedocumented in this encounter
--- OUTSIDE RECORDS SUMMARY | 2025-02-21 21:27 | XMS_ITS | Encounter Summary ---
Author Organization [employer] ([place], [place], [place], [place]) Address [address] [place] [address] Care Team Providers Care Grinder Set Up Operator Universal Name Role Phone Unavailable Primary Care Provider Unavailabl e Encounter Details Date Type Department Care Team (Late st Contact Info) Description 11/11/2019 Transcribed Document [facility] [place] Medicine [facility] [place] [address] ProviderAgnieszka MD [address] [place], [place] [address] Social History Tobacco Use Types Packs/Day Years [...] mobilty and was non-ambulatory. He discharged to [facility]. LILA PIERCE, PT - 11/11/2019 8:07 EDT [...] LILA PIERCE, PT - 11/11/2019 8:07 EDT Pattern Mechanic Goals Mobility/Bed Mobility LTG PT Grid [...]
--- OUTSIDE RECORDS SUMMARY | 2025-02-21 21:27 | XMS_ITS | Encounter Summary ---
Author Organization [employer] ([place], [place], [place], [place]) Address [address] [place] [address] Care Team Providers Care Belt Changer Name Role Phone Unavailable Primary Care Provider Unavailabl e Encounter Details Date Type Department Care Team (Late st Contact Info) Description 11/02/2019 Transcribed Document [facility] [place] Family Medicine [address] [place] [address] ProviderAgnieszka MD [address] [place] [address] Social History Tobacco Use Types Packs/Day Years [...] On: 11/02/2019 7:20 EDT by Sue Beck [facility] Coord Phone Call for Consults Consult Phone Call/Page Attempt : First call Consult Reason : back osteomylitis Physician Requesting Consult : DONY NOONAN PA-C Physician Requested for Consult : NIC CEVALLOS MD-INF Provider Service Notified Name : Infectious Disease Date and Time Call Returned : 11/02/2019 9:00 EDT Sue Beck [facility] Coord - 11/02/2019 9:04 EDT documented in this encounter Plan of Treatment Not on file documented as of this encounter Visit Diagnoses Not on filedocumented in this encounter
--- OUTSIDE RECORDS SUMMARY | 2025-02-21 21:27 | XMS_ITS | Encounter Summary ---
Author Organization [employer] ([place], [place], [place], [place]) Address [address] [place] [address] Care Team Providers Care Night Time Babysitter Name Role Phone Unavailable Primary Care Provider Unavailabl e Encounter Details Date Type Department Care Team (Late st Contact Info) Description 11/02/2019 Transcribed Document [facility] [place] [address] [place] [address] ProviderAgnieszka MD [address] [place], [place] [address] Social History Tobacco Use Types Packs/Day Years Used Date Smoking Tobacco: Never Assessed Sex and Gender Information Value Date Recorded Sex Assigned at Not on file Legal Sex Male 2:38 PM CDT Gender Identity Not on file Sexual Orientation Not on file documented as of this encounter Miscellaneous Notes * Cerner Conversion Note - Historical ProviderMD - 11/02/2019 12:31 AM CDT [place] Suicide Severity Rating Scale (C-SSRS) Entered On: 11/02/2019 2:21 EDT Performed On: 11/02/2019 2:19 EDT by Teresa Mohamud Rn Mckenzie Suicide Severity Rating Scale (C-SSRS) CSSRS Past [...]
--- OUTSIDE RECORDS SUMMARY | 2025-02-21 21:27 | XMS_ITS | Encounter Summary ---
Author Organization [employer] ([place], [place], [place], [place]) Address [address] [place] [address] Care Team Providers Care Hoistman Name Role Phone Unavailable Primary Care Provider Unavailabl e Encounter Details Date Type Department Care Team (Late st Contact Info) Description 11/10/2019 Transcribed Document [facility] [place] Family Medicine [address] [place] [address] ProviderAgnieszka MD [address], [place] [id number] Social History Tobacco Use Types Packs/Day Years [...]
--- OUTSIDE RECORDS SUMMARY | 2025-02-21 21:27 | XMS_ITS | Encounter Summary ---
Author Organization [employer] ([place], [place], [place], [place]) Address [address] [place] [address] Care Team Providers Care Bond Trader Name Role Phone Unavailable Primary Care Provider Unavailabl e Encounter Details Date Type Department Care Team (Late st Contact Info) Description 11/10/2019 Transcribed Document [facility] [place] [facility] [address] ProviderAgnieszka MD [address] [place], [place] [address] Social History Tobacco Use Types Packs/Day Years [...] mL: 2 Gram, 200 mL/Hr, IV Piggyback, [id number] docusate sodium: 200 mg, Oral, BID heparin: [...] micro id prior to making plans for [facility] transfer -- probiotic ?Continue to follow cultures and sensitivity reports an just antibiotics accordingly ?Follow daily labs while in hospital and trend results Discussed at length with in room documented in this encounter Plan of Treatment Not on file documented as of this encounter Visit Diagnoses Not on filedocumented in this encounter
--- OUTSIDE RECORDS SUMMARY | 2025-02-21 21:27 | XMS_ITS | Clinical Summary ---
Author Organization [employer] ([place], [place], [place], [place]) Address [address] [place] [address] Care Team Providers Care In Store Banker Name Role Phone Unavailable Primary Care Provider [...]
--- OUTSIDE RECORDS SUMMARY | 2025-02-21 21:27 | XMS_ITS | Encounter Summary ---
Author Organization [employer] ([place], [place], [place], [place]) Address [address] [place] [address] Care Team Providers Care Customs And Border Protection Officer Name Role Phone Unavailable Primary Care Provider Unavailabl e Encounter Details Date Type Department Care Team (Late st Contact Info) Description 11/10/2019 Transcribed Document [facility] [place] Family Medicine [facility] [address] ProviderAgnieszka MD [address] [place], [place] [address] Social History Tobacco Use Types Packs/Day Years [...] Disposition, General : Discharge Discharge To : Group Home unit/facility Name of Receiving Facility/Provider : [facility] Mode Of Departure, General Discharge : Ambulance/ALS Accompanied By, Discharge : track laborer IV Discontinued : Not applicable IV Therapy Comment : discharged with PICC for group home antibiotics until January 02 Personal Belongings With Patient : Yes Pt's Own Supply of Medications Returned : No patient supply of medications to return Prescriptions Given to Patient : Yes (Comment: sent with packet to [facility] [Dudley Stuart RN-TRAVELER - 11/10/2019 13:34 EDT] ) Medications Given to Patient : No Discharge Instructions Reviewed With, Opportunity For Questions Given : Other: [facility] staff Patient Education Completed : Yes Number of Prescriptions Given : 3 Teaching Method : Explanation Teaching Evaluation : Verbalizes understanding Education Comment : Advised on plan of care and position changes Dudley Stuart RN-TRAVELER - 11/10/2019 13:34 EDT Electronically signed by Taryn [facility] Conversion Hand Tool Lapper Cerner at 11/12/2022 9:39 PM CDT documented in this encounter Plan of Treatment Not on file documented as of this encounter Visit Diagnoses Not on filedocumented in this encounter
--- OUTSIDE RECORDS SUMMARY | 2025-02-21 21:27 | XMS_ITS | Encounter Summary ---
Author Organization [employer] ([place], [place], [place], [place]) Address [address] [place] [address] Care Team Providers Care Softball Core Molder Name Role Phone Unavailable Primary Care Provider Unavailabl e Encounter Details Date Type Department Care Team (Late st Contact Info) Description 12/24/2018 Transcribed Document [facility] [place] Family Medicine [facility] [place] [address] ProviderAgnieszka MD [address] [place] [address] Social History Tobacco Use Types [...] On: 12/24/2018 18:45 EDT by ADALI NAIR manager telemetry Documentation Discharge Date/Time : 12/24/2018 16:25 EDT [...]
--- OUTSIDE RECORDS SUMMARY | 2025-02-21 21:27 | XMS_ITS | Encounter Summary ---
Author Organization [employer] ([place], [place], [place], [place]) Address [address] [place] [address] Care Team Providers Care Police Patrol Lieutenant Name Role Phone Unavailable Primary Care Provider Unavailabl e Encounter Details Date Type Department Care Team (Late st Contact Info) Description 11/08/2019 Transcribed Document [facility] [place] [address] [place] [address] ProviderAgnieszka MD [address] [place] [address] Social History Tobacco Use Types [...] MARSHA JOSE OTR/Lc - 11/09/2019 10:54 EDT Brand Protection Manager Goals, OT Grooming LTG Grid Goal #1 [...]
--- OUTSIDE RECORDS SUMMARY | 2025-02-21 21:27 | XMS_ITS | Encounter Summary ---
Author Organization [employer] ([place], [place], [place], [place]) Address [address] [place] [address] Care Team Providers Care Customer Sales Service Manager Name Role Phone Unavailable Primary Care Provider Unavailabl e Encounter Details Date Type Department Care Team (Late st Contact Info) Description 11/10/2019 Transcribed Document [facility] [place] [facility] [place] [address] ProviderAgnieszka MD [address], [place] [id number] Social History Tobacco Use Types Packs/Day Years [...] blood flow. ??? 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 ??? Have poor control of their bladder [...] health care provider. General instructions ??? Take vmlm-swr-czzjfqz and prescription medicines only as told by [...] 08/21/2005 Document Revised: 04/06/2019 Document Reviewed: 04/06/2019 [employer] Patient Education ? 2019 [employer] Orthopedics Acute Back Pain, Adult Acute [...] Managing pain, stiffness, and swelling ??? Take ocld-ygy-wzofzev and prescription medicines only as told by [...] day. ??? Do not sit, drive, or finisher cold rolling one place for more than 30 minutes [...] less stress on your back. ??? Take hucw-jcx-jbaqmis and prescription medicines and apply heat or ice as directed by your health care provider. This information is not intended to replace advice given to you by your health care provider. Make sure you discuss any questions you have with your health care provider. Document Released: 07/14/2006 Document Revised: 02/18/2019 Document Reviewed: 02/25/2018 [employer] Patient Education ? 2019 [employer] documented in this encounter Plan of Treatment Not on file documented as of this encounter Visit Diagnoses Not on filedocumented in this encounter
--- OUTSIDE RECORDS SUMMARY | 2025-02-21 21:27 | XMS_ITS | Encounter Summary ---
Author Organization [employer] ([place], [place], [place], [place]) Address [address] [place] [address] Care Team Providers Care Active Directory Specialist Name Role Phone Unavailable Primary Care Provider Unavailabl e Encounter Details Date Type Department Care Team (Late st Contact Info) Description 11/02/2019 Transcribed Document [facility] [place] [facility] [place] [address] ProviderAgnieszka MD [address] [place], [place] [address] Social History Tobacco Use Types Packs/Day Years [...] MiraLax: 17 Gram, Oral, Daily, PRN: Constipation [place] 5 mg-325 mg oral tablet: 1.5 Tab, [...] mL: 1,250 mg, 250 mL/Hr, IV Piggyback, [id number] Documented Medications Documented Azilect 1 mg oral tablet: 1 Tab, Oral, Daily, 30 Tab, 0 Refill(s) Remicade: 10 mg/kg, IntraVENous, [id number], for Ulcerative Colitis; Last dose: 09/29/2019, 0 [...] EDT Height Source Stated Height Entry Format [place] Height/Length, MARSHALLESE (ft) 5 ft Height/Length MARSHALLESE 9 Inch CLINICALHEIGHT 175.26 cm Arabi Body Weight 70 kg Weight Source Standing scale Weight Entry Format [place] Weight Prydeinig lb 178 lb Weight Prydeinig oz 6 oz CLINICALWEIGHT 81.08 kg Body Surface Area (BSA) 1.97 m2 Body Mass Index 26.4 kg/m2 HI 11/02/2019 0:47 EDT Height Source Stated Height Entry Format [place] Height/Length, MARSHALLESE (ft) 5 ft Height/Length MARSHALLESE 9 Inch CLINICALHEIGHT 175.26 cm Arabi Body Weight 69.73 kg Weight Source, ED Critical estimated dosing weight Weight Entry Format Flo Weight Prydeinig lb 205 lb CLINICALWEIGHT 93.18 kg Body [...] therapy -- probiotic Electronically signed by Taryn [facility] Conversion Regroover Cerner at 11/12/2022 9:34 PM CDT documented in this encounter Plan of Treatment Not on file documented as of this encounter Visit Diagnoses Not on filedocumented in this encounter
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
--- OUTSIDE RECORDS SUMMARY | 2025-02-21 21:27 | XMS_ITS | Encounter Summary ---
Author Organization [employer] ([place], [place], [place], [place]) Address [address] [place] [address] Care Team Providers Care Egg Packer Name Role Phone Unavailable Primary Care Provider Unavailabl e Encounter Details Date Type Department Care Team (Late st Contact Info) Description 12/24/2018 Transcribed Document [facility] Family Medicine [address] [place] [address] ProviderAgnieszka MD [address] [place], [place] [id number] Social History Tobacco Use Types Packs/Day Years [...] On: 12/24/2018 15:23 EDT by MARTÍNEZ VALENZUELA RN-Circuit Tester Final Discharge Planning Discharge Arrangements : Patient [...] : IRF -Inpatient Rehabilitation Facility-62 MARTÍNEZ VALENZUELA RN-Circuit Tester - 12/24/2018 15:23 EDT Final Narrative Note Final Narrative Note : Pt has bed on J[facility]IE at [facility] . Family will transport. D/W Kavya, Leroy, spouse, pt, and bedside RN Malka. MARTÍNEZ VALENZUELA RN-Circuit Tester - 12/24/2018 15:23 EDT documented in this encounter Plan of Treatment Not on file documented as of this encounter Visit Diagnoses Not on filedocumented in this encounter
--- OUTSIDE RECORDS SUMMARY | 2025-02-21 21:27 | XMS_ITS | Encounter Summary ---
Author Organization [employer] ([place], [place], [place], [place]) Address [address] [place] [address] Care Team Providers Care User Experience Lead Name Role Phone Unavailable Primary Care Provider Unavailabl e Encounter Details Date Type Department Care Team (Late st Contact Info) Description 11/02/2019 Transcribed Document [facility] Family Medicine [facility] [address] ProviderAgnieszka MD [address] [place], [place] [id number] Social History Tobacco Use Types Packs/Day Years [...] Skin Description : Normal for ethnicity Teresa Mohamud Rn - 11/02/2019 2:19 EDT ED General-Functional Assess Information Obtained From : Patient Communication Barrier : None Primary Language : St Helenian Any Spiritual/Cultural Needs or Requests : No [...]
--- OUTSIDE RECORDS SUMMARY | 2025-02-21 21:27 | XMS_ITS | Encounter Summary ---
Author Organization [employer] ([place], [place], [place], [place]) Address [address] [place] [address] Care Team Providers Care Parking Analyst Name Role Phone Unavailable Primary Care Provider Unavailabl e Encounter Details Date Type Department Care Team (Late st Contact Info) Description 11/02/2019 Transcribed Document [facility] [place] [facility] [address] [place] [address] ProviderAgnieszka MD [address] [place] [address] Social History Tobacco Use Types [...] training, Safety education, Therapeutic activities, Therapeutic exercises JESSIAC ROSENBAUM OTR/L - 11/03/2019 11:18 EDT [facility] Goals, OT Grooming LTG Grid Goal #1 [...] EDT Goal Status : Initial goal ROSENBAUM SACSHA ELIZONDO/Lc - 11/03/2019 11:18 EDT Bed Mobility/ [...] functional distance. Nicole care with assist from GRAPHICS SPECIALIST Total. Pt washed his face with [...] JESSICA ROSENBAUM OTR/Lc - 11/03/2019 11:18 EDT [place] OT Charges OT Selfcare/Hm Mgmt Ea 15 Min : 1 OT Eval Moderate Complexity : 1 JESSICA ROSENBAUM OTR/Lc - 11/03/2019 11:18 EDT documented in this encounter Plan of Treatment Not on file documented as of this encounter Visit Diagnoses Not on filedocumented in this encounter
--- OUTSIDE RECORDS SUMMARY | 2025-02-21 21:27 | XMS_ITS | Encounter Summary ---
Author Organization [employer] ([place], [place], [place], [place]) Address [address] [place] [address] Care Team Providers Care Manager Income Tax Name Role Phone Unavailable Primary Care Provider Unavailabl e Encounter Details Date Type Department Care Team (Late st Contact Info) Description 12/24/2018 Transcribed Document [facility] [place] [address] [place] [address] ProviderAgnieszka MD [address] [place], [place] [phone] Social History Tobacco Use Types Packs/Day Years [...]
--- OUTSIDE RECORDS SUMMARY | 2025-02-21 21:27 | XMS_ITS | Encounter Summary ---
Author Organization [employer] ([place], [place], [place], [place]) Address [address] [place] [address] Care Team Providers Care Information Systems Architect Name Role Phone Unavailable Primary Care Provider Unavailabl e Encounter Details Date Type Department Care Team (Late st Contact Info) Description 11/02/2019 Transcribed Document [facility] [place] [facility] [place] [address] ProviderAgnieszka MD [address] [place], [place] [address] Social History Tobacco Use Types Packs/Day Years [...] booklet; He reported he would call for joint setter if/when he is ready to complete a Living Will Emotional Support : Empathic/Engaged listening, Feelings expressed, Information provided Spiritual and Hindu : Prayer shared, Spiritual/Hindu support provided Change, Adjustment and Loss : [...] Described : HEADKOBI - 11/02/2019 9:43 EDT Electronically signed by Gay Centeno Conversion Vp Director Of Creative Strategy Cerner at 11/12/2022 9:44 PM CDT documented in this encounter Plan of Treatment Not on file documented as of this encounter Visit Diagnoses Not on filedocumented in this encounter
--- OUTSIDE RECORDS SUMMARY | 2025-02-21 21:27 | XMS_ITS | Encounter Summary ---
Author Organization [employer] ([place], [place], [place], [place]) Address [address] [place] [address] Care Team Providers Care Community Development Aide Name Role Phone Unavailable Primary Care Provider Unavailabl e Encounter Details Date Type Department Care Team (Late st Contact Info) Description 11/10/2019 Transcribed Document [facility] [place] [address] ProviderAgnieszka MD [address] [place], [place] [id number] Social History Tobacco Use Types Packs/Day Years [...] [address] [place] [address] Lexii Villela NURSE PRACTITIONER Re: SIMBA MAYEN [...] is strictly prohibited. Sincerely, LEXII [place] [address] [address] [place] [address] The following document(s) were included in the letter: November 10, 2019 11:51:00 EDT - (11/10/2019) Discharge Note documented in this encounter Plan of Treatment Not on file documented as of this encounter Visit Diagnoses Not on filedocumented in this encounter
--- OUTSIDE RECORDS SUMMARY | 2025-02-21 21:27 | XMS_ITS | Encounter Summary ---
Author Organization [employer] ([place], [place], [place], [place]) Address [address] [place] [address] Care Team Providers Care Transit Specialist Name Role Phone Unavailable Primary Care Provider Unavailabl e Encounter Details Date Type Department Care Team (Late st Contact Info) Description 11/02/2019 Transcribed Document [facility] [place] Medicine [address] [place] [address] ProviderAgnieszka MD [address] [place], [place] [address] Social History Tobacco Use Types Packs/Day Years [...]
--- OUTSIDE RECORDS SUMMARY | 2025-02-21 21:27 | XMS_ITS | Encounter Summary ---
Author Organization [employer] ([place], [place], [place], [place]) Address [address] [place] [address] Care Team Providers Care Motorcycle Assembler Name Role Phone Unavailable Primary Care Provider Unavailabl e Encounter Details Date Type Department Care Team (Late st Contact Info) Description 11/10/2019 Transcribed Document [facility] [place] [address] [place] [address] ProviderAgnieszka MD [address] [place], [place] [address] Social History Tobacco Use Types Packs/Day Years [...] Ciara Mccoy RN - 11/10/2019 4:25 EDT documented in this encounter Plan of Treatment Not on file documented as of this encounter Visit Diagnoses Not on filedocumented in this encounter
--- OUTSIDE RECORDS SUMMARY | 2025-02-21 21:27 | XMS_ITS | Encounter Summary ---
Author Organization [employer] ([place], [place], [place], [place]) Address [address] [place] [address] Care Team Providers Care Buggy Driver Name Role Phone Unavailable Primary Care Provider Unavailabl e Encounter Details Date Type Department Care Team (Late st Contact Info) Description 11/02/2019 Transcribed Document [facility] [place] [address] ProviderAgnieszka MD [address] [place], [place] [phone] Social History Tobacco Use Types Packs/Day Years [...] On: 11/02/2019 3:33 EDT by Teresa Mohamud Machine Stacker Process Patient Disposition : Admit/Observe Personal Belongings [...]
--- OUTSIDE RECORDS SUMMARY | 2025-02-21 21:27 | XMS_ITS | Encounter Summary ---
Author Organization [employer] ([place], [place], [place], [place]) Address [address] [place] [address] Care Team Providers Care Relationship Advisor Name Role Phone Unavailable Primary Care Provider Unavailabl e Encounter Details Date Type Department Care Team (Late st Contact Info) Description 11/10/2019 Transcribed Document [facility] [place] [address] [place] [address] ProviderAgnieszka MD [address] [place], [place] [address] Social History Tobacco Use Types Packs/Day Years [...] pleased for one more visit. encouragement provided. Restorationist Preference : Zoroastrian JEROME CONNELLY Chaplain - 11/10/2019 19:44 EDT documented in this encounter Plan of Treatment Not on file documented as of this encounter Visit Diagnoses Not on filedocumented in this encounter
--- OUTSIDE RECORDS SUMMARY | 2025-02-21 21:27 | XMS_ITS | Encounter Summary ---
Author Organization [employer] ([place], [place], [place], [place]) Address [address] [place] [address] Care Team Providers Care Marine Insurance Claim Examiner Name Role Phone Unavailable Primary Care Provider Unavailabl e Encounter Details Date Type Department Care Team (Late st Contact Info) Description 12/25/2018 Transcribed Document [facility] [place] [facility] [place] [address] ProviderAgnieszka MD [address], [place] [phone] Social History Tobacco Use Types Packs/Day Years [...] OSMANI RAINEY PTA - 12/25/2018 7:42 EDT Prison Goals Mobility/Bed Mobility LTG PT Grid Goal [...]
--- OUTSIDE RECORDS SUMMARY | 2025-02-21 21:27 | XMS_ITS | Encounter Summary ---
Author Organization [employer] ([place], [place], [place], [place]) Address [address] [place] [address] Care Team Providers Care Outdoor Power Equipment Mechanic Name Role Phone Unavailable Primary Care Provider Unavailabl e Encounter Details Date Type Department Care Team (Late st Contact Info) Description 11/08/2019 Transcribed Document [facility] [address] ProviderAgnieszka MD [address] [place], [place] [address] Social History Tobacco Use Types Packs/Day Years [...] mL: 2 Gram, 200 mL/Hr, IV Piggyback, [id number] docusate sodium: 200 mg, Oral, BID heparin: [...] mL: 1,250 mg, 250 mL/Hr, IV Piggyback, [id number] Pending Complete fentaNYL: 25 mcg, IV Push, Q10Min Documented Medications Documented Azilect 1 mg oral tablet: 1 Tab, Oral, Daily, 30 Tab, 0 Refill(s) Remicade: 10 mg/kg, IntraVENous, [id number], for Ulcerative Colitis; Last dose: 09/29/2019, 0 [...] Dr. Akers, plan is to get to [facility] soon. Alyssa Bowens MD saw and examined patient, verified findings, reviewed labs and radiographic data, formulated diagnosis, plan for treatment, and all medical decision making. Stef Villalobos PA-C for Dr. Robson Bowens. documented in this encounter Plan of Treatment Not on file documented as of this encounter Visit Diagnoses Not on filedocumented in this encounter
--- OUTSIDE RECORDS SUMMARY | 2025-02-21 21:27 | XMS_ITS | Encounter Summary ---
Author Organization [employer] ([place], [place], [place], [place]) Address [address] [place] [address] Care Team Providers Care Belt Molder Name Role Phone Unavailable Primary Care Provider Unavailabl e Encounter Details Date Type Department Care Team (Late st Contact Info) Description 11/07/2019 Transcribed Document [facility] Family Medicine [address] [place] [address] ProviderAgnieszka MD [address] [place], [place] [address] Social History Tobacco Use Types Packs/Day Years [...] rukhsana for now. Electronically signed by Taryn Ranken [facility] Conversion Doctor Of Medicine Cerner at 11/12/2022 9:55 PM CDT documented in this encounter Plan of Treatment Not on file documented as of this encounter Visit Diagnoses Not on filedocumented in this encounter
--- OUTSIDE RECORDS SUMMARY | 2025-02-21 21:27 | XMS_ITS | Encounter Summary ---
Author Organization [employer] ([place], [place], [place], [place]) Address [address] [place] [address] Care Team Providers Care Wellness Manager Name Role Phone Unavailable Primary Care Provider Unavailabl e Encounter Details Date Type Department Care Team (Late st Contact Info) Description 11/10/2019 Transcribed Document [facility] [place] [address] [place] [address] ProviderAgnieszka MD [address] [place], [place] [id number] Social History Tobacco Use Types Packs/Day Years Used Date Smoking Tobacco: Never Assessed Sex and Gender Information Value Date Recorded Sex Assigned at Not on file Legal Sex Male 2:38 PM CDT Gender Identity Not on file Sexual Orientation Not on file documented as of this encounter Miscellaneous Notes * Cerner Conversion Note - Historical ProviderMD - 11/10/2019 2:00 AM CDT Catalog Librarian Details Entered On: 11/10/2019 4:25 EDT Performed [...]
--- OUTSIDE RECORDS SUMMARY | 2025-02-21 21:27 | XMS_ITS | Encounter Summary ---
Author Organization [employer] ([place], [place], [place], [place]) Address [address] [place] [address] Care Team Providers Care Technology Applications Consultant Name Role Phone Unavailable Primary Care Provider Unavailabl e Encounter Details Date Type Department Care Team (Late st Contact Info) Description 11/02/2019 Transcribed Document [facility] [place] Family Medicine [address] [place] [address] ProviderAgnieszka MD [address], [place] [phone] Social History Tobacco Use Types Packs/Day Years [...] Oriented x 4 Attention Assessment : Present LAEVRNE OLSON, PT - 11/03/2019 11:33 EDT Edu [...] LAVERNE OLSON, PT - 11/03/2019 11:33 EDT Refuse Collector Goals Mobility/Bed Mobility LTG PT Grid Goal [...]
--- OUTSIDE RECORDS SUMMARY | 2025-02-21 21:27 | XMS_ITS | Encounter Summary ---
Author Organization [employer] ([place], [place], [place], [place]) Address [address] [place] [address] Care Team Providers Care Self Rising Flour Mixer Name Role Phone Unavailable Primary Care Provider Unavailabl e Encounter Details Date Type Department Care Team (Late st Contact Info) Description 11/02/2019 Transcribed Document [facility] Family Medicine [address] [place] [address] ProviderAgnieszka MD [address] [place], [place] [address] Social History Tobacco Use Types Packs/Day Years [...]
--- OUTSIDE RECORDS SUMMARY | 2025-02-21 21:27 | XMS_ITS | Encounter Summary ---
Author Organization [employer] ([place], [place], [place], [place]) Address [address] [place] [address] Care Team Providers Care Welding Machine Operator Resistance Name Role Phone Unavailable Primary Care Provider Unavailabl e Encounter Details Date Type Department Care Team (Late st Contact Info) Description 11/02/2019 Transcribed Document [facility] Family Medicine [address] [place] [address] ProviderAgnieszka MD [address], [place] [phone] Social History Tobacco Use Types Packs/Day Years [...]
--- OUTSIDE RECORDS SUMMARY | 2025-02-21 21:27 | XMS_ITS | Encounter Summary ---
Author Organization [employer] ([place], [place], [place], [place]) Address [address] [place] [address] Care Team Providers Care Newspaper Photographer Name Role Phone Unavailable Primary Care Provider Unavailabl e Encounter Details Date Type Department Care Team (Late st Contact Info) Description 12/23/2018 Transcribed Document [facility] Neurology - [address] [facility] [address] [place] [address] Mark Akers MD [address] [place] [address] Social History Tobacco Use Types [...] since surgery. Impression and Plan POD 1 J01-qajzs fusion. Continue drain. Keep sotomayor until ambulatory. Heparin for dvt prophylaxis. PT/OT. documented in this encounter Plan of Treatment Not on file documented as of this encounter Visit Diagnoses Not on filedocumented in this encounter
--- OUTSIDE RECORDS SUMMARY | 2025-02-21 21:27 | XMS_ITS | Encounter Summary ---
Author Organization [facility] ([place], [place], [place], [place]) Address [address] [place] [address] Care Team Providers Care Market Master Name Role Phone Unavailable Primary Care Provider Unavailabl e Encounter Details Date Type Department Care Team (Late st Contact Info) Description 11/02/2019 Transcribed Document 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
--- OUTSIDE RECORDS SUMMARY | 2025-02-21 21:27 | XMS_ITS | Encounter Summary ---
Author Organization [employer] ([place], [place], [place], [place]) Address [address] [place] [address] Care Team Providers Care Veneer Joiner Name Role Phone Unavailable Primary Care Provider Unavailabl e Encounter Details Date Type Department Care Team (Late st Contact Info) Description 12/24/2018 Transcribed Document [facility] Radiology [address] [place] [address] Ivana Salcido MD [facility] [address] [address] Social History Tobacco Use Types [...] MARK PA-SABRA 12/24/18 cc: medical management s/p [id number] PLIF per Dr. Akers S: pt is [...] is a 68 yo male [address] to [facility] per Dr. Akers for a Q95-spxam PLIF. Preoperatively patient was found to have [...] mL/Min 12/24/2018 05:30 Impression: spondylolisthesis Lspine; s/p [id number]-lhklb PLIF per Dr. Akers mild tachycardia, ?pain [...] mg while at hospital Pending DC to [facility] Acute today per DC habitat conservation planner and Dr. Akers wean O2 for sat >92% limit narcs- watch sedation level; limit narcotic us at [facility] Monitor HTN; add PRN's, hold parameters [...]
--- OUTSIDE RECORDS SUMMARY | 2025-02-21 21:27 | XMS_ITS | Encounter Summary ---
Author Organization [employer] ([place], [place], [place], [place]) Address [address] [place] [address] Care Team Providers Care Legger Press Operator Name Role Phone Unavailable Primary Care Provider Unavailabl e Encounter Details Date Type Department Care Team (Late st Contact Info) Description 11/02/2019 Transcribed Document [facility] [place] Family Medicine [address] [place] [address] ProviderAgnieszka MD [address] [place], [place] [address] Social History Tobacco Use Types Packs/Day Years [...]
--- OUTSIDE RECORDS SUMMARY | 2025-02-21 21:27 | XMS_ITS | Encounter Summary ---
Author Organization [employer] ([place], [place], [place], [place]) Address [address] [place] [address] Care Team Providers Care Marine Habitat Resource Specialist Name Role Phone Unavailable Primary Care Provider Unavailabl e Encounter Details Date Type Department Care Team (Late st Contact Info) Description 12/23/2018 Transcribed Document [facility] [place] [facility] [place] [address] ProviderAgnieszka MD [address] [place], [place] [address] Social History Tobacco Use Types Packs/Day Years [...] NP-SABRA 12/23/18 cc: medical management - awaiting S03-rvcwg PLIF per Dr. Akers S: Doing fine No fevers, chills, sweats No shortness of breath, cough No Chest pain, palpitations, syncope No nausea, vomiting, -flatus, -BM +sotomayor anchored + post-op back pain HPI: Patient is a 68 yo [address] to [facility] per Dr. Akers for a Q82-xummy PLIF. Preoperatively patient was found to have [...] mmol/L 12/23/2018 04:01 Chloride Level 113 mmol/L PA 12/23/2018 04:01 Carbon Dioxide Level 25 mmol/L 12/23/2018 04:01 Anion Gap 9 12/23/2018 04:01 Blood Urea Nitrogen 13 mg/dL 12/23/2018 04:01 Glucose Level 100 mg/dL 12/23/2018 04:01 Calcium Level 7.3 mg/dL LOW 12/23/2018 04:01 Creatinine Level 0.90 mg/dL 12/23/2018 04:01 Impression: spondylolisthesis Lspine; awaiting J38-kdcio PLIF per Dr. 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
--- OUTSIDE RECORDS SUMMARY | 2025-02-21 21:27 | XMS_ITS | Encounter Summary ---
Author Organization [employer] ([place], [place], [place], [place]) Address [address] [place] [address] Care Team Providers Care Resource Analyst Name Role Phone Unavailable Primary Care Provider Unavailabl e Encounter Details Date Type Department Care Team (Late st Contact Info) Description 11/07/2019 Transcribed Document [facility] [place] [address] [place] [address] ProviderAgnieszka MD [address] [place], [place] [address] Social History Tobacco Use Types Packs/Day Years [...]
--- OUTSIDE RECORDS SUMMARY | 2025-02-21 21:27 | XMS_ITS | Encounter Summary ---
Author Organization [employer] ([place], [place], [place], [place]) Address [address] [place] [address] Care Team Providers Care Reinforcement Maker Name Role Phone Unavailable Primary Care Provider Unavailabl e Encounter Details Date Type Department Care Team (Late st Contact Info) Description 11/02/2019 Transcribed Document [facility] [place] Family Medicine [facility] [place] [address] ProviderAgnieszka MD [address] [place], [place] [address] Social History Tobacco Use Types Packs/Day Years [...] 1950 Associated Diagnoses: None Author: BROOKS GORE, [facility] 69yoM with Low Back Pain - R/O [...] Brooks Gore RPh Electronically signed by Taryn, [facility] Conversion Director Energy Cerjulio at 11/12/2022 9:28 PM CDT documented in this encounter Plan of Treatment Not on file documented as of this encounter Visit Diagnoses Not on filedocumented in this encounter
--- OUTSIDE RECORDS SUMMARY | 2025-02-21 21:27 | XMS_ITS | Encounter Summary ---
Author Organization [employer] ([place], [place], [place], [place]) Address [address] [place] [address] Care Team Providers Care Playground Worker Name Role Phone Unavailable Primary Care Provider Unavailabl e Encounter Details Date Type Department Care Team (Late st Contact Info) Description 12/24/2018 Transcribed Document [facility] [place] Family Medicine [facility] [place] [address] ProviderAgnieszka MD [address] [place] [address] Social History Tobacco Use Types Packs/Day Years Used Date Smoking Tobacco: Never Assessed Sex and Gender Information Value Date Recorded Sex Assigned at Not on file Legal Sex Male 2:38 PM CDT Gender Identity Not on file Sexual Orientation Not on file documented as of this encounter Miscellaneous Notes * Cerner Conversion Note - Agnieszka ProviderMD - 12/24/2018 3:42 PM CDT [address] [address] Patient Copy Patient Information: Name: SIMBA MAYEN JR Current Date: 12/24/2018 15:42:15 : 1950 Patient Address: [address] [address] Patient Attending Physician: HEIDE KAT [facility] Primary Care Provider: NOAH NUNEZ MD Primary Care Provider Discharge Diagnosis: Lumbar spine scoliosis; Lumbar stenosis Weight on Admission: 409 lb, 3 oz Comment: Follow-up Instructions: With: Address: When: HEIDE KAT [address] [facility] [place] [address] Business (1) Within 1 month Comments: with x rays With: Address: When: HEIDE KAT [address] [facility], [address] [place], [place] [id number] Business (1) Within 2 weeks Comments: staple [...] Assistance with quitting is available by contacting 8-641-UCEP-NOW. This is a free resource providing counseling, [...] Be sure to sign up for the Inside Secure patient portal, which gives you 17/02 access to your medical information ??? including these discharge instructions ??? using your computer, smartphone, or tablet. Just go to [email or web address] to get started. Questions? Call . [facility] would like to thank you for allowing us to assist you with your healthcare needs. FAHEEM Chan JR, KENNETH, (or contact representative) have received the above patient education materials/instructions and have verbalized understanding: Patient Signature _ Date/Time Patient Mortgage Or Loan Underwriter Signature (if needed) Date/Time Clinician/Hospital Mortgage Or Loan Underwriter Signature (if needed) Date/Time documented in this encounter Plan of Treatment Not on file documented as of this encounter Visit Diagnoses Not on filedocumented in this encounter
--- OUTSIDE RECORDS SUMMARY | 2025-02-21 21:28 | XMS_ITS | Encounter Summary ---
Author Organization [email or web address] ([place], [place], [place], [place]) Address [address] [place] [address] Care Team Providers Care Oil Lease Operator Name Role Phone Unavailable Primary Care Provider Unavailabl e Encounter Details Date Type Department Care Team (Late st Contact Info) Description 11/09/2019 Transcribed Document [facility] [place] Family Medicine [facility] [place] [address] ProviderAgnieszka MD [address] [place], [place] [id number] Social History Tobacco Use Types Packs/Day Years [...] plan of discharge is to cont with [facility] upon being released. Pt was resting well this am and reported that OT did visit with him earlier. PT orders entered, and awaiting eval. [facility] is closely following pt. Tranportation will need to be arranged. Historical Progress Note : Neuro surgery note for today pending. Initial plans before first surgery were to transition to [facility]. Second surgery was performed, and spoke with pt/spouse and both still agree to safe plan of discharge being [facility] for rehab when medically cleared for discharge. Spoke to [facility] today, and is going to speak w/pt about facility. CM to cont following SAL BERRIOS RN-Care Management - 11/08/19 14:04:02 Pt off floor since this am for thoracic extension with arrow procedure. CM to cont following, and safe plans of discharge is [facility] when medically cleared to be released. [facility] following SAL BERRIOS RN-Care Management - 11/05/19 12:51:13 Elvia stated that [facility] is following for patient placement. Patient is scheduled for surgery Friday11/05/19. Cm will continue to follow. ELKE VELÁZQUEZ, Manager Internship-Electrical Products Sales Engineer - 11/04/19 13:06:08 Patient is scheduled for an MRI on and surgery on Friday. He reported wanting to go to [facility]. Cm sent referral packet to [facility]. ELKE VELÁZQUEZ Manager Internship-Electrical Products Sales Engineer - 11/03/19 14:33:22 SAL BERRIOS RN-Care Management - 11/09/2019 11:49 EDT Electronically signed by Gay Centeno Conversion Swimming Pool Installer And Servicer Cerner at 11/12/2022 9:33 PM CDT documented in this encounter Plan of Treatment Not on file documented as of this encounter Visit Diagnoses Not on filedocumented in this encounter
--- OUTSIDE RECORDS SUMMARY | 2025-02-21 21:28 | XMS_ITS | Encounter Summary ---
Author Organization [employer] ([place], [place], [place], [place]) Address [address] [place] [address] Care Team Providers Care Riverboat Master Name Role Phone Unavailable Primary Care Provider Unavailabl e Encounter Details Date Type Department Care Team (Late st Contact Info) Description 11/05/2019 Transcribed Document [facility] [place] [address] [place] [address] ProviderAgnieszka MD [address] [place], [place] [id number] Social History Tobacco Use Types Packs/Day Years [...]
--- OUTSIDE RECORDS SUMMARY | 2025-02-21 21:28 | XMS_ITS | Encounter Summary ---
Author Organization [employer] ([place], [place], [place], [place]) Address [address] [place] [address] Care Team Providers Care Insurance Sales Manager Name Role Phone Unavailable Primary Care Provider Unavailabl e Encounter Details Date Type Department Care Team (Late st Contact Info) Description 11/09/2019 Transcribed Document [facility] [place] [address] [place] [address] ProviderAgnieszka MD [address], [place] [phone] Social History Tobacco Use Types Packs/Day Years [...] Ministry Provided to : Patient, Family/Significant other Presybeterian Preference : [employer] JEROME CONNELLY Chaplain - 11/09/2019 19:24 EDT [...]
--- OUTSIDE RECORDS SUMMARY | 2025-02-21 21:28 | XMS_ITS | Encounter Summary ---
Author Organization [employer] ([place], [place], [place], [place]) Address [address] [place] [address] Care Team Providers Care Immunologist Name Role Phone Unavailable Primary Care Provider Unavailabl e Encounter Details Date Type Department Care Team (Late st Contact Info) Description 11/09/2019 Transcribed Document [facility] [place] Family Medicine On [facility] [place] [address] ProviderAgnieszka MD [address] [place], [place] [id number] Social History Tobacco Use Types Packs/Day Years [...] form. Electronically signed by Gay Centeno Conversion Printing And Stamping Supervisor Cerner at 11/12/2022 9:54 PM CDT documented in this encounter Plan of Treatment Not on file documented as of this encounter Visit Diagnoses Not on filedocumented in this encounter
--- OUTSIDE RECORDS SUMMARY | 2025-02-21 21:28 | XMS_ITS | Encounter Summary ---
Author Organization [employer] ([place], [place], [place], [place]) Address [address] [place] [address] Care Team Providers Care Router Operator Name Role Phone Unavailable Primary Care Provider Unavailabl e Encounter Details Date Type Department Care Team (Late st Contact Info) Description 11/04/2019 Transcribed Document [facility] [place] Family Medicine [address] [place] [address] ProviderAgnieszka MD [address] [place], [place] [address] Social History Tobacco Use Types Packs/Day Years [...] On: 11/04/2019 5:00 EDT by Radha Josue Creative Services Writer-Health Unit Coord Chart Check Powerplans Initiated/Discontinued as Appropriate : Yes All Active Orders Reviewed : Yes Radha Josue Care Asst-Health Unit Coord - 11/04/2019 4:43 EDT documented in this encounter Plan of Treatment Not on file documented as of this encounter Visit Diagnoses Not on filedocumented in this encounter
--- OUTSIDE RECORDS SUMMARY | 2025-02-21 21:28 | XMS_ITS | Encounter Summary ---
Author Organization [employer] ([place], [place], [place], [place]) Address [address] [place] [address] Care Team Providers Care Medical Sociologist Name Role Phone Unavailable Primary Care Provider Unavailabl e Encounter Details Date Type Department Care Team (Late st Contact Info) Description 11/08/2019 Transcribed Document [facility] [place] Family Medicine [address] [place] [address] ProviderAgnieszka MD [address] [place], [place] [address] Social History Tobacco Use Types Packs/Day Years [...]
--- OUTSIDE RECORDS SUMMARY | 2025-02-21 21:28 | XMS_ITS | Encounter Summary ---
Author Organization [employer] ([place], [place], [place], [place]) Address [address] [place] [address] Care Team Providers Care Supervisor Pastry Name Role Phone Unavailable Primary Care Provider Unavailabl e Encounter Details Date Type Department Care Team (Late st Contact Info) Description 11/08/2019 Transcribed Document [facility] [place] Family Medicine [address] [place] [address] ProviderAgnieszka MD [facility] [place], [place] [address] Social History Tobacco Use Types Packs/Day Years [...]
--- OUTSIDE RECORDS SUMMARY | 2025-02-21 21:28 | XMS_ITS | Encounter Summary ---
Author Organization [employer] ([place], [place], [place], [place]) Address [address] [place] [address] Care Team Providers Care Thread Weaver Name Role Phone Unavailable Primary Care Provider Unavailabl e Encounter Details Date Type Department Care Team (Late st Contact Info) Description 11/09/2019 Transcribed Document [facility] [place] [facility] [place] [address] ProviderAgnieszka MD [address] [place], [place] [phone] Social History Tobacco Use Types Packs/Day Years [...]
--- OUTSIDE RECORDS SUMMARY | 2025-02-21 21:28 | XMS_ITS | Encounter Summary ---
Author Organization [employer] ([place], [place], [place], [place]) Address [address] [place] [address] Care Team Providers Care Commercial Roofing Estimator Name Role Phone Unavailable Primary Care Provider Unavailabl e Encounter Details Date Type Department Care Team (Late st Contact Info) Description 11/05/2019 Transcribed Document [facility] [place] Family Medicine [address] [place] [address] ProviderAgnieszka MD [address] [place], [place] [id number] Social History Tobacco Use Types Packs/Day Years [...]
--- OUTSIDE RECORDS SUMMARY | 2025-02-21 21:28 | XMS_ITS | Encounter Summary ---
Author Organization [employer] ([place], [place], [place], [place]) Address [address] [place] [address] Care Team Providers Care Film Washer Name Role Phone Unavailable Primary Care Provider Unavailabl e Encounter Details Date Type Department Care Team (Late st Contact Info) Description 11/09/2019 Transcribed Document [facility] [place] [address] [place] [address] ProviderAgnieszka MD [address] [place], [place] [address] Social History Tobacco Use Types Packs/Day Years [...] Teresa Bucio RN - 11/09/2019 18:55 EDT documented in this encounter Plan of Treatment Not on file documented as of this encounter Visit Diagnoses Not on filedocumented in this encounter
--- OUTSIDE RECORDS SUMMARY | 2025-02-21 21:28 | XMS_ITS | Encounter Summary ---
Author Organization [employer] ([place], [place], [place], [place]) Address [address] [place] [address] Care Team Providers Care Domain Architect Name Role Phone Unavailable Primary Care Provider Unavailabl e Encounter Details Date Type Department Care Team (Late st Contact Info) Description 11/09/2019 Transcribed Document [facility] [place] [facility] [place] [address] ProviderAgnieszka MD [address] [place], [place] [address] Social History Tobacco Use Types Packs/Day Years [...] mL: 2 Gram, 200 mL/Hr, IV Piggyback, L83HQna docusate sodium: 200 mg, Oral, BID heparin: [...] mL: 1,250 mg, 250 mL/Hr, IV Piggyback, L60XJgr Pending Complete fentaNYL: 25 mcg, IV Push, Q10Min Documented Medications Documented Azilect 1 mg oral tablet: 1 Tab, Oral, Daily, 30 Tab, 0 Refill(s) Remicade: 10 mg/kg, IntraVENous, U5Frvrp, for Ulcerative Colitis; Last dose: 09/29/2019, 0 [...] micro id prior to making plans for [facility] transfer -- probiotic ?Continue to follow cultures and sensitivity reports an just antibiotics accordingly ?Follow daily labs while in hospital and trend results Discussed at length with in room documented in this encounter Plan of Treatment Not on file documented as of this encounter Visit Diagnoses Not on filedocumented in this encounter
--- OUTSIDE RECORDS SUMMARY | 2025-02-21 21:28 | XMS_ITS | Encounter Summary ---
Author Organization [employer] ([place], [place], [place], [place]) Address [address] [place] [address] Care Team Providers Care Glassworker Name Role Phone Unavailable Primary Care Provider Unavailabl e Encounter Details Date Type Department Care Team (Late st Contact Info) Description 11/09/2019 Transcribed Document [facility] [place] Medicine [facility] [place] [address] ProviderAgnieszka MD [address] [place], [place] [phone] Social History Tobacco Use Types Packs/Day Years [...]
--- OUTSIDE RECORDS SUMMARY | 2025-02-21 21:28 | XMS_ITS | Encounter Summary ---
Author Organization [employer] ([place], [place], [place], [place]) Address [address] [place] [address] Care Team Providers Care Director Ambulatory Name Role Phone Unavailable Primary Care Provider Unavailabl e Encounter Details Date Type Department Care Team (Late st Contact Info) Description 11/04/2019 Transcribed Document [facility] [place] Family Medicine [address] [place] [address] ProviderAgnieszka MD [address] [place], [place] [address] Social History Tobacco Use Types Packs/Day Years [...]
--- OUTSIDE RECORDS SUMMARY | 2025-02-21 21:28 | XMS_ITS | Encounter Summary ---
Author Organization [employer] ([place], [place], [place], [place]) Address [address] [place] [address] Care Team Providers Care Cage Clerk Name Role Phone Unavailable Primary Care Provider Unavailabl e Encounter Details Date Type Department Care Team (Late st Contact Info) Description 11/09/2019 Transcribed Document [facility] [place] Family Medicine [facility] [place] [address] ProviderAgnieszka MD [address] [place], [place] [phone] Social History Tobacco Use Types Packs/Day Years [...] EDT Treatment Time : 26 Minute(s) MALIHA COILN OTR/Lc - 11/10/2019 15:28 EDT Functional Mobility [...] MALIHA COLIN OTR/Lc - 11/10/2019 15:28 EDT Snf Goals, OT Grooming LTG Grid Goal #1 [...]
--- OUTSIDE RECORDS SUMMARY | 2025-02-21 21:28 | XMS_ITS | Encounter Summary ---
Author Organization [employer] ([place], [place], [place], [place]) Address [address] [place] [address] Care Team Providers Care Power Transformer Inspector Name Role Phone Unavailable Primary Care Provider Unavailabl e Encounter Details Date Type Department Care Team (Late st Contact Info) Description 11/09/2019 Transcribed Document [facility] [place] Family Medicine [address] [place] [address] ProviderAgnieszka MD [address] [place], [place] [address] Social History Tobacco Use Types Packs/Day Years [...] On: 11/09/2019 5:00 EDT by Radha Josue Parts Inspector-Health Unit Coord Chart Check Powerplans Initiated/Discontinued as Appropriate : Yes All Active Orders Reviewed : Yes Radha Josue Care Asst-Health Unit Coord - 11/09/2019 4:54 EDT documented in this encounter Plan of Treatment Not on file documented as of this encounter Visit Diagnoses Not on filedocumented in this encounter
--- OUTSIDE RECORDS SUMMARY | 2025-02-21 21:28 | XMS_ITS | Encounter Summary ---
Author Organization [employer] ([place], [place], [place], [place]) Address [address] [place] [address] Care Team Providers Care Pricer Name Role Phone Unavailable Primary Care Provider Unavailabl e Encounter Details Date Type Department Care Team (Late st Contact Info) Description 11/05/2019 Transcribed Document [facility] [place] [facility] [place] [address] ProviderAgnieszka MD [address] [place], [place] [id number] Social History Tobacco Use Types Packs/Day Years [...] : Yes Central Line Insertion Facility : [facility] Central Line Insertion Start Date/Time : 11/05/2019 15:37 EDT Central Catheter Type : Power injection PICC Central Line Lot Number : [id number] Central Line Vessel Cannulated : Median basilic [...]
--- OUTSIDE RECORDS SUMMARY | 2025-02-21 21:28 | XMS_ITS | Referral Summary ---
Author Organization [employer] ([place], [place], [place], [place]) Address [address] [place] [address] Care Team Providers Care Mess Attendant Crew Name Role Phone Unavailable Primary Care Provider [...]
--- OUTSIDE RECORDS SUMMARY | 2025-02-21 21:28 | XMS_ITS | Encounter Summary ---
Author Organization [employer] ([place], [place], [place], [place]) Address [address] [place] [address] Care Team Providers Care Parts Delivery Driver Name Role Phone Unavailable Primary Care Provider Unavailabl e Encounter Details Date Type Department Care Team (Late st Contact Info) Description 11/10/2019 Transcribed Document [facility] [place] [address] [place] [address] ProviderAgnieszka MD [address], [place] [id number] Social History Tobacco Use Types Packs/Day Years [...] Diagnoses: None Author: BROOKS GORE, [facility] 69yoM with Low Back Pain - [...] to sign off -pt to transfer to [facility] today Thank You, Brooks Gore RPh Electronically signed by Taryn [facility] Conversion 8Th Grade Teacher Cerner at 11/12/2022 9:30 PM CDT documented in this encounter Plan of Treatment Not on file documented as of this encounter Visit Diagnoses Not on filedocumented in this encounter
--- OUTSIDE RECORDS SUMMARY | 2025-02-21 21:28 | XMS_ITS | Encounter Summary ---
Author Organization [employer] ([place], [place], [place], [place]) Address [address] [place] [address] Care Team Providers Care Fountain Manager Name Role Phone Unavailable Primary Care Provider Unavailabl e Encounter Details Date Type Department Care Team (Late st Contact Info) Description 11/08/2019 Transcribed Document [facility] [place] [facility] [address] ProviderAgnieszka MD [address] [place] [place], [place] [id number] Social History Tobacco Use Types Packs/Day Years [...] before first surgery were to transition to [facility]. Second surgery was performed, and spoke with pt/spouse and both still agree to safe plan of discharge being [facility] for rehab when medically cleared for discharge. Spoke to Coll[facility] today, and is going to speak w/pt about facility. CM to cont following Historical Progress Note : Pt off floor since this am for thoracic extension with arrow procedure. CM to cont following, and safe plans of discharge is [facility] when medically cleared to be released. [facility] following SAL BERRIOS RN-Care Management - 11/05/19 12:51:13 Elvia stated that [facility] is following for patient placement. Patient is scheduled for surgery Friday11/05/19. Cm will continue to follow. ELKE VELÁZQUEZ, Band Bias Machine Operator-Spring Assembler - 11/04/19 13:06:08 Patient is scheduled for an MRI on and surgery on Friday. He reported wanting to go to [facility]. Cm sent referral packet to [facility]. ELKE VELÁZQUEZ Band Bias Machine Operator-Spring Assembler - 11/03/19 14:33:22 SAL BERRIOS RN-Care Management - 11/08/2019 13:58 EDT documented in this encounter Plan of Treatment Not on file documented as of this encounter Visit Diagnoses Not on filedocumented in this encounter
--- OUTSIDE RECORDS SUMMARY | 2025-02-21 21:28 | XMS_ITS | Encounter Summary ---
Author Organization [employer] ([place], [place], [place], [place]) Address [address] [place] [address] Care Team Providers Care Hall Monitor Name Role Phone Unavailable Primary Care Provider Unavailabl e Encounter Details Date Type Department Care Team (Late st Contact Info) Description 11/09/2019 Transcribed Document [facility] [place] [facility] [place] [address] ProviderAgnieszka MD [address] [place], [place] [id number] Social History Tobacco Use Types Packs/Day Years [...] acetaminophen(Pending Validation) Performed by Radha Josue Care [facility] on 11/09/2019 07:07:00 EDT acetaminophen,650mg Oral Pain [...]
--- OUTSIDE RECORDS SUMMARY | 2025-02-21 21:28 | XMS_ITS | Encounter Summary ---
Author Organization [employer] ([place], [place], [place], [place]) Address [address] [place] [address] Care Team Providers Care Product Owner Name Role Phone Unavailable Primary Care Provider Unavailabl e Encounter Details Date Type Department Care Team (Late st Contact Info) Description 11/04/2019 Transcribed Document [facility] [place] [facility] [place] [address] ProviderAgnieszka MD [address], [place] [address] Social History Tobacco Use Types Packs/Day Years [...] MiraLax: 17 Gram, Oral, Daily, PRN: Constipation Filley 10 mg-325 mg oral tablet: 1 Tab, [...] mL: 2 Gram, 100 mL/Hr, IV Piggyback, [id number] heparin: 5,000 Units, SubCutaneous, Q8H hydrALAZINE: 10 mg, IV Push, Q6H, PRN: Hypertension lactobacillus acidophilus: 1 Cap, Oral, Daily morphine: 2 mg, IV Push, Q2H, PRN: Pain (Severe 7-10) sodium chloride 0.9% injectable solution: 10 mL, IV Push, Q8H vancomycin + Sodium Chloride 0.9% intravenous solution 250 mL: 1,250 mg, 250 mL/Hr, IV Piggyback, [id number] Documented Medications Documented Azilect 1 mg oral tablet: 1 Tab, Oral, Daily, 30 Tab, 0 Refill(s) Remicade: 10 mg/kg, IntraVENous, R4Vwert, for Ulcerative Colitis; Last dose: 09/29/2019, 0 [...]
--- OUTSIDE RECORDS SUMMARY | 2025-02-21 21:28 | XMS_ITS | Encounter Summary ---
Author Organization [employer] ([place], [place], [place], [place]) Address [address] [place] [address] Care Team Providers Care Cmm Programmer Name Role Phone Unavailable Primary Care Provider Unavailabl e Encounter Details Date Type Department Care Team (Late st Contact Info) Description 11/05/2019 Transcribed Document [place] [facility] [place] [address] ProviderAgnieszka MD [address] [place] [address] Social History Tobacco Use Types [...]
--- OUTSIDE RECORDS SUMMARY | 2025-02-21 21:28 | XMS_ITS | Encounter Summary ---
Author Organization [employer] ([place], [place], [place], [place]) Address [address] [place] [address] Care Team Providers Care Bonus Clerk Name Role Phone Unavailable Primary Care Provider Unavailabl e Encounter Details Date Type Department Care Team (Late st Contact Info) Description 11/04/2019 Transcribed Document [facility] [place] [facility] [place] [address] ProviderAgnieszka MD [address], [place] [id number] Social History Tobacco Use Types Packs/Day Years [...]
--- OUTSIDE RECORDS SUMMARY | 2025-02-21 21:28 | XMS_ITS | Encounter Summary ---
Author Organization [employer] ([place], [place], [place], [place]) Address [address] [place] [address] Care Team Providers Care Collar Setter Name Role Phone Unavailable Primary Care Provider Unavailabl e Encounter Details Date Type Department Care Team (Late st Contact Info) Description 11/05/2019 Transcribed Document [facility] [place] [address] [place] [address] ProviderAgnieszka MD [address] [place], [place] [address] Social History Tobacco Use Types Packs/Day Years [...]
--- OUTSIDE RECORDS SUMMARY | 2025-02-21 21:28 | XMS_ITS | Encounter Summary ---
Author Organization [employer] ([place], [place], [place], [place]) Address [address] [place] [address] Care Team Providers Care Radarman Name Role Phone Unavailable Primary Care Provider Unavailabl e Encounter Details Date Type Department Care Team (Late st Contact Info) Description 11/05/2019 Transcribed Document [facility] Neurology - [address] [facility] [address] [place] [id number] Mark Akers MD [address] [place] [address] Social History Tobacco Use Types [...] 4. Intraoperative CT scan with stereotactic navigation. SAMPLER TESTER: Janae Borges. TYPE OF ANESTHESIA: GEA. DESCRIPTION [...] and the usual freehand techniques and the [employer] system, pedicle screws were placed at T6, T7, T8, and T9. Fluoroscopy was draped into the field and used to perform screw augmentation to all these screws. The glue was allowed to harden. Excess jmi was connected from the previous 5.5 jim [...] LOSS: 250 mL. DRAINS: Sam-Burger. COMPLICATIONS: None. /[id number] Mark Akers MD MPT/AQ / MPT / MODL /[id number] CC: Dr. Faustino Jones documented in this encounter Plan of Treatment Not on file documented as of this encounter Visit Diagnoses Not on filedocumented in this encounter
--- OUTSIDE RECORDS SUMMARY | 2025-02-21 21:28 | XMS_ITS | Encounter Summary ---
Author Organization [employer] ([place], [place], [place], [place]) Address [address] [place] [address] Care Team Providers Care Spring Clipper Name Role Phone Unavailable Primary Care Provider Unavailabl e Encounter Details Date Type Department Care Team (Late st Contact Info) Description 11/04/2019 Transcribed Document [facility] [place] [facility] [place] [address] ProviderAgnieszka MD [address], [place] [address] Social History Tobacco Use Types Packs/Day Years [...] On: 11/04/2019 13:05 EDT by ELKE VELÁZQUEZ, Field Service Specialist-Wastewater Project Manager Care Management Progress Note Discharge Arrangements : [...] Attend Multidisciplinary Rounds? : No ELKE VELÁZQUEZ Field Service Specialist-Wastewater Project Manager - 11/04/2019 13:05 EDT Narrative Progress Note Narrative Progress Note : Elvia stated that [facility] is following for patient placement. Patient is scheduled for surgery Friday11/05/19. Cm will continue to follow. Historical Progress Note : Patient is scheduled for an MRI on and surgery on Friday. He reported wanting to go to [facility]. Cm sent referral packet to [facility]. ELKE VELÁZQUEZ Field Service Specialist-Wastewater Project Manager - 11/03/19 14:33:22 ELKE VELÁZQUEZ Field Service Specialist-Wastewater Project Manager - 11/04/2019 13:05 EDT documented in this encounter Plan of Treatment Not on file documented as of this encounter Visit Diagnoses Not on filedocumented in this encounter
--- OUTSIDE RECORDS SUMMARY | 2025-02-21 21:28 | XMS_ITS | Encounter Summary ---
Author Organization [employer] ([place], [place], [place], [place]) Address [address] [place] [address] Care Team Providers Care Rn Faculty Name Role Phone Unavailable Primary Care Provider Unavailabl e Encounter Details Date Type Department Care Team (Late st Contact Info) Description 11/09/2019 Transcribed Document [facility] [place] [address] [place] [address] ProviderAgnieszka MD [address] [place] [address] Social History Tobacco Use Types [...] Laminectomy Hx: Parkinsons, DJD, spinal stenosis, previous V74-neaul fusion. JACQUI MCGUIRE, PT - 11/09/2019 11:42 [...] JACQUI MCGUIRE, PT - 11/09/2019 11:42 EDT Configuration Management Administrator Goals Mobility/Bed Mobility LTG PT Grid Goal [...] JACQUI MCGUIRE, PT - 11/09/2019 11:42 EDT [place] PT Charges PT Re-Evaluation : 1 JACQUI [...]
--- OUTSIDE RECORDS SUMMARY | 2025-02-21 21:28 | XMS_ITS | Encounter Summary ---
Author Organization [employer] ([place], [place], [place], [place]) Address [address] [place] [address] Care Team Providers Care Shuttle Route Vehicle Operator Name Role Phone Unavailable Primary Care Provider Unavailabl e Encounter Details Date Type Department Care Team (Late st Contact Info) Description 11/05/2019 Transcribed Document [facility] [place] [facility] [place] [address] ProviderAgnieszka MD [address], [place] [phone] Social History Tobacco Use Types Packs/Day Years [...] On: 11/09/2019 0:39 EDT by Radha Josue Program Manager [facility]p-Health Unit Coord Intervention Information: oxyCODONE Performed by Radha Josue Program Manager [facility]Health Unit Coord on 11/08/2019 23:39:00 EDT oxyCODONE,10mg Oral,Pain (Moderate 4-6) Pain Assessment Pain Assessment : Follow-up assessment Pain Scale Goal : 2 Pain Scale Used : 0-10 Scale Radha Josue Care Asst-Health Unit Coord - 11/09/2019 4:50 EDT Pain Scale Intensity : 1 Radha Josue Program Manager [facility] Unit Coord - 11/09/2019 4:50 EDT Image 4 - Images currently included in the form version of this document have not been included in the text rendition version of the form. documented in this encounter Plan of Treatment Not on file documented as of this encounter Visit Diagnoses Not on filedocumented in this encounter
--- OUTSIDE RECORDS SUMMARY | 2025-02-21 21:28 | XMS_ITS | Encounter Summary ---
Author Organization [employer] ([place], [place], [place], [place]) Address [address] [place] [address] Care Team Providers Care Commercial Real Estate Assistant Name Role Phone Unavailable Primary Care Provider Unavailabl e Encounter Details Date Type Department Care Team (Late st Contact Info) Description 11/08/2019 Transcribed Document [facility] [place] [address] [place] [address] ProviderAgnieszka MD [address], [place] [id number] Social History Tobacco Use Types Packs/Day Years [...]
--- OUTSIDE RECORDS SUMMARY | 2025-02-21 21:28 | XMS_ITS | Encounter Summary ---
Author Organization [employer] ([place], [place], [place], [place]) Address [address] [place] [address] Care Team Providers Care Packing Room Inspector Name Role Phone Unavailable Primary Care Provider Unavailabl e Encounter Details Date Type Department Care Team (Late st Contact Info) Description 11/09/2019 Transcribed Document [facility] [place] [address] [place] [address] ProviderAgnieszka MD [address], [place] [address] Social History Tobacco Use Types Packs/Day Years [...] On: 11/09/2019 2:59 EDT by [facility] Intervention Information: acetaminophen Performed by Radha Josue [facility] Unit Coord on 11/09/2019 01:59:00 EDT acetaminophen,650mg Oral Pain Assessment Pain Assessment : Follow-up assessment Pain Scale Goal : 2 Pain Scale Used : 0-10 Scale Radha [facility]ue [facility] - 11/09/2019 4:51 EDT documented in this encounter Plan of Treatment Not on file documented as of this encounter Visit Diagnoses Not on filedocumented in this encounter
--- OUTSIDE RECORDS SUMMARY | 2025-02-21 21:28 | XMS_ITS | Encounter Summary ---
Author Organization [employer] ([place], [place], [place], [place]) Address [address] [place] [address] Care Team Providers Care Quill Cleaning Machine Operator Name Role Phone Unavailable Primary Care Provider Unavailabl e Encounter Details Date Type Department Care Team (Late st Contact Info) Description 11/05/2019 Transcribed Document [facility] [place] [address] [place] [address] ProviderAgnieszka MD [address] [place], [place] [id number] Social History Tobacco Use Types Packs/Day Years Used Date Smoking Tobacco: Never Assessed Sex and Gender Information Value Date Recorded Sex Assigned at Not on file Legal Sex Male 2:38 PM CDT Gender Identity Not on file Sexual Orientation Not on file documented as of this encounter Miscellaneous Notes * Cerner Conversion Note - Historical ProviderMD - 11/05/2019 2:00 AM CDT Bus Dispatcher Interstate Details Entered On: 11/05/2019 5:20 EDT Performed [...]
--- OUTSIDE RECORDS SUMMARY | 2025-02-21 21:28 | XMS_ITS | Encounter Summary ---
Author Organization [employer] ([place], [place], [place], [place]) Address [address] [place] [address] Care Team Providers Care Crane Service Technician Name Role Phone Unavailable Primary Care Provider Unavailabl e Encounter Details Date Type Department Care Team (Late st Contact Info) Description 11/05/2019 Transcribed Document [facility] [place] [address] [place] [address] ProviderAgnieszka MD [address], [place] [id number] Social History Tobacco Use Types Packs/Day Years Used Date Smoking Tobacco: Never Assessed Sex and Gender Information Value Date Recorded Sex Assigned at Not on file Legal Sex Male 2:38 PM CDT Gender Identity Not on file Sexual Orientation Not on file documented as of this encounter Miscellaneous Notes * Cerner Conversion Note - Agnieszka ProviderMD - 11/05/2019 9:[address] [facility] Main OR PACU Summary Primary Physician: HEIDE KAT MD-U Finalized Date/Time: 11/05/19 13:46:04 Pt. Name: SIMBA MAYEN JR/Sex: 1950 Male Med Rec #: [id number] Physician: LORENA SAGASTUME MD-INT Financial #: [id number] Pt. Type: I Room/Bed: [facility]/ Admit/Disch: 11/02/19 02:59:00 - Institution: [facility] Main OR PACU I Case Times Entry 1 In PACU I 11/05/19 12:11:00 Ready for PACU 11/05/19 13:40:00 Discharge Discharge from PACU 11/05/19 13:40:00 I Last Modified By: Danelle Fam RN 11/05/19 13:44:22 Finalized By: Danelle Fam, RN Document Signatures Signed By: Danelle Fam RN 11/05/19 13:46 Electronically signed by Taryn [facility] Conversion Supervisor Sewing Room Cerner at 11/12/2022 9:32 PM CDT documented in this encounter Plan of Treatment Not on file documented as of this encounter Visit Diagnoses Not on filedocumented in this encounter
--- OUTSIDE RECORDS SUMMARY | 2025-02-21 21:28 | XMS_ITS | Encounter Summary ---
Author Organization [employer] ([place], [place], [place], [place]) Address [address] [place] [address] Care Team Providers Care Horticultural Farm Manager Name Role Phone Unavailable Primary Care Provider Unavailabl e Encounter Details Date Type Department Care Team (Late st Contact Info) Description 11/05/2019 Transcribed Document [facility] [place] Medicine [facility] [place] [address] ProviderAgnieszka MD [address], [place] [phone] Social History Tobacco Use Types Packs/Day Years [...]
--- OUTSIDE RECORDS SUMMARY | 2025-02-21 21:28 | XMS_ITS | Encounter Summary ---
Author Organization [employer] ([place], [place], [place], [place]) Address [address] [place] [address] Care Team Providers Care Pm Technician Name Role Phone Unavailable Primary Care Provider Unavailabl e Encounter Details Date Type Department Care Team (Late st Contact Info) Description 11/09/2019 Transcribed Document [facility] [place] [address] [place] [address] ProviderAgnieszka MD [address] [place], [place] [address] Social History Tobacco Use Types Packs/Day Years Used Date Smoking Tobacco: Never Assessed Sex and Gender Information Value Date Recorded Sex Assigned at Not on file Legal Sex Male 2:38 PM CDT Gender Identity Not on file Sexual Orientation Not on file documented as of this encounter Miscellaneous Notes * Cerner Conversion Note - Historical ProviderMD - 11/09/2019 2:00 AM CDT Phone Representative Details Entered On: 11/09/2019 4:51 EDT Performed On: 11/09/2019 2:00 EDT by Radha Josue [facility] Order Details Transport Mode Order Detail : Stretcher/Gurney Isolation Precautions Order Detail : Standard Precautions Order Detail : N/A IV Order Detail : 0 Oxygen Order Detail : 0 Nurse Collect Order Detail : 1 Lift/Transfer : Independent Central Line Order Detail : Yes Room Service : Not Appropriate Arterial Line : No Radha Josue [facility] - 11/09/2019 4:51 EDT documented in this encounter Plan of Treatment Not on file documented as of this encounter Visit Diagnoses Not on filedocumented in this encounter
--- OUTSIDE RECORDS SUMMARY | 2025-02-21 21:28 | XMS_ITS | Encounter Summary ---
Author Organization [employer] ([place], [place], [place], [place]) Address [address] [place] [address] Care Team Providers Care Durable Medical Equipment Technician Name Role Phone Unavailable Primary Care Provider Unavailabl e Encounter Details Date Type Department Care Team (Late st Contact Info) Description 11/05/2019 Transcribed Document [facility] [place] Family Medicine [address] [place] [address] ProviderAgnieszka MD [address] [place], [place] [id number] Social History Tobacco Use Types Packs/Day Years Used Date Smoking Tobacco: Never Assessed Sex and Gender Information Value Date Recorded Sex Assigned at Not on file Legal Sex Male 2:38 PM CDT Gender Identity Not on file Sexual Orientation Not on file documented as of this encounter Miscellaneous Notes * Cerner Conversion Note - Agnieszka ProviderMD - 11/05/2019 9:27 AM CDT [facility] Main OR Preop Summary Primary Physician: HEIDE KAT MD-U Finalized Date/Time: 11/05/19 12:33:22 Pt. Name: SIMBA MAYEN JR/Sex: 1950 Male Med Rec #: [id number] Physician: LORENA SAGASTUME MD-INT Financial #: [id number] Pt. Type: I Room/Bed: [facility]/ Admit/Disch: 11/02/19 02:59:00 - Institution: [facility] PreOp Case Times Entry 1 In Preop 11/05/19 06:54:00 Ready for Holding n/a Room Patient Ready for 11/05/19 07:32:00 Surgery Patient Out of Preop 11/05/19 08:23:00 Patient Out of n/a Holding Room Last Modified By: Danelle Parekh, Nurse Second Chef 11/05/19 12:33:[address] [facility] PreOp Case Times Audit 11/05/19 12:33:18 Samples And Repairs Preparer: ASHKAN Modifier: [id number] <+> 1 Patient Out of Preop Finalized By: Danelle Parekh, Nurse Software Team Leader Signatures Signed By: Danelle Parekh, Nurse Second Chef 11/05/19 12:33 Electronically signed by Taryn [facility] Conversion Curriculum And Assessment Director Cerner at 11/12/2022 9:36 PM CDT documented in this encounter Plan of Treatment Not on file documented as of this encounter Visit Diagnoses Not on filedocumented in this encounter
--- OUTSIDE RECORDS SUMMARY | 2025-02-21 21:29 | XMS_ITS | Encounter Summary ---
Author Organization [employer] ([place], [place], [place], [place]) Address [address] [place] [address] Care Team Providers Care Auxiliary Power Equipment Operator Name Role Phone Unavailable Primary Care Provider Unavailabl e Encounter Details Date Type Department Care Team (Late st Contact Info) Description 11/03/2019 Transcribed Document [facility] [place] [facility] [place] [address] ProviderAgnieszka MD [address], [place] [phone] Social History Tobacco Use Types Packs/Day Years [...] 1950 Associated Diagnoses: None Author: BROOKS GORE, [facility] 69yoM with Low Back Pain - [...]
--- OUTSIDE RECORDS SUMMARY | 2025-02-21 21:29 | XMS_ITS | Encounter Summary ---
Author Organization [employer] ([place], [place], [place], [place]) Address [address] [place] [address] Care Team Providers Care Cell Stripper Final Name Role Phone Unavailable Primary Care Provider Unavailabl e Encounter Details Date Type Department Care Team (Late st Contact Info) Description 12/22/2018 Transcribed Document [facility] [place] [facility] [place] [address] ProviderAgnieszka MD [address], [place] [id number] Social History Tobacco Use Types Packs/Day Years [...]
--- OUTSIDE RECORDS SUMMARY | 2025-02-21 21:29 | XMS_ITS | Encounter Summary ---
Author Organization [employer] ([place], [place], [place], [place]) Address [address] [place] [address] Care Team Providers Care Autocad Electrical Designer Name Role Phone Unavailable Primary Care Provider Unavailabl e Encounter Details Date Type Department Care Team (Late st Contact Info) Description 11/06/2019 Transcribed Document [facility] [place] [address] [place] [address] ProviderAgnieszka MD [address], [place] [id number] Social History Tobacco Use Types Packs/Day Years [...] MOE PAIGE RN - 11/06/2019 10:53 EDT documented in this encounter Plan of Treatment Not on file documented as of this encounter Visit Diagnoses Not on filedocumented in this encounter
--- OUTSIDE RECORDS SUMMARY | 2025-02-21 21:29 | XMS_ITS | Encounter Summary ---
Author Organization [employer] ([place], [place], [place], [place]) Address [address] [place] [address] Care Team Providers Care Property Accountant Name Role Phone Unavailable Primary Care Provider Unavailabl e Encounter Details Date Type Department Care Team (Late st Contact Info) Description 11/06/2019 Transcribed Document [facility] Neurology - [address] [facility] [address] [place] [address] [place] [address] [place] [address] Social History Tobacco Use Types Packs/Day [...] 36.4 \ Radiology Results (Last 48 hours) [id number] -- 11/02/2019 02:59 CR Fluoro in OR [...]
--- OUTSIDE RECORDS SUMMARY | 2025-02-21 21:29 | XMS_ITS | Encounter Summary ---
Author Organization [employer] ([place], [place], [place], [place]) Address [address] [place] [address] Care Team Providers Care Newswriter Name Role Phone Unavailable Primary Care Provider Unavailabl e Encounter Details Date Type Department Care Team (Late st Contact Info) Description 11/07/2019 Transcribed Document [facility] [place] [address] [place] [address] ProviderAgnieszka MD [address] [place], [place] [address] Social History Tobacco Use Types Packs/Day Years [...] Geno Whipple RN - 11/08/2019 0:22 EDT documented in this encounter Plan of Treatment Not on file documented as of this encounter Visit Diagnoses Not on filedocumented in this encounter
--- OUTSIDE RECORDS SUMMARY | 2025-02-21 21:29 | XMS_ITS | Encounter Summary ---
Author Organization [employer] ([place], [place], [place], [place]) Address [address] [place] [address] Care Team Providers Care Local Company Intermodal Truck Driver Name Role Phone Unavailable Primary Care Provider Unavailabl e Encounter Details Date Type Department Care Team (Late st Contact Info) Description 11/03/2019 Transcribed Document [facility] [place] Family Medicine [address] [place] [address] ProviderAgnieszka MD [address], [place] [id number] Social History Tobacco Use Types Packs/Day Years [...] Insurance 1 Health Plan: MEDICARE Policy Number: [id number] Authorization Number: Insurance 2 Health Plan: FOR LIFE Policy Number: [id number] Authorization Number: Insurance Primary Name : MEDICARE Policy Number: [id number] Authorized Service Begin Date-Primary : 11/02/2019 EDT Historical Authorization Comments-Primary : No Authorization Comments Found SIMÓN MUSA RN - 11/03/2019 12:44 EDT documented in this encounter Plan of Treatment Not on file documented as of this encounter Visit Diagnoses Not on filedocumented in this encounter
--- OUTSIDE RECORDS SUMMARY | 2025-02-21 21:29 | XMS_ITS | Encounter Summary ---
Author Organization [employer] ([place], [place], [place], [place]) Address [address] [place] [address] Care Team Providers Care Structural Steel Worker Name Role Phone Unavailable Primary Care Provider Unavailabl e Encounter Details Date Type Department Care Team (Late st Contact Info) Description 12/23/2018 Transcribed Document [facility] [place] [address] [place] [address] ProviderAgnieszka MD [address] [place] [address] Social History Tobacco Use Types [...] BRIGID KARLEY KEEN - 12/24/2018 14:59 EDT Blind Eyeletter Goals Mobility/Bed Mobility LTG PT Grid Goal [...] OSMANI RAINEY PTA - 12/24/2018 14:59 EDT [place] PT Charges PT Therap. Exercise 15 min : 1 PT Ther Activities Ea 15 Min : 1 OSMANI RAINEY PTA - 12/24/2018 14:59 EDT Electronically signed by Gay Cneteno Conversion [employer] Tuber Machine Operator Cerner at 11/15/2022 9:21 AM CDT documented in this encounter Plan of Treatment Not on file documented as of this encounter Visit Diagnoses Not on filedocumented in this encounter
--- OUTSIDE RECORDS SUMMARY | 2025-02-21 21:29 | XMS_ITS | Encounter Summary ---
Author Organization [employer] ([place], [place], [place], [place]) Address [address] [place] [address] Care Team Providers Care Washer Blanket Name Role Phone Unavailable Primary Care Provider Unavailabl e Encounter Details Date Type Department Care Team (Late st Contact Info) Description 12/22/2018 Transcribed Document [facility] Neurology - [address] [facility] [address] [place] [id number] Mark Akers MD [address] [place] [address] Social History Tobacco Use Types [...] CT scan with stereotactic navigation using the CenTrak. SURGEON: Mark Akers MD REFRIGERATION SYSTEMS INSTALLER: Bing Colon TYPE OF ANESTHESIA: GEA. DESCRIPTION [...] to iliac trajectory. With all instrument the Laserlike system was utilized. With all screws in [...] M.D. CC2: Dr. Faustino Jones; [address] , [facility], [address], [place] [address] documented in this encounter Plan of Treatment Not on file documented as of this encounter Visit Diagnoses Not on filedocumented in this encounter
--- OUTSIDE RECORDS SUMMARY | 2025-02-21 21:29 | XMS_ITS | Encounter Summary ---
Author Organization [employer] ([place], [place], [place], [place]) Address [address] [place] [address] Care Team Providers Care Cup Machine Operator Name Role Phone Unavailable Primary Care Provider Unavailabl e Encounter Details Date Type Department Care Team (Late st Contact Info) Description 11/03/2019 Transcribed Document [facility] Family Medicine [address] [place] [address] ProviderAgnieszka MD [address], [place] [phone] Social History Tobacco Use Types Packs/Day Years Used Date Smoking Tobacco: Never Assessed Sex and Gender Information Value Date Recorded Sex Assigned at Not on file Legal Sex Male 2:38 PM CDT Gender Identity Not on file Sexual Orientation Not on file documented as of this encounter Miscellaneous Notes * [employer]ner Conversion Note - Historical ProviderMD - 11/03/2019 2:00 AM CDT Tooling Manager Details Entered On: 11/03/2019 0:41 EDT Performed [...]
--- OUTSIDE RECORDS SUMMARY | 2025-02-21 21:29 | XMS_ITS | Encounter Summary ---
Author Organization [employer] ([place], [place], [place], [place]) Address [address] [place] [address] Care Team Providers Care Bowling Alley Refinisher Name Role Phone Unavailable Primary Care Provider Unavailabl e Encounter Details Date Type Department Care Team (Late st Contact Info) Description 12/22/2018 Transcribed Document [facility] Radiology [address] [place] [address] Ivana Salcido MD [facility] [address] [address] Social History Tobacco Use Types [...] : 1950 Associated Diagnoses: None Author: Rylee Cuadra APRN 12/22/18 cc: medical management - awaiting [id number] PLIF per Dr. Akers S: Patient in pre-op. present. Denies F/C/S. Denies SOA or chest pain. Denies headaches. Denies N/V/D. Denies constipation. Denies pain. Denies tobacco or ETOH use. Denies anxiety/depression. Denies any concerns at this time. HPI: Patient is a 68 yo male admitted to [facility] per Dr. Oswald for a [id number] PLIF. Preoperatively patient was found to have [...] (Past 24 Hours) Impression: spondylolisthesis Lspine; awaiting [id number] PLIF per Dr. Akers hx Arthritis hx [...] conjunction with Joselyn Salcido MD *Scribed by Falvia Sargent documented in this encounter Plan of Treatment Not on file documented as of this encounter Visit Diagnoses Not on filedocumented in this encounter
--- OUTSIDE RECORDS SUMMARY | 2025-02-21 21:29 | XMS_ITS | Encounter Summary ---
Author Organization [employer] ([place], [place], [place], [place]) Address [address] [place] [address] Care Team Providers Care Batch Attendant Name Role Phone Unavailable Primary Care Provider Unavailabl e Encounter Details Date Type Department Care Team (Late st Contact Info) Description 11/06/2019 Transcribed Document [facility] [place] [address] [place] [address] ProviderAgnieszka MD [address], [place] [phone] Social History Tobacco Use Types Packs/Day Years [...]
--- OUTSIDE RECORDS SUMMARY | 2025-02-21 21:29 | XMS_ITS | Encounter Summary ---
Author Organization [employer] ([place], [place], [place], [place]) Address [address] [place] [address] Care Team Providers Care Screw Machine Hand Name Role Phone Unavailable Primary Care Provider Unavailabl e Encounter Details Date Type Department Care Team (Late st Contact Info) Description 12/23/2018 Transcribed Document [facility] [place] [facility] [place] [address] ProviderAgnieszka MD [address] [place] [address] Social History Tobacco Use Types [...] : 12/22/2018 06:36 Co-treated by, OT : lens assistant (ROTARY FILTER OPERATOR) Personal Devices : Personal Devices No Devices [...] MARY MULLER OTR/Lc - 12/24/2018 15:34 EDT [facility] Goals, OT Grooming LTG Grid Goal #1 [...] or set up Equipment : Long Handled Risk Assessor, Sock aid, Long handled shoehorn Date to [...] MARY MULLER OTR/Lc - 12/24/2018 15:34 EDT [place] OT Charges OT Selfcare/Hm Mgmt Ea 15 Min : 2 MARY MULLER OTR/Lc - 12/24/2018 15:34 EDT documented in this encounter Plan of Treatment Not on file documented as of this encounter Visit Diagnoses Not on filedocumented in this encounter
--- OUTSIDE RECORDS SUMMARY | 2025-02-21 21:29 | XMS_ITS | Encounter Summary ---
Author Organization [employer] ([place], [place], [place], [place]) Address [address] [place] [address] Care Team Providers Care Hvac Project Engineer Name Role Phone Unavailable Primary Care Provider Unavailabl e Encounter Details Date Type Department Care Team (Late st Contact Info) Description 12/22/2018 Transcribed Document [facility] [address] [place] [address] ProviderAgnieszka MD [address] [place], [place] [phone] Social History Tobacco Use Types Packs/Day Years Used Date Smoking Tobacco: Never Assessed Sex and Gender Information Value Date Recorded Sex Assigned at Not on file Legal Sex Male 2:38 PM CDT Gender Identity Not on file Sexual Orientation Not on file documented as of this encounter Miscellaneous Notes * Cerner Conversion Note - Historical ProviderMD - 12/22/2018 1:14 PM CDT [facility] Main OR Preop Summary Primary Physician: HEIDE KAT MD-SNU Finalized Date/Time: 12/22/18 15:35:45 Pt. Name: SIMBA MAYEN JR/Sex: 1950 Male Med Rec #: [id number] Physician: HEIDE KAT MD-DIVYA Financial #: [id number] Pt. Type: I Room/Bed: ASA/3 Admit/Disch: 12/22/18 06:36:00 - Institution: [facility] PreOp Case Times Entry 1 In Preop 12/22/18 07:58:00 Ready for Holding n/a Room Patient Ready for 12/22/18 10:27:00 Surgery Patient Out of Preop 12/22/18 12:34:00 Patient Out of n/a Holding Room Last Modified By: GIANLUCA HERRON RN 12/22/18 15:35:43 [facility] PreOp Case Times Audit 12/22/18 15:35:43 Weigher Packing: [email or web address] Modifier: EVELYN <+> 1 Patient Out of Preop Finalized By: GIANLUCA HERRON, RN Document Signatures Signed By: GIANLUCA HERRON RN 12/22/18 15:35 documented in this encounter Plan of Treatment Not on file documented as of this encounter Visit Diagnoses Not on filedocumented in this encounter
--- OUTSIDE RECORDS SUMMARY | 2025-02-21 21:29 | XMS_ITS | Encounter Summary ---
Author Organization [employer] ([place], [place], [place], [place]) Address [address] [place] [address] Care Team Providers Care Market Research Interviewer Name Role Phone Unavailable Primary Care Provider Unavailabl e Encounter Details Date Type Department Care Team (Late st Contact Info) Description 11/07/2019 Transcribed Document [facility] [place] [address] [place] [address] ProviderAgnieszka MD [address], [place] [address] Social History Tobacco Use Types Packs/Day Years [...]
--- OUTSIDE RECORDS SUMMARY | 2025-02-21 21:29 | XMS_ITS | Encounter Summary ---
Author Organization [employer] ([place], [place], [place], [place]) Address [address] [place] [address] Care Team Providers Care Certified Surgical Technologist Name Role Phone Unavailable Primary Care Provider Unavailabl e Encounter Details Date Type Department Care Team (Late st Contact Info) Description 11/02/2019 Transcribed Document [facility] [place] [facility] [place] [address] ProviderAgnieszka MD [address], [place] [phone] Social History Tobacco Use Types Packs/Day Years [...] : 3 - Urgent Tracking Group : [facility] ED Danelle Maya RN - 11/02/2019 0:47 [...] 11/02/2019 00:50:04 EDT) Problems(Active) Arthritis (SNOMED CT :3753838 ) Name of Problem: Arthritis ; Recorder: MILTON GAMEZ RN; Confirmation: Confirmed ; Classification: Medical ; Code: [id number] ; Contributor System: Rangespan ; Last Updated: 12/16/2018 11:30 EDT ; Life Cycle Date: 12/16/2018 ; Life Cycle Status: Active ; Vocabulary: SNOMED CT Colitis (SNOMED CT :3056261583 ) Name of Problem: Colitis ; Recorder: MILTON GAMEZ RN; Confirmation: Confirmed ; Classification: Medical ; Code: [id number] ; Contributor System: Rangespan ; Last Updated: 12/16/2018 11:30 EDT ; Life Cycle Date: 12/16/2018 ; Life Cycle Status: Active ; Vocabulary: SNOMED CT DJD (degenerative joint disease) of thoracic spine (SNOMED CT :7653006316 ) Name of Problem: DJD (degenerative joint disease) of thoracic spine ; Recorder: MILTON GAMEZ RN; Confirmation: Confirmed ; Classification: Medical ; Code: [id number] ; Contributor System: [email or web address] ; Last Updated: 12/16/2018 11:30 EDT ; Life Cycle Date: 12/16/2018 ; Life Cycle Status: Active ; Vocabulary: SNOMED CT History of obstructive sleep apnea (IMO :76139742 ) Name of Problem: History of obstructive sleep apnea ; Recorder: SYSTEM, SYSTEM; Confirmation: Confirmed ; Classification: Medical ; Code: 56881580 ; Last Updated: 12/16/2018 11:47 EDT ; Life Cycle Date: 12/16/2018 ; Life Cycle Status: Active ; Vocabulary: IMO Parkinson disease (SNOMED CT :44873198 ) Name of Problem: Parkinson disease ; Recorder: MILTON GAMEZ RN; Confirmation: Confirmed ; Classification: Medical ; Code: 25019400 ; Contributor System: Rangespan ; Last Updated: 12/16/2018 11:28 EDT ; Life Cycle Date: 12/16/2018 ; Life Cycle Status: Active ; Vocabulary: SNOMED CT Scoliosis (SNOMED CT :728293458 ) Name of Problem: Scoliosis ; Recorder: MILTON GAMEZ RN; Confirmation: Confirmed ; Classification: Medical ; Code: [id number] ; Contributor System: Rangespan ; Last Updated: 12/16/2018 11:29 EDT ; Life Cycle Date: 12/16/2018 ; Life Cycle Status: Active ; Vocabulary: SNOMED CT Diagnoses(Active) Back pain Date: 11/02/2019 ; Diagnosis Type: Reason For Visit ; Confirmation: Complaint of ; Clinical Dx: Back pain ; Classification: Medical ; Clinical Service: Non-Specified ; Code: PNED ; Probability: 0 ; Diagnosis Code: [id number] ED Height and Weight Height Source : Stated Height Entry Format : [place] Height, Feet : 5 ft(Converted to: 152 cm, 60 Inch) Height, Inches : 9 Inch(Converted to: 0 ft 9 Inch, 22.86 cm) Clinical Height : 175.26 cm Weight Source, ED : Critical estimated dosing weight Weight Entry Format : [place] Weight, Pounds : 205 lb Clinical Dosing Weight : 93.18 kg Body Surface Area (BSA) : 2.09 m2 Body Mass Index : 30.3 kg/m2 ([place]) [place] Body Weight (IBW) : 69.73 kg Danelle Maya RN - 11/02/2019 0:47 EDT documented in this encounter Plan of Treatment Not on file documented as of this encounter Visit Diagnoses Not on filedocumented in this encounter
--- OUTSIDE RECORDS SUMMARY | 2025-02-21 21:29 | XMS_ITS | Encounter Summary ---
Author Organization [employer] ([place], [place], [place], [place]) Address [address] [place] [address] Care Team Providers Care Virtualization Architect Name Role Phone Unavailable Primary Care Provider Unavailabl e Encounter Details Date Type Department Care Team (Late st Contact Info) Description 11/07/2019 Transcribed Document [facility] [place] [address] [place] [address] ProviderAgnieszka MD [address] [place], [place] [address] Social History Tobacco Use Types Packs/Day Years [...]
--- OUTSIDE RECORDS SUMMARY | 2025-02-21 21:29 | XMS_ITS | Encounter Summary ---
Author Organization [employer] ([place], [place], [place], [place]) Address [address] [place] [address] Care Team Providers Care Grades 1 Thru 6 Visiting Teacher Name Role Phone Unavailable Primary Care Provider Unavailabl e Encounter Details Date Type Department Care Team (Late st Contact Info) Description 11/06/2019 Transcribed Document [facility] [place] [address] [place] [address] ProviderAgnieszka MD [address] [place], [place] [phone] Social History Tobacco Use Types Packs/Day Years [...]
--- OUTSIDE RECORDS SUMMARY | 2025-02-21 21:29 | XMS_ITS | Encounter Summary ---
Author Organization [employer] ([place], [place], [place], [place]) Address [address] [place] [address] Care Team Providers Care It Administrative Assistant Name Role Phone Unavailable Primary Care Provider Unavailabl e Encounter Details Date Type Department Care Team (Late st Contact Info) Description 11/07/2019 Transcribed Document [facility] [place] [address] [place] [address] ProviderAgnieszka MD [address] [place], [place] [address] Social History Tobacco Use Types Packs/Day Years [...]
--- OUTSIDE RECORDS SUMMARY | 2025-02-21 21:29 | XMS_ITS | Encounter Summary ---
Author Organization [employer] ([place], [place], [place], [place]) Address [address] [place] [address] Care Team Providers Care Intermodal Truck Driver Name Role Phone Unavailable Primary Care Provider Unavailabl e Encounter Details Date Type Department Care Team (Late st Contact Info) Description 11/02/2019 Transcribed Document [facility] [place] [address] ProviderAgnieszka MD [address], [place] [phone] Social History Tobacco Use Types Packs/Day Years [...] [place] Emergency Contact #2 Phone Number : [phone] Emergency Contact #2 Relationship : Mother Chief Complaint : presents w/ lower and upper back spasms x 3-4 days Information Obtained From : Patient Primary Language : Nepali Communication Barrier : None Joyce Melendez RN [...] Scale Risk Level : 25-45 Medium Risk [place] Fall Interventions : Adequate lighting, Assistive devices [...] Source : Stated Height Entry Format : [place] Height, Feet : 5 ft(Converted to: 152 cm, 60 Inch) Height, Inches : 9 Inch(Converted to: 0 ft 9 Inch, 22.86 cm) Clinical Height : 175.26 cm Weight Source : Standing scale Weight Entry Format : [place] Clinical Dosing Weight : 81.08 kg Weight, Pounds : 178 lb Weight, Ounces : 6 oz Body Surface Area (BSA) : 1.97 m2 Body Mass Index : 26.4 kg/m2 ([place]) [place] Body Weight : 70 kg Joyce Melendez [...] Joyce Melendez RN - 11/02/2019 3:36 EDT [place] Suicide Severity Rating Scale (C-SSRS) CSSRS Past [...] Joyce Melendez RN - 11/02/2019 3:36 EDT Electronically signed by Gay Centeno Conversion [employer] Guidance Counselor Cerner at 11/12/2022 9:55 PM CDT documented in this encounter Plan of Treatment Not on file documented as of this encounter Visit Diagnoses Not on filedocumented in this encounter
--- OUTSIDE RECORDS SUMMARY | 2025-02-21 21:29 | XMS_ITS | Encounter Summary ---
Author Organization [employer] ([place], [place], [place], [place]) Address [address] [place] [address] Care Team Providers Care Airfield Operations Specialist Name Role Phone Unavailable Primary Care Provider Unavailabl e Encounter Details Date Type Department Care Team (Late st Contact Info) Description 11/06/2019 Transcribed Document [facility] [place] Medicine [address] [place] [address] ProviderAgnieszka MD [address] [place], [place] [address] Social History Tobacco Use Types Packs/Day Years Used Date Smoking Tobacco: Never Assessed Sex and Gender Information Value Date Recorded Sex Assigned at Not on file Legal Sex Male 2:38 PM CDT Gender Identity Not on file Sexual Orientation Not on file documented as of this encounter Miscellaneous Notes * Cerner Conversion Note - Historical ProviderMD - 11/06/2019 1:02 PM CDT [facility] Main OR PACU Summary Primary Physician: HEIDE KAT MD-U Finalized Date/Time: 11/06/19 15:35:13 Pt. Name: SIMBA MAYEN JR/Sex: 1950 Male Med Rec #: [id number] Physician: LORENA SAGASTUME MD-INT Financial #: [id number] Pt. Type: I Room/Bed: [facility]/ Admit/Disch: 11/02/19 02:59:00 - Institution: [facility] Main OR PACU I Case Times Entry 1 In PACU I 11/06/19 14:45:00 Ready for PACU 11/06/19 15:20:00 Discharge Discharge from PACU 11/06/19 15:20:00 I Last Modified By: MOE PAIGE RN 11/06/19 15:34:56 [facility] Main OR PACU I Case Times Audit 11/06/19 15:34:56 Jig Boring Machine Set Up Operator: KURTIS Modifier: KURTIS <+> 1 Ready for PACU Discharge <+> 1 Discharge from PACU I [facility] Main OR PACU Acuity Entry 1 Start Time 11/06/19 14:45:00 Stop Time 11/06/19 15:20:00 Acuity Level [facility] PACU Acuity I Last Modified By: MOE PAIGE RN 11/06/19 15:35:11 [facility] Main OR PACU Acuity Audit 11/06/19 15:35:11 Jig Boring Machine Set Up Operator: KURTIS Modifier: KURTIS <+> 1 Stop Time Finalized By: MOE PAIGE, RN Document Signatures Signed By: MOE PAIGE RN 11/06/19 15:35 Electronically signed by [facility] Conversion Stone Banker Cerner at 11/12/2022 9:29 PM CDT documented in this encounter Plan of Treatment Not on file documented as of this encounter Visit Diagnoses Not on filedocumented in this encounter
--- OUTSIDE RECORDS SUMMARY | 2025-02-21 21:29 | XMS_ITS | Encounter Summary ---
Author Organization [employer] ([place], [place], [place], [place]) Address [address] [place] [address] Care Team Providers Care Small Business Director Name Role Phone Unavailable Primary Care Provider Unavailabl e Encounter Details Date Type Department Care Team (Late st Contact Info) Description 11/06/2019 Transcribed Document [facility] [place] [facility] [address] ProviderAgnieszka MD [address] [place], [place] [address] Social History Tobacco Use Types Packs/Day Years [...] mL: 2 Gram, 200 mL/Hr, IV Piggyback, [id number] docusate sodium: 200 mg, Oral, BID fentaNYL: [...] mL: 1,250 mg, 250 mL/Hr, IV Piggyback, [id number] Pending Complete fentaNYL: 25 mcg, IV Push, Q10Min Documented Medications Documented Azilect 1 mg oral tablet: 1 Tab, Oral, Daily, 30 Tab, 0 Refill(s) Remicade: 10 mg/kg, IntraVENous, [id number], for Ulcerative Colitis; Last dose: 09/29/2019, 0 [...] *MBP* 100 mL 2 Gram, IV Piggyback, [id number] docusate sodium 100 mg cap 200 mg 2 Cap, Oral, BID lactobacillus acidophilus cap 1 Cap, Oral, Daily rasagiline 1 mg tab 1 mg 1 Tab, Oral, Daily vancomycin + NaCl 0.9% 250 mL 1,250 mg, IV Piggyback, K35UShe Continuous: (1) lactated ringers 1,000 mL 1,000 [...] All Problems Parkinson disease / SNOMED CT 29553424 / Confirmed Scoliosis / SNOMED CT 672623445 / Confirmed Colitis / SNOMED CT 5133906162 / Confirmed Arthritis / SNOMED CT 8968547 / Confirmed DJD (degenerative joint disease) of thoracic spine / SNOMED CT 9418555007 / Confirmed History of obstructive sleep apnea / IMO 54838845 / Confirmed, Active Problems (6) Arthritis Colitis [...]
--- OUTSIDE RECORDS SUMMARY | 2025-02-21 21:29 | XMS_ITS | Encounter Summary ---
Author Organization [employer] ([place], [place], [place], [place]) Address [address] [place] [address] Care Team Providers Care Bingo Floater Name Role Phone Unavailable Primary Care Provider Unavailabl e Encounter Details Date Type Department Care Team (Late st Contact Info) Description 11/07/2019 Transcribed Document [facility] [place] [address] [place] [address] ProviderAgnieszka MD [address], [place] [phone] Social History Tobacco Use Types Packs/Day Years [...]
--- OUTSIDE RECORDS SUMMARY | 2025-02-21 21:29 | XMS_ITS | Encounter Summary ---
Author Organization [employer] ([place], [place], [place], [place]) Address [address] [place] [address] Care Team Providers Care Wireless Retail Manager Name Role Phone Unavailable Primary Care Provider Unavailabl e Encounter Details Date Type Department Care Team (Late st Contact Info) Description 11/02/2019 Transcribed Document [facility] [place] Family Medicine [address] [place] [address] ProviderAgnieszka MD [address] [place], [place] [address] Social History Tobacco Use Types Packs/Day Years [...] On: 11/02/2019 12:45 EDT by ELKE VELÁZQUEZ Pottery Decoration Designer-Hat Marker Initial Assessment I Previously Documented Living Environment : No qualifying data available. Living Situation : Home Patient Lives With : Spouse Is the Patient a Caregiver at Home? : No Employment/Vocation : Retired Emergency Contact #1 : Marlys Mason Emergency Contact #1 Emergency Contact #1 Relationship : Emergency Contact #2 : Lexii Mason Emergency Contact #2 Phone Number : [phone] Emergency Contact #2 Relationship : Mother Enter Doctors Name : Dr. Faustino Jones Does Patient have PCP Listed? : Yes Legal Guardian : No Is Guardianship Needed : No ELKE VELÁZQUEZ Pottery Decoration Designer-Hat Marker - 11/02/2019 12:45 EDT Initial Assessment II Sensory and Motor Deficits : Other: Parkinson's Current Home Treatments and Equipment : None LEKE VELÁZQUEZ Pottery Decoration Designer-Hat Marker - 11/02/2019 12:45 EDT Discharge Needs I Anticipated Discharge To, CM : Home independently Current Home Treatment/Equipment : Current Home Treatment/Equipment No qualifying data available. Post Acute/Home Treatments : None Documentation Status Complete : Yes ELKE VELÁZQUEZ Pottery Decoration Designer-Hat Marker - 11/02/2019 12:45 EDT Discharge Needs II Professional Skilled Services : Professional Skilled Services No qualifying data available. Needs Assistance with Transportation : No Discharge Options Discussed with Patient : Acute rehabilitation, Discharge transportation, DME, Home Health, Short term rehabilitation ELKE VELÁZQUEZ Pottery Decoration Designer-Hat Marker - 11/02/2019 12:45 EDT Narrative Note Narrative Note : Patient is a low readmission risk of 34. Patient reported that he has HH in the past through [facility]. Patient reported that he has also been to [facility] in the past. Both of these services were last November. Patient stated that he is ADL independent. He stated that his can transport him home. Patient denied expecting to need any services at discharge. CM will continue to follow. ELKE VELÁZQUEZ Pottery Decoration Designer-Hat Marker - 11/02/2019 12:45 EDT documented in this encounter Plan of Treatment Not on file documented as of this encounter Visit Diagnoses Not on filedocumented in this encounter
--- OUTSIDE RECORDS SUMMARY | 2025-02-21 21:29 | XMS_ITS | Encounter Summary ---
Author Organization [employer] ([place], [place], [place], [place]) Address [address] [place] [address] Care Team Providers Care Seat Covers Trimmer Name Role Phone Unavailable Primary Care Provider Unavailabl e Encounter Details Date Type Department Care Team (Late st Contact Info) Description 11/02/2019 Transcribed Document [facility] [place] Family Medicine [address] [place] [address] ProviderAgnieszka MD [address], [place] [address] Social History Tobacco Use Types Packs/Day Years [...]
--- OUTSIDE RECORDS SUMMARY | 2025-02-21 21:29 | XMS_ITS | Encounter Summary ---
Author Organization [employer] ([place], [place], [place], [place]) Address [address] [place] [address] Care Team Providers Care Editor Managing Director Name Role Phone Unavailable Primary Care Provider Unavailabl e Encounter Details Date Type Department Care Team (Late st Contact Info) Description 12/23/2018 Transcribed Document [facility] [place] Family Medicine [facility] [place] [address] ProviderAgnieszka MD [address] [place] [address] Social History Tobacco Use Types [...] MONTEJO RN Intervention Information: morphine Performed by CLIFTNO MONTEJO RN on 12/23/2018 08:20:00 EDT morphine,15mg [...] form. Electronically signed by Gay Centeno Conversion Field Artillery Fire Control Man Cerner at 11/12/2022 9:33 PM CDT documented in this encounter Plan of Treatment Not on file documented as of this encounter Visit Diagnoses Not on filedocumented in this encounter
--- OUTSIDE RECORDS SUMMARY | 2025-02-21 21:29 | XMS_ITS | Encounter Summary ---
Author Organization [employer] ([place], [place], [place], [place]) Address [address] [place] [address] Care Team Providers Care Level Vial Curvature Gauger Name Role Phone Unavailable Primary Care Provider Unavailabl e Encounter Details Date Type Department Care Team (Late st Contact Info) Description 11/03/2019 Transcribed Document [facility] [place] [address] [place] [address] ProviderAgnieszka MD [address] [place], [place] [address] Social History Tobacco Use Types Packs/Day Years [...]
--- OUTSIDE RECORDS SUMMARY | 2025-02-21 21:29 | XMS_ITS | Encounter Summary ---
Author Organization [employer] ([place], [place], [place], [place]) Address [address] [place] [address] Care Team Providers Care Raspberry Checker Name Role Phone Unavailable Primary Care Provider Unavailabl e Encounter Details Date Type Department Care Team (Late st Contact Info) Description 12/22/2018 Transcribed Document [facility] [place] [address] [place] [address] ProviderAgnieszka MD [address] [place], [place] [address] Social History Tobacco Use Types Packs/Day Years [...] ELLIS RD, LD - 12/23/2018 14:53 EDT documented in this encounter Plan of Treatment Not on file documented as of this encounter Visit Diagnoses Not on filedocumented in this encounter
--- OUTSIDE RECORDS SUMMARY | 2025-02-21 21:29 | XMS_ITS | Encounter Summary ---
Author Organization [employer] ([place], [place], [place], [place]) Address [address] [place] [address] Care Team Providers Care Medical Or Surgical Instrument Maker Name Role Phone Unavailable Primary Care Provider Unavailabl e Encounter Details Date Type Department Care Team (Late st Contact Info) Description 11/07/2019 Transcribed Document [facility] [place] Family Medicine [address] [place] [address] ProviderAgnieszka MD [address] [place], [place] [address] Social History Tobacco Use Types Packs/Day Years [...]
--- OUTSIDE RECORDS SUMMARY | 2025-02-21 21:29 | XMS_ITS | Encounter Summary ---
Author Organization [employer] ([place], [place], [place], [place]) Address [address] [place] [address] Care Team Providers Care Behavioral Pediatrician Name Role Phone Unavailable Primary Care Provider Unavailabl e Encounter Details Date Type Department Care Team (Late st Contact Info) Description 11/03/2019 Transcribed Document [facility] [place] [address] [place] [address] ProviderAgnieszka MD [address], [place] [id number] Social History Tobacco Use Types Packs/Day Years [...] On: 11/03/2019 14:41 EDT by OC PRINCE President & Founder Primary Insurance Authorization Authorization and Policy Numbers : Insurance 1 Health Plan: MEDICARE Policy Number: [id number] Authorization Number: Insurance 2 Health Plan: FOR LIFE Policy Number: [id number] Authorization Number: Insurance Primary Name : MEDICARE Policy Number: [id number] Authorized Service Begin Date-Primary : 11/02/2019 EDT Authorization Comments-Primary : patient is scheduled for Lumbar Fusion Posterior on 11/05/2019 Pt is currently admitted as an inpt already on 4A. Historical Authorization Comments-Primary : No Authorization Comments Found OC PRINCE, President & Founder - 11/03/2019 14:41 EDT documented in this encounter Plan of Treatment Not on file documented as of this encounter Visit Diagnoses Not on filedocumented in this encounter
--- OUTSIDE RECORDS SUMMARY | 2025-02-21 21:29 | XMS_ITS | Encounter Summary ---
Author Organization [employer] ([place], [place], [place], [place]) Address [address] [place] [address] Care Team Providers Care Cuff Matcher Name Role Phone Unavailable Primary Care Provider Unavailabl e Encounter Details Date Type Department Care Team (Late st Contact Info) Description 11/07/2019 Transcribed Document [facility] [place] [address] [place] [address] ProviderAgnieszka MD [address] [place], [place] [address] Social History Tobacco Use Types Packs/Day Years [...]
--- OUTSIDE RECORDS SUMMARY | 2025-02-21 21:29 | XMS_ITS | Encounter Summary ---
Author Organization [employer] ([place], [place], [place], [place]) Address [address] [place] [address] Care Team Providers Care Supervisor Glycerin Name Role Phone Unavailable Primary Care Provider Unavailabl e Encounter Details Date Type Department Care Team (Late st Contact Info) Description 12/22/2018 Transcribed Document [facility] [place] Family Medicine [address] [place] [address] ProviderAgnieszka MD [address], [place] [id number] Social History Tobacco Use Types Packs/Day Years [...] Sleep apnea Orders: with brace Nate Woodard [facility] - 12/23/2018 11:06 EDT Visit Type, PT : Initial evaluation Patient Orders : Order Date Order Ordering MD 12/22/2018 17:40 Physical Therapy Eval and Treat Ordered By: HEIDE KAT MD-SNLanie Active Diagnoses : No Qualifying Diagnoses Admission Date : 12/22/2018 06:36 Personal Devices : Personal Devices No Devices Recorded Assistive Devices : Assistive Devices No Devices Recorded [facility] - 12/23/2018 10:57 EDT General Status Patient [...] Treatment Time : 29 Minute(s) [facility] - 12/23/2018 11:06 EDT History and Environment Living Situation, Therapy : Home Patient Lives With : Spouse Persons Assisting Patient at Home : Spouse Persons Providing Information : Patient Home Equipment Therapy, PT : None Home Setup : One story Stairs : No [facility] - 12/23/2018 11:06 EDT Prior Level of Function PT GRID Prior LOF Ambulation, Household : Independent Prior LOF Ambulation, Community : Independent Prior LOF Bed Mobility : Independent Prior LOF Toileting : Independent Prior LOF Transfer : Independent [facility] - 12/23/2018 11:06 EDT Intervention Summary O2 Pre-Intervention : 2L O2 NC SpO2 Pre-Intervention : 100 % O2 During Intervention : Room air SpO2 During Intervention : 97 % O2 Post-Intervention : Room air. Nsg notified SpO2 Post-Intervention : 96 % Nate Woodard [facility] - 12/23/2018 11:06 EDT Lower Extremity RLE Active ROM : WFL LLE Active ROM : WFL Nate Woodard, [facility] - 12/23/2018 11:06 EDT Right Lower Extremity MMT Knee Flexion (0-140) : 4/good Knee Extension (0-0) : 4/good Ankle Dorsiflexion (0-20) : 4/good Ankle Plantarflexion (0-45) : 4/good [facility] - 12/23/2018 11:06 EDT Left Lower Extremity MMT Knee Flexion (0-140) : 4/good Knee Extension (0-0) : 4/good Ankle Dorsiflexion (0-20) : 4/good Ankle Plantarflexion (0-45) : 4/good Nate Woodard, [facility] - 12/23/2018 11:06 EDT Functional Mobility Mobility Grid Bed Roll Right : Rehab Moderate assistance Bed Scooting : Rehab Moderate assistance Supine to Sit : Rehab Moderate assistance Sit to Stand : Rehab Minimal assistance (Comment: x 2 [Nate Woodard, [facility] - 12/23/2018 12:10 EDT] ) Stand to Sit : Rehab Minimal assistance (Comment: x 2 [Nate Woodard, [facility] - 12/23/2018 12:10 EDT] ) Nate Woodard, [facility] - 12/23/2018 11:06 EDT Bed Mobility Scooting Device : Cloth under pad Bed Comment : Patient had difficulty with initation of scooting Nate Woodard, [facility] - 12/23/2018 11:06 EDT Gait Training/Assessment, PT [...] decreased, Shuffling, Stride length, decreased Nate Woodard, [facility] - 12/23/2018 11:06 EDT Cognition Assessment, PT Orientation : Oriented x 4 Follows Basic Command Assessment : Patient needs extended time to process command [facility] - 12/23/2018 11:47 EDT Edu Topics Physical Therapy Education Grid Bed Mobility Training : Needs further teaching, Needs reinforcement Gait Training : Needs further teaching, Needs reinforcement Safety : Needs further teaching, Needs reinforcement Use of Assistive Device : Needs further teaching, Needs reinforcement Nate Woodard [facility] - 12/23/2018 11:47 EDT Indication Assesessment, PT Physical Therapy Indicated : Yes PT Problem List : Impaired, activities daily living, Impaired, bed mobility, Impaired, coordination/proprioception, Impaired, endurance tolerance, Impaired, gait, Impaired, joint mobility, Impaired, sitting balance, Impaired, standing balance, Impaired, transfers Potential Barriers To Therapy : Acuity of Illness Rehabilitation Potential : Good Nate Woodard [facility] - 12/23/2018 11:47 EDT Plan of Care, PT PT Tx Plan/Goals Established w Patient : Yes PT Frequency Rehab : Daily, twice (bid) PT Duration Rehab : Fourteen days PT Treatments Planned : Balance training, Bed mobility training, Caregiver training, Gait training, Pain management, Safety education, Transfer training Nate Woodard [facility] - 12/23/2018 11:47 EDT Short Term Goals Mobility/Bed Mobility STG PT Grid Goal #1 Activity : Supine to sit Assist : Supervision or set-up Date to Meet : 12/30/2018 EDT Goal Status : Initial goal [facility] - 12/23/2018 11:47 EDT Prison Goals Mobility/Bed Mobility LTG PT Grid Goal #1 Activity : Sit to stand Cues : Minimum verbal cues Assist : Supervision or set-up Date to Meet : 01/06/2019 EDT Goal Status : Intial Goal [facility] - 12/23/2018 11:47 EDT Ambulation LTG Grid Goal #1 Device : Walker, front wheel Distance : 200' Cues : Minimum verbal cues Assist : Supervision or set-up Date to Meet : 01/06/2019 EDT Goal Status : Intial Goal [facility] - 12/23/2018 11:47 EDT Treatment Note Subjective [...] safety, and decrease caregiver burden. [facility] - 12/23/2018 11:47 EDT Plan for Treatment : Cont. PT. PT has reviewed and agrees with note. JACQUI MCGUIRE, PT - 12/23/2018 12:10 EDT Pain Assessment Pain Scaled Used : 0-10 Pain scale Pain Score Pre-Intervention : 0 Pain Score During-Intervention : 0 Pain Score Post-Intervention. : 0 [facility] Wood[facility], [facility] - 12/23/2018 11:47 EDT Image 1 [...] Eval Moderate Complexity : 1 Nate Woodard [facility] - 12/23/2018 11:47 EDT documented in this encounter Plan of Treatment Not on file documented as of this encounter Visit Diagnoses Not on filedocumented in this encounter
--- OUTSIDE RECORDS SUMMARY | 2025-02-21 21:29 | XMS_ITS | Encounter Summary ---
Author Organization [employer] ([place], [place], [place], [place]) Address [address] [place] [address] Care Team Providers Care Logistics Operations Manager Name Role Phone Unavailable Primary Care Provider Unavailabl e Encounter Details Date Type Department Care Team (Late st Contact Info) Description 11/06/2019 Transcribed Document [facility] Radiology [address] [place] [address] Carlo Evans MD [address] [place], [place] [address] Social History Tobacco Use Types Packs/Day Years [...] well nourished, no acute distress]. Neurologic: [Equal poultry inseminator strength bilaterally, no movement or feeling in [...] Vanc, PICC ordered 11/04 in prep for retirement abx -Patient hemodynamically stable, afebrile -NSY following: [...] following. ID following, PICC in place, needs retirement abx recs prior to discharge. Awaiting PT/OT [...] Lymph # 1.33 x10(3)/uL 11/06/2019 05:53 EDT [place] % 13.8 % (High) 11/06/2019 05:53 EDT [place] # 0.99 K/uL 11/06/2019 05:53 EDT Eos [...]
--- OUTSIDE RECORDS SUMMARY | 2025-02-21 21:29 | XMS_ITS | Encounter Summary ---
Author Organization [employer] ([place], [place], [place], [place]) Address [address] [place] [address] Care Team Providers Care Crate Liner Name Role Phone Unavailable Primary Care Provider Unavailabl e Encounter Details Date Type Department Care Team (Late st Contact Info) Description 11/04/2019 Transcribed Document [facility] [place] [facility] [place] [address] ProviderAgnieszka MD [address], [place] [id number] Social History Tobacco Use Types Packs/Day Years [...] mg= 1 mL, IV Push, Q2H, PRN [place] 10 mg-325 mg oral tablet, 1 Tab, [...] Appearance CLEAR2 11/03/2019 14:00 EDT Urine Specific Waves 1.027 11/03/2019 14:00 EDT Urine pH Dipstick [...] 11/03/2019 20:19 EDT Electronically signed by Taryn, [facility] Conversion Fur Finisher Seamstress Cerner at 11/12/2022 9:31 PM CDT documented in this encounter Plan of Treatment Not on file documented as of this encounter Visit Diagnoses Not on filedocumented in this encounter
--- OUTSIDE RECORDS SUMMARY | 2025-02-21 21:29 | XMS_ITS | Encounter Summary ---
Author Organization [employer] ([place], [place], [place], [place]) Address [address] [place] [address] Care Team Providers Care Cafe Assistant Name Role Phone Unavailable Primary Care Provider Unavaillora e Encounter Details Date Type Department Care Team (Late st Contact Info) Description 12/22/2018 Transcribed Document [facility] [place] Family Medicine [facility] [place] [address] ProviderAgnieszka MD [address] [place] [address] Social History Tobacco Use Types [...] 68 yo male who was admitted to [facility] on 12/22 for radiculopathy. s/p L2-S1 laminectomy, [...] CHRISSIE FALK OTR/L - 12/23/2018 11:03 EDT Screw Machine Set Up Operator Tool Goals, OT Grooming LTG Grid Goal #1 [...] CHRISSIE FALK OTR/L - 12/23/2018 11:03 EDT Dressing, Lower Body LTG Grid Goal #1 Activity : Dressing, Lower Body Cues : No cues Assist : Supervision or set up Equipment : Long Handled Advertising Operations Coordinator, Sock aid, Long handled shoehorn Date to [...]
--- OUTSIDE RECORDS SUMMARY | 2025-02-21 21:29 | XMS_ITS | Data Portability ---
Author Organization [place] & JOELLE Abad ADMIN Address [address] [place] [id number] Care Team Providers Care Esthetician/Skin Therapist Name Role Phone NOAH NUNEZ Primary Care Provider [phone] Assessment Encounter Date Assessment Date Assessment LastModified by Organization Details LastModified Time 12/04/2023 12/04/2023 73-year-old male with: 1) Ulcerative colitis: Patient presents to [facility] care. He has been in symptomatic remission with Entyvio infusions q8 weeks for a few years now. We will assume prescribing for this. Order was faxed to the [facility] infusion center. -Obtain labs per below [...] receive his infusions, then in 6 months. [email or web address] Not available 12/04/2023 22:09:39 06/07/2024 06/07/2024 73-year-old male with: 1) Ulcerative colitis:He has been in symptomatic remission with Entyvio infusions q8 weeks for a few years now. He receives his infusions at [facility]. His order for this is currently [...] and PRN. Will call with lab results. [email or web address] Not available 06/07/2024 18:38:26 Plan of Treatment Reminders Order Date Submit Date Provider Last Modified By Organization Details Last Modified Time Details Appointments OV NEW 30 2024 03:00P Rabia WEBRE MD Not available Not available Not available Lab ESR (erythroc yte sedimenta tion rate), blood 2023 DRAKE [facility], [address], [address], [place], [address], 06/08/2024 16:13:15 C reactive protein, QN, serum or plasma 2023 024 KOBI [facility], [address], [address], [place], [address], 06/08/2024 16:13:16 CMP, serum or plasma 2023 024 DRA[facility], [address], [address], [place], [address], 06/08/2024 16:13:13 CBC w/ auto diff 2023 024 [facility], [address], [address], [place], [address], 06/08/2024 16:13:11 vitamin D, 25-hydrox y, total, serum 11/11/ 2024 11/11/2 024 KOBI [facility], [address], [address], [place], [address], 06/08/2024 16:13:14 ESR (erythroc yte sedimenta tion rate), blood 2023 024 KOBI [facility], [address], [address], [place], [address], 12/06/2023 16:10:31 C reactive protein, QN, serum or plasma 2023 024 KOBI [facility], [address], [address], [place], [address], 12/06/2023 16:10:32 CMP, serum or plasma 2023 024 KOBI [facility], [address], [address], [place], [address], 12/06/2023 16:10:28 CBC w/ auto diff 2023 024 KOBI [facility], [address], [address], [place], [address], 12/06/2023 16:10:27 vitamin D, 25-hydrox y, total, serum 2023 024 KOBI [facility], [address], [address], [place], [address], 12/06/2023 16:10:30 Mycobacte rium tuberculo sis stimulate d gamma interfero n, qual, blood 2023 024 KOBI [facility], [address], [address], [place], [address], 12/06/2023 16:10:29 hepatitis B surface Ab, quantitat shonna, serum 2023 024 KOBI [facility], [address], [address], [place], [address], 12/06/2023 16:10:29 HBsAg (hepatiti s B surface Ag), EIA, serum 2023 DRA[facility], [address], [address], [place], [address], 12/06/2023 16:10:32 Referral None recorded. Procedures None recorded. Surgeries None recorded. Imaging None recorded. Medication Orders polyethyl janet glycol 3350 17 gram/dose oral powder 2023 024 DRAKE [email or web address][id number], [address], [phone], 06/07/2024 14:18:08 Citrucel (sucrose) oral powder 2023 024 [id number], [address], [phone], 06/07/2024 14:18:09 omeprazol e 20 mg capsule,d elayed release 2023 024 [email or web address] [facility] #[id number], [address], [phone], 12/04/2023 18:10:43 Patient TargetsNo targets recorded. Patient InstructionsNo instructions recorded. Reason for Referral None Reported. Results Created Date Observation Date Name Description Value Unit Range Abnormal Flag Note LastModifiedBy Organization Detail LastModifiedTime 12/04/19 24 12/05/2023 CBC WITH DIFFE RENTI AL/PL ATELE T WBC 4.6 x10e3 /uL 3.4-10 .8 Not Available [facility] ([facility]) [address], [place], [address], 12/06/2023 16:10:27 12/04/19 24 12/05/2023 CBC WITH DIFFE RENTI AL/PL ATELE T RBC 5.37 x10e6 /uL 4.14-5 .80 Not Available [facility] ([facility]) [address] [place], [address], 12/06/2023 16:10:27 12/04/19 24 12/05/2023 CBC WITH DIFFE RENTI AL/PL ATELE T hemoglobin 15.7 g/dL 13.0-1 7.7 Not Available [facility] ([facility]) [address] [facility], [place], [address], 12/06/2023 16:10:27 12/04/19 24 12/05/2023 CBC WITH DIFFE RENTI AL/PL ATELE T hematocrit 47.8 % 37.5-5 1.0 Not Available [facility] ([facility]) [address] [facility], [place], [address], 12/06/2023 16:10:27 12/04/19 24 12/05/2023 CBC WITH DIFFE RENTI AL/PL ATELE T MCV 89 fL 79-97 Not Available [facility] ([facility]) [address] [place], [address], 12/06/2023 16:10:27 12/04/19 24 12/05/2023 CBC WITH DIFFE RENTI AL/PL ATELE T MCH 29.2 pg 26.6-3 3.0 Not Available [facility] ([facility]) [address] [place], [address], 12/06/2023 16:10:27 12/04/19 24 12/05/2023 CBC WITH DIFFE RENTI AL/PL ATELE T MCHC 32.8 g/dL 31.5-3 5.7 Not Available [facility] ([facility]) [address] [place], [address], 12/06/2023 16:10:27 12/04/19 24 12/05/2023 CBC WITH DIFFE RENTI AL/PL ATELE T RDW 12.7 % 11.6-1 5.4 Not Available [facility] ([facility]) [address] [facility], [place], [address], 12/06/2023 16:10:27 12/04/19 24 12/05/2023 CBC WITH DIFFE RENTI AL/PL ATELE T platelets 237 x10e3 /uL 150-45 0 Not Available [facility] ([facility]) [address] [facility], [place], [address], 12/06/2023 16:10:27 12/04/19 24 12/05/2023 CBC WITH DIFFE RENTI AL/PL ATELE T neutrophils 44 % not estab. Not Available [facility] ([facility]) [address] [facility], [place], [address], 12/06/2023 16:10:27 12/04/19 24 12/05/2023 CBC WITH DIFFE RENTI AL/PL ATELE T lymphs 42 % not estab. Not Available [facility] ([facility]) [address] [facility], [place], [address], 12/06/2023 16:10:27 12/04/19 24 12/05/2023 CBC WITH DIFFE RENTI AL/PL ATELE T monocytes 11 % not estab. Not Available [facility] ([facility]) [address] [facility], [place], [address], 12/06/2023 16:10:27 12/04/19 24 12/05/2023 CBC WITH DIFFE RENTI AL/PL ATELE T eos 2 % not estab. Not Available [facility] ([facility]) [address] [facility], [place], [address], 12/06/2023 16:10:27 12/04/19 24 12/05/2023 CBC WITH DIFFE RENTI AL/PL ATELE T basos 1 % not estab. Not Available [facility] ([facility]) [address] [facility], [place], [address], 12/06/2023 16:10:27 12/04/19 24 12/05/2023 CBC WITH DIFFE RENTI AL/PL ATELE T immature cells ESTHETIC DERMATOLOGIST Not Available [facility] ([facility]) [address] [facility], [place], [address], 12/06/2023 16:10:27 12/04/19 24 12/05/2023 CBC WITH DIFFE RENTI AL/PL ATELE T neutrophils (absolute) 2.0 x10e3 /uL 1.4-7. 0 Not Available [facility] ([facility]) [address] [facility], [place], [address], 12/06/2023 16:10:27 12/04/19 24 12/05/2023 CBC WITH DIFFE RENTI AL/PL ATELE T lymphs (absolute) 2.0 x10e3 /uL 0.7-3. 1 Not Available [facility] ([facility]) [address] [facility], [place], [address], 12/06/2023 16:10:27 12/04/19 24 12/05/2023 CBC WITH DIFFE RENTI AL/PL ATELE T monocytes(ab solute) 0.5 x10e3 /uL 0.1-0. 9 Not Available [facility] ([facility]) [address] [place], [address], 12/06/2023 16:10:27 12/04/19 24 12/05/2023 CBC WITH DIFFE RENTI AL/PL ATELE T eos (absolute) 0.1 x10e3 /uL 0.0-0. 4 Not Available [facility] ([facility]) [address] [place], [address], 12/06/2023 16:10:27 12/04/19 24 12/05/2023 CBC WITH DIFFE RENTI AL/PL ATELE T baso (absolute) 0.0 x10e3 /uL 0.0-0. 2 Not Available [facility] ([facility]) [address] [facility], [place], [address], 12/06/2023 16:10:27 12/04/19 24 12/05/2023 CBC WITH DIFFE RENTI AL/PL ATELE T immature granulocytes 0 % not estab. Not Available [facility] ([facility]) [address] [facility], [place], [address], 12/06/2023 16:10:27 12/04/19 24 12/05/2023 CBC WITH DIFFE RENTI AL/PL ATELE T immature grans (abs) 0.0 x10e3 /uL 0.0-0. 1 Not Available [facility] ([facility]) [address] [facility], [place], [address], 12/06/2023 16:10:27 12/04/19 24 12/05/2023 CBC WITH DIFFE RENTI AL/PL ATELE T NRBC ESTHETIC DERMATOLOGIST Not Available [facility] ([facility]) [address] [facility], [place], [address], 12/06/2023 16:10:27 12/04/19 24 12/05/2023 CBC WITH DIFFE RENTI AL/PL ATELE T hematology comments: ESTHETIC DERMATOLOGIST Not Available [facility] ([facility]) [address] [facility], [place], [address], 12/06/2023 16:10:27 12/04/19 24 12/05/2023 COMP. METAB OLIC PANEL (14) glucose 73 mg/dL 70-99 Not Available [facility] ([facility]) [address] [facility], [place], [address], 12/06/2023 16:10:28 12/04/19 24 12/05/2023 COMP. METAB OLIC PANEL (14) BUN 12 mg/dL 8-27 Not Available [facility] ([facility]) [address] [facility], [place], [address], 12/06/2023 16:10:28 12/04/19 24 12/05/2023 COMP. METAB OLIC PANEL (14) creatinine 1.04 mg/dL 0.76-1 .27 Not Available [facility] ([facility]) [address] [facility], [place], [address], 12/06/2023 16:10:28 12/04/19 24 12/05/2023 COMP. METAB OLIC PANEL (14) eGFR 75 mL/mi n/1.7 3 >59 Not Available [facility] ([facility]) [address] [facility], [place], [address], 12/06/2023 16:10:28 12/04/19 24 12/05/2023 COMP. METAB OLIC PANEL (14) BUN/creatini ne ratio 12 -24 Not Available [facility] ([facility]) [address] [facility], [place], [address], 12/06/2023 16:10:28 12/04/19 24 12/05/2023 COMP. METAB OLIC PANEL (14) sodium 141 mmol/ L 134-14 4 Not Available [facility] ([facility]) [address] [facility], [place], [address], 12/06/2023 16:10:28 12/04/19 24 12/05/2023 COMP. METAB OLIC PANEL (14) potassium 4.3 mmol/ L 3.5-5. 2 Not Available [facility] ([facility]) [address] [facility], [place], [address], 12/06/2023 16:10:28 12/04/19 24 12/05/2023 COMP. METAB OLIC PANEL (14) chloride 104 mmol/ L 96-106 Not Available [facility] ([facility]) [address] [facility], [place], [address], 12/06/2023 16:10:28 12/04/19 24 12/05/2023 COMP. METAB OLIC PANEL (14) carbon dioxide, total 23 mmol/ L 20-29 Not Available [facility] ([facility]) [address] [facility], [address], 12/06/2023 16:10:28 12/04/19 24 12/05/2023 COMP. METAB OLIC PANEL (14) calcium 9.0 mg/dL 8.6-10 .2 Not Available [facility] ([facility]) [address] [facility], [place], [address], 12/06/2023 16:10:28 12/04/19 24 12/05/2023 COMP. METAB OLIC PANEL (14) protein, total 7.3 g/dL 6.0-8. 5 Not Available [facility] ([facility]) [address] [facility], [place], [address], 12/06/2023 16:10:28 12/04/19 24 12/05/2023 COMP. METAB OLIC PANEL (14) albumin 4.2 g/dL 3.8-4. 8 Not Available [facility] ([facility]) [address] [facility] [place], [address], 12/06/2023 16:10:28 12/04/19 24 12/05/2023 COMP. METAB OLIC PANEL (14) globulin, total 3.1 g/dL 1.5-4. 5 Not Available [facility] ([facility]) [address] [facility] [place], [address], 12/06/2023 16:10:28 12/04/19 24 12/05/2023 COMP. METAB OLIC PANEL (14) A/G ratio 1.4 1.2-2. 2 Not Available [facility] ([facility]) [address] [facility] [place], [address], 12/06/2023 16:10:28 12/04/19 24 12/05/2023 COMP. METAB OLIC PANEL (14) bilirubin, total 0.4 mg/dL 0.0-1. 2 Not Available [facility] ([facility]) [address] [place], [address], 12/06/2023 16:10:28 12/04/19 24 12/05/2023 COMP. METAB OLIC PANEL (14) alkaline phosphatase 95 IU/L 44-121 Not Available [facility]) [address] [place], [address], 12/06/2023 16:10:28 12/04/19 24 12/05/2023 COMP. METAB OLIC PANEL (14) AST (SGOT) 17 IU/L 0-40 Not Available [facility] ([facility]) [address] [place], [address], 12/06/2023 16:10:28 12/04/19 24 12/05/2023 COMP. METAB OLIC PANEL (14) ALT (SGPT) 14 IU/L 0-44 Not Available [facility] ([facility]) [address] [place], [address], 12/06/2023 16:10:28 12/04/19 24 12/05/2023 QUANT IFERO N-TB GOLD PLUS quantiferon incubation INCUBA TION PERFOR MED. Not Available [facility] ([facility]) [address] [place], [address], 12/06/2023 16:10:28 12/04/19 24 12/05/2023 QUANT IFERO [...] ol for the test. Not Available [facility] ([facility]) [address] [place], [address], 12/06/2023 16:10:28 12/04/19 24 12/06/2023 QUANT IFERO N-TB GOLD PLUS quantiferon TB1 Ag value 0.06 IU/mL Not Available [facility] ([facility]) [address] [place], [address], 12/06/2023 16:10:28 12/04/19 24 12/06/2023 QUANT IFERO N-TB GOLD PLUS quantiferon TB2 Ag value 0.06 IU/mL Not Available [facility] ([facility]) [address] [place], [address], 12/06/2023 16:10:28 12/04/19 24 12/06/2023 QUANT IFERO N-TB GOLD PLUS quantiferon nil value 0.05 IU/mL Not Available [facility] ([facility]) [address] [place], [address], 12/06/2023 16:10:28 12/04/19 24 12/06/2023 QUANT IFERO N-TB GOLD PLUS quantiferon mitogen value >10.00 IU/mL Not Available [facility] ([facility]) [address] [place], [address], 12/06/2023 16:10:28 12/04/19 24 12/06/2023 QUANT IFERO N-TB GOLD PLUS quantiferon- TB gold plus NEGATI VE negati ve No respo nse to M tuber culos is antig ens detec radha. Infec tion with M tuber culos is is unlik rubén, but high risk indiv idual s shoul d be consi dered for addit ional testi ng (ATS/ IDSA/ CDC Clini reuben Pract ice Guide lines , 2017) . The refer ence range is an Antig en minus Nil resul t of <0.35 IU/mL . Chemi lumin escen ce immun oassa y metho dolog y Not Available [facility] ([facility]) [address] [facility], [place], [address], 12/06/2023 16:10:28 12/04/19 24 12/05/2023 HEPAT ITIS B SURF AB QUANT hepatitis B surf Ab quant <3.1 mIU/m L immuni ty>9.9 below low normal Statu s of Immun ity Anti- HBs Level ----- ----- ----- --- ----- ----- ---- Incon siste nt with Immun ity 0.0 - 9.9 Consi stent with Immun ity >9.9 Not Available [facility] ([facility]) [address] [facility], [place], [address], 12/06/2023 16:10:29 12/04/19 24 12/05/2023 VITAM IN [...] IOM (Inst itute of Medic ine). 2010. Dieta ry refer ence intak es for calci um and D. Fuentes hein [place]: The Natio nal [facility] Press . 2. Radames valdez MF, Ijeoma chau [place], Renetta off-F errberenice i BAUTISTA, et al. Evalu ation , treat ment, and preve ntion of vitam in D defic iency : an Endoc rine Socie ty clini reuben pract ice guide line. JCEM. 2010; 96(7) :1911 -30. Not Available [facility] ([facility]) [address] [facility], [place], [address], 12/06/2023 16:10:30 12/04/19 24 12/05/2023 SEDIM ENTAT ION RATE- WESTE RGREN sedimentatio n rate-westerg ahmet 29 mm/HR 0-30 Not Available [facility] ([facility]) [address] [facility], [place], [address], 12/06/2023 16:10:31 12/04/19 24 12/05/2023 HBSAG SCREE N HBsAg screen NEGATI VE negati ve Not Available [facility] ([facility]) [address] [facility], [place], [address], 12/06/2023 16:10:32 12/04/19 24 12/05/2023 C-ANN MARIE CTIVE PROTE IN, QUANT C-reactive protein, quant <1 mg/L 0-10 Not Available [facility] ([facility]) [address] [facility], [place], [address], 12/06/2023 16:10:32 06/07/20 24 06/08/2024 CBC WITH DIFFE RENTI AL/PL ATELE T WBC 5.4 x10e3 /uL 3.4-10 .8 normal Not Available [facility] ([facility]) [address] [facility], [place], [address], 06/08/2024 16:13:11 06/07/20 24 06/08/2024 CBC WITH DIFFE RENTI AL/PL ATELE T RBC 5.09 x10e6 /uL 4.14-5 .80 normal Not Available [facility] ([facility]) [address] [facility], [place], [address], 06/08/2024 16:13:11 06/07/20 24 06/08/2024 CBC WITH DIFFE RENTI AL/PL ATELE T hemoglobin 15.2 g/dL 13.0-1 7.7 normal Not Available [facility] ([facility]) [address] [facility], [place], [address], 06/08/2024 16:13:11 06/07/20 24 06/08/2024 CBC WITH DIFFE RENTI AL/PL ATELE T hematocrit 45.3 % 37.5-5 1.0 normal Not Available [facility] ([facility]) [address] [facility], [place], [address], 06/08/2024 16:13:11 06/07/20 24 06/08/2024 CBC WITH DIFFE RENTI AL/PL ATELE T MCV 89 fL 79-97 normal Not Available [facility] ([facility]) [address] [facility], [place], [address], 06/08/2024 16:13:11 06/07/20 24 06/08/2024 CBC WITH DIFFE RENTI AL/PL ATELE T MCH 29.9 pg 26.6-3 3.0 normal Not Available [facility] ([facility]) [address] [facility], [place], [address], 06/08/2024 16:13:11 06/07/20 24 06/08/2024 CBC WITH DIFFE RENTI AL/PL ATELE T MCHC 33.6 g/dL 31.5-3 5.7 normal Not Available [facility] ([facility]) [address] [facility], [place], [address], 06/08/2024 16:13:11 06/07/20 24 06/08/2024 CBC WITH DIFFE RENTI AL/PL ATELE T RDW 12.2 % 11.6-1 5.4 Not Available [facility] ([facility]) [address] [facility], [place], [address], 06/08/2024 16:13:11 06/07/20 24 06/08/2024 CBC WITH DIFFE RENTI AL/PL ATELE T platelets 245 x10e3 /uL 150-45 0 normal Not Available [facility] ([facility]) [address] [facility], [place], [address], 06/08/2024 16:13:11 06/07/20 24 06/08/2024 CBC WITH DIFFE RENTI AL/PL ATELE T neutrophils 54 % not estab. normal Not Available [facility] ([facility]) [address] [facility], [place], [address], 06/08/2024 16:13:11 06/07/20 24 06/08/2024 CBC WITH DIFFE RENTI AL/PL ATELE T lymphs 35 % not estab. normal Not Available [facility] ([facility]) [address] [facility], [place], [address], 06/08/2024 16:13:11 06/07/20 24 06/08/2024 CBC WITH DIFFE RENTI AL/PL ATELE T monocytes 9 % not estab. normal Not Available [facility] ([facility]) [address] [facility], [place], [address], 06/08/2024 16:13:11 06/07/20 24 06/08/2024 CBC WITH DIFFE RENTI AL/PL ATELE T eos 1 % not estab. normal Not Available [facility] ([facility]) [address] [facility], [place], [address], 06/08/2024 16:13:11 06/07/20 24 06/08/2024 CBC WITH DIFFE RENTI AL/PL ATELE T basos 1 % not estab. normal Not Available [facility] ([facility]) [address] [facility], [place], [address], 06/08/2024 16:13:11 06/07/20 24 06/08/2024 CBC WITH DIFFE RENTI AL/PL ATELE T immature cells ESTHETIC DERMATOLOGIST Not Available [facility] ([facility]) [address] [facility], [place], [address], 06/08/2024 16:13:11 06/07/20 24 06/08/2024 CBC WITH DIFFE RENTI AL/PL ATELE T neutrophils (absolute) 2.8 x10e3 /uL 1.4-7. 0 normal Not Available [facility] ([facility]) [address] [place], [address], 06/08/2024 16:13:11 06/07/20 24 06/08/2024 CBC WITH DIFFE RENTI AL/PL ATELE T lymphs (absolute) 1.9 x10e3 /uL 0.7-3. 1 normal Not Available [facility] ([facility]) [address] [place], [address], 06/08/2024 16:13:11 06/07/20 24 06/08/2024 CBC WITH DIFFE RENTI AL/PL ATELE T monocytes(ab solute) 0.5 x10e3 /uL 0.1-0. 9 normal Not Available [facility] ([facility]) [address] [place], [address], 06/08/2024 16:13:11 06/07/20 24 06/08/2024 CBC WITH DIFFE RENTI AL/PL ATELE T eos (absolute) 0.1 x10e3 /uL 0.0-0. 4 normal Not Available [facility] ([facility]) [address] [place], [address], 06/08/2024 16:13:11 06/07/20 24 06/08/2024 CBC WITH DIFFE RENTI AL/PL ATELE T baso (absolute) 0.1 x10e3 /uL 0.0-0. 2 normal Not Available [facility] ([facility]) [address] [place], [address], 06/08/2024 16:13:11 06/07/20 24 06/08/2024 CBC WITH DIFFE RENTI AL/PL ATELE T immature granulocytes 0 % not estab. Not Available [facility] ([facility]) [address] [place], [address], 06/08/2024 16:13:11 06/07/20 24 06/08/2024 CBC WITH DIFFE RENTI AL/PL ATELE T immature grans (abs) 0.0 x10e3 /uL 0.0-0. 1 Not Available [facility] ([facility]) [address] [facility], [place], [address], 06/08/2024 16:13:11 06/07/20 24 06/08/2024 CBC WITH DIFFE RENTI AL/PL ATELE T NRBC ESTHETIC DERMATOLOGIST Not Available [facility] ([facility]) [address] [facility], [place], [address], 06/08/2024 16:13:11 06/07/20 24 06/08/2024 CBC WITH DIFFE RENTI AL/PL ATELE T hematology comments: ESTHETIC DERMATOLOGIST Not Available [facility] ([facility]) [address] [facility], [place], [address], 06/08/2024 16:13:11 06/07/20 24 06/08/2024 COMP. METAB OLIC PANEL (14) glucose 83 mg/dL 70-99 normal Not Available [facility] ([facility]) [address] [facility], [place], [address], 06/08/2024 16:13:13 06/07/20 24 06/08/2024 COMP. METAB OLIC PANEL (14) BUN 16 mg/dL 8-27 normal Not Available [facility] ([facility]) [address] [facility], [place], [address], 06/08/2024 16:13:13 06/07/20 24 06/08/2024 COMP. METAB OLIC PANEL (14) creatinine 0.94 mg/dL 0.76-1 .27 normal Not Available [facility] ([facility]) [address] [facility], [place], [address], 06/08/2024 16:13:13 06/07/20 24 06/08/2024 COMP. METAB OLIC PANEL (14) eGFR 85 mL/mi n/1.7 3 >59 normal Not Available [facility] ([facility]) [address] [facility], [place], [address], 06/08/2024 16:13:13 06/07/20 24 06/08/2024 COMP. METAB OLIC PANEL (14) BUN/creatini ne ratio 17 10-24 normal Not Available [facility] ([facility]) [address] [facility], [place], [address], 06/08/2024 16:13:13 06/07/20 24 06/08/2024 COMP. METAB OLIC PANEL (14) sodium 141 mmol/ L 134-14 4 normal Not Available [facility] ([facility]) [address], [place], [address], 06/08/2024 16:13:13 06/07/20 24 06/08/2024 COMP. METAB OLIC PANEL (14) potassium 4.4 mmol/ L 3.5-5. 2 normal Not Available [facility] ([facility]) [address] [place], [address], 06/08/2024 16:13:13 06/07/20 24 06/08/2024 COMP. METAB OLIC PANEL (14) chloride 105 mmol/ L 96-106 normal Not Available [facility] ([facility]) [address] [place], [address], 06/08/2024 16:13:13 06/07/20 24 06/08/2024 COMP. METAB OLIC PANEL (14) carbon dioxide, total 23 mmol/ L 20-29 normal Not Available [facility] ([facility]) [address] [place], [address], 06/08/2024 16:13:13 06/07/20 24 06/08/2024 COMP. METAB OLIC PANEL (14) calcium 8.6 mg/dL 8.6-10 .2 normal Not Available [facility] ([facility]) [address] [facility] [place], [address], 06/08/2024 16:13:13 06/07/20 24 06/08/2024 COMP. METAB OLIC PANEL (14) protein, total 7.2 g/dL 6.0-8. 5 normal Not Available [facility] ([facility]) [address] [facility] [place], [address], 06/08/2024 16:13:13 06/07/20 24 06/08/2024 COMP. METAB OLIC PANEL (14) albumin 4.0 g/dL 3.8-4. 8 normal Not Available [facility] ([facility]) [address] [place], [address], 06/08/2024 16:13:13 06/07/20 24 06/08/2024 COMP. METAB OLIC PANEL (14) globulin, total 3.2 g/dL 1.5-4. 5 Not Available [facility] ([facility]) [address] [place], [address], 06/08/2024 16:13:13 06/07/20 24 06/08/2024 COMP. METAB OLIC PANEL (14) bilirubin, total 0.3 mg/dL 0.0-1. 2 normal Not Available [facility] ([facility]) [address] [facility] [place], [address], 06/08/2024 16:13:13 06/07/20 24 06/08/2024 COMP. METAB OLIC PANEL (14) alkaline phosphatase 92 IU/L 44-121 normal Not Available [facility] ([facility]) [address] [facility] [place], [address], 06/08/2024 16:13:13 06/07/20 24 06/08/2024 COMP. METAB OLIC PANEL (14) AST (SGOT) 15 IU/L 0-40 normal Not Available [facility] ([facility]) [address] [facility], [place], [address], 06/08/2024 16:13:13 06/07/20 24 06/08/2024 COMP. METAB OLIC PANEL (14) ALT (SGPT) 11 IU/L 0-44 normal Not Available [facility] ([facility]) [address] [facility] [place], [address], 06/08/2024 16:13:13 06/07/20 24 06/08/2024 VITAM IN [...] Medic ine). 2009. Dieta ry refer ence valdemar es for calci um and D. Fuentes hein [place]: [employer] [facility] [employer] . 2. Radames valdez MF, Ijeoma ey [place], Bisjonathan off-F errar i BAUTISTA, et al. Evalu ation , treat ment, and preve ntion of vitam in D defic iency : an Endoc rine Socie ty clini reuben pract ice guide line. JCEM. 2010; 96(7) :1911 -30. Not Available [facility] ([facility]) [address] [facility] [place], [address], 06/08/2024 16:13:14 06/07/20 24 06/08/2024 SEDIM ENTAT ION RATE- WESTE RGREN sedimentatio n rate-westerg ahmet 35 mm/HR 0-30 above high normal Not Available [facility] ([facility]) [address] [facility], [place], [address], 06/08/2024 16:13:15 06/07/20 24 06/08/2024 C-ANN MARIE CTIVE PROTE IN, QUANT C-reactive protein, quant 2 mg/L 0-10 normal Not Available [facility] ([facility]) [address] [facility], [place], [address], 06/08/2024 16:13:16 06/07/20 24 06/07/2024 PLEAS E NOTE please note Commen t The date and/o r time of colle ction was not indic ated on the requi sitio n as requi red by state and rocio al law. The date of recei pt of the speci men was used as the colle ction date if not suppl ied. Not Available [facility] ([facility]) [address] [facility], [place], [address], 06/08/2024 16:13:17 Result Notes None recorded. Problems Name Problem SNOMED Code Status Onset Date Resolution Date Notes Provider Name and Address Organization Details Recorded Time Ulcerative colitis 52707838 Active 2023 Dewayne Michael PA-C [address] , [place], [address] , [facility] & [place] 13:57:51 Acid reflux 029139262 Active 2023 Dewayne Michael PA-C [address] [place], [address] , [facility] & [place] 4 14:46:10 Constipation 40699059 Active 2023 Dewayne Michael PA-C [address] , [place], [address] , [facility] - [facility] & [place] 14:11:57 Problem Notes None recorded. Procedures Surgical History Date Name Laterality Status Provider Name and Address Organization Details Recorded Time Back Surgery completed Susu Parikh [place] - [facility] & [place] 12/04/2023 13:24:00 Imaging Results None [...] Last Updated DateTime 175.26 cm 29.5 kg/m2 82805.4 7 g 97.6 [degF] 78 /min 78 /min 98 % 98 % 148/97 mm[Hg] Susu Parikh [facility] & [place] 13:19:28 Date Recorded Body height Heart rate Systolic And Diastolic Provider Name and Address Organization Details Last Updated DateTime 06/07/2024 175.26 cm 87 /min 115/85 mm[Hg] Susu De Los Santos [facility] & [place] 06/07/2024 13:34:09 Social History Question Answer Notes LastModified by [employer] Details LastModified Time Tobacco Smoking Status Never Smoker Susu garzon [facility] & [place] 12/04/2023 13:20:51 What Is Your Level Of Caffeine Consumption? Moderate Information not available 12/04/2023 Sex: Unknown Functional Status Question Answer Note LastModified by [email or web address] Details LastModified Time Do you use any illicit or recreational drugs? No [email or web address] Information not available 12/04/2023 What is your level of alcohol consumption? Occasional [email or web address] Information not available 12/04/2023 Mental Status None recorded. Family History Nothing Reported. Medical History No medical history recorded. Past Encounters Encounter ID Performer Location Encounter Start Date Encounter Closed Date Diagnosis/Indication Diagnosis SNOMED-CT Code Diagnosis ICD10 Code Diagnosis Note [id number] Dewayne Michael PA-C [facility] [address] [address] 12/04/2023 13:05:56 12/04/2023 15:14:41 Ulcerative colitis 96410503 K51.90 Acid reflux 380632463 K2 1.9 [id number] Dewayne Michael PA-C [facility] [address] [address] 06/07/2024 13:06:35 06/07/2024 14:43:37 Ulcerative colitis 39563437 K51.90 Acid reflux 285611618 K2 1.9 Constipation 25189034 K5 9.00 Health Concerns Section Related Observation LastModified by Organization Detai ls LastModified Time None Recorded Concern Status LastModified by Organization Details LastModified Time None Recorded Advance Directives Directive None Recorded Payers Insurance Date Sequence Insurance Name Policy Number Policy Sparks Covered Member ID Sparks Member ID Guarantor Name 06/07/2024 1 [place]ARE[place] Simba Cuevas Jr [id number] Simba Cuevas 06/29/2024 2 FOR LIFE ( - MEDICARE SUPPLEMENT) Simba Cuevas [id number] Simba Cuevas
--- OUTSIDE RECORDS SUMMARY | 2025-02-21 21:29 | XMS_ITS | Encounter Summary ---
Author Organization [employer] ([place], [place], [place], [place]) Address [address] [place] [address] Care Team Providers Care New Client Banking Services Clerk Name Role Phone Unavailable Primary Care Provider Unavailabl e Encounter Details Date Type Department Care Team (Late st Contact Info) Description 11/07/2019 Transcribed Document [facility] Family [place] [address] ProviderAgnieszka MD [address] [place], [place] [address] Social History Tobacco Use Types Packs/Day Years [...] mL: 2 Gram, 200 mL/Hr, IV Piggyback, [id number] docusate sodium: 200 mg, Oral, BID hydrALAZINE: [...] mL: 1,250 mg, 250 mL/Hr, IV Piggyback, [id number] Pending Complete fentaNYL: 25 mcg, IV Push, Q10Min Documented Medications Documented Azilect 1 mg oral tablet: 1 Tab, Oral, Daily, 30 Tab, 0 Refill(s) Remicade: 10 mg/kg, IntraVENous, [id number], for Ulcerative Colitis; Last dose: 09/29/2019, 0 [...] *MBP* 100 mL 2 Gram, IV Piggyback, [id number] docusate sodium 100 mg cap 200 mg 2 Cap, Oral, BID lactobacillus acidophilus cap 1 Cap, Oral, Daily rasagiline 1 mg tab 1 mg 1 Tab, Oral, Daily vancomycin + NaCl 0.9% 250 mL 1,250 mg, IV Piggyback, [id number] Continuous: (1) lactated ringers 1,000 mL 1,000 [...] All Problems Parkinson disease / SNOMED CT 53750486 / Confirmed Scoliosis / SNOMED CT 839212679 / Confirmed Colitis / SNOMED CT 2574884835 / Confirmed Arthritis / SNOMED CT 9958182 / Confirmed 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 Alyssa DONATO DC Electronically signed by [facility] Conversion Oil Mixer Cerner at 11/12/2022 9:35 PM CDT documented in this encounter Plan of Treatment Not on file documented as of this encounter Visit Diagnoses Not on filedocumented in this encounter
--- OUTSIDE RECORDS SUMMARY | 2025-02-21 21:29 | XMS_ITS | Encounter Summary ---
Author Organization [employer] ([place], [place], [place], [place]) Address [address] [place] [address] Care Team Providers Care Capacitor Inspector Name Role Phone Unavailable Primary Care Provider Unavailabl e Encounter Details Date Type Department Care Team (Late st Contact Info) Description 12/22/2018 Transcribed Document [facility] Family Medicine [facility] [place] [address] ProviderAgnieszka MD [address] [place], [place] [id number] Social History Tobacco Use Types Packs/Day Years [...] #2 Relationship : , Primary Language : Bahamian Communication Barrier : None Melissa Alexander RN [...] Scale Risk Level : 25-45 Medium Risk [place] Fall Interventions : Adequate lighting, Assistive devices [...] Source : Measured Height Entry Format : Vance Height, Feet : 5 ft(Converted to: 152 cm, 60 Inch) Height, Inches : 9 Inch(Converted to: 0 ft 9 Inch, 22.86 cm) Clinical Height : 175.26 cm Weight Source : Standing scale Weight Entry Format : Vance Clinical Dosing Weight : 84.55 kg Weight, Pounds : 186 lb Body Surface Area (BSA) : 2 m2 Body Mass Index : 27.5 kg/m2 (HI) [place] Body Weight : 70 kg Melissa Alexander [...]
--- OUTSIDE RECORDS SUMMARY | 2025-02-21 21:29 | XMS_ITS | Encounter Summary ---
Author Organization [employer] ([place], [place], [place], [place]) Address [address] [place] [address] Care Team Providers Care Program Review Director Name Role Phone Unavailable Primary Care Provider Unavailabl e Encounter Details Date Type Department Care Team (Late st Contact Info) Description 12/22/2018 Transcribed Document [facility] [place] Family Medicine [address] [place] [address] ProviderAgnieszka MD [address] [place], [place] [id number] Social History Tobacco Use Types Packs/Day Years Used Date Smoking Tobacco: Never Assessed Sex and Gender Information Value Date Recorded Sex Assigned at Not on file Legal Sex Male 2:38 PM CDT Gender Identity Not on file Sexual Orientation Not on file documented as of this encounter Miscellaneous Notes * Cerner Conversion Note - Historical ProviderMD - 12/22/2018 1:14 PM CDT [facility] Main OR IntraOp Summary Primary Physician: HEIDE KAT MD-SNU Finalized Date/Time: 12/23/18 10:58:23 Pt. Name: EILEEN MAYEN JR/Sex: 1950 Male Med Rec #: [id number] Physician: HEIDE KAT MD-SNU Financial #: [id number] Pt. Type: I Room/Bed: [facility]/ Admit/Disch: 12/22/18 06:36:00 - Institution: [facility] IntraOp Case Attendance Entry 1 Entry 2 Entry 3 Case Attendee HEIDE KAT Burdine, Teresa A, Rn LONG, PAULA R. MD-SNU Role Performed Surgeon/Proceduralist, Supervisory Investigative Specialist, First Scrub, Second First Time In 12/22/18 [...] ANGELICA LANDAVERDE MD Role Performed Scrub, Second REVENUE INTEGRITY ANALYST/Nurse Disability Coordinator Anesthesiologist of Record Time In 12/22/18 12:37:00 [...] Jang, Lopez OTHER, ATTENDEE #1 Role Performed Supervisory Investigative Specialist, Second REVENUE INTEGRITY ANALYST/Nurse Disability Coordinator Vendor Time In 12/22/18 12:37:00 12/22/18 12:37:00 [...] 11 Entry 12 Case Attendee Nadia Valdivia, Supervisor Contact Lens Clifton Schroeder, Supervisor Contact Lens Delmi Andino [employer] Pref Card Builder Role Performed REVENUE INTEGRITY ANALYST/Nurse Disability Coordinator REVENUE INTEGRITY ANALYST/Nurse Disability Coordinator Scrub, First Time In 12/22/18 12:37:00 12/22/18 [...] A, ARCHIE Lincoln Role Performed Scrub, First Supervisory Investigative Specialist, First Scrub, First Time In 12/22/18 12:50:00 [...] VILLALPANDO PA-C Role Performed Scrub, First Physician cafeteria assistant Time In 12/22/18 17:22:00 12/22/18 12:37:00 Time Out 12/22/18 18:08:00 12/22/18 18:08:00 Procedure Lumbar Fusion Posterior Lumbar Fusion Posterior 3 Level 3 Level Other Attendee Superficial Wound Closed By: Last Modified By: Monica Bustillos Rn Burdine, Teresa A, Rn 12/22/18 18:08:27 12/22/18 18:08:27 [facility] IntraOp Case Attendance Audit 12/22/18 18:08:44 Still Pump Operator: [id number] Modifier: [id number] <+> Role Performed 15 <*> Procedure Lumbar Fusion Posterior 3 Level 12/22/18 18:08:27 Still Pump Operator: [id number] Modifier: [id number] <+> Time Out 1 <*> Procedure [...] Lumbar Fusion Posterior 3 Level 12/22/18 17:32:50 Still Pump Operator: [id number] Modifier: [id number] 1 <*> Procedure Lumbar Fusion Posterior 3 [...] Lumbar Fusion Posterior 3 Level 12/22/18 17:31:57 Still Pump Operator: [id number] Modifier: [id number] <+> 17 Case Attendee <+> 17 Role Performed <+> 17 Procedure 12/22/18 17:22:20 Still Pump Operator: [id number] Modifier: [id number] <+> Time Out 15 <*> Procedure Lumbar Fusion Posterior 3 Level <+> 16 Case Attendee <+> 16 Role Performed <+> 16 Time In <+> 16 Procedure 12/22/18 17:20:00 Still Pump Operator: [id number] Modifier: [id number] <+> 15 Case Attendee <+> 15 Time In <+> 15 Procedure 12/22/18 17:19:17 Still Pump Operator: [id number] Modifier: [id number] <+> Time Out 3 <*> Procedure Lumbar Fusion Posterior 3 Level 12 <+> Time Out 12 <*> Procedure Lumbar Fusion Posterior 3 Level 12/22/18 16:40:42 Still Pump Operator: [id number] Modifier: [id number] <+> Time Out 2 <*> Procedure Lumbar Fusion Posterior 3 Level <+> 14 Case Attendee <+> 14 Role Performed <+> 14 Time In <+> 14 Procedure 12/22/18 15:28:44 Still Pump Operator: [id number] Modifier: [id number] <*> Procedure Lumbar Fusion Posterior 3 Level <+> 12 Case Attendee <+> 12 Role Performed <+> 12 Time In <+> 12 Procedure <+> 13 Case Attendee <+> 13 Role Performed <+> 13 Time In <+> 13 Time Out <+> 13 Procedure 12/22/18 15:09:00 Still Pump Operator: [id number] Modifier: [id number] <+> Time Out 11 <*> Procedure Lumbar Fusion Posterior 3 Level 12/22/18 15:08:31 Still Pump Operator: [id number] Modifier: [id number] <+> 10 Case Attendee <+> 10 Role Performed <+> 10 Time In <+> 10 Time Out <+> 10 Procedure <+> 11 Case Attendee <+> 11 Role Performed <+> 11 Time In <+> 11 Procedure <+> 11 Other Attendee 12/22/18 13:27:26 Still Pump Operator: [id number] Modifier: [id number] <+> 1 Procedure 2 <*> Procedure Lumbar [...] Lumbar Fusion Posterior 3 Level 12/22/18 13:25:52 Still Pump Operator: [id number] Modifier: [id number] <+> 1 Time In 2 <+> Time [...] <*> Procedure Lumbar Fusion Posterior 3 Level [facility] IntraOp Case Times Entry 1 Patient In Room Time 12/22/18 12:37:00 Out Room Time 12/22/18 18:08:00 Anesthesia Start Time 12/22/18 12:37:00 Stop Time 12/22/18 18:08:00 Surgery / Procedure Times Start Time 12/22/18 13:14:00 Stop Time 12/22/18 17:20:00 Last Modified By: Monica Bustillos Rn 12/22/18 18:08:26 [facility] IntraOp Case Times Audit 12/22/18 18:08:26 Still Pump Operator: [id number] Modifier: [id number] <+> 1 Out Room Time <+> 1 Stop Time <+> 1 Stop Time 12/22/18 13:14:12 Still Pump Operator: [id number] Modifier: [id number] <+> 1 Start Time [facility] IntraOp Cautery Entry 1 Entry 2 ESU Identification Cautery Type Monopolar ESU BiPolar ESU Cautery Type Comments ID Number [id number] ID Type Hospital Number Hospital Number Cautery [...] Teresa A, Rn 12/22/18 12:35:57 12/22/18 12:35:57 [facility] IntraOp Communication Entry 1 Entry 2 Entry [...] 12/22/18 17:55:57 General Comments: NO FAMILY PRESENT [facility] IntraOp Communication Audit 12/22/18 17:55:57 Still Pump Operator: [id number] Modifier: [id number] 1 <*> Communication By Monica Bustillos, Adelia 1 <*> Communication By Monica Bustillos Rn 1 <*> Communication By Monica Bustillos Rn 1 <*> Communication By Monica Bustillos Rn 1 <*> Communication By Apollo, Monica A, Rn 1 <*> Communication By [...] <*> Comment 5 <*> Comment 12/22/18 15:53:33 Still Pump Operator: [id number] Modifier: [id number] <*> Communication By Monica Bustillos Rn 3 <*> Communication By Monica Bustillos Rn 3 <*> Date and Time 3 <*> Date and Time 3 <*> Communication To 3 <*> Communication To 3 <*> Comment 3 <*> Comment 12/22/18 14:56:30 Still Pump Operator: [id number] Modifier: [id number] <*> Communication By Monica Bustillos, Rn [...] [facility] IntraOp Counts Final Audit 12/22/18 17:20:13 Still Pump Operator: [id number] Modifier: [id number] 1 <*> Procedure Lumbar Fusion Posterior 3 Level 1 <*> Count Performed By (Scrub) KENNY IGNACIO 12/22/18 17:17:55 Still Pump Operator: [id number] Modifier: [id number] 1 <*> Procedure Lumbar Fusion Posterior 3 Level 1 <*> Count Performed By (RN) Monica Bustillos Rn [facility] IntraOp Departure from OR Entry 1 [...] Modified By: Monica Bustillos Rn 12/22/18 17:32:15 [facility] IntraOp Dressing and Packing Audit 12/22/18 17:32:15 Still Pump Operator: [id number] Modifier: [id number] <+> 1 Applied By [facility] IntraOp Fire Risk Assessment Entry 1 [...] Modified By: Monica Bustillos Rn 12/22/18 13:18:45 [facility] IntraOp General Case Industrial Cleaning Technician 1 Case Information OR OR 10 [facility] Case Level 1 Room Verified Yes Wound Class I - Clean Specialty SN Neurosurgery ASA Class 4 Diagnosis Preop Diagnosis LUMBAR REDICULOPATHY Postop Same As Preop No Postop Diagnosis SEE MD POST OP NOTE Last Modified By: Monica Bustillos Rn 12/22/18 13:20:56 [facility] IntraOp General Case Data Audit 12/22/18 13:20:56 Still Pump Operator: [id number] Modifier: [id number] <+> 1 Postop Same As Preop <+> 1 Preop Diagnosis <+> 1 Postop Diagnosis [facility] IntraOp Implant Log Entry 1 Entry 2 Entry 3 Type Tissue Implant Tissue Implant Implant (Synthetic) (Biologic) (Biologic) Implant Log Implant Type Hardware Tissue Implant Type Bone Bone Implant BONE VIVIGEN FRMBLE BONE FT DBX 04.633.185 Identification CELL [id number] [id number] Description Implant Quantity 1 1 2 Implant Site OP SITE OP SITE OPSITE Implant [id number] Identification Model Number Implant [id number] Identification Serial Number Implant Identification Lot Number Implant Lifenet:Lifenet Musculoskeletal SYNTHES SPINE Identification Transplant Srv Transplant Fnd Instructor Wastewater Treatment Plant Name: Implant [id number] Identification Catalog Number Implant Size PREBENT SCOLI RAE Implant Has an Yes Yes No Expiration Date Implant Expiration 11/27/19 06/12/20 Date Wasted Radioactive Material Time Implanted Tissue Implant Continue for Tissue Implant Documentation Tissue Identification Number Graft Prep Per Instructor Wastewater Treatment Plant Instructions: Tissue Preparation Method: Reconstitution Solution: Reconstitution Solution Lot Number Reconstitution Solution Expiration Date: Thawing Solution Thawing Solution Lot Number Thawing Solution Expiration Date Preparation Materials, Other Preparation Materials, Other Lot Number Preparation Materials, Other Expiration Date Tissue Prepared/Processed By Instructor Wastewater Treatment Plant Paperwork Completed Implant Type Comment Last Modified [...] FIX FEN SCR SPNE ALIN FIX Identification [id number] Description Implant Quantity 6 8 4 Implant Site OPSITE OPSITE OPSITE Implant Identification Model Number Implant Identification Serial Number Implant Identification Lot Number Implant J&J:Depuy:Depuy Spine J&J:Depuy:Depuy Spine J&J:Depuy:Depuy Spine Identification Instructor Wastewater Treatment Plant Name: Implant [id number] 1867-27-655 Identification Catalog Number Implant Size Implant Has an No No No Expiration Date Implant Expiration Date Wasted Radioactive Material Time Implanted Tissue Implant Continue for Tissue Implant Documentation Tissue Identification Number Graft Prep Per Instructor Wastewater Treatment Plant Instructions: Tissue Preparation Method: Reconstitution Solution: Reconstitution Solution Lot Number Reconstitution Solution Expiration Date: Thawing Solution Thawing Solution Lot Number Thawing Solution Expiration Date Preparation Materials, Other Preparation Materials, Other Lot Number Preparation Materials, Other Expiration Date Tissue Prepared/Processed By Instructor Wastewater Treatment Plant Paperwork Completed Implant Type Comment Last Modified By: Monica Bustillos Rn Burdine, Teresa A, Rn Burdine, Teresa A, Rn 12/22/18 15:37:38 12/22/18 17:42:10 12/22/18 17:42:10 Entry 7 Entry 8 Entry 9 Type Implant (Synthetic) Implant (Synthetic) Implant (Synthetic) Implant Log Implant Type Hardware Hardware Hardware Tissue Implant Type Implant SCR ILIAM 9MM X 100MM MIS SUNNI PLY SCRW SET CAGE BULLET CONCORDE Identification [id number] Description Implant Quantity 2 20 1 Implant Site OPSITE OPSITE OPSITE Implant Identification Model Number Implant Identification Serial Number Implant Identification Lot Number Implant J&J:Depuy:Depuy Spine J&J:Depuy:Depuy Spine J&J:Depuy:Depuy Spine Identification Instructor Wastewater Treatment Plant Name: Implant [id number] 1867-15-000 1878-27-108 Identification Catalog Number Implant Size Implant Has an No No No Expiration Date Implant Expiration Date Wasted Radioactive Material Time Implanted Tissue Implant Continue for Tissue Implant Documentation Tissue Identification Number Graft Prep Per Instructor Wastewater Treatment Plant Instructions: Tissue Preparation Method: Reconstitution Solution: Reconstitution Solution Lot Number Reconstitution Solution Expiration Date: Thawing Solution Thawing Solution Lot Number Thawing Solution Expiration Date Preparation Materials, Other Preparation Materials, Other Lot Number Preparation Materials, Other Expiration Date Tissue Prepared/Processed By Instructor Wastewater Treatment Plant Paperwork Completed Implant Type Comment Last Modified By: Monica Bustillos Rn Burdine, Teresa A, Rn Burdine, Teresa A, Rn 12/22/18 17:42:10 12/22/18 17:42:10 12/22/18 17:42:10 Entry 10 Entry 11 Type Implant (Synthetic) Implant (Synthetic) Implant Log Implant Type Hardware Hardware Tissue Implant Type Implant CAGE BULLET CONCORDE CONCORDE BUL ANGELIKA Identification [id number] Description Implant Quantity 1 1 Implant Site OPSITE OPSITE Implant Identification Model Number Implant Identification Serial Number Implant Identification Lot Number Implant J&J:Depuy:Depuy Spine J&J:Depuy:Depuy Spine Identification Instructor Wastewater Treatment Plant Name: Implant [id number] [id number] Identification Catalog Number Implant Size Implant Has an No No Expiration Date Implant Expiration Date Wasted Radioactive Material Time Implanted Tissue Implant Continue for Tissue Implant Documentation Tissue Identification Number Graft Prep Per Instructor Wastewater Treatment Plant Instructions: Tissue Preparation Method: Reconstitution Solution: Reconstitution Solution Lot Number Reconstitution Solution Expiration Date: Thawing Solution Thawing Solution Lot Number Thawing Solution Expiration Date Preparation Materials, Other Preparation Materials, Other Lot Number Preparation Materials, Other Expiration Date Tissue Prepared/Processed By Instructor Wastewater Treatment Plant Paperwork Completed Implant Type Comment Last Modified By: Monica Bustillos Rn Burdine, Teresa A, Rn 12/22/18 17:42:10 12/22/18 17:42:10 [facility] IntraOp Implant Log Audit 12/22/18 17:42:10 Still Pump Operator: [id number] Modifier: [id number] <+> 3 Implant Identification Description <+> 3 Implant Identification Instructor Wastewater Treatment Plant Name: <+> 3 Implant Size <+> 3 Implant Site <+> 3 Implant Quantity <+> 3 Implant Type <+> 3 Implant Has an Expiration Date <+> 3 Type <+> 4 Implant Identification Description <+> 4 Implant Identification Instructor Wastewater Treatment Plant Name: <+> 4 Implant Site <+> 4 Implant Quantity <+> 4 Implant Identification Catalog Number <+> 4 Implant Type <+> 4 Implant Has an Expiration Date <+> 4 Type <+> 5 Implant Identification Description <+> 5 Implant Identification Instructor Wastewater Treatment Plant Name: <+> 5 Implant Site <+> 5 Implant Quantity <+> 5 Implant Identification Catalog Number <+> 5 Implant Type <+> 5 Implant Has an Expiration Date <+> 5 Type <+> 6 Implant Identification Description <+> 6 Implant Identification Instructor Wastewater Treatment Plant Name: <+> 6 Implant Site <+> 6 Implant Quantity <+> 6 Implant Identification Catalog Number <+> 6 Implant Type <+> 6 Implant Has an Expiration Date <+> 6 Type <+> 7 Implant Identification Description <+> 7 Implant Identification Instructor Wastewater Treatment Plant Name: <+> 7 Implant Site <+> 7 Implant Quantity <+> 7 Implant Identification Catalog Number <+> 7 Implant Type <+> 7 Implant Has an Expiration Date <+> 7 Type <+> 8 Implant Identification Description <+> 8 Implant Identification Instructor Wastewater Treatment Plant Name: <+> 8 Implant Site <+> 8 Implant Quantity <+> 8 Implant Identification Catalog Number <+> 8 Implant Type <+> 8 Implant Has an Expiration Date <+> 8 Type <+> 9 Implant Identification Description <+> 9 Implant Identification Instructor Wastewater Treatment Plant Name: <+> 9 Implant Site <+> 9 Implant Quantity <+> 9 Implant Identification Catalog Number <+> 9 Implant Type <+> 9 Implant Has an Expiration Date <+> 9 Type <+> 10 Implant Identification Description <+> 10 Implant Identification Instructor Wastewater Treatment Plant Name: <+> 10 Implant Site <+> 10 Implant Quantity <+> 10 Implant Identification Catalog Number <+> 10 Implant Type <+> 10 Implant Has an Expiration Date <+> 10 Type <+> 11 Implant Identification Description <+> 11 Implant Identification Instructor Wastewater Treatment Plant Name: <+> 11 Implant Site <+> 11 Implant Quantity <+> 11 Implant Identification Catalog Number <+> 11 Implant Type <+> 11 Implant Has an Expiration Date <+> 11 Type [facility] IntraOp Intraoperative Assessment Entry 1 Handoff Reported [...] Modified By: Monica Bustillos Rn 12/22/18 13:21:44 [facility] IntraOp Intraoperative Equipment Entry 1 Type Equipment Equipment Equipment Ganesh Suction System Setting 200MMHG Intraop Monitoring Electrocardiogram Three lead placement (ECG) Electrode Placement Blood Pressure Non-Invasive BP Device Source Blood Pressure Arm, right upper Location Pulse Oximeter Hand, left Probe Site Antiembolic Devices Antiembolic Devices Sequential compression device, knee high Antiembolic Device Bilateral Location Antiembolic Device [id number] ID Number Scopes Photo/Video Documentation Photo No Video No Last Modified By: Monica Bustillos Rn 12/22/18 13:22:24 [facility] IntraOp Medication Admin Entry 1 Entry 2 Entry 3 Medication/Irrigant Bacitracin 50,00units lidocaine 1% w/ Marcaine 0.25% 30ml powder vial epinephrine 1:100,000 vial - [id number] 30ml vial - [id number] Combo Med List Time Administered Route of MIXED WITH NS IRRIGATION LOCAL LOCAL Administration Dose Dose 89253 10 10 Unit of Measure units ml [...] ointment SEALR AQUAMANTYS BIPLR SPNG SURGFOAM - [id number] Combo Med List Time Administered Route of [...] Entry 8 Medication/Irrigant thrombin 5000units vancomycin -- [id number] topical powder - [id number] Combo Med List Time Administered Route of TOPICAL POWDER IN WOUND Administration Dose Dose 5000 1 Unit of Measure units gram Volume Administered By HEIDE KAT TUTT, MATTHEW PAIGE, MD-SNU MD-SNU Procedure Irrigation Irrigant Volume In Irrigant Volume Out Last Modified By: Monica Bustillos Rn Burdine, Teresa A, Rn 12/22/18 13:24:19 12/22/18 16:41:25 [facility] IntraOp Medication Admin Audit 12/22/18 16:41:25 Still Pump Operator: [id number] Modifier: [id number] <+> 8 Medication/Irrigant <+> 8 Route of [...] Modified By: Monica Bustillos Rn 12/22/18 13:25:49 [facility] IntraOp Sign Out Entry 1 RN [...] Modified By: Monica Bustillos Rn 12/22/18 18:09:18 [facility] IntraOp Sign Out Audit 12/22/18 18:09:18 Still Pump Operator: [id number] Modifier: [id number] <*> RN Sign Out Signature Monica Bustillos Rn 1 <+> RN Sign Out Signature Date/Time [facility] IntraOp Skin Prep Entry 1 Entry 2 [...] Teresa A, Rn 12/22/18 13:27:01 12/22/18 13:27:01 [facility] IntraOp Surgical Procedures Entry 1 Procedure Lumbar Fusion Posterior 3 Level Additional ([id number] PLIF) Procedure Description Primary Procedure Yes Primary Surgeon HEIDE KAT MD-SNU Start 12/22/18 13:14:00 Stop 12/22/18 17:20:00 Anesthesia Type General Specialty SN Neurosurgery Wound Class I - Clean Last Modified By: Monica Bustillos Rn 12/22/18 18:09:20 General Comments: ANCEF 2GM IV PER ANESTHESIA [facility] IntraOp Surgical Procedures Audit 12/22/18 18:09:20 Still Pump Operator: [id number] Modifier: [id number] 1 <*> Stop 1 <*> Stop [facility] IntraOp Temp Regulation Devices Entry 1 Temp Regulation Temperature Forced Air Warming Regulation Device device Temperature Upper body Regulation Site Last Modified By: Monica Bustillos Rn 12/22/18 12:37:27 [facility] IntraOP Time Out Entry 1 Electronically signed by Taryn [facility] Conversion Military Source Operations Specialist Cerner at 11/12/2022 9:34 PM CDT documented in this encounter Plan of Treatment Not on file documented as of this encounter Visit Diagnoses Not on filedocumented in this encounter
--- OUTSIDE RECORDS SUMMARY | 2025-02-21 21:29 | XMS_ITS | Encounter Summary ---
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 Patient is a Hindu and welcomes prayer. Spiritual/Emotional Acuity : Medium Spiritual Framework : Integrated, provides strength/resource Active in a Orthodox/Sommer Group : Yes Alevism Preference : Hindu Summary/Next Steps Comment/Summary : Prayer and encouragement shared with patient. NAE BELL Chaplain - 11/07/2019 11:28 EDT documented in this encounter Plan of Treatment Not on file documented as of this encounter Visit Diagnoses Not on filedocumented in this encounter
--- OUTSIDE RECORDS SUMMARY | 2025-02-21 21:29 | XMS_ITS | Encounter Summary ---
Author Organization [employer] ([place], [place], [place], [place]) Address [address] [place] [address] Care Team Providers Care Quality Control Assistant Name Role Phone Unavailable Primary Care Provider Unavailabl e Encounter Details Date Type Department Care Team (Late st Contact Info) Description 11/03/2019 Transcribed Document [facility] [place] [address] [place] [address] ProviderAgnieszka MD [address] [place], [place] [id number] Social History Tobacco Use Types Packs/Day Years [...] JESSICA ROSENBAUM OTR/L - 11/04/2019 13:16 EDT Group Home Goals, OT Grooming LTG Grid Goal #1 Activity : Grooming Assist : Independent, modified Date to Meet : 11/17/2019 EDT Goal Status : Progressing, continue JESSCIA ROSENBAUM OTR/L - 11/04/2019 13:16 EDT Bathing [...] 153/102 last reading in supine. Taken by SUPERINTENDENT OF GENERATION. 144/103 seated EOB. Pt left up in [...] JESSICA ROSENBAUM OTR/L - 11/04/2019 13:16 EDT Electronically signed by Gay [facility] Conversion Strategic Partner Development Manager Cerner at 11/12/2022 9:34 PM CDT documented in this encounter Plan of Treatment Not on file documented as of this encounter Visit Diagnoses Not on filedocumented in this encounter
--- OUTSIDE RECORDS SUMMARY | 2025-02-21 21:29 | XMS_ITS | Encounter Summary ---
Author Organization [employer] ([place], [place], [place], [place]) Address [address] [place] [address] Care Team Providers Care Director Medicaid Name Role Phone Unavailable Primary Care Provider Unavailabl e Encounter Details Date Type Department Care Team (Late st Contact Info) Description 11/07/2019 Transcribed Document [facility] [facility] [place] [address] [place] [address] ProviderAgnieszka MD [address] [place], [place] [id number] Social History Tobacco Use Types Packs/Day Years Used Date Smoking Tobacco: Never Assessed Sex and Gender Information Value Date Recorded Sex Assigned at Not on file Legal Sex Male 2:38 PM CDT Gender Identity Not on file Sexual Orientation Not on file documented as of this encounter Miscellaneous Notes * Cerner Conversion Note - Historical ProviderMD - 11/07/2019 2:00 AM CDT Watch Guard Gate Details Entered On: 11/07/2019 5:13 EDT Performed [...]
--- OUTSIDE RECORDS SUMMARY | 2025-02-21 21:29 | XMS_ITS | Encounter Summary ---
Author Organization [employer] ([place], [place], [place], [place]) Address [address] [place] [address] Care Team Providers Care Garbage Stoker Name Role Phone Unavailable Primary Care Provider Unavailabl e Encounter Details Date Type Department Care Team (Late st Contact Info) Description 11/03/2019 Transcribed Document [facility] [place] [facility] [place] [address] ProviderAgnieszka MD [address] [place], [place] [address] Social History Tobacco Use Types Packs/Day Years [...] mL: 2 Gram, 100 mL/Hr, IV Piggyback, [id number] lactobacillus acidophilus: 1 Cap, Oral, Daily vancomycin + Sodium Chloride 0.9% intravenous solution 250 mL: 1,250 mg, 250 mL/Hr, IV Piggyback, [id number] Physical Examination VS/Measurements Vitals Signs (last 24 [...] EDT Height Source Stated Height Entry Format [place] Height/Length, ISRAELI (ft) 5 ft Height/Length ISRAELI 9 Inch CLINICALHEIGHT 175.26 cm [place] Body Weight 70 kg Weight Source Standing scale Weight Entry Format [place] Weight Liberian lb 178 lb Weight Liberian oz 6 oz CLINICALWEIGHT 81.08 kg Body Surface Area (BSA) 1.97 m2 Body Mass Index 26.4 kg/m2 HI 11/02/2019 0:47 EDT Height Source Stated Height Entry Format [place] Height/Length, ISRAELI (ft) 5 ft Height/Length ISRAELI 9 Inch CLINICALHEIGHT 175.26 cm [place] Body Weight 69.73 kg Weight Source, ED Critical estimated dosing weight Weight Entry Format [place] Weight Liberian lb 205 lb CLINICALWEIGHT 93.18 kg Body [...]
--- OUTSIDE RECORDS SUMMARY | 2025-02-21 21:29 | XMS_ITS | Encounter Summary ---
Author Organization [employer] ([place], [place], [place], [place]) Address [address] [place] [address] Care Team Providers Care Recruitment Specialist Name Role Phone Unavailable Primary Care Provider Unavailabl e Encounter Details Date Type Department Care Team (Late st Contact Info) Description 12/22/2018 Transcribed Document [facility] [place] [facility] [place] [address] ProviderAgnieszka MD [address] [place], [place] [address] Social History Tobacco Use Types Packs/Day Years Used Date Smoking Tobacco: Never Assessed Sex and Gender Information Value Date Recorded Sex Assigned at Not on file Legal Sex Male 2:38 PM CDT Gender Identity Not on file Sexual Orientation Not on file documented as of this encounter Miscellaneous Notes * Cerner Conversion Note - Historical ProviderMD - 12/22/2018 1:14 PM CDT [facility] Main OR PACU Summary Primary Physician: HEIDE KAT MD-[facility] Finalized Date/Time: 12/22/18 21:02:24 Pt. Name: SIMBA MAYEN JR/Sex: 1950 Male Med Rec #: [id number] Physician: HEIDE KAT MD-SN Financial #: [id number] Pt. Type: I Room/Bed: 63/1 Admit/Disch: 12/22/18 06:36:00 - Institution: [facility] Main OR PACU I Case Times Entry [...]
--- OUTSIDE RECORDS SUMMARY | 2025-02-21 21:29 | XMS_ITS | Encounter Summary ---
Author Organization [employer] ([place], [place], [place], [place]) Address [address] [place] [address] Care Team Providers Care Director Of Advertising Sales Name Role Phone Unavailable Primary Care Provider Unavailabl e Encounter Details Date Type Department Care Team (Late st Contact Info) Description 12/22/2018 Transcribed Document [facility] [place] [facility] [place] [address] ProviderAgnieszka MD [address] [place], [place] [id number] Social History Tobacco Use Types Packs/Day Years [...]
--- OUTSIDE RECORDS SUMMARY | 2025-02-21 21:29 | XMS_ITS | Encounter Summary ---
Author Organization [employer] ([place], [place], [place], [place]) Address [address] [place] [address] Care Team Providers Care In Store Marketer Name Role Phone Unavailable Primary Care Provider Unavailabl e Encounter Details Date Type Department Care Team (Late st Contact Info) Description 11/03/2019 Transcribed Document [facility] [place] Family Medicine [address] [place] [address] ProviderAgnieszka MD [address] [place] [address] Social History Tobacco Use Types [...] 11/04/2019 12:30 EDT Assisted by, PT : field technical support consultant/aide LILA PIERCE, PT - 11/04/2019 11:21 EDT [...] LILA PIERCE, PT - 11/04/2019 12:30 EDT Java Portal Developer Goals Mobility/Bed Mobility LTG PT Grid Goal [...] Anticipated Discharge to : Unit, rehabilitation, Unit, penitentiary LILA PIERCE, PT - 11/04/2019 12:[address] [facility] PT Charges Gait Training Each 15 Min : 2 LILA PIERCE PT - 11/04/2019 11:21 EDT documented in this encounter Plan of Treatment Not on file documented as of this encounter Visit Diagnoses Not on filedocumented in this encounter
--- OUTSIDE RECORDS SUMMARY | 2025-02-21 21:29 | XMS_ITS | Encounter Summary ---
Author Organization [email or web address] ([place], [place], [place], [place]) Address [address] [place] [address] Care Team Providers Care Semi Driver Name Role Phone Unavailable Primary Care Provider Unavailabl e Encounter Details Date Type Department Care Team (Late st Contact Info) Description 11/04/2019 Transcribed Document [facility] [place] Family Medicine [address] [place] [address] ProviderAgnieszka MD [address] [place], [place] [address] Social History Tobacco Use Types Packs/Day Years Used Date Smoking Tobacco: Never Assessed Sex and Gender Information Value Date Recorded Sex Assigned at Not on file Legal Sex Male 2:38 PM CDT Gender Identity Not on file Sexual Orientation Not on file documented as of this encounter Miscellaneous Notes * Cerner Conversion Note - Historical ProviderMD - 11/04/2019 2:00 AM CDT Carbon Dioxide Operator Details Entered On: 11/04/2019 4:42 EDT Performed On: 11/04/2019 2:00 EDT by Radha Josue [facility] Order Details Transport Mode Order Detail : Stretcher/Gurney Isolation Precautions Order Detail : Standard Precautions Order Detail : N/A IV Order Detail : 1 Oxygen Order Detail : 0 Nurse Collect Order Detail : 0 Lift/Transfer : Independent Central Line Order Detail : No Room Service : Not Appropriate Arterial Line : No Radha Josue [facility] - 11/04/2019 4:41 EDT Electronically signed by Gay Centeno Conversion [employer] Consumer Sciences Professor Cerner at 11/12/2022 9:37 PM CDT documented in this encounter Plan of Treatment Not on file documented as of this encounter Visit Diagnoses Not on filedocumented in this encounter
--- OUTSIDE RECORDS SUMMARY | 2025-02-21 21:29 | XMS_ITS | Encounter Summary ---
Author Organization [employer] ([place], [place], [place], [place]) Address [address] [place] [address] Care Team Providers Care Leather Goods I Assembler Name Role Phone Unavailable Primary Care Provider Unavailabl e Encounter Details Date Type Department Care Team (Late st Contact Info) Description 11/06/2019 Transcribed Document [facility] Neurology - [address] [facility] [address] [place] [address] Heide Akers MD [address] [place] [address] Social History Tobacco Use Types [...]
--- OUTSIDE RECORDS SUMMARY | 2025-02-21 21:29 | XMS_ITS | Encounter Summary ---
Author Organization [employer] ([place], [place], [place], [place]) Address [address] [place] [address] Care Team Providers Care Director Video Name Role Phone Unavailable Primary Care Provider Unavailabl e Encounter Details Date Type Department Care Team (Late st Contact Info) Description 11/04/2019 Transcribed Document [facility] [place] [facility] [place] [address] ProviderAgnieszka MD [address] [place], [place] [id number] Social History Tobacco Use Types Packs/Day Years [...] 1950 Associated Diagnoses: None Author: EUGENIO BRAXTON, [facility] 69yoM with Low Back Pain - [...]
--- OUTSIDE RECORDS SUMMARY | 2025-02-21 21:29 | XMS_ITS | Encounter Summary ---
Author Organization [employer] ([place], [place], [place], [place]) Address [address] [place] [address] Care Team Providers Care Cabin Equipment Supervisor Name Role Phone Unavailable Primary Care Provider Unavailabl e Encounter Details Date Type Department Care Team (Late st Contact Info) Description 11/06/2019 Transcribed Document [facility] [place] [address] [place] [address] ProviderAgnieszka MD [address] [place], [place] [id number] Social History Tobacco Use Types Packs/Day Years Used Date Smoking Tobacco: Never Assessed Sex and Gender Information Value Date Recorded Sex Assigned at Not on file Legal Sex Male 2:38 PM CDT Gender Identity Not on file Sexual Orientation Not on file documented as of this encounter Miscellaneous Notes * Cerner Conversion Note - Agnieszka ProviderMD - 11/06/2019 1:02 PM CDT [facility] Main OR IntraOp Summary Primary Physician: HEIDE KAT MD-SNU Finalized Date/Time: 11/07/19 12:14:47 Pt. Name: EILEEN MAYEN JR/Sex: 1950 Male Med Rec #: [id number] Physician: LORENA SAGASTUME MD-INT Financial #: [id number] Pt. Type: I Room/Bed: [facility] Admit/Disch: 11/02/19 02:59:00 - Institution: [facility] IntraOp Case Attendance Entry 1 [...] Case Attendee ANNABELLE ELDER, RN ZEINAB CABRERA, ASSOCIATE MATERIAL HANDLER Role Performed Licensed Clinician, First Scrub, First Time In 11/06/19 12:39:00 11/06/19 12:39:00 Time Out 11/06/19 14:40:00 11/06/19 14:40:00 Procedure Thoracic Laminectomy Thoracic Laminectomy Other Attendee Superficial Wound Closed By: Last Modified By: ANNABELLE ELDER RN SMITH, MYRIAH L., RN 11/06/19 14:39:34 11/06/19 14:39:34 [facility] IntraOp Case Attendance Audit 11/06/19 14:39:34 Cash Application Representative: ISIAH Modifier: SMITHML 1 <+> Time Out 1 <*> Procedure Thoracic Laminectomy 2 <*> Procedure Thoracic Laminectomy 3 <+> Time Out 3 <*> Procedure Thoracic Laminectomy 4 <+> Time Out 4 <*> Procedure Thoracic Laminectomy 5 <+> Time Out 5 <*> Procedure Thoracic Laminectomy 11/06/19 14:28:47 Cash Application Representative: ISIAH Modifier: SMITHML <+> 1 Procedure <+> 2 Procedure <+> 3 Procedure <+> 4 Procedure <+> 5 Procedure 11/06/19 14:28:11 Cash Application Representative: ISIAH Modifier: SMITHML 2 <+> Time In 2 <-> Procedure Lumbar Fusion Posterior 3 <-> Procedure Lumbar Fusion Posterior 4 <+> Time In 4 <-> Procedure Lumbar Fusion Posterior 5 <+> Time In 5 <-> Procedure Lumbar Fusion Posterior [facility] IntraOp Case Times Entry 1 Patient In Room Time 11/06/19 12:39:00 Out Room Time 11/06/19 14:40:00 Anesthesia Start Time 11/06/19 12:39:00 Stop Time 11/06/19 14:40:00 Surgery / Procedure Times Start Time 11/06/19 13:02:00 Stop Time 11/06/19 14:15:00 Last Modified By: ANNABELLE ELDER RN 11/06/19 14:39:04 [facility] IntraOp Case Times Audit 11/06/19 14:39:04 Cash Application Representative: SMITHML Modifier: SMITHML <+> 1 Out Room Time <+> 1 Stop Time 11/06/19 14:27:07 Cash Application Representative: SMITHML Modifier: SMITHML <+> 1 Stop Time 11/06/19 13:02:31 Cash Application Representative: SMITHML Modifier: SMITHML <+> 1 Start Time [facility] IntraOp Cautery Entry 1 Entry 2 ESU Identification Cautery Type Monopolar ESU BiPolar ESU Cautery Type Comments ID Number [id number] ID Type Hospital Number Hospital Number Cautery [...] Condition After Comment Last Modified By: ANNABELLE ELEDR RN SMITH, MYRIAH L., RN 11/06/19 13:08:54 11/06/19 13:08:54 [facility] IntraOp Communication Entry 1 Communication To Family/Significant other Comment spoke to family preoperatively Communication By ANNABELLE ELDER RN Date and Time 11/06/19 13:04:00 Last Modified By: ANNABELLE ELDER RN 11/06/19 13:04:26 [facility] IntraOp Counts Verification Entry 1 Procedure Thoracic Laminectomy Count Info Count Type Sponge, Sharps, Miscellaneous Counts Verification Baseline/pre-procedure Sequence Count Results Not Applicable Counts Performed By Count Performed By ZEINAB CABRERA, ASSOCIATE MATERIAL HANDLER (Scrub) Count Performed By ANNABELLE ELDER RN (RN) Last Modified By: ANNABELLE ELDER RN 11/06/19 14:28:48 [facility] IntraOp Counts Verification Audit 11/06/19 14:28:48 Cash Application Representative: ISIAH Modifier: SMITHML <+> 1 Procedure 11/06/19 14:28:12 Cash Application Representative: SMITHML Modifier: SMITHML 1 <-> Procedure Lumbar Fusion Posterior [facility] IntraOp Counts Final Entry 1 Procedure Thoracic Laminectomy Final Count Info Count Type Sponge, Sharps, Miscellaneous Counts Verification Skin Closure/end of Sequence procedure Count Results Correct, surgeon notified Counts Performed By Count Performed By ZEINAB CABRERA ASSOCIATE MATERIAL HANDLER (Scrub) Count Performed By ANNABELLE ELDER RN (RN) Last Modified By: ANNABELLE ELDER RN 11/06/19 14:28:49 [facility] IntraOp Counts Final Audit 11/06/19 14:28:49 Cash Application Representative: SMITHML Modifier: SMITHML <+> 1 Procedure 11/06/19 14:28:13 Cash Application Representative: ISIAH Modifier: SMITHML 1 <-> Procedure Lumbar Fusion Posterior [facility] IntraOp Cultures and Spec Summary Entry 1 Cultrures and Specimens Specimen Ordered: Yes Test(s) Culture(s)/Microbiology Requested/Final Disposition Last Modified By: ANNABELLE ELDER RN 11/06/19 13:12:47 General Comments: surgical swabs tissue for culture [facility] IntraOp Departure from OR Entry 1 Integumentary Assessment Integumentary WDL with patient Assessment WDL specific variances Patient's Normal incision Integumentary Variance(s) Transfer/Handoff Transfer to PACU Phase I Handoff Method Bedside/Face to face, Phone call Post-op Transport Stretcher/Gurney Via Patient Transport URIEL MATOS MD-ANS, Accompanied by ANNABELLE ELDER RN Last Modified By: ANNABELLE ELDER RN 11/06/19 13:12:37 [facility] IntraOp Dressing and Packing Entry 1 Type Dressing Location back Wound Dressing Item Occlusive dressing Applied By HEIDE KAT MD-SNU Other Comments neosporin Last Modified By: ANNABELLE ELDER RN 11/06/19 13:12:13 [facility] IntraOp Fire Risk Assessment Entry [...] Modified By: ANNABELLE ELDER RN 11/06/19 13:05:27 [facility] IntraOp General Case Oracle Financial Application Developer 1 Case Information OR OR [facility] Case Level 1 Room Verified Yes Wound Class I - Clean Specialty SN Neurosurgery Anesthesia Type General ASA Class 3E Diagnosis Preop Diagnosis thoracic epidural hematoma Postop Same As Preop No Postop Diagnosis see drs post op notes Last Modified By: ANNABELLE ELDER RN 11/06/19 13:05:13 [facility] IntraOp Intraoperative Assessment Entry 1 [...] Modified By: ANNABELLE ELDER RN 11/06/19 13:07:57 [facility] IntraOp Intraoperative Equipment Entry 1 Type Equipment Equipment Equipment Lithotripsy Machine ID Number [id number] Intraop Monitoring Antiembolic Devices Antiembolic Devices Sequential compression device, knee high Antiembolic Device Bilateral Location Antiembolic Device [id number] ID Number Scopes Photo/Video Documentation Last Modified By: ANNABELLE ELDER RN 11/06/19 13:08:16 [facility] IntraOp Medication Admin Entry 1 Entry 2 Entry 3 Medication/Irrigant Bacitracin 50,00units lidocaine 1% w/ Marcaine 0.25% 30ml powder vial epinephrine 1:100,000 vial - [id number] 30ml vial - [id number] Combo Med List Time Administered Route of irrigation local local Administration Dose Dose 17959 10 20 Unit of Measure units ml [...] SPNG SURGFOAM Neosporin 15Gm ointment thrombin 5000units [id number] - [id number] topical powder - [id number] Combo Med List 1 - Combo Med [...] Entry 7 Medication/Irrigant vancomycin 1Gm vial - [id number] Combo Med List Time Administered Route of topical Administration Dose Dose 1 Unit of Measure gram Volume Administered By EHIDE KAT MD-SNLanie Procedure Irrigation Irrigant Volume In Irrigant Volume Out Last Modified By: ANNABELLE ELDER RN 11/06/19 13:11:50 [facility] IntraOp Patient Positioning Entry 1 Procedure [...] By HEIDE KAT MD-SNLanie, MARLEN SHETH MD-ANS, ANNABELLE ELDER, RN, ZEINAB CABRERA, CAYETANO Position Verified Positioning Yes Verified by Anesthesia Positioning Yes Verified by Surgeon Last Modified By: ANNABELLE ELDER RN 11/06/19 14:28:48 [facility] IntraOp Patient Positioning Audit 11/06/19 14:28:48 Cash Application Representative: ISIAH Modifier: ISIAH <+> 1 Procedure 11/06/19 14:28:12 Cash Application Representative: ISIAH Modifier: ISIAH 1 <-> Procedure Lumbar Fusion Posterior [facility] IntraOp Sign In Entry 1 Patient, [...] Modified By: ANNABELLE ELDER RN 11/06/19 13:04:05 [facility] IntraOp Sign Out Entry 1 [...] Modified By: ANNABELLE ELDER RN 11/06/19 14:39:33 [facility] IntraOp Skin Prep Entry 1 Procedure Thoracic Laminectomy Prescribed N/A Pre-Surgical Prep Completed Prep Area back Intraop Prep Integumentary WDL with patient Assessment WDL specific variances WDL Patient gilson and drain in Exceptions place Prep Agents Alcohol, Chloraprep, Chlorhexadine gluconate Prep by HEIDE KAT MD-SNU Hair Removal Methods No hair removal performed Last Modified By: ANNABELLE ELDER RN 11/06/19 14:28:49 [facility] IntraOp Skin Prep Audit 11/06/19 14:28:49 Cash Application Representative: ISIAH Modifier: SMITHML <+> 1 Procedure 11/06/19 14:28:12 Cash Application Representative: ISIAH Modifier: SMITHML 1 <-> Procedure Lumbar Fusion Posterior [facility] IntraOp Surgical Procedures Entry 1 Procedure Thoracic Laminectomy Additional thoracic laminectomy, Procedure I&D Description Primary Procedure Yes Primary Surgeon HEIDE KAT MD-SNU Start 11/06/19 13:02:00 Stop 11/06/19 14:15:00 Anesthesia Type General Specialty SN Neurosurgery Wound Class I - Clean Last Modified By: ANNABELLE ELDER RN 11/06/19 14:28:41 [facility] IntraOp Temp Regulation Devices Entry 1 Temp Regulation Temperature Forced Air Warming Regulation Device device, Room temperature, Warm blankets Temperature Upper body, Lower body Regulation Site Temperature URIEL MATOS MD-ANS Regulation Device Applied by Last Modified By: ANNABELLE ELDER RN 11/06/19 13:20:01 [facility] IntraOP Time Out Entry 1 Procedure [...] Modified By: ANNABELLE ELDER RN 11/06/19 14:28:49 [facility] IntraOP Time Out Audit 11/06/19 14:28:49 Cash Application Representative: ISIAH Modifier: SMITHML <+> 1 Procedure to be Performed 11/06/19 14:28:13 Cash Application Representative: ISIAH Modifier: SMITHML 1 <-> Procedure to be Performed Lumbar Fusion Posterior Case Comments <None> Finalized By: JUNIE ROWLEY Document Signatures Signed By: ANNABELLE ELDER RN 11/06/19 14:39 ROWLEYJUNIE 11/07/19 12:14 Unfinalized History Date/Time Username Reason for Unfinalizing Freetext Reason for Unfinalizing 11/07/19 12:10 WATTSDR Correct Billing documented in this encounter Plan of Treatment Not on file documented as of this encounter Visit Diagnoses Not on filedocumented in this encounter
--- OUTSIDE RECORDS SUMMARY | 2025-02-21 21:29 | XMS_ITS | Encounter Summary ---
Author Organization [employer] ([place], [place], [place], [place]) Address [address] [place] [address] Care Team Providers Care Boat And Plant Utility Supervisor Name Role Phone Unavailable Primary Care Provider Unavailabl e Encounter Details Date Type Department Care Team (Late st Contact Info) Description 11/03/2019 Transcribed Document [facility] [place] Family Medicine [address] [place] [address] ProviderAgnieszka MD [address] [place] [place] [address] Social History Tobacco Use Types Packs/Day Years [...]
--- OUTSIDE RECORDS SUMMARY | 2025-02-21 21:29 | XMS_ITS | Encounter Summary ---
Author Organization [employer] ([place], [place], [place], [place]) Address [address] [place] [address] Care Team Providers Care Poker Supervisor Name Role Phone Unavailable Primary Care Provider Unavailabl e Encounter Details Date Type Department Care Team (Late st Contact Info) Description 11/07/2019 Transcribed Document [facility] Neurology - [address] [facility] [address] [place] [address] Heide Akers MD [address] [place] [address] Social History Tobacco Use Types [...]
--- OUTSIDE RECORDS SUMMARY | 2025-02-21 21:29 | XMS_ITS | Encounter Summary ---
Author Organization [employer] ([place], [place], [place], [place]) Address [address] [place] [address] Care Team Providers Care Chemist Water Purification Name Role Phone Unavailable Primary Care Provider Unavailabl e Encounter Details Date Type Department Care Team (Late st Contact Info) Description 11/03/2019 Transcribed Document [facility] [place] Family Medicine [facility] [place] [address] ProviderAgnieszka MD [address] [place], [place] [id number] Social History Tobacco Use Types Packs/Day Years [...] On: 11/03/2019 14:32 EDT by ELKE VELÁZQUEZ, Multifocal Button Inspector-Funeral Service Licensee Care Management Progress Note Discharge Arrangements : [...] Attend Multidisciplinary Rounds? : No ELKE VELÁZQUEZ, Multifocal Button Inspector-Funeral Service Licensee - 11/03/2019 14:32 EDT Narrative Progress Note Narrative Progress Note : Patient is scheduled for an MRI on and surgery on Friday. He reported wanting to go to [facility]. Cm sent referral packet to [facility]. ELKE VELÁZQUEZ Multifocal Button Inspector-Funeral Service Licensee - 11/03/2019 14:32 EDT documented in this encounter Plan of Treatment Not on file documented as of this encounter Visit Diagnoses Not on filedocumented in this encounter
--- OUTSIDE RECORDS SUMMARY | 2025-02-21 21:29 | XMS_ITS | Encounter Summary ---
Author Organization [employer] ([place], [place], [place], [place]) Address [address] [place] [address] Care Team Providers Care Consulting Sales Manager Name Role Phone Unavailable Primary Care Provider Unavailabl e Encounter Details Date Type Department Care Team (Late st Contact Info) Description 11/07/2019 Transcribed Document [facility] [place] Family Medicine [address] [place] [address] ProviderAgnieszka MD [address] [place], [place] [address] Social History Tobacco Use Types Packs/Day Years [...] LILA PIERCE PT - 11/07/2019 11:49 EDT Electronically signed by Gay Centeno Conversion Automatic Shirring Machine Operator Cerner at 11/12/2022 9:44 PM CDT documented in this encounter Plan of Treatment Not on file documented as of this encounter Visit Diagnoses Not on filedocumented in this encounter
--- OUTSIDE RECORDS SUMMARY | 2025-02-21 21:29 | XMS_ITS | Encounter Summary ---
Author Organization [employer] ([place], [place], [place], [place]) Address [address] [place] [address] Care Team Providers Care Actuarial Technician Name Role Phone Unavailable Primary Care Provider Unavailabl e Encounter Details Date Type Department Care Team (Late st Contact Info) Description 11/07/2019 Transcribed Document [facility] Radiology [address] [place] [address] Carlo Evans MD [address] [place], [place] [address] Social History Tobacco Use Types Packs/Day Years [...] 101 ten minutes later per documentation. Oriented /. called and discussed paralysis and positive blood culture today. Other than patient reporting inability to feel or move lower legs and having intermittent back pain at incision site he is a negative ROS. Patient denies having fever/chills, SOA, cough, sore throat, myalgias, chest pain, palpitations, n/v/d, abdominal pain, and dysuria. ID and NSY following. 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 Vital Signs T: 37.2 [...] acute distress]. Neurologic: [CN I-XII intact, Equal tour leader strength bilaterally, no movement or feeling in [...] Vanc, PICC ordered 11/04 in prep for termite exterminator helper abx -Patient hemodynamically stable, afebrile though low [...] to be followed. PICC in place, needs termite exterminator helper abx recs prior to discharge. Thyroid US [...] Diagnostic Results Radiology Results (Last 48 hours) [id number] -- 11/02/2019 02:59 MRI Spine Thoracic WO [...] Lymph # 1.76 x10(3)/uL 11/07/2019 04:00 EDT [place] % 14.8 % (High) 11/07/2019 04:00 EDT [place] # 1.07 K/uL (High) 11/07/2019 04:00 EDT [...]
--- OUTSIDE RECORDS SUMMARY | 2025-02-21 21:29 | XMS_ITS | Encounter Summary ---
Author Organization [employer] ([place], [place], [place], [place]) Address [address] [place] [address] Care Team Providers Care Sheriff'S Officer Name Role Phone Unavailable Primary Care Provider Unavailabl e Encounter Details Date Type Department Care Team (Late st Contact Info) Description 12/22/2018 Transcribed Document [facility] [place] [facility] [place] [address] ProviderAgnieszka MD [address], [place] [id number] Social History Tobacco Use Types Packs/Day Years [...]
--- OUTSIDE RECORDS SUMMARY | 2025-02-21 21:30 | XMS_ITS | Encounter Summary ---
Author Organization [employer] ([place], [place], [place], [place]) Address [address] [place] [address] Care Team Providers Care Field Coordinator Name Role Phone Unavailable Primary Care Provider Unavailabl e Encounter Details Date Type Department Care Team (Late st Contact Info) Description 11/06/2019 Transcribed Document [facility] [place] [facility] [place] [address] ProviderAgnieszka MD [address], [place] [id number] Social History Tobacco Use Types Packs/Day Years [...] cultures Thank You, Nate Calles, PharmD PGY1 Delivery Mgr Pager: [phone], Ext. [phone] Electronically signed by Gay Centeno Conversion Marine Equipment Sales Engineer Cerner at 11/12/2022 9:33 PM CDT documented in this encounter Plan of Treatment Not on file documented as of this encounter Visit Diagnoses Not on filedocumented in this encounter
--- OUTSIDE RECORDS SUMMARY | 2025-02-21 21:30 | XMS_ITS | Encounter Summary ---
Author Organization [employer] ([place], [place], [place], [place]) Address [address] [place] [address] Care Team Providers Care Manager Print Name Role Phone Unavailable Primary Care Provider Unavailabl e Encounter Details Date Type Department Care Team (Late st Contact Info) Description 12/22/2018 Transcribed Document [facility] Neurology - [address] [facility] [address] [place] [address] Mark Akers MD [address] [place] [address] Social History Tobacco Use Types [...] disease) of thoracic spine / SNOMED CT 6439384293 / Confirmed Scoliosis / SNOMED CT 715823983 / Confirmed Parkinson disease / SNOMED CT 02508079 / Confirmed History of obstructive sleep apnea / IMO 61561373 / Confirmed Arthritis / SNOMED CT 6518737 / Confirmed Colitis / SNOMED CT 5263385126 / Confirmed, Active Problems (6) Arthritis Colitis [...] of back, RLE weakness. Integumentary: Warm, Dry, [place]. Neurologic: Alert, Oriented. Psychiatric: Cooperative, Appropriate mood [...]
--- OUTSIDE RECORDS SUMMARY | 2025-02-21 21:30 | XMS_ITS | Encounter Summary ---
Author Organization [employer] ([place], [place], [place], [place]) Address [address] [place] [address] Care Team Providers Care Safety Lamp Keeper Name Role Phone Unavailable Primary Care Provider Unavailabl e Encounter Details Date Type Department Care Team (Late st Contact Info) Description 11/05/2019 Transcribed Document [facility] [place] Medicine [address] [place] [address] ProviderAgnieszka MD [address] [place], [place] [address] Social History Tobacco Use Types Packs/Day Years [...] Zavala MARK, PT - 11/05/2019 11:14 EDT documented in this encounter Plan of Treatment Not on file documented as of this encounter Visit Diagnoses Not on filedocumented in this encounter
--- OUTSIDE RECORDS SUMMARY | 2025-02-21 21:30 | XMS_ITS | Encounter Summary ---
Author Organization [employer] ([place], [place], [place], [place]) Address [address] [place] [address] Care Team Providers Care Train Gateman Name Role Phone Unavailable Primary Care Provider Unavailabl e Encounter Details Date Type Department Care Team (Late st Contact Info) Description 11/06/2019 Transcribed Document [facility] [place] [facility] [place] [address] ProviderAgnieszka MD [address] [place], [place] [id number] Social History Tobacco Use Types Packs/Day Years [...]
--- OUTSIDE RECORDS SUMMARY | 2025-02-21 21:30 | XMS_ITS | Encounter Summary ---
Author Organization [employer] ([place], [place], [place], [place]) Address [address] [place] [address] Care Team Providers Care Active Directory Architect Name Role Phone Unavailable Primary Care Provider Unavailabl e Encounter Details Date Type Department Care Team (Late st Contact Info) Description 12/16/2018 Transcribed Document [facility] [place] [facility] [place] [address] ProviderAgnieszka MD [address] [place] [address] Social History Tobacco Use Types [...] Source : Measured Height Entry Format : [place] Height, Feet : 5 ft(Converted to: 152 cm, 60 Inch) Height, Inches : 9 Inch(Converted to: 0 ft 9 Inch, 22.86 cm) Clinical Height : 175.26 cm Weight Source : Standing scale Weight Entry Format : [place] Clinical Dosing Weight : 84.55 kg Weight, Pounds : 186 lb Body Surface Area (BSA) : 2 m2 Body Mass Index : 27.5 kg/m2 (HI) [place] Body Weight : 70 kg MILTON GAMEZ RN - 12/16/2018 12:13 EDT documented in this encounter Plan of Treatment Not on file documented as of this encounter Visit Diagnoses Not on filedocumented in this encounter
--- OUTSIDE RECORDS SUMMARY | 2025-02-21 21:30 | XMS_ITS | Encounter Summary ---
Author Organization [facility] ([place], [place], [place], [place]) Address [address] [place] [address] Care Team Providers Care Manager Welding Name Role Phone Unavailable Primary Care Provider Unavailabl e Encounter Details Date Type Department Care Team (Late st Contact Info) Description 11/06/2019 Transcribed Document [facility] Neurology - [address] [facility] [address] [place] [id number] Mark Akers MD [address] [place] [address] Social History Tobacco Use Types [...] LOSS: 150 mL. DRAINS: Sam-Burger. COMPLICATIONS: None. /[id number] Mark Akers MD MPT/AQ / MPT / MODL /[id number] documented in this encounter Plan of Treatment Not on file documented as of this encounter Visit Diagnoses Not on filedocumented in this encounter
--- OUTSIDE RECORDS SUMMARY | 2025-02-21 21:30 | XMS_ITS | Encounter Summary ---
Author Organization [employer] ([place], [place], [place], [place]) Address [address] [place] [address] Care Team Providers Care Locomotive Operator Name Role Phone Unavailable Primary Care Provider Unavailabl e Encounter Details Date Type Department Care Team (Late st Contact Info) Description 11/06/2019 Transcribed Document [facility] [place] [facility] [place] [address] ProviderAgnieszka MD [address], [place] [id number] Social History Tobacco Use Types Packs/Day Years [...] 11/06/2019 16:19 EDT Electronically signed by Taryn [facility] Conversion Commission Broker Evelio at 11/12/2022 9:39 PM CDT documented in this encounter Plan of Treatment Not on file documented as of this encounter Visit Diagnoses Not on filedocumented in this encounter
--- OUTSIDE RECORDS SUMMARY | 2025-02-21 21:30 | XMS_ITS | Encounter Summary ---
Author Organization [employer] ([place], [place], [place], [place]) Address [address] [place] [address] Care Team Providers Care Independent Driver Name Role Phone Unavailable Primary Care Provider Unavailabl e Encounter Details Date Type Department Care Team (Late st Contact Info) Description 11/05/2019 Transcribed Document [facility] [place] [facility] [place] [address] ProviderAgnieszka MD [address] [place], [place] [address] Social History Tobacco Use Types Packs/Day Years [...] MiraLax: 17 Gram, Oral, Daily, PRN: Constipation [place] 10 mg-325 mg oral tablet: 1 Tab, [...] mL: 2 Gram, 100 mL/Hr, IV Piggyback, [id number] hydrALAZINE: 10 mg, IV Push, Q6H, PRN: Hypertension lactobacillus acidophilus: 1 Cap, Oral, Daily lidocaine 1% preservative-free injectable solution: 0.5 mL, IntraDermal, 1-Time morphine: 2 mg, IV Push, Q2H, PRN: Pain (Severe 7-10) sodium chloride 0.9% injectable solution: 10 mL, IV Push, Q8H vancomycin + Sodium Chloride 0.9% intravenous solution 250 mL: 1,250 mg, 250 mL/Hr, IV Piggyback, [id number] Pending Complete fentaNYL: 25 mcg, IV Push, Q10Min Documented Medications Documented Azilect 1 mg oral tablet: 1 Tab, Oral, Daily, 30 Tab, 0 Refill(s) Remicade: 10 mg/kg, IntraVENous, [id number], for Ulcerative Colitis; Last dose: 09/29/2019, 0 [...] 0.9% 50 mL 2 Gram, IV Piggyback, [id number] docusate sodium 100 mg cap 100 mg 1 Cap, Oral, BID lactobacillus acidophilus cap 1 Cap, Oral, Daily lidocaine 1% *PF* inj 2 mL 0.5 mL, IntraDermal, 1-Time rasagiline 1 mg tab 1 mg 1 Tab, Oral, Daily vancomycin + NaCl 0.9% 250 mL 1,250 mg, IV Piggyback, [id number] Continuous: (1) lactated ringers 1,000 mL 1,000 [...] All Problems Parkinson disease / SNOMED CT 20242396 / Confirmed Scoliosis / SNOMED CT 549005751 / Confirmed Colitis / SNOMED CT 7658200672 / Confirmed Arthritis / SNOMED CT 9121554 / Confirmed 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
--- OUTSIDE RECORDS SUMMARY | 2025-02-21 21:30 | XMS_ITS | Encounter Summary ---
Author Organization [employer] ([place], [place], [place], [place]) Address [address] [place] [address] Care Team Providers Care Supervisor Word Processing Name Role Phone Unavailable Primary Care Provider Unavailabl e Encounter Details Date Type Department Care Team (Late st Contact Info) Description 12/22/2018 Transcribed Document [facility] [place] Pending [facility] to [facility] [place] [address] ProviderAgnieszka MD [address], [place] [id number] Social History Tobacco Use Types Packs/Day Years [...]
--- OUTSIDE RECORDS SUMMARY | 2025-02-21 21:30 | XMS_ITS | Clinical Summary ---
Author Organization [facility] Address [address] [place] [address] Care Team Providers Care Commissary Clerk Name Role Phone Faustino Jones MD Primary Care Provider [phone] Allergies No known active allergies Medications FLUoxetine [...] of 2) 10/16/1999 UKY-Depression Screening 02/12/2023 02/12/2022 [id number] Vaccine ( - 2024-25 season) 2024 02/07/2022, [...] Recently Relevant to Health Maintenance Insurance [id number] [place] [id number] [place] [address] Care Teams Commissary Clerk Relationship Specialty Start Date End Date Faustino Jones MD [address] [place] [address] #1 [address]1 [place] [id number] PCP - General 12/08/20
--- OUTSIDE RECORDS SUMMARY | 2025-02-21 21:30 | XMS_ITS | Encounter Summary ---
Author Organization [employer] ([place], [place], [place], [place]) Address [address] [place] [address] Care Team Providers Care Pediatric Nephrologist Name Role Phone Unavailable Primary Care Provider Unavailabl e Encounter Details Date Type Department Care Team (Late st Contact Info) Description 11/05/2019 Transcribed Document [facility] Family Medicine [address] [place] [address] ProviderAgnieszka MD [address] [place], [place] [id number] Social History Tobacco Use Types Packs/Day Years Used Date Smoking Tobacco: Never Assessed Sex and Gender Information Value Date Recorded Sex Assigned at Not on file Legal Sex Male 2:38 PM CDT Gender Identity Not on file Sexual Orientation Not on file documented as of this encounter Miscellaneous Notes * Cerner Conversion Note - Agnieszka ProviderMD - 11/05/2019 9:27 AM CDT [facility] Main OR IntraOp Summary Primary Physician: HEIDE KAT MD-SNU Finalized Date/Time: 11/06/19 17:47:55 Pt. Name: EILEEN MAYEN JR, D.O.B./Sex: 1950 Male Med Rec #: [id number] Physician: LORENA SAGASTUME MD-INT Financial #: [id number] Pt. Type: I Room/Bed: [facility]/ Admit/Disch: 11/02/19 02:59:00 - Institution: [facility] IntraOp Case Attendance Entry 1 Entry 2 Entry 3 Case Attendee HEIDE KAT WASSON, SANDRA D, RN COMPTON, TRACY, RN MD-DIVYA Role Performed Surgeon/Proceduralist, Pillowcase Sewer, First Pillowcase Sewer, First First Time In 11/05/19 08:26:00 11/05/19 [...] COURTNEY, PA-INT Role Performed Scrub, First Physician certified medical technician assistant EDGE DYER/Nurse Quality Officer Time In 11/05/19 08:26:00 11/05/19 08:26:00 11/05/19 [...] ALCAZAR, OTHER, ATTENDEE #1 Claribel Monteiro MD-ANS District Manager Major Accounts Sales Role Performed Anesthesiologist of Vendor Direct Care Worker Record Time In 11/05/19 08:26:00 11/05/19 08:26:00 [...] MORA, RN MARLEN SHETH MD-ERYN Role Performed Pillowcase Sewer, Second Pillowcase Sewer, First Anesthesiologist Time In 11/05/19 09:25:00 11/05/19 11:00:00 11/05/19 11:16:00 Time Out 11/05/19 09:35:00 11/05/19 11:40:00 11/05/19 12:04:00 Procedure Lumbar Fusion Posterior Lumbar Fusion Posterior Lumbar Fusion Posterior 3 Level 3 Level 3 Level Other [facility]endee [facility] ED[facility] LUNCH RELIEF Superficial Wound Closed By: Last Modified By: ARCHIE BENITEZ, RN ARCHIE BENITEZ, RN ARCHIE BENITEZ, RN 11/05/19 09:38:14 11/05/19 11:54:30 11/05/19 11:54:30 [facility] IntraOp Case Attendance Audit 11/05/19 12:08:12 Repairer Art Objects: WASSONSY Modifier: WASSONSY 1 <+> Time Out [...] Lumbar Fusion Posterior 3 Level 11/05/19 12:07:32 Repairer Art Objects: WASSONSY Modifier: WASSONSY 12 <+> Time Out 12 <*> Procedure Lumbar Fusion Posterior 3 Level 11/05/19 11:54:30 Repairer Art Objects: WASSONSY Modifier: WASSONSY 9 <+> Time Out 9 <*> Procedure Lumbar Fusion Posterior 3 Level <+> 11 Case Attendee <+> 11 Role Performed <+> 11 Time In <+> 11 Time Out <+> 11 Procedure <+> 11 Other Attendee <+> 12 Case Attendee <+> 12 Role Performed <+> 12 Time In <+> 12 Procedure <+> 12 Other Attendee 11/05/19 09:38:14 Repairer Art Objects: WASSONSY Modifier: WASSONSY <+> 10 Case Attendee <+> 10 Role Performed <+> 10 Time In <+> 10 Time Out <+> 10 Procedure 11/05/19 09:35:41 Repairer Art Objects: WASSONSY Modifier: WASSONSY 1 <*> Procedure Lumbar [...] <*> Procedure Lumbar Fusion Posterior 3 Level [facility] IntraOp Case Times Entry 1 Patient In Room Time 11/05/19 08:26:00 Out Room Time 11/05/19 12:09:00 Anesthesia Start Time 11/05/19 08:26:00 Stop Time 11/05/19 12:09:00 Surgery / Procedure Times Start Time 11/05/19 09:27:00 Stop Time 11/05/19 11:37:00 Last Modified By: ANTON MORA RN 11/05/19 11:39:51 [facility] IntraOp Case Times Audit 11/05/19 12:07:57 Repairer Art Objects: BRADYCM Modifier: WASSONSY <+> 1 Out Room Time <+> 1 Stop Time 11/05/19 11:39:51 Repairer Art Objects: WASSONSY Modifier: BRADYCM <+> 1 Stop Time 11/05/19 09:36:28 Repairer Art Objects: WASSONSY Modifier: WASSONSY <+> 1 Start Time [facility] IntraOp Cautery Entry 1 Entry 2 ESU Identification Cautery Type Monopolar ESU BiPolar ESU Cautery Type Comments ID Number [id number] ID Type Hospital Number Hospital Number Cautery [...] ARCHIE BROWN RN 11/05/19 09:40:16 11/05/19 09:40:16 [facility] IntraOp Communication Entry 1 Communication To Family/Significant other Comment START Communication By ANTON MORA RN Date and Time 11/05/19 09:30:00 Last Modified By: ARCHIE BENITEZ RN 11/05/19 09:37:44 [facility] IntraOp Communication Audit 11/05/19 09:38:20 Repairer Art Objects: NIKI Modifier: EMMANUELSY 1 <*> Communication By ARCHIE BENITEZ, RN [facility] IntraOp Counts Verification Entry 1 Procedure Lumbar Fusion Posterior 3 Level Count Info Count Type Sponge, Sharps, Miscellaneous Counts Verification Baseline/pre-procedure Sequence Count Results Not Applicable Counts Performed By Count Performed By KENNY IGNACIO ST (Scrub) Count Performed By ARCHIE BENITEZ RN (RN) Last Modified By: ARCHIE BENITEZ RN 11/05/19 09:36:13 [facility] IntraOp Counts Final Entry 1 Procedure Lumbar Fusion Posterior 3 Level Final Count Info Count Type Sponge, Sharps Counts Verification Skin Closure/end of Sequence procedure Count Results Correct, surgeon notified Counts Performed By Count Performed By KENNY IGNACIO ST (Scrub) Count Performed By ANTON MORA RN (RN) Last Modified By: ANTON MORA RN 11/05/19 11:40:06 [facility] IntraOp Cultures and Spec Summary Entry 1 Cultrures and Specimens Specimen Ordered: Yes Test(s) Routine/Path-Lab, Requested/Final Culture(s)/Microbiology Disposition Last Modified By: ARCHIE BENITEZ RN 11/05/19 09:41:15 General Comments: A. EXPLANTED HARDWARE [facility] IntraOp Departure from OR Entry 1 Integumentary Assessment Integumentary WDL Assessment WDL Transfer/Handoff Transfer to PACU Phase I Handoff Method Phone call Handoff Reported to Simon Huang RN Post-op Transport Stretcher/Gurney Via Patient Transport HARITHA FUNES APRN, Accompanied by ARCHIE BENITEZ RN Last Modified By: ARCHIE BENITEZ RN 11/05/19 12:07:42 [facility] IntraOp Departure from OR Audit 11/05/19 12:07:42 Repairer Art Objects: WASSONSY Modifier: WASSONSY <+> 1 Handoff Reported to 11/05/19 12:02:19 Repairer Art Objects: WASSONSY Modifier: WASSONSY 1 <*> Patient Transport Accompanied by HRAITHA FUNES APRN [facility] IntraOp Drains and Tubes Entry 1 Device Type Zia Drain Size 15fr Drain/Tube Activity Inserted Drain/Tube Suction Bulb Drain/Tube Drainage Serosanguineous Device Location OP SITE Method of Drainage Compression Last Modified By: ANTON MORA RN 11/05/19 11:51:07 [facility] IntraOp Dressing and Packing Entry 1 Type Dressing Location OP SITE Wound Dressing Item Steristrip, Other Applied By RUDOLPH NASCIMENTO PA-INT Other Comments NEOSPORIN OINTMENT, STERISTRIPS, COVADERM Last Modified By: ARCHIE BENITEZ RN 11/05/19 10:43:35 [facility] IntraOp Fire Risk Assessment Entry 1 Fire Info Surgical Site or 1- Yes Incision Above the Xyphoid Open O2 Source 0- No (Mask or Cannula) Available Ignition 1- Yes (ESU, Laser, Light Source) Fire Risk 2 Assessment Score Fire Score Fire Risk Yes Assessment Complete Fire Risk ARHCIE BENITEZ personnel manager Verified By Fire Risk 11/05/19 08:25:00 Assessment Verified Date/Time Fire Risk Standard Fire Yes Safety Precautions Followed Last Modified By: ARCHIE BENITEZ RN 11/05/19 09:40:43 [facility] IntraOp General Case Service Representative 1 Case Information OR OR 10 [facility] Case Level 1 Room Verified Yes Wound Class I - Clean Specialty SN Neurosurgery Anesthesia Type General ASA Class 3 Diagnosis Preop Diagnosis SPINAL INSTABILITY, FRACTURE Postop Same As Preop No Postop Diagnosis SEE MD POST OP NOTE Last Modified By: ARCHIE BENITEZ RN 11/05/19 09:40:59 [facility] IntraOp General Case Data Audit 11/05/19 10:24:22 Repairer Art Objects: NIKI Modifier: NIKI <+> 1 Preop Diagnosis [facility] IntraOp Implant Log Entry 1 Entry 2 Entry 3 Type Implant (Synthetic) Implant (Synthetic) Implant (Synthetic) Implant Log Implant Type Bone Cement Hardware Hardware Tissue Implant Type Implant CEMENT SPINAL SCR SPNE ALIN FIX FEN SCR SPNE ALIN FIX FEN Identification [id number] Description Implant Quantity 2 4 4 Implant Site OP SITE OPSITE OPSITE Implant Identification Model Number Implant Identification Serial Number Implant [id number] Identification Lot Number Implant J&J:Depuy:Depuy Spine J&J:Depuy:Depuy Spine J&J:Depuy:Depuy Spine Identification Nursing Home Physician Name: Implant [id number] Identification Catalog Number Implant Size Implant Has an Yes Expiration Date Implant Expiration 10/25/21 Date Wasted Radioactive Material Time Implanted Tissue Implant Continue for Tissue Implant Documentation Tissue Identification Number Graft Prep Per Nursing Home Physician Instructions: Tissue Preparation Method: Reconstitution Solution: Reconstitution Solution Lot Number Reconstitution Solution Expiration Date: Thawing Solution Thawing Solution Lot Number Thawing Solution Expiration Date Preparation Materials, Other Preparation Materials, Other Lot Number Preparation Materials, Other Expiration Date Tissue Prepared/Processed By Nursing Home Physician Paperwork Completed Implant Type Comment Last Modified By: ANTON MORA RN BRADY, CHRISTINA M, RN WASSON, SANDRA D, RN 11/05/19 11:44:19 11/05/19 11:44:19 11/05/19 11:13:15 Entry 4 Entry 5 Entry 6 Type Implant (Synthetic) Implant (Synthetic) Implant (Synthetic) Implant Log Implant Type Hardware Hardware Hardware Tissue Implant Type Implant MIS SUNNI PLY SCRW SET RAE CONN EXPEDIUM 200MM RAE SPINE EXPEDIUM Identification [id number] Description Implant Quantity 14 2 1 Implant Site OPSITE OPSIE OPSTE Implant Identification Model Number Implant Identification Serial Number Implant Identification Lot Number Implant J&J:Depuy:Depuy Spine J&J:Depuy:Depuy Spine J&J:Depuy:Depuy Spine Identification Nursing Home Physician Name: Implant [id number] Identification Catalog Number Implant Size Implant Has an Expiration Date Implant Expiration Date Wasted Radioactive Material Time Implanted Tissue Implant Continue for Tissue Implant Documentation Tissue Identification Number Graft Prep Per Nursing Home Physician Instructions: Tissue Preparation Method: Reconstitution Solution: Reconstitution Solution Lot Number Reconstitution Solution Expiration Date: Thawing Solution Thawing Solution Lot Number Thawing Solution Expiration Date Preparation Materials, Other Preparation Materials, Other Lot Number Preparation Materials, Other Expiration Date Tissue Prepared/Processed By Nursing Home Physician Paperwork Completed Implant Type Comment Last Modified By: ARCHIE BENITEZ, ARCHIE BROWN RN WASSON, SANDRA D, RN 11/05/19 11:13:15 11/05/19 11:13:15 11/05/19 11:13:15 Entry 7 Entry 8 Type Implant (Synthetic) Implant (Synthetic) Implant Log Implant Type Hardware Hardware Tissue Implant Type Implant CONN VARIABLE CONN [place] BAND Identification OFFSET-[id number] OPEN/CLOSE-[id number] Description Implant Quantity 2 2 Implant Site OPSITE OPSITE Implant Identification Model Number Implant Identification Serial Number Implant Identification Lot Number Implant J&J:Depuy:Depuy Spine J&J:Depuy:Depuy Spine Identification Nursing Home Physician Name: Implant [id number] Identification Catalog Number Implant Size Implant Has an Expiration Date Implant Expiration Date Wasted Radioactive Material Time Implanted Tissue Implant Continue for Tissue Implant Documentation Tissue Identification Number Graft Prep Per Nursing Home Physician Instructions: Tissue Preparation Method: Reconstitution Solution: Reconstitution Solution Lot Number Reconstitution Solution Expiration Date: Thawing Solution Thawing Solution Lot Number Thawing Solution Expiration Date Preparation Materials, Other Preparation Materials, Other Lot Number Preparation Materials, Other Expiration Date Tissue Prepared/Processed By Nursing Home Physician Paperwork Completed Implant Type Comment Last Modified By: ARCHIE BENITEZ, ARCHIE BROWN RN 11/05/19 11:13:15 11/05/19 11:13:15 [facility] IntraOp Implant Log Audit 11/05/19 11:44:19 Repairer Art Objects: NIKI Modifier: BRADYCM 1 <*> Implant Identification Description CEMENT SPINAL CONFIDENCE-[id number] 1 <*> Implant Identification Lot Number [id number] 1 <*> Implant Identification Nursing Home Physician J&J:Depuy:Depuy Spine Name: 1 <*> Implant Expiration Date 10/25/21 1 <*> Implant Site OP SITE 1 <*> Implant Quantity 2 1 <*> Implant Identification Catalog [id number] Number 1 <*> Implant Type Bone Cement 1 <*> Implant Has an Expiration Date Yes 1 <*> Type Implant (Synthetic) 2 <*> Implant Identification Description SCR SPNE ALIN FIX FEN [id number] 2 <*> Implant Identification Nursing Home Physician J&J:Depuy:Depuy Spine Name: 2 <*> Implant Site OPSITE 2 <*> Implant Quantity 4 2 <*> Implant Identification Catalog [id number] Number 2 <*> Implant Type Hardware 2 <*> Type Implant (Synthetic) 3 <*> Implant Identification Description SCR SPNE ALIN FIX FEN [id number] 3 <*> Implant Identification Nursing Home Physician J&J:Depuy:Depuy Spine Name: 3 <*> Implant Site OPSITE 3 <*> Implant Quantity 4 3 <*> Implant Identification Catalog [id number] Number 3 <*> Implant Type Hardware 3 <*> Type Implant (Synthetic) 4 <*> Implant Identification Description MIS SUNNI PLY SCRW SET -[id number] 4 <*> Implant Identification Nursing Home Physician J&J:AGILE customer insight:AGILE customer insight Spine Name: 4 <*> Implant Site OPSITE 4 <*> Implant Quantity 14 4 <*> Implant Identification Catalog [id number] Number 4 <*> Implant Type Hardware 4 <*> Type Implant (Synthetic) 5 <*> Implant Identification Description [id number] 5 <+> Implant Identification Nursing Home Physician Name: 5 <+> Implant Site 5 <+> Implant Quantity 5 <+> Implant Identification Catalog Number 5 <*> Implant Type Hardware 5 <*> Type Implant (Synthetic) 6 <*> Implant Identification Description RAE CONN EXPEDIUM 200MM -[id number] 6 <*> Implant Identification Nursing Home Physician J&J:Depuy:Depuy Spine Name: 6 <*> Implant Site OPSIE 6 <*> Implant Quantity 2 6 <*> Implant Identification Catalog [id number] Number 6 <*> Implant Type Hardware 6 <*> Type Implant (Synthetic) 7 <*> Implant Identification Description RAE SPINE EXPEDIUM [id number] 7 <*> Implant Identification Nursing Home Physician J&J:Depuy:Depuy Spine Name: 7 <*> Implant Site OPSTE 7 <*> Implant Quantity 1 7 <*> Implant Identification Catalog [id number] Number 7 <*> Implant Type Hardware 7 <*> Type Implant (Synthetic) 8 <*> Implant Identification Description CONN VARIABLE OFFSET-957948 8 <*> Implant Identification Nursing Home Physician J&J:Elmeruy:Elmeruy Spine Name: 8 <*> Implant Site OPSITE 8 <*> Implant Quantity 2 8 <*> Implant Identification Catalog [id number] Number 8 <*> Implant Type Hardware 8 <*> Type Implant (Synthetic) 9 <-> Implant Identification Description CONN WEDDING BAND OPEN/CLOSE-908065 9 <-> Implant Identification Nursing Home Physician J&J:Depuy:Elmeruy Spine Name: 9 <-> Implant Site OPSITE 9 <-> Implant Quantity 2 9 <-> Implant Identification Catalog [id number] Number 9 <-> Implant Type Hardware 9 <-> Type Implant (Synthetic) 11/05/19 11:13:15 Repairer Art Objects: WASSONSY Modifier: WASSONSY <+> 2 Implant Identification Description <+> 2 Implant Identification Nursing Home Physician Name: <+> 2 Implant Site <+> 2 Implant Quantity <+> 2 Implant Identification Catalog Number <+> 2 Implant Type <+> 2 Type <+> 3 Implant Identification Description <+> 3 Implant Identification Nursing Home Physician Name: <+> 3 Implant Site <+> 3 Implant Quantity <+> 3 Implant Identification Catalog Number <+> 3 Implant Type <+> 3 Type <+> 4 Implant Identification Description <+> 4 Implant Identification Nursing Home Physician Name: <+> 4 Implant Site <+> 4 Implant Quantity <+> 4 Implant Identification Catalog Number <+> 4 Implant Type <+> 4 Type <+> 5 Implant Identification Description <+> 5 Implant Type <+> 5 Type <+> 6 Implant Identification Description <+> 6 Implant Identification Nursing Home Physician Name: <+> 6 Implant Site <+> 6 Implant Quantity <+> 6 Implant Identification Catalog Number <+> 6 Implant Type <+> 6 Type <+> 7 Implant Identification Description <+> 7 Implant Identification Nursing Home Physician Name: <+> 7 Implant Site <+> 7 Implant Quantity <+> 7 Implant Identification Catalog Number <+> 7 Implant Type <+> 7 Type <+> 8 Implant Identification Description <+> 8 Implant Identification Nursing Home Physician Name: <+> 8 Implant Site <+> 8 Implant Quantity <+> 8 Implant Identification Catalog Number <+> 8 Implant Type <+> 8 Type <+> 9 Implant Identification Description <+> 9 Implant Identification Nursing Home Physician Name: <+> 9 Implant Site <+> 9 Implant Quantity <+> 9 Implant Identification Catalog Number <+> 9 Implant Type <+> 9 Type [facility] IntraOp Intraoperative Assessment Entry 1 Handoff Method [...] Intraoperative DRESSING TO COCCYX AREA Assessment Comment SYSTEM VALIDATION ENGINEER OR Last Modified By: ARCHIE BENITEZ RN 11/05/19 09:41:35 [facility] IntraOp Intraoperative Assessment Audit 11/05/19 10:40:46 Repairer Art Objects: NIKI Modifier: NIKI <+> 1 Intraoperative Assessment Comment [facility] IntraOp Intraoperative Equipment Entry 1 Type Equipment Equipment Equipment Ganesh Suction System ID Number [id number] Setting 200 MM HG Intraop Monitoring Electrocardiogram Five lead placement (ECG) Electrode Placement Blood Pressure Non-Invasive BP Device Source Blood Pressure Arm, right upper Location Pulse Oximeter Hand, left Probe Site Antiembolic Devices Antiembolic Devices Sequential compression device, knee high Antiembolic Device Bilateral Location Antiembolic Device 20069 ID Number Scopes Photo/Video Documentation Photo No Video No Last Modified By: ARCHIE BENITEZ RN 11/05/19 09:42:18 [facility] IntraOp Medication Admin Entry 1 Entry 2 Entry 3 Medication/Irrigant Bacitracin 50,00units lidocaine 1% w/ Neosporin 15Gm ointment powder vial epinephrine 1:100,000 - [id number] 30ml vial - [id number] Combo Med List Time Administered Route of ADDED TO NS IRRIGATION LOCAL TOPICAL Administration Dose Dose 84715 20 1 Unit of Measure units ml pkt Volume Administered By HEIDE KAT, HEIDE KAT HANCOCK SMITH, MD-SNU MD-SNU COURTNEY, PA-INT Procedure Irrigation Irrigant Volume In Irrigant Volume Out Last Modified By: ARCHIE BENITEZ, ARCHIE BROWN, ARCHIE BROWN RN 11/05/19 10:00:31 11/05/19 10:00:31 11/05/19 10:00:31 Entry 4 Entry 5 Entry 6 Medication/Irrigant SEALR AQUAMANTYS BIPLR SPNG SURGFOAM thrombin 5000units 6.0-391403 [id number] topical powder - [id number] Combo Med List Time Administered Route of [...] 30ml vancomycin 1Gm vial - vial - [id number] Combo Med List Time Administered Route of LOCAL TOPICAL Administration Dose Dose 1 Unit of Measure gram Volume Administered By HEIDE KAT TUTT, MATTHEW PAIGE, MD-SNU MD-SNU Procedure Irrigation Irrigant Volume In Irrigant Volume Out Last Modified By: ARCHIE BENITEZ RN WASSON, SANDRA D, RN 11/05/19 10:00:31 11/05/19 11:01:15 [facility] IntraOp Medication Admin Audit 11/05/19 11:01:15 Repairer Art Objects: WASSONSY Modifier: WASSONSY <+> 8 Medication/Irrigant <+> 8 Route of Administration <+> 8 Administered By <+> 8 Dose <+> 8 Unit of Measure [facility] IntraOp Patient Positioning Entry 1 Procedure Lumbar [...] Modified By: ARCHIE BENITEZ RN 11/05/19 09:44:47 [facility] IntraOp Sign In Entry 1 Patient, Site, [...] Modified By: ARCHIE BENITEZ RN 11/05/19 09:54:12 [facility] IntraOp Sign Out Entry 1 RN Confirmation [...] Modified By: ARCHIE BENITEZ RN 11/05/19 10:40:02 [facility] IntraOp Sign Out Audit 11/05/19 12:08:07 Repairer Art Objects: NIKI Modifier: NIKI <+> 1 RN Sign Out Signature Date/Time [facility] IntraOp Skin Prep Entry 1 Procedure Lumbar Fusion Posterior 3 Level Prescribed N/A Pre-Surgical Prep Completed Prep Area OP SITE AFTER ALCOHOL A ND HIBICLENS PREP PER DR KAT Intraop Prep Integumentary WDL Assessment WDL Prep Agents Alcohol, Chlorhexadine gluconate, DuraPrep Prep by ARCHIE BENITEZ RN Hair Removal Methods No hair removal performed Last Modified By: ARCHIE BENITEZ RN 11/05/19 09:57:03 [facility] IntraOp Skin Prep Audit 11/05/19 09:57:58 Repairer Art Objects: WASSONSY Modifier: WASSONSY 1 <+> Prep Agents 1 <+> Methods 1 <*> Procedure Lumbar Fusion Posterior 3 Level 1 <+> Prep by [facility] IntraOp Surgical Procedures Entry 1 Procedure Lumbar Fusion Posterior 3 Level Additional (THORACIC 6 - 9 FUSION Procedure EXTENSION WITH AIRO AND Description SCREW AUGMENTATION Primary Procedure Yes Primary Surgeon NORTH, HEIDE MORENO MD-SNU Start 11/05/19 09:27:00 Stop 11/05/19 11:37:00 Anesthesia Type General Specialty Neurosurgery Wound Class I - Clean Last Modified By: ARCHIE BENITEZ RN 11/05/19 12:01:30 [facility] IntraOp Surgical Procedures Audit 11/05/19 12:01:30 Repairer Art Objects: BRADYCM Modifier: WASSONSY 1 <*> Procedure Lumbar Fusion Posterior 3 Level 1 <*> Additional Procedure Description (THORACIC FUSION EXTENSION WITH AIRO WITH SCREW AUGMENTATION 11/05/19 11:40:16 Repairer Art Objects: WASSONSY Modifier: BRADYCM <+> 1 Stop 11/05/19 10:32:50 Repairer Art Objects: WASSONSY Modifier: WASSONSY 1 <*> Procedure Lumbar Fusion Posterior 3 Level 1 <*> Additional Procedure Description (THORACIC FUSION EXTENSION WITH AIRO) [facility] IntraOp Temp Regulation Devices Entry 1 Temp Regulation Temperature Warm blankets, Forced Regulation Device Air Warming device Temperature 41293 Regulation Device Serial/Unit Number Temperature Upper body Regulation Site Temperature Device 43 C Setting Temperature HARITHA FUNES APRN Regulation Device Applied by Last Modified By: ARCHIE BENITEZ RN 11/05/19 09:53:34 [facility] IntraOP Time Out Entry 1 Procedure to [...] Modified By: ARCHIE BENITEZ RN 11/05/19 09:37:28 [facility] IntraOp X-Ray and Images Entry 1 X-Ray/Imaging Type Other Fluoroscopy Type Other Site OP SITE Food Dehydrator Operator Name Claribel Monteiro, District Manager Major Accounts Sales X-Ray and Imaging [facility] AIRO Comment INTRAOPERATAIVE CT SCANNER Last Modified By: ARCHIE BENITEZ RN 11/05/19 10:39:20 Case Comments <None> Finalized By: JUNIE ROWLEY Document Signatures Signed By: ARCHIE BENITEZ RN 11/05/19 12:08 JUNIE ROWLEY 11/06/19 17:47 Unfinalized History Date/Time Username Reason for Unfinalizing Freetext Reason for Unfinalizing 11/06/19 17:39 WATERIC Correct Billing Electronically signed by [facility] Conversion On Call Cerner at 11/12/2022 9:52 PM CDT documented in this encounter Plan of Treatment Not on file documented as of this encounter Visit Diagnoses Not on filedocumented in this encounter
--- OUTSIDE RECORDS SUMMARY | 2025-02-21 21:30 | XMS_ITS | Encounter Summary ---
Author Organization [employer] ([place], [place], [place], [place]) Address [address] [place] [address] Care Team Providers Care Dishwasher Preparer Name Role Phone Unavailable Primary Care Provider Unavailabl e Encounter Details Date Type Department Care Team (Late st Contact Info) Description 11/06/2019 Transcribed Document [facility] [place] Family Medicine [address] [place] [address] ProviderAgnieszka MD [address] [place] [address] Social History Tobacco Use Types [...] 11/06/2019 16:19 EDT by STORMY POPE PT [facility] PT Charges Physical Therapy Screen : 1 STORMY POPE PT - 11/06/2019 16:19 EDT Electronically signed by Taryn [facility] Conversion Animal Chiropractor Cerner at 11/12/2022 9:37 PM CDT documented in this encounter Plan of Treatment Not on file documented as of this encounter Visit Diagnoses Not on filedocumented in this encounter
--- OUTSIDE RECORDS SUMMARY | 2025-02-21 21:30 | XMS_ITS | Encounter Summary ---
Author Organization [employer] ([place], [place], [place], [place]) Address [address] [place] [address] Care Team Providers Care Credit Collections Analyst Name Role Phone Unavailable Primary Care Provider Unavailabl e Encounter Details Date Type Department Care Team (Late st Contact Info) Description 11/05/2019 Transcribed Document [facility] [place] [address] [place] [address] ProviderAgnieszka MD [address] [place], [place] [address] Social History Tobacco Use Types Packs/Day Years [...] JESSICA ROSENBAUM OTR/Lc - 11/05/2019 8:36 EDT Electronically signed by Gay Centeno Conversion Precision Aircraft Structure Assembler Cerner at 11/12/2022 9:50 PM CDT documented in this encounter Plan of Treatment Not on file documented as of this encounter Visit Diagnoses Not on filedocumented in this encounter
--- OUTSIDE RECORDS SUMMARY | 2025-02-21 21:30 | XMS_ITS | Encounter Summary ---
Author Organization [employer] ([place], [place], [place], [place]) Address [address] [place] [address] Care Team Providers Care Tobacco Grader Name Role Phone Unavailable Primary Care Provider Unavailabl e Encounter Details Date Type Department Care Team (Late st Contact Info) Description 12/16/2018 Transcribed Document [facility] [place] [facility] [place] [address] ProviderAgnieszka MD [address] [place] [address] Social History Tobacco Use Types [...] Source : Measured Height Entry Format : Trimble Height, Feet : 5 ft(Converted to: 152 [...] Body Mass Index : 60.6 kg/m2 (>HHI) Glenvil Body Weight : 70 kg MILTON GAMEZ [...] #2 Relationship : , Primary Language : Afghan Communication Barrier : None MILTON GAMEZ RN [...]
--- OUTSIDE RECORDS SUMMARY | 2025-02-21 21:30 | XMS_ITS | Encounter Summary ---
Author Organization [employer] ([place], [place], [place], [place]) Address [address] [place] [address] Care Team Providers Care Lumite Injector Name Role Phone Unavailable Primary Care Provider Unavailabl e Encounter Details Date Type Department Care Team (Late st Contact Info) Description 11/06/2019 Transcribed Document [facility] [place] Family Medicine [address] [place] [address] ProviderAgnieszka MD [address] [place], [place] [id number] Social History Tobacco Use Types Packs/Day Years Used Date Smoking Tobacco: Never Assessed Sex and Gender Information Value Date Recorded Sex Assigned at Not on file Legal Sex Male 2:38 PM CDT Gender Identity Not on file Sexual Orientation Not on file documented as of this encounter Miscellaneous Notes * Cerner Conversion Note - Historical ProviderMD - 11/06/2019 2:00 AM CDT Maternity Floor Supervisor Details Entered On: 11/06/2019 1:59 EDT Performed [...]
--- OUTSIDE RECORDS SUMMARY | 2025-02-21 21:30 | XMS_ITS | Encounter Summary ---
Author Organization [employer] ([place], [place], [place], [place]) Address [address] [place] [address] Care Team Providers Care Copy Lathe Operator Name Role Phone Unavailable Primary Care Provider Unavailabl e Encounter Details Date Type Department Care Team (Late st Contact Info) Description 11/05/2019 Transcribed Document [facility] [place] Family Medicine [address] [place] [address] ProviderAgnieszka MD [address] [place], [place] [address] Social History Tobacco Use Types Packs/Day Years [...]
--- OUTSIDE RECORDS SUMMARY | 2025-02-21 21:30 | XMS_ITS | Encounter Summary ---
Author Organization [employer] ([place], [place], [place], [place]) Address [address] [place] [address] Care Team Providers Care Packing And Wrapping Supervisor Name Role Phone Unavailable Primary Care Provider Unavailabl e Encounter Details Date Type Department Care Team (Late st Contact Info) Description 11/05/2019 Transcribed Document [facility] [place] [facility] [place] [address] ProviderAgnieszka MD [address] [place], [place] [id number] Social History Tobacco Use Types Packs/Day Years [...] STR when medically cleared to be released. [facility] following Historical Progress Note : Elvia stated that [facility] is following for patient placement. Patient is scheduled for surgery Friday11/05/19. Cm will continue to follow. ELKE VELÁZQUEZ, Pharmacologist-Casting Machine Operator Helper - 11/04/19 13:06:08 Patient is scheduled for an MRI on and surgery on Friday. He reported wanting to go to [facility]. Cm sent referral packet to [facility]. ELKE VELÁZQUEZ Pharmacologist-Casting Machine Operator Helper - 11/03/19 14:33:22 SAL BERRIOS RN-Care Management - 11/05/2019 12:46 EDT Electronically signed by Gay Centeno Conversion Storage And Backup Administrator Cerner at 11/12/2022 9:55 PM CDT documented in this encounter Plan of Treatment Not on file documented as of this encounter Visit Diagnoses Not on filedocumented in this encounter
--- OUTSIDE RECORDS SUMMARY | 2025-02-21 21:30 | XMS_ITS | Encounter Summary ---
Author Organization [employer] ([place], [place], [place], [place]) Address [address] [place] [address] Care Team Providers Care Casing In Line Feeder Name Role Phone Unavailable Primary Care Provider Unavailabl e Encounter Details Date Type Department Care Team (Late st Contact Info) Description 11/05/2019 Transcribed Document [facility] [place] [facility] [place] [address] ProviderAgnieszka MD [address], [place] [id number] Social History Tobacco Use Types Packs/Day Years [...] Intervention Information: acetaminophen Performed by Sonya Quezada, Stretcher Drier Operator-Student Nurse on 11/05/2019 17:08:00 EDT acetaminophen,650mg Oral [...]
--- OUTSIDE RECORDS SUMMARY | 2025-02-21 21:30 | XMS_ITS | Encounter Summary ---
Author Organization [employer] ([place], [place], [place], [place]) Address [address] [place] [address] Care Team Providers Care Boiler/Chiller Technician Name Role Phone Unavailable Primary Care Provider Unavailabl e Encounter Details Date Type Department Care Team (Late st Contact Info) Description 11/06/2019 Transcribed Document [facility] [place] [address] [place] [address] ProviderAgnieszka MD [address] [place], [place] [address] Social History Tobacco Use Types Packs/Day Years [...]
--- OUTSIDE RECORDS SUMMARY | 2025-02-21 21:30 | XMS_ITS | Encounter Summary ---
Author Organization [employer] ([place], [place], [place], [place]) Address [address] [place] [address] Care Team Providers Care Icu Registered Nurse Name Role Phone Unavailable Primary Care Provider Unavailabl e Encounter Details Date Type Department Care Team (Late st Contact Info) Description 11/06/2019 Transcribed Document [facility] [place] Medicine [facility] [place] [address] ProviderAgnieszka MD [address], [place] [id number] Social History Tobacco Use Types Packs/Day Years [...]
--- OUTSIDE RECORDS SUMMARY | 2025-02-21 21:30 | XMS_ITS | Encounter Summary ---
Author Organization [employer] ([place], [place], [place], [place]) Address [address] [place] [address] Care Team Providers Care Screen Printing Equipment Setter Name Role Phone Unavailable Primary Care Provider Unavailabl e Encounter Details Date Type Department Care Team (Late st Contact Info) Description 11/06/2019 Transcribed Document [facility] [place] Family Medicine [facility] [place] [address] ProviderAgnieszka MD [address], [place] [id number] Social History Tobacco Use Types Packs/Day Years [...]
--- OUTSIDE RECORDS SUMMARY | 2025-02-21 21:30 | XMS_ITS | Encounter Summary ---
Author Organization [employer] ([place], [place], [place], [place]) Address [address] [place] [address] Care Team Providers Care Older Worker Specialist Name Role Phone Unavailable Primary Care Provider Unavailabl e Encounter Details Date Type Department Care Team (Late st Contact Info) Description 11/05/2019 Transcribed Document [facility] [place] Family Medicine [address] [place] [address] ProviderAgnieszka MD [address], [place] [id number] Social History Tobacco Use Types Packs/Day Years [...] 1950 Associated Diagnoses: None Author: BROOKS GORE, formerly [facility] 69yoM with Low Back Pain - R/O [...]
[2025-02-21 21:41] VITALS: BP 141/88; PULSE 84; RESP 16; TEMP 36.2; O2SAT 100
== END 2025-02-21 21:42 | disposition home or self-care (01) ==
PROVIDERS: Emergency Provider Emergency Medicine; PCP Family Medicine
DX: G82.20 Paraplegia, unspecified (principal); Z46.6 Encounter for fitting and adjustment of urinary device
CPT/HCPCS: 51702; 99283

== ENCOUNTER 2025-03-24 12:18 | Outpatient (CLI) | payer MEDICARE, OTHER, SELFPAY ==
--- OUTSIDE RECORDS SUMMARY | 2025-03-24 12:21 | XMS_ITS | Encounter Summary ---
Author Organization [employer] ([place], [place], [place], [place]) Address [address] [place] [address] Care Team Providers Care Tractor Operator Helper Name Role Phone Unavailable Primary Care Provider Unavailabl e Encounter Details Date Type Department Care Team (Late st Contact Info) Description 11/02/2019 Transcribed Document [place] Family Medicine [address] [place] [address] ProviderAgnieszka MD [address] [place], [place] [address] Social History Tobacco Use Types Packs/Day Years [...]
--- OUTSIDE RECORDS SUMMARY | 2025-03-24 12:21 | XMS_ITS | Encounter Summary ---
Author Organization [employer] ([place], [place], [place], [place]) Address [address] [place] [address] Care Team Providers Care Industrial Engineering Manager Name Role Phone Unavailable Primary Care Provider Unavailabl e Encounter Details Date Type Department Care Team (Late st Contact Info) Description 11/02/2019 Transcribed Document [facility] [place] Medicine [facility] [place] [address] ProviderAgnieszka MD [address] [place], [place] [id number] Social History Tobacco Use Types Packs/Day Years [...]
--- OUTSIDE RECORDS SUMMARY | 2025-03-24 12:21 | XMS_ITS | Clinical Summary ---
Author Organization [facility] Address [address] [place] [address] Phone Care Team Providers Care Inspector Welded Parts Name Role Phone Alyssa Otero MD [ ] Conditions or Problems Problem Name Problem Code Onset Date Status Entry Date Provider Comment Standard Description Annotate Decubitus ulcer 808505374 (SNOMED CT) 12/14 Active 12/14 Janae [place] Pressure ulcer Candidiasis, skin 17525208 (SNOMED CT) 12/14 Active 12/14 Janae [place] Candidiasis of skin Diarrhea, antibiotic associated 336422379 (SNOMED CT) 12/14 Active 12/14 Janae [place] Antibiotic-ass ociated diarrhea Abscess, epidural G06.1 (ICD-10-CM) 12/13 Active 12/13 Joslyn Tim 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, thoracic region M46.24 (ICD-10-CM) 12/13 Active 12/13 Joslyn Tim Osteomyelitis of vertebra, thoracic region Pseudomonas infection 97857212 (SNOMED CT) 12/13 Active 12/13 Joslyn Tim Bacterial infection caused by Pseudomonas Positive blood cultures 058853909 (SNOMED CT) 12/13 Active 12/13 Joslyn Tim Organism isolated by microbial culture Benign Essential Hypertension 0108213 (SNOMED CT) 12/13 Active 12/13 Joslyn Tim Benign essential hypertension 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, 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 (ICD-10-CM) 12/13 Active 12/13 Joslyn Tim Rheumatoid arthritis without rheumatoid factor, multiple sites RA with rheumatoid factor, multiple sites M05.79 (ICD-10-CM) 12/13 Active 12/13 Joslyn Dumont Rheumatoid arthritis with rheumatoid factor of multiple sites without organ or systems involvement Parkinson's disease 36573451 (SNOMED CT) 12/13 Active 12/13 Joslyn Dumont Parkinson's disease Medications Medication Instructions Start Date Stop Date Generic Name NDC Provider CEFEPIME HCL 2 GM INJECTION SOLUTION RECONSTITUTED 2 gms IV Q 12 hours/Bioscript s/Wedco 12/14 CEFEPIME HCL 37896792206 Janae Castaneda NYSTATIN POWD apply to groin rash bid NYSTATIN 02576699248 Alyssa Otero MD FLUCONAZOLE 200 MG TABS 1 tablet FLUCONAZOLE 52850240284 Alyssa Otero MD CEFEPIME HCL 2 GM INJECTION SOLUTION RECONSTITUTED 2 gms IV Q 12 hours/Bioscript s/Wedco 09/23 CEFEPIME HCL 01507922110 Monica Sepulveda RN SENNA 8.6 MG TABS Take one by mouth daily SENNOSIDES 17293033412 Eva Dodson MIRALAX ORAL PACKET 17 g daily POLYETHYLENE GLYCOL 3350 13405764145 Eva Dodson OXYCODONE HCL 5 MG CAPS Q6H/PRN OXYCODONE HCL 03996785769 Eva Dodson OXYBUTYNIN CHLORIDE ER 5 MG AB74A-PSO Take by mouth twice a day OXYBUTYNIN CHLORIDE 35295723052 Eva Dodson MICONAZOLE NITRATE 2 % POWD applt twice daily MICONAZOLE NITRATE 43522783478 Eva Dodson CVS MELATONIN 5 MG TABS Take one by mouth daily MELATONIN 38888080186 Eva Dodson MEGESTROL ACETATE 40 MG/ML SUSP 10Milliliter* *OralTwoJeramy esPerDay MEGESTROL ACETATE 39810447351 Eva Dodson ANUCORT-HC 25 MG SUPP take as needed HYDROCORTISONE ACETATE 74150439537 Eva Dodson DIAZEPAM 2 MG TABS Take by mouth twice a day DIAZEPAM 57110963137 Eva Dodson VITAMIN D (CHOLECALCIFEROL ) 25 MCG (1000 UT) CAPS Take one by mouth daily CHOLECALCIFEROL 83776476807 Eva Dodson BISACODYL 10 MG SUPP once daily BISACODYL 61720113444 Eva Dodson BALSAM AMIE-CASTOR OIL OINT 1Application* *TopicalTwo TimesPerDay BALSAM AMIE-CASTOR OIL 28219420644 Eva Dodson BACLOFEN 10 MG TABS Take one by mouth four times daily, morning, noon, early evening and bedtime. BACLOFEN 90588385705 Eva Dodson AMANTADINE HCL 100 MG CAPS Take by mouth twice a day AMANTADINE HCL 98202341462 Eva Dodson ACETAMINOPHEN 325 MG TABS Q6H/PRN ACETAMINOPHEN 26035004912 Eva Dodson AMLODIPINE BESYLATE 10 MG TABS Take one by mouth daily AMLODIPINE BESYLATE 15314144072 Eva Dodson ACIDOPHILUS LACTOBACILLUS CAPS Take one by mouth daily LACTOBACILLUS 43945885228 Eva Dodson CARBIDOPA-LEVODO PA 25-100 MG TABS Take one by mouth four times daily, morning, noon, early evening and bedtime. CARBIDOPA-LEVODOP A 62779378963 Eva Dodson AZILECT 1 MG TABS Take one by mouth daily RASAGILINE MESYLATE 06707777866 Eva Dodson Medications Administered No information available. [...] medications (procedure) SMOK STATUS Never smoker Toba senior account representative smoking status Plan of Care No information [...]
--- OUTSIDE RECORDS SUMMARY | 2025-03-24 12:22 | XMS_ITS | Encounter Summary ---
Author Organization [employer] ([place], [place], [place], [place]) Address [address] [place] [address] Care Team Providers Care Jail Keeper Name Role Phone Unavailable Primary Care Provider Unavailabl e Encounter Details Date Type Department Care Team (Late st Contact Info) Description 12/24/[address] [facility] Neurology - [address] [place] [address] Mark Akers MD [address] [facility] [place] [id number] Social History Tobacco Use Types Packs/Day Years [...] hgb: 10.5 plts: 121 1. pod 2 h85-bzggj fusion doing well. good response to surgery. rukhsana output low. -dc rukhsana -cont present care -rehab when bed avail 2. thrombocytopenia mild. likely dilutional. will monitor documented in this encounter Plan of Treatment Not on file documented as of this encounter Visit Diagnoses Not on filedocumented in this encounter
--- OUTSIDE RECORDS SUMMARY | 2025-03-24 12:22 | XMS_ITS | Encounter Summary ---
Author Organization [employer] ([place], [place], [place], [place]) Address [address] [place] [address] Care Team Providers Care Senior Java Data Architect Name Role Phone Unavailable Primary Care Provider Unavailabl e Encounter Details Date Type Department Care Team (Late st Contact Info) Description 12/24/2018 Transcribed Document [facility] [place] [facility] [place] [address] ProviderAgnieszka MD [address] [place], [place] [id number] Social History Tobacco Use Types Packs/Day Years [...] On: 12/24/2018 15:22 EDT by MARTÍNEZ VALENZUELA RN-Bingo ClerkBelt Worker Progress Note Discharge Arrangements : Patient Post-Acute [...] Post Acute Providers : Yes MARTÍNEZ VALENZUELA RN-Bingo Clerk - 12/24/2018 15:22 EDT Electronically signed by Taryn, [facility] Conversion Theater Set Production Designer Cerner at 11/12/2022 9:41 PM CDT documented in this encounter Plan of Treatment Not on file documented as of this encounter Visit Diagnoses Not on filedocumented in this encounter
--- OUTSIDE RECORDS SUMMARY | 2025-03-24 12:22 | XMS_ITS | Encounter Summary ---
Author Organization [employer] ([place], [place], [place], [place]) Address [address] [place] [address] Care Team Providers Care Countersinker Name Role Phone Unavailable Primary Care Provider Unavailabl e Encounter Details Date Type Department Care Team (Late st Contact Info) Description 12/25/2018 Transcribed Document [facility] [place] Family Medicine [facility] [place] [address] ProviderAgnieszka MD [address] [place], [place] [address] Social History Tobacco Use Types Packs/Day Years [...] OSMANI RAINEY PTA - 12/25/2018 7:42 EDT Vice President Investor Relations Goals Mobility/Bed Mobility LTG PT Grid Goal [...]
--- OUTSIDE RECORDS SUMMARY | 2025-03-24 12:22 | XMS_ITS | Encounter Summary ---
Author Organization [employer] ([place], [place], [place], [place]) Address [address] [place] [address] Care Team Providers Care Security Orderly Name Role Phone Unavailable Primary Care Provider Unavailabl e Encounter Details Date Type Department Care Team (Late st Contact Info) Description 11/02/2019 Transcribed Document [facility] [place] [facility] [place] [address] ProviderAgnieszka MD [address] [place], [place] [address] Social History Tobacco Use Types Packs/Day Years [...] On: 11/02/2019 3:33 EDT by Teresa Mohamud Community Development Coordinator Process Patient Disposition : Admit/Observe Personal Belongings [...]
--- OUTSIDE RECORDS SUMMARY | 2025-03-24 12:22 | XMS_ITS | Encounter Summary ---
Author Organization [employer] ([place], [place], [place], [place]) Address [address] [place] [address] Care Team Providers Care Bellows Charger Assembler Name Role Phone Unavailable Primary Care Provider Unavailabl e Encounter Details Date Type Department Care Team (Late st Contact Info) Description 11/08/2019 Transcribed Document [facility] [place] Family Medicine [facility] [place] [address] ProviderAgnieszka MD [address] [place], [place] [address] Social History Tobacco Use Types Packs/Day Years [...] mL: 2 Gram, 200 mL/Hr, IV Piggyback, [id number] docusate sodium: 200 mg, Oral, BID heparin: [...] mL: 1,250 mg, 250 mL/Hr, IV Piggyback, [id number] Pending Complete fentaNYL: 25 mcg, IV Push, Q10Min Documented Medications Documented Azilect 1 mg oral tablet: 1 Tab, Oral, Daily, 30 Tab, 0 Refill(s) Remicade: 10 mg/kg, IntraVENous, [id number], for Ulcerative Colitis; Last dose: 09/29/2019, 0 [...] Dr. Akers, plan is to get to [facility] soon. Alyssa Bowens MD saw and examined patient, verified findings, reviewed labs and radiographic data, formulated diagnosis, plan for treatment, and all medical decision making. Stef Villalobos PA-C for Dr. Robson Bowens. documented in this encounter Plan of Treatment Not on file documented as of this encounter Visit Diagnoses Not on filedocumented in this encounter
--- OUTSIDE RECORDS SUMMARY | 2025-03-24 12:22 | XMS_ITS | Encounter Summary ---
Author Organization [employer] ([place], [place], [place], [place]) Address [address] [place] [address] Care Team Providers Care It Applications Manager Name Role Phone Unavailable Primary Care Provider Unavailabl e Encounter Details Date Type Department Care Team (Late st Contact Info) Description 11/08/2019 Transcribed Document [facility] [place] [address] [place] [address] ProviderAgnieszka MD [address] [place] [address] Social History Tobacco Use Types [...] MARSHA JOSE OTR/Lc - 11/09/2019 10:54 EDT Garbage Truck Helper Goals, OT Grooming LTG Grid Goal #1 [...]
--- OUTSIDE RECORDS SUMMARY | 2025-03-24 12:22 | XMS_ITS | Encounter Summary ---
Author Organization [employer] ([place], [place], [place], [place]) Address [address] [place] [address] Care Team Providers Care Food And Beverage Order Clerk Name Role Phone Unavailable Primary Care Provider Unavailabl e Encounter Details Date Type Department Care Team (Late st Contact Info) Description 11/08/2019 Transcribed Document [facility] Neurology - [address] [facility] [address] [place] [address] Heide Akers MD [address] [facility] [address] [place] [id number] Social History Tobacco Use Types Packs/Day Years [...]
--- OUTSIDE RECORDS SUMMARY | 2025-03-24 12:22 | XMS_ITS | Encounter Summary ---
Author Organization [employer] ([place], [place], [place], [place]) Address [address] [place] [address] Care Team Providers Care Guidance And Control System Engineer Name Role Phone Unavailable Primary Care Provider Unavailabl e Encounter Details Date Type Department Care Team (Late st Contact Info) Description 11/08/2019 Transcribed Document [facility] [place] [facility] [place] [address] ProviderAgnieszka MD [address] [place], [place] [address] Social History Tobacco Use Types Packs/Day Years [...] 11/08/2019 14:04 EDT Electronically signed by Taryn [facility] Conversion Order Processing Specialist Cerner at 11/12/2022 9:35 PM CDT documented in this encounter Plan of Treatment Not on file documented as of this encounter Visit Diagnoses Not on filedocumented in this encounter
--- OUTSIDE RECORDS SUMMARY | 2025-03-24 12:22 | XMS_ITS | Encounter Summary ---
Author Organization [employer] ([place], [place], [place], [place]) Address [address] [place] [address] Care Team Providers Care Briquetting Machine Operator Name Role Phone Unavailable Primary Care Provider Unavailabl e Encounter Details Date Type Department Care Team (Late st Contact Info) Description 12/24/2018 Transcribed Document [facility] [place] [facility] [place] [address] ProviderAgnieszka MD [address] [place], [place] [id number] Social History Tobacco Use Types Packs/Day Years [...] On: 12/24/2018 15:23 EDT by MARTÍNEZ VALENZUELA RN-Roller Engraver Final Discharge Planning Discharge Arrangements : Patient [...] : IRF -Inpatient Rehabilitation Facility-62 MARTÍNEZ VALENZUELA RN-Roller Engraver - 12/24/2018 15:23 EDT Final Narrative Note Final Narrative Note : Pt has bed on [address] at [facility] . Family will transport. D/W Kavya, Leroy, spouse, pt, and bedside RN Malka. MARTÍNEZ VALENZUELA RN-Roller Engraver - 12/24/2018 15:23 EDT documented in this encounter Plan of Treatment Not on file documented as of this encounter Visit Diagnoses Not on filedocumented in this encounter
--- OUTSIDE RECORDS SUMMARY | 2025-03-24 12:22 | XMS_ITS | Encounter Summary ---
Author Organization [employer] ([place], [place], [place], [place]) Address [address] [place] [address] Care Team Providers Care Manager Printing Name Role Phone Unavailable Primary Care Provider Unavailabl e Encounter Details Date Type Department Care Team (Late st Contact Info) Description 12/23/2018 Transcribed Document [facility] Neurology - [address] [facility] [address] [place] [address] Mark Akers MD [address] [facility] [address] [place] [phone] Social History Tobacco Use Types Packs/Day Years [...] since surgery. Impression and Plan POD 1 C49-[id number] fusion. Continue drain. Keep sotomayor until ambulatory. Heparin for dvt prophylaxis. PT/OT. documented in this encounter Plan of Treatment Not on file documented as of this encounter Visit Diagnoses Not on filedocumented in this encounter
--- OUTSIDE RECORDS SUMMARY | 2025-03-24 12:22 | XMS_ITS | Encounter Summary ---
Author Organization [employer] ([place], [place], [place], [place]) Address [address] [place] [address] Care Team Providers Care Toe Laster Name Role Phone Unavailable Primary Care Provider Unavailabl e Encounter Details Date Type Department Care Team (Late st Contact Info) Description 11/08/2019 Transcribed Document [facility] [place] Family Medicine [facility] [place] [address] ProviderAgnieszka MD [address], [place] [id number] Social History Tobacco Use Types Packs/Day Years [...] 1950 Associated Diagnoses: None Author: BROOKS GORE, [facility] 69yoM with Low Back Pain [...]
--- OUTSIDE RECORDS SUMMARY | 2025-03-24 12:22 | XMS_ITS | Encounter Summary ---
Author Organization [employer] ([place], [place], [place], [place]) Address [address] [place] [address] Care Team Providers Care Research Associate Professor Name Role Phone Unavailable Primary Care Provider Unavailabl e Encounter Details Date Type Department Care Team (Late st Contact Info) Description 11/08/2019 Transcribed Document [facility] [place] [address] [place] [address] ProviderAgnieszka MD [address] [place], [place] [address] Social History Tobacco Use Types Packs/Day Years [...] is staying in room tonight with him. Synagogue Preference : Faith JEROME CONNELLY Chaplain - 11/08/2019 17:05 EDT documented in this encounter Plan of Treatment Not on file documented as of this encounter Visit Diagnoses Not on filedocumented in this encounter
--- OUTSIDE RECORDS SUMMARY | 2025-03-24 12:22 | XMS_ITS | Encounter Summary ---
Author Organization [employer] ([place], [place], [place], [place]) Address [address] [place] [address] Care Team Providers Care Key Account Director Name Role Phone Unavailable Primary Care Provider Unavailabl e Encounter Details Date Type Department Care Team (Late st Contact Info) Description 11/02/2019 Transcribed Document [facility] Family Medicine [facility] [place] [address] ProviderAgnieszka MD [address] [place], [place] [id number] Social History Tobacco Use Types Packs/Day Years [...] 1950 Associated Diagnoses: None Author: BROOKS GORE, [facility] 69yoM with Low [...] Brooks Gore RPh Electronically signed by Taryn, [facility] Conversion Head Of Music Cerjulio at 11/12/2022 9:28 PM CDT documented in this encounter Plan of Treatment Not on file documented as of this encounter Visit Diagnoses Not on filedocumented in this encounter
--- OUTSIDE RECORDS SUMMARY | 2025-03-24 12:22 | XMS_ITS | Encounter Summary ---
Author Organization [employer] ([place], [place], [place], [place]) Address [address] [place] [address] Care Team Providers Care It Technical Specialist Name Role Phone Unavailable Primary Care Provider Unavailabl e Encounter Details Date Type Department Care Team (Late st Contact Info) Description 12/24/2018 Transcribed Document [facility] [place] Family Medicine [address] [place] [address] ProviderAgnieszka MD [address] [place], [place] [id number] Social History Tobacco Use Types Packs/Day Years [...] ADALI NAIR RN - 12/24/2018 15:59 EDT Electronically signed by Gay Centeno Conversion Offshore Wind Operations Manager Cerner at 11/12/2022 9:34 PM CDT documented in this encounter Plan of Treatment Not on file documented as of this encounter Visit Diagnoses Not on filedocumented in this encounter
--- OUTSIDE RECORDS SUMMARY | 2025-03-24 12:22 | XMS_ITS | Encounter Summary ---
Author Organization [employer] ([place], [place], [place], [place]) Address [address] [place] [address] Care Team Providers Care Repairer Sash And Door Name Role Phone Unavailable Primary Care Provider Unavailabl e Encounter Details Date Type Department Care Team (Late st Contact Info) Description 11/02/2019 Transcribed Document [facility] [place] Family Medicine [facility] [place] [address] ProviderAgnieszka MD [address] [place], [place] [address] Social History Tobacco Use Types Packs/Day Years [...] MiraLax: 17 Gram, Oral, Daily, PRN: Constipation Flat Lick 5 mg-325 mg oral tablet: 1.5 Tab, [...] mL: 1,250 mg, 250 mL/Hr, IV Piggyback, [id number] Documented Medications Documented Azilect 1 mg oral tablet: 1 Tab, Oral, Daily, 30 Tab, 0 Refill(s) Remicade: 10 mg/kg, IntraVENous, [id number], for Ulcerative Colitis; Last dose: 09/29/2019, 0 [...] EDT Height Source Stated Height Entry Format [place] Height/Length, [place] (ft) 5 ft Height/Length [place] 9 Inch CLINICALHEIGHT 175.26 cm [place] Body Weight 70 kg Weight Source Standing scale Weight Entry Format [place] Weight Andor[place] lb 178 lb Weight [place] oz 6 oz CLINICALWEIGHT 81.08 kg Body Surface Area (BSA) 1.97 m2 Body Mass Index 26.4 kg/m2 HI 11/02/2019 0:47 EDT Height Source Stated Height Entry Format [place] Height/Length, [place] (ft) 5 ft Height/Length [place] 9 Inch CLINICALHEIGHT 175.26 cm [place] Body Weight 69.73 kg Weight Source, ED [...] therapy -- probiotic Electronically signed by Taryn [facility] Conversion Medical Or Surgical Instrument Maker Cerner at 11/12/2022 9:34 PM CDT documented in this encounter Plan of Treatment Not on file documented as of this encounter Visit Diagnoses Not on filedocumented in this encounter
--- OUTSIDE RECORDS SUMMARY | 2025-03-24 12:22 | XMS_ITS | Encounter Summary ---
Author Organization [employer] ([place], [place], [place], [place]) Address [address] [place] [address] Care Team Providers Care Fire Safety Manager Name Role Phone Unavailable Primary Care Provider Unavailabl e Encounter Details Date Type Department Care Team (Late st Contact Info) Description 12/23/2018 Transcribed Document [facility] [place] Family Medicine [facility] [place] [address] ProviderAgnieszka MD [address] [place], [place] [address] Social History Tobacco Use Types Packs/Day Years [...] NP-SABRA 12/23/18 cc: medical management - awaiting [id number]-[id number] PLIF per Dr. Akers S: Doing fine No fevers, chills, sweats No shortness of breath, cough No Chest pain, palpitations, syncope No nausea, vomiting, -flatus, -BM +sotomayor anchored + post-op back pain HPI: Patient is a 68 yo [address] [facility] per Dr. Akers for a V42-qkglu PLIF. Preoperatively patient was found to have [...] mmol/L 12/23/2018 04:01 Chloride Level 113 mmol/L IA 12/23/2018 04:01 Carbon Dioxide Level 25 mmol/L 12/23/2018 04:01 Anion Gap 9 12/23/2018 04:01 Blood Urea Nitrogen 13 mg/dL 12/23/2018 04:01 Glucose Level 100 mg/dL 12/23/2018 04:01 Calcium Level 7.3 mg/dL LOW 12/23/2018 04:01 Creatinine Level 0.90 mg/dL 12/23/2018 04:01 Impression: spondylolisthesis Lspine; awaiting X57-aytdr PLIF per Dr. 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 Conversion Coal And Ash Supervisor Cerner at 11/12/2022 9:52 PM CDT documented in this encounter Plan of Treatment Not on file documented as of this encounter Visit Diagnoses Not on filedocumented in this encounter
--- OUTSIDE RECORDS SUMMARY | 2025-03-24 12:22 | XMS_ITS | Encounter Summary ---
Author Organization [employer] ([place], [place], [place], [place]) Address [address] [place] [address] Care Team Providers Care Air Hammer Stripper Name Role Phone Unavailable Primary Care Provider Unavailabl e Encounter Details Date Type Department Care Team (Late st Contact Info) Description 11/02/2019 Transcribed Document [facility] [place] [facility] [place] [address] ProviderAgnieszka MD [address] [place], [place] [address] Social History Tobacco Use Types Packs/Day Years [...] Communication Barrier : None Primary Language : Palauan Any Spiritual/Cultural Needs or Requests : No [...]
--- OUTSIDE RECORDS SUMMARY | 2025-03-24 12:22 | XMS_ITS | Encounter Summary ---
Author Organization [facility] ([place], [place], [place], [place]) Address [address] [place] [address] Care Team Providers Care Hot Mill Supervisor Name Role Phone Unavailable Primary Care Provider Unavailabl e Encounter Details Date Type Department Care Team (Late st Contact Info) Description 11/07/2019 Transcribed Document [facility] [place] [address] [place] [address] ProviderAgnieszka MD [address] [place], [place] [address] Social History Tobacco Use Types Packs/Day Years [...] sx. OT will f/u tomorrow. JOSE GONSALVES OTR/Lc - 11/07/2019 10:47 EDT documented in this encounter Plan of Treatment Not on file documented as of this encounter Visit Diagnoses Not on filedocumented in this encounter
--- OUTSIDE RECORDS SUMMARY | 2025-03-24 12:22 | XMS_ITS | Encounter Summary ---
Author Organization [employer] ([place], [place], [place], [place]) Address [address] [place] [address] Care Team Providers Care Crane Ladle Person Name Role Phone Unavailable Primary Care Provider Unavailabl e Encounter Details Date Type Department Care Team (Late st Contact Info) Description 12/24/2018 Transcribed Document [facility] [place] Medicine [address] [place] [address] ProviderAgnieszka MD [address] [place], [place] [id number] Social History Tobacco Use Types Packs/Day Years [...] these instructions at home: Medicines ??? Take cbjd-ivt-xslfjuz and prescription medicines only as told by [...] cannot use soap and water, use hand book reviewer. ? Change your bandage as told by [...] your pee (urine) pale yellow. ? Take equz-wld-iligwez or prescription medicines. ? Eat foods that [...] 11/07/2011 Document Revised: 10/28/2017 Document Reviewed: 10/28/2017 [employer] Interactive Patient Education ? 2019 [employer]. Infectious Disease Wound Infection A wound infection [...] at home: Medicines ??? Take or apply mvxy-zld-jlhnfgv and prescription medicines only as told by [...] cannot use soap and water, use hand book reviewer. ? Change your bandage as told by [...] 04/22/2009 Document Revised: 12/19/2016 Document Reviewed: 01/01/2016 [employer] Interactive Patient Education ? 2019 [employer] documented in this encounter Plan of Treatment Not on file documented as of this encounter Visit Diagnoses Not on filedocumented in this encounter
--- OUTSIDE RECORDS SUMMARY | 2025-03-24 12:22 | XMS_ITS | Encounter Summary ---
Author Organization [employer] ([place], [place], [place], [place]) Address [address] [place] [address] Care Team Providers Care Patient Care Technician Name Role Phone Unavailable Primary Care Provider Unavailabl e Encounter Details Date Type Department Care Team (Late st Contact Info) Description 11/07/2019 Transcribed Document [facility] [place] [address] [place] [address] ProviderAgnieszka MD [address] [place], [place] [address] Social History Tobacco Use Types Packs/Day Years [...] rukhsana for now. Electronically signed by Taryn [facility] Conversion Nursing Unit Coordinator Cerner at 11/12/2022 9:55 PM CDT documented in this encounter Plan of Treatment Not on file documented as of this encounter Visit Diagnoses Not on filedocumented in this encounter
--- OUTSIDE RECORDS SUMMARY | 2025-03-24 12:22 | XMS_ITS | Encounter Summary ---
Author Organization [employer] ([place], [place], [place], [place]) Address [address] [place] [address] Care Team Providers Care Superintendent Landfill Operations Name Role Phone Unavailable Primary Care Provider Unavailabl e Encounter Details Date Type Department Care Team (Late st Contact Info) Description 11/02/2019 Transcribed Document [facility] [place] Medicine [address] [place] [address] ProviderAgnieszka MD [address] [place], [place] [address] Social History Tobacco Use Types Packs/Day Years [...] booklet; He reported he would call for liner installer if/when he is ready to complete a Living Will KOBI PALACIOS - 11/02/2019 10:48 EDT Electronically signed by Gay Centeno Conversion Machined Parts Quality Inspector Cerner at 11/12/2022 9:37 PM CDT documented in this encounter Plan of Treatment Not on file documented as of this encounter Visit Diagnoses Not on filedocumented in this encounter
--- OUTSIDE RECORDS SUMMARY | 2025-03-24 12:22 | XMS_ITS | Encounter Summary ---
Author Organization [employer] ([place], [place], [place], [place]) Address [address] [place] [address] Care Team Providers Care Special Education Supervisor Name Role Phone Unavailable Primary Care Provider Unavailabl e Encounter Details Date Type Department Care Team (Late st Contact Info) Description 12/24/2018 Transcribed Document [facility] [place] [facility] [place] [address] ProviderAgnieszka MD [address] [place] [address] Social History Tobacco Use Types [...] On: 12/24/2018 18:45 EDT by ADALI NAIR platform engineer Documentation Discharge Date/Time : 12/24/2018 16:25 EDT [...] ADALI NAIR, RN - 12/24/2018 18:45 EDT Electronically signed by Gay Centeno Conversion Information Systems Security Officer Cerner at 11/12/2022 9:41 PM CDT documented in this encounter Plan of Treatment Not on file documented as of this encounter Visit Diagnoses Not on filedocumented in this encounter
--- OUTSIDE RECORDS SUMMARY | 2025-03-24 12:22 | XMS_ITS | Encounter Summary ---
Author Organization [employer] ([place], [place], [place], [place]) Address [address] [place] [address] Care Team Providers Care Test Deck Supervisor Name Role Phone Unavailable Primary Care Provider Unavailabl e Encounter Details Date Type Department Care Team (Late st Contact Info) Description 12/24/2018 Transcribed Document [facility] [address] [place] [address] Ivana Salcido MD [facility] [address] [address] Social History Tobacco Use Types [...] MARK PA-SABRA 12/24/18 cc: medical management s/p Y45-hctes PLIF per Dr. Akers S: pt is [...] is a 68 yo male admitted to [facility] per Dr. Akers for a A93-wcbtw PLIF. Preoperatively patient was found to have [...] mL/Min 12/24/2018 05:30 Impression: spondylolisthesis Lspine; s/p B69-jirbx PLIF per Dr. Akers mild tachycardia, ?pain [...] mg while at hospital Pending DC to [facility] Acute today per DC medical planner and Dr. Akers wean O2 for sat >92% limit narcs- watch sedation level; limit narcotic us at [facility] Monitor HTN; add PRN's, hold parameters bowel [...]
--- OUTSIDE RECORDS SUMMARY | 2025-03-24 12:22 | XMS_ITS | Encounter Summary ---
Author Organization [employer] ([place], [place], [place], [place]) Address [address] [place] [address] Care Team Providers Care Fisher Spear Name Role Phone Unavailable Primary Care Provider Unavailabl e Encounter Details Date Type Department Care Team (Late st Contact Info) Description 11/08/2019 Transcribed Document [facility] [place] [facility] [place] [address] ProviderAgnieszka MD [address] [place], [place] [id number] Social History Tobacco Use Types Packs/Day Years [...]
--- OUTSIDE RECORDS SUMMARY | 2025-03-24 12:22 | XMS_ITS | Encounter Summary ---
Author Organization [employer] ([place], [place], [place], [place]) Address [address] [place] [address] Care Team Providers Care Quarry Boss Name Role Phone Unavailable Primary Care Provider Unavailabl e Encounter Details Date Type Department Care Team (Late st Contact Info) Description 11/02/2019 Transcribed Document [facility] [place] Family Medicine [address] [place] [address] ProviderAgnieszka MD [address] [place] [address] Social History Tobacco Use Types Packs/Day Years [...] On: 11/02/2019 7:20 EDT by Sue Beck [facility] Coord Phone Call for Consults Consult Phone Call/Page Attempt : First call Consult Reason : back osteomylitis Physician Requesting Consult : DONY NOONAN PA-C Physician Requested for Consult : NIC CEVALLOS MD-INF Provider Service Notified Name : Infectious Disease Date and Time Call Returned : 11/02/2019 9:00 EDT Sue Beck Care [facility] Coord - 11/02/2019 9:04 EDT documented in this encounter Plan of Treatment Not on file documented as of this encounter Visit Diagnoses Not on filedocumented in this encounter
--- OUTSIDE RECORDS SUMMARY | 2025-03-24 12:22 | XMS_ITS | Encounter Summary ---
Author Organization [employer] ([place], [place], [place], [place]) Address [address] [place] [address] Care Team Providers Care Assistant To The President Name Role Phone Unavailable Primary Care Provider Unavailabl e Encounter Details Date Type Department Care Team (Late st Contact Info) Description 12/24/2018 Transcribed Document [facility] [place] Family Medicine [facility] [place] [address] ProviderAgnieszka MD [address] [place] [address] Social History Tobacco Use Types Packs/Day Years Used Date Smoking Tobacco: Never Assessed Sex and Gender Information Value Date Recorded Sex Assigned at Not on file Legal Sex Male 2:38 PM CDT Gender Identity Not on file Sexual Orientation Not on file documented as of this encounter Miscellaneous Notes * Cerner Conversion Note - Agnieszka ProviderMD - 12/24/2018 3:42 PM CDT [address] [address] Patient Copy Patient Information: Name: SIMBA MAYEN JR Current Date: 12/24/2018 15:42:15 : 1950 Patient Address: [address] [address] Patient Attending Physician: HEIDE KAT MD-[facility] Primary Care Provider: NOAH NUNEZ MD Primary Care Provider Discharge Diagnosis: Lumbar spine scoliosis; Lumbar stenosis Weight on Admission: 409 lb, 3 oz Comment: Follow-up Instructions: With: Address: When: HEIDE KAT [address] [place] [address] Business (1) Within 1 month Comments: with x rays With: Address: When: HEIDE KAT [address] [place], [place] [id number] Business (1) Within 2 weeks Comments: staple [...] Assistance with quitting is available by contacting 5-619-LAME-NOW. This is a free resource providing counseling, [...] Be sure to sign up for the [employer] patient portal, which gives you 17/02 access to your medical information ??? including these discharge instructions ??? using your computer, smartphone, or tablet. Just go to [employer] to get started. Questions? Call . [facility] would like to thank you for allowing us to assist you with your healthcare needs. FAHEEM Chan JR, KENNETH, (or lifeline representatives) have received the above patient education materials/instructions and have verbalized understanding: Patient Signature _ Date/Time Patient Referral Coordinator Signature (if needed) Date/Time Clinician/Hospital Referral Coordinator Signature (if needed) Date/Time documented in this encounter Plan of Treatment Not on file documented as of this encounter Visit Diagnoses Not on filedocumented in this encounter
--- OUTSIDE RECORDS SUMMARY | 2025-03-24 12:22 | XMS_ITS | Encounter Summary ---
Author Organization [employer] ([place], [place], [place], [place]) Address [address] [place] [address] Care Team Providers Care Marzipan Molder Name Role Phone Unavailable Primary Care Provider Unavailabl e Encounter Details Date Type Department Care Team (Late st Contact Info) Description 12/23/2018 Transcribed Document [facility] [place] [address] [place] [address] ProviderAgnieszka MD [address] [place], [place] [id number] Social History Tobacco Use Types Packs/Day Years [...] On: 12/23/2018 13:23 EDT by MARTÍNEZ VALENZUELA RN-Dog Walker Initial Assessment I Previously Documented Living Environment [...] Contact #2 Relationship : , MARTÍNEZ VALENZUELA RN-Dog Walker - 12/23/2018 13:23 EDT Initial Assessment II Sensory and Motor Deficits : Other: Parkinson's Current Home Treatments and Equipment : None MARTÍNEZ VALENZUELA RN-Dog Walker - 12/23/2018 13:23 EDT Discharge Needs I Anticipated Discharge Date : 12/24/2018 EDT Anticipated Discharge To, CM : Acute Care Facility, residential facility Current Home Treatment/Equipment : Current Home Treatment/Equipment No qualifying data available. MARTÍNEZ VALENZUELA RN-Dog Walker - 12/23/2018 13:23 EDT Discharge Needs II Professional Skilled Services : Professional Skilled Services No qualifying data available. Needs Assistance with Transportation : Maybe MARTÍNEZ VALENZUELA RN-Dog Walker - 12/23/2018 13:23 EDT Narrative Note Narrative Note : 68yo male pt s/p T10-S1 posterior lateral fusion, L2-S1 lami and PLIF with bilateral iliac bolts. PMH: Parkinson's. met withpt and family at bedside to discuss DCP. Pt ambulated 70ft with Ax2 this am with PT. has concerns regarding taking patient home. She requests rehab at [facility]. Referral sent and informed Colleene. CM will follow. MARTÍNEZ VALENZUELA RN-Dog Walker - 12/23/2018 13:23 EDT documented in this encounter Plan of Treatment Not on file documented as of this encounter Visit Diagnoses Not on filedocumented in this encounter
--- OUTSIDE RECORDS SUMMARY | 2025-03-24 12:22 | XMS_ITS | Encounter Summary ---
Author Organization [employer] ([place], [place], [place], [place]) Address [address] [place] [address] Care Team Providers Care Rn Licensed Practical Name Role Phone Unavailable Primary Care Provider Unavailabl e Encounter Details Date Type Department Care Team (Late st Contact Info) Description 11/02/2019 Transcribed Document [facility] [place] [address] [place] [address] ProviderAgnieszka MD [address], [place] [address] Social History Tobacco Use Types Packs/Day Years [...]
--- OUTSIDE RECORDS SUMMARY | 2025-03-24 12:22 | XMS_ITS | Encounter Summary ---
Author Organization [employer] ([place], [place], [place], [place]) Address [address] [place] [address] Care Team Providers Care Aerospace Mechanic Name Role Phone Unavailable Primary Care Provider Unavailabl e Encounter Details Date Type Department Care Team (Late st Contact Info) Description 11/02/2019 Transcribed Document [facility] [place] [address] [place] [address] ProviderAgnieszka MD [address], [place] [id number] Social History Tobacco Use Types Packs/Day Years [...]
--- OUTSIDE RECORDS SUMMARY | 2025-03-24 12:22 | XMS_ITS | Encounter Summary ---
Author Organization [employer] ([place], [place], [place], [place]) Address [address] [place] [address] Care Team Providers Care Tool Programmer Name Role Phone Unavailable Primary Care Provider Unavailabl e Encounter Details Date Type Department Care Team (Late st Contact Info) Description 12/24/2018 Transcribed Document [facility] [place] [address] [place] [address] ProviderAgnieszka MD [address] [place] [address] Social History Tobacco Use Types Packs/Day Years Used Date Smoking Tobacco: Never Assessed Sex and Gender Information Value Date Recorded Sex Assigned at Not on file Legal Sex Male 2:38 PM CDT Gender Identity Not on file Sexual Orientation Not on file documented as of this encounter Miscellaneous Notes * Cerner Conversion Note - Agnieszka ProviderMD - 12/24/2018 3:59 PM CDT [facility] [place] [id number] SIMBA MAYEN JR :1950 Visit Time:12/22/2018 Your Visit Summary Your Care Team Admitting Physician - HEIDE KAT MD-DIVYA Attending Physician - NORTH, HEIDE MORENO MD-DIVYA Primary Care Physician - NOAH NUNEZ (REF), -[facility] Referring Physician - HEIDE KAT MD-DIVYA [...] 11:30 AM EDT Comments Please go to [facility] at 10:45am for x-rays before appointment at 11:30am Where: [address] [place] [address] [phone]- [employer] (1) Follow Up with HEIDE KAT When 01/04/2019 11:00 AM EDT Comments Appointment has been made Where: [address] [place] [address] [phone]- [employer] (1) Medications What How Much When Instructions [...] at home: Medicines ??? Take or apply lrpl-tjs-vntcqsa and prescription medicines only as told by [...] cannot use soap and water, use hand employment interviewer. ? Change your bandage as told by [...] 04/22/2009 Document Revised: 12/19/2016 Document Reviewed: 01/01/2016 [employer] Interactive Patient Education ?? 2019 [employer] Inc. Spinal Fusion, Adult, Care After This sheet gives you information about how to care for yourself after your procedure. Your doctor may also give you more specific instructions. If you have problems or questions, contact your doctor. Follow these instructions at home: Medicines ??? Take ksyg-bex-trfnvef and prescription medicines only as told by [...] cannot use soap and water, use hand employment interviewer. ? Change your bandage as told by [...] your pee (urine) pale yellow. ? Take gcgl-vmb-izqfjof or prescription medicines. ? Eat foods that [...] 11/07/2011 Document Revised: 10/28/2017 Document Reviewed: 10/28/2017 [employer] Interactive Patient Education ?? 2019 [employer]. acetaminophen and oxycodone (a SEET a MIN [...] may report side effects to FDA at 3-603-FDY-8771. What other drugs will affect acetaminophen and [...] affect acetaminophen and oxycodone, including prescription and crpq-qqf-uxyboqv medicines, vitamins, and herbal products. Not all [...] to ensure that the information provided by [employer]. ('[employer]') is accurate, up-to-date, and complete, but no guarantee is made to that effect. Drug information contained herein may be time sensitive. [employer] information has been compiled for use by healthcare practitioners and consumers in the [place] and therefore [employer] does not warrant that uses outside of the [place] are appropriate, unless specifically indicated otherwise. [employer]'s drug information does not endorse drugs, diagnose patients or recommend therapy. [employer] drug information is an informational resource designed [...] effective or appropriate for any given patient. [employer] does not assume any responsibility for any aspect of healthcare administered with the aid of information [employer] provides. The information contained herein is not intended to cover all possible uses, directions, precautions, warnings, drug interactions, allergic reactions, or adverse effects. If you have questions about the drugs you are taking, check with your doctor, nurse or pharmacist. Copyright 4841-3263 [employer]. Version: 18.02. Revision Date: 06/24/2018. Emergency Awareness [...] Assistance with quitting is available by contacting 6-604-WGBCTransGenRxNOW. This is a free resource providing counseling, [...] Be sure to sign up for the [facility] patient portal, which gives you 17/02 access to your medical information ??? including these discharge instructions ??? using your computer, smartphone, or tablet. Just go to [employer] to get started. Questions? Call . Test [...] range between ( 0.0 and 7.0 ) [place] #: 0.81 K/uL -- Normal range between ( 0.16 and 1.00 ) Eos #: 0.03 x10(3)/uL -- Normal range between ( 0.00 and 0.80 ) [place] %: 9.9 % -- Normal range between [...] ) Urine Bilirubin Dipstick: Small Urine Specific [place]: >1.030 -- Normal range between ( 1.005 [...] was given the opportunity to ask questions. Patient/Pickling Drum Operator Name: Patient/Pickling Drum Operator Signature: Relationship to Patient: Clinician/Hospital Pickling Drum Operator Signature: Date: documented in this encounter Plan of Treatment Not on file documented as of this encounter Visit Diagnoses Not on filedocumented in this encounter
--- OUTSIDE RECORDS SUMMARY | 2025-03-24 12:23 | XMS_ITS | Encounter Summary ---
Author Organization [employer] ([place], [place], [place], [place]) Address [address] [place] [address] Care Team Providers Care Street Light Lamp Cleaner Name Role Phone Unavailable Primary Care Provider Unavailabl e Encounter Details Date Type Department Care Team (Late st Contact Info) Description 11/09/2019 Transcribed Document [facility] [place] Family Medicine [facility] [place] [address] ProviderAgnieszka MD [address], [place] [id number] Social History Tobacco Use Types Packs/Day Years [...] MALIHA COLIN OTR/Lc - 11/10/2019 15:28 EDT Intermediate Goals, OT Grooming LTG Grid Goal #1 [...]
--- OUTSIDE RECORDS SUMMARY | 2025-03-24 12:23 | XMS_ITS | Encounter Summary ---
Author Organization [employer] ([place], [place], [place], [place]) Address [address] [place] [address] Care Team Providers Care Occupational Therapy Program Director Name Role Phone Unavailable Primary Care Provider Unavailabl e Encounter Details Date Type Department Care Team (Late st Contact Info) Description 11/09/2019 Transcribed Document [facility] [place] Family Medicine [facility] [place] [address] ProviderAgnieszka MD [address], [place] [id number] Social History Tobacco Use Types Packs/Day Years [...] Performed On: 11/09/2019 14:47 EDT by Teresa Bucoi RN Intervention Information: acetaminophen Performed by Teresa [...]
--- OUTSIDE RECORDS SUMMARY | 2025-03-24 12:23 | XMS_ITS | Encounter Summary ---
Author Organization [employer] ([place], [place], [place], [place]) Address [address] [place] [address] Care Team Providers Care Video Production Coordinator Name Role Phone Unavailable Primary Care Provider Unavailabl e Encounter Details Date Type Department Care Team (Late st Contact Info) Description 11/10/2019 Transcribed Document [facility] [place] [facility] [place] [address] ProviderAgnieszka MD [address] [place], [place] [id number] Social History Tobacco Use Types Packs/Day Years [...] flow. ??? Need to wear a medical sales consultant. ??? Have poor control of their bladder [...] health care provider. General instructions ??? Take riil-owe-oilipzv and prescription medicines only as told by [...] 08/21/2005 Document Revised: 04/06/2019 Document Reviewed: 04/06/2019 [employer] Interactive Patient Education ? 2019 [employer] Inc. Orthopedics Acute Back Pain, Adult Acute [...] Managing pain, stiffness, and swelling ??? Take rvtw-ffp-rpjealp and prescription medicines only as told by [...] day. ??? Do not sit, drive, or polishing pad mounter one place for more than 30 minutes [...] less stress on your back. ??? Take ymqe-tzy-cyjiuhp and prescription medicines and apply heat or ice as directed by your health care provider. This information is not intended to replace advice given to you by your health care provider. Make sure you discuss any questions you have with your health care provider. Document Released: 07/14/2006 Document Revised: 02/18/2019 Document Reviewed: 02/25/2018 [employer] Interactive Patient Education ? 2019 [employer] Inc. documented in this encounter Plan of Treatment Not on file documented as of this encounter Visit Diagnoses Not on filedocumented in this encounter
--- OUTSIDE RECORDS SUMMARY | 2025-03-24 12:23 | XMS_ITS | Encounter Summary ---
Author Organization [employer] ([place], [place], [place], [place]) Address [address] [place] [address] Care Team Providers Care Senior Agricultural Assistant Name Role Phone Unavailable Primary Care Provider Unavailabl e Encounter Details Date Type Department Care Team (Late st Contact Info) Description 11/10/2019 Transcribed Document [facility] [place] [address] [place] [address] ProviderAgnieszka MD [address] [place], [place] [address]641 Social History Tobacco Use Types Packs/Day Years [...]
--- OUTSIDE RECORDS SUMMARY | 2025-03-24 12:23 | XMS_ITS | Encounter Summary ---
Author Organization [employer] ([place], [place], [place], [place]) Address [address] [place] [address] Care Team Providers Care Gis Software Developer Name Role Phone Unavailable Primary Care Provider Unavailabl e Encounter Details Date Type Department Care Team (Late st Contact Info) Description 11/10/2019 Transcribed Document [facility] [place] Family Medicine [address] [place] [address] ProviderAgnieszka MD [address] [place], [place] [phone] Social History Tobacco Use Types Packs/Day Years [...] Dudley Stuart RN-TRAVELER - 11/10/2019 13:31 EDT Electronically signed by Gay Centeno Conversion Artillery Or Naval Gunfire Observer Cerner at 11/12/2022 9:54 PM CDT documented in this encounter Plan of Treatment Not on file documented as of this encounter Visit Diagnoses Not on filedocumented in this encounter
--- OUTSIDE RECORDS SUMMARY | 2025-03-24 12:23 | XMS_ITS | Encounter Summary ---
Author Organization [email or web address] ([place], [place], [place], [place]) Address [address] [place] [address] Care Team Providers Care Retail Equipment Associate Name Role Phone Unavailable Primary Care Provider Unavailabl e Encounter Details Date Type Department Care Team (Late st Contact Info) Description 11/02/2019 Transcribed Document [facility] [place] [facility] [place] [place] [address] ProviderAgnieszka MD [address] [place], [place] [address] Social History Tobacco Use Types Packs/Day Years [...] booklet; He reported he would call for burner operator if/when he is ready to complete a Living Will Emotional Support : Empathic/Engaged listening, Feelings expressed, Information provided Spiritual and Sabianist : Prayer shared, Spiritual/Sabianist support provided Change, Adjustment and Loss : [...]
--- OUTSIDE RECORDS SUMMARY | 2025-03-24 12:23 | XMS_ITS | Encounter Summary ---
Author Organization [employer] ([place], [place], [place], [place]) Address [address] [place] [address] Care Team Providers Care Dental Specialist Name Role Phone Unavailable Primary Care Provider Unavailabl e Encounter Details Date Type Department Care Team (Late st Contact Info) Description 11/09/2019 Transcribed Document [facility] [place] [facility] [place] [address] ProviderAgnieszka MD [address], [place] [id number] Social History Tobacco Use Types Packs/Day Years [...] acetaminophen(Pending Validation) Performed by Radha Josue Care [facility] on 11/09/2019 07:07:00 EDT acetaminophen,650mg Oral [...] form. Electronically signed by Gay Centeno Conversion Air Conditioner Installer Helper Cerner at 11/12/2022 9:51 PM CDT documented in this encounter Plan of Treatment Not on file documented as of this encounter Visit Diagnoses Not on filedocumented in this encounter
--- OUTSIDE RECORDS SUMMARY | 2025-03-24 12:23 | XMS_ITS | Encounter Summary ---
Author Organization [employer] ([place], [place], [place], [place]) Address [address] [place] [address] Care Team Providers Care Ground Crewman Name Role Phone Unavailable Primary Care Provider Unavailabl e Encounter Details Date Type Department Care Team (Late st Contact Info) Description 11/02/2019 Transcribed Document [facility] [place] Family Medicine [facility] [place] [address] ProviderAgnieszka MD [address] [place], [place] [address] Social History Tobacco Use Types Packs/Day Years [...] Oral, Daily, 30 Tab, 0 Refill(s) Imuran: [id number], every 8 weeks at hospital last dose [...] % 26.3 % Lymph # 2.29 x10(3)/uL [facility] % 13.9 % HI [facility] # 1.21 K/uL HI Eos % 0.1 [...] I discussed this case with Dr. Benitez, ammunition components inspector for neurosurgery, and he suggested that this might also be related to a fracture. Patient's symptoms did start acutely while attempting to do crunches. He has not reported any feelings of illness over the last 2 weeks as well. No history of IV drug abuse. Patient covered empirically with vancomycin and Zosyn. I discussed this case with Dr. Sagastume, hospitalist ammunition components inspector and patient will be admitted for further [...]
--- OUTSIDE RECORDS SUMMARY | 2025-03-24 12:23 | XMS_ITS | Encounter Summary ---
Author Organization [employer] ([place], [place], [place], [place]) Address [address] [place] [address] Care Team Providers Care Dispatcher Motor Vehicle Name Role Phone Unavailable Primary Care Provider Unavailabl e Encounter Details Date Type Department Care Team (Late st Contact Info) Description 11/10/2019 Transcribed Document [facility] [place] [facility] [place] [address] ProviderAgnieszka MD [address] [place], [place] [address] Social History Tobacco Use Types Packs/Day Years [...] mL: 2 Gram, 200 mL/Hr, IV Piggyback, [id number] docusate sodium: 200 mg, Oral, BID heparin: [...] micro id prior to making plans for [facility] transfer -- probiotic ?Continue to follow cultures and sensitivity reports an just antibiotics accordingly ?Follow daily labs while in hospital and trend results Discussed at length with in room documented in this encounter Plan of Treatment Not on file documented as of this encounter Visit Diagnoses Not on filedocumented in this encounter
--- OUTSIDE RECORDS SUMMARY | 2025-03-24 12:23 | XMS_ITS | Encounter Summary ---
Author Organization [employer] ([place], [place], [place], [place]) Address [address] [place] [address] Care Team Providers Care Solderer Assembler Name Role Phone Unavailable Primary Care Provider Unavailabl e Encounter Details Date Type Department Care Team (Late st Contact Info) Description 11/02/2019 Transcribed Document [facility] [place] Family Medicine [address] [place] [address] ProviderAgnieszka MD [address], [place] [address] Social History Tobacco Use Types Packs/Day Years [...]
--- OUTSIDE RECORDS SUMMARY | 2025-03-24 12:23 | XMS_ITS | Encounter Summary ---
Author Organization [employer] ([place], [place], [place], [place]) Address [address] [place] [address] Care Team Providers Care Compressor Station Engineer Name Role Phone Unavailable Primary Care Provider Unavailabl e Encounter Details Date Type Department Care Team (Late st Contact Info) Description 11/09/2019 Transcribed Document [facility] [place] [facility] [place] [address] ProviderAgnieszka MD [address], [place] [phone] Social History Tobacco Use Types Packs/Day Years [...]
--- OUTSIDE RECORDS SUMMARY | 2025-03-24 12:23 | XMS_ITS | Encounter Summary ---
Author Organization [employer] ([place], [place], [place], [place]) Address [address] [place] [address] Care Team Providers Care Loader Helper Sorting Yard Name Role Phone Unavailable Primary Care Provider Unavailabl e Encounter Details Date Type Department Care Team (Late st Contact Info) Description 11/10/2019 Transcribed Document [facility] [place] [address] [place] [address] ProviderAgnieszka MD [address], [place] [id number] Social History Tobacco Use Types Packs/Day Years [...] : Pt discharging today and transferring to [facility]Spinal Unit. [facility] transporting pt at 1400. Will reach out to spouse to update. No additional needs noted to be addressed, will fax d/c summary when availabl e SAL BERRIOS RN-Care Management - 11/10/2019 11:14 EDT documented in this encounter Plan of Treatment Not on file documented as of this encounter Visit Diagnoses Not on filedocumented in this encounter
--- OUTSIDE RECORDS SUMMARY | 2025-03-24 12:23 | XMS_ITS | Encounter Summary ---
Author Organization [employer] ([place], [place], [place], [place]) Address [address] [place] [address] Care Team Providers Care Rv Repairer Name Role Phone Unavailable Primary Care Provider Unavailabl e Encounter Details Date Type Department Care Team (Late st Contact Info) Description 11/02/2019 Transcribed Document [facility] [place] Medicine [address] [place] [address] ProviderAgnieszka MD [address] [place] [address] Social History Tobacco Use Types [...] OT Evaluation and Treatment Ordered By: LORENA SAGASUTME MD-INT Active Diagnoses : 11/02/2019 12:00 Back [...] JESSICA ROSENBAUM OTR/L - 11/03/2019 11:18 EDT Machine Clothing Man Goals, OT Grooming LTG Grid Goal #1 [...] functional distance. Nicole care with assist from MUSIC SPECIALIST Total. Pt washed his face with [...] JESSICA ROSENBAUM OTR/Lc - 11/03/2019 11:18 EDT [place] OT Charges OT Selfcare/Hm Mgmt Ea 15 Min : 1 OT Eval Moderate Complexity : 1 JESSICA ROSENBAUM OTR/Lc - 11/03/2019 11:18 EDT documented in this encounter Plan of Treatment Not on file documented as of this encounter Visit Diagnoses Not on filedocumented in this encounter
--- OUTSIDE RECORDS SUMMARY | 2025-03-24 12:23 | XMS_ITS | Encounter Summary ---
Author Organization [employer] ([place], [place], [place], [place]) Address [address] [place] [address] Care Team Providers Care Cisco Network Engineer Name Role Phone Unavailable Primary Care Provider Unavailabl e Encounter Details Date Type Department Care Team (Late st Contact Info) Description 11/02/2019 Transcribed Document [facility] Family Medicine [address] [place] [address] ProviderAgnieszka MD [address] [place], [place] [address] Social History Tobacco Use Types Packs/Day Years Used Date Smoking Tobacco: Never Assessed Sex and Gender Information Value Date Recorded Sex Assigned at Not on file Legal Sex Male 2:38 PM CDT Gender Identity Not on file Sexual Orientation Not on file documented as of this encounter Miscellaneous Notes * Cerner Conversion Note - Historical ProviderMD - 11/02/2019 12:31 AM CDT Pompe[place] Suicide Severity Rating Scale (C-SSRS) Entered On: 11/02/2019 2:21 EDT Performed On: 11/02/2019 2:19 EDT by Teresa Mohamud Rn [place] Suicide Severity Rating Scale (C-SSRS) CSSRS Past Month Wish to be : No CSSRS Past Month Suicidal Thoughts : No CSSRS Lifetime Suicide Behavior : No Suicide Severity Rating Score : 0 Suicide Severity Rating : No Additional Care Required at this time Teresa Mohamud Rn - 11/02/2019 2:19 EDT Electronically signed by Gay Centeno Conversion Telegraphic Typewriter Operator Malloryner at 11/12/2022 9:52 PM CDT documented in this encounter Plan of Treatment Not on file documented as of this encounter Visit Diagnoses Not on filedocumented in this encounter
--- OUTSIDE RECORDS SUMMARY | 2025-03-24 12:23 | XMS_ITS | Clinical Summary ---
Author Organization [employer] ([place], [place], [place], [place]) Address [address] [place] [address] Care Team Providers Care Manager Of Applications Development Name Role Phone Unavailable Primary Care Provider [...]
--- OUTSIDE RECORDS SUMMARY | 2025-03-24 12:23 | XMS_ITS | Encounter Summary ---
Author Organization [employer] ([place], [place], [place], [place]) Address [address] [place] [address] Care Team Providers Care Advance Seal Delivery System Maintainer Name Role Phone Unavailable Primary Care Provider Unavailabl e Encounter Details Date Type Department Care Team (Late st Contact Info) Description 11/09/2019 Transcribed Document [facility] [place] [address] [place] [address] ProviderAgnieszka MD [address], [place] [address] Social History Tobacco Use Types Packs/Day Years [...] On: 11/09/2019 5:00 EDT by Radha Josue Gang Leader-Health Unit Coord Chart Check Powerplans Initiated/Discontinued as Appropriate : Yes All Active Orders Reviewed : Yes Radha Josue Care Asst-Health Unit Coord - 11/09/2019 4:54 EDT documented in this encounter Plan of Treatment Not on file documented as of this encounter Visit Diagnoses Not on filedocumented in this encounter
--- OUTSIDE RECORDS SUMMARY | 2025-03-24 12:23 | XMS_ITS | Encounter Summary ---
Author Organization [employer] ([place], [place], [place], [place]) Address [address] [place] [address] Care Team Providers Care Academic Support Assistant Name Role Phone Unavailable Primary Care Provider Unavailabl e Encounter Details Date Type Department Care Team (Late st Contact Info) Description 11/10/2019 Transcribed Document [facility] [place] Family Medicine [address] [place] [address] ProviderAgnieszka MD [address] [place], [place] [phone] Social History Tobacco Use Types Packs/Day Years Used Date Smoking Tobacco: Never Assessed Sex and Gender Information Value Date Recorded Sex Assigned at Not on file Legal Sex Male 2:38 PM CDT Gender Identity Not on file Sexual Orientation Not on file documented as of this encounter Miscellaneous Notes * Cerner Conversion Note - Historical ProviderMD - 11/10/2019 2:00 AM CDT Ferry Operator Details Entered On: 11/10/2019 4:25 EDT Performed [...]
--- OUTSIDE RECORDS SUMMARY | 2025-03-24 12:23 | XMS_ITS | Encounter Summary ---
Author Organization [employer] ([place], [place], [place], [place]) Address [address] [place] [address] Care Team Providers Care Merchandise Deliverer Name Role Phone Unavailable Primary Care Provider Unavailabl e Encounter Details Date Type Department Care Team (Late st Contact Info) Description 11/10/2019 Transcribed Document [facility] [place] [address] [place] [address] ProviderAgnieszka MD [address], [place] [id number] Social History Tobacco Use Types Packs/Day Years [...] Diagnoses: None Author: BROOKS GORE, [facility] 69yoM with Low Back Pain [...] to sign off -pt to transfer to [facility] today Thank You, Brooks Gore RPh Electronically signed by Taryn [facility] Conversion Criminal Defense Lawyer Cerner at 11/12/2022 9:30 PM CDT documented in this encounter Plan of Treatment Not on file documented as of this encounter Visit Diagnoses Not on filedocumented in this encounter
--- OUTSIDE RECORDS SUMMARY | 2025-03-24 12:23 | XMS_ITS | Encounter Summary ---
Author Organization [employer] ([place], [place], [place], [place]) Address [address] [place] [address] Care Team Providers Care Rv Servicer Name Role Phone Unavailable Primary Care Provider Unavailabl e Encounter Details Date Type Department Care Team (Late st Contact Info) Description 11/09/2019 Transcribed Document [facility] [place] Family Medicine [facility] [place] [address] ProviderAgnieszka MD [address], [place] [id number] Social History Tobacco Use Types Packs/Day Years [...]
--- OUTSIDE RECORDS SUMMARY | 2025-03-24 12:23 | XMS_ITS | Encounter Summary ---
Author Organization [employer] ([place], [place], [place], [place]) Address [address] [place] [address] Care Team Providers Care Contract Post Office Clerk Name Role Phone Unavailable Primary Care Provider Unavailabl e Encounter Details Date Type Department Care Team (Late st Contact Info) Description 11/10/2019 Transcribed Document [facility] [place] Family Medicine [address] [place] [address] ProviderAgnieszka MD [address] [place] [place], [place] [address] Social History Tobacco Use Types Packs/Day Years [...] pleased for one more visit. encouragement provided. Anabaptist Preference : Confucianism JEROME CONNELLY Chaplain - 11/10/2019 19:44 EDT documented in this encounter Plan of Treatment Not on file documented as of this encounter Visit Diagnoses Not on filedocumented in this encounter
--- OUTSIDE RECORDS SUMMARY | 2025-03-24 12:23 | XMS_ITS | Encounter Summary ---
Author Organization [employer] ([place], [place], [place], [place]) Address [address] [place] [address] Care Team Providers Care 3D Animator Name Role Phone Unavailable Primary Care Provider Unavailabl e Encounter Details Date Type Department Care Team (Late st Contact Info) Description 11/02/2019 Transcribed Document [facility] [place] Family Medicine [address] [place] [address] ProviderAgnieszka MD [address] [place], [place] [address] Social History Tobacco Use Types Packs/Day Years [...] of Event : Jovi (son) phone number: [phone] Dori Bah RN - 11/02/2019 3:19 EDT documented in this encounter Plan of Treatment Not on file documented as of this encounter Visit Diagnoses Not on filedocumented in this encounter
--- OUTSIDE RECORDS SUMMARY | 2025-03-24 12:23 | XMS_ITS | Encounter Summary ---
Author Organization [employer] ([place], [place], [place], [place]) Address [address] [place] [address] Care Team Providers Care Aromatherapist Name Role Phone Unavailable Primary Care Provider Unavailabl e Encounter Details Date Type Department Care Team (Late st Contact Info) Description 11/02/2019 Transcribed Document [facility] [place] [facility] [place] [address] ProviderAgnieszka MD [address] [place], [place] [id number] Social History Tobacco Use Types Packs/Day Years [...]
--- OUTSIDE RECORDS SUMMARY | 2025-03-24 12:23 | XMS_ITS | Encounter Summary ---
Author Organization [employer] ([place], [place], [place], [place]) Address [address] [place] [address] Care Team Providers Care Electrician Telephone Name Role Phone Unavailable Primary Care Provider Unavailabl e Encounter Details Date Type Department Care Team (Late st Contact Info) Description 11/02/2019 Transcribed Document [facility] [place] [address] [place] [address] ProviderAgnieszka MD [address] [place], [place] [id number] Social History Tobacco Use Types Packs/Day Years [...] LAVERNE OLSON, PT - 11/03/2019 11:33 EDT Care Home Goals Mobility/Bed Mobility LTG [...]
--- OUTSIDE RECORDS SUMMARY | 2025-03-24 12:23 | XMS_ITS | Encounter Summary ---
Author Organization [employer] ([place], [place], [place], [place]) Address [address] [place] [address] Care Team Providers Care Heating Operators Engineer Name Role Phone Unavailable Primary Care Provider Unavailabl e Encounter Details Date Type Department Care Team (Late st Contact Info) Description 11/08/2019 Transcribed Document [facility] [place] Family Medicine [address] [place] [address] ProviderAgnieszka MD [address] [place], [place] [id number] Social History Tobacco Use Types Packs/Day Years Used Date Smoking Tobacco: Never Assessed Sex and Gender Information Value Date Recorded Sex Assigned at Not on file Legal Sex Male 2:38 PM CDT Gender Identity Not on file Sexual Orientation Not on file documented as of this encounter Miscellaneous Notes * Cerner Conversion Note - Historical ProviderMD - 11/08/2019 2:00 AM CDT Bleacher Sulfite Pulp Details Entered On: 11/08/2019 5:11 EDT Performed [...]
--- OUTSIDE RECORDS SUMMARY | 2025-03-24 12:23 | XMS_ITS | Encounter Summary ---
Author Organization [employer] ([place], [place], [place], [place]) Address [address] [place] [address] Care Team Providers Care Blow Machine Tender Starch Spraying Name Role Phone Unavailable Primary Care Provider Unavailabl e Encounter Details Date Type Department Care Team (Late st Contact Info) Description 11/10/2019 Transcribed Document [facility] [place] [facility] [place] [address] ProviderAgnieszka MD [address], [place] [id number] Social History Tobacco Use Types Packs/Day Years [...] [address]. [place] [address] [place] [address] Lexii Villela NURSE PRACTITIONER Re: SIMBA MAYEN [...] is strictly prohibited. Sincerely, LEXII HOUSTON [address] [address] [address] [place] [address] The following document(s) were included in the letter: November 10, 2019 11:51:00 EDT - (11/10/2019) Discharge Note documented in this encounter Plan of Treatment Not on file documented as of this encounter Visit Diagnoses Not on filedocumented in this encounter
--- OUTSIDE RECORDS SUMMARY | 2025-03-24 12:23 | XMS_ITS | Encounter Summary ---
Author Organization [employer] ([place], [place], [place], [place]) Address [address] [place] [address] Care Team Providers Care Human Resources Partner Name Role Phone Unavailable Primary Care Provider Unavailabl e Encounter Details Date Type Department Care Team (Late st Contact Info) Description 11/10/2019 Transcribed Document [facility] [place] Family [place] [address] [place] [address] ProviderAgnieszka MD [address], [place] [id number] Social History Tobacco Use Types Packs/Day Years [...]
--- OUTSIDE RECORDS SUMMARY | 2025-03-24 12:23 | XMS_ITS | Encounter Summary ---
Author Organization [employer] ([place], [place], [place], [place]) Address [address] [place] [address] Care Team Providers Care Estate Conservator Name Role Phone Unavailable Primary Care Provider Unavailabl e Encounter Details Date Type Department Care Team (Late st Contact Info) Description 11/11/2019 Transcribed Document [facility] [place] [facility] [place] [address] ProviderAgnieszka MD [address] [place], [place] [address] Social History Tobacco Use Types Packs/Day Years [...] mobilty and was non-ambulatory. He discharged to [facility]. LILA PIERCE, PT - 11/11/2019 8:07 [...] LILA PIERCE, PT - 11/11/2019 8:07 EDT Physics Faculty Member Goals Mobility/Bed Mobility LTG PT Grid Goal [...]
--- OUTSIDE RECORDS SUMMARY | 2025-03-24 12:23 | XMS_ITS | Encounter Summary ---
Author Organization [employer] ([place], [place], [place], [place]) Address [address] [place] [address] Care Team Providers Care Design Intern Name Role Phone Unavailable Primary Care Provider Unavailabl e Encounter Details Date Type Department Care Team (Late st Contact Info) Description 11/02/2019 Transcribed Document [place] Family Medicine [address] [place] [address] ProviderAgnieszka MD [address] [place], [place] [address] Social History Tobacco Use Types Packs/Day Years [...] JESSICA ROSENBAUM OTR/Lc - 11/02/2019 14:49 EDT Electronically signed by Gay Centeno Conversion Passenger Car Upholsterer Apprentice Cerner at 11/12/2022 9:46 PM CDT documented in this encounter Plan of Treatment Not on file documented as of this encounter Visit Diagnoses Not on filedocumented in this encounter
--- OUTSIDE RECORDS SUMMARY | 2025-03-24 12:23 | XMS_ITS | Encounter Summary ---
Author Organization [employer] ([place], [place], [place], [place]) Address [address] [place] [address] Care Team Providers Care Ticket Printer Name Role Phone Unavailable Primary Care Provider Unavailabl e Encounter Details Date Type Department Care Team (Late st Contact Info) Description 11/10/2019 Transcribed Document [facility] [place] Family Medicine [facility] [place] [address] ProviderAgnieszka MD [address] [place], [place] [address] Social History Tobacco Use Types Packs/Day Years [...] Disposition, General : Discharge Discharge To : Fpc unit/facility Name of Receiving Facility/Provider : [facility] Mode Of Departure, General Discharge : Ambulance/ALS Accompanied By, Discharge : medical cash poster IV Discontinued : Not applicable IV Therapy Comment : discharged with PICC for fpc antibiotics until January 02 Personal Belongings With Patient : Yes Pt's Own Supply of Medications Returned : No patient supply of medications to return Prescriptions Given to Patient : Yes (Comment: sent with packet to [facility] [Dudley Stuart RN-TRAVELER - 11/10/2019 13:34 EDT] ) Medications Given to Patient : No Discharge Instructions Reviewed With, Opportunity For Questions Given : Other: [facility] staff Patient Education Completed : Yes Number of Prescriptions Given : 3 Teaching Method : Explanation Teaching Evaluation : Verbalizes understanding Education Comment : Advised on plan of care and position changes Dudley Stuart RN-TRAVELER - 11/10/2019 13:34 EDT Electronically signed by Taryn [facility] Conversion Observation Assistant Cerner at 11/12/2022 9:39 PM CDT documented in this encounter Plan of Treatment Not on file documented as of this encounter Visit Diagnoses Not on filedocumented in this encounter
--- OUTSIDE RECORDS SUMMARY | 2025-03-24 12:23 | XMS_ITS | Encounter Summary ---
Author Organization [employer] ([place], [place], [place], [place]) Address [address] [place] [address] Care Team Providers Care Engineering Manager Electronics Name Role Phone Unavailable Primary Care Provider Unavailabl e Encounter Details Date Type Department Care Team (Late st Contact Info) Description 11/09/2019 Transcribed Document [facility] [place] Family Medicine [address] [place] [address] ProviderAgnieszka MD [address] [place], [place] [address] Social History Tobacco Use Types Packs/Day Years [...] EDT Electronically signed by Gay Centeno Conversion [employer] Scout Cerner at 11/12/2022 9:53 PM CDT documented in this encounter Plan of Treatment Not on file documented as of this encounter Visit Diagnoses Not on filedocumented in this encounter
--- OUTSIDE RECORDS SUMMARY | 2025-03-24 12:24 | XMS_ITS | Referral Summary ---
Author Organization [employer] ([place], [place], [place], [place]) Address [address] [place] [address] Care Team Providers Care Supervisor Hot Dip Tinning Name Role Phone Unavailable Primary Care Provider [...]
--- OUTSIDE RECORDS SUMMARY | 2025-03-24 12:24 | XMS_ITS | Encounter Summary ---
Author Organization [employer] ([place], [place], [place], [place]) Address [address] [place] [address] Care Team Providers Care Furnace Packer Name Role Phone Unavailable Primary Care Provider Unavailabl e Encounter Details Date Type Department Care Team (Late st Contact Info) Description 11/09/2019 Transcribed Document [facility] [place] [facility] [place] [address] ProviderAgnieszka MD [address] [place] [phone] Social History Tobacco Use Types Packs/Day Years [...] plan of discharge is to cont with [facility] upon being released. Pt was resting well this am and reported that OT did visit with him earlier. PT orders entered, and awaiting eval. [facility] is closely following pt. Tranportation will need to be arranged. Historical Progress Note : Neuro surgery note for today pending. Initial plans before first surgery were to transition to [facility]. Second surgery was performed, and spoke with pt/spouse and both still agree to safe plan of discharge being [facility] for rehab when medically cleared for discharge. [facility] today, and is going to speak w/pt about facility. CM to cont following SAL BERRIOS RN-Care Management - 11/08/19 14:04:02 Pt off floor since this am for thoracic extension with arrow procedure. CM to cont following, and safe plans of discharge is [facility] when medically cleared to be released. [facility] following SAL BERRIOS RN-Care Management - 11/05/19 12:51:13 Elvia stated that [facility] is following for patient placement. Patient is scheduled for surgery Friday11/05/19. Cm will continue to follow. ELKE VELÁZQUEZ, Recycle Coordinator-Bioinformatics Developer - 11/04/19 13:06:08 Patient is scheduled for an MRI on and surgery on Friday. He reported wanting to go to [facility]. Cm sent referral packet to [facility]. ELKE VELÁZQUEZ Recycle Coordinator-Bioinformatics Developer - 11/03/19 14:33:22 SAL BERRIOS RN-Care Management - 11/09/2019 11:49 EDT documented in this encounter Plan of Treatment Not on file documented as of this encounter Visit Diagnoses Not on filedocumented in this encounter
--- OUTSIDE RECORDS SUMMARY | 2025-03-24 12:24 | XMS_ITS | Encounter Summary ---
Author Organization [employer] ([place], [place], [place], [place]) Address [address] [place] [address] Care Team Providers Care Certified Personal Chef Name Role Phone Unavailable Primary Care Provider Unavailabl e Encounter Details Date Type Department Care Team (Late st Contact Info) Description 11/04/2019 Transcribed Document [facility] [place] [facility] [place] [address] ProviderAgnieszka MD [address] [place], [place] [address] Social History Tobacco Use Types Packs/Day Years [...] MiraLax: 17 Gram, Oral, Daily, PRN: Constipation [place] 10 mg-325 mg oral tablet: 1 Tab, [...] mL: 2 Gram, 100 mL/Hr, IV Piggyback, [id number] heparin: 5,000 Units, SubCutaneous, Q8H hydrALAZINE: 10 mg, IV Push, Q6H, PRN: Hypertension lactobacillus acidophilus: 1 Cap, Oral, Daily morphine: 2 mg, IV Push, Q2H, PRN: Pain (Severe 7-10) sodium chloride 0.9% injectable solution: 10 mL, IV Push, Q8H vancomycin + Sodium Chloride 0.9% intravenous solution 250 mL: 1,250 mg, 250 mL/Hr, IV Piggyback, [id number] Documented Medications Documented Azilect 1 mg oral tablet: 1 Tab, Oral, Daily, 30 Tab, 0 Refill(s) Remicade: 10 mg/kg, IntraVENous, [id number], for Ulcerative Colitis; Last dose: 09/29/2019, 0 [...]
--- OUTSIDE RECORDS SUMMARY | 2025-03-24 12:24 | XMS_ITS | Encounter Summary ---
Author Organization [employer] ([place], [place], [place], [place]) Address [address] [place] [address] Care Team Providers Care Senior Talent Management Consultant Name Role Phone Unavailable Primary Care Provider Unavailabl e Encounter Details Date Type Department Care Team (Late st Contact Info) Description 11/05/2019 Transcribed Document [facility] [place] [facility] [address] ProviderAgnieszka MD [address], [place] [id number] Social History Tobacco Use Types Packs/Day Years [...]
--- OUTSIDE RECORDS SUMMARY | 2025-03-24 12:24 | XMS_ITS | Encounter Summary ---
Author Organization [employer] ([place], [place], [place], [place]) Address [address] [place] [address] Care Team Providers Care Diagnostic Assistant Name Role Phone Unavailable Primary Care Provider Unavailabl e Encounter Details Date Type Department Care Team (Late st Contact Info) Description 11/05/2019 Transcribed Document [facility] [place] Family Medicine [facility] [address] ProviderAgnieszka MD [address] [place] [address] Social History Tobacco Use Types [...]
--- OUTSIDE RECORDS SUMMARY | 2025-03-24 12:24 | XMS_ITS | Encounter Summary ---
Author Organization [employer] ([place], [place], [place], [place]) Address [address] [place] [address] Care Team Providers Care Alpine Patroller Name Role Phone Unavailable Primary Care Provider Unavailabl e Encounter Details Date Type Department Care Team (Late st Contact Info) Description 11/04/2019 Transcribed Document [facility] [place] [facility] [place] [address] ProviderAgnieszka MD [address], [place] [id number] Social History Tobacco Use Types Packs/Day Years [...] 1950 Associated Diagnoses: None Author: EUGENIO BRAXTON, [facility] 69yoM with Low Back Pain - [...]
--- OUTSIDE RECORDS SUMMARY | 2025-03-24 12:24 | XMS_ITS | Encounter Summary ---
Author Organization [employer] ([place], [place], [place], [place]) Address [address] [place] [address] Care Team Providers Care Charge Master Specialist Name Role Phone Unavailable Primary Care Provider Unavailabl e Encounter Details Date Type Department Care Team (Late st Contact Info) Description 11/05/2019 Transcribed Document [facility] Neurology - [address] [facility] [address] [place] [address] Mark Akers MD [address] [facility] [address] [place] [id number] Social History Tobacco Use Types Packs/Day Years [...] 4. Intraoperative CT scan with stereotactic navigation. SENIOR COMPLIANCE ANALYST: Janae Borges. TYPE OF ANESTHESIA: GEA. DESCRIPTION [...] and the usual freehand techniques and the Wireless Safety system, pedicle screws were placed at T6, [...] LOSS: 250 mL. DRAINS: Sam-Burger. COMPLICATIONS: None. /[id number] Mark Akers MD MPT/AQ / MPT / MODL /[id number] CC: Dr. Faustino Jones documented in this encounter Plan of Treatment Not on file documented as of this encounter Visit Diagnoses Not on filedocumented in this encounter
--- OUTSIDE RECORDS SUMMARY | 2025-03-24 12:24 | XMS_ITS | Encounter Summary ---
Author Organization [employer] ([place], [place], [place], [place]) Address [address] [place] [address] Care Team Providers Care Hooker Laster Name Role Phone Unavailable Primary Care Provider Unavailabl e Encounter Details Date Type Department Care Team (Late st Contact Info) Description 11/08/2019 Transcribed Document [facility] [place] [address] [place] [address] ProviderAgnieszka MD [address], [place] [phone] Social History Tobacco Use Types Packs/Day Years [...]
--- OUTSIDE RECORDS SUMMARY | 2025-03-24 12:24 | XMS_ITS | Encounter Summary ---
Author Organization [employer] ([place], [place], [place], [place]) Address [address] [place] [address] Care Team Providers Care Welding Setter Name Role Phone Unavailable Primary Care Provider Unavailabl e Encounter Details Date Type Department Care Team (Late st Contact Info) Description 11/05/2019 Transcribed Document [facility] [place] [address] [place] [address] ProviderAgnieszka MD [address], [place] [id number] Social History Tobacco Use Types Packs/Day Years [...]
--- OUTSIDE RECORDS SUMMARY | 2025-03-24 12:24 | XMS_ITS | Encounter Summary ---
Author Organization [employer] ([place], [place], [place], [place]) Address [address] [place] [address] Care Team Providers Care Commercial Litigation Paralegal Name Role Phone Unavailable Primary Care Provider Unavailabl e Encounter Details Date Type Department Care Team (Late st Contact Info) Description 11/05/2019 Transcribed Document [facility] [place] [address] ProviderAgnieszka MD [address], [place] [id number] Social History Tobacco Use Types Packs/Day Years [...] On: 11/09/2019 0:39 EDT by Radha Josue Patent Chemist-Health Unit Coord Intervention Information: oxyCODONE Performed by Radha Josue Patent Chemist-Health Unit Coord on 11/08/2019 23:39:00 EDT oxyCODONE,10mg Oral,Pain (Moderate 4-6) Pain Assessment Pain Assessment : Follow-up assessment Pain Scale Goal : 2 Pain Scale Used : 0-10 Scale Radha Josue Care Asst-Health Unit Coord - 11/09/2019 4:50 EDT Pain Scale Intensity : 1 Radha Josue Patent Chemist-Health Unit Coord - 11/09/2019 4:50 EDT Image 4 - Images currently included in the form version of this document have not been included in the text rendition version of the form. documented in this encounter Plan of Treatment Not on file documented as of this encounter Visit Diagnoses Not on filedocumented in this encounter
--- OUTSIDE RECORDS SUMMARY | 2025-03-24 12:24 | XMS_ITS | Encounter Summary ---
Author Organization [employer] ([place], [place], [place], [place]) Address [address] [place] [address] Care Team Providers Care Client Engagement Manager Name Role Phone Unavailable Primary Care Provider Unavailabl e Encounter Details Date Type Department Care Team (Late st Contact Info) Description 11/09/2019 Transcribed Document [facility] [place] Family Medicine [address] [place] [address] ProviderAgnieszka MD [address], [place] [address] Social History Tobacco Use Types Packs/Day Years Used Date Smoking Tobacco: Never Assessed Sex and Gender Information Value Date Recorded Sex Assigned at Not on file Legal Sex Male 2:38 PM CDT Gender Identity Not on file Sexual Orientation Not on file documented as of this encounter Miscellaneous Notes * Cerner Conversion Note - Historical ProviderMD - 11/09/2019 2:00 AM CDT Furnace Door Tender Details Entered On: 11/09/2019 4:51 EDT Performed On: 11/09/2019 2:00 EDT by Radha Josue [facility] Order Details Transport Mode Order Detail : Stretcher/Gurney Isolation Precautions Order Detail : Standard Precautions Order Detail : N/A IV Order Detail : 0 Oxygen Order Detail : 0 Nurse Collect Order Detail : 1 Lift/Transfer : Independent Central Line Order Detail : Yes Room Service : Not Appropriate Arterial Line : No Radha Josue [facility] - 11/09/2019 4:51 EDT documented in this encounter Plan of Treatment Not on file documented as of this encounter Visit Diagnoses Not on filedocumented in this encounter
--- OUTSIDE RECORDS SUMMARY | 2025-03-24 12:24 | XMS_ITS | Encounter Summary ---
Author Organization [employer] ([place], [place], [place], [place]) Address [address] [place] [address] Care Team Providers Care Money Counter Name Role Phone Unavailable Primary Care Provider Unavailabl e Encounter Details Date Type Department Care Team (Late st Contact Info) Description 11/03/2019 Transcribed Document [facility] [place] [address] [place] [address] ProviderAgnieszka MD [address] [place], [place] [address] Social History Tobacco Use Types Packs/Day Years [...]
--- OUTSIDE RECORDS SUMMARY | 2025-03-24 12:24 | XMS_ITS | Encounter Summary ---
Author Organization [employer] ([place], [place], [place], [place]) Address [address] [place] [address] Care Team Providers Care Commercial Front Load Operator Name Role Phone Unavailable Primary Care Provider Unavailabl e Encounter Details Date Type Department Care Team (Late st Contact Info) Description 11/05/2019 Transcribed Document [facility] [place] [address] [place] [address] ProviderAgnieszka MD [address] [place], [place] [id number] Social History Tobacco Use Types Packs/Day Years Used Date Smoking Tobacco: Never Assessed Sex and Gender Information Value Date Recorded Sex Assigned at Not on file Legal Sex Male 2:38 PM CDT Gender Identity Not on file Sexual Orientation Not on file documented as of this encounter Miscellaneous Notes * Cerner Conversion Note - Historical ProviderMD - 11/05/2019 2:00 AM CDT Procedure Manager Details Entered On: 11/05/2019 5:20 EDT Performed [...] Lily Page RN - 11/05/2019 5:20 EDT Electronically signed by Gay Centeno Conversion Grades 1 Thru 6 Visiting Teacher Cerner at 11/12/2022 9:47 PM CDT documented in this encounter Plan of Treatment Not on file documented as of this encounter Visit Diagnoses Not on filedocumented in this encounter
--- OUTSIDE RECORDS SUMMARY | 2025-03-24 12:24 | XMS_ITS | Encounter Summary ---
Author Organization [employer] ([place], [place], [place], [place]) Address [address] [place] [address] Care Team Providers Care Wetlands Conservation Laborer Name Role Phone Unavailable Primary Care Provider Unavailabl e Encounter Details Date Type Department Care Team (Late st Contact Info) Description 11/08/2019 Transcribed Document [facility] [place] [facility] [place] [address] ProviderAgnieszka MD [address], [place] [address] Social History Tobacco Use Types Packs/Day Years [...] before first surgery were to transition to [facility]. Second surgery was performed, and spoke with pt/spouse and both still agree to safe plan of discharge being [facility] for rehab when medically cleared for discharge. Spoke to Collene/[facility] today, and is going to speak w/pt about facility. CM to cont following Historical Progress Note : Pt off floor since this am for thoracic extension with arrow procedure. CM to cont following, and safe plans of discharge is [facility] when medically cleared to be released. [facility] following SAL BERRIOS RN-Care Management - 11/05/19 12:51:13 Elvia stated that [facility] is following for patient placement. Patient is scheduled for surgery Friday11/05/19. Cm will continue to follow. ELKE VELÁZQUEZ, Plumbing Contractor-Director Data Analytics - 11/04/19 13:06:08 Patient is scheduled for an MRI on and surgery on Friday. He reported wanting to go to [facility]. Cm sent referral packet to [facility]. ELKE VELÁZQUEZ Plumbing Contractor-Director Data Analytics - 11/03/19 14:33:22 SAL BERRIOS RN-Care Management - 11/08/2019 13:58 EDT documented in this encounter Plan of Treatment Not on file documented as of this encounter Visit Diagnoses Not on filedocumented in this encounter
--- OUTSIDE RECORDS SUMMARY | 2025-03-24 12:24 | XMS_ITS | Encounter Summary ---
Author Organization [employer] ([place], [place], [place], [place]) Address [address] [place] [address] Care Team Providers Care Clinical Trial Associate Name Role Phone Unavailable Primary Care Provider Unavailabl e Encounter Details Date Type Department Care Team (Late st Contact Info) Description 11/04/2019 Transcribed Document [facility] [place] [facility] [place] [address] ProviderAgnieszka MD [address], [place] [id number] Social History Tobacco Use Types Packs/Day Years [...] mg= 1 mL, IV Push, Q2H, PRN [place] 10 mg-325 mg oral tablet, 1 Tab, [...] Appearance CLEAR2 11/03/2019 14:00 EDT Urine Specific [place] 1.027 11/03/2019 14:00 EDT Urine pH Dipstick [...] 11/03/2019 20:19 EDT Electronically signed by Taryn, [facility] Conversion Finished Hardware Erector Cerner at 11/12/2022 9:31 PM CDT documented in this encounter Plan of Treatment Not on file documented as of this encounter Visit Diagnoses Not on filedocumented in this encounter
--- OUTSIDE RECORDS SUMMARY | 2025-03-24 12:24 | XMS_ITS | Encounter Summary ---
Author Organization [employer] ([place], [place], [place], [place]) Address [address] [place] [address] Care Team Providers Care Spanish Interpreter Name Role Phone Unavailable Primary Care Provider Unavailabl e Encounter Details Date Type Department Care Team (Late st Contact Info) Description 11/04/2019 Transcribed Document [facility] [place] Family Medicine [address] [place] [address] ProviderAgnieszka MD [address], [place] [address] Social History Tobacco Use Types Packs/Day Years [...]
--- OUTSIDE RECORDS SUMMARY | 2025-03-24 12:24 | XMS_ITS | Encounter Summary ---
Author Organization [employer] ([place], [place], [place], [place]) Address [address] [place] [address] Care Team Providers Care Jewel Hole Cornerer Name Role Phone Unavailable Primary Care Provider Unavailabl e Encounter Details Date Type Department Care Team (Late st Contact Info) Description 11/08/2019 Transcribed Document [facility] [place] [address] [place] [address] ProviderAgnieszka MD [address] [place], [place] [address] Social History Tobacco Use Types Packs/Day Years [...]
--- OUTSIDE RECORDS SUMMARY | 2025-03-24 12:24 | XMS_ITS | Encounter Summary ---
Author Organization [employer] ([place], [place], [place], [place]) Address [address] [place] [address] Care Team Providers Care Compression Molding Machine Tender Name Role Phone Unavailable Primary Care Provider Unavailabl e Encounter Details Date Type Department Care Team (Late st Contact Info) Description 11/05/2019 Transcribed Document [facility] [place] [address] [place] [address] ProviderAgnieszka MD [address] [place], [place] [address] Social History Tobacco Use Types Packs/Day Years [...] LAVERNE OLSON PT - 11/05/2019 13:57 EDT Electronically signed by Gay Centeno Conversion Agricultural Chemicals Inspector Cerner at 11/12/2022 9:47 PM CDT documented in this encounter Plan of Treatment Not on file documented as of this encounter Visit Diagnoses Not on filedocumented in this encounter
--- OUTSIDE RECORDS SUMMARY | 2025-03-24 12:24 | XMS_ITS | Encounter Summary ---
Author Organization [employer] ([place], [place], [place], [place]) Address [address] [place] [address] Care Team Providers Care Risk Officer Name Role Phone Unavailable Primary Care Provider Unavailabl e Encounter Details Date Type Department Care Team (Late st Contact Info) Description 11/05/2019 Transcribed Document [facility] [place] Family Medicine [address] [place] [address] ProviderAgnieszka MD [address], [place] [id number] Social History Tobacco Use Types Packs/Day Years Used Date Smoking Tobacco: Never Assessed Sex and Gender Information Value Date Recorded Sex Assigned at Not on file Legal Sex Male 2:38 PM CDT Gender Identity Not on file Sexual Orientation Not on file documented as of this encounter Miscellaneous Notes * Cerner Conversion Note - Agnieszka ProviderMD - 11/05/2019 9:27 AM CDT [facility] Main OR PACU Summary Primary Physician: HEIDE KAT MD-U Finalized Date/Time: 11/05/19 13:46:04 Pt. Name: SIMBA MAYEN JR/Sex: 1950 Male Med Rec #: [id number] Physician: LORENA SAGASTUME MD-INT Financial #: [id number] Pt. Type: I Room/Bed: [facility]/ Admit/Disch: 11/02/19 02:59:00 - Institution: [facility] Main OR PACU I Case Times Entry 1 In PACU I 11/05/19 12:11:00 Ready for PACU 11/05/19 13:40:00 Discharge Discharge from PACU 11/05/19 13:40:00 I Last Modified By: Danelle Fam RN 11/05/19 13:44:22 Finalized By: Danelle Fam, RN Document Signatures Signed By: Danelle Fam RN 11/05/19 13:46 Electron[address] Taryn [facility] Conversion Wireline Field Operator Cerner at 11/12/2022 9:32 PM CDT documented in this encounter Plan of Treatment Not on file documented as of this encounter Visit Diagnoses Not on filedocumented in this encounter
--- OUTSIDE RECORDS SUMMARY | 2025-03-24 12:24 | XMS_ITS | Encounter Summary ---
Author Organization [employer] ([place], [place], [place], [place]) Address [address] [place] [address] Care Team Providers Care Awning Finisher Name Role Phone Unavailable Primary Care Provider Unavailabl e Encounter Details Date Type Department Care Team (Late st Contact Info) Description 11/09/2019 Transcribed Document [facility] [place] Family Medicine [address] [place] [address] ProviderAgnieszka MD [address], [place] [address] Social History Tobacco Use Types Packs/Day Years [...] On: 11/09/2019 2:59 EDT by Radha Josue [facility] Intervention Information: acetaminophen Performed by Radha Josue [facility] Unit Coord on 11/09/2019 01:59:00 EDT acetaminophen,650mg Oral Pain Assessment Pain Assessment : Follow-up assessment Pain Scale Goal : 2 Pain Scale Used : 0-10 Scale Radha Josue [facility] - 11/09/2019 4:51 EDT documented in this encounter Plan of Treatment Not on file documented as of this encounter Visit Diagnoses Not on filedocumented in this encounter
--- OUTSIDE RECORDS SUMMARY | 2025-03-24 12:24 | XMS_ITS | Encounter Summary ---
Author Organization [employer] ([place], [place], [place], [place]) Address [address] [place] [address] Care Team Providers Care Lcac Operator Name Role Phone Unavailable Primary Care Provider Unavailabl e Encounter Details Date Type Department Care Team (Late st Contact Info) Description 11/05/2019 Transcribed Document [facility] [place] [facility] [place] [address] ProviderAgnieszka MD [address], [place] [id number] Social History Tobacco Use Types Packs/Day Years [...] : Yes Central Line Insertion Facility : [facility] Central Line Insertion Start Date/Time : 11/05/2019 15:37 EDT Central Catheter Type : Power injection PICC Central Line Lot Number : [id number] Central Line Vessel Cannulated : Median basilic [...] RHONDA G, PICC-RN - 11/05/2019 16:44 EDT Electronically signed by Gay Centeno Conversion Environmental Research Scientist Cerner at 11/12/2022 9:37 PM CDT documented in this encounter Plan of Treatment Not on file documented as of this encounter Visit Diagnoses Not on filedocumented in this encounter
--- OUTSIDE RECORDS SUMMARY | 2025-03-24 12:24 | XMS_ITS | Encounter Summary ---
Author Organization [employer] ([place], [place], [place], [place]) Address [address] [place] [address] Care Team Providers Care C.O.D. Biller Name Role Phone Unavailable Primary Care Provider Unavailabl e Encounter Details Date Type Department Care Team (Late st Contact Info) Description 11/09/2019 Transcribed Document [facility] [place] [facility] [place] [address] ProviderAgnieszka MD [address] [place], [place] [address] Social History Tobacco Use Types Packs/Day Years [...] mL: 2 Gram, 200 mL/Hr, IV Piggyback, [id number] docusate sodium: 200 mg, Oral, BID heparin: [...] mL: 1,250 mg, 250 mL/Hr, IV Piggyback, [id number] Pending Complete fentaNYL: 25 mcg, IV Push, Q10Min Documented Medications Documented Azilect 1 mg oral tablet: 1 Tab, Oral, Daily, 30 Tab, 0 Refill(s) Remicade: 10 mg/kg, IntraVENous, [id number], for Ulcerative Colitis; Last dose: 09/29/2019, 0 [...] micro id prior to making plans for [facility] transfer -- probiotic ?Continue to follow cultures and sensitivity reports an just antibiotics accordingly ?Follow daily labs while in hospital and trend results Discussed at length with in room documented in this encounter Plan of Treatment Not on file documented as of this encounter Visit Diagnoses Not on filedocumented in this encounter
--- OUTSIDE RECORDS SUMMARY | 2025-03-24 12:24 | XMS_ITS | Encounter Summary ---
Author Organization [employer] ([place], [place], [place], [place]) Address [address] [place] [address] Care Team Providers Care Procedure Analyst Name Role Phone Unavailable Primary Care Provider Unavailabl e Encounter Details Date Type Department Care Team (Late st Contact Info) Description 11/08/2019 Transcribed Document [facility] [place] [address] [place] [address] ProviderAgnieszka MD [facility] [place], [place] [id number] Social History Tobacco Use Types Packs/Day Years [...]
--- OUTSIDE RECORDS SUMMARY | 2025-03-24 12:24 | XMS_ITS | Encounter Summary ---
Author Organization [employer] ([place], [place], [place], [place]) Address [address] [place] [address] Care Team Providers Care Casino Duty Manager Name Role Phone Unavailable Primary Care Provider Unavailabl e Encounter Details Date Type Department Care Team (Late st Contact Info) Description 11/05/2019 Transcribed Document [facility] [place] Family Medicine [address] [place] [address] ProviderAgnieszka MD [address] [place], [place] [id number] Social History Tobacco Use Types Packs/Day Years Used Date Smoking Tobacco: Never Assessed Sex and Gender Information Value Date Recorded Sex Assigned at Not on file Legal Sex Male 2:38 PM CDT Gender Identity Not on file Sexual Orientation Not on file documented as of this encounter Miscellaneous Notes * Cerner Conversion Note - Agnieszka ProviderMD - 11/05/2019 9:27 AM CDT [facility] Main OR Preop Summary Primary Physician: HEIDE KAT MD-U Finalized Date/Time: 11/05/19 12:33:22 Pt. Name: SIMBA MAYEN JR/Sex: 1950 Male Med Rec #: [id number] Physician: LORENA SAGASTUME MD-INT Financial #: [id number] Pt. Type: I Room/Bed: [facility]/ Admit/Disch: 11/02/19 02:59:00 - Institution: [facility] PreOp Case Times Entry 1 In Preop 11/05/19 06:54:00 Ready for Holding n/a Room Patient Ready for 11/05/19 07:32:00 Surgery Patient Out of Preop 11/05/19 08:23:00 Patient Out of n/a Holding Room Last Modified By: Danelle Parekh, Nurse Supervisor Hand Silvering 11/05/19 12:33:18 [facility] PreOp Case Times Audit 11/05/19 12:33:18 Drier Tender: ASHKAN Modifier: [id number] <+> 1 Patient Out of Preop Finalized By: Danelle Parekh, Nurse Land Management Forester Signatures Signed By: Danelle Parekh, Nurse Supervisor Hand Silvering 11/05/19 12:33 Electronically signed by Taryn [facility] Conversion Machine Rigger Cerner at 11/12/2022 9:36 PM CDT documented in this encounter Plan of Treatment Not on file documented as of this encounter Visit Diagnoses Not on filedocumented in this encounter
--- OUTSIDE RECORDS SUMMARY | 2025-03-24 12:24 | XMS_ITS | Encounter Summary ---
Author Organization [employer] ([place], [place], [place], [place]) Address [address] [place] [address] Care Team Providers Care Hook Up Name Role Phone Unavailable Primary Care Provider Unavailabl e Encounter Details Date Type Department Care Team (Late st Contact Info) Description 11/09/2019 Transcribed Document [facility] [place] Family Medicine [address] [place] [address] ProviderAgnieszka MD [address], [place] [id number] Social History Tobacco Use Types Packs/Day Years [...] Ministry Provided to : Patient, Family/Significant other Hinduism Preference : Oriental Orthodox JEROME CONNELLY Chaplain - 11/09/2019 19:24 EDT [...]
--- OUTSIDE RECORDS SUMMARY | 2025-03-24 12:24 | XMS_ITS | Encounter Summary ---
Author Organization [employer] ([place], [place], [place], [place]) Address [address] [place] [address] Care Team Providers Care Ssis Developer Name Role Phone Unavailable Primary Care Provider Unavailabl e Encounter Details Date Type Department Care Team (Late st Contact Info) Description 11/04/2019 Transcribed Document [facility] [place] [facility] [place] [address] ProviderAgnieszka MD [address] [place], [place] [address] Social History Tobacco Use Types Packs/Day Years [...] On: 11/04/2019 13:05 EDT by ELKE VELÁZQUEZ, Section Weaver-Oil Furnace Installer Care Management Progress Note Discharge Arrangements : [...] Attend Multidisciplinary Rounds? : No ELKE VELÁZQUEZ Section Weaver-Oil Furnace Installer - 11/04/2019 13:05 EDT Narrative Progress Note Narrative Progress Note : Elvia stated that [facility] is following for patient placement. Patient is scheduled for surgery Friday11/05/19. Cm will continue to follow. Historical Progress Note : Patient is scheduled for an MRI on and surgery on Friday. He reported wanting to go to [facility]. Cm sent referral packet to [facility]. ELKE VELÁZQUEZ Section Weaver-Oil Furnace Installer - 11/03/19 14:33:22 ELKE VELÁZQUEZ Section Weaver-Oil Furnace Installer - 11/04/2019 13:05 EDT documented in this encounter Plan of Treatment Not on file documented as of this encounter Visit Diagnoses Not on filedocumented in this encounter
--- OUTSIDE RECORDS SUMMARY | 2025-03-24 12:24 | XMS_ITS | Encounter Summary ---
Author Organization [employer] ([place], [place], [place], [place]) Address [address] [place] [address] Care Team Providers Care Machine Precision Engraver Name Role Phone Unavailable Primary Care Provider Unavailabl e Encounter Details Date Type Department Care Team (Late st Contact Info) Description 11/03/2019 Transcribed Document [facility] [place] [address] [place] [address] ProviderAgnieszka MD [address] [place], [place] [id number] Social History Tobacco Use Types Packs/Day Years [...] On: 11/03/2019 14:41 EDT by OC PRINCE Nuclear Medicine Technologist Primary Insurance Authorization Authorization and Policy Numbers : Insurance 1 Health Plan: MEDICARE Policy Number: [id number] Authorization Number: Insurance 2 Health Plan: FOR LIFE Policy Number: [id number] Authorization Number: Insurance Primary Name : MEDICARE Policy Number: [id number] Authorized Service Begin Date-Primary : 11/02/2019 EDT Authorization Comments-Primary : patient is scheduled for Lumbar Fusion Posterior on 11/05/2019 Pt is currently admitted as an inpt already on 4A. Historical Authorization Comments-Primary : No Authorization Comments Found OC PRINCE, Nuclear Medicine Technologist - 11/03/2019 14:41 EDT documented in this encounter Plan of Treatment Not on file documented as of this encounter Visit Diagnoses Not on filedocumented in this encounter
--- OUTSIDE RECORDS SUMMARY | 2025-03-24 12:24 | XMS_ITS | Encounter Summary ---
Author Organization [employer] ([place], [place], [place], [place]) Address [address] [place] [address] Care Team Providers Care Survey Coordinator Name Role Phone Unavailable Primary Care Provider Unavailabl e Encounter Details Date Type Department Care Team (Late st Contact Info) Description 11/04/2019 Transcribed Document [facility] [place] [facility] [place] [address] ProviderAgnieszka MD [address], [place] [id number] Social History Tobacco Use Types Packs/Day Years [...] form. Electronically signed by Gay Centeno Conversion Physical Integration Practitioner Cerner at 11/12/2022 9:46 PM CDT documented in this encounter Plan of Treatment Not on file documented as of this encounter Visit Diagnoses Not on filedocumented in this encounter
--- OUTSIDE RECORDS SUMMARY | 2025-03-24 12:24 | XMS_ITS | Encounter Summary ---
Author Organization [employer] ([place], [place], [place], [place]) Address [address] [place] [address] Care Team Providers Care Casting Cleaner Name Role Phone Unavailable Primary Care Provider Unavailabl e Encounter Details Date Type Department Care Team (Late st Contact Info) Description 11/04/2019 Transcribed Document [facility] [place] Family Medicine [address] [place] [address] ProviderAgnieszka MD [address], [place] [address] Social History Tobacco Use Types Packs/Day Years Used Date Smoking Tobacco: Never Assessed Sex and Gender Information Value Date Recorded Sex Assigned at Not on file Legal Sex Male 2:38 PM CDT Gender Identity Not on file Sexual Orientation Not on file documented as of this encounter Miscellaneous Notes * Cerner Conversion Note - Historical ProviderMD - 11/04/2019 2:00 AM CDT Beam Dyer Recessed Vat Details Entered On: 11/04/2019 4:42 EDT Performed On: 11/04/2019 2:00 EDT by Radha Josue [facility] Order Details Transport Mode Order Detail : Stretcher/Gurney Isolation Precautions Order Detail : Standard Precautions Order Detail : N/A IV Order Detail : 1 Oxygen Order Detail : 0 Nurse Collect Order Detail : 0 Lift/Transfer : Independent Central Line Order Detail : No Room Service : Not Appropriate Arterial Line : No Radha Josue [facility] - 11/04/2019 4:41 EDT documented in this encounter Plan of Treatment Not on file documented as of this encounter Visit Diagnoses Not on filedocumented in this encounter
--- OUTSIDE RECORDS SUMMARY | 2025-03-24 12:24 | XMS_ITS | Encounter Summary ---
Author Organization [employer] ([place], [place], [place], [place]) Address [address] [place] [address] Care Team Providers Care Skin Washer Name Role Phone Unavailable Primary Care Provider Unavailabl e Encounter Details Date Type Department Care Team (Late st Contact Info) Description 11/09/2019 Transcribed Document [facility] Family Medicine [address] [place] [address] ProviderAgnieszka MD [address] [place] [address] Social History Tobacco Use Types [...] Laminectomy Hx: Parkinsons, DJD, spinal stenosis, previous [id number] fusion. JACQUI MCGUIRE, PT - 11/09/2019 11:42 [...] JACQUI MCGUIRE, PT - 11/09/2019 11:42 EDT Notching Press Operator Goals Mobility/Bed Mobility LTG PT Grid [...] JACQUI MCGUIRE, PT - 11/09/2019 11:42 EDT [place] PT Charges PT Re-Evaluation : 1 JACQUI [...]
--- OUTSIDE RECORDS SUMMARY | 2025-03-24 12:24 | XMS_ITS | Encounter Summary ---
Author Organization [employer] ([place], [place], [place], [place]) Address [address] [place] [address] Care Team Providers Care Human Capital Manager Name Role Phone Unavailable Primary Care Provider Unavailabl e Encounter Details Date Type Department Care Team (Late st Contact Info) Description 11/03/2019 Transcribed Document [facility] [place] Family Medicine [facility] [place] [address] ProviderAgnieszka MD [address] [place], [place] [address] Social History Tobacco Use Types Packs/Day Years [...] mL: 2 Gram, 100 mL/Hr, IV Piggyback, [id number] lactobacillus acidophilus: 1 Cap, Oral, Daily vancomycin + Sodium Chloride 0.9% intravenous solution 250 mL: 1,250 mg, 250 mL/Hr, IV Piggyback, [id number] Physical Examination VS/Measurements Vitals Signs (last 24 [...] EDT Height Source Stated Height Entry Format [place] Height/Length, BELGIAN (ft) 5 ft Height/Length BELGIAN 9 Inch CLINICALHEIGHT 175.26 cm [place] Body Weight 70 kg Weight Source Standing scale Weight Entry Format [place] Weight Citizen Of [place] lb 178 lb Weight Citizen Of [place] oz 6 oz CLINICALWEIGHT 81.08 kg Body Surface Area (BSA) 1.97 m2 Body Mass Index 26.4 kg/m2 HI 11/02/2019 0:47 EDT Height Source Stated Height Entry Format [place] Height/Length, [place] (ft) 5 ft Height/Length [place] 9 Inch CLINICALHEIGHT 175.26 cm [place] Body Weight 69.73 kg Weight Source, ED Critical estimated dosing weight Weight Entry Format [place] Weight Citizen [place] lb 205 lb CLINICALWEIGHT 93.18 kg Body [...]
--- OUTSIDE RECORDS SUMMARY | 2025-03-24 12:24 | XMS_ITS | Encounter Summary ---
Author Organization [employer] ([place], [place], [place], [place]) Address [address] [place] [address] Care Team Providers Care Test Development Engineer Name Role Phone Unavailable Primary Care Provider Unavailabl e Encounter Details Date Type Department Care Team (Late st Contact Info) Description 11/04/2019 Transcribed Document [facility] [place] Family Medicine [address] [place] [address] ProviderAgnieszka MD [address] [place], [place] [address] Social History Tobacco Use Types Packs/Day Years [...] On: 11/04/2019 5:00 EDT by Radha Josue Patient Assistant-Health Unit Coord Chart Check Powerplans Initiated/Discontinued as Appropriate : Yes All Active Orders Reviewed : Yes Radha Josue Care Asst-Health Unit Coord - 11/04/2019 4:43 EDT documented in this encounter Plan of Treatment Not on file documented as of this encounter Visit Diagnoses Not on filedocumented in this encounter
--- OUTSIDE RECORDS SUMMARY | 2025-03-24 12:24 | XMS_ITS | Encounter Summary ---
Author Organization [employer] ([place], [place], [place], [place]) Address [address] [place] [address] Care Team Providers Care Music Researcher Name Role Phone Unavailable Primary Care Provider Unavailabl e Encounter Details Date Type Department Care Team (Late st Contact Info) Description 11/05/2019 Transcribed Document [facility] [place] Family Medicine [address] [place] [address] ProviderAgnieszka MD [address] [place], [place] [id number] Social History Tobacco Use Types Packs/Day Years [...]
--- OUTSIDE RECORDS SUMMARY | 2025-03-24 12:24 | XMS_ITS | Encounter Summary ---
Author Organization [employer] ([place], [place], [place], [place]) Address [address] [place] [address] Care Team Providers Care Director International Name Role Phone Unavailable Primary Care Provider Unavailabl e Encounter Details Date Type Department Care Team (Late st Contact Info) Description 11/03/2019 Transcribed Document [facility] [place] Medicine [facility] [place] [address] ProviderAgnieszka MD [address] [place], [place] [id number] Social History Tobacco Use Types Packs/Day Years [...] On: 11/03/2019 14:32 EDT by ELKE VELÁZQUEZ, Creative Writing Teacher-Procurement Officer Care Management Progress Note Discharge Arrangements : [...] Attend Multidisciplinary Rounds? : No ELKE VELÁZQUEZ, Creative Writing Teacher-Procurement Officer - 11/03/2019 14:32 EDT Narrative Progress Note Narrative Progress Note : Patient is scheduled for an MRI on and surgery on Friday. He reported wanting to go to [facility]. Cm sent referral packet to [facility]. ELKE VELÁZQUEZ Creative Writing Teacher-Procurement Officer - 11/03/2019 14:32 EDT documented in this encounter Plan of Treatment Not on file documented as of this encounter Visit Diagnoses Not on filedocumented in this encounter
--- OUTSIDE RECORDS SUMMARY | 2025-03-24 12:25 | XMS_ITS | Encounter Summary ---
Author Organization [employer] ([place], [place], [place], [place]) Address [address] [place] [address] Care Team Providers Care Gaming Cashier Name Role Phone Unavailable Primary Care Provider Unavailabl e Encounter Details Date Type Department Care Team (Late st Contact Info) Description 12/22/2018 Transcribed Document [facility] [place] [facility] [place] [address] ProviderAgnieszka MD [address], [place] [id number] Social History Tobacco Use Types Packs/Day Years [...] form. Electronically signed by Gay Centeno Conversion Servicenow Administrator Developer Cerner at 11/12/2022 9:46 PM CDT documented in this encounter Plan of Treatment Not on file documented as of this encounter Visit Diagnoses Not on filedocumented in this encounter
--- OUTSIDE RECORDS SUMMARY | 2025-03-24 12:25 | XMS_ITS | Encounter Summary ---
Author Organization [employer] ([place], [place], [place], [place]) Address [address] [place] [address] Care Team Providers Care Technical Documentation Specialist Name Role Phone Unavailable Primary Care Provider Unavailabl e Encounter Details Date Type Department Care Team (Late st Contact Info) Description 11/07/2019 Transcribed Document [facility] [place] [address] [place] [address] ProviderAgnieszka MD [address] [place], [place] [address] Social History Tobacco Use Types Packs/Day Years [...]
--- OUTSIDE RECORDS SUMMARY | 2025-03-24 12:25 | XMS_ITS | Encounter Summary ---
Author Organization [employer] ([place], [place], [place], [place]) Address [address] [place] [address] Care Team Providers Care Head Librarian Name Role Phone Unavailable Primary Care Provider Unavailabl e Encounter Details Date Type Department Care Team (Late st Contact Info) Description 11/02/2019 Transcribed Document [facility] [place] Family Medicine [facility] [place] [address] ProviderAgnieszka MD [address], [place] [id number] Social History Tobacco Use Types Packs/Day Years [...] : 3 - Urgent Tracking Group : [facility] ED Danelle Maya RN - 11/02/2019 0:47 [...] 11/02/2019 00:50:04 EDT) Problems(Active) Arthritis (SNOMED CT :8632522 ) Name of Problem: Arthritis ; Recorder: MILTON GAMEZ RN; Confirmation: Confirmed ; Classification: Medical ; Code: [id number] ; Contributor System: Dhingana ; Last Updated: 12/16/2018 11:30 EDT ; Life Cycle Date: 12/16/2018 ; Life Cycle Status: Active ; Vocabulary: SNOMED CT Colitis (SNOMED CT :4181337025 ) Name of Problem: Colitis ; Recorder: MILTON GAMEZ RN; Confirmation: Confirmed ; Classification: Medical ; Code: [id number] ; Contributor System: Dhingana ; Last Updated: 12/16/2018 11:30 EDT ; Life Cycle Date: 12/16/2018 ; Life Cycle Status: Active ; Vocabulary: SNOMED CT DJD (degenerative joint disease) of thoracic spine (SNOMED CT :1852091079 ) Name of Problem: DJD (degenerative joint disease) of thoracic spine ; Recorder: MILTON GAMEZ RN; Confirmation: Confirmed ; Classification: Medical ; Code: [id number] ; Contributor System: [email or web address] ; Last Updated: 12/16/2018 11:30 EDT ; Life Cycle Date: 12/16/2018 ; Life Cycle Status: Active ; Vocabulary: SNOMED CT History of obstructive sleep apnea (IMO :58821610 ) Name of Problem: History of obstructive sleep apnea ; Recorder: SYSTEM, SYSTEM; Confirmation: Confirmed ; Classification: Medical ; Code: [id number] ; Last Updated: 12/16/2018 11:47 EDT ; Life Cycle Date: 12/16/2018 ; Life Cycle Status: Active ; Vocabulary: IMO Parkinson disease (SNOMED CT :83022685 ) Name of Problem: Parkinson disease ; Recorder: MILTON GAMEZ RN; Confirmation: Confirmed ; Classification: Medical ; Code: [id number] ; Contributor System: Dhingana ; Last Updated: 12/16/2018 11:28 EDT ; Life Cycle Date: 12/16/2018 ; Life Cycle Status: Active ; Vocabulary: SNOMED CT Scoliosis (SNOMED CT :221410255 ) Name of Problem: Scoliosis ; Recorder: MILTON GAMEZ RN; Confirmation: Confirmed ; Classification: Medical ; Code: [id number] ; Contributor System: Dhingana ; Last Updated: 12/16/2018 11:29 EDT ; Life Cycle Date: 12/16/2018 ; Life Cycle Status: Active ; Vocabulary: SNOMED CT Diagnoses(Active) Back pain Date: 11/02/2019 ; Diagnosis Type: Reason For Visit ; Confirmation: Complaint of ; Clinical Dx: Back pain ; Classification: Medical ; Clinical Service: Non-Specified ; Code: PNED ; Probability: 0 ; Diagnosis Code: [id number] ED Height and Weight Height Source : Stated Height Entry Format : [place] Height, Feet : 5 ft(Converted to: 152 cm, 60 Inch) Height, Inches : 9 Inch(Converted to: 0 ft 9 Inch, 22.86 cm) Clinical Height : 175.26 cm Weight Source, ED : Critical estimated dosing weight Weight Entry Format : [place] Weight, Pounds : 205 lb Clinical Dosing Weight : 93.18 kg Body Surface Area (BSA) : 2.09 m2 Body Mass Index : 30.3 kg/m2 (HI) [place] Body Weight (IBW) : 69.73 kg Danelle Maya RN - 11/02/2019 0:47 EDT documented in this encounter Plan of Treatment Not on file documented as of this encounter Visit Diagnoses Not on filedocumented in this encounter
--- OUTSIDE RECORDS SUMMARY | 2025-03-24 12:25 | XMS_ITS | Encounter Summary ---
Author Organization [employer] ([place], [place], [place], [place]) Address [address] [place] [address] Care Team Providers Care Assistant Finance Director Name Role Phone Unavailable Primary Care Provider Unavailabl e Encounter Details Date Type Department Care Team (Late st Contact Info) Description 12/22/2018 Transcribed Document [facility] [place] Family Medicine [address] [place] [address] ProviderAgnieszka MD [address], [place] [id number] Social History Tobacco Use Types Packs/Day Years Used Date Smoking Tobacco: Never Assessed Sex and Gender Information Value Date Recorded Sex Assigned at Not on file Legal Sex Male 2:38 PM CDT Gender Identity Not on file Sexual Orientation Not on file documented as of this encounter Miscellaneous Notes * Cerner Conversion Note - Historical ProviderMD - 12/22/2018 1:14 PM CDT [facility] Main OR Preop Summary Primary Physician: HEIDE KAT MD-SNU Finalized Date/Time: 12/22/18 15:35:45 Pt. Name: SIMBA MAYEN JR/Sex: 1950 Male Med Rec #: [id number] Physician: HEIDE AKT MD-DIVYA Financial #: [id number] Pt. Type: I Room/Bed: ASA/3 Admit/Disch: 12/22/18 06:36:00 - Institution: [facility] PreOp Case Times Entry 1 In Preop 12/22/18 07:58:00 Ready for Holding n/a Room Patient Ready for 12/22/18 10:27:00 Surgery Patient Out of Preop 12/22/18 12:34:00 Patient Out of n/a Holding Room Last Modified By: GIANLUCA HERRON RN 12/22/18 15:35:43 [facility] PreOp Case Times Audit 12/22/18 15:35:43 Mines Inspector: GIANLUCAMICHELEOFELIA Modifier: EVELYN <+> 1 Patient Out of Preop Finalized By: GIANLUCA HERRON, RN Document Signatures Signed By: GIANLUCA HERRON RN 12/22/18 15:35 documented in this encounter Plan of Treatment Not on file documented as of this encounter Visit Diagnoses Not on filedocumented in this encounter
--- OUTSIDE RECORDS SUMMARY | 2025-03-24 12:25 | XMS_ITS | Encounter Summary ---
Author Organization [employer] ([place], [place], [place], [place]) Address [address] [place] [address] Care Team Providers Care Rivet Tosser Name Role Phone Unavailable Primary Care Provider Unavailabl e Encounter Details Date Type Department Care Team (Late st Contact Info) Description 11/07/2019 Transcribed Document [facility] [place] [address] [place] [address] ProviderAgnieszka MD [address] [place], [place] [address] Social History Tobacco Use Types Packs/Day Years [...]
--- OUTSIDE RECORDS SUMMARY | 2025-03-24 12:25 | XMS_ITS | Encounter Summary ---
Author Organization [employer] ([place], [place], [place], [place]) Address [address] [place] [address] Care Team Providers Care Campus Aide Name Role Phone Unavailable Primary Care Provider Unavailabl e Encounter Details Date Type Department Care Team (Late st Contact Info) Description 12/23/2018 Transcribed Document [facility] [place] [facility] [place] [address] ProviderAgnieszka MD [address] [place] [address] Social History Tobacco Use Types [...]
--- OUTSIDE RECORDS SUMMARY | 2025-03-24 12:25 | XMS_ITS | Encounter Summary ---
Author Organization [employer] ([place], [place], [place], [place]) Address [address] [place] [address] Care Team Providers Care Carton Waxing Machine Operator Name Role Phone Unavailable Primary Care Provider Unavailabl e Encounter Details Date Type Department Care Team (Late st Contact Info) Description 11/02/[address] [facility] [place] Family [place] [facility] [place] [address] ProviderAgnieszka MD [address], [place] [phone] Social History Tobacco Use Types Packs/Day Years [...] [place] Emergency Contact #2 Phone Number : [phone] Emergency Contact #2 Relationship : Mother Chief Complaint : presents w/ lower and upper back spasms x 3-4 days Information Obtained From : Patient Primary Language : Uzbek Communication Barrier : None Joyce Melendez RN [...] Scale Risk Level : 25-45 Medium Risk [place] Fall Interventions : Adequate lighting, Assistive devices [...] Source : Stated Height Entry Format : [place] Height, Feet : 5 ft(Converted to: 152 cm, 60 Inch) Height, Inches : 9 Inch(Converted to: 0 ft 9 Inch, 22.86 cm) Clinical Height : 175.26 cm Weight Source : Standing scale Weight Entry Format : [place] Clinical Dosing Weight : 81.08 kg Weight, Pounds : 178 lb Weight, Ounces : 6 oz Body Surface Area (BSA) : 1.97 m2 Body Mass Index : 26.4 kg/m2 (HI) [place] Body Weight : 70 kg Joyce Melendez [...] Joyce Melendez RN - 11/02/2019 3:36 EDT [place] Suicide Severity Rating Scale (C-SSRS) CSSRS Past [...]
--- OUTSIDE RECORDS SUMMARY | 2025-03-24 12:25 | XMS_ITS | Encounter Summary ---
Author Organization [employer] ([place], [place], [place], [place]) Address [address] [place] [address] Care Team Providers Care Ux Developer Designer Name Role Phone Unavailable Primary Care Provider Unavailabl e Encounter Details Date Type Department Care Team (Late st Contact Info) Description 11/07/2019 Transcribed Document [facility] [place] [address] [place] [address] ProviderAgnieszka MD [address], [place] [address] Social History Tobacco Use Types Packs/Day Years [...]
--- OUTSIDE RECORDS SUMMARY | 2025-03-24 12:25 | XMS_ITS | Encounter Summary ---
Author Organization [employer] ([place], [place], [place], [place]) Address [address] [place] [address] Care Team Providers Care Global Engineering Manager Name Role Phone Unavailable Primary Care Provider Unavailabl e Encounter Details Date Type Department Care Team (Late st Contact Info) Description 11/03/2019 Transcribed Document [facility] [place] Family Medicine [address] [place] [address] ProviderAgnieszka MD [address], [place] [phone] Social History Tobacco Use Types Packs/Day Years [...] JESSICA ROSENBAUM OTR/L - 11/04/2019 13:16 EDT Skilled Nursing Goals, OT Grooming LTG [...] 153/102 last reading in supine. Taken by MANAGER BRAND. 144/103 seated EOB. Pt left up in [...]
--- OUTSIDE RECORDS SUMMARY | 2025-03-24 12:25 | XMS_ITS | Encounter Summary ---
Author Organization [employer] ([place], [place], [place], [place]) Address [address] [place] [address] Care Team Providers Care Sales Representative Name Role Phone Unavailable Primary Care Provider Unavailabl e Encounter Details Date Type Department Care Team (Late st Contact Info) Description 11/07/2019 Transcribed Document [facility] [place] [address] [place] [address] ProviderAgnieszka MD [address] [place], [place] [id number] Social History Tobacco Use Types Packs/Day Years Used Date Smoking Tobacco: Never Assessed Sex and Gender Information Value Date Recorded Sex Assigned at Not on file Legal Sex Male 2:38 PM CDT Gender Identity Not on file Sexual Orientation Not on file documented as of this encounter Miscellaneous Notes * Cerner Conversion Note - Historical ProviderMD - 11/07/2019 2:00 AM CDT Boilers Inspector Details Entered On: 11/07/2019 5:13 EDT Performed [...]
--- OUTSIDE RECORDS SUMMARY | 2025-03-24 12:25 | XMS_ITS | Encounter Summary ---
Author Organization [employer] ([place], [place], [place], [place]) Address [address] [place] [address] Care Team Providers Care Video Editor Name Role Phone Unavailable Primary Care Provider Unavailabl e Encounter Details Date Type Department Care Team (Late st Contact Info) Description 12/23/2018 Transcribed Document [facility] [place] [facility] [place] [address] ProviderAgnieszka MD [address] [place] [address] Social History Tobacco Use Types [...] : 12/22/2018 06:36 Co-treated by, OT : physical therapist assistant (CANOE BUILDER) Personal Devices : Personal Devices No Devices [...] MARY MULLER OTR/Lc - 12/24/2018 15:34 EDT Snf Goals, OT Grooming LTG Grid [...] or set up Equipment : Long Handled Project Development Director, Sock aid, Long handled shoehorn Date to [...] Goal Status : Initial goal Initial goal AMRY MULLER OTR/Lc - 12/24/2018 15:34 EDT MARY [...] MARY MULLER OTR/Lc - 12/24/2018 15:34 EDT [place] OT Charges OT Selfcare/Hm Mgmt Ea 15 Min : 2 MARY MULLER OTR/Lc - 12/24/2018 15:34 EDT documented in this encounter Plan of Treatment Not on file documented as of this encounter Visit Diagnoses Not on filedocumented in this encounter
--- OUTSIDE RECORDS SUMMARY | 2025-03-24 12:25 | XMS_ITS | Encounter Summary ---
Author Organization [employer] ([place], [place], [place], [place]) Address [address] [place] [address] Care Team Providers Care Assembly Line Machine Operator Name Role Phone Unavailable Primary Care Provider Unavailabl e Encounter Details Date Type Department Care Team (Late st Contact Info) Description 11/07/2019 Transcribed Document [facility] [place] Family Medicine [address] [place] [address] ProviderAgnieszka MD [address] [place], [place] [address] Social History Tobacco Use Types Packs/Day Years [...]
--- OUTSIDE RECORDS SUMMARY | 2025-03-24 12:25 | XMS_ITS | Encounter Summary ---
Author Organization [employer] ([place], [place], [place], [place]) Address [address] [place] [address] Care Team Providers Care Byproducts Operator Name Role Phone Unavailable Primary Care Provider Unavailabl e Encounter Details Date Type Department Care Team (Late st Contact Info) Description 12/22/2018 Transcribed Document [facility] [place] [facility] [place] [address] ProviderAgnieszka MD [address], [place] [id number] Social History Tobacco Use Types Packs/Day Years [...] #2 Relationship : , Primary Language : British Communication Barrier : None Melissa Alexander RN [...] Scale Risk Level : 25-45 Medium Risk [place] Fall Interventions : Adequate lighting, Assistive devices [...] Source : Measured Height Entry Format : [place] Height, Feet : 5 ft(Converted to: 152 cm, 60 Inch) Height, Inches : 9 Inch(Converted to: 0 ft 9 Inch, 22.86 cm) Clinical Height : 175.26 cm Weight Source : Standing scale Weight Entry Format : [place] Clinical Dosing Weight : 84.55 kg Weight, Pounds : 186 lb Body Surface Area (BSA) : 2 m2 Body Mass Index : 27.5 kg/m2 (HI) [place] Body Weight : 70 kg Melissa Alexander [...]
--- OUTSIDE RECORDS SUMMARY | 2025-03-24 12:25 | XMS_ITS | Encounter Summary ---
Author Organization [employer] ([place], [place], [place], [place]) Address [address] [place] [address] Care Team Providers Care Corporate Treasurer Name Role Phone Unavailable Primary Care Provider Unavailabl e Encounter Details Date Type Department Care Team (Late st Contact Info) Description 11/03/2019 Transcribed Document [facility] [place] Family Medicine [facility] [place] [address] ProviderAgnieszka MD [address] [place] [place], [place] [phone] Social History Tobacco Use Types Packs/Day Years [...] Associated Diagnoses: None Author: BROOKS GORE, [facility] 69yoM with Low Back Pain - R/O [...]
--- OUTSIDE RECORDS SUMMARY | 2025-03-24 12:25 | XMS_ITS | Encounter Summary ---
Author Organization [employer] ([place], [place], [place], [place]) Address [address] [place] [address] Care Team Providers Care Regional Sales Representative Name Role Phone Unavailable Primary Care Provider Unavailabl e Encounter Details Date Type Department Care Team (Late st Contact Info) Description 11/06/2019 Transcribed Document [facility] [place] [address] [place] [address] ProviderAgnieszka MD [address], [place] [id number] Social History Tobacco Use Types Packs/Day Years Used Date Smoking Tobacco: Never Assessed Sex and Gender Information Value Date Recorded Sex Assigned at Not on file Legal Sex Male 2:38 PM CDT Gender Identity Not on file Sexual Orientation Not on file documented as of this encounter Miscellaneous Notes * Cerner Conversion Note - Agnieszka ProviderMD - 11/06/2019 1:02 PM CDT [facility] Main OR IntraOp Summary Primary Physician: HEIDE KAT MD-SNU Finalized Date/Time: 11/07/19 12:14:47 Pt. Name: EILEEN MAYEN JR/Sex: 1950 Male Med Rec #: [id number] Physician: LORENA SAGASTUME MD-INT Financial #: [id number] Pt. Type: I Room/Bed: [facility] Admit/Disch: 11/02/19 02:59:00 - Institution: [facility] IntraOp Case Attendance Entry 1 Entry 2 [...] Case Attendee ANNABELLE ELDER, RN ZEINAB CABRERA, NUT PACKER Role Performed Hosiery Pairer, First Scrub, First Time In 11/06/19 12:39:00 11/06/19 12:39:00 Time Out 11/06/19 14:40:00 11/06/19 14:40:00 Procedure Thoracic Laminectomy Thoracic Laminectomy Other Attendee Superficial Wound Closed By: Last Modified By: ANNABELLE ELDER RN SMITH, MYRIAH L., RN 11/06/19 14:39:34 11/06/19 14:39:34 [facility] IntraOp Case Attendance Audit 11/06/19 14:39:34 Brake Press Operator: ISIAH Modifier: SMITHML 1 <+> Time Out 1 <*> Procedure Thoracic Laminectomy 2 <*> Procedure Thoracic Laminectomy 3 <+> Time Out 3 <*> Procedure Thoracic Laminectomy 4 <+> Time Out 4 <*> Procedure Thoracic Laminectomy 5 <+> Time Out 5 <*> Procedure Thoracic Laminectomy 11/06/19 14:28:47 Brake Press Operator: ISIAH Modifier: SMITHML <+> 1 Procedure <+> 2 Procedure <+> 3 Procedure <+> 4 Procedure <+> 5 Procedure 11/06/19 14:28:11 Brake Press Operator: ISIAH Modifier: SMITHML 2 <+> Time In 2 <-> Procedure Lumbar Fusion Posterior 3 <-> Procedure Lumbar Fusion Posterior 4 <+> Time In 4 <-> Procedure Lumbar Fusion Posterior 5 <+> Time In 5 <-> Procedure Lumbar Fusion Posterior [facility] IntraOp Case Times Entry 1 Patient In Room Time 11/06/19 12:39:00 Out Room Time 11/06/19 14:40:00 Anesthesia Start Time 11/06/19 12:39:00 Stop Time 11/06/19 14:40:00 Surgery / Procedure Times Start Time 11/06/19 13:02:00 Stop Time 11/06/19 14:15:00 Last Modified By: ANNABELLE ELDER RN 11/06/19 14:39:04 [facility] IntraOp Case Times Audit 11/06/19 14:39:04 Brake Press Operator: SMITHML Modifier: SMITHML <+> 1 Out Room Time <+> 1 Stop Time 11/06/19 14:27:07 Brake Press Operator: SMITHML Modifier: SMITHML <+> 1 Stop Time 11/06/19 13:02:31 Brake Press Operator: SMITHML Modifier: SMITHML <+> 1 Start Time [facility] IntraOp Cautery Entry 1 Entry 2 ESU Identification Cautery Type Monopolar ESU BiPolar ESU Cautery Type Comments ID Number [id number] ID Type Hospital Number Hospital Number Cautery [...] MYRIAH L., RN 11/06/19 13:08:54 11/06/19 13:08:54 [facility] IntraOp Communication Entry 1 Communication To Family/Significant other Comment spoke to family preoperatively Communication By ANNABELLE ELDER RN Date and Time 11/06/19 13:04:00 Last Modified By: ANNABELLE ELDER RN 11/06/19 13:04:26 [facility] IntraOp Counts Verification Entry 1 Procedure Thoracic Laminectomy Count Info Count Type Sponge, Sharps, Miscellaneous Counts Verification Baseline/pre-procedure Sequence Count Results Not Applicable Counts Performed By Count Performed By ZEINAB CABRERA, NUT PACKER (Scrub) Count Performed By ANNABELLE ELDER RN (RN) Last Modified By: ANNABELLE ELDER RN 11/06/19 14:28:48 [facility] IntraOp Counts Verification Audit 11/06/19 14:28:48 Brake Press Operator: ISIAH Modifier: SMITHML <+> 1 Procedure 11/06/19 14:28:12 Brake Press Operator: SMITHML Modifier: SMITHML 1 <-> Procedure Lumbar Fusion Posterior [facility] IntraOp Counts Final Entry 1 Procedure Thoracic Laminectomy Final Count Info Count Type Sponge, Sharps, Miscellaneous Counts Verification Skin Closure/end of Sequence procedure Count Results Correct, surgeon notified Counts Performed By Count Performed By ZEINAB CABRERA NUT PACKER (Scrub) Count Performed By ANNABELLE ELDER RN (RN) Last Modified By: ANNABELLE ELDER RN 11/06/19 14:28:49 [facility] IntraOp Counts Final Audit 11/06/19 14:28:49 Brake Press Operator: SMITHML Modifier: SMITHML <+> 1 Procedure 11/06/19 14:28:13 Brake Press Operator: ISIAH Modifier: SMITHML 1 <-> Procedure Lumbar Fusion Posterior [facility] IntraOp Cultures and Spec Summary Entry 1 Cultrures and Specimens Specimen Ordered: Yes Test(s) Culture(s)/Microbiology Requested/Final Disposition Last Modified By: ANNABELLE ELDER RN 11/06/19 13:12:47 General Comments: surgical swabs tissue for culture [facility] IntraOp Departure from OR Entry 1 Integumentary Assessment Integumentary WDL with patient Assessment WDL specific variances Patient's Normal incision Integumentary Variance(s) Transfer/Handoff Transfer to PACU Phase I Handoff Method Bedside/Face to face, Phone call Post-op Transport Stretcher/Gurney Via Patient Transport URIEL MATOS MD-ANS, Accompanied by ANNABELLE ELDER RN Last Modified By: ANNABELLE ELDER RN 11/06/19 13:12:37 [facility] IntraOp Dressing and Packing Entry 1 Type Dressing Location back Wound Dressing Item Occlusive dressing Applied By HEIDE KAT MD-SNU Other Comments neosporin Last Modified By: ANNABELLE ELDER RN 11/06/19 13:12:13 [facility] IntraOp Fire Risk Assessment Entry 1 Fire [...] Modified By: ANNABELLE ELDER RN 11/06/19 13:05:27 [facility] IntraOp General Case Child Psychologist 1 Case Information OR OR [facility] Case Level 1 Room Verified Yes Wound Class I - Clean Specialty SN Neurosurgery Anesthesia Type General ASA Class 3E Diagnosis Preop Diagnosis thoracic epidural hematoma Postop Same As Preop No Postop Diagnosis see drs post op notes Last Modified By: ANNABELLE ELDER RN 11/06/19 13:05:13 [facility] IntraOp Intraoperative Assessment Entry 1 Handoff Method [...] Modified By: ANNABELLE ELDER RN 11/06/19 13:07:57 [facility] IntraOp Intraoperative Equipment Entry 1 Type Equipment Equipment Equipment Lithotripsy Machine ID Number [id number] Intraop Monitoring Antiembolic Devices Antiembolic Devices Sequential compression device, knee high Antiembolic Device Bilateral Location Antiembolic Device [id number] ID Number Scopes Photo/Video Documentation Last Modified By: ANNABELLE ELDER RN 11/06/19 13:08:16 [facility] IntraOp Medication Admin Entry 1 Entry 2 Entry 3 Medication/Irrigant Bacitracin 50,00units lidocaine 1% w/ Marcaine 0.25% 30ml powder vial epinephrine 1:100,000 vial - [id number] 30ml vial - [id number] Combo Med List Time Administered Route of irrigation local local Administration Dose Dose 92923 10 20 Unit of Measure units ml [...] SPNG SURGFOAM Neosporin 15Gm ointment thrombin 5000units [id number] - [id number] topical powder - [id number] Combo Med List 1 - Combo Med [...] Entry 7 Medication/Irrigant vancomycin 1Gm vial - [id number] Combo Med List Time Administered Route of topical Administration Dose Dose 1 Unit of Measure gram Volume Administered By HEIDE KAT MD-SNLanie Procedure Irrigation Irrigant Volume In Irrigant Volume Out Last Modified By: ANNABELLE ELDER RN 11/06/19 13:11:50 [facility] IntraOp Patient Positioning Entry 1 Procedure Thoracic [...] Modified By: ANNABELLE ELDER RN 11/06/19 14:28:48 [facility] IntraOp Patient Positioning Audit 11/06/19 14:28:48 Brake Press Operator: ISIAH Modifier: ISIAH <+> 1 Procedure 11/06/19 14:28:12 Brake Press Operator: ISIAH Modifier: ISIAH 1 <-> Procedure Lumbar Fusion Posterior [facility] IntraOp Sign In Entry 1 Patient, Site, [...] Modified By: ANNABELLE ELDER RN 11/06/19 13:04:05 [facility] Intra[facility] Sign Out Entry 1 RN Confirmation [...] Modified By: ANNABELLE ELDER RN 11/06/19 14:39:33 [facility] IntraOp Skin Prep Entry 1 Procedure Thoracic Laminectomy Prescribed N/A Pre-Surgical Prep Completed Prep Area back Intraop Prep Integumentary WDL with patient Assessment WDL specific variances WDL Patient gilson and drain in Exceptions place Prep Agents Alcohol, Chloraprep, Chlorhexadine gluconate Prep by HEIDE KAT MD-SNU Hair Removal Methods No hair removal performed Last Modified By: ANNABELLE ELDER RN 11/06/19 14:28:49 [facility] IntraOp Skin Prep Audit 11/06/19 14:28:49 Brake Press Operator: ISIAH Modifier: SMITHML <+> 1 Procedure 11/06/19 14:28:12 Brake Press Operator: ISIAH Modifier: SMITHML 1 <-> Procedure Lumbar Fusion Posterior [facility] IntraOp Surgical Procedures Entry 1 Procedure Thoracic Laminectomy Additional thoracic laminectomy, Procedure I&D Description Primary Procedure Yes Primary Surgeon HEIDE KAT MD-SNU Start 11/06/19 13:02:00 Stop 11/06/19 14:15:00 Anesthesia Type General Specialty SN Neurosurgery Wound Class I - Clean Last Modified By: ANNABELLE ELDER RN 11/06/19 14:28:41 [facility] IntraOp Temp Regulation Devices Entry 1 Temp Regulation Temperature Forced Air Warming Regulation Device device, Room temperature, Warm blankets Temperature Upper body, Lower body Regulation Site Temperature URIEL MATOS MD-ANS Regulation Device Applied by Last Modified By: ANNABELLE ELDER RN 11/06/19 13:20:01 [facility] IntraOP Time Out Entry 1 Procedure to [...] Modified By: ANNABELLE ELDER RN 11/06/19 14:28:49 [facility] IntraOP Time Out Audit 11/06/19 14:28:49 Brake Press Operator: ISIAH Modifier: SMITHML <+> 1 Procedure to be Performed 11/06/19 14:28:13 Brake Press Operator: ISIAH Modifier: SMITHML 1 <-> Procedure [...]
--- OUTSIDE RECORDS SUMMARY | 2025-03-24 12:25 | XMS_ITS | Encounter Summary ---
Author Organization [employer] ([place], [place], [place], [place]) Address [address] [place] [address] Care Team Providers Care Journeyman Machinist Name Role Phone Unavailable Primary Care Provider Unavailabl e Encounter Details Date Type Department Care Team (Late st Contact Info) Description 11/03/2019 Transcribed Document [facility] [place] Family Medicine [address] [place] [address] ProviderAgnieszka MD [address], [place] [phone] Social History Tobacco Use Types Packs/Day Years [...] Insurance 1 Health Plan: MEDICARE Policy Number: [id number] Authorization Number: Insurance 2 Health Plan: FOR LIFE Policy Number: [id number] Authorization Number: Insurance Primary Name : MEDICARE Policy Number: [id number] Authorized Service Begin Date-Primary : 11/02/2019 EDT Historical Authorization Comments-Primary : No Authorization Comments Found SIMÓN MUSA RN - 11/03/2019 12:44 EDT documented in this encounter Plan of Treatment Not on file documented as of this encounter Visit Diagnoses Not on filedocumented in this encounter
--- OUTSIDE RECORDS SUMMARY | 2025-03-24 12:25 | XMS_ITS | Encounter Summary ---
Author Organization [employer] ([place], [place], [place], [place]) Address [address] [place] [address] Care Team Providers Care Silverware Cleaner Name Role Phone Unavailable Primary Care Provider Unavailabl e Encounter Details Date Type Department Care Team (Late st Contact Info) Description 11/03/2019 Transcribed Document [facility] [place] Family Medicine [address] [place] [address] ProviderAgnieszka MD [address], [place] [id number] Social History Tobacco Use Types Packs/Day Years Used Date Smoking Tobacco: Never Assessed Sex and Gender Information Value Date Recorded Sex Assigned at Not on file Legal Sex Male 2:38 PM CDT Gender Identity Not on file Sexual Orientation Not on file documented as of this encounter Miscellaneous Notes * Cerner Conversion Note - Historical ProviderMD - 11/03/2019 2:00 AM CDT Flex O Writer Operator Details Entered On: 11/03/2019 0:41 EDT Performed [...]
--- OUTSIDE RECORDS SUMMARY | 2025-03-24 12:25 | XMS_ITS | Encounter Summary ---
Author Organization [employer] ([place], [place], [place], [place]) Address [address] [place] [address] Care Team Providers Care Course Developer Name Role Phone Unavailable Primary Care Provider Unavailabl e Encounter Details Date Type Department Care Team (Late st Contact Info) Description 12/23/2018 Transcribed Document [facility] [place] Family Medicine [address] [place] [address] ProviderAgnieszka MD [address] [place] [address] Social History Tobacco Use Types [...] RWx; amb with back brace on OSMANI RAIENY PTA 12/24/2018 14:59 EDT Cognitive Treatment, PT [...] BRIGID KARLEY KEEN - 12/24/2018 14:59 EDT Molecular Geneticist Goals Mobility/Bed Mobility LTG PT Grid Goal [...] OSMANI RAINEY PTA - 12/24/2018 14:59 EDT [place] PT Charges PT Therap. Exercise 15 min : 1 PT Ther Activities Ea 15 Min : 1 OSMANI RAINEY PTA - 12/24/2018 14:59 EDT documented in this encounter Plan of Treatment Not on file documented as of this encounter Visit Diagnoses Not on filedocumented in this encounter
--- OUTSIDE RECORDS SUMMARY | 2025-03-24 12:25 | XMS_ITS | Encounter Summary ---
Author Organization [employer] ([place], [place], [place], [place]) Address [address] [place] [address] Care Team Providers Care Petroleum Sampler Name Role Phone Unavailable Primary Care Provider Unavailabl e Encounter Details Date Type Department Care Team (Late st Contact Info) Description 11/07/[address] [facility] [place] Family Medicine [address] [place] [address] ProviderAgnieszka MD [address], [place] [phone] Social History Tobacco Use Types Packs/Day Years [...]
--- OUTSIDE RECORDS SUMMARY | 2025-03-24 12:25 | XMS_ITS | Encounter Summary ---
Author Organization [employer] ([place], [place], [place], [place]) Address [address] [place] [address] Care Team Providers Care Retail Advisor Name Role Phone Unavailable Primary Care Provider Unavailabl e Encounter Details Date Type Department Care Team (Late st Contact Info) Description 11/07/2019 Transcribed Document [facility] [facility] [place] [address] [place] [address] ProviderAgnieszka MD [address], [place] [address] Social History Tobacco Use Types Packs/Day Years [...] Zee Taylor RN - 11/07/2019 17:46 EDT Electronically signed by Gay [facility] Conversion Manufacturing Automation Engineer Cerner at 11/12/2022 9:34 PM CDT documented in this encounter Plan of Treatment Not on file documented as of this encounter Visit Diagnoses Not on filedocumented in this encounter
--- OUTSIDE RECORDS SUMMARY | 2025-03-24 12:25 | XMS_ITS | Encounter Summary ---
Author Organization [employer] ([place], [place], [place], [place]) Address [address] [place] [address] Care Team Providers Care Digital Manager Name Role Phone Unavailable Primary Care Provider Unavailabl e Encounter Details Date Type Department Care Team (Late st Contact Info) Description 11/07/2019 Transcribed Document [facility] Radiology [address] [place] [address] Carlo Evans MD [address] [place], [place] [phone] Social History Tobacco Use Types Packs/Day Years [...] pain, and dysuria. ID and NSY following. 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 Vital Signs T: 37.2 [...] acute distress]. Neurologic: [CN I-XII intact, Equal electroencephalograph technician strength bilaterally, no movement or feeling in [...] Vanc, PICC ordered 11/04 in prep for director long term care abx -Patient hemodynamically stable, afebrile though low [...] Diagnostic Results Radiology Results (Last 48 hours) [id number] -- 11/02/2019 02:59 MRI Spine Thoracic WO [...] Lymph # 1.76 x10(3)/uL 11/07/2019 04:00 EDT [place] % 14.8 % (High) 11/07/2019 04:00 EDT [place] # 1.07 K/uL (High) 11/07/2019 04:00 EDT [...]
--- OUTSIDE RECORDS SUMMARY | 2025-03-24 12:25 | XMS_ITS | Encounter Summary ---
Author Organization [employer] ([place], [place], [place], [place]) Address [address] [place] [address] Care Team Providers Care Online Affiliate Marketing Manager Name Role Phone Unavailable Primary Care Provider Unavaillora e Encounter Details Date Type Department Care Team (Late st Contact Info) Description 12/22/2018 Transcribed Document [facility] [place] Family Medicine [facility] [place] [address] ProviderAgnieszka MD [address] [place] [address] Social History Tobacco Use Types [...] 68 yo male who was admitted to [facility] on 12/22 for radiculopathy. s/p L2-S1 [...] CHRISSIE FALK OTR/L - 12/23/2018 11:03 EDT Skilled Nursing Goals, OT Grooming LTG [...] or set up Equipment : Long Handled Shower Screen Installer, Sock aid, Long handled shoehorn Date to [...]
--- OUTSIDE RECORDS SUMMARY | 2025-03-24 12:25 | XMS_ITS | Encounter Summary ---
Author Organization [employer] ([place], [place], [place], [place]) Address [address] [place] [address] Care Team Providers Care Forest Fire Fighter Name Role Phone Unavailable Primary Care Provider Unavailabl e Encounter Details Date Type Department Care Team (Late st Contact Info) Description 11/02/2019 Transcribed Document [facility] Family Medicine [address] [place] [address] ProviderAgnieszka MD [address], [place] [address] Social History Tobacco Use Types Packs/Day Years [...] On: 11/02/2019 12:45 EDT by ELKE VELÁZQUEZ Magazine Writer-Histologist Technologist Initial Assessment I Previously Documented Living Environment : No qualifying data available. Living Situation : Home Patient Lives With : Spouse Is the Patient a Caregiver at Home? : No Employment/Vocation : Retired Emergency Contact #1 : Marlys Mason Emergency Contact #1 Emergency Contact #1 Relationship : Emergency Contact #2 : Lexii Mason Emergency Contact #2 Phone Number : [phone] Emergency Contact #2 Relationship : Mother Enter Doctors Name : Dr. Faustino Jones Does Patient have PCP Listed? : Yes Legal Guardian : No Is Guardianship Needed : No ELKE VELÁZQUEZ Magazine Writer-Histologist Technologist - 11/02/2019 12:45 EDT Initial Assessment II Sensory and Motor Deficits : Other: Parkinson's Current Home Treatments and Equipment : None ELKE VELÁZQUEZ Magazine Writer-Histologist Technologist - 11/02/2019 12:45 EDT Discharge Needs I Anticipated Discharge To, CM : Home independently Current Home Treatment/Equipment : Current Home Treatment/Equipment No qualifying data available. Post Acute/Home Treatments : None Documentation Status Complete : Yes ELKE VELÁZQUEZ Magazine Writer-Histologist Technologist - 11/02/2019 12:45 EDT Discharge Needs II Professional Skilled Services : Professional Skilled Services No qualifying data available. Needs Assistance with Transportation : No Discharge Options Discussed with Patient : Acute rehabilitation, Discharge transportation, DME, Home Health, Short term rehabilitation ELKE VELÁZQUEZ Magazine Writer-Histologist Technologist - 11/02/2019 12:45 EDT Narrative Note Narrative Note : Patient is a low readmission risk of 34. Patient reported that he has HH in the past through [facility]. Patient reported that he has also been to [facility] in the past. Both of these services were last November. Patient stated that he is ADL independent. He stated that his can transport him home. Patient denied expecting to need any services at discharge. CM will continue to follow. ELKE VELÁZQUEZ Magazine Writer-Histologist Technologist - 11/02/2019 12:45 EDT documented in this encounter Plan of Treatment Not on file documented as of this encounter Visit Diagnoses Not on filedocumented in this encounter
--- OUTSIDE RECORDS SUMMARY | 2025-03-24 12:25 | XMS_ITS | Encounter Summary ---
Author Organization [employer] ([place], [place], [place], [place]) Address [address] [place] [address] Care Team Providers Care Transitional Kindergarten Teacher Name Role Phone Unavailable Primary Care Provider Unavailabl e Encounter Details Date Type Department Care Team (Late st Contact Info) Description 11/06/2019 Transcribed Document [facility] [facility] [place] [address] [place] [address] ProviderAgnieszka MD [address], [place] [phone] Social History Tobacco Use Types Packs/Day Years [...]
--- OUTSIDE RECORDS SUMMARY | 2025-03-24 12:25 | XMS_ITS | Encounter Summary ---
Author Organization [employer] ([place], [place], [place], [place]) Address [address] [place] [address] Care Team Providers Care Clothing Examiner Name Role Phone Unavailable Primary Care Provider Unavailabl e Encounter Details Date Type Department Care Team (Late st Contact Info) Description 11/07/2019 Transcribed Document [facility] [place] Family Medicine [facility] [place] [address] ProviderAgnieszka MD [address], [place] [address] Social History Tobacco Use Types Packs/Day Years [...] mL: 2 Gram, 200 mL/Hr, IV Piggyback, [id number] docusate sodium: 200 mg, Oral, BID hydrALAZINE: [...] mL: 1,250 mg, 250 mL/Hr, IV Piggyback, [id number] Pending Complete fentaNYL: 25 mcg, IV Push, Q10Min Documented Medications Documented Azilect 1 mg oral tablet: 1 Tab, Oral, Daily, 30 Tab, 0 Refill(s) Remicade: 10 mg/kg, IntraVENous, [id number], for Ulcerative Colitis; Last dose: 09/29/2019, 0 [...] *MBP* 100 mL 2 Gram, IV Piggyback, [id number] docusate sodium 100 mg cap 200 mg 2 Cap, Oral, BID lactobacillus acidophilus cap 1 Cap, Oral, Daily rasagiline 1 mg tab 1 mg 1 Tab, Oral, Daily vancomycin + NaCl 0.9% 250 mL 1,250 mg, IV Piggyback, [id number] Continuous: (1) lactated ringers 1,000 mL 1,000 [...] All Problems Parkinson disease / SNOMED CT 50531365 / Confirmed Scoliosis / SNOMED CT 346186354 / Confirmed Colitis / SNOMED CT 0160880313 / Confirmed Arthritis / SNOMED CT 6601551 / Confirmed 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 Alyssa DONATO DC Electronically signed by [facility] Conversion Qa Tech Cerner at 11/12/2022 9:35 PM CDT documented in this encounter Plan of Treatment Not on file documented as of this encounter Visit Diagnoses Not on filedocumented in this encounter
--- OUTSIDE RECORDS SUMMARY | 2025-03-24 12:25 | XMS_ITS | Encounter Summary ---
Author Organization [employer] ([place], [place], [place], [place]) Address [address] [place] [address] Care Team Providers Care Brewery Technician Name Role Phone Unavailable Primary Care Provider Unavailabl e Encounter Details Date Type Department Care Team (Late st Contact Info) Description 11/07/2019 Transcribed Document [facility] Neurology - [address] [facility] [address] [place] [address] Heide Akers MD [address] [facility] [address] [place] [id number] Social History Tobacco Use Types Packs/Day Years [...]
--- OUTSIDE RECORDS SUMMARY | 2025-03-24 12:25 | XMS_ITS | Encounter Summary ---
Author Organization [employer] ([place], [place], [place], [place]) Address [address] [place] [address] Care Team Providers Care Public Health Officer Name Role Phone Unavailable Primary Care Provider Unavailabl e Encounter Details Date Type Department Care Team (Late st Contact Info) Description 11/03/2019 Transcribed Document [facility] [place] [address] [place] [address] ProviderAgnieszka MD [address] [place], [place] [address] Social History Tobacco Use Types Packs/Day Years [...]
--- OUTSIDE RECORDS SUMMARY | 2025-03-24 12:25 | XMS_ITS | Encounter Summary ---
Author Organization [employer] ([place], [place], [place], [place]) Address [address] [place] [address] Care Team Providers Care Side Stapler Name Role Phone Unavailable Primary Care Provider Unavailabl e Encounter Details Date Type Department Care Team (Late st Contact Info) Description 11/03/2019 Transcribed Document [facility] [place] Family Medicine [address] [place] [address] ProviderAgnieszka MD [address] [place] [address] Social History Tobacco Use Types [...] 11/04/2019 12:30 EDT Assisted by, PT : time study technician/aide LILA PIERCE, PT - 11/04/2019 11:21 [...] LILA PIERCE, PT - 11/04/2019 12:30 EDT Senior Living Goals Mobility/Bed Mobility LTG PT Grid Goal [...] EDT Electronically signed by Gay Centeno Conversion Dimension Stone Quarry Supervisor Cerner at 11/12/2022 9:45 PM CDT documented in this encounter Plan of Treatment Not on file documented as of this encounter Visit Diagnoses Not on filedocumented in this encounter
--- OUTSIDE RECORDS SUMMARY | 2025-03-24 12:25 | XMS_ITS | Encounter Summary ---
Author Organization [employer] ([place], [place], [place], [place]) Address [address] [place] [address] Care Team Providers Care Security System Administrator Name Role Phone Unavailable Primary Care Provider Unavailabl e Encounter Details Date Type Department Care Team (Late st Contact Info) Description 11/07/2019 Transcribed Document [facility] [place] [facility] [place] [address] [place] [address] ProviderAgnieszka MD [address], [place] [address] Social History Tobacco Use Types Packs/Day Years [...] Zee Taylor RN - 11/07/2019 17:47 EDT Electronically signed by Gay Centeno Conversion Blocking Machine Operator Second Cerner at 11/12/2022 9:34 PM CDT documented in this encounter Plan of Treatment Not on file documented as of this encounter Visit Diagnoses Not on filedocumented in this encounter
--- OUTSIDE RECORDS SUMMARY | 2025-03-24 12:25 | XMS_ITS | Encounter Summary ---
Author Organization [employer] ([place], [place], [place], [place]) Address [address] [place] [address] Care Team Providers Care Pharmacy Student Name Role Phone Unavailable Primary Care Provider Unavailabl e Encounter Details Date Type Department Care Team (Late st Contact Info) Description 12/22/2018 Transcribed Document [facility] [place] Family Medicine [address] [place] [address] ProviderAgnieszka MD [address] [id number] Social History Tobacco Use Types Packs/Day Years [...] MAYEN JR/Sex: 1950 Male Med Rec #: [id number] Physician: HEIDE KAT MD-SNU Financial #: [id number] Pt. Type: I Room/Bed: [facility]/ Admit/Disch: 12/22/18 06:36:00 - Institution: [facility] IntraOp Case Attendance Entry 1 Entry 2 Entry 3 Case Attendee HEIDE KAT Burdine, Teresa A, Rn LONG, PAULA R. MD-SNU Role Performed Surgeon/Proceduralist, Blue Leather Setter, First Scrub, Second First Time In 12/22/18 [...] ANGELICA LANDAVERDE MD Role Performed Scrub, Second MARINE PAINTER/Nurse Traffic Ii Manager Anesthesiologist of Record Time In 12/22/18 12:37:00 [...] Jang, Lopez OTHER, ATTENDEE #1 Role Performed Blue Leather Setter, Second MARINE PAINTER/Nurse Traffic Ii Manager Vendor Time In 12/22/18 12:37:00 12/22/18 12:37:00 [...] 11 Entry 12 Case Attendee Nadia Valdivia, Grinder Operator External Tool Clifton Schroeder, Grinder Operator External Tool Delmi Andino [employer] Pref Card Builder Role Performed MARINE PAINTER/Nurse Traffic Ii Manager MARINE PAINTER/Nurse Traffic Ii Manager Scrub, First Time In 12/22/18 12:37:00 12/22/18 [...] A, ARCHIE Lincoln Role Performed Scrub, First Blue Leather Setter, First Scrub, First Time In 12/22/18 12:50:00 [...] VILLALPANDO PA-C Role Performed Scrub, First Physician nurse practitioner physicians assistant Time In 12/22/18 17:22:00 12/22/18 12:37:00 Time Out 12/22/18 18:08:00 12/22/18 18:08:00 Procedure Lumbar Fusion Posterior Lumbar Fusion Posterior 3 Level 3 Level Other Attendee Superficial Wound Closed By: Last Modified By: Monica Bustillos Rn Burdine, Teresa A, Rn 12/22/18 18:08:27 12/22/18 18:08:27 [facility] IntraOp Case Attendance Audit 12/22/18 18:08:44 Representative Phlebotomy Services: [id number] Modifier: [id number] <+> Role Performed 15 <*> Procedure Lumbar Fusion Posterior 3 Level 12/22/18 18:08:27 Representative Phlebotomy Services: [id number] Modifier: [id number] 1 <+> Time Out 1 <*> Procedure [...] Lumbar Fusion Posterior 3 Level 12/22/18 17:32:50 Representative Phlebotomy Services: [id number] Modifier: [id number] 1 <*> Procedure Lumbar Fusion Posterior 3 [...] Lumbar Fusion Posterior 3 Level 12/22/18 17:31:57 Representative Phlebotomy Services: [id number] Modifier: [id number] <+> 17 Case Attendee <+> 17 Role Performed <+> 17 Procedure 12/22/18 17:22:20 Representative Phlebotomy Services: [id number] Modifier: [id number] <+> Time Out 15 <*> Procedure Lumbar Fusion Posterior 3 Level <+> 16 Case Attendee <+> 16 Role Performed <+> 16 Time In <+> 16 Procedure 12/22/18 17:20:00 Representative Phlebotomy Services: [id number] Modifier: [id number] <+> 15 Case Attendee <+> 15 Time In <+> 15 Procedure 12/22/18 17:19:17 Representative Phlebotomy Services: [id number] Modifier: [id number] <+> Time Out 3 <*> Procedure Lumbar Fusion Posterior 3 Level 12 <+> Time Out 12 <*> Procedure Lumbar Fusion Posterior 3 Level 12/22/18 16:40:42 Representative Phlebotomy Services: [id number] Modifier: [id number] 2 <+> Time Out 2 <*> Procedure Lumbar Fusion Posterior 3 Level <+> 14 Case Attendee <+> 14 Role Performed <+> 14 Time In <+> 14 Procedure 12/22/18 15:28:44 Representative Phlebotomy Services: [id number] Modifier: [id number] <*> Procedure Lumbar Fusion Posterior 3 Level <+> 12 Case Attendee <+> 12 Role Performed <+> 12 Time In <+> 12 Procedure <+> 13 Case Attendee <+> 13 Role Performed <+> 13 Time In <+> 13 Time Out <+> 13 Procedure 12/22/18 15:09:00 Representative Phlebotomy Services: [id number] Modifier: [id number] <+> Time Out 11 <*> Procedure Lumbar Fusion Posterior 3 Level 12/22/18 15:08:31 Representative Phlebotomy Services: [id number] Modifier: [id number] <+> 10 Case Attendee <+> 10 Role Performed <+> 10 Time In <+> 10 Time Out <+> 10 Procedure <+> 11 Case Attendee <+> 11 Role Performed <+> 11 Time In <+> 11 Procedure <+> 11 Other Attendee 12/22/18 13:27:26 Representative Phlebotomy Services: [id number] Modifier: [id number] <+> 1 Procedure 2 <*> Procedure Lumbar [...] Lumbar Fusion Posterior 3 Level 12/22/18 13:25:52 Representative Phlebotomy Services: [id number] Modifier: [id number] <+> 1 Time In 2 <+> Time [...] CENTER IntraOp Case Times Audit 12/22/18 18:08:26 Representative Phlebotomy Services: [id number] Modifier: [id number] <+> 1 Out Room Time <+> 1 Stop Time <+> 1 Stop Time 12/22/18 13:14:12 Representative Phlebotomy Services: [id number] Modifier: [id number] <+> 1 Start Time [facility] IntraOp Cautery Entry 1 Entry 2 ESU Identification Cautery Type Monopolar ESU BiPolar ESU Cautery Type Comments ID Number [id number] ID Type Hospital Number Hospital Number Cautery [...] MEDICAL CENTER IntraOp Communication Audit 12/22/18 17:55:57 Representative Phlebotomy Services: [id number] Modifier: [id number] 1 <*> Communication By Monica Bustillos, Adelia [...] <*> Comment 5 <*> Comment 12/22/18 15:53:33 Representative Phlebotomy Services: [id number] Modifier: [id number] 3 <*> Communication By Monica Bustillos Rn 3 <*> Communication By Monica Bustillos Rn 3 <*> Date and Time 3 <*> Date and Time 3 <*> Communication To 3 <*> Communication To 3 <*> Comment 3 <*> Comment 12/22/18 14:56:30 Representative Phlebotomy Services: [id number] Modifier: [id number] 2 <*> Communication By Monica Bustillos, Rn [...] [facility] IntraOp Counts Final Audit 12/22/18 17:20:13 Representative Phlebotomy Services: [id number] Modifier: [id number] 1 <*> Procedure Lumbar Fusion Posterior 3 Level 1 <*> Count Performed By (Scrub) KENNY IGNACIO 12/22/18 17:17:55 Representative Phlebotomy Services: [id number] Modifier: [id number] 1 <*> Procedure Lumbar Fusion Posterior 3 [...] IntraOp Dressing and Packing Audit 12/22/18 17:32:15 Representative Phlebotomy Services: [id number] Modifier: [id number] <+> 1 Applied By [facility] IntraOp General Case Animal Surgeon 1 Case Information OR OR 10 [facility] Case Level 1 Room Verified Yes Wound Class I - Clean Specialty SN Neurosurgery ASA Class 4 Diagnosis Preop Diagnosis LUMBAR REDICULOPATHY Postop Same As Preop No Postop Diagnosis SEE MD POST OP NOTE Last Modified By: Monica Bustillos Rn 12/22/18 13:20:56 [facility] IntraOp General Case Data Audit 12/22/18 13:20:56 Representative Phlebotomy Services: [id number] Modifier: [id number] <+> 1 Postop Same As Preop <+> 1 Preop Diagnosis <+> 1 Postop Diagnosis [facility] IntraOp Implant Log Entry 1 Entry 2 Entry 3 Type Tissue Implant Tissue Implant Implant (Synthetic) (Biologic) (Biologic) Implant Log Implant Type Hardware Tissue Implant Type Bone Bone Implant BONE VIVIGEN FRMBLE BONE FT DBX [id number] Identification CELL [facility]-[id number] [facility]-[id number] Description Implant Quantity 1 1 2 Implant Site OP SITE OP SITE OPSITE Implant [id number] Identification Model Number Implant [id number] Identification Serial Number Implant Identification Lot Number Implant Lifenet:Lifenet Musculoskeletal SYNTHES SPINE Identification Transplant Srv Transplant Fnd [employer] Customer Service Name: Implant [id number] Identification Catalog Number Implant Size PREBENT SCOLI RAE Implant Has an Yes Yes No Expiration Date Implant Expiration 11/27/19 06/12/20 Date Wasted Radioactive Material Time Implanted Tissue Implant Continue for Tissue Implant Documentation Tissue Identification Number Graft Prep Per [employer] Customer Service Instructions: Tissue Preparation Method: Reconstitution Solution: Reconstitution Solution Lot Number Reconstitution Solution Expiration Date: Thawing Solution Thawing Solution Lot Number Thawing Solution Expiration Date Preparation Materials, Other Preparation Materials, Other Lot Number Preparation Materials, Other Expiration Date Tissue Prepared/Processed By [employer] Customer Service Paperwork Completed Implant Type Comment Last Modified [...] FIX FEN SCR SPNE ALIN FIX Identification [id number] Description Implant Quantity 6 8 4 Implant Site OPSITE OPSITE OPSITE Implant Identification Model Number Implant Identification Serial Number Implant Identification Lot Number Implant J&J:Depuy:Depuy Spine J&J:Depuy:Depuy Spine J&J:Depuy:Depuy Spine Identification [employer] Customer Service Name: Implant [id number] [id number] Identification Catalog Number Implant Size Implant Has an No No No Expiration Date Implant Expiration Date Wasted Radioactive Material Time Implanted Tissue Implant Continue for Tissue Implant Documentation Tissue Identification Number Graft Prep Per [employer] Customer Service Instructions: Tissue Preparation Method: Reconstitution Solution: Reconstitution Solution Lot Number Reconstitution Solution Expiration Date: Thawing Solution Thawing Solution Lot Number Thawing Solution Expiration Date Preparation Materials, Other Preparation Materials, Other Lot Number Preparation Materials, Other Expiration Date Tissue Prepared/Processed By [employer] Customer Service Paperwork Completed Implant Type Comment Last Modified By: Monica Bustillos Rn Burdine, Teresa A, Rn Burdine, Teresa A, Rn 12/22/18 15:37:38 12/22/18 17:42:10 12/22/18 17:42:10 Entry 7 Entry 8 Entry 9 Type Implant (Synthetic) Implant (Synthetic) Implant (Synthetic) Implant Log Implant Type Hardware Hardware Hardware Tissue Implant Type Implant SCR ILIAM 9MM X 100MM MIS SUNNI PLY SCRW SET CAGE BULLET CONCORDE Identification [id number] Description Implant Quantity 2 20 1 Implant Site OPSITE OPSITE OPSITE Implant Identification Model Number Implant Identification Serial Number Implant Identification Lot Number Implant J&J:Depuy:Depuy Spine J&J:Depuy:Depuy Spine J&J:Depuy:Depuy Spine Identification [employer] Customer Service Name: Implant [id number] 1867-15-000 [id number] Identification Catalog Number Implant Size Implant Has an No No No Expiration Date Implant Expiration Date Wasted Radioactive Material Time Implanted Tissue Implant Continue for Tissue Implant Documentation Tissue Identification Number Graft Prep Per [employer] Customer Service Instructions: Tissue Preparation Method: Reconstitution Solution: Reconstitution Solution Lot Number Reconstitution Solution Expiration Date: Thawing Solution Thawing Solution Lot Number Thawing Solution Expiration Date Preparation Materials, Other Preparation Materials, Other Lot Number Preparation Materials, Other Expiration Date Tissue Prepared/Processed By [employer] Customer Service Paperwork Completed Implant Type Comment Last Modified By: Monica Bustillos Rn Burdine, Teresa A, Rn Burdine, Teresa A, Rn 12/22/18 17:42:10 12/22/18 17:42:10 12/22/18 17:42:10 Entry 10 Entry 11 Type Implant (Synthetic) Implant (Synthetic) Implant Log Implant Type Hardware Hardware Tissue Implant Type Implant CAGE BULLET CONCORDE CONCORDE BUL ANGELIKA Identification [id number] Description Implant Quantity 1 1 Implant Site OPSITE OPSITE Implant Identification Model Number Implant Identification Serial Number Implant Identification Lot Number Implant J&J:Depuy:Depuy Spine J&J:Depuy:Depuy Spine Identification [employer] Customer Service Name: Implant [id number] [id number] Identification Catalog Number Implant Size Implant Has an No No Expiration Date Implant Expiration Date Wasted Radioactive Material Time Implanted Tissue Implant Continue for Tissue Implant Documentation Tissue Identification Number Graft Prep Per [employer] Customer Service Instructions: Tissue Preparation Method: Reconstitution Solution: Reconstitution Solution Lot Number Reconstitution Solution Expiration Date: Thawing Solution Thawing Solution Lot Number Thawing Solution Expiration Date Preparation Materials, Other Preparation Materials, Other Lot Number Preparation Materials, Other Expiration Date Tissue Prepared/Processed By [employer] Customer Service Paperwork Completed Implant Type Comment Last Modified By: Monica Bustillos Rn Burdine, Teresa A, Rn 12/22/18 17:42:10 12/22/18 17:42:10 [facility] IntraOp Implant Log Audit 12/22/18 17:42:10 Representative Phlebotomy Services: [id number] Modifier: [id number] <+> 3 Implant Identification Description <+> 3 Implant Identification [employer] Customer Service Name: <+> 3 Implant Size <+> 3 Implant Site <+> 3 Implant Quantity <+> 3 Implant Type <+> 3 Implant Has an Expiration Date <+> 3 Type <+> 4 Implant Identification Description <+> 4 Implant Identification [employer] Customer Service Name: <+> 4 Implant Site <+> 4 Implant Quantity <+> 4 Implant Identification Catalog Number <+> 4 Implant Type <+> 4 Implant Has an Expiration Date <+> 4 Type <+> 5 Implant Identification Description <+> 5 Implant Identification [employer] Customer Service Name: <+> 5 Implant Site <+> 5 Implant Quantity <+> 5 Implant Identification Catalog Number <+> 5 Implant Type <+> 5 Implant Has an Expiration Date <+> 5 Type <+> 6 Implant Identification Description <+> 6 Implant Identification [employer] Customer Service Name: <+> 6 Implant Site <+> 6 Implant Quantity <+> 6 Implant Identification Catalog Number <+> 6 Implant Type <+> 6 Implant Has an Expiration Date <+> 6 Type <+> 7 Implant Identification Description <+> 7 Implant Identification [employer] Customer Service Name: <+> 7 Implant Site <+> 7 Implant Quantity <+> 7 Implant Identification Catalog Number <+> 7 Implant Type <+> 7 Implant Has an Expiration Date <+> 7 Type <+> 8 Implant Identification Description <+> 8 Implant Identification [employer] Customer Service Name: <+> 8 Implant Site <+> 8 Implant Quantity <+> 8 Implant Identification Catalog Number <+> 8 Implant Type <+> 8 Implant Has an Expiration Date <+> 8 Type <+> 9 Implant Identification Description <+> 9 Implant Identification [employer] Customer Service Name: <+> 9 Implant Site <+> 9 Implant Quantity <+> 9 Implant Identification Catalog Number <+> 9 Implant Type <+> 9 Implant Has an Expiration Date <+> 9 Type <+> 10 Implant Identification Description <+> 10 Implant Identification [employer] Customer Service Name: <+> 10 Implant Site <+> 10 Implant Quantity <+> 10 Implant Identification Catalog Number <+> 10 Implant Type <+> 10 Implant Has an Expiration Date <+> 10 Type <+> 11 Implant Identification Description <+> 11 Implant Identification [employer] Customer Service Name: <+> 11 Implant Site <+> 11 [...] high Antiembolic Device Bilateral Location Antiembolic Device [id number] ID Number Scopes Photo/Video Documentation Photo No Video No Last Modified By: Monica Bustillos Rn 12/22/18 13:22:24 [facility] IntraOp Medication Admin Entry 1 Entry 2 Entry 3 Medication/Irrigant Bacitracin 50,00units lidocaine 1% w/ Marcaine 0.25% 30ml powder vial epinephrine 1:100,000 vial - [id number] 30ml vial - [id number] Combo Med List Time Administered Route of MIXED WITH NS IRRIGATION LOCAL LOCAL Administration Dose Dose 44587 10 10 Unit of Measure units ml [...] ointment SEALR AQUAMANTYS BIPLR SPNG SURGFOAM - [id number] Combo Med List Time Administered Route of [...] Entry 8 Medication/Irrigant thrombin 5000units vancomycin -- [id number] topical powder - [id number] Combo Med List Time Administered Route of TOPICAL POWDER IN WOUND Administration Dose Dose 5000 1 Unit of Measure units gram Volume Administered By HEIDE KAT TUTT, MATTHEW PAIGE, MD-SNU MD-SNU Procedure Irrigation Irrigant Volume In Irrigant Volume Out Last Modified By: Monica Bustillos Rn Burdine, Teresa A, Rn 12/22/18 13:24:19 12/22/18 16:41:25 [facility] IntraOp Medication Admin Audit 12/22/18 16:41:25 Representative Phlebotomy Services: [id number] Modifier: [id number] <+> 8 Medication/Irrigant <+> 8 Route of [...] CENTER IntraOp Sign Out Audit 12/22/18 18:09:18 Representative Phlebotomy Services: [id number] Modifier: [id number] 1 <*> RN Sign Out Signature Monica [...] Procedure Lumbar Fusion Posterior 3 Level Additional ([id number] PLIF) Procedure Description Primary Procedure Yes Primary Surgeon HEIDE KAT MD-SNU Start 12/22/18 13:14:00 Stop 12/22/18 17:20:00 Anesthesia Type General Specialty SN Neurosurgery Wound Class I - Clean Last Modified By: Monica Bustillos Rn 12/22/18 18:09:20 General Comments: ANCEF 2GM IV PER ANESTHESIA [facility] IntraOp Surgical Procedures Audit 12/22/18 18:09:20 Representative Phlebotomy Services: [id number] Modifier: [id number] 1 <*> Stop 1 <*> Stop [facility] IntraOp Temp Regulation Devices Entry 1 Temp Regulation Temperature Forced Air Warming Regulation Device device Temperature Upper body Regulation Site Last Modified By: Monica Bustillos Rn 12/22/18 12:37:27 [facility] IntraOP Time Out Entry 1 Electronically signed by Taryn [facility] Conversion Access Spec Cerner at 11/12/2022 9:34 PM CDT documented in this encounter Plan of Treatment Not on file documented as of this encounter Visit Diagnoses Not on filedocumented in this encounter
--- OUTSIDE RECORDS SUMMARY | 2025-03-24 12:25 | XMS_ITS | Encounter Summary ---
Author Organization [employer] ([place], [place], [place], [place]) Address [address] [place] [address] Care Team Providers Care Minor League Baseball Player Name Role Phone Unavailable Primary Care Provider Unavailabl e Encounter Details Date Type Department Care Team (Late st Contact Info) Description 12/22/2018 Transcribed Document [facility] Radiology [address] [place] [address] Ivana Salcido MD [facility] [address] [address] Social History Tobacco Use Types [...] APRN 12/22/18 cc: medical management - awaiting [id number]-[id number] PLIF per Dr. Akers S: Patient in pre-op. present. Denies F/C/S. Denies SOA or chest pain. Denies headaches. Denies N/V/D. Denies constipation. Denies pain. Denies tobacco or ETOH use. Denies anxiety/depression. Denies any concerns at this time. HPI: Patient is a 68 yo male admitted to [facility] per Dr. Oswald for a [id number]-[id number] PLIF. Preoperatively patient was found to have [...] (Past 24 Hours) Impression: spondylolisthesis Lspine; awaiting J05-ievok PLIF per Dr. Akers hx Arthritis hx [...]
--- OUTSIDE RECORDS SUMMARY | 2025-03-24 12:25 | XMS_ITS | Encounter Summary ---
Author Organization [employer] ([place], [place], [place], [place]) Address [address] [place] [address] Care Team Providers Care Bi Consultant Name Role Phone Unavailable Primary Care Provider Unavailabl e Encounter Details Date Type Department Care Team (Late st Contact Info) Description 11/06/2019 Transcribed Document [facility] [place] [facility] [address] ProviderAgnieszka MD [address] [place], [place] [address] Social History Tobacco Use Types Packs/Day Years [...] mL: 2 Gram, 200 mL/Hr, IV Piggyback, [id number] docusate sodium: 200 mg, Oral, BID fentaNYL: [...] mL: 1,250 mg, 250 mL/Hr, IV Piggyback, [id number] Pending Complete fentaNYL: 25 mcg, IV Push, Q10Min Documented Medications Documented Azilect 1 mg oral tablet: 1 Tab, Oral, Daily, 30 Tab, 0 Refill(s) Remicade: 10 mg/kg, IntraVENous, [id number], for Ulcerative Colitis; Last dose: 09/29/2019, 0 [...] *MBP* 100 mL 2 Gram, IV Piggyback, S07SLgv docusate sodium 100 mg cap 200 mg 2 Cap, Oral, BID lactobacillus acidophilus cap 1 Cap, Oral, Daily rasagiline 1 mg tab 1 mg 1 Tab, Oral, Daily vancomycin + NaCl 0.9% 250 mL 1,250 mg, IV Piggyback, P24KHil Continuous: (1) lactated ringers 1,000 mL 1,000 [...] All Problems Parkinson disease / SNOMED CT 60892023 / Confirmed Scoliosis / SNOMED CT 155074991 / Confirmed Colitis / SNOMED CT 0802347019 / Confirmed Arthritis / SNOMED CT 8421985 / Confirmed 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
--- OUTSIDE RECORDS SUMMARY | 2025-03-24 12:25 | XMS_ITS | Encounter Summary ---
Author Organization [employer] ([place], [place], [place], [place]) Address [address] [place] [address] Care Team Providers Care Chancery Clerk Name Role Phone Unavailable Primary Care Provider Unavailabl e Encounter Details Date Type Department Care Team (Late st Contact Info) Description 11/07/2019 Transcribed Document [facility] [place] [address] [place] [address] ProviderAgnieszka MD [address] [place], [place] [address] Social History Tobacco Use Types Packs/Day Years [...]
--- OUTSIDE RECORDS SUMMARY | 2025-03-24 12:25 | XMS_ITS | Encounter Summary ---
Author Organization [employer] ([place], [place], [place], [place]) Address [address] [place] [address] Care Team Providers Care Video Production Coordinator Name Role Phone Unavailable Primary Care Provider Unavailabl e Encounter Details Date Type Department Care Team (Late st Contact Info) Description 11/02/2019 Transcribed Document [facility] [place] [address] [place] [address] ProviderAgnieszka MD [address] [place], [place] [address] Social History Tobacco Use Types Packs/Day Years [...]
--- OUTSIDE RECORDS SUMMARY | 2025-03-24 12:25 | XMS_ITS | Encounter Summary ---
Author Organization [employer] ([place], [place], [place], [place]) Address [address] [place] [address] Care Team Providers Care Chief Mate Name Role Phone Unavailable Primary Care Provider Unavailabl e Encounter Details Date Type Department Care Team (Late st Contact Info) Description 12/22/2018 Transcribed Document [facility] [place] [address] [place] [address] ProviderAgnieszka MD [address] [place], [place] [address] Social History Tobacco Use Types Packs/Day Years [...]
--- OUTSIDE RECORDS SUMMARY | 2025-03-24 12:25 | XMS_ITS | Encounter Summary ---
Author Organization [employer] ([place], [place], [place], [place]) Address [address] [place] [address] Care Team Providers Care Shift Foreman Name Role Phone Unavailable Primary Care Provider Unavailabl e Encounter Details Date Type Department Care Team (Late st Contact Info) Description 11/07/2019 Transcribed Document [facility] [address] [place] [address] ProviderAgnieszka MD [address], [place] [id number] Social History Tobacco Use Types Packs/Day Years [...] requested he see patient. Patient is a Sikhism and welcomes prayer. Spiritual/Emotional Acuity : Medium Spiritual Framework : Integrated, provides strength/resource Active in a Sikh/Sommer Group : Yes Quaker Preference : Sikhism Summary/Next Steps Comment/Summary : Prayer and encouragement shared with patient. NAE BELL Chaplain - 11/07/2019 11:28 EDT documented in this encounter Plan of Treatment Not on file documented as of this encounter Visit Diagnoses Not on filedocumented in this encounter
--- OUTSIDE RECORDS SUMMARY | 2025-03-24 12:25 | XMS_ITS | Encounter Summary ---
Author Organization [employer] ([place], [place], [place], [place]) Address [address] [place] [address] Care Team Providers Care Fructose Loader Name Role Phone Unavailable Primary Care Provider Unavailabl e Encounter Details Date Type Department Care Team (Late st Contact Info) Description 12/22/2018 Transcribed Document [facility] [place] Family Medicine [facility] [place] [address] ProviderAgnieszka MD [address], [place] [id number] Social History Tobacco Use Types Packs/Day Years [...]
--- OUTSIDE RECORDS SUMMARY | 2025-03-24 12:25 | XMS_ITS | Encounter Summary ---
Author Organization [employer] ([place], [place], [place], [place]) Address [address] [place] [address] Care Team Providers Care Transit Planner Name Role Phone Unavailable Primary Care Provider Unavailabl e Encounter Details Date Type Department Care Team (Late st Contact Info) Description 12/22/2018 Transcribed Document [facility] [place] Family Medicine [facility] [place] [address] ProviderAgnieszka MD [address], [place] [id number] Social History Tobacco Use Types Packs/Day Years [...]
--- OUTSIDE RECORDS SUMMARY | 2025-03-24 12:26 | XMS_ITS | Encounter Summary ---
Author Organization [employer] ([place], [place], [place], [place]) Address [address] [place] [address] Care Team Providers Care Senior Mortgage Underwriter Name Role Phone Unavailable Primary Care Provider Unavailabl e Encounter Details Date Type Department Care Team (Late st Contact Info) Description 12/16/2018 Transcribed Document [facility] [place] Family Medicine [facility] [place] [address] ProviderAgnieszka MD [address] [place] [address] Social History Tobacco Use Types [...] Source : Measured Height Entry Format : [place] Height, Feet : 5 ft(Converted to: 152 [...] Body Mass Index : 60.6 kg/m2 (>HHI) [place] Body Weight : 70 kg MILTON GAMEZ [...] #2 Relationship : , Primary Language : Malawian Communication Barrier : None MILTON GAMEZ RN [...] MILTON GAMEZ RN - 12/16/2018 11:33 EDT Electronically signed by Gay Centeno Conversion Employer Relations Representative [employer] at 11/12/2022 9:32 PM CDT documented in this encounter Plan of Treatment Not on file documented as of this encounter Visit Diagnoses Not on filedocumented in this encounter
--- OUTSIDE RECORDS SUMMARY | 2025-03-24 12:26 | XMS_ITS | Encounter Summary ---
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 Integumentary: Warm, Dry, [place]. Neurologic: Alert, Oriented. Psychiatric: Cooperative, Appropriate mood [...]
--- OUTSIDE RECORDS SUMMARY | 2025-03-24 12:26 | XMS_ITS | Encounter Summary ---
Author Organization [email or web address] ([place], [place], [place], [place]) Address [address] [place] [address] Care Team Providers Care Outreach And Education Social Worker Name Role Phone Unavailable Primary Care Provider Unavailabl e Encounter Details Date Type Department Care Team (Late st Contact Info) Description 12/16/2018 Transcribed Document [facility] [place] [facility] [place] [address] ProviderAgnieszka MD [address] [place] [address] Social History Tobacco Use Types [...] Source : Measured Height Entry Format : [place] Height, Feet : 5 ft(Converted to: 152 cm, 60 Inch) Height, Inches : 9 Inch(Converted to: 0 ft 9 Inch, 22.86 cm) Clinical Height : 175.26 cm Weight Source : Standing scale Weight Entry Format : [place] Clinical Dosing Weight : 84.55 kg Weight, Pounds : 186 lb Body Surface Area (BSA) : 2 m2 Body Mass Index : 27.5 kg/m2 (HI) [place] Body Weight : 70 kg MILTON GAMEZ RN - 12/16/2018 12:13 EDT documented in this encounter Plan of Treatment Not on file documented as of this encounter Visit Diagnoses Not on filedocumented in this encounter
--- OUTSIDE RECORDS SUMMARY | 2025-03-24 12:26 | XMS_ITS | Encounter Summary ---
Author Organization [employer] ([place], [place], [place], [place]) Address [address] [place] [address] Care Team Providers Care Box Strapper Name Role Phone Unavailable Primary Care Provider Unavailabl e Encounter Details Date Type Department Care Team (Late st Contact Info) Description 11/05/2019 Transcribed Document [facility] [place] [facility] Medicine [address] [place] [address] ProviderAgnieszka MD [address], [place] [address] Social History Tobacco Use Types Packs/Day Years [...]
--- OUTSIDE RECORDS SUMMARY | 2025-03-24 12:26 | XMS_ITS | Encounter Summary ---
Author Organization [employer] ([place], [place], [place], [place]) Address [address] [place] [address] Care Team Providers Care Consumer Education Specialist Name Role Phone Unavailable Primary Care Provider Unavailabl e Encounter Details Date Type Department Care Team (Late st Contact Info) Description 11/06/2019 Transcribed Document [facility] [place] Family Medicine [address] [place] [address] ProviderAgnieszka MD [address] [place] [address] Social History Tobacco Use Types [...] STORMY POPE PT - 11/06/2019 16:19 EDT documented in this encounter Plan of Treatment Not on file documented as of this encounter Visit Diagnoses Not on filedocumented in this encounter
--- OUTSIDE RECORDS SUMMARY | 2025-03-24 12:26 | XMS_ITS | Encounter Summary ---
Author Organization [employer] ([place], [place], [place], [place]) Address [address] [place] [address] Care Team Providers Care Operations Consultant Name Role Phone Unavailable Primary Care Provider Unavailabl e Encounter Details Date Type Department Care Team (Late st Contact Info) Description 11/05/2019 Transcribed Document [facility] [place] Family Medicine [address] [place] [address] ProviderAgnieszka MD [address], [place] [id number] Social History Tobacco Use Types Packs/Day Years Used Date Smoking Tobacco: Never Assessed Sex and Gender Information Value Date Recorded Sex Assigned at Not on file Legal Sex Male 2:38 PM CDT Gender Identity Not on file Sexual Orientation Not on file documented as of this encounter Miscellaneous Notes * Cerner Conversion Note - Agnieszka ProviderMD - 11/05/2019 9:27 AM CDT [facility] Main OR IntraOp Summary Primary Physician: HEIDE KAT MD-SNU Finalized Date/Time: 11/06/19 17:47:55 Pt. Name: EILEEN MAYEN JR, D.O.B./Sex: 1950 Male Med Rec #: [id number] Physician: LORENA SAGASTUME MD-INT Financial #: [id number] Pt. Type: I Room/Bed: [facility]/ Admit/Disch: 11/02/19 02:59:00 - Institution: [facility] IntraOp Case Attendance Entry 1 Entry 2 Entry 3 Case Attendee HEIDE KAT WASSON, SANDRA D, RN COMPTON, TRACY, RN MD-DIVYA Role Performed Surgeon/Proceduralist, Drawing Kiln Operator, First Drawing Kiln Operator, First First Time In 11/05/19 08:26:00 11/05/19 [...] COURTNEY, PA-INT Role Performed Scrub, First Physician contract assistant TRACK WALKER/Nurse Imaging Analyst Time In 11/05/19 08:26:00 11/05/19 08:26:00 11/05/19 [...] ALCAZAR, OTHER, ATTENDEE #1 Claribel Monteiro MD-ANS Family Service Caseworker Role Performed Anesthesiologist of Vendor Mud Cleaner Operator Record Time In 11/05/19 08:26:00 11/05/19 08:26:00 [...] MORA, RN MARLEN SHETH MD-ERYN Role Performed Drawing Kiln Operator, Second Drawing Kiln Operator, First Anesthesiologist Time In 11/05/19 09:25:00 11/05/19 11:00:00 11/05/19 11:16:00 Time Out 11/05/19 09:35:00 11/05/19 11:40:00 11/05/19 12:04:00 Procedure Lumbar Fusion Posterior Lumbar Fusion Posterior Lumbar Fusion Posterior 3 Level 3 Level 3 Level Other Attendee [facility] REL[facility]F TRACK WALKER LUNCH RELIEF Superficial Wound Closed By: Last Modified By: ARCHIE BENITEZ, RN ARCHIE BENITEZ, RN ARCHIE BENITEZ, RN 11/05/19 09:38:14 11/05/19 11:54:30 11/05/19 11:54:30 [facility] IntraOp Case Attendance Audit 11/05/19 12:08:12 Mix House Operator: WASSONSY Modifier: WASSONSY 1 <+> Time Out [...] Lumbar Fusion Posterior 3 Level 11/05/19 12:07:32 Mix House Operator: WASSONSY Modifier: WASSONSY 12 <+> Time Out 12 <*> Procedure Lumbar Fusion Posterior 3 Level 11/05/19 11:54:30 Mix House Operator: WASSONSY Modifier: WASSONSY 9 <+> Time Out 9 <*> Procedure Lumbar Fusion Posterior 3 Level <+> 11 Case Attendee <+> 11 Role Performed <+> 11 Time In <+> 11 Time Out <+> 11 Procedure <+> 11 Other Attendee <+> 12 Case Attendee <+> 12 Role Performed <+> 12 Time In <+> 12 Procedure <+> 12 Other Attendee 11/05/19 09:38:14 Mix House Operator: WASSONSY Modifier: WASSONSY <+> 10 Case Attendee <+> 10 Role Performed <+> 10 Time In <+> 10 Time Out <+> 10 Procedure 11/05/19 09:35:41 Mix House Operator: WASSONSY Modifier: WASSONSY 1 <*> Procedure Lumbar [...] <*> Procedure Lumbar Fusion Posterior 3 Level [facility] IntraOp Case Times Entry 1 Patient In Room Time 11/05/19 08:26:00 Out Room Time 11/05/19 12:09:00 Anesthesia Start Time 11/05/19 08:26:00 Stop Time 11/05/19 12:09:00 Surgery / Procedure Times Start Time 11/05/19 09:27:00 Stop Time 11/05/19 11:37:00 Last Modified By: ANTON MORA RN 11/05/19 11:39:51 [facility] IntraOp Case Times Audit 11/05/19 12:07:57 Mix House Operator: BRADYCM Modifier: WASSONSY <+> 1 Out Room Time <+> 1 Stop Time 11/05/19 11:39:51 Mix House Operator: WASSONSY Modifier: BRADYCM <+> 1 Stop Time 11/05/19 09:36:28 Mix House Operator: WASSONSY Modifier: WASSONSY <+> 1 Start Time [facility] IntraOp Cautery Entry 1 Entry 2 ESU Identification Cautery Type Monopolar ESU BiPolar ESU Cautery Type Comments ID Number [id number] ID Type Hospital Number Hospital Number Cautery [...] ARCHIE BROWN RN 11/05/19 09:40:16 11/05/19 09:40:16 [facility] IntraOp Communication Entry 1 Communication To Family/Significant other Comment START Communication By ANTON MORA RN Date and Time 11/05/19 09:30:00 Last Modified By: ARCHIE BENITEZ RN 11/05/19 09:37:44 [facility] IntraOp Communication Audit 11/05/19 09:38:20 Mix House Operator: NIKI Modifier: EMMANUELSY 1 <*> Communication By ARCHIE BENITEZ, RN [facility] IntraOp Counts Verification Entry 1 Procedure Lumbar Fusion Posterior 3 Level Count Info Count Type Sponge, Sharps, Miscellaneous Counts Verification Baseline/pre-procedure Sequence Count Results Not Applicable Counts Performed By Count Performed By KENNY IGNACIO ST (Scrub) Count Performed By ARCHIE BENITEZ RN (RN) Last Modified By: ARCHIE BENITEZ RN 11/05/19 09:36:13 [facility] IntraOp Counts Final Entry 1 Procedure Lumbar Fusion Posterior 3 Level Final Count Info Count Type Sponge, Sharps Counts Verification Skin Closure/end of Sequence procedure Count Results Correct, surgeon notified Counts Performed By Count Performed By KENNY IGNACIO ST (Scrub) Count Performed By ANTON MORA RN (RN) Last Modified By: ANTON MORA RN 11/05/19 11:40:06 [facility] IntraOp Cultures and Spec Summary Entry 1 Cultrures and Specimens Specimen Ordered: Yes Test(s) Routine/Path-Lab, Requested/Final Culture(s)/Microbiology Disposition Last Modified By: ARCHIE BENITEZ RN 11/05/19 09:41:15 General Comments: A. EXPLANTED HARDWARE [facility] IntraOp Departure from OR Entry 1 Integumentary Assessment Integumentary WDL Assessment WDL Transfer/Handoff Transfer to PACU Phase I Handoff Method Phone call Handoff Reported to Simon Huang RN Post-op Transport Stretcher/Gurney Via Patient Transport HARITHA FUNES APRN, Accompanied by ARCHIE BENITEZ RN Last Modified By: ARCHIE BENITEZ RN 11/05/19 12:07:42 [facility] IntraOp Departure from OR Audit 11/05/19 12:07:42 Mix House Operator: WASSONSY Modifier: WASSONSY <+> 1 Handoff Reported to 11/05/19 12:02:19 Mix House Operator: WASSONSY Modifier: WASSONSY 1 <*> Patient Transport Accompanied by HARITHA FUNES APRN [facility] IntraOp Drains and Tubes Entry 1 Device Type Zia Drain Size 15fr Drain/Tube Activity Inserted Drain/Tube Suction Bulb Drain/Tube Drainage Serosanguineous Device Location OP SITE Method of Drainage Compression Last Modified By: ATNON MORA RN 11/05/19 11:51:07 [facility] IntraOp Dressing and Packing Entry 1 Type Dressing Location OP SITE Wound Dressing Item Steristrip, Other Applied By RUDOLPH NASCIMENTO PA-INT Other Comments NEOSPORIN OINTMENT, STERISTRIPS, COVADERM Last Modified By: ARCHIE BENITEZ RN 11/05/19 10:43:35 [facility] IntraOp Fire Risk Assessment Entry 1 Fire Info Surgical Site or 1- Yes Incision Above the Xyphoid Open O2 Source 0- No (Mask or Cannula) Available Ignition 1- Yes (ESU, Laser, Light Source) Fire Risk 2 Assessment Score Fire Score Fire Risk Yes Assessment Complete Fire Risk ARCHIE BENITEZ studio producer Verified By Fire Risk 11/05/19 08:25:00 Assessment Verified Date/Time Fire Risk Standard Fire Yes Safety Precautions Followed Last Modified By: ARCHIE BENITEZ RN 11/05/19 09:40:43 [facility] IntraOp General Case Cylinder Tester 1 Case Information OR OR 10 [facility] Case Level 1 Room Verified Yes Wound Class I - Clean Specialty SN Neurosurgery Anesthesia Type General ASA Class 3 Diagnosis Preop Diagnosis SPINAL INSTABILITY, FRACTURE Postop Same As Preop No Postop Diagnosis SEE MD POST OP NOTE Last Modified By: ARCHIE BENITEZ RN 11/05/19 09:40:59 [facility] IntraOp General Case Data Audit 11/05/19 10:24:22 Mix House Operator: NIKI Modifier: NIKI <+> 1 Preop Diagnosis [facility] IntraOp Implant Log Entry 1 Entry 2 Entry 3 Type Implant (Synthetic) Implant (Synthetic) Implant (Synthetic) Implant Log Implant Type Bone Cement Hardware Hardware Tissue Implant Type Implant CEMENT SPINAL SCR SPNE ALIN FIX FEN SCR SPNE ALIN FIX FEN Identification [id number] Description Implant Quantity 2 4 4 Implant Site OP SITE OPSITE OPSITE Implant Identification Model Number Implant Identification Serial Number Implant [id number] Identification Lot Number Implant J&J:Depuy:Depuy Spine J&J:Depuy:Depuy Spine J&J:Depuy:Depuy Spine Identification Bean Viner Name: Implant [id number] Identification Catalog Number Implant Size Implant Has an Yes Expiration Date Implant Expiration 10/25/21 Date Wasted Radioactive Material Time Implanted Tissue Implant Continue for Tissue Implant Documentation Tissue Identification Number Graft Prep Per Bean Viner Instructions: Tissue Preparation Method: Reconstitution Solution: Reconstitution Solution Lot Number Reconstitution Solution Expiration Date: Thawing Solution Thawing Solution Lot Number Thawing Solution Expiration Date Preparation Materials, Other Preparation Materials, Other Lot Number Preparation Materials, Other Expiration Date Tissue Prepared/Processed By Bean Viner Paperwork Completed Implant Type Comment Last Modified By: ANTON MORA RN BRADY, CHRISTINA M, RN WASSON, SANDRA D, RN 11/05/19 11:44:19 11/05/19 11:44:19 11/05/19 11:13:15 Entry 4 Entry 5 Entry 6 Type Implant (Synthetic) Implant (Synthetic) Implant (Synthetic) Implant Log Implant Type Hardware Hardware Hardware Tissue Implant Type Implant MIS SUNNI PLY SCRW SET RAE CONN EXPEDIUM 200MM RAE SPINE EXPEDIUM Identification [id number] Description Implant Quantity 14 2 1 Implant Site OPSITE OPSIE OPSTE Implant Identification Model Number Implant Identification Serial Number Implant Identification Lot Number Implant J&J:Depuy:Depuy Spine J&J:Depuy:Depuy Spine J&J:Depuy:Depuy Spine Identification Bean Viner Name: Implant [id number] Identification Catalog Number Implant Size Implant Has an Expiration Date Implant Expiration Date Wasted Radioactive Material Time Implanted Tissue Implant Continue for Tissue Implant Documentation Tissue Identification Number Graft Prep Per Bean Viner Instructions: Tissue Preparation Method: Reconstitution Solution: Reconstitution Solution Lot Number Reconstitution Solution Expiration Date: Thawing Solution Thawing Solution Lot Number Thawing Solution Expiration Date Preparation Materials, Other Preparation Materials, Other Lot Number Preparation Materials, Other Expiration Date Tissue Prepared/Processed By Bean Viner Paperwork Completed Implant Type Comment Last Modified By: ARCHIE BENITEZ, ARCHIE BROWN RN WASSON, SANDRA D, RN 11/05/19 11:13:15 11/05/19 11:13:15 11/05/19 11:13:15 Entry 7 Entry 8 Type Implant (Synthetic) Implant (Synthetic) Implant Log Implant Type Hardware Hardware Tissue Implant Type Implant CONN VARIABLE CONN [place] BAND Identification OFFSET-[id number] OPEN/CLOSE-[id number] Description Implant Quantity 2 2 Implant Site OPSITE OPSITE Implant Identification Model Number Implant Identification Serial Number Implant Identification Lot Number Implant J&J:Depuy:Depuy Spine J&J:Depuy:Depuy Spine Identification Bean Viner Name: Implant [id number] Identification Catalog Number Implant Size Implant Has an Expiration Date Implant Expiration Date Wasted Radioactive Material Time Implanted Tissue Implant Continue for Tissue Implant Documentation Tissue Identification Number Graft Prep Per Bean Viner Instructions: Tissue Preparation Method: Reconstitution Solution: Reconstitution Solution Lot Number Reconstitution Solution Expiration Date: Thawing Solution Thawing Solution Lot Number Thawing Solution Expiration Date Preparation Materials, Other Preparation Materials, Other Lot Number Preparation Materials, Other Expiration Date Tissue Prepared/Processed By Bean Viner Paperwork Completed Implant Type Comment Last Modified By: ARCHIE BENITEZ, ARCHIE BROWN RN 11/05/19 11:13:15 11/05/19 11:13:15 [facility] IntraOp Implant Log Audit 11/05/19 11:44:19 Mix House Operator: NIKI Modifier: BRADYCM 1 <*> Implant Identification Description CEMENT SPINAL CONFIDENCE-[id number] 1 <*> Implant Identification Lot Number [id number] 1 <*> Implant Identification Bean Viner J&J:Depuy:Depuy Spine Name: 1 <*> Implant Expiration Date 10/25/21 1 <*> Implant Site OP SITE 1 <*> Implant Quantity 2 1 <*> Implant Identification Catalog [id number] Number 1 <*> Implant Type Bone Cement 1 <*> Implant Has an Expiration Date Yes 1 <*> Type Implant (Synthetic) 2 <*> Implant Identification Description SCR SPNE ALIN FIX FEN [id number] 2 <*> Implant Identification Bean Viner J&J:Depuy:Depuy Spine Name: 2 <*> Implant Site OPSITE 2 <*> Implant Quantity 4 2 <*> Implant Identification Catalog [id number] Number 2 <*> Implant Type Hardware 2 <*> Type Implant (Synthetic) 3 <*> Implant Identification Description SCR SPNE ALIN FIX FEN [id number] 3 <*> Implant Identification Bean Viner J&J:Depuy:Depuy Spine Name: 3 <*> Implant Site OPSITE 3 <*> Implant Quantity 4 3 <*> Implant Identification Catalog [id number] Number 3 <*> Implant Type Hardware 3 <*> Type Implant (Synthetic) 4 <*> Implant Identification Description MIS SUNNI PLY SCRW SET -[id number] 4 <*> Implant Identification Bean Viner J&J:YASSSU:YASSSU Spine Name: 4 <*> Implant Site OPSITE 4 <*> Implant Quantity 14 4 <*> Implant Identification Catalog [id number] Number 4 <*> Implant Type Hardware 4 <*> Type Implant (Synthetic) 5 <*> Implant Identification Description [id number] 5 <+> Implant Identification Bean Viner Name: 5 <+> Implant Site 5 <+> Implant Quantity 5 <+> Implant Identification Catalog Number 5 <*> Implant Type Hardware 5 <*> Type Implant (Synthetic) 6 <*> Implant Identification Description RAE CONN EXPEDIUM 200MM -[id number] 6 <*> Implant Identification Bean Viner J&J:Depuy:Depuy Spine Name: 6 <*> Implant Site OPSIE 6 <*> Implant Quantity 2 6 <*> Implant Identification Catalog [id number] Number 6 <*> Implant Type Hardware 6 <*> Type Implant (Synthetic) 7 <*> Implant Identification Description RAE SPINE EXPEDIUM [id number] 7 <*> Implant Identification Bean Viner J&J:Depuy:Depuy Spine Name: 7 <*> Implant Site OPSTE 7 <*> Implant Quantity 1 7 <*> Implant Identification Catalog [id number] Number 7 <*> Implant Type Hardware 7 <*> Type Implant (Synthetic) 8 <*> Implant Identification Description CONN VARIABLE OFFSET-371264 8 <*> Implant Identification Bean Viner J&J:Elmeruy:Elmeruy Spine Name: 8 <*> Implant Site OPSITE 8 <*> Implant Quantity 2 8 <*> Implant Identification Catalog [id number] Number 8 <*> Implant Type Hardware 8 <*> Type Implant (Synthetic) 9 <-> Implant Identification Description CONN WEDDING BAND OPEN/CLOSE-855310 9 <-> Implant Identification Bean Viner J&J:Depuy:Elmeruy Spine Name: 9 <-> Implant Site OPSITE 9 <-> Implant Quantity 2 9 <-> Implant Identification Catalog [id number] Number 9 <-> Implant Type Hardware 9 <-> Type Implant (Synthetic) 11/05/19 11:13:15 Mix House Operator: WASSONSY Modifier: WASSONSY <+> 2 Implant Identification Description <+> 2 Implant Identification Bean Viner Name: <+> 2 Implant Site <+> 2 Implant Quantity <+> 2 Implant Identification Catalog Number <+> 2 Implant Type <+> 2 Type <+> 3 Implant Identification Description <+> 3 Implant Identification Bean Viner Name: <+> 3 Implant Site <+> 3 Implant Quantity <+> 3 Implant Identification Catalog Number <+> 3 Implant Type <+> 3 Type <+> 4 Implant Identification Description <+> 4 Implant Identification Bean Viner Name: <+> 4 Implant Site <+> 4 Implant Quantity <+> 4 Implant Identification Catalog Number <+> 4 Implant Type <+> 4 Type <+> 5 Implant Identification Description <+> 5 Implant Type <+> 5 Type <+> 6 Implant Identification Description <+> 6 Implant Identification Bean Viner Name: <+> 6 Implant Site <+> 6 Implant Quantity <+> 6 Implant Identification Catalog Number <+> 6 Implant Type <+> 6 Type <+> 7 Implant Identification Description <+> 7 Implant Identification Bean Viner Name: <+> 7 Implant Site <+> 7 Implant Quantity <+> 7 Implant Identification Catalog Number <+> 7 Implant Type <+> 7 Type <+> 8 Implant Identification Description <+> 8 Implant Identification Bean Viner Name: <+> 8 Implant Site <+> 8 Implant Quantity <+> 8 Implant Identification Catalog Number <+> 8 Implant Type <+> 8 Type <+> 9 Implant Identification Description <+> 9 Implant Identification Bean Viner Name: <+> 9 Implant Site <+> 9 Implant Quantity <+> 9 Implant Identification Catalog Number <+> 9 Implant Type <+> 9 Type 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 IntraOp Intraoperative Assessment Audit 11/05/19 10:40:46 Mix House Operator: NIKI Modifier: NIKI <+> 1 Intraoperative Assessment Comment [facility] IntraOp Intraoperative Equipment Entry 1 Type Equipment Equipment Equipment Ganesh Suction System ID Number [id number] Setting 200 MM HG Intraop Monitoring Electrocardiogram Five lead placement (ECG) Electrode Placement Blood Pressure Non-Invasive BP Device Source Blood Pressure Arm, right upper Location Pulse Oximeter Hand, left Probe Site Antiembolic Devices Antiembolic Devices Sequential compression device, knee high Antiembolic Device Bilateral Location Antiembolic Device [id number] ID Number Scopes Photo/Video Documentation Photo No Video No Last Modified By: ARCHIE BENITEZ RN 11/05/19 09:42:18 [facility] IntraOp Medication Admin Entry 1 Entry 2 Entry 3 Medication/Irrigant Bacitracin 50,00units lidocaine 1% w/ Neosporin 15Gm ointment powder vial epinephrine 1:100,000 - [id number] 30ml vial - [id number] Combo Med List Time Administered Route of ADDED TO NS IRRIGATION LOCAL TOPICAL Administration Dose Dose 44215 20 1 Unit of Measure units ml pkt Volume Administered By HEIDE KAT, HEIDE KAT HANCOCK SMITH, MD-SNU MD-SNU COURTNEY, PA-INT Procedure Irrigation Irrigant Volume In Irrigant Volume Out Last Modified By: ARCHIE BENITEZ, ARCHIE BROWN, ARCHIE BROWN RN 11/05/19 10:00:31 11/05/19 10:00:31 11/05/19 10:00:31 Entry 4 Entry 5 Entry 6 Medication/Irrigant SEALR AQUAMANTYS BIPLR SPNG SURGFOAM thrombin 5000units 6.0-798315 [id number] topical powder - [id number] Combo Med List Time Administered Route of [...] 30ml vancomycin 1Gm vial - vial - [id number] Combo Med List Time Administered Route of LOCAL TOPICAL Administration Dose Dose 1 Unit of Measure gram Volume Administered By HEIDE KAT TUTT, MATTHEW PAIGE, MD-SNU MD-SNU Procedure Irrigation Irrigant Volume In Irrigant Volume Out Last Modified By: ARCHIE BENITEZ RN WASSON, SANDRA D, RN 11/05/19 10:00:31 11/05/19 11:01:15 [facility] IntraOp Medication Admin Audit 11/05/19 11:01:15 Mix House Operator: WASSONSY Modifier: WASSONSY <+> 8 Medication/Irrigant <+> 8 Route of Administration <+> 8 Administered By <+> 8 Dose <+> 8 Unit of Measure [facility] IntraOp Patient Positioning Entry 1 Procedure Lumbar [...] Modified By: ARCHIE BENITEZ RN 11/05/19 09:44:47 [facility] IntraOp Sign In Entry 1 Patient, Site, [...] Modified By: ARCHIE BENITEZ RN 11/05/19 09:54:12 [facility] IntraOp Sign Out Entry 1 RN Confirmation [...] Modified By: ARCHIE BENITEZ RN 11/05/19 10:40:02 [facility] IntraOp Sign Out Audit 11/05/19 12:08:07 Mix House Operator: NIKI Modifier: NIKI <+> 1 RN Sign Out Signature Date/Time [facility] IntraOp Skin Prep Entry 1 Procedure Lumbar Fusion Posterior 3 Level Prescribed N/A Pre-Surgical Prep Completed Prep Area OP SITE AFTER ALCOHOL A ND HIBICLENS PREP PER DR KAT Intraop Prep Integumentary WDL Assessment WDL Prep Agents Alcohol, Chlorhexadine gluconate, DuraPrep Prep by ARCHIE BENITEZ RN Hair Removal Methods No hair removal performed Last Modified By: ARCHIE BENITEZ RN 11/05/19 09:57:03 [facility] IntraOp Skin Prep Audit 11/05/19 09:57:58 Mix House Operator: WASSONSY Modifier: WASSONSY 1 <+> Prep Agents 1 <+> Methods 1 <*> Procedure Lumbar Fusion Posterior 3 Level 1 <+> Prep by [facility] IntraOp Surgical Procedures Entry 1 Procedure Lumbar Fusion Posterior 3 Level Additional (THORACIC 6 - 9 FUSION Procedure EXTENSION WITH AIRO AND Description SCREW AUGMENTATION Primary Procedure Yes Primary Surgeon NORTH, HEIDE MORENO MD-SNU Start 11/05/19 09:27:00 Stop 11/05/19 11:37:00 Anesthesia Type General Specialty Neurosurgery Wound Class I - Clean Last Modified By: ARCHIE BENITEZ RN 11/05/19 12:01:30 [facility] IntraOp Surgical Procedures Audit 11/05/19 12:01:30 Mix House Operator: BRADYCM Modifier: WASSONSY 1 <*> Procedure Lumbar Fusion Posterior 3 Level 1 <*> Additional Procedure Description (THORACIC FUSION EXTENSION WITH AIRO WITH SCREW AUGMENTATION 11/05/19 11:40:16 Mix House Operator: WASSONSY Modifier: BRADYCM <+> 1 Stop 11/05/19 10:32:50 Mix House Operator: WASSONSY Modifier: WASSONSY 1 <*> Procedure Lumbar Fusion Posterior 3 Level 1 <*> Additional Procedure Description (THORACIC FUSION EXTENSION WITH AIRO) [facility] IntraOp Temp Regulation Devices Entry 1 Temp Regulation Temperature Warm blankets, Forced Regulation Device Air Warming device Temperature [id number] Regulation Device Serial/Unit Number Temperature Upper body Regulation Site Temperature Device 43 C Setting Temperature HARITHA FUNES APRN Regulation Device Applied by Last Modified By: ARCHIE BENITEZ RN 11/05/19 09:53:34 [facility] IntraOP Time Out Entry 1 Procedure to [...] Modified By: ARCHIE BENITEZ RN 11/05/19 09:37:28 [facility] IntraOp X-Ray and Images Entry 1 X-Ray/Imaging Type Other Fluoroscopy Type Other Site OP SITE Histologic Aide Name Claribel Monteiro, Family Service Caseworker X-Ray and Imaging BRAINLAB AIRO Comment INTRAOPERATAIVE CT SCANNER Last Modified By: ARCHIE BENITEZ RN 11/05/19 10:39:20 Case Comments <None> Finalized By: JUNIE ROWLEY Document Signatures Signed By: ARCHIE BENITEZ RN 11/05/19 12:08 JUNIE ROWLEY 11/06/19 17:47 Unfinalized History Date/Time Username Reason for Unfinalizing Freetext Reason for Unfinalizing 11/06/19 17:39 WATERIC Correct Billing Electronically signed by [facility] Conversion Plant Sprayer Cerner at 11/12/2022 9:52 PM CDT documented in this encounter Plan of Treatment Not on file documented as of this encounter Visit Diagnoses Not on filedocumented in this encounter
--- OUTSIDE RECORDS SUMMARY | 2025-03-24 12:26 | XMS_ITS | Encounter Summary ---
Author Organization [employer] ([place], [place], [place], [place]) Address [address] [place] [address] Care Team Providers Care Online Retailer Name Role Phone Unavailable Primary Care Provider Unavailabl e Encounter Details Date Type Department Care Team (Late st Contact Info) Description 11/06/2019 Transcribed Document [facility] Neurology - [address] [facility] [address] [place] [address] [place] [address] [place] [address] [address] [place] [id number] Social History Tobacco Use Types Packs/Day Years [...] 36.4 \ Radiology Results (Last 48 hours) [id number] -- 11/02/2019 02:59 CR Fluoro in OR [...]
--- OUTSIDE RECORDS SUMMARY | 2025-03-24 12:26 | XMS_ITS | Encounter Summary ---
Author Organization [email or web address] ([place], [place], [place], [place]) Address [address] [place] [address] Care Team Providers Care Knitting Machine Operator Automatic Name Role Phone Unavailable Primary Care Provider Unavailabl e Encounter Details Date Type Department Care Team (Late st Contact Info) Description 12/22/2018 Transcribed Document [facility] Family Medicine [address] [place] [address] ProviderAgnieszka MD [address] [place], [place] [id number] Social History Tobacco Use Types Packs/Day Years [...] Sleep apnea Orders: with brace Nate Woodard [facility] - 12/23/2018 11:06 EDT Visit Type, PT : Initial evaluation Patient Orders : Order Date Order Ordering MD 12/22/2018 17:40 Physical Therapy Eval and Treat Ordered By: HEIDE KAT MD-SNLanie Active Diagnoses : No Qualifying Diagnoses Admission Date : 12/22/2018 06:36 Personal Devices : Personal Devices No Devices Recorded Assistive Devices : Assistive Devices No Devices Recorded [facility] - 12/23/2018 10:57 EDT General Status [...] Treatment Time : 29 Minute(s) [facility] - 12/23/2018 11:06 EDT History and Environment Living Situation, Therapy : Home Patient Lives With : Spouse Persons Assisting Patient at Home : Spouse Persons Providing Information : Patient Home Equipment Therapy, PT : None Home Setup : One story Stairs : No [facility] - 12/23/2018 11:06 EDT Prior Level of Function PT GRID Prior LOF Ambulation, Household : Independent Prior LOF Ambulation, Community : Independent Prior LOF Bed Mobility : Independent Prior LOF Toileting : Independent Prior LOF Transfer : Independent [facility] - 12/23/2018 11:06 EDT Intervention Summary O2 Pre-Intervention : 2L O2 NC SpO2 Pre-Intervention : 100 % O2 During Intervention : Room air SpO2 During Intervention : 97 % O2 Post-Intervention : Room air. Nsg notified SpO2 Post-Intervention : 96 % [facility] - 12/23/2018 11:06 EDT Lower Extremity RLE Active ROM : WFL LLE Active ROM : WFL Nate Woodard, [facility] - 12/23/2018 11:06 EDT Right Lower Extremity MMT Knee Flexion (0-140) : 4/good Knee Extension (0-0) : 4/good Ankle Dorsiflexion (0-20) : 4/good Ankle Plantarflexion (0-45) : 4/good [facility], [facility] - 12/23/2018 11:06 EDT Left Lower Extremity MMT Knee Flexion (0-140) : 4/good Knee Extension (0-0) : 4/good Ankle Dorsiflexion (0-20) : 4/good Ankle Plantarflexion (0-45) : 4/good Nate Woodard, [facility] - 12/23/2018 11:06 EDT Functional Mobility Mobility Grid Bed Roll Right : Rehab Moderate assistance Bed Scooting : Rehab Moderate assistance Supine to Sit : Rehab Moderate assistance Sit to Stand : Rehab Minimal assistance (Comment: x 2 [Nate Woodard, [facility] - 12/23/2018 12:10 EDT] ) Stand to Sit : Rehab Minimal assistance (Comment: x 2 [Nate Woodard, [facility] - 12/23/2018 12:10 EDT] ) Nate Woodard, [facility] - 12/23/2018 11:06 EDT Bed Mobility Scooting Device : Cloth under pad Bed Comment : Patient had difficulty with initation of scooting Nate Woodard, [facility] - 12/23/2018 11:06 EDT Gait Training/Assessment, PT [...] decreased, Shuffling, Stride length, decreased Nate Woodard, [facility] - 12/23/2018 11:06 EDT Cognition Assessment, PT Orientation : Oriented x 4 Follows Basic Command Assessment : Patient needs extended time to process command [facility] - 12/23/2018 11:47 EDT Edu Topics Physical Therapy Education Grid Bed Mobility Training : Needs further teaching, Needs reinforcement Gait Training : Needs further teaching, Needs reinforcement Safety : Needs further teaching, Needs reinforcement Use of Assistive Device : Needs further teaching, Needs reinforcement Nate Woodard [facility] - 12/23/2018 11:47 EDT Indication Assesessment, PT Physical Therapy Indicated : Yes PT Problem List : Impaired, activities daily living, Impaired, bed mobility, Impaired, coordination/proprioception, Impaired, endurance tolerance, Impaired, gait, Impaired, joint mobility, Impaired, sitting balance, Impaired, standing balance, Impaired, transfers Potential Barriers To Therapy : Acuity of Illness Rehabilitation Potential : Good Nate Woodard [facility] - 12/23/2018 11:47 EDT Plan of Care, PT PT Tx Plan/Goals Established w Patient : Yes PT Frequency Rehab : Daily, twice (bid) PT Duration Rehab : Fourteen days PT Treatments Planned : Balance training, Bed mobility training, Caregiver training, Gait training, Pain management, Safety education, Transfer training Nate Woodard [facility] - 12/23/2018 11:47 EDT Short Term Goals Mobility/Bed Mobility STG PT Grid Goal #1 Activity : Supine to sit Assist : Supervision or set-up Date to Meet : 12/30/2018 EDT Goal Status : Initial goal [facility] - 12/23/2018 11:47 EDT Account Services Coordinator Goals Mobility/Bed Mobility LTG PT Grid Goal #1 Activity : Sit to stand Cues : Minimum verbal cues Assist : Supervision or set-up Date to Meet : 01/06/2019 EDT Goal Status : Intial Goal [facility] - 12/23/2018 11:47 EDT Ambulation LTG Grid Goal #1 Device : Walker, front wheel Distance : 200' Cues : Minimum verbal cues Assist : Supervision or set-up Date to Meet : 01/06/2019 EDT Goal Status : Intial Goal [facility] - 12/23/2018 11:47 EDT Treatment Note [...] safety, and decrease caregiver burden. [facility] - 12/23/2018 11:47 EDT Plan for Treatment : Cont. PT. PT has reviewed and agrees with note. JACQUI MCGUIRE, PT - 12/23/2018 12:10 EDT Pain Assessment Pain Scaled Used : 0-10 Pain scale Pain Score Pre-Intervention : 0 Pain Score During-Intervention : 0 Pain Score Post-Intervention. : 0 Nate Woodard, [facility] - 12/23/2018 11:47 EDT Image 1 - [...] Eval Moderate Complexity : 1 Nate Woodard [facility] - 12/23/2018 11:47 EDT documented in this encounter Plan of Treatment Not on file documented as of this encounter Visit Diagnoses Not on filedocumented in this encounter
--- OUTSIDE RECORDS SUMMARY | 2025-03-24 12:26 | XMS_ITS | Encounter Summary ---
Author Organization [employer] ([place], [place], [place], [place]) Address [address] [place] [address] Care Team Providers Care Splunk Consultant Name Role Phone Unavailable Primary Care Provider Unavailabl e Encounter Details Date Type Department Care Team (Late st Contact Info) Description 11/06/2019 Transcribed Document [facility] Neurology - [address] [facility] [address] [place] [address] Heide Akers MD [address] [facility] [address] [place] [id number] Social History Tobacco Use Types Packs/Day Years [...]
--- OUTSIDE RECORDS SUMMARY | 2025-03-24 12:26 | XMS_ITS | Encounter Summary ---
Author Organization [employer] ([place], [place], [place], [place]) Address [address] [place] [address] Care Team Providers Care Green Tire Inspector Name Role Phone Unavailable Primary Care Provider Unavailabl e Encounter Details Date Type Department Care Team (Late st Contact Info) Description 11/05/2019 Transcribed Document [facility] Family Medicine [facility] [place] [address] ProviderAgnieszka MD [address] [place], [place] [id number] Social History Tobacco Use Types Packs/Day Years [...] Intervention Information: acetaminophen Performed by Sonya Quezada, Business Continuity Consultant-Student Nurse on 11/05/2019 17:08:00 EDT acetaminophen,650mg Oral [...]
--- OUTSIDE RECORDS SUMMARY | 2025-03-24 12:26 | XMS_ITS | Clinical Summary ---
Author Organization [facility] Address [address] [place] [address] Care Team Providers Care Stone Hand Name Role Phone Faustino Jones MD Primary Care Provider [phone] Allergies No known active allergies Medications FLUoxetine [...] Health Maintenance Due Date Last Done Comments [facility]-Depression Screening 1950 [facility]-Infant/Child/Adol SDOH Screenings 1950 [facility]- SDOH Screenings 10/16/1967 [facility]-Adult SDOH Screenings 10/16/1967 [facility]-DTaP,Tdap,and Td Vaccines (1 - Tdap) 1968 CT Colonography 1994 FIT 1994 FOBT 1994 Sigmoidoscopy 1994 [facility]-Pneumococcal Vaccine: 50+ Years (1 of 1 - PCV) 10/16/1999 [facility]-Zoster Vaccines (1 of 2) 10/16/1999 [id number] Vaccine (5 - season) 2024 02/07/2022, 05/23/2021, 10/04/2020, Additional history [...] SCIENCES Stool Stool specimen / Unknown 01/23/2022 [facility] MO[facility]ST[facility] O RDERABLES Final Result EXACT SCIENCES * COLONOSCOPY (06/14/2019) Anatomical Region Laterality Modality Endoscopy Narrative 06/14/2019 Ordered by an unspecified provider. Historical Provider GI PROCEDURE ORDERABLES Nette l Result from Last 3 Months or Most Recently Relevant to Health Maintenance Insurance [id number] [place] [id number] [place] [address] Care Teams Stone Hand Relationship Specialty Start Date End Date Faustino Jones MD [address] [place] [address] #1 #1 [place] [id number] PCP - General 12/08/20
--- OUTSIDE RECORDS SUMMARY | 2025-03-24 12:26 | XMS_ITS | Encounter Summary ---
Author Organization [employer] ([place], [place], [place], [place]) Address [address] [place] [address] Care Team Providers Care Travel Counselor Name Role Phone Unavailable Primary Care Provider Unavailabl e Encounter Details Date Type Department Care Team (Late st Contact Info) Description 11/06/2019 Transcribed Document [facility] Family Medicine [address] [place] [address] ProviderAgnieszka MD [address] [place], [place] [id number] Social History Tobacco Use Types Packs/Day Years Used Date Smoking Tobacco: Never Assessed Sex and Gender Information Value Date Recorded Sex Assigned at Not on file Legal Sex Male 2:38 PM CDT Gender Identity Not on file Sexual Orientation Not on file documented as of this encounter Miscellaneous Notes * Cerner Conversion Note - Historical ProviderMD - 11/06/2019 1:02 PM CDT [facility] Main OR PACU Summary Primary Physician: HEIDE KAT MD-U Finalized Date/Time: 11/06/19 15:35:13 Pt. Name: SIMBA MAYEN JR/Sex: 1950 Male Med Rec #: [id number] Physician: LORENA SAGASTUME MD-INT Financial #: [id number] Pt. Type: I Room/Bed: [facility]/ Admit/Disch: 11/02/19 02:59:00 - Institution: [facility] Main OR PACU I Case Times Entry 1 In PACU I 11/06/19 14:45:00 Ready for PACU 11/06/19 15:20:00 Discharge Discharge from PACU 11/06/19 15:20:00 I Last Modified By: MOE PAIGE RN 11/06/19 15:34:56 [facility] Main OR PACU I Case Times Audit 11/06/19 15:34:56 Field Interviewer: KURTIS Modifier: KURTIS <+> 1 Ready for PACU Discharge <+> 1 Discharge from PACU I [facility] Main OR PACU Acuity Entry 1 Start Time 11/06/19 14:45:00 Stop Time 11/06/19 15:20:00 Acuity Level [facility] PACU Acuity I Last Modified By: MOE PAIGE RN 11/06/19 15:35:11 [facility] Main OR PACU Acuity Audit 11/06/19 15:35:11 Field Interviewer: KURTIS Modifier: KURTIS <+> 1 Stop Time Finalized By: MOE PAIGE, RN Document Signatures Signed By: MOE PAIGE RN 11/06/19 15:35 documented in this encounter Plan of Treatment Not on file documented as of this encounter Visit Diagnoses Not on filedocumented in this encounter
--- OUTSIDE RECORDS SUMMARY | 2025-03-24 12:26 | XMS_ITS | Encounter Summary ---
Author Organization [employer] ([place], [place], [place], [place]) Address [address] [place] [address] Care Team Providers Care Tank Builder Name Role Phone Unavailable Primary Care Provider Unavailabl e Encounter Details Date Type Department Care Team (Late st Contact Info) Description 11/06/2019 Transcribed Document [facility] Family Medicine [facility] [place] [address] ProviderAgnieszka MD [address], [place] [phone] Social History Tobacco Use Types Packs/Day Years [...]
--- OUTSIDE RECORDS SUMMARY | 2025-03-24 12:26 | XMS_ITS | Encounter Summary ---
Author Organization [employer] ([place], [place], [place], [place]) Address [address] [place] [address] Care Team Providers Care Mysql Database Administrator Name Role Phone Unavailable Primary Care Provider Unavailabl e Encounter Details Date Type Department Care Team (Late st Contact Info) Description 11/06/2019 Transcribed Document [facility] [address] [place] [address] ProviderAgnieszka MD [address] [place], [place] [address] Social History Tobacco Use Types Packs/Day Years [...]
--- OUTSIDE RECORDS SUMMARY | 2025-03-24 12:26 | XMS_ITS | Encounter Summary ---
Author Organization [employer] ([place], [place], [place], [place]) Address [address] [place] [address] Care Team Providers Care Monorail Crane Operator Name Role Phone Unavailable Primary Care Provider Unavailabl e Encounter Details Date Type Department Care Team (Late st Contact Info) Description 11/05/2019 Transcribed Document [facility] Family Medicine [address] [place] [address] ProviderAgnieszka MD [address] [place], [place] [address] Social History Tobacco Use Types Packs/Day Years [...] EDT Electronically signed by Gay [employer] Conversion Embossed Or Impressed Lettering Painter Cerner at 11/12/2022 9:50 PM CDT documented in this encounter Plan of Treatment Not on file documented as of this encounter Visit Diagnoses Not on filedocumented in this encounter
--- OUTSIDE RECORDS SUMMARY | 2025-03-24 12:26 | XMS_ITS | Encounter Summary ---
Author Organization [employer] ([place], [place], [place], [place]) Address [address] [place] [address] Care Team Providers Care Horse Show Manager Name Role Phone Unavailable Primary Care Provider Unavailabl e Encounter Details Date Type Department Care Team (Late st Contact Info) Description 11/06/2019 Transcribed Document [facility] Family Medicine [facility] [place] [address] ProviderAgnieszka MD [address] [place], [place] [phone] Social History Tobacco Use Types Packs/Day Years [...]
--- OUTSIDE RECORDS SUMMARY | 2025-03-24 12:26 | XMS_ITS | Encounter Summary ---
Author Organization [employer] ([place], [place], [place], [place]) Address [address] [place] [address] Care Team Providers Care Carpenter Form Name Role Phone Unavailable Primary Care Provider Unavailabl e Encounter Details Date Type Department Care Team (Late st Contact Info) Description 11/05/2019 Transcribed Document [facility] Family Medicine [address] [place] [address] ProviderAgnieszka MD [address] [place], [place] [address] Social History Tobacco Use Types Packs/Day Years [...]
--- OUTSIDE RECORDS SUMMARY | 2025-03-24 12:26 | XMS_ITS | Encounter Summary ---
Author Organization [employer] ([place], [place], [place], [place]) Address [address] [place] [address] Care Team Providers Care Warehouse Unloader Name Role Phone Unavailable Primary Care Provider Unavailabl e Encounter Details Date Type Department Care Team (Late st Contact Info) Description 11/05/2019 Transcribed Document [facility] [place] [facility] [place] [address] ProviderAgnieszka MD [address] [place], [place] [address] Social History Tobacco Use Types Packs/Day Years [...] MiraLax: 17 Gram, Oral, Daily, PRN: Constipation [place] 10 mg-325 mg oral tablet: 1 Tab, [...] mL: 2 Gram, 100 mL/Hr, IV Piggyback, [id number] hydrALAZINE: 10 mg, IV Push, Q6H, PRN: Hypertension lactobacillus acidophilus: 1 Cap, Oral, Daily lidocaine 1% preservative-free injectable solution: 0.5 mL, IntraDermal, 1-Time morphine: 2 mg, IV Push, Q2H, PRN: Pain (Severe 7-10) sodium chloride 0.9% injectable solution: 10 mL, IV Push, Q8H vancomycin + Sodium Chloride 0.9% intravenous solution 250 mL: 1,250 mg, 250 mL/Hr, IV Piggyback, [id number] Pending Complete fentaNYL: 25 mcg, IV Push, Q10Min Documented Medications Documented Azilect 1 mg oral tablet: 1 Tab, Oral, Daily, 30 Tab, 0 Refill(s) Remicade: 10 mg/kg, IntraVENous, [id number], for Ulcerative Colitis; Last dose: 09/29/2019, 0 [...] 0.9% 50 mL 2 Gram, IV Piggyback, [id number] docusate sodium 100 mg cap 100 mg 1 Cap, Oral, BID lactobacillus acidophilus cap 1 Cap, Oral, Daily lidocaine 1% *PF* inj 2 mL 0.5 mL, IntraDermal, 1-Time rasagiline 1 mg tab 1 mg 1 Tab, Oral, Daily vancomycin + NaCl 0.9% 250 mL 1,250 mg, IV Piggyback, [id number] Continuous: (1) lactated ringers 1,000 mL 1,000 [...] All Problems Parkinson disease / SNOMED CT 88717943 / Confirmed Scoliosis / SNOMED CT 434055933 / Confirmed Colitis / SNOMED CT 4085698840 / Confirmed Arthritis / SNOMED CT 2599994 / Confirmed 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
--- OUTSIDE RECORDS SUMMARY | 2025-03-24 12:26 | XMS_ITS | Encounter Summary ---
Author Organization [employer] ([place], [place], [place], [place]) Address [address] [place] [address] Care Team Providers Care Electric Frying Pan Repairer Name Role Phone Unavailable Primary Care Provider Unavailabl e Encounter Details Date Type Department Care Team (Late st Contact Info) Description 11/05/2019 Transcribed Document [facility] [place] [facility] [place] [address] ProviderAgnieszka MD [address] [place], [place] [id number] Social History Tobacco Use Types Packs/Day Years [...] STR when medically cleared to be released. [facility] following Historical Progress Note : Elvia stated that [facility] is following for patient placement. Patient is scheduled for surgery Friday11/05/19. Cm will continue to follow. ELKE VELÁZQUEZ, Fire Extinguisher Charger-Shot Lighter - 11/04/19 13:06:08 Patient is scheduled for an MRI on and surgery on Friday. He reported wanting to go to [facility]. Cm sent referral packet to [facility]. ELKE VELÁZQUEZ Fire Extinguisher Charger-Shot Lighter - 11/03/19 14:33:22 SAL BERRIOS RN-Care Management - 11/05/2019 12:46 EDT documented in this encounter Plan of Treatment Not on file documented as of this encounter Visit Diagnoses Not on filedocumented in this encounter
--- OUTSIDE RECORDS SUMMARY | 2025-03-24 12:26 | XMS_ITS | Encounter Summary ---
Author Organization [employer] ([place], [place], [place], [place]) Address [address] [place] [address] Care Team Providers Care Hand Finisher Name Role Phone Unavailable Primary Care Provider Unavailabl e Encounter Details Date Type Department Care Team (Late st Contact Info) Description 11/06/2019 Transcribed Document [facility] [place] Family Medicine [address] [place] [address] ProviderAgnieszka MD [address] [place], [place] [phone] Social History Tobacco Use Types Packs/Day Years Used Date Smoking Tobacco: Never Assessed Sex and Gender Information Value Date Recorded Sex Assigned at Not on file Legal Sex Male 2:38 PM CDT Gender Identity Not on file Sexual Orientation Not on file documented as of this encounter Miscellaneous Notes * Cerner Conversion Note - Historical ProviderMD - 11/06/2019 2:00 AM CDT Supervising Airplane Pilot Details Entered On: 11/06/2019 1:59 EDT Performed [...]
--- OUTSIDE RECORDS SUMMARY | 2025-03-24 12:26 | XMS_ITS | Encounter Summary ---
Author Organization [employer] ([place], [place], [place], [place]) Address [address] [place] [address] Care Team Providers Care Americanization Teacher Name Role Phone Unavailable Primary Care Provider Unavailabl e Encounter Details Date Type Department Care Team (Late st Contact Info) Description 11/06/2019 Transcribed Document [facility] [place] [facility] [place] [address] ProviderAgnieszka MD [address] [place], [place] [phone] Social History Tobacco Use Types Packs/Day Years [...] 11/06/2019 16:19 EDT Electronically signed by T[facility] Conversion Inspector Filter Tip Evelio at 11/12/2022 9:39 PM CDT documented in this encounter Plan of Treatment Not on file documented as of this encounter Visit Diagnoses Not on filedocumented in this encounter
--- OUTSIDE RECORDS SUMMARY | 2025-03-24 12:26 | XMS_ITS | Encounter Summary ---
Author Organization [employer] ([place], [place], [place], [place]) Address [address] [place] [address] Care Team Providers Care Drop Crew Laborer Name Role Phone Unavailable Primary Care Provider Unavailabl e Encounter Details Date Type Department Care Team (Late st Contact Info) Description 11/05/[address] [facility] [place] Family Medicine [facility] [place] [address] ProviderAgnieszka MD [address], [place] [phone] Social History Tobacco Use Types Packs/Day Years [...] Diagnoses: None Author: BROOKS GORE, [facility] 69yoM with Low Back Pain - R/O [...]
--- OUTSIDE RECORDS SUMMARY | 2025-03-24 12:26 | XMS_ITS | Encounter Summary ---
Author Organization [employer] ([place], [place], [place], [place]) Address [address] [place] [address] Care Team Providers Care Process Controls Technician Name Role Phone Unavailable Primary Care Provider Unavailabl e Encounter Details Date Type Department Care Team (Late st Contact Info) Description 11/06/2019 Transcribed Document [facility] Family Medicine [address] [place] [address] ProviderAgnieszka MD [address], [place] [phone] Social History Tobacco Use Types Packs/Day Years [...]
--- OUTSIDE RECORDS SUMMARY | 2025-03-24 12:26 | XMS_ITS | Encounter Summary ---
Author Organization [email or web address] ([place], [place], [place], [place]) Address [address] [place] [address] Care Team Providers Care Pet Handler Name Role Phone Unavailable Primary Care Provider Unavailabl e Encounter Details Date Type Department Care Team (Late st Contact Info) Description 12/22/2018 Transcribed Document [facility] Neurology - [address] [employer] [facility] [address] [place] [id number] Mark Akers MD [address] [facility] [address] [place] [address] Social History Tobacco Use Types Packs/Day [...] CT scan with stereotactic navigation using the [place] REO. SURGEON: Mark Akers MD SUPERVISOR ADULT EDUCATION: Bing Siegrist TYPE OF ANESTHESIA: GEA. DESCRIPTION OF PROCEDURE [...] to iliac trajectory. With all instrument the OyaGen system was utilized. With all screws in [...] M.D. CC2: Dr. Faustino Jones; [address] , [facility], [address], [place] [address] documented in this encounter Plan of Treatment Not on file documented as of this encounter Visit Diagnoses Not on filedocumented in this encounter
--- OUTSIDE RECORDS SUMMARY | 2025-03-24 12:26 | XMS_ITS | Encounter Summary ---
Author Organization [employer] ([place], [place], [place], [place]) Address [address] [place] [address] Care Team Providers Care Cylinder Machine Operator Pulp Drier Name Role Phone Unavailable Primary Care Provider Unavailabl e Encounter Details Date Type Department Care Team (Late st Contact Info) Description 11/06/2019 Transcribed Document [facility] [place] [address] ProviderAgnieszka MD [address] [place], [place] [id number] Social History Tobacco Use Types Packs/Day Years [...] cultures Thank You, Nate Calles, PharmD PGY1 Manager Program Management Pager: [phone], Ext. [phone] documented in this encounter Plan of Treatment Not on file documented as of this encounter Visit Diagnoses Not on filedocumented in this encounter
--- OUTSIDE RECORDS SUMMARY | 2025-03-24 12:26 | XMS_ITS | Encounter Summary ---
Author Organization [employer] ([place], [place], [place], [place]) Address [address] [place] [address] Care Team Providers Care Fire Chief Deputy Name Role Phone Unavailable Primary Care Provider Unavailabl e Encounter Details Date Type Department Care Team (Late st Contact Info) Description 11/06/2019 Transcribed Document [facility] Radiology [address] [place] [address] Carlo Evans MD [address] [place], [place] [id number] Social History Tobacco Use Types Packs/Day Years [...] well nourished, no acute distress]. Neurologic: [Equal inspector toys strength bilaterally, no movement or feeling in [...] Vanc, PICC ordered 11/04 in prep for mcc abx -Patient hemodynamically stable, afebrile -NSY following: [...] following. ID following, PICC in place, needs mcc abx recs prior to discharge. Awaiting PT/OT [...] Lymph # 1.33 x10(3)/uL 11/06/2019 05:53 EDT [place] % 13.8 % (High) 11/06/2019 05:53 EDT [place] # 0.99 K/uL 11/06/2019 05:53 EDT [place] [...]
--- OUTSIDE RECORDS SUMMARY | 2025-03-24 12:26 | XMS_ITS | Encounter Summary ---
Author Organization [employer] ([place], [place], [place], [place]) Address [address] [place] [address] Care Team Providers Care Pigment Presser Name Role Phone Unavailable Primary Care Provider Unavailabl e Encounter Details Date Type Department Care Team (Late st Contact Info) Description 12/22/2018 Transcribed Document [facility] [place] [facility] [place] [address] ProviderAgnieszka MD [address] [place], [place] [id number] Social History Tobacco Use Types Packs/Day Years Used Date Smoking Tobacco: Never Assessed Sex and Gender Information Value Date Recorded Sex Assigned at Not on file Legal Sex Male 2:38 PM CDT Gender Identity Not on file Sexual Orientation Not on file documented as of this encounter Miscellaneous Notes * Cerner Conversion Note - Historical ProviderMD - 12/22/2018 1:14 PM CDT [facility] Main OR PACU Summary Primary Physician: HEIDE KAT MD-[facility] Finalized Date/Time: 12/22/18 21:02:24 Pt. Name: SIMBA MAYEN JR/Sex: 1950 Male Med Rec #: [id number] Physician: HEIDE KAT MD-SN Financial #: [id number] Pt. Type: I Room/Bed: 63/1 Admit/Disch: 12/22/18 06:36:00 - Institution: [facility] Main OR PACU I [...]
--- OUTSIDE RECORDS SUMMARY | 2025-03-24 12:26 | XMS_ITS | Encounter Summary ---
Author Organization [employer] ([place], [place], [place], [place]) Address [address] [place] [address] Care Team Providers Care Manager Resource Name Role Phone Unavailable Primary Care Provider Unavailabl e Encounter Details Date Type Department Care Team (Late st Contact Info) Description 11/06/2019 Transcribed Document [facility] [place] [facility] [place] [address] ProviderAgnieszka MD [address], [place] [id number] Social History Tobacco Use Types Packs/Day Years [...]
--- OUTSIDE RECORDS SUMMARY | 2025-03-24 12:26 | XMS_ITS | Encounter Summary ---
Author Organization [employer] ([place], [place], [place], [place]) Address [address] [place] [address] Care Team Providers Care Electronics Engineering Technician Name Role Phone Unavailable Primary Care Provider Unavailabl e Encounter Details Date Type Department Care Team (Late st Contact Info) Description 11/06/2019 Transcribed Document [facility] [place] [address] [place] [address] ProviderAgnieszka MD [address], [place] [id number] Social History Tobacco Use Types Packs/Day Years [...]
--- OUTSIDE RECORDS SUMMARY | 2025-03-24 12:26 | XMS_ITS | Encounter Summary ---
Author Organization [employer] ([place], [place], [place], [place]) Address [address] [place] [address] Care Team Providers Care Hospital Orderly Name Role Phone Unavailable Primary Care Provider Unavailabl e Encounter Details Date Type Department Care Team (Late st Contact Info) Description 11/06/2019 Transcribed Document [facility] Neurology - [address] [facility] [address] [place] [address] Mark Akers MD [address] [place] [address] Social History Tobacco Use Types [...] LOSS: 150 mL. DRAINS: Sam-Burger. COMPLICATIONS: None. /[id number] Mark Akers MD MPT/AQ / MPT / MODL /[id number] documented in this encounter Plan of Treatment Not on file documented as of this encounter Visit Diagnoses Not on filedocumented in this encounter
--- OUTSIDE RECORDS SUMMARY | 2025-03-24 12:26 | XMS_ITS | Encounter Summary ---
Author Organization [employer] ([place], [place], [place], [place]) Address [address] [place] [address] Care Team Providers Care Mechanic Foreman Name Role Phone Unavailable Primary Care Provider Unavailabl e Encounter Details Date Type Department Care Team (Late st Contact Info) Description 12/22/2018 Transcribed Document [facility] [place] [facility] [place] [address] ProviderAgnieszka MD [address] [place], [place] [id number] Social History Tobacco Use Types Packs/Day Years [...] form. Electronically signed by Gay Centeno Conversion Assistive Technology Specialist Cerner at 11/12/2022 9:32 PM CDT documented in this encounter Plan of Treatment Not on file documented as of this encounter Visit Diagnoses Not on filedocumented in this encounter
[2025-03-24] MEDS: VEDOLIZUMAB 300 MG in 0.9 % SODIUM CHLORIDE 250 ML 500 MG IV (12:57)
[2025-03-24 13:00] VITALS: BP 146/90; PULSE 78; RESP 18; O2SAT 99
[2025-03-24 13:43] VITALS: BP 128/69; PULSE 90; RESP 18; O2SAT 99
== END 2025-03-24 13:43 | disposition home or self-care (01) ==
LOC: INF 12:19
PROVIDERS: PCP Family Medicine; Visit Provider Internal Medicine Medical Oncology
DX: K51.90 Ulcerative colitis, unspecified, without complications (principal)
CPT/HCPCS: 96413; J3380; J7050

== ENCOUNTER 2025-04-18 12:18 | Outpatient (CLI) | payer MEDICARE, OTHER, SELFPAY ==
--- OUTSIDE RECORDS SUMMARY | 2025-04-18 12:21 | XMS_ITS | Clinical Summary ---
Author Organization [facility] Address [address] [place] [address] Phone Care Team Providers Care Animal Nutrition Teacher Name Role Phone Alyssa Otero MD [ ] Conditions or Problems Problem Name Problem Code Onset Date Status Entry Date Provider Comment Standard Description Annotate Decubitus ulcer 702130547 (SNOMED CT) 12/14 Active 12/14 Janae [place] Pressure ulcer Candidiasis, skin 75599180 (SNOMED CT) 12/14 Active 12/14 Janae [place] Candidiasis of skin Diarrhea, antibiotic associated 495616215 (SNOMED CT) 12/14 Active 12/14 Janae [place] Antibiotic-ass ociated diarrhea Abscess, epidural G06.1 (ICD-10-CM) 12/13 Active 12/13 Joslyn Tim 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, thoracic region M46.24 (ICD-10-CM) 12/13 Active 12/13 Joslyn Tim Osteomyelitis of vertebra, thoracic region Pseudomonas infection 93879404 (SNOMED CT) 12/13 Active 12/13 Joslyn Tim Bacterial infection caused by Pseudomonas Positive blood cultures 021246250 (SNOMED CT) 12/13 Active 12/13 Joslyn Tim Organism isolated by microbial culture Benign Essential Hypertension 3747835 (SNOMED CT) 12/13 Active 12/13 Joslyn Tim Benign essential hypertension 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, 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 (ICD-10-CM) 12/13 Active 12/13 Joslyn Tim Rheumatoid arthritis without rheumatoid factor, multiple sites RA with rheumatoid factor, multiple sites M05.79 (ICD-10-CM) 12/13 Active 12/13 Joslyn Dumont Rheumatoid arthritis with rheumatoid factor of multiple sites without organ or systems involvement Parkinson's disease 20960956 (SNOMED CT) 12/13 Active 12/13 Joslyn Dumont Parkinson's disease Medications Medication Instructions Start Date Stop Date Generic Name NDC Provider CEFEPIME HCL 2 GM INJECTION SOLUTION RECONSTITUTED 2 gms IV Q 12 hours/Bioscript s/Wedco 12/14 CEFEPIME HCL 50207457032 Janae Castaneda NYSTATIN POWD apply to groin rash bid NYSTATIN 79949822066 Alyssa Otero MD FLUCONAZOLE 200 MG TABS 1 tablet FLUCONAZOLE 95750077282 Alyssa Otero MD CEFEPIME HCL 2 GM INJECTION SOLUTION RECONSTITUTED 2 gms IV Q 12 hours/Bioscript s/Wedco 09/23 CEFEPIME HCL 67095777420 Monica Sepulveda RN SENNA 8.6 MG TABS Take one by mouth daily SENNOSIDES 66224784525 Eva Dodson MIRALAX ORAL PACKET 17 g daily POLYETHYLENE GLYCOL 3350 72607123638 Eva Dodson OXYCODONE HCL 5 MG CAPS Q6H/PRN OXYCODONE HCL 07363452136 Eva Dodson OXYBUTYNIN CHLORIDE ER 5 MG XQ03E-RUN Take by mouth twice a day OXYBUTYNIN CHLORIDE 67228582993 Eva Dodson MICONAZOLE NITRATE 2 % POWD applt twice daily MICONAZOLE NITRATE 09455602631 Eva Dodson CVS MELATONIN 5 MG TABS Take one by mouth daily MELATONIN 15041396045 Eva Dodson MEGESTROL ACETATE 40 MG/ML SUSP 10Milliliter* *OralTwoJeramy esPerDay MEGESTROL ACETATE 58400583853 Eva Dodson ANUCORT-HC 25 MG SUPP take as needed HYDROCORTISONE ACETATE 81114309452 Eva Dodson DIAZEPAM 2 MG TABS Take by mouth twice a day DIAZEPAM 61881683257 Eva Dodson VITAMIN D (CHOLECALCIFEROL ) 25 MCG (1000 UT) CAPS Take one by mouth daily CHOLECALCIFEROL 67479298914 Eva Dodson BISACODYL 10 MG SUPP once daily BISACODYL 74950644519 Eva Dodson BALSAM AMIE-CASTOR OIL OINT 1Application* *TopicalTwo TimesPerDay BALSAM AMIE-CASTOR OIL 28817045066 Eva Dodson BACLOFEN 10 MG TABS Take one by mouth four times daily, morning, noon, early evening and bedtime. BACLOFEN 35998612679 Eva Dodson AMANTADINE HCL 100 MG CAPS Take by mouth twice a day AMANTADINE HCL 32650933785 Eva Dodson ACETAMINOPHEN 325 MG TABS Q6H/PRN ACETAMINOPHEN 29807409576 Eva Dodson AMLODIPINE BESYLATE 10 MG TABS Take one by mouth daily AMLODIPINE BESYLATE 55605226146 Eva Dodson ACIDOPHILUS LACTOBACILLUS CAPS Take one by mouth daily LACTOBACILLUS 27931015085 Eva Dodson CARBIDOPA-LEVODO PA 25-100 MG TABS Take one by mouth four times daily, morning, noon, early evening and bedtime. CARBIDOPA-LEVODOP A 81215436955 Eva Dodson AZILECT 1 MG TABS Take one by mouth daily RASAGILINE MESYLATE 27613559226 Eva Dodson Medications Administered No information available. [...] or Plasma ALK PHOS 84 U/L Alkaline nafi sphatase [Enzymatic activity/volume] in Blood CREATININE 1.1 [...] medications (procedure) SMOK STATUS Never smoker Toba enterprise account manager smoking status Plan of Care No information [...]
--- OUTSIDE RECORDS SUMMARY | 2025-04-18 12:21 | XMS_ITS | Clinical Summary ---
Author Organization [facility] Address [address] [place] [address] Care Team Providers Care Crude Oil Treater Name Role Phone Faustino Jones MD Primary Care Provider [phone] Allergies No known active allergies Medications FLUoxetine [...] Date Last Done Comments [facility]-Depression Screening 1950 [facility]-/Child/Adol SDOH Screenings 1950 [facility]- SDOH Screenings 10/16/1967 [facility]-Adult SDOH Screenings 10/16/1967 [facility]-DTaP,Tdap,and Td Vaccines (1 - Tdap) 1968 CT Colonography 1994 FIT 1994 FOBT 1994 Sigmoidoscopy 1994 [facility]-Pneumococcal Vaccine: 50+ Years (1 of 1 - PCV) 10/16/1999 [facility]-Zoster Vaccines (1 of 2) 10/16/1999 [facility]-RSV Vaccine: 60+ Years or (1 - 1-dose 75+ series) 2024 FIT-DNA 01/23/2025 01/23/2022 RTE-SYVNP-72 Vaccine (5 - 2024-26 season) 2025 02/07/2022, 05/23/2021, 10/04/2020, Additional history exists [facility]-Influenza Vaccine (#1) 03/28/202505/22, 05/16/2020, 04/22/2019, Additional [...] Recently Relevant to Health Maintenance Insurance [address] [place] [address] [place] [address] Care Teams Crude Oil Treater Relationship Specialty Start Date End Date Faustino Jones MD [address] [place] [address] #1 #1 AYRY Cohen [address] PCP - General 12/08/20
--- NOTE | 2025-04-18 12:22 | XR_ITS ---
FINAL REPORT CLINICAL HISTORY: left ankle pain FINDINGS: LEFT ANKLE Three views demonstrate no definite acute bony abnormality. Exam is limited due to osteopenia. There is degenerative joint disease. There is rather prominent soft tissue edema. IMPRESSION: Limited exam secondary to osteopenia. No definite fracture. Prominent soft tissue edema. Consider MRI if clinically indicated. Reviewed, Interpreted and Dictated by Iona Delgado MD Transcribed by Katy Chin Authenticated and [facility]
--- NOTE | 2025-04-18 12:22 | XR_ITS ---
FINAL REPORT CLINICAL HISTORY: left foot pain FINDINGS: LEFT FOOT Three views of the left foot demonstrate lucency within the distal aspect of the first proximal phalanx which could represent age-indeterminate fracture. Bones are osteopenic. There is irregularity of the lateral malleolus which was not confirmed on the ankle series. Multijoint degenerative disease is seen. There is diffuse soft tissue edema. IMPRESSION: Age-indeterminate fracture of the head of the first proximal phalanx. Irregularity of the lateral malleolus, not seen on ankle exam which was severely limited by osteopenia. Consider MRI for further evaluation. Reviewed, Interpreted and Dictated by Iona Delgado MD Transcribed by Katy Chin Authenticated and [facility]
== END 2025-04-18 23:59 | disposition home or self-care (01) ==
LOC: RAD 12:19
PROVIDERS: PCP Family Medicine; Visit Provider Physician Assistant Surgical
DX: S92.412A Displaced fracture of proximal phalanx of left great toe, initial encounter for closed fracture; X58.XXXA Exposure to other specified factors, initial encounter; M85.872 Other specified disorders of bone density and structure, left ankle and foot; M19.072 Primary osteoarthritis, left ankle and foot
CPT/HCPCS: 73610; 73630

== ENCOUNTER 2025-05-19 12:33 | Outpatient (CLI) | payer MEDICARE, OTHER, SELFPAY ==
[2025-05-19] MEDS: VEDOLIZUMAB 300 MG in 0.9 % SODIUM CHLORIDE 250 ML 500 MG IV (13:47)
--- OUTSIDE RECORDS SUMMARY | 2025-05-19 14:16 | XMS_ITS | Encounter Summary ---
Author Organization [employer] ([place], [place], [place], [place]) Address [address] [place] [address] Care Team Providers Care Supervisor Nutritional Yeast Name Role Phone Unavailable Primary Care Provider Unavailabl e Encounter Details Date Type Department Care Team (Late st Contact Info) Description 11/02/2019 Transcribed Document [facility] [place] Medicine [address] [place] [address] ProviderAgnieszka MD [address] [place], [place] [address] Social History Tobacco Use Types Packs/Day Years [...]
--- OUTSIDE RECORDS SUMMARY | 2025-05-19 14:16 | XMS_ITS | Encounter Summary ---
Author Organization [employer] ([place], [place], [place], [place]) Address [address] [place] [address] Care Team Providers Care Outreach Rep Name Role Phone Unavailable Primary Care Provider Unavailabl e Encounter Details Date Type Department Care Team (Late st Contact Info) Description 11/02/2019 Transcribed Document [facility] [place] [address] [place] [address] ProviderAgnieszka MD [address] [place], [place] [address] Social History Tobacco Use Types Packs/Day Years [...] booklet; He reported he would call for corporate tax manager if/when he is ready to complete a Living Will KOBI PALACIOS - 11/02/2019 10:48 EDT documented in this encounter Plan of Treatment Not on file documented as of this encounter Visit Diagnoses Not on filedocumented in this encounter
--- OUTSIDE RECORDS SUMMARY | 2025-05-19 14:16 | XMS_ITS | Encounter Summary ---
Author Organization [employer] ([place], [place], [place], [place]) Address [address] [place] [address] Care Team Providers Care Air Quality Technician Name Role Phone Unavailable Primary Care Provider Unavailabl e Encounter Details Date Type Department Care Team (Late st Contact Info) Description 11/02/2019 Transcribed Document [facility] [place] [facility] [place] [address] ProviderAgnieszka MD [address], [place] [address] Social History Tobacco Use Types Packs/Day Years [...] On: 11/02/2019 3:33 EDT by Teresa Mohamud Dog Food Shredder Operator Process Patient Disposition : Admit/Observe Personal Belongings [...] Teresa Mohamud Rn - 11/02/2019 3:33 EDT Electronically signed by Gay Centeno Conversion Paraffin Plant Sweater Operator Cerner at 11/12/2022 9:37 PM CDT documented in this encounter Plan of Treatment Not on file documented as of this encounter Visit Diagnoses Not on filedocumented in this encounter
--- OUTSIDE RECORDS SUMMARY | 2025-05-19 14:16 | XMS_ITS | Encounter Summary ---
Author Organization [employer] ([place], [place], [place], [place]) Address [address] [place] [address] Care Team Providers Care Coke Oven Patcher Name Role Phone Unavailable Primary Care Provider Unavailabl e Encounter Details Date Type Department Care Team (Late st Contact Info) Description 11/02/2019 Transcribed Document [facility] [place] [facility] [place] [address] ProviderAgnieszka MD [address], [place] [address] Social History Tobacco Use Types Packs/Day Years [...]
--- OUTSIDE RECORDS SUMMARY | 2025-05-19 14:16 | XMS_ITS | Encounter Summary ---
Author Organization [employer] ([place], [place], [place], [place]) Address [address] [place] [address] Care Team Providers Care Numerical Control Tool Programmer Name Role Phone Unavailable Primary Care Provider Unavailabl e Encounter Details Date Type Department Care Team (Late st Contact Info) Description 11/02/2019 Transcribed Document [facility] [place] [facility] [place] [address] ProviderAgnieszka MD [address] [place], [place] [address] Social History Tobacco Use Types Packs/Day Years [...] MiraLax: 17 Gram, Oral, Daily, PRN: Constipation [place] 5 mg-325 mg oral tablet: 1.5 Tab, [...] mL: 1,250 mg, 250 mL/Hr, IV Piggyback, [id number] Documented Medications Documented Azilect 1 mg oral tablet: 1 Tab, Oral, Daily, 30 Tab, 0 Refill(s) Remicade: 10 mg/kg, IntraVENous, [id number], for Ulcerative Colitis; Last dose: 09/29/2019, 0 [...] EDT Height Source Stated Height Entry Format [place] Height/Length, AMERICAN (ft) 5 ft Height/Length AMERICAN 9 Inch CLINICALHEIGHT 175.26 cm [place] Body Weight 70 kg Weight Source Standing scale Weight Entry Format [place] Weight Tajik lb 178 lb Weight Tajik oz 6 oz CLINICALWEIGHT 81.08 kg Body Surface Area (BSA) 1.97 m2 Body Mass Index 26.4 kg/m2 HI 11/02/2019 0:47 EDT Height Source Stated Height Entry Format [place] Height/Length, AMERICAN (ft) 5 ft Height/Length AMERICAN 9 Inch CLINICALHEIGHT 175.26 cm [place] Body Weight 69.73 kg Weight Source, ED Critical estimated dosing weight Weight Entry Format Flo Weight Tajik lb 205 lb CLINICALWEIGHT 93.18 kg Body [...] therapy -- probiotic Electronically signed by Taryn [facility] Conversion Fitter Placer Cerner at 11/12/2022 9:34 PM CDT documented in this encounter Plan of Treatment Not on file documented as of this encounter Visit Diagnoses Not on filedocumented in this encounter
--- OUTSIDE RECORDS SUMMARY | 2025-05-19 14:16 | XMS_ITS | Encounter Summary ---
Author Organization [employer] ([place], [place], [place], [place]) Address [address] [place] [address] Care Team Providers Care Foster Care Therapist Name Role Phone Unavailable Primary Care Provider Unavailabl e Encounter Details Date Type Department Care Team (Late st Contact Info) Description 11/02/2019 Transcribed Document [facility] [place] [facility] [place] [address] ProviderAgnieszka MD [address], [place] [address] Social History Tobacco Use Types Packs/Day Years [...] 1950 Associated Diagnoses: None Author: BROOKS GORE, [facility] 69yoM with Low Back Pain - [...] to follow Thank You, Brooks Gore RPh documented in this encounter Plan of Treatment Not on file documented as of this encounter Visit Diagnoses Not on filedocumented in this encounter
--- OUTSIDE RECORDS SUMMARY | 2025-05-19 14:17 | XMS_ITS | Encounter Summary ---
Author Organization [employer] ([place], [place], [place], [place]) Address [address] [place] [address] Care Team Providers Care Sample Mounter Name Role Phone Unavailable Primary Care Provider Unavailabl e Encounter Details Date Type Department Care Team (Late st Contact Info) Description 11/02/2019 Transcribed Document [facility] [place] [address] [place] [address] ProviderAgnieszka MD [address], [place] [address] Social History Tobacco Use Types Packs/Day Years [...]
--- OUTSIDE RECORDS SUMMARY | 2025-05-19 14:17 | XMS_ITS | Encounter Summary ---
Author Organization [employer] ([place], [place], [place], [place]) Address [address] [place] [address] Care Team Providers Care Hot Plate Plywood Press Offbearer Name Role Phone Unavailable Primary Care Provider Unavailabl e Encounter Details Date Type Department Care Team (Late st Contact Info) Description 12/23/2018 Transcribed Document [facility] [place] [facility] [place] [address] ProviderAgnieszka MD [address] [place], [place] [address] Social History Tobacco Use Types Packs/Day Years [...] NP-SABRA 12/23/18 cc: medical management - awaiting R98-bipre PLIF per Dr. Akers S: Doing fine No fevers, chills, sweats No shortness of breath, cough No Chest pain, palpitations, syncope No nausea, vomiting, -flatus, -BM +sotomayor anchored + post-op back pain HPI: Patient is a 68 yo male admitted to [facility] per Dr. Akers for a A65-fuinw PLIF. Preoperatively patient was found to have [...] mmol/L 12/23/2018 04:01 Chloride Level 113 mmol/L [place] 12/23/2018 04:01 Carbon Dioxide Level 25 mmol/L 12/23/2018 04:01 Anion Gap 9 12/23/2018 04:01 Blood Urea Nitrogen 13 mg/dL 12/23/2018 04:01 Glucose Level 100 mg/dL 12/23/2018 04:01 Calcium Level 7.3 mg/dL LOW 12/23/2018 04:01 Creatinine Level 0.90 mg/dL 12/23/2018 04:01 Impression: spondylolisthesis Lspine; awaiting T71-hlexh PLIF per Dr. Akers hx Arthritis hx [...] list: All Problems Arthritis / SNOMED CT 5166121 / Confirmed Colitis / SNOMED CT 7071565045 / Confirmed DJD (degenerative joint disease) of thoracic spine / SNOMED CT 8780174875 / Confirmed History of obstructive sleep apnea / IMO [id number] / Confirmed Parkinson disease / SNOMED CT 59868163 / Confirmed Scoliosis / SNOMED CT 500334663 / Confirmed, Active Problems (6) Arthritis Colitis [...] (DECEMBER 22 10:00) Electronically signed by Taryn, [facility] Conversion Sheriff Sergeant Cerner at 11/12/2022 9:52 PM CDT documented in this encounter Plan of Treatment Not on file documented as of this encounter Visit Diagnoses Not on filedocumented in this encounter
--- OUTSIDE RECORDS SUMMARY | 2025-05-19 14:17 | XMS_ITS | Encounter Summary ---
Author Organization [employer] ([place], [place], [place], [place]) Address [address] [place] [address] Care Team Providers Care Adjuster Name Role Phone Unavailable Primary Care Provider Unavailabl e Encounter Details Date Type Department Care Team (Late st Contact Info) Description 11/08/2019 Transcribed Document [facility] [place] [facility] [place] [address] ProviderAgnieszka MD [address] [place], [place] [address] Social History Tobacco Use Types Packs/Day Years [...] mL: 2 Gram, 200 mL/Hr, IV Piggyback, [id number] docusate sodium: 200 mg, Oral, BID heparin: [...] mL: 1,250 mg, 250 mL/Hr, IV Piggyback, [id number] Pending Complete fentaNYL: 25 mcg, IV Push, Q10Min Documented Medications Documented Azilect 1 mg oral tablet: 1 Tab, Oral, Daily, 30 Tab, 0 Refill(s) Remicade: 10 mg/kg, IntraVENous, [id number], for Ulcerative Colitis; Last dose: 09/29/2019, 0 [...] Dr. Akers, plan is to get to [facility] soon. Alyssa Bowens MD saw and examined patient, verified findings, reviewed labs and radiographic data, formulated diagnosis, plan for treatment, and all medical decision making. Stef Villalobos PA-C for Dr. Robson Bowens. documented in this encounter Plan of Treatment Not on file documented as of this encounter Visit Diagnoses Not on filedocumented in this encounter
--- OUTSIDE RECORDS SUMMARY | 2025-05-19 14:17 | XMS_ITS | Encounter Summary ---
Author Organization [employer] ([place], [place], [place], [place]) Address [address] [place] [address] Care Team Providers Care Acid Remover Name Role Phone Unavailable Primary Care Provider Unavailabl e Encounter Details Date Type Department Care Team (Late st Contact Info) Description 11/02/2019 Transcribed Document [facility] [place] [facility] [place] [address] ProviderAgnieszka MD [address] [place], [place] [address] Social History Tobacco Use Types Packs/Day Years [...] Communication Barrier : None Primary Language : Monegasque Any Spiritual/Cultural Needs or Requests : No [...]
--- OUTSIDE RECORDS SUMMARY | 2025-05-19 14:17 | XMS_ITS | Encounter Summary ---
Author Organization [employer] ([place], [place], [place], [place]) Address [address] [place] [address] Care Team Providers Care News Anchor Name Role Phone Unavailable Primary Care Provider Unavailabl e Encounter Details Date Type Department Care Team (Late st Contact Info) Description 11/02/2019 Transcribed Document [facility] [place] [address] [place] [address] ProviderAgnieszka MD [address], [place] [id number] Social History Tobacco Use Types Packs/Day Years [...]
--- OUTSIDE RECORDS SUMMARY | 2025-05-19 14:17 | XMS_ITS | Encounter Summary ---
Author Organization [employer] ([place], [place], [place], [place]) Address [address] [place] [address] Care Team Providers Care Photo Mask Processor Name Role Phone Unavailable Primary Care Provider Unavailabl e Encounter Details Date Type Department Care Team (Late st Contact Info) Description 12/24/2018 Transcribed Document [facility] Radiology [address] [place] [address] Ivana Salcido MD [facility] [address] [address] Social History Tobacco Use Types [...] MARK PA-SABRA 12/24/18 cc: medical management s/p [id number]-[id number] PLIF per Dr. Akers S: pt is [...] is a 68 yo male admitted to [facility] per Dr. Akers for a S32-hruyv PLIF. Preoperatively patient was found to have [...] mL/Min 12/24/2018 05:30 Impression: spondylolisthesis Lspine; s/p V74-jeclm PLIF per Dr. Akers mild tachycardia, ?pain [...] mg while at hospital Pending DC to [facility] Acute today per DC systems planner and Dr. Akers wean O2 for sat >92% limit narcs- watch sedation level; limit narcotic us at [facility] Monitor HTN; add PRN's, hold parameters [...]
--- OUTSIDE RECORDS SUMMARY | 2025-05-19 14:17 | XMS_ITS | Encounter Summary ---
Author Organization [employer] ([place], [place], [place], [place]) Address [address] [place] [address] Care Team Providers Care Battery Container Inspector Name Role Phone Unavailable Primary Care Provider Unavailabl e Encounter Details Date Type Department Care Team (Late st Contact Info) Description 12/24/2018 Transcribed Document [facility] [place] [address] [place] [address] ProviderAgnieszka MD [address] [place] [address] Social History Tobacco Use Types Packs/Day Years Used Date Smoking Tobacco: Never Assessed Sex and Gender Information Value Date Recorded Sex Assigned at Not on file Legal Sex Male 2:38 PM CDT Gender Identity Not on file Sexual Orientation Not on file documented as of this encounter Miscellaneous Notes * Cerner Conversion Note - Agnieszka ProviderMD - 12/24/2018 3:59 PM CDT [facility] [place] [id number] SIMBA MAYEN JR :1950 Visit Time:12/22/2018 Your Visit Summary Your Care Team Admitting Physician - HEIDE KAT MD-DIVYA Attending Physician - NORTH, HEIDE MORENO MD-DIVYA Primary Care Physician - NOAH NUNEZ (REF), -[facility] Referring Physician - HEIDE KAT MD-DIVYA Your [...] 11:30 AM EDT Comments Please go to [facility] at 10:45am for x-rays before appointment at 11:30am Where: [address] [place] [phone] [employer] (1) Follow Up with HEIDE KAT When 01/04/2019 11:00 AM EDT Comments Appointment has been made Where: [address] [place] [phone] [employer] (1) Medications What How Much When Instructions [...] at home: Medicines ??? Take or apply unlg-tcy-wyveamw and prescription medicines only as told by [...] cannot use soap and water, use hand drupal programmer. ? Change your bandage as told by [...] 04/22/2009 Document Revised: 12/19/2016 Document Reviewed: 01/01/2016 ElseCentaur Interactive Patient Education ?? 2019 [employer]. Spinal Fusion, Adult, Care After This sheet gives you information about how to care for yourself after your procedure. Your doctor may also give you more specific instructions. If you have problems or questions, contact your doctor. Follow these instructions at home: Medicines ??? Take zpke-dtd-jnwwyxb and prescription medicines only as told by [...] cannot use soap and water, use hand drupal programmer. ? Change your bandage as told by [...] your pee (urine) pale yellow. ? Take aavc-bbf-qrraanu or prescription medicines. ? Eat foods that [...] 11/07/2011 Document Revised: 10/28/2017 Document Reviewed: 10/28/2017 [employer] Interactive Patient Education ?? 2019 [employer]. acetaminophen and oxycodone (a SEET a MIN [...] may report side effects to FDA at 1-262-SUP-3712. What other drugs will affect acetaminophen and [...] affect acetaminophen and oxycodone, including prescription and fvao-cue-ydtcuys medicines, vitamins, and herbal products. Not all [...] to ensure that the information provided by [employer]. ('Multum') is accurate, up-to-date, and complete, but no guarantee is made to that effect. Drug information contained herein may be time sensitive. myTips information has been compiled for use by healthcare practitioners and consumers in the [place] and therefore myTips does not warrant that uses outside of the [place] are appropriate, unless specifically indicated otherwise. myTips's drug information does not endorse drugs, diagnose patients or recommend therapy. upurskills drug information is an informational resource designed [...] effective or appropriate for any given patient. myTips does not assume any responsibility for any aspect of healthcare administered with the aid of information myTips provides. The information contained herein is not intended to cover all possible uses, directions, precautions, warnings, drug interactions, allergic reactions, or adverse effects. If you have questions about the drugs you are taking, check with your doctor, nurse or pharmacist. Copyright 4576-2192 [employer]. Version: 18.02. Revision Date: 06/24/2018. Emergency Awareness [...] Assistance with quitting is available by contacting 8-410-RLNTBilderoNOW. This is a free resource providing counseling, [...] Be sure to sign up for the [facility] patient portal, which gives you 17/02 access to your medical information ??? including these discharge instructions ??? using your computer, smartphone, or tablet. Just go to [employer] to get started. Questions? Call . Test [...] range between ( 0.0 and 7.0 ) Dauphin #: 0.81 K/uL -- Normal range between ( 0.16 and 1.00 ) Eos #: 0.03 x10(3)/uL -- Normal range between ( 0.00 and 0.80 ) Dauphin %: 9.9 % -- Normal range between [...] ) Urine Bilirubin Dipstick: Small Urine Specific Beatrice: >1.030 -- Normal range between ( 1.005 [...] was given the opportunity to ask questions. Patient/High Court Justice Name: Patient/High Court Justice Signature: Relationship to Patient: Clinician/Hospital High Court Justice Signature: Date: documented in this encounter Plan of Treatment Not on file documented as of this encounter Visit Diagnoses Not on filedocumented in this encounter
--- OUTSIDE RECORDS SUMMARY | 2025-05-19 14:17 | XMS_ITS | Encounter Summary ---
Author Organization [employer] ([place], [place], [place], [place]) Address [address] [place] [address] Care Team Providers Care Insurance And Financial Services Agent Name Role Phone Unavailable Primary Care Provider Unavailabl e Encounter Details Date Type Department Care Team (Late st Contact Info) Description 12/25/2018 Transcribed Document [facility] [place] [facility] [place] [address] ProviderAgnieszka MD [address] [place], [place] [id number] Social History Tobacco Use Types Packs/Day Years [...] OSMANI RAINEY PTA - 12/25/2018 7:42 EDT Residential Goals Mobility/Bed Mobility LTG PT Grid Goal [...]
--- OUTSIDE RECORDS SUMMARY | 2025-05-19 14:17 | XMS_ITS | Encounter Summary ---
Author Organization [employer] ([place], [place], [place], [place]) Address [address] [place] [address] Care Team Providers Care Remote Sensing Research Scientist Name Role Phone Unavailable Primary Care Provider Unavailabl e Encounter Details Date Type Department Care Team (Late st Contact Info) Description 12/24/2018 Transcribed Document [facility] Neurology - [address] [place] [address] Mark Akers MD [address] [place] [address] Social History Tobacco Use Types [...] hgb: 10.5 plts: 121 1. pod 2 i68-dehbu fusion doing well. good response to surgery. rukhsana output low. -dc rukhsana -cont present care -rehab when bed avail 2. thrombocytopenia mild. likely dilutional. will monitor documented in this encounter Plan of Treatment Not on file documented as of this encounter Visit Diagnoses Not on filedocumented in this encounter
--- OUTSIDE RECORDS SUMMARY | 2025-05-19 14:17 | XMS_ITS | Encounter Summary ---
Author Organization [employer] ([place], [place], [place], [place]) Address [address] [place] [address] Care Team Providers Care Medical Doctor Nuclear Medicine Name Role Phone Unavailable Primary Care Provider Unavailabl e Encounter Details Date Type Department Care Team (Late st Contact Info) Description 11/07/2019 Transcribed Document [facility] [place] [address] [place] [address] ProviderAgnieszka MD [address] [place], [place] [address] Social History Tobacco Use Types Packs/Day Years [...] rukhsana for now. Electronically signed by Taryn [facility] Conversion Conditioning Coach Cerner at 11/12/2022 9:55 PM CDT documented in this encounter Plan of Treatment Not on file documented as of this encounter Visit Diagnoses Not on filedocumented in this encounter
--- OUTSIDE RECORDS SUMMARY | 2025-05-19 14:17 | XMS_ITS | Encounter Summary ---
Author Organization [employer] ([place], [place], [place], [place]) Address [address] [place] [address] Care Team Providers Care Death Clearance Coordinator Name Role Phone Unavailable Primary Care Provider Unavailabl e Encounter Details Date Type Department Care Team (Late st Contact Info) Description 12/23/2018 Transcribed Document [facility] [place] [address] [place] [address] ProviderAgnieszka MD [address] [place], [place] [id number] Social History Tobacco Use Types Packs/Day Years [...] On: 12/23/2018 13:23 EDT by MARTÍNEZ VALENZUELA RN-Pedicab Driver Initial Assessment I Previously Documented Living Environment [...] Contact #2 Relationship : , MARTÍNEZ VALENZUELA RN-Pedicab Driver - 12/23/2018 13:23 EDT Initial Assessment II Sensory and Motor Deficits : Other: Parkinson's Current Home Treatments and Equipment : None MARTÍNEZ VALENZUELA RN-Pedicab Driver - 12/23/2018 13:23 EDT Discharge Needs I Anticipated Discharge Date : 12/24/2018 EDT Anticipated Discharge To, CM : Acute Care Facility, assisted facility Current Home Treatment/Equipment : Current Home Treatment/Equipment No qualifying data available. MARTÍNEZ VALENZUELA RN-Pedicab Driver - 12/23/2018 13:23 EDT Discharge Needs II Professional Skilled Services : Professional Skilled Services No qualifying data available. Needs Assistance with Transportation : Maybe MARTÍNEZ VALENZUELA RN-Pedicab Driver - 12/23/2018 13:23 EDT Narrative Note Narrative Note : 68yo male pt s/p T10-S1 posterior lateral fusion, L2-S1 lami and PLIF with bilateral iliac bolts. PMH: Parkinson's. met withpt and family at bedside to discuss DCP. Pt ambulated 70ft with Ax2 this am with PT. has concerns regarding taking patient home. She requests rehab at [facility]. Referral sent and informed Colleene. CM will follow. MARTÍNEZ VALENZUELA RN-Pedicab Driver - 12/23/2018 13:23 EDT documented in this encounter Plan of Treatment Not on file documented as of this encounter Visit Diagnoses Not on filedocumented in this encounter
--- OUTSIDE RECORDS SUMMARY | 2025-05-19 14:17 | XMS_ITS | Encounter Summary ---
Author Organization [employer] ([place], [place], [place], [place]) Address [address] [place] [address] Care Team Providers Care Senior C Software Engineer Name Role Phone Unavailable Primary Care Provider Unavailabl e Encounter Details Date Type Department Care Team (Late st Contact Info) Description 12/23/2018 Transcribed Document [facility] Neurology - [address] [place] [address] Mark Akers MD [address] [place] [address] Social History Tobacco Use Types [...] since surgery. Impression and Plan POD 1 G09-xqmrn fusion. Continue drain. Keep sotomayor until ambulatory. Heparin for dvt prophylaxis. PT/OT. documented in this encounter Plan of Treatment Not on file documented as of this encounter Visit Diagnoses Not on filedocumented in this encounter
--- OUTSIDE RECORDS SUMMARY | 2025-05-19 14:17 | XMS_ITS | Encounter Summary ---
Author Organization [employer] ([place], [place], [place], [place]) Address [address] [place] [address] Care Team Providers Care Occupational Analyst Name Role Phone Unavailable Primary Care Provider Unavailabl e Encounter Details Date Type Department Care Team (Late st Contact Info) Description 12/24/2018 Transcribed Document [facility] [place] Medicine [facility] [place] [address] ProviderAngieszka MD [address] [place] [address] Social History Tobacco Use Types [...] On: 12/24/2018 18:45 EDT by ADALI NAIR box loader Documentation Discharge Date/Time : 12/24/2018 16:25 EDT [...]
--- OUTSIDE RECORDS SUMMARY | 2025-05-19 14:17 | XMS_ITS | Encounter Summary ---
Author Organization [employer] ([place], [place], [place], [place]) Address [address] [place] [address] Care Team Providers Care Laminating Press Operator Name Role Phone Unavailable Primary Care Provider Unavailabl e Encounter Details Date Type Department Care Team (Late st Contact Info) Description 11/02/2019 Transcribed Document [facility] [place] [address] [place] [address] ProviderAgnieszka MD [address] [place] [address] Social History Tobacco Use Types Packs/Day Years [...] On: 11/02/2019 7:20 EDT by Sue Beck [facility] Coord Phone Call for Consults Consult Phone Call/Page Attempt : First call Consult Reason : back osteomylitis Physician Requesting Consult : DONY NOONAN PA-C Physician Requested for Consult : NIC CEVALLOS MD-INF Provider Service Notified Name : Infectious Disease Date and Time Call Returned : 11/02/2019 9:00 EDT Sue Beck [facility] Coord - 11/02/2019 9:04 EDT documented in this encounter Plan of Treatment Not on file documented as of this encounter Visit Diagnoses Not on filedocumented in this encounter
--- OUTSIDE RECORDS SUMMARY | 2025-05-19 14:17 | XMS_ITS | Encounter Summary ---
Author Organization [employer] ([place], [place], [place], [place]) Address [address] [place] [address] Care Team Providers Care Wet Cleaner Machine Name Role Phone Unavailable Primary Care Provider Unavailabl e Encounter Details Date Type Department Care Team (Late st Contact Info) Description 12/24/2018 Transcribed Document [facility] [place] [facility] [place] [address] ProviderAgnieszka MD [address], [place] [id number] Social History Tobacco Use Types Packs/Day Years [...] On: 12/24/2018 15:22 EDT by MARTÍNEZ VALENZUELA RN-Production Truck DriverMachine Slat Basket Maker Progress Note Discharge Arrangements : Patient Post-Acute [...] Post Acute Providers : Yes MARTÍNEZ VALENZUELA RN-Production Truck Driver - 12/24/2018 15:22 EDT Electronically signed by Taryn, [facility] Conversion Compliance Technician Cerner at 11/12/2022 9:41 PM CDT documented in this encounter Plan of Treatment Not on file documented as of this encounter Visit Diagnoses Not on filedocumented in this encounter
--- OUTSIDE RECORDS SUMMARY | 2025-05-19 14:17 | XMS_ITS | Encounter Summary ---
Author Organization [employer] ([place], [place], [place], [place]) Address [address] [place] [address] Care Team Providers Care Building Maintenance Worker Name Role Phone Unavailable Primary Care Provider Unavailabl e Encounter Details Date Type Department Care Team (Late st Contact Info) Description 12/24/2018 Transcribed Document [facility] [place] [address] [place] [address] ProviderAgnieszka MD [address], [place] [phone] Social History Tobacco Use Types Packs/Day Years [...] these instructions at home: Medicines ??? Take ynas-kvn-dmwpuyy and prescription medicines only as told by [...] cannot use soap and water, use hand covered button maker. ? Change your bandage as told by [...] your pee (urine) pale yellow. ? Take kffg-ddr-lkjrara or prescription medicines. ? Eat foods that [...] 11/07/2011 Document Revised: 10/28/2017 Document Reviewed: 10/28/2017 [employer] Interactive Patient Education ? 2019 F[employer]usNet. Infectious Disease Wound Infection A wound infection [...] at home: Medicines ??? Take or apply ytqr-lyi-cympcju and prescription medicines only as told by [...] cannot use soap and water, use hand covered button maker. ? Change your bandage as told by [...] 04/22/2009 Document Revised: 12/19/2016 Document Reviewed: 01/01/2016 [employer] Interactive Patient Education ? 2019 [employer] documented in this encounter Plan of Treatment Not on file documented as of this encounter Visit Diagnoses Not on filedocumented in this encounter
--- OUTSIDE RECORDS SUMMARY | 2025-05-19 14:17 | XMS_ITS | Encounter Summary ---
Author Organization [employer] ([place], [place], [place], [place]) Address [address] [place] [address] Care Team Providers Care Tool Profiling Machine Set Up Operator Name Role Phone Unavailable Primary Care Provider Unavailabl e Encounter Details Date Type Department Care Team (Late st Contact Info) Description 11/08/2019 Transcribed Document [facility] [place] [facility] [place] [address] ProviderAgnieszka MD [address], [place] [id number] Social History Tobacco Use Types Packs/Day Years [...]
--- OUTSIDE RECORDS SUMMARY | 2025-05-19 14:18 | XMS_ITS | Encounter Summary ---
Author Organization [employer] ([place], [place], [place], [place]) Address [address] [place] [address] Care Team Providers Care Remelt Worker Name Role Phone Unavailable Primary Care Provider Unavailabl e Encounter Details Date Type Department Care Team (Late st Contact Info) Description 11/08/2019 Transcribed Document [facility] Neurology - [address] [place] [address] Heide Akers MD [address] [facility] [address] [place] [id number] Social History Tobacco Use Types Packs/Day Years [...]
--- OUTSIDE RECORDS SUMMARY | 2025-05-19 14:18 | XMS_ITS | Encounter Summary ---
Author Organization [employer] ([place], [place], [place], [place]) Address [address] [place] [address] Care Team Providers Care Leak Detection Engineer Name Role Phone Unavailable Primary Care Provider Unavailabl e Encounter Details Date Type Department Care Team (Late st Contact Info) Description 11/02/2019 Transcribed Document [facility] [place] [address] [place] [address] ProviderAgnieszka MD [address] [place], [place] [address] Social History Tobacco Use Types Packs/Day Years [...] EDT Electronically signed by Gay Centeno Conversion Welding Equipment Sales Representative Cerner at 11/12/2022 9:46 PM CDT documented in this encounter Plan of Treatment Not on file documented as of this encounter Visit Diagnoses Not on filedocumented in this encounter
--- OUTSIDE RECORDS SUMMARY | 2025-05-19 14:18 | XMS_ITS | Encounter Summary ---
Author Organization [employer] ([place], [place], [place], [place]) Address [address] [place] [address] Care Team Providers Care Operating Room Manager Name Role Phone Unavailable Primary Care Provider Unavailabl e Encounter Details Date Type Department Care Team (Late st Contact Info) Description 11/07/2019 Transcribed Document [facility] [place] Family Medicine [address] [place] [address] ProviderAgnieszka MD [address] [place], [place] [id number] Social History Tobacco Use Types Packs/Day Years [...] JOSE GONSALVES OTR/L - 11/07/2019 10:47 EDT Electronically signed by Gay Centeno Conversion Director Of Integrated Marketing Cerner at 11/12/2022 9:53 PM CDT documented in this encounter Plan of Treatment Not on file documented as of this encounter Visit Diagnoses Not on filedocumented in this encounter
--- OUTSIDE RECORDS SUMMARY | 2025-05-19 14:18 | XMS_ITS | Encounter Summary ---
Author Organization [employer] ([place], [place], [place], [place]) Address [address] [place] [address] Care Team Providers Care Paperhanger Supervisor Name Role Phone Unavailable Primary Care Provider Unavailabl e Encounter Details Date Type Department Care Team (Late st Contact Info) Description 12/24/2018 Transcribed Document [facility] [place] Family Medicine [address] [place] [address] ProviderAgnieszka MD [address] [place], [place] [phone] Social History Tobacco Use Types Packs/Day Years [...]
--- OUTSIDE RECORDS SUMMARY | 2025-05-19 14:18 | XMS_ITS | Clinical Summary ---
Author Organization [employer] ([place], [place], [place], [place]) Address [address] [place] [address] Care Team Providers Care Chain Machine Operator Name Role Phone Unavailable Primary [...]
--- OUTSIDE RECORDS SUMMARY | 2025-05-19 14:18 | XMS_ITS | Encounter Summary ---
Author Organization [employer] ([place], [place], [place], [place]) Address [address] [place] [address] Care Team Providers Care Culinary Artist Name Role Phone Unavailable Primary Care Provider Unavailabl e Encounter Details Date Type Department Care Team (Late st Contact Info) Description 11/08/2019 Transcribed Document [facility] [place] Family [place] [facility] [address] ProviderAgnieszka MD [address], [place] [phone] Social History Tobacco Use Types Packs/Day Years [...] 1950 Associated Diagnoses: None Author: BROOKS GORE, [facility] 69yoM with Low Back Pain [...] - NGTD Thank You, Brooks Gore RPh Electronically signed by Stew Centeno Conversion Order Checker Packer Processer Cerner at 11/12/2022 9:31 PM CDT documented in this encounter Plan of Treatment Not on file documented as of this encounter Visit Diagnoses Not on filedocumented in this encounter
--- OUTSIDE RECORDS SUMMARY | 2025-05-19 14:18 | XMS_ITS | Encounter Summary ---
Author Organization [employer] ([place], [place], [place], [place]) Address [address] [place] [address] Care Team Providers Care Cardiology Specialist Name Role Phone Unavailable Primary Care Provider Unavailabl e Encounter Details Date Type Department Care Team (Late st Contact Info) Description 11/08/2019 Transcribed Document [facility] [place] [facility] [place] [address] ProviderAgnieszka MD [address], [place] [phone] Social History Tobacco Use Types Packs/Day Years [...] 11/08/2019 14:04 EDT Electronically signed by Taryn [facility] Conversion Car Repairer Helper Cerner at 11/12/2022 9:35 PM CDT documented in this encounter Plan of Treatment Not on file documented as of this encounter Visit Diagnoses Not on filedocumented in this encounter
--- OUTSIDE RECORDS SUMMARY | 2025-05-19 14:18 | XMS_ITS | Encounter Summary ---
Author Organization [employer] ([place], [place], [place], [place]) Address [address] [place] [address] Care Team Providers Care Merry Go Round Attendant Name Role Phone Unavailable Primary Care Provider Unavailabl e Encounter Details Date Type Department Care Team (Late st Contact Info) Description 11/02/2019 Transcribed Document [facility] [place] Medicine [facility] [place] [address] ProviderAgnieszka MD [address] [place], [place] [address] Social History Tobacco Use Types Packs/Day Years [...] Oral, Daily, 30 Tab, 0 Refill(s) Imuran: [id number], every 8 weeks at hospital last dose [...] % 26.3 % Lymph # 2.29 x10(3)/uL [place] % 13.9 % HI [place] # 1.21 K/uL HI Eos % 0.1 [...] I discussed this case with Dr. Benitez, contact centre supervisor for neurosurgery, and he suggested that this might also be related to a fracture. Patient's symptoms did start acutely while attempting to do crunches. He has not reported any feelings of illness over the last 2 weeks as well. No history of IV drug abuse. Patient covered empirically with vancomycin and Zosyn. I discussed this case with Dr. Sagastume, hospitalist contact centre supervisor and patient will be admitted for further [...]
--- OUTSIDE RECORDS SUMMARY | 2025-05-19 14:18 | XMS_ITS | Encounter Summary ---
Author Organization [employer] ([place], [place], [place], [place]) Address [address] [place] [address] Care Team Providers Care Marine Fuel Dock Attendant Name Role Phone Unavailable Primary Care Provider Unavailabl e Encounter Details Date Type Department Care Team (Late st Contact Info) Description 11/08/2019 Transcribed Document [facility] [place] Family Medicine [address] [place] [address] ProviderAgnieszka MD [address] [place], [place] [address] Social History Tobacco Use Types Packs/Day Years [...] is staying in room tonight with him. Evangelical Preference : Moravian JEROME CONNELLY Chaplain - 11/08/2019 17:05 EDT documented in this encounter Plan of Treatment Not on file documented as of this encounter Visit Diagnoses Not on filedocumented in this encounter
--- OUTSIDE RECORDS SUMMARY | 2025-05-19 14:18 | XMS_ITS | Encounter Summary ---
Author Organization [employer] ([place], [place], [place], [place]) Address [address] [place] [address] Care Team Providers Care Cloud Subject Matter Expert Name Role Phone Unavailable Primary Care Provider Unavailabl e Encounter Details Date Type Department Care Team (Late st Contact Info) Description 11/08/2019 Transcribed Document [facility] [place] [address] [place] [address] ProviderAgnieszka MD [address] [place], [place] [id number] Social History Tobacco Use Types Packs/Day Years Used Date Smoking Tobacco: Never Assessed Sex and Gender Information Value Date Recorded Sex Assigned at Not on file Legal Sex Male 2:38 PM CDT Gender Identity Not on file Sexual Orientation Not on file documented as of this encounter Miscellaneous Notes * Cerner Conversion Note - Historical ProviderMD - 11/08/2019 2:00 AM CDT Labor Gang Supervisor Details Entered On: 11/08/2019 5:11 EDT Performed [...]
--- OUTSIDE RECORDS SUMMARY | 2025-05-19 14:18 | XMS_ITS | Encounter Summary ---
Author Organization [employer] ([place], [place], [place], [place]) Address [address] [place] [address] Care Team Providers Care Chemist Physical Name Role Phone Unavailable Primary Care Provider Unavailabl e Encounter Details Date Type Department Care Team (Late st Contact Info) Description 12/24/2018 Transcribed Document [facility] [place] [facility] [place] [address] ProviderAgnieszka MD [address] [place] [address] Social History Tobacco Use Types Packs/Day Years Used Date Smoking Tobacco: Never Assessed Sex and Gender Information Value Date Recorded Sex Assigned at Not on file Legal Sex Male 2:38 PM CDT Gender Identity Not on file Sexual Orientation Not on file documented as of this encounter Miscellaneous Notes * Cerner Conversion Note - Agnieszka ProviderMD - 12/24/2018 3:42 PM CDT [address] [address] Patient Copy Patient Information: Name: SIMBA MAYEN JR Current Date: 12/24/2018 15:42:15 : 1950 Patient Address: [address] [id number] Patient Attending Physician: HEIDE KAT [facility] Primary Care Provider: NOAH NUNEZ MD Primary Care Provider Discharge Diagnosis: Lumbar spine scoliosis; Lumbar stenosis Weight on Admission: 409 lb, 3 oz Comment: Follow-up Instructions: With: Address: When: HEIDE KAT [address] [place] [address] Business (1) Within 1 month Comments: with x rays With: Address: When: HEIDE KAT [address] [place], [place] [id number] Business (1) Within 2 weeks Comments: staple [...] Assistance with quitting is available by contacting 8-551-LKQJ-NOW. This is a free resource providing counseling, [...] Be sure to sign up for the [employer] patient portal, which gives you 17/02 access to your medical information ??? including these discharge instructions ??? using your computer, smartphone, or tablet. Just go to [employer] to get started. Questions? Call . [facility] would like to thank you for allowing us to assist you with your healthcare needs. FAHEEM Chan JR, KENNETH, (or branch customer service representative) have received the above patient education materials/instructions and have verbalized understanding: Patient Signature _ Date/Time Patient Golf Course Patroller Signature (if needed) Date/Time Clinician/Hospital Golf Course Patroller Signature (if needed) Date/Time documented in this encounter Plan of Treatment Not on file documented as of this encounter Visit Diagnoses Not on filedocumented in this encounter
--- OUTSIDE RECORDS SUMMARY | 2025-05-19 14:18 | XMS_ITS | Encounter Summary ---
Author Organization [employer] ([place], [place], [place], [place]) Address [address] [place] [address] Care Team Providers Care Keno Attendant Name Role Phone Unavailable Primary Care Provider Unavailabl e Encounter Details Date Type Department Care Team (Late st Contact Info) Description 11/02/2019 Transcribed Document [facility] [place] Family Medicine [address] [place] [address] ProviderAgnieszka MD [address] [place], [place] [address] Social History Tobacco Use Types Packs/Day Years [...] of Event : Jovi (son) phone number: [phone] Dori Bah RN - 11/02/2019 3:19 EDT Electronically signed by Gay Centeno Conversion Magnetic Resonance Imaging Director Evelio at 11/12/2022 9:53 PM CDT documented in this encounter Plan of Treatment Not on file documented as of this encounter Visit Diagnoses Not on filedocumented in this encounter
--- OUTSIDE RECORDS SUMMARY | 2025-05-19 14:18 | XMS_ITS | Encounter Summary ---
Author Organization [employer] ([place], [place], [place], [place]) Address [address] [place] [address] Care Team Providers Care Insurance Representative Name Role Phone Unavailable Primary Care Provider Unavailabl e Encounter Details Date Type Department Care Team (Late st Contact Info) Description 11/10/2019 Transcribed Document [facility] [place] Family Medicine [address] [place] [address] ProviderAgnieszka MD [address] [place], [place] [address] Social History Tobacco Use Types Packs/Day Years [...]
--- OUTSIDE RECORDS SUMMARY | 2025-05-19 14:18 | XMS_ITS | Encounter Summary ---
Author Organization [employer] ([place], [place], [place], [place]) Address [address] [place] [address] Care Team Providers Care Cider Maker Name Role Phone Unavailable Primary Care Provider Unavailabl e Encounter Details Date Type Department Care Team (Late st Contact Info) Description 11/08/2019 Transcribed Document [facility] [place] [address] [place] [address] ProviderAgnieszka MD [address] [place] [address] Social History Tobacco Use Types [...] : Rehab Maximal assistance MARSHA JOSE OTR/Lc dAhikari 11/09/2019 10:54 EDT Cognition Assessment, OT Orientation [...] MARSHA JOSE OTR/Lc - 11/09/2019 10:54 EDT Shelter Goals, OT Grooming LTG Grid Goal #1 [...]
--- OUTSIDE RECORDS SUMMARY | 2025-05-19 14:18 | XMS_ITS | Encounter Summary ---
Author Organization [employer] ([place], [place], [place], [place]) Address [address] [place] [address] Care Team Providers Care Gear Roller Name Role Phone Unavailable Primary Care Provider Unavailabl e Encounter Details Date Type Department Care Team (Late st Contact Info) Description 11/02/2019 Transcribed Document [facility] [place] [address] [place] [address] ProviderAgnieszka MD [address] [place], [place] [address] Social History Tobacco Use Types Packs/Day Years Used Date Smoking Tobacco: Never Assessed Sex and Gender Information Value Date Recorded Sex Assigned at Not on file Legal Sex Male 2:38 PM CDT Gender Identity Not on file Sexual Orientation Not on file documented as of this encounter Miscellaneous Notes * Cerner Conversion Note - Historical ProviderMD - 11/02/2019 12:31 AM CDT Vincent Suicide Severity Rating Scale (C-SSRS) Entered On: 11/02/2019 2:21 EDT Performed On: 11/02/2019 2:19 EDT by Teresa Mohamud Rn Vincent Suicide Severity Rating Scale (C-SSRS) CSSRS Past [...]
--- OUTSIDE RECORDS SUMMARY | 2025-05-19 14:18 | XMS_ITS | Encounter Summary ---
Author Organization [employer] ([place], [place], [place], [place]) Address [address] [place] [address] Care Team Providers Care Tax Audit Manager Name Role Phone Unavailable Primary Care Provider Unavailabl e Encounter Details Date Type Department Care Team (Late st Contact Info) Description 12/24/2018 Transcribed Document [facility] [place] Family Medicine [address] [place] [address] ProviderAgnieszka MD [address], [place] [id number] Social History Tobacco Use Types Packs/Day Years [...] On: 12/24/2018 15:23 EDT by MARTÍNEZ VALENZUELA RN-Chemist Instrumentation Final Discharge Planning Discharge Arrangements : Patient [...] : IRF -Inpatient Rehabilitation Facility-62 MARTÍNEZ VALENZUELA RN-Chemist Instrumentation - 12/24/2018 15:23 EDT Final Narrative Note Final Narrative Note : Pt has bed on JAMIE at [facility] . Family will transport. D/W Kavya, Leroy, spouse, pt, and bedside RN Malka. MARTÍNEZ VALENZUELA RN-Chemist Instrumentation - 12/24/2018 15:23 EDT Electronically signed by Gay Centeno Conversion It Infrastructure Project Manager Cerner at 11/12/2022 9:35 PM CDT documented in this encounter Plan of Treatment Not on file documented as of this encounter Visit Diagnoses Not on filedocumented in this encounter
--- OUTSIDE RECORDS SUMMARY | 2025-05-19 14:19 | XMS_ITS | Encounter Summary ---
Author Organization [employer] ([place], [place], [place], [place]) Address [address] [place] [address] Care Team Providers Care Apartment House Manager Name Role Phone Unavailable Primary Care Provider Unavailabl e Encounter Details Date Type Department Care Team (Late st Contact Info) Description 11/09/2019 Transcribed Document [facility] [place] Family Medicine [address] [place] [address] ProviderAgnieszka MD [address] [place], [place] [address] Social History Tobacco Use Types Packs/Day Years Used Date Smoking Tobacco: Never Assessed Sex and Gender Information Value Date Recorded Sex Assigned at Not on file Legal Sex Male 2:38 PM CDT Gender Identity Not on file Sexual Orientation Not on file documented as of this encounter Miscellaneous Notes * Cerner Conversion Note - Historical ProviderMD - 11/09/2019 2:00 AM CDT Facility Supervisor Details Entered On: 11/09/2019 4:51 EDT Performed On: 11/09/2019 2:00 EDT by Radha Josue [facility] Order Details Transport Mode Order Detail : Stretcher/Gurney Isolation Precautions Order Detail : Standard Precautions Order Detail : N/A IV Order Detail : 0 Oxygen Order Detail : 0 Nurse Collect Order Detail : 1 Lift/Transfer : Independent Central Line Order Detail : Yes Room Service : Not Appropriate Arterial Line : No Radha Josue [facility] - 11/09/2019 4:51 EDT documented in this encounter Plan of Treatment Not on file documented as of this encounter Visit Diagnoses Not on filedocumented in this encounter
--- OUTSIDE RECORDS SUMMARY | 2025-05-19 14:19 | XMS_ITS | Encounter Summary ---
Author Organization [employer] ([place], [place], [place], [place]) Address [address] [place] [address] Care Team Providers Care Pizza Delivery Name Role Phone Unavailable Primary Care Provider Unavailabl e Encounter Details Date Type Department Care Team (Late st Contact Info) Description 11/02/2019 Transcribed Document [facility] [place] Family Medicine [facility] [place] [address] ProviderAgnieszka MD [address] [place], [place] [address] Social History Tobacco Use Types Packs/Day Years [...] booklet; He reported he would call for paint supervisor if/when he is ready to complete a Living Will Emotional Support : Empathic/Engaged listening, Feelings expressed, Information provided Spiritual and Mandaeism : Prayer shared, Spiritual/Mandaeism support provided Change, Adjustment and Loss : [...]
--- OUTSIDE RECORDS SUMMARY | 2025-05-19 14:19 | XMS_ITS | Encounter Summary ---
Author Organization [employer] ([place], [place], [place], [place]) Address [address] [place] [address] Care Team Providers Care Photoengraving Etcher Apprentice Name Role Phone Unavailable Primary Care Provider Unavailabl e Encounter Details Date Type Department Care Team (Late st Contact Info) Description 11/10/2019 Transcribed Document [facility] [place] [address] [place] [address] ProviderAgnieszka MD [address], [place] [id number] Social History Tobacco Use Types Packs/Day Years [...]
--- OUTSIDE RECORDS SUMMARY | 2025-05-19 14:19 | XMS_ITS | Encounter Summary ---
Author Organization [employer] ([place], [place], [place], [place]) Address [address] [place] [address] Care Team Providers Care Driller Portable Name Role Phone Unavailable Primary Care Provider Unavailabl e Encounter Details Date Type Department Care Team (Late st Contact Info) Description 11/10/2019 Transcribed Document [facility] [place] [facility] [place] [address] ProviderAgnieszka MD [address] [place], [place] [address] Social History Tobacco Use Types Packs/Day Years [...] Disposition, General : Discharge Discharge To : Shelter unit/facility Name of Receiving Facility/Provider : [facility] Mode Of Departure, General Discharge : Ambulance/ALS Accompanied By, Discharge : brush painter IV Discontinued : Not applicable IV Therapy Comment : discharged with PICC for penitentiary antibiotics until January 02 Personal Belongings With Patient : Yes Pt's Own Supply of Medications Returned : No patient supply of medications to return Prescriptions Given to Patient : Yes (Comment: sent with packet to [facility] [Dudley Stuart RN-TRAVELER - 11/10/2019 13:34 EDT] ) Medications Given to Patient : No Discharge Instructions Reviewed With, Opportunity For Questions Given : Other: [facility] staff Patient Education Completed : Yes Number of Prescriptions Given : 3 Teaching Method : Explanation Teaching Evaluation : Verbalizes understanding Education Comment : Advised on plan of care and position changes Dudley Stuart RN-TRAVELER - 11/10/2019 13:34 EDT Electronically signed by Taryn [facility] Conversion Belt Sander Stone Cerner at 11/12/2022 9:39 PM CDT documented in this encounter Plan of Treatment Not on file documented as of this encounter Visit Diagnoses Not on filedocumented in this encounter
--- OUTSIDE RECORDS SUMMARY | 2025-05-19 14:19 | XMS_ITS | Encounter Summary ---
Author Organization [employer] ([place], [place], [place], [place]) Address [address] [place] [address] Care Team Providers Care Elevator Mechanic Name Role Phone Unavailable Primary Care Provider Unavailabl e Encounter Details Date Type Department Care Team (Late st Contact Info) Description 11/02/2019 Transcribed Document [facility] [place] [address] [place] [address] ProviderAgnieszka MD [address] [place], [place] [address] Social History Tobacco Use Types Packs/Day Years [...]
--- OUTSIDE RECORDS SUMMARY | 2025-05-19 14:19 | XMS_ITS | Encounter Summary ---
Author Organization [employer] ([place], [place], [place], [place]) Address [address] [place] [address] Care Team Providers Care Manager Ed Name Role Phone Unavailable Primary Care Provider Unavailabl e Encounter Details Date Type Department Care Team (Late st Contact Info) Description 11/09/2019 Transcribed Document [facility] [place] [facility] [place] [address] ProviderAgnieszka MD [address], [place] [id number] Social History Tobacco Use Types Packs/Day Years [...] plan of discharge is to cont with [facility] upon being released. Pt was resting well this am and reported that OT did visit with him earlier. PT orders entered, and awaiting eval. [facility] is closely following pt. Tranportation will need to be arranged. Historical Progress Note : Neuro surgery note for today pending. Initial plans before first surgery were to transition to [facility]. Second surgery was performed, and spoke with pt/spouse and both still agree to safe plan of discharge being [facility] for rehab when medically cleared for discharge. [facility] today, and is going to speak w/pt about facility. CM to cont following SAL BERRIOS RN-Care Management - 11/08/19 14:04:02 Pt off floor since this am for thoracic extension with arrow procedure. CM to cont following, and safe plans of discharge is [facility] when medically cleared to be released. [facility] following SAL BERRIOS RN-Care Management - 11/05/19 12:51:13 Elvia stated that [facility] is following for patient placement. Patient is scheduled for surgery Friday11/05/19. Cm will continue to follow. ELKE VELÁZQUEZ, Speech Pathologist Assistant-Trichologist - 11/04/19 13:06:08 Patient is scheduled for an MRI on and surgery on Friday. He reported wanting to go to [facility]. Cm sent referral packet to [facility]. ELKE VELÁZQUEZ Speech Pathologist Assistant-Trichologist - 11/03/19 14:33:22 SAL BERRIOS RN-Care Management - 11/09/2019 11:49 EDT documented in this encounter Plan of Treatment Not on file documented as of this encounter Visit Diagnoses Not on filedocumented in this encounter
--- OUTSIDE RECORDS SUMMARY | 2025-05-19 14:19 | XMS_ITS | Encounter Summary ---
Author Organization [employer] ([place], [place], [place], [place]) Address [address] [place] [address] Care Team Providers Care Car Body Inspector Name Role Phone Unavailable Primary Care Provider Unavailabl e Encounter Details Date Type Department Care Team (Late st Contact Info) Description 11/02/[address] [facility] [place] [facility] [address] ProviderAgnieszka MD [address] [place], [place] [id number] Social History Tobacco Use Types Packs/Day Years [...]
--- OUTSIDE RECORDS SUMMARY | 2025-05-19 14:19 | XMS_ITS | Encounter Summary ---
Author Organization [employer] ([place], [place], [place], [place]) Address [address] [place] [address] Care Team Providers Care Senior Account Manager Name Role Phone Unavailable Primary Care Provider Unavailabl e Encounter Details Date Type Department Care Team (Late st Contact Info) Description 11/09/2019 Transcribed Document [facility] [place] [address] [place] [address] ProviderAgnieszka MD [address] [place], [place] [address] Social History Tobacco Use Types Packs/Day Years [...] On: 11/09/2019 5:00 EDT by Radha Josue Skilled Labor-Health Unit Coord Chart Check Powerplans Initiated/Discontinued as Appropriate : Yes All Active Orders Reviewed : Yes Radha Josue Care Asst-Health Unit Coord - 11/09/2019 4:54 EDT documented in this encounter Plan of Treatment Not on file documented as of this encounter Visit Diagnoses Not on filedocumented in this encounter
--- OUTSIDE RECORDS SUMMARY | 2025-05-19 14:19 | XMS_ITS | Encounter Summary ---
Author Organization [employer] ([place], [place], [place], [place]) Address [address] [place] [address] Care Team Providers Care Nurse Quality Name Role Phone Unavailable Primary Care Provider Unavailabl e Encounter Details Date Type Department Care Team (Late st Contact Info) Description 11/08/2019 Transcribed Document [facility] Family Medicine [facility] [place] [address] ProviderAgnieszka MD [address] [place], [place] [address] Social History Tobacco Use Types Packs/Day Years [...] before first surgery were to transition to [facility]. Second surgery was performed, and spoke with pt/spouse and both still agree to safe plan of discharge being [facility] for rehab when medically cleared for discharge. Spoke to [facility] today, and is going to speak w/pt about facility. CM to cont following Historical Progress Note : Pt off floor since this am for thoracic extension with arrow procedure. CM to cont following, and safe plans of discharge is STR when medically cleared to be released. [facility] following SAL BERRIOS RN-Care Management - 11/05/19 12:51:13 Elvia stated that [facility] is following for patient placement. Patient is scheduled for surgery Friday11/05/19. Cm will continue to follow. LEKE VELÁZQUEZ, Wire Coiler Machine Operator-Precision Lens Polisher - 11/04/19 13:06:08 Patient is scheduled for an MRI on and surgery on Friday. He reported wanting to go to [facility]. Cm sent referral packet to [facility]. ELKE VELÁZQUEZ Wire Coiler Machine Operator-Precision Lens Polisher - 11/03/19 14:33:22 SAL BERRIOS RN-Care Management - 11/08/2019 13:58 EDT documented in this encounter Plan of Treatment Not on file documented as of this encounter Visit Diagnoses Not on filedocumented in this encounter
--- OUTSIDE RECORDS SUMMARY | 2025-05-19 14:19 | XMS_ITS | Encounter Summary ---
Author Organization [employer] ([place], [place], [place], [place]) Address [address] [place] [address] Care Team Providers Care Miscellaneous Machine Operator Name Role Phone Unavailable Primary Care Provider Unavailabl e Encounter Details Date Type Department Care Team (Late st Contact Info) Description 11/02/2019 Transcribed Document [facility] [place] [address] [place] [address] ProviderAgnieszka MD [address], [place] [phone] Social History Tobacco Use Types Packs/Day Years [...] LAVERNE OLSON, PT - 11/03/2019 11:33 EDT Correction Goals Mobility/Bed Mobility LTG PT Grid Goal [...]
--- OUTSIDE RECORDS SUMMARY | 2025-05-19 14:19 | XMS_ITS | Encounter Summary ---
Author Organization [employer] ([place], [place], [place], [place]) Address [address] [place] [address] Care Team Providers Care Box Feeder Name Role Phone Unavailable Primary Care Provider Unavailabl e Encounter Details Date Type Department Care Team (Late st Contact Info) Description 11/10/2019 Transcribed Document [facility] [place] [facility] [place] [place] [address] ProviderAgnieszka MD [address] [place], [place] [address] Social History Tobacco Use Types Packs/Day Years [...] mL: 2 Gram, 200 mL/Hr, IV Piggyback, [id number] docusate sodium: 200 mg, Oral, BID heparin: [...] micro id prior to making plans for [facility] transfer -- probiotic ?Continue to follow cultures and sensitivity reports an just antibiotics accordingly ?Follow daily labs while in hospital and trend results Discussed at length with in room documented in this encounter Plan of Treatment Not on file documented as of this encounter Visit Diagnoses Not on filedocumented in this encounter
--- OUTSIDE RECORDS SUMMARY | 2025-05-19 14:19 | XMS_ITS | Encounter Summary ---
Author Organization [employer] ([place], [place], [place], [place]) Address [address] [place] [address] Care Team Providers Care Government Services Professional Name Role Phone Unavailable Primary Care Provider Unavailabl e Encounter Details Date Type Department Care Team (Late st Contact Info) Description 11/10/2019 Transcribed Document [facility] [place] Family Medicine [address] [place] [address] ProviderAgnieszka MD [address] [place], [place] [id number] Social History Tobacco Use Types Packs/Day Years [...] : Patient Post-Acute Information Patient Name: SIMBA MAYNE JR Gender: Male : 48 Age: 69 [...] : Pt discharging today and transferring to [facility]Spinal Unit. [facility] transporting pt at 1400. [...]
--- OUTSIDE RECORDS SUMMARY | 2025-05-19 14:19 | XMS_ITS | Encounter Summary ---
Author Organization [employer] ([place], [place], [place], [place]) Address [address] [place] [address] Care Team Providers Care Children'S Nursery Assistant Name Role Phone Unavailable Primary Care Provider Unavailabl e Encounter Details Date Type Department Care Team (Late st Contact Info) Description 11/09/2019 Transcribed Document [facility] [place] Family Medicine [facility] [place] [address] ProviderAgnieszka MD [address] [place], [place] [id number] Social History Tobacco Use Types Packs/Day Years [...] acetaminophen(Pending Validation) Performed by Radha Josue Care [facility] on 11/09/2019 07:07:00 EDT acetaminophen,650mg Oral Pain [...]
--- OUTSIDE RECORDS SUMMARY | 2025-05-19 14:19 | XMS_ITS | Encounter Summary ---
Author Organization [employer] ([place], [place], [place], [place]) Address [address] [place] [address] Care Team Providers Care Tobacco Scrap Sifter Name Role Phone Unavailable Primary Care Provider Unavailabl e Encounter Details Date Type Department Care Team (Late st Contact Info) Description 11/10/2019 Transcribed Document [facility] [place] [facility] [place] [address] ProviderAgnieszka MD [address] [place], [place] [id number] Social History Tobacco Use Types Packs/Day Years [...] flow. ??? Need to wear a medical grade shoemaker. ??? Have poor control of their bladder [...] health care provider. General instructions ??? Take myez-kny-pbdaiwp and prescription medicines only as told by [...] 08/21/2005 Document Revised: 04/06/2019 Document Reviewed: 04/06/2019 [employer] Patient Education ? 2019 [employer] Orthopedics Acute Back Pain, Adult Acute [...] Managing pain, stiffness, and swelling ??? Take zmfi-ozg-fnvyvtt and prescription medicines only as told by [...] day. ??? Do not sit, drive, or taping foreman one place for more than 30 minutes [...] less stress on your back. ??? Take wyxm-wxg-kjwflum and prescription medicines and apply heat or ice as directed by your health care provider. This information is not intended to replace advice given to you by your health care provider. Make sure you discuss any questions you have with your health care provider. Document Released: 07/14/2006 Document Revised: 02/18/2019 Document Reviewed: 02/25/2018 [employer] Patient Education ? 2019 [employer] documented in this encounter Plan of Treatment Not on file documented as of this encounter Visit Diagnoses Not on filedocumented in this encounter
--- OUTSIDE RECORDS SUMMARY | 2025-05-19 14:19 | XMS_ITS | Encounter Summary ---
Author Organization [employer] ([place], [place], [place], [place]) Address [address] [place] [address] Care Team Providers Care Executive Search Consultant Name Role Phone Unavailable Primary Care Provider Unavailabl e Encounter Details Date Type Department Care Team (Late st Contact Info) Description 11/10/2019 Transcribed Document [facility] [place] Family Medicine [address] [place] [address] ProviderAgnieszka MD [address] [place], [place] [id number] Social History Tobacco Use Types Packs/Day Years Used Date Smoking Tobacco: Never Assessed Sex and Gender Information Value Date Recorded Sex Assigned at Not on file Legal Sex Male 2:38 PM CDT Gender Identity Not on file Sexual Orientation Not on file documented as of this encounter Miscellaneous Notes * Cerner Conversion Note - Historical ProviderMD - 11/10/2019 2:00 AM CDT Anesthesiology Tech Details Entered On: 11/10/2019 4:25 EDT Performed [...]
--- OUTSIDE RECORDS SUMMARY | 2025-05-19 14:19 | XMS_ITS | Encounter Summary ---
Author Organization [employer] ([place], [place], [place], [place]) Address [address] [place] [address] Care Team Providers Care Planning Rn Name Role Phone Unavailable Primary Care Provider Unavailabl e Encounter Details Date Type Department Care Team (Late st Contact Info) Description 11/10/2019 Transcribed Document [facility] [place] Family Medicine [address] [place] [address] ProviderAgnieszka MD [address] [place], [place] [address] Social History Tobacco Use Types Packs/Day Years [...] pleased for one more visit. encouragement provided. Mandaen Preference : Confucianism JEROME CONNELLY Chaplain - 11/10/2019 19:44 EDT documented in this encounter Plan of Treatment Not on file documented as of this encounter Visit Diagnoses Not on filedocumented in this encounter
--- OUTSIDE RECORDS SUMMARY | 2025-05-19 14:19 | XMS_ITS | Encounter Summary ---
Author Organization [employer] ([place], [place], [place], [place]) Address [address] [place] [address] Care Team Providers Care Frame Feeder Name Role Phone Unavailable Primary Care Provider Unavailabl e Encounter Details Date Type Department Care Team (Late st Contact Info) Description 11/10/2019 Transcribed Document [facility] [place] [facility] [place] [address] ProviderAgnieszka MD [address] [place], [place] [id number] Social History Tobacco Use Types Packs/Day Years [...] [address] [address] [place] [address] [address] [place] NURSE PRACTITIONER Re: SIMBA MAYEN [...] is strictly prohibited. Sincerely, LEXII HOUSTON [address] [facility] [address] [place] [address] The following document(s) were included in the letter: November 10, 2019 11:51:00 EDT - (11/10/2019) Discharge Note documented in this encounter Plan of Treatment Not on file documented as of this encounter Visit Diagnoses Not on filedocumented in this encounter
--- OUTSIDE RECORDS SUMMARY | 2025-05-19 14:19 | XMS_ITS | Encounter Summary ---
Author Organization [employer] ([place], [place], [place], [place]) Address [address] [place] [address] Care Team Providers Care Furnace Feeder Name Role Phone Unavailable Primary Care Provider Unavailabl e Encounter Details Date Type Department Care Team (Late st Contact Info) Description 11/09/2019 Transcribed Document [facility] [place] Family Medicine [address] [place] [address] ProviderAgnieszka MD [address], [place] [id number] Social History Tobacco Use Types Packs/Day Years [...] Ministry Provided to : Patient, Family/Significant other Temple Preference : Restoration JEROME CONNELLY Chaplain - 11/09/2019 19:24 EDT [...]
--- OUTSIDE RECORDS SUMMARY | 2025-05-19 14:19 | XMS_ITS | Encounter Summary ---
Author Organization [employer] ([place], [place], [place], [place]) Address [address] [place] [address] Care Team Providers Care Director Of Revenue Cycle Management Name Role Phone Unavailable Primary Care Provider Unavailabl e Encounter Details Date Type Department Care Team (Late st Contact Info) Description 11/09/2019 Transcribed Document [facility] [place] [address] ProviderAgnieszka MD [address] [place], [place] [phone] Social History Tobacco Use Types Packs/Day Years [...]
--- OUTSIDE RECORDS SUMMARY | 2025-05-19 14:19 | XMS_ITS | Encounter Summary ---
Author Organization [employer] ([place], [place], [place], [place]) Address [address] [place] [address] Care Team Providers Care Blueprint Processor Name Role Phone Unavailable Primary Care Provider Unavailabl e Encounter Details Date Type Department Care Team (Late st Contact Info) Description 11/09/2019 Transcribed Document [facility] [place] Family Medicine [facility] [place] [address] ProviderAgnieszka MD [address], [place] [phone] Social History Tobacco Use Types Packs/Day Years [...] MALIHA COLIN OTR/Lc - 11/10/2019 15:28 EDT Custodial Goals, OT Grooming LTG Grid [...]
--- OUTSIDE RECORDS SUMMARY | 2025-05-19 14:19 | XMS_ITS | Encounter Summary ---
Author Organization [employer] ([place], [place], [place], [place]) Address [address] [place] [address] Care Team Providers Care Software Engineering Specialist Name Role Phone Unavailable Primary Care Provider Unavailabl e Encounter Details Date Type Department Care Team (Late st Contact Info) Description 11/09/2019 Transcribed Document [facility] [place] [address] [place] [address] ProviderAgnieszka MD [address] [place], [place] [address] Social History Tobacco Use Types Packs/Day Years [...] On: 11/09/2019 2:59 EDT by Radha Josue [facility] Intervention Information: acetaminophen Performed by Radha Josue [facility] Unit Coord on 11/09/2019 01:59:00 EDT acetaminophen,650mg Oral Pain Assessment Pain Assessment : Follow-up assessment Pain Scale Goal : 2 Pain Scale Used : 0-10 Scale Radha Josue [facility] - 11/09/2019 4:51 EDT documented in this encounter Plan of Treatment Not on file documented as of this encounter Visit Diagnoses Not on filedocumented in this encounter
--- OUTSIDE RECORDS SUMMARY | 2025-05-19 14:19 | XMS_ITS | Encounter Summary ---
Author Organization [employer] ([place], [place], [place], [place]) Address [address] [place] [address] Care Team Providers Care Street And Building Decorator Name Role Phone Unavailable Primary Care Provider Unavailabl e Encounter Details Date Type Department Care Team (Late st Contact Info) Description 11/11/2019 Transcribed Document [facility] [place] Family [facility] [place] [address] ProviderAgnieszka MD [address] [place], [place] [address] Social History Tobacco Use Types Packs/Day Years [...] mobilty and was non-ambulatory. He discharged to [facility]. LILA PIERCE, PT - 11/11/2019 8:07 EDT Short Term Goals Mobility/Bed Mobility STG PT Grid Goal #1 Goal #2 Activity : Supine to sit Assist : Assist, moderate Date to Meet : 11/16/2019 EDT Goal Status : Not met Comment : Re-eval 4/14/AM See goals below. LILA PIERCE, PT - 11/11/2019 8:07 EDT LILA PIEREC, PT - 11/11/2019 8:07 EDT Other PT STG Grid Goal #1 Goal : Patient will be able to sit at edge of bed independently for 1 minute (static sitting balance). Date to Meet : 11/16/2019 EDT Goal Status : Not met Comment : Re-eval 11/08 AM LILA PIERCE, PT - 11/11/2019 8:07 EDT [facility] Goals Mobility/Bed [...]
--- OUTSIDE RECORDS SUMMARY | 2025-05-19 14:19 | XMS_ITS | Encounter Summary ---
Author Organization [employer] ([place], [place], [place], [place]) Address [address] [place] [address] Care Team Providers Care Mushroom Sorter Grader Name Role Phone Unavailable Primary Care Provider Unavailabl e Encounter Details Date Type Department Care Team (Late st Contact Info) Description 11/09/2019 Transcribed Document [facility] [facility] [place] [facility] [place] [address] ProviderAgnieszka MD [address] [place], [place] [phone] Social History Tobacco Use Types Packs/Day Years [...]
--- OUTSIDE RECORDS SUMMARY | 2025-05-19 14:19 | XMS_ITS | Encounter Summary ---
Author Organization [employer] ([place], [place], [place], [place]) Address [address] [place] [address] Care Team Providers Care Boot Lace Cutter Machine Name Role Phone Unavailable Primary Care Provider Unavailabl e Encounter Details Date Type Department Care Team (Late st Contact Info) Description 11/09/2019 Transcribed Document [facility] [place] Family Medicine [facility] [place] [address] ProviderAgnieszka MD [address], [place] [phone] Social History Tobacco Use Types Packs/Day Years [...]
--- OUTSIDE RECORDS SUMMARY | 2025-05-19 14:19 | XMS_ITS | Encounter Summary ---
Author Organization [employer] ([place], [place], [place], [place]) Address [address] [place] [address] Care Team Providers Care Utility Worker Driver Name Role Phone Unavailable Primary Care Provider Unavailabl e Encounter Details Date Type Department Care Team (Late st Contact Info) Description 11/10/2019 Transcribed Document [facility] [place] [address] [place] [address] ProviderAgnieszka MD [address] [place], [place] [address] Social History Tobacco Use Types Packs/Day Years [...]
--- OUTSIDE RECORDS SUMMARY | 2025-05-19 14:19 | XMS_ITS | Encounter Summary ---
Author Organization [employer] ([place], [place], [place], [place]) Address [address] [place] [address] Care Team Providers Care Solar Panel Technician Name Role Phone Unavailable Primary Care Provider Unavailabl e Encounter Details Date Type Department Care Team (Late st Contact Info) Description 11/09/2019 Transcribed Document [facility] [place] Family Medicine [address] [place] [address] ProviderAgnieszka MD [address] [place], [place] [address] Social History Tobacco Use Types Packs/Day Years [...]
--- OUTSIDE RECORDS SUMMARY | 2025-05-19 14:19 | XMS_ITS | Encounter Summary ---
Author Organization [employer] ([place], [place], [place], [place]) Address [address] [place] [address] Care Team Providers Care Metal Roofer Name Role Phone Unavailable Primary Care Provider Unavailabl e Encounter Details Date Type Department Care Team (Late st Contact Info) Description 11/02/2019 Transcribed Document [facility] [place] Family Medicine [address] [place] [address] ProviderAgnieszka MD [address] [place] [address] Social History Tobacco Use Types [...] JESSICA ROSENBAUM OTR/L - 11/03/2019 11:18 EDT Rn Corrections Goals, OT Grooming LTG Grid Goal #1 [...] functional distance. Nicole care with assist from STAGE DIRECTOR Total. Pt washed his face with set [...] JESSICA ROSENBAUM OTR/Lc - 11/03/2019 11:18 EDT [place] OT Charges OT Selfcare/Hm Mgmt Ea 15 Min : 1 OT Eval Moderate Complexity : 1 JESSICA ROSENBAUM OTR/Lc - 11/03/2019 11:18 EDT documented in this encounter Plan of Treatment Not on file documented as of this encounter Visit Diagnoses Not on filedocumented in this encounter
--- OUTSIDE RECORDS SUMMARY | 2025-05-19 14:19 | XMS_ITS | Encounter Summary ---
Author Organization [employer] ([place], [place], [place], [place]) Address [address] [place] [address] Care Team Providers Care Dice Table Person Name Role Phone Unavailable Primary Care Provider Unavailabl e Encounter Details Date Type Department Care Team (Late st Contact Info) Description 11/10/2019 Transcribed Document [facility] [place] [address] [place] [address] ProviderAgnieszka MD [address], [place] [phone] Social History Tobacco Use Types Packs/Day Years [...] to sign off -pt to transfer to [facility] today Thank You, Brooks Gore RPh Electronically signed by Taryn [facility] Conversion Package Delivery Room Service Runner Cerner at 11/12/2022 9:30 PM CDT documented in this encounter Plan of Treatment Not on file documented as of this encounter Visit Diagnoses Not on filedocumented in this encounter
--- OUTSIDE RECORDS SUMMARY | 2025-05-19 14:20 | XMS_ITS | Encounter Summary ---
Author Organization [employer] ([place], [place], [place], [place]) Address [address] [place] [address] Care Team Providers Care Rn Bariatric Name Role Phone Unavailable Primary Care Provider Unavailabl e Encounter Details Date Type Department Care Team (Late st Contact Info) Description 11/05/2019 Transcribed Document [facility] [place] [facility] [place] [address] ProviderAgnieszka MD [address] [place] [address] Social History Tobacco Use Types [...]
--- OUTSIDE RECORDS SUMMARY | 2025-05-19 14:20 | XMS_ITS | Encounter Summary ---
Author Organization [employer] ([place], [place], [place], [place]) Address [address] [place] [address] Care Team Providers Care Real Estate Marketing Coordinator Name Role Phone Unavailable Primary Care Provider Unavailabl e Encounter Details Date Type Department Care Team (Late st Contact Info) Description 11/05/2019 Transcribed Document [facility] [place] Family Medicine [facility] [address] ProviderAgnieszka MD [address], [place] [phone] Social History Tobacco Use Types Packs/Day Years [...]
--- OUTSIDE RECORDS SUMMARY | 2025-05-19 14:20 | XMS_ITS | Encounter Summary ---
Author Organization [employer] ([place], [place], [place], [place]) Address [address] [place] [address] Care Team Providers Care Agriculture Laborer Name Role Phone Unavailable Primary Care Provider Unavailabl e Encounter Details Date Type Department Care Team (Late st Contact Info) Description 11/05/2019 Transcribed Document [facility] Neurology - [address] [facility] [address] [place] [address] Mark Akers MD [address] [facility] [address] [place] [address] Social History Tobacco Use Types [...] 4. Intraoperative CT scan with stereotactic navigation. INVESTMENT SPECIALIST: Janae Borges. TYPE OF ANESTHESIA: GEA. DESCRIPTION [...] and the usual freehand techniques and the Atlas5D system, pedicle screws were placed at T6, [...] LOSS: 250 mL. DRAINS: Sam-Burger. COMPLICATIONS: None. /[id number] Mark Akers MD MPT/AQ / MPT / MODL /[id number] CC: Dr. Faustino Jones documented in this encounter Plan of Treatment Not on file documented as of this encounter Visit Diagnoses Not on filedocumented in this encounter
--- OUTSIDE RECORDS SUMMARY | 2025-05-19 14:20 | XMS_ITS | Encounter Summary ---
Author Organization [employer] ([place], [place], [place], [place]) Address [address] [place] [address] Care Team Providers Care Ruby Engineer Name Role Phone Unavailable Primary Care Provider Unavailabl e Encounter Details Date Type Department Care Team (Late st Contact Info) Description 11/04/2019 Transcribed Document [facility] [place] [facility] [place] [address] ProviderAgnieszka MD [address] [place], [place] [id number] Social History Tobacco Use Types Packs/Day Years [...] mg= 1 mL, IV Push, Q2H, PRN [place] 10 mg-325 mg oral tablet, 1 Tab, [...] Appearance CLEAR2 11/03/2019 14:00 EDT Urine Specific [place] 1.027 11/03/2019 14:00 EDT Urine pH Dipstick [...] 11/03/2019 20:19 EDT Electronically signed by Taryn, [facility] Conversion Vice President Of Software Engineering Cerner at 11/12/2022 9:31 PM CDT documented in this encounter Plan of Treatment Not on file documented as of this encounter Visit Diagnoses Not on filedocumented in this encounter
--- OUTSIDE RECORDS SUMMARY | 2025-05-19 14:20 | XMS_ITS | Encounter Summary ---
Author Organization [employer] ([place], [place], [place], [place]) Address [address] [place] [address] Care Team Providers Care Metal Furniture Glazier Name Role Phone Unavailable Primary Care Provider Unavailabl e Encounter Details Date Type Department Care Team (Late st Contact Info) Description 11/05/2019 Transcribed Document [facility] [place] Family Medicine [address] [place] [address] ProviderAgnieszka MD [address] [place], [place] [address] Social History Tobacco Use Types Packs/Day Years [...] EDT Electronically signed by Gay Centeno Conversion Cutting Machine Operator Helper Cerner at 11/12/2022 9:47 PM CDT documented in this encounter Plan of Treatment Not on file documented as of this encounter Visit Diagnoses Not on filedocumented in this encounter
--- OUTSIDE RECORDS SUMMARY | 2025-05-19 14:20 | XMS_ITS | Encounter Summary ---
Author Organization [employer] ([place], [place], [place], [place]) Address [address] [place] [address] Care Team Providers Care International Sales Manager Name Role Phone Unavailable Primary Care Provider Unavailabl e Encounter Details Date Type Department Care Team (Late st Contact Info) Description 11/04/2019 Transcribed Document [facility] [place] [address] [place] [address] ProviderAgnieszka MD [address], [place] [address] Social History Tobacco Use Types Packs/Day Years [...] On: 11/04/2019 5:00 EDT by Radha Josue Hoop Punch And Coiler Operator Helper-Health Unit Coord Chart Check Powerplans Initiated/Discontinued as Appropriate : Yes All Active Orders Reviewed : Yes Radha Josue Care Asst-Health Unit Coord - 11/04/2019 4:43 EDT documented in this encounter Plan of Treatment Not on file documented as of this encounter Visit Diagnoses Not on filedocumented in this encounter
--- OUTSIDE RECORDS SUMMARY | 2025-05-19 14:20 | XMS_ITS | Encounter Summary ---
Author Organization [employer] ([place], [place], [place], [place]) Address [address] [place] [address] Care Team Providers Care Administrative Operations Coordinator Name Role Phone Unavailable Primary Care Provider Unavailabl e Encounter Details Date Type Department Care Team (Late st Contact Info) Description 11/04/2019 Transcribed Document [facility] [place] [facility] [place] [address] ProviderAgnieszka MD [address], [place] [id number] Social History Tobacco Use Types Packs/Day Years [...] 1950 Associated Diagnoses: None Author: EUGENIO BRAXTON, [facility] 69yoM with Low Back Pain [...] intraop cultures Thank You, Eugenio Braxton PharmD Electronically signed by Gay Centeno Conversion Split Leather Department Supervisor Evelio at 11/12/2022 9:34 PM CDT documented in this encounter Plan of Treatment Not on file documented as of this encounter Visit Diagnoses Not on filedocumented in this encounter
--- OUTSIDE RECORDS SUMMARY | 2025-05-19 14:20 | XMS_ITS | Encounter Summary ---
Author Organization [employer] ([place], [place], [place], [place]) Address [address] [place] [address] Care Team Providers Care English Professor Name Role Phone Unavailable Primary Care Provider Unavailabl e Encounter Details Date Type Department Care Team (Late st Contact Info) Description 11/04/2019 Transcribed Document [facility] [place] [address] [place] [address] ProviderAgnieszka MD [address], [place] [address] Social History Tobacco Use Types Packs/Day Years Used Date Smoking Tobacco: Never Assessed Sex and Gender Information Value Date Recorded Sex Assigned at Not on file Legal Sex Male 2:38 PM CDT Gender Identity Not on file Sexual Orientation Not on file documented as of this encounter Miscellaneous Notes * Cerner Conversion Note - Historical ProviderMD - 11/04/2019 2:00 AM CDT Lithostripper Details Entered On: 11/04/2019 4:42 EDT Performed On: 11/04/2019 2:00 EDT by Radha Josue [facility] Order Details Transport Mode Order Detail : Stretcher/Gurney Isolation Precautions Order Detail : Standard Precautions Order Detail : N/A IV Order Detail : 1 Oxygen Order Detail : 0 Nurse Collect Order Detail : 0 Lift/Transfer : Independent Central Line Order Detail : No Room Service : Not Appropriate Arterial Line : No Radha Josue [facility] - 11/04/2019 4:41 EDT documented in this encounter Plan of Treatment Not on file documented as of this encounter Visit Diagnoses Not on filedocumented in this encounter
--- OUTSIDE RECORDS SUMMARY | 2025-05-19 14:20 | XMS_ITS | Encounter Summary ---
Author Organization [employer] ([place], [place], [place], [place]) Address [address] [place] [address] Care Team Providers Care Restorer Paper And Prints Name Role Phone Unavailable Primary Care Provider Unavailabl e Encounter Details Date Type Department Care Team (Late st Contact Info) Description 11/04/2019 Transcribed Document [facility] [place] Family Medicine [address] [place] [address] ProviderAgnieszka MD [address], [place] [address] Social History Tobacco Use Types Packs/Day Years [...]
--- OUTSIDE RECORDS SUMMARY | 2025-05-19 14:20 | XMS_ITS | Encounter Summary ---
Author Organization [employer] ([place], [place], [place], [place]) Address [address] [place] [address] Care Team Providers Care Paint Spray Inspector Name Role Phone Unavailable Primary Care Provider Unavailabl e Encounter Details Date Type Department Care Team (Late st Contact Info) Description 11/05/2019 Transcribed Document [facility] [place] Family Medicine [address] [place] [address] ProviderAgnieszka MD [address] [place], [place] [id number] Social History Tobacco Use Types Packs/Day Years Used Date Smoking Tobacco: Never Assessed Sex and Gender Information Value Date Recorded Sex Assigned at Not on file Legal Sex Male 2:38 PM CDT Gender Identity Not on file Sexual Orientation Not on file documented as of this encounter Miscellaneous Notes * Cerner Conversion Note - Agnieszka ProviderMD - 11/05/2019 9:[address] [facility] Main OR Preop Summary Primary Physician: HEIDE KAT MD-U Finalized Date/Time: 11/05/19 12:33:22 Pt. Name: SIMBA MAYEN JR/Sex: 1950 Male Med Rec #: [id number] Physician: LORENA SAGASTUME MD-INT Financial #: [id number] Pt. Type: I Room/Bed: [facility]/ Admit/Disch: 11/02/19 02:59:00 - Institution: [facility] PreOp Case Times Entry 1 In Preop 11/05/19 06:54:00 Ready for Holding n/a Room Patient Ready for 11/05/19 07:32:00 Surgery Patient Out of Preop 11/05/19 08:23:00 Patient Out of n/a Holding Room Last Modified By: Danelle Parekh, Nurse Hotel Room Attendant 11/05/19 12:33:18 [facility] PreOp Case Times Audit 11/05/19 12:33:18 Electrical And Electronic Assembler: ASHKAN Modifier: [id number] <+> 1 Patient Out of Preop Finalized By: Danelle Parekh, Nurse Digital Photo Printer Signatures Signed By: Danelle Parekh, Nurse Hotel Room Attendant 11/05/19 12:33 Electronically signed by Taryn [facility] Conversion Duralumin Metalworker Cerner at 11/12/2022 9:36 PM CDT documented in this encounter Plan of Treatment Not on file documented as of this encounter Visit Diagnoses Not on filedocumented in this encounter
--- OUTSIDE RECORDS SUMMARY | 2025-05-19 14:20 | XMS_ITS | Encounter Summary ---
Author Organization [employer] ([place], [place], [place], [place]) Address [address] [place] [address] Care Team Providers Care Casino Runner Name Role Phone Unavailable Primary Care Provider Unavailabl e Encounter Details Date Type Department Care Team (Late st Contact Info) Description 11/05/2019 Transcribed Document [facility] [place] Family Medicine [address] [place] [address] ProviderAgnieszka MD [address] [place], [place] [id number] Social History Tobacco Use Types Packs/Day Years Used Date Smoking Tobacco: Never Assessed Sex and Gender Information Value Date Recorded Sex Assigned at Not on file Legal Sex Male 2:38 PM CDT Gender Identity Not on file Sexual Orientation Not on file documented as of this encounter Miscellaneous Notes * Cerner Conversion Note - Historical ProviderMD - 11/05/2019 2:00 AM CDT Process Planner Details Entered On: 11/05/2019 5:20 EDT Performed [...]
--- OUTSIDE RECORDS SUMMARY | 2025-05-19 14:20 | XMS_ITS | Encounter Summary ---
Author Organization [employer] ([place], [place], [place], [place]) Address [address] [place] [address] Care Team Providers Care Stone Rougher Name Role Phone Unavailable Primary Care Provider Unavailabl e Encounter Details Date Type Department Care Team (Late st Contact Info) Description 11/08/2019 Transcribed Document [facility] Family Medicine [address] [place] [address] ProviderAgnieszka MD [facility] [place] [phone] Social History Tobacco Use Types Packs/Day Years [...]
--- OUTSIDE RECORDS SUMMARY | 2025-05-19 14:20 | XMS_ITS | Encounter Summary ---
Author Organization [employer] ([place], [place], [place], [place]) Address [address] [place] [address] Care Team Providers Care Bottom Wheeler Name Role Phone Unavailable Primary Care Provider Unavailabl e Encounter Details Date Type Department Care Team (Late st Contact Info) Description 11/03/2019 Transcribed Document [facility] [place] Family Medicine [address] [place] [address] ProviderAgnieszka MD [address] [place], [place] [id number] Social History Tobacco Use Types Packs/Day Years [...] On: 11/03/2019 14:41 EDT by OC PRINCE Animal Damage Control Agent Primary Insurance Authorization Authorization and Policy Numbers : Insurance 1 Health Plan: MEDICARE Policy Number: [id number] Authorization Number: Insurance 2 Health Plan: FOR LIFE Policy Number: [id number] Authorization Number: Insurance Primary Name : MEDICARE Policy Number: [id number] Authorized Service Begin Date-Primary : 11/02/2019 EDT Authorization Comments-Primary : patient is scheduled for Lumbar Fusion Posterior on 11/05/2019 Pt is currently admitted as an inpt already on 4A. Historical Authorization Comments-Primary : No Authorization Comments Found OC PRINCE, Animal Damage Control Agent - 11/03/2019 14:41 EDT Electronically signed by Gay Centeno Conversion Welding Machine Operator Electroslag Cerner at 11/12/2022 9:36 PM CDT documented in this encounter Plan of Treatment Not on file documented as of this encounter Visit Diagnoses Not on filedocumented in this encounter
--- OUTSIDE RECORDS SUMMARY | 2025-05-19 14:20 | XMS_ITS | Encounter Summary ---
Author Organization [employer] ([place], [place], [place], [place]) Address [address] [place] [address] Care Team Providers Care Sterile Technician Name Role Phone Unavailable Primary Care Provider Unavailabl e Encounter Details Date Type Department Care Team (Late st Contact Info) Description 11/09/2019 Transcribed Document [facility] [place] Family Medicine [facility] [place] [address] ProviderAgnieszka MD [address] [place], [place] [address] Social History Tobacco Use Types Packs/Day Years [...] mL: 2 Gram, 200 mL/Hr, IV Piggyback, [id number] docusate sodium: 200 mg, Oral, BID heparin: [...] mL: 1,250 mg, 250 mL/Hr, IV Piggyback, [id number] Pending Complete fentaNYL: 25 mcg, IV Push, Q10Min Documented Medications Documented Azilect 1 mg oral tablet: 1 Tab, Oral, Daily, 30 Tab, 0 Refill(s) Remicade: 10 mg/kg, IntraVENous, [id number], for Ulcerative Colitis; Last dose: 09/29/2019, 0 [...] micro id prior to making plans for [facility] transfer -- probiotic ?Continue to follow cultures and sensitivity reports an just antibiotics accordingly ?Follow daily labs while in hospital and trend results Discussed at length with in room documented in this encounter Plan of Treatment Not on file documented as of this encounter Visit Diagnoses Not on filedocumented in this encounter
--- OUTSIDE RECORDS SUMMARY | 2025-05-19 14:20 | XMS_ITS | Encounter Summary ---
Author Organization [employer] ([place], [place], [place], [place]) Address [address] [place] [address] Care Team Providers Care Basket Assembler Name Role Phone Unavailable Primary Care Provider Unavailabl e Encounter Details Date Type Department Care Team (Late st Contact Info) Description 11/05/2019 Transcribed Document [facility] [place] [address] [place] [address] ProviderAgnieszka MD [address] [place], [place] [id number] Social History Tobacco Use Types Packs/Day Years Used Date Smoking Tobacco: Never Assessed Sex and Gender Information Value Date Recorded Sex Assigned at Not on file Legal Sex Male 2:38 PM CDT Gender Identity Not on file Sexual Orientation Not on file documented as of this encounter Miscellaneous Notes * Cerner Conversion Note - Agnieszka ProviderMD - 11/05/2019 9:27 AM CDT [facility] Main OR PACU Summary Primary Physician: HEIDE KAT MD-U Finalized Date/Time: 11/05/19 13:46:04 Pt. Name: SIMBA MAYEN JR/Sex: 1950 Male Med Rec #: [id number] Physician: LORENA SAGASTUME MD-INT Financial #: [id number] Pt. Type: I Room/Bed: [facility]/ Admit/Disch: 11/02/19 02:59:00 - Institution: [facility] Main OR PACU I Case Times Entry 1 In PACU I 11/05/19 12:11:00 Ready for PACU 11/05/19 13:40:00 Discharge Discharge from PACU 11/05/19 13:40:00 I Last Modified By: Danelle Fam RN 11/05/19 13:44:22 Finalized By: Danelle Fam, RN Document Signatures Signed By: Danelle Fam RN 11/05/19 13:46 Electronically signed by Taryn [facility] Conversion Supervisor Ore Dressing Cerner at 11/12/2022 9:32 PM CDT documented in this encounter Plan of Treatment Not on file documented as of this encounter Visit Diagnoses Not on filedocumented in this encounter
--- OUTSIDE RECORDS SUMMARY | 2025-05-19 14:20 | XMS_ITS | Encounter Summary ---
Author Organization [employer] ([place], [place], [place], [place]) Address [address] [place] [address] Care Team Providers Care Stock Checker Name Role Phone Unavailable Primary Care Provider Unavailabl e Encounter Details Date Type Department Care Team (Late st Contact Info) Description 11/03/2019 Transcribed Document [facility] [place] Family Medicine [facility] [place] [address] ProviderAgnieszka MD [address] [place], [place] [phone] Social History Tobacco Use Types Packs/Day Years [...] On: 11/03/2019 14:32 EDT by ELKE VELÁZQUEZ, Group Teacher-Door To Door Salesperson Care Management Progress Note Discharge Arrangements : [...] Attend Multidisciplinary Rounds? : No ELKE VELÁZQUEZ, Group Teacher-Door To Door Salesperson - 11/03/2019 14:32 EDT Narrative Progress Note Narrative Progress Note : Patient is scheduled for an MRI on and surgery on Friday. He reported wanting to go to [facility]. Cm sent referral packet to [facility]. ELKE VELÁZQUEZ Group Teacher-Door To Door Salesperson - 11/03/2019 14:32 EDT documented in this encounter Plan of Treatment Not on file documented as of this encounter Visit Diagnoses Not on filedocumented in this encounter
--- OUTSIDE RECORDS SUMMARY | 2025-05-19 14:20 | XMS_ITS | Encounter Summary ---
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 JACQUI MCGUIRE, PT - 11/09/2019 11:42 [...] JACQUI MCGUIRE, PT - 11/09/2019 11:42 EDT Manager Pacu Goals Mobility/Bed Mobility LTG PT Grid Goal [...] JACQUI MCGUIRE, PT - 11/09/2019 11:42 EDT [place] PT Charges PT Re-Evaluation : 1 JACQUI [...]
--- OUTSIDE RECORDS SUMMARY | 2025-05-19 14:20 | XMS_ITS | Encounter Summary ---
Author Organization [employer] ([place], [place], [place], [place]) Address [address] [place] [address] Care Team Providers Care Soda Drier Feeder Name Role Phone Unavailable Primary Care Provider Unavailabl e Encounter Details Date Type Department Care Team (Late st Contact Info) Description 11/03/2019 Transcribed Document [facility] [place] Family Medicine [address] [place] [address] ProviderAgnieszka MD [address] [place], [place] [address] Social History Tobacco Use Types Packs/Day Years [...]
--- OUTSIDE RECORDS SUMMARY | 2025-05-19 14:20 | XMS_ITS | Encounter Summary ---
Author Organization [employer] ([place], [place], [place], [place]) Address [address] [place] [address] Care Team Providers Care Heel Sander Rubber Name Role Phone Unavailable Primary Care Provider Unavailabl e Encounter Details Date Type Department Care Team (Late st Contact Info) Description 11/05/2019 Transcribed Document [facility] [place] [address] [place] [address] ProviderAgnieszka MD [address], [place] [id number] Social History Tobacco Use Types Packs/Day Years [...]
--- OUTSIDE RECORDS SUMMARY | 2025-05-19 14:20 | XMS_ITS | Encounter Summary ---
Author Organization [employer] ([place], [place], [place], [place]) Address [address] [place] [address] Care Team Providers Care Manager Transportation Name Role Phone Unavailable Primary Care Provider Unavailabl e Encounter Details Date Type Department Care Team (Late st Contact Info) Description 11/08/2019 Transcribed Document [facility] [place] Family Medicine [address] [place] [address] ProviderAgnieszka MD [address], [place] [id number] Social History Tobacco Use Types Packs/Day Years [...]
--- OUTSIDE RECORDS SUMMARY | 2025-05-19 14:20 | XMS_ITS | Encounter Summary ---
Author Organization [employer] ([place], [place], [place], [place]) Address [address] [place] [address] Care Team Providers Care Golf Course Superintendent Name Role Phone Unavailable Primary Care Provider Unavailabl e Encounter Details Date Type Department Care Team (Late st Contact Info) Description 11/04/2019 Transcribed Document [facility] [place] Family Medicine [facility] [place] [address] ProviderAgnieszka MD [address] [place], [place] [address] Social History Tobacco Use Types Packs/Day Years [...] MiraLax: 17 Gram, Oral, Daily, PRN: Constipation [place] 10 mg-325 mg oral tablet: 1 Tab, [...] mL: 2 Gram, 100 mL/Hr, IV Piggyback, [id number] heparin: 5,000 Units, SubCutaneous, Q8H hydrALAZINE: 10 mg, IV Push, Q6H, PRN: Hypertension lactobacillus acidophilus: 1 Cap, Oral, Daily morphine: 2 mg, IV Push, Q2H, PRN: Pain (Severe 7-10) sodium chloride 0.9% injectable solution: 10 mL, IV Push, Q8H vancomycin + Sodium Chloride 0.9% intravenous solution 250 mL: 1,250 mg, 250 mL/Hr, IV Piggyback, [id number] Documented Medications Documented Azilect 1 mg oral tablet: 1 Tab, Oral, Daily, 30 Tab, 0 Refill(s) Remicade: 10 mg/kg, IntraVENous, A9Iotig, for Ulcerative Colitis; Last dose: 09/29/2019, 0 [...]
--- OUTSIDE RECORDS SUMMARY | 2025-05-19 14:20 | XMS_ITS | Encounter Summary ---
Author Organization [employer] ([place], [place], [place], [place]) Address [address] [place] [address] Care Team Providers Care Chiller Operator Name Role Phone Unavailable Primary Care Provider Unavailabl e Encounter Details Date Type Department Care Team (Late st Contact Info) Description 11/05/2019 Transcribed Document [facility] [place] Family Medicine [facility] [place] [address] ProviderAgnieszka MD [address] [place], [place] [id number] Social History Tobacco Use Types Packs/Day Years [...] : Yes Central Line Insertion Facility : [facility] Central Line Insertion Start Date/Time : 11/05/2019 15:37 EDT Central Catheter Type : Power injection PICC Central Line Lot Number : [id number] Central Line Vessel Cannulated : Median basilic [...] EDT Electronically signed by Gay Centeno Conversion Forming Roll Operator Heavy Duty Cerner at 11/12/2022 9:37 PM CDT documented in this encounter Plan of Treatment Not on file documented as of this encounter Visit Diagnoses Not on filedocumented in this encounter
--- OUTSIDE RECORDS SUMMARY | 2025-05-19 14:20 | XMS_ITS | Encounter Summary ---
Author Organization [email or web address] ([place], [place], [place], [place]) Address [address] [place] [address] Care Team Providers Care Check Inspector Name Role Phone Unavailable Primary Care Provider Unavailabl e Encounter Details Date Type Department Care Team (Late st Contact Info) Description 11/05/2019 Transcribed Document [facility] [place] Family Medicine [facility] [place] [address] ProviderAgnieszka MD [address] [place], [place] [id number] Social History Tobacco Use Types Packs/Day Years [...] On: 11/09/2019 0:39 EDT by Radha Josue Setter Off-Health Unit Coord Intervention Information: oxyCODONE Performed by Radha Josue Setter Off-Health Unit Coord on 11/08/2019 23:39:00 EDT oxyCODONE,10mg Oral,Pain (Moderate 4-6) Pain Assessment Pain Assessment : Follow-up assessment Pain Scale Goal : 2 Pain Scale Used : 0-10 Scale Radha Josue Care Asst-Health Unit Coord - 11/09/2019 4:50 EDT Pain Scale Intensity : 1 Radha Josue Setter Off-Health Unit Coord - 11/09/2019 4:50 EDT Image 4 - Images currently included in the form version of this document have not been included in the text rendition version of the form. documented in this encounter Plan of Treatment Not on file documented as of this encounter Visit Diagnoses Not on filedocumented in this encounter
--- OUTSIDE RECORDS SUMMARY | 2025-05-19 14:20 | XMS_ITS | Referral Summary ---
Author Organization [email or web address] ([place], [place], [place], [place]) Address [address] [place] [address] Care Team Providers Care Tower Dragline Operator Name Role Phone Unavailable Primary Care [...]
--- OUTSIDE RECORDS SUMMARY | 2025-05-19 14:20 | XMS_ITS | Encounter Summary ---
Author Organization [employer] ([place], [place], [place], [place]) Address [address] [place] [address] Care Team Providers Care Fisher Name Role Phone Unavailable Primary Care Provider Unavailabl e Encounter Details Date Type Department Care Team (Late st Contact Info) Description 11/04/2019 Transcribed Document [facility] [place] Family Medicine [facility] [place] [address] ProviderAgnieszka MD [address] [place], [place] [address] Social History Tobacco Use Types Packs/Day Years [...] On: 11/04/2019 13:05 EDT by ELKE VELÁZQUEZ, Helpdesk Analyst-Pole Climber Care Management Progress Note Discharge Arrangements : [...] Attend Multidisciplinary Rounds? : No ELKE VELÁZQUEZ Helpdesk Analyst-Pole Climber - 11/04/2019 13:05 EDT Narrative Progress Note Narrative Progress Note : Elvia stated that [facility] is following for patient placement. Patient is scheduled for surgery Friday11/05/19. Cm will continue to follow. Historical Progress Note : Patient is scheduled for an MRI on and surgery on Friday. He reported wanting to go to [facility]. Cm sent referral packet to [facility]. ELKE VELÁZQUEZ Helpdesk Analyst-Pole Climber - 11/03/19 14:33:22 ELKE VELÁZQUEZ Helpdesk Analyst-Pole Climber - 11/04/2019 13:05 EDT documented in this encounter Plan of Treatment Not on file documented as of this encounter Visit Diagnoses Not on filedocumented in this encounter
--- OUTSIDE RECORDS SUMMARY | 2025-05-19 14:20 | XMS_ITS | Encounter Summary ---
Author Organization [employer] ([place], [place], [place], [place]) Address [address] [place] [address] Care Team Providers Care Clinical Assessment Manager Name Role Phone Unavailable Primary Care Provider Unavailabl e Encounter Details Date Type Department Care Team (Late st Contact Info) Description 11/05/2019 Transcribed Document [facility] [place] [address] [place] [address] ProviderAgnieszka MD [address], [place] [id number] Social History Tobacco Use Types Packs/Day Years [...]
--- OUTSIDE RECORDS SUMMARY | 2025-05-19 14:20 | XMS_ITS | Encounter Summary ---
Author Organization [employer] ([place], [place], [place], [place]) Address [address] [place] [address] Care Team Providers Care Diorama Model Maker Name Role Phone Unavailable Primary Care Provider Unavailabl e Encounter Details Date Type Department Care Team (Late st Contact Info) Description 11/03/2019 Transcribed Document [facility] [place] Family Medicine [facility] [place] [address] ProviderAgnieszka MD [address] [place], [place] [address] Social History Tobacco Use Types Packs/Day Years [...] mL: 2 Gram, 100 mL/Hr, IV Piggyback, [id number] lactobacillus acidophilus: 1 Cap, Oral, Daily vancomycin + Sodium Chloride 0.9% intravenous solution 250 mL: 1,250 mg, 250 mL/Hr, IV Piggyback, [id number] Physical Examination VS/Measurements Vitals Signs (last 24 [...] EDT Height Source Stated Height Entry Format [place] Height/Length, AZERI (ft) 5 ft Height/Length AZERI 9 Inch CLINICALHEIGHT 175.26 cm [place] Body Weight 70 kg Weight Source Standing scale Weight Entry Format [place] Weight [place] lb 178 lb Weight [place] oz 6 oz CLINICALWEIGHT 81.08 kg Body Surface Area (BSA) 1.97 m2 Body Mass Index 26.4 kg/m2 HI 11/02/2019 0:47 EDT Height Source Stated Height Entry Format [place] Height/Length, AZERI (ft) 5 ft Height/Length AZERI 9 Inch CLINICALHEIGHT 175.26 cm [place] Body Weight 69.73 kg Weight Source, ED Critical estimated dosing weight Weight Entry Format [place] Weight [place] lb 205 lb CLINICALWEIGHT 93.18 kg Body [...]
--- OUTSIDE RECORDS SUMMARY | 2025-05-19 14:20 | XMS_ITS | Encounter Summary ---
Author Organization [employer] ([place], [place], [place], [place]) Address [address] [place] [address] Care Team Providers Care Physiognomist Name Role Phone Unavailable Primary Care Provider Unavailabl e Encounter Details Date Type Department Care Team (Late st Contact Info) Description 11/08/2019 Transcribed Document [facility] [place] [address] [place] [address] ProviderAgnieszka MD [address] [place], [place] [address] Social History Tobacco Use Types Packs/Day Years [...]
--- OUTSIDE RECORDS SUMMARY | 2025-05-19 14:20 | XMS_ITS | Encounter Summary ---
Author Organization [employer] ([place], [place], [place], [place]) Address [address] [place] [address] Care Team Providers Care Ship Rigger Apprentice Name Role Phone Unavailable Primary Care Provider Unavailabl e Encounter Details Date Type Department Care Team (Late st Contact Info) Description 11/04/2019 Transcribed Document [facility] [place] [facility] [place] [address] ProviderAgnieszka MD [address], [place] [id number] Social History Tobacco Use Types Packs/Day Years [...]
--- OUTSIDE RECORDS SUMMARY | 2025-05-19 14:21 | XMS_ITS | Encounter Summary ---
Author Organization [employer] ([place], [place], [place], [place]) Address [address] [place] [address] Care Team Providers Care Client Service Professional Name Role Phone Unavailable Primary Care Provider Unavailabl e Encounter Details Date Type Department Care Team (Late st Contact Info) Description 11/03/2019 Transcribed Document [facility] [place] Family Medicine [address] [place] [address] ProviderAgnieszka MD [address], [place] [id number] Social History Tobacco Use Types Packs/Day Years [...] JESSICA ROSENBAUM OTR/L - 11/04/2019 13:16 EDT Penitentiary Goals, OT Grooming LTG Grid Goal #1 [...] 153/102 last reading in supine. Taken by WATCH AND CLOCK REPAIRER. 144/103 seated EOB. Pt left up in chair, all needs in reach. Additional Objective Information : Pt came to EOB log roll with heraclio Mcdanile. Pt stood on second attempt with JOSÉ [...]
--- OUTSIDE RECORDS SUMMARY | 2025-05-19 14:21 | XMS_ITS | Encounter Summary ---
Author Organization [employer] ([place], [place], [place], [place]) Address [address] [place] [address] Care Team Providers Care Mica Patcher Name Role Phone Unavailable Primary Care Provider Unavailabl e Encounter Details Date Type Department Care Team (Late st Contact Info) Description 12/22/2018 Transcribed Document [facility] [place] [address] [place] [address] ProviderAgnieszka MD [address], [place] [id number] Social History Tobacco Use Types Packs/Day Years [...]
--- OUTSIDE RECORDS SUMMARY | 2025-05-19 14:21 | XMS_ITS | Encounter Summary ---
Author Organization [employer] ([place], [place], [place], [place]) Address [address] [place] [address] Care Team Providers Care Support Team Assoc Name Role Phone Unavailable Primary Care Provider Unavailabl e Encounter Details Date Type Department Care Team (Late st Contact Info) Description 11/02/2019 Transcribed Document [facility] [place] [address] [place] [address] ProviderAgnieszka MD [address] [place], [place] [address] Social History Tobacco Use Types Packs/Day Years [...] On: 11/02/2019 12:45 EDT by ELKE VELÁZQUEZ Bobj Developer-Ledger Poster Initial Assessment I Previously Documented Living Environment : No qualifying data available. Living Situation : Home Patient Lives With : Spouse Is the Patient a Caregiver at Home? : No Employment/Vocation : Retired Emergency Contact #1 : Marlys Mason Emergency Contact #1 Emergency Contact #1 Relationship : Emergency Contact #2 : Lexii Mason Emergency Contact #2 Phone Number : [phone] Emergency Contact #2 Relationship : Mother Enter Doctors Name : Dr. Faustino Jones Does Patient have PCP Listed? : Yes Legal Guardian : No Is Guardianship Needed : No ELKE VELÁZQUEZ Bobj Developer-Ledger Poster - 11/02/2019 12:45 EDT Initial Assessment II Sensory and Motor Deficits : Other: Parkinson's Current Home Treatments and Equipment : None ELKE VELÁZQUEZ Bobj Developer-Ledger Poster - 11/02/2019 12:45 EDT Discharge Needs I Anticipated Discharge To, CM : Home independently Current Home Treatment/Equipment : Current Home Treatment/Equipment No qualifying data available. Post Acute/Home Treatments : None Documentation Status Complete : Yes ELKE VELÁZQUEZ Bobj Developer-Ledger Poster - 11/02/2019 12:45 EDT Discharge Needs II Professional Skilled Services : Professional Skilled Services No qualifying data available. Needs Assistance with Transportation : No Discharge Options Discussed with Patient : Acute rehabilitation, Discharge transportation, DME, Home Health, Short term rehabilitation ELKE VELÁZQUEZ Bobj Developer-Ledger Poster - 11/02/2019 12:45 EDT Narrative Note Narrative Note : Patient is a low readmission risk of 34. Patient reported that he has HH in the past through [facility]. Patient reported that he has also been to [facility] in the past. Both of these services were last November. Patient stated that he is ADL independent. He stated that his can transport him home. Patient denied expecting to need any services at discharge. CM will continue to follow. ELKE VELÁZQUEZ Bobj Developer-Ledger Poster - 11/02/2019 12:45 EDT documented in this encounter Plan of Treatment Not on file documented as of this encounter Visit Diagnoses Not on filedocumented in this encounter
--- OUTSIDE RECORDS SUMMARY | 2025-05-19 14:21 | XMS_ITS | Encounter Summary ---
Author Organization [employer] ([place], [place], [place], [place]) Address [address] [place] [address] Care Team Providers Care Buckshot Swage Operator Name Role Phone Unavailable Primary Care Provider Unavailabl e Encounter Details Date Type Department Care Team (Late st Contact Info) Description 11/03/2019 Transcribed Document [facility] Family Medicine [address] [place] [address] ProviderAgnieszka MD [address] [place], [place] [id number] Social History Tobacco Use Types Packs/Day Years [...] Insurance 1 Health Plan: MEDICARE Policy Number: [id number] Authorization Number: Insurance 2 Health Plan: FOR LIFE Policy Number: [id number] Authorization Number: Insurance Primary Name : MEDICARE Policy Number: [id number] Authorized Service Begin Date-Primary : 11/02/2019 EDT Historical Authorization Comments-Primary : No Authorization Comments Found SIMÓN MUSA RN - 11/03/2019 12:44 EDT documented in this encounter Plan of Treatment Not on file documented as of this encounter Visit Diagnoses Not on filedocumented in this encounter
--- OUTSIDE RECORDS SUMMARY | 2025-05-19 14:21 | XMS_ITS | Encounter Summary ---
Author Organization [employer] ([place], [place], [place], [place]) Address [address] [place] [address] Care Team Providers Care Back End Developer Name Role Phone Unavailable Primary Care Provider Unavailabl e Encounter Details Date Type Department Care Team (Late st Contact Info) Description 11/02/2019 Transcribed Document [facility] [place] Family Medicine [facility] [place] [address] ProviderAgnieszka MD [address], [place] [id number] Social History Tobacco Use Types Packs/Day Years [...] : 3 - Urgent Tracking Group : [facility] ED Danelle Maya RN - 11/02/2019 0:47 [...] 11/02/2019 00:50:04 EDT) Problems(Active) Arthritis (SNOMED CT :8959305 ) Name of Problem: Arthritis ; Recorder: MILTON GAMEZ RN; Confirmation: Confirmed ; Classification: Medical ; Code: [id number] ; Contributor System: [employer] ; Last Updated: 12/16/2018 11:30 EDT ; Life Cycle Date: 12/16/2018 ; Life Cycle Status: Active ; Vocabulary: SNOMED CT Colitis (SNOMED CT :1121302405 ) Name of Problem: Colitis ; Recorder: MILTON GAMEZ RN; Confirmation: Confirmed ; Classification: Medical ; Code: [id number] ; Contributor System: [employer] ; Last Updated: 12/16/2018 11:30 EDT ; Life Cycle Date: 12/16/2018 ; Life Cycle Status: Active ; Vocabulary: SNOMED CT DJD (degenerative joint disease) of thoracic spine (SNOMED CT :0727634091 ) Name of Problem: DJD (degenerative joint disease) of thoracic spine ; Recorder: MILTON GAMEZ RN; Confirmation: Confirmed ; Classification: Medical ; Code: [id number] ; Contributor System: [employer] ; Last Updated: 12/16/2018 11:30 EDT ; Life Cycle Date: 12/16/2018 ; Life Cycle Status: Active ; Vocabulary: SNOMED CT History of obstructive sleep apnea (IMO :21274739 ) Name of Problem: History of obstructive sleep apnea ; Recorder: SYSTEM, SYSTEM; Confirmation: Confirmed ; Classification: Medical ; Code: [id number] ; Last Updated: 12/16/2018 11:47 EDT ; Life Cycle Date: 12/16/2018 ; Life Cycle Status: Active ; Vocabulary: IMO Parkinson disease (SNOMED CT :87936394 ) Name of Problem: Parkinson disease ; Recorder: MILTON GAMEZ RN; Confirmation: Confirmed ; Classification: Medical ; Code: [id number] ; Contributor System: [employer] ; Last Updated: 12/16/2018 11:28 EDT ; Life Cycle Date: 12/16/2018 ; Life Cycle Status: Active ; Vocabulary: SNOMED CT Scoliosis (SNOMED CT :049681813 ) Name of Problem: Scoliosis ; Recorder: MILTON GAMEZ RN; Confirmation: Confirmed ; Classification: Medical ; Code: [id number] ; Contributor System: [employer] ; Last Updated: 12/16/2018 11:29 EDT ; Life Cycle Date: 12/16/2018 ; Life Cycle Status: Active ; Vocabulary: SNOMED CT Diagnoses(Active) Back pain Date: 11/02/2019 ; Diagnosis Type: Reason For Visit ; Confirmation: Complaint of ; Clinical Dx: Back pain ; Classification: Medical ; Clinical Service: Non-Specified ; Code: PNED ; Probability: 0 ; Diagnosis Code: [id number] ED Height and Weight Height Source : Stated Height Entry Format : [place] Height, Feet : 5 ft(Converted to: 152 cm, 60 Inch) Height, Inches : 9 Inch(Converted to: 0 ft 9 Inch, 22.86 cm) Clinical Height : 175.26 cm Weight Source, ED : Critical estimated dosing weight Weight Entry Format : [place] Weight, Pounds : 205 lb Clinical Dosing Weight : 93.18 kg Body Surface Area (BSA) : 2.09 m2 Body Mass Index : 30.3 kg/m2 (HI) [place] Body Weight (IBW) : 69.73 kg Danelle Maya RN - 11/02/2019 0:47 EDT documented in this encounter Plan of Treatment Not on file documented as of this encounter Visit Diagnoses Not on filedocumented in this encounter
--- OUTSIDE RECORDS SUMMARY | 2025-05-19 14:21 | XMS_ITS | Encounter Summary ---
Author Organization [employer] ([place], [place], [place], [place]) Address [address] [place] [address] Care Team Providers Care Head Athletic Trainer/Strength Coach Name Role Phone Unavailable Primary Care Provider Unavailabl e Encounter Details Date Type Department Care Team (Late st Contact Info) Description 12/22/2018 Transcribed Document [facility] [place] [address] [place] [address] ProviderAgnieszka MD [address] [place], [place] [address] Social History Tobacco Use Types Packs/Day Years [...]
--- OUTSIDE RECORDS SUMMARY | 2025-05-19 14:21 | XMS_ITS | Encounter Summary ---
Author Organization [employer] ([place], [place], [place], [place]) Address [address] [place] [address] Care Team Providers Care Instructor Military Science Name Role Phone Unavailable Primary Care Provider Unavailabl e Encounter Details Date Type Department Care Team (Late st Contact Info) Description 11/03/2019 Transcribed Document [facility] [place] Family Medicine [address] [place] [address] ProviderAgnieszka MD [address] [place], [place] [address] Social History Tobacco Use Types Packs/Day Years [...]
--- OUTSIDE RECORDS SUMMARY | 2025-05-19 14:21 | XMS_ITS | Encounter Summary ---
Author Organization [employer] ([place], [place], [place], [place]) Address [address] [place] [address] Care Team Providers Care Brinell Tester Name Role Phone Unavailable Primary Care Provider Unavailabl e Encounter Details Date Type Department Care Team (Late st Contact Info) Description 11/07/2019 Transcribed Document [facility] Family Medicine [address] [place] [address] ProviderAgnieszka MD [address], [place] [address] Social History Tobacco Use Types Packs/Day Years [...]
--- OUTSIDE RECORDS SUMMARY | 2025-05-19 14:21 | XMS_ITS | Encounter Summary ---
Author Organization [employer] ([place], [place], [place], [place]) Address [address] [place] [address] Care Team Providers Care Straw Hat Washer Operator Name Role Phone Unavailable Primary Care Provider Unavailabl e Encounter Details Date Type Department Care Team (Late st Contact Info) Description 11/02/2019 Transcribed Document [facility] [place] Family Medicine [address] [place] [address] ProviderAgnieszka MD [address] [place], [place] [address] Social History Tobacco Use Types Packs/Day Years [...]
--- OUTSIDE RECORDS SUMMARY | 2025-05-19 14:21 | XMS_ITS | Encounter Summary ---
Author Organization [employer] ([place], [place], [place], [place]) Address [address] [place] [address] Care Team Providers Care Road Cleaner Name Role Phone Unavailable Primary Care Provider Unavailabl e Encounter Details Date Type Department Care Team (Late st Contact Info) Description 11/02/2019 Transcribed Document [facility] [place] Medicine [facility] [place] [address] ProviderAgnieszka MD [address], [place] [address] Social History Tobacco Use Types Packs/Day Years [...] [place] Emergency Contact #2 Phone Number : [phone] Emergency Contact #2 Relationship : Mother Chief Complaint : presents w/ lower and upper back spasms x 3-4 days Information Obtained From : Patient Primary Language : Vincentian Communication Barrier : None Joyce Melendez RN [...] Scale Risk Level : 25-45 Medium Risk Harrison Fall Interventions : Adequate lighting, Assistive devices [...] Source : Stated Height Entry Format : [place] Height, Feet : 5 ft(Converted to: 152 cm, 60 Inch) Height, Inches : 9 Inch(Converted to: 0 ft 9 Inch, 22.86 cm) Clinical Height : 175.26 cm Weight Source : Standing scale Weight Entry Format : [place] Clinical Dosing Weight : 81.08 kg Weight, Pounds : 178 lb Weight, Ounces : 6 oz Body Surface Area (BSA) : 1.97 m2 Body Mass Index : 26.4 kg/m2 (HI) [place] Body Weight : 70 kg Joyce Melendez [...] Joyce Melendez RN - 11/02/2019 3:36 EDT [place] Suicide Severity Rating Scale (C-SSRS) CSSRS Past [...]
--- OUTSIDE RECORDS SUMMARY | 2025-05-19 14:21 | XMS_ITS | Encounter Summary ---
Author Organization [employer] ([place], [place], [place], [place]) Address [address] [place] [address] Care Team Providers Care Direct Care Staffer Name Role Phone Unavailable Primary Care Provider Unavailabl e Encounter Details Date Type Department Care Team (Late st Contact Info) Description 11/07/2019 Transcribed Document [facility] [place] [facility] [place] [address] ProviderAgnieszka MD [address], [place] [address] Social History Tobacco Use Types Packs/Day Years [...] mL: 2 Gram, 200 mL/Hr, IV Piggyback, [id number] docusate sodium: 200 mg, Oral, BID hydrALAZINE: [...] mL: 1,250 mg, 250 mL/Hr, IV Piggyback, [id number] Pending Complete fentaNYL: 25 mcg, IV Push, Q10Min Documented Medications Documented Azilect 1 mg oral tablet: 1 Tab, Oral, Daily, 30 Tab, 0 Refill(s) Remicade: 10 mg/kg, IntraVENous, R1Jldns, for Ulcerative Colitis; Last dose: 09/29/2019, 0 [...] *MBP* 100 mL 2 Gram, IV Piggyback, Y97SZpa docusate sodium 100 mg cap 200 mg 2 Cap, Oral, BID lactobacillus acidophilus cap 1 Cap, Oral, Daily rasagiline 1 mg tab 1 mg 1 Tab, Oral, Daily vancomycin + NaCl 0.9% 250 mL 1,250 mg, IV Piggyback, Z82WLkg Continuous: (1) lactated ringers 1,000 mL 1,000 [...] All Problems Parkinson disease / SNOMED CT 83808997 / Confirmed Scoliosis / SNOMED CT 518629205 / Confirmed Colitis / SNOMED CT 3142128186 / Confirmed Arthritis / SNOMED CT 2867602 / Confirmed DJD (degenerative joint disease) of thoracic spine / SNOMED CT 1055323886 / Confirmed History of obstructive sleep apnea / IMO 01881178 / Confirmed, Active Problems (6) Arthritis Colitis [...] Dr. Alyssa DONATO DC Electronically signed by [facility] Conversion Client Manager Cerner at 11/12/2022 9:35 PM CDT documented in this encounter Plan of Treatment Not on file documented as of this encounter Visit Diagnoses Not on filedocumented in this encounter
--- OUTSIDE RECORDS SUMMARY | 2025-05-19 14:21 | XMS_ITS | Encounter Summary ---
Author Organization [employer] ([place], [place], [place], [place]) Address [address] [place] [address] Care Team Providers Care Scrap Crusher Name Role Phone Unavailable Primary Care Provider Unavailabl e Encounter Details Date Type Department Care Team (Late st Contact Info) Description 11/07/2019 Transcribed Document [facility] [place] Family Medicine [address] [place] [address] ProviderAgnieszka MD [address], [place] [address] Social History Tobacco Use Types Packs/Day Years [...]
--- OUTSIDE RECORDS SUMMARY | 2025-05-19 14:21 | XMS_ITS | Encounter Summary ---
Author Organization [employer] ([place], [place], [place], [place]) Address [address] [place] [address] Care Team Providers Care Outreach Specialist Name Role Phone Unavailable Primary Care Provider Unavailabl e Encounter Details Date Type Department Care Team (Late st Contact Info) Description 11/03/2019 Transcribed Document [facility] [place] [address] ProviderAgnieszka MD [address], [place] [id number] Social History Tobacco Use Types Packs/Day Years [...] 1950 Associated Diagnoses: None Author: BROOKS GORE, [facility] 69yoM with Low Back Pain [...] intraop cultures Thank You, Brooks Gore RPh Electronically signed by [facility] Conversion Water Pollution Control Technician Cerner at 11/12/2022 9:34 PM CDT documented in this encounter Plan of Treatment Not on file documented as of this encounter Visit Diagnoses Not on filedocumented in this encounter
--- OUTSIDE RECORDS SUMMARY | 2025-05-19 14:21 | XMS_ITS | Encounter Summary ---
Author Organization [employer] ([place], [place], [place], [place]) Address [address] [place] [address] Care Team Providers Care Nursing Staff Development Coordinator Name Role Phone Unavailable Primary Care Provider Unavailabl e Encounter Details Date Type Department Care Team (Late st Contact Info) Description 11/03/2019 Transcribed Document [facility] [place] Family Medicine [address] [place] [address] ProviderAgnieszka MD [address], [place] [address] Social History Tobacco Use Types Packs/Day Years Used Date Smoking Tobacco: Never Assessed Sex and Gender Information Value Date Recorded Sex Assigned at Not on file Legal Sex Male 2:38 PM CDT Gender Identity Not on file Sexual Orientation Not on file documented as of this encounter Miscellaneous Notes * [employer] Conversion Note - Historical ProviderMD - 11/03/2019 2:00 AM CDT Leather Scraper Details Entered On: 11/03/2019 0:41 EDT Performed [...]
--- OUTSIDE RECORDS SUMMARY | 2025-05-19 14:21 | XMS_ITS | Encounter Summary ---
Author Organization [employer] ([place], [place], [place], [place]) Address [address] [place] [address] Care Team Providers Care Lance Crewmember Name Role Phone Unavailable Primary Care Provider Unavailabl e Encounter Details Date Type Department Care Team (Late st Contact Info) Description 11/03/2019 Transcribed Document [facility] Family Medicine [address] [place] [address] ProviderAgnieszka MD [address] [place] [address] Social History Tobacco Use Types [...] 11/04/2019 12:30 EDT Assisted by, PT : veterinary technologist/aide LILA PIERCE, PT - 11/04/2019 11:21 EDT [...] LILA PIERCE, PT - 11/04/2019 12:30 EDT [facility] Goals Mobility/Bed Mobility LTG PT Grid Goal [...] Anticipated Discharge to : Unit, rehabilitation, Unit, jail LILA PIERCE, PT - 11/04/2019 12:[address] [facility] PT Charges Gait Training Each 15 Min : 2 LILA PIERCE PT - 11/04/2019 11:21 EDT documented in this encounter Plan of Treatment Not on file documented as of this encounter Visit Diagnoses Not on filedocumented in this encounter
--- OUTSIDE RECORDS SUMMARY | 2025-05-19 14:22 | XMS_ITS | Encounter Summary ---
Author Organization [employer] ([place], [place], [place], [place]) Address [address] [place] [address] Care Team Providers Care Medical Insurance Coding Specialist Name Role Phone Unavailable Primary Care Provider Unavailabl e Encounter Details Date Type Department Care Team (Late st Contact Info) Description 12/23/2018 Transcribed Document [facility] [place] [address] ProviderAgnieszka MD [address] [place] [address] Social History Tobacco Use Types [...] : 12/22/2018 06:36 Co-treated by, OT : veterinarian assistant (COMMUNITY SERVICE MANAGER) Personal Devices : Personal Devices No Devices [...] MARY MULLER OTR/Lc - 12/24/2018 15:34 EDT Care Home Goals, OT Grooming LTG Grid Goal [...] or set up Equipment : Long Handled Restaurant Management Internship, Sock aid, Long handled shoehorn Date to [...] MARY MULLER OTR/Lc - 12/24/2018 15:34 EDT [place] OT Charges OT Selfcare/Hm Mgmt Ea 15 Min : 2 MARY MULLER OTR/Lc - 12/24/2018 15:34 EDT documented in this encounter Plan of Treatment Not on file documented as of this encounter Visit Diagnoses Not on filedocumented in this encounter
--- OUTSIDE RECORDS SUMMARY | 2025-05-19 14:22 | XMS_ITS | Encounter Summary ---
Author Organization [employer] ([place], [place], [place], [place]) Address [address] [place] [address] Care Team Providers Care Drying Unit Felting Machine Operator Name Role Phone Unavailable Primary Care Provider Unavaillora e Encounter Details Date Type Department Care Team (Late st Contact Info) Description 12/22/2018 Transcribed Document [facility] [place] Family Medicine [facility] [place] [address] ProviderAgnieszka MD [address] [place] [address] Social History Tobacco Use Types [...] 68 yo male who was admitted to [facility] on 12/22 for radiculopathy. s/p L2-S1 laminectomy, [...] : BUE ROM and MMT WFL CHRISSIE AFLK OTR/Lc - 12/23/2018 11:03 EDT Self Care/Home [...] CHRISSIE FALK OTR/L - 12/23/2018 11:03 EDT Director Of Sales Support Goals, OT Grooming LTG Grid Goal #1 [...] or set up Equipment : Long Handled Bariatric Program Coordinator, Sock aid, Long handled shoehorn Date [...] MARTINR/Lc - 12/23/2018 11:03 EDT CHRISSIE FALK SASCAH/Lc - 12/23/2018 11:03 EDT Treatment Note Subjective [...]
--- OUTSIDE RECORDS SUMMARY | 2025-05-19 14:22 | XMS_ITS | Encounter Summary ---
Author Organization [employer] ([place], [place], [place], [place]) Address [address] [place] [address] Care Team Providers Care Monorail Crane Operator Name Role Phone Unavailable Primary Care Provider Unavailabl e Encounter Details Date Type Department Care Team (Late st Contact Info) Description 11/06/2019 Transcribed Document [facility] [place] Family Medicine [address] [place] [address] ProviderAgnieszka MD [address] [place], [place] [address] Social History Tobacco Use Types Packs/Day Years [...]
--- OUTSIDE RECORDS SUMMARY | 2025-05-19 14:22 | XMS_ITS | Encounter Summary ---
Author Organization [employer] ([place], [place], [place], [place]) Address [address] [place] [address] Care Team Providers Care Agriculture Department Chair Name Role Phone Unavailable Primary Care Provider Unavailabl e Encounter Details Date Type Department Care Team (Late st Contact Info) Description 11/07/2019 Transcribed Document [facility] Neurology - [address] [place] [address] Heide Akers MD [address] [facility] [address] [place] [address] Social History Tobacco Use Types [...]
--- OUTSIDE RECORDS SUMMARY | 2025-05-19 14:22 | XMS_ITS | Encounter Summary ---
Author Organization [employer] ([place], [place], [place], [place]) Address [address] [place] [address] Care Team Providers Care Athletic Gear Custodian Name Role Phone Unavailable Primary Care Provider Unavailabl e Encounter Details Date Type Department Care Team (Late st Contact Info) Description 11/07/2019 Transcribed Document [facility] [place] Family Medicine [address] [place] [address] ProviderAgnieszka MD [address] [place], [place] [address] Social History Tobacco Use Types Packs/Day Years [...]
--- OUTSIDE RECORDS SUMMARY | 2025-05-19 14:22 | XMS_ITS | Encounter Summary ---
Author Organization [employer] ([place], [place], [place], [place]) Address [address] [place] [address] Care Team Providers Care Microfilm Equipment Inspector Name Role Phone Unavailable Primary Care Provider Unavailabl e Encounter Details Date Type Department Care Team (Late st Contact Info) Description 11/07/2019 Transcribed Document [facility] Radiology [address] [place] [address] Carlo Evans MD [address] [place], [place] [address] Social History Tobacco Use Types Packs/Day Years [...] pain, and dysuria. ID and NSY following. 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 Vital Signs T: 37.2 [...] acute distress]. Neurologic: [CN I-XII intact, Equal limb driver strength bilaterally, no movement or feeling in [...] for retirement abx -Patient hemodynamically stable, afebrile though low [...] be followed. PICC in place, needs termite treater abx recs prior to discharge. Thyroid US [...] Diagnostic Results Radiology Results (Last 48 hours) [id number] -- 11/02/2019 02:59 MRI Spine Thoracic WO [...] thisdictation.Images reviewed, interpreted, and dictated by A. Goe Alyssa, MD Lab Results Test Name Test [...] Lymph # 1.76 x10(3)/uL 11/07/2019 04:00 EDT [place] % 14.8 % (High) 11/07/2019 04:00 EDT [place] # 1.07 K/uL (High) 11/07/2019 04:00 EDT [...]
--- OUTSIDE RECORDS SUMMARY | 2025-05-19 14:22 | XMS_ITS | Encounter Summary ---
Author Organization [employer] ([place], [place], [place], [place]) Address [address] [place] [address] Care Team Providers Care Cost Clerk Name Role Phone Unavailable Primary Care Provider Unavailabl e Encounter Details Date Type Department Care Team (Late st Contact Info) Description 11/07/2019 Transcribed Document [facility] [place] [address] [place] [address] ProviderAgnieszka MD [address] [place], [place] [address] Social History Tobacco Use Types Packs/Day Years [...]
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
--- OUTSIDE RECORDS SUMMARY | 2025-05-19 14:22 | XMS_ITS | Encounter Summary ---
Author Organization [employer] ([place], [place], [place], [place]) Address [address] [place] [address] Care Team Providers Care Aix Architect Name Role Phone Unavailable Primary Care Provider Unavailabl e Encounter Details Date Type Department Care Team (Late st Contact Info) Description 11/07/[address] [facility] [place] [address] [place] [address] ProviderAgnieszka MD [address] [place], [place] [id number] Social History Tobacco Use Types Packs/Day Years Used Date Smoking Tobacco: Never Assessed Sex and Gender Information Value Date Recorded Sex Assigned at Not on file Legal Sex Male 2:38 PM CDT Gender Identity Not on file Sexual Orientation Not on file documented as of this encounter Miscellaneous Notes * Cerner Conversion Note - Historical ProviderMD - 11/07/2019 2:00 AM CDT Vulcan Crewmember Details Entered On: 11/07/2019 5:13 EDT Performed [...]
--- OUTSIDE RECORDS SUMMARY | 2025-05-19 14:22 | XMS_ITS | Encounter Summary ---
Author Organization [employer] ([place], [place], [place], [place]) Address [address] [place] [address] Care Team Providers Care Bait Tier Name Role Phone Unavailable Primary Care Provider Unavailabl e Encounter Details Date Type Department Care Team (Late st Contact Info) Description 11/06/2019 Transcribed Document [facility] [place] [facility] [place] [address] ProviderAgnieszka MD [address] [place], [place] [address] Social History Tobacco Use Types Packs/Day Years [...] mL: 2 Gram, 200 mL/Hr, IV Piggyback, [id number] docusate sodium: 200 mg, Oral, BID fentaNYL: [...] mL: 1,250 mg, 250 mL/Hr, IV Piggyback, [id number] Pending Complete fentaNYL: 25 mcg, IV Push, Q10Min Documented Medications Documented Azilect 1 mg oral tablet: 1 Tab, Oral, Daily, 30 Tab, 0 Refill(s) Remicade: 10 mg/kg, IntraVENous, [id number], for Ulcerative Colitis; Last dose: 09/29/2019, 0 [...] *MBP* 100 mL 2 Gram, IV Piggyback, F00CHur docusate sodium 100 mg cap 200 mg 2 Cap, Oral, BID lactobacillus acidophilus cap 1 Cap, Oral, Daily rasagiline 1 mg tab 1 mg 1 Tab, Oral, Daily vancomycin + NaCl 0.9% 250 mL 1,250 mg, IV Piggyback, F40ZWpr Continuous: (1) lactated ringers 1,000 mL 1,000 [...] All Problems Parkinson disease / SNOMED CT 99499500 / Confirmed Scoliosis / SNOMED CT 734697314 / Confirmed Colitis / SNOMED CT 7205496341 / Confirmed Arthritis / SNOMED CT 9966071 / Confirmed 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
--- OUTSIDE RECORDS SUMMARY | 2025-05-19 14:22 | XMS_ITS | Encounter Summary ---
Author Organization [employer] ([place], [place], [place], [place]) Address [address] [place] [address] Care Team Providers Care Caddy Packer Name Role Phone Unavailable Primary Care Provider Unavailabl e Encounter Details Date Type Department Care Team (Late st Contact Info) Description 11/07/2019 Transcribed Document [facility] [place] Medicine [address] [place] [address] ProviderAgnieszka MD [address] [place], [place] [address] Social History Tobacco Use Types Packs/Day Years [...]
--- OUTSIDE RECORDS SUMMARY | 2025-05-19 14:22 | XMS_ITS | Encounter Summary ---
Author Organization [employer] ([place], [place], [place], [place]) Address [address] [place] [address] Care Team Providers Care Regulatory Internship Name Role Phone Unavailable Primary Care Provider Unavailabl e Encounter Details Date Type Department Care Team (Late st Contact Info) Description 12/23/2018 Transcribed Document [facility] Medicine [facility] [place] [address] ProviderAgnieszka MD [address] [place] [address] Social History Tobacco Use [...]
--- OUTSIDE RECORDS SUMMARY | 2025-05-19 14:22 | XMS_ITS | Encounter Summary ---
Author Organization [facility] ([place], [place], [place], [place]) Address [address] [place] [address] Care Team Providers Care Car Wrecker Name Role Phone Unavailable Primary Care Provider Unavailabl e Encounter Details Date Type Department Care Team (Late st Contact Info) Description 12/22/2018 Transcribed Document [facility]iology [address] [place] [address] Ivana Salcido MD [facility] [address] [address] Social History Tobacco Use Types [...] BLAS 12/22/18 cc: medical management - awaiting [id number] PLIF per Dr. Akers S: Patient in pre-op. present. Denies F/C/S. Denies SOA or chest pain. Denies headaches. Denies N/V/D. Denies constipation. Denies pain. Denies tobacco or ETOH use. Denies anxiety/depression. Denies any concerns at this time. HPI: Patient is a 68 yo male admitted to [facility] per Dr. Oswald for a I46-dqpal PLIF. Preoperatively patient was found to have [...] (Past 24 Hours) Impression: spondylolisthesis Lspine; awaiting [id number]-scwan PLIF per Dr. Akers hx Arthritis hx [...]
--- OUTSIDE RECORDS SUMMARY | 2025-05-19 14:22 | XMS_ITS | Encounter Summary ---
Author Organization [employer] ([place], [place], [place], [place]) Address [address] [place] [address] Care Team Providers Care Jack Spinner Name Role Phone Unavailable Primary Care Provider Unavailabl e Encounter Details Date Type Department Care Team (Late st Contact Info) Description 11/07/2019 Transcribed Document [facility] [place] [address] [place] [address] ProviderAgnieszka MD [address] [place], [place] [address] Social History Tobacco Use Types Packs/Day Years [...]
--- OUTSIDE RECORDS SUMMARY | 2025-05-19 14:22 | XMS_ITS | Encounter Summary ---
Author Organization [employer] ([place], [place], [place], [place]) Address [address] [place] [address] Care Team Providers Care Demolitionist Name Role Phone Unavailable Primary Care Provider Unavailabl e Encounter Details Date Type Department Care Team (Late st Contact Info) Description 12/23/2018 Transcribed Document [facility] Family Medicine [address] [place] [address] ProviderAgnieszka MD [address] [place] [address] Social History Tobacco Use Types [...] BRIGID KARLEY KEEN - 12/24/2018 14:59 EDT Detention Goals Mobility/Bed Mobility LTG PT [...] OSMANI RAINEY PTA - 12/24/2018 14:59 EDT [facility] PT Charges PT Therap. Exercise 15 min : 1 PT Ther Activities Ea 15 Min : 1 OSMANI RAINEY PTA - 12/24/2018 14:59 EDT documented in this encounter Plan of Treatment Not on file documented as of this encounter Visit Diagnoses Not on filedocumented in this encounter
--- OUTSIDE RECORDS SUMMARY | 2025-05-19 14:22 | XMS_ITS | Encounter Summary ---
Author Organization [employer] ([place], [place], [place], [place]) Address [address] [place] [address] Care Team Providers Care Retail Pos Specialist Name Role Phone Unavailable Primary Care Provider Unavailabl e Encounter Details Date Type Department Care Team (Late st Contact Info) Description 12/22/2018 Transcribed Document [facility] [place] [address] ProviderAgnieszka MD [address], [place] [phone] Social History Tobacco Use Types Packs/Day Years [...] #2 Relationship : , Primary Language : Emirati Communication Barrier : None Melissa Alexander RN [...] Scale Risk Level : 25-45 Medium Risk [place] Fall Interventions : Adequate lighting, Assistive devices [...] Source : Measured Height Entry Format : [place] Height, Feet : 5 ft(Converted to: 152 cm, 60 Inch) Height, Inches : 9 Inch(Converted to: 0 ft 9 Inch, 22.86 cm) Clinical Height : 175.26 cm Weight Source : Standing scale Weight Entry Format : [place] Clinical Dosing Weight : 84.55 kg Weight, Pounds : 186 lb Body Surface Area (BSA) : 2 m2 Body Mass Index : 27.5 kg/m2 ([place]) [place] Body Weight : 70 kg Melissa Alexander [...]
--- OUTSIDE RECORDS SUMMARY | 2025-05-19 14:23 | XMS_ITS | Encounter Summary ---
Author Organization [employer] ([place], [place], [place], [place]) Address [address] [place] [address] Care Team Providers Care Industrial Technology Education Teacher Name Role Phone Unavailable Primary Care Provider Unavailabl e Encounter Details Date Type Department Care Team (Late st Contact Info) Description 12/22/2018 Transcribed Document [facility] [place] [address] [place] [address] ProviderAgnieszka MD [address], [place] [id number] Social History Tobacco Use Types Packs/Day Years Used Date Smoking Tobacco: Never Assessed Sex and Gender Information Value Date Recorded Sex Assigned at Not on file Legal Sex Male 2:38 PM CDT Gender Identity Not on file Sexual Orientation Not on file documented as of this encounter Miscellaneous Notes * Cerner Conversion Note - Historical ProviderMD - 12/22/2018 1:14 PM CDT [facility] Main OR Preop Summary Primary Physician: HEIDE KAT MD-SNU Finalized Date/Time: 12/22/18 15:35:45 Pt. Name: SIMBA MAYEN JR/Sex: 1950 Male Med Rec #: [id number] Physician: HEIDE KAT MD-DIVYA Financial #: [id number] Pt. Type: I Room/Bed: ASA/3 Admit/Disch: 12/22/18 06:36:00 - Institution: [facility] PreOp Case Times Entry 1 In Preop 12/22/18 07:58:00 Ready for Holding n/a Room Patient Ready for 12/22/18 10:27:00 Surgery Patient Out of Preop 12/22/18 12:34:00 Patient Out of n/a Holding Room Last Modified By: GIANLUCA HERRON RN 12/22/18 15:35:43 [facility] PreOp Case Times Audit 12/22/18 15:35:43 Athletics Teacher: GIANLUCAMICHELEOFELIA Modifier: EVELYN <+> 1 Patient Out of Preop Finalized By: GIANLUCA HERRON, RN Document Signatures Signed By: GIANLUCA HERRON RN 12/22/18 15:35 Electronically signed by Taryn [facility] Conversion Regular Senior Care Provider Cerner at 11/12/2022 9:44 PM CDT documented in this encounter Plan of Treatment Not on file documented as of this encounter Visit Diagnoses Not on filedocumented in this encounter
--- OUTSIDE RECORDS SUMMARY | 2025-05-19 14:23 | XMS_ITS | Encounter Summary ---
Author Organization [employer] ([place], [place], [place], [place]) Address [address] [place] [address] Care Team Providers Care Enterprise Project Manager Name Role Phone Unavailable Primary Care Provider Unavailabl e Encounter Details Date Type Department Care Team (Late st Contact Info) Description 11/07/2019 Transcribed Document [facility] [place] Medicine [address] [place] [address] ProviderAgnieszka MD [address] [place], [place] [address] Social History Tobacco Use Types Packs/Day Years [...]
--- OUTSIDE RECORDS SUMMARY | 2025-05-19 14:23 | XMS_ITS | Encounter Summary ---
Author Organization [employer] ([place], [place], [place], [place]) Address [address] [place] [address] Care Team Providers Care Thread Spooler Name Role Phone Unavailable Primary Care Provider Unavailabl e Encounter Details Date Type Department Care Team (Late st Contact Info) Description 12/22/2018 Transcribed Document [facility] [place] [facility] [place] [address] ProviderAgnieszka MD [address] [place], [place] [address] Social History Tobacco Use Types Packs/Day Years [...] [facility] Main OR PACU Summary Primary Physician: HEIDE KAT MD-[facility] Finalized Date/Time: 12/22/18 21:02:24 Pt. Name: SIMBA MAYEN JR/Sex: 1950 Male Med Rec #: [id number] Physician: HEIDE KAT MD-SN Financial #: [id number] Pt. Type: I Room/Bed: 63/1 Admit/Disch: 12/22/18 06:36:00 - Institution: [facility] Main OR PACU I Case Times Entry [...]
--- OUTSIDE RECORDS SUMMARY | 2025-05-19 14:23 | XMS_ITS | Encounter Summary ---
Author Organization [employer] ([place], [place], [place], [place]) Address [address] [place] [address] Care Team Providers Care Interpreter Deaf Name Role Phone Unavailable Primary Care Provider Unavailabl e Encounter Details Date Type Department Care Team (Late st Contact Info) Description 11/06/2019 Transcribed Document [facility] Neurology - [address] [place] [address] Heide Akers MD [address] [facility] [address] [place] [id number] Social History Tobacco Use Types Packs/Day Years [...]
--- OUTSIDE RECORDS SUMMARY | 2025-05-19 14:23 | XMS_ITS | Encounter Summary ---
Author Organization [employer] ([place], [place], [place], [place]) Address [address] [place] [address] Care Team Providers Care Spanish Tutor Name Role Phone Unavailable Primary Care Provider Unavailabl e Encounter Details Date Type Department Care Team (Late st Contact Info) Description 11/06/2019 Transcribed Document [facility] [place] [address] [place] [address] ProviderAgnieszka MD [address], [place] [address] Social History Tobacco Use Types Packs/Day Years [...]
--- OUTSIDE RECORDS SUMMARY | 2025-05-19 14:23 | XMS_ITS | Encounter Summary ---
Author Organization [employer] ([place], [place], [place], [place]) Address [address] [place] [address] Care Team Providers Care Site Monitor Name Role Phone Unavailable Primary Care Provider Unavailabl e Encounter Details Date Type Department Care Team (Late st Contact Info) Description 11/07/2019 Transcribed Document [facility] [place] Family Medicine [address] [place] [address] ProviderAgnieszka MD [address], [place] [address] Social History Tobacco Use Types Packs/Day Years [...]
--- OUTSIDE RECORDS SUMMARY | 2025-05-19 14:23 | XMS_ITS | Encounter Summary ---
Author Organization [employer] ([place], [place], [place], [place]) Address [address] [place] [address] Care Team Providers Care Oil Refiner Name Role Phone Unavailable Primary Care Provider Unavailabl e Encounter Details Date Type Department Care Team (Late st Contact Info) Description 12/22/2018 Transcribed Document [facility] [place] Family Medicine [address] [place] [address] ProviderAgnieszka MD [address], [place] [id number] Social History Tobacco Use Types Packs/Day Years [...] Sleep apnea Orders: with brace Nate Woodard [facility] - 12/23/2018 11:06 EDT Visit Type, PT : Initial evaluation Patient Orders : Order Date Order Ordering MD 12/22/2018 17:40 Physical Therapy Eval and Treat Ordered By: HEIDE KAT MD-SNLanie Active Diagnoses : No Qualifying Diagnoses Admission Date : 12/22/2018 06:36 Personal Devices : Personal Devices No Devices Recorded Assistive Devices : Assistive Devices No Devices Recorded [facility] - 12/23/2018 10:57 EDT General Status Patient [...] Treatment Time : 29 Minute(s) [facility] - 12/23/2018 11:06 EDT History and Environment Living Situation, Therapy : Home Patient Lives With : Spouse Persons Assisting Patient at Home : Spouse Persons Providing Information : Patient Home Equipment Therapy, PT : None Home Setup : One story Stairs : No [facility] - 12/23/2018 11:06 EDT Prior Level of Function PT GRID Prior LOF Ambulation, Household : Independent Prior LOF Ambulation, Community : Independent Prior LOF Bed Mobility : Independent Prior LOF Toileting : Independent Prior LOF Transfer : Independent [facility] - 12/23/2018 11:06 EDT Intervention Summary O2 Pre-Intervention : 2L O2 NC SpO2 Pre-Intervention : 100 % O2 During Intervention : Room air SpO2 During Intervention : 97 % O2 Post-Intervention : Room air. Nsg notified SpO2 Post-Intervention : 96 % Nate [facility]ard [facility] - 12/23/2018 11:06 EDT Lower Extremity RLE Active ROM : WFL LLE Active ROM : WFL Nate Woodard, [facility] - 12/23/2018 11:06 EDT Right Lower Extremity MMT Knee Flexion (0-140) : 4/good Knee Extension (0-0) : 4/good Ankle Dorsiflexion (0-20) : 4/good Ankle Plantarflexion (0-45) : 4/good [facility], [facility] - 12/23/2018 11:06 EDT Left Lower Extremity MMT Knee Flexion (0-140) : 4/good Knee Extension (0-0) : 4/good Ankle Dorsiflexion (0-20) : 4/good Ankle Plantarflexion (0-45) : 4/good Nate Woodard, [facility] - 12/23/2018 11:06 EDT Functional Mobility Mobility Grid Bed Roll Right : Rehab Moderate assistance Bed Scooting : Rehab Moderate assistance Supine to Sit : Rehab Moderate assistance Sit to Stand : Rehab Minimal assistance (Comment: x 2 [Nate Woodard, [facility] - 12/23/2018 12:10 EDT] ) Stand to Sit : Rehab Minimal assistance (Comment: x 2 [Nate Woodard, [facility] - 12/23/2018 12:10 EDT] ) Nate Woodard, [facility] - 12/23/2018 11:06 EDT Bed Mobility Scooting Device : Cloth under pad Bed Comment : Patient had difficulty with initation of scooting Nate Woodard, [facility] - 12/23/2018 11:06 EDT Gait Training/Assessment, PT [...] decreased, Shuffling, Stride length, decreased Nate Woodard, [facility] - 12/23/2018 11:06 EDT Cognition Assessment, PT Orientation : Oriented x 4 Follows Basic Command Assessment : Patient needs extended time to process command [facility] - 12/23/2018 11:47 EDT Edu Topics Physical Therapy Education Grid Bed Mobility Training : Needs further teaching, Needs reinforcement Gait Training : Needs further teaching, Needs reinforcement Safety : Needs further teaching, Needs reinforcement Use of Assistive Device : Needs further teaching, Needs reinforcement Nate Woodard [facility] - 12/23/2018 11:47 EDT Indication Assesessment, PT Physical Therapy Indicated : Yes PT Problem List : Impaired, activities daily living, Impaired, bed mobility, Impaired, coordination/proprioception, Impaired, endurance tolerance, Impaired, gait, Impaired, joint mobility, Impaired, sitting balance, Impaired, standing balance, Impaired, transfers Potential Barriers To Therapy : Acuity of Illness Rehabilitation Potential : Good Nate Woodard [facility] - 12/23/2018 11:47 EDT Plan of Care, PT PT Tx Plan/Goals Established w Patient : Yes PT Frequency Rehab : Daily, twice (bid) PT Duration Rehab : Fourteen days PT Treatments Planned : Balance training, Bed mobility training, Caregiver training, Gait training, Pain management, Safety education, Transfer training Nate Woodard [facility] - 12/23/2018 11:47 EDT Short Term Goals Mobility/Bed Mobility STG PT Grid Goal #1 Activity : Supine to sit Assist : Supervision or set-up Date to Meet : 12/30/2018 EDT Goal Status : Initial goal [facility] - 12/23/2018 11:47 EDT Senior Living Goals Mobility/Bed Mobility LTG PT Grid Goal #1 Activity : Sit to stand Cues : Minimum verbal cues Assist : Supervision or set-up Date to Meet : 01/06/2019 EDT Goal Status : Intial Goal [facility] - 12/23/2018 11:47 EDT Ambulation LTG Grid Goal #1 Device : Walker, front wheel Distance : 200' Cues : Minimum verbal cues Assist : Supervision or set-up Date to Meet : 01/06/2019 EDT Goal Status : Intial Goal [facility] - 12/23/2018 11:47 EDT Treatment Note Subjective [...] safety, and decrease caregiver burden. [facility] - 12/23/2018 11:47 EDT Plan for Treatment : Cont. PT. PT has reviewed and agrees with note. JACQUI MCGUIRE, PT - 12/23/2018 12:10 EDT Pain Assessment Pain Scaled Used : 0-10 Pain scale Pain Score Pre-Intervention : 0 Pain Score During-Intervention : 0 Pain Score Post-Intervention. : 0 Nate [facility] - 12/23/2018 11:47 EDT Image 1 - [...] Eval Moderate Complexity : 1 Nate Woodard [facility] - 12/23/2018 11:47 EDT documented in this encounter Plan of Treatment Not on file documented as of this encounter Visit Diagnoses Not on filedocumented in this encounter
--- OUTSIDE RECORDS SUMMARY | 2025-05-19 14:23 | XMS_ITS | Encounter Summary ---
Author Organization [employer] ([place], [place], [place]) Address [address] [place] [address] Care Team Providers Care Stripe Matcher Name Role Phone Unavailable Primary Care Provider Unavailabl e Encounter Details Date Type Department Care Team (Late st Contact Info) Description 11/06/2019 Transcribed Document [facility] Neurology - [address] [place] [address] Heide Kat MD [address] [facility] [address] [place] [address] Social History Tobacco Use Types [...] 36.4 \ Radiology Results (Last 48 hours) [id number] -- 11/02/2019 02:59 CR Fluoro in OR [...] dictated by Dr. Hamzah Shah.Transcribed by Levon iPsano PA-C, Angelo (N), Priscila Camarillo T.I have [...]
--- OUTSIDE RECORDS SUMMARY | 2025-05-19 14:23 | XMS_ITS | Encounter Summary ---
Author Organization [employer] ([place], [place], [place], [place]) Address [address] [place] [address] Care Team Providers Care Envelope Folding Machine Operator Name Role Phone Unavailable Primary Care Provider Unavailabl e Encounter Details Date Type Department Care Team (Late st Contact Info) Description 12/22/2018 Transcribed Document [facility] [place] Family Medicine [facility] [place] [address] ProviderAgnieszka MD [address], [place] [id number] Social History Tobacco Use Types Packs/Day Years [...]
--- OUTSIDE RECORDS SUMMARY | 2025-05-19 14:23 | XMS_ITS | Encounter Summary ---
Author Organization [employer] ([place], [place], [place], [place]) Address [address] [place] [address] Care Team Providers Care Unemployment Inspector Name Role Phone Unavailable Primary Care Provider Unavailabl e Encounter Details Date Type Department Care Team (Late st Contact Info) Description 12/22/2018 Transcribed Document [facility] Neurology - [address] [facility] [address] [place] [address] Mark Akers MD [address] [facility] [address] [place] [address] Social History Tobacco Use Types [...] CT scan with stereotactic navigation using the Wiren Board. SURGEON: Mark Akers MD MARKETING TRAFFIC COORDINATOR: Bing Colon TYPE OF ANESTHESIA: GEA. DESCRIPTION [...] to iliac trajectory. With all instrument the Pairin system was utilized. With all screws in [...] [facility], [address], [place] [address] documented in this encounter Plan of Treatment Not on file documented as of this encounter Visit Diagnoses Not on filedocumented in this encounter
--- OUTSIDE RECORDS SUMMARY | 2025-05-19 14:23 | XMS_ITS | Encounter Summary ---
Author Organization [employer] ([place], [place], [place], [place]) Address [address] [place] [address] Care Team Providers Care Tug Master Name Role Phone Unavailable Primary Care Provider Unavailabl e Encounter Details Date Type Department Care Team (Late st Contact Info) Description 12/22/2018 Transcribed Document [facility] [place] Family Medicine Replaced by [facility] [place] [address] ProviderAgnieszka MD [address], [place] [phone] Social History Tobacco Use Types Packs/Day Years [...]
--- OUTSIDE RECORDS SUMMARY | 2025-05-19 14:23 | XMS_ITS | Encounter Summary ---
Author Organization [employer] ([place], [place], [place], [place]) Address [address] [place] [address] Care Team Providers Care Freight Separator Name Role Phone Unavailable Primary Care Provider Unavailabl e Encounter Details Date Type Department Care Team (Late st Contact Info) Description 11/06/2019 Transcribed Document [facility] Radiology [address] [place] [address] Carlo Evans MD [address] [place], [place] [id number] Social History Tobacco Use Types Packs/Day Years [...] well nourished, no acute distress]. Neurologic: [Equal production manager strength bilaterally, no movement or feeling in [...] Vanc, PICC ordered 11/04 in prep for jail abx -Patient hemodynamically stable, afebrile -NSY following: [...] following. ID following, PICC in place, needs jail abx recs prior to discharge. Awaiting PT/OT [...] Lymph # 1.33 x10(3)/uL 11/06/2019 05:53 EDT [place] % 13.8 % (High) 11/06/2019 05:53 EDT [place] # 0.99 K/uL 11/06/2019 05:53 EDT Eos [...]
--- OUTSIDE RECORDS SUMMARY | 2025-05-19 14:23 | XMS_ITS | Encounter Summary ---
Author Organization [employer] ([place], [place], [place], [place]) Address [address] [place] [address] Care Team Providers Care Risk Prevention Engineer Name Role Phone Unavailable Primary Care Provider Unavailabl e Encounter Details Date Type Department Care Team (Late st Contact Info) Description 11/06/2019 Transcribed Document [facility] [address] [place] [address] ProviderAgnieszka MD [address], [place] [phone] Social History Tobacco Use Types Packs/Day Years Used Date Smoking Tobacco: Never Assessed Sex and Gender Information Value Date Recorded Sex Assigned at Not on file Legal Sex Male 2:38 PM CDT Gender Identity Not on file Sexual Orientation Not on file documented as of this encounter Miscellaneous Notes * Cerner Conversion Note - Historical ProviderMD - 11/06/2019 1:02 PM CDT [facility] Main OR PACU Summary Primary Physician: HEIDE KAT MD-U Finalized Date/Time: 11/06/19 15:35:13 Pt. Name: SIMBA MAYEN JR/Sex: 1950 Male Med Rec #: [id number] Physician: LORENA SAGASTUME MD-INT Financial #: [id number] Pt. Type: I Room/Bed: [facility]/ Admit/Disch: 11/02/19 02:59:00 - Institution: [facility] Main OR PACU I Case Times Entry 1 In PACU I 11/06/19 14:45:00 Ready for PACU 11/06/19 15:20:00 Discharge Discharge from PACU 11/06/19 15:20:00 I Last Modified By: MOE PAIGE RN 11/06/19 15:34:56 [facility] Main OR PACU I Case Times Audit 11/06/19 15:34:56 Combo Welder: KURTIS Modifier: KURTIS <+> 1 Ready for PACU Discharge <+> 1 Discharge from PACU I [facility] Main OR PACU Acuity Entry 1 Start Time 11/06/19 14:45:00 Stop Time 11/06/19 15:20:00 Acuity Level [facility] PACU Acuity I Last Modified By: MOE PAIGE RN 11/06/19 15:35:11 [facility] Main OR PACU Acuity Audit 11/06/19 15:35:11 Combo Welder: KURTIS Modifier: KURTIS <+> 1 Stop Time Finalized By: MOE PAIGE, RN Document Signatures Signed By: MOE PAIGE RN 11/06/19 15:35 Electronically signed by [facility] Conversion Header Operator Cerner at 11/12/2022 9:29 PM CDT documented in this encounter Plan of Treatment Not on file documented as of this encounter Visit Diagnoses Not on filedocumented in this encounter
--- OUTSIDE RECORDS SUMMARY | 2025-05-19 14:23 | XMS_ITS | Encounter Summary ---
Author Organization [employer] ([place], [place], [place], [place]) Address [address] [place] [address] Care Team Providers Care Impact Hammer Operator Name Role Phone Unavailable Primary Care Provider Unavailabl e Encounter Details Date Type Department Care Team (Late st Contact Info) Description 12/22/2018 Transcribed Document [facility] Family Medicine [address] [place] [address] ProviderAgnieszka MD [address], [place] [id number] Social History Tobacco Use Types Packs/Day Years Used Date Smoking Tobacco: Never Assessed Sex and Gender Information Value Date Recorded Sex Assigned at Not on file Legal Sex Male 2:38 PM CDT Gender Identity Not on file Sexual Orientation Not on file documented as of this encounter Miscellaneous Notes * Cerner Conversion Note - Historical ProviderMD - 12/22/2018 1:14 PM CDT [facility] Main OR IntraOp Summary Primary Physician: HEIDE KAT MD-SNU Finalized Date/Time: 12/23/18 10:58:23 Pt. Name: EILEEN MAYEN JR/Sex: 1950 Male Med Rec #: [id number] Physician: HEIDE KAT MD-SNU Financial #: [id number] Pt. Type: I Room/Bed: [facility]/ Admit/Disch: 12/22/18 06:36:00 - Institution: [facility] IntraOp Case Attendance Entry 1 Entry 2 Entry 3 Case Attendee HEIDE KAT Burdine, Teresa A, Rn LONG, PAULA R. MD-SNU Role Performed Surgeon/Proceduralist, Counter Person, First Scrub, Second First Time In 12/22/18 [...] ANGELICA LANDAVERDE MD Role Performed Scrub, Second TIME ANALYSIS CLERK/Nurse Psychology Physician Anesthesiologist of Record Time In 12/22/18 12:37:00 [...] Jang, Lopez OTHER, ATTENDEE #1 Role Performed Counter Person, Second TIME ANALYSIS CLERK/Nurse Psychology Physician Vendor Time In 12/22/18 12:37:00 12/22/18 12:37:00 [...] 11 Entry 12 Case Attendee Nadia Valdivia, Road Machinery Inspector Clifton Schroeder, Road Machinery Inspector Delmi Andino [employer] Pref Card Builder Role Performed TIME ANALYSIS CLERK/Nurse Psychology Physician TIME ANALYSIS CLERK/Nurse Psychology Physician Scrub, First Time In 12/22/18 12:37:00 12/22/18 [...] A, ARCHIE Lincoln Role Performed Scrub, First Counter Person, First Scrub, First Time In 12/22/18 12:50:00 [...] VILLALPANDO PA-C Role Performed Scrub, First Physician market research assistant Time In 12/22/18 17:22:00 12/22/18 12:37:00 Time Out 12/22/18 18:08:00 12/22/18 18:08:00 Procedure Lumbar Fusion Posterior Lumbar Fusion Posterior 3 Level 3 Level Other Attendee Superficial Wound Closed By: Last Modified By: Monica Bustillos Rn Burdine, Teresa A, Rn 12/22/18 18:08:27 12/22/18 18:08:27 [facility] IntraOp Case Attendance Audit 12/22/18 18:08:44 Clinical Staff Rn: [id number] Modifier: [id number] <+> Role Performed 15 <*> Procedure Lumbar Fusion Posterior 3 Level 12/22/18 18:08:27 Clinical Staff Rn: [id number] Modifier: [id number] <+> Time Out 1 <*> Procedure [...] Lumbar Fusion Posterior 3 Level 12/22/18 17:32:50 Clinical Staff Rn: [id number] Modifier: [id number] 1 <*> Procedure Lumbar Fusion Posterior 3 [...] Lumbar Fusion Posterior 3 Level 12/22/18 17:31:57 Clinical Staff Rn: [id number] Modifier: [id number] <+> 17 Case Attendee <+> 17 Role Performed <+> 17 Procedure 12/22/18 17:22:20 Clinical Staff Rn: [id number] Modifier: [id number] <+> Time Out 15 <*> Procedure Lumbar Fusion Posterior 3 Level <+> 16 Case Attendee <+> 16 Role Performed <+> 16 Time In <+> 16 Procedure 12/22/18 17:20:00 Clinical Staff Rn: [id number] Modifier: [id number] <+> 15 Case Attendee <+> 15 Time In <+> 15 Procedure 12/22/18 17:19:17 Clinical Staff Rn: [id number] Modifier: [id number] <+> Time Out 3 <*> Procedure Lumbar Fusion Posterior 3 Level 12 <+> Time Out 12 <*> Procedure Lumbar Fusion Posterior 3 Level 12/22/18 16:40:42 Clinical Staff Rn: [id number] Modifier: [id number] <+> Time Out 2 <*> Procedure Lumbar Fusion Posterior 3 Level <+> 14 Case Attendee <+> 14 Role Performed <+> 14 Time In <+> 14 Procedure 12/22/18 15:28:44 Clinical Staff Rn: [id number] Modifier: [id number] <*> Procedure Lumbar Fusion Posterior 3 Level <+> 12 Case Attendee <+> 12 Role Performed <+> 12 Time In <+> 12 Procedure <+> 13 Case Attendee <+> 13 Role Performed <+> 13 Time In <+> 13 Time Out <+> 13 Procedure 12/22/18 15:09:00 Clinical Staff Rn: [id number] Modifier: [id number] <+> Time Out 11 <*> Procedure Lumbar Fusion Posterior 3 Level 12/22/18 15:08:31 Clinical Staff Rn: [id number] Modifier: [id number] <+> 10 Case Attendee <+> 10 Role Performed <+> 10 Time In <+> 10 Time Out <+> 10 Procedure <+> 11 Case Attendee <+> 11 Role Performed <+> 11 Time In <+> 11 Procedure <+> 11 Other Attendee 12/22/18 13:27:26 Clinical Staff Rn: [id number] Modifier: [id number] <+> 1 Procedure 2 <*> Procedure Lumbar [...] Lumbar Fusion Posterior 3 Level 12/22/18 13:25:52 Clinical Staff Rn: [id number] Modifier: [id number] <+> 1 Time In 2 <+> Time [...] <*> Procedure Lumbar Fusion Posterior 3 Level [facility] IntraOp Case Times Entry 1 Patient In Room Time 12/22/18 12:37:00 Out Room Time 12/22/18 18:08:00 Anesthesia Start Time 12/22/18 12:37:00 Stop Time 12/22/18 18:08:00 Surgery / Procedure Times Start Time 12/22/18 13:14:00 Stop Time 12/22/18 17:20:00 Last Modified By: Monica Bustillos Rn 12/22/18 18:08:26 [facility] IntraOp Case Times Audit 12/22/18 18:08:26 Clinical Staff Rn: [id number] Modifier: [id number] <+> 1 Out Room Time <+> 1 Stop Time <+> 1 Stop Time 12/22/18 13:14:12 Clinical Staff Rn: [id number] Modifier: [id number] <+> 1 Start Time [facility] IntraOp Cautery Entry 1 Entry 2 ESU Identification Cautery Type Monopolar ESU BiPolar ESU Cautery Type Comments ID Number [id number] ID Type Hospital Number Hospital Number Cautery [...] Teresa A, Rn 12/22/18 12:35:57 12/22/18 12:35:57 [facility] IntraOp Communication Entry 1 Entry [...] 12/22/18 17:55:57 General Comments: NO FAMILY PRESENT [facility] IntraOp Communication Audit 12/22/18 17:55:57 Clinical Staff Rn: [id number] Modifier: [id number] 1 <*> Communication By Monica Bustillos, Adelia [...] <*> Comment 5 <*> Comment 12/22/18 15:53:33 Clinical Staff Rn: [id number] Modifier: [id number] <*> Communication By Monica Bustillos Rn 3 <*> Communication By Monica Bustillos Rn 3 <*> Date and Time 3 <*> Date and Time 3 <*> Communication To 3 <*> Communication To 3 <*> Comment 3 <*> Comment 12/22/18 14:56:30 Clinical Staff Rn: [id number] Modifier: [id number] 2 <*> Communication By Monica Bustillos, Rn [...] [facility] IntraOp Counts Final Audit 12/22/18 17:20:13 Clinical Staff Rn: [id number] Modifier: [id number] 1 <*> Procedure Lumbar Fusion Posterior 3 Level 1 <*> Count Performed By (Scrub) KENNY IGNACIO 12/22/18 17:17:55 Clinical Staff Rn: [id number] Modifier: [id number] 1 <*> Procedure Lumbar Fusion Posterior 3 Level 1 <*> Count Performed By (RN) Monica Bustillos Rn [facility] IntraOp Departure from OR Entry [...] Modified By: Monica Bustillos Rn 12/22/18 17:32:15 [facility] IntraOp Dressing and Packing Audit 12/22/18 17:32:15 Clinical Staff Rn: [id number] Modifier: [id number] <+> 1 Applied By [facility] IntraOp Fire Risk Assessment Entry [...] Modified By: Monica Bustillos Rn 12/22/18 13:18:45 [facility] IntraOp General Case [place] Tanner 1 Case Information OR OR 10 [facility] Case Level 1 Room Verified Yes Wound Class I - Clean Specialty SN Neurosurgery ASA Class 4 Diagnosis Preop Diagnosis LUMBAR REDICULOPATHY Postop Same As Preop No Postop Diagnosis SEE MD POST OP NOTE Last Modified By: Monica Bustillos Rn 12/22/18 13:20:56 [facility] IntraOp General Case Data Audit 12/22/18 13:20:56 Clinical Staff Rn: [id number] Modifier: [id number] <+> 1 Postop Same As Preop <+> 1 Preop Diagnosis <+> 1 Postop Diagnosis [facility] IntraOp Implant Log Entry 1 Entry 2 Entry 3 Type Tissue Implant Tissue Implant Implant (Synthetic) (Biologic) (Biologic) Implant Log Implant Type Hardware Tissue Implant Type Bone Bone Implant BONE VIVIGEN FRMBLE BONE FT DBX [id number] Identification [id number] [id number] Description Implant Quantity 1 1 2 Implant Site OP SITE OP SITE OPSITE Implant [id number] Identification Model Number Implant [id number] Identification Serial Number Implant Identification Lot Number Implant Lifenet:Lifenet Musculoskeletal SYNTHES SPINE Identification Transplant Srv Transplant Fnd Tear Down Matcher Name: Implant [id number] Identification Catalog Number Implant Size PREBENT SCOLI RAE Implant Has an Yes Yes No Expiration Date Implant Expiration 11/27/19 06/12/20 Date Wasted Radioactive Material Time Implanted Tissue Implant Continue for Tissue Implant Documentation Tissue Identification Number Graft Prep Per Tear Down Matcher Instructions: Tissue Preparation Method: Reconstitution Solution: Reconstitution Solution Lot Number Reconstitution Solution Expiration Date: Thawing Solution Thawing Solution Lot Number Thawing Solution Expiration Date Preparation Materials, Other Preparation Materials, Other Lot Number Preparation Materials, Other Expiration Date Tissue Prepared/Processed By Tear Down Matcher Paperwork Completed Implant Type Comment Last Modified [...] FIX FEN SCR SPNE ALIN FIX Identification [id number] Description Implant Quantity 6 8 4 Implant Site OPSITE OPSITE OPSITE Implant Identification Model Number Implant Identification Serial Number Implant Identification Lot Number Implant J&J:Depuy:Depuy Spine J&J:Depuy:Depuy Spine J&J:Depuy:Depuy Spine Identification Tear Down Matcher Name: Implant [id number] 1867-27-655 Identification Catalog Number Implant Size Implant Has an No No No Expiration Date Implant Expiration Date Wasted Radioactive Material Time Implanted Tissue Implant Continue for Tissue Implant Documentation Tissue Identification Number Graft Prep Per Tear Down Matcher Instructions: Tissue Preparation Method: Reconstitution Solution: Reconstitution Solution Lot Number Reconstitution Solution Expiration Date: Thawing Solution Thawing Solution Lot Number Thawing Solution Expiration Date Preparation Materials, Other Preparation Materials, Other Lot Number Preparation Materials, Other Expiration Date Tissue Prepared/Processed By Tear Down Matcher Paperwork Completed Implant Type Comment Last Modified By: Monica Bustillos Rn Burdine, Teresa A, Rn Burdine, Teresa A, Rn 12/22/18 15:37:38 12/22/18 17:42:10 12/22/18 17:42:10 Entry 7 Entry 8 Entry 9 Type Implant (Synthetic) Implant (Synthetic) Implant (Synthetic) Implant Log Implant Type Hardware Hardware Hardware Tissue Implant Type Implant SCR ILIAM 9MM X 100MM MIS SUNNI PLY SCRW SET CAGE BULLET CONCORDE Identification [id number] Description Implant Quantity 2 20 1 Implant Site OPSITE OPSITE OPSITE Implant Identification Model Number Implant Identification Serial Number Implant Identification Lot Number Implant J&J:Depuy:Depuy Spine J&J:Depuy:Depuy Spine J&J:Depuy:Depuy Spine Identification Tear Down Matcher Name: Implant [id number] 1867-15-000 [id number] Identification Catalog Number Implant Size Implant Has an No No No Expiration Date Implant Expiration Date Wasted Radioactive Material Time Implanted Tissue Implant Continue for Tissue Implant Documentation Tissue Identification Number Graft Prep Per Tear Down Matcher Instructions: Tissue Preparation Method: Reconstitution Solution: Reconstitution Solution Lot Number Reconstitution Solution Expiration Date: Thawing Solution Thawing Solution Lot Number Thawing Solution Expiration Date Preparation Materials, Other Preparation Materials, Other Lot Number Preparation Materials, Other Expiration Date Tissue Prepared/Processed By Tear Down Matcher Paperwork Completed Implant Type Comment Last Modified By: Monica Bustillos Rn Burdine, Teresa A, Rn Burdine, Teresa A, Rn 12/22/18 17:42:10 12/22/18 17:42:10 12/22/18 17:42:10 Entry 10 Entry 11 Type Implant (Synthetic) Implant (Synthetic) Implant Log Implant Type Hardware Hardware Tissue Implant Type Implant CAGE BULLET CONCORDE CONCORDE BUL ANGELIKA Identification [id number] Description Implant Quantity 1 1 Implant Site OPSITE OPSITE Implant Identification Model Number Implant Identification Serial Number Implant Identification Lot Number Implant J&J:Depuy:Depuy Spine J&J:Depuy:Depuy Spine Identification Tear Down Matcher Name: Implant [id number] Identification Catalog Number Implant Size Implant Has an No No Expiration Date Implant Expiration Date Wasted Radioactive Material Time Implanted Tissue Implant Continue for Tissue Implant Documentation Tissue Identification Number Graft Prep Per Tear Down Matcher Instructions: Tissue Preparation Method: Reconstitution Solution: Reconstitution Solution Lot Number Reconstitution Solution Expiration Date: Thawing Solution Thawing Solution Lot Number Thawing Solution Expiration Date Preparation Materials, Other Preparation Materials, Other Lot Number Preparation Materials, Other Expiration Date Tissue Prepared/Processed By Tear Down Matcher Paperwork Completed Implant Type Comment Last Modified By: Monica Bustillos Rn Burdine, Teresa A, Rn 12/22/18 17:42:10 12/22/18 17:42:10 [facility] IntraOp Implant Log Audit 12/22/18 17:42:10 Clinical Staff Rn: [id number] Modifier: [id number] <+> 3 Implant Identification Description <+> 3 Implant Identification Tear Down Matcher Name: <+> 3 Implant Size <+> 3 Implant Site <+> 3 Implant Quantity <+> 3 Implant Type <+> 3 Implant Has an Expiration Date <+> 3 Type <+> 4 Implant Identification Description <+> 4 Implant Identification Tear Down Matcher Name: <+> 4 Implant Site <+> 4 Implant Quantity <+> 4 Implant Identification Catalog Number <+> 4 Implant Type <+> 4 Implant Has an Expiration Date <+> 4 Type <+> 5 Implant Identification Description <+> 5 Implant Identification Tear Down Matcher Name: <+> 5 Implant Site <+> 5 Implant Quantity <+> 5 Implant Identification Catalog Number <+> 5 Implant Type <+> 5 Implant Has an Expiration Date <+> 5 Type <+> 6 Implant Identification Description <+> 6 Implant Identification Tear Down Matcher Name: <+> 6 Implant Site <+> 6 Implant Quantity <+> 6 Implant Identification Catalog Number <+> 6 Implant Type <+> 6 Implant Has an Expiration Date <+> 6 Type <+> 7 Implant Identification Description <+> 7 Implant Identification Tear Down Matcher Name: <+> 7 Implant Site <+> 7 Implant Quantity <+> 7 Implant Identification Catalog Number <+> 7 Implant Type <+> 7 Implant Has an Expiration Date <+> 7 Type <+> 8 Implant Identification Description <+> 8 Implant Identification Tear Down Matcher Name: <+> 8 Implant Site <+> 8 Implant Quantity <+> 8 Implant Identification Catalog Number <+> 8 Implant Type <+> 8 Implant Has an Expiration Date <+> 8 Type <+> 9 Implant Identification Description <+> 9 Implant Identification Tear Down Matcher Name: <+> 9 Implant Site <+> 9 Implant Quantity <+> 9 Implant Identification Catalog Number <+> 9 Implant Type <+> 9 Implant Has an Expiration Date <+> 9 Type <+> 10 Implant Identification Description <+> 10 Implant Identification Tear Down Matcher Name: <+> 10 Implant Site <+> 10 Implant Quantity <+> 10 Implant Identification Catalog Number <+> 10 Implant Type <+> 10 Implant Has an Expiration Date <+> 10 Type <+> 11 Implant Identification Description <+> 11 Implant Identification Tear Down Matcher Name: <+> 11 Implant Site <+> 11 Implant Quantity <+> 11 Implant Identification Catalog Number <+> 11 Implant Type <+> 11 Implant Has an Expiration Date <+> 11 Type [facility] IntraOp Intraoperative Assessment Entry 1 [...] Modified By: Monica Bustillos Rn 12/22/18 13:21:44 [facility] IntraOp Intraoperative Equipment Entry 1 Type Equipment Equipment Equipment Ganesh Suction System Setting 200MMHG Intraop Monitoring Electrocardiogram Three lead placement (ECG) Electrode Placement Blood Pressure Non-Invasive BP Device Source Blood Pressure Arm, right upper Location Pulse Oximeter Hand, left Probe Site Antiembolic Devices Antiembolic Devices Sequential compression device, knee high Antiembolic Device Bilateral Location Antiembolic Device [id number] ID Number Scopes Photo/Video Documentation Photo No Video No Last Modified By: Monica Bustillos Rn 12/22/18 13:22:24 [facility] IntraOp Medication Admin Entry 1 Entry 2 Entry 3 Medication/Irrigant Bacitracin 50,00units lidocaine 1% w/ Marcaine 0.25% 30ml powder vial epinephrine 1:100,000 vial - [id number] 30ml vial - [id number] Combo Med List Time Administered Route of MIXED WITH NS IRRIGATION LOCAL LOCAL Administration Dose Dose 98074 10 10 Unit of Measure units ml [...] ointment SEALR AQUAMANTYS BIPLR SPNG SURGFOAM - [id number] Combo Med List Time Administered Route of [...] Entry 8 Medication/Irrigant thrombin 5000units vancomycin -- [id number] topical powder - [id number] Combo Med List Time Administered Route of TOPICAL POWDER IN WOUND Administration Dose Dose 5000 1 Unit of Measure units gram Volume Administered By HEIDE KAT TUTT, MATTHEW PAIGE, MD-SNU MD-SNU Procedure Irrigation Irrigant Volume In Irrigant Volume Out Last Modified By: Monica Bustillos Rn Burdine, Teresa A, Rn 12/22/18 13:24:19 12/22/18 16:41:25 [facility] IntraOp Medication Admin Audit 12/22/18 16:41:25 Clinical Staff Rn: [id number] Modifier: [id number] <+> 8 Medication/Irrigant <+> 8 Route of [...] Modified By: Monica Bustillos Rn 12/22/18 13:25:49 [facility] IntraOp Sign Out Entry 1 [...] Modified By: Monica Bustillos Rn 12/22/18 18:09:18 [facility] IntraOp Sign Out Audit 12/22/18 18:09:18 Clinical Staff Rn: [id number] Modifier: [id number] 1 <*> RN Sign Out Signature Monica Bustillos Rn 1 <+> RN Sign Out Signature Date/Time [facility] IntraOp Skin Prep Entry 1 [...] Teresa A, Rn 12/22/18 13:27:01 12/22/18 13:27:01 [facility] IntraOp Surgical Procedures Entry 1 Procedure Lumbar Fusion Posterior 3 Level Additional (G35-TEMSH PLIF) Procedure Description Primary Procedure Yes Primary Surgeon HEIDE KAT MD-SNU Start 12/22/18 13:14:00 Stop 12/22/18 17:20:00 Anesthesia Type General Specialty SN Neurosurgery Wound Class I - Clean Last Modified By: Monica Bustillos Rn 12/22/18 18:09:20 General Comments: ANCEF 2GM IV PER ANESTHESIA [facility] IntraOp Surgical Procedures Audit 12/22/18 18:09:20 Clinical Staff Rn: [id number] Modifier: [id number] <*> Stop 1 <*> Stop [facility] IntraOp Temp Regulation Devices Entry 1 Temp Regulation Temperature Forced Air Warming Regulation Device device Temperature Upper body Regulation Site Last Modified By: Monica Bustillos Rn 12/22/18 12:37:27 [facility] IntraOP Time Out Entry 1 Electronically signed by Taryn [facility] Conversion Dealer Support Technician Cerner at 11/12/2022 9:34 PM CDT documented in this encounter Plan of Treatment Not on file documented as of this encounter Visit Diagnoses Not on filedocumented in this encounter
--- OUTSIDE RECORDS SUMMARY | 2025-05-19 14:23 | XMS_ITS | Encounter Summary ---
Author Organization [employer] ([place], [place], [place], [place]) Address [address] [place] [address] Care Team Providers Care Legal Counsel Name Role Phone Unavailable Primary Care Provider Unavailabl e Encounter Details Date Type Department Care Team (Late st Contact Info) Description 11/06/2019 Transcribed Document [facility] [place] Family Medicine [address] [place] [address] ProviderAgnieszka MD [address], [place] [id number] Social History Tobacco Use Types Packs/Day Years Used Date Smoking Tobacco: Never Assessed Sex and Gender Information Value Date Recorded Sex Assigned at Not on file Legal Sex Male 2:38 PM CDT Gender Identity Not on file Sexual Orientation Not on file documented as of this encounter Miscellaneous Notes * Cerner Conversion Note - Agnieszka ProviderMD - 11/06/2019 1:02 PM CDT [facility] Main OR IntraOp Summary Primary Physician: HEIDE KAT MD-SNU Finalized Date/Time: 11/07/19 12:14:47 Pt. Name: EILEEN MAYEN JR/Sex: 1950 Male Med Rec #: [id number] Physician: LORENA SAGASTUME MD-INT Financial #: [id number] Pt. Type: I Room/Bed: [facility] Admit/Disch: 11/02/19 02:59:00 - Institution: [facility] IntraOp Case Attendance Entry 1 Entry [...] Case Attendee ANNABELLE ELDER, RN ZEINAB CABRERA, RETAIL COMMISSION SALES ASSOCIATE Role Performed Music Librarian, First Scrub, First Time In 11/06/19 12:39:00 11/06/19 12:39:00 Time Out 11/06/19 14:40:00 11/06/19 14:40:00 Procedure Thoracic Laminectomy Thoracic Laminectomy Other Attendee Superficial Wound Closed By: Last Modified By: ANNABELLE ELDER RN SMITH, MYRIAH L., RN 11/06/19 14:39:34 11/06/19 14:39:34 [facility] IntraOp Case Attendance Audit 11/06/19 14:39:34 Ticket Scheduler: ISIAH Modifier: SMITHML 1 <+> Time Out 1 <*> Procedure Thoracic Laminectomy 2 <*> Procedure Thoracic Laminectomy 3 <+> Time Out 3 <*> Procedure Thoracic Laminectomy 4 <+> Time Out 4 <*> Procedure Thoracic Laminectomy 5 <+> Time Out 5 <*> Procedure Thoracic Laminectomy 11/06/19 14:28:47 Ticket Scheduler: ISIAH Modifier: SMITHML <+> 1 Procedure <+> 2 Procedure <+> 3 Procedure <+> 4 Procedure <+> 5 Procedure 11/06/19 14:28:11 Ticket Scheduler: ISIAH Modifier: SMITHML 2 <+> Time In 2 <-> Procedure Lumbar Fusion Posterior 3 <-> Procedure Lumbar Fusion Posterior 4 <+> Time In 4 <-> Procedure Lumbar Fusion Posterior 5 <+> Time In 5 <-> Procedure Lumbar Fusion Posterior [facility] IntraOp Case Times Entry 1 Patient In Room Time 11/06/19 12:39:00 Out Room Time 11/06/19 14:40:00 Anesthesia Start Time 11/06/19 12:39:00 Stop Time 11/06/19 14:40:00 Surgery / Procedure Times Start Time 11/06/19 13:02:00 Stop Time 11/06/19 14:15:00 Last Modified By: ANNABELLE ELDER RN 11/06/19 14:39:04 [facility] IntraOp Case Times Audit 11/06/19 14:39:04 Ticket Scheduler: SMITHML Modifier: SMITHML <+> 1 Out Room Time <+> 1 Stop Time 11/06/19 14:27:07 Ticket Scheduler: SMITHML Modifier: SMITHML <+> 1 Stop Time 11/06/19 13:02:31 Ticket Scheduler: SMITHML Modifier: SMITHML <+> 1 Start Time [facility] IntraOp Cautery Entry 1 Entry 2 ESU Identification Cautery Type Monopolar ESU BiPolar ESU Cautery Type Comments ID Number [id number] ID Type Hospital Number Hospital Number Cautery [...] MYRIAH L., RN 11/06/19 13:08:54 11/06/19 13:08:54 [facility] IntraOp Communication Entry 1 Communication To Family/Significant other Comment spoke to family preoperatively Communication By ANNABELLE ELDER RN Date and Time 11/06/19 13:04:00 Last Modified By: ANNABELLE ELDER RN 11/06/19 13:04:26 [facility] IntraOp Counts Verification Entry 1 Procedure Thoracic Laminectomy Count Info Count Type Sponge, Sharps, Miscellaneous Counts Verification Baseline/pre-procedure Sequence Count Results Not Applicable Counts Performed By Count Performed By ZEINAB CABRERA, RETAIL COMMISSION SALES ASSOCIATE (Scrub) Count Performed By ANNABELLE ELDER RN (RN) Last Modified By: ANNABELLE ELDER RN 11/06/19 14:28:48 [facility] IntraOp Counts Verification Audit 11/06/19 14:28:48 Ticket Scheduler: ISIAH Modifier: SMITHML <+> 1 Procedure 11/06/19 14:28:12 Ticket Scheduler: SMITHML Modifier: SMITHML 1 <-> Procedure Lumbar Fusion Posterior [facility] IntraOp Counts Final Entry 1 Procedure Thoracic Laminectomy Final Count Info Count Type Sponge, Sharps, Miscellaneous Counts Verification Skin Closure/end of Sequence procedure Count Results Correct, surgeon notified Counts Performed By Count Performed By ZEINAB CABRERA RETAIL COMMISSION SALES ASSOCIATE (Scrub) Count Performed By ANNABELLE ELDER RN (RN) Last Modified By: ANNABELLE ELDER RN 11/06/19 14:28:49 [facility] IntraOp Counts Final Audit 11/06/19 14:28:49 Ticket Scheduler: SMITHML Modifier: SMITHML <+> 1 Procedure 11/06/19 14:28:13 Ticket Scheduler: ISIAH Modifier: SMITHML 1 <-> Procedure Lumbar Fusion Posterior [facility] IntraOp Cultures and Spec Summary Entry 1 Cultrures and Specimens Specimen Ordered: Yes Test(s) Culture(s)/Microbiology Requested/Final Disposition Last Modified By: ANNABELLE ELDER RN 11/06/19 13:12:47 General Comments: surgical swabs tissue for culture [facility] IntraOp Departure from OR Entry 1 Integumentary Assessment Integumentary WDL with patient Assessment WDL specific variances Patient's Normal incision Integumentary Variance(s) Transfer/Handoff Transfer to PACU Phase I Handoff Method Bedside/Face to face, Phone call Post-op Transport Stretcher/Gurney Via Patient Transport URIEL MATOS MD-ANS, Accompanied by ANNABELLE ELDER RN Last Modified By: ANNABELLE ELDER RN 11/06/19 13:12:37 [facility] IntraOp Dressing and Packing Entry 1 Type Dressing Location back Wound Dressing Item Occlusive dressing Applied By HEIDE KAT MD-SNU Other Comments neosporin Last Modified By: ANNABELLE ELDER RN 11/06/19 13:12:13 [facility] IntraOp Fire Risk Assessment Entry 1 [...] Modified By: ANNABELLE ELDER RN 11/06/19 13:05:27 [facility] IntraOp General Case Ex Assistant/Program Director 1 Case Information OR OR [facility] Case Level 1 Room Verified Yes Wound Class I - Clean Specialty SN Neurosurgery Anesthesia Type General ASA Class 3E Diagnosis Preop Diagnosis thoracic epidural hematoma Postop Same As Preop No Postop Diagnosis see drs post op notes Last Modified By: ANNABELLE ELDER RN 11/06/19 13:05:13 [facility] IntraOp Intraoperative Assessment Entry 1 Handoff [...] Modified By: ANNABELLE ELDER RN 11/06/19 13:07:57 [facility] IntraOp Intraoperative Equipment Entry 1 Type Equipment Equipment Equipment Lithotripsy Machine ID Number [id number] Intraop Monitoring Antiembolic Devices Antiembolic Devices Sequential compression device, knee high Antiembolic Device Bilateral Location Antiembolic Device [id number] ID Number Scopes Photo/Video Documentation Last Modified By: ANNABELLE ELDER RN 11/06/19 13:08:16 [facility] IntraOp Medication Admin Entry 1 Entry 2 Entry 3 Medication/Irrigant Bacitracin 50,00units lidocaine 1% w/ Marcaine 0.25% 30ml powder vial epinephrine 1:100,000 vial - [id number] 30ml vial - [id number] Combo Med List Time Administered Route of irrigation local local Administration Dose Dose 51230 10 20 Unit of Measure units ml [...] SPNG SURGFOAM Neosporin 15Gm ointment thrombin 5000units [id number] - [id number] topical powder - [id number] Combo Med List 1 - Combo Med [...] Entry 7 Medication/Irrigant vancomycin 1Gm vial - [id number] Combo Med List Time Administered Route of topical Administration Dose Dose 1 Unit of Measure gram Volume Administered By HEIDE KAT MD-SNLanie Procedure Irrigation Irrigant Volume In Irrigant Volume Out Last Modified By: ANNABELLE ELDER RN 11/06/19 13:11:50 [facility] IntraOp Patient Positioning Entry 1 Procedure [...] Modified By: ANNABELLE ELDER RN 11/06/19 14:28:48 [facility] IntraOp Patient Positioning Audit 11/06/19 14:28:48 Ticket Scheduler: ISIAH Modifier: ISIAH <+> 1 Procedure 11/06/19 14:28:12 Ticket Scheduler: ISIAH Modifier: ISIAH 1 <-> Procedure Lumbar Fusion Posterior [facility] IntraOp Sign In Entry 1 Patient, [...] Modified By: ANNABELLE ELDER RN 11/06/19 13:04:05 [facility] IntraOp Sign Out Entry 1 RN [...] Modified By: ANNABELLE ELDER RN 11/06/19 14:39:33 [facility] IntraOp Skin Prep Entry 1 Procedure Thoracic Laminectomy Prescribed N/A Pre-Surgical Prep Completed Prep Area back Intraop Prep Integumentary WDL with patient Assessment WDL specific variances WDL Patient gilson and drain in Exceptions place Prep Agents Alcohol, Chloraprep, Chlorhexadine gluconate Prep by HEIDE KAT MD-SNU Hair Removal Methods No hair removal performed Last Modified By: ANNABELLE ELDER RN 11/06/19 14:28:49 [facility] IntraOp Skin Prep Audit 11/06/19 14:28:49 Ticket Scheduler: ISIAH Modifier: SMITHML <+> 1 Procedure 11/06/19 14:28:12 Ticket Scheduler: ISIAH Modifier: SMITHML 1 <-> Procedure Lumbar Fusion Posterior [facility] IntraOp Surgical Procedures Entry 1 Procedure Thoracic Laminectomy Additional thoracic laminectomy, Procedure I&D Description Primary Procedure Yes Primary Surgeon HEIDE KAT MD-SNU Start 11/06/19 13:02:00 Stop 11/06/19 14:15:00 Anesthesia Type General Specialty SN Neurosurgery Wound Class I - Clean Last Modified By: ANNABELLE ELDER RN 11/06/19 14:28:41 [facility] IntraOp Temp Regulation Devices Entry 1 Temp Regulation Temperature Forced Air Warming Regulation Device device, Room temperature, Warm blankets Temperature Upper body, Lower body Regulation Site Temperature URIEL MATOS MD-ANS Regulation Device Applied by Last Modified By: ANNABELLE ELDER RN 11/06/19 13:20:01 [facility] IntraOP Time Out Entry 1 Procedure [...] Modified By: ANNABELLE ELDER RN 11/06/19 14:28:49 [facility] IntraOP Time Out Audit 11/06/19 14:28:49 Ticket Scheduler: ISIAH Modifier: SMITHML <+> 1 Procedure to be Performed 11/06/19 14:28:13 Ticket Scheduler: ISIAH Modifier: SMITHML 1 <-> Procedure to [...]
--- OUTSIDE RECORDS SUMMARY | 2025-05-19 14:23 | XMS_ITS | Encounter Summary ---
Author Organization [employer] ([place], [place], [place], [place]) Address [address] [place] [address] Care Team Providers Care Lathe Mechanic Name Role Phone Unavailable Primary Care Provider Unavailabl e Encounter Details Date Type Department Care Team (Late st Contact Info) Description 11/07/2019 Transcribed Document [facility] [place] [address] [place] [address] ProviderAgnieszka MD [address], [place] [address] Social History Tobacco Use Types Packs/Day Years [...] : Integrated, provides strength/resource Active in a Christian/Sommer Group : Yes Gnosticism Preference : Hindu Summary/Next Steps Comment/Summary : Prayer and encouragement shared with patient. NAE BELL Chaplain - 11/07/2019 11:28 EDT documented in this encounter Plan of Treatment Not on file documented as of this encounter Visit Diagnoses Not on filedocumented in this encounter
--- OUTSIDE RECORDS SUMMARY | 2025-05-19 14:23 | XMS_ITS | Encounter Summary ---
Author Organization [employer] ([place], [place], [place], [place]) Address [address] [place] [address] Care Team Providers Care Sustainable Communities Designer Name Role Phone Unavailable Primary Care Provider Unavailabl e Encounter Details Date Type Department Care Team (Late st Contact Info) Description 11/06/2019 Transcribed Document [facility] [place] [address] [place] [address] ProviderAgnieszka MD [address], [place] [id number] Social History Tobacco Use Types Packs/Day Years [...]
--- OUTSIDE RECORDS SUMMARY | 2025-05-19 14:24 | XMS_ITS | Encounter Summary ---
Author Organization [employer] ([place], [place], [place], [place]) Address [address] [place] [address] Care Team Providers Care Architectural Drafter Name Role Phone Unavailable Primary Care Provider Unavailabl e Encounter Details Date Type Department Care Team (Late st Contact Info) Description 11/06/2019 Transcribed Document [facility] [place] Medicine [address] [place] [address] ProviderAgnieszka MD [address] [place], [place] [address] Social History Tobacco Use Types Packs/Day Years [...]
--- OUTSIDE RECORDS SUMMARY | 2025-05-19 14:24 | XMS_ITS | Encounter Summary ---
Author Organization [email or web address] ([place], [place], [place], [place]) Address [address] [place] [address] Care Team Providers Care Mapping Engineer Name Role Phone Unavailable Primary Care Provider Unavailabl e Encounter Details Date Type Department Care Team (Late st Contact Info) Description 12/22/2018 Transcribed Document [facility] [place] [address] ProviderAgnieszka MD [address], [place] [id number] Social History Tobacco Use Types Packs/Day Years [...] EDT Pain Scale Intensity : 4 Melissa Alexandre RN - 12/23/2018 2:23 EDT Image 4 - Images currently included in the form version of this document have not been included in the text rendition version of the form. documented in this encounter Plan of Treatment Not on file documented as of this encounter Visit Diagnoses Not on filedocumented in this encounter
--- OUTSIDE RECORDS SUMMARY | 2025-05-19 14:24 | XMS_ITS | Encounter Summary ---
Author Organization [employer] ([place], [place], [place], [place]) Address [address] [place] [address] Care Team Providers Care Sulphate Tester Name Role Phone Unavailable Primary Care Provider Unavailabl e Encounter Details Date Type Department Care Team (Late st Contact Info) Description 11/06/2019 Transcribed Document [facility] [place] [facility] [place] [address] ProviderAgnieszka MD [address] [place], [place] [phone] Social History Tobacco Use Types Packs/Day Years [...]
--- OUTSIDE RECORDS SUMMARY | 2025-05-19 14:24 | XMS_ITS | Encounter Summary ---
Author Organization [employer] ([place], [place], [place], [place]) Address [address] [place] [address] Care Team Providers Care Community Recreation Coordinator Name Role Phone Unavailable Primary Care Provider Unavailabl e Encounter Details Date Type Department Care Team (Late st Contact Info) Description 11/06/2019 Transcribed Document [facility] [place] [facility] [place] [address] ProviderAgnieszka MD [address], [place] [id number] Social History Tobacco Use Types Packs/Day Years [...]
--- OUTSIDE RECORDS SUMMARY | 2025-05-19 14:24 | XMS_ITS | Encounter Summary ---
Author Organization [employer] ([place], [place], [place], [place]) Address [address] [place] [address] Care Team Providers Care Product Owner Name Role Phone Unavailable Primary Care Provider Unavailabl e Encounter Details Date Type Department Care Team (Late st Contact Info) Description 11/06/2019 Transcribed Document [facility] [place] [facility] [place] [address] ProviderAgnieszka MD [address] [place], [place] [phone] Social History Tobacco Use Types Packs/Day Years [...]
--- OUTSIDE RECORDS SUMMARY | 2025-05-19 14:24 | XMS_ITS | Encounter Summary ---
Author Organization [employer] ([place], [place], [place], [place]) Address [address] [place] [address] Care Team Providers Care Avp Name Role Phone Unavailable Primary Care Provider Unavailabl e Encounter Details Date Type Department Care Team (Late st Contact Info) Description 11/06/2019 Transcribed Document [facility] [place] [facility] [place] [address] ProviderAgnieszka MD [address], [place] [id number] Social History Tobacco Use Types Packs/Day Years [...] 11/06/2019 16:19 EDT Electronically signed by Taryn [facility] Conversion Associate Team Physician Evelio at 11/12/2022 9:39 PM CDT documented in this encounter Plan of Treatment Not on file documented as of this encounter Visit Diagnoses Not on filedocumented in this encounter
--- OUTSIDE RECORDS SUMMARY | 2025-05-19 14:24 | XMS_ITS | Encounter Summary ---
Author Organization [employer] ([place], [place], [place], [place]) Address [address] [place] [address] Care Team Providers Care Paper Cone Drying Machine Operator Name Role Phone Unavailable Primary Care Provider Unavailabl e Encounter Details Date Type Department Care Team (Late st Contact Info) Description 11/06/2019 Transcribed Document [facility] [place] [address] [place] [address] ProviderAgnieszka MD [address] [place] [address] Social History Tobacco Use Types [...] 11/06/2019 16:19 EDT Electronically signed by Taryn [facility] Conversion Computer Project Manager Cerner at 11/12/2022 9:37 PM CDT documented in this encounter Plan of Treatment Not on file documented as of this encounter Visit Diagnoses Not on filedocumented in this encounter
--- OUTSIDE RECORDS SUMMARY | 2025-05-19 14:24 | XMS_ITS | Encounter Summary ---
Author Organization [employer] ([place], [place], [place], [place]) Address [address] [place] [address] Care Team Providers Care Diagnostic Imaging Manager Name Role Phone Unavailable Primary Care Provider Unavailabl e Encounter Details Date Type Department Care Team (Late st Contact Info) Description 11/06/2019 Transcribed Document [facility] [place] [facility] [place] [address] ProviderAgnieszka MD [address], [place] [id number] Social History Tobacco Use Types Packs/Day Years [...] cultures Thank You, Nate Calles, PharmD PGY1 Industrial Spray Painter Pager: [phone], Ext. [phone] documented in this encounter Plan of Treatment Not on file documented as of this encounter Visit Diagnoses Not on filedocumented in this encounter
--- OUTSIDE RECORDS SUMMARY | 2025-05-19 14:24 | XMS_ITS | Encounter Summary ---
Author Organization [employer] ([place], [place], [place], [place]) Address [address] [place] [address] Care Team Providers Care Creative Manager Name Role Phone Unavailable Primary Care Provider Unavailabl e Encounter Details Date Type Department Care Team (Late st Contact Info) Description 12/16/2018 Transcribed Document [facility] Family Medicine [facility] [place] [address] ProviderAgnieszka MD [address] [place] [address] Social History Tobacco Use Types [...] Source : Measured Height Entry Format : [place]oi Height, Feet : 5 ft(Converted to: 152 cm, 60 Inch) Height, Inches : 9 Inch(Converted to: 0 ft 9 Inch, 22.86 cm) Clinical Height : 175.26 cm Weight Source : Standing scale Weight Entry Format : Upatoi Clinical Dosing Weight : 84.55 kg Weight, Pounds : 186 lb Body Surface Area (BSA) : 2 m2 Body Mass Index : 27.5 kg/m2 ([place]) [place] Body Weight : 70 kg MILTON GAMEZ RN - 12/16/2018 12:13 EDT documented in this encounter Plan of Treatment Not on file documented as of this encounter Visit Diagnoses Not on filedocumented in this encounter
--- OUTSIDE RECORDS SUMMARY | 2025-05-19 14:24 | XMS_ITS | Clinical Summary ---
Author Organization [facility] Address [address] [place] [address] Care Team Providers Care Glue Spreading Machine Operator Name Role Phone Faustino Jones MD Primary Care Provider [phone] Allergies No known active allergies Medications FLUoxetine [...] 1-dose 75+ series) 2024 FIT-DNA 01/23/2025 01/23/2022 [id number] Vaccine (5 - 2024-26 season) 2025 02/07/2022, [...] Recently Relevant to Health Maintenance Insurance [id number] [place] [id number] MEDICARE Care Teams Glue Spreading Machine Operator Relationship Specialty Start Date End Date Faustino Jones MD [address] [place] [address] #1 #1 [place] [id number] PCP - General 12/08/20
--- OUTSIDE RECORDS SUMMARY | 2025-05-19 14:24 | XMS_ITS | Encounter Summary ---
Author Organization [employer] ([place], [place], [place], [place]) Address [address] [place] [address] Care Team Providers Care Nurse Assistant Name Role Phone Unavailable Primary Care Provider Unavailabl e Encounter Details Date Type Department Care Team (Late st Contact Info) Description 12/22/2018 Transcribed Document [facility] Neurology - [address] [place] [address] Mark Akers MD [address] [place] [address] Social History Tobacco Use Types [...] disease) of thoracic spine / SNOMED CT 1808345706 / Confirmed Scoliosis / SNOMED CT 104393765 / Confirmed Parkinson disease / SNOMED CT 41786423 / Confirmed History of obstructive sleep apnea / IMO [id number] / Confirmed Arthritis / SNOMED CT 7515864 / Confirmed Colitis / SNOMED CT 0203286584 / Confirmed, Active Problems (6) Arthritis Colitis [...] of back, RLE weakness. Integumentary: Warm, Dry, [place]. Neurologic: Alert, Oriented. Psychiatric: Cooperative, Appropriate mood [...]
--- OUTSIDE RECORDS SUMMARY | 2025-05-19 14:24 | XMS_ITS | Encounter Summary ---
Author Organization [employer] ([place], [place], [place], [place]) Address [address] [place] [address] Care Team Providers Care Security Coordinator Name Role Phone Unavailable Primary Care Provider Unavailabl e Encounter Details Date Type Department Care Team (Late st Contact Info) Description 12/16/2018 Transcribed Document [facility] [place] [facility] [place] [address] ProviderAgnieszka MD [address] [place] [address] Social History Tobacco Use Types [...] Source : Measured Height Entry Format : [place] Height, Feet : 5 ft(Converted to: 152 [...] Body Mass Index : 60.6 kg/m2 (>HHI) [place] Body Weight : 70 kg MILTON GAMEZ [...] #2 Relationship : , Primary Language : Danish Communication Barrier : None MILTON GAMEZ RN [...] EDT Electronically signed by [facility] Conversion Insulation Batting Machine Operator Cerner at 11/12/2022 9:32 PM CDT documented in this encounter Plan of Treatment Not on file documented as of this encounter Visit Diagnoses Not on filedocumented in this encounter
--- OUTSIDE RECORDS SUMMARY | 2025-05-19 14:25 | XMS_ITS | Encounter Summary ---
Author Organization [employer] ([place], [place], [place], [place]) Address [address] [place] [address] Care Team Providers Care Recharger Name Role Phone Unavailable Primary Care Provider Unavailabl e Encounter Details Date Type Department Care Team (Late st Contact Info) Description 11/05/2019 Transcribed Document [facility] [place] [facility], [facility] [place] [address] ProviderAgnieszka MD [address] [place], [place] [id number] Social History Tobacco Use Types Packs/Day Years [...] MiraLax: 17 Gram, Oral, Daily, PRN: Constipation [place] 10 mg-325 mg oral tablet: 1 Tab, [...] mL: 2 Gram, 100 mL/Hr, IV Piggyback, [id number] hydrALAZINE: 10 mg, IV Push, Q6H, PRN: Hypertension lactobacillus acidophilus: 1 Cap, Oral, Daily lidocaine 1% preservative-free injectable solution: 0.5 mL, IntraDermal, 1-Time morphine: 2 mg, IV Push, Q2H, PRN: Pain (Severe 7-10) sodium chloride 0.9% injectable solution: 10 mL, IV Push, Q8H vancomycin + Sodium Chloride 0.9% intravenous solution 250 mL: 1,250 mg, 250 mL/Hr, IV Piggyback, [id number] Pending Complete fentaNYL: 25 mcg, IV Push, Q10Min Documented Medications Documented Azilect 1 mg oral tablet: 1 Tab, Oral, Daily, 30 Tab, 0 Refill(s) Remicade: 10 mg/kg, IntraVENous, [id number], for Ulcerative Colitis; Last dose: 09/29/2019, 0 [...] 0.9% 50 mL 2 Gram, IV Piggyback, [id number] docusate sodium 100 mg cap 100 mg 1 Cap, Oral, BID lactobacillus acidophilus cap 1 Cap, Oral, Daily lidocaine 1% *PF* inj 2 mL 0.5 mL, IntraDermal, 1-Time rasagiline 1 mg tab 1 mg 1 Tab, Oral, Daily vancomycin + NaCl 0.9% 250 mL 1,250 mg, IV Piggyback, [id number] Continuous: (1) lactated ringers 1,000 mL 1,000 [...] All Problems Parkinson disease / SNOMED CT 03535287 / Confirmed Scoliosis / SNOMED CT 743365416 / Confirmed Colitis / SNOMED CT 9883725214 / Confirmed Arthritis / SNOMED CT 2786810 / Confirmed 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
--- OUTSIDE RECORDS SUMMARY | 2025-05-19 14:25 | XMS_ITS | Encounter Summary ---
Author Organization [facility] ([place], [place], [place], [place]) Address [address] [place] [address] Care Team Providers Care Steam And Power Supervisor Name Role Phone Unavailable Primary Care Provider Unavailabl e Encounter Details Date Type Department Care Team (Late st Contact Info) Description 11/05/2019 Transcribed Document [facility] [place] Family Medicine [address] [place] [address] ProviderAgnieszka MD [address] [place], [place] [id number] Social History Tobacco Use Types Packs/Day Years Used Date Smoking Tobacco: Never Assessed Sex and Gender Information Value Date Recorded Sex Assigned at Not on file Legal Sex Male 2:38 PM CDT Gender Identity Not on file Sexual Orientation Not on file documented as of this encounter Miscellaneous Notes * Cerner Conversion Note - Agnieszka ProviderMD - 11/05/2019 9:27 AM CDT [facility] Main OR IntraOp Summary Primary Physician: HEIDE KAT MD-SNU Finalized Date/Time: 11/06/19 17:47:55 Pt. Name: EILEEN MAYEN JR, D.O.B./Sex: 1950 Male Med Rec #: [id number] Physician: LORENA SAGASTUME MD-INT Financial #: [id number] Pt. Type: I Room/Bed: [facility]/ Admit/Disch: 11/02/19 02:59:00 - Institution: [facility] IntraOp Case Attendance Entry 1 Entry 2 Entry 3 Case Attendee HEIDE KAT WASSON, SANDRA D, RN COMPTON, TRACY, RN MD-DIVYA Role Performed Surgeon/Proceduralist, Hse Manager, First Hse Manager, First First Time In 11/05/19 08:26:00 11/05/19 [...] COURTNEY, PA-INT Role Performed Scrub, First Physician assistant terminal manager ONLINE PUBLISHER/Nurse Account Development Executive Time In 11/05/19 08:26:00 11/05/19 08:26:00 11/05/19 [...] ALCAZAR, OTHER, ATTENDEE #1 Claribel Monteiro MD-ANS Wheel And Axle Inspector Role Performed Anesthesiologist of Vendor Gravel Roofer Record Time In 11/05/19 08:26:00 11/05/19 08:26:00 [...] MORA, RN MARLEN SHETH MD-ERYN Role Performed Hse Manager, Second Hse Manager, First Anesthesiologist Time In 11/05/19 09:25:00 11/05/19 11:00:00 11/05/19 11:16:00 Time Out 11/05/19 09:35:00 11/05/19 11:40:00 11/05/19 12:04:00 Procedure Lumbar Fusion Posterior Lumbar Fusion Posterior Lumbar Fusion Posterior 3 Level 3 Level 3 Level Other Attendee [facility] PUBLISHER LUNCH RELIEF Superficial Wound Closed By: Last Modified By: ARCHIE BENITEZ, RN ARCHIE BENITEZ, RN ARCHIE BENITEZ, RN 11/05/19 09:38:14 11/05/19 11:54:30 11/05/19 11:54:30 [facility] IntraOp Case Attendance Audit 11/05/19 12:08:12 Ornament Maker Hand: WASSONSY Modifier: WASSONSY 1 <+> Time Out [...] Lumbar Fusion Posterior 3 Level 11/05/19 12:07:32 Ornament Maker Hand: WASSONSY Modifier: WASSONSY 12 <+> Time Out 12 <*> Procedure Lumbar Fusion Posterior 3 Level 11/05/19 11:54:30 Ornament Maker Hand: WASSONSY Modifier: WASSONSY 9 <+> Time Out 9 <*> Procedure Lumbar Fusion Posterior 3 Level <+> 11 Case Attendee <+> 11 Role Performed <+> 11 Time In <+> 11 Time Out <+> 11 Procedure <+> 11 Other Attendee <+> 12 Case Attendee <+> 12 Role Performed <+> 12 Time In <+> 12 Procedure <+> 12 Other Attendee 11/05/19 09:38:14 Ornament Maker Hand: WASSONSY Modifier: WASSONSY <+> 10 Case Attendee <+> 10 Role Performed <+> 10 Time In <+> 10 Time Out <+> 10 Procedure 11/05/19 09:35:41 Ornament Maker Hand: WASSONSY Modifier: WASSONSY 1 <*> Procedure Lumbar [...] Procedure Lumbar Fusion Posterior 3 Level [facility] IntraOp Case Times Entry 1 Patient In Room Time 11/05/19 08:26:00 Out Room Time 11/05/19 12:09:00 Anesthesia Start Time 11/05/19 08:26:00 Stop Time 11/05/19 12:09:00 Surgery / Procedure Times Start Time 11/05/19 09:27:00 Stop Time 11/05/19 11:37:00 Last Modified By: ANTON MORA RN 11/05/19 11:39:51 [facility] IntraOp Case Times Audit 11/05/19 12:07:57 Ornament Maker Hand: BRADYCM Modifier: WASSONSY <+> 1 Out Room Time <+> 1 Stop Time 11/05/19 11:39:51 Ornament Maker Hand: WASSONSY Modifier: BRADYCM <+> 1 Stop Time 11/05/19 09:36:28 Ornament Maker Hand: WASSONSY Modifier: WASSONSY <+> 1 Start Time [facility] IntraOp Cautery Entry 1 Entry 2 ESU Identification Cautery Type Monopolar ESU BiPolar ESU Cautery Type Comments ID Number [id number] ID Type Hospital Number Hospital Number Cautery [...] ARCHIE BROWN RN 11/05/19 09:40:16 11/05/19 09:40:16 [facility] IntraOp Communication Entry 1 Communication To Family/Significant other Comment START Communication By ANTON MORA RN Date and Time 11/05/19 09:30:00 Last Modified By: ARCHIE BENITEZ RN 11/05/19 09:37:44 [facility] IntraOp Communication Audit 11/05/19 09:38:20 Ornament Maker Hand: NIKI Modifier: EMMANUELSY 1 <*> Communication By ARCHIE BENITEZ, RN [facility] IntraOp Counts Verification Entry 1 Procedure Lumbar Fusion Posterior 3 Level Count Info Count Type Sponge, Sharps, Miscellaneous Counts Verification Baseline/pre-procedure Sequence Count Results Not Applicable Counts Performed By Count Performed By KENNY IGNACIO ST (Scrub) Count Performed By ARCHIE BENITEZ RN (RN) Last Modified By: ARCHIE BENITEZ RN 11/05/19 09:36:13 [facility] IntraOp Counts Final Entry 1 Procedure Lumbar Fusion Posterior 3 Level Final Count Info Count Type Sponge, Sharps Counts Verification Skin Closure/end of Sequence procedure Count Results Correct, surgeon notified Counts Performed By Count Performed By KENNY IGNACIO ST (Scrub) Count Performed By ANTON MORA RN (RN) Last Modified By: ANTON MORA RN 11/05/19 11:40:06 [facility] IntraOp Cultures and Spec Summary Entry 1 Cultrures and Specimens Specimen Ordered: Yes Test(s) Routine/Path-Lab, Requested/Final Culture(s)/Microbiology Disposition Last Modified By: ARCHIE BENITEZ RN 11/05/19 09:41:15 General Comments: A. EXPLANTED HARDWARE [facility] IntraOp Departure from OR Entry 1 Integumentary Assessment Integumentary WDL Assessment WDL Transfer/Handoff Transfer to PACU Phase I Handoff Method Phone call Handoff Reported to Simon Huang RN Post-op Transport Stretcher/Gurney Via Patient Transport HARITHA FUNES APRN, Accompanied by ARCHIE BENITEZ RN Last Modified By: ARCHIE BENITEZ RN 11/05/19 12:07:42 [facility] IntraOp Departure from OR Audit 11/05/19 12:07:42 Ornament Maker Hand: WASSONSY Modifier: WASSONSY <+> 1 Handoff Reported to 11/05/19 12:02:19 Ornament Maker Hand: WASSONSY Modifier: WASSONSY 1 <*> Patient Transport Accompanied by HARITHA FUNES APRN [facility] IntraOp Drains and Tubes Entry 1 Device Type Zia Drain Size 15fr Drain/Tube Activity Inserted Drain/Tube Suction Bulb Drain/Tube Drainage Serosanguineous Device Location OP SITE Method of Drainage Compression Last Modified By: ANTON MORA RN 11/05/19 11:51:07 [facility] IntraOp Dressing and Packing Entry 1 Type Dressing Location OP SITE Wound Dressing Item Steristrip, Other Applied By RUDOLPH NASCIMENTO PA-INT Other Comments NEOSPORIN OINTMENT, STERISTRIPS, COVADERM Last Modified By: ARCHIE BENITEZ RN 11/05/19 10:43:35 [facility] IntraOp Fire Risk Assessment Entry 1 Fire Info Surgical Site or 1- Yes Incision Above the Xyphoid Open O2 Source 0- No (Mask or Cannula) Available Ignition 1- Yes (ESU, Laser, Light Source) Fire Risk 2 Assessment Score Fire Score Fire Risk Yes Assessment Complete Fire Risk ARCHIE BENITEZ teletypesetter Verified By Fire Risk 11/05/19 08:25:00 Assessment Verified Date/Time Fire Risk Standard Fire Yes Safety Precautions Followed Last Modified By: ARCHIE BENITEZ RN 11/05/19 09:40:43 [facility] IntraOp General Case Database Support 1 Case Information OR OR 10 [facility] Case Level 1 Room Verified Yes Wound Class I - Clean Specialty SN Neurosurgery Anesthesia Type General ASA Class 3 Diagnosis Preop Diagnosis SPINAL INSTABILITY, FRACTURE Postop Same As Preop No Postop Diagnosis SEE MD POST OP NOTE Last Modified By: ARCHIE BENITEZ RN 11/05/19 09:40:59 [facility] IntraOp General Case Data Audit 11/05/19 10:24:22 Ornament Maker Hand: NIKI Modifier: NIKI <+> 1 Preop Diagnosis [facility] IntraOp Implant Log Entry 1 Entry 2 Entry 3 Type Implant (Synthetic) Implant (Synthetic) Implant (Synthetic) Implant Log Implant Type Bone Cement Hardware Hardware Tissue Implant Type Implant CEMENT SPINAL SCR SPNE ALIN FIX FEN SCR SPNE ALIN FIX FEN Identification [id number] Description Implant Quantity 2 4 4 Implant Site OP SITE OPSITE OPSITE Implant Identification Model Number Implant Identification Serial Number Implant [id number] Identification Lot Number Implant J&J:Depuy:Depuy Spine J&J:Depuy:Depuy Spine J&J:Depuy:Depuy Spine Identification Balance Truer Name: Implant [id number] Identification Catalog Number Implant Size Implant Has an Yes Expiration Date Implant Expiration 10/25/21 Date Wasted Radioactive Material Time Implanted Tissue Implant Continue for Tissue Implant Documentation Tissue Identification Number Graft Prep Per Balance Truer Instructions: Tissue Preparation Method: Reconstitution Solution: Reconstitution Solution Lot Number Reconstitution Solution Expiration Date: Thawing Solution Thawing Solution Lot Number Thawing Solution Expiration Date Preparation Materials, Other Preparation Materials, Other Lot Number Preparation Materials, Other Expiration Date Tissue Prepared/Processed By Balance Truer Paperwork Completed Implant Type Comment Last Modified By: ANTON MORA RN BRADY, CHRISTINA M, RN WASSON, SANDRA D, RN 11/05/19 11:44:19 11/05/19 11:44:19 11/05/19 11:13:15 Entry 4 Entry 5 Entry 6 Type Implant (Synthetic) Implant (Synthetic) Implant (Synthetic) Implant Log Implant Type Hardware Hardware Hardware Tissue Implant Type Implant MIS SUNNI PLY SCRW SET RAE CONN EXPEDIUM 200MM RAE SPINE EXPEDIUM Identification [id number] Description Implant Quantity 14 2 1 Implant Site OPSITE OPSIE OPSTE Implant Identification Model Number Implant Identification Serial Number Implant Identification Lot Number Implant J&J:Depuy:Depuy Spine J&J:Depuy:Depuy Spine J&J:Depuy:Depuy Spine Identification Balance Truer Name: Implant [id number] Identification Catalog Number Implant Size Implant Has an Expiration Date Implant Expiration Date Wasted Radioactive Material Time Implanted Tissue Implant Continue for Tissue Implant Documentation Tissue Identification Number Graft Prep Per Balance Truer Instructions: Tissue Preparation Method: Reconstitution Solution: Reconstitution Solution Lot Number Reconstitution Solution Expiration Date: Thawing Solution Thawing Solution Lot Number Thawing Solution Expiration Date Preparation Materials, Other Preparation Materials, Other Lot Number Preparation Materials, Other Expiration Date Tissue Prepared/Processed By Balance Truer Paperwork Completed Implant Type Comment Last Modified By: ARCHIE BENITEZ, ARCHIE BROWN RN WASSON, SANDRA D, RN 11/05/19 11:13:15 11/05/19 11:13:15 11/05/19 11:13:15 Entry 7 Entry 8 Type Implant (Synthetic) Implant (Synthetic) Implant Log Implant Type Hardware Hardware Tissue Implant Type Implant CONN VARIABLE CONN [place] BAND Identification OFFSET-[id number] OPEN/CLOSE-[id number] Description Implant Quantity 2 2 Implant Site OPSITE OPSITE Implant Identification Model Number Implant Identification Serial Number Implant Identification Lot Number Implant J&J:Depuy:Depuy Spine J&J:Depuy:Depuy Spine Identification Balance Truer Name: Implant [id number] Identification Catalog Number Implant Size Implant Has an Expiration Date Implant Expiration Date Wasted Radioactive Material Time Implanted Tissue Implant Continue for Tissue Implant Documentation Tissue Identification Number Graft Prep Per Balance Truer Instructions: Tissue Preparation Method: Reconstitution Solution: Reconstitution Solution Lot Number Reconstitution Solution Expiration Date: Thawing Solution Thawing Solution Lot Number Thawing Solution Expiration Date Preparation Materials, Other Preparation Materials, Other Lot Number Preparation Materials, Other Expiration Date Tissue Prepared/Processed By Balance Truer Paperwork Completed Implant Type Comment Last Modified By: ARCHIE BENITEZ, ARCHIE BROWN RN 11/05/19 11:13:15 11/05/19 11:13:15 [facility] IntraOp Implant Log Audit 11/05/19 11:44:19 Ornament Maker Hand: NIKI Modifier: BRADYCM 1 <*> Implant Identification Description CEMENT SPINAL CONFIDENCE-[id number] 1 <*> Implant Identification Lot Number [id number] 1 <*> Implant Identification Balance Truer J&J:Depuy:Depuy Spine Name: 1 <*> Implant Expiration Date 10/25/21 1 <*> Implant Site OP SITE 1 <*> Implant Quantity 2 1 <*> Implant Identification Catalog [id number] Number 1 <*> Implant Type Bone Cement 1 <*> Implant Has an Expiration Date Yes 1 <*> Type Implant (Synthetic) 2 <*> Implant Identification Description SCR SPNE ALIN FIX FEN [id number] 2 <*> Implant Identification Balance Truer J&J:Depuy:Depuy Spine Name: 2 <*> Implant Site OPSITE 2 <*> Implant Quantity 4 2 <*> Implant Identification Catalog [id number] Number 2 <*> Implant Type Hardware 2 <*> Type Implant (Synthetic) 3 <*> Implant Identification Description SCR SPNE ALIN FIX FEN [id number] 3 <*> Implant Identification Balance Truer J&J:Depuy:Depuy Spine Name: 3 <*> Implant Site OPSITE 3 <*> Implant Quantity 4 3 <*> Implant Identification Catalog [id number] Number 3 <*> Implant Type Hardware 3 <*> Type Implant (Synthetic) 4 <*> Implant Identification Description MIS SUNNI PLY SCRW SET -[id number] 4 <*> Implant Identification Balance Truer J&J:Playrcart:Playrcart Spine Name: 4 <*> Implant Site OPSITE 4 <*> Implant Quantity 14 4 <*> Implant Identification Catalog 003-917 Number 4 <*> Implant Type Hardware 4 <*> Type Implant (Synthetic) 5 <*> Implant Identification Description [id number] 5 <+> Implant Identification Balance Truer Name: 5 <+> Implant Site 5 <+> Implant Quantity 5 <+> Implant Identification Catalog Number 5 <*> Implant Type Hardware 5 <*> Type Implant (Synthetic) 6 <*> Implant Identification Description RAE CONN EXPEDIUM 200MM -[id number] 6 <*> Implant Identification Balance Truer J&J:Depuy:Depuy Spine Name: 6 <*> Implant Site OPSIE 6 <*> Implant Quantity 2 6 <*> Implant Identification Catalog [id number] Number 6 <*> Implant Type Hardware 6 <*> Type Implant (Synthetic) 7 <*> Implant Identification Description RAE SPINE EXPEDIUM [id number] 7 <*> Implant Identification Balance Truer J&J:Depuy:Depuy Spine Name: 7 <*> Implant Site OPSTE 7 <*> Implant Quantity 1 7 <*> Implant Identification Catalog [id number] Number 7 <*> Implant Type Hardware 7 <*> Type Implant (Synthetic) 8 <*> Implant Identification Description CONN VARIABLE OFFSET-[id number] 8 <*> Implant Identification Balance Truer J&J:Elmeruy:Elmeruy Spine Name: 8 <*> Implant Site OPSITE 8 <*> Implant Quantity 2 8 <*> Implant Identification Catalog [id number] Number 8 <*> Implant Type Hardware 8 <*> Type Implant (Synthetic) 9 <-> Implant Identification Description CONN WEDDING BAND OPEN/CLOSE-890586 9 <-> Implant Identification Balance Truer J&J:Depuy:Elmeruy Spine Name: 9 <-> Implant Site OPSITE 9 <-> Implant Quantity 2 9 <-> Implant Identification Catalog [id number] Number 9 <-> Implant Type Hardware 9 <-> Type Implant (Synthetic) 11/05/19 11:13:15 Ornament Maker Hand: WASSONSY Modifier: WASSONSY <+> 2 Implant Identification Description <+> 2 Implant Identification Balance Truer Name: <+> 2 Implant Site <+> 2 Implant Quantity <+> 2 Implant Identification Catalog Number <+> 2 Implant Type <+> 2 Type <+> 3 Implant Identification Description <+> 3 Implant Identification Balance Truer Name: <+> 3 Implant Site <+> 3 Implant Quantity <+> 3 Implant Identification Catalog Number <+> 3 Implant Type <+> 3 Type <+> 4 Implant Identification Description <+> 4 Implant Identification Balance Truer Name: <+> 4 Implant Site <+> 4 Implant Quantity <+> 4 Implant Identification Catalog Number <+> 4 Implant Type <+> 4 Type <+> 5 Implant Identification Description <+> 5 Implant Type <+> 5 Type <+> 6 Implant Identification Description <+> 6 Implant Identification Balance Truer Name: <+> 6 Implant Site <+> 6 Implant Quantity <+> 6 Implant Identification Catalog Number <+> 6 Implant Type <+> 6 Type <+> 7 Implant Identification Description <+> 7 Implant Identification Balance Truer Name: <+> 7 Implant Site <+> 7 Implant Quantity <+> 7 Implant Identification Catalog Number <+> 7 Implant Type <+> 7 Type <+> 8 Implant Identification Description <+> 8 Implant Identification Balance Truer Name: <+> 8 Implant Site <+> 8 Implant Quantity <+> 8 Implant Identification Catalog Number <+> 8 Implant Type <+> 8 Type <+> 9 Implant Identification Description <+> 9 Implant Identification Balance Truer Name: <+> 9 Implant Site <+> 9 Implant Quantity <+> 9 Implant Identification Catalog Number <+> 9 Implant Type <+> 9 Type [facility] IntraOp Intraoperative Assessment Entry 1 Handoff [...] Intraoperative DRESSING TO COCCYX AREA Assessment Comment CHIP DRIER OR Last Modified By: ARCHIE BENITEZ RN 11/05/19 09:41:35 [facility] IntraOp Intraoperative Assessment Audit 11/05/19 10:40:46 Ornament Maker Hand: NIKI Modifier: NIKI <+> 1 Intraoperative Assessment Comment [facility] IntraOp Intraoperative Equipment Entry 1 Type Equipment Equipment Equipment Ganesh Suction System ID Number [id number] Setting 200 MM HG Intraop Monitoring Electrocardiogram Five lead placement (ECG) Electrode Placement Blood Pressure Non-Invasive BP Device Source Blood Pressure Arm, right upper Location Pulse Oximeter Hand, left Probe Site Antiembolic Devices Antiembolic Devices Sequential compression device, knee high Antiembolic Device Bilateral Location Antiembolic Device [id number] ID Number Scopes Photo/Video Documentation Photo No Video No Last Modified By: ARCHIE BENITEZ RN 11/05/19 09:42:18 [facility] IntraOp Medication Admin Entry 1 Entry 2 Entry 3 Medication/Irrigant Bacitracin 50,00units lidocaine 1% w/ Neosporin 15Gm ointment powder vial epinephrine 1:100,000 - [id number] 30ml vial - [id number] Combo Med List Time Administered Route of ADDED TO NS IRRIGATION LOCAL TOPICAL Administration Dose Dose 39549 20 1 Unit of Measure units ml pkt Volume Administered By HEIDE KAT, HEIDE KAT HANCOCK SMITH, MD-SNU MD-SNU COURTNEY, PA-INT Procedure Irrigation Irrigant Volume In Irrigant Volume Out Last Modified By: ARCHIE BENITEZ, ARCHIE BROWN, ARCHIE BROWN RN 11/05/19 10:00:31 11/05/19 10:00:31 11/05/19 10:00:31 Entry 4 Entry 5 Entry 6 Medication/Irrigant SEALR AQUAMANTYS BIPLR SPNG SURGFOAM thrombin 5000units 6.0-507517 [id number] topical powder - [id number] Combo Med List Time Administered Route of [...] 30ml vancomycin 1Gm vial - vial - [id number] Combo Med List Time Administered Route of LOCAL TOPICAL Administration Dose Dose 1 Unit of Measure gram Volume Administered By HEIDE KAT TUTT, MATTHEW PAIGE, MD-SNU MD-SNU Procedure Irrigation Irrigant Volume In Irrigant Volume Out Last Modified By: ARCHIE BENITEZ RN WASSON, SANDRA D, RN 11/05/19 10:00:31 11/05/19 11:01:15 [facility] IntraOp Medication Admin Audit 11/05/19 11:01:15 Ornament Maker Hand: WASSONSY Modifier: WASSONSY <+> 8 Medication/Irrigant <+> 8 Route of Administration <+> 8 Administered By <+> 8 Dose <+> 8 Unit of Measure [facility] IntraOp Patient Positioning Entry 1 Procedure Lumbar [...] Modified By: ARCHIE BENITEZ RN 11/05/19 09:44:47 [facility] IntraOp Sign In Entry 1 Patient, [...] Modified By: ARCHIE BENITEZ RN 11/05/19 09:54:12 [facility] IntraOp Sign Out Entry 1 RN [...] Modified By: ARCHIE BENITEZ RN 11/05/19 10:40:02 [facility] IntraOp Sign Out Audit 11/05/19 12:08:07 Ornament Maker Hand: NIKI Modifier: NIKI <+> 1 RN Sign Out Signature Date/Time [facility] IntraOp Skin Prep Entry 1 Procedure Lumbar Fusion Posterior 3 Level Prescribed N/A Pre-Surgical Prep Completed Prep Area OP SITE AFTER ALCOHOL A ND HIBICLENS PREP PER DR KAT Intraop Prep Integumentary WDL Assessment WDL Prep Agents Alcohol, Chlorhexadine gluconate, DuraPrep Prep by ARCHIE BENITEZ RN Hair Removal Methods No hair removal performed Last Modified By: ARCHIE BENITEZ RN 11/05/19 09:57:03 [facility] IntraOp Skin Prep Audit 11/05/19 09:57:58 Ornament Maker Hand: WASSONSY Modifier: WASSONSY 1 <+> Prep Agents 1 <+> Methods 1 <*> Procedure Lumbar Fusion Posterior 3 Level 1 <+> Prep by [facility] IntraOp Surgical Procedures Entry 1 Procedure Lumbar Fusion Posterior 3 Level Additional (THORACIC 6 - 9 FUSION Procedure EXTENSION WITH AIRO AND Description SCREW AUGMENTATION Primary Procedure Yes Primary Surgeon NORTH, HEIDE MORENO MD-SNU Start 11/05/19 09:27:00 Stop 11/05/19 11:37:00 Anesthesia Type General Specialty Neurosurgery Wound Class I - Clean Last Modified By: ARCHIE BENITEZ RN 11/05/19 12:01:30 [facility] IntraOp Surgical Procedures Audit 11/05/19 12:01:30 Ornament Maker Hand: BRADYCM Modifier: WASSONSY 1 <*> Procedure Lumbar Fusion Posterior 3 Level 1 <*> Additional Procedure Description (THORACIC FUSION EXTENSION WITH AIRO WITH SCREW AUGMENTATION 11/05/19 11:40:16 Ornament Maker Hand: WASSONSY Modifier: BRADYCM <+> 1 Stop 11/05/19 10:32:50 Ornament Maker Hand: WASSONSY Modifier: WASSONSY 1 <*> Procedure Lumbar Fusion Posterior 3 Level 1 <*> Additional Procedure Description (THORACIC FUSION EXTENSION WITH AIRO) [facility] IntraOp Temp Regulation Devices Entry 1 Temp Regulation Temperature Warm blankets, Forced Regulation Device Air Warming device Temperature 55717 Regulation Device Serial/Unit Number Temperature Upper body Regulation Site Temperature Device 43 C Setting Temperature HARITHA FUNES APRN Regulation Device Applied by Last Modified By: ARCHIE BENITEZ RN 11/05/19 09:53:34 [facility] IntraOP Time Out Entry 1 Procedure [...] Modified By: ARCHIE BENITEZ RN 11/05/19 09:37:28 [facility] IntraOp X-Ray and Images Entry 1 X-Ray/Imaging Type Other Fluoroscopy Type Other Site OP SITE Telemetry Nurse Name Calribel Monteiro, Wheel And Axle Inspector X-Ray and Imaging BRAINLAB AIRO Comment INTRAOPERATAIVE CT SCANNER Last Modified By: ARCHIE BENITEZ RN 11/05/19 10:39:20 Case Comments <None> Finalized By: JUNIE ROWLEY Document Signatures Signed By: ARCHIE BENITEZ RN 11/05/19 12:08 JUNIE ROWLEY 11/06/19 17:47 Unfinalized History Date/Time Username Reason for Unfinalizing Freetext Reason for Unfinalizing 11/06/19 17:39 WATERIC Correct Billing Electronically signed by [facility] Conversion Supervisor Slate Splitting Cerner at 11/12/2022 9:52 PM CDT documented in this encounter Plan of Treatment Not on file documented as of this encounter Visit Diagnoses Not on filedocumented in this encounter
--- OUTSIDE RECORDS SUMMARY | 2025-05-19 14:25 | XMS_ITS | Encounter Summary ---
Author Organization [employer] ([place], [place], [place], [place]) Address [address] [place] [address] Care Team Providers Care Legal Intern Name Role Phone Unavailable Primary Care Provider Unavailabl e Encounter Details Date Type Department Care Team (Late st Contact Info) Description 11/05/2019 Transcribed Document [facility] [place] [address] [place] [address] ProviderAgnieszka MD [address], [place] [id number] Social History Tobacco Use Types Packs/Day Years [...] 1950 Associated Diagnoses: None Author: BROOKS GORE, [facility] 69yoM with Low Back Pain [...]
--- OUTSIDE RECORDS SUMMARY | 2025-05-19 14:25 | XMS_ITS | Encounter Summary ---
Author Organization [employer] ([place], [place], [place], [place]) Address [address] [place] [address] Care Team Providers Care Motion Pictures Cartoonist Name Role Phone Unavailable Primary Care Provider Unavailabl e Encounter Details Date Type Department Care Team (Late st Contact Info) Description 11/05/2019 Transcribed Document [facility] [place] [facility] [place] [address] ProviderAgnieszka MD [address] [place], [place] [id number] Social History Tobacco Use Types Packs/Day Years [...] Intervention Information: acetaminophen Performed by Sonya Quezada, Transaction Coordinator-Student Nurse on 11/05/2019 17:08:00 EDT acetaminophen,650mg Oral [...]
--- OUTSIDE RECORDS SUMMARY | 2025-05-19 14:25 | XMS_ITS | Encounter Summary ---
Author Organization [employer] ([place], [place], [place], [place]) Address [address] [place] [address] Care Team Providers Care Net Mobile Developer Name Role Phone Unavailable Primary Care Provider Unavailabl e Encounter Details Date Type Department Care Team (Late st Contact Info) Description 11/06/2019 Transcribed Document [facility] [place] Family Medicine [address] [place] [address] ProviderAgnieszka MD [address] [place], [place] [id number] Social History Tobacco Use Types Packs/Day Years Used Date Smoking Tobacco: Never Assessed Sex and Gender Information Value Date Recorded Sex Assigned at Not on file Legal Sex Male 2:38 PM CDT Gender Identity Not on file Sexual Orientation Not on file documented as of this encounter Miscellaneous Notes * Cerner Conversion Note - Historical ProviderMD - 11/06/2019 2:00 AM CDT Batch Tank Controller Details Entered On: 11/06/2019 1:59 EDT Performed [...] Faye Parekh RN - 11/06/2019 1:59 EDT Electronically signed by Gay Centeno Conversion Gravity Prospecting Operator Helper Cerner at 11/12/2022 9:33 PM CDT documented in this encounter Plan of Treatment Not on file documented as of this encounter Visit Diagnoses Not on filedocumented in this encounter
--- OUTSIDE RECORDS SUMMARY | 2025-05-19 14:25 | XMS_ITS | Encounter Summary ---
Author Organization [employer] ([place], [place], [place], [place]) Address [address] [place] [address] Care Team Providers Care Animation Camera Operator Name Role Phone Unavailable Primary Care Provider Unavailabl e Encounter Details Date Type Department Care Team (Late st Contact Info) Description 11/06/2019 Transcribed Document [facility] Neurology - [address] [place] [address] Mark Akers MD [address] [facility] [address] [place] [address] Social History Tobacco Use Types [...] LOSS: 150 mL. DRAINS: Sam-Burger. COMPLICATIONS: None. /[id number] Mark Akers MD MPT/AQ / MPT / MODL /[id number] documented in this encounter Plan of Treatment Not on file documented as of this encounter Visit Diagnoses Not on filedocumented in this encounter
--- OUTSIDE RECORDS SUMMARY | 2025-05-19 14:25 | XMS_ITS | Encounter Summary ---
Author Organization [employer] ([place], [place], [place], [place]) Address [address] [place] [address] Care Team Providers Care Sr. Operations Manager Name Role Phone Unavailable Primary Care Provider Unavailabl e Encounter Details Date Type Department Care Team (Late st Contact Info) Description 11/05/2019 Transcribed Document [facility] [place] Family Medicine [address] [place] [address] ProviderAgnieszka MD [address] [place], [place] [address] Social History Tobacco Use Types Packs/Day Years [...]
--- OUTSIDE RECORDS SUMMARY | 2025-05-19 14:25 | XMS_ITS | Encounter Summary ---
Author Organization [employer] ([place], [place], [place], [place]) Address [address] [place] [address] Care Team Providers Care Bookkeeper Receptionist Name Role Phone Unavailable Primary Care Provider Unavailabl e Encounter Details Date Type Department Care Team (Late st Contact Info) Description 11/05/2019 Transcribed Document [facility] [place] [facility] Medicine [facility] [place] [address] ProviderAgnieszka MD [address], [place] [phone] Social History Tobacco Use Types Packs/Day Years [...] STR when medically cleared to be released. [facility] following Historical Progress Note : Elvia stated that [facility] is following for patient placement. Patient is scheduled for surgery Friday11/05/19. Cm will continue to follow. ELKE VELÁZQUEZ, Lead Php Developer-E Commerce Developer - 11/04/19 13:06:08 Patient is scheduled for an MRI on and surgery on Friday. He reported wanting to go to [facility]. Cm sent referral packet to [facility]. ELKE VELÁZQUEZ Lead Php Developer-E Commerce Developer - 11/03/19 14:33:22 SAL BERRIOS RN-Care Management - 11/05/2019 12:46 EDT documented in this encounter Plan of Treatment Not on file documented as of this encounter Visit Diagnoses Not on filedocumented in this encounter
--- OUTSIDE RECORDS SUMMARY | 2025-05-19 14:25 | XMS_ITS | Encounter Summary ---
Author Organization [employer] ([place], [place], [place], [place]) Address [address] [place] [address] Care Team Providers Care Shoe Puller Name Role Phone Unavailable Primary Care Provider Unavailabl e Encounter Details Date Type Department Care Team (Late st Contact Info) Description 11/05/2019 Transcribed Document [facility] [place] [address] [place] [address] ProviderAgnieszka MD [address] [place], [place] [address] Social History Tobacco Use Types Packs/Day Years [...]
--- OUTSIDE RECORDS SUMMARY | 2025-05-19 14:25 | XMS_ITS | Encounter Summary ---
Author Organization [employer] ([place], [place], [place], [place]) Address [address] [place] [address] Care Team Providers Care Measurement And Sensing Technician Name Role Phone Unavailable Primary Care Provider Unavailabl e Encounter Details Date Type Department Care Team (Late st Contact Info) Description 11/05/2019 Transcribed Document [facility] [place] Family Medicine [address] [place] [address] ProviderAgnieszka MD [address] [place], [place] [address] Social History Tobacco Use Types Packs/Day Years [...]
[2025-05-19 14:30] VITALS: BP 135/70; PULSE 72
[2025-05-19 15:00] VITALS: BP 135/72; PULSE 73
== END 2025-05-19 23:59 | disposition home or self-care (01) ==
LOC: INF 13:21
PROVIDERS: PCP Family Medicine; Visit Provider Physician Assistant
DX: K51.90 Ulcerative colitis, unspecified, without complications (principal)
CPT/HCPCS: 96365; J3380; J7050

== ENCOUNTER 2025-07-14 12:06 | Outpatient (CLI) | payer MEDICARE, OTHER, SELFPAY ==
--- OUTSIDE RECORDS SUMMARY | 2025-07-14 12:32 | XMS_ITS | Encounter Summary ---
Author Organization [employer] ([place], [place], [place], [place], [place]) Address [address] [place] [address] Care Team Providers Care Senior Software Engineer Analytics Name Role Phone Unavailable Primary Care Provider Unavailabl e Encounter Details Date Type Department Care Team (Late st Contact Info) Description 11/02/2019 Transcribed Document [facility] [place] [facility] [place] [address] ProviderAgnieszka MD [address] [place], [place] [address] Social History Tobacco Use Types Packs/Day Years [...]
--- OUTSIDE RECORDS SUMMARY | 2025-07-14 12:32 | XMS_ITS | Encounter Summary ---
Author Organization [employer] ([place], [place], [place], [place], [place]) Address [address] [place] [address] Care Team Providers Care Remote Sensing Technologist Name Role Phone Unavailable Primary Care Provider Unavailabl e Encounter Details Date Type Department Care Team (Late st Contact Info) Description 11/02/2019 Transcribed Document [facility] [place] [facility] [place] [address] ProviderAgnieszka MD [address] [place], [place] [id number] Social History Tobacco Use Types Packs/Day Years [...]
--- OUTSIDE RECORDS SUMMARY | 2025-07-14 12:32 | XMS_ITS | Clinical Summary ---
Author Organization [facility] Address [address] [place] [address] Phone Care Team Providers Care Director Hair Name Role Phone Alyssa Otero MD [ ] Conditions or Problems Problem Name Problem Code Onset Date Status Entry Date Provider Comment Standard Description Annotate Decubitus ulcer 929505308 (SNOMED CT) 12/14 Active 12/14 J[place]e [place] Pressure ulcer Candidiasis, skin 81936715 (SNOMED CT) 12/14 Active 12/14 J[place] Candidiasis of skin Diarrhea, antibiotic associated 747990715 (SNOMED CT) 12/14 Active 12/14 J[place] Antibiotic-ass ociated diarrhea Abscess, epidural G06.1 (ICD-10-CM) 12/13 Active 12/13 Joslyn Tim 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, thoracic region M46.24 (ICD-10-CM) 12/13 Active 12/13 Joslyn Tim Osteomyelitis of vertebra, thoracic region Pseudomonas infection 60026862 (SNOMED CT) 12/13 Active 12/13 Joslyn Tim Bacterial infection caused by Pseudomonas Positive blood cultures 521404262 (SNOMED CT) 12/13 Active 12/13 Joslyn Tim Organism isolated by microbial culture Benign Essential Hypertension 5436019 (SNOMED CT) 12/13 Active 12/13 Joslyn Tim Benign essential hypertension 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, 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 (ICD-10-CM) 12/13 Active 12/13 Joslyn Tim Rheumatoid arthritis without rheumatoid factor, multiple sites RA with rheumatoid factor, multiple sites M05.79 (ICD-10-CM) 12/13 Active 12/13 Joslyn Dumont Rheumatoid arthritis with rheumatoid factor of multiple sites without organ or systems involvement Parkinson's disease 58358466 (SNOMED CT) 12/13 Active 12/13 Joslyn Dumont Parkinson's disease Medications Medication Instructions Start Date Stop Date Generic Name NDC Provider CEFEPIME HCL 2 GM INJECTION SOLUTION RECONSTITUTED 2 gms IV Q 12 hours/Bioscript s/Wedco 12/14 CEFEPIME HCL 96457923889 Janae Castaneda NYSTATIN POWD apply to groin rash bid NYSTATIN [id number] Alyssa Otero MD FLUCONAZOLE 200 MG TABS 1 tablet FLUCONAZOLE 09809229867 Alyssa Otero MD CEFEPIME HCL 2 GM INJECTION SOLUTION RECONSTITUTED 2 gms IV Q 12 hours/Bioscript s/Wedco 09/23 CEFEPIME HCL [id number] Monica Sepulveda RN SENNA 8.6 MG TABS Take one by mouth daily SENNOSIDES 00485079831 Eva Dodson MIRALAX ORAL PACKET 17 g daily POLYETHYLENE GLYCOL 3350 [id number] Eva Dodson OXYCODONE HCL 5 MG CAPS Q6H/PRN OXYCODONE HCL 41541871192 Eva Dodson OXYBUTYNIN CHLORIDE ER 5 MG [id number] Take by mouth twice a day OXYBUTYNIN CHLORIDE 22782700873 Eva Dodson MICONAZOLE NITRATE 2 % POWD applt twice daily MICONAZOLE NITRATE 99689480956 Eva Dodson CVS MELATONIN 5 MG TABS Take one by mouth daily MELATONIN 37739437843 Eva Dodson MEGESTROL ACETATE 40 MG/ML SUSP 10Milliliter* *OralTwoJeramy esPerDay MEGESTROL ACETATE 00242630317 Eva Dodson ANUCORT-HC 25 MG SUPP take as needed HYDROCORTISONE ACETATE 05293533059 Eva Dodson DIAZEPAM 2 MG TABS Take by mouth twice a day DIAZEPAM 01425002545 Eva Dodson VITAMIN D (CHOLECALCIFEROL ) 25 MCG (1000 UT) CAPS Take one by mouth daily CHOLECALCIFEROL 34070831729 Eva Dodson BISACODYL 10 MG SUPP once daily BISACODYL 50836193371 Eva Dodson BALSAM AMIE-CASTOR OIL OINT 1Application* *TopicalTwo TimesPerDay BALSAM AMIE-CASTOR OIL 61753069358 Eva Dodson BACLOFEN 10 MG TABS Take one by mouth four times daily, morning, noon, early evening and bedtime. BACLOFEN 44795960819 Eva Dodson AMANTADINE HCL 100 MG CAPS Take by mouth twice a day AMANTADINE HCL 18259157800 Eva Dodsno ACETAMINOPHEN 325 MG TABS Q6H/PRN ACETAMINOPHEN 42383478560 Eva Dodson AMLODIPINE BESYLATE 10 MG TABS Take one by mouth daily AMLODIPINE BESYLATE 43417460828 Eva Dodson ACIDOPHILUS LACTOBACILLUS CAPS Take one by mouth daily LACTOBACILLUS 90109693649 Eva Dodson CARBIDOPA-LEVODO PA 25-100 MG TABS Take one by mouth four times daily, morning, noon, early evening and bedtime. CARBIDOPA-LEVODOP A 76252754677 Eva Dodson AZILECT 1 MG TABS Take one by mouth daily RASAGILINE MESYLATE 48449406030 Eva Dodson Medications Administered No information available. 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
[2025-07-14 12:33] VITALS: BP 136/80; PULSE 78; RESP 18; TEMP 36.6; O2SAT 99
[2025-07-14] MEDS: VEDOLIZUMAB 300 MG in 0.9 % SODIUM CHLORIDE 250 ML 500 MG IV (12:33)
--- OUTSIDE RECORDS SUMMARY | 2025-07-14 12:34 | XMS_ITS | Encounter Summary ---
Author Organization [employer] ([place], [place], [place], [place], [place]) Address [address] [place] [address] Care Team Providers Care Railroad Police Officer Name Role Phone Unavailable Primary Care Provider Unavailabl e Encounter Details Date Type Department Care Team (Late st Contact Info) Description 11/02/2019 Transcribed Document [facility] [place] [facility] [place] [address] ProviderAgnieszka MD [address] [place], [place] [address] Social History Tobacco Use Types Packs/Day Years Used Date Smoking Tobacco: Never Assessed Sex and Gender Information Value Date Recorded Sex Assigned at Not on file Legal Sex Male 2:38 PM CDT Gender Identity Not on file Sexual Orientation Not on file documented as of this encounter Miscellaneous Notes * Cerner Conversion Note - Agnieszka Centeno MD - 11/02/2019 4:32 PM CDT Patient: SIMBA [...] MiraLax: 17 Gram, Oral, Daily, PRN: Constipation [place] 5 mg-325 mg oral tablet: 1.5 Tab, [...] mL: 1,250 mg, 250 mL/Hr, IV Piggyback, [id number] Documented Medications Documented Azilect 1 mg oral tablet: 1 Tab, Oral, Daily, 30 Tab, 0 Refill(s) Remicade: 10 mg/kg, IntraVENous, A9Ondgm, for Ulcerative Colitis; Last dose: 09/29/2019, 0 [...] EDT Height Source Stated Height Entry Format [place] Height/Length, FRENCH (ft) 5 ft Height/Length FRENCH 9 Inch CLINICALHEIGHT 175.26 cm [place] Body Weight 70 kg Weight Source Standing scale Weight Entry Format [place] Weight Peruvian lb 178 lb Weight Peruvian oz 6 oz CLINICALWEIGHT 81.08 kg Body Surface Area (BSA) 1.97 m2 Body Mass Index 26.4 kg/m2 HI 11/02/2019 0:47 EDT Height Source Stated Height Entry Format [place] Height/Length, FRENCH (ft) 5 ft Height/Length FRENCH 9 Inch CLINICALHEIGHT 175.26 cm [place] Body Weight 69.73 kg Weight Source, ED Critical estimated dosing weight Weight Entry Format Flo Weight Peruvian lb 205 lb CLINICALWEIGHT 93.18 kg Body [...] -- probiotic Electronically signed by Taryn [facility] Conversion Heating Engineer Cerner at 11/12/2022 9:34 PM CDT documented in this encounter Plan of Treatment Not on file documented as of this encounter Visit Diagnoses Not on filedocumented in this encounter
--- OUTSIDE RECORDS SUMMARY | 2025-07-14 12:34 | XMS_ITS | Encounter Summary ---
Author Organization [employer] ([place], [place], [place], [place], [place]) Address [address] [place] [address] Care Team Providers Care Crm Marketing Manager Name Role Phone Unavailable Primary Care Provider Unavailabl e Encounter Details Date Type Department Care Team (Late st Contact Info) Description 11/02/2019 Transcribed Document [facility] [place] [facility] [place] [address] ProviderAgnieszka MD [address] [place], [place] [address] Social History Tobacco Use Types Packs/Day Years [...] On: 11/02/2019 3:33 EDT by Teresa Mohamud Pizza Delivery Driver Process Patient Disposition : Admit/Observe Personal Belongings [...] - 11/02/2019 3:33 EDT Electronically signed by Taryn [place] Conversion Health Education Assistant Cerner at 11/12/2022 9:37 PM CDT documented in this encounter Plan of Treatment Not on file documented as of this encounter Visit Diagnoses Not on filedocumented in this encounter
--- OUTSIDE RECORDS SUMMARY | 2025-07-14 12:34 | XMS_ITS | Encounter Summary ---
Author Organization [employer] ([place], [place], [place], [place], [place]) Address [address] [place] [address] Care Team Providers Care Paperback Machine Operator Name Role Phone Unavailable Primary Care Provider Unavailabl e Encounter Details Date Type Department Care Team (Late st Contact Info) Description 11/02/2019 Transcribed Document [facility] [place] [facility] [place] [address] ProviderAgnieszka MD [address] [place], [place] [address] Social History Tobacco Use Types Packs/Day Years Used Date Smoking Tobacco: Never Assessed Sex and Gender Information Value Date Recorded Sex Assigned at Not on file Legal Sex Male 2:38 PM CDT Gender Identity Not on file Sexual Orientation Not on file documented as of this encounter Miscellaneous Notes * Cerner Conversion Note - Historical ProviderMD - 11/02/2019 8:42 AM CDT Patient: SIMBA MAYEN JR Age: 69 years Sex: Male : 1950 Associated Diagnoses: None Author: BROOKS GORE, [facility] 69yoM with Low Back Pain - [...]
--- OUTSIDE RECORDS SUMMARY | 2025-07-14 12:34 | XMS_ITS | Encounter Summary ---
Author Organization [employer] ([place], [place], [place], [place], [place]) Address [address] [place] [address] Care Team Providers Care Location Worker Name Role Phone Unavailable Primary Care Provider Unavailabl e Encounter Details Date Type Department Care Team (Late st Contact Info) Description 12/24/2018 Transcribed Document [facility] [place] [facility] [place] [address] Agnieszka Centeno MD [address] [place], [place] [address] Social History Tobacco Use Types Packs/Day Years [...] these instructions at home: Medicines ??? Take kags-tfk-vzrszxm and prescription medicines only as told by [...] cannot use soap and water, use hand food safety coordinator. ? Change your bandage as told by [...] your pee (urine) pale yellow. ? Take kufx-gdg-qhtkeyo or prescription medicines. ? Eat foods that [...] 11/07/2011 Document Revised: 10/28/2017 Document Reviewed: 10/28/2017 [employer] Interactive Patient Education ? 2019 [employer]. Infectious Disease Wound Infection A wound infection [...] at home: Medicines ??? Take or apply bsec-nas-fcjxlji and prescription medicines only as told by [...] cannot use soap and water, use hand food safety coordinator. ? Change your bandage as told by [...] 04/22/2009 Document Revised: 12/19/2016 Document Reviewed: 01/01/2016 [employer] Interactive Patient Education ? 2019 [employer] documented in this encounter Plan of Treatment Not on file documented as of this encounter Visit Diagnoses Not on filedocumented in this encounter
--- OUTSIDE RECORDS SUMMARY | 2025-07-14 12:34 | XMS_ITS | Encounter Summary ---
Author Organization [employer] ([place], [place], [place], [place], [place]) Address [address] [place] [address] Care Team Providers Care Fence Supervisor Name Role Phone Unavailable Primary Care Provider Unavailabl e Encounter Details Date Type Department Care Team (Late st Contact Info) Description 11/02/2019 Transcribed Document [facility] [place] Family Medicine [address] [place] [address] ProviderAgnieszka MD [address] [place] [address] Social History Tobacco Use Types Packs/Day Years [...] On: 11/02/2019 7:20 EDT by Sue [facility] Coord Phone Call for Consults Consult Phone Call/Page Attempt : First call Consult Reason : back osteomylitis Physician Requesting Consult : DONY NOONAN PA-C Physician Requested for Consult : NIC CEVALLOS MD-INF Provider Service Notified Name : Infectious Disease Date and Time Call Returned : 11/02/2019 9:00 EDT [facility] Coord - 11/02/2019 9:04 EDT documented in this encounter Plan of Treatment Not on file documented as of this encounter Visit Diagnoses Not on filedocumented in this encounter
--- OUTSIDE RECORDS SUMMARY | 2025-07-14 12:34 | XMS_ITS | Encounter Summary ---
Author Organization [employer] ([place], [place], [place], [place], [place]) Address [address] [place] [address] Care Team Providers Care Recessing Machine Operator Name Role Phone Unavailable Primary Care Provider Unavailabl e Encounter Details Date Type Department Care Team (Late st Contact Info) Description 11/02/2019 Transcribed Document [facility] [place] Family [place] [facility] [place] [address] ProviderAgnieszka MD [address] [place], [place] [id number] Social History Tobacco Use Types Packs/Day Years [...]
--- OUTSIDE RECORDS SUMMARY | 2025-07-14 12:34 | XMS_ITS | Encounter Summary ---
Author Organization [employer] ([place], [place], [place], [place], [place]) Address [address] [place] [address] Care Team Providers Care Clerk Analyst Name Role Phone Unavailable Primary Care Provider Unavailabl e Encounter Details Date Type Department Care Team (Late st Contact Info) Description 11/02/2019 Transcribed Document [facility] [place] [facility] [place] [address] ProviderAgnieszka MD [address] [place], [place] [id number] Social History Tobacco Use Types Packs/Day Years [...]
--- OUTSIDE RECORDS SUMMARY | 2025-07-14 12:34 | XMS_ITS | Encounter Summary ---
Author Organization [employer] ([place], [place], [place], [place], [place]) Address [address] [place] [address] Care Team Providers Care Counter Roller Name Role Phone Unavailable Primary Care Provider Unavailabl e Encounter Details Date Type Department Care Team (Late st Contact Info) Description 12/24/2018 Transcribed Document [facility] [place] [facility] [place] [address] ProviderAgnieszka MD [address] [place], [place] [phone] Social History Tobacco Use Types Packs/Day Years [...] On: 12/24/2018 15:22 EDT by MARTÍNEZ VALENZUELA RN-Paid Search Marketing AnalystTurntable Engineer Progress Note Discharge Arrangements : Patient Post-Acute [...] Post Acute Providers : Yes MARTÍNEZ VALENZUELA RN-Paid Search Marketing Analyst - 12/24/2018 15:22 EDT Electronically signed by Taryn [facility] Conversion Outpatient Surgery Rn Cerner at 11/12/2022 9:41 PM CDT documented in this encounter Plan of Treatment Not on file documented as of this encounter Visit Diagnoses Not on filedocumented in this encounter
--- OUTSIDE RECORDS SUMMARY | 2025-07-14 12:34 | XMS_ITS | Encounter Summary ---
Author Organization [employer] ([place], [place], [place], [place], [place]) Address [address] [place] [address] Care Team Providers Care Jewelry Sales Associate Name Role Phone Unavailable Primary Care Provider Unavailabl e Encounter Details Date Type Department Care Team (Late st Contact Info) Description 11/02/2019 Transcribed Document [facility] [place] [facility] [place] [address] ProviderAgnieszka MD [address] [place], [place] [address] Social History Tobacco Use Types Packs/Day Years [...] Communication Barrier : None Primary Language : Sami Any Spiritual/Cultural Needs or Requests : No [...] Updated: 12/16/2018 11:32:50 EDT by MILTON GAMEZ, RN) Alcohol: Alcohol Use History No. Use in Last 12 Months: No. (Last Updated: 12/16/2018 11:33:00 EDT by MILTON GAMEZ, RN) Substance Abuse: Drug Use Hx: No. Use in Last 12 Months: No. (Last Updated: 12/16/2018 11:33:06 EDT by MILTON GAMEZ, RN) Musculoskeletal Musculoskeletal Assessment WDL : WDL with exceptions (Comment: pt from home c/o low back pain and muscle spasms x 3-4 days. pt denies any injury to back. pt denies any numbness/tingling. [Teresa Mohamud Rn - 11/02/2019 2:19 EDT] ) Teresa Mohamud Rn - 11/02/2019 2:19 EDT Electronically signed by Stew Centeno Conversion Financial Solutions Advisor Malloryner at 11/12/2022 9:42 PM CDT documented in this encounter Plan of Treatment Not on file documented as of this encounter Visit Diagnoses Not on filedocumented in this encounter
--- OUTSIDE RECORDS SUMMARY | 2025-07-14 12:35 | XMS_ITS | Encounter Summary ---
Author Organization [employer] ([place], [place], [place], [place], [place]) Address [address] [place] [address] Care Team Providers Care Rn Cardiac Cath Name Role Phone Unavailable Primary Care Provider Unavailabl e Encounter Details Date Type Department Care Team (Late st Contact Info) Description 12/24/2018 Transcribed Document [facility] Neurology - [address] [place] [address] Mark Akers MD [address] [facility] [address] [place] [address] Social History Tobacco Use Types [...] hgb: 10.5 plts: 121 1. pod 2 [id number] fusion doing well. good response to surgery. rukhsana output low. -dc rukhsana -cont present care -rehab when bed avail 2. thrombocytopenia mild. likely dilutional. will monitor documented in this encounter Plan of Treatment Not on file documented as of this encounter Visit Diagnoses Not on filedocumented in this encounter
--- OUTSIDE RECORDS SUMMARY | 2025-07-14 12:35 | XMS_ITS | Encounter Summary ---
Author Organization [employer] ([place], [place], [place], [place], [place]) Address [address] [place] [address] Care Team Providers Care Distribution Center Supervisor Name Role Phone Unavailable Primary Care Provider Unavailabl e Encounter Details Date Type Department Care Team (Late st Contact Info) Description 12/24/2018 Transcribed Document [facility] [place] [facility] [place] [address] ProviderAgnieszka MD [address], [place] [id number] Social History Tobacco Use Types Packs/Day Years [...] On: 12/24/2018 18:45 EDT by ADALI NAIR fruit harvester Documentation Discharge Date/Time : 12/24/2018 16:25 EDT [...]
--- OUTSIDE RECORDS SUMMARY | 2025-07-14 12:36 | XMS_ITS | Encounter Summary ---
Author Organization [employer] ([place], [place], [place], [place], [place]) Address [address] [place] [address] Care Team Providers Care Cosmetology Professor Name Role Phone Unavailable Primary Care Provider Unavailabl e Encounter Details Date Type Department Care Team (Late st Contact Info) Description 12/23/2018 Transcribed Document [facility] [place] [facility] [place] [address] ProviderAgnieszka MD [address] [place], [place] [address] Social History Tobacco Use Types Packs/Day Years Used Date Smoking Tobacco: Never Assessed Sex and Gender Information Value Date Recorded Sex Assigned at Not on file Legal Sex Male 2:38 PM CDT Gender Identity Not on file Sexual Orientation Not on file documented as of this encounter Miscellaneous Notes * Cerner Conversion Note - Historical ProviderMD - 12/23/2018 9:56 AM CDT Patient: SIMBA MAYEN JR Age: 68 years Sex: Male : 1950 Associated Diagnoses: None Author: ANITA PALOMARES NP-[facility] 12/23/18 cc: medical management - awaiting A11-simsy PLIF per Dr. Akers S: Doing fine No fevers, chills, sweats No shortness of breath, cough No Chest pain, palpitations, syncope No nausea, vomiting, -flatus, -BM +sotomayor anchored + post-op back pain HPI: Patient is a 68 yo male admitted to [facility] per Dr. Akers for a Z70-eacrf PLIF. Preoperatively patient was found to have [...] mmol/L 12/23/2018 04:01 Chloride Level 113 mmol/L PR 12/23/2018 04:01 Carbon Dioxide Level 25 mmol/L 12/23/2018 04:01 Anion Gap 9 12/23/2018 04:01 Blood Urea Nitrogen 13 mg/dL 12/23/2018 04:01 Glucose Level 100 mg/dL 12/23/2018 04:01 Calcium Level 7.3 mg/dL LOW 12/23/2018 04:01 Creatinine Level 0.90 mg/dL 12/23/2018 04:01 Impression: spondylolisthesis Lspine; awaiting Q95-huvfw PLIF per Dr. Akers hx Arthritis hx [...] list: All Problems Arthritis / SNOMED CT 9925698 / Confirmed Colitis / SNOMED CT 1685649457 / Confirmed DJD (degenerative joint disease) of thoracic spine / SNOMED CT 3268859710 / Confirmed History of obstructive sleep apnea / IMO [id number] / Confirmed Parkinson disease / SNOMED CT 46678747 / Confirmed Scoliosis / SNOMED CT 691635491 / Confirmed, Active Problems (6) Arthritis Colitis [...] (DECEMBER 22 10:00) Electronically signed by Taryn, [facility] Conversion Web Services Architect Cerner at 11/12/2022 9:52 PM CDT documented in this encounter Plan of Treatment Not on file documented as of this encounter Visit Diagnoses Not on filedocumented in this encounter
--- OUTSIDE RECORDS SUMMARY | 2025-07-14 12:36 | XMS_ITS | Encounter Summary ---
Author Organization [employer] ([place], [place], [place], [place], [place]) Address [address] [place] [address] Care Team Providers Care Sash Clamp Operator Name Role Phone Unavailable Primary Care Provider Unavailabl e Encounter Details Date Type Department Care Team (Late st Contact Info) Description 11/08/2019 Transcribed Document [facility] [place] Family Medicine [facility] [place] [address] ProviderAgnieszka MD [address] [place], [place] [address] Social History Tobacco Use Types Packs/Day Years [...] mL: 2 Gram, 200 mL/Hr, IV Piggyback, [id number] docusate sodium: 200 mg, Oral, BID heparin: [...] mL: 1,250 mg, 250 mL/Hr, IV Piggyback, [id number] Pending Complete fentaNYL: 25 mcg, IV Push, Q10Min Documented Medications Documented Azilect 1 mg oral tablet: 1 Tab, Oral, Daily, 30 Tab, 0 Refill(s) Remicade: 10 mg/kg, IntraVENous, [id number], for Ulcerative Colitis; Last dose: 09/29/2019, 0 [...] charted values) WBC 5.1 (NOV 07) 7.2 (OCT 12) 7.2 (NOV 05) 7.5 (NOV 04) HB L 9.1 (NOV 07) L 9.4 (NOV 06) L 11.7 (OCT 11) 14.7 (OCT 10) HCT L 29.2 (NOV 07) L 28.9 (NOV 06) L 36.4 (OCT 11) 49.8 (OCT 10) Plt 168 (NOV 07) 184 (OCT 12) 230 (OCT 11) 240 [...] 11) 0.80 (OCT 10) Glu R 88 (OCT 13) 98 (OCT 12) 98 (OCT 11) 95 (OCT 10) Ca L 8.0 (OCT 13) L 7.8 (OCT 12) L 8.3 (OCT 11) 8.4 (OCT 10) Lactic 0.8 (NOV 07) C 2.4 (OCT 13) 1.3 (OCT 07) PT 11.3 (OCT 10) 11.2 (OCT 07) INR 1.1 (OCT 10) 1.1 (NOV 01) [...] Dr. Akers, plan is to get to [facility] soon. Alyssa Bowens MD saw and examined patient, verified findings, reviewed labs and radiographic data, formulated diagnosis, plan for treatment, and all medical decision making. Stef Villalobos PA-C for Dr. Robson Bowens. Electronically signed by Taryn [facility] Conversion Visual Developer Evelio at 11/12/2022 9:30 PM CDT documented in this encounter Plan of Treatment Not on file documented as of this encounter Visit Diagnoses Not on filedocumented in this encounter
--- OUTSIDE RECORDS SUMMARY | 2025-07-14 12:36 | XMS_ITS | Encounter Summary ---
Author Organization [employer] ([place], [place], [place], [place], [place]) Address [address] [place] [address] Care Team Providers Care Quality Assurance Name Role Phone Unavailable Primary Care Provider Unavailabl e Encounter Details Date Type Department Care Team (Late st Contact Info) Description 12/25/2018 Transcribed Document [facility] [place] [facility] [place] [address] ProviderAgnieszka MD [address], [place] [phone] Social History Tobacco Use Types Packs/Day Years [...] OSMANI RAINEY PTA - 12/25/2018 7:42 EDT Retirement Goals Mobility/Bed Mobility LTG PT Grid Goal [...]
--- OUTSIDE RECORDS SUMMARY | 2025-07-14 12:36 | XMS_ITS | Encounter Summary ---
Author Organization [employer] ([place], [place], [place], [place], [place]) Address [address] [place] [address] Care Team Providers Care Monotype Operator Name Role Phone Unavailable Primary Care Provider Unavailabl e Encounter Details Date Type Department Care Team (Late st Contact Info) Description 12/24/2018 Transcribed Document [facility] [place] [facility] [place] [address] ProviderAgnieszka MD [address] [place] [address] Social History Tobacco Use Types Packs/Day Years Used Date Smoking Tobacco: Never Assessed Sex and Gender Information Value Date Recorded Sex Assigned at Not on file Legal Sex Male 2:38 PM CDT Gender Identity Not on file Sexual Orientation Not on file documented as of this encounter Miscellaneous Notes * Cerner Conversion Note - Agnieszka ProviderMD - 12/24/2018 3:[address] [facility] [place] [id number] SIMBA MAYEN JR :1950 Visit Time:12/22/2018 Your Visit Summary Your Care Team Admitting Physician - HEIDE KAT MD-SNU Attending Physician - NORTH, HEIDE MORENO MD-DIVYA Primary Care Physician - NOAH NUNEZ (REF)MD-[facility] Referring Physician - HEIDE KAT MD-DIVYA [...] 11:30 AM EDT Comments Please go to [facility] at 10:45am for x-rays before appointment at 11:30am Where: [address] [place] [address] [phone] Business (1) Follow Up with HEIDE KAT When 01/04/2019 11:00 AM EDT Comments Appointment has been made Where: [address] [place] [phone]- [employer] (1) Medications What How Much When Instructions [...] at home: Medicines ??? Take or apply gzsc-yci-wkvuywn and prescription medicines only as told by [...] cannot use soap and water, use hand fabrication manager. ? Change your bandage as told by [...] 04/22/2009 Document Revised: 12/19/2016 Document Reviewed: 01/01/2016 [employer]Gig[employer]wl Interactive Patient Education ?? 2019 [employer] Spinal Fusion, Adult, Care After This sheet gives you information about how to care for yourself after your procedure. Your doctor may also give you more specific instructions. If you have problems or questions, contact your doctor. Follow these instructions at home: Medicines ??? Take mnfw-yfn-kcsltce and prescription medicines only as told by [...] cannot use soap and water, use hand fabrication manager. ? Change your bandage as told by [...] your pee (urine) pale yellow. ? Take zacd-nfc-gffxqsy or prescription medicines. ? Eat foods that [...] 11/07/2011 Document Revised: 10/28/2017 Document Reviewed: 10/28/2017 [employer] Interactive Patient Education ?? 2019 [employer]. acetaminophen and oxycodone (a SEET a MIN [...] may report side effects to FDA at 1-007-YJD-7278. What other drugs will affect acetaminophen and [...] affect acetaminophen and oxycodone, including prescription and jrdx-lai-offgdzg medicines, vitamins, and herbal products. Not all [...] to ensure that the information provided by [employer]. ('[employer]') is accurate, up-to-date, and complete, but no guarantee is made to that effect. Drug information contained herein may be time sensitive. [employer] information has been compiled for use by healthcare practitioners and consumers in the [place] and therefore [employer] does not warrant that uses outside of the [place] are appropriate, unless specifically indicated otherwise. [employer]'s drug information does not endorse drugs, diagnose patients or recommend therapy. [employer] drug information is an informational resource designed [...] effective or appropriate for any given patient. [employer] does not assume any responsibility for any aspect of healthcare administered with the aid of information [employer] provides. The information contained herein is not intended to cover all possible uses, directions, precautions, warnings, drug interactions, allergic reactions, or adverse effects. If you have questions about the drugs you are taking, check with your doctor, nurse or pharmacist. Copyright 5448-9396 [employer]. Version: 18.02. Revision Date: 06/24/2018. Emergency Awareness [...] Assistance with quitting is available by contacting 6-099-AOACasgoodasnew electronics GmbHNOW. This is a free resource providing counseling, support, and referral. Or you may contact your personal physician. [employer] Suicide Prevention Lifeline: The National Suicide Prevention [...] Be sure to sign up for the [facility] patient portal, which gives you 17/02 access to your medical information ??? including these discharge instructions ??? using your computer, smartphone, or tablet. Just go to WP Engine to get started. Questions? Call . Test [...] range between ( 0.0 and 7.0 ) Dubois #: 0.81 K/uL -- Normal range between ( 0.16 and 1.00 ) Eos #: 0.03 x10(3)/uL -- Normal range between ( 0.00 and 0.80 ) Dubois %: 9.9 % -- Normal range between [...] ) Urine Bilirubin Dipstick: Small Urine Specific [place]: >1.030 -- Normal range between ( 1.005 [...] in OR: CR CT in OR Patient Name:SIMBA MAYEN JR, I have received and understand this information and was given the opportunity to ask questions. Patient/Supervisor Hydrochloric Area Name: Patient/Supervisor Hydrochloric Area Signature: Relationship to Patient: Clinician/Hospital Supervisor Hydrochloric Area Signature: Date: documented in this encounter Plan of Treatment Not on file documented as of this encounter Visit Diagnoses Not on filedocumented in this encounter
--- OUTSIDE RECORDS SUMMARY | 2025-07-14 12:37 | XMS_ITS | Encounter Summary ---
Author Organization [employer] ([place], [place], [place], [place], [place]) Address [address] [place] [address] Care Team Providers Care Forging Dies Final Finisher Name Role Phone Unavailable Primary Care Provider Unavailabl e Encounter Details Date Type Department Care Team (Late st Contact Info) Description 12/24/2018 Transcribed Document [facility] [place] Family Medicine [facility] [place] [address] ProviderAgnieszka MD [address], [place] [phone] Social History Tobacco Use Types Packs/Day Years [...] On: 12/24/2018 15:23 EDT by MARTÍNEZ VALENZUELA RN-Cooling Pipe Inspector Final Discharge Planning Discharge Arrangements : Patient [...] : IRF -Inpatient Rehabilitation Facility-[facility] MARTÍNEZ VALENZUELA RN-Cooling Pipe Inspector - 12/24/2018 15:23 EDT Final Narrative Note Final Narrative Note : Pt has bed on [facility] at [facility]. Family will transport. D/W Kavya, Leroy, spouse, pt, and bedside RN Malka. MARTÍNEZ VALENZUELA RN-Cooling Pipe Inspector - 12/24/2018 15:23 EDT Electronically signed by Taryn [facility] Conversion Consulting Nurse Cerner at 11/12/2022 9:35 PM CDT documented in this encounter Plan of Treatment Not on file documented as of this encounter Visit Diagnoses Not on filedocumented in this encounter
--- OUTSIDE RECORDS SUMMARY | 2025-07-14 12:37 | XMS_ITS | Encounter Summary ---
Author Organization [employer] ([place], [place], [place], [place], [place]) Address [address] [place] [address] Care Team Providers Care Dining Room Attendant Name Role Phone Unavailable Primary Care Provider Unavailabl e Encounter Details Date Type Department Care Team (Late st Contact Info) Description 12/24/2018 Transcribed Document [facility] [place] [facility] [place] [address] ProviderAgnieszka MD [address] [place] [address] Social History Tobacco Use Types Packs/Day Years Used Date Smoking Tobacco: Never Assessed Sex and Gender Information Value Date Recorded Sex Assigned at Not on file Legal Sex Male 2:38 PM CDT Gender Identity Not on file Sexual Orientation Not on file documented as of this encounter Miscellaneous Notes * Cerner Conversion Note - Agnieszka ProviderMD - 12/24/2018 3:42 PM CDT [address] [address] Patient Copy Patient Information: Name: SIMBA MAYEN JR Current Date: 12/24/2018 15:42:15 : 1950 Patient Address: [address] [facility] [address] Patient Attending Physician: HEIDE KAT MD-[facility] Primary Care Provider: NOAH NUNEZ MD Primary Care Provider Discharge Diagnosis: Lumbar spine scoliosis; Lumbar stenosis Weight on Admission: 409 lb, 3 oz Comment: Follow-up Instructions: With: Address: When: HEIDE KAT [address] [place] [address], [address] [place] [address] Business (1) Within 1 month Comments: with x rays With: Address: When: HEIDE KAT [address] [facility] [place] [id number] Business (1) Within 2 weeks Comments: staple [...] Assistance with quitting is available by contacting 8-468-EJIX-NOW. This is a free resource providing counseling, [...] Be sure to sign up for the [employer] patient portal, which gives you 17/02 access to your medical information ??? including these discharge instructions ??? using your computer, smartphone, or tablet. Just go to Mila to get started. Questions? Call . [facility] would like to thank you for allowing us to assist you with your healthcare needs. FAHEEM Chan JR, KENNETH, (or area representative) have received the above patient education materials/instructions and have verbalized understanding: Patient Signature _ Date/Time Patient Cook Enchilada Signature (if needed) Date/Time Clinician/Hospital Cook Enchilada Signature (if needed) Date/Time documented in this encounter Plan of Treatment Not on file documented as of this encounter Visit Diagnoses Not on filedocumented in this encounter
--- OUTSIDE RECORDS SUMMARY | 2025-07-14 12:37 | XMS_ITS | Encounter Summary ---
Author Organization [employer] ([place], [place], [place], [place], [place]) Address [address] [place] [address] Care Team Providers Care Wood Veneer Taper Name Role Phone Unavailable Primary Care Provider Unavailabl e Encounter Details Date Type Department Care Team (Late st Contact Info) Description 11/10/2019 Transcribed Document [facility] [place] Medicine [facility] [place] [address] ProviderAgnieszka MD [address], [place] [phone] Social History Tobacco Use Types Packs/Day Years [...]
--- OUTSIDE RECORDS SUMMARY | 2025-07-14 12:37 | XMS_ITS | Encounter Summary ---
Author Organization [employer] ([place], [place], [place], [place], [place]) Address [address] [place] [address] Care Team Providers Care Net Finisher Name Role Phone Unavailable Primary Care Provider Unavailabl e Encounter Details Date Type Department Care Team (Late st Contact Info) Description 12/23/2018 Transcribed Document [facility] Neurology - [address] [place] [address] Mark Akers MD [address] [facility] [address] [place] [address] Social History Tobacco Use Types [...] since surgery. Impression and Plan POD 1 A92-aiklv fusion. Continue drain. Keep sotomayor until ambulatory. Heparin for dvt prophylaxis. PT/OT. documented in this encounter Plan of Treatment Not on file documented as of this encounter Visit Diagnoses Not on filedocumented in this encounter
--- OUTSIDE RECORDS SUMMARY | 2025-07-14 12:37 | XMS_ITS | Encounter Summary ---
Author Organization [employer] ([place], [place], [place], [place], [place]) Address [address] [place] [address] Care Team Providers Care Biodiesel Plant Manager Name Role Phone Unavailable Primary Care Provider Unavailabl e Encounter Details Date Type Department Care Team (Late st Contact Info) Description 11/08/2019 Transcribed Document [facility] [place] [address] [place] [address] ProviderAgnieszka MD [address], [place] [phone] Social History Tobacco Use Types Packs/Day Years [...] Level : Assist, maximal MARSHA JOSE OTR/Lc 11/09/2019 10:54 EDT Functional Mobility Mobility Grid Supine to Sit : Rehab Maximal assistance Sit to Supine : Rehab Maximal assistance MARSHA JOSE OTR/Lc Adhikari 11/09/2019 10:54 EDT Cognition Assessment, OT Orientation : Oriented x 4 MARSHA JOSE OTR/Lc Adhikari 11/09/2019 10:54 EDT Indication Assessment, OT Occupational Therapy Indicated : Yes Problem List, OT : Impaired, bed mobility, Impaired, activities daily living, Impaired functional mobility Potential Barriers, OT : None evident Rehabilitation Potential, OT : Good MARSHA JOSE OTR/L - 11/09/2019 10:54 EDT Plan of Care, OT OT Tx Plan/Goals Established w Patient : Yes OT Frequency Rehab : Five days per week OT Duration Rehab : Fourteen days OT Treatments Planned : Activities of daily living, Functional mobility training, Therapeutic activities MARSHA JOSE OTR/L - 11/09/2019 10:54 EDT Residential Goals, OT Grooming LTG Grid Goal #1 Goal #2 Activity : Grooming Grooming Assist : Independent, modified Supervision or set up Date to Meet : 11/17/2019 EDT 11/23/2019 EDT Goal Status : Discontinue Revised MARSHA JOSE OTR/L - 11/09/2019 10:54 EDT MARSHA JOSE OTR/L - 11/09/2019 10:54 EDT Bathing LTG Grid Goal #1 Activity : Bathing Assist : Assist, minimal Date to Meet : 11/23/2019 EDT Goal Status : MARSHA Hdz OTR/L - 11/09/2019 10:54 EDT Dressing, Lower Body LTG Grid Goal #1 Activity : Dressing, Lower Body Assist : Assist, minimal Date to Meet : 11/23/2019 EDT Goal Status : MARSHA Hdz OTR/L - 11/09/2019 10:54 EDT Toilet Transfer LTG Grid Goal #1 Activity : Toilet Transfer, Stand Pivot Sit Assist : Supervision or set up Date to Meet : 11/17/2019 EDT Goal Status : Discontinue MARSHA JOSE OTR/L - 11/09/2019 10:54 EDT Bed Mobility/ Bed Transfer LTG Grid Goal #1 Activity : Bed Mobility/Bed Transfer Assist : Assist, minimal Date to Meet : 11/23/2019 EDT Goal Status : MARSHA Hdz OTR/L - 11/09/2019 10:54 EDT Other LTG Grid [...]
--- OUTSIDE RECORDS SUMMARY | 2025-07-14 12:37 | XMS_ITS | Encounter Summary ---
Author Organization [employer] ([place], [place], [place], [place], [place]) Address [address] [place] [address] Care Team Providers Care Displayer Merchandise Name Role Phone Unavailable Primary Care Provider Unavailabl e Encounter Details Date Type Department Care Team (Late st Contact Info) Description 11/02/2019 Transcribed Document [facility] [place] [facility] [place] [address] ProviderAgnieszka MD [address] [place], [place] [address] Social History Tobacco Use Types Packs/Day Years Used Date Smoking Tobacco: Never Assessed Sex and Gender Information Value Date Recorded Sex Assigned at Not on file Legal Sex Male 2:38 PM CDT Gender Identity Not on file Sexual Orientation Not on file documented as of this encounter Miscellaneous Notes * Cerner Conversion Note - Agnieszka Centeno MD - 11/02/2019 1:06 AM CDT Patient: SIMBA [...] thoracic through iliac posterior instrumentation) with Dr. Oswald until he was doing crunches about 2 [...] Oral, Daily, 30 Tab, 0 Refill(s) Imuran: [id number], every 8 weeks at hospital last dose [...] % 26.3 % Lymph # 2.29 x10(3)/uL Izard % 13.9 % HI Izard # 1.21 K/uL HI Eos % 0.1 [...] I discussed this case with Dr. Benitez, corporate learning consultant for neurosurgery, and he suggested that this might also be related to a fracture. Patient's symptoms did start acutely while attempting to do crunches. He has not reported any feelings of illness over the last 2 weeks as well. No history of IV drug abuse. Patient covered empirically with vancomycin and Zosyn. I discussed this case with Dr. Sagastume, hospitalist corporate learning consultant and patient will be admitted for further [...] treatment plan, Patient indicated understanding of instructions. Electronically signed by Taryn [facility] Conversion Butcher Chicken And Fish Cerner at 11/12/2022 9:47 PM CDT documented in this encounter Plan of Treatment Not on file documented as of this encounter Visit Diagnoses Not on filedocumented in this encounter
--- OUTSIDE RECORDS SUMMARY | 2025-07-14 12:37 | XMS_ITS | Encounter Summary ---
Author Organization [employer] ([place], [place], [place], [place], [place]) Address [address] [place] [address] Care Team Providers Care Medical Biller Coder Name Role Phone Unavailable Primary Care Provider Unavailabl e Encounter Details Date Type Department Care Team (Late st Contact Info) Description 11/08/[address] [facility] [place] [facility] [place] [address] ProviderAgnieszka MD [address] [place], [place] [address] Social History Tobacco Use Types Packs/Day Years [...] is staying in room tonight with him. Buddhism Preference : Religious JEROME CONNELLY Chaplain - 11/08/2019 17:05 EDT documented in this encounter Plan of Treatment Not on file documented as of this encounter Visit Diagnoses Not on filedocumented in this encounter
--- OUTSIDE RECORDS SUMMARY | 2025-07-14 12:37 | XMS_ITS | Encounter Summary ---
Author Organization [employer] ([place], [place], [place], [place], [place]) Address [address] [place] [address] Care Team Providers Care Auto Engine Mechanic Name Role Phone Unavailable Primary Care Provider Unavailabl e Encounter Details Date Type Department Care Team (Late st Contact Info) Description 12/23/2018 Transcribed Document [facility] [place] Medicine [facility] [place] [address] ProviderAgnieszka MD [address], [place] [id number] Social History Tobacco Use Types Packs/Day Years Used Date Smoking Tobacco: Never Assessed Sex and Gender Information Value Date Recorded Sex Assigned at Not on file Legal Sex Male 2:38 PM CDT Gender Identity Not on file Sexual Orientation Not on file documented as of this encounter Miscellaneous Notes * Cerner Conversion Note - Historical ProviderMD - 12/23/2018 1:23 PM CDT Initial Discharge Planning Entered On: 12/23/2018 13:26 EDT Performed On: 12/23/2018 13:23 EDT by MARTÍNEZ VALENZUELA RN-Farm Operations Manager Initial Assessment I Previously Documented Living Environment [...] Contact #2 Relationship : , MARTÍNEZ VALENZUELA RN-Farm Operations Manager - 12/23/2018 13:23 EDT Initial Assessment II Sensory and Motor Deficits : Other: Parkinson's Current Home Treatments and Equipment : None MARTÍNEZ VALENZUELA RN-Farm Operations Manager - 12/23/2018 13:23 EDT Discharge Needs I Anticipated Discharge Date : 12/24/2018 EDT Anticipated Discharge To, CM : Acute Care Facility, half-way facility Current Home Treatment/Equipment : Current Home Treatment/Equipment No qualifying data available. MARTÍNEZ VALENZUELA RN-Farm Operations Manager - 12/23/2018 13:23 EDT Discharge Needs II Professional Skilled Services : Professional Skilled Services No qualifying data available. Needs Assistance with Transportation : Maybe MARTÍNEZ VALENZUELA RN-Farm Operations Manager - 12/23/2018 13:23 EDT Narrative Note Narrative Note : 68yo male pt s/p T10-S1 posterior lateral fusion, L2-S1 lami and PLIF with bilateral iliac bolts. PMH: Parkinson's. met withpt and family at bedside to discuss DCP. Pt ambulated 70ft with Ax2 this am with PT. has concerns regarding taking patient home. She requests rehab at [facility]. Referral sent and informed Colleene. CM will follow. MARTÍNEZ VALENZUELA RN-Farm Operations Manager - 12/23/2018 13:23 EDT documented in this encounter Plan of Treatment Not on file documented as of this encounter Visit Diagnoses Not on filedocumented in this encounter
--- OUTSIDE RECORDS SUMMARY | 2025-07-14 12:37 | XMS_ITS | Encounter Summary ---
Author Organization [employer] ([place], [place], [place], [place], [place]) Address [address] [place] [address] Care Team Providers Care Garnett Fixer Name Role Phone Unavailable Primary Care Provider Unavailabl e Encounter Details Date Type Department Care Team (Late st Contact Info) Description 11/08/2019 Transcribed Document [facility] [place] [address] ProviderAgnieszka MD [address], [place] [id number] Social History Tobacco Use Types Packs/Day Years Used Date Smoking Tobacco: Never Assessed Sex and Gender Information Value Date Recorded Sex Assigned at Not on file Legal Sex Male 2:38 PM CDT Gender Identity Not on file Sexual Orientation Not on file documented as of this encounter Miscellaneous Notes * Cerner Conversion Note - Historical ProviderMD - 11/08/2019 7:35 AM CDT Patient: SIMBA MAYEN JR Age: 69 years Sex: Male : 1950 Associated Diagnoses: None Author: BROOKS GORE, [facility] 69yoM with Low Back Pain - [...] 5.1 (NOV 07) 7.2 (APR 12) 7.2 (OCT 11) 7.5 (OCT 10) HB L 9.1 [...] Brooks Gore RPh Electronically signed by Taryn [facility] Conversion Ladle Operator Cerner at 11/12/2022 9:31 PM CDT documented in this encounter Plan of Treatment Not on file documented as of this encounter Visit Diagnoses Not on filedocumented in this encounter
--- OUTSIDE RECORDS SUMMARY | 2025-07-14 12:37 | XMS_ITS | Encounter Summary ---
Author Organization [employer] ([place], [place], [place], [place], [place]) Address [address] [place] [address] Care Team Providers Care Purchaser Automotive Parts Name Role Phone Unavailable Primary Care Provider Unavailabl e Encounter Details Date Type Department Care Team (Late st Contact Info) Description 11/07/2019 Transcribed Document [facility] [place] [facility] [place] [address] ProviderAgnieszka MD [address], [place] [id number] Social History Tobacco Use Types Packs/Day Years [...]
--- OUTSIDE RECORDS SUMMARY | 2025-07-14 12:37 | XMS_ITS | Encounter Summary ---
Author Organization [employer] ([place], [place], [place], [place], [place]) Address [address] [place] [address] Care Team Providers Care Asp Net Software Developer Name Role Phone Unavailable Primary Care Provider Unavailabl e Encounter Details Date Type Department Care Team (Late st Contact Info) Description 11/07/2019 Transcribed Document [facility] [place] [facility] [place] [address] ProviderAgnieszka MD [address] [place], [place] [address] Social History Tobacco Use Types Packs/Day Years [...] rukhsana for now. Electronically signed by Taryn [facility] Conversion Oil Truck Driver Cerner at 11/12/2022 9:55 PM CDT documented in this encounter Plan of Treatment Not on file documented as of this encounter Visit Diagnoses Not on filedocumented in this encounter
--- OUTSIDE RECORDS SUMMARY | 2025-07-14 12:37 | XMS_ITS | Encounter Summary ---
Author Organization [email or web address] ([place], [place], [place], [place], [place]) Address [address] [place] [address] Care Team Providers Care Solutions Architect Consultant Name Role Phone Unavailable Primary Care Provider Unavailabl e Encounter Details Date Type Department Care Team (Late st Contact Info) Description 11/08/2019 Transcribed Document [facility] [address] [facility] [address] [place] [address] Heide Akers MD [address] [place] [address] [address] [place] [id number] Social History Tobacco Use Types Packs/Day Years [...]
--- OUTSIDE RECORDS SUMMARY | 2025-07-14 12:37 | XMS_ITS | Encounter Summary ---
Author Organization [employer] ([place], [place], [place], [place], [place]) Address [address] [place] [address] Care Team Providers Care Salesperson Sewing Machines Name Role Phone Unavailable Primary Care Provider Unavailabl e Encounter Details Date Type Department Care Team (Late st Contact Info) Description 12/24/2018 Transcribed Document [facility] [place] [place] [facility] [place] [address] ProviderAgnieszka MD [address] [place], [place] [id number] Social History Tobacco Use Types Packs/Day Years [...]
--- OUTSIDE RECORDS SUMMARY | 2025-07-14 12:37 | XMS_ITS | Encounter Summary ---
Author Organization [employer] ([place], [place], [place], [place], [place]) Address [address] [place] [address] Care Team Providers Care Sales Manager Prearranged Funerals Name Role Phone Unavailable Primary Care Provider Unavailabl e Encounter Details Date Type Department Care Team (Late st Contact Info) Description 11/10/2019 Transcribed Document [facility] [place] Family Medicine [facility] [place] [address] ProviderAgnieszka MD [address], [place] [address] Social History Tobacco Use Types Packs/Day Years [...]
--- OUTSIDE RECORDS SUMMARY | 2025-07-14 12:37 | XMS_ITS | Clinical Summary ---
Author Organization [employer] ([place], [place], [place], [place], [place]) Address [address] [place] [address] Care Team Providers Care Shingle Cutter Name Role Phone Unavailable Primary Care Provider [...]
--- OUTSIDE RECORDS SUMMARY | 2025-07-14 12:37 | XMS_ITS | Encounter Summary ---
Author Organization [employer] ([place], [place], [place], [place], [place]) Address [address] [place] [address] Care Team Providers Care Merchandise Collector Name Role Phone Unavailable Primary Care Provider Unavailabl e Encounter Details Date Type Department Care Team (Late st Contact Info) Description 11/08/2019 Transcribed Document [facility] [place] Family Medicine [facility] [place] [address] ProviderAgnieszka MD [address], [place] [address] Social History Tobacco Use Types Packs/Day Years Used Date Smoking Tobacco: Never Assessed Sex and Gender Information Value Date Recorded Sex Assigned at Not on file Legal Sex Male 2:38 PM CDT Gender Identity Not on file Sexual Orientation Not on file documented as of this encounter Miscellaneous Notes * Cerner Conversion Note - Historical ProviderMD - 11/08/2019 2:00 AM CDT Special Service Officer Details Entered On: 11/08/2019 5:11 EDT Performed [...]
--- OUTSIDE RECORDS SUMMARY | 2025-07-14 12:37 | XMS_ITS | Encounter Summary ---
Author Organization [employer] ([place], [place], [place], [place], [place]) Address [address] [place] [address] Care Team Providers Care Forensic Medical Examiner Name Role Phone Unavailable Primary Care Provider Unavailabl e Encounter Details Date Type Department Care Team (Late st Contact Info) Description 11/02/2019 Transcribed Document [facility] [place] Family Medicine [address] [place] [address] ProviderAgnieszka MD [address] [place], [place] [phone] Social History Tobacco Use Types Packs/Day Years [...]
--- OUTSIDE RECORDS SUMMARY | 2025-07-14 12:37 | XMS_ITS | Encounter Summary ---
Author Organization [employer] ([place], [place], [place], [place], [place]) Address [address] [place] [address] Care Team Providers Care Ross Carrier Driver Name Role Phone Unavailable Primary Care Provider Unavailabl e Encounter Details Date Type Department Care Team (Late st Contact Info) Description 11/08/2019 Transcribed Document [facility] [place] Family Medicine [facility] [place] [address] ProviderAgnieszka MD [address], [place] [id number] Social History Tobacco Use Types Packs/Day Years [...]
--- OUTSIDE RECORDS SUMMARY | 2025-07-14 12:37 | XMS_ITS | Encounter Summary ---
Author Organization [employer] ([place], [place], [place], [place], [place]) Address [address] [place] [address] Care Team Providers Care Clinical Pharmacy Specialist Name Role Phone Unavailable Primary Care Provider Unavailabl e Encounter Details Date Type Department Care Team (Late st Contact Info) Description 11/02/2019 Transcribed Document [facility] Family Medicine [facility] [place] [address] ProviderAgnieszka MD [address] [place], [place] [address] Social History Tobacco Use Types Packs/Day Years [...] of Event : Jovi (son) phone number: [phone] Dori Bah RN - 11/02/2019 3:19 EDT documented in this encounter Plan of Treatment Not on file documented as of this encounter Visit Diagnoses Not on filedocumented in this encounter
--- OUTSIDE RECORDS SUMMARY | 2025-07-14 12:37 | XMS_ITS | Encounter Summary ---
Author Organization [employer] ([place], [place], [place], [place], [place]) Address [address] [place] [address] Care Team Providers Care Flame Degreaser Name Role Phone Unavailable Primary Care Provider Unavailabl e Encounter Details Date Type Department Care Team (Late st Contact Info) Description 11/02/2019 Transcribed Document [facility] Family Medicine [address] [place] [address] ProviderAgnieszka MD [address] [place], [place] [address] Social History Tobacco Use Types Packs/Day Years Used Date Smoking Tobacco: Never Assessed Sex and Gender Information Value Date Recorded Sex Assigned at Not on file Legal Sex Male 2:38 PM CDT Gender Identity Not on file Sexual Orientation Not on file documented as of this encounter Miscellaneous Notes * Cerner Conversion Note - Historical ProviderMD - 11/02/2019 12:31 AM CDT [place] Suicide Severity Rating Scale (C-SSRS) Entered On: 11/02/2019 2:21 EDT Performed On: 11/02/2019 2:19 EDT by Teresa Mohamud Rn [place] Suicide Severity Rating Scale (C-SSRS) CSSRS Past [...]
--- OUTSIDE RECORDS SUMMARY | 2025-07-14 12:37 | XMS_ITS | Encounter Summary ---
Author Organization [employer] ([place], [place], [place], [place], [place]) Address [address] [place] [address] Care Team Providers Care Assistant Signal Maintainer Name Role Phone Unavailable Primary Care Provider Unavailabl e Encounter Details Date Type Department Care Team (Late st Contact Info) Description 11/08/2019 Transcribed Document [facility] [place] [facility] [place] [address] ProviderAgnieszka MD [address], [place] [id number] Social History Tobacco Use Types Packs/Day Years [...] 11/08/2019 14:04 EDT Electronically signed by Taryn [facility] Conversion Pot Runner Cerner at 11/12/2022 9:35 PM CDT documented in this encounter Plan of Treatment Not on file documented as of this encounter Visit Diagnoses Not on filedocumented in this encounter
--- OUTSIDE RECORDS SUMMARY | 2025-07-14 12:38 | XMS_ITS | Encounter Summary ---
Author Organization [employer] ([place], [place], [place], [place], [place]) Address [address] [place] [address] Care Team Providers Care Social Media Content Manager Name Role Phone Unavailable Primary Care Provider Unavailabl e Encounter Details Date Type Department Care Team (Late st Contact Info) Description 11/10/2019 Transcribed Document [facility] [place] Family Medicine [address] [place] [address] ProviderAgnieszka MD [address] [place] [address] Social History Tobacco Use Types Packs/Day Years [...] pleased for one more visit. encouragement provided. Hindu Preference : Rastafarian JEROME CONNELLY Chaplain - 11/10/2019 19:44 EDT documented in this encounter Plan of Treatment Not on file documented as of this encounter Visit Diagnoses Not on filedocumented in this encounter
--- OUTSIDE RECORDS SUMMARY | 2025-07-14 12:38 | XMS_ITS | Encounter Summary ---
Author Organization [employer] ([place], [place], [place], [place], [place]) Address [address] [place] [address] Care Team Providers Care Package Dye Stand Loader Name Role Phone Unavailable Primary Care Provider Unavailabl e Encounter Details Date Type Department Care Team (Late st Contact Info) Description 11/09/2019 Transcribed Document [facility] [place] [facility] [place] [address] ProviderAgnieszka MD [address], [place] [id number] Social History Tobacco Use Types Packs/Day Years [...] form. Electronically signed by Gay [facility] Conversion Thread Tool Grinder Set Up Operator Evelio at 11/12/2022 9:49 PM CDT documented in this encounter Plan of Treatment Not on file documented as of this encounter Visit Diagnoses Not on filedocumented in this encounter
--- OUTSIDE RECORDS SUMMARY | 2025-07-14 12:38 | XMS_ITS | Encounter Summary ---
Author Organization [employer] ([place], [place], [place], [place], [place]) Address [address] [place] [address] Care Team Providers Care Pvc Loader Name Role Phone Unavailable Primary Care Provider Unavailabl e Encounter Details Date Type Department Care Team (Late st Contact Info) Description 11/10/2019 Transcribed Document [facility] [place] [facility] [place] [address] ProviderAgnieszka MD [address], [place] [id number] Social History Tobacco Use Types Packs/Day Years Used Date Smoking Tobacco: Never Assessed Sex and Gender Information Value Date Recorded Sex Assigned at Not on file Legal Sex Male 2:38 PM CDT Gender Identity Not on file Sexual Orientation Not on file documented as of this encounter Miscellaneous Notes * Cerner Conversion Note - Historical ProviderMD - 11/10/2019 2:00 AM CDT Diesel Service Journeyman Details Entered On: 11/10/2019 4:25 EDT Performed [...]
--- OUTSIDE RECORDS SUMMARY | 2025-07-14 12:38 | XMS_ITS | Encounter Summary ---
Author Organization [employer] ([place], [place], [place], [place], [place]) Address [address] [place] [address] Care Team Providers Care Continuous Absorption Process Operator Name Role Phone Unavailable Primary Care Provider Unavailabl e Encounter Details Date Type Department Care Team (Late st Contact Info) Description 11/09/2019 Transcribed Document [facility] [place] [facility] [place] [address] ProviderAgnieszka MD [address] [place], [place] [address] Social History Tobacco Use Types Packs/Day Years [...] On: 11/09/2019 5:00 EDT by Radha Josue Property Disposal Manager-Health Unit Coord Chart Check Powerplans Initiated/Discontinued as Appropriate : Yes All Active Orders Reviewed : Yes Radha Josue Care Asst-Health Unit Coord - 11/09/2019 4:54 EDT documented in this encounter Plan of Treatment Not on file documented as of this encounter Visit Diagnoses Not on filedocumented in this encounter
--- OUTSIDE RECORDS SUMMARY | 2025-07-14 12:38 | XMS_ITS | Encounter Summary ---
Author Organization [employer] ([place], [place], [place], [place], [place]) Address [address] [place] [address] Care Team Providers Care Camouflage Specialist Name Role Phone Unavailable Primary Care Provider Unavailabl e Encounter Details Date Type Department Care Team (Late st Contact Info) Description 11/10/2019 Transcribed Document [facility] [place] Family Medicine [facility] [place] [address] ProviderAgnieszka MD [address], [place] [id number] Social History Tobacco Use Types Packs/Day Years [...] [address] [place] [address] Lexii Villela NURSE PRACTITIONER Re: SIMBA MAYEN [...] is strictly prohibited. Sincerely, LEXII HOUSTON [address] [place] [address] The following document(s) were included in the letter: November 10, 2019 11:51:00 EDT - (11/10/2019) Discharge Note documented in this encounter Plan of Treatment Not on file documented as of this encounter Visit Diagnoses Not on filedocumented in this encounter
--- OUTSIDE RECORDS SUMMARY | 2025-07-14 12:38 | XMS_ITS | Encounter Summary ---
Author Organization [employer] ([place], [place], [place], [place], [place]) Address [address] [place] [address] Care Team Providers Care Firefighter Type One Name Role Phone Unavailable Primary Care Provider Unavailabl e Encounter Details Date Type Department Care Team (Late st Contact Info) Description 11/08/2019 Transcribed Document [facility] [place] [facility] [place] [address] ProviderAgnieszka MD [facility] [place], [place] [id number] Social History Tobacco Use Types Packs/Day Years [...]
--- OUTSIDE RECORDS SUMMARY | 2025-07-14 12:38 | XMS_ITS | Encounter Summary ---
Author Organization [employer] ([place], [place], [place], [place], [place]) Address [address] [place] [address] Care Team Providers Care Sound Engineering Technician Name Role Phone Unavailable Primary Care Provider Unavailabl e Encounter Details Date Type Department Care Team (Late st Contact Info) Description 11/09/2019 Transcribed Document [facility] [place] Family Medicine [address] [place] [address] ProviderAgnieszka MD [address] [place] [address] Social History Tobacco Use Types [...] Laminectomy Hx: Parkinsons, DJD, spinal stenosis, previous [id number] fusion. JACQUI MCGUIRE, PT - 11/09/2019 11:42 [...] Status : Initial goal Comment : Re-paola 11/08 AM JACQUI MCGUIRE, PT - 11/09/2019 11:42 EDT [place] [place]unk Goals Mobility/Bed Mobility LTG PT Grid Goal #1 Goal #2 Activity : Supine to sit Sit to stand Assist : Assist, minimal Assist, moderate Date to Meet : 11/23/2019 EDT 11/23/2019 EDT Goal Status : Revised Revised Comment : via logroll, Re-paola 11/08AM Re-evgiselle AM JACQUI MCGUIRE, PT - 11/09/2019 11:42 [...] Goal Status : Initial goal Comment : Natalie-paola 11/08AM JACQUI MCGUIRE, PT - 11/09/2019 11:42 EDT [...] JACQUI MCGUIRE, PT - 11/09/2019 11:[address] [facility] PT Charges PT Re-Evaluation : 1 JACQUI [...]
--- OUTSIDE RECORDS SUMMARY | 2025-07-14 12:38 | XMS_ITS | Encounter Summary ---
Author Organization [employer] ([place], [place], [place], [place], [place]) Address [address] [place] [address] Care Team Providers Care Coagulant Dipper Name Role Phone Unavailable Primary Care Provider Unavailabl e Encounter Details Date Type Department Care Team (Late st Contact Info) Description 11/10/[address] [facility] [place] [facility] [place] [address] ProviderAgnieszka MD [address], [place] [phone] Social History Tobacco Use Types Packs/Day Years [...] : Pt discharging today and transferring to [facility]/Spinal Unit. [facility] transporting pt at 1400. [...]
--- OUTSIDE RECORDS SUMMARY | 2025-07-14 12:38 | XMS_ITS | Encounter Summary ---
Author Organization [employer] ([place], [place], [place], [place], [place]) Address [address] [place] [address] Care Team Providers Care Procedure Analyst Name Role Phone Unavailable Primary Care Provider Unavailabl e Encounter Details Date Type Department Care Team (Late st Contact Info) Description 11/09/2019 Transcribed Document [facility] [place] Family Medicine [facility] [place] [address] ProviderAgnieszka MD [address] [place], [place] [id number] Social History Tobacco Use Types Packs/Day Years Used Date Smoking Tobacco: Never Assessed Sex and Gender Information Value Date Recorded Sex Assigned at Not on file Legal Sex Male 2:38 PM CDT Gender Identity Not on file Sexual Orientation Not on file documented as of this encounter Miscellaneous Notes * [employer]ner Conversion Note - Historical ProviderMD - 11/09/2019 11:49 AM CDT On [...] Patient Offered Choice/Affiliations Explained : No SAL BERRIOS, RN-Care Management - 11/09/2019 11:49 EDT Narrative Progress Note Narrative Progress Note : Visited w/pt during MDR, and safe plan of discharge is to cont with [facility] upon being released. Pt was resting well this am and reported that OT did visit with him earlier. PT orders entered, and awaiting eval. [facility] is closely following pt. Tranportation will need to be arranged. Historical Progress Note : Neuro surgery note for today pending. Initial plans before first surgery were to transition to [facility]. Second surgery was performed, and spoke with pt/spouse and both still agree to safe plan of discharge being [facility] for rehab when medically cleared for discharge. Spoke to [facility] today, and is going to speak w/pt about facility. CM to cont following SAL BERRIOS RN-Care Management - 11/08/19 14:04:02 Pt off floor since this am for thoracic extension with arrow procedure. CM to cont following, and safe plans of discharge is [facility] when medically cleared to be released. [facility] following SAL BERRIOS RN-Care Management - 11/05/19 12:51:[address] [facility] is following for patient placement. Patient is scheduled for surgery Friday11/05/19. Cm will continue to follow. ELKE VELÁZQUEZ, Art Objects Supervisor-Dermatology Technician - 11/04/19 13:06:08 Patient is scheduled for an MRI on and surgery on Friday. He reported wanting to go to [facility]. Cm sent referral packet to [facility]. ELKE VELÁZQUEZ Art Objects Supervisor-Dermatology Technician - 11/03/19 14:33:22 SAL BERRIOS RN-Care Management - 11/09/2019 11:49 EDT documented in this encounter Plan of Treatment Not on file documented as of this encounter Visit Diagnoses Not on filedocumented in this encounter
--- OUTSIDE RECORDS SUMMARY | 2025-07-14 12:38 | XMS_ITS | Encounter Summary ---
Author Organization [employer] ([place], [place], [place], [place], [place]) Address [address] [place] [address] Care Team Providers Care Collar Stay Fuser Tender Name Role Phone Unavailable Primary Care Provider Unavailabl e Encounter Details Date Type Department Care Team (Late st Contact Info) Description 11/09/2019 Transcribed Document [facility] [place] Family Medicine [facility] [place] [address] ProviderAgnieszka MD [address] [place], [place] [phone] Social History Tobacco Use Types Packs/Day Years [...]
--- OUTSIDE RECORDS SUMMARY | 2025-07-14 12:38 | XMS_ITS | Encounter Summary ---
Author Organization [employer] ([place], [place], [place], [place], [place]) Address [address] [place] [address] Care Team Providers Care Card Lacer Name Role Phone Unavailable Primary Care Provider Unavailabl e Encounter Details Date Type Department Care Team (Late st Contact Info) Description 11/02/2019 Transcribed Document [facility] [place] [facility] [place] [address] ProviderAgnieszka MD [address] [place], [place] [address] Social History Tobacco Use Types Packs/Day Years Used Date Smoking Tobacco: Never Assessed Sex and Gender Information Value Date Recorded Sex Assigned at Not on file Legal Sex Male 2:38 PM CDT Gender Identity Not on file Sexual Orientation Not on file documented as of this encounter Miscellaneous Notes * Cerner Conversion Note - Historical ProviderMD - 11/02/2019 3:41 AM CDT Spiritual [...] booklet; He reported he would call for sheep farm manager if/when he is ready to complete a Living Will Emotional Support : Empathic/Engaged listening, Feelings expressed, Information provided Spiritual and Synagogue : Prayer shared, Spiritual/Synagogue support provided Change, Adjustment and Loss : [...]
--- OUTSIDE RECORDS SUMMARY | 2025-07-14 12:38 | XMS_ITS | Encounter Summary ---
Author Organization [employer] ([place], [place], [place], [place], [place]) Address [address] [place] [address] Care Team Providers Care Referral Nurse Name Role Phone Unavailable Primary Care Provider Unavailabl e Encounter Details Date Type Department Care Team (Late st Contact Info) Description 11/08/2019 Transcribed Document [facility] [place] [facility] [place] [address] ProviderAgnieszka MD [address] [place], [place] [id number] Social History Tobacco Use Types Packs/Day Years [...] All Active Orders Reviewed : Yes Geno Whipple, RN - 11/08/2019 5:10 EDT documented in this encounter Plan of Treatment Not on file documented as of this encounter Visit Diagnoses Not on filedocumented in this encounter
--- OUTSIDE RECORDS SUMMARY | 2025-07-14 12:38 | XMS_ITS | Encounter Summary ---
Author Organization [employer] ([place], [place], [place], [place], [place]) Address [address] [place] [address] Care Team Providers Care Posting Specialist Name Role Phone Unavailable Primary Care Provider Unavailabl e Encounter Details Date Type Department Care Team (Late st Contact Info) Description 11/09/2019 Transcribed Document [facility] [place] [facility] [place] [address] ProviderAgnieszka MD [address] [place], [place] [address] Social History Tobacco Use Types Packs/Day Years Used Date Smoking Tobacco: Never Assessed Sex and Gender Information Value Date Recorded Sex Assigned at Not on file Legal Sex Male 2:38 PM CDT Gender Identity Not on file Sexual Orientation Not on file documented as of this encounter Miscellaneous Notes * Cerner Conversion Note - Agnieszka Centeno MD - 11/09/2019 6:02 PM CDT Patient: SIMBA [...] mL: 2 Gram, 200 mL/Hr, IV Piggyback, [id number] docusate sodium: 200 mg, Oral, BID heparin: [...] mL: 1,250 mg, 250 mL/Hr, IV Piggyback, [id number] Pending Complete fentaNYL: 25 mcg, IV Push, Q10Min Documented Medications Documented Azilect 1 mg oral tablet: 1 Tab, Oral, Daily, 30 Tab, 0 Refill(s) Remicade: 10 mg/kg, IntraVENous, [id number], for Ulcerative Colitis; Last dose: 09/29/2019, 0 Refill(s) carbidopa-levodopa 25 mg-100 mg oral tablet: 1 Tab, Oral, QID, 120 Tab, 0 Refill(s) Physical Examination VS/Measurements Vitals Signs (last 24 hrs) Last Charted Minimum Maximum Temp 98.5 (NOV 08:) 97.8 (NOV 08 04:00) 98.7 (NOV 07:) Mon HR 96 (NOV 08:) 87 (NOV 07 18:15) 100 (NOV 08 11:00) Resp Rate 16 (NOV 08 06:30) 16 (NOV 07:) 18 (NOV 07 23:30) SBP 134 (NOV 08) 124 (NOV 08 11:00) H 147 (NOV 07:) DBP 86 (NOV 08) 77 (NOV 08 11:00) H 95 (NOV 08 06:30) MAP 101 (NOV 08:) 90 (NOV 08 11:00) 111 (NOV 07:15) SpO2 96 (NOV 08:) 96 (NOV 08 [...] (NOV 01) INR 1.1 (OCT 10) 1.1 (OCT 07) PTT H 36.2 (OCT 09) AST 15 (OCT 12) 19 (OCT 11) 16 (OCT 07) ALT L 6 (OCT 12) L 8 (OCT 11) 29 (NOV 01) ALK P 89 (OCT 12) 100 (APR 11) 109 (NOV 01) T Bili 0.6 (NOV [...] micro id prior to making plans for [facility] transfer -- probiotic ?Continue to follow cultures and sensitivity reports an just antibiotics accordingly ?Follow daily labs while in hospital and trend results Discussed at length with in room Electronically signed by Gay Centeno Conversion Orientation And Mobility Instructor Malloryner at 11/12/2022 9:37 PM CDT documented in this encounter Plan of Treatment Not on file documented as of this encounter Visit Diagnoses Not on filedocumented in this encounter
--- OUTSIDE RECORDS SUMMARY | 2025-07-14 12:38 | XMS_ITS | Encounter Summary ---
Author Organization [employer] ([place], [place], [place], [place], [place]) Address [address] [place] [address] Care Team Providers Care Coiler Name Role Phone Unavailable Primary Care Provider Unavailabl e Encounter Details Date Type Department Care Team (Late st Contact Info) Description 11/11/2019 Transcribed Document [facility] [place] [facility] [place] [address] ProviderAgnieszka MD [address] [place], [place] [address] Social History Tobacco Use Types Packs/Day Years [...] and was non-ambulatory. He discharged to [facility]. LILA PIERCE, PT - 11/11/2019 8:07 EDT [...] Goal Status : Not met Comment : Re-evgiselle 11/08 AM LILA PIERCE, PT - 11/11/2019 8:07 EDT Jail Goals Mobility/Bed Mobility LTG PT Grid Goal [...]
--- OUTSIDE RECORDS SUMMARY | 2025-07-14 12:38 | XMS_ITS | Encounter Summary ---
Author Organization [employer] ([place], [place], [place], [place], [place]) Address [address] [place] [address] Care Team Providers Care Director Medical Writing Name Role Phone Unavailable Primary Care Provider Unavailabl e Encounter Details Date Type Department Care Team (Late st Contact Info) Description 11/09/2019 Transcribed Document [facility] [place] [facility] [place] [address] ProviderAgnieszka MD [address] [place], [place] [address] Social History Tobacco Use Types Packs/Day Years Used Date Smoking Tobacco: Never Assessed Sex and Gender Information Value Date Recorded Sex Assigned at Not on file Legal Sex Male 2:38 PM CDT Gender Identity Not on file Sexual Orientation Not on file documented as of this encounter Miscellaneous Notes * Cerner Conversion Note - Historical ProviderMD - 11/09/2019 2:00 AM CDT Ultrasound Applications Specialist Details Entered On: 11/09/2019 4:51 EDT Performed On: 11/09/2019 2:00 EDT by [facility] Order Details Transport Mode Order Detail : Stretcher/Gurney Isolation Precautions Order Detail : Standard Precautions Order Detail : N/A IV Order Detail : 0 Oxygen Order Detail : 0 Nurse Collect Order Detail : 1 Lift/Transfer : Independent Central Line Order Detail : Yes Room Service : Not Appropriate Arterial Line : No [facility] - 11/09/2019 4:51 EDT documented in this encounter Plan of Treatment Not on file documented as of this encounter Visit Diagnoses Not on filedocumented in this encounter
--- OUTSIDE RECORDS SUMMARY | 2025-07-14 12:38 | XMS_ITS | Encounter Summary ---
Author Organization [employer] ([place], [place], [place], [place], [place]) Address [address] [place] [address] Care Team Providers Care Rug Clipper Name Role Phone Unavailable Primary Care Provider Unavailabl e Encounter Details Date Type Department Care Team (Late st Contact Info) Description 11/10/2019 Transcribed Document [facility] [place] [address] [place] [address] ProviderAgnieszka MD [address] [place], [place] [address] Social History Tobacco Use Types Packs/Day Years [...] EDT Electronically signed by Gay Centeno Conversion Electrical Construction Project Manager Cerner at 11/12/2022 9:54 PM CDT documented in this encounter Plan of Treatment Not on file documented as of this encounter Visit Diagnoses Not on filedocumented in this encounter
--- OUTSIDE RECORDS SUMMARY | 2025-07-14 12:38 | XMS_ITS | Encounter Summary ---
Author Organization [employer] ([place], [place], [place], [place], [place]) Address [address] [place] [address] Care Team Providers Care Bitumastic Applier Name Role Phone Unavailable Primary Care Provider Unavailabl e Encounter Details Date Type Department Care Team (Late st Contact Info) Description 11/09/2019 Transcribed Document [facility] [place] Medicine [facility] [place] [address] ProviderAgnieszka MD [address], [place] [id number] Social History Tobacco Use Types Packs/Day Years [...] Ministry Provided to : Patient, Family/Significant other Church Preference : Spiritism JEROME CONNELLY Chaplain - 11/09/2019 19:24 EDT [...]
--- OUTSIDE RECORDS SUMMARY | 2025-07-14 12:38 | XMS_ITS | Encounter Summary ---
Author Organization [employer] ([place], [place], [place], [place], [place]) Address [address] [place] [address] Care Team Providers Care Recreational Therapy Technician Name Role Phone Unavailable Primary Care Provider Unavailabl e Encounter Details Date Type Department Care Team (Late st Contact Info) Description 11/10/2019 Transcribed Document [facility] [place] [facility] [address] ProviderAgnieszka MD [address] [place], [place] [id number] Social History Tobacco Use Types Packs/Day Years Used Date Smoking Tobacco: Never Assessed Sex and Gender Information Value Date Recorded Sex Assigned at Not on file Legal Sex Male 2:38 PM CDT Gender Identity Not on file Sexual Orientation Not on file documented as of this encounter Miscellaneous Notes * Cerner Conversion Note - Historical ProviderMD - 11/10/2019 10:12 AM CDT Patient: SIMBA MAYEN JR Age: 69 years Sex: Male : 1950 Associated Diagnoses: None Author: BROOKS GORE, [facility] 69yoM with Low Back Pain - [...] to sign off -pt to transfer to [facility] today Thank You, Brooks Gore RPh Electronically signed by Taryn [facility] Conversion Public Health Representative Cerner at 11/12/2022 9:30 PM CDT documented in this encounter Plan of Treatment Not on file documented as of this encounter Visit Diagnoses Not on filedocumented in this encounter
--- OUTSIDE RECORDS SUMMARY | 2025-07-14 12:38 | XMS_ITS | Encounter Summary ---
Author Organization [employer] ([place], [place], [place], [place], [place]) Address [address] [place] [address] Care Team Providers Care Custodian Blood Bank Name Role Phone Unavailable Primary Care Provider Unavailabl e Encounter Details Date Type Department Care Team (Late st Contact Info) Description 11/08/2019 Transcribed Document [facility] [place] [facility] [place] [address] ProviderAgnieszka MD [address] [place], [place] [address] Social History Tobacco Use Types Packs/Day Years Used Date Smoking Tobacco: Never Assessed Sex and Gender Information Value Date Recorded Sex Assigned at Not on file Legal Sex Male 2:38 PM CDT Gender Identity Not on file Sexual Orientation Not on file documented as of this encounter Miscellaneous Notes * Cerner Conversion Note - Historical ProviderMD - 11/08/2019 1:58 PM CDT On [...] : No SAL BERRIOS, RN-Care Management - 11/08/2019 13:58 EDT Narrative Progress Note Narrative Progress Note : Neuro surgery note for today pending. Initial plans before first surgery were to transition to [facility]. Second surgery was performed, and spoke with pt/spouse and both still agree to safe plan of discharge being [facility] for rehab when medically cleared for discharge. Spoke to [facility] today, and is going to speak w/pt about facility. CM to cont following Historical Progress Note : Pt off floor since this am for thoracic extension with arrow procedure. CM to cont following, and safe plans of discharge is [facility] when medically cleared to be released. [facility] following SAL BERRIOS RN-Care Management - 11/05/19 12:51:13 Elvia stated that [facility] is following for patient placement. Patient is scheduled for surgery Friday11/05/19. Cm will continue to follow. ELKE VELÁZQUEZ, Substation Design Draftsperson-Home Health Physical Therapist - 11/04/19 13:06:08 Patient is scheduled for an MRI on and surgery on Friday. He reported wanting to go to [facility]. Cm sent referral packet to [facility]. ELKE VELÁZQUEZ Substation Design Draftsperson-Home Health Physical Therapist - 11/03/19 14:33:22 SAL BERRIOS RN-Care Management - 11/08/2019 13:58 EDT documented in this encounter Plan of Treatment Not on file documented as of this encounter Visit Diagnoses Not on filedocumented in this encounter
--- OUTSIDE RECORDS SUMMARY | 2025-07-14 12:38 | XMS_ITS | Encounter Summary ---
Author Organization [employer] ([place], [place], [place], [place], [place]) Address [address] [place] [address] Care Team Providers Care Entry Level Administrative Assistant Name Role Phone Unavailable Primary Care Provider Unavailabl e Encounter Details Date Type Department Care Team (Late st Contact Info) Description 11/02/2019 Transcribed Document [facility] [place] [facility] [place] [address] ProviderAgnieszka MD [address], [place] [phone] Social History Tobacco Use Types Packs/Day Years [...] Impaired, gait, Impaired, strength, Impaired, transfers LAVERNE OSLON, PT - 11/03/2019 11:33 EDT Plan of Care, PT PT Tx Plan/Goals Established w Patient : Yes PT Frequency Rehab : Five days per week PT Duration Rehab : Fourteen days PT Treatments Planned : Gait training, Therapeutic exercises, Transfer training LAVERNE OLSON, PT - 11/03/2019 11:33 EDT Shelter Goals Mobility/Bed Mobility LTG PT Grid Goal [...]
--- OUTSIDE RECORDS SUMMARY | 2025-07-14 12:38 | XMS_ITS | Encounter Summary ---
Author Organization [employer] ([place], [place], [place], [place], [place]) Address [address] [place] [address] Care Team Providers Care Photo Stylist Name Role Phone Unavailable Primary Care Provider Unavailabl e Encounter Details Date Type Department Care Team (Late st Contact Info) Description 11/09/2019 Transcribed Document [facility] [place] [address] ProviderAgnieszka MD [address], [place] [address] Social History Tobacco Use Types Packs/Day Years [...]
--- OUTSIDE RECORDS SUMMARY | 2025-07-14 12:38 | XMS_ITS | Encounter Summary ---
Author Organization [employer] ([place], [place], [place], [place], [place]) Address [address] [place] [address] Care Team Providers Care Batch Or Continuous Still Operator Name Role Phone Unavailable Primary Care Provider Unavailabl e Encounter Details Date Type Department Care Team (Late st Contact Info) Description 11/09/2019 Transcribed Document [facility] [place] [facility] [place] [address] ProviderAgnieszka MD [address], [place] [phone] Social History Tobacco Use Types Packs/Day Years [...] Sit to Supine : Rehab Maximal assistance MAILHA COLIN OTR/Lc - 11/10/2019 15:28 EDT Plan of Care, OT OT Tx Plan/Goals Established w Patient : Yes MALIHA COLIN OTR/Lc - 11/10/2019 15:28 EDT Laboratory Equipment Cleaner Goals, OT Grooming LTG Grid Goal #1 [...] EDT Goal Status : MALIHA Aden OTR/Lc - 11/10/2019 15:28 EDT Dressing, Lower Body LTG Grid Goal #1 Activity : Dressing, Lower Body Assist : Assist, minimal Date to Meet : 11/23/2019 EDT Goal Status : MALIHA Aden OTR/Lc - 11/10/2019 15:28 EDT Toilet Transfer [...] text rendition version of the form. [facility] OT Charges OT Selfcare/Hm Mgmt Ea 15 Min : 1 OT Ther Activities Ea 15 Min : 1 MALIHA COLIN OTR/L - 11/10/2019 15:28 EDT Electronically signed by Stew Centeno Conversion Merchandise Pickup/Receiving Associate Cerner at 11/12/2022 9:51 PM CDT documented in this encounter Plan of Treatment Not on file documented as of this encounter Visit Diagnoses Not on filedocumented in this encounter
--- OUTSIDE RECORDS SUMMARY | 2025-07-14 12:38 | XMS_ITS | Encounter Summary ---
Author Organization [employer] ([place], [place], [place], [place], [place]) Address [address] [place] [address] Care Team Providers Care Setter Helper Name Role Phone Unavailable Primary Care Provider Unavailabl e Encounter Details Date Type Department Care Team (Late st Contact Info) Description 11/09/2019 Transcribed Document [facility] [place] [facility] [place] [address] ProviderAgnieszka MD [address], [place] [phone] Social History Tobacco Use Types Packs/Day Years [...]
--- OUTSIDE RECORDS SUMMARY | 2025-07-14 12:38 | XMS_ITS | Encounter Summary ---
Author Organization [employer] ([place], [place], [place], [place], [place]) Address [address] [place] [address] Care Team Providers Care Steam Hand Name Role Phone Unavailable Primary Care Provider Unavailabl e Encounter Details Date Type Department Care Team (Late st Contact Info) Description 11/09/2019 Transcribed Document [facility] [place] [facility] [place] [address] ProviderAgnieszka MD [address], [place] [phone] Social History Tobacco Use Types Packs/Day Years [...] acetaminophen(Pending Validation) Performed by Radha Josue Care [facility] on 11/09/2019 07:07:00 EDT acetaminophen,650mg [...] form. Electronically signed by Gay Centeno Conversion Ordnance Truck Installation Mechanic Cerner at 11/12/2022 9:51 PM CDT documented in this encounter Plan of Treatment Not on file documented as of this encounter Visit Diagnoses Not on filedocumented in this encounter
--- OUTSIDE RECORDS SUMMARY | 2025-07-14 12:38 | XMS_ITS | Encounter Summary ---
Author Organization [employer] ([place], [place], [place], [place], [place]) Address [address] [place] [address] Care Team Providers Care Hydraulic Hammer Operator Name Role Phone Unavailable Primary Care Provider Unavailabl e Encounter Details Date Type Department Care Team (Late st Contact Info) Description 11/09/2019 Transcribed Document [facility] [place] [facility] [place] [address] ProviderAgnieszka MD [address] [place], [place] [address] Social History Tobacco Use Types Packs/Day Years [...] On: 11/09/2019 2:59 EDT by Radha Josue [facility] Unit Coord Intervention Information: acetaminophen Performed by Radha Josue [facility] Unit Coord on 11/09/2019 01:59:00 EDT acetaminophen,650mg Oral Pain Assessment Pain Assessment : Follow-up assessment Pain Scale Goal : 2 Pain Scale Used : 0-10 Scale Radha Josue [facility] Unit Coord - 11/09/2019 4:51 EDT documented in this encounter Plan of Treatment Not on file documented as of this encounter Visit Diagnoses Not on filedocumented in this encounter
--- OUTSIDE RECORDS SUMMARY | 2025-07-14 12:38 | XMS_ITS | Encounter Summary ---
Author Organization [employer] ([place], [place], [place], [place], [place]) Address [address] [place] [address] Care Team Providers Care Personnel Administrator Name Role Phone Unavailable Primary Care Provider Unavailabl e Encounter Details Date Type Department Care Team (Late st Contact Info) Description 11/10/2019 Transcribed Document [facility] [place] [facility] [place] [address] ProviderAgnieszka MD [address], [place] [id number] Social History Tobacco Use Types Packs/Day Years [...] blood flow. ??? 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 ??? Have poor control of their bladder [...] health care provider. General instructions ??? Take ubel-qni-tbegmtj and prescription medicines only as told by [...] 08/21/2005 Document Revised: 04/06/2019 Document Reviewed: 04/06/2019 [employer] Interactive Patient Education ? 2019 [employer] Orthopedics Acute Back Pain, Adult Acute [...] Managing pain, stiffness, and swelling ??? Take zbgg-nmk-cyuwvhn and prescription medicines only as told by [...] day. ??? Do not sit, drive, or back pad inspector one place for more than 30 minutes [...] less stress on your back. ??? Take ljhc-cla-mfalgnq and prescription medicines and apply heat or ice as directed by your health care provider. This information is not intended to replace advice given to you by your health care provider. Make sure you discuss any questions you have with your health care provider. Document Released: 07/14/2006 Document Revised: 02/18/2019 Document Reviewed: 02/25/2018 [employer] Interactive Patient Education ? 2019 [employer] documented in this encounter Plan of Treatment Not on file documented as of this encounter Visit Diagnoses Not on filedocumented in this encounter
--- OUTSIDE RECORDS SUMMARY | 2025-07-14 12:38 | XMS_ITS | Encounter Summary ---
Author Organization [employer] ([place], [place], [place], [place], [place]) Address [address] [place] [address] Care Team Providers Care Glaze Carrier Name Role Phone Unavailable Primary Care Provider Unavailabl e Encounter Details Date Type Department Care Team (Late st Contact Info) Description 11/02/2019 Transcribed Document [facility] [place] [facility] [place] [address] ProviderAgnieszka MD [address], [place] [phone] Social History Tobacco Use Types Packs/Day Years [...] UE Active ROM : WFL JESSICA ROSENBAUM OTR/Lc - 11/03/2019 11:18 EDT Self Care/Home Management, [...] JESSICA ROSENBAUM OTR/L - 11/03/2019 11:18 EDT Corporate Associate Goals, OT Grooming LTG Grid Goal #1 [...] EDT Goal Status : Initial goal ROSENBAUM JESSICA Deshpande OTR/Lc - 11/03/2019 11:18 EDT Bed Mobility/ Bed [...] functional distance. Nicole care with assist from HYDRODYNAMICS PROFESSOR Total. Pt washed his face with set up. Assessment : Pt will benefit from skilled OT during this hospital stay. Plan for Treatment : see ltgs JESSICA ROSENBAUM OTR/Lc - 11/03/2019 11:18 EDT Pain Assessment Pain Scaled Used : 0-10 Pain scale Pain Comment : 11/04 initially laying in bed. More pain with movement, particularly log roll. JESSICA ROSENBAUM OTR/Lc - 11/03/2019 11:18 EDT Image 1 - Images currently included in the form version of this document have not been included in the text rendition version of the form. Anticipated Discharge Needs, OT/PT Anticipated Discharge to : Home, with home health JESSICA ROSENBAUM OTR/Lc - 11/03/2019 11:18 EDT [place] OT Charges OT Selfcare/Hm Mgmt Ea 15 Min : 1 OT Eval Moderate Complexity : 1 JESSICA ROSENBAUM OTR/Lc - 11/03/2019 11:18 EDT documented in this encounter Plan of Treatment Not on file documented as of this encounter Visit Diagnoses Not on filedocumented in this encounter
--- OUTSIDE RECORDS SUMMARY | 2025-07-14 12:38 | XMS_ITS | Encounter Summary ---
Author Organization [employer] ([place], [place], [place], [place], [place]) Address [address] [place] [address] Care Team Providers Care Occupational Health Nurse Name Role Phone Unavailable Primary Care Provider Unavailabl e Encounter Details Date Type Department Care Team (Late st Contact Info) Description 11/02/[address] [facility] [place] [facility] [place] [address] ProviderAgnieszka MD [address], [place] [phone] Social History Tobacco Use Types Packs/Day Years [...]
--- OUTSIDE RECORDS SUMMARY | 2025-07-14 12:38 | XMS_ITS | Encounter Summary ---
Author Organization [employer] ([place], [place], [place], [place], [place]) Address [address] [place] [address] Care Team Providers Care Optical Fabricator Name Role Phone Unavailable Primary Care Provider Unavailabl e Encounter Details Date Type Department Care Team (Late st Contact Info) Description 11/02/2019 Transcribed Document [facility] [place] [facility] [place] [address] ProviderAgnieszka MD [address], [place] [address] Social History Tobacco Use Types Packs/Day Years [...] - 11/02/2019 3:02 AM CDT Patient: SIMBA MAEYN JR Age: 69 years Sex: Male : [...]
--- OUTSIDE RECORDS SUMMARY | 2025-07-14 12:38 | XMS_ITS | Encounter Summary ---
Author Organization [employer] ([place], [place], [place], [place], [place]) Address [address] [place] [address] Care Team Providers Care Aircraft Instrument Repairer Name Role Phone Unavailable Primary Care Provider Unavailabl e Encounter Details Date Type Department Care Team (Late st Contact Info) Description 11/10/2019 Transcribed Document [facility] Family Medicine [facility] [place] [address] ProviderAgnieszka MD [address] [place], [place] [address] Social History Tobacco Use Types Packs/Day Years Used Date Smoking Tobacco: Never Assessed Sex and Gender Information Value Date Recorded Sex Assigned at Not on file Legal Sex Male 2:38 PM CDT Gender Identity Not on file Sexual Orientation Not on file documented as of this encounter Miscellaneous Notes * Cerner Conversion Note - Agnieszka Centeno MD - 11/10/2019 1:06 PM CDT Patient: SIMBA [...] mL: 2 Gram, 200 mL/Hr, IV Piggyback, [id number] docusate sodium: 200 mg, Oral, BID heparin: [...] H 155 (NOV 09 05:52) 134 (NOV 08 14:) H 172 (NOV 09 04:00) DBP H [...] micro id prior to making plans for [facility] transfer -- probiotic ?Continue to follow cultures and sensitivity reports an just antibiotics accordingly ?Follow daily labs while in hospital and trend results Discussed at length with in room documented in this encounter Plan of Treatment Not on file documented as of this encounter Visit Diagnoses Not on filedocumented in this encounter
--- OUTSIDE RECORDS SUMMARY | 2025-07-14 12:38 | XMS_ITS | Encounter Summary ---
Author Organization [employer] ([place], [place], [place], [place], [place]) Address [address] [place] [address] Care Team Providers Care Manager Merchandise Name Role Phone Unavailable Primary Care Provider Unavailabl e Encounter Details Date Type Department Care Team (Late st Contact Info) Description 11/10/2019 Transcribed Document [facility] [place] [facility] [place] [address] ProviderAgnieszka MD [address] [place], [place] [address] Social History Tobacco Use Types Packs/Day Years Used Date Smoking Tobacco: Never Assessed Sex and Gender Information Value Date Recorded Sex Assigned at Not on file Legal Sex Male 2:38 PM CDT Gender Identity Not on file Sexual Orientation Not on file documented as of this encounter Miscellaneous Notes * Cerner Conversion Note - Historical ProviderMD - 11/10/2019 1:34 PM CDT Nursing Discharge Summary Entered On: 11/10/2019 13:36 EDT Performed On: 11/10/2019 13:34 EDT by Dudley Stuart RN-TRAVELER Discharge Documentation Nurse Report w/Opportunity for Questions : Called Discharge, Comment : Rosa from Spine Unit Discharge Date/Time : 11/10/2019 14:23 EDT Dudley Stuart RN-TRAVELER - 11/10/2019 14:23 EDT Patient Disposition, General : Discharge Discharge To : Longterm unit/facility Name of Receiving Facility/Provider : [facility] Mode Of Departure, General Discharge : Ambulance/ALS Accompanied By, Discharge : chemicals fermentation operator IV Discontinued : Not applicable IV Therapy Comment : discharged with PICC for long term antibiotics until January 02 Personal Belongings With Patient : Yes Pt's Own Supply of Medications Returned : No patient supply of medications to return Prescriptions Given to Patient : Yes (Comment: sent with packet to [facility] [Dudley Stuart RN-TRAVELER - 11/10/2019 13:34 EDT] ) Medications Given to Patient : No Discharge Instructions Reviewed With, Opportunity For Questions Given : Other: [facility] staff Patient Education Completed : Yes Number of Prescriptions Given : 3 Teaching Method : Explanation Teaching Evaluation : Verbalizes understanding Education Comment : Advised on plan of care and position changes Dudley Stuart RN-TRAVELER - 11/10/2019 13:34 EDT Electronically signed by Taryn [facility] Conversion Lock And Dam Repairer Cerner at 11/12/2022 9:39 PM CDT documented in this encounter Plan of Treatment Not on file documented as of this encounter Visit Diagnoses Not on filedocumented in this encounter
--- OUTSIDE RECORDS SUMMARY | 2025-07-14 12:39 | XMS_ITS | Encounter Summary ---
Author Organization [employer] ([place], [place], [place], [place], [place]) Address [address] [place] [place] [address] Care Team Providers Care Plate Driller Name Role Phone Unavailable Primary Care Provider Unavailabl e Encounter Details Date Type Department Care Team (Late st Contact Info) Description 11/05/2019 Transcribed Document [facility] Neurology - [address] [facility] [address] [place] [id number] Mark Akers MD [address] [facility] [address] [place] [address] Social History Tobacco Use Types [...] 4. Intraoperative CT scan with stereotactic navigation. SOLUTIONS ENGINEER: Janae Borges. TYPE OF ANESTHESIA: GEA. DESCRIPTION [...] and the usual freehand techniques and the Pathwright system, pedicle screws were placed at T6, [...] LOSS: 250 mL. DRAINS: Sam-Burger. COMPLICATIONS: None. /[id number] Mark Akers MD MPT/AQ / MPT / MODL /[id number] CC: Dr. Faustino Jones documented in this encounter Plan of Treatment Not on file documented as of this encounter Visit Diagnoses Not on filedocumented in this encounter
--- OUTSIDE RECORDS SUMMARY | 2025-07-14 12:39 | XMS_ITS | Encounter Summary ---
Author Organization [employer] ([place], [place], [place], [place], [place]) Address [address] [place] [address] Care Team Providers Care Food Cooking Machine Operator Name Role Phone Unavailable Primary Care Provider Unavailabl e Encounter Details Date Type Department Care Team (Late st Contact Info) Description 11/03/2019 Transcribed Document [facility] [place] Family Medicine [facility] [place] [address] ProviderAgnieszka MD [address] [place], [place] [id number] Social History Tobacco Use Types Packs/Day Years [...] EDT Therapy Diagnosis, PT : Debility LILA PIECRE PT - 11/04/2019 11:21 EDT Admission Date : 11/02/2019 02:59 LILA PIERCE, PT - 11/04/2019 12:30 EDT Assisted by, PT : business office technician/aide LILA PIERCE, PT - 11/04/2019 11:21 [...] LILA PIERCE, PT - 11/04/2019 12:30 EDT Director Of Accounting Goals Mobility/Bed Mobility LTG PT Grid Goal [...] 5 Pain Score Post-Intervention. : 4 LILA PIERCE, PT - 11/04/2019 12:30 EDT Image 1 - Images currently included in the form version of this document have not been included in the text rendition version of the form. Anticipated Discharge Needs, OT/PT Anticipated Discharge to : Unit, rehabilitation, Unit, fpc LILA PIERCE, PT - 11/04/2019 12:[address] PT Charges Gait Training Each 15 Min : 2 LILA PIERCE PT - 11/04/2019 11:21 EDT documented in this encounter Plan of Treatment Not on file documented as of this encounter Visit Diagnoses Not on filedocumented in this encounter
--- OUTSIDE RECORDS SUMMARY | 2025-07-14 12:39 | XMS_ITS | Encounter Summary ---
Author Organization [employer] ([place], [place], [place], [place], [place]) Address [address] [place] [address] Care Team Providers Care Airline Attendant Name Role Phone Unavailable Primary Care Provider Unavailabl e Encounter Details Date Type Department Care Team (Late st Contact Info) Description 11/03/[address] [facility] [place] [facility] [place] [facility] [place] [address] ProviderAgnieszka MD [address] [place], [place] [id number] Social History Tobacco Use Types Packs/Day Years [...] JESSICA ROSENBAUM OTR/L - 11/04/2019 13:16 EDT [facility] Goals, OT [...] 153/102 last reading in supine. Taken by RETAINING ROOM CUTTER. 144/103 seated EOB. Pt left up in [...] Progressing. Plan for Treatment : cont poc ROSENBAUMJEIMYDavid Deshpande OTR/L - 11/04/2019 13:16 EDT Pain Assessment Pain Scaled Used : 0-10 Pain scale Pain Score Post-Intervention. : 0 ILSA JESSICA R, OTR/L - 11/04/2019 13:16 EDT Image 1 - Images currently included in the form version of this document have not been included in the text rendition version of the form. [facility] OT Charges OT Selfcare/Hm Mgmt Ea 15 Min : 2 ILSAJEIMYDavid Deshpande OTR/L - 11/04/2019 13:16 EDT Electronically signed by Gay Centeno Conversion Optometrist President/Practice Owner Cerner at 11/12/2022 9:34 PM CDT documented in this encounter Plan of Treatment Not on file documented as of this encounter Visit Diagnoses Not on filedocumented in this encounter
--- OUTSIDE RECORDS SUMMARY | 2025-07-14 12:39 | XMS_ITS | Encounter Summary ---
Author Organization [employer] ([place], [place], [place], [place], [place]) Address [address] [place] [address] Care Team Providers Care Home Economics Extension Worker Name Role Phone Unavailable Primary Care Provider Unavailabl e Encounter Details Date Type Department Care Team (Late st Contact Info) Description 11/04/2019 Transcribed Document [facility] [place] Medicine [facility] [place] [address] ProviderAgnieszka MD [address] [place], [place] [id number] Social History Tobacco Use Types Packs/Day Years Used Date Smoking Tobacco: Never Assessed Sex and Gender Information Value Date Recorded Sex Assigned at Not on file Legal Sex Male 2:38 PM CDT Gender Identity Not on file Sexual Orientation Not on file documented as of this encounter Miscellaneous Notes * Cerner Conversion Note - Historical ProviderMD - 11/04/2019 10:45 AM CDT Patient: SIMBA MAYEN JR Age: 69 years Sex: Male : 1950 Associated Diagnoses: None Author: EUGENIO BRAXTON, [facility] 69yoM with Low Back Pain - R/O [...] Temp 97.8 (NOV 03 06:36) 97.8 (NOV 03:36) 98.5 (NOV 02 22:25) Mon HR 110 (NOV 03:36) 72 (NOV 02 15:35) 110 (NOV 03:36) Resp Rate 18 (NOV 03:36) 17 (NOV 02 15:35) 20 (NOV 02 22:25) SBP H 164 (NOV 03:36) 134 (NOV 02 18:45) H 189 (NOV 03 05:17) DBP H 108 (NOV 03 06:36) 90 (NOV 02 18:45) H 112 (NOV 03 05:17) MAP 128 (NOV 03:36) 102 (NOV 02 18:45) 131 (NOV 03 [...]
--- OUTSIDE RECORDS SUMMARY | 2025-07-14 12:39 | XMS_ITS | Encounter Summary ---
Author Organization [employer] ([place], [place], [place], [place], [place]) Address [address] [place] [address] Care Team Providers Care Book Jacket Cover Machine Operator Name Role Phone Unavailable Primary Care Provider Unavailabl e Encounter Details Date Type Department Care Team (Late st Contact Info) Description 11/04/2019 Transcribed Document [facility] [place] Family Medicine [facility] [place] [address] ProviderAgnieszka MD [address] [place], [place] [id number] Social History Tobacco Use Types Packs/Day Years [...]
--- OUTSIDE RECORDS SUMMARY | 2025-07-14 12:39 | XMS_ITS | Encounter Summary ---
Author Organization [employer] ([place], [place], [place], [place], [place]) Address [address] [place] [address] Care Team Providers Care Senior Product Engineer Name Role Phone Unavailable Primary Care Provider Unavailabl e Encounter Details Date Type Department Care Team (Late st Contact Info) Description 11/03/2019 Transcribed Document [facility] [place] Medicine [facility] [place] [address] ProviderAgnieszka MD [address] [place], [place] [address] Social History Tobacco Use Types Packs/Day Years [...]
--- OUTSIDE RECORDS SUMMARY | 2025-07-14 12:39 | XMS_ITS | Encounter Summary ---
Author Organization [employer] ([place], [place], [place], [place], [place]) Address [address] [place] [address] Care Team Providers Care Home Care Provider Name Role Phone Unavailable Primary Care Provider Unavailabl e Encounter Details Date Type Department Care Team (Late st Contact Info) Description 11/05/2019 Transcribed Document [facility] [place] [facility] [place] [address] ProviderAgnieszka MD [address], [place] [id number] Social History Tobacco Use Types Packs/Day Years [...]
--- OUTSIDE RECORDS SUMMARY | 2025-07-14 12:39 | XMS_ITS | Encounter Summary ---
Author Organization [employer] ([place], [place], [place], [place], [place]) Address [address] [place] [address] Care Team Providers Care Aerospace Medicine Physician Name Role Phone Unavailable Primary Care Provider Unavailabl e Encounter Details Date Type Department Care Team (Late st Contact Info) Description 11/04/2019 Transcribed Document [facility] Family Medicine [facility] [place] [address] ProviderAgnieszka MD [address] [place], [place] [address] Social History Tobacco Use Types Packs/Day Years [...] On: 11/04/2019 5:00 EDT by Radha Josue Regional Branch Manager-Health Unit Coord Chart Check Powerplans Initiated/Discontinued as Appropriate : Yes All Active Orders Reviewed : Yes Radha Josue Care Asst-Health Unit Coord - 11/04/2019 4:43 EDT documented in this encounter Plan of Treatment Not on file documented as of this encounter Visit Diagnoses Not on filedocumented in this encounter
--- OUTSIDE RECORDS SUMMARY | 2025-07-14 12:39 | XMS_ITS | Encounter Summary ---
Author Organization [employer] ([place], [place], [place], [place], [place]) Address [address] [place] [address] Care Team Providers Care Nuclear Medicine Physician Name Role Phone Unavailable Primary Care Provider Unavailabl e Encounter Details Date Type Department Care Team (Late st Contact Info) Description 11/05/2019 Transcribed Document [facility] [facility] [place] [address] ProviderAgnieszka MD [address] [place], [place] [address] Social History Tobacco Use Types Packs/Day Years [...]
--- OUTSIDE RECORDS SUMMARY | 2025-07-14 12:39 | XMS_ITS | Encounter Summary ---
Author Organization [employer] ([place], [place], [place], [place], [place]) Address [address] [place] [address] Care Team Providers Care Motorman/Woman Name Role Phone Unavailable Primary Care Provider Unavailabl e Encounter Details Date Type Department Care Team (Late st Contact Info) Description 11/03/2019 Transcribed Document [facility] [place] [facility] [place] [address] ProviderAgnieszka MD [address] [place], [place] [id number] Social History Tobacco Use Types Packs/Day Years Used Date Smoking Tobacco: Never Assessed Sex and Gender Information Value Date Recorded Sex Assigned at Not on file Legal Sex Male 2:38 PM CDT Gender Identity Not on file Sexual Orientation Not on file documented as of this encounter Miscellaneous Notes * Cerner Conversion Note - Historical ProviderMD - 11/03/2019 9:19 AM CDT Patient: SIMBA MAYEN JR Age: 69 years Sex: Male : 1950 Associated Diagnoses: None Author: BROOKS GORE, [facility] 69yoM with Low Back Pain [...] (NOV 02 06:19) Resp Rate 18 (NOV 02:19) 16 (NOV [...]
--- OUTSIDE RECORDS SUMMARY | 2025-07-14 12:39 | XMS_ITS | Encounter Summary ---
Author Organization [employer] ([place], [place], [place], [place], [place]) Address [address] [place] [address] Care Team Providers Care Selenium Plant Operator Name Role Phone Unavailable Primary Care Provider Unavailabl e Encounter Details Date Type Department Care Team (Late st Contact Info) Description 11/04/2019 Transcribed Document [facility] [place] [facility] Medicine [facility] [place] [address] ProviderAgnieszka MD [address] [place], [place] [address] Social History Tobacco Use Types Packs/Day Years [...] On: 11/04/2019 13:05 EDT by ELKE VELÁZQUEZ, Drop Hammer Pile Driver Operator-Continuity Clerk Care Management Progress Note Discharge Arrangements : [...] Attend Multidisciplinary Rounds? : No ELKE VELÁZQUEZ Drop Hammer Pile Driver Operator-Continuity Clerk - 11/04/2019 13:05 EDT Narrative Progress Note Narrative Progress Note : Elvia stated that [facility] is following for patient placement. Patient is scheduled for surgery Friday11/05/19. Cm will continue to follow. Historical Progress Note : Patient is scheduled for an MRI on and surgery on Friday. He reported wanting to go to [facility]. Cm sent referral packet to [facility]. ELKE VELÁZQUEZ Drop Hammer Pile Driver Operator-Continuity Clerk - 11/03/19 14:33:22 ELKE VELÁZQUEZ Drop Hammer Pile Driver Operator-Continuity Clerk - 11/04/2019 13:05 EDT documented in this encounter Plan of Treatment Not on file documented as of this encounter Visit Diagnoses Not on filedocumented in this encounter
--- OUTSIDE RECORDS SUMMARY | 2025-07-14 12:39 | XMS_ITS | Encounter Summary ---
Author Organization [employer] ([place], [place], [place], [place], [place]) Address [address] [place] [address] Care Team Providers Care Neurosurgery Physician Name Role Phone Unavailable Primary Care Provider Unavailabl e Encounter Details Date Type Department Care Team (Late st Contact Info) Description 11/05/2019 Transcribed Document [facility] Family Medicine [facility] [place] [address] ProviderAgnieszka MD [address], [place] [phone] Social History Tobacco Use Types Packs/Day Years [...]
--- OUTSIDE RECORDS SUMMARY | 2025-07-14 12:39 | XMS_ITS | Encounter Summary ---
Author Organization [employer] ([place], [place], [place], [place], [place]) Address [address] [place] [address] Care Team Providers Care Funding Coordinator Name Role Phone Unavailable Primary Care Provider Unavailabl e Encounter Details Date Type Department Care Team (Late st Contact Info) Description 11/05/2019 Transcribed Document [facility] [place] [facility] [place] [address] ProviderAgnieszka MD [address], [place] [id number] Social History Tobacco Use Types Packs/Day Years [...]
--- OUTSIDE RECORDS SUMMARY | 2025-07-14 12:39 | XMS_ITS | Encounter Summary ---
Author Organization [employer] ([place], [place], [place], [place], [place]) Address [address] [place] [address] Care Team Providers Care Life Claims Examiner Name Role Phone Unavailable Primary Care Provider Unavailabl e Encounter Details Date Type Department Care Team (Late st Contact Info) Description 11/04/2019 Transcribed Document [facility] [place] [facility] [place] [address] ProviderAgnieszka MD [address] [place], [place] [address] Social History Tobacco Use Types Packs/Day Years [...]
--- OUTSIDE RECORDS SUMMARY | 2025-07-14 12:39 | XMS_ITS | Encounter Summary ---
Author Organization [employer] ([place], [place], [place], [place], [place]) Address [address] [place] [address] Care Team Providers Care Interactive Video Technician Name Role Phone Unavailable Primary Care Provider Unavailabl e Encounter Details Date Type Department Care Team (Late st Contact Info) Description 11/04/2019 Transcribed Document [facility] [facility] [place] [address] ProviderAgnieszka MD [address] [place], [place] [address] Social History Tobacco Use Types Packs/Day Years Used Date Smoking Tobacco: Never Assessed Sex and Gender Information Value Date Recorded Sex Assigned at Not on file Legal Sex Male 2:38 PM CDT Gender Identity Not on file Sexual Orientation Not on file documented as of this encounter Miscellaneous Notes * Cerner Conversion Note - Agnieszka Centeno MD - 11/04/2019 4:42 PM CDT Patient: SIMBA [...] MiraLax: 17 Gram, Oral, Daily, PRN: Constipation [place] 10 mg-325 mg oral tablet: 1 Tab, [...] mL: 2 Gram, 100 mL/Hr, IV Piggyback, [id number] heparin: 5,000 Units, SubCutaneous, Q8H hydrALAZINE: 10 mg, IV Push, Q6H, PRN: Hypertension lactobacillus acidophilus: 1 Cap, Oral, Daily morphine: 2 mg, IV Push, Q2H, PRN: Pain (Severe 7-10) sodium chloride 0.9% injectable solution: 10 mL, IV Push, Q8H vancomycin + Sodium Chloride 0.9% intravenous solution 250 mL: 1,250 mg, 250 mL/Hr, IV Piggyback, [id number] Documented Medications Documented Azilect 1 mg oral tablet: 1 Tab, Oral, Daily, 30 Tab, 0 Refill(s) Remicade: 10 mg/kg, IntraVENous, L4Qachg, for Ulcerative Colitis; Last dose: 09/29/2019, 0 Refill(s) carbidopa-levodopa 25 mg-100 mg oral tablet: 1 Tab, Oral, QID, 120 Tab, 0 Refill(s) Physical Examination VS/Measurements Vitals Signs (last 24 hrs) Last Charted Minimum Maximum Temp 98.5 (NOV 03:31) 97.5 (NOV 03 10:37) 98.5 (NOV 02 22:25) Apical HR 100 (NOV 03 13:38) 100 (NOV 03 13:12) 100 (NOV 03 13:12) Mon HR 90 (NOV 03:31) 87 (NOV 02 22:25) 110 (NOV 03 06:36) Resp Rate 17 (NOV 03:) 17 (NOV 03:) 20 (NOV 02 22:25) SBP H 154 (NOV 03:) 134 (NOV 02 18:45) H 189 (NOV 03 05:17) DBP H 101 (NOV 03:31) 90 (NOV 02 18:45) H 112 (NOV 03:17) MAP 121 (NOV 03:) 102 (NOV 02 18:45) 131 (NOV 03 05:17) SpO2 96 (NOV 03:31) 96 (NOV 02 18:45) 98 (NOV 03 [...]
--- OUTSIDE RECORDS SUMMARY | 2025-07-14 12:39 | XMS_ITS | Encounter Summary ---
Author Organization [employer] ([place], [place], [place], [place], [place]) Address [address] [place] [address] Care Team Providers Care Business Management Manager Name Role Phone Unavailable Primary Care Provider Unavailabl e Encounter Details Date Type Department Care Team (Late st Contact Info) Description 11/03/2019 Transcribed Document [facility] [place] [facility] [address] ProviderAgnieszka MD [address] [place], [place] [address] Social History Tobacco Use Types Packs/Day Years Used Date Smoking Tobacco: Never Assessed Sex and Gender Information Value Date Recorded Sex Assigned at Not on file Legal Sex Male 2:38 PM CDT Gender Identity Not on file Sexual Orientation Not on file documented as of this encounter Miscellaneous Notes * Cerner Conversion Note - Agnieszka Centeno MD - 11/03/2019 9:17 AM CDT Patient: SIMBA [...] mL: 2 Gram, 100 mL/Hr, IV Piggyback, [id number] lactobacillus acidophilus: 1 Cap, Oral, Daily vancomycin + Sodium Chloride 0.9% intravenous solution 250 mL: 1,250 mg, 250 mL/Hr, IV Piggyback, [id number] Physical Examination VS/Measurements Vitals Signs (last 24 [...] EDT Height Source Stated Height Entry Format [place] Height/Length, [facility] (ft) 5 ft Height/Length [facility] 9 Inch CLINICALHEIGHT 175.26 cm [place] Body Weight 70 kg Weight Source Standing scale Weight Entry Format [place] Weight Afghan lb 178 lb Weight Afghan oz 6 oz CLINICALWEIGHT 81.08 kg Body Surface Area (BSA) 1.97 m2 Body Mass Index 26.4 kg/m2 HI 11/02/2019 0:47 EDT Height Source Stated Height Entry Format [place] Height/Length, [facility] (ft) 5 ft Height/Length [facility] 9 Inch CLINICALHEIGHT 175.26 cm [place] Body Weight 69.73 kg Weight Source, ED Critical estimated dosing weight Weight Entry Format [place] Weight [place] lb 205 lb CLINICALWEIGHT 93.18 kg Body [...] 02) 13.5 (NOV 01) HCT L 37.6 (APR 08) 43.0 (NOV 01) Plt 291 (NOV 02) [...]
--- OUTSIDE RECORDS SUMMARY | 2025-07-14 12:39 | XMS_ITS | Encounter Summary ---
Author Organization [employer] ([place], [place], [place], [place], [place]) Address [address] [place] [address] Care Team Providers Care Income Tax Auditor Name Role Phone Unavailable Primary Care Provider Unavailabl e Encounter Details Date Type Department Care Team (Late st Contact Info) Description 11/04/2019 Transcribed Document [facility] [place] [facility] [place] [address] ProviderAgnieszka MD [address] [place], [place] [address] Social History Tobacco Use Types Packs/Day Years Used Date Smoking Tobacco: Never Assessed Sex and Gender Information Value Date Recorded Sex Assigned at Not on file Legal Sex Male 2:38 PM CDT Gender Identity Not on file Sexual Orientation Not on file documented as of this encounter Miscellaneous Notes * Cerner Conversion Note - Historical ProviderMD - 11/04/2019 2:00 AM CDT Embroidery Specialist Details Entered On: 11/04/2019 4:42 EDT Performed On: 11/04/2019 2:00 EDT by [facility] Order Details Transport Mode Order Detail : Stretcher/Gurney Isolation Precautions Order Detail : Standard Precautions Order Detail : N/A IV Order Detail : 1 Oxygen Order Detail : 0 Nurse Collect Order Detail : 0 Lift/Transfer : Independent Central Line Order Detail : No Room Service : Not Appropriate Arterial Line : No [facility]ha [facility] - 11/04/2019 4:41 EDT documented in this encounter Plan of Treatment Not on file documented as of this encounter Visit Diagnoses Not on filedocumented in this encounter
--- OUTSIDE RECORDS SUMMARY | 2025-07-14 12:39 | XMS_ITS | Encounter Summary ---
Author Organization [employer] ([place], [place], [place], [place], [place]) Address [address] [place] [address] Care Team Providers Care Pattern Repair Person Name Role Phone Unavailable Primary Care Provider Unavailabl e Encounter Details Date Type Department Care Team (Late st Contact Info) Description 11/02/2019 Transcribed Document [facility] [place] [facility] [place] [address] ProviderAgnieszka MD [address] [place], [place] [id number] Social History Tobacco Use Types Packs/Day Years [...] : 3 - Urgent Tracking Group : [facility] ED Danelle Maya RN - 11/02/2019 [...] 11/02/2019 00:50:04 EDT) Problems(Active) Arthritis (SNOMED CT :6965230 ) Name of Problem: Arthritis ; Recorder: MILTON GAMEZ RN; Confirmation: Confirmed ; Classification: Medical ; Code: [id number] ; Contributor System: One2start ; Last Updated: 12/16/2018 11:30 EDT ; Life Cycle Date: 12/16/2018 ; Life Cycle Status: Active ; Vocabulary: SNOMED CT Colitis (SNOMED CT :5762793457 ) Name of Problem: Colitis ; Recorder: MILTON GAMEZ RN; Confirmation: Confirmed ; Classification: Medical ; Code: [id number] ; Contributor System: One2start ; Last Updated: 12/16/2018 11:30 EDT ; Life Cycle Date: 12/16/2018 ; Life Cycle Status: Active ; Vocabulary: SNOMED CT DJD (degenerative joint disease) of thoracic spine (SNOMED CT :7188408227 ) Name of Problem: DJD (degenerative joint disease) of thoracic spine ; Recorder: MILTON GAMEZ RN; Confirmation: Confirmed ; Classification: Medical ; Code: [id number] ; Contributor System: Lorena GaxiolaChart ; Last Updated: 12/16/2018 11:30 EDT ; Life Cycle Date: 12/16/2018 ; Life Cycle Status: Active ; Vocabulary: SNOMED CT History of obstructive sleep apnea (IMO :91343679 ) Name of Problem: History of obstructive sleep apnea ; Recorder: SYSTEM, SYSTEM; Confirmation: Confirmed ; Classification: Medical ; Code: [id number] ; Last Updated: 12/16/2018 11:47 EDT ; Life Cycle Date: 12/16/2018 ; Life Cycle Status: Active ; Vocabulary: IMO Parkinson disease (SNOMED CT :79580041 ) Name of Problem: Parkinson disease ; Recorder: MILTON GAMEZ RN; Confirmation: Confirmed ; Classification: Medical ; Code: 19725676 ; Contributor System: One2start ; Last Updated: 12/16/2018 11:28 EDT ; Life Cycle Date: 12/16/2018 ; Life Cycle Status: Active ; Vocabulary: SNOMED CT Scoliosis (SNOMED CT :736020319 ) Name of Problem: Scoliosis ; Recorder: MILTON GAMEZ RN; Confirmation: Confirmed ; Classification: Medical ; Code: 487775957 ; Contributor System: One2start ; Last Updated: 12/16/2018 11:29 EDT ; Life Cycle Date: 12/16/2018 ; Life Cycle Status: Active ; Vocabulary: SNOMED CT Diagnoses(Active) Back pain Date: 11/02/2019 ; Diagnosis Type: Reason For Visit ; Confirmation: Complaint of ; Clinical Dx: Back pain ; Classification: Medical ; Clinical Service: Non-Specified ; Code: PNED ; Probability: 0 ; Diagnosis Code: [id number] ED Height and Weight Height Source : Stated Height Entry Format : [place] Height, Feet : 5 ft(Converted to: 152 cm, 60 Inch) Height, Inches : 9 Inch(Converted to: 0 ft 9 Inch, 22.86 cm) Clinical Height : 175.26 cm Weight Source, ED : Critical estimated dosing weight Weight Entry Format : [place] Weight, Pounds : 205 lb Clinical Dosing Weight : 93.18 kg Body Surface Area (BSA) : 2.09 m2 Body Mass Index : 30.3 kg/m2 (HI) [place] Body Weight (IBW) : 69.73 kg Danelle Maya RN - 11/02/2019 0:47 EDT documented in this encounter Plan of Treatment Not on file documented as of this encounter Visit Diagnoses Not on filedocumented in this encounter
--- OUTSIDE RECORDS SUMMARY | 2025-07-14 12:39 | XMS_ITS | Encounter Summary ---
Author Organization [employer] ([place], [place], [place], [place], [place]) Address [address] [place] [address] Care Team Providers Care Room Service Associate Name Role Phone Unavailable Primary Care Provider Unavailabl e Encounter Details Date Type Department Care Team (Late st Contact Info) Description 11/03/2019 Transcribed Document [facility] [place] [facility] [place] [address] ProviderAgnieszka MD [address], [place] [id number] Social History Tobacco Use Types Packs/Day Years [...]
--- OUTSIDE RECORDS SUMMARY | 2025-07-14 12:39 | XMS_ITS | Encounter Summary ---
Author Organization [employer] ([place], [place], [place], [place], [place]) Address [address] [place] [address] Care Team Providers Care Engine Test Cell Technician Name Role Phone Unavailable Primary Care Provider Unavailabl e Encounter Details Date Type Department Care Team (Late st Contact Info) Description 11/05/2019 Transcribed Document [facility] [place] Family Medicine Counts include 234 beds at the [facility] [place] [address] ProviderAgnieszka MD [address] [place], [place] [address] Social History Tobacco Use Types Packs/Day Years [...] On: 11/09/2019 0:39 EDT by Radha Josue Flight Surgeon-Health Unit Coord Intervention Information: oxyCODONE Performed by Radha Josue Flight Surgeon-Health Unit Coord on 11/08/2019 23:39:00 EDT oxyCODONE,10mg Oral,Pain (Moderate 4-6) Pain Assessment Pain Assessment : Follow-up assessment Pain Scale Goal : 2 Pain Scale Used : 0-10 Scale Radha Josue Flight Surgeon-Health Unit Coord - 11/09/2019 4:50 EDT Pain Scale Intensity : 1 Radha Josue Flight Surgeon-Health Unit Coord - 11/09/2019 4:50 EDT Image 4 - Images currently included in the form version of this document have not been included in the text rendition version of the form. documented in this encounter Plan of Treatment Not on file documented as of this encounter Visit Diagnoses Not on filedocumented in this encounter
--- OUTSIDE RECORDS SUMMARY | 2025-07-14 12:39 | XMS_ITS | Encounter Summary ---
Author Organization [employer] ([place], [place], [place], [place], [place]) Address [address] [place] [address] Care Team Providers Care Product/Industry Consultant Name Role Phone Unavailable Primary Care Provider Unavailabl e Encounter Details Date Type Department Care Team (Late st Contact Info) Description 11/05/2019 Transcribed Document [facility] [place] Family Medicine [facility] [place] [address] ProviderAgnieszka MD [facility] [place] [id number] Social History Tobacco Use Types Packs/Day Years [...] : Yes Central Line Insertion Facility : [facility] Central Line Insertion Start Date/Time : 11/05/2019 15:37 EDT Central Catheter Type : Power injection PICC Central Line Lot Number : [id number] Central Line Vessel Cannulated : Median basilic [...] prepped/draped CL Time Out Additional Attendees : Sally Azevedo LPN, Beronica bae RN, Karoline Dee RN 1% Lidocaine Amt [...] Name : Sally Azevedo LPN KNAPP, RHONDA G PICC-RN - 11/05/2019 16:44 EDT documented in this encounter Plan of Treatment Not on file documented as of this encounter Visit Diagnoses Not on filedocumented in this encounter
--- OUTSIDE RECORDS SUMMARY | 2025-07-14 12:39 | XMS_ITS | Encounter Summary ---
Author Organization [employer] ([place], [place], [place], [place], [place]) Address [address] [place] [address] Care Team Providers Care Client Technical Support Associate Name Role Phone Unavailable Primary Care Provider Unavailabl e Encounter Details Date Type Department Care Team (Late st Contact Info) Description 11/04/2019 Transcribed Document [facility] [place] Family Medicine [facility] [place] [address] ProviderAgnieszka MD [address], [place] [id number] Social History Tobacco Use Types Packs/Day Years Used Date Smoking Tobacco: Never Assessed Sex and Gender Information Value Date Recorded Sex Assigned at Not on file Legal Sex Male 2:38 PM CDT Gender Identity Not on file Sexual Orientation Not on file documented as of this encounter Miscellaneous Notes * Cerner Conversion Note - Historical ProviderMD - 11/04/2019 11:16 AM CDT Patient: [...] Inj, Q8HInt, Routine, Start 11/02/19 4:00:00 EDT (TANIKA, VALDOHEMMID) Medications Azilect, 1 mg= 1 Tab, Oral, [...] mg= 1 mL, IV Push, Q2H, PRN [place] 10 mg-325 mg oral tablet, 1 Tab, [...] Appearance CLEAR2 11/03/2019 14:00 EDT Urine Specific [place] 1.027 11/03/2019 14:00 EDT Urine pH Dipstick [...] Trough 17.4 mcg/mL (High) 11/03/2019 20:19 EDT documented in this encounter Plan of Treatment Not on file documented as of this encounter Visit Diagnoses Not on filedocumented in this encounter
--- OUTSIDE RECORDS SUMMARY | 2025-07-14 12:39 | XMS_ITS | Referral Summary ---
Author Organization [employer] ([place], [place], [place], [place], [place]) Address [address] [place] [address] Care Team Providers Care Driver Messenger Name Role Phone Unavailable Primary Care Provider [...]
--- OUTSIDE RECORDS SUMMARY | 2025-07-14 12:39 | XMS_ITS | Encounter Summary ---
Author Organization [employer] ([place], [place], [place], [place], [place]) Address [address] [place] [address] Care Team Providers Care Er Manager Name Role Phone Unavailable Primary Care Provider Unavailabl e Encounter Details Date Type Department Care Team (Late st Contact Info) Description 11/05/2019 Transcribed Document [facility] [place] [facility] [place] [address] ProviderAgnieszka MD [address] [place], [place] [id number] Social History Tobacco Use Types Packs/Day Years [...]
--- OUTSIDE RECORDS SUMMARY | 2025-07-14 12:39 | XMS_ITS | Encounter Summary ---
Author Organization [employer] ([place], [place], [place], [place], [place]) Address [address] [place] [address] Care Team Providers Care Regional Refrigerated Cdl Truck Driver Name Role Phone Unavailable Primary Care Provider Unavailabl e Encounter Details Date Type Department Care Team (Late st Contact Info) Description 11/05/2019 Transcribed Document [facility] [place] Family Medicine [address] [place] [address] ProviderAgnieszka MD [address] [place], [place] [address] Social History Tobacco Use Types Packs/Day Years Used Date Smoking Tobacco: Never Assessed Sex and Gender Information Value Date Recorded Sex Assigned at Not on file Legal Sex Male 2:38 PM CDT Gender Identity Not on file Sexual Orientation Not on file documented as of this encounter Miscellaneous Notes * Cerner Conversion Note - Historical ProviderMD - 11/05/2019 9:27 AM CDT [facility] Main OR Preop Summary Primary Physician: HEIDE KAT MD-U Finalized Date/Time: 11/05/19 12:33:22 Pt. Name: SIMBA MAYEN JR/Sex: 1950 Male Med Rec #: [id number] Physician: LORENA SAGASTUME MD-INT Financial #: [id number] Pt. Type: I Room/Bed: [facility]/ Admit/Disch: 11/02/19 02:59:00 - Institution: [facility] PreOp Case Times Entry 1 In Preop 11/05/19 06:54:00 Ready for Holding n/a Room Patient Ready for 11/05/19 07:32:00 Surgery Patient Out of Preop 11/05/19 08:23:00 Patient Out of n/a Holding Room Last Modified By: Danelle Parekh Nurse Television News Producer 11/05/19 12:33:18 [facility] PreOp Case Times Audit 11/05/19 12:33:18 Surgical Appliance Fitter: ASHKAN Modifier: [id number] <+> 1 Patient Out of Preop Finalized By: Danelle Parekh, Nurse Rn Hemo Dialysis Signatures Signed By: Danelle Parekh Nurse Television News Producer 11/05/19 12:33 Electronically signed by Taryn [facility] Conversion Fire Safety Manager Cerner at 11/12/2022 9:36 PM CDT documented in this encounter Plan of Treatment Not on file documented as of this encounter Visit Diagnoses Not on filedocumented in this encounter
--- OUTSIDE RECORDS SUMMARY | 2025-07-14 12:39 | XMS_ITS | Encounter Summary ---
Author Organization [employer] ([place], [place], [place], [place], [place]) Address [address] [place] [address] Care Team Providers Care Propulsion Generator Repairer Name Role Phone Unavailable Primary Care Provider Unavailabl e Encounter Details Date Type Department Care Team (Late st Contact Info) Description 11/03/2019 Transcribed Document [facility] [place] [facility] [place] [address] ProviderAgnieszka MD [address], [place] [id number] Social History Tobacco Use Types Packs/Day Years [...] On: 11/03/2019 14:32 EDT by ELKE VELÁZQUEZ, Clam Sorter-Film Splicer Care Management Progress Note Discharge Arrangements : [...] Attend Multidisciplinary Rounds? : No ELKE VELÁZQUEZ, Clam Sorter-Film Splicer - 11/03/2019 14:32 EDT Narrative Progress Note Narrative Progress Note : Patient is scheduled for an MRI on and surgery on Friday. He reported wanting to go to [facility]. Cm sent referral packet to [facility]. ELKE VELÁZQUEZ Clam Sorter-Film Splicer - 11/03/2019 14:32 EDT documented in this encounter Plan of Treatment Not on file documented as of this encounter Visit Diagnoses Not on filedocumented in this encounter
--- OUTSIDE RECORDS SUMMARY | 2025-07-14 12:39 | XMS_ITS | Encounter Summary ---
Author Organization [employer] ([place], [place], [place], [place], [place]) Address [address] [place] [address] Care Team Providers Care Investment Director Name Role Phone Unavailable Primary Care Provider Unavailabl e Encounter Details Date Type Department Care Team (Late st Contact Info) Description 11/03/2019 Transcribed Document [facility] [place] [facility] [place] [address] ProviderAgnieszka MD [address] [place], [place] [id number] Social History Tobacco Use Types Packs/Day Years Used Date Smoking Tobacco: Never Assessed Sex and Gender Information Value Date Recorded Sex Assigned at Not on file Legal Sex Male 2:38 PM CDT Gender Identity Not on file Sexual Orientation Not on file documented as of this encounter Miscellaneous Notes * Cerner Conversion Note - Historical ProviderMD - 11/03/2019 2:41 PM CDT UM Authorization Entered On: 11/03/2019 14:42 EDT Performed On: 11/03/2019 14:41 EDT by OC PRINCE Rubber Mixer Primary Insurance Authorization Authorization and Policy Numbers : Insurance 1 Health Plan: MEDICARE Policy Number: [id number] Authorization Number: Insurance 2 Health Plan: [employer] Policy Number: [id number] Authorization Number: Insurance Primary Name : MEDICARE Policy Number: [id number] Authorized Service Begin Date-Primary : 11/02/2019 EDT Authorization Comments-Primary : patient is scheduled for Lumbar Fusion Posterior on 11/05/2019 Pt is currently admitted as an inpt already on 4A. Historical Authorization Comments-Primary : No Authorization Comments Found OC PRINCE, Rubber Mixer - 11/03/2019 14:41 EDT Electronically signed by Taryn [facility] Conversion Manual Control Auger Press Operator Cerner at 11/12/2022 9:36 PM CDT documented in this encounter Plan of Treatment Not on file documented as of this encounter Visit Diagnoses Not on filedocumented in this encounter
--- OUTSIDE RECORDS SUMMARY | 2025-07-14 12:39 | XMS_ITS | Encounter Summary ---
Author Organization [employer] ([place], [place], [place], [place], [place]) Address [address] [place] [address] Care Team Providers Care End Frazer Name Role Phone Unavailable Primary Care Provider Unavailabl e Encounter Details Date Type Department Care Team (Late st Contact Info) Description 11/03/2019 Transcribed Document [facility] [place] [facility] [place] [address] ProviderAgnieszka MD [address] [place], [place] [id number] Social History Tobacco Use Types Packs/Day Years [...] Insurance 1 Health Plan: MEDICARE Policy Number: [id number] Authorization Number: Insurance 2 Health Plan: [employer] LIFE Policy Number: [id number] Authorization Number: Insurance Primary Name : MEDICARE Policy Number: [id number] Authorized Service Begin Date-Primary : 11/02/2019 EDT Historical Authorization Comments-Primary : No Authorization Comments Found SIMÓN MUSA RN - 11/03/2019 12:44 EDT documented in this encounter Plan of Treatment Not on file documented as of this encounter Visit Diagnoses Not on filedocumented in this encounter
--- OUTSIDE RECORDS SUMMARY | 2025-07-14 12:39 | XMS_ITS | Encounter Summary ---
Author Organization [employer] ([place], [place], [place], [place], [place]) Address [address] [place] [address] Care Team Providers Care Locomotive Observer Name Role Phone Unavailable Primary Care Provider Unavailabl e Encounter Details Date Type Department Care Team (Late st Contact Info) Description 11/05/2019 Transcribed Document [facility] [place] [facility] [place] [address] ProviderAgnieszka MD [address], [place] [id number] Social History Tobacco Use Types Packs/Day Years Used Date Smoking Tobacco: Never Assessed Sex and Gender Information Value Date Recorded Sex Assigned at Not on file Legal Sex Male 2:38 PM CDT Gender Identity Not on file Sexual Orientation Not on file documented as of this encounter Miscellaneous Notes * Cerner Conversion Note - Historical ProviderMD - 11/05/2019 2:00 AM CDT Collar Setter Details Entered On: 11/05/2019 5:20 EDT Performed [...]
--- OUTSIDE RECORDS SUMMARY | 2025-07-14 12:39 | XMS_ITS | Encounter Summary ---
Author Organization [employer] ([place], [place], [place], [place], [place]) Address [address] [place] [address] Care Team Providers Care Freight Solicitor Name Role Phone Unavailable Primary Care Provider Unavailabl e Encounter Details Date Type Department Care Team (Late st Contact Info) Description 11/05/2019 Transcribed Document [facility] [place] Family Medicine [address] [place] [address] ProviderAgnieszka MD [address], [place] [address] Social History Tobacco Use Types Packs/Day Years Used Date Smoking Tobacco: Never Assessed Sex and Gender Information Value Date Recorded Sex Assigned at Not on file Legal Sex Male 2:38 PM CDT Gender Identity Not on file Sexual Orientation Not on file documented as of this encounter Miscellaneous Notes * Cerner Conversion Note - Historical ProviderMD - 11/05/2019 9:27 AM CDT [facility] Main OR PACU Summary Primary Physician: HEIDE KAT MD-U Finalized Date/Time: 11/05/19 13:46:04 Pt. Name: SIMBA MAYEN JR/Sex: 1950 Male Med Rec #: [id number] Physician: LORENA SAGASTUME MD-INT Financial #: [id number] Pt. Type: I Room/Bed: [facility]/ Admit/Disch: 11/02/19 02:59:00 - Institution: [facility] Main OR PACU I Case Times Entry 1 In PACU I 11/05/19 12:11:00 Ready for PACU 11/05/19 13:40:00 Discharge Discharge from PACU 11/05/19 13:40:00 I Last Modified By: Danelle Fam RN 11/05/19 13:44:22 Finalized By: Danelle Fam, RN Document Signatures Signed By: Danelle Fam RN 11/05/19 13:46 Electronically signed by Taryn [facility] Conversion Filament Cutter Cerner at 11/12/2022 9:32 PM CDT documented in this encounter Plan of Treatment Not on file documented as of this encounter Visit Diagnoses Not on filedocumented in this encounter
--- OUTSIDE RECORDS SUMMARY | 2025-07-14 12:39 | XMS_ITS | Encounter Summary ---
Author Organization [employer] ([place], [place], [place], [place], [place]) Address [address] [place] [address] Care Team Providers Care Clinical Services Director Name Role Phone Unavailable Primary Care Provider Unavailabl e Encounter Details Date Type Department Care Team (Late st Contact Info) Description 11/08/2019 Transcribed Document [facility] [place] [address] [place] [address] ProviderAgnieszka MD [address], [place] [id number] Social History Tobacco Use Types Packs/Day Years [...]
--- OUTSIDE RECORDS SUMMARY | 2025-07-14 12:40 | XMS_ITS | Encounter Summary ---
Author Organization [employer] ([place], [place], [place], [place], [place]) Address [address] [place] [address] Care Team Providers Care Hydroelectric Plant Technician Name Role Phone Unavailable Primary Care Provider Unavailabl e Encounter Details Date Type Department Care Team (Late st Contact Info) Description 11/02/2019 Transcribed Document [facility] [place] [facility] [place] [address] ProviderAgnieszka MD [address] [place], [place] [address] Social History Tobacco Use Types Packs/Day Years [...] On: 11/02/2019 12:45 EDT by ELKE VELÁZQUEZ Urogynaecologist-Forms Builder Initial Assessment I Previously Documented Living Environment : No qualifying data available. Living Situation : Home Patient Lives With : Spouse Is the Patient a Caregiver at Home? : No Employment/Vocation : Retired Emergency Contact #1 : Marlys Mason Emergency Contact #1 Emergency Contact #1 Relationship : Emergency Contact #2 : Lexii Mason Emergency Contact #2 Phone Number : [phone] Emergency Contact #2 Relationship : Mother Enter Doctors Name : Dr. Faustino Jones Does Patient have PCP Listed? : Yes Legal Guardian : No Is Guardianship Needed : No ELKE VELÁZQUEZ Urogynaecologist-Forms Builder - 11/02/2019 12:45 EDT Initial Assessment II Sensory and Motor Deficits : Other: Parkinson's Current Home Treatments and Equipment : None ELKE VELÁZQUEZ Urogynaecologist-Forms Builder - 11/02/2019 12:45 EDT Discharge Needs I Anticipated Discharge To, CM : Home independently Current Home Treatment/Equipment : Current Home Treatment/Equipment No qualifying data available. Post Acute/Home Treatments : None Documentation Status Complete : Yes ELKE VELÁZQUEZ Urogynaecologist-Forms Builder - 11/02/2019 12:45 EDT Discharge Needs II Professional Skilled Services : Professional Skilled Services No qualifying data available. Needs Assistance with Transportation : No Discharge Options Discussed with Patient : Acute rehabilitation, Discharge transportation, DME, Home Health, Short term rehabilitation ELKE VELÁZQUEZ Urogynaecologist-Forms Builder - 11/02/2019 12:45 EDT Narrative Note Narrative Note : Patient is a low readmission risk of 34. Patient reported that he has HH in the past through [facility]. Patient reported that he has also been to [facility] in the past. Both of these services were last November. Patient stated that he is ADL independent. He stated that his can transport him home. Patient denied expecting to need any services at discharge. CM will continue to follow. ELKE VELÁZQUEZ Urogynaecologist-Forms Builder - 11/02/2019 12:45 EDT documented in this encounter Plan of Treatment Not on file documented as of this encounter Visit Diagnoses Not on filedocumented in this encounter
--- OUTSIDE RECORDS SUMMARY | 2025-07-14 12:40 | XMS_ITS | Encounter Summary ---
Author Organization [employer] ([place], [place], [place], [place], [place]) Address [address] [place] [address] Care Team Providers Care Biological Aide Name Role Phone Unavailable Primary Care Provider Unavailabl e Encounter Details Date Type Department Care Team (Late st Contact Info) Description 12/23/2018 Transcribed Document [facility] [place] [facility] [place] [address] ProviderAgnieszka MD [address], [place] [id number] Social History Tobacco Use Types Packs/Day Years [...] : 12/22/2018 06:36 Co-treated by, OT : special event assistant (FOOD SERVICE SALES REPRESENTATIVES) Personal Devices : Personal Devices No Devices [...] MARY MULLER OTR/Lc - 12/24/2018 15:34 EDT Assistant Professor Of Art Goals, OT Grooming LTG Grid Goal #1 [...] or set up Equipment : Long Handled Cull Grader, Sock aid, Long handled shoehorn Date to [...] MARY MULLER OTR/Lc - 12/24/2018 15:34 EDT Other LTG Grid [...] MARY MULLER OTR/Lc - 12/24/2018 15:34 EDT [employer] OT Charges OT Selfcare/Hm Mgmt Ea 15 Min : 2 MARY MULLER OTR/Lc - 12/24/2018 15:34 EDT documented in this encounter Plan of Treatment Not on file documented as of this encounter Visit Diagnoses Not on filedocumented in this encounter
--- OUTSIDE RECORDS SUMMARY | 2025-07-14 12:40 | XMS_ITS | Encounter Summary ---
Author Organization [employer] ([place], [place], [place], [place], [place]) Address [address] [place] [address] Care Team Providers Care Senior Science Consultant Name Role Phone Unavailable Primary Care Provider Unavailabl e Encounter Details Date Type Department Care Team (Late st Contact Info) Description 11/06/2019 Transcribed Document [facility] Family Medicine [facility] [place] [address] ProviderAgnieszka MD [address] [place], [place] [address] Social History Tobacco Use Types Packs/Day Years [...]
--- OUTSIDE RECORDS SUMMARY | 2025-07-14 12:40 | XMS_ITS | Encounter Summary ---
Author Organization [employer] ([place], [place], [place], [place], [place]) Address [address] [place] [address] Care Team Providers Care Industrial Economics Teacher Name Role Phone Unavailable Primary Care Provider Unavailabl e Encounter Details Date Type Department Care Team (Late st Contact Info) Description 11/02/2019 Transcribed Document [facility] [place] [facility] [place] [address] ProviderAgnieszka MD [address] [place], [place] [address] Social History Tobacco Use Types Packs/Day Years [...] Taylor RN Intervention Information: morphine Performed by eZe Taylor RN on 11/02/2019 15:00:00 EDT morphine,2mg IV Push,Peripheral Line 1 Pain Assessment Pain Scale Goal : 4 Pain Improved by Intervention : Yes Zee Taylor RN - 11/02/2019 17:14 EDT documented in this encounter Plan of Treatment Not on file documented as of this encounter Visit Diagnoses Not on filedocumented in this encounter
--- OUTSIDE RECORDS SUMMARY | 2025-07-14 12:40 | XMS_ITS | Encounter Summary ---
Author Organization [employer] ([place], [place], [place], [place], [place]) Address [address] [place] [address] Care Team Providers Care Client Architect Name Role Phone Unavailable Primary Care Provider Unavailabl e Encounter Details Date Type Department Care Team (Late st Contact Info) Description 11/07/2019 Transcribed Document [facility] Radiology [address] [place] [address] Carlo Evans MD [address] [place], [place] [id number] Social History Tobacco Use Types Packs/Day Years [...] pain, and dysuria. ID and NSY following. 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 Vital Signs T: [...] acute distress]. Neurologic: [CN I-XII intact, Equal manager corporate communications strength bilaterally, no movement or feeling in [...] Vanc, PICC ordered 11/04 in prep for half-way abx -Patient hemodynamically stable, afebrile though low [...] to be followed. PICC in place, needs disability hearing officer abx recs prior to discharge. Thyroid US [...] Diagnostic Results Radiology Results (Last 48 hours) [id number] -- 11/02/2019 02:59 MRI Spine Thoracic WO [...] of thisdictation.Images reviewed, interpreted, and dictated by Hamzah Shah MD Lab Results Test Name Test Result [...] Lymph # 1.76 x10(3)/uL 11/07/2019 04:00 EDT [place] % 14.8 % (High) 11/07/2019 04:00 EDT [place] # 1.07 K/uL (High) 11/07/2019 04:00 EDT [...]
--- OUTSIDE RECORDS SUMMARY | 2025-07-14 12:40 | XMS_ITS | Encounter Summary ---
Author Organization [employer] ([place], [place], [place], [place], [place]) Address [address] [place] [address] Care Team Providers Care Sterile Instrument Technician Name Role Phone Unavailable Primary Care Provider Unavailabl e Encounter Details Date Type Department Care Team (Late st Contact Info) Description 11/02/[address] [facility] [place] [facility] [place] [address] ProviderAgnieszka MD [address] [place], [place] [phone] Social History Tobacco Use Types Packs/Day Years [...] 3:36 EDT Emergency Contact #1 - jacqui, cell. DUANE CHUN RN - 11/03/2019 15:46 EDT Emergency Contact #1 Relationship : Emergency Contact #2 : Lexii Cuevas Emergency Contact #2 Phone Number : [phone] Emergency Contact #2 Relationship : Mother Chief Complaint : presents w/ lower and upper back spasms x 3-4 days Information Obtained From : Patient Primary Language : Khmer Communication Barrier : None Joyce Melendez RN [...] Scale Risk Level : 25-45 Medium Risk [place] Fall Interventions : Adequate lighting, Assistive devices [...] Source : Stated Height Entry Format : [place] Height, Feet : 5 ft(Converted to: 152 cm, 60 Inch) Height, Inches : 9 Inch(Converted to: 0 ft 9 Inch, 22.86 cm) Clinical Height : 175.26 cm Weight Source : Standing scale Weight Entry Format : [place] Clinical Dosing Weight : 81.08 kg Weight, Pounds : 178 lb Weight, Ounces : 6 oz Body Surface Area (BSA) : 1.97 m2 Body Mass Index : 26.4 kg/m2 (HI) [place] Body Weight : 70 kg Joyce Melendez [...] Joyce Melendez RN - 11/02/2019 3:36 EDT [place] Suicide Severity Rating Scale (C-SSRS) CSSRS Past [...] Electronically signed by Gay Centeno Conversion Director Patient Financial Services Cerner at 11/12/2022 9:55 PM CDT documented in this encounter Plan of Treatment Not on file documented as of this encounter Visit Diagnoses Not on filedocumented in this encounter
--- OUTSIDE RECORDS SUMMARY | 2025-07-14 12:40 | XMS_ITS | Encounter Summary ---
Author Organization [employer] ([place], [place], [place], [place], [place]) Address [address] [place] [address] Care Team Providers Care Assistant Golf Professional Name Role Phone Unavailable Primary Care Provider Unavailabl e Encounter Details Date Type Department Care Team (Late st Contact Info) Description 11/07/2019 Transcribed Document [facility] [place] [facility] [place] [address] ProviderAgnieszka MD [address] [place], [place] [address] Social History Tobacco Use Types Packs/Day Years [...] EDT Electronically signed by Gay Centeno Conversion Application Packaging Specialist Cerner at 11/12/2022 9:38 PM CDT documented in this encounter Plan of Treatment Not on file documented as of this encounter Visit Diagnoses Not on filedocumented in this encounter
--- OUTSIDE RECORDS SUMMARY | 2025-07-14 12:40 | XMS_ITS | Encounter Summary ---
Author Organization [employer] ([place], [place], [place], [place], [place]) Address [address] [place] [address] Care Team Providers Care Destination Imagination Coordinator Name Role Phone Unavailable Primary Care Provider Unavailabl e Encounter Details Date Type Department Care Team (Late st Contact Info) Description 12/22/2018 Transcribed Document [facility] [place] [facility] [place] [address] ProviderAgnieszka MD [address], [place] [id number] Social History Tobacco Use Types Packs/Day Years [...] #2 Relationship : , Primary Language : Malay Communication Barrier : None Melissa Alexander RN [...] Scale Risk Level : 25-45 Medium Risk [place] Fall Interventions : Adequate lighting, Assistive devices [...] days) Smokeless Tobacco Status : Never Melissa Aleaxnder RN - 12/22/2018 20:45 EDT Social History [...] Source : Measured Height Entry Format : [place] Height, Feet : 5 ft(Converted to: 152 cm, 60 Inch) Height, Inches : 9 Inch(Converted to: 0 ft 9 Inch, 22.86 cm) Clinical Height : 175.26 cm Weight Source : Standing scale Weight Entry Format : [place] Clinical Dosing Weight : 84.55 kg Weight, Pounds : 186 lb Body Surface Area (BSA) : 2 m2 Body Mass Index : 27.5 kg/m2 (HI) [place] Body Weight : 70 kg Melissa Alexander [...] Melissa Alexander RN - 12/22/2018 20:45 EDT Electronically signed by Gay Centeno Conversion Associate Professor Of Archaeology Cerner at 11/12/2022 9:56 PM CDT documented in this encounter Plan of Treatment Not on file documented as of this encounter Visit Diagnoses Not on filedocumented in this encounter
--- OUTSIDE RECORDS SUMMARY | 2025-07-14 12:40 | XMS_ITS | Encounter Summary ---
Author Organization [employer] ([place], [place], [place], [place], [place]) Address [address] [place] [address] Care Team Providers Care Doper Name Role Phone Unavailable Primary Care Provider Unavailabl e Encounter Details Date Type Department Care Team (Late st Contact Info) Description 11/06/2019 Transcribed Document [facility] [place] [facility] [place] [address] ProviderAgnieszka MD [address] [place], [place] [address] Social History Tobacco Use Types Packs/Day Years [...] mL: 2 Gram, 200 mL/Hr, IV Piggyback, [id number] docusate sodium: 200 mg, Oral, BID fentaNYL: [...] mL: 1,250 mg, 250 mL/Hr, IV Piggyback, P25PCdr Pending Complete fentaNYL: 25 mcg, IV Push, Q10Min Documented Medications Documented Azilect 1 mg oral tablet: 1 Tab, Oral, Daily, 30 Tab, 0 Refill(s) Remicade: 10 mg/kg, IntraVENous, [id number], for Ulcerative Colitis; Last dose: 09/29/2019, 0 [...] *MBP* 100 mL 2 Gram, IV Piggyback, P02DGoh docusate sodium 100 mg cap 200 mg 2 Cap, Oral, BID lactobacillus acidophilus cap 1 Cap, Oral, Daily rasagiline 1 mg tab 1 mg 1 Tab, Oral, Daily vancomycin + NaCl 0.9% 250 mL 1,250 mg, IV Piggyback, V10EUor Continuous: (1) lactated ringers 1,000 mL 1,000 [...] All Problems Parkinson disease / SNOMED CT 60109546 / Confirmed Scoliosis / SNOMED CT 249859828 / Confirmed Colitis / SNOMED CT 2901214567 / Confirmed Arthritis / SNOMED CT 4679548 / Confirmed 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 Alyssa ODNATO DC documented in this encounter Plan of Treatment Not on file documented as of this encounter Visit Diagnoses Not on filedocumented in this encounter
--- OUTSIDE RECORDS SUMMARY | 2025-07-14 12:40 | XMS_ITS | Encounter Summary ---
Author Organization [employer] ([place], [place], [place], [place], [place]) Address [address] [place] [place] [address] Care Team Providers Care Weatherization Installer Name Role Phone Unavailable Primary Care Provider Unavailabl e Encounter Details Date Type Department Care Team (Late st Contact Info) Description 11/07/2019 Transcribed Document [facility] Neurology - [address] [place] [address] Heide Akers MD [address] [place] [address] [address] [place] [address] Social History Tobacco Use Types [...]
--- OUTSIDE RECORDS SUMMARY | 2025-07-14 12:40 | XMS_ITS | Encounter Summary ---
Author Organization [facility] [facility] ([place], [place], [place], [place], [place]) Address [address] [place] [address] Care Team Providers Care Rotor Winder Name Role Phone Unavailable Primary Care Provider Unavailabl e Encounter Details Date Type Department Care Team (Late st Contact Info) Description 11/07/[address] [facility] [place] Family Medicine [facility] [place] [address] ProviderAgnieszka MD [address] [place], [place] [address] Social History Tobacco Use Types Packs/Day Years [...]
--- OUTSIDE RECORDS SUMMARY | 2025-07-14 12:40 | XMS_ITS | Encounter Summary ---
Author Organization [employer] ([place], [place], [place], [place], [place]) Address [address] [place] [address] Care Team Providers Care Meal Miller Name Role Phone Unavailable Primary Care Provider Unavailabl e Encounter Details Date Type Department Care Team (Late st Contact Info) Description 12/23/2018 Transcribed Document [facility] [place] [facility] [place] [address] ProviderAgnieszka MD [address] [place], [place] [id number] Social History Tobacco Use Types Packs/Day Years [...] form. Electronically signed by Gay Centeno Conversion Photographic Equipment Inspector Cerner at 11/12/2022 9:33 PM CDT documented in this encounter Plan of Treatment Not on file documented as of this encounter Visit Diagnoses Not on filedocumented in this encounter
--- OUTSIDE RECORDS SUMMARY | 2025-07-14 12:40 | XMS_ITS | Encounter Summary ---
Author Organization [employer] ([place], [place], [place], [place], [place]) Address [address] [place] [address] Care Team Providers Care Electronic Equipment Repairmen Name Role Phone Unavailable Primary Care Provider Unavailabl e Encounter Details Date Type Department Care Team (Late st Contact Info) Description 11/07/2019 Transcribed Document [facility] [place] [facility] [place] [address] ProviderAgnieszka MD [address], [place] [address] Social History Tobacco Use Types Packs/Day Years Used Date Smoking Tobacco: Never Assessed Sex and Gender Information Value Date Recorded Sex Assigned at Not on file Legal Sex Male 2:38 PM CDT Gender Identity Not on file Sexual Orientation Not on file documented as of this encounter Miscellaneous Notes * Cerner Conversion Note - Agnieszka Centeno MD - 11/07/2019 10:36 AM CDT Patient: SIMBA [...] mL: 2 Gram, 200 mL/Hr, IV Piggyback, R55QRal docusate sodium: 200 mg, Oral, BID hydrALAZINE: [...] mL: 1,250 mg, 250 mL/Hr, IV Piggyback, [id number] Pending Complete fentaNYL: 25 mcg, IV Push, Q10Min Documented Medications Documented Azilect 1 mg oral tablet: 1 Tab, Oral, Daily, 30 Tab, 0 Refill(s) Remicade: 10 mg/kg, IntraVENous, Q7Nwgao, for Ulcerative Colitis; Last dose: 09/29/2019, 0 [...] *MBP* 100 mL 2 Gram, IV Piggyback, R63DHdh docusate sodium 100 mg cap 200 mg 2 Cap, Oral, BID lactobacillus acidophilus cap 1 Cap, Oral, Daily rasagiline 1 mg tab 1 mg 1 Tab, Oral, Daily vancomycin + NaCl 0.9% 250 mL 1,250 mg, IV Piggyback, Z27QVzx Continuous: (1) lactated ringers 1,000 mL 1,000 [...] All Problems Parkinson disease / SNOMED CT 57754800 / Confirmed Scoliosis / SNOMED CT 465241318 / Confirmed Colitis / SNOMED CT 6302313680 / Confirmed Arthritis / SNOMED CT 9059027 / Confirmed DJD (degenerative joint disease) of thoracic spine / SNOMED CT 5057416332 / Confirmed History of obstructive sleep apnea / IMO [id number] / Confirmed, Active Problems (6) Arthritis Colitis [...] 05) 7.5 (NOV 04) 6.5 (NOV 02) HB L 9.4 (NOV 06) L 11.7 (NOV 05) 14.7 (OCT 10) L 12.2 (NOV 02) HCT L 28.9 (NOV 06) L 36.4 [...] (OCT 10) 8.8 (OCT 08) Lactic 1.3 (NOV 01) PT 11.3 (OCT [...] Dr. Alyssa DONATO DC Electronically signed by [facility] Conversion Communication Manager Malloryner at 11/12/2022 9:35 PM CDT documented in this encounter Plan of Treatment Not on file documented as of this encounter Visit Diagnoses Not on filedocumented in this encounter
--- OUTSIDE RECORDS SUMMARY | 2025-07-14 12:40 | XMS_ITS | Encounter Summary ---
Author Organization [employer] ([place], [place], [place], [place], [place]) Address [address] [place] [address] Care Team Providers Care Back Roll Lathe Operator Name Role Phone Unavailable Primary Care Provider Unavaillora e Encounter Details Date Type Department Care Team (Late st Contact Info) Description 12/22/2018 Transcribed Document [facility] [place] [facility] [place] [address] ProviderAgnieszka MD [address], [place] [address] Social History Tobacco Use Types Packs/Day Years [...] and Treatme Ordered By: HEIDE KAT MD-SNU Active Diagnoses : No Qualifying Diagnoses Therapy [...] 68 yo male who was admitted to [facility] on 12/22 for radiculopathy. s/p L2-S1 laminectomy, [...] within reach RN/PCT Informed Comment : MY Torrez'brodie Treatment End Time : 12/23/2018 10:48 EDT [...] [CHRISSIE FALK, OTR/L 12/23/2018 11:03 EDT] ) Stand to Sit : Rehab Minimal assistance (Comment: x2 [CHRISSIE FALK, OTR/L 12/23/2018 11:03 EDT] ) CHRISSIE FALK, OTR/L 12/23/2018 11:03 EDT Sit to Stand Device : Belt, gait, Walker, front wheel Stand to Sit Device : Belt, gait, Walker, front wheel CHRISSIE FALK, OTR/L 12/23/2018 11:03 EDT Cognition Assessment, OT Orientation : Oriented x 4 Cognition Assessment, OT : Intact Comprehension Assessment, OT : Intact ALBERTOTHUCHRISSIE TAVERAS, OTR/L 12/23/2018 11:03 EDT Education OT Occupational Therapy Education Grid Activity of Daily Living Training : Needs further teaching Functional Mobility Training : Needs further teaching Role of Occupational Therapy : Verbalizes understanding RADHADARCYCHRISSIE OTR/L 12/23/2018 11:03 EDT Teaching/Learning Assessment Barriers To Learning : None evident Individuals Taught : Patient Readiness to Learn : Cooperative Readiness to Learn : Explanation Learning Style Preferences Patient : None DILEEPCHRISSIEMARTINR/L 12/23/2018 11:03 EDT Indication Assessment, OT Occupational Therapy Indicated : Yes Problem List, OT : Impaired, bed mobility, Impaired, activities daily living, Impaired, endurance tolerance, Impaired functional mobility, Impaired, standing balance, Impaired, strength, Impaired, transfers Potential Barriers, OT : None evident Rehabilitation Potential, OT : Good CHRISSIE FALK, OTR/L - 12/23/2018 11:03 EDT Plan of Care, OT OT Tx Plan/Goals Established w Patient : Yes OT Frequency Rehab : Five days per week OT Duration Rehab : Fourteen days OT Treatments Planned : Activities of daily living, Balance training, Functional mobility training, Safety education, Therapeutic activities, Therapeutic exercises CHRISSIE FALK OTR/L - 12/23/2018 11:03 EDT Jail Goals, OT Grooming LTG Grid Goal #1 [...] or set up Equipment : Long Handled Global Commodity Manager, Sock aid, Long handled shoehorn Date to [...] : Initial goal Initial goal CHRISSIE FALK OTCharlee/Lc - 12/23/2018 11:03 EDT CHRISSIE FALK OTCharlee/Lc - 12/23/2018 11:03 EDT Treatment Note Subjective [...] Continued Therapy at Discharge : Yes CHRISSIE FALK SASCHA/Lc - 12/23/2018 11:[address] [facility] OT Charges OT Ther Activities Ea 15 Min : 1 OT Eval Moderate Complexity : 1 CHRISSIE FALKSASCHA/Lc - 12/23/2018 11:03 EDT documented in this encounter Plan of Treatment Not on file documented as of this encounter Visit Diagnoses Not on filedocumented in this encounter
--- OUTSIDE RECORDS SUMMARY | 2025-07-14 12:40 | XMS_ITS | Encounter Summary ---
Author Organization [id number] ([place], [place], [place], [place], [place]) Address [address] [place] [address] Care Team Providers Care Grain Handler Name Role Phone Unavailable Primary Care Provider Unavailabl e Encounter Details Date Type Department Care Team (Late st Contact Info) Description 11/07/2019 Transcribed Document [facility] [place] [facility] [place] [address] ProviderAngieszka MD [address] [place], [place] [id number] Social History Tobacco Use Types Packs/Day Years [...]
--- OUTSIDE RECORDS SUMMARY | 2025-07-14 12:40 | XMS_ITS | Encounter Summary ---
Author Organization [employer] ([place], [place], [place], [place], [place]) Address [address] [place] [address] Care Team Providers Care Antique Refinisher Name Role Phone Unavailable Primary Care Provider Unavailabl e Encounter Details Date Type Department Care Team (Late st Contact Info) Description 11/03/2019 Transcribed Document [facility] [place] [facility] [place] [address] ProviderAgnieszka MD [address], [place] [id number] Social History Tobacco Use Types Packs/Day Years Used Date Smoking Tobacco: Never Assessed Sex and Gender Information Value Date Recorded Sex Assigned at Not on file Legal Sex Male 2:38 PM CDT Gender Identity Not on file Sexual Orientation Not on file documented as of this encounter Miscellaneous Notes * Cerner Conversion Note - Historical ProviderMD - 11/03/2019 2:00 AM CDT Investigator Operator Details Entered On: 11/03/2019 0:41 EDT [...]
--- OUTSIDE RECORDS SUMMARY | 2025-07-14 12:40 | XMS_ITS | Encounter Summary ---
Author Organization [employer] ([place], [place], [place], [place], [place]) Address [address] [place] [address] Care Team Providers Care Laboratory Tech Name Role Phone Unavailable Primary Care Provider Unavailabl e Encounter Details Date Type Department Care Team (Late st Contact Info) Description 11/07/2019 Transcribed Document [facility] [place] [facility] [place] [address] ProviderAgnieszka MD [address], [place] [address] Social History Tobacco Use Types Packs/Day Years Used Date Smoking Tobacco: Never Assessed Sex and Gender Information Value Date Recorded Sex Assigned at Not on file Legal Sex Male 2:38 PM CDT Gender Identity Not on file Sexual Orientation Not on file documented as of this encounter Miscellaneous Notes * Cerner Conversion Note - Historical ProviderMD - 11/07/2019 2:00 AM CDT Sewer Builder Details Entered On: 11/07/2019 5:13 EDT Performed [...]
--- OUTSIDE RECORDS SUMMARY | 2025-07-14 12:40 | XMS_ITS | Encounter Summary ---
Author Organization [employer] ([place], [place], [place], [place], [place]) Address [address] [place] [address] Care Team Providers Care Director Client Name Role Phone Unavailable Primary Care Provider Unavailabl e Encounter Details Date Type Department Care Team (Late st Contact Info) Description 12/22/2018 Transcribed Document [facility] [place] [facility] [place] [address] ProviderAgnieszka MD [address] [place], [place] [address] Social History Tobacco Use Types Packs/Day Years [...] EDT Electronically signed by Gay Centeno Conversion Senior Design Engineering Specialist Cerner at 11/12/2022 9:54 PM CDT documented in this encounter Plan of Treatment Not on file documented as of this encounter Visit Diagnoses Not on filedocumented in this encounter
--- OUTSIDE RECORDS SUMMARY | 2025-07-14 12:40 | XMS_ITS | Encounter Summary ---
Author Organization [employer] ([place], [place], [place], [place], [place]) Address [address] [place] [address] Care Team Providers Care Medical Oncologist Name Role Phone Unavailable Primary Care Provider Unavailabl e Encounter Details Date Type Department Care Team (Late st Contact Info) Description 11/07/2019 Transcribed Document [facility] [place] [facility] [place] [address] ProviderAgnieszka MD [address], [place] [address] Social History Tobacco Use Types Packs/Day Years [...]
--- OUTSIDE RECORDS SUMMARY | 2025-07-14 12:40 | XMS_ITS | Encounter Summary ---
Author Organization [employer] ([place], [place], [place], [place], [place]) Address [address] [place] [address] Care Team Providers Care Manager Council Name Role Phone Unavailable Primary Care Provider Unavailabl e Encounter Details Date Type Department Care Team (Late st Contact Info) Description 12/22/2018 Transcribed Document [facility] [place] [facility] [place] [address] ProviderAgnieszka MD [address], [place] [id number] Social History Tobacco Use Types Packs/Day Years [...]
--- OUTSIDE RECORDS SUMMARY | 2025-07-14 12:40 | XMS_ITS | Encounter Summary ---
Author Organization [employer] ([place], [place], [place], [place], [place]) Address [address] [place] [address] Care Team Providers Care Dredge Pump Operator Name Role Phone Unavailable Primary Care Provider Unavailabl e Encounter Details Date Type Department Care Team (Late st Contact Info) Description 12/23/2018 Transcribed Document [facility] [place] [facility] [place] [address] ProviderAgnieszka MD [address], [place] [id number] Social History Tobacco Use Types Packs/Day Years [...] demonstration, Needs further teaching OSMANI RAINEY PTA 12/24/2018 14:59 EDT Indication Assesessment, PT Physical [...] BRIGID KARLEY KEEN - 12/24/2018 14:59 EDT Senior Living Goals Mobility/Bed Mobility LTG [...] OSMANI RAINEY PTA - 12/24/2018 14:59 EDT [place] PT Charges PT Therap. Exercise 15 min : 1 PT Ther Activities Ea 15 Min : 1 OSMANI RAINEY PTA - 12/24/2018 14:59 EDT documented in this encounter Plan of Treatment Not on file documented as of this encounter Visit Diagnoses Not on filedocumented in this encounter
--- OUTSIDE RECORDS SUMMARY | 2025-07-14 12:40 | XMS_ITS | Encounter Summary ---
Author Organization [employer] ([place], [place], [place], [place], [place]) Address [address] [place] [address] Care Team Providers Care News Videographer Name Role Phone Unavailable Primary Care Provider Unavailabl e Encounter Details Date Type Department Care Team (Late st Contact Info) Description 11/07/2019 Transcribed Document [facility] [place] [facility] [place] [address] ProviderAgnieszka MD [address], [place] [id number] Social History Tobacco Use Types Packs/Day Years [...] Reviewed : Yes Geno Whipple, RN - 11/07/2019 5:13 EDT documented in this encounter Plan of Treatment Not on file documented as of this encounter Visit Diagnoses Not on filedocumented in this encounter
--- OUTSIDE RECORDS SUMMARY | 2025-07-14 12:40 | XMS_ITS | Encounter Summary ---
Author Organization [employer] ([place], [place], [place], [place], [place]) Address [address] [place] [address] Care Team Providers Care Fitter / Welder Name Role Phone Unavailable Primary Care Provider Unavailabl e Encounter Details Date Type Department Care Team (Late st Contact Info) Description 12/22/2018 Transcribed Document [facility] Radiology [address] [place] [address] Ivana Salcido MD [address] [address] Social History Tobacco Use Types [...] APRN 12/22/18 cc: medical management - awaiting [id number] PLIF per Dr. Akers S: Patient in pre-op. present. Denies F/C/S. Denies SOA or chest pain. Denies headaches. Denies N/V/D. Denies constipation. Denies pain. Denies tobacco or ETOH use. Denies anxiety/depression. Denies any concerns at this time. HPI: Patient is a 68 yo male admitted to [facility] per Dr. Akers for a [id number] PLIF. Preoperatively patient was found to have [...] (Past 24 Hours) Impression: spondylolisthesis Lspine; awaiting [id number] PLIF per Dr. Akers hx Arthritis hx Colitis hx DJD (degenerative joint disease) of thoracic spine History of obstructive sleep apnea hx Parkinson disease hx Scoliosis hx back pain with RLE radiculopathy hx right inguinal surgery 15 yrs ago. hx left inguinal hernia 4 yrs ago. hx bilat catarract surgery 2018. hx colonoscopy many times. Plan: Monitor HTN; [...]
--- OUTSIDE RECORDS SUMMARY | 2025-07-14 12:40 | XMS_ITS | Encounter Summary ---
Author Organization [employer] ([place], [place], [place], [place], [place]) Address [address] [place] [address] Care Team Providers Care General Internist Name Role Phone Unavailable Primary Care Provider Unavailabl e Encounter Details Date Type Department Care Team (Late st Contact Info) Description 11/07/2019 Transcribed Document [facility] [place] [facility] [place] [address] ProviderAgnieszka MD [address] [place], [place] [address] Social History Tobacco Use Types Packs/Day Years [...] Pain Improved by Intervention : Yes Zee Taylor, MY - 11/07/2019 18:41 EDT documented in this encounter Plan of Treatment Not on file documented as of this encounter Visit Diagnoses Not on filedocumented in this encounter
--- OUTSIDE RECORDS SUMMARY | 2025-07-14 12:41 | XMS_ITS | Encounter Summary ---
Author Organization [employer] ([place], [place], [place], [place], [place]) Address [address] [place] [address] Care Team Providers Care Security Professional Name Role Phone Unavailable Primary Care Provider Unavailabl e Encounter Details Date Type Department Care Team (Late st Contact Info) Description 11/06/2019 Transcribed Document [facility] [place] [facility] [place] [address] ProviderAgnieszka MD [address], [place] [id number] Social History Tobacco Use Types Packs/Day Years [...]
--- OUTSIDE RECORDS SUMMARY | 2025-07-14 12:41 | XMS_ITS | Encounter Summary ---
Author Organization [employer] ([place], [place], [place], [place], [place]) Address [address] [place] [address] Care Team Providers Care Hris Administrator Name Role Phone Unavailable Primary Care Provider Unavailabl e Encounter Details Date Type Department Care Team (Late st Contact Info) Description 11/06/2019 Transcribed Document [facility] Radiology 1 [place] [address] Carlo Evans MD [address] [place], [place] [id number] Social History Tobacco Use Types Packs/Day Years [...] well nourished, no acute distress]. Neurologic: [Equal undraped artist model strength bilaterally, no movement or feeling in [...] Vanc, PICC ordered 11/04 in prep for fdc abx -Patient hemodynamically stable, afebrile -NSY following: [...] following. ID following, PICC in place, needs joint terminal attack controller abx recs prior to discharge. Awaiting PT/OT [...] Lymph # 1.33 x10(3)/uL 11/06/2019 05:53 EDT Bibb % 13.8 % (High) 11/06/2019 05:53 EDT Bibb # 0.99 K/uL 11/06/2019 05:53 EDT Eos [...]
--- OUTSIDE RECORDS SUMMARY | 2025-07-14 12:41 | XMS_ITS | Encounter Summary ---
Author Organization [employer] ([place], [place], [place], [place], [place]) Address [address] [place] [address] Care Team Providers Care Sap Sd Analyst Name Role Phone Unavailable Primary Care Provider Unavailabl e Encounter Details Date Type Department Care Team (Late st Contact Info) Description 11/06/2019 Transcribed Document [facility] [place] [facility] [place] [address] ProviderAgnieszka MD [address], [place] [id number] Social History Tobacco Use Types Packs/Day Years [...] 11/06/2019 16:19 EDT Electronically signed by Taryn [facility] Conversion Superintendent Colliery Cerjulio at 11/12/2022 9:39 PM CDT documented in this encounter Plan of Treatment Not on file documented as of this encounter Visit Diagnoses Not on filedocumented in this encounter
--- OUTSIDE RECORDS SUMMARY | 2025-07-14 12:41 | XMS_ITS | Encounter Summary ---
Author Organization [employer] ([place], [place], [place], [place], [place]) Address [address] [place] [address] Care Team Providers Care Import Coordinator Name Role Phone Unavailable Primary Care Provider Unavailabl e Encounter Details Date Type Department Care Team (Late st Contact Info) Description 11/06/2019 Transcribed Document [facility] [place] [facility] [address] ProviderAgnieszka MD [address], [place] [id number] Social History Tobacco Use Types Packs/Day Years [...]
--- OUTSIDE RECORDS SUMMARY | 2025-07-14 12:41 | XMS_ITS | Encounter Summary ---
Author Organization [employer] ([place], [place], [place], [place], [place]) Address [address] [place] [address] Care Team Providers Care Grocery Clerk Marking Name Role Phone Unavailable Primary Care Provider Unavailabl e Encounter Details Date Type Department Care Team (Late st Contact Info) Description 12/22/2018 Transcribed Document [facility] [place] [facility] [place] [address] ProviderAgnieszka MD [address] [place], [place] [id number] Social History Tobacco Use Types Packs/Day Years [...]
--- OUTSIDE RECORDS SUMMARY | 2025-07-14 12:41 | XMS_ITS | Clinical Summary ---
Author Organization [facility] Address [address] [place] [address] Care Team Providers Care Fire Fighter Name Role Phone Faustino Jones MD Primary Care Provider [phone] Allergies No known active allergies Medications FLUoxetine [...] 1-dose 75+ series) 2024 FIT-DNA 01/23/2025 01/23/2022 [id number] Vaccine (5 - 2024-26 season) 2025 02/07/2022, 05/23/2021, 10/04/2020, Additional history exists [facility]-Influenza Vaccine (#1) 03/28/202505/22, 05/16/2020, 04/22/2019, Additional history exists Colonoscopy 06/14/2029 06/14/2019, 06/16/2017 [facility]-Colorectal Cancer Screening 06/14/2029 [facility]-Hepatitis A Vaccines Aged Out 10/20/2018, 03/29 No longer eligible based on patient's age to complete this topic HPV Vaccines (No Doses Required) Completed [facility]-HIB Vaccines Aged Out No longer e [...] by an unspecified provider. us Historical Provider GI PROCEDURE ORDERABLES Nette l Result from Last 3 Months or Most Recently Relevant to Health Maintenance Insurance [address] [facility] [address] [id number] [place] [address] Care Teams Fire Fighter Relationship Specialty Start Date End Date Faustino Jones MD [address] [place] [address] [address] [id number] PCP - General 12/08/20
--- OUTSIDE RECORDS SUMMARY | 2025-07-14 12:41 | XMS_ITS | Encounter Summary ---
Author Organization [employer] ([place], [place], [place], [place], [place]) Address [address] [place] [address] Care Team Providers Care Repairer Welding Equipment Name Role Phone Unavailable Primary Care Provider Unavailabl e Encounter Details Date Type Department Care Team (Late st Contact Info) Description 11/06/2019 Transcribed Document [facility] [place] Family Medicine [address] [place] [address] ProviderAgnieszka MD [address] [place], [place] [id number] Social History Tobacco Use Types Packs/Day Years Used Date Smoking Tobacco: Never Assessed Sex and Gender Information Value Date Recorded Sex Assigned at Not on file Legal Sex Male 2:38 PM CDT Gender Identity Not on file Sexual Orientation Not on file documented as of this encounter Miscellaneous Notes * Cerner Conversion Note - Agnieszka ProviderMD - 11/06/2019 1:02 PM CDT [facility] Main OR IntraOp Summary Primary Physician: HEIDE KAT MD-SNU Finalized Date/Time: 11/07/19 12:14:47 Pt. Name: FAHEEM EILEEN REYES/Sex: 1950 Male Med Rec #: [id number] Physician: LORENA SAGASTUME MD-INT Financial #: [id number] Pt. Type: I Room/Bed: [facility] Admit/Disch: 11/02/19 02:59:00 - Institution: [facility] IntraOp Case Attendance Entry 1 [...] Case Attendee ANNABELLE ELDER, RN ZEINAB CABRERA, TIMBER ROBBER Role Performed Fruit Canner, First Scrub, First Time In 11/06/19 12:39:00 11/06/19 12:39:00 Time Out 11/06/19 14:40:00 11/06/19 14:40:00 Procedure Thoracic Laminectomy Thoracic Laminectomy Other Attendee Superficial Wound Closed By: Last Modified By: ANNABELLE ELDER RN SMITH, MYRIAH L., RN 11/06/19 14:39:34 11/06/19 14:39:34 [facility] IntraOp Case Attendance Audit 11/06/19 14:39:34 Radar Air Traffic Controller: ISIAH Modifier: SMITHML 1 <+> Time Out 1 <*> Procedure Thoracic Laminectomy 2 <*> Procedure Thoracic Laminectomy 3 <+> Time Out 3 <*> Procedure Thoracic Laminectomy 4 <+> Time Out 4 <*> Procedure Thoracic Laminectomy 5 <+> Time Out 5 <*> Procedure Thoracic Laminectomy 11/06/19 14:28:47 Radar Air Traffic Controller: ISIAH Modifier: SMITHML <+> 1 Procedure <+> 2 Procedure <+> 3 Procedure <+> 4 Procedure <+> 5 Procedure 11/06/19 14:28:11 Radar Air Traffic Controller: ISIAH Modifier: SMITHML 2 <+> Time In 2 <-> Procedure Lumbar Fusion Posterior 3 <-> Procedure Lumbar Fusion Posterior 4 <+> Time In 4 <-> Procedure Lumbar Fusion Posterior 5 <+> Time In 5 <-> Procedure Lumbar Fusion Posterior [facility] IntraOp Case Times Entry 1 Patient In Room Time 11/06/19 12:39:00 Out Room Time 11/06/19 14:40:00 Anesthesia Start Time 11/06/19 12:39:00 Stop Time 11/06/19 14:40:00 Surgery / Procedure Times Start Time 11/06/19 13:02:00 Stop Time 11/06/19 14:15:00 Last Modified By: ANNABELLE ELDER RN 11/06/19 14:39:04 [facility] IntraOp Case Times Audit 11/06/19 14:39:04 Radar Air Traffic Controller: SMITHML Modifier: SMITHML <+> 1 Out Room Time <+> 1 Stop Time 11/06/19 14:27:07 Radar Air Traffic Controller: SMITHML Modifier: SMITHML <+> 1 Stop Time 11/06/19 13:02:31 Radar Air Traffic Controller: SMITHML Modifier: SMITHML <+> 1 Start Time [facility] IntraOp Cautery Entry 1 Entry 2 ESU Identification Cautery Type Monopolar ESU BiPolar ESU Cautery Type Comments ID Number [id number] ID Type Hospital Number Hospital Number Cautery [...] MYRIAH L., RN 11/06/19 13:08:54 11/06/19 13:08:54 [facility] IntraOp Communication Entry 1 Communication To Family/Significant other Comment spoke to family preoperatively Communication By ANNABELLE ELDER RN Date and Time 11/06/19 13:04:00 Last Modified By: ANNABELLE ELDER RN 11/06/19 13:04:26 [facility] IntraOp Counts Verification Entry 1 Procedure Thoracic Laminectomy Count Info Count Type Sponge, Sharps, Miscellaneous Counts Verification Baseline/pre-procedure Sequence Count Results Not Applicable Counts Performed By Count Performed By ZEINAB CABRERA, TIMBER ROBBER (Scrub) Count Performed By ANNABELLE ELDER RN (RN) Last Modified By: ANNABELLE ELDER RN 11/06/19 14:28:48 [facility] IntraOp Counts Verification Audit 11/06/19 14:28:48 Radar Air Traffic Controller: SMITHML Modifier: SMITHML <+> 1 Procedure 11/06/19 14:28:12 Radar Air Traffic Controller: SMITHML Modifier: SMITHML 1 <-> Procedure Lumbar Fusion Posterior [facility] IntraOp Counts Final Entry 1 Procedure Thoracic Laminectomy Final Count Info Count Type Sponge, Sharps, Miscellaneous Counts Verification Skin Closure/end of Sequence procedure Count Results Correct, surgeon notified Counts Performed By Count Performed By ZEINAB CABRERA TIMBER ROBBER (Scrub) Count Performed By ANNABELLE ELDER RN (RN) Last Modified By: ANNABELLE ELDER RN 11/06/19 14:28:49 [facility] IntraOp Counts Final Audit 11/06/19 14:28:49 Radar Air Traffic Controller: SMITHML Modifier: SMITHML <+> 1 Procedure 11/06/19 14:28:13 Radar Air Traffic Controller: ISIAH Modifier: SMITHML 1 <-> Procedure Lumbar Fusion Posterior H IntraOp Cultures and Spec Summary Entry 1 Cultrures and Specimens Specimen Ordered: Yes Test(s) Culture(s)/Microbiology Requested/Final Disposition Last Modified By: ANNABELLE LEDER RN 11/06/19 13:12:47 General Comments: surgical swabs tissue for culture [facility] IntraOp Departure from OR Entry 1 Integumentary Assessment Integumentary WDL with patient Assessment WDL specific variances Patient's Normal incision Integumentary Variance(s) Transfer/Handoff Transfer to PACU Phase I Handoff Method Bedside/Face to face, Phone call Post-op Transport Stretcher/Gurney Via Patient Transport URIEL MATOS MD-ANS, Accompanied by ANNABELLE ELDER RN Last Modified By: ANNABELLE ELDER RN 11/06/19 13:12:37 [facility] IntraOp Dressing and Packing Entry 1 Type Dressing Location back Wound Dressing Item Occlusive dressing Applied By HEIDE KAT MD-SNU Other Comments neosporin Last Modified By: ANNABELLE ELDER RN 11/06/19 13:12:13 [facility] IntraOp Fire Risk Assessment Entry [...] Modified By: ANNABELLE ELDER RN 11/06/19 13:05:27 [facility] IntraOp General Case Sheet Fed Printer 1 Case Information OR OR [facility] Case Level 1 Room Verified Yes Wound Class I - Clean Specialty SN Neurosurgery Anesthesia Type General ASA Class 3E Diagnosis Preop Diagnosis thoracic epidural hematoma Postop Same As Preop No Postop Diagnosis see drs post op notes Last Modified By: ANNABELLE ELDER RN 11/06/19 13:05:13 [facility] IntraOp Intraoperative Assessment Entry 1 [...] Modified By: ANNABELLE ELDER RN 11/06/19 13:07:57 [facility] IntraOp Intraoperative Equipment Entry 1 Type Equipment Equipment Equipment Lithotripsy Machine ID Number [id number] Intraop Monitoring Antiembolic Devices Antiembolic Devices Sequential compression device, knee high Antiembolic Device Bilateral Location Antiembolic Device [id number] ID Number Scopes Photo/Video Documentation Last Modified By: ANNABELLE ELDER RN 11/06/19 13:08:16 [facility] IntraOp Medication Admin Entry 1 Entry 2 Entry 3 Medication/Irrigant Bacitracin 50,00units lidocaine 1% w/ Marcaine 0.25% 30ml powder vial epinephrine 1:100,000 vial - [id number] 30ml vial - [id number] Combo Med List Time Administered Route of irrigation local local Administration Dose Dose 57785 10 20 Unit of Measure units ml ml Volume Administered By HEIDE KAT TUTT, MATTHEW PAIGE, TUTT, MATTHEW PAIGE, MD-SNU MD-SNU MD-DIVYA Procedure Irrigation Irrigant Volume In Irrigant Volume Out Last Modified By: ANNABELLE ELDER RN SMITH, MYRIAH L., RN SMITH, MYRIAH L. RN 11/06/19 13:11:50 11/06/19 13:11:50 11/06/19 13:11:50 Entry 4 Entry 5 Entry 6 Medication/Irrigant SPNG SURGFOAM Neosporin 15Gm ointment thrombin 5000units [id number] - [id number] topical powder - [id number] Combo Med List 1 - Combo Med [...] Entry 7 Medication/Irrigant vancomycin 1Gm vial - [id number] Combo Med List Time Administered Route of topical Administration Dose Dose 1 Unit of Measure gram Volume Administered By HEIDE KAT MD-SNU Procedure Irrigation Irrigant Volume In Irrigant Volume Out Last Modified By: ANNABELLE ELDER RN 11/06/19 13:11:50 [facility] IntraOp Patient Positioning Entry 1 Procedure Thoracic [...] Modified By: ANNABELLE ELDER RN 11/06/19 14:28:48 [facility] IntraOp Patient Positioning Audit 11/06/19 14:28:48 Radar Air Traffic Controller: ISIAH Modifier: ISIAH <+> 1 Procedure 11/06/19 14:28:12 Radar Air Traffic Controller: ISIAH Modifier: ISIAH 1 <-> Procedure Lumbar Fusion Posterior [facility] IntraOp Sign In Entry 1 [...] Modified By: ANNABELLE ELDER RN 11/06/19 13:04:05 [facility] IntraOp Sign Out Entry 1 [...] Modified By: ANNABELLE ELDER RN 11/06/19 14:39:33 [facility] IntraOp Skin Prep Entry 1 Procedure Thoracic Laminectomy Prescribed N/A Pre-Surgical Prep Completed Prep Area back Intraop Prep Integumentary WDL with patient Assessment WDL specific variances WDL Patient gilson and drain in Exceptions place Prep Agents Alcohol, Chloraprep, Chlorhexadine gluconate Prep by HEIDE KAT MD-SNU Hair Removal Methods No hair removal performed Last Modified By: ANNABELLE ELDER RN 11/06/19 14:28:49 [facility] IntraOp Skin Prep Audit 11/06/19 14:28:49 Radar Air Traffic Controller: ISIAH Modifier: SMITHML <+> 1 Procedure 11/06/19 14:28:12 Radar Air Traffic Controller: ISIAH Modifier: SMITHML 1 <-> Procedure Lumbar Fusion Posterior [facility] IntraOp Surgical Procedures Entry 1 Procedure Thoracic Laminectomy Additional thoracic laminectomy, Procedure I&D Description Primary Procedure Yes Primary Surgeon HEIDE KAT MD-SNU Start 11/06/19 13:02:00 Stop 11/06/19 14:15:00 Anesthesia Type General Specialty SN Neurosurgery Wound Class I - Clean Last Modified By: ANNABELLE ELDER RN 11/06/19 14:28:41 [facility] IntraOp Temp Regulation Devices Entry 1 Temp Regulation Temperature Forced Air Warming Regulation Device device, Room temperature, Warm blankets Temperature Upper body, Lower body Regulation Site Temperature URIEL MATOS MD-ANS Regulation Device Applied by Last Modified By: ANNABELLE ELDER RN 11/06/19 13:20:01 [facility] IntraOP Time Out Entry 1 [...] Modified By: ANNABELLE ELDER RN 11/06/19 14:28:49 [facility] IntraOP Time Out Audit 11/06/19 14:28:49 Radar Air Traffic Controller: ISIAH Modifier: SMITHML <+> 1 Procedure to be Performed 11/06/19 14:28:13 Radar Air Traffic Controller: ISIAH Modifier: SMITHML 1 <-> Procedure to be Performed Lumbar Fusion Posterior Case Comments <None> Finalized By: JUNIE ROWLEY Document Signatures Signed By: ANNABELLE ELDER RN 11/06/19 14:39 ROWLEYJUNIE 11/07/19 12:14 Unfinalized History Date/Time Username Reason for Unfinalizing Freetext Reason for Unfinalizing 11/07/19 12:10 WATTSDR Correct Billing Electronically signed by [facility] Conversion Director Of Institutional Giving Cerner at 11/12/2022 9:44 PM CDT documented in this encounter Plan of Treatment Not on file documented as of this encounter Visit Diagnoses Not on filedocumented in this encounter
--- OUTSIDE RECORDS SUMMARY | 2025-07-14 12:41 | XMS_ITS | Encounter Summary ---
Author Organization [employer] ([place], [place], [place], [place], [place]) Address [address] [place] [address] Care Team Providers Care Pool Hand Name Role Phone Unavailable Primary Care Provider Unavailabl e Encounter Details Date Type Department Care Team (Late st Contact Info) Description 11/07/2019 Transcribed Document [facility] [place] [facility] [place] [address] ProviderAgnieszka MD [address] [place] [address] Social History Tobacco Use Types Packs/Day Years [...] requested he see patient. Patient is a Pentecostal and welcomes prayer. Spiritual/Emotional Acuity : Medium Spiritual Framework : Integrated, provides strength/resource Active in a Christian/Sommer Group : Yes Presybeterian Preference : Pentecostal Summary/Next Steps Comment/Summary : Prayer and encouragement shared with patient. NAE BELL Chaplain - 11/07/2019 11:28 EDT documented in this encounter Plan of Treatment Not on file documented as of this encounter Visit Diagnoses Not on filedocumented in this encounter
--- OUTSIDE RECORDS SUMMARY | 2025-07-14 12:41 | XMS_ITS | Encounter Summary ---
Author Organization [employer] ([place], [place], [place], [place], [place]) Address [address] [place] [address] Care Team Providers Care Phlebotomy Coordinator Name Role Phone Unavailable Primary Care Provider Unavailabl e Encounter Details Date Type Department Care Team (Late st Contact Info) Description 11/07/2019 Transcribed Document [facility] [place] [facility] [place] [address] ProviderAgnieszka MD [address], [place] [phone] Social History Tobacco Use Types Packs/Day Years [...]
--- OUTSIDE RECORDS SUMMARY | 2025-07-14 12:41 | XMS_ITS | Encounter Summary ---
Author Organization [employer] ([place], [place], [place], [place], [place]) Address [address] [place] [address] Care Team Providers Care Exhibit Carpenter Name Role Phone Unavailable Primary Care Provider Unavailabl e Encounter Details Date Type Department Care Team (Late st Contact Info) Description 12/22/2018 Transcribed Document [facility] [place] [facility] [place] [address] ProviderAgnieszka MD [address], [place] [address] Social History Tobacco Use Types Packs/Day Years [...] OR Preop Summary Primary Physician: HEIDE KAT MD-DIVYA Finalized Date/Time: 12/22/18 15:35:45 Pt. Name: SIMBA MAYEN JR/Sex: 1950 Male Med Rec #: [id number] Physician: HEIDE KAT MD-SNU Financial #: [id number] Pt. Type: I Room/Bed: ASA/3 Admit/Disch: 12/22/18 [...] CENTER PreOp Case Times Audit 12/22/18 15:35:43 Roofing Foreman: DONNAOFELIA Modifier: GIANLUCAMICHELEOFELIA <+> 1 Patient Out of Preop Finalized By: GIANLUCA HERRON, RN Document Signatures Signed By: GIANLUCA HERRON RN 12/22/18 15:35 documented in this encounter Plan of Treatment Not on file documented as of this encounter Visit Diagnoses Not on filedocumented in this encounter
--- OUTSIDE RECORDS SUMMARY | 2025-07-14 12:41 | XMS_ITS | Encounter Summary ---
Author Organization [employer] ([place], [place], [place], [place], [place]) Address [address] [place] [address] Care Team Providers Care Entrance Guard Name Role Phone Unavailable Primary Care Provider Unavailabl e Encounter Details Date Type Department Care Team (Late st Contact Info) Description 12/22/2018 Transcribed Document [facility] [place] [facility] [place] [address] ProviderAgnieszka MD [facility] [place], [place] [id number] Social History Tobacco Use Types Packs/Day Years [...] CDT [facility] Main OR IntraOp Summary Primary Physician: HEIDE KAT MD-SNU Finalized Date/Time: 12/23/18 10:58:23 Pt. Name: EILEEN MAYEN JR/Sex: 1950 Male Med Rec #: [id number] Physician: HEIDE KAT MD-SNU Financial #: [id number] Pt. Type: I Room/Bed: [facility]/ Admit/Disch: 12/22/18 06:36:00 - Institution: [facility] IntraOp Case Attendance Entry 1 Entry 2 Entry 3 Case Attendee HEIDE KAT Burdine, Teresa A, Rn LONG, PAULA R. MD-SNU Role Performed Surgeon/Proceduralist, Application Packaging Consultant, First Scrub, Second First Time In 12/22/18 12:37:00 12/22/18 12:37:00 12/22/18 12:37:00 Time Out 12/22/18 18:08:00 12/22/18 15:30:00 12/22/18 15:00:00 Procedure Lumbar Fusion Posterior Lumbar Fusion Posterior Lumbar Fusion Posterior 3 Level 3 Level 3 Level Other Attendee Superficial Wound Closed By: Last Modified By: Monica Bustillos Rn Burdine, Teresa A, Monica mAbrosio Rn 12/22/18 18:08:27 12/22/18 18:08:27 12/22/18 18:08:27 Entry 4 Entry 5 Entry 6 Case Attendee ANNABELLE ELDER, THERESA YAÑEZ PA WORLEY, ANGELICA LANDAVERDE MD Role Performed Scrub, Second HOME TEACHING GRADES 7 AND 8 TEACHER/Nurse Field Support Rep Anesthesiologist of Record Time In 12/22/18 12:37:00 12/22/18 12:37:00 12/22/18 12:37:00 Time Out 12/22/18 18:08:00 12/22/18 18:08:00 12/22/18 18:08:00 Procedure Lumbar Fusion Posterior Lumbar Fusion Posterior Lumbar Fusion Posterior 3 Level 3 Level 3 Level Other Attendee LUNCH СЕРГЕЙ Superficial Wound Closed By: Last Modified By: Monica Bustillos Rn Burdine, Teresa A, Monica Ambrosio Rn 12/22/18 18:08:27 12/22/18 18:08:27 12/22/18 18:08:27 Entry 7 Entry 8 Entry 9 Case Attendee JOANIE BONNER, Nadia Jang, Lopez OTHER, ATTENDEE #1 Role Performed Application Packaging Consultant, Second HOME TEACHING GRADES 7 AND 8 TEACHER/Nurse Field Support Rep Vendor Time In 12/22/18 12:37:00 12/22/18 12:37:00 12/22/18 12:37:00 Time Out 12/22/18 18:08:00 12/22/18 18:08:00 12/22/18 18:08:00 Procedure Lumbar Fusion Posterior Lumbar Fusion Posterior Lumbar Fusion Posterior 3 Level 3 Level 3 Level Other Attendee ALCIDES DYSON Superficial Wound Closed By: Last Modified By: Monica Bustillos Rn Burdine, Teresa A Monica Ambrosio Rn 12/22/18 18:08:44 12/22/18 18:08:27 12/22/18 18:08:27 Entry 10 Entry 11 Entry 12 Case Attendee Nadia Valdivia, Clifton Munoz, Delmi Chacon [employer] Pref Card Builder Role Performed HOME TEACHING GRADES 7 AND 8 TEACHER/Nurse Field Support Rep HOME TEACHING GRADES 7 AND 8 TEACHER/Nurse Field Support Rep Scrub, First Time In 12/22/18 12:37:00 12/22/18 [...] A, ARCHIE Lincoln Role Performed Scrub, First Application Packaging Consultant, First Scrub, First Time In 12/22/18 12:50:00 [...] VILLALPANDO PA-C Role Performed Scrub, First Physician volunteer assistant Time In 12/22/18 17:22:00 12/22/18 12:37:00 Time Out 12/22/18 18:08:00 12/22/18 18:08:00 Procedure Lumbar Fusion Posterior Lumbar Fusion Posterior 3 Level 3 Level Other Attendee Superficial Wound Closed By: Last Modified By: Monica Bustillos Rn Burdine, Teresa A, Rn 12/22/18 18:08:27 12/22/18 18:08:27 [facility] IntraOp Case Attendance Audit 12/22/18 18:08:44 Spooler Rubber Strand: [id number] Modifier: [id number] <+> Role Performed 15 <*> Procedure Lumbar Fusion Posterior 3 Level 12/22/18 18:08:27 Sp[employer] Strand: [id number] Modifier: [id number] <+> Time Out 1 <*> Procedure [...] Lumbar Fusion Posterior 3 Level 12/22/18 17:32:50 Sp[employer] Strand: [id number] Modifier: [id number] 1 <*> Procedure Lumbar Fusion Posterior 3 [...] Lumbar Fusion Posterior 3 Level 12/22/18 17:31:57 Sp[employer] Strand: [id number] Modifier: [id number] <+> 17 Case Attendee <+> 17 Role Performed <+> 17 Procedure 12/22/18 17:22:20 Sp[employer] Strand: [id number] Modifier: [id number] <+> Time Out 15 <*> Procedure Lumbar Fusion Posterior 3 Level <+> 16 Case Attendee <+> 16 Role Performed <+> 16 Time In <+> 16 Procedure 12/22/18 17:20:00 Sp[employer] Strand: [id number] Modifier: [id number] <+> 15 Case Attendee <+> 15 Time In <+> 15 Procedure 12/22/18 17:19:17 Sp[employer] Strand: [id number] Modifier: [id number] <+> Time Out 3 <*> Procedure Lumbar Fusion Posterior 3 Level 12 <+> Time Out 12 <*> Procedure Lumbar Fusion Posterior 3 Level 12/22/18 16:40:42 Sp[employer]er Rub[employer] Strand: [id number] Modifier: [id number] 2 <+> Time Out 2 <*> Procedure Lumbar Fusion Posterior 3 Level <+> 14 Case Attendee <+> 14 Role Performed <+> 14 Time In <+> 14 Procedure 12/22/18 15:28:44 Sp[employer]er Rub[employer] Strand: [id number] Modifier: [id number] <*> Procedure Lumbar Fusion Posterior 3 Level <+> 12 Case Attendee <+> 12 Role Performed <+> 12 Time In <+> 12 Procedure <+> 13 Case Attendee <+> 13 Role Performed <+> 13 Time In <+> 13 Time Out <+> 13 Procedure 12/22/18 15:09:00 Sp[employer]er Rubber Strand: [id number] Modifier: [id number] <+> Time Out 11 <*> Procedure Lumbar Fusion Posterior 3 Level 12/22/18 15:08:31 Sp[employer] Strand: [id number] Modifier: [id number] <+> 10 Case Attendee <+> 10 Role Performed <+> 10 Time In <+> 10 Time Out <+> 10 Procedure <+> 11 Case Attendee <+> 11 Role Performed <+> 11 Time In <+> 11 Procedure <+> 11 Other Attendee 12/22/18 13:27:26 Sp[employer]er Rubber Strand: [id number] Modifier: [id number] <+> 1 Procedure 2 <*> Procedure Lumbar [...] Lumbar Fusion Posterior 3 Level 12/22/18 13:25:52 Sp[employer]er Rubber Strand: [id number] Modifier: [id number] <+> 1 Time In 2 <+> Time [...] <*> Procedure Lumbar Fusion Posterior 3 Level [facility] IntraOp Case Times Entry 1 Patient In Room Time 12/22/18 12:37:00 Out Room Time 12/22/18 18:08:00 Anesthesia Start Time 12/22/18 12:37:00 Stop Time 12/22/18 18:08:00 Surgery / Procedure Times Start Time 12/22/18 13:14:00 Stop Time 12/22/18 17:20:00 Last Modified By: Monica Bustillos Rn 12/22/18 18:08:26 [facility] IntraOp Case Times Audit 12/22/18 18:08:26 Sp[employer] Strand: [id number] Modifier: [id number] <+> 1 Out Room Time <+> 1 Stop Time <+> 1 Stop Time 12/22/18 13:14:12 Sp[employer]er Rub[employer] Strand: [id number] Modifier: [id number] <+> 1 Start Time [facility] IntraOp Cautery Entry 1 Entry 2 ESU Identification Cautery Type Monopolar ESU BiPolar ESU Cautery Type Comments [place] Number [id number] ID Type Hospital Number Hospital Number Cautery [...] Teresa A, Rn 12/22/18 12:35:57 12/22/18 12:35:57 [facility] IntraOp Communication Entry 1 Entry [...] 12/22/18 17:55:57 General Comments: NO FAMILY PRESENT [facility] IntraOp Communication Audit 12/22/18 17:55:57 Sp[employer] Strand: [id number] Modifier: [id number] 1 <*> Communication By Monica Bustillos Rn 1 <*> Communication By Monica Bustillos Rn 1 <*> Communication By Monica Bustillos Rn 1 <*> Communication By Monica Bustillos Rn 1 <*> Communication By Monica Bustillos, [...] <*> Comment 5 <*> Comment 12/22/18 15:53:33 Sp[employer] Strand: [id number] Modifier: [id number] <*> Communication By Monica Bustillos Rn 3 <*> Communication By Monica Bustillos Rn 3 <*> Date and Time 3 <*> Date and Time 3 <*> Communication To 3 <*> Communication To 3 <*> Comment 3 <*> Comment 12/22/18 14:56:30 Sp[employer] Strand: [id number] Modifier: [id number] 2 <*> Communication By Monica Bustillos, Rn [...] [facility] IntraOp Counts Final Audit 12/22/18 17:20:13 Sp[employer]er Rub[employer] Strand: [id number] Modifier: [id number] 1 <*> Procedure Lumbar Fusion Posterior 3 Level 1 <*> Count Performed By (Scrub) KENNY IGNACIO 12/22/18 17:17:55 Sp[employer] Strand: [id number] Modifier: [id number] 1 <*> Procedure Lumbar Fusion Posterior 3 Level 1 <*> Count Performed By (RN) Monica Bustillos Rn [facility] IntraOp Departure from OR Entry [...] Modified By: Monica Bustillos Rn 12/22/18 17:32:15 [facility] IntraOp Dressing and Packing Audit 12/22/18 17:32:15 Sp[employer] Strand: [id number] Modifier: [id number] <+> 1 Applied By [facility] IntraOp Fire Risk Assessment Entry [...] Modified By: Monica Bustillos Rn 12/22/18 13:18:45 [facility] IntraOp General Case Business Investor 1 Case Information OR OR 10 [facility] Case Level 1 Room Verified Yes Wound Class I - Clean Specialty SN Neurosurgery ASA Class 4 Diagnosis Preop Diagnosis LUMBAR REDICULOPATHY Postop Same As Preop No Postop Diagnosis SEE MD POST OP NOTE Last Modified By: Monica Bustillos Rn 12/22/18 13:20:56 [facility] IntraOp General Case Data Audit 12/22/18 13:20:56 Spooler Rubber Strand: [id number] Modifier: [id number] <+> 1 Postop Same As Preop <+> 1 Preop Diagnosis <+> 1 Postop Diagnosis [facility] IntraOp Implant Log Entry 1 Entry 2 Entry 3 Type Tissue Implant Tissue Implant Implant (Synthetic) (Biologic) (Biologic) Implant Log Implant Type Hardware Tissue Implant Type Bone Bone Implant BONE VIVIGEN FRMBLE BONE FT DBX [id number] Identification CELL [facility]-[id number] [facility]-[id number] Description Implant Quantity 1 1 2 Implant Site OP SITE OP SITE OPSITE Implant [id number] Identification Model Number Implant [id number] Identification Serial Number Implant Identification Lot Number Implant Lifenet:Lifenet Musculoskeletal SYNTHES SPINE Identification Transplant Srv Transplant Fnd Bicycle Service Technician Name: Implant [id number] Identification Catalog Number Implant Size PREBENT SCOLI RAE Implant Has an Yes Yes No Expiration Date Implant Expiration 11/27/19 06/12/20 Date Wasted Radioactive Material Time Implanted Tissue Implant Continue for Tissue Implant Documentation Tissue Identification Number Graft Prep Per Bicycle Service Technician Instructions: Tissue Preparation Method: Reconstitution Solution: Reconstitution Solution Lot Number Reconstitution Solution Expiration Date: Thawing Solution Thawing Solution Lot Number Thawing Solution Expiration Date Preparation Materials, Other Preparation Materials, Other Lot Number Preparation Materials, Other Expiration Date Tissue Prepared/Processed By Bicycle Service Technician Paperwork Completed Implant Type Comment Last Modified [...] FIX FEN SCR SPNE ALIN FIX Identification [id number] Description Implant Quantity 6 8 4 Implant Site OPSITE OPSITE OPSITE Implant Identification Model Number Implant Identification Serial Number Implant Identification Lot Number Implant J&J:Depuy:Depuy Spine J&J:Depuy:Depuy Spine J&J:Depuy:Depuy Spine Identification Bicycle Service Technician Name: Implant [id number] Identification Catalog Number Implant Size Implant Has an No No No Expiration Date Implant Expiration Date Wasted Radioactive Material Time Implanted Tissue Implant Continue for Tissue Implant Documentation Tissue Identification Number Graft Prep Per Bicycle Service Technician Instructions: Tissue Preparation Method: Reconstitution Solution: Reconstitution Solution Lot Number Reconstitution Solution Expiration Date: Thawing Solution Thawing Solution Lot Number Thawing Solution Expiration Date Preparation Materials, Other Preparation Materials, Other Lot Number Preparation Materials, Other Expiration Date Tissue Prepared/Processed By Bicycle Service Technician Paperwork Completed Implant Type Comment Last Modified By: Monica Bustillos Rn Burdine, Teresa A, Rn Burdine, Teresa A, Rn 12/22/18 15:37:38 12/22/18 17:42:10 12/22/18 17:42:10 Entry 7 Entry 8 Entry 9 Type Implant (Synthetic) Implant (Synthetic) Implant (Synthetic) Implant Log Implant Type Hardware Hardware Hardware Tissue Implant Type Implant SCR ILIAM 9MM X 100MM MIS SUNNI PLY SCRW SET CAGE BULLET CONCORDE Identification [id number] Description Implant Quantity 2 20 1 Implant Site OPSITE OPSITE OPSITE Implant Identification Model Number Implant Identification Serial Number Implant Identification Lot Number Implant J&J:Depuy:Depuy Spine J&J:Depuy:Depuy Spine J&J:Depuy:Depuy Spine Identification Bicycle Service Technician Name: Implant [id number] Identification Catalog Number Implant Size Implant Has an No No No Expiration Date Implant Expiration Date Wasted Radioactive Material Time Implanted Tissue Implant Continue for Tissue Implant Documentation Tissue Identification Number Graft Prep Per Bicycle Service Technician Instructions: Tissue Preparation Method: Reconstitution Solution: Reconstitution Solution Lot Number Reconstitution Solution Expiration Date: Thawing Solution Thawing Solution Lot Number Thawing Solution Expiration Date Preparation Materials, Other Preparation Materials, Other Lot Number Preparation Materials, Other Expiration Date Tissue Prepared/Processed By Bicycle Service Technician Paperwork Completed Implant Type Comment Last Modified By: Monica Bustillos Rn Burdine, Teresa A, Rn Burdine, Teresa A, Rn 12/22/18 17:42:10 12/22/18 17:42:10 12/22/18 17:42:10 Entry 10 Entry 11 Type Implant (Synthetic) Implant (Synthetic) Implant Log Implant Type Hardware Hardware Tissue Implant Type Implant CAGE BULLET CONCORDE CONCORDE BUL ANGELIKA Identification [id number] Description Implant Quantity 1 1 Implant Site OPSITE OPSITE Implant Identification Model Number Implant Identification Serial Number Implant Identification Lot Number Implant J&J:Depuy:Depuy Spine J&J:Depuy:Depuy Spine Identification Bicycle Service Technician Name: Implant [id number] Identification Catalog Number Implant Size Implant Has an No No Expiration Date Implant Expiration Date Wasted Radioactive Material Time Implanted Tissue Implant Continue for Tissue Implant Documentation Tissue Identification Number Graft Prep Per Bicycle Service Technician Instructions: Tissue Preparation Method: Reconstitution Solution: Reconstitution Solution Lot Number Reconstitution Solution Expiration Date: Thawing Solution Thawing Solution Lot Number Thawing Solution Expiration Date Preparation Materials, Other Preparation Materials, Other Lot Number Preparation Materials, Other Expiration Date Tissue Prepared/Processed By Bicycle Service Technician Paperwork Completed Implant Type Comment Last Modified By: Monica Bustillos Rn Burdine, Teresa A, Rn 12/22/18 17:42:10 12/22/18 17:42:10 [facility] IntraOp Implant Log Audit 12/22/18 17:42:10 Spooler Rubber Strand: [id number] Modifier: [id number] <+> 3 Implant Identification Description <+> 3 Implant Identification Bicycle Service Technician Name: <+> 3 Implant Size <+> 3 Implant Site <+> 3 Implant Quantity <+> 3 Implant Type <+> 3 Implant Has an Expiration Date <+> 3 Type <+> 4 Implant Identification Description <+> 4 Implant Identification Bicycle Service Technician Name: <+> 4 Implant Site <+> 4 Implant Quantity <+> 4 Implant Identification Catalog Number <+> 4 Implant Type <+> 4 Implant Has an Expiration Date <+> 4 Type <+> 5 Implant Identification Description <+> 5 Implant Identification Bicycle Service Technician Name: <+> 5 Implant Site <+> 5 Implant Quantity <+> 5 Implant Identification Catalog Number <+> 5 Implant Type <+> 5 Implant Has an Expiration Date <+> 5 Type <+> 6 Implant Identification Description <+> 6 Implant Identification Bicycle Service Technician Name: <+> 6 Implant Site <+> 6 Implant Quantity <+> 6 Implant Identification Catalog Number <+> 6 Implant Type <+> 6 Implant Has an Expiration Date <+> 6 Type <+> 7 Implant Identification Description <+> 7 Implant Identification Bicycle Service Technician Name: <+> 7 Implant Site <+> 7 Implant Quantity <+> 7 Implant Identification Catalog Number <+> 7 Implant Type <+> 7 Implant Has an Expiration Date <+> 7 Type <+> 8 Implant Identification Description <+> 8 Implant Identification Bicycle Service Technician Name: <+> 8 Implant Site <+> 8 Implant Quantity <+> 8 Implant Identification Catalog Number <+> 8 Implant Type <+> 8 Implant Has an Expiration Date <+> 8 Type <+> 9 Implant Identification Description <+> 9 Implant Identification Bicycle Service Technician Name: <+> 9 Implant Site <+> 9 Implant Quantity <+> 9 Implant Identification Catalog Number <+> 9 Implant Type <+> 9 Implant Has an Expiration Date <+> 9 Type <+> 10 Implant Identification Description <+> 10 Implant Identification Bicycle Service Technician Name: <+> 10 Implant Site <+> 10 Implant Quantity <+> 10 Implant Identification Catalog Number <+> 10 Implant Type <+> 10 Implant Has an Expiration Date <+> 10 Type <+> 11 Implant Identification Description <+> 11 Implant Identification Bicycle Service Technician Name: <+> 11 Implant Site <+> 11 Implant Quantity <+> 11 Implant Identification Catalog Number <+> 11 Implant Type <+> 11 Implant Has an Expiration Date <+> 11 Type [facility] IntraOp Intraoperative Assessment Entry 1 [...] Modified By: Monica Bustillos Rn 12/22/18 13:21:44 [facility] IntraOp Intraoperative Equipment Entry 1 Type Equipment Equipment Equipment Ganesh Suction System Setting 200MMHG Intraop Monitoring Electrocardiogram Three lead placement (ECG) Electrode Placement Blood Pressure Non-Invasive BP Device Source Blood Pressure Arm, right upper Location Pulse Oximeter Hand, left Probe Site Antiembolic Devices Antiembolic Devices Sequential compression device, knee high Antiembolic Device Bilateral Location Antiembolic Device [id number] ID Number Scopes Photo/Video Documentation Photo No Video No Last Modified By: Monica Bustillos Rn 12/22/18 13:22:24 [facility] IntraOp Medication Admin Entry 1 Entry 2 Entry 3 Medication/Irrigant Bacitracin 50,00units lidocaine 1% w/ Marcaine 0.25% 30ml powder vial epinephrine 1:100,000 vial - [id number] 30ml vial - [id number] Combo Med List Time Administered Route of MIXED WITH NS IRRIGATION LOCAL LOCAL Administration Dose Dose 45824 10 10 Unit of Measure units ml [...] ointment SEALR AQUAMANTYS BIPLR SPNG SURGFOAM - [id number] Combo Med List Time Administered Route of [...] Entry 8 Medication/Irrigant thrombin 5000units vancomycin -- [id number] topical powder - [id number] Combo Med List Time Administered Route of TOPICAL POWDER IN WOUND Administration Dose Dose 5000 1 Unit of Measure units gram Volume Administered By HEIDE KAT TUTT, MATTHEW PAIGE, MD-SNU MD-SNU Procedure Irrigation Irrigant Volume In Irrigant Volume Out Last Modified By: Monica Bustillos Rn Burdine, Teresa A, Rn 12/22/18 13:24:19 12/22/18 16:41:25 [facility] IntraOp Medication Admin Audit 12/22/18 16:41:25 [employer] Strand: [id number] Modifier: [id number] <+> 8 Medication/Irrigant <+> 8 Route of Administration <+> 8 Administered By <+> 8 Dose <+> 8 Unit of Measure [facility] IntraOp Patient Positioning Entry 1 Procedure Lumbar [...] Monica Bustillos Rn, JOANIE BONNER RN, Nadia Valdivia Crna Position Verified Positioning Yes Verified by Anesthesia [...] Modified By: Monica Bustillos Rn 12/22/18 13:25:49 [facility] IntraOp Sign Out Entry 1 [...] Modified By: Monica Bustillos Rn 12/22/18 18:09:18 [facility] IntraOp Sign Out Audit 12/22/18 18:09:18 [employer] Strand: [id number] Modifier: [id number] 1 <*> RN Sign Out Signature Monica Bustillos Rn 1 <+> RN Sign Out Signature Date/Time [facility] IntraOp Skin Prep Entry 1 [...] Teresa A, Rn 12/22/18 13:27:01 12/22/18 13:27:01 [facility] IntraOp Surgical Procedures Entry 1 Procedure Lumbar Fusion Posterior 3 Level Additional ([id number] PLIF) Procedure Description Primary Procedure Yes Primary Surgeon HEIDE KAT MD-SNU Start 12/22/18 13:14:00 Stop 12/22/18 17:20:00 Anesthesia Type General Specialty SN Neurosurgery Wound Class I - Clean Last Modified By: Monica Bustillos Rn 12/22/18 18:09:20 General Comments: ANCEF 2GM IV PER ANESTHESIA [facility] IntraOp Surgical Procedures Audit 12/22/18 18:09:20 [employer] Strand: [id number] Modifier: [id number] 1 <*> Stop 1 <*> Stop [facility] IntraOp Temp Regulation Devices Entry 1 Temp Regulation Temperature Forced Air Warming Regulation Device device Temperature Upper body Regulation Site Last Modified By: Monica Bustillos Rn 12/22/18 12:37:27 [facility] IntraOP Time Out Entry 1 documented in this encounter Plan of Treatment Not on file documented as of this encounter Visit Diagnoses Not on filedocumented in this encounter
--- OUTSIDE RECORDS SUMMARY | 2025-07-14 12:41 | XMS_ITS | Encounter Summary ---
Author Organization [employer] ([place], [place], [place], [place], [place]) Address [address] [place] [address] Care Team Providers Care Size Roller Operator Name Role Phone Unavailable Primary Care Provider Unavailabl e Encounter Details Date Type Department Care Team (Late st Contact Info) Description 12/22/2018 Transcribed Document [facility] [place] Family Medicine [facility] [place] [address] ProviderAgnieszka MD [address] [place], [place] [id number] Social History Tobacco Use Types Packs/Day Years [...] Parkinsons, Sleep apnea Orders: with brace Nate Woodard, [facility] - 12/23/2018 11:06 EDT Visit Type, PT : Initial evaluation Patient Orders : Order Date Order Ordering MD 12/22/2018 17:40 Physical Therapy Eval and Treat Ordered By: HEIDE KAT MD-SNLanie Active Diagnoses : No Qualifying Diagnoses Admission Date : 12/22/2018 06:36 Personal Devices : Personal Devices No Devices Recorded Assistive Devices : Assistive Devices No Devices Recorded [facility] - 12/23/2018 10:57 EDT General Status [...] Treatment Time : 29 Minute(s) [facility] - 12/23/2018 11:06 EDT History and Environment Living Situation, Therapy : Home Patient Lives With : Spouse Persons Assisting Patient at Home : Spouse Persons Providing Information : Patient Home Equipment Therapy, PT : None Home Setup : One story Stairs : No Nate [facility] - 12/23/2018 11:06 EDT Prior Level of Function PT GRID Prior LOF Ambulation, Household : Independent Prior LOF Ambulation, Community : Independent Prior LOF Bed Mobility : Independent Prior LOF Toileting : Independent Prior LOF Transfer : Independent [facility] - 12/23/2018 11:06 EDT Intervention Summary O2 Pre-Intervention : 2L O2 NC SpO2 Pre-Intervention : 100 % O2 During Intervention : Room air SpO2 During Intervention : 97 % O2 Post-Intervention : Room air. Nsg notified SpO2 Post-Intervention : 96 % [facility] - 12/23/2018 11:06 EDT Lower Extremity RLE Active ROM : WFL LLE Active ROM : WFL [facility], [facility] - 12/23/2018 11:06 EDT Right Lower Extremity MMT Knee Flexion (0-140) : 4/good Knee Extension (0-0) : 4/good Ankle Dorsiflexion (0-20) : 4/good Ankle Plantarflexion (0-45) : 4/good [facility], [facility] - 12/23/2018 11:06 EDT Left Lower Extremity MMT Knee Flexion (0-140) : 4/good Knee Extension (0-0) : 4/good Ankle Dorsiflexion (0-20) : 4/good Ankle Plantarflexion (0-45) : 4/good [facility], [facility] - 12/23/2018 11:06 EDT Functional Mobility Mobility Grid Bed Roll Right : Rehab Moderate assistance Bed Scooting : Rehab Moderate assistance Supine to Sit : Rehab Moderate assistance Sit to Stand : Rehab Minimal assistance (Comment: x 2 [Nate Woodard, [facility] - 12/23/2018 12:10 EDT] ) Stand to Sit : Rehab Minimal assistance (Comment: x 2 [Nate Woodard, [facility] - 12/23/2018 12:10 EDT] ) Nate Woodard, [facility] - 12/23/2018 11:06 EDT Bed Mobility Scooting Device : Cloth under pad Bed Comment : Patient had difficulty with initation of scooting Nate Woodard, [facility] - 12/23/2018 11:06 EDT Gait Training/Assessment, [...] decreased, Shuffling, Stride length, decreased [facility], [facility] - 12/23/2018 11:06 EDT Cognition Assessment, PT Orientation : Oriented x 4 Follows Basic Command Assessment : Patient needs extended time to process command Nate Woodard [facility] - 12/23/2018 11:47 EDT Edu Topics Physical Therapy Education Grid Bed Mobility Training : Needs further teaching, Needs reinforcement Gait Training : Needs further teaching, Needs reinforcement Safety : Needs further teaching, Needs reinforcement Use of Assistive Device : Needs further teaching, Needs reinforcement Nate Woodard [facility] - 12/23/2018 11:47 EDT Indication Assesessment, PT Physical Therapy Indicated : Yes PT Problem List : Impaired, activities daily living, Impaired, bed mobility, Impaired, coordination/proprioception, Impaired, endurance tolerance, Impaired, gait, Impaired, joint mobility, Impaired, sitting balance, Impaired, standing balance, Impaired, transfers Potential Barriers To Therapy : Acuity of Illness Rehabilitation Potential : Good Nate Woodard [facility] - 12/23/2018 11:47 EDT Plan of Care, PT PT Tx Plan/Goals Established w Patient : Yes PT Frequency Rehab : Daily, twice (bid) PT Duration Rehab : Fourteen days PT Treatments Planned : Balance training, Bed mobility training, Caregiver training, Gait training, Pain management, Safety education, Transfer training Nate Woodard, [facility] - 12/23/2018 11:47 EDT Short Term Goals Mobility/Bed Mobility STG PT Grid Goal #1 Activity : Supine to sit Assist : Supervision or set-up Date to Meet : 12/30/2018 EDT Goal Status : Initial goal [facility] - 12/23/2018 11:47 EDT Evaluation Assistant Goals Mobility/Bed Mobility LTG PT Grid Goal #1 Activity : Sit to stand Cues : Minimum verbal cues Assist : Supervision or set-up Date to Meet : 01/06/2019 EDT Goal Status : Intial Goal Nate Woodard [facility] - 12/23/2018 11:47 EDT Ambulation LTG Grid Goal #1 Device : Walker, front wheel Distance : 200' Cues : Minimum verbal cues Assist : Supervision or set-up Date to Meet : 01/06/2019 EDT Goal Status : Intial Goal Nate Woodard [facility] - 12/23/2018 11:47 EDT Treatment Note [...] safety, and decrease caregiver burden. [facility], [facility] - 12/23/2018 11:47 EDT Plan for Treatment : Cont. PT. PT has reviewed and agrees with note. JACQUI MCGUIRE, PT - 12/23/2018 12:10 EDT Pain Assessment Pain Scaled Used : 0-10 Pain scale Pain Score Pre-Intervention : 0 Pain Score During-Intervention : 0 Pain Score Post-Intervention. : 0 Nate Woodard, [facility] - 12/23/2018 11:47 EDT Image [...] PT Eval Moderate Complexity : 1 Nate Wood[facility], [facility] - 12/23/2018 11:47 EDT documented in this encounter Plan of Treatment Not on file documented as of this encounter Visit Diagnoses Not on filedocumented in this encounter
--- OUTSIDE RECORDS SUMMARY | 2025-07-14 12:41 | XMS_ITS | Encounter Summary ---
Author Organization [employer] ([place], [place], [place], [place], [place]) Address [address] [place] [address] Care Team Providers Care Package Winder Name Role Phone Unavailable Primary Care Provider Unavailabl e Encounter Details Date Type Department Care Team (Late st Contact Info) Description 11/06/2019 Transcribed Document [facility] Neurology - [address] [employer] [facility] [address] [place] [address] Heide Kat MD [address] [place] [address] [address] [place] [address] Social History Tobacco Use Types [...] 36.4 \ Radiology Results (Last 48 hours) [id number] -- 11/02/2019 02:59 CR Fluoro in OR [...] Shah.Transcribed by Levon Pisano PA-C, Angelo (N), C Amadeo Camarillo T.I have personally viewed, interpreted and [...]
--- OUTSIDE RECORDS SUMMARY | 2025-07-14 12:41 | XMS_ITS | Encounter Summary ---
Author Organization [employer] ([place], [place], [place], [place], [place]) Address [address] [place] [address] Care Team Providers Care Info Print Press Operator Name Role Phone Unavailable Primary Care Provider Unavailabl e Encounter Details Date Type Department Care Team (Late st Contact Info) Description 11/06/2019 Transcribed Document [facility] Family Medicine [facility] [place] [address] ProviderAgnieszka MD [address] [place], [place] [phone] Social History Tobacco Use Types Packs/Day Years [...] as schedule permits. Notification : RNZee SARAH C. OTR/L - 11/06/2019 10:15 EDT documented in this encounter Plan of Treatment Not on file documented as of this encounter Visit Diagnoses Not on filedocumented in this encounter
--- OUTSIDE RECORDS SUMMARY | 2025-07-14 12:41 | XMS_ITS | Encounter Summary ---
Author Organization [employer] ([place], [place], [place], [place], [place]) Address [address] [place] [address] Care Team Providers Care Employee Relations Assistant Name Role Phone Unavailable Primary Care Provider Unavailabl e Encounter Details Date Type Department Care Team (Late st Contact Info) Description 11/06/2019 Transcribed Document [facility] Neurology - [address] [facility] [address] [place] [phone] [place] [address] [place] [address] [address] [place] [address] Social History Tobacco Use Types [...]
--- OUTSIDE RECORDS SUMMARY | 2025-07-14 12:41 | XMS_ITS | Encounter Summary ---
Author Organization [employer] ([place], [place], [place], [place], [place]) Address [address] [place] [address] Care Team Providers Care Curriculum And Instruction Specialist Name Role Phone Unavailable Primary Care Provider Unavailabl e Encounter Details Date Type Department Care Team (Late st Contact Info) Description 12/22/2018 Transcribed Document [facility] Neurology - [address] [employer] [facility] [address] [place] [address] Mark Akers MD [address] [facility] [address] [place] [address] Social History Tobacco Use Types [...] disease) of thoracic spine / SNOMED CT 3635659890 / Confirmed Scoliosis / SNOMED CT 837532251 / Confirmed Parkinson disease / SNOMED CT 58478693 / Confirmed History of obstructive sleep apnea / IMO [id number] / Confirmed Arthritis / SNOMED CT 3025180 / Confirmed Colitis / SNOMED CT 0582551594 / Confirmed, Active Problems (6) Arthritis Colitis [...] of back, RLE weakness. Integumentary: Warm, Dry, [place]. Neurologic: Alert, Oriented. Psychiatric: Cooperative, Appropriate mood [...]
--- OUTSIDE RECORDS SUMMARY | 2025-07-14 12:41 | XMS_ITS | Encounter Summary ---
Author Organization [employer] ([place], [place], [place], [place], [place]) Address [address] [place] [address] Care Team Providers Care Scrubbing Machine Operator Name Role Phone Unavailable Primary Care Provider Unavailabl e Encounter Details Date Type Department Care Team (Late st Contact Info) Description 12/22/2018 Transcribed Document [facility] [address] [facility] [address] [place] [address] Mark Akers MD [address] [facility] [address] [place] [address] Social History Tobacco Use Types [...] CT scan with stereotactic navigation using the [employer]. SURGEON: Mark Akers MD HUB INVENTORY SPECIALIST: Bing Colon TYPE OF ANESTHESIA: GEA. DESCRIPTION OF PROCEDURE IN DETAIL: Once consent was noted to be on chart, Mr. Cuevas was taken to the operating room. He was anesthetized and placed into the prone position on a Sma spine frame. All pressure points were carefully [...] to iliac trajectory. With all instrument the documistic system was utilized. With all screws in [...] M.D. CC2: Dr. Faustino Jones; [address] , [facility], [address], [place] [address] documented in this encounter Plan of Treatment Not on file documented as of this encounter Visit Diagnoses Not on filedocumented in this encounter
--- OUTSIDE RECORDS SUMMARY | 2025-07-14 12:41 | XMS_ITS | Encounter Summary ---
Author Organization [employer] ([place], [place], [place], [place], [place]) Address [address] [place] [address] Care Team Providers Care Chemical Laboratory Chief Name Role Phone Unavailable Primary Care Provider Unavailabl e Encounter Details Date Type Department Care Team (Late st Contact Info) Description 12/22/2018 Transcribed Document [facility] Family Medicine [facility] [place] [address] ProviderAgnieszka MD [address] [place], [place] [address] Social History Tobacco Use Types Packs/Day Years Used Date Smoking Tobacco: Never Assessed Sex and Gender Information Value Date Recorded Sex Assigned at Not on file Legal Sex Male 2:38 PM CDT Gender Identity Not on file Sexual Orientation Not on file documented as of this encounter Miscellaneous Notes * [employer] Conversion Note - Historical ProviderMD - 12/22/2018 1:14 PM CDT [facility] Main OR PACU Summary Primary Physician: HEIDE KAT MD-SN Finalized Date/Time: 12/22/18 21:02:24 Pt. Name: SIMBA MAYEN JR/Sex: 1950 Male Med Rec #: [id number] Physician: HEIDE KAT MD-SNU Financial #: [id number] Pt. Type: I Room/Bed: 63/1 Admit/Disch: 12/22/18 06:36:00 - Institution: [facility] Main OR PACU I Case Times Entry 1 In PACU I 12/22/18 18:11:00 Ready for PACU 12/22/18 20:27:00 Discharge Discharge from PACU 12/22/18 20:27:00 I Last Modified By: DARYN DOHERYT RN 12/22/18 21:02:02 Finalized By: DARYN DOHERTY RN Document Signatures Signed By: DARYN DOHERTY RN 12/22/18 21:02 documented in this encounter Plan of Treatment Not on file documented as of this encounter Visit Diagnoses Not on filedocumented in this encounter
--- OUTSIDE RECORDS SUMMARY | 2025-07-14 12:41 | XMS_ITS | Encounter Summary ---
Author Organization [employer] ([place], [place], [place], [place], [place]) Address [address] [place] [address] Care Team Providers Care Patient Service Coordinator Name Role Phone Unavailable Primary Care Provider Unavailabl e Encounter Details Date Type Department Care Team (Late st Contact Info) Description 12/22/2018 Transcribed Document [facility] [facility] [place] [address] ProviderAgnieszka MD [address] [place], [place] [phone] Social History Tobacco Use Types Packs/Day Years [...]
--- OUTSIDE RECORDS SUMMARY | 2025-07-14 12:41 | XMS_ITS | Encounter Summary ---
Author Organization [employer] ([place], [place], [place], [place], [place]) Address [address] [place] [address] Care Team Providers Care Lead Cook Name Role Phone Unavailable Primary Care Provider Unavailabl e Encounter Details Date Type Department Care Team (Late st Contact Info) Description 11/06/2019 Transcribed Document [facility] [place] [facility] [place] [address] ProviderAgnieszka MD [address], [place] [phone] Social History Tobacco Use Types Packs/Day Years Used Date Smoking Tobacco: Never Assessed Sex and Gender Information Value Date Recorded Sex Assigned at Not on file Legal Sex Male 2:38 PM CDT Gender Identity Not on file Sexual Orientation Not on file documented as of this encounter Miscellaneous Notes * Cerner Conversion Note - Historical ProviderMD - 11/06/2019 1:02 PM CDT [facility] Main OR PACU Summary Primary Physician: HEIDE KAT MD-U Finalized Date/Time: 11/06/19 15:35:13 Pt. Name: SIMBA MAYEN JR/Sex: 1950 Male Med Rec #: [id number] Physician: LORENA SAGASTUME MD-INT Financial #: [id number] Pt. Type: I Room/Bed: [facility]/ Admit/Disch: 11/02/19 02:59:00 - Institution: [facility] Main OR PACU I Case Times Entry 1 In PACU I 11/06/19 14:45:00 Ready for PACU 11/06/19 15:20:00 Discharge Discharge from PACU 11/06/19 15:20:00 I Last Modified By: MOE PAIGE RN 11/06/19 15:34:56 [facility] Main OR PACU I Case Times Audit 11/06/19 15:34:56 Technical Programs Manager: KURTIS Modifier: KURTIS <+> 1 Ready for PACU Discharge <+> 1 Discharge from PACU I [facility] Main OR PACU Acuity Entry 1 Start Time 11/06/19 14:45:00 Stop Time 11/06/19 15:20:00 Acuity Level [facility] PACU Acuity I Last Modified By: MOE PAIGE RN 11/06/19 15:35:11 [facility] Main OR PACU Acuity Audit 11/06/19 15:35:11 Technical Programs Manager: KURTIS Modifier: KURTIS <+> 1 Stop Time Finalized By: MOE PAIGE, RN Document Signatures Signed By: MOE PAIGE RN 11/06/19 15:35 Electronically signed by [facility] Conversion Closet Builder Cerner at 11/12/2022 9:29 PM CDT documented in this encounter Plan of Treatment Not on file documented as of this encounter Visit Diagnoses Not on filedocumented in this encounter
--- OUTSIDE RECORDS SUMMARY | 2025-07-14 12:42 | XMS_ITS | Encounter Summary ---
Author Organization [employer] ([place], [place], [place], [place], [place]) Address [address] [place] [address] Care Team Providers Care Grain I Farmworker Name Role Phone Unavailable Primary Care Provider Unavailabl e Encounter Details Date Type Department Care Team (Late st Contact Info) Description 11/06/2019 Transcribed Document [facility] Family Medicine [facility] [place] [address] ProviderAgnieszka MD [address] [place], [place] [phone] Social History Tobacco Use Types Packs/Day Years [...]
--- OUTSIDE RECORDS SUMMARY | 2025-07-14 12:42 | XMS_ITS | Encounter Summary ---
Author Organization [employer] ([place], [place], [place], [place], [place]) Address [address] [place] [address] Care Team Providers Care Recycle Worker Name Role Phone Unavailable Primary Care Provider Unavailabl e Encounter Details Date Type Department Care Team (Late st Contact Info) Description 11/05/2019 Transcribed Document [facility] [place] Medicine [facility] [place] [address] ProviderAgnieszka MD [address] [place], [place] [phone] Social History Tobacco Use Types Packs/Day Years [...] Intervention Information: acetaminophen Performed by Sonya Quezada, Harness Fitter-Student Nurse on 11/05/2019 17:08:00 EDT acetaminophen,650mg Oral [...]
--- OUTSIDE RECORDS SUMMARY | 2025-07-14 12:42 | XMS_ITS | Encounter Summary ---
Author Organization [employer] ([place], [place], [place], [place], [place]) Address [address] [place] [address] Care Team Providers Care Aircraft Tool Maker Name Role Phone Unavailable Primary Care Provider Unavailabl e Encounter Details Date Type Department Care Team (Late st Contact Info) Description 11/05/2019 Transcribed Document [facility] Family [facility] [place] [address] ProviderAgnieszka MD [address] [place], [place] [phone] Social History Tobacco Use Types Packs/Day Years Used Date Smoking Tobacco: Never Assessed Sex and Gender Information Value Date Recorded Sex Assigned at Not on file Legal Sex Male 2:38 PM CDT Gender Identity Not on file Sexual Orientation Not on file documented as of this encounter Miscellaneous Notes * [employer]ner Conversion Note - Historical ProviderMD - 11/05/2019 9:05 AM CDT Patient: SIMBA MAYEN JR Age: 69 years Sex: Male : 1950 Associated Diagnoses: None Author: BROOKS GORE, [facility] 69yoM with Low Back Pain - R/O Osteo PMH: 12/13 PLIF T10-S1, Parkinson's, 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 Continue vanc 1.25gm IV q12h) 4/6 CT Lumbar / Thoracic - CT Spine... [...] Brooks Gore RPh Electronically signed by Taryn [facility] Conversion Electric Cell Tender Cerner at 11/12/2022 9:50 PM CDT documented in this encounter Plan of Treatment Not on file documented as of this encounter Visit Diagnoses Not on filedocumented in this encounter
--- OUTSIDE RECORDS SUMMARY | 2025-07-14 12:42 | XMS_ITS | Encounter Summary ---
Author Organization [employer] ([place], [place], [place], [place], [place]) Address [address] [place] [address] Care Team Providers Care Emergency Department Rn Name Role Phone Unavailable Primary Care Provider Unavailabl e Encounter Details Date Type Department Care Team (Late st Contact Info) Description 11/06/2019 Transcribed Document [facility] [place] Family Medicine [facility] [place] [address] ProviderAgnieszka MD [address] [place], [place] [phone] Social History Tobacco Use Types Packs/Day Years Used Date Smoking Tobacco: Never Assessed Sex and Gender Information Value Date Recorded Sex Assigned at Not on file Legal Sex Male 2:38 PM CDT Gender Identity Not on file Sexual Orientation Not on file documented as of this encounter Miscellaneous Notes * [employer] Conversion Note - Historical ProviderMD - 11/06/2019 2:00 AM CDT Java Developer Analyst Details Entered On: 11/06/2019 1:59 EDT Performed [...]
--- OUTSIDE RECORDS SUMMARY | 2025-07-14 12:42 | XMS_ITS | Encounter Summary ---
Author Organization [employer] ([place], [place], [place], [place], [place]) Address [address] [place] [address] Care Team Providers Care Supervisor Housecleaner Name Role Phone Unavailable Primary Care Provider Unavailabl e Encounter Details Date Type Department Care Team (Late st Contact Info) Description 11/06/2019 Transcribed Document [facility] [place] [facility] [place] [address] ProviderAgnieszka MD [address] [place], [place] [phone] Social History Tobacco Use Types Packs/Day Years [...] Performed On: 11/06/2019 9:22 EDT by LILA PIERCE, PT Attempt to Treat Unable to Treat [...]
--- OUTSIDE RECORDS SUMMARY | 2025-07-14 12:42 | XMS_ITS | Encounter Summary ---
Author Organization [employer] ([place], [place], [place], [place], [place]) Address [address] [place] [address] Care Team Providers Care Lowerator Operator Name Role Phone Unavailable Primary Care Provider Unavailabl e Encounter Details Date Type Department Care Team (Late st Contact Info) Description 11/05/2019 Transcribed Document [facility] [place] [facility] [place] [address] ProviderAgnieszka MD [address] [place], [place] [phone] Social History Tobacco Use Types Packs/Day Years [...]
--- OUTSIDE RECORDS SUMMARY | 2025-07-14 12:42 | XMS_ITS | Encounter Summary ---
Author Organization [employer] ([place], [place], [place], [place], [place]) Address [address] [place] [address] Care Team Providers Care Medical Education Manager Name Role Phone Unavailable Primary Care Provider Unavailabl e Encounter Details Date Type Department Care Team (Late st Contact Info) Description 11/06/2019 Transcribed Document [facility] Neurology - [address] [employer] [facility] [address] [place] [phone] Mark Akers MD [address] [facility] [address] [place] [address] Social History Tobacco Use Types [...] LOSS: 150 mL. DRAINS: Sam-Burger. COMPLICATIONS: None. /[id number] Mark Akers MD MPT/AQ / MPT / MODL /[id number] documented in this encounter Plan of Treatment Not on file documented as of this encounter Visit Diagnoses Not on filedocumented in this encounter
--- OUTSIDE RECORDS SUMMARY | 2025-07-14 12:42 | XMS_ITS | Encounter Summary ---
Author Organization [employer] ([place], [place], [place], [place], [place]) Address [address] [place] [address] Care Team Providers Care Centrifugal Supervisor Name Role Phone Unavailable Primary Care Provider Unavailabl e Encounter Details Date Type Department Care Team (Late st Contact Info) Description 11/05/2019 Transcribed Document [facility] [place] [facility] [place] [address] ProviderAgnieszka MD [address], [place] [address] Social History Tobacco Use Types Packs/Day Years Used Date Smoking Tobacco: Never Assessed Sex and Gender Information Value Date Recorded Sex Assigned at Not on file Legal Sex Male 2:38 PM CDT Gender Identity Not on file Sexual Orientation Not on file documented as of this encounter Miscellaneous Notes * Cerner Conversion Note - Agnieszka Centeno MD - 11/05/2019 8:06 AM CDT Patient: SIMBA [...] MiraLax: 17 Gram, Oral, Daily, PRN: Constipation [place] 10 mg-325 mg oral tablet: 1 Tab, [...] mL: 2 Gram, 100 mL/Hr, IV Piggyback, [id number] hydrALAZINE: 10 mg, IV Push, Q6H, PRN: Hypertension lactobacillus acidophilus: 1 Cap, Oral, Daily lidocaine 1% preservative-free injectable solution: 0.5 mL, IntraDermal, 1-Time morphine: 2 mg, IV Push, Q2H, PRN: Pain (Severe 7-10) sodium chloride 0.9% injectable solution: 10 mL, IV Push, Q8H vancomycin + Sodium Chloride 0.9% intravenous solution 250 mL: 1,250 mg, 250 mL/Hr, IV Piggyback, [id number] Pending Complete fentaNYL: 25 mcg, IV Push, Q10Min Documented Medications Documented Azilect 1 mg oral tablet: 1 Tab, Oral, Daily, 30 Tab, 0 Refill(s) Remicade: 10 mg/kg, IntraVENous, [id number], for Ulcerative Colitis; Last dose: 09/29/2019, 0 [...] 0.9% 50 mL 2 Gram, IV Piggyback, [id number] docusate sodium 100 mg cap 100 mg 1 Cap, Oral, BID lactobacillus acidophilus cap 1 Cap, Oral, Daily lidocaine 1% *PF* inj 2 mL 0.5 mL, IntraDermal, 1-Time rasagiline 1 mg tab 1 mg 1 Tab, Oral, Daily vancomycin + NaCl 0.9% 250 mL 1,250 mg, IV Piggyback, [id number] Continuous: (1) lactated ringers 1,000 mL 1,000 [...] All Problems Parkinson disease / SNOMED CT 97786868 / Confirmed Scoliosis / SNOMED CT 134441698 / Confirmed Colitis / SNOMED CT 2695644968 / Confirmed Arthritis / SNOMED CT 8883574 / Confirmed 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
--- OUTSIDE RECORDS SUMMARY | 2025-07-14 12:42 | XMS_ITS | Encounter Summary ---
Author Organization [employer] ([place], [place], [place], [place], [place]) Address [address] [place] [address] Care Team Providers Care Dance Critic Name Role Phone Unavailable Primary Care Provider Unavailabl e Encounter Details Date Type Department Care Team (Late st Contact Info) Description 11/05/2019 Transcribed Document [facility] [place] [facility] [place] [address] ProviderAgnieszka MD [address] [place], [place] [id number] Social History Tobacco Use Types Packs/Day Years [...]
--- OUTSIDE RECORDS SUMMARY | 2025-07-14 12:42 | XMS_ITS | Encounter Summary ---
Author Organization [employer] ([place], [place], [place], [place], [place]) Address [address] [place] [address] Care Team Providers Care Supervisor Doping Name Role Phone Unavailable Primary Care Provider Unavailabl e Encounter Details Date Type Department Care Team (Late st Contact Info) Description 12/16/2018 Transcribed Document [facility] [place] [facility] [place] [address] ProviderAgnieszka MD [address], [place] [id number] Social History Tobacco Use Types Packs/Day Years [...] Source : Measured Height Entry Format : [place] Height, Feet : 5 ft(Converted to: 152 cm, 60 Inch) Height, Inches : 9 Inch(Converted to: 0 ft 9 Inch, 22.86 cm) Clinical Height : 175.26 cm Weight Source : Standing scale Weight Entry Format : [place] Clinical Dosing Weight : 84.55 kg Weight, Pounds : 186 lb Body Surface Area (BSA) : 2 m2 Body Mass Index : 27.5 kg/m2 (HI) [place] Body Weight : 70 kg MILTON GAMEZ RN - 12/16/2018 12:13 EDT Electronically signed by Gay Centeno Conversion [employer] Operator Cerner at 11/12/2022 9:46 PM CDT documented in this encounter Plan of Treatment Not on file documented as of this encounter Visit Diagnoses Not on filedocumented in this encounter
--- OUTSIDE RECORDS SUMMARY | 2025-07-14 12:42 | XMS_ITS | Encounter Summary ---
Author Organization [employer] ([place], [place], [place], [place], [place]) Address [address] [place] [address] Care Team Providers Care Senior Computer Specialist Name Role Phone Unavailable Primary Care Provider Unavailabl e Encounter Details Date Type Department Care Team (Late st Contact Info) Description 11/05/2019 Transcribed Document [facility] [place] [facility] [place] [address] ProviderAgnieszka MD [address] [place], [place] [id number] Social History Tobacco Use Types Packs/Day Years Used Date Smoking Tobacco: Never Assessed Sex and Gender Information Value Date Recorded Sex Assigned at Not on file Legal Sex Male 2:38 PM CDT Gender Identity Not on file Sexual Orientation Not on file documented as of this encounter Miscellaneous Notes * Cerner Conversion Note - Historical ProviderMD - 11/05/2019 12:46 PM CDT On [...] : No SAL BERRIOS, RN-Care Management - 11/05/2019 12:46 EDT Narrative Progress Note Narrative Progress Note : Pt off floor since this am for thoracic extension with arrow procedure. CM to cont following, and safe plans of discharge is STR when medically cleared to be released. [facility] following Historical Progress Note : Elvia stated that [facility] is following for patient placement. Patient is scheduled for surgery Friday11/05/19. Cm will continue to follow. ELKE VELÁZQUEZ, Android Architect-Warp Tester - 11/04/19 13:06:08 Patient is scheduled for an MRI on and surgery on Friday. He reported wanting to go to [facility]. Cm sent referral packet to [facility]. ELKE VELÁZQUEZ, Android Architect-Warp Tester - 11/03/19 14:33:22 SAL BERRIOS, RN-Care Management - 11/05/2019 12:46 EDT documented in this encounter Plan of Treatment Not on file documented as of this encounter Visit Diagnoses Not on filedocumented in this encounter
--- OUTSIDE RECORDS SUMMARY | 2025-07-14 12:42 | XMS_ITS | Encounter Summary ---
Author Organization [employer] ([place], [place], [place], [place], [place]) Address [address] [place] [address] Care Team Providers Care Dermatology Nurse Name Role Phone Unavailable Primary Care Provider Unavailabl e Encounter Details Date Type Department Care Team (Late st Contact Info) Description 11/05/2019 Transcribed Document [facility] [place] [address] [place] [address] ProviderAgnieszka MD [address] [place], [place] [address] Social History Tobacco Use Types Packs/Day Years [...]
--- OUTSIDE RECORDS SUMMARY | 2025-07-14 12:42 | XMS_ITS | Encounter Summary ---
Author Organization [employer] ([place], [place], [place], [place], [place]) Address [address] [place] [address] Care Team Providers Care Wealth Management Director Name Role Phone Unavailable Primary Care Provider Unavailabl e Encounter Details Date Type Department Care Team (Late st Contact Info) Description 11/06/2019 Transcribed Document [facility] [place] [facility] [place] [address] ProviderAgnieszka MD [address] [place], [place] [address] Social History Tobacco Use Types Packs/Day Years [...]
--- OUTSIDE RECORDS SUMMARY | 2025-07-14 12:42 | XMS_ITS | Encounter Summary ---
Author Organization [employer] ([place], [place], [place], [place], [place]) Address [address] [place] [address] Care Team Providers Care Assembler Fluorescent Lights Name Role Phone Unavailable Primary Care Provider Unavailabl e Encounter Details Date Type Department Care Team (Late st Contact Info) Description 11/05/2019 Transcribed Document [facility] [place] [facility] [place] [address] ProviderAgnieszka MD [address], [place] [id number] Social History Tobacco Use Types Packs/Day Years [...] JR, D.O.B./Sex: 1950 Male Med Rec #: [id number] Physician: LORENA SAGASTUME MD-INT Financial #: [id number] Pt. Type: I Room/Bed: [facility]/ Admit/Disch: 11/02/19 02:59:00 - Institution: [facility] IntraOp Case Attendance Entry 1 Entry 2 Entry 3 Case Attendee HEIDE KAT WASSON, SANDRA D, RN COMPTON, TRACY, RN MD-DIVYA Role Performed Surgeon/Proceduralist, Plastics Seasoner Operator, First Plastics Seasoner Operator, First First Time In 11/05/19 08:26:00 [...] COURTNEY, PA-INT Role Performed Scrub, First Physician medical assistant DOORMAKER/Nurse Reducing System Operator Time In 11/05/19 08:26:00 11/05/19 08:26:00 11/05/19 08:26:00 Time Out 11/05/19 12:09:00 11/05/19 12:09:00 11/05/19 12:09:00 Procedure Lumbar Fusion Posterior Lumbar Fusion Posterior Lumbar Fusion Posterior 3 Level 3 Level 3 Level Other Attendee Superficial Wound Closed By: Last Modified By: ARCHIE BENITEZ RN WASSON, SANDRA D, ARCHIE BROWN RN 11/05/19 12:08:12 11/05/19 12:08:12 11/05/19 12:08:12 Entry 7 Entry 8 Entry 9 Case Attendee XOCHITL ALCAZAR, OTHER, ATTENDEE #1 Claribel Monteiro MD-ERYN Vocational Ed Instructor Role Performed Anesthesiologist of Vendor Intellectual Property Manager Record Time In 11/05/19 08:26:00 11/05/19 08:26:00 [...] MORA, RN MARLEN SHETH MD-ERYN Role Performed Plastics Seasoner Operator, Second Plastics Seasoner Operator, First Anesthesiologist Time In 11/05/19 09:25:00 11/05/19 11:00:00 11/05/19 11:16:00 Time Out 11/05/19 09:35:00 11/05/19 11:40:00 11/05/19 12:04:00 Procedure Lumbar Fusion Posterior Lumbar Fusion Posterior Lumbar Fusion Posterior 3 Level 3 Level 3 Level Other Attendee RN [facility] DOORMAKER LUNCH RELIEF Superficial Wound Closed By: Last Modified By: ARCHIE BENITEZ, ARCHIE BROWN, ARCHIE BROWN, MY 11/05/19 09:38:14 11/05/19 11:54:30 11/05/19 11:54:30 [facility] IntraOp Case Attendance Audit 11/05/19 12:08:12 Job Putter Up And Ticket Preparer: WASSONSY Modifier: WASSONSY 1 <+> Time Out [...] Lumbar Fusion Posterior 3 Level 11/05/19 12:07:32 Job Putter Up And Ticket Preparer: WASSONSY Modifier: WASSONSY 12 <+> Time Out 12 <*> Procedure Lumbar Fusion Posterior 3 Level 11/05/19 11:54:30 Job Putter Up And Ticket Preparer: WASSONSY Modifier: WASSONSY 9 <+> Time Out 9 <*> Procedure Lumbar Fusion Posterior 3 Level <+> 11 Case Attendee <+> 11 Role Performed <+> 11 Time In <+> 11 Time Out <+> 11 Procedure <+> 11 Other Attendee <+> 12 Case Attendee <+> 12 Role Performed <+> 12 Time In <+> 12 Procedure <+> 12 Other Attendee 11/05/19 09:38:14 Job Putter Up And Ticket Preparer: WASSONSY Modifier: WASSONSY <+> 10 Case Attendee <+> 10 Role Performed <+> 10 Time In <+> 10 Time Out <+> 10 Procedure 11/05/19 09:35:41 Job Putter Up And Ticket Preparer: WASSONSY Modifier: WASSONSY 1 <*> Procedure Lumbar [...] HOSPITAL IntraOp Case Times Audit 11/05/19 12:07:57 Job Putter Up And Ticket Preparer: BRADYCM Modifier: WASSONSY <+> 1 Out Room Time <+> 1 Stop Time 11/05/19 11:39:51 Job Putter Up And Ticket Preparer: WASSONSY Modifier: BRADYCM <+> 1 Stop Time 11/05/19 09:36:28 Job Putter Up And Ticket Preparer: WASSONSY Modifier: WASSONSY <+> 1 Start Time [facility] IntraOp Cautery Entry 1 Entry 2 ESU Identification Cautery Type Monopolar ESU BiPolar ESU Cautery Type Comments ID Number [id number] ID Type Hospital Number Hospital Number Cautery [...] [facility] Communication Audit 11/05/19 09:38:20 Job Putter Up And Ticket Preparer: NIKI Modifier: WASSONSY 1 <*> Communication By ARCHIE BENITEZ RN [facility] IntraOp Counts Verification [...] IntraOp Departure from OR Audit 11/05/19 12:07:42 Job Putter Up And Ticket Preparer: WASSONSY Modifier: WASSONSY <+> 1 Handoff Reported to 11/05/19 12:02:19 Job Putter Up And Ticket Preparer: WASSONSY Modifier: WASSONSY 1 <*> Patient Transport [...] Yes Assessment Complete Fire Risk ARCHIE BENITEZ digital strategy specialist Verified By Fire Risk 11/05/19 08:25:00 Assessment Verified Date/Time Fire Risk Standard Fire Yes Safety Precautions Followed Last Modified By: ARCHIE BENITEZ RN 11/05/19 09:40:43 [facility] IntraOp General Case Planimeter Operator 1 Case Information OR OR 10 [facility] [...] IntraOp General Case Data Audit 11/05/19 10:24:22 Job Putter Up And Ticket Preparer: NIKI Modifier: NIKI <+> 1 Preop Diagnosis [facility] IntraOp Implant Log Entry 1 Entry 2 Entry 3 Type Implant (Synthetic) Implant (Synthetic) Implant (Synthetic) Implant Log Implant Type Bone Cement Hardware Hardware Tissue Implant Type Implant CEMENT SPINAL SCR SPNE ALIN FIX FEN SCR SPNE ALIN FIX FEN Identification [id number] Description Implant Quantity 2 4 4 Implant Site OP SITE OPSITE OPSITE Implant Identification Model Number Implant Identification Serial Number Implant [id number] Identification Lot Number Implant J&J:Depuy:Depuy Spine J&J:Depuy:Depuy Spine J&J:Depuy:Depuy Spine Identification Community Relations Officer Name: Implant [id number] [id number] [id number] Identification Catalog Number Implant Size Implant Has an Yes Expiration Date Implant Expiration 10/25/21 Date Wasted Radioactive Material Time Implanted Tissue Implant Continue for Tissue Implant Documentation Tissue Identification Number Graft Prep Per Community Relations Officer Instructions: Tissue Preparation Method: Reconstitution Solution: Reconstitution Solution Lot Number Reconstitution Solution Expiration Date: Thawing Solution Thawing Solution Lot Number Thawing Solution Expiration Date Preparation Materials, Other Preparation Materials, Other Lot Number Preparation Materials, Other Expiration Date Tissue Prepared/Processed By Community Relations Officer Paperwork Completed Implant Type Comment Last Modified By: ANTON MORA RN BRADY, CHRISTINA M, RN WASSON, SANDRA D, RN 11/05/19 11:44:19 11/05/19 11:44:19 11/05/19 11:13:15 Entry 4 Entry 5 Entry 6 Type Implant (Synthetic) Implant (Synthetic) Implant (Synthetic) Implant Log Implant Type Hardware Hardware Hardware Tissue Implant Type Implant MIS SUNNI PLY SCRW SET RAE CONN EXPEDIUM 200MM RAE SPINE EXPEDIUM Identification [id number] Description Implant Quantity 14 2 1 Implant Site OPSITE OPSIE OPSTE Implant Identification Model Number Implant Identification Serial Number Implant Identification Lot Number Implant J&J:Depuy:Depuy Spine J&J:Depuy:Depuy Spine J&J:Depuy:Depuy Spine Identification Community Relations Officer Name: Implant [id number] [id number] Identification Catalog Number Implant Size Implant Has an Expiration Date Implant Expiration Date Wasted Radioactive Material Time Implanted Tissue Implant Continue for Tissue Implant Documentation Tissue Identification Number Graft Prep Per Community Relations Officer Instructions: Tissue Preparation Method: Reconstitution Solution: Reconstitution Solution Lot Number Reconstitution Solution Expiration Date: Thawing Solution Thawing Solution Lot Number Thawing Solution Expiration Date Preparation Materials, Other Preparation Materials, Other Lot Number Preparation Materials, Other Expiration Date Tissue Prepared/Processed By Community Relations Officer Paperwork Completed Implant Type Comment Last Modified By: ARCHIE BENITEZ, ARCHIE BROWN, ARCHIE BROWN RN 11/05/19 11:13:15 11/05/19 11:13:15 11/05/19 11:13:15 Entry 7 Entry 8 Type Implant (Synthetic) Implant (Synthetic) Implant Log Implant Type Hardware Hardware Tissue Implant Type Implant CONN VARIABLE CONN [place] BAND Identification OFFSET-[id number] OPEN/CLOSE-[id number] Description Implant Quantity 2 2 Implant Site OPSITE OPSITE Implant Identification Model Number Implant Identification Serial Number Implant Identification Lot Number Implant J&J:Depuy:Depuy Spine J&J:Depuy:Depuy Spine Identification Community Relations Officer Name: Implant [id number] [id number] Identification Catalog Number Implant Size Implant Has an Expiration Date Implant Expiration Date Wasted Radioactive Material Time Implanted Tissue Implant Continue for Tissue Implant Documentation Tissue Identification Number Graft Prep Per Community Relations Officer Instructions: Tissue Preparation Method: Reconstitution Solution: Reconstitution Solution Lot Number Reconstitution Solution Expiration Date: Thawing Solution Thawing Solution Lot Number Thawing Solution Expiration Date Preparation Materials, Other Preparation Materials, Other Lot Number Preparation Materials, Other Expiration Date Tissue Prepared/Processed By Community Relations Officer Paperwork Completed Implant Type Comment Last Modified By: ARCHIE BENITEZ, ARCHIE BROWN RN 11/05/19 11:13:15 11/05/19 11:13:15 [facility] IntraOp Implant Log Audit 11/05/19 11:44:19 Job Putter Up And Ticket Preparer: NIKI Modifier: BRADYCM 1 <*> Implant Identification Description CEMENT SPINAL CONFIDENCE-[id number] 1 <*> Implant Identification Lot Number [id number] 1 <*> Implant Identification Community Relations Officer J&J:Depuy:Depuy Spine Name: 1 <*> Implant Expiration Date 10/25/21 1 <*> Implant Site OP SITE 1 <*> Implant Quantity 2 1 <*> Implant Identification Catalog 104 Number 1 <*> Implant Type Bone Cement 1 <*> Implant Has an Expiration Date Yes 1 <*> Type Implant (Synthetic) 2 <*> Implant Identification Description SCR SPNE ALIN FIX FEN [id number] 2 <*> Implant Identification Community Relations Officer J&J:Depuy:Depuy Spine Name: 2 <*> Implant Site OPSITE 2 <*> Implant Quantity 4 2 <*> Implant Identification Catalog [id number] Number 2 <*> Implant Type Hardware 2 <*> Type Implant (Synthetic) 3 <*> Implant Identification Description SCR SPNE ALIN FIX FEN [id number] 3 <*> Implant Identification Community Relations Officer J&J:Depuy:Depuy Spine Name: 3 <*> Implant Site OPSITE 3 <*> Implant Quantity 4 3 <*> Implant Identification Catalog 9877-40-062 Number 3 <*> Implant Type Hardware 3 <*> Type Implant (Synthetic) 4 <*> Implant Identification Description MIS SUNNI PLY SCRW SET -[id number] 4 <*> Implant Identification Community Relations Officer J&J:The Auto Vault:The Auto Vault Spine Name: 4 <*> Implant Site OPSITE 4 <*> Implant Quantity 14 4 <*> Implant Identification Catalog 60002-08-643 Number 4 <*> Implant Type Hardware 4 <*> Type Implant (Synthetic) 5 <*> Implant Identification Description 0524-64-611 5 <+> Implant Identification Community Relations Officer Name: 5 <+> Implant Site 5 <+> Implant Quantity 5 <+> Implant Identification Catalog Number 5 <*> Implant Type Hardware 5 <*> Type Implant (Synthetic) 6 <*> Implant Identification Description RAE CONN EXPEDIUM 200MM -[id number] 6 <*> Implant Identification Community Relations Officer J&J:Depuy:Depuy Spine Name: 6 <*> Implant Site OPSIE 6 <*> Implant Quantity 2 6 <*> Implant Identification Catalog [id number] Number 6 <*> Implant Type Hardware 6 <*> Type Implant (Synthetic) 7 <*> Implant Identification Description RAE SPINE EXPEDIUM [id number] 7 <*> Implant Identification Community Relations Officer J&J:Depuy:Depuy Spine Name: 7 <*> Implant Site OPSTE 7 <*> Implant Quantity 1 7 <*> Implant Identification Catalog [id number] Number 7 <*> Implant Type Hardware 7 <*> Type Implant (Synthetic) 8 <*> Implant Identification Description CONN VARIABLE OFFSET-240345 8 <*> Implant Identification Community Relations Officer J&J:Elmeruy:Elmeruy Spine Name: 8 <*> Implant Site OPSITE 8 <*> Implant Quantity 2 8 <*> Implant Identification Catalog 5686-78-397 Number 8 <*> Implant Type Hardware 8 <*> Type Implant (Synthetic) 9 <-> Implant Identification Description CONN WEDDING BAND OPEN/CLOSE-333511 9 <-> Implant Identification Community Relations Officer J&J:Elmeruy:Elmeruy Spine Name: 9 <-> Implant Site OPSITE 9 <-> Implant Quantity 2 9 <-> Implant Identification Catalog [id number] Number 9 <-> Implant Type Hardware 9 <-> Type Implant (Synthetic) 11/05/19 11:13:15 Job Putter Up And Ticket Preparer: WASSONSY Modifier: WASSONSY <+> 2 Implant Identification Description <+> 2 Implant Identification Community Relations Officer Name: <+> 2 Implant Site <+> 2 Implant Quantity <+> 2 Implant Identification Catalog Number <+> 2 Implant Type <+> 2 Type <+> 3 Implant Identification Description <+> 3 Implant Identification Community Relations Officer Name: <+> 3 Implant Site <+> 3 Implant Quantity <+> 3 Implant Identification Catalog Number <+> 3 Implant Type <+> 3 Type <+> 4 Implant Identification Description <+> 4 Implant Identification Community Relations Officer Name: <+> 4 Implant Site <+> 4 Implant Quantity <+> 4 Implant Identification Catalog Number <+> 4 Implant Type <+> 4 Type <+> 5 Implant Identification Description <+> 5 Implant Type <+> 5 Type <+> 6 Implant Identification Description <+> 6 Implant Identification Community Relations Officer Name: <+> 6 Implant Site <+> 6 Implant Quantity <+> 6 Implant Identification Catalog Number <+> 6 Implant Type <+> 6 Type <+> 7 Implant Identification Description <+> 7 Implant Identification Community Relations Officer Name: <+> 7 Implant Site <+> 7 Implant Quantity <+> 7 Implant Identification Catalog Number <+> 7 Implant Type <+> 7 Type <+> 8 Implant Identification Description <+> 8 Implant Identification Community Relations Officer Name: <+> 8 Implant Site <+> 8 Implant Quantity <+> 8 Implant Identification Catalog Number <+> 8 Implant Type <+> 8 Type <+> 9 Implant Identification Description <+> 9 Implant Identification Community Relations Officer Name: <+> 9 Implant Site <+> 9 [...] Intraoperative DRESSING TO COCCYX AREA Assessment Comment SHINGLE CUTTER OR Last Modified By: ARCHIE BENITEZ RN 11/05/19 09:41:35 [facility] IntraOp Intraoperative Assessment Audit 11/05/19 10:40:46 Job Putter Up And Ticket Preparer: NIKI Modifier: NIKI <+> 1 Intraoperative Assessment Comment [facility] IntraOp Intraoperative Equipment Entry 1 Type Equipment Equipment Equipment Ganesh Suction System ID Number [id number] Setting 200 MM HG Intraop Monitoring Electrocardiogram Five lead placement (ECG) Electrode Placement Blood Pressure Non-Invasive BP Device Source Blood Pressure Arm, right upper Location Pulse Oximeter Hand, left Probe Site Antiembolic Devices Antiembolic Devices Sequential compression device, knee high Antiembolic Device Bilateral Location Antiembolic Device [id number] ID Number Scopes Photo/Video Documentation Photo No Video No Last Modified By: ARCHIE BENITEZ RN 11/05/19 09:42:18 [facility] IntraOp Medication Admin Entry 1 Entry 2 Entry 3 Medication/Irrigant Bacitracin 50,00units lidocaine 1% w/ Neosporin 15Gm ointment powder vial epinephrine 1:100,000 - [id number] 30ml vial - [id number] Combo Med List Time Administered Route of ADDED TO NS IRRIGATION LOCAL TOPICAL Administration Dose Dose 39885 20 1 Unit of Measure units ml pkt Volume Administered By HEIDE KAT, HEIDE KAT HANCOCK SMITH, MD-SNU MD-EFREN JEREZ-INT Procedure Irrigation Irrigant Volume In Irrigant Volume Out Last Modified By: ARCHIE BENITEZ, ARCHIE BROWN, ARCHIE BROWN RN 11/05/19 10:00:31 11/05/19 10:00:31 11/05/19 10:00:31 Entry 4 Entry 5 Entry 6 Medication/Irrigant SEALR AQUAMANTYS BIPLR SPNG SURGFOAM thrombin 5000units 6.0-797955 [id number] topical powder - [id number] Combo Med List Time Administered Route of [...] 30ml vancomycin 1Gm vial - vial - [id number] Combo Med List Time Administered Route of LOCAL TOPICAL Administration Dose Dose 1 Unit of Measure gram Volume Administered By HEIDE KAT TUTT, MATTHEW PAIGE, MD-SNU MD-SNU Procedure Irrigation Irrigant Volume In Irrigant Volume Out Last Modified By: ARCHIE BENITEZ, ARCHIE BROWN RN 11/05/19 10:00:31 11/05/19 11:01:15 [facility] IntraOp Medication Admin Audit 11/05/19 11:01:15 Job Putter Up And Ticket Preparer: WASSONSY Modifier: WASSONSY <+> 8 Medication/Irrigant <+> [...] HOSPITAL IntraOp Sign Out Audit 11/05/19 12:08:07 Job Putter Up And Ticket Preparer: NIKI Modifier: CARLAICHAMARANDA <+> 1 RN Sign Out Signature Date/Time [...] HOSPITAL IntraOp Skin Prep Audit 11/05/19 09:57:58 Job Putter Up And Ticket Preparer: WASSONSY Modifier: WASSONSY 1 <+> Prep Agents [...] HOSPITAL IntraOp Surgical Procedures Audit 11/05/19 12:01:30 Job Putter Up And Ticket Preparer: BRADYCM Modifier: WASSONSY 1 <*> Procedure Lumbar Fusion Posterior 3 Level 1 <*> Additional Procedure Description (THORACIC FUSION EXTENSION WITH AIRO WITH SCREW AUGMENTATION 11/05/19 11:40:16 Job Putter Up And Ticket Preparer: WASSONSY Modifier: BRADYCM <+> 1 Stop 11/05/19 10:32:50 Job Putter Up And Ticket Preparer: WASSONSY Modifier: WASSONSY 1 <*> Procedure Lumbar Fusion Posterior 3 Level 1 <*> Additional Procedure Description (THORACIC FUSION EXTENSION WITH AIRO) [facility] IntraOp Temp Regulation Devices Entry 1 Temp Regulation Temperature Warm blankets, Forced Regulation Device Air Warming device Temperature 81962 Regulation Device Serial/Unit Number Temperature Upper body [...] Other Fluoroscopy Type Other Site OP SITE Software Tools Build Engineer Name Claribel Monteiro, Vocational Ed Instructor X-Ray and Imaging [employer] AIRO Comment INTRAOPERATAIVE CT SCANNER Last Modified By: ARCHIE BENITEZ RN 11/05/19 10:39:20 Case Comments <None> Finalized By: JUNIE ROWLEY Document Signatures Signed By: ARCHIE BENITEZ RN 11/05/19 12:08 JUNIE ROWLEY 11/06/19 17:47 Unfinalized History Date/Time Username Reason for Unfinalizing Freetext Reason for Unfinalizing 11/06/19 17:39 [facility] Correct Billing Electronically signed by Taryn [facility] Conversion Political Science Professor Cerner at 11/12/2022 9:52 PM CDT documented in this encounter Plan of Treatment Not on file documented as of this encounter Visit Diagnoses Not on filedocumented in this encounter
--- OUTSIDE RECORDS SUMMARY | 2025-07-14 12:42 | XMS_ITS | Encounter Summary ---
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 Role Phone Unavailable Primary Care Provider Unavailabl e Encounter Details Date Type Department Care Team (Late st Contact Info) Description 11/06/2019 Transcribed Document [facility] [place] [facility] [place] [address] ProviderAgnieszka MD [address], [place] [id number] Social History Tobacco Use Types Packs/Day Years Used Date Smoking Tobacco: Never Assessed Sex and Gender Information Value Date Recorded Sex Assigned at Not on file Legal Sex Male 2:38 PM CDT Gender Identity Not on file Sexual Orientation Not on file documented as of this encounter Miscellaneous Notes * [employer] Conversion Note - Historical ProviderMD - 11/06/2019 11:53 AM CDT Patient: SIMBA MAYEN JR Age: 69 years Sex: Male : 1950 Associated Diagnoses: None Author: 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, 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 69yoM with Low Back Pain - R/O Osteo PMH: 12/13 PLIF T10-S1, Parkinson's, 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 11/04 planned revision of T9-T10 Rx Consult: Vancomycin MD: David Hernández Dx: Thoracic Osteo goal trough = 15-20 ID: rBanden wt = 81kg I/O = 858 / 515 NKDA Atb: Vanco / Cefepime (Start 11/01) Labs (Last four charted values) WBC 7.2 (NOV 05) 7.5 (NOV 04) 6.5 (NOV 02) 8.7 (NOV 01) HB L 11.7 (APR 11) 14.7 (OCT 10) L 12.2 (OCT 08) 13.5 (NOV 01) HCT L 36.4 (OCT 11) 49.8 (OCT 10) L 37.6 (OCT 08) 43.0 (NOV 01) Plt 230 (OCT 11) [...] with intraop cultures Thank You, Nate Calles, FadyD PGY1 Cycle Specialist Pager: [phone], Ext. [phone] documented in this encounter Plan of Treatment Not on file documented as of this encounter Visit Diagnoses Not on filedocumented in this encounter
--- OUTSIDE RECORDS SUMMARY | 2025-07-14 12:42 | XMS_ITS | Encounter Summary ---
Author Organization [employer] ([place], [place], [place], [place], [place]) Address [address] [place] [address] Care Team Providers Care Rectifying Attendant Name Role Phone Unavailable Primary Care Provider Unavailabl e Encounter Details Date Type Department Care Team (Late st Contact Info) Description 12/16/2018 Transcribed Document [facility] [place] [facility] [place] [address] ProviderAgnieszka MD [address], [place] [phone] Social History Tobacco Use Types Packs/Day Years [...] Source : Measured Height Entry Format : [place] Height, Feet : 5 ft(Converted to: 152 [...] Body Mass Index : 60.6 kg/m2 (>HHI) [place] Body Weight : 70 kg MILTON GAMEZ [...] #2 Relationship : , Primary Language : Vietnamese Communication Barrier : None MILTON GAMEZ RN [...]
--- OUTSIDE RECORDS SUMMARY | 2025-07-14 12:42 | XMS_ITS | Encounter Summary ---
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
[2025-07-14 13:05] VITALS: BP 128/79; PULSE 80; RESP 18; O2SAT 98
[2025-07-14] MEDS: SODIUM CHLORIDE 0.9% 10ML FLUSH SYRINGE 10 ML IV (14:54)
== END 2025-07-14 23:59 | disposition home or self-care (01) ==
LOC: INF 12:11
PROVIDERS: PCP Family Medicine; Visit Provider Physician Assistant
DX: K51.90 Ulcerative colitis, unspecified, without complications (principal)
CPT/HCPCS: 96413; J3380; J7050